=== PATIENT | male | born 1975 | race American Indian/Alaskan Native ===

== ENCOUNTER 2018-10-10 14:46 | Inpatient (IN) | payer MEDICAID, OTHER ==
[2018-10-10] MEDS ORDERED: NORMODYNE IV ONE (15:10)
[2018-10-10 15:14] LABS: Hematocrit 24.9 % (35.5-45.6); Hemoglobin 8.1 gm/dl (11.8-15.2); Mean Corpuscular HGB Conc 33 % (32-34); Mean Corpuscular Volume 105 fl (84-94); Red Blood Count 2.38 M/mm3 (3.65-5.03)
--- NOTE | 2018-10-10 15:17 | Emergency Department Report ---
ED Neuro Deficit HPI - General Chief Complaint: Neuro Symptoms/Deficit Stated Complaint: POSSIBLE STROKE Time Seen by Provider: 10/10/18 14:47 Source: EMS Mode of arrival: Stretcher Limitations: Other - History of Present Illness Initial Comments: Mr. Shelley is a 42-year-old male with history of CVA, hypertension presents with altered mental status difficulty with speech. Patient is able to say him name. Able to say yes or no. Hx of HTN, Hx of CVA 6 months ago. Hx otherwise limited. Presumed to be last normal 15 minutes prior to arrival 2:30 pm Significant other came to the bedside. He is able to give history. Patient's mother was in the home. Mother told SO that Mr. Jimenez did not look well. His eyes were bulging. He has persistent speech difficulty and facial droop after being treated for CVA at [facility]. Has as history of HIV and hypertension for which he does not take any medications. He does smoke tobacco. He does smoke marijuana. -: This morning, unknown Location: speech, other (face) History of same: Yes Place: home Severity: severe Context: sudden onset Associated Symptoms: other (patient unable to provide information) - Related Data Home Medications: Home Medications Medication Instructions Recorded Confirmed Last Taken Acetaminophen [Tylenol] 1,000 mg PO Q6HR 10/10/18 10/10/18 Unknown Amlodipine Besylate [Norvasc] 10 mg PO QDAY 10/10/18 10/10/18 Unknown Aspirin [Adult Aspirin] 81 mg PO DAILY 10/10/18 10/10/18 Unknown Atorvastatin [Lipitor Tab] 80 mg PO DAILY 10/10/18 10/10/18 Unknown Losartan [Cozaar] 100 mg PO QDAY 10/10/18 10/10/18 Unknown Multivitamin [Multiple Vitamins] 1 each PO DAILY 10/10/18 10/10/18 Unknown hydroCHLOROthiazide [HCTZ] 25 mg PO QDAY 10/10/18 10/10/18 Unknown Allergies/Adverse Reactions: Allergies Allergy/AdvReac Type Severity Reaction Status Date / Time Sulfa (Sulfonamide Allergy Unknown Verified 10/10/18 16:54 Antibiotics) ED Review of Systems ROS: Stated complaint: POSSIBLE STROKE Other details as noted in HPI Comment: Unobtainable due to pts medical conditions (severe respiratory distress) ED Past Medical Hx - Past Medical History Previous Medical History?: Yes Hx Hypertension: Yes Hx CVA: Yes Hx HIV: Yes - Surgical History Additional Surgical History: abdominal surgery - Social History Smoking Status: Current Every Day Smoker Substance Use Type: Alcohol, Marijuana - Medications Home Medications: Home Medications Medication Instructions Recorded Confirmed Last Taken Type Acetaminophen [Tylenol] 1,000 mg PO Q6HR 10/10/18 10/10/18 Unknown History Amlodipine Besylate [Norvasc] 10 mg PO QDAY 10/10/18 10/10/18 Unknown History Aspirin [Adult Aspirin] 81 mg PO DAILY 10/10/18 10/10/18 Unknown History Atorvastatin [Lipitor Tab] 80 mg PO DAILY 10/10/18 10/10/18 Unknown History Losartan [Cozaar] 100 mg PO QDAY 10/10/18 10/10/18 Unknown History Multivitamin [Multiple Vitamins] 1 each PO DAILY 10/10/18 10/10/18 Unknown History hydroCHLOROthiazide [HCTZ] 25 mg PO QDAY 10/10/18 10/10/18 Unknown History ED Neuro Physical Exam - General Limitations: Altered Mental Status, Other General appearance: in distress (+WOB speech hesitation) Suspected Stroke: Yes - Head Head exam: Present: atraumatic, normocephalic - Eye Eye exam: Present: normal appearance Pupils: Present: normal accommodation - ENT ENT exam: Present: mucous membranes dry, other (dried blood on mouth) - Neck Neck exam: Present: normal inspection, full ROM - Respiratory Respiratory exam: Present: respiratory distress, decreased breath sounds. Absent: wheezes, rales, rhonchi - Cardiovascular Cardiovascular Exam: Present: normal rhythm, tachycardia. Absent: systolic murmur, diastolic murmur - GI/Abdominal GI/Abdominal exam: Present: soft, other (abdominal central large scar). Absent: distended, tenderness, guarding, rebound - Neurological Exam Neurological exam: Present: other (odd affect, ) - NIHSS Assessment Interval: Baseline 1a. Level of Consciousness: arousable/minor stimuli 1b. LOC Questions: answers 1 question correctly 1c. LOC Commands: performs tasks correctly 2. Best Gaze: normal 3. Visual: no visual loss 4. Facial Palsy: partial paralysis 5b. Motor Arm Right: drift 5a. Motor Arm Left: drift 6a. Motor Leg Left: drift 6b. Motor Leg Right: drift 7. Limb Ataxia: absent 8. Sensory: normal 9. Best Language: mild/moderate aphasia 10. Dysarthria: mild/moderate dysarthria 11. Extinction/Inattention: no abnormality Total Score: 10 Stroke Severity: Moderate Stroke - Psychiatric Psychiatric exam: Present: anxious, other (odd affect) - Skin Skin exam: Present: dry ED Course Vital Signs 10/10/18 10/10/18 10/10/18 15:06 15:35 15:45 Temperature Pulse Rate 138 H 87 Respiratory 45 H 39 H Rate Blood Pressure 236/167 Blood Pressure [Right] O2 Sat by Pulse 100 100 Oximetry 10/10/18 10/10/18 10/10/18 15:57 16:00 16:15 Temperature 98.9 F Pulse Rate 89 91 H 95 H Respiratory 24 28 H 39 H Rate Blood Pressure 149/113 158/118 Blood Pressure 148/107 [Right] O2 Sat by Pulse 100 100 100 Oximetry 10/10/18 10/10/18 10/10/18 16:30 16:45 17:00 Temperature Pulse Rate 99 H 103 H 104 H Respiratory 42 H 44 H 37 H Rate Blood Pressure 159/122 164/127 165/118 Blood Pressure [Right] O2 Sat by Pulse 100 100 Oximetry 10/10/18 10/10/18 17:15 17:30 Temperature Pulse Rate 106 H 108 H Respiratory 35 H 37 H Rate Blood Pressure 161/125 160/115 Blood Pressure [Right] O2 Sat by Pulse 100 100 Oximetry - Intubation Time Out Performed: Yes Sedative: Etomidate Paralytic: Rocuronium Laryngoscope: Solo Size: 4 ET Tube Size: 7.5 Tube Secured Depth (cm): 22 Tube Secured Location: lips Tube Placement Confirmation: visualized tube passing t, equal breath sounds bilat, no breath sounds over epi, confirmation by capnometr Patient Tolerated Procedure: well Intubation Complications: none - Lab Data Result diagrams: 10/10/18 15:02 10/10/18 15:02 Lab Results 10/10/18 10/10/18 10/10/18 Range/Units 15:02 15:02 15:02 WBC 9.3 (4.5-11.0) K/mm3 RBC 2.38 L (3.65-5.03) M/mm3 Hgb 8.1 L (11.8-15.2) gm/dl Hct 24.9 L (35.5-45.6) % MCV 105 H (84-94) fl MCH 34 H (28-32) pg MCHC 33 (32-34) % RDW 21.4 H (13.2-15.2) % Plt Count 20 L (140-440) K/mm3 Add Manual Diff Complete Total Counted 100 Seg Neuts % (Manual) 84.0 H (40.0-70.0) % Band Neutrophils % 0 % Lymphocytes % (Manual) 8.0 L (13.4-35.0) % Reactive Lymphs % (Man) 0 % Monocytes % (Manual) 7.0 (0.0-7.3) % Eosinophils % (Manual) 1.0 (0.0-4.3) % Basophils % (Manual) 0 (0.0-1.8) % Metamyelocytes % 0 % Myelocytes % 0 % Promyelocytes % 0 % Blast Cells % 0 % Nucleated RBC % Not Reportable Seg Neutrophils # Man 7.8 H (1.8-7.7) K/mm3 Band Neutrophils # 0.0 K/mm3 Lymphocytes # (Manual) 0.7 L (1.2-5.4) K/mm3 Abs React Lymphs (Man) 0.0 K/mm3 Monocytes # (Manual) 0.7 (0.0-0.8) K/mm3 Eosinophils # (Manual) 0.1 (0.0-0.4) K/mm3 Basophils # (Manual) 0.0 (0.0-0.1) K/mm3 Metamyelocytes # 0.0 K/mm3 Myelocytes # 0.0 K/mm3 Promyelocytes # 0.0 K/mm3 Blast Cells # 0.0 K/mm3 WBC Morphology Not Reportable Hypersegmented Neuts Not Reportable Hyposegmented Neuts Not Reportable Hypogranular Neuts Not Reportable Smudge Cells Not Reportable Toxic Granulation Not Reportable Toxic Vacuolation Not Reportable Dohle Bodies Not Reportable Pelger-Huet Anomaly Not Reportable Kartik Rods Not Reportable Platelet Estimate Appears decreased Clumped Platelets Not Reportable Plt Clumps, EDTA Not Reportable Large Platelets Not Reportable Giant Platelets Not Reportable Platelet Satelliting Not Reportable Plt Morphology Comment Not Reportable RBC Morphology Not Reportable Dimorphic RBCs Not Reportable Polychromasia Not Reportable Hypochromasia Not Reportable Poikilocytosis 1+ Anisocytosis 1+ Microcytosis Not Reportable Macrocytosis 1+ Spherocytes Few Pappenheimer Bodies Not Reportable Sickle Cells Not Reportable Target Cells Not Reportable Tear Drop Cells Not Reportable Ovalocytes Not Reportable Helmet Cells Not Reportable [place] Bodies Not Reportable [place] Rings Not Reportable [place] Cells Not Reportable Bite Cells Not Reportable Crenated Cell Not Reportable Elliptocytes Not Reportable Acanthocytes (Spur) Not Reportable Rouleaux Not Reportable Hemoglobin C Crystals Not Reportable Schistocytes Few Malaria parasites Not Reportable Jv Bodies Not Reportable Hem Pathologist Commnt No PT 16.2 H (12.2-14.9) Sec. INR 1.22 H (0.87-1.13) APTT 27.9 (24.2-36.6) Sec. Thrombin Time (15.1-19.6) Sec. POC ABG pH (7.35-7.45) POC ABG pCO2 (35-45) POC ABG pO2 (80-105) POC ABG HCO3 POC ABG Total CO2 POC ABG O2 Sat POC ABG Base Excess FiO2 % Sodium 136 L (137-145) mmol/L Potassium 3.7 (3.6-5.0) mmol/L Chloride 88.2 L (98-107) mmol/L Carbon Dioxide 8 L* (22-30) mmol/L Anion Gap 44 mmol/L BUN 70 H (9-20) mg/dL Creatinine 5.6 H (0.8-1.5) mg/dL Estimated GFR 14 ml/min BUN/Creatinine Ratio 13 % Glucose 331 H (75-100) mg/dL POC Glucose (70-105) Lactic Acid (0.7-2.0) mmol/L Calcium 9.9 (8.4-10.2) mg/dL Total Bilirubin (0.1-1.2) mg/dL Direct Bilirubin (0-0.2) mg/dL Indirect Bilirubin mg/dL AST (5-40) units/L ALT (7-56) units/L Alkaline Phosphatase (35-129) units/L Ammonia (25-60) umol/L Lactate Dehydrogenase (91-180) units/L Troponin T 0.298 H* (0.00-0.029) ng/mL NT-Pro-B Natriuret Pep (0-450) pg/mL Total Protein (6.3-8.2) g/dL Albumin (3.9-5) g/dL Albumin/Globulin Ratio % Triglycerides 329 H (2-149) mg/dL Cholesterol 234 H (50-199) mg/dL LDL Cholesterol Direct 139 H (50-130) mg/dL HDL Cholesterol 42 (40-59) mg/dL Cholesterol/HDL Ratio 5.57 % Blood Type Antibody Screen 10/10/18 10/10/18 10/10/18 Range/Units 15:02 15:05 15:29 WBC (4.5-11.0) K/mm3 RBC (3.65-5.03) M/mm3 Hgb (11.8-15.2) gm/dl Hct (35.5-45.6) % MCV (84-94) fl MCH (28-32) pg MCHC (32-34) % RDW (13.2-15.2) % Plt Count (140-440) K/mm3 Add Manual Diff Total Counted Seg Neuts % (Manual) (40.0-70.0) % Band Neutrophils % % Lymphocytes % (Manual) (13.4-35.0) % Reactive Lymphs % (Man) % Monocytes % (Manual) (0.0-7.3) % Eosinophils % (Manual) (0.0-4.3) % Basophils % (Manual) (0.0-1.8) % Metamyelocytes % % Myelocytes % % Promyelocytes % % Blast Cells % % Nucleated RBC % Seg Neutrophils # Man (1.8-7.7) K/mm3 Band Neutrophils # K/mm3 Lymphocytes # (Manual) (1.2-5.4) K/mm3 Abs React Lymphs (Man) K/mm3 Monocytes # (Manual) (0.0-0.8) K/mm3 Eosinophils # (Manual) (0.0-0.4) K/mm3 Basophils # (Manual) (0.0-0.1) K/mm3 Metamyelocytes # K/mm3 Myelocytes # K/mm3 Promyelocytes # K/mm3 Blast Cells # K/mm3 WBC Morphology Hypersegmented Neuts Hyposegmented Neuts Hypogranular Neuts Smudge Cells Toxic Granulation Toxic Vacuolation Dohle Bodies Pelger-Huet Anomaly Kartik Rods Platelet Estimate Clumped Platelets Plt Clumps, EDTA Large Platelets Giant Platelets Platelet Satelliting Plt Morphology Comment RBC Morphology Dimorphic RBCs Polychromasia Hypochromasia Poikilocytosis Anisocytosis Microcytosis Macrocytosis Spherocytes Pappenheimer Bodies Sickle Cells Target Cells Tear Drop Cells Ovalocytes Helmet Cells [place] Bodies [place] Rings Jani Cells Bite Cells Crenated Cell Elliptocytes Acanthocytes (Spur) Rouleaux Hemoglobin C Crystals Schistocytes Malaria parasites Jv Bodies Hem Pathologist Commnt PT (12.2-14.9) Sec. INR (0.87-1.13) APTT (24.2-36.6) Sec. Thrombin Time 16.9 (15.1-19.6) Sec. POC ABG pH (7.35-7.45) POC ABG pCO2 (35-45) POC ABG pO2 (80-105) POC ABG HCO3 POC ABG Total CO2 POC ABG O2 Sat POC ABG Base Excess FiO2 % Sodium (137-145) mmol/L Potassium (3.6-5.0) mmol/L Chloride (98-107) mmol/L Carbon Dioxide (22-30) mmol/L Anion Gap mmol/L BUN (9-20) mg/dL Creatinine (0.8-1.5) mg/dL Estimated GFR ml/min BUN/Creatinine Ratio % Glucose (75-100) mg/dL POC Glucose 274 H (70-105) Lactic Acid (0.7-2.0) mmol/L Calcium (8.4-10.2) mg/dL Total Bilirubin (0.1-1.2) mg/dL Direct Bilirubin (0-0.2) mg/dL Indirect Bilirubin mg/dL AST (5-40) units/L ALT (7-56) units/L Alkaline Phosphatase (35-129) units/L Ammonia (25-60) umol/L Lactate Dehydrogenase (91-180) units/L Troponin T (0.00-0.029) ng/mL NT-Pro-B Natriuret Pep (0-450) pg/mL Total Protein (6.3-8.2) g/dL Albumin (3.9-5) g/dL Albumin/Globulin Ratio % Triglycerides (2-149) mg/dL Cholesterol (50-199) mg/dL LDL Cholesterol Direct (50-130) mg/dL HDL Cholesterol (40-59) mg/dL Cholesterol/HDL Ratio % Blood Type A POSITIVE Antibody Screen Negative 10/10/18 10/10/18 10/10/18 Range/Units 15:42 15:42 15:42 WBC (4.5-11.0) K/mm3 RBC (3.65-5.03) M/mm3 Hgb (11.8-15.2) gm/dl Hct (35.5-45.6) % MCV (84-94) fl MCH (28-32) pg MCHC (32-34) % RDW (13.2-15.2) % Plt Count (140-440) K/mm3 Add Manual Diff Total Counted Seg Neuts % (Manual) (40.0-70.0) % Band Neutrophils % % Lymphocytes % (Manual) (13.4-35.0) % Reactive Lymphs % (Man) % Monocytes % (Manual) (0.0-7.3) % Eosinophils % (Manual) (0.0-4.3) % Basophils % (Manual) (0.0-1.8) % Metamyelocytes % % Myelocytes % % Promyelocytes % % Blast Cells % % Nucleated RBC % Seg Neutrophils # Man (1.8-7.7) K/mm3 Band Neutrophils # K/mm3 Lymphocytes # (Manual) (1.2-5.4) K/mm3 Abs React Lymphs (Man) K/mm3 Monocytes # (Manual) (0.0-0.8) K/mm3 Eosinophils # (Manual) (0.0-0.4) K/mm3 Basophils # (Manual) (0.0-0.1) K/mm3 Metamyelocytes # K/mm3 Myelocytes # K/mm3 Promyelocytes # K/mm3 Blast Cells # K/mm3 WBC Morphology Hypersegmented Neuts Hyposegmented Neuts Hypogranular Neuts Smudge Cells Toxic Granulation Toxic Vacuolation Dohle Bodies Pelger-Huet Anomaly Kartik Rods Platelet Estimate Clumped Platelets Plt Clumps, EDTA Large Platelets Giant Platelets Platelet Satelliting Plt Morphology Comment RBC Morphology Dimorphic RBCs Polychromasia Hypochromasia Poikilocytosis Anisocytosis Microcytosis Macrocytosis Spherocytes Pappenheimer Bodies Sickle Cells Target Cells Tear Drop Cells Ovalocytes Helmet Cells [place] Bodies [place] Rings [place] Cells Bite Cells Crenated Cell Elliptocytes Acanthocytes (Spur) Rouleaux Hemoglobin C Crystals Schistocytes Malaria parasites Jv Bodies Hem Pathologist Commnt PT (12.2-14.9) Sec. INR (0.87-1.13) APTT (24.2-36.6) Sec. Thrombin Time (15.1-19.6) Sec. POC ABG pH (7.35-7.45) POC ABG pCO2 (35-45) POC ABG pO2 (80-105) POC ABG HCO3 POC ABG Total CO2 POC ABG O2 Sat POC ABG Base Excess FiO2 % Sodium (137-145) mmol/L Potassium (3.6-5.0) mmol/L Chloride (98-107) mmol/L Carbon Dioxide (22-30) mmol/L Anion Gap mmol/L BUN (9-20) mg/dL Creatinine (0.8-1.5) mg/dL Estimated GFR ml/min BUN/Creatinine Ratio % Glucose (75-100) mg/dL POC Glucose (70-105) Lactic Acid 17.90 H* (0.7-2.0) mmol/L Calcium (8.4-10.2) mg/dL Total Bilirubin 1.50 H (0.1-1.2) mg/dL Direct Bilirubin 0.4 H (0-0.2) mg/dL Indirect Bilirubin 1.1 mg/dL AST 105 H (5-40) units/L ALT 17 (7-56) units/L Alkaline Phosphatase 99 (35-129) units/L Ammonia 50.0 (25-60) umol/L Lactate Dehydrogenase (91-180) units/L Troponin T (0.00-0.029) ng/mL NT-Pro-B Natriuret Pep 43210 H (0-450) pg/mL Total Protein 9.2 H (6.3-8.2) g/dL Albumin 4.4 (3.9-5) g/dL Albumin/Globulin Ratio 0.9 % Triglycerides (2-149) mg/dL Cholesterol (50-199) mg/dL LDL Cholesterol Direct (50-130) mg/dL HDL Cholesterol (40-59) mg/dL Cholesterol/HDL Ratio % Blood Type Antibody Screen 10/10/18 10/10/18 10/10/18 Range/Units 16:22 16:54 17:08 WBC (4.5-11.0) K/mm3 RBC (3.65-5.03) M/mm3 Hgb (11.8-15.2) gm/dl Hct (35.5-45.6) % MCV (84-94) fl MCH (28-32) pg MCHC (32-34) % RDW (13.2-15.2) % Plt Count (140-440) K/mm3 Add Manual Diff Total Counted Seg Neuts % (Manual) (40.0-70.0) % Band Neutrophils % % Lymphocytes % (Manual) (13.4-35.0) % Reactive Lymphs % (Man) % Monocytes % (Manual) (0.0-7.3) % Eosinophils % (Manual) (0.0-4.3) % Basophils % (Manual) (0.0-1.8) % Metamyelocytes % % Myelocytes % % Promyelocytes % % Blast Cells % % Nucleated RBC % Seg Neutrophils # Man (1.8-7.7) K/mm3 Band Neutrophils # K/mm3 Lymphocytes # (Manual) (1.2-5.4) K/mm3 Abs React Lymphs (Man) K/mm3 Monocytes # (Manual) (0.0-0.8) K/mm3 Eosinophils # (Manual) (0.0-0.4) K/mm3 Basophils # (Manual) (0.0-0.1) K/mm3 Metamyelocytes # K/mm3 Myelocytes # K/mm3 Promyelocytes # K/mm3 Blast Cells # K/mm3 WBC Morphology Hypersegmented Neuts Hyposegmented Neuts Hypogranular Neuts Smudge Cells Toxic Granulation Toxic Vacuolation Dohle Bodies Pelger-Huet Anomaly Kartik Rods Platelet Estimate Clumped Platelets Plt Clumps, EDTA Large Platelets Giant Platelets Platelet Satelliting Plt Morphology Comment RBC Morphology Dimorphic RBCs Polychromasia Hypochromasia Poikilocytosis Anisocytosis Microcytosis Macrocytosis Spherocytes Pappenheimer Bodies Sickle Cells Target Cells Tear Drop Cells Ovalocytes Helmet Cells [place] Bodies [place] Rings Jani Cells Bite Cells Crenated Cell Elliptocytes Acanthocytes (Spur) Rouleaux Hemoglobin C Crystals Schistocytes Malaria parasites Jv Bodies Hem Pathologist Commnt PT (12.2-14.9) Sec. INR (0.87-1.13) APTT (24.2-36.6) Sec. Thrombin Time (15.1-19.6) Sec. POC ABG pH 7.374 (7.35-7.45) POC ABG pCO2 9.0 L (35-45) POC ABG pO2 140 H (80-105) POC ABG HCO3 5.3 POC ABG Total CO2 6 POC ABG O2 Sat 99 POC ABG Base Excess -20 FiO2 21 % Sodium (137-145) mmol/L Potassium (3.6-5.0) mmol/L Chloride (98-107) mmol/L Carbon Dioxide (22-30) mmol/L Anion Gap mmol/L BUN (9-20) mg/dL Creatinine (0.8-1.5) mg/dL Estimated GFR ml/min BUN/Creatinine Ratio % Glucose (75-100) mg/dL POC Glucose (70-105) Lactic Acid 14.80 H* (0.7-2.0) mmol/L Calcium (8.4-10.2) mg/dL Total Bilirubin (0.1-1.2) mg/dL Direct Bilirubin (0-0.2) mg/dL Indirect Bilirubin mg/dL AST (5-40) units/L ALT (7-56) units/L Alkaline Phosphatase (35-129) units/L Ammonia (25-60) umol/L Lactate Dehydrogenase 2342 H (91-180) units/L Troponin T (0.00-0.029) ng/mL NT-Pro-B Natriuret Pep (0-450) pg/mL Total Protein (6.3-8.2) g/dL Albumin (3.9-5) g/dL Albumin/Globulin Ratio % Triglycerides (2-149) mg/dL Cholesterol (50-199) mg/dL LDL Cholesterol Direct (50-130) mg/dL HDL Cholesterol (40-59) mg/dL Cholesterol/HDL Ratio % Blood Type Antibody Screen 10/10/18 17:56 EKG obtained 1506 Rate 140 bpm sinus tachycardia normal axis normal intervals LVH with repolarization abnormality ST elevation in leads V2 V3 - Medical Decision Making Mr. George presents with acute altered mental status and respiratory distress. With persistent stroke symptoms and limited history, code stroke was initiated. Teleneurologist Dr Hill graciously evaluated patient. After initial CT scan it was obvious the patient had a metabolic/infectious process as the cause of his symptoms. With history of previous stroke patient has persistent facial paralysis and dysarthria. Patient has acute metabolic encephalopathy with uremia, acute kidney injury, severe anion gap metabolic acidosis with lactic acidosis. Consideration of sepsis leading to renal failure vs acute on chronic kidney injury with hx of severe hypertension and cardiovascular disease Will treat for sepsis with SIRS evident. IVF and broad spectrum antibiotics initiated in the ED. Notable labs include BNP 70,000, troponin 0.29 markedly elevated BUN/creatinine severely low bicarbonate Due to severe work of breathing and decreased responsiveness, Mr. Jimenez was intubated during the ED course. Admitted to ICU in guarded condtion. Critical Care Time: Yes Critical care time in (mins) excluding proc time.: 60 Critical care attestation.: If time is entered above; I have spent that time in minutes in the direct care of this critically ill patient, excluding procedure time. 60 minutes of critical care time excluding procedures were used in the care of the patient. Patient required multiple assessments and interventions. I reviewed the electronic medical record. I spoke with consultants involved in the care of the patient. ED Disposition Clinical Impression: Sepsis, Acute kidney injury, Lactic acidosis, Metabolic acidosis, Hypertensive emergency, HIV (human immunodeficiency virus infection), History of CVA (cerebrovascular accident), Acute respiratory failure Disposition: 09 OP ADMIT IP TO THIS HOSP Is pt being admited?: Yes Does the pt Need Aspirin: No Condition: Stable
[2018-10-10 15:30] LABS: INR 1.22 (0.87-1.13); Partial Thromboplastin Time 27.9 Sec. (24.2-36.6)
[2018-10-10 15:41] LABS: Red Cell Distribution Width 21.4 % (13.2-15.2)
[2018-10-10 15:46] LABS: Calcium 9.9 mg/dL (8.4-10.2)
[2018-10-10 15:57] LABS: Basophils % (Manual) 0 % (0.0-1.8); Total Cells Counted 100
[2018-10-10 16:02] LABS: Platelet Estimate Appears Decreased
[2018-10-10 16:03] LABS: Anisocytosis 1+; Macrocytosis 1+; Poikilocytosis 1+; Schistocytes Few; Spherocytes Few
[2018-10-10 16:04] LABS: Platelet Count 20 K/mm3 (140-440)
[2018-10-10 16:19] LABS: Chol/HDL Ratio 5.57 %
[2018-10-10 16:26] LABS: Albumin 4.4 g/dL (3.9-5); Bilirubin,Direct 0.4 mg/dL (0-0.2)
[2018-10-10] MEDS ORDERED: NACL 0.9% 1000 ML IV ONE (16:48)
[2018-10-10] MEDS ORDERED: TO ASSIGN FLUID IV ONE (16:51)
[2018-10-10] MEDS ORDERED: BACTRIM IV ONE (16:51)
[2018-10-10] MEDS ORDERED: ZOSYN/NS 4.5GM/100ML 4.5 GM/100 ML VIAL IV ONE (16:56)
[2018-10-10] MEDS ORDERED: LEVAQUIN 750MG/150ML 750 MG/150 ML BAG IV SCH (17:00)
--- NOTE | 2018-10-10 17:42 | Cat Scan Report ---
FINAL REPORT EXAM: CT HEAD/BRAIN WO CON HISTORY: neuro deficits < 6hrs or sx present upon awakening TECHNIQUE: CT examination of the head without IV contrast PRIORS: None. FINDINGS: There are multiple regions of encephalomalacia and volume loss suggesting chronic infarcts. These are noted in the anterior basal ganglia bilaterally as well as the superior middle left basal ganglia ex tending superiorly into the left periventricular white matter. The left anterior basal ganglia infarc t extends into the left external capsule. No acute air-fluid level visualized in the included air-filled sinuses. Bone windows demonstrate no acute fracture. The brain is without mass, mass effect, or hemorrhage. No definite CT evidence of acute infarct. Above described infarcts appear chronic but could be confir med with follow-up MRI. There is no extra-axial intracranial bleed, brain bleed, or midline shift. The ventricles and sulci are age-appropriate. IMPRESSION: Bilateral infarcts appear chronic which could be confirmed with follow-up MRI. No definite CT evidenc e of acute infarction. Russell operation applications support lead verbally Relayed results to Dr. Lipscomb at 3:11PM EST on 10/10/18
[2018-10-10] MEDS ORDERED: BACTRIM 350 MG in D5W 500 ML IV ONE (17:45)
[2018-10-10] MEDS ORDERED: ARTIFICIAL TEARS OPHTH OINT OU PRN (17:53)
[2018-10-10] MEDS ORDERED: VASELINE LIP THERAPY TP PRN (17:53)
[2018-10-10] MEDS ORDERED: DIPRIVAN 10 MG/ML 1,000 MG/100 ML BOTTLE IV ONE (17:57)
--- NOTE | 2018-10-10 17:59 | XRay Report ---
FINAL REPORT EXAM: XR CHEST 1V AP HISTORY: tachypnea TECHNIQUE: Frontal portable examination of the chest PRIORS: None FINDINGS: Oblique patient position limits the examination. Suggestion of spinal curvature with left apex in upp er thoracic spine and right apex in lumbar spine. Left CP angle not completely imaged, limiting the examination for detection of left pleural effusion. The cardiac silhouette size is slightly enlarged without evidence of vascular congestion or pulmonary edema. There is no pulmonary consolidation, right pleural effusion, or pneumothorax. The regional skeleton is without acute pathology. IMPRESSION: No acute pulmonary disease in the visualized chest Slight cardiomegaly
[2018-10-10] MEDS ORDERED: LEVAQUIN 750MG/150ML 750 MG/150 ML BAG IV ONE (18:00)
[2018-10-10] MEDS ORDERED: ZEMURON IV ONE ×2 (18:05→21:15)
[2018-10-10] MEDS ORDERED: DIPRIVAN 10 MG/ML IV ONE (18:06)
[2018-10-10] MEDS ORDERED: AMIDATE IV ONE ×2 (18:06→21:15)
[2018-10-10] MEDS: DIPRIVAN 10 MG/ML 1,000 MG/100 ML BOTTLE IV SCH (18:07)
--- NOTE | 2018-10-10 18:08 | History and Physical Report ---
History of Present Illness Chief complaint: confused History of present illness: 43 YO Male with HIV, HTN, CVA, Nicotine Dependence, Malnutrition presents to ED for evaluation. Pt is confused/lethargic and unable to provide history. Pt history taken from ED staff, as well as family. Pt reported to have increased confusion this morning. Pt transported to [facility] for further care and evaluation. Pt seen and evaluated in ED and found to be in distress and unable to protect his airway. Pt intubated at time of my exam. Pt found to have Acute Respiratory Failure, Encephalopathy, Acidosis. Pt initiated on Sepsis protocol and admitted to ICU. Pulmonary team consulted in ED. NO reports of feve,r chills, CP, palpitations, NVD, Syncope, Trauma, Productive cough, hemoptysis, or recent ill contacts. Past History Past Medical History: HIV/AIDS, hypertension, stroke Past Surgical History: No surgical history, Other (reviewed) Social history: single, smoking. denies: alcohol abuse, prescription drug abuse Family history: hypertension Medications and Allergies Allergies Allergy/AdvReac Type Severity Reaction Status Date / Time Sulfa (Sulfonamide Allergy Unknown Verified 10/10/18 16:54 Antibiotics) Home Medications Medication Instructions Recorded Confirmed Last Taken Type Acetaminophen [Tylenol] 1,000 mg PO Q6HR 10/10/18 10/10/18 Unknown History Amlodipine Besylate [Norvasc] 10 mg PO QDAY 10/10/18 10/10/18 Unknown History Aspirin [Adult Aspirin] 81 mg PO DAILY 10/10/18 10/10/18 Unknown History Atorvastatin [Lipitor Tab] 80 mg PO DAILY 10/10/18 10/10/18 Unknown History Losartan [Cozaar] 100 mg PO QDAY 10/10/18 10/10/18 Unknown History Multivitamin [Multiple Vitamins] 1 each PO DAILY 10/10/18 10/10/18 Unknown History hydroCHLOROthiazide [HCTZ] 25 mg PO QDAY 10/10/18 10/10/18 Unknown History Active Meds: Active Medications Hydrophilic Ointment (Vaseline Lip Therapy) 1 applic TP Q2HR PRN PRN Reason: Dry Lips Trimethoprim/Sulfamethoxazole (350 mg/ Dextrose) 521.875 mls @ 350 mls/hr IV ONCE ONE Stop: 10/10/18 19:14 Levofloxacin/Dextrose (Levaquin 750mg/150ml) 750 mg in 150 mls @ 100 mls/hr IV ONCE ONE Stop: 10/10/18 19:29 Levofloxacin/Dextrose (Levaquin 500mg/100ml) 500 mg in 100 mls @ 100 mls/hr IV Q48H RUBI Propofol (Diprivan 10 Mg/Ml) 1,000 mg in 100 mls @ 2.204 mls/hr IV TITR RUBI; Protocol Last Admin: 10/10/18 18:07 Dose: 5 mcg/kg/min, 2.204 mls/hr Documented by: Multi-Ingred Cream/Lotion/Oil/Oint (Artificial Tears Ophth Oint) 1 applic OU Q4HR PRN PRN Reason: Dry Eye(s) Review of Systems ROS unobtainable: due to endotracheal tube Exam - Constitutional Vitals: Temp Pulse Resp BP Pulse Ox 98.9 F 108 H 37 H 160/115 100 10/10/18 15:57 10/10/18 17:30 10/10/18 17:30 10/10/18 17:30 10/10/18 17:30 General appearance: Present: severe distress - EENT Eyes: Present: miosis - Neck Neck: Present: supple, normal ROM - Respiratory Respiratory effort: labored Respiratory: bilateral: diminished - Cardiovascular Heart Sounds: Present: S1 & S2. Absent: rub, click - Extremities Extremities: pulses symmetrical, No edema Peripheral Pulses: within normal limits - Abdominal General gastrointestinal: Present: soft, non-tender, non-distended, normal bowel sounds Male genitourinary: Present: normal - Integumentary Integumentary: Present: clear, dry, clammy, decreased turgor - Musculoskeletal Musculoskeletal: generalized weakness - Psychiatric Psychiatric: no appropriate mood/affect, no intact judgment & insight, no memory intact - Neurologic Neurologic: CNII-XII intact, moves all extremities, no gait normal Results - Labs CBC & Chem 7: 10/11/18 02:55 10/11/18 03:34 Labs: Abnormal lab results 10/10/18 10/10/18 10/10/18 Range/Units 15:02 15:02 15:02 RBC 2.38 L (3.65-5.03) M/mm3 Hgb 8.1 L (11.8-15.2) gm/dl Hct 24.9 L (35.5-45.6) % MCV 105 H (84-94) fl MCH 34 H (28-32) pg RDW 21.4 H (13.2-15.2) % Plt Count 20 L (140-440) K/mm3 Seg Neuts % (Manual) 84.0 H (40.0-70.0) % Lymphocytes % (Manual) 8.0 L (13.4-35.0) % Seg Neutrophils # Man 7.8 H (1.8-7.7) K/mm3 Lymphocytes # (Manual) 0.7 L (1.2-5.4) K/mm3 PT 16.2 H (12.2-14.9) Sec. INR 1.22 H (0.87-1.13) POC ABG pCO2 (35-45) POC ABG pO2 (80-105) Sodium 136 L (137-145) mmol/L Chloride 88.2 L (98-107) mmol/L Carbon Dioxide 8 L* (22-30) mmol/L BUN 70 H (9-20) mg/dL Creatinine 5.6 H (0.8-1.5) mg/dL Glucose 331 H (75-100) mg/dL POC Glucose (70-105) Lactic Acid (0.7-2.0) mmol/L Total Bilirubin (0.1-1.2) mg/dL Direct Bilirubin (0-0.2) mg/dL AST (5-40) units/L Lactate Dehydrogenase (91-180) units/L Troponin T 0.298 H* (0.00-0.029) ng/mL NT-Pro-B Natriuret Pep (0-450) pg/mL Total Protein (6.3-8.2) g/dL Triglycerides 329 H (2-149) mg/dL Cholesterol 234 H (50-199) mg/dL LDL Cholesterol Direct 139 H (50-130) mg/dL 10/10/18 10/10/18 10/10/18 Range/Units 15:29 15:42 15:42 RBC (3.65-5.03) M/mm3 Hgb (11.8-15.2) gm/dl Hct (35.5-45.6) % MCV (84-94) fl MCH (28-32) pg RDW (13.2-15.2) % Plt Count (140-440) K/mm3 Seg Neuts % (Manual) (40.0-70.0) % Lymphocytes % (Manual) (13.4-35.0) % Seg Neutrophils # Man (1.8-7.7) K/mm3 Lymphocytes # (Manual) (1.2-5.4) K/mm3 PT (12.2-14.9) Sec. INR (0.87-1.13) POC ABG pCO2 (35-45) POC ABG pO2 (80-105) Sodium (137-145) mmol/L Chloride (98-107) mmol/L Carbon Dioxide (22-30) mmol/L BUN (9-20) mg/dL Creatinine (0.8-1.5) mg/dL Glucose (75-100) mg/dL POC Glucose 274 H (70-105) Lactic Acid 17.90 H* (0.7-2.0) mmol/L Total Bilirubin 1.50 H (0.1-1.2) mg/dL Direct Bilirubin 0.4 H (0-0.2) mg/dL AST 105 H (5-40) units/L Lactate Dehydrogenase (91-180) units/L Troponin T (0.00-0.029) ng/mL NT-Pro-B Natriuret Pep 80160 H (0-450) pg/mL Total Protein 9.2 H (6.3-8.2) g/dL Triglycerides (2-149) mg/dL Cholesterol (50-199) mg/dL LDL Cholesterol Direct (50-130) mg/dL 10/10/18 10/10/18 10/10/18 Range/Units 16:22 16:54 17:08 RBC (3.65-5.03) M/mm3 Hgb (11.8-15.2) gm/dl Hct (35.5-45.6) % MCV (84-94) fl MCH (28-32) pg RDW (13.2-15.2) % Plt Count (140-440) K/mm3 Seg Neuts % (Manual) (40.0-70.0) % Lymphocytes % (Manual) (13.4-35.0) % Seg Neutrophils # Man (1.8-7.7) K/mm3 Lymphocytes # (Manual) (1.2-5.4) K/mm3 PT (12.2-14.9) Sec. INR (0.87-1.13) POC ABG pCO2 9.0 L (35-45) POC ABG pO2 140 H (80-105) Sodium (137-145) mmol/L Chloride (98-107) mmol/L Carbon Dioxide (22-30) mmol/L BUN (9-20) mg/dL Creatinine (0.8-1.5) mg/dL Glucose (75-100) mg/dL POC Glucose (70-105) Lactic Acid 14.80 H* (0.7-2.0) mmol/L Total Bilirubin (0.1-1.2) mg/dL Direct Bilirubin (0-0.2) mg/dL AST (5-40) units/L Lactate Dehydrogenase 2342 H (91-180) units/L Troponin T (0.00-0.029) ng/mL NT-Pro-B Natriuret Pep (0-450) pg/mL Total Protein (6.3-8.2) g/dL Triglycerides (2-149) mg/dL Cholesterol (50-199) mg/dL LDL Cholesterol Direct (50-130) mg/dL Assessment and Plan - Patient Problems (1) Sepsis Current Visit: Yes Status: Acute Qualifiers: Sepsis type: sepsis due to unspecified organism Qualified Code(s): A41.9 - Sepsis, unspecified organism Plan to address problem: Pt initiated on sepsis protocol.IV antibiotic therapy,, IVF resuscitation, blood cultures, cbc, cmp, serial lactic acid level, monitor uop q shift, (2) Acute respiratory failure Current Visit: Yes Status: Acute Qualifiers: Respiratory failure complication: hypoxia Qualified Code(s): J96.01 - Acute respiratory failure with hypoxia Plan to address problem: Pt intubated, on vent support, supplemental oxygen, wean vent as tolerated, daily SBT, Sedation holiday, pulmonary team consulted, ABG The high probability of a clinically significant, sudden or life threatening deterioration of the [pulmonary, cardiac, renal, neuro] system(s) required my full and direct attention, intervention and personal management. The aggregate critical care time was [65] minutes. This time is in addition to time spent performing reported procedures but includes the following: [x] Data Review and interpretation [x] Patient assessment and monitoring of vital signs [x] Documentation [x] Medication orders and management (3) Nicotine dependence Current Visit: Yes Status: Acute Qualifiers: Nicotine product type: unspecified Plan to address problem: supportive care, smoking cessation counseling (4) HIV (human immunodeficiency virus infection) Current Visit: Yes Status: Acute Qualifiers: HIV symptom status: symptomatic Qualified Code(s): B20 - Human immunodeficiency virus [HIV] disease Plan to address problem: Continue current therapy, outpatient I/D F/U care, (5) Metabolic acidosis Current Visit: Yes Status: Acute Plan to address problem: IVF resuscitation therapy, repeat bmp, continue supportive care. (6) DVT prophylaxis Current Visit: Yes Status: Acute Plan to address problem: SCD to BLE while in bed
[2018-10-10] MEDS ORDERED: SODIUM CHLORIDE FLUSH SYRINGE 10 ML IV PRN (18:12)
[2018-10-10] MEDS ORDERED: VANCOMYCIN 1,500 MG in NACL 0.9% 500 ML 500 ML IV ONE (18:15)
--- NOTE | 2018-10-10 19:10 | XRay Report ---
FINAL REPORT EXAM: XR CHEST 1V AP HISTORY: ETT placement TECHNIQUE: AP portable view of the chest PRIORS: CXR 10/10/2018 at 2212 hours FINDINGS: Lines, tubes, and devices: Endotracheal tube has been placed terminating 4.5 cm above the hedy. Lungs and pleura: Trachea is normal in position. Lungs are clear of infiltrate, pleural effusion, vas cular congestion, or pneumothorax. No change. Cardiomediastinal silhouette: Cardiac silhouette is borderline prominent but stable. Other: Bony structures are intact. IMPRESSION: Satisfactory ET tube placement. Otherwise no change
[2018-10-10] MEDS: SODIUM CHLORIDE FLUSH SYRINGE 10 ML IV SCH (21:23)
[2018-10-11] MEDS ORDERED: SODIUM BICARBONATE IV ONE (02:38)
[2018-10-11] MEDS ORDERED: SODIUM BICARBONATE IV STA (03:21)
--- NOTE | 2018-10-11 03:27 | XRay Report ---
FINAL REPORT PROCEDURE: XR CHEST 1V AP TECHNIQUE: Chest radiograph anteroposterior view. CPT 93922 HISTORY: follow up respiratory failure COMPARISON: 10/10/2018 FINDINGS: Heart: Normal. Mediastinum/Vessels: Normal. Lungs/Pleural space: Normal. Bony thorax: No acute osseous abnormality. Life support devices: The endotracheal tube ends 3 centimeters above the hedy. A nasogastric tube e nds below the hemidiaphragms. IMPRESSION: There is no evidence of an acute cardiopulmonary process. The endotracheal tube and nasogastric tube are properly positioned..
[2018-10-11 03:31] LABS: Hematocrit 22.9 % (35.5-45.6); Hemoglobin 7.7 gm/dl (11.8-15.2); Mean Corpuscular HGB Conc 34 % (32-34); Mean Corpuscular Volume 98 fl (84-94); Red Blood Count 2.35 M/mm3 (3.65-5.03); Red Cell Distribution Width 19.9 % (13.2-15.2)
[2018-10-11 03:40] LABS: Platelet Count 23 K/mm3 (140-440)
[2018-10-11 03:54] LABS: Albumin 3.4 g/dL (3.9-5); Calcium 7.8 mg/dL (8.4-10.2)
[2018-10-11 04:09] LABS: Calcium 7.9 mg/dL (8.4-10.2)
[2018-10-11 04:28] LABS: Band Neutrophils # (Manual) 0.5 K/mm3; Basophils % (Manual) 0 % (0.0-1.8); Eosinophils % (Manual) 0 % (0.0-4.3); Myelocytes # (Manual) 0.4 K/mm3; Total Cells Counted 100
[2018-10-11 04:29] LABS: Anisocytosis 1+; Burr Cells 2+; Helmet Cells 1+; Ovalocytes 1+; Poikilocytosis 2+; Schistocytes 1+
[2018-10-11 04:31] LABS: Platelet Estimate Appears Decreased
[2018-10-11] MEDS: TYLENOL PO SCH ×3 (05:45→12:22)
--- NOTE | 2018-10-11 09:53 | Progress Note ---
Assessment and Plan Assessment and plan: Acute encephalopathy Neurochecks. consult Neurology Acute resp failure s/p intubated in ED Pulm consulted Vent weaning per protocol HIV/AIDS Details unclear. No previous records available Consult ID Physician for HIV with altered mental status Elevated Creatinine acute vs chronic Baseline unknown Consult Nephrology Metabolic acidosis Start bicarb Thrombocytopenia, currently 23 Monitor Transfuse if less than 20 Hyperkalemia Give kayexalate Hyperlipidemia Hypertension History of stroke Elevated Troponin Likely due to kidney disease Full code status History Interval history: Patient with HIV/AIDS presented with altered mental status, then could not protect airway,intubated in ED Hospitalist Physical - Physical exam Narrative exam: GEN: Not in acute distress, HEENT: Normocephalic, atraumatic, Neck: supple, No JVD Lungs:Clear to auscultation, no wheeze Heart:S1 and S2 regular, no murmurs, rubs or gallop, Abd:soft, non tender, non distended, normal bowel sounds Ext: No edema, no clubbing or cyanosis Neuro:Intubated, sedated - Constitutional Vitals: Temp Pulse Resp BP Pulse Ox 99.4 F 119 H 29 H 160/114 100 10/11/18 08:30 10/11/18 09:00 10/11/18 09:00 10/11/18 09:00 10/11/18 09:00 Results - Labs CBC & Chem 7: 10/11/18 02:55 10/11/18 03:34 Labs: Laboratory Last Values WBC 9.2 K/mm3 (4.5-11.0) 10/11/18 02:55 RBC 2.35 M/mm3 (3.65-5.03) L 10/11/18 02:55 Hgb 7.7 gm/dl (11.8-15.2) L 10/11/18 02:55 Hct 22.9 % (35.5-45.6) L 10/11/18 02:55 MCV 98 fl (84-94) H 10/11/18 02:55 MCH 33 pg (28-32) H 10/11/18 02:55 MCHC 34 % (32-34) 10/11/18 02:55 RDW 19.9 % (13.2-15.2) H 10/11/18 02:55 Plt Count 23 K/mm3 (140-440) L 10/11/18 02:55 Add Manual Diff Complete 10/11/18 02:55 Total Counted 100 10/11/18 02:55 Seg Neuts % (Manual) 75.0 % (40.0-70.0) H 10/11/18 02:55 Band Neutrophils % 5.0 % 10/11/18 02:55 Lymphocytes % (Manual) 11.0 % (13.4-35.0) L 10/11/18 02:55 Reactive Lymphs % (Man) 0 % 10/11/18 02:55 Monocytes % (Manual) 1.0 % (0.0-7.3) 10/11/18 02:55 Eosinophils % (Manual) 0 % (0.0-4.3) 10/11/18 02:55 Basophils % (Manual) 0 % (0.0-1.8) 10/11/18 02:55 Metamyelocytes % 4.0 % 10/11/18 02:55 Myelocytes % 4.0 % 10/11/18 02:55 Promyelocytes % 0 % 10/11/18 02:55 Blast Cells % 0 % 10/11/18 02:55 Nucleated RBC % Not Reportable 10/11/18 02:55 Seg Neutrophils # Man 6.9 K/mm3 (1.8-7.7) 10/11/18 02:55 Band Neutrophils # 0.5 K/mm3 10/11/18 02:55 Lymphocytes # (Manual) 1.0 K/mm3 (1.2-5.4) L 10/11/18 02:55 Abs React Lymphs (Man) 0.0 K/mm3 10/11/18 02:55 Monocytes # (Manual) 0.1 K/mm3 (0.0-0.8) 10/11/18 02:55 Eosinophils # (Manual) 0.0 K/mm3 (0.0-0.4) 10/11/18 02:55 Basophils # (Manual) 0.0 K/mm3 (0.0-0.1) 10/11/18 02:55 Metamyelocytes # 0.4 K/mm3 10/11/18 02:55 Myelocytes # 0.4 K/mm3 10/11/18 02:55 Promyelocytes # 0.0 K/mm3 10/11/18 02:55 Blast Cells # 0.0 K/mm3 10/11/18 02:55 WBC Morphology Not Reportable 10/11/18 02:55 Hypersegmented Neuts Not Reportable 10/11/18 02:55 Hyposegmented Neuts Not Reportable 10/11/18 02:55 Hypogranular Neuts Not Reportable 10/11/18 02:55 Smudge Cells Not Reportable 10/11/18 02:55 Toxic Granulation Not Reportable 10/11/18 02:55 Toxic Vacuolation Not Reportable 10/11/18 02:55 Dohle Bodies Not Reportable 10/11/18 02:55 Pelger-Huet Anomaly Not Reportable 10/11/18 02:55 Kartik Rods Not Reportable 10/11/18 02:55 Platelet Estimate Appears decreased 10/11/18 02:55 Clumped Platelets Not Reportable 10/11/18 02:55 Plt Clumps, EDTA Not Reportable 10/11/18 02:55 Large Platelets Not Reportable 10/11/18 02:55 Giant Platelets Not Reportable 10/11/18 02:55 Platelet Satelliting Not Reportable 10/11/18 02:55 Plt Morphology Comment Not Reportable 10/11/18 02:55 RBC Morphology Not Reportable 10/11/18 02:55 Dimorphic RBCs Not Reportable 10/11/18 02:55 Polychromasia Not Reportable 10/11/18 02:55 Hypochromasia Not Reportable 10/11/18 02:55 Poikilocytosis 2+ 10/11/18 02:55 Anisocytosis 1+ 10/11/18 02:55 Microcytosis Few 10/11/18 02:55 Macrocytosis Not Reportable 10/11/18 02:55 Spherocytes Not Reportable 10/11/18 02:55 Pappenheimer Bodies Not Reportable 10/11/18 02:55 Sickle Cells Not Reportable 10/11/18 02:55 Target Cells Not Reportable 10/11/18 02:55 Tear Drop Cells Not Reportable 10/11/18 02:55 Ovalocytes 1+ 10/11/18 02:55 Helmet Cells 1+ 10/11/18 02:55 Smith-Guys Bodies Not Reportable 10/11/18 02:55 Hale Rings Not Reportable 10/11/18 02:55 Jani Cells 2+ 10/11/18 02:55 Bite Cells Not Reportable 10/11/18 02:55 Crenated Cell Not Reportable 10/11/18 02:55 Elliptocytes Few 10/11/18 02:55 Acanthocytes (Spur) 1+ 10/11/18 02:55 Rouleaux Not Reportable 10/11/18 02:55 Hemoglobin C Crystals Not Reportable 10/11/18 02:55 Schistocytes 1+ 10/11/18 02:55 Malaria parasites Not Reportable 10/11/18 02:55 Jv Bodies Not Reportable 10/11/18 02:55 Hem Pathologist Commnt No 10/11/18 02:55 PT 16.2 Sec. (12.2-14.9) H 10/10/18 15:02 INR 1.22 (0.87-1.13) H 10/10/18 15:02 APTT 27.9 Sec. (24.2-36.6) 10/10/18 15:02 Thrombin Time 16.9 Sec. (15.1-19.6) 10/10/18 15:02 POC ABG pH 7.491 (7.35-7.45) H 10/11/18 05:48 POC ABG pCO2 24.9 (35-45) L 10/11/18 05:48 POC ABG pO2 166 (80-105) H 10/11/18 05:48 POC ABG HCO3 19.1 10/11/18 05:48 POC ABG Total CO2 20 10/11/18 05:48 POC ABG O2 Sat 100 10/11/18 05:48 POC ABG Base Excess -4 10/11/18 05:48 FiO2 40 % 10/11/18 05:48 Sodium 142 mmol/L (137-145) 10/11/18 03:34 Potassium 5.2 mmol/L (3.6-5.0) H 10/11/18 03:34 Chloride 102.6 mmol/L (98-107) 10/11/18 03:34 Carbon Dioxide 16 mmol/L (22-30) L 10/11/18 03:34 Anion Gap 29 mmol/L 10/11/18 03:34 BUN 80 mg/dL (9-20) H 10/11/18 03:34 Creatinine 5.5 mg/dL (0.8-1.5) H 10/11/18 03:34 Estimated GFR 14 ml/min 10/11/18 03:34 BUN/Creatinine Ratio 15 % 10/11/18 03:34 Glucose 63 mg/dL (75-100) L 10/11/18 03:34 POC Glucose 274 (70-105) H 10/10/18 15:29 Lactic Acid 3.80 mmol/L (0.7-2.0) H* 10/11/18 05:47 Calcium 7.9 mg/dL (8.4-10.2) L 10/11/18 03:34 Total Bilirubin 1.90 mg/dL (0.1-1.2) H 10/11/18 02:55 Direct Bilirubin 0.4 mg/dL (0-0.2) H 10/10/18 15:42 Indirect Bilirubin 1.1 mg/dL 10/10/18 15:42 AST 306 units/L (5-40) H 10/11/18 02:55 ALT 89 units/L (7-56) H 10/11/18 02:55 Alkaline Phosphatase 246 units/L (35-129) H 10/11/18 02:55 Ammonia 50.0 umol/L (25-60) 10/10/18 15:42 Lactate Dehydrogenase 2342 units/L (91-180) H 10/10/18 16:54 Troponin T 0.272 ng/mL (0.00-0.029) H* 10/10/18 18:07 NT-Pro-B Natriuret Pep 19937 pg/mL (0-450) H 10/10/18 15:42 Total Protein 6.9 g/dL (6.3-8.2) D 10/11/18 02:55 Albumin 3.4 g/dL (3.9-5) L 10/11/18 02:55 Albumin/Globulin Ratio 1.0 % 10/11/18 02:55 Triglycerides 329 mg/dL (2-149) H 10/10/18 15:02 Cholesterol 234 mg/dL (50-199) H 10/10/18 15:02 LDL Cholesterol Direct 139 mg/dL (50-130) H 10/10/18 15:02 HDL Cholesterol 42 mg/dL (40-59) 10/10/18 15:02 Cholesterol/HDL Ratio 5.57 % 10/10/18 15:02 Blood Type A POSITIVE 10/10/18 15:05 Antibody Screen Negative 10/10/18 15:05
[2018-10-11] MEDS ORDERED: HCTZ PO SCH (10:00)
[2018-10-11] MEDS ORDERED: NON-FORMULARY (Multivitamin [Multiple Vitamins] 1 EACH) PO SCH (10:00)
[2018-10-11] MEDS ORDERED: HALFPRIN EC PO SCH (10:00)
[2018-10-11] MEDS ORDERED: NON-FORMULARY (Losartan [Cozaar] 100 MG) PO SCH (10:00)
[2018-10-11] MEDS ORDERED: NON-FORMULARY (Atorvastatin [Lipitor] 80 MG) PO SCH (10:00)
[2018-10-11] MEDS ORDERED: COZAAR PO SCH (10:00)
[2018-10-11] MEDS: THERAGRAN Tab PO SCH (10:49)
[2018-10-11] MEDS: NORVASC PO SCH (10:49)
[2018-10-11] MEDS: SODIUM CHLORIDE FLUSH SYRINGE 10 ML IV SCH (10:49)
[2018-10-11] MEDS: DIPRIVAN 10 MG/ML 1,000 MG/100 ML BOTTLE IV SCH (10:53)
[2018-10-11] MEDS ORDERED: NACL 0.9% 1000 ML 1,000 ML IV SCH (11:00)
[2018-10-11] MEDS ORDERED: SIMPLE SYRUP FEEDTUBE PRN ×4 (11:33→12:58)
[2018-10-11] MEDS ORDERED: SODIUM BICARBONATE FEEDTUBE PRN ×2 (11:33→12:58)
[2018-10-11] MEDS ORDERED: PANCREAZE DR 10,500 UNIT FEEDTUBE PRN ×2 (11:33→12:58)
--- NOTE | 2018-10-11 12:14 | Consultation ---
History of Present Illness Consult date: 10/11/18 Requesting physician: KATHY POLLARD Reason for consult: other (acute respiratory failure secondary to encephalopathy) History of present illness: 43 y/o male with known HIV but no other medical history at least per report admitted to the ICU after being intubated for acute encephalopathy and concerns for protection of airway. Patient was then started on Diprovan after intubation for tachypnea? This has not helped. Per the nurse, he is more awake and alert off diprovan compared to earlier this am but still does not follow commands. he was found to be in acute renal failure and has not made any urine. No family is currently at bedside but per report, was found down at home and EMS was called. Not intubated until arrival here to the ED. Past History Past Medical History: HIV/AIDS, hypertension, stroke Past Surgical History: No surgical history, Other (reviewed) Social history: single, smoking. denies: alcohol abuse, prescription drug abuse Family history: hypertension Medications and Allergies Allergies Allergy/AdvReac Type Severity Reaction Status Date / Time Sulfa (Sulfonamide Allergy Unknown Verified 10/10/18 16:54 Antibiotics) Home Medications Medication Instructions Recorded Confirmed Last Taken Type Acetaminophen [Tylenol] 1,000 mg PO Q6HR 10/10/18 10/10/18 Unknown History Amlodipine Besylate [Norvasc] 10 mg PO QDAY 10/10/18 10/10/18 Unknown History Aspirin [Adult Aspirin] 81 mg PO DAILY 10/10/18 10/10/18 Unknown History Atorvastatin [Lipitor Tab] 80 mg PO DAILY 10/10/18 10/10/18 Unknown History Losartan [Cozaar] 100 mg PO QDAY 10/10/18 10/10/18 Unknown History Multivitamin [Multiple Vitamins] 1 each PO DAILY 10/10/18 10/10/18 Unknown History hydroCHLOROthiazide [HCTZ] 25 mg PO QDAY 10/10/18 10/10/18 Unknown History Active Meds: Active Medications Acetaminophen (Tylenol) 1,000 mg PO Q6HR [facility] Last Admin: 10/11/18 05:45 Dose: 1,000 mg Documented by: Albuterol (Proventil) 2.5 mg IH Q3HRT PRN PRN Reason: Shortness Of Breath Amlodipine Besylate (Norvasc) 10 mg PO QDAY [facility] Last Admin: 10/11/18 10:49 Dose: 10 mg Documented by: Lipase/Protease/Amylase (Carrie Reed 10,500 Unit) 1 each FEEDTUBE PRN PRN PRN Reason: For Clogged Feeding Tube Atorvastatin Calcium (Lipitor) 80 mg PO QDAY [facility] Last Admin: 10/11/18 10:49 Dose: 80 mg Documented by: Hydrochlorothiazide (Hctz) 25 mg PO QDAY [facility] Last Admin: 10/11/18 10:49 Dose: 25 mg Documented by: Hydrophilic Ointment (Vaseline Lip Therapy) 1 applic TP Q2HR PRN PRN Reason: Dry Lips Levofloxacin/Dextrose (Levaquin 500mg/100ml) 500 mg in 100 mls @ 100 mls/hr IV Q48H RUBI Propofol (Diprivan 10 Mg/Ml) 1,000 mg in 100 mls @ 2.204 mls/hr IV TITR RUBI; Protocol Last Admin: 10/11/18 10:53 Dose: 20 mcg/kg/min, 8.818 mls/hr Documented by: Sodium Chloride (Nacl 0.9% 1000 Ml) 1,000 mls @ 250 mls/hr IV DIRECT [facility] Last Admin: 10/11/18 11:25 Dose: 250 mls/hr Documented by: Losartan Potassium (Cozaar) 100 mg PO QDAY [facility] Last Admin: 10/11/18 10:48 Dose: 100 mg Documented by: Multi-Ingred Cream/Lotion/Oil/Oint (Artificial Tears Ophth Oint) 1 applic OU Q4HR PRN PRN Reason: Dry Eye(s) Multivitamins (Theragran Tab) 1 each PO DAILY [facility] Last Admin: 10/11/18 10:49 Dose: 1 each Documented by: Simple Syrup (Simple Syrup) 15 ml FEEDTUBE PRN PRN PRN Reason: Hypoglycemia Simple Syrup (Simple Syrup) 30 ml FEEDTUBE PRN PRN PRN Reason: Hypoglycemia Sodium Bicarbonate (Sodium Bicarbonate) 325 mg FEEDTUBE PRN PRN PRN Reason: For Clogged Feeding Tube Sodium Chloride (Sodium Chloride Flush Syringe 10 Ml) 10 ml IV BID [facility] Last Admin: 10/11/18 10:49 Dose: 10 ml Documented by: Sodium Chloride (Sodium Chloride Flush Syringe 10 Ml) 10 ml IV PRN PRN PRN Reason: LINE FLUSH Review of Systems ROS unobtainable: due to endotracheal tube, due to mental status Physical Examination Vital signs: Vital Signs Pulse BP Pulse Ox 138 H 236/167 100 10/10/18 15:06 10/10/18 15:06 10/10/18 15:06 General appearance: no acute distress, alert, other (but does not follow commands, he will track) Eyes: non-icteric ENT: other (orally intubated, not on sedation) Neck: supple Effort: mildly labored Ascultation: Bilateral: clear, diminished breath sounds Percussion: Bilateral: not dull Cardiovascular: regular rate and rhythm (sinus tach) Gastrointestinal: normoactive bowel sounds, soft Extremities: no cyanosis, no edema unable to assess Results - Laboratory Findings CBC and BMP: 10/11/18 02:55 10/11/18 03:34 ABG POC ABG pH 7.491 (7.35-7.45) H 10/11/18 05:48 POC ABG pCO2 24.9 (35-45) L 10/11/18 05:48 POC ABG pO2 166 (80-105) H 10/11/18 05:48 POC ABG HCO3 19.1 10/11/18 05:48 POC ABG Total CO2 20 10/11/18 05:48 POC ABG O2 Sat 100 10/11/18 05:48 PT/INR, D-dimer PT 16.2 Sec. (12.2-14.9) H 10/10/18 15:02 INR 1.22 (0.87-1.13) H 10/10/18 15:02 Abnormal lab findings: Abnormal Labs 10/10/18 10/10/18 10/10/18 15:02 15:02 15:02 RBC 2.38 L Hgb 8.1 L Hct 24.9 L MCV 105 H MCH 34 H RDW 21.4 H Plt Count 20 L Seg Neuts % (Manual) 84.0 H Lymphocytes % (Manual) 8.0 L Seg Neutrophils # Man 7.8 H Lymphocytes # (Manual) 0.7 L PT 16.2 H INR 1.22 H POC ABG pH POC ABG pCO2 POC ABG pO2 Sodium 136 L Potassium Chloride 88.2 L Carbon Dioxide 8 L* BUN 70 H Creatinine 5.6 H Glucose 331 H POC Glucose Lactic Acid Calcium Total Bilirubin Direct Bilirubin AST ALT Alkaline Phosphatase Lactate Dehydrogenase Troponin T 0.298 H* NT-Pro-B Natriuret Pep Total Protein Albumin Triglycerides 329 H Cholesterol 234 H LDL Cholesterol Direct 139 H 10/10/18 10/10/18 10/10/18 15:29 15:42 15:42 RBC Hgb Hct MCV MCH RDW Plt Count Seg Neuts % (Manual) Lymphocytes % (Manual) Seg Neutrophils # Man Lymphocytes # (Manual) PT INR POC ABG pH POC ABG pCO2 POC ABG pO2 Sodium Potassium Chloride Carbon Dioxide BUN Creatinine Glucose POC Glucose 274 H Lactic Acid 17.90 H* Calcium Total Bilirubin 1.50 H Direct Bilirubin 0.4 H AST 105 H ALT Alkaline Phosphatase Lactate Dehydrogenase Troponin T NT-Pro-B Natriuret Pep 54445 H Total Protein 9.2 H Albumin Triglycerides Cholesterol LDL Cholesterol Direct 10/10/18 10/10/18 10/10/18 16:22 16:54 17:08 RBC Hgb Hct MCV MCH RDW Plt Count Seg Neuts % (Manual) Lymphocytes % (Manual) Seg Neutrophils # Man Lymphocytes # (Manual) PT INR POC ABG pH POC ABG pCO2 9.0 L POC ABG pO2 140 H Sodium Potassium Chloride Carbon Dioxide BUN Creatinine Glucose POC Glucose Lactic Acid 14.80 H* Calcium Total Bilirubin Direct Bilirubin AST ALT Alkaline Phosphatase Lactate Dehydrogenase 2342 H Troponin T NT-Pro-B Natriuret Pep Total Protein Albumin Triglycerides Cholesterol LDL Cholesterol Direct 10/10/18 10/10/18 10/10/18 18:07 18:24 19:58 RBC Hgb Hct MCV MCH RDW Plt Count Seg Neuts % (Manual) Lymphocytes % (Manual) Seg Neutrophils # Man Lymphocytes # (Manual) PT INR POC ABG pH 7.172 L POC ABG pCO2 POC ABG pO2 533 H Sodium Potassium Chloride Carbon Dioxide BUN Creatinine Glucose POC Glucose Lactic Acid 11.50 H* Calcium Total Bilirubin Direct Bilirubin AST ALT Alkaline Phosphatase Lactate Dehydrogenase Troponin T 0.272 H* NT-Pro-B Natriuret Pep Total Protein Albumin Triglycerides Cholesterol LDL Cholesterol Direct 10/10/18 10/10/18 10/10/18 20:54 20:54 22:43 RBC Hgb Hct MCV MCH RDW Plt Count Seg Neuts % (Manual) Lymphocytes % (Manual) Seg Neutrophils # Man Lymphocytes # (Manual) PT INR POC ABG pH POC ABG pCO2 POC ABG pO2 Sodium Potassium Chloride Carbon Dioxide BUN Creatinine Glucose POC Glucose Lactic Acid 2.90 H* 2.90 H* 4.60 H* Calcium Total Bilirubin Direct Bilirubin AST ALT Alkaline Phosphatase Lactate Dehydrogenase Troponin T NT-Pro-B Natriuret Pep Total Protein Albumin Triglycerides Cholesterol LDL Cholesterol Direct 10/10/18 10/11/18 10/11/18 23:55 02:44 02:55 RBC 2.35 L Hgb 7.7 L Hct 22.9 L MCV 98 H MCH 33 H RDW 19.9 H Plt Count 23 L Seg Neuts % (Manual) 75.0 H Lymphocytes % (Manual) 11.0 L Seg Neutrophils # Man Lymphocytes # (Manual) 1.0 L PT INR POC ABG pH POC ABG pCO2 25.9 L POC ABG pO2 192 H Sodium Potassium Chloride Carbon Dioxide BUN Creatinine Glucose POC Glucose Lactic Acid 5.40 H* Calcium Total Bilirubin Direct Bilirubin AST ALT Alkaline Phosphatase Lactate Dehydrogenase Troponin T NT-Pro-B Natriuret Pep Total Protein Albumin Triglycerides Cholesterol LDL Cholesterol Direct 10/11/18 10/11/18 10/11/18 02:55 03:34 03:34 RBC Hgb Hct MCV MCH RDW Plt Count Seg Neuts % (Manual) Lymphocytes % (Manual) Seg Neutrophils # Man Lymphocytes # (Manual) PT INR POC ABG pH POC ABG pCO2 POC ABG pO2 Sodium Potassium 5.3 H D 5.2 H Chloride Carbon Dioxide 14 L 16 L BUN 74 H 80 H Creatinine 5.4 H 5.5 H Glucose 126 H 63 L POC Glucose Lactic Acid 5.30 H* Calcium 7.8 L D 7.9 L Total Bilirubin 1.90 H Direct Bilirubin AST 306 H ALT 89 H Alkaline Phosphatase 246 H Lactate Dehydrogenase Troponin T NT-Pro-B Natriuret Pep Total Protein Albumin 3.4 L Triglycerides Cholesterol LDL Cholesterol Direct 10/11/18 10/11/18 10/11/18 05:47 05:48 09:56 RBC Hgb Hct MCV MCH RDW Plt Count Seg Neuts % (Manual) Lymphocytes % (Manual) Seg Neutrophils # Man Lymphocytes # (Manual) PT INR POC ABG pH 7.491 H POC ABG pCO2 24.9 L POC ABG pO2 166 H Sodium Potassium Chloride Carbon Dioxide BUN Creatinine Glucose POC Glucose Lactic Acid 3.80 H* 2.60 H* Calcium Total Bilirubin Direct Bilirubin AST ALT Alkaline Phosphatase Lactate Dehydrogenase Troponin T NT-Pro-B Natriuret Pep Total Protein Albumin Triglycerides Cholesterol LDL Cholesterol Direct - Diagnostic Findings Chest x-ray: image reviewed (clear) Assessment and Plan 43 y/o male with acute encephalopathy, acute respiratory failure, and presumed acute vs acute on chronic renal failure. 1. Stop Diuretic and ARB therapy given renal failure 2. Cardene drip for BP control 3. Spoke with renal, who will evaluate as patient may need HD, will order renal ultrasound. Patient is anuric right now. Fluid challenge ordered. 4. Stop sedation 5. follow up MRI results 6. Repeat Chemistry this afternoon at 16:00 7. Overall prognosis is guarded. CCT 31 minutes.
[2018-10-11] MEDS ORDERED: KIONEX PO ONE (13:02)
[2018-10-11] MEDS ORDERED: SODIUM BICARBONATE 150 MEQ in D5W 1,000 ML IV SCH (14:00)
--- NOTE | 2018-10-11 14:13 | Consultation ---
History of Present Illness - Reason for Consult Consult date: 10/11/18 HIV, AMS Requesting physician: AYAZ ELMORE - History of Present Illness 43 y/o male with history of HIV, HTN, CVA 6 months ago at [facility], Nicotine Dependence, Malnutrition; admitted on 10/10/2018 due to AMS (confusion/lethargy) and slurred speech for 24 h. Patient is unable to provide history. Attempted to call family members fro details, left message. Per records he was found down at home and EMS was called. In the ED, temp 98.9-100.6, HR 138, R 45, BP 236/167. WBC 9.3. Hg 8. Plat 20. Creat 5.6. Lactate 17. Glucose 331. CXR neg. CT head showed bilateral chronic ischemic changes. Blood culture 10/10/2018 no growth. Sputum culture no growth. In the ED = found to be in distress and unable to protect his airway. Patient was intubated. Review of Systems: unable to obtain Past History Past Medical History: HIV/AIDS, hypertension, stroke Past Surgical History: No surgical history, Other (reviewed) Social history: single, smoking. denies: alcohol abuse, prescription drug abuse Family history: hypertension Medications and Allergies Allergies Allergy/AdvReac Type Severity Reaction Status Date / Time Sulfa (Sulfonamide Allergy Unknown Verified 10/10/18 16:54 Antibiotics) Home Medications Medication Instructions Recorded Confirmed Last Taken Type Acetaminophen [Tylenol] 1,000 mg PO Q6HR 10/10/18 10/10/18 Unknown History Amlodipine Besylate [Norvasc] 10 mg PO QDAY 10/10/18 10/10/18 Unknown History Aspirin [Adult Aspirin] 81 mg PO DAILY 10/10/18 10/10/18 Unknown History Atorvastatin [Lipitor Tab] 80 mg PO DAILY 10/10/18 10/10/18 Unknown History Losartan [Cozaar] 100 mg PO QDAY 10/10/18 10/10/18 Unknown History Multivitamin [Multiple Vitamins] 1 each PO DAILY 10/10/18 10/10/18 Unknown History hydroCHLOROthiazide [HCTZ] 25 mg PO QDAY 10/10/18 10/10/18 Unknown History Active Meds: Active Medications Acetaminophen (Tylenol) 1,000 mg PO Q6HR RUBI Last Admin: 10/11/18 12:22 Dose: 1,000 mg Documented by: Albuterol (Proventil) 2.5 mg IH Q3HRT PRN PRN Reason: Shortness Of Breath Amlodipine Besylate (Norvasc) 10 mg PO QDAY [facility] Last Admin: 10/11/18 10:49 Dose: 10 mg Documented by: Lipase/Protease/Amylase (Carrie Reed 10,500 Unit) 1 each FEEDTUBE PRN PRN PRN Reason: For Clogged Feeding Tube Lipase/Protease/Amylase (Pancrebecka Reed 10,500 Unit) 1 each FEEDTUBE PRN PRN PRN Reason: For Clogged Feeding Tube Atorvastatin Calcium (Lipitor) 80 mg PO QDAY [facility] Last Admin: 10/11/18 10:49 Dose: 80 mg Documented by: Hydrophilic Ointment (Vaseline Lip Therapy) 1 applic TP Q2HR PRN PRN Reason: Dry Lips Levofloxacin/Dextrose (Levaquin 500mg/100ml) 500 mg in 100 mls @ 100 mls/hr IV Q48H RUBI Propofol (Diprivan 10 Mg/Ml) 1,000 mg in 100 mls @ 2.204 mls/hr IV TITR RUBI; Protocol Last Titration: 10/11/18 14:02 Dose: 30 mcg/kg/min, 13.227 mls/hr Documented by: Sodium Chloride (Nacl 0.9% 1000 Ml) 1,000 mls @ 250 mls/hr IV DIRECT RUBI Last Admin: 10/11/18 11:25 Dose: 250 mls/hr Documented by: Nicardipine HCl 50 mg/ Sodium (Chloride) 250 mls @ 25 mls/hr IV TITR RUBI; Protocol Sodium Bicarbonate 150 meq/ (Dextrose) 1,150 mls @ 75 mls/hr IV DIRECT RUBI Multi-Ingred Cream/Lotion/Oil/Oint (Artificial Tears Ophth Oint) 1 applic OU Q4HR PRN PRN Reason: Dry Eye(s) Multivitamins (Theragran Tab) 1 each PO DAILY [facility] Last Admin: 10/11/18 10:49 Dose: 1 each Documented by: Simple Syrup (Simple Syrup) 15 ml FEEDTUBE PRN PRN PRN Reason: Hypoglycemia Simple Syrup (Simple Syrup) 30 ml FEEDTUBE PRN PRN PRN Reason: Hypoglycemia Simple Syrup (Simple Syrup) 15 ml FEEDTUBE PRN PRN PRN Reason: Hypoglycemia Simple Syrup (Simple Syrup) 30 ml FEEDTUBE PRN PRN PRN Reason: Hypoglycemia Sodium Bicarbonate (Sodium Bicarbonate) 325 mg FEEDTUBE PRN PRN PRN Reason: For Clogged Feeding Tube Sodium Bicarbonate (Sodium Bicarbonate) 325 mg FEEDTUBE PRN PRN PRN Reason: For Clogged Feeding Tube Sodium Chloride (Sodium Chloride Flush Syringe 10 Ml) 10 ml IV BID RUBI Last Admin: 10/11/18 10:49 Dose: 10 ml Documented by: Sodium Chloride (Sodium Chloride Flush Syringe 10 Ml) 10 ml IV PRN PRN PRN Reason: LINE FLUSH Physical Examination - Physical Exam Narrative exam: General appearance: Alert eye open on the vent FIO2 35% in NAD, no follows commands Eyes: anicteric sclerae, moist conjunctivae; no lid-lag; PERRLA HENT: Atraumatic; oropharynx +ETT Neck: Trachea midline; supple, no thyromegaly or lymphadenopathy Lungs: CTA, with normal respiratory effort and no intercostal retractions CV: tachcyardic Abdomen: Soft, non-tender; no masses or hepatosplenomegaly Extremities: No peripheral edema or extremity lymphadenopathy Skin: Normal temperature, turgor and texture; no rash, ulcers or subcutaneous nodules Psych: alert intubated not agitated Neuro: alert not agitated - Constitutional Vitals: Vital Signs Temp Pulse Resp BP Pulse Ox 98.8 F 133 H 41 H 158/105 100 10/11/18 12:00 10/11/18 13:15 10/11/18 13:15 10/11/18 13:15 10/11/18 13:15 Temperature -Last 24 Hours Temperature 98.8 F Temperature 98.8 F Temperature 99.4 F Temperature 99.4 F Temperature 100.6 F Temperature 98.9 F Results - Labs CBC & Chem 7: 10/11/18 02:55 10/11/18 03:34 Labs: Abnormal lab results 10/10/18 10/10/18 10/10/18 Range/Units 15:02 15:02 15:02 RBC 2.38 L (3.65-5.03) M/mm3 Hgb 8.1 L (11.8-15.2) gm/dl Hct 24.9 L (35.5-45.6) % MCV 105 H (84-94) fl MCH 34 H (28-32) pg RDW 21.4 H (13.2-15.2) % Plt Count 20 L (140-440) K/mm3 Seg Neuts % (Manual) 84.0 H (40.0-70.0) % Lymphocytes % (Manual) 8.0 L (13.4-35.0) % Seg Neutrophils # Man 7.8 H (1.8-7.7) K/mm3 Lymphocytes # (Manual) 0.7 L (1.2-5.4) K/mm3 PT 16.2 H (12.2-14.9) Sec. INR 1.22 H (0.87-1.13) POC ABG pH (7.35-7.45) POC ABG pCO2 (35-45) POC ABG pO2 (80-105) Sodium 136 L (137-145) mmol/L Potassium (3.6-5.0) mmol/L Chloride 88.2 L (98-107) mmol/L Carbon Dioxide 8 L* (22-30) mmol/L BUN 70 H (9-20) mg/dL Creatinine 5.6 H (0.8-1.5) mg/dL Glucose 331 H (75-100) mg/dL POC Glucose (70-105) Lactic Acid (0.7-2.0) mmol/L Calcium (8.4-10.2) mg/dL Total Bilirubin (0.1-1.2) mg/dL Direct Bilirubin (0-0.2) mg/dL AST (5-40) units/L ALT (7-56) units/L Alkaline Phosphatase (35-129) units/L Lactate Dehydrogenase (91-180) units/L Troponin T 0.298 H* (0.00-0.029) ng/mL NT-Pro-B Natriuret Pep (0-450) pg/mL Total Protein (6.3-8.2) g/dL Albumin (3.9-5) g/dL Triglycerides 329 H (2-149) mg/dL Cholesterol 234 H (50-199) mg/dL LDL Cholesterol Direct 139 H (50-130) mg/dL 10/10/18 10/10/18 10/10/18 Range/Units 15:29 15:42 15:42 RBC (3.65-5.03) M/mm3 Hgb (11.8-15.2) gm/dl Hct (35.5-45.6) % MCV (84-94) fl MCH (28-32) pg RDW (13.2-15.2) % Plt Count (140-440) K/mm3 Seg Neuts % (Manual) (40.0-70.0) % Lymphocytes % (Manual) (13.4-35.0) % Seg Neutrophils # Man (1.8-7.7) K/mm3 Lymphocytes # (Manual) (1.2-5.4) K/mm3 PT (12.2-14.9) Sec. INR (0.87-1.13) POC ABG pH (7.35-7.45) POC ABG pCO2 (35-45) POC ABG pO2 (80-105) Sodium (137-145) mmol/L Potassium (3.6-5.0) mmol/L Chloride (98-107) mmol/L Carbon Dioxide (22-30) mmol/L BUN (9-20) mg/dL Creatinine (0.8-1.5) mg/dL Glucose (75-100) mg/dL POC Glucose 274 H (70-105) Lactic Acid 17.90 H* (0.7-2.0) mmol/L Calcium (8.4-10.2) mg/dL Total Bilirubin 1.50 H (0.1-1.2) mg/dL Direct Bilirubin 0.4 H (0-0.2) mg/dL AST 105 H (5-40) units/L ALT (7-56) units/L Alkaline Phosphatase (35-129) units/L Lactate Dehydrogenase (91-180) units/L Troponin T (0.00-0.029) ng/mL NT-Pro-B Natriuret Pep 94272 H (0-450) pg/mL Total Protein 9.2 H (6.3-8.2) g/dL Albumin (3.9-5) g/dL Triglycerides (2-149) mg/dL Cholesterol (50-199) mg/dL LDL Cholesterol Direct (50-130) mg/dL 10/10/18 10/10/18 10/10/18 Range/Units 16:22 16:54 17:08 RBC (3.65-5.03) M/mm3 Hgb (11.8-15.2) gm/dl Hct (35.5-45.6) % MCV (84-94) fl MCH (28-32) pg RDW (13.2-15.2) % Plt Count (140-440) K/mm3 Seg Neuts % (Manual) (40.0-70.0) % Lymphocytes % (Manual) (13.4-35.0) % Seg Neutrophils # Man (1.8-7.7) K/mm3 Lymphocytes # (Manual) (1.2-5.4) K/mm3 PT (12.2-14.9) Sec. INR (0.87-1.13) POC ABG pH (7.35-7.45) POC ABG pCO2 9.0 L (35-45) POC ABG pO2 140 H (80-105) Sodium (137-145) mmol/L Potassium (3.6-5.0) mmol/L Chloride (98-107) mmol/L Carbon Dioxide (22-30) mmol/L BUN (9-20) mg/dL Creatinine (0.8-1.5) mg/dL Glucose (75-100) mg/dL POC Glucose (70-105) Lactic Acid 14.80 H* (0.7-2.0) mmol/L Calcium (8.4-10.2) mg/dL Total Bilirubin (0.1-1.2) mg/dL Direct Bilirubin (0-0.2) mg/dL AST (5-40) units/L ALT (7-56) units/L Alkaline Phosphatase (35-129) units/L Lactate Dehydrogenase 2342 H (91-180) units/L Troponin T (0.00-0.029) ng/mL NT-Pro-B Natriuret Pep (0-450) pg/mL Total Protein (6.3-8.2) g/dL Albumin (3.9-5) g/dL Triglycerides (2-149) mg/dL Cholesterol (50-199) mg/dL LDL Cholesterol Direct (50-130) mg/dL 10/10/18 10/10/18 10/10/18 Range/Units 18:07 18:24 19:58 RBC (3.65-5.03) M/mm3 Hgb (11.8-15.2) gm/dl Hct (35.5-45.6) % MCV (84-94) fl MCH (28-32) pg RDW (13.2-15.2) % Plt Count (140-440) K/mm3 Seg Neuts % (Manual) (40.0-70.0) % Lymphocytes % (Manual) (13.4-35.0) % Seg Neutrophils # Man (1.8-7.7) K/mm3 Lymphocytes # (Manual) (1.2-5.4) K/mm3 PT (12.2-14.9) Sec. INR (0.87-1.13) POC ABG pH 7.172 L (7.35-7.45) POC ABG pCO2 (35-45) POC ABG pO2 533 H (80-105) Sodium (137-145) mmol/L Potassium (3.6-5.0) mmol/L Chloride (98-107) mmol/L Carbon Dioxide (22-30) mmol/L BUN (9-20) mg/dL Creatinine (0.8-1.5) mg/dL Glucose (75-100) mg/dL POC Glucose (70-105) Lactic Acid 11.50 H* (0.7-2.0) mmol/L Calcium (8.4-10.2) mg/dL Total Bilirubin (0.1-1.2) mg/dL Direct Bilirubin (0-0.2) mg/dL AST (5-40) units/L ALT (7-56) units/L Alkaline Phosphatase (35-129) units/L Lactate Dehydrogenase (91-180) units/L Troponin T 0.272 H* (0.00-0.029) ng/mL NT-Pro-B Natriuret Pep (0-450) pg/mL Total Protein (6.3-8.2) g/dL Albumin (3.9-5) g/dL Triglycerides (2-149) mg/dL Cholesterol (50-199) mg/dL LDL Cholesterol Direct (50-130) mg/dL 10/10/18 10/10/18 10/10/18 Range/Units 20:54 20:54 22:43 RBC (3.65-5.03) M/mm3 Hgb (11.8-15.2) gm/dl Hct (35.5-45.6) % MCV (84-94) fl MCH (28-32) pg RDW (13.2-15.2) % Plt Count (140-440) K/mm3 Seg Neuts % (Manual) (40.0-70.0) % Lymphocytes % (Manual) (13.4-35.0) % Seg Neutrophils # Man (1.8-7.7) K/mm3 Lymphocytes # (Manual) (1.2-5.4) K/mm3 PT (12.2-14.9) Sec. INR (0.87-1.13) POC ABG pH (7.35-7.45) POC ABG pCO2 (35-45) POC ABG pO2 (80-105) Sodium (137-145) mmol/L Potassium (3.6-5.0) mmol/L Chloride (98-107) mmol/L Carbon Dioxide (22-30) mmol/L BUN (9-20) mg/dL Creatinine (0.8-1.5) mg/dL Glucose (75-100) mg/dL POC Glucose (70-105) Lactic Acid 2.90 H* 2.90 H* 4.60 H* (0.7-2.0) mmol/L Calcium (8.4-10.2) mg/dL Total Bilirubin (0.1-1.2) mg/dL Direct Bilirubin (0-0.2) mg/dL AST (5-40) units/L ALT (7-56) units/L Alkaline Phosphatase (35-129) units/L Lactate Dehydrogenase (91-180) units/L Troponin T (0.00-0.029) ng/mL NT-Pro-B Natriuret Pep (0-450) pg/mL Total Protein (6.3-8.2) g/dL Albumin (3.9-5) g/dL Triglycerides (2-149) mg/dL Cholesterol (50-199) mg/dL LDL Cholesterol Direct (50-130) mg/dL 10/10/18 10/11/18 10/11/18 Range/Units 23:55 02:44 02:55 RBC 2.35 L (3.65-5.03) M/mm3 Hgb 7.7 L (11.8-15.2) gm/dl Hct 22.9 L (35.5-45.6) % MCV 98 H (84-94) fl MCH 33 H (28-32) pg RDW 19.9 H (13.2-15.2) % Plt Count 23 L (140-440) K/mm3 Seg Neuts % (Manual) 75.0 H (40.0-70.0) % Lymphocytes % (Manual) 11.0 L (13.4-35.0) % Seg Neutrophils # Man (1.8-7.7) K/mm3 Lymphocytes # (Manual) 1.0 L (1.2-5.4) K/mm3 PT (12.2-14.9) Sec. INR (0.87-1.13) POC ABG pH (7.35-7.45) POC ABG pCO2 25.9 L (35-45) POC ABG pO2 192 H (80-105) Sodium (137-145) mmol/L Potassium (3.6-5.0) mmol/L Chloride (98-107) mmol/L Carbon Dioxide (22-30) mmol/L BUN (9-20) mg/dL Creatinine (0.8-1.5) mg/dL Glucose (75-100) mg/dL POC Glucose (70-105) Lactic Acid 5.40 H* (0.7-2.0) mmol/L Calcium (8.4-10.2) mg/dL Total Bilirubin (0.1-1.2) mg/dL Direct Bilirubin (0-0.2) mg/dL AST (5-40) units/L ALT (7-56) units/L Alkaline Phosphatase (35-129) units/L Lactate Dehydrogenase (91-180) units/L Troponin T (0.00-0.029) ng/mL NT-Pro-B Natriuret Pep (0-450) pg/mL Total Protein (6.3-8.2) g/dL Albumin (3.9-5) g/dL Triglycerides (2-149) mg/dL Cholesterol (50-199) mg/dL LDL Cholesterol Direct (50-130) mg/dL 10/11/18 10/11/18 10/11/18 Range/Units 02:55 03:34 03:34 RBC (3.65-5.03) M/mm3 Hgb (11.8-15.2) gm/dl Hct (35.5-45.6) % MCV (84-94) fl MCH (28-32) pg RDW (13.2-15.2) % Plt Count (140-440) K/mm3 Seg Neuts % (Manual) (40.0-70.0) % Lymphocytes % (Manual) (13.4-35.0) % Seg Neutrophils # Man (1.8-7.7) K/mm3 Lymphocytes # (Manual) (1.2-5.4) K/mm3 PT (12.2-14.9) Sec. INR (0.87-1.13) POC ABG pH (7.35-7.45) POC ABG pCO2 (35-45) POC ABG pO2 (80-105) Sodium (137-145) mmol/L Potassium 5.3 H D 5.2 H (3.6-5.0) mmol/L Chloride (98-107) mmol/L Carbon Dioxide 14 L 16 L (22-30) mmol/L BUN 74 H 80 H (9-20) mg/dL Creatinine 5.4 H 5.5 H (0.8-1.5) mg/dL Glucose 126 H 63 L (75-100) mg/dL POC Glucose (70-105) Lactic Acid 5.30 H* (0.7-2.0) mmol/L Calcium 7.8 L D 7.9 L (8.4-10.2) mg/dL Total Bilirubin 1.90 H (0.1-1.2) mg/dL Direct Bilirubin (0-0.2) mg/dL AST 306 H (5-40) units/L ALT 89 H (7-56) units/L Alkaline Phosphatase 246 H (35-129) units/L Lactate Dehydrogenase (91-180) units/L Troponin T (0.00-0.029) ng/mL NT-Pro-B Natriuret Pep (0-450) pg/mL Total Protein (6.3-8.2) g/dL Albumin 3.4 L (3.9-5) g/dL Triglycerides (2-149) mg/dL Cholesterol (50-199) mg/dL LDL Cholesterol Direct (50-130) mg/dL 10/11/18 10/11/18 10/11/18 Range/Units 05:47 05:48 09:56 RBC (3.65-5.03) M/mm3 Hgb (11.8-15.2) gm/dl Hct (35.5-45.6) % MCV (84-94) fl MCH (28-32) pg RDW (13.2-15.2) % Plt Count (140-440) K/mm3 Seg Neuts % (Manual) (40.0-70.0) % Lymphocytes % (Manual) (13.4-35.0) % Seg Neutrophils # Man (1.8-7.7) K/mm3 Lymphocytes # (Manual) (1.2-5.4) K/mm3 PT (12.2-14.9) Sec. INR (0.87-1.13) POC ABG pH 7.491 H (7.35-7.45) POC ABG pCO2 24.9 L (35-45) POC ABG pO2 166 H (80-105) Sodium (137-145) mmol/L Potassium (3.6-5.0) mmol/L Chloride (98-107) mmol/L Carbon Dioxide (22-30) mmol/L BUN (9-20) mg/dL Creatinine (0.8-1.5) mg/dL Glucose (75-100) mg/dL POC Glucose (70-105) Lactic Acid 3.80 H* 2.60 H* (0.7-2.0) mmol/L Calcium (8.4-10.2) mg/dL Total Bilirubin (0.1-1.2) mg/dL Direct Bilirubin (0-0.2) mg/dL AST (5-40) units/L ALT (7-56) units/L Alkaline Phosphatase (35-129) units/L Lactate Dehydrogenase (91-180) units/L Troponin T (0.00-0.029) ng/mL NT-Pro-B Natriuret Pep (0-450) pg/mL Total Protein (6.3-8.2) g/dL Albumin (3.9-5) g/dL Triglycerides (2-149) mg/dL Cholesterol (50-199) mg/dL LDL Cholesterol Direct (50-130) mg/dL Assessment and Plan Cultures: Blood culture 10/10/2018 no growth. Sputum culture 10/10/2018 no growth. Assessment: 43 y/o male with history of HIV (unknown CD4/VL/ART intake), HTN, CVA 6 months ago at [place], Nicotine Dependence, Malnutrition; admitted on 10/10/2018 due to AMS (confusion/lethargy) and slurred speech for 24 h: 1) Severe SIRS versus sepsis: Present on admission, manifested by fever, tachycardia, increased lactate. Unclear etiology ? Hypertensive encephalopathy +/- aspiration pneumonia +/- opportunistic brain infection ? Cryptococcal meningitis ? PJP - CXR neg - Unable to obtain UA - patient is anuric - BNP 70K - Troponin 0.2 - LDH 2242 2) Acute hypoxemic respiratory failure: for airway protection +/- ? pneumonia 3) Acute encephalopathy: from hypertensive urgency +/- brain opportunistic infectio. CT head showed bilateral chronic ischemic changes. 4) Anemia/thrombocytopenia ? unclear etiology 5) Acute on CKD or SHRUTHI ? unclear etiology: r/o rhabdo ?ischemia 6) Elevated lactate ? Lactate 17. 7) DM: uncontrolled 8) Elevated LFTs ? Recommendations: - follow-up blood cultures - obtain respiratory cultures, procalcitonin, C-reactive protein (CRP) - check influenza rapid antigen and PCR in nasopharinx - repeat CXR, TTE, CK - check Cryptococcal serum antigen, RPR, Toxo IgG, CMV DNA PCR and AFB-blood culture - obtain lumbar punture for opening pressure and send CSF specimen for Gram stain and culture, glucose, protein, VDRL, HSV-PCR, cryptococcal antigen and culture - obtain CD4, HIV-viral load - abdominal CT w/o contrast eval bowel ischemia - viral hepatitis panel - Brain MRI when stable - records from HIV clinic - attempted to call family,left message - start ceftriaxone and flagyl to cover aspiration pneumonia - start high dose fluconazole until cryptococcosis is r/o - start meprom 750 MG PO bid (SULFA ALLERGY) for PJP treatment Will follow. Praveena Colunga MD Infectious Diseases [employer] [facility] ([facility] M [phone] O [phone]
[2018-10-11] MEDS ORDERED: ROCEPHIN/NS 2 GM/100 ML 2 GM/100 ML BAG IV SCH (15:00)
[2018-10-11 18:10] LABS: Calcium 7.9 mg/dL (8.4-10.2)
[2018-10-11 18:14] LABS: Uric Acid 13.4 mg/dL (3.5-7.6)
--- NOTE | 2018-10-11 18:41 | Magnetic Resonance Report ---
PROCEDURE: MR BRAIN WO CON TECHNIQUE: T1 and T2-weighted sagittal, axial, coronal and diffusion-weighted images of the brain we re obtained. HISTORY: altered mental status HIV-positive. COMPARISONS: Head CT dated October 10, 2018 FINDINGS: Visualization of detail is somewhat limited by motion artifact. There are areas of edema in the basal ganglia and thalami bilaterally and within the jamari. There are areas of edema in the cortex and subcortical and deep white matter of the cerebral hemisphe res bilaterally and in portions of the cortex. There are areas of encephalomalacia in the basal ganglia bilaterally. There are numerous small areas of diffusion abnormality in the basal ganglia bilaterally, subinsular regions bilaterally and medial temporal lobes bilaterally and possibly in the occipital cortex bilate rally. There is gradient echo abnormality in the basal ganglia bilaterally and right midbrain consistent wit h sequela of previous hemorrhage or mineral deposition. The ventricles are normal size. Expected flow void is demonstrated within the major intracranial vessels. The extracranial structures and craniocervical junction are unremarkable in appearance. IMPRESSION: 1. Study somewhat degraded by motion artifact. 2 Areas of edema in the basal ganglia and thalami bilaterally, within the jamari and in the cerebral he mispheres bilaterally in the subcortical and deep white matter and in portions of the cortex. 3. Areas of encephalomalacia in the basal ganglia bilaterally with evidence of previous hemorrhage or mineral deposition. 4. Numerous small foci of acute infarct in the basal ganglia bilaterally, subinsular regions bilatera lly and medial temporal lobes bilaterally and possibly in the occipital cortex bilaterally. The above findings may be secondary to an infectious or noninfectious etiology with a component of va sculopathy or vasculitis resulting in infarcts. Viral encephalopathies and lymphoma would need to be considered in this patient with history of HIV. This document is electronically signed by Rosie Aguirre MD., October 11 2018 06:39:28 PM ET
[2018-10-11] MEDS ORDERED: NACL 0.9% 1000 ML 2,000 ML IV ONE (18:43)
[2018-10-11 18:46] LABS: Hepatitis B Surface Antigen Non-Reactive (Negative); Hepatitis C Virus Antibody Non-Reactive (NonReactive)
[2018-10-11] MEDS: MEPRON PO SCH ×2 (19:03→22:36)
--- NOTE | 2018-10-11 19:21 | Consultation ---
History of Present Illness - History of Present Illness Thank you for the consultation ! Patient was evaluated today, at 2 pm My assessment and plan are as follows; Assessment and plan Severe renal failure in a patient who appears to have low urine output metabolic acidosis which is currently improving lactic acidosis, currently improving, baseline creatinine appears to be unclear to me at this time patient does have history of noncompliance with medication, tobacco abuse, HIV, use of marijuana His renal prognosis appears to be very poor at this time patient may require renal replacement therapy, I left a message for patient's family but I have not heard back Lactic acidosis/metabolic acidosis multifactorial in etiology, patient does not take any HIV medication Altered mental status with multiple acute infarct noted on the MRI concerning, but a lot of her vasculitic workup patient should be seen and followed by hematology oncology, neurology, is currently being followed by pulmonary physician History of HIV: Patient is being seen and followed by infectious disease specialist here Severe anemia and thrombocytopenia in the setting of HIV: Suggest hematology oncology consultation I suspect the patient may have chronic kidney disease underlying Patient's prognosis appears to be extremely poor given that is critically ill, intubated, and renal failure with severe lactic acidosis metabolic acidosis issues with noncompliance, chronic tobacco abuse with multiple strokes case discussed with Dr. Muñoz His mortality risk is clearly very high I have left a message for his mother at [phone] member to call me We'll continue with the IV hydration correction of metabolic acidosis, renal ultrasonogram of the labs will be ordered We will continue to follow and make recommendations from renal standpoint. Thank you for the consultation Author: Mike Avila M.D. [facility], [address] [place] [address] Tel; [phone] Source of information: From current chart History of present illness Patient is a 43-year-old -Turkmen male who has been admitted here with renal failure, respiratory failure, severe lactic acidosis which is currently improving patient is currently intubated and unable to provide any history most information was obtained from patient's current chart, also left a message for patient's mother to call did not hear back. Patient has been noted to be in severe renal failure with lactic acidosis metabolic acidosis some of which is currently improving. Patient is alert awake but he does not follow purposeful command, He appears to be encephalopathic there is no old records in our system he is also noted to be severely anemic with a hemoglobin of 7.7, with severe thrombocytopenia platelet count and 20,000 range, bicarbonate upon admission was around 8 with lactic acid of 5.4 which is currently improving at 2.3 and 17, p atient also has been noted to have elevated bilirubin and high AST ALT. patient's chest x-ray showed no evidence of any acute cardiopulmonary process, MRI of the brain obtained shows multiple small acute infarct in basal ganglia region, for which several possibilities have been raised Past medical history is significant for HIV Hypertension Smokes marijuana Tobacco abuse noncompliance with medication Allergies: Sulfa drugs Social history, family history unable to obtain due to intubated status Home medication present medication: Revied Review of system: Unable to obtain due to intubated status Physical examination Vitals: Reviewed General: No acute distress, orally intubated, confused HEENT: Oral mucosa moist no pallor or icterus, orally intubated Neck: Supple without any JVD thyromegaly or nodular mass Chest: Clear to auscultation Heart: Regular rate and rhythm S1-S2 heard no S3-S4 Abdomen: Soft nontender, bowel sounds present no renal bruit no suprapubic masses no CVA tenderness noted Extremity:very dry skin no peripheral cyanosis Endocrine: Thyroid not enlarged Psychiatric: No agitation and aggression noted Musculoskeletal: No joint effusion noted genitourinary: Ricketts catheter dark urine, scant amount Labs and x-rays: Reviewed from this admission Past History Past Medical History: HIV/AIDS, hypertension, stroke Past Surgical History: No surgical history, Other (reviewed) Social history: single, smoking. denies: alcohol abuse, prescription drug abuse Family history: hypertension Medications and Allergies Allergies Allergy/AdvReac Type Severity Reaction Status Date / Time Sulfa (Sulfonamide Allergy Unknown Verified 10/10/18 16:54 Antibiotics) Home Medications Medication Instructions Recorded Confirmed Last Taken Type Acetaminophen [Tylenol] 1,000 mg PO Q6HR 10/10/18 10/10/18 Unknown History Amlodipine Besylate [Norvasc] 10 mg PO QDAY 10/10/18 10/10/18 Unknown History Aspirin [Adult Aspirin] 81 mg PO DAILY 10/10/18 10/10/18 Unknown History Atorvastatin [Lipitor Tab] 80 mg PO DAILY 10/10/18 10/10/18 Unknown History Losartan [Cozaar] 100 mg PO QDAY 10/10/18 10/10/18 Unknown History Multivitamin [Multiple Vitamins] 1 each PO DAILY 10/10/18 10/10/18 Unknown History hydroCHLOROthiazide [HCTZ] 25 mg PO QDAY 10/10/18 10/10/18 Unknown History Active Meds: Active Medications Acetaminophen (Tylenol) 1,000 mg PO Q6HR RUBI Last Admin: 10/11/18 12:22 Dose: 1,000 mg Documented by: Albuterol (Proventil) 2.5 mg IH Q3HRT PRN PRN Reason: Shortness Of Breath Amlodipine Besylate (Norvasc) 10 mg PO QDAY [facility] Last Admin: 10/11/18 10:49 Dose: 10 mg Documented by: Lipase/Protease/Amylase (Carrie Reed 10,500 Unit) 1 each FEEDTUBE PRN PRN PRN Reason: For Clogged Feeding Tube Lipase/Protease/Amylase (Carrie Reed 10,500 Unit) 1 each FEEDTUBE PRN PRN PRN Reason: For Clogged Feeding Tube Atorvastatin Calcium (Lipitor) 80 mg PO QDAY [facility] Last Admin: 10/11/18 10:49 Dose: 80 mg Documented by: Atovaquone (Mepron) 750 mg PO BID [facility] Last Admin: 10/11/18 19:03 Dose: 750 mg Documented by: Hydrophilic Ointment (Vaseline Lip Therapy) 1 applic TP Q2HR PRN PRN Reason: Dry Lips Levofloxacin/Dextrose (Levaquin 500mg/100ml) 500 mg in 100 mls @ 100 mls/hr IV Q48H RUBI Propofol (Diprivan 10 Mg/Ml) 1,000 mg in 100 mls @ 2.204 mls/hr IV TITR RUBI; Protocol Last Titration: 10/11/18 14:07 Dose: 35 mcg/kg/min, 15.431 mls/hr Documented by: Sodium Chloride (Nacl 0.9% 1000 Ml) 1,000 mls @ 250 mls/hr IV DIRECT RUBI Last Admin: 10/11/18 11:25 Dose: 250 mls/hr Documented by: Nicardipine HCl 50 mg/ Sodium (Chloride) 250 mls @ 25 mls/hr IV TITR RUBI; Protocol Sodium Bicarbonate 150 meq/ (Dextrose) 1,150 mls @ 75 mls/hr IV DIRECT RUBI Ceftriaxone Sodium (Rocephin/Ns 2 Gm/100 Ml) 2 gm in 100 mls @ 200 mls/hr IV Q24HR RUBI; Protocol Last Admin: 10/11/18 18:59 Dose: 200 mls/hr Documented by: Metronidazole (Flagyl 500 Mg/100 Ml) 500 mg in 100 mls @ 100 mls/hr IV Q8HR RUBI; Protocol Fluconazole (Diflucan) 200 mls @ 100 mls/hr IV Q24HR RUBI; Protocol Multi-Ingred Cream/Lotion/Oil/Oint (Artificial Tears Ophth Oint) 1 applic OU Q4HR PRN PRN Reason: Dry Eye(s) Multivitamins (Theragran Tab) 1 each PO DAILY [facility] Last Admin: 10/11/18 10:49 Dose: 1 each Documented by: Simple Syrup (Simple Syrup) 15 ml FEEDTUBE PRN PRN PRN Reason: Hypoglycemia Simple Syrup (Simple Syrup) 30 ml FEEDTUBE PRN PRN PRN Reason: Hypoglycemia Simple Syrup (Simple Syrup) 15 ml FEEDTUBE PRN PRN PRN Reason: Hypoglycemia Simple Syrup (Simple Syrup) 30 ml FEEDTUBE PRN PRN PRN Reason: Hypoglycemia Sodium Bicarbonate (Sodium Bicarbonate) 325 mg FEEDTUBE PRN PRN PRN Reason: For Clogged Feeding Tube Sodium Bicarbonate (Sodium Bicarbonate) 325 mg FEEDTUBE PRN PRN PRN Reason: For Clogged Feeding Tube Sodium Chloride (Sodium Chloride Flush Syringe 10 Ml) 10 ml IV BID [facility] Last Admin: 10/11/18 10:49 Dose: 10 ml Documented by: Sodium Chloride (Sodium Chloride Flush Syringe 10 Ml) 10 ml IV PRN PRN PRN Reason: LINE FLUSH Exam - Vital Signs Vital signs: Vital Signs Pulse BP Pulse Ox 138 H 236/167 100 10/10/18 15:06 10/10/18 15:06 10/10/18 15:06 Results - Lab Results 10/11/18 02:55 10/11/18 17:34 Most recent lab results Calcium 7.9 mg/dL (8.4-10.2) L 10/11/18 17:34 Phosphorus 5.80 mg/dL (2.5-4.5) H 10/11/18 17:34 Magnesium 2.70 mg/dL (1.7-2.3) H 10/11/18 17:34
[2018-10-11] MEDS ORDERED: NACL 0.9% 500 ML 500 ML IV ONE (19:48)
[2018-10-11] MEDS ORDERED: NACL 0.45% 1000 ML 1,000 ML IV SCH (20:00)
[2018-10-11] MEDS: FLAGYL 500 MG/100 ML 500 MG/100 ML BAG IV SCH ×2 (20:08→22:40)
[2018-10-11] MEDS: DIFLUCAN 200 ML IV SCH (20:09)
[2018-10-11 20:52] LABS: Calcium 7.7 mg/dL (8.4-10.2)
[2018-10-12] MEDS: TYLENOL PO SCH ×3 (01:23→08:27)
[2018-10-12] MEDS: SODIUM CHLORIDE FLUSH SYRINGE 10 ML IV SCH ×3 (01:30→23:24)
--- NOTE | 2018-10-12 03:46 | XRay Report ---
PROCEDURE: PORTABLE CHEST TECHNIQUE: A portable AP chest radiograph was obtained at 10/12/2018 7:40 [employer]. CPT 02719 HISTORY: Intubation COMPARISONS: 10/11/2018. FINDINGS: Heart: Normal. Mediastinum/Vessels: Normal. Lungs/Pleural space: Lungs are expanded. There are no infiltrates, effusions or pneumothoraces.. Bony thorax: No acute osseous abnormality. Life support devices: The endotracheal tube is in the mid trachea approximately 4.5 cm above the marcelle na. There is an NG tube in the stomach. IMPRESSION: No acute cardiopulmonary abnormality. The endotracheal tube is in the mid trachea approximately 4.5 cm above the hedy. There is an NG tube in the stomach. This document is electronically signed by Gucci Knight MD., October 12 2018 03:43:54 AM ET
[2018-10-12 06:02] LABS: Mean Corpuscular HGB Conc 34 % (32-34); Mean Corpuscular Volume 95 fl (84-94); Red Blood Count 1.75 M/mm3 (3.65-5.03)
[2018-10-12] MEDS: FLAGYL 500 MG/100 ML 500 MG/100 ML BAG IV SCH ×3 (06:02→23:24)
[2018-10-12 06:09] LABS: INR 1.39 (0.87-1.13)
[2018-10-12 06:14] LABS: Hematocrit 16.7 % (35.5-45.6); Hemoglobin 5.6 gm/dl (11.8-15.2); Red Cell Distribution Width 20.7 % (13.2-15.2)
[2018-10-12 06:15] LABS: Platelet Count 49 K/mm3 (140-440)
[2018-10-12 06:21] LABS: Albumin 2.8 g/dL (3.9-5); Calcium 7.6 mg/dL (8.4-10.2)
[2018-10-12 07:09] LABS: Hemoglobin 5.8 gm/dl (11.8-15.2)
[2018-10-12 07:10] LABS: Hematocrit 17.2 % (35.5-45.6)
[2018-10-12] MEDS ORDERED: NACL 0.9% 500 ML 500 ML IV ONE (07:12)
--- NOTE | 2018-10-12 08:46 | Event Note ---
Date: 10/12/18 [id number]
--- NOTE | 2018-10-12 09:50 | Progress Note ---
Assessment and Plan Assessment and plan: Acute encephalopathy Neurochecks. Neurology consulted LP ordered but not stable for procedure Acute resp failure s/p intubated in ED Pulm following Vent weaning per protocol HIV/AIDS Details unclear. No previous records available ID Physician following Acute Bilateral infarcts with edema Consult Neurology Not given Aspirin because hematuria, hemoglobin drop SHRUTHI vs acute on CKD Worse Cr 8.8 today Baseline unknown Will need to start hemodialysis Unable to place regan. Consulted and called Dr. Paula, urology left message. Metabolic acidosis Started bicarb drip Thrombocytopenia, 49 Transfuse 1 Unit because hemoglobin drop, likely bleed, hematuria Anemia, hemoglobin drop Hgb 5.8. Transfuse 3 Units get stool occult blood Hyperkalemia, resolved Elevated LFT Hyperlipidemia Hypertension History of stroke Elevated Troponin Likely due to kidney disease Prognosis guarded Full code status History Interval history: Patient with HIV/AIDS presented with altered mental status, then could not protect airway,intubated in ED Hemoglobin drop fever Hematuria Hospitalist Physical - Physical exam Narrative exam: GEN: Not in acute distress, HEENT: Normocephalic, atraumatic, Neck: supple, No JVD Lungs:Clear to auscultation, no wheeze Heart:S1 and S2 regular, no murmurs, rubs or gallop, Abd:soft, non tender, non distended, normal bowel sounds Ext: No edema, no clubbing or cyanosis Neuro:Intubated, sedated - Constitutional Vitals: Temp Pulse Resp BP Pulse Ox 97.2 F L 128 H 38 H 137/93 100 10/12/18 09:19 10/12/18 09:15 10/12/18 09:15 10/12/18 09:15 10/12/18 09:15 Results - Labs CBC & Chem 7: 10/12/18 06:43 10/12/18 04:57 Labs: Laboratory Last Values WBC 13.7 K/mm3 (4.5-11.0) H 10/12/18 04:57 RBC 1.75 M/mm3 (3.65-5.03) L 10/12/18 04:57 Hgb 5.8 gm/dl (11.8-15.2) L* 10/12/18 06:43 Hct 17.2 % (35.5-45.6) L* 10/12/18 06:43 MCV 95 fl (84-94) H 10/12/18 04:57 MCH 32 pg (28-32) 10/12/18 04:57 MCHC 34 % (32-34) 10/12/18 04:57 RDW 20.7 % (13.2-15.2) H 10/12/18 04:57 Plt Count 49 K/mm3 (140-440) L D 10/12/18 04:57 Add Manual Diff Complete 10/11/18 02:55 Total Counted 100 10/11/18 02:55 Seg Neuts % (Manual) 75.0 % (40.0-70.0) H 10/11/18 02:55 Band Neutrophils % 5.0 % 10/11/18 02:55 Lymphocytes % (Manual) 11.0 % (13.4-35.0) L 10/11/18 02:55 Reactive Lymphs % (Man) 0 % 10/11/18 02:55 Monocytes % (Manual) 1.0 % (0.0-7.3) 10/11/18 02:55 Eosinophils % (Manual) 0 % (0.0-4.3) 10/11/18 02:55 Basophils % (Manual) 0 % (0.0-1.8) 10/11/18 02:55 Metamyelocytes % 4.0 % 10/11/18 02:55 Myelocytes % 4.0 % 10/11/18 02:55 Promyelocytes % 0 % 10/11/18 02:55 Blast Cells % 0 % 10/11/18 02:55 Nucleated RBC % Not Reportable 10/11/18 02:55 Seg Neutrophils # Man 6.9 K/mm3 (1.8-7.7) 10/11/18 02:55 Band Neutrophils # 0.5 K/mm3 10/11/18 02:55 Lymphocytes # (Manual) 1.0 K/mm3 (1.2-5.4) L 10/11/18 02:55 Abs React Lymphs (Man) 0.0 K/mm3 10/11/18 02:55 Monocytes # (Manual) 0.1 K/mm3 (0.0-0.8) 10/11/18 02:55 Eosinophils # (Manual) 0.0 K/mm3 (0.0-0.4) 10/11/18 02:55 Basophils # (Manual) 0.0 K/mm3 (0.0-0.1) 10/11/18 02:55 Metamyelocytes # 0.4 K/mm3 10/11/18 02:55 Myelocytes # 0.4 K/mm3 10/11/18 02:55 Promyelocytes # 0.0 K/mm3 10/11/18 02:55 Blast Cells # 0.0 K/mm3 10/11/18 02:55 WBC Morphology Not Reportable 10/11/18 02:55 Hypersegmented Neuts Not Reportable 10/11/18 02:55 Hyposegmented Neuts Not Reportable 10/11/18 02:55 Hypogranular Neuts Not Reportable 10/11/18 02:55 Smudge Cells Not Reportable 10/11/18 02:55 Toxic Granulation Not Reportable 10/11/18 02:55 Toxic Vacuolation Not Reportable 10/11/18 02:55 Dohle Bodies Not Reportable 10/11/18 02:55 Pelger-Huet Anomaly Not Reportable 10/11/18 02:55 Kartik Rods Not Reportable 10/11/18 02:55 Platelet Estimate Appears decreased 10/11/18 02:55 Clumped Platelets Not Reportable 10/11/18 02:55 Plt Clumps, EDTA Not Reportable 10/11/18 02:55 Large Platelets Not Reportable 10/11/18 02:55 Giant Platelets Not Reportable 10/11/18 02:55 Platelet Satelliting Not Reportable 10/11/18 02:55 Plt Morphology Comment Not Reportable 10/11/18 02:55 RBC Morphology Not Reportable 10/11/18 02:55 Dimorphic RBCs Not Reportable 10/11/18 02:55 Polychromasia Not Reportable 10/11/18 02:55 Hypochromasia Not Reportable 10/11/18 02:55 Poikilocytosis 2+ 10/11/18 02:55 Anisocytosis 1+ 10/11/18 02:55 Microcytosis Few 10/11/18 02:55 Macrocytosis Not Reportable 10/11/18 02:55 Spherocytes Not Reportable 10/11/18 02:55 Pappenheimer Bodies Not Reportable 10/11/18 02:55 Sickle Cells Not Reportable 10/11/18 02:55 Target Cells Not Reportable 10/11/18 02:55 Tear Drop Cells Not Reportable 10/11/18 02:55 Ovalocytes 1+ 10/11/18 02:55 Helmet Cells 1+ 10/11/18 02:55 [place] Bodies Not Reportable 10/11/18 02:55 [place] Rings Not Reportable 10/11/18 02:55 [place]bo Cells 2+ 10/11/18 02:55 Bite Cells Not Reportable 10/11/18 02:55 Crenated Cell Not Reportable 10/11/18 02:55 Elliptocytes Few 10/11/18 02:55 Acanthocytes (Spur) 1+ 10/11/18 02:55 Rouleaux Not Reportable 10/11/18 02:55 Hemoglobin C Crystals Not Reportable 10/11/18 02:55 Schistocytes 1+ 10/11/18 02:55 Malaria parasites Not Reportable 10/11/18 02:55 Jv Bodies Not Reportable 10/11/18 02:55 Hem Pathologist Commnt No 10/11/18 02:55 PT 18.0 Sec. (12.2-14.9) H 10/12/18 04:57 INR 1.39 (0.87-1.13) H 10/12/18 04:57 APTT 27.9 Sec. (24.2-36.6) 10/10/18 15:02 Thrombin Time 16.9 Sec. (15.1-19.6) 10/10/18 15:02 POC ABG pH 7.493 (7.35-7.45) H 10/12/18 04:29 POC ABG pCO2 23.1 (35-45) L 10/12/18 04:29 POC ABG pO2 176 (80-105) H 10/12/18 04:29 POC ABG HCO3 17.7 10/12/18 04:29 POC ABG Total CO2 18 10/12/18 04:29 POC ABG O2 Sat 100 10/12/18 04:29 POC ABG Base Excess -6 10/12/18 04:29 FiO2 35 % 10/12/18 04:29 Sodium 145 mmol/L (137-145) 10/12/18 04:57 Potassium 3.0 mmol/L (3.6-5.0) L D 10/12/18 04:57 Chloride 105.1 mmol/L (98-107) 10/12/18 04:57 Carbon Dioxide 15 mmol/L (22-30) L 10/12/18 04:57 Anion Gap 28 mmol/L 10/12/18 04:57 BUN 102 mg/dL (9-20) H 10/12/18 04:57 Creatinine 8.8 mg/dL (0.8-1.5) H 10/12/18 04:57 Estimated GFR 8 ml/min 10/12/18 04:57 BUN/Creatinine Ratio 12 % 10/12/18 04:57 Glucose 110 mg/dL (75-100) H 10/12/18 04:57 POC Glucose 274 (70-105) H 10/10/18 15:29 Osmolality 338 Mosm/kg 10/11/18 17:35 Lactic Acid 1.80 mmol/L (0.7-2.0) 10/12/18 05:59 Uric Acid 13.4 mg/dL (3.5-7.6) H 10/11/18 17:36 Calcium 7.6 mg/dL (8.4-10.2) L 10/12/18 04:57 Phosphorus 5.10 mg/dL (2.5-4.5) H 10/12/18 04:57 Magnesium 2.50 mg/dL (1.7-2.3) H 10/12/18 04:57 Iron 147 ug/dL (49-181) 10/11/18 17:36 TIBC 236 mcg/dL (250-450) L 10/11/18 17:36 Ferritin 13882.0 ng/mL (13.0-400.0) H 10/11/18 17:35 Total Bilirubin 0.80 mg/dL (0.1-1.2) 10/12/18 04:57 Direct Bilirubin 0.4 mg/dL (0-0.2) H 10/10/18 15:42 Indirect Bilirubin 1.1 mg/dL 10/10/18 15:42 AST 667 units/L (5-40) H 10/12/18 04:57 ALT 298 units/L (7-56) H 10/12/18 04:57 Alkaline Phosphatase 154 units/L (35-129) H 10/12/18 04:57 Ammonia 50.0 umol/L (25-60) 10/10/18 15:42 Lactate Dehydrogenase 2342 units/L (91-180) H 10/10/18 16:54 Troponin T 0.272 ng/mL (0.00-0.029) H* 10/10/18 18:07 NT-Pro-B Natriuret Pep 41256 pg/mL (0-450) H 10/10/18 15:42 Total Protein 6.3 g/dL (6.3-8.2) 10/12/18 04:57 Albumin 2.8 g/dL (3.9-5) L 10/12/18 04:57 Albumin/Globulin Ratio 0.8 % 10/12/18 04:57 Triglycerides 329 mg/dL (2-149) H 10/10/18 15:02 Cholesterol 234 mg/dL (50-199) H 10/10/18 15:02 LDL Cholesterol Direct 139 mg/dL (50-130) H 10/10/18 15:02 HDL Cholesterol 42 mg/dL (40-59) 10/10/18 15:02 Cholesterol/HDL Ratio 5.57 % 10/10/18 15:02 Hepatitis A IgM Ab Non-reactive (NonReactive) 10/11/18 17:34 Hep Bs Antigen Non-reactive (Negative) 10/11/18 17:34 Hep B Core IgM Ab Non-reactive (NonReactive) 10/11/18 17:34 Hepatitis C Antibody Non-reactive (NonReactive) 10/11/18 17:34 Blood Type A POSITIVE 10/10/18 15:05 Antibody Screen Negative 10/10/18 15:05 Crossmatch See Detail 10/10/18 15:05 Nutrition/Malnutrition Assess - Dietary Evaluation Nutrition/Malnutrition Findings: Nutrition Notes Start: 10/11/18 11:14 Freq: Status: Active Protocol: Document 10/11/18 11:14 CP (Rec: 10/11/18 11:39 CP [id number]) Co-Sign 10/11/18 11:14 LP Nutrition Notes Need for Assessment generated from: MD Order Initial or Follow up Assessment Current Diagnosis Acute Kidney Injury Sepsis Respiratory Failure Other Pertinent Diagnosis Lactic acidosis, metabolic acidosis, HIV Current Diet NPO Labs/Tests K: 5.2 BUN 80 Cr 5.5 BG 63 Pertinent Medications Reviewed Height 5 ft 9 in Weight 73.482 kg [place] Body Weight (kg) 72.72 BMI 23.9 Weight Status Appropriate Subjective/Other Information MD consult for TF. Pt was extubated as discussed in rounds. Percent of energy/protein needs met: 0%/0% Burn Absent Trauma Absent #1 Nutrition Diagnosis Inadequate oral intake Etiology Sepsis, Resp failure As Evidenced by Signs and Symptoms Vent status Is patient on ventilator? No Is Patient Ambulatory and/or Out of Bed No REE-([facility]-confined to bed) 1952.384 Calculation Used for Recommendations [facility] Additional Notes Pro: 88-145g (1.2-2g/kg) Fluid: 1mL/kcal Nutrition Intervention Change Diet Order: Advance when medically feasible Nutrition Support: Nepro at 45 mL/hr Water flush 100 mL q4h. Kcal 1,944 Protein (gm) 87 Fluid (mL) 1,159 Goal #1 TF to start Anticipated Discharge Needs: Unable to determine at this time Follow-Up By: 10/12/18 Additional Comments F/U: TF to start
[2018-10-12] MEDS ORDERED: ATIVAN IV ONE (10:00)
[2018-10-12 10:01] LABS: Band Neutrophils # (Manual) 0.5 K/mm3; Basophils % (Manual) 0 % (0.0-1.8); Eosinophils % (Manual) 0 % (0.0-4.3); Total Cells Counted 100
[2018-10-12 10:13] LABS: Anisocytosis 1+; Poikilocytosis 2+; Schistocytes 1+
[2018-10-12 10:16] LABS: Burr Cells 2+; Ovalocytes 1+; Platelet Estimate Consistent w Auto
--- NOTE | 2018-10-12 10:27 | Gastroenterology Consultation ---
<YA MARIO - Last Filed: 10/12/18 11:16> History of Present Illness - Reason for Consult Consult date: 10/12/18 anemia Requesting physician: AYAZ ELMORE - History of Present Illness Patient is a 43 y/o male with PMH of HIV, HTN, CVA 6 months ago at [facility], Nicotine dependence, CKD, malnutrition, and noncompliance who presented to ED with AMS and slurred speech. Upon admission he was found to be in distress and unable to protect airway. He is currently in ICU on vent and cardene drip being treated for acute encephalopathy, acute respiratory failure, acidosis, SHRUTHI, HTN, acute bilateral strokes, HIV/AIDS, thrombocytopenia, and severe anemia to which GI has been consulted. Pulmonary, nephrology, ID, and hematology are following (neuro consult pending). Patient unable to provide history and no family at bedside. History obtained via chart. Upon exam, there was bright red blood noted in regan but no active signs of GI bleeding. NG tube with no drainage. Rectal revealed light green/brown stool. There is a midline abd scar from previous surgery but prior GI history unknown. Past History Past Medical History: HIV/AIDS, hypertension, stroke Past Surgical History: bowel surgery (unknown type; midline scar noted on abd) Social history: single, smoking. denies: alcohol abuse, prescription drug abuse Family history: hypertension Medications and Allergies Allergies Allergy/AdvReac Type Severity Reaction Status Date / Time Sulfa (Sulfonamide Allergy Unknown Verified 10/10/18 16:54 Antibiotics) Home Medications Medication Instructions Recorded Confirmed Last Taken Type Acetaminophen [Tylenol] 1,000 mg PO Q6HR 10/10/18 10/10/18 Unknown History Amlodipine Besylate [Norvasc] 10 mg PO QDAY 10/10/18 10/10/18 Unknown History Aspirin [Adult Aspirin] 81 mg PO DAILY 10/10/18 10/10/18 Unknown History Atorvastatin [Lipitor Tab] 80 mg PO DAILY 10/10/18 10/10/18 Unknown History Losartan [Cozaar] 100 mg PO QDAY 10/10/18 10/10/18 Unknown History Multivitamin [Multiple Vitamins] 1 each PO DAILY 10/10/18 10/10/18 Unknown History hydroCHLOROthiazide [HCTZ] 25 mg PO QDAY 10/10/18 10/10/18 Unknown History Active Meds: Active Medications Acetaminophen (Tylenol) 1,000 mg PO Q6HR RUBI Last Admin: 10/12/18 08:27 Dose: 1,000 mg Documented by: Albuterol (Proventil) 2.5 mg IH Q3HRT PRN PRN Reason: Shortness Of Breath Amlodipine Besylate (Norvasc) 10 mg PO QDAY RUBI Last Admin: 10/11/18 10:49 Dose: 10 mg Documented by: Lipase/Protease/Amylase (Carrie Reed 10,500 Unit) 1 each FEEDTUBE PRN PRN PRN Reason: For Clogged Feeding Tube Atorvastatin Calcium (Lipitor) 80 mg PO QDAY RUBI Last Admin: 10/11/18 10:49 Dose: 80 mg Documented by: Atovaquone (Mepron) 750 mg PO BID RUBI Last Admin: 10/11/18 22:36 Dose: 750 mg Documented by: Hydrophilic Ointment (Vaseline Lip Therapy) 1 applic TP Q2HR PRN PRN Reason: Dry Lips Propofol (Diprivan 10 Mg/Ml) 1,000 mg in 100 mls @ 2.204 mls/hr IV TITR RUBI; Protocol Last Titration: 10/11/18 14:07 Dose: 35 mcg/kg/min, 15.431 mls/hr Documented by: Nicardipine HCl 50 mg/ Sodium (Chloride) 250 mls @ 25 mls/hr IV TITR RUBI; Protocol Ceftriaxone Sodium (Rocephin/Ns 2 Gm/100 Ml) 2 gm in 100 mls @ 200 mls/hr IV Q24HR RUBI; Protocol Last Admin: 10/11/18 18:59 Dose: 200 mls/hr Documented by: Metronidazole (Flagyl 500 Mg/100 Ml) 500 mg in 100 mls @ 100 mls/hr IV Q8HR RUBI; Protocol Last Admin: 10/12/18 06:02 Dose: 100 mls/hr Documented by: Fluconazole (Diflucan) 200 mls @ 100 mls/hr IV Q24HR RUBI; Protocol Last Admin: 10/11/18 20:09 Dose: 100 mls/hr Documented by: Sodium Chloride (Nacl 0.45% 1000 Ml) 1,000 mls @ 150 mls/hr IV DIRECT RUBI Last Admin: 10/12/18 06:05 Dose: 150 mls/hr Documented by: Multi-Ingred Cream/Lotion/Oil/Oint (Artificial Tears Ophth Oint) 1 applic OU Q4HR PRN PRN Reason: Dry Eye(s) Multivitamins (Theragran Tab) 1 each PO DAILY [facility] Last Admin: 10/11/18 10:49 Dose: 1 each Documented by: Simple Syrup (Simple Syrup) 15 ml FEEDTUBE PRN PRN PRN Reason: Hypoglycemia Simple Syrup (Simple Syrup) 30 ml FEEDTUBE PRN PRN PRN Reason: Hypoglycemia Sodium Bicarbonate (Sodium Bicarbonate) 325 mg FEEDTUBE PRN PRN PRN Reason: For Clogged Feeding Tube Sodium Chloride (Sodium Chloride Flush Syringe 10 Ml) 10 ml IV BID [facility] Last Admin: 10/12/18 01:30 Dose: 10 ml Documented by: Sodium Chloride (Sodium Chloride Flush Syringe 10 Ml) 10 ml IV PRN PRN PRN Reason: LINE FLUSH medications reviewed/updated as required Review of Systems - Review of Systems ROS unobtainable: due to endotracheal tube, due to mental status Exam - Constitutional Vital Signs: Temp Pulse Resp BP Pulse Ox 97.2 F L 128 H 38 H 137/93 100 10/12/18 09:19 10/12/18 09:15 10/12/18 09:15 10/12/18 09:15 10/12/18 09:15 General appearance: mild distress, other (in ICU on vent) - EENT ENT: other (+ETT, +NGT) - Respiratory Respiratory: bilateral: diminished - Cardiovascular Rhythm: other (tachycardia) - Gastrointestinal General gastrointestinal: Present: soft, non-distended, normal bowel sounds, other (+midline scar from previous surgery) Rectal Exam: other (light brown/green stool-program director group work present during exam (Lissette JORGENSEN)) - Genitourinary Male Genitourinary: other (+regan) - Labs CBC & Chem 7: 10/12/18 06:43 10/12/18 04:57 Lab Results: Laboratory Results - last 24 hr 10/10/18 10/11/18 10/11/18 15:05 09:56 17:34 WBC RBC Hgb Hct MCV MCH MCHC RDW Plt Count Total Counted Seg Neuts % (Manual) Band Neutrophils % Lymphocytes % (Manual) Reactive Lymphs % (Man) Monocytes % (Manual) Eosinophils % (Manual) Basophils % (Manual) Metamyelocytes % Myelocytes % Promyelocytes % Blast Cells % Nucleated RBC % Seg Neutrophils # Man Band Neutrophils # Lymphocytes # (Manual) Abs React Lymphs (Man) Monocytes # (Manual) Eosinophils # (Manual) Basophils # (Manual) Metamyelocytes # Myelocytes # Promyelocytes # Blast Cells # Platelet Estimate Poikilocytosis Anisocytosis Microcytosis Ovalocytes [place] Cells Elliptocytes Acanthocytes (Spur) Schistocytes Hem Pathologist Commnt PT INR POC ABG pH POC ABG pCO2 POC ABG pO2 POC ABG HCO3 POC ABG Total CO2 POC ABG O2 Sat POC ABG Base Excess FiO2 Sodium Potassium Chloride Carbon Dioxide Anion Gap BUN Creatinine Estimated GFR BUN/Creatinine Ratio Glucose Osmolality Lactic Acid 2.60 H* 2.30 H* Uric Acid Calcium Phosphorus Magnesium Iron TIBC Ferritin Total Bilirubin AST ALT Alkaline Phosphatase Total Protein Albumin Albumin/Globulin Ratio Hepatitis A IgM Ab Hep Bs Antigen Hep B Core IgM Ab Hepatitis C Antibody Blood Type A POSITIVE Antibody Screen Negative Crossmatch See Detail 10/11/18 10/11/18 10/11/18 17:34 17:34 17:35 WBC RBC Hgb Hct MCV MCH MCHC RDW Plt Count Total Counted Seg Neuts % (Manual) Band Neutrophils % Lymphocytes % (Manual) Reactive Lymphs % (Man) Monocytes % (Manual) Eosinophils % (Manual) Basophils % (Manual) Metamyelocytes % Myelocytes % Promyelocytes % Blast Cells % Nucleated RBC % Seg Neutrophils # Man Band Neutrophils # Lymphocytes # (Manual) Abs React Lymphs (Man) Monocytes # (Manual) Eosinophils # (Manual) Basophils # (Manual) Metamyelocytes # Myelocytes # Promyelocytes # Blast Cells # Platelet Estimate Poikilocytosis Anisocytosis Microcytosis Ovalocytes Jani Cells Elliptocytes Acanthocytes (Spur) Schistocytes Hem Pathologist Commnt PT INR POC ABG pH POC ABG pCO2 POC ABG pO2 POC ABG HCO3 POC ABG Total CO2 POC ABG O2 Sat POC ABG Base Excess FiO2 Sodium 144 Potassium 3.4 L D Chloride 103.3 Carbon Dioxide 17 L Anion Gap 27 BUN 97 H Creatinine 7.3 H Estimated GFR 10 BUN/Creatinine Ratio 13 Glucose 135 H Osmolality 338 Lactic Acid Uric Acid Calcium 7.9 L Phosphorus 5.80 H Magnesium 2.70 H Iron TIBC Ferritin Total Bilirubin AST ALT Alkaline Phosphatase Total Protein Albumin Albumin/Globulin Ratio Hepatitis A IgM Ab Non-reactive Hep Bs Antigen Non-reactive Hep B Core IgM Ab Non-reactive Hepatitis C Antibody Non-reactive Blood Type Antibody Screen Crossmatch 10/11/18 10/11/18 10/11/18 17:35 17:36 19:21 WBC RBC Hgb Hct MCV MCH MCHC RDW Plt Count Total Counted Seg Neuts % (Manual) Band Neutrophils % Lymphocytes % (Manual) Reactive Lymphs % (Man) Monocytes % (Manual) Eosinophils % (Manual) Basophils % (Manual) Metamyelocytes % Myelocytes % Promyelocytes % Blast Cells % Nucleated RBC % Seg Neutrophils # Man Band Neutrophils # Lymphocytes # (Manual) Abs React Lymphs (Man) Monocytes # (Manual) Eosinophils # (Manual) Basophils # (Manual) Metamyelocytes # Myelocytes # Promyelocytes # Blast Cells # Platelet Estimate Poikilocytosis Anisocytosis Microcytosis Ovalocytes [place] Cells Elliptocytes Acanthocytes (Spur) Schistocytes Hem Pathologist Commnt PT INR POC ABG pH POC ABG pCO2 POC ABG pO2 POC ABG HCO3 POC ABG Total CO2 POC ABG O2 Sat POC ABG Base Excess FiO2 Sodium Potassium Chloride Carbon Dioxide Anion Gap BUN Creatinine Estimated GFR BUN/Creatinine Ratio Glucose Osmolality Lactic Acid 2.60 H* Uric Acid 13.4 H Calcium Phosphorus Magnesium Iron 147 TIBC 236 L Ferritin 96781.0 H Total Bilirubin AST ALT Alkaline Phosphatase Total Protein Albumin Albumin/Globulin Ratio Hepatitis A IgM Ab Hep Bs Antigen Hep B Core IgM Ab Hepatitis C Antibody Blood Type Antibody Screen Crossmatch 10/11/18 10/11/18 10/11/18 20:08 21:32 23:01 WBC RBC Hgb Hct MCV MCH MCHC RDW Plt Count Total Counted Seg Neuts % (Manual) Band Neutrophils % Lymphocytes % (Manual) Reactive Lymphs % (Man) Monocytes % (Manual) Eosinophils % (Manual) Basophils % (Manual) Metamyelocytes % Myelocytes % Promyelocytes % Blast Cells % Nucleated RBC % Seg Neutrophils # Man Band Neutrophils # Lymphocytes # (Manual) Abs React Lymphs (Man) Monocytes # (Manual) Eosinophils # (Manual) Basophils # (Manual) Metamyelocytes # Myelocytes # Promyelocytes # Blast Cells # Platelet Estimate Poikilocytosis Anisocytosis Microcytosis Ovalocytes [place] Cells Elliptocytes Acanthocytes (Spur) Schistocytes Hem Pathologist Commnt PT INR POC ABG pH POC ABG pCO2 POC ABG pO2 POC ABG HCO3 POC ABG Total CO2 POC ABG O2 Sat POC ABG Base Excess FiO2 Sodium 145 Potassium 3.8 Chloride 105.4 Carbon Dioxide 16 L Anion Gap 27 BUN 99 H Creatinine 8.1 H Estimated GFR 9 BUN/Creatinine Ratio 12 Glucose 147 H Osmolality Lactic Acid 2.60 H* 3.20 H* Uric Acid Calcium 7.7 L Phosphorus Magnesium 2.60 H Iron TIBC Ferritin Total Bilirubin AST ALT Alkaline Phosphatase Total Protein Albumin Albumin/Globulin Ratio Hepatitis A IgM Ab Hep Bs Antigen Hep B Core IgM Ab Hepatitis C Antibody Blood Type Antibody Screen Crossmatch 10/12/18 10/12/18 10/12/18 04:29 04:57 04:57 WBC 15.0 H RBC 1.75 L Hgb 5.6 L* Hct 16.7 L* D MCV 95 H MCH 32 MCHC 34 RDW 20.7 H Plt Count 49 L D Total Counted 100 Seg Neuts % (Manual) 90.0 H Band Neutrophils % 4.0 Lymphocytes % (Manual) 4.0 L Reactive Lymphs % (Man) 0 Monocytes % (Manual) 2.0 Eosinophils % (Manual) 0 Basophils % (Manual) 0 Metamyelocytes % 0 Myelocytes % 0 Promyelocytes % 0 Blast Cells % 0 Nucleated RBC % 12.0 H Seg Neutrophils # Man 12.3 H Band Neutrophils # 0.5 Lymphocytes # (Manual) 0.5 L Abs React Lymphs (Man) 0.0 Monocytes # (Manual) 0.3 Eosinophils # (Manual) 0.0 Basophils # (Manual) 0.0 Metamyelocytes # 0.0 Myelocytes # 0.0 Promyelocytes # 0.0 Blast Cells # 0.0 Platelet Estimate Consistent w auto Poikilocytosis 2+ Anisocytosis 1+ Microcytosis Few Ovalocytes 1+ Jani Cells 2+ Elliptocytes Few Acanthocytes (Spur) 1+ Schistocytes 1+ Hem Pathologist Commnt No PT INR POC ABG pH 7.493 H POC ABG pCO2 23.1 L POC ABG pO2 176 H POC ABG HCO3 17.7 POC ABG Total CO2 18 POC ABG O2 Sat 100 POC ABG Base Excess -6 FiO2 35 Sodium 145 Potassium 3.0 L D Chloride 105.1 Carbon Dioxide 15 L Anion Gap 28 BUN 102 H Creatinine 8.8 H Estimated GFR 8 BUN/Creatinine Ratio 12 Glucose 110 H Osmolality Lactic Acid Uric Acid Calcium 7.6 L Phosphorus 5.10 H Magnesium 2.50 H Iron TIBC Ferritin Total Bilirubin 0.80 AST 667 H ALT 298 H Alkaline Phosphatase 154 H Total Protein 6.3 Albumin 2.8 L Albumin/Globulin Ratio 0.8 Hepatitis A IgM Ab Hep Bs Antigen Hep B Core IgM Ab Hepatitis C Antibody Blood Type Antibody Screen Crossmatch 10/12/18 10/12/18 10/12/18 04:57 05:59 06:43 WBC RBC Hgb 5.8 L* Hct 17.2 L* MCV MCH MCHC RDW Plt Count Total Counted Seg Neuts % (Manual) Band Neutrophils % Lymphocytes % (Manual) Reactive Lymphs % (Man) Monocytes % (Manual) Eosinophils % (Manual) Basophils % (Manual) Metamyelocytes % Myelocytes % Promyelocytes % Blast Cells % Nucleated RBC % Seg Neutrophils # Man Band Neutrophils # Lymphocytes # (Manual) Abs React Lymphs (Man) Monocytes # (Manual) Eosinophils # (Manual) Basophils # (Manual) Metamyelocytes # Myelocytes # Promyelocytes # Blast Cells # Platelet Estimate Poikilocytosis Anisocytosis Microcytosis Ovalocytes [place] Cells Elliptocytes Acanthocytes (Spur) Schistocytes Hem Pathologist Commnt PT 18.0 H INR 1.39 H POC ABG pH POC ABG pCO2 POC ABG pO2 POC ABG HCO3 POC ABG Total CO2 POC ABG O2 Sat POC ABG Base Excess FiO2 Sodium Potassium Chloride Carbon Dioxide Anion Gap BUN Creatinine Estimated GFR BUN/Creatinine Ratio Glucose Osmolality Lactic Acid 1.80 Uric Acid Calcium Phosphorus Magnesium Iron TIBC Ferritin Total Bilirubin AST ALT Alkaline Phosphatase Total Protein Albumin Albumin/Globulin Ratio Hepatitis A IgM Ab Hep Bs Antigen Hep B Core IgM Ab Hepatitis C Antibody Blood Type Antibody Screen Crossmatch Assessment and Plan 1.anemia 2.thrombocytopenia 3.HIV/AIDS -iron WNL -plt 49, INR 1.39 -H/H 5.8/17.2- PRBCs transfusing -continue to monitor H/H and transfuse as needed -No active signs of GI bleeding- NG tube w/o bloody drainage; rectal exam rev ealed light brown/green stool -abd CT pending -etiology-most likely multifactorial (CKD, chronic infection of HIV, etc.) -no plans for endoscopic evaluation at this time given no clinical evidence of GI bleeding unless overt bleeding develops -ID and hematology following -daily PPI -continue supportive care 4.elevated LFTs -T.mode 0.80, AST 667, ALT 298, alk phos 154 -hepatitis panel negative -etiology unclear -abd U/S -continue to trend labs and supportive care <MARGARITA AUSTIN - Last Filed: 10/12/18 12:55> Medications and Allergies Active Meds: Active Medications Albuterol (Proventil) 2.5 mg IH Q3HRT PRN PRN Reason: Shortness Of Breath Amlodipine Besylate (Norvasc) 10 mg PO QDAY RUBI Last Admin: 10/11/18 10:49 Dose: 10 mg Documented by: Lipase/Protease/Amylase (Pancreaze Dr 10,500 Unit) 1 each FEEDTUBE PRN PRN PRN Reason: For Clogged Feeding Tube Atovaquone (Mepron) 750 mg PO BID RUBI Last Admin: 10/11/18 22:36 Dose: 750 mg Documented by: Hydrophilic Ointment (Vaseline Lip Therapy) 1 applic TP Q2HR PRN PRN Reason: Dry Lips Propofol (Diprivan 10 Mg/Ml) 1,000 mg in 100 mls @ 2.204 mls/hr IV TITR RUBI; Protocol Last Admin: 10/12/18 10:50 Dose: 30 mcg/kg/min, 13.227 mls/hr Documented by: Nicardipine HCl 50 mg/ Sodium (Chloride) 250 mls @ 25 mls/hr IV TITR RUBI; Protocol Metronidazole (Flagyl 500 Mg/100 Ml) 500 mg in 100 mls @ 100 mls/hr IV Q8HR RUBI; Protocol Last Admin: 10/12/18 06:02 Dose: 100 mls/hr Documented by: Fluconazole (Diflucan) 200 mls @ 100 mls/hr IV Q24HR RUBI; Protocol Last Admin: 10/11/18 20:09 Dose: 100 mls/hr Documented by: Sodium Chloride (Nacl 0.45% 1000 Ml) 1,000 mls @ 150 mls/hr IV DIRECT RUBI Last Admin: 10/12/18 06:05 Dose: 150 mls/hr Documented by: Sodium Chloride 172 meq/ (Dextrose) 543 mls @ 25 mls/hr IV ONCE RUBI Multi-Ingred Cream/Lotion/Oil/Oint (Artificial Tears Ophth Oint) 1 applic OU Q4HR PRN PRN Reason: Dry Eye(s) Multivitamins (Theragran Tab) 1 each PO DAILY [facility] Last Admin: 10/11/18 10:49 Dose: 1 each Documented by: Pantoprazole Sodium (Protonix) 40 mg IV BID RUBI Simple Syrup (Simple Syrup) 15 ml FEEDTUBE PRN PRN PRN Reason: Hypoglycemia Simple Syrup (Simple Syrup) 30 ml FEEDTUBE PRN PRN PRN Reason: Hypoglycemia Sodium Bicarbonate (Sodium Bicarbonate) 325 mg FEEDTUBE PRN PRN PRN Reason: For Clogged Feeding Tube Sodium Chloride (Sodium Chloride Flush Syringe 10 Ml) 10 ml IV BID RUBI Last Admin: 10/12/18 01:30 Dose: 10 ml Documented by: Sodium Chloride (Sodium Chloride Flush Syringe 10 Ml) 10 ml IV PRN PRN PRN Reason: LINE FLUSH Exam - Constitutional Vital Signs: Temp Pulse Resp BP Pulse Ox 97.2 F L 97 H 33 H 138/78 100 10/12/18 09:19 10/12/18 12:50 10/12/18 11:11 10/12/18 12:50 10/12/18 12:50 - Labs CBC & Chem 7: 10/12/18 06:43 10/12/18 04:57 Lab Results: Laboratory Results - last 24 hr 10/10/18 10/11/18 10/11/18 15:05 17:34 17:34 WBC RBC Hgb Hct MCV MCH MCHC RDW Plt Count Total Counted Seg Neuts % (Manual) Band Neutrophils % Lymphocytes % (Manual) Reactive Lymphs % (Man) Monocytes % (Manual) Eosinophils % (Manual) Basophils % (Manual) Metamyelocytes % Myelocytes % Promyelocytes % Blast Cells % Nucleated RBC % Seg Neutrophils # Man Band Neutrophils # Lymphocytes # (Manual) Abs React Lymphs (Man) Monocytes # (Manual) Eosinophils # (Manual) Basophils # (Manual) Metamyelocytes # Myelocytes # Promyelocytes # Blast Cells # WBC Morphology Hypersegmented Neuts Hyposegmented Neuts Hypogranular Neuts Smudge Cells Toxic Granulation Toxic Vacuolation Dohle Bodies Pelger-Huet Anomaly Kartik Rods Platelet Estimate Clumped Platelets Plt Clumps, EDTA Large Platelets Giant Platelets Platelet Satelliting Plt Morphology Comment RBC Morphology Dimorphic RBCs Polychromasia Hypochromasia Poikilocytosis Anisocytosis Microcytosis Macrocytosis Spherocytes Pappenheimer Bodies Sickle Cells Target Cells Tear Drop Cells Ovalocytes Helmet Cells [place] Bodies Carmen Rings Jani Cells Bite Cells Crenated Cell Elliptocytes Acanthocytes (Spur) Rouleaux Hemoglobin C Crystals Schistocytes Malaria parasites Jv Bodies Hem Pathologist Commnt PT INR POC ABG pH POC ABG pCO2 POC ABG pO2 POC ABG HCO3 POC ABG Total CO2 POC ABG O2 Sat POC ABG Base Excess FiO2 Sodium 144 Potassium 3.4 L D Chloride 103.3 Carbon Dioxide 17 L Anion Gap 27 BUN 97 H Creatinine 7.3 H Estimated GFR 10 BUN/Creatinine Ratio 13 Glucose 135 H Osmolality Lactic Acid 2.30 H* Uric Acid Calcium 7.9 L Phosphorus 5.80 H Magnesium 2.70 H Iron TIBC Ferritin Total Bilirubin AST ALT Alkaline Phosphatase Total Protein Albumin Albumin/Globulin Ratio RPR Titer RPR Hepatitis A IgM Ab Hep Bs Antigen Hep B Core IgM Ab Hepatitis C Antibody Blood Type A POSITIVE Antibody Screen Negative Crossmatch See Detail 10/11/18 10/11/18 10/11/18 17:34 17:35 17:35 WBC RBC Hgb Hct MCV MCH MCHC RDW Plt Count Total Counted Seg Neuts % (Manual) Band Neutrophils % Lymphocytes % (Manual) Reactive Lymphs % (Man) Monocytes % (Manual) Eosinophils % (Manual) Basophils % (Manual) Metamyelocytes % Myelocytes % Promyelocytes % Blast Cells % Nucleated RBC % Seg Neutrophils # Man Band Neutrophils # Lymphocytes # (Manual) Abs React Lymphs (Man) Monocytes # (Manual) Eosinophils # (Manual) Basophils # (Manual) Metamyelocytes # Myelocytes # Promyelocytes # Blast Cells # WBC Morphology Hypersegmented Neuts Hyposegmented Neuts Hypogranular Neuts Smudge Cells Toxic Granulation Toxic Vacuolation Dohle Bodies Pelger-Huet Anomaly Kartik Rods Platelet Estimate Clumped Platelets Plt Clumps, EDTA Large Platelets Giant Platelets Platelet Satelliting Plt Morphology Comment RBC Morphology Dimorphic RBCs Polychromasia Hypochromasia Poikilocytosis Anisocytosis Microcytosis Macrocytosis Spherocytes Pappenheimer Bodies Sickle Cells Target Cells Tear Drop Cells Ovalocytes Helmet Cells [place] Bodies Carmen Rings Jani Cells Bite Cells Crenated Cell Elliptocytes Acanthocytes (Spur) Rouleaux Hemoglobin C Crystals Schistocytes Malaria parasites Jv Bodies Hem Pathologist Commnt PT INR POC ABG pH POC ABG pCO2 POC ABG pO2 POC ABG HCO3 POC ABG Total CO2 POC ABG O2 Sat POC ABG Base Excess FiO2 Sodium Potassium Chloride Carbon Dioxide Anion Gap BUN Creatinine Estimated GFR BUN/Creatinine Ratio Glucose Osmolality 338 Lactic Acid Uric Acid Calcium Phosphorus Magnesium Iron TIBC Ferritin 71246.0 H Total Bilirubin AST ALT Alkaline Phosphatase Total Protein Albumin Albumin/Globulin Ratio RPR Titer RPR Hepatitis A IgM Ab Non-reactive Hep Bs Antigen Non-reactive Hep B Core IgM Ab Non-reactive Hepatitis C Antibody Non-reactive Blood Type Antibody Screen Crossmatch 10/11/18 10/11/18 10/11/18 17:36 17:37 19:21 WBC RBC Hgb Hct MCV MCH MCHC RDW Plt Count Total Counted Seg Neuts % (Manual) Band Neutrophils % Lymphocytes % (Manual) Reactive Lymphs % (Man) Monocytes % (Manual) Eosinophils % (Manual) Basophils % (Manual) Metamyelocytes % Myelocytes % Promyelocytes % Blast Cells % Nucleated RBC % Seg Neutrophils # Man Band Neutrophils # Lymphocytes # (Manual) Abs React Lymphs (Man) Monocytes # (Manual) Eosinophils # (Manual) Basophils # (Manual) Metamyelocytes # Myelocytes # Promyelocytes # Blast Cells # WBC Morphology Hypersegmented Neuts Hyposegmented Neuts Hypogranular Neuts Smudge Cells Toxic Granulation Toxic Vacuolation Dohle Bodies Pelger-Huet Anomaly Kartik Rods Platelet Estimate Clumped Platelets Plt Clumps, EDTA Large Platelets Giant Platelets Platelet Satelliting Plt Morphology Comment RBC Morphology Dimorphic RBCs Polychromasia Hypochromasia Poikilocytosis Anisocytosis Microcytosis Macrocytosis Spherocytes Pappenheimer Bodies Sickle Cells Target Cells Tear Drop Cells Ovalocytes Helmet Cells [address] Bodies Carmen Rings [place] Cells Bite Cells Crenated Cell Elliptocytes Acanthocytes (Spur) Rouleaux Hemoglobin C Crystals Schistocytes Malaria parasites Jv Bodies Hem Pathologist Commnt PT INR POC ABG pH POC ABG pCO2 POC ABG pO2 POC ABG HCO3 POC ABG Total CO2 POC ABG O2 Sat POC ABG Base Excess FiO2 Sodium Potassium Chloride Carbon Dioxide Anion Gap BUN Creatinine Estimated GFR BUN/Creatinine Ratio Glucose Osmolality Lactic Acid 2.60 H* Uric Acid 13.4 H Calcium Phosphorus Magnesium Iron 147 TIBC 236 L Ferritin Total Bilirubin AST ALT Alkaline Phosphatase Total Protein Albumin Albumin/Globulin Ratio RPR Titer 1:32 RPR Reactive Hepatitis A IgM Ab Hep Bs Antigen Hep B Core IgM Ab Hepatitis C Antibody Blood Type Antibody Screen Crossmatch 10/11/18 10/11/18 10/11/18 20:08 21:32 23:01 WBC RBC Hgb Hct MCV MCH MCHC RDW Plt Count Total Counted Seg Neuts % (Manual) Band Neutrophils % Lymphocytes % (Manual) Reactive Lymphs % (Man) Monocytes % (Manual) Eosinophils % (Manual) Basophils % (Manual) Metamyelocytes % Myelocytes % Promyelocytes % Blast Cells % Nucleated RBC % Seg Neutrophils # Man Band Neutrophils # Lymphocytes # (Manual) Abs React Lymphs (Man) Monocytes # (Manual) Eosinophils # (Manual) Basophils # (Manual) Metamyelocytes # Myelocytes # Promyelocytes # Blast Cells # WBC Morphology Hypersegmented Neuts Hyposegmented Neuts Hypogranular Neuts Smudge Cells Toxic Granulation Toxic Vacuolation Dohle Bodies Pelger-Huet Anomaly Kartik Rods Platelet Estimate Clumped Platelets Plt Clumps, EDTA Large Platelets Giant Platelets Platelet Satelliting Plt Morphology Comment RBC Morphology Dimorphic RBCs Polychromasia Hypochromasia Poikilocytosis Anisocytosis Microcytosis Macrocytosis Spherocytes Pappenheimer Bodies Sickle Cells Target Cells Tear Drop Cells Ovalocytes Helmet Cells [address] Bodies Carmen Rings Jani Cells Bite Cells Crenated Cell Elliptocytes Acanthocytes (Spur) Rouleaux Hemoglobin C Crystals Schistocytes Malaria parasites Jv Bodies Hem Pathologist Commnt PT INR POC ABG pH POC ABG pCO2 POC ABG pO2 POC ABG HCO3 POC ABG Total CO2 POC ABG O2 Sat POC ABG Base Excess FiO2 Sodium 145 Potassium 3.8 Chloride 105.4 Carbon Dioxide 16 L Anion Gap 27 BUN 99 H Creatinine 8.1 H Estimated GFR 9 BUN/Creatinine Ratio 12 Glucose 147 H Osmolality Lactic Acid 2.60 H* 3.20 H* Uric Acid Calcium 7.7 L Phosphorus Magnesium 2.60 H Iron TIBC Ferritin Total Bilirubin AST ALT Alkaline Phosphatase Total Protein Albumin Albumin/Globulin Ratio RPR Titer RPR Hepatitis A IgM Ab Hep Bs Antigen Hep B Core IgM Ab Hepatitis C Antibody Blood Type Antibody Screen Crossmatch 10/12/18 10/12/18 10/12/18 04:29 04:57 04:57 WBC 15.0 H RBC 1.75 L Hgb 5.6 L* Hct 16.7 L* D MCV 95 H MCH 32 MCHC 34 RDW 20.7 H Plt Count 49 L D Total Counted 100 Seg Neuts % (Manual) 90.0 H Band Neutrophils % 4.0 Lymphocytes % (Manual) 4.0 L Reactive Lymphs % (Man) 0 Monocytes % (Manual) 2.0 Eosinophils % (Manual) 0 Basophils % (Manual) 0 Metamyelocytes % 0 Myelocytes % 0 Promyelocytes % 0 Blast Cells % 0 Nucleated RBC % 12.0 H Seg Neutrophils # Man 12.3 H Band Neutrophils # 0.5 Lymphocytes # (Manual) 0.5 L Abs React Lymphs (Man) 0.0 Monocytes # (Manual) 0.3 Eosinophils # (Manual) 0.0 Basophils # (Manual) 0.0 Metamyelocytes # 0.0 Myelocytes # 0.0 Promyelocytes # 0.0 Blast Cells # 0.0 WBC Morphology Not Reportable Hypersegmented Neuts Not Reportable Hyposegmented Neuts Not Reportable Hypogranular Neuts Not Reportable Smudge Cells Not Reportable Toxic Granulation Not Reportable Toxic Vacuolation Not Reportable Dohle Bodies Not Reportable Pelger-Huet Anomaly Not Reportable Kartik Rods Not Reportable Platelet Estimate Consistent w auto Clumped Platelets Not Reportable Plt Clumps, EDTA Not Reportable Large Platelets Not Reportable Giant Platelets Not Reportable Platelet Satelliting Not Reportable Plt Morphology Comment Not Reportable RBC Morphology Not Reportable Dimorphic RBCs Not Reportable Polychromasia Not Reportable Hypochromasia Not Reportable Poikilocytosis 2+ Anisocytosis 1+ Microcytosis Few Macrocytosis Not Reportable Spherocytes Not Reportable Pappenheimer Bodies Not Reportable Sickle Cells Not Reportable Target Cells Not Reportable Tear Drop Cells Not Reportable Ovalocytes 1+ Helmet Cells Not Reportable [place] Bodies Not Reportable Carmen Rings Not Reportable Lodi Cells 2+ Bite Cells Not Reportable Crenated Cell Not Reportable Elliptocytes Few Acanthocytes (Spur) 1+ Rouleaux Not Reportable Hemoglobin C Crystals Not Reportable Schistocytes 1+ Malaria parasites Not Reportable Jv Bodies Not Reportable Hem Pathologist Commnt No PT INR POC ABG pH 7.493 H POC ABG pCO2 23.1 L POC ABG pO2 176 H POC ABG HCO3 17.7 POC ABG Total CO2 18 POC ABG O2 Sat 100 POC ABG Base Excess -6 FiO2 35 Sodium 145 Potassium 3.0 L D Chloride 105.1 Carbon Dioxide 15 L Anion Gap 28 BUN 102 H Creatinine 8.8 H Estimated GFR 8 BUN/Creatinine Ratio 12 Glucose 110 H Osmolality Lactic Acid Uric Acid Calcium 7.6 L Phosphorus 5.10 H Magnesium 2.50 H Iron TIBC Ferritin Total Bilirubin 0.80 AST 667 H ALT 298 H Alkaline Phosphatase 154 H Total Protein 6.3 Albumin 2.8 L Albumin/Globulin Ratio 0.8 RPR Titer RPR Hepatitis A IgM Ab Hep Bs Antigen Hep B Core IgM Ab Hepatitis C Antibody Blood Type Antibody Screen Crossmatch 10/12/18 10/12/18 10/12/18 04:57 05:59 06:43 WBC RBC Hgb 5.8 L* Hct 17.2 L* MCV MCH MCHC RDW Plt Count Total Counted Seg Neuts % (Manual) Band Neutrophils % Lymphocytes % (Manual) Reactive Lymphs % (Man) Monocytes % (Manual) Eosinophils % (Manual) Basophils % (Manual) Metamyelocytes % Myelocytes % Promyelocytes % Blast Cells % Nucleated RBC % Seg Neutrophils # Man Band Neutrophils # Lymphocytes # (Manual) Abs React Lymphs (Man) Monocytes # (Manual) Eosinophils # (Manual) Basophils # (Manual) Metamyelocytes # Myelocytes # Promyelocytes # Blast Cells # WBC Morphology Hypersegmented Neuts Hyposegmented Neuts Hypogranular Neuts Smudge Cells Toxic Granulation Toxic Vacuolation Dohle Bodies Pelger-Huet Anomaly Kartik Rods Platelet Estimate Clumped Platelets Plt Clumps, EDTA Large Platelets Giant Platelets Platelet Satelliting Plt Morphology Comment RBC Morphology Dimorphic RBCs Polychromasia Hypochromasia Poikilocytosis Anisocytosis Microcytosis Macrocytosis Spherocytes Pappenheimer Bodies Sickle Cells Target Cells Tear Drop Cells Ovalocytes Helmet Cells [address] Bodies Carmen Rings Lodi Cells Bite Cells Crenated Cell Elliptocytes Acanthocytes (Spur) Rouleaux Hemoglobin C Crystals Schistocytes Malaria parasites Jv Bodies Hem Pathologist Commnt PT 18.0 H INR 1.39 H POC ABG pH POC ABG pCO2 POC ABG pO2 POC ABG HCO3 POC ABG Total CO2 POC ABG O2 Sat POC ABG Base Excess FiO2 Sodium Potassium Chloride Carbon Dioxide Anion Gap BUN Creatinine Estimated GFR BUN/Creatinine Ratio Glucose Osmolality Lactic Acid 1.80 Uric Acid Calcium Phosphorus Magnesium Iron TIBC Ferritin Total Bilirubin AST ALT Alkaline Phosphatase Total Protein Albumin Albumin/Globulin Ratio RPR Titer RPR Hepatitis A IgM Ab Hep Bs Antigen Hep B Core IgM Ab Hepatitis C Antibody Blood Type Antibody Screen Crossmatch Assessment and Plan Pt seen and examined. Agree with note above. Severe anemia, likely multifactorial, however no overt gi bleeding; conservative management from gi stand point. trend liver enzymes and f/u RUQ US.
[2018-10-12] MEDS: DIPRIVAN 10 MG/ML 1,000 MG/100 ML BOTTLE IV SCH ×3 (10:50→20:44)
[2018-10-12] MEDS ORDERED: NACL 0.9% 500 ML 500 ML ONE (11:32)
--- NOTE | 2018-10-12 11:33 | Progress Note ---
Assessment and Plan Cultures: Blood culture 10/10/2018 no growth. Sputum culture 10/10/2018 Ana Paula albicans. Crypto Ag 10/10/2018 neg. Assessment: 43 y/o male with history of HIV (unknown CD4/VL/ART intake), HTN, CVA 6 months ago at [place], Nicotine Dependence, Malnutrition; admitted on 10/10/2018 due to AMS (confusion/lethargy) and slurred speech for 24 h: 1) Severe SIRS versus sepsis: Present on admission, manifested by fever, tachycardia, increased lactate. Unclear etiology ? Hypertensive encephalopathy +/- aspiration pneumonia +/- opportunistic brain infection ? Cryptococcal meningitis ? PJP - CXR neg - Unable to obtain UA - patient is anuric - BNP 70K - Troponin 0.2 - LDH 2242 2) Acute hypoxemic respiratory failure: for airway protection +/- ? pneumonia. Repeat CXR no consolidations. Ana Paula in tracha sp likely a colonizer. 3) Acute encephalopathy: from hypertensive urgency +/- brain opportunistic infe ction. DDx: Neurosyphilis,VZV/CMV encephalitis, toxoplasma encephalitis versus [employer] lymphoma versus less likely PML - CT head showed bilateral chronic ischemic changes. - Brain MRI showed areas of edema in the basal ganglia and thalami bilaterally, within the jamari and in the cerebral hemispheres bilaterally in the subcortical and deep white matter and in portions of the cortex, areas of enceph alomalacia in the basal ganglia bilaterally with evidence of previous hemorrhage or mineral deposition and numerous small foci of acute infarct in the basal ganglia bilaterally, subinsular regions bilaterally and medial temporal lobes bilaterally and possibly in the occipital cortex bilaterally. 4) Anemia/thrombocytopenia ? unclear etiology 5) Acute on CKD or SHRUTHI ? unclear etiology: r/o rhabdo ?ischemia 6) Elevated lactate ? Lactate 17. 7) DM: uncontrolled 8) Elevated LFTs ? Recommendations: - start ganciclovir renally adjusted - it backorder - start acyclovir and penicillin G - continue meprom 750 MG PO bid (SULFA ALLERGY) for PJP treatment - stop ceftriaxone - follow-up blood cultures - f/u RPR, Toxo IgG, CMV DNA PCR and AFB-blood culture - obtain lumbar punture when stable for opening pressure and send CSF specimen for Gram stain and culture, glucose, protein, VDRL, HSV-PCR, EBV-PCR, EDIE virus PCR, T.gondii PCR, cryptococcal antigen and culture - obtain CD4, HIV-viral load - abdominal CT w/o contrast eval bowel ischemi when stable - viral hepatitis panel - records from HIV clinic - attempted to call family,left message - stop fluconazole Grim prognosis unfortunately. Will follow. Praveena Colunga MD Infectious Diseases Personnel Worker [facility] ([facility]) M [phone] O [phone] Subjective Date of service: 10/12/18 Principal diagnosis: SIRS Interval history: Remains critically ill, on the vent, tachycardic at 130s, sweating, per nursing staff posturing. Tmax 101.8 Review of Systems: unable to obtian Objective - Exam Narrative Exam: General appearance: Alert eye open on the vent FIO2 35% in NAD, no follows commands diaphoretic Eyes: anicteric sclerae, moist conjunctivae; no lid-lag; PERRLA HENT: Atraumatic; oropharynx +ETT Neck: Trachea midline; supple, no thyromegaly or lymphadenopathy Lungs: CTA, with normal respiratory effort and no intercostal retractions CV: tachcyardic Abdomen: Soft, non-tender; no masses or hepatosplenomegaly Extremities: No peripheral edema or extremity lymphadenopathy Skin: Normal temperature, turgor and texture; no rash, ulcers or subcutaneous nodules Psych: alert intubated not agitated Neuro: alert not agitated - Constitutional Vitals: Vital Signs Temp Pulse Resp BP Pulse Ox 97.2 F L 132 H 33 H 141/93 100 10/12/18 09:19 10/12/18 11:11 10/12/18 11:11 10/12/18 11:11 10/12/18 11:00 Temperature -Last 24 Hours Temperature 97.2 F Temperature 101.8 F Temperature 101.8 F Temperature 99.4 F Temperature 100.5 F Temperature 99.2 F Temperature 97.9 F Temperature 98.8 F Temperature 98.8 F - Labs CBC & Chem 7: 10/12/18 06:43 10/12/18 04:57 Labs: Abnormal lab results 10/10/18 10/11/18 10/11/18 Range/Units 15:05 17:34 17:34 WBC (4.5-11.0) K/mm3 RBC (3.65-5.03) M/mm3 Hgb (11.8-15.2) gm/dl Hct (35.5-45.6) % MCV (84-94) fl RDW (13.2-15.2) % Plt Count (140-440) K/mm3 Seg Neuts % (Manual) (40.0-70.0) % Lymphocytes % (Manual) (13.4-35.0) % Nucleated RBC % (0.0-0.9) % Seg Neutrophils # Man (1.8-7.7) K/mm3 Lymphocytes # (Manual) (1.2-5.4) K/mm3 PT (12.2-14.9) Sec. INR (0.87-1.13) POC ABG pH (7.35-7.45) POC ABG pCO2 (35-45) POC ABG pO2 (80-105) Potassium 3.4 L D (3.6-5.0) mmol/L Carbon Dioxide 17 L (22-30) mmol/L BUN 97 H (9-20) mg/dL Creatinine 7.3 H (0.8-1.5) mg/dL Glucose 135 H (75-100) mg/dL Lactic Acid 2.30 H* (0.7-2.0) mmol/L Uric Acid (3.5-7.6) mg/dL Calcium 7.9 L (8.4-10.2) mg/dL Phosphorus 5.80 H (2.5-4.5) mg/dL Magnesium 2.70 H (1.7-2.3) mg/dL TIBC (250-450) mcg/dL Ferritin (13.0-400.0) ng/mL AST (5-40) units/L ALT (7-56) units/L Alkaline Phosphatase (35-129) units/L Albumin (3.9-5) g/dL Crossmatch See Detail 10/11/18 10/11/18 10/11/18 Range/Units 17:35 17:36 19:21 WBC (4.5-11.0) K/mm3 RBC (3.65-5.03) M/mm3 Hgb (11.8-15.2) gm/dl Hct (35.5-45.6) % MCV (84-94) fl RDW (13.2-15.2) % Plt Count (140-440) K/mm3 Seg Neuts % (Manual) (40.0-70.0) % Lymphocytes % (Manual) (13.4-35.0) % Nucleated RBC % (0.0-0.9) % Seg Neutrophils # Man (1.8-7.7) K/mm3 Lymphocytes # (Manual) (1.2-5.4) K/mm3 PT (12.2-14.9) Sec. INR (0.87-1.13) POC ABG pH (7.35-7.45) POC ABG pCO2 (35-45) POC ABG pO2 (80-105) Potassium (3.6-5.0) mmol/L Carbon Dioxide (22-30) mmol/L BUN (9-20) mg/dL Creatinine (0.8-1.5) mg/dL Glucose (75-100) mg/dL Lactic Acid 2.60 H* (0.7-2.0) mmol/L Uric Acid 13.4 H (3.5-7.6) mg/dL Calcium (8.4-10.2) mg/dL Phosphorus (2.5-4.5) mg/dL Magnesium (1.7-2.3) mg/dL TIBC 236 L (250-450) mcg/dL Ferritin 32234.0 H (13.0-400.0) ng/mL AST (5-40) units/L ALT (7-56) units/L Alkaline Phosphatase (35-129) units/L Albumin (3.9-5) g/dL Crossmatch 10/11/18 10/11/18 10/11/18 Range/Units 20:08 21:32 23:01 WBC (4.5-11.0) K/mm3 RBC (3.65-5.03) M/mm3 Hgb (11.8-15.2) gm/dl Hct (35.5-45.6) % MCV (84-94) fl RDW (13.2-15.2) % Plt Count (140-440) K/mm3 Seg Neuts % (Manual) (40.0-70.0) % Lymphocytes % (Manual) (13.4-35.0) % Nucleated RBC % (0.0-0.9) % Seg Neutrophils # Man (1.8-7.7) K/mm3 Lymphocytes # (Manual) (1.2-5.4) K/mm3 PT (12.2-14.9) Sec. INR (0.87-1.13) POC ABG pH (7.35-7.45) POC ABG pCO2 (35-45) POC ABG pO2 (80-105) Potassium (3.6-5.0) mmol/L Carbon Dioxide 16 L (22-30) mmol/L BUN 99 H (9-20) mg/dL Creatinine 8.1 H (0.8-1.5) mg/dL Glucose 147 H (75-100) mg/dL Lactic Acid 2.60 H* 3.20 H* (0.7-2.0) mmol/L Uric Acid (3.5-7.6) mg/dL Calcium 7.7 L (8.4-10.2) mg/dL Phosphorus (2.5-4.5) mg/dL Magnesium 2.60 H (1.7-2.3) mg/dL TIBC (250-450) mcg/dL Ferritin (13.0-400.0) ng/mL AST (5-40) units/L ALT (7-56) units/L Alkaline Phosphatase (35-129) units/L Albumin (3.9-5) g/dL Crossmatch 10/12/18 10/12/18 10/12/18 Range/Units 04:29 04:57 04:57 WBC 15.0 H (4.5-11.0) K/mm3 RBC 1.75 L (3.65-5.03) M/mm3 Hgb 5.6 L* (11.8-15.2) gm/dl Hct 16.7 L* D (35.5-45.6) % MCV 95 H (84-94) fl RDW 20.7 H (13.2-15.2) % Plt Count 49 L D (140-440) K/mm3 Seg Neuts % (Manual) 90.0 H (40.0-70.0) % Lymphocytes % (Manual) 4.0 L (13.4-35.0) % Nucleated RBC % 12.0 H (0.0-0.9) % Seg Neutrophils # Man 12.3 H (1.8-7.7) K/mm3 Lymphocytes # (Manual) 0.5 L (1.2-5.4) K/mm3 PT (12.2-14.9) Sec. INR (0.87-1.13) POC ABG pH 7.493 H (7.35-7.45) POC ABG pCO2 23.1 L (35-45) POC ABG pO2 176 H (80-105) Potassium 3.0 L D (3.6-5.0) mmol/L Carbon Dioxide 15 L (22-30) mmol/L BUN 102 H (9-20) mg/dL Creatinine 8.8 H (0.8-1.5) mg/dL Glucose 110 H (75-100) mg/dL Lactic Acid (0.7-2.0) mmol/L Uric Acid (3.5-7.6) mg/dL Calcium 7.6 L (8.4-10.2) mg/dL Phosphorus 5.10 H (2.5-4.5) mg/dL Magnesium 2.50 H (1.7-2.3) mg/dL TIBC (250-450) mcg/dL Ferritin (13.0-400.0) ng/mL AST 667 H (5-40) units/L ALT 298 H (7-56) units/L Alkaline Phosphatase 154 H (35-129) units/L Albumin 2.8 L (3.9-5) g/dL Crossmatch 10/12/18 10/12/18 Range/Units 04:57 06:43 WBC (4.5-11.0) K/mm3 RBC (3.65-5.03) M/mm3 Hgb 5.8 L* (11.8-15.2) gm/dl Hct 17.2 L* (35.5-45.6) % MCV (84-94) fl RDW (13.2-15.2) % Plt Count (140-440) K/mm3 Seg Neuts % (Manual) (40.0-70.0) % Lymphocytes % (Manual) (13.4-35.0) % Nucleated RBC % (0.0-0.9) % Seg Neutrophils # Man (1.8-7.7) K/mm3 Lymphocytes # (Manual) (1.2-5.4) K/mm3 PT 18.0 H (12.2-14.9) Sec. INR 1.39 H (0.87-1.13) POC ABG pH (7.35-7.45) POC ABG pCO2 (35-45) POC ABG pO2 (80-105) Potassium (3.6-5.0) mmol/L Carbon Dioxide (22-30) mmol/L BUN (9-20) mg/dL Creatinine (0.8-1.5) mg/dL Glucose (75-100) mg/dL Lactic Acid (0.7-2.0) mmol/L Uric Acid (3.5-7.6) mg/dL Calcium (8.4-10.2) mg/dL Phosphorus (2.5-4.5) mg/dL Magnesium (1.7-2.3) mg/dL TIBC (250-450) mcg/dL Ferritin (13.0-400.0) ng/mL AST (5-40) units/L ALT (7-56) units/L Alkaline Phosphatase (35-129) units/L Albumin (3.9-5) g/dL Crossmatch
--- NOTE | 2018-10-12 11:48 | Event Note ---
Date: 10/12/18 Patient with HIV/AIDS, multiple acute brain infarcts, intubated with renal failure.Also anemic requiring blood transfusion. As per nephrology needs initiation of HD requiring VasCath. Currently pending urology for regan placement/evaluation. will reassess need for VasCath and diascuss with family Prognosis is poor
[2018-10-12] MEDS ORDERED: D5W IV SCH (12:30)
[2018-10-12] MEDS ORDERED: NACL IV SCH (12:30)
--- NOTE | 2018-10-12 12:38 | Progress Note ---
Assessment and Plan 43 y/o male with acute encephalopathy, acute respiratory failure, and presumed acute vs acute on chronic renal failure. 1. Will speak with ID about reactive RPR. Titer is low 2. Cardene drip for BP control, currently on hold right now. 3. HD to start today. Once suprapubic was placed, not much urinary output. Still will need HD. Vascular will place vascath, later today. 4. MRI shows multiple new strokes. Not sure if this is related to infection (syphillis) or embolic vs hemorrhagic. IMS has consulted neurology. There is s ome swelling. May need to start hypertonic saline (2%) to run Na higher but will await their (neurology) recs 5. Continue vent support and other empiric abx therapy 6. Worsening anemia and etiology is not exactly known. Getting RBC's now as well as platelets. Agree with concern for TTP. Sent peripheral smear. Heme is consulted and will evaluate patient. 7. Overall prognosis remains extremely guarded to poor CCT 31 minutes. Subjective Date of service: 10/12/18 Principal diagnosis: SIRS Interval history: Still anuric but appears that regan was not placed properly. Urology at bedside to evaluate and they were not able to pass a regan so suprapubic catheter placed. 200cc of urine returned. RPR is back as reactive and patient has multiple basal ganglia strokes. Crypto antigen is negative. Objective Vital Signs - 12hr 10/12/18 10/12/18 10/12/18 00:30 00:45 01:00 Temperature Pulse Rate 132 H 118 H 120 H Respiratory 34 H 26 H 30 H Rate Blood Pressure 148/91 118/75 131/82 O2 Sat by Pulse 100 Oximetry 10/12/18 10/12/18 10/12/18 01:15 01:30 01:45 Temperature Pulse Rate 132 H 120 H 126 H Respiratory 34 H 22 24 Rate Blood Pressure 119/83 121/83 145/89 O2 Sat by Pulse Oximetry 10/12/18 10/12/18 10/12/18 02:01 02:15 02:30 Temperature Pulse Rate 134 H 120 H 125 H Respiratory 39 H 25 H 29 H Rate Blood Pressure 134/82 127/74 133/82 O2 Sat by Pulse Oximetry 10/12/18 10/12/18 10/12/18 02:45 03:00 03:15 Temperature Pulse Rate 123 H 134 H 121 H Respiratory 28 H 34 H 30 H Rate Blood Pressure 129/72 129/72 127/74 O2 Sat by Pulse Oximetry 10/12/18 10/12/18 10/12/18 03:17 03:30 03:45 Temperature 99.4 F Pulse Rate 125 H 142 H Respiratory 28 H 45 H Rate Blood Pressure 116/80 134/88 O2 Sat by Pulse Oximetry 10/12/18 10/12/18 10/12/18 04:00 04:15 04:31 Temperature Pulse Rate 122 H 124 H 143 H Respiratory 26 H 21 48 H Rate Blood Pressure 128/74 134/75 158/109 O2 Sat by Pulse Oximetry 10/12/18 10/12/18 10/12/18 04:41 04:45 05:00 Temperature Pulse Rate 126 H 121 H 124 H Respiratory 22 30 H Rate Blood Pressure 128/74 119/76 134/82 O2 Sat by Pulse 100 Oximetry 10/12/18 10/12/18 10/12/18 05:15 05:30 05:45 Temperature Pulse Rate 141 H 123 H 139 H Respiratory 46 H 26 H 44 H Rate Blood Pressure 141/83 120/72 122/80 O2 Sat by Pulse Oximetry 10/12/18 10/12/18 10/12/18 06:00 06:15 06:30 Temperature Pulse Rate 141 H 134 H 122 H Respiratory 49 H 43 H 34 H Rate Blood Pressure 147/93 134/72 119/69 O2 Sat by Pulse Oximetry 10/12/18 10/12/18 10/12/18 06:45 07:00 07:15 Temperature Pulse Rate 118 H 122 H 121 H Respiratory 32 H 34 H 32 H Rate Blood Pressure 119/69 126/75 123/69 O2 Sat by Pulse Oximetry 10/12/18 10/12/18 10/12/18 07:30 07:45 08:00 Temperature 101.8 F H Pulse Rate 132 H 132 H 121 H Respiratory 41 H 42 H 34 H Rate Blood Pressure 122/74 115/68 115/68 O2 Sat by Pulse 100 Oximetry 10/12/18 10/12/18 10/12/18 08:15 08:27 08:29 Temperature 101.8 F H Pulse Rate 138 H Respiratory 42 H 32 H Rate Blood Pressure 115/68 O2 Sat by Pulse 100 Oximetry 10/12/18 10/12/18 10/12/18 08:30 08:45 09:01 Temperature Pulse Rate 116 H 132 H 127 H Respiratory 29 H 41 H 32 H Rate Blood Pressure 110/73 132/87 137/73 O2 Sat by Pulse 100 100 96 Oximetry 10/12/18 10/12/18 10/12/18 09:15 09:19 09:21 Temperature 97.2 F L Pulse Rate 128 H 136 H Respiratory 38 H 40 H Rate Blood Pressure 137/93 137/93 O2 Sat by Pulse 100 100 Oximetry 10/12/18 10/12/18 10/12/18 09:30 09:41 09:51 Temperature Pulse Rate 113 H 124 H 113 H Respiratory 24 33 H 18 Rate Blood Pressure 123/82 137/93 129/81 O2 Sat by Pulse 100 100 Oximetry 10/12/18 10/12/18 10/12/18 10:01 10:11 10:21 Temperature Pulse Rate 127 H 113 H 116 H Respiratory 34 H 24 26 H Rate Blood Pressure 148/82 129/81 138/90 O2 Sat by Pulse 100 100 Oximetry 10/12/18 10/12/18 10/12/18 10:30 10:41 10:50 Temperature Pulse Rate 121 H 111 H 126 H Respiratory 25 H 20 37 H Rate Blood Pressure 136/100 138/90 141/93 O2 Sat by Pulse 100 100 Oximetry 10/12/18 10/12/18 11:00 11:11 Temperature Pulse Rate 119 H 132 H Respiratory 22 33 H Rate Blood Pressure 141/93 141/93 O2 Sat by Pulse 100 Oximetry Constitutional: no acute distress, alert, other (but does not follow commands, he will track) Eyes: non-icteric ENT: other (orally intubated, not on sedation) Neck: supple Effort: mildly labored Ascultation: Bilateral: clear, diminished breath sounds Percussion: Bilateral: not dull Cardiovascular: regular rate and rhythm (sinus tach) Gastrointestinal: normoactive bowel sounds, soft Extremities: no cyanosis, no edema Neurologic: unable to assess CBC and BMP: 10/12/18 06:43 10/12/18 04:57 ABG, PT/INR, D-dimer: ABG POC ABG pH 7.493 (7.35-7.45) H 10/12/18 04:29 POC ABG pCO2 23.1 (35-45) L 10/12/18 04:29 POC ABG pO2 176 (80-105) H 10/12/18 04:29 POC ABG HCO3 17.7 10/12/18 04:29 POC ABG Total CO2 18 10/12/18 04:29 POC ABG O2 Sat 100 10/12/18 04:29 PT/INR, D-dimer PT 18.0 Sec. (12.2-14.9) H 10/12/18 04:57 INR 1.39 (0.87-1.13) H 10/12/18 04:57 Abnormal lab findings: Abnormal Labs 10/10/18 10/10/18 10/10/18 15:02 15:02 15:02 WBC RBC 2.38 L Hgb 8.1 L Hct 24.9 L MCV 105 H MCH 34 H RDW 21.4 H Plt Count 20 L Seg Neuts % (Manual) 84.0 H Lymphocytes % (Manual) 8.0 L Nucleated RBC % Seg Neutrophils # Man 7.8 H Lymphocytes # (Manual) 0.7 L PT 16.2 H INR 1.22 H POC ABG pH POC ABG pCO2 POC ABG pO2 Sodium 136 L Potassium Chloride 88.2 L Carbon Dioxide 8 L* BUN 70 H Creatinine 5.6 H Glucose 331 H POC Glucose Lactic Acid Uric Acid Calcium Phosphorus Magnesium TIBC Ferritin Total Bilirubin Direct Bilirubin AST ALT Alkaline Phosphatase Lactate Dehydrogenase Troponin T 0.298 H* NT-Pro-B Natriuret Pep Total Protein Albumin Triglycerides 329 H Cholesterol 234 H LDL Cholesterol Direct 139 H Crossmatch 10/10/18 10/10/18 10/10/18 15:05 15:29 15:42 WBC RBC Hgb Hct MCV MCH RDW Plt Count Seg Neuts % (Manual) Lymphocytes % (Manual) Nucleated RBC % Seg Neutrophils # Man Lymphocytes # (Manual) PT INR POC ABG pH POC ABG pCO2 POC ABG pO2 Sodium Potassium Chloride Carbon Dioxide BUN Creatinine Glucose POC Glucose 274 H Lactic Acid 17.90 H* Uric Acid Calcium Phosphorus Magnesium TIBC Ferritin Total Bilirubin Direct Bilirubin AST ALT Alkaline Phosphatase Lactate Dehydrogenase Troponin T NT-Pro-B Natriuret Pep Total Protein Albumin Triglycerides Cholesterol LDL Cholesterol Direct Crossmatch See Detail 10/10/18 10/10/18 10/10/18 15:42 16:22 16:54 WBC RBC Hgb Hct MCV MCH RDW Plt Count Seg Neuts % (Manual) Lymphocytes % (Manual) Nucleated RBC % Seg Neutrophils # Man Lymphocytes # (Manual) PT INR POC ABG pH POC ABG pCO2 9.0 L POC ABG pO2 140 H Sodium Potassium Chloride Carbon Dioxide BUN Creatinine Glucose POC Glucose Lactic Acid Uric Acid Calcium Phosphorus Magnesium TIBC Ferritin Total Bilirubin 1.50 H Direct Bilirubin 0.4 H AST 105 H ALT Alkaline Phosphatase Lactate Dehydrogenase 2342 H Troponin T NT-Pro-B Natriuret Pep 71401 H Total Protein 9.2 H Albumin Triglycerides Cholesterol LDL Cholesterol Direct Crossmatch 10/10/18 10/10/18 10/10/18 17:08 18:07 18:24 WBC RBC Hgb Hct MCV MCH RDW Plt Count Seg Neuts % (Manual) Lymphocytes % (Manual) Nucleated RBC % Seg Neutrophils # Man Lymphocytes # (Manual) PT INR POC ABG pH 7.172 L POC ABG pCO2 POC ABG pO2 533 H Sodium Potassium Chloride Carbon Dioxide BUN Creatinine Glucose POC Glucose Lactic Acid 14.80 H* Uric Acid Calcium Phosphorus Magnesium TIBC Ferritin Total Bilirubin Direct Bilirubin AST ALT Alkaline Phosphatase Lactate Dehydrogenase Troponin T 0.272 H* NT-Pro-B Natriuret Pep Total Protein Albumin Triglycerides Cholesterol LDL Cholesterol Direct Crossmatch 10/10/18 10/10/18 10/10/18 19:58 20:54 20:54 WBC RBC Hgb Hct MCV MCH RDW Plt Count Seg Neuts % (Manual) Lymphocytes % (Manual) Nucleated RBC % Seg Neutrophils # Man Lymphocytes # (Manual) PT INR POC ABG pH POC ABG pCO2 POC ABG pO2 Sodium Potassium Chloride Carbon Dioxide BUN Creatinine Glucose POC Glucose Lactic Acid 11.50 H* 2.90 H* 2.90 H* Uric Acid Calcium Phosphorus Magnesium TIBC Ferritin Total Bilirubin Direct Bilirubin AST ALT Alkaline Phosphatase Lactate Dehydrogenase Troponin T NT-Pro-B Natriuret Pep Total Protein Albumin Triglycerides Cholesterol LDL Cholesterol Direct Crossmatch 10/10/18 10/10/18 10/11/18 22:43 23:55 02:44 WBC RBC Hgb Hct MCV MCH RDW Plt Count Seg Neuts % (Manual) Lymphocytes % (Manual) Nucleated RBC % Seg Neutrophils # Man Lymphocytes # (Manual) PT INR POC ABG pH POC ABG pCO2 25.9 L POC ABG pO2 192 H Sodium Potassium Chloride Carbon Dioxide BUN Creatinine Glucose POC Glucose Lactic Acid 4.60 H* 5.40 H* Uric Acid Calcium Phosphorus Magnesium TIBC Ferritin Total Bilirubin Direct Bilirubin AST ALT Alkaline Phosphatase Lactate Dehydrogenase Troponin T NT-Pro-B Natriuret Pep Total Protein Albumin Triglycerides Cholesterol LDL Cholesterol Direct Crossmatch 10/11/18 10/11/18 10/11/18 02:55 02:55 03:34 WBC RBC 2.35 L Hgb 7.7 L Hct 22.9 L MCV 98 H MCH 33 H RDW 19.9 H Plt Count 23 L Seg Neuts % (Manual) 75.0 H Lymphocytes % (Manual) 11.0 L Nucleated RBC % Seg Neutrophils # Man Lymphocytes # (Manual) 1.0 L PT INR POC ABG pH POC ABG pCO2 POC ABG pO2 Sodium Potassium 5.3 H D Chloride Carbon Dioxide 14 L BUN 74 H Creatinine 5.4 H Glucose 126 H POC Glucose Lactic Acid 5.30 H* Uric Acid Calcium 7.8 L D Phosphorus Magnesium TIBC Ferritin Total Bilirubin 1.90 H Direct Bilirubin AST 306 H ALT 89 H Alkaline Phosphatase 246 H Lactate Dehydrogenase Troponin T NT-Pro-B Natriuret Pep Total Protein Albumin 3.4 L Triglycerides Cholesterol LDL Cholesterol Direct Crossmatch 10/11/18 10/11/18 10/11/18 03:34 05:47 05:48 WBC RBC Hgb Hct MCV MCH RDW Plt Count Seg Neuts % (Manual) Lymphocytes % (Manual) Nucleated RBC % Seg Neutrophils # Man Lymphocytes # (Manual) PT INR POC ABG pH 7.491 H POC ABG pCO2 24.9 L POC ABG pO2 166 H Sodium Potassium 5.2 H Chloride Carbon Dioxide 16 L BUN 80 H Creatinine 5.5 H Glucose 63 L POC Glucose Lactic Acid 3.80 H* Uric Acid Calcium 7.9 L Phosphorus Magnesium TIBC Ferritin Total Bilirubin Direct Bilirubin AST ALT Alkaline Phosphatase Lactate Dehydrogenase Troponin T NT-Pro-B Natriuret Pep Total Protein Albumin Triglycerides Cholesterol LDL Cholesterol Direct Crossmatch 10/11/18 10/11/18 10/11/18 09:56 17:34 17:34 WBC RBC Hgb Hct MCV MCH RDW Plt Count Seg Neuts % (Manual) Lymphocytes % (Manual) Nucleated RBC % Seg Neutrophils # Man Lymphocytes # (Manual) PT INR POC ABG pH POC ABG pCO2 POC ABG pO2 Sodium Potassium 3.4 L D Chloride Carbon Dioxide 17 L BUN 97 H Creatinine 7.3 H Glucose 135 H POC Glucose Lactic Acid 2.60 H* 2.30 H* Uric Acid Calcium 7.9 L Phosphorus 5.80 H Magnesium 2.70 H TIBC Ferritin Total Bilirubin Direct Bilirubin AST ALT Alkaline Phosphatase Lactate Dehydrogenase Troponin T NT-Pro-B Natriuret Pep Total Protein Albumin Triglycerides Cholesterol LDL Cholesterol Direct Crossmatch 10/11/18 10/11/18 10/11/18 17:35 17:36 19:21 WBC RBC Hgb Hct MCV MCH RDW Plt Count Seg Neuts % (Manual) Lymphocytes % (Manual) Nucleated RBC % Seg Neutrophils # Man Lymphocytes # (Manual) PT INR POC ABG pH POC ABG pCO2 POC ABG pO2 Sodium Potassium Chloride Carbon Dioxide BUN Creatinine Glucose POC Glucose Lactic Acid 2.60 H* Uric Acid 13.4 H Calcium Phosphorus Magnesium TIBC 236 L Ferritin 49526.0 H Total Bilirubin Direct Bilirubin AST ALT Alkaline Phosphatase Lactate Dehydrogenase Troponin T NT-Pro-B Natriuret Pep Total Protein Albumin Triglycerides Cholesterol LDL Cholesterol Direct Crossmatch 10/11/18 10/11/18 10/11/18 20:08 21:32 23:01 WBC RBC Hgb Hct MCV MCH RDW Plt Count Seg Neuts % (Manual) Lymphocytes % (Manual) Nucleated RBC % Seg Neutrophils # Man Lymphocytes # (Manual) PT INR POC ABG pH POC ABG pCO2 POC ABG pO2 Sodium Potassium Chloride Carbon Dioxide 16 L BUN 99 H Creatinine 8.1 H Glucose 147 H POC Glucose Lactic Acid 2.60 H* 3.20 H* Uric Acid Calcium 7.7 L Phosphorus Magnesium 2.60 H TIBC Ferritin Total Bilirubin Direct Bilirubin AST ALT Alkaline Phosphatase Lactate Dehydrogenase Troponin T NT-Pro-B Natriuret Pep Total Protein Albumin Triglycerides Cholesterol LDL Cholesterol Direct Crossmatch 10/12/18 10/12/18 10/12/18 04:29 04:57 04:57 WBC 15.0 H RBC 1.75 L Hgb 5.6 L* Hct 16.7 L* D MCV 95 H MCH RDW 20.7 H Plt Count 49 L D Seg Neuts % (Manual) 90.0 H Lymphocytes % (Manual) 4.0 L Nucleated RBC % 12.0 H Seg Neutrophils # Man 12.3 H Lymphocytes # (Manual) 0.5 L PT INR POC ABG pH 7.493 H POC ABG pCO2 23.1 L POC ABG pO2 176 H Sodium Potassium 3.0 L D Chloride Carbon Dioxide 15 L BUN 102 H Creatinine 8.8 H Glucose 110 H POC Glucose Lactic Acid Uric Acid Calcium 7.6 L Phosphorus 5.10 H Magnesium 2.50 H TIBC Ferritin Total Bilirubin Direct Bilirubin AST 667 H ALT 298 H Alkaline Phosphatase 154 H Lactate Dehydrogenase Troponin T NT-Pro-B Natriuret Pep Total Protein Albumin 2.8 L Triglycerides Cholesterol LDL Cholesterol Direct Crossmatch 10/12/18 10/12/18 04:57 06:43 WBC RBC Hgb 5.8 L* Hct 17.2 L* MCV MCH RDW Plt Count Seg Neuts % (Manual) Lymphocytes % (Manual) Nucleated RBC % Seg Neutrophils # Man Lymphocytes # (Manual) PT 18.0 H INR 1.39 H POC ABG pH POC ABG pCO2 POC ABG pO2 Sodium Potassium Chloride Carbon Dioxide BUN Creatinine Glucose POC Glucose Lactic Acid Uric Acid Calcium Phosphorus Magnesium TIBC Ferritin Total Bilirubin Direct Bilirubin AST ALT Alkaline Phosphatase Lactate Dehydrogenase Troponin T NT-Pro-B Natriuret Pep Total Protein Albumin Triglycerides Cholesterol LDL Cholesterol Direct Crossmatch
--- NOTE | 2018-10-12 13:46 | Progress Note ---
Subjective Principal diagnosis: SIRS Interval history: Patient was seen today for follow-up of multiple renal related issues critically ill, status post suprapubic catheter Dialysis catheter has been placed Commands intubated and critically ill Interdisciplinary notes that also reviewed Events of 24 hours vitals labs intake output medications were reviewed Past medical history: Reviewed Family history: Reviewed Social history: Reviewed Allergies: Reviewed Physical examination: Vitals: Reviewed HEENT: No pallor or icterus oral mucosa moist orally intubated Neck: Supple no JVD no thyromegaly Chest: Bilateral clear to auscultation anteriorly Heart: Regular rate and rhythm S1-S2 heard no S3-S4 Abdomen: Soft nontender no voluntary guarding rigidity rebound suprapubic catheter Extremity: Dry skin less than 1+ peripheral edema right femoral catheter Psychiatric: No evidence of agitation and aggression noted Dermatology: No petechial rashes Labs and x-rays: Reviewed from today Assessment and plan Acute renal failure: Patient has been essentially noted to have worsening of renal failure has evidence of metabolic acidosis, which has remained refractory to medical treatment, BUN is 102 with creatinine of 8.8. Lactic acidosis, currently improving, dialysis today and tomorrow possibly Status post suprapubic catheter, Patient is a need for renal replacement therapy that should be started immediately. Today Respiratory failure, currently intubated Anemia, thrombocytopenia: Patient will benefit from hematology oncology evaluation. This has been discussed with Dr. Muñoz yesterday Multiple brainstem stroke, etiology unclear: Have ordered for vasculitic workup HIV disease, noncompliant. Patient not taking medication: Prognosis very poor given his clinical situation, his mortality risk is very high in my opinion His family members have not called me. So far, gastric nurse to obtain case management social worker consultation Hypertension, to monitor and follow Continue with supportive care High mortality risk in a patient who is critically ill We'll continue to follow and make recommendation for renal standpoint Objective - Vital Signs Vital signs: Vital Signs - 12hr 10/12/18 10/12/18 10/12/18 02:01 02:15 02:30 Temperature Pulse Rate 134 H 120 H 125 H Respiratory 39 H 25 H 29 H Rate Blood Pressure 134/82 127/74 133/82 O2 Sat by Pulse Oximetry 10/12/18 10/12/18 10/12/18 02:45 03:00 03:15 Temperature Pulse Rate 123 H 134 H 121 H Respiratory 28 H 34 H 30 H Rate Blood Pressure 129/72 129/72 127/74 O2 Sat by Pulse Oximetry 10/12/18 10/12/18 10/12/18 03:17 03:30 03:45 Temperature 99.4 F Pulse Rate 125 H 142 H Respiratory 28 H 45 H Rate Blood Pressure 116/80 134/88 O2 Sat by Pulse Oximetry 10/12/18 10/12/18 10/12/18 04:00 04:15 04:31 Temperature Pulse Rate 122 H 124 H 143 H Respiratory 26 H 21 48 H Rate Blood Pressure 128/74 134/75 158/109 O2 Sat by Pulse Oximetry 10/12/18 10/12/18 10/12/18 04:41 04:45 05:00 Temperature Pulse Rate 126 H 121 H 124 H Respiratory 22 30 H Rate Blood Pressure 128/74 119/76 134/82 O2 Sat by Pulse 100 Oximetry 10/12/18 10/12/18 10/12/18 05:15 05:30 05:45 Temperature Pulse Rate 141 H 123 H 139 H Respiratory 46 H 26 H 44 H Rate Blood Pressure 141/83 120/72 122/80 O2 Sat by Pulse Oximetry 10/12/18 10/12/18 10/12/18 06:00 06:15 06:30 Temperature Pulse Rate 141 H 134 H 122 H Respiratory 49 H 43 H 34 H Rate Blood Pressure 147/93 134/72 119/69 O2 Sat by Pulse Oximetry 10/12/18 10/12/18 10/12/18 06:45 07:00 07:15 Temperature Pulse Rate 118 H 122 H 121 H Respiratory 32 H 34 H 32 H Rate Blood Pressure 119/69 126/75 123/69 O2 Sat by Pulse Oximetry 10/12/18 10/12/18 10/12/18 07:30 07:45 08:00 Temperature 101.8 F H Pulse Rate 132 H 132 H 121 H Respiratory 41 H 42 H 34 H Rate Blood Pressure 122/74 115/68 115/68 O2 Sat by Pulse 100 Oximetry 10/12/18 10/12/18 10/12/18 08:15 08:27 08:29 Temperature 101.8 F H Pulse Rate 138 H Respiratory 42 H 32 H Rate Blood Pressure 115/68 O2 Sat by Pulse 100 Oximetry 10/12/18 10/12/18 10/12/18 08:30 08:45 09:01 Temperature Pulse Rate 116 H 132 H 127 H Respiratory 29 H 41 H 32 H Rate Blood Pressure 110/73 132/87 137/73 O2 Sat by Pulse 100 100 96 Oximetry 10/12/18 10/12/18 10/12/18 09:15 09:19 09:21 Temperature 97.2 F L Pulse Rate 128 H 136 H Respiratory 38 H 40 H Rate Blood Pressure 137/93 137/93 O2 Sat by Pulse 100 100 Oximetry 10/12/18 10/12/18 10/12/18 09:30 09:41 09:51 Temperature Pulse Rate 113 H 124 H 113 H Respiratory 24 33 H 18 Rate Blood Pressure 123/82 137/93 129/81 O2 Sat by Pulse 100 100 Oximetry 10/12/18 10/12/18 10/12/18 10:01 10:11 10:21 Temperature Pulse Rate 127 H 113 H 116 H Respiratory 34 H 24 26 H Rate Blood Pressure 148/82 129/81 138/90 O2 Sat by Pulse 100 100 Oximetry 10/12/18 10/12/18 10/12/18 10:30 10:41 10:50 Temperature Pulse Rate 121 H 111 H 126 H Respiratory 25 H 20 37 H Rate Blood Pressure 136/100 138/90 141/93 O2 Sat by Pulse 100 100 Oximetry 10/12/18 10/12/18 10/12/18 11:00 11:11 12:50 Temperature Pulse Rate 119 H 132 H 97 H Respiratory 22 33 H Rate Blood Pressure 141/93 141/93 138/78 O2 Sat by Pulse 100 100 Oximetry - Lab 10/12/18 14:05 10/12/18 04:57 Most recent lab results Calcium 7.6 mg/dL (8.4-10.2) L 10/12/18 04:57 Phosphorus 5.10 mg/dL (2.5-4.5) H 10/12/18 04:57 Magnesium 2.50 mg/dL (1.7-2.3) H 10/12/18 04:57 Medications & Allergies - Medications Allergies/Adverse Reactions: Allergies Sulfa (Sulfonamide Antibiotics) Allergy (Verified 10/10/18 16:54) Unknown Home Medications: Home Medications Medication Instructions Recorded Confirmed Last Taken Type Acetaminophen [Tylenol] 1,000 mg PO Q6HR 10/10/18 10/10/18 Unknown History Amlodipine Besylate [Norvasc] 10 mg PO QDAY 10/10/18 10/10/18 Unknown History Aspirin [Adult Aspirin] 81 mg PO DAILY 10/10/18 10/10/18 Unknown History Atorvastatin [Lipitor Tab] 80 mg PO DAILY 10/10/18 10/10/18 Unknown History Losartan [Cozaar] 100 mg PO QDAY 10/10/18 10/10/18 Unknown History Multivitamin [Multiple Vitamins] 1 each PO DAILY 10/10/18 10/10/18 Unknown History hydroCHLOROthiazide [HCTZ] 25 mg PO QDAY 10/10/18 10/10/18 Unknown History Active Medications: Generic Name Dose Route Start Last Admin Trade Name Freq PRN Reason Stop Dose Admin Albuterol 2.5 mg 10/10/18 18:12 Proventil IH Q3HRT PRN Shortness Of Breath Amlodipine Besylate 10 mg 10/11/18 10:00 10/11/18 10:49 Norvasc PO 10 mg QDAY RUBI Administration Lipase/Protease/Amylase 1 each 10/11/18 12:58 Pancreaze 10,500 Unit FEEDTUBE PRN PRN For Clogged Feeding Tube Atovaquone 750 mg 10/11/18 15:00 10/11/18 22:36 Mepron PO 750 mg BID RUBI Administration Hydrophilic Ointment 1 applic 10/10/18 17:53 Vaseline Lip Therapy TP Q2HR PRN Dry Lips Propofol 1,000 mg in 100 mls @ 2.204 mls/hr 10/10/18 18:00 10/12/18 10:50 Diprivan 10 Mg/Ml IV 30 mcg/kg/min TITR RUBI 13.227 mls/hr Administration Protocol 5 MCG/KG/MIN Nicardipine HCl 50 mg/ Sodium 250 mls @ 25 mls/hr 10/11/18 13:00 Chloride IV TITR RUBI Protocol 5 MG/HR Metronidazole 500 mg in 100 mls @ 100 mls/hr 10/11/18 15:00 10/12/18 06:02 Flagyl 500 Mg/100 Ml IV 100 mls/hr Q8HR RUBI Administration Protocol Fluconazole 200 mls @ 100 mls/hr 10/11/18 15:00 10/11/18 20:09 Diflucan IV 100 mls/hr Q24HR RUBI Administration Protocol Sodium Chloride 1,000 mls @ 150 mls/hr 10/11/18 20:00 10/12/18 06:05 Nacl 0.45% 1000 Ml IV 150 mls/hr DIRECT RUBI Administration Sodium Chloride 172 meq/ 543 mls @ 25 mls/hr 10/12/18 12:30 Dextrose IV ONCE RUBI Acyclovir 350 mg/ Sodium 107 mls @ 100 mls/hr 10/12/18 14:00 Chloride IV Q24HR RUBI Penicillin G Potassium 12 mil. 250 mls @ 20.833 mls/hr 10/12/18 14:00 units/ Sodium Chloride IV Q12H RUBI Multi-Ingred Cream/Lotion/Oil/Oint 1 applic 10/10/18 17:53 Artificial Tears Ophth Oint OU Q4HR PRN Dry Eye(s) Multivitamins 1 each 10/11/18 10:00 10/11/18 10:49 Theragran Tab PO 1 each DAILY RUBI Administration Pantoprazole Sodium 40 mg 10/12/18 11:00 Protonix IV BID RUBI Simple Syrup 15 ml 10/11/18 12:58 Simple Syrup FEEDTUBE PRN PRN Hypoglycemia Simple Syrup 30 ml 10/11/18 12:58 Simple Syrup FEEDTUBE PRN PRN Hypoglycemia Sodium Bicarbonate 325 mg 10/11/18 12:58 Sodium Bicarbonate FEEDTUBE PRN PRN For Clogged Feeding Tube Sodium Chloride 10 ml 10/10/18 22:00 10/12/18 01:30 Sodium Chloride Flush Syringe 10 Ml IV 10 ml BID RUBI Administration Sodium Chloride 10 ml 10/10/18 18:12 Sodium Chloride Flush Syringe 10 Ml IV PRN PRN LINE FLUSH
[2018-10-12] MEDS ORDERED: NACL 0.9% 100 ML IV PRN ×2 (13:47→17:26)
--- NOTE | 2018-10-12 14:07 | Consultation ---
REFERRED BY: Jhoan Gee MD REASON FOR CONSULTATION: Thrombocytopenia and anemia. HISTORY OF PRESENT ILLNESS: I saw the patient, a 43-year-old male, in the ICU. The patient has a history of HIV, hypertension, CVA, nicotine dependence, came to the hospital because of confusion. He was admitted on the . He is intubated and placed in ICU setting. He is being treated for respiratory failure, encephalopathy, acidosis. He was found to have renal impairment. The patient's hemoglobin was low, platelets were low. I have been asked to evaluate the patient. PAST MEDICAL HISTORY: HIV, hypertension, stroke. PAST SURGICAL HISTORY: None available. SOCIAL HISTORY: Single, smoking present. FAMILY HISTORY: Hypertension. ALLERGIES: SULFA. MEDICATIONS: Include amlodipine, atorvastatin, atovaquone, ceftriaxone, Diflucan and Flagyl. PHYSICAL EXAMINATION: VITAL SIGNS: Temperature 101, pulse 138, respirations 32, BP 115/68. HEENT: Pallor present. Orally intubated. No icterus. NECK: No neck lymph nodes. HEART: S1, S2. LUNGS: Decreased air entry. ABDOMEN: Soft. NEUROLOGIC: Not able to evaluate. LABORATORY DATA: White cell 13, hemoglobin 5.8, MCV 95, platelet 49. PT 18, INR 1.39, potassium 3, creatinine is 8.8, calcium 7.6, serum iron 147, and ferritin 50,000. RADIOLOGY: Brain MRI was done, which shows lesions, areas of edema, infarct. ASSESSMENT: 1. Anemia. At admission, hemoglobin was 8.1, now it is 5.8. Transfusion support. 2. Platelets at admission was 20 and now it is improving. He has not had any transfusion still this time. 3. White cell count is elevated. 4. PT/INR slightly elevated. 5. Renal failure. 6. ALT elevated. 7. The patient has multiple medical issues. PLAN: I will ask for a smear evaluation. I will call the lab for same. Supportive care in the interim while we looked for primary etiology. JOB# [id number] NM/NTS
--- NOTE | 2018-10-12 14:19 | Operative Report ---
Operative Report Operative Report: Operative note: Date: 10/12/2018 Preoperative diagnosis: Renal failure Postoperative diagnosis: Same. Operation: Right femoral Vas-Cath insertion Surgeon: Mahsa Escudero. Asst.: None Anesthesia: Local EBL: Minimal Findings: None Indications: Critically ill patient including a JVD/AIDS and acute multiple brain infarcts also has renal failure. In plan for hemodialysis Vas-Cath insertion was required. Risks, benefits and alternatives of procedure including general poor prognosis were discussed with patient's mother. She understood, agreed. Operative details: Patient was prepped and draped right groin in a sterile fashion. After timeout performed right femoral vein was accessed under ultrasound guidance with micropuncture needle and exchanged for micropuncture sheath. Wire was advanced without resistance. Skin incision was made with 11 blade and serially dilated skin past with subsequent insertion of Vas-Cath catheter 30 cm in length. Ports were checked for good flow and flushed with saline. Catheter was secured in place with 3-0 nylon stitches and sterile dressing applied. He tolerated the procedure well.
[2018-10-12] MEDS: ZOVIRAX IV SCH (14:33)
[2018-10-12] MEDS: NACL 0.9% IV SCH (14:33)
[2018-10-12] MEDS: DIFLUCAN 200 ML IV SCH (14:43)
[2018-10-12 14:44] LABS: Hematocrit 25.1 % (35.5-45.6); Hemoglobin 8.7 gm/dl (11.8-15.2); Mean Corpuscular HGB Conc 35 % (32-34); Mean Corpuscular Volume 91 fl (84-94); Red Blood Count 2.76 M/mm3 (3.65-5.03)
[2018-10-12] MEDS: PFIZERPEN 12 MIL.UNITS in NACL 0.9% 250ML 250 ML IV SCH (14:44)
[2018-10-12] MEDS: MEPRON PO SCH (14:45)
[2018-10-12] MEDS: NORVASC PO SCH (14:53)
[2018-10-12] MEDS: PROTONIX IV SCH ×2 (14:53→23:25)
[2018-10-12] MEDS: THERAGRAN Tab PO SCH (14:53)
[2018-10-12 16:30] LABS: Band Neutrophils # (Manual) 3.8 K/mm3; Basophils % (Manual) 0 % (0.0-1.8); Eosinophils % (Manual) 0 % (0.0-4.3); Total Cells Counted 100
[2018-10-12 16:32] LABS: Anisocytosis 2+; Poikilocytosis 2+
[2018-10-12 16:33] LABS: Burr Cells 2+; Hypochromasia 2+; Schistocytes 2+
[2018-10-12 16:34] LABS: Ovalocytes Few; Platelet Estimate Appears Decreased
[2018-10-12 16:36] LABS: Platelet Count 53 K/mm3 (140-440)
[2018-10-12] MEDS: APRESOLINE IV PRN (16:53)
--- NOTE | 2018-10-12 17:27 | Consultation ---
History of Present Illness Consult date: 10/12/18 Chief complaint: bilateral strokes History of present illness: This is a 43 YO M HIV +, CD4 not noted who presented to the ED with confusion a nd lethargy. Pt found to have severe sepsis, respiratory failure and he was intubated and sedated. MRI Brain revealed bilateral areas on diffusion weighted imaging consistent with acute stroke. On my arrival he is sedated but will move around with noxious stimulation. No family at bedside. Past History Past Medical History: HIV/AIDS, hypertension, stroke Past Surgical History: No surgical history, Other (reviewed) Social history: single, smoking. denies: alcohol abuse, prescription drug abuse Family history: hypertension Medications and Allergies Allergies Allergy/AdvReac Type Severity Reaction Status Date / Time Sulfa (Sulfonamide Allergy Unknown Verified 10/10/18 16:54 Antibiotics) Home Medications Medication Instructions Recorded Confirmed Last Taken Type Acetaminophen [Tylenol] 1,000 mg PO Q6HR 10/10/18 10/10/18 Unknown History Amlodipine Besylate [Norvasc] 10 mg PO QDAY 10/10/18 10/10/18 Unknown History Aspirin [Adult Aspirin] 81 mg PO DAILY 10/10/18 10/10/18 Unknown History Atorvastatin [Lipitor Tab] 80 mg PO DAILY 10/10/18 10/10/18 Unknown History Losartan [Cozaar] 100 mg PO QDAY 10/10/18 10/10/18 Unknown History Multivitamin [Multiple Vitamins] 1 each PO DAILY 10/10/18 10/10/18 Unknown History hydroCHLOROthiazide [HCTZ] 25 mg PO QDAY 10/10/18 10/10/18 Unknown History Active Meds: Active Medications Albuterol (Proventil) 2.5 mg IH Q3HRT PRN PRN Reason: Shortness Of Breath Amlodipine Besylate (Norvasc) 10 mg PO QDAY [facility] Last Admin: 10/12/18 14:53 Dose: 10 mg Documented by: Lipase/Protease/Amylase (Carrie Reed 10,500 Unit) 1 each FEEDTUBE PRN PRN PRN Reason: For Clogged Feeding Tube Atovaquone (Mepron) 750 mg PO BID [facility] Last Admin: 10/12/18 14:45 Dose: 750 mg Documented by: Hydralazine HCl (Apresoline) 10 mg IV Q4HR PRN PRN Reason: SBP>175 or DBP>115 Last Admin: 10/12/18 16:53 Dose: 10 mg Documented by: Hydrophilic Ointment (Vaseline Lip Therapy) 1 applic TP Q2HR PRN PRN Reason: Dry Lips Propofol (Diprivan 10 Mg/Ml) 1,000 mg in 100 mls @ 2.204 mls/hr IV TITR RUBI; Protocol Last Admin: 10/12/18 14:34 Dose: 50 mcg/kg/min, 22.045 mls/hr Documented by: Nicardipine HCl 50 mg/ Sodium (Chloride) 250 mls @ 25 mls/hr IV TITR RUBI; Protocol Metronidazole (Flagyl 500 Mg/100 Ml) 500 mg in 100 mls @ 100 mls/hr IV Q8HR RUBI; Protocol Last Admin: 10/12/18 14:42 Dose: 100 mls/hr Documented by: Fluconazole (Diflucan) 200 mls @ 100 mls/hr IV Q24HR RUBI; Protocol Last Admin: 10/12/18 14:43 Dose: 100 mls/hr Documented by: Sodium Chloride (Nacl 0.45% 1000 Ml) 1,000 mls @ 150 mls/hr IV DIRECT [facility]BI Last Admin: 10/12/18 06:05 Dose: 150 mls/hr Documented by: Sodium Chloride 172 meq/ (Dextrose) 543 mls @ 25 mls/hr IV ONCE [facility] Last Admin: 10/12/18 14:22 Dose: 25 mls/hr Documented by: Acyclovir 350 mg/ Sodium (Chloride) 107 mls @ 100 mls/hr IV Q24HR [facility] Last Admin: 10/12/18 14:33 Dose: 100 mls/hr Documented by: Penicillin G Potassium 12 mil. (units/ Sodium Chloride) 250 mls @ 20.833 mls/hr IV Q12H [facility] Last Admin: 10/12/18 14:44 Dose: 20.833 mls/hr Documented by: Sodium Chloride (Nacl 0.9%) 100 mls @ 999 mls/hr IV CHON PRN PRN Reason: Hypotension Multi-Ingred Cream/Lotion/Oil/Oint (Artificial Tears Ophth Oint) 1 applic OU Q4HR PRN PRN Reason: Dry Eye(s) Multivitamins (Theragran Tab) 1 each PO DAILY [facility] Last Admin: 10/12/18 14:53 Dose: 1 each Documented by: Pantoprazole Sodium (Protonix) 40 mg IV BID [facility] Last Admin: 10/12/18 14:53 Dose: 40 mg Documented by: Simple Syrup (Simple Syrup) 15 ml FEEDTUBE PRN PRN PRN Reason: Hypoglycemia Simple Syrup (Simple Syrup) 30 ml FEEDTUBE PRN PRN PRN Reason: Hypoglycemia Sodium Bicarbonate (Sodium Bicarbonate) 325 mg FEEDTUBE PRN PRN PRN Reason: For Clogged Feeding Tube Sodium Chloride (Sodium Chloride Flush Syringe 10 Ml) 10 ml IV BID [facility] Last Admin: 10/12/18 14:45 Dose: 10 ml Documented by: Sodium Chloride (Sodium Chloride Flush Syringe 10 Ml) 10 ml IV PRN PRN PRN Reason: LINE FLUSH Review of Systems ROS unobtainable: due to endotracheal tube Physical Examination - Vital Signs Vital Signs: Vital Signs Pulse BP Pulse Ox 138 H 236/167 100 10/10/18 15:06 10/10/18 15:06 10/10/18 15:06 - EENT EENT: Present: PERRL, mucous membranes dry - Respiratory Respiratory: Present: lungs clear - Cardiovascular Cardiovascular: Present: regular rate - Gastrointestinal Gastrointestinal: Present: normoactive bowel sounds - Neurologic Cranial nerve examination: PERRL, EOMI Detailed motor examination: other (pt intubated and sedated, does not follow commands, does seem to move more on the left) Reflexes: 0: ankle, bicep, knee, tricep - Assessment Assessment Interval: Baseline - Level of Consciousness 1a. Level of Consciousness: arousable/minor stimuli - LOC Questions 1b. LOC Questions: answers 1 question correctly - LOC Command 1c. LOC Commands: performs tasks correctly - Best Gaze 2. Best Gaze: normal - Visual 3. Visual: no visual loss - Facial Palsy 4. Facial Palsy: partial paralysis - Motor Arm 5b. Motor Arm Right: drift - Motor Leg 6a. Motor Leg Left: drift - Limb Ataxia 7. Limb Ataxia: absent - Sensory 8. Sensory: normal - Best Language 9. Best Language: mild/moderate aphasia - Dysarthria 10. Dysarthria: mild/moderate dysarthria - Extinction and Inattention 11. Extinction/Inattention: no abnormality Results - Laboratory Findings CBC and BMP: 10/12/18 14:05 10/12/18 04:57 Abnormal Lab Findings: Abnormal Labs 10/10/18 10/10/18 10/10/18 15:02 15:02 15:02 WBC RBC 2.38 L Hgb 8.1 L Hct 24.9 L MCV 105 H MCH 34 H MCHC RDW 21.4 H Plt Count 20 L Seg Neuts % (Manual) 84.0 H Lymphocytes % (Manual) 8.0 L Nucleated RBC % Seg Neutrophils # Man 7.8 H Lymphocytes # (Manual) 0.7 L PT 16.2 H INR 1.22 H POC ABG pH POC ABG pCO2 POC ABG pO2 Sodium 136 L Potassium Chloride 88.2 L Carbon Dioxide 8 L* BUN 70 H Creatinine 5.6 H Glucose 331 H POC Glucose Lactic Acid Uric Acid Calcium Phosphorus Magnesium TIBC Ferritin Total Bilirubin Direct Bilirubin AST ALT Alkaline Phosphatase Lactate Dehydrogenase Troponin T 0.298 H* NT-Pro-B Natriuret Pep Total Protein Albumin Triglycerides 329 H Cholesterol 234 H LDL Cholesterol Direct 139 H Crossmatch 10/10/18 10/10/18 10/10/18 15:05 15:29 15:42 WBC RBC Hgb Hct MCV MCH MCHC RDW Plt Count Seg Neuts % (Manual) Lymphocytes % (Manual) Nucleated RBC % Seg Neutrophils # Man Lymphocytes # (Manual) PT INR POC ABG pH POC ABG pCO2 POC ABG pO2 Sodium Potassium Chloride Carbon Dioxide BUN Creatinine Glucose POC Glucose 274 H Lactic Acid 17.90 H* Uric Acid Calcium Phosphorus Magnesium TIBC Ferritin Total Bilirubin Direct Bilirubin AST ALT Alkaline Phosphatase Lactate Dehydrogenase Troponin T NT-Pro-B Natriuret Pep Total Protein Albumin Triglycerides Cholesterol LDL Cholesterol Direct Crossmatch See Detail 10/10/18 10/10/18 10/10/18 15:42 16:22 16:54 WBC RBC Hgb Hct MCV MCH MCHC RDW Plt Count Seg Neuts % (Manual) Lymphocytes % (Manual) Nucleated RBC % Seg Neutrophils # Man Lymphocytes # (Manual) PT INR POC ABG pH POC ABG pCO2 9.0 L POC ABG pO2 140 H Sodium Potassium Chloride Carbon Dioxide BUN Creatinine Glucose POC Glucose Lactic Acid Uric Acid Calcium Phosphorus Magnesium TIBC Ferritin Total Bilirubin 1.50 H Direct Bilirubin 0.4 H AST 105 H ALT Alkaline Phosphatase Lactate Dehydrogenase 2342 H Troponin T NT-Pro-B Natriuret Pep 00712 H Total Protein 9.2 H Albumin Triglycerides Cholesterol LDL Cholesterol Direct Crossmatch 10/10/18 10/10/1819 17:08 18:07 18:24 WBC RBC Hgb Hct MCV MCH MCHC RDW Plt Count Seg Neuts % (Manual) Lymphocytes % (Manual) Nucleated RBC % Seg Neutrophils # Man Lymphocytes # (Manual) PT INR POC ABG pH 7.172 L POC ABG pCO2 POC ABG pO2 533 H Sodium Potassium Chloride Carbon Dioxide BUN Creatinine Glucose POC Glucose Lactic Acid 14.80 H* Uric Acid Calcium Phosphorus Magnesium TIBC Ferritin Total Bilirubin Direct Bilirubin AST ALT Alkaline Phosphatase Lactate Dehydrogenase Troponin T 0.272 H* NT-Pro-B Natriuret Pep Total Protein Albumin Triglycerides Cholesterol LDL Cholesterol Direct Crossmatch 10/10/18 10/10/18 10/10/18 19:58 20:54 20:54 WBC RBC Hgb Hct MCV MCH MCHC RDW Plt Count Seg Neuts % (Manual) Lymphocytes % (Manual) Nucleated RBC % Seg Neutrophils # Man Lymphocytes # (Manual) PT INR POC ABG pH POC ABG pCO2 POC ABG pO2 Sodium Potassium Chloride Carbon Dioxide BUN Creatinine Glucose POC Glucose Lactic Acid 11.50 H* 2.90 H* 2.90 H* Uric Acid Calcium Phosphorus Magnesium TIBC Ferritin Total Bilirubin Direct Bilirubin AST ALT Alkaline Phosphatase Lactate Dehydrogenase Troponin T NT-Pro-B Natriuret Pep Total Protein Albumin Triglycerides Cholesterol LDL Cholesterol Direct Crossmatch 10/10/18 10/10/18 10/11/18 22:43 23:55 02:44 WBC RBC Hgb Hct MCV MCH MCHC RDW Plt Count Seg Neuts % (Manual) Lymphocytes % (Manual) Nucleated RBC % Seg Neutrophils # Man Lymphocytes # (Manual) PT INR POC ABG pH POC ABG pCO2 25.9 L POC ABG pO2 192 H Sodium Potassium Chloride Carbon Dioxide BUN Creatinine Glucose POC Glucose Lactic Acid 4.60 H* 5.40 H* Uric Acid Calcium Phosphorus Magnesium TIBC Ferritin Total Bilirubin Direct Bilirubin AST ALT Alkaline Phosphatase Lactate Dehydrogenase Troponin T NT-Pro-B Natriuret Pep Total Protein Albumin Triglycerides Cholesterol LDL Cholesterol Direct Crossmatch 10/11/18 10/11/18 10/11/18 02:55 02:55 03:34 WBC RBC 2.35 L Hgb 7.7 L Hct 22.9 L MCV 98 H MCH 33 H MCHC RDW 19.9 H Plt Count 23 L Seg Neuts % (Manual) 75.0 H Lymphocytes % (Manual) 11.0 L Nucleated RBC % Seg Neutrophils # Man Lymphocytes # (Manual) 1.0 L PT INR POC ABG pH POC ABG pCO2 POC ABG pO2 Sodium Potassium 5.3 H D Chloride Carbon Dioxide 14 L BUN 74 H Creatinine 5.4 H Glucose 126 H POC Glucose Lactic Acid 5.30 H* Uric Acid Calcium 7.8 L D Phosphorus Magnesium TIBC Ferritin Total Bilirubin 1.90 H Direct Bilirubin AST 306 H ALT 89 H Alkaline Phosphatase 246 H Lactate Dehydrogenase Troponin T NT-Pro-B Natriuret Pep Total Protein Albumin 3.4 L Triglycerides Cholesterol LDL Cholesterol Direct Crossmatch 10/11/18 10/11/18 10/11/18 03:34 05:47 05:48 WBC RBC Hgb Hct MCV MCH MCHC RDW Plt Count Seg Neuts % (Manual) Lymphocytes % (Manual) Nucleated RBC % Seg Neutrophils # Man Lymphocytes # (Manual) PT INR POC ABG pH 7.491 H POC ABG pCO2 24.9 L POC ABG pO2 166 H Sodium Potassium 5.2 H Chloride Carbon Dioxide 16 L BUN 80 H Creatinine 5.5 H Glucose 63 L POC Glucose Lactic Acid 3.80 H* Uric Acid Calcium 7.9 L Phosphorus Magnesium TIBC Ferritin Total Bilirubin Direct Bilirubin AST ALT Alkaline Phosphatase Lactate Dehydrogenase Troponin T NT-Pro-B Natriuret Pep Total Protein Albumin Triglycerides Cholesterol LDL Cholesterol Direct Crossmatch 10/11/18 10/11/18 10/11/18 09:56 17:34 17:34 WBC RBC Hgb Hct MCV MCH MCHC RDW Plt Count Seg Neuts % (Manual) Lymphocytes % (Manual) Nucleated RBC % Seg Neutrophils # Man Lymphocytes # (Manual) PT INR POC ABG pH POC ABG pCO2 POC ABG pO2 Sodium Potassium 3.4 L D Chloride Carbon Dioxide 17 L BUN 97 H Creatinine 7.3 H Glucose 135 H POC Glucose Lactic Acid 2.60 H* 2.30 H* Uric Acid Calcium 7.9 L Phosphorus 5.80 H Magnesium 2.70 H TIBC Ferritin Total Bilirubin Direct Bilirubin AST ALT Alkaline Phosphatase Lactate Dehydrogenase Troponin T NT-Pro-B Natriuret Pep Total Protein Albumin Triglycerides Cholesterol LDL Cholesterol Direct Crossmatch 10/11/18 10/11/18 10/11/18 17:35 17:36 19:21 WBC RBC Hgb Hct MCV MCH MCHC RDW Plt Count Seg Neuts % (Manual) Lymphocytes % (Manual) Nucleated RBC % Seg Neutrophils # Man Lymphocytes # (Manual) PT INR POC ABG pH POC ABG pCO2 POC ABG pO2 Sodium Potassium Chloride Carbon Dioxide BUN Creatinine Glucose POC Glucose Lactic Acid 2.60 H* Uric Acid 13.4 H Calcium Phosphorus Magnesium TIBC 236 L Ferritin 70232.0 H Total Bilirubin Direct Bilirubin AST ALT Alkaline Phosphatase Lactate Dehydrogenase Troponin T NT-Pro-B Natriuret Pep Total Protein Albumin Triglycerides Cholesterol LDL Cholesterol Direct Crossmatch 10/11/18 10/11/18 10/11/18 20:08 21:32 23:01 WBC RBC Hgb Hct MCV MCH MCHC RDW Plt Count Seg Neuts % (Manual) Lymphocytes % (Manual) Nucleated RBC % Seg Neutrophils # Man Lymphocytes # (Manual) PT INR POC ABG pH POC ABG pCO2 POC ABG pO2 Sodium Potassium Chloride Carbon Dioxide 16 L BUN 99 H Creatinine 8.1 H Glucose 147 H POC Glucose Lactic Acid 2.60 H* 3.20 H* Uric Acid Calcium 7.7 L Phosphorus Magnesium 2.60 H TIBC Ferritin Total Bilirubin Direct Bilirubin AST ALT Alkaline Phosphatase Lactate Dehydrogenase Troponin T NT-Pro-B Natriuret Pep Total Protein Albumin Triglycerides Cholesterol LDL Cholesterol Direct Crossmatch 10/12/18 10/12/18 10/12/18 04:29 04:57 04:57 WBC 15.0 H RBC 1.75 L Hgb 5.6 L* Hct 16.7 L* D MCV 95 H MCH MCHC RDW 20.7 H Plt Count 49 L D Seg Neuts % (Manual) 90.0 H Lymphocytes % (Manual) 4.0 L Nucleated RBC % 12.0 H Seg Neutrophils # Man 12.3 H Lymphocytes # (Manual) 0.5 L PT INR POC ABG pH 7.493 H POC ABG pCO2 23.1 L POC ABG pO2 176 H Sodium Potassium 3.0 L D Chloride Carbon Dioxide 15 L BUN 102 H Creatinine 8.8 H Glucose 110 H POC Glucose Lactic Acid Uric Acid Calcium 7.6 L Phosphorus 5.10 H Magnesium 2.50 H TIBC Ferritin Total Bilirubin Direct Bilirubin AST 667 H ALT 298 H Alkaline Phosphatase 154 H Lactate Dehydrogenase Troponin T NT-Pro-B Natriuret Pep Total Protein Albumin 2.8 L Triglycerides Cholesterol LDL Cholesterol Direct Crossmatch 10/12/18 10/12/18 10/12/18 04:57 06:43 14:05 WBC 14.0 H RBC 2.76 L Hgb 5.8 L* 8.7 L Hct 17.2 L* 25.1 L D MCV MCH MCHC 35 H RDW 19.0 H Plt Count 53 L Seg Neuts % (Manual) Lymphocytes % (Manual) 5.0 L Nucleated RBC % 40.0 H Seg Neutrophils # Man 9.0 H Lymphocytes # (Manual) 0.7 L PT 18.0 H INR 1.39 H POC ABG pH POC ABG pCO2 POC ABG pO2 Sodium Potassium Chloride Carbon Dioxide BUN Creatinine Glucose POC Glucose Lactic Acid Uric Acid Calcium Phosphorus Magnesium TIBC Ferritin Total Bilirubin Direct Bilirubin AST ALT Alkaline Phosphatase Lactate Dehydrogenase Troponin T NT-Pro-B Natriuret Pep Total Protein Albumin Triglycerides Cholesterol LDL Cholesterol Direct Crossmatch - Diagnostic Findings Additional findings: MRI Brain- numerous areas bilateral, mostly subcortical noted on diffusion weighted imaging, consistent with acute infarct. Contrast not given as pt in acute renal failure. Assessment and Plan This is a 43 YO M with acute bilateral abnormalities on MRI suggestive of ischemia, r/o septic emboli. Recommend: TTE noted, consider BRIANNE MRA head, look for signs of vasculitis, vessel occlusion LP when pt is more stable and thrombocytopenia is better Would hold on antiplatelet therapy for now, fine to check lipids, A1C, statin if liver function can tolerate mechanical VTE prophylaxis Continue care for his infectious and other medical issues as you are doing Agree that prognosis is guarded.
--- NOTE | 2018-10-12 17:42 | Consultation ---
History of Present Illness - Reason for Consult Consult date: 10/12/18 - History of Present Illness 43 YO Male with HIV, HTN, CVA, Nicotine Dependence, Malnutrition presents to ED for evaluation. Pt is confused/lethargic and unable to provide history. Pt history taken from ED staff, as well as family. Pt reported to have increased confusion this morning. Pt transported to [facility] for further care and evaluation. Pt seen and evaluated in ED and found to be in distress and unable to protect his airway. Pt intubated at time of my exam. Pt found to have Acute Respiratory Failure, Encephalopathy, Acidosis. Pt initiated on Sepsis protocol and admitted to ICU. Pulmonary team consulted in ED. NO reports of feve,r chills, CP, palpitations, NVD, Syncope, Trauma. bladder scan today---distended bladder (regan removed prior to my arrival) discussed with Dr. Muñoz intubated large well healed midline scar unable to place regan under us guidance - spt placed A/P retention renal failure urethral stricture continue spt Past History Past Medical History: HIV/AIDS, hypertension, stroke Past Surgical History: No surgical history, Other (reviewed) Social history: single, smoking. denies: alcohol abuse, prescription drug abuse Family history: hypertension Medications and Allergies Allergies Allergy/AdvReac Type Severity Reaction Status Date / Time Sulfa (Sulfonamide Allergy Unknown Verified 10/10/18 16:54 Antibiotics) Home Medications Medication Instructions Recorded Confirmed Last Taken Type Acetaminophen [Tylenol] 1,000 mg PO Q6HR 10/10/18 10/10/18 Unknown History Amlodipine Besylate [Norvasc] 10 mg PO QDAY 10/10/18 10/10/18 Unknown History Aspirin [Adult Aspirin] 81 mg PO DAILY 10/10/18 10/10/18 Unknown History Atorvastatin [Lipitor Tab] 80 mg PO DAILY 10/10/18 10/10/18 Unknown History Losartan [Cozaar] 100 mg PO QDAY 10/10/18 10/10/18 Unknown History Multivitamin [Multiple Vitamins] 1 each PO DAILY 10/10/18 10/10/18 Unknown History hydroCHLOROthiazide [HCTZ] 25 mg PO QDAY 10/10/18 10/10/18 Unknown History Active Meds: Active Medications Albuterol (Proventil) 2.5 mg IH Q3HRT PRN PRN Reason: Shortness Of Breath Amlodipine Besylate (Norvasc) 10 mg PO QDAY RUBI Last Admin: 10/12/18 14:53 Dose: 10 mg Documented by: Lipase/Protease/Amylase (Carrie Reed 10,500 Unit) 1 each FEEDTUBE PRN PRN PRN Reason: For Clogged Feeding Tube Atovaquone (Mepron) 750 mg PO BID RUBI Last Admin: 10/12/18 14:45 Dose: 750 mg Documented by: Hydralazine HCl (Apresoline) 10 mg IV Q4HR PRN PRN Reason: SBP>175 or DBP>115 Last Admin: 10/12/18 16:53 Dose: 10 mg Documented by: Hydrophilic Ointment (Vaseline Lip Therapy) 1 applic TP Q2HR PRN PRN Reason: Dry Lips Propofol (Diprivan 10 Mg/Ml) 1,000 mg in 100 mls @ 2.204 mls/hr IV TITR RUBI; Protocol Last Admin: 10/12/18 14:34 Dose: 50 mcg/kg/min, 22.045 mls/hr Documented by: Nicardipine HCl 50 mg/ Sodium (Chloride) 250 mls @ 25 mls/hr IV TITR RUBI; Protocol Metronidazole (Flagyl 500 Mg/100 Ml) 500 mg in 100 mls @ 100 mls/hr IV Q8HR RUBI; Protocol Last Admin: 10/12/18 14:42 Dose: 100 mls/hr Documented by: Fluconazole (Diflucan) 200 mls @ 100 mls/hr IV Q24HR RUBI; Protocol Last Admin: 10/12/18 14:43 Dose: 100 mls/hr Documented by: Sodium Chloride (Nacl 0.45% 1000 Ml) 1,000 mls @ 150 mls/hr IV DIRECT RUBI Last Admin: 10/12/18 06:05 Dose: 150 mls/hr Documented by: Sodium Chloride 172 meq/ (Dextrose) 543 mls @ 25 mls/hr IV ONCE RUBI Last Admin: 10/12/18 14:22 Dose: 25 mls/hr Documented by: Acyclovir 350 mg/ Sodium (Chloride) 107 mls @ 100 mls/hr IV Q24HR RUBI Last Admin: 10/12/18 14:33 Dose: 100 mls/hr Documented by: Penicillin G Potassium 12 mil. (units/ Sodium Chloride) 250 mls @ 20.833 mls/hr IV Q12H RUBI Last Admin: 10/12/18 14:44 Dose: 20.833 mls/hr Documented by: Sodium Chloride (Nacl 0.9%) 100 mls @ 999 mls/hr IV CHON PRN PRN Reason: Hypotension Sodium Chloride (Nacl 0.9%) 100 mls @ 999 mls/hr IV CHON PRN PRN Reason: Hypotension Multi-Ingred Cream/Lotion/Oil/Oint (Artificial Tears Ophth Oint) 1 applic OU Q4HR PRN PRN Reason: Dry Eye(s) Multivitamins (Theragran Tab) 1 each PO DAILY [facility] Last Admin: 10/12/18 14:53 Dose: 1 each Documented by: Pantoprazole Sodium (Protonix) 40 mg IV BID [facility] Last Admin: 10/12/18 14:53 Dose: 40 mg Documented by: Simple Syrup (Simple Syrup) 15 ml FEEDTUBE PRN PRN PRN Reason: Hypoglycemia Simple Syrup (Simple Syrup) 30 ml FEEDTUBE PRN PRN PRN Reason: Hypoglycemia Sodium Bicarbonate (Sodium Bicarbonate) 325 mg FEEDTUBE PRN PRN PRN Reason: For Clogged Feeding Tube Sodium Chloride (Sodium Chloride Flush Syringe 10 Ml) 10 ml IV BID [facility] Last Admin: 10/12/18 14:45 Dose: 10 ml Documented by: Sodium Chloride (Sodium Chloride Flush Syringe 10 Ml) 10 ml IV PRN PRN PRN Reason: LINE FLUSH Exam - Constitutional Vitals: Temp Pulse Resp BP Pulse Ox 96.5 F L 104 H 33 H 169/109 100 10/12/18 15:03 10/12/18 16:53 10/12/18 11:11 10/12/18 16:53 10/12/18 12:50 Results - Labs CBC & Chem 7: 10/12/18 14:05 10/12/18 04:57 Labs: Abnormal lab results 10/10/18 10/11/18 10/11/18 Range/Units 15:05 17:34 17:34 WBC (4.5-11.0) K/mm3 RBC (3.65-5.03) M/mm3 Hgb (11.8-15.2) gm/dl Hct (35.5-45.6) % MCV (84-94) fl MCHC (32-34) % RDW (13.2-15.2) % Plt Count (140-440) K/mm3 Seg Neuts % (Manual) (40.0-70.0) % Lymphocytes % (Manual) (13.4-35.0) % Nucleated RBC % (0.0-0.9) % Seg Neutrophils # Man (1.8-7.7) K/mm3 Lymphocytes # (Manual) (1.2-5.4) K/mm3 PT (12.2-14.9) Sec. INR (0.87-1.13) POC ABG pH (7.35-7.45) POC ABG pCO2 (35-45) POC ABG pO2 (80-105) Potassium 3.4 L D (3.6-5.0) mmol/L Carbon Dioxide 17 L (22-30) mmol/L BUN 97 H (9-20) mg/dL Creatinine 7.3 H (0.8-1.5) mg/dL Glucose 135 H (75-100) mg/dL Lactic Acid 2.30 H* (0.7-2.0) mmol/L Uric Acid (3.5-7.6) mg/dL Calcium 7.9 L (8.4-10.2) mg/dL Phosphorus 5.80 H (2.5-4.5) mg/dL Magnesium 2.70 H (1.7-2.3) mg/dL TIBC (250-450) mcg/dL Ferritin (13.0-400.0) ng/mL AST (5-40) units/L ALT (7-56) units/L Alkaline Phosphatase (35-129) units/L Albumin (3.9-5) g/dL Crossmatch See Detail 10/11/18 10/11/18 10/11/18 Range/Units 17:35 17:36 19:21 WBC (4.5-11.0) K/mm3 RBC (3.65-5.03) M/mm3 Hgb (11.8-15.2) gm/dl Hct (35.5-45.6) % MCV (84-94) fl MCHC (32-34) % RDW (13.2-15.2) % Plt Count (140-440) K/mm3 Seg Neuts % (Manual) (40.0-70.0) % Lymphocytes % (Manual) (13.4-35.0) % Nucleated RBC % (0.0-0.9) % Seg Neutrophils # Man (1.8-7.7) K/mm3 Lymphocytes # (Manual) (1.2-5.4) K/mm3 PT (12.2-14.9) Sec. INR (0.87-1.13) POC ABG pH (7.35-7.45) POC ABG pCO2 (35-45) POC ABG pO2 (80-105) Potassium (3.6-5.0) mmol/L Carbon Dioxide (22-30) mmol/L BUN (9-20) mg/dL Creatinine (0.8-1.5) mg/dL Glucose (75-100) mg/dL Lactic Acid 2.60 H* (0.7-2.0) mmol/L Uric Acid 13.4 H (3.5-7.6) mg/dL Calcium (8.4-10.2) mg/dL Phosphorus (2.5-4.5) mg/dL Magnesium (1.7-2.3) mg/dL TIBC 236 L (250-450) mcg/dL Ferritin 94989.0 H (13.0-400.0) ng/mL AST (5-40) units/L ALT (7-56) units/L Alkaline Phosphatase (35-129) units/L Albumin (3.9-5) g/dL Crossmatch 10/11/18 10/11/18 10/11/18 Range/Units 20:08 21:32 23:01 WBC (4.5-11.0) K/mm3 RBC (3.65-5.03) M/mm3 Hgb (11.8-15.2) gm/dl Hct (35.5-45.6) % MCV (84-94) fl MCHC (32-34) % RDW (13.2-15.2) % Plt Count (140-440) K/mm3 Seg Neuts % (Manual) (40.0-70.0) % Lymphocytes % (Manual) (13.4-35.0) % Nucleated RBC % (0.0-0.9) % Seg Neutrophils # Man (1.8-7.7) K/mm3 Lymphocytes # (Manual) (1.2-5.4) K/mm3 PT (12.2-14.9) Sec. INR (0.87-1.13) POC ABG pH (7.35-7.45) POC ABG pCO2 (35-45) POC ABG pO2 (80-105) Potassium (3.6-5.0) mmol/L Carbon Dioxide 16 L (22-30) mmol/L BUN 99 H (9-20) mg/dL Creatinine 8.1 H (0.8-1.5) mg/dL Glucose 147 H (75-100) mg/dL Lactic Acid 2.60 H* 3.20 H* (0.7-2.0) mmol/L Uric Acid (3.5-7.6) mg/dL Calcium 7.7 L (8.4-10.2) mg/dL Phosphorus (2.5-4.5) mg/dL Magnesium 2.60 H (1.7-2.3) mg/dL TIBC (250-450) mcg/dL Ferritin (13.0-400.0) ng/mL AST (5-40) units/L ALT (7-56) units/L Alkaline Phosphatase (35-129) units/L Albumin (3.9-5) g/dL Crossmatch 10/12/18 10/12/18 10/12/18 Range/Units 04:29 04:57 04:57 WBC 15.0 H (4.5-11.0) K/mm3 RBC 1.75 L (3.65-5.03) M/mm3 Hgb 5.6 L* (11.8-15.2) gm/dl Hct 16.7 L* D (35.5-45.6) % MCV 95 H (84-94) fl MCHC (32-34) % RDW 20.7 H (13.2-15.2) % Plt Count 49 L D (140-440) K/mm3 Seg Neuts % (Manual) 90.0 H (40.0-70.0) % Lymphocytes % (Manual) 4.0 L (13.4-35.0) % Nucleated RBC % 12.0 H (0.0-0.9) % Seg Neutrophils # Man 12.3 H (1.8-7.7) K/mm3 Lymphocytes # (Manual) 0.5 L (1.2-5.4) K/mm3 PT (12.2-14.9) Sec. INR (0.87-1.13) POC ABG pH 7.493 H (7.35-7.45) POC ABG pCO2 23.1 L (35-45) POC ABG pO2 176 H (80-105) Potassium 3.0 L D (3.6-5.0) mmol/L Carbon Dioxide 15 L (22-30) mmol/L BUN 102 H (9-20) mg/dL Creatinine 8.8 H (0.8-1.5) mg/dL Glucose 110 H (75-100) mg/dL Lactic Acid (0.7-2.0) mmol/L Uric Acid (3.5-7.6) mg/dL Calcium 7.6 L (8.4-10.2) mg/dL Phosphorus 5.10 H (2.5-4.5) mg/dL Magnesium 2.50 H (1.7-2.3) mg/dL TIBC (250-450) mcg/dL Ferritin (13.0-400.0) ng/mL AST 667 H (5-40) units/L ALT 298 H (7-56) units/L Alkaline Phosphatase 154 H (35-129) units/L Albumin 2.8 L (3.9-5) g/dL Crossmatch 10/12/18 10/12/18 10/12/18 Range/Units 04:57 06:43 14:05 WBC 14.0 H (4.5-11.0) K/mm3 RBC 2.76 L (3.65-5.03) M/mm3 Hgb 5.8 L* 8.7 L (11.8-15.2) gm/dl Hct 17.2 L* 25.1 L D (35.5-45.6) % MCV (84-94) fl MCHC 35 H (32-34) % RDW 19.0 H (13.2-15.2) % Plt Count 53 L (140-440) K/mm3 Seg Neuts % (Manual) (40.0-70.0) % Lymphocytes % (Manual) 5.0 L (13.4-35.0) % Nucleated RBC % 40.0 H (0.0-0.9) % Seg Neutrophils # Man 9.0 H (1.8-7.7) K/mm3 Lymphocytes # (Manual) 0.7 L (1.2-5.4) K/mm3 PT 18.0 H (12.2-14.9) Sec. INR 1.39 H (0.87-1.13) POC ABG pH (7.35-7.45) POC ABG pCO2 (35-45) POC ABG pO2 (80-105) Potassium (3.6-5.0) mmol/L Carbon Dioxide (22-30) mmol/L BUN (9-20) mg/dL Creatinine (0.8-1.5) mg/dL Glucose (75-100) mg/dL Lactic Acid (0.7-2.0) mmol/L Uric Acid (3.5-7.6) mg/dL Calcium (8.4-10.2) mg/dL Phosphorus (2.5-4.5) mg/dL Magnesium (1.7-2.3) mg/dL TIBC (250-450) mcg/dL Ferritin (13.0-400.0) ng/mL AST (5-40) units/L ALT (7-56) units/L Alkaline Phosphatase (35-129) units/L Albumin (3.9-5) g/dL Crossmatch
--- NOTE | 2018-10-12 17:45 | Post Operative Note ---
Date of procedure: 10/12/18 Pre-op diagnosis: retention, urethral stricture Post-op diagnosis: same Findings: Patient was prepped and draped in the suprapubic area in a sterile fashion. 12F suprapubic catheter was placed with the aid of a bladed trocar and secured in place with 2-0 silk stitches and sterile dressing applied. Kay urine return. He tolerated the procedure well. Procedure: Insertion of 12F suprapubic catheter Surgeon: CARLOS URENA Estimated blood loss: minimal Pathology: none Condition: stable Disposition: ICU
[2018-10-12] MEDS ORDERED: LEVAQUIN 500MG/100ML 500 MG/100 ML BAG IV SCH (18:00)
--- NOTE | 2018-10-12 18:53 | Ultrasound Report ---
PROCEDURE: US RENAL BILAT HISTORY: Renal failure, presumed new FINDINGS: Real-time ultrasound of the kidneys was performed. Right kidney measures 10.1 x 4.5 x 6.1 cm. Cortical thickness is 1.2 cm which is normal. There is a r ight anterior mid pole renal cyst 0.7 cm. The left kidney measures 10.8 x 5.4 x 4.3 cm. No cyst, mass, stone or hydronephrosis is seen. Cortica l thickness is 1.1 cm which is normal. Renal cortical echotexture is increased bilaterally. This could represent an acute renal disease such glomerulonephritis. IMPRESSION: The kidneys appear normal in size but are increased in cortical echotexture This document is electronically signed by Delano Engel MD., October 12 2018 06:51:28 PM ET
[2018-10-12] MEDS: CARDENE 50 MG in NACL 0.9% 250ML 230 ML IV SCH (20:38)
--- NOTE | 2018-10-12 23:56 | Ultrasound Report ---
PROCEDURE: US ABDOMEN COMPLETE TECHNIQUE: PROCEDURE: US ABDOMEN COMPLETE TECHNIQUE: Real-time sonography in multiple planes of the abdomen was performed with image documenta tion. HISTORY: elevated LFTs COMPARISONS: None . FINDINGS: Liver: Normal size and echotexture with no evidence of cystic or solid mass lesions. Gallbladder: Fluid filled. No gallstones, wall thickening, pericholecystic fluid, or sonographic Mur phy's sign. Intrahepatic bile ducts: Normal caliber . Extrahepatic bile ducts: Normal caliber. Pancreas: Normal as visualized with suboptimal depiction of the pancreatic tail. Aorta: Visualized portions appear normal. IVC: Visualized portions appear normal. RIGHT kidney: Parenchymal echotexture is increased without calculi or hydronephrosis. Length: 10.1 x 4.5 x 6.1 cm. LEFT kidney: Parenchymal echotexture is increased without calculi or hydronephrosis. Length: 10.8 x 5.4 x 4.3 cm. Spleen: Normal size and echotexture. No focal lesions. Intraperitoneal fluid: None . Other: None . IMPRESSION: Increased renal parenchymal echotexture is consistent with chronic medical renal disease . HISTORY: elevated LFTs COMPARISONS: FINDINGS: IMPRESSION: . This document is electronically signed by Devyn Dupont MD., October 12 2018 11:54:52 PM ET
--- NOTE | 2018-10-13 00:36 | Cat Scan Report ---
PROCEDURE: CT ABDOMEN PELVIS WO CON TECHNIQUE: Computerized axial tomography of the abdomen and pelvis was performed without intravenous contrast. This study is performed without intravascular contrast material and its sensitivity for ab dominal and pelvic pathology, including neoplasms, inflammation, abscess, free fluid, thrombosis, art erial dissection and infarction, is reduced compared with a contrast enhanced study. HISTORY: severe sepsis and very high lactate COMPARISONS: None . FINDINGS: Visualized lower thorax: Mild bilateral lower lung atelectasis. Liver: Normal size and attenuation. Spleen: Normal size and attenuation. Gallbladder and biliary system: Normal. Pancreas: Normal. Adrenals: Normal. Kidneys: Normal. GI tract: The stomach is normal. There is a nasogastric tube, the seventh of the distal stomach. Sma ll bowel has a normal caliber. No obstruction is seen., Appendix region and colon are normal. Evaluat ion of the bowel is limited without IV and oral contrast. . Lymph nodes and mesentery: Normal. Vasculature: A right femoral catheter ends in the inferior vena cava.. Bladder: There is a suprapubic urinary catheter.. Reproductive organs: Normal. Peritoneum: No free fluid. Musculoskeletal structures: No significant abnormality. Other: None. IMPRESSION: There is no evidence of intestinal or urinary tract obstruction. No ileus or enteritis. Mild bilateral lower lung atelectasis. . This document is electronically signed by Shawnee Lipscomb DO., October 13 2018 12:34:06 AM ET
[2018-10-13] MEDS: DIPRIVAN 10 MG/ML 1,000 MG/100 ML BOTTLE IV SCH ×2 (01:16→06:02)
[2018-10-13] MEDS: MEPRON PO SCH ×3 (01:18→23:39)
[2018-10-13] MEDS: PFIZERPEN 12 MIL.UNITS in NACL 0.9% 250ML 250 ML IV SCH ×2 (02:47→14:44)
--- NOTE | 2018-10-13 03:34 | XRay Report ---
PROCEDURE: XR CHEST 1V AP TECHNIQUE: Chest radiograph single view. HISTORY: follow up respiratory failure COMPARISONS: None . FINDINGS: Heart: Normal. Mediastinum/Vessels: Normal. Lungs/Pleural space: Normal. Bony thorax: No acute osseous abnormality. Life support devices: The endotracheal tube ends 2 cm above hedy. Nasogastric with hemidiaphragms.. IMPRESSION: There is no evidence of an acute infiltrate or effusion. The endotracheal tube and nasogastric tube are properly positioned.. This document is electronically signed by Shawnee Lipscomb DO., October 13 2018 03:32:21 AM ET
[2018-10-13 04:24] LABS: Hematocrit 22.9 % (35.5-45.6); Hemoglobin 8.2 gm/dl (11.8-15.2); Mean Corpuscular HGB Conc 36 % (32-34); Mean Corpuscular Volume 89 fl (84-94); Platelet Count 123 K/mm3 (140-440); Red Blood Count 2.58 M/mm3 (3.65-5.03); Red Cell Distribution Width 19.5 % (13.2-15.2)
[2018-10-13 04:39] LABS: INR 1.17 (0.87-1.13)
[2018-10-13 04:42] LABS: Albumin 2.5 g/dL (3.9-5); Calcium 7.9 mg/dL (8.4-10.2)
[2018-10-13 05:11] LABS: Band Neutrophils # (Manual) 0.2 K/mm3; Basophils % (Manual) 0 % (0.0-1.8); Total Cells Counted 100
[2018-10-13 05:12] LABS: Anisocytosis 2+; Burr Cells 1+; Helmet Cells Few; Hypochromasia Few; Ovalocytes Few; Platelet Estimate Appears Decreased; Poikilocytosis 2+; Schistocytes 1+
[2018-10-13] MEDS: FLAGYL 500 MG/100 ML 500 MG/100 ML BAG IV SCH ×3 (06:02→23:39)
[2018-10-13 06:22] LABS: Creatinine,Urine 30.8 mg/dL (0.1-20.0)
--- NOTE | 2018-10-13 08:26 | Progress Note ---
Assessment and Plan Assessment and plan: Acute encephalopathy Neurochecks. Neurology consulted LP ordered but not stable for procedure Acute resp failure s/p intubated in ED Pulm following Vent weaning per protocol HIV/AIDS Details unclear. No previous records available ID Physician following Acute Bilateral infarcts with edema Consult Neurology Not given Aspirin because hematuria, hemoglobin drop SHRUTHI vs acute on CKD Worse Cr 8.8 yesterday, started on dialysis yesterday, 10/12 and Cr improved 5.6 today Baseline unknown Unable to place regan. Consulted and called Dr. Paula, urology and he came and placed suprapubic catheter Metabolic acidosis Started bicarb drip Thrombocytopenia, 49 Transfuse 1 Unit because hemoglobin drop, likely bleed, hematuria Anemia, hemoglobin drop Hgb 8.2 after 3 Units PRBC get stool occult blood Hyperkalemia, resolved Thrombocytopenia Plt 123 after @ Units plateletphresis Elevated LFT Hyperlipidemia Hypertensive urgency. Started on cardene drip History of stroke Elevated Troponin Likely due to kidney disease Prognosis guarded Full code status History Interval history: Patient with HIV/AIDS presented with altered mental status, then could not protect airway,intubated in ED Hemoglobin drop, transfused yesterday. Dialysis started yesterday fever Hematuria Hospitalist Physical - Physical exam Narrative exam: GEN: Not in acute distress, HEENT: Normocephalic, atraumatic, Neck: supple, No JVD Lungs:Clear to auscultation, no wheeze Heart:S1 and S2 regular, no murmurs, rubs or gallop, Abd:soft, non tender, non distended, normal bowel sounds Ext: No edema, no clubbing or cyanosis Neuro:Intubated, sedated - Constitutional Vitals: Temp Pulse Resp BP Pulse Ox 99.5 F 115 H 31 H 147/97 100 10/13/18 07:54 10/13/18 08:10 10/13/18 07:55 10/13/18 08:10 10/13/18 08:10 Results - Labs CBC & Chem 7: 10/13/18 03:40 10/13/18 03:40 Labs: Laboratory Last Values WBC 11.5 K/mm3 (4.5-11.0) H 10/13/18 03:40 RBC 2.58 M/mm3 (3.65-5.03) L 10/13/18 03:40 Hgb 8.2 gm/dl (11.8-15.2) L 10/13/18 03:40 Hct 22.9 % (35.5-45.6) L 10/13/18 03:40 MCV 89 fl (84-94) 10/13/18 03:40 MCH 32 pg (28-32) 10/13/18 03:40 MCHC 36 % (32-34) H 10/13/18 03:40 RDW 19.5 % (13.2-15.2) H 10/13/18 03:40 Plt Count 123 K/mm3 (140-440) L D 10/13/18 03:40 Add Manual Diff Complete 10/13/18 03:40 Total Counted 100 10/13/18 03:40 Seg Neuts % (Manual) 93.0 % (40.0-70.0) H 10/13/18 03:40 Band Neutrophils % 2.0 % 10/13/18 03:40 Lymphocytes % (Manual) 0 % (13.4-35.0) L 10/13/18 03:40 Reactive Lymphs % (Man) 0 % 10/13/18 03:40 Monocytes % (Manual) 4.0 % (0.0-7.3) 10/13/18 03:40 Eosinophils % (Manual) 1.0 % (0.0-4.3) 10/13/18 03:40 Basophils % (Manual) 0 % (0.0-1.8) 10/13/18 03:40 Metamyelocytes % 0 % 10/13/18 03:40 Myelocytes % 0 % 10/13/18 03:40 Promyelocytes % 0 % 10/13/18 03:40 Blast Cells % 0 % 10/13/18 03:40 Nucleated RBC % 44.0 % (0.0-0.9) H 10/13/18 03:40 Seg Neutrophils # Man 10.7 K/mm3 (1.8-7.7) H 10/13/18 03:40 Band Neutrophils # 0.2 K/mm3 10/13/18 03:40 Lymphocytes # (Manual) 0.0 K/mm3 (1.2-5.4) L 10/13/18 03:40 Abs React Lymphs (Man) 0.0 K/mm3 10/13/18 03:40 Monocytes # (Manual) 0.5 K/mm3 (0.0-0.8) 10/13/18 03:40 Eosinophils # (Manual) 0.1 K/mm3 (0.0-0.4) 10/13/18 03:40 Basophils # (Manual) 0.0 K/mm3 (0.0-0.1) 10/13/18 03:40 Metamyelocytes # 0.0 K/mm3 10/13/18 03:40 Myelocytes # 0.0 K/mm3 10/13/18 03:40 Promyelocytes # 0.0 K/mm3 10/13/18 03:40 Blast Cells # 0.0 K/mm3 10/13/18 03:40 WBC Morphology Not Reportable 10/13/18 03:40 Hypersegmented Neuts Not Reportable 10/13/18 03:40 Hyposegmented Neuts Not Reportable 10/13/18 03:40 Hypogranular Neuts Not Reportable 10/13/18 03:40 Smudge Cells Not Reportable 10/13/18 03:40 Toxic Granulation Not Reportable 10/13/18 03:40 Toxic Vacuolation Not Reportable 10/13/18 03:40 Dohle Bodies Not Reportable 10/13/18 03:40 Pelger-Huet Anomaly Not Reportable 10/13/18 03:40 Kartik Rods Not Reportable 10/13/18 03:40 Platelet Estimate Appears decreased 10/13/18 03:40 Clumped Platelets Not Reportable 10/13/18 03:40 Plt Clumps, EDTA Not Reportable 10/13/18 03:40 Large Platelets Not Reportable 10/13/18 03:40 Giant Platelets Not Reportable 10/13/18 03:40 Platelet Satelliting Not Reportable 10/13/18 03:40 Plt Morphology Comment Not Reportable 10/13/18 03:40 RBC Morphology Not Reportable 10/13/18 03:40 Dimorphic RBCs Not Reportable 10/13/18 03:40 Polychromasia Few 10/13/18 03:40 Hypochromasia Few 10/13/18 03:40 Poikilocytosis 2+ 10/13/18 03:40 Anisocytosis 2+ 10/13/18 03:40 Microcytosis Few 10/13/18 03:40 Macrocytosis Not Reportable 10/13/18 03:40 Spherocytes Not Reportable 10/13/18 03:40 Pappenheimer Bodies Not Reportable 10/13/18 03:40 Sickle Cells Not Reportable 10/13/18 03:40 Target Cells Not Reportable 10/13/18 03:40 Tear Drop Cells Not Reportable 10/13/18 03:40 Ovalocytes Few 10/13/18 03:40 Helmet Cells Few 10/13/18 03:40 [place] Bodies Not Reportable 10/13/18 03:40 [place] Rings Not Reportable 10/13/18 03:40 Jani Cells 1+ 10/13/18 03:40 Bite Cells Not Reportable 10/13/18 03:40 Crenated Cell Not Reportable 10/13/18 03:40 Elliptocytes Not Reportable 10/13/18 03:40 Acanthocytes (Spur) Few 10/13/18 03:40 Rouleaux Not Reportable 10/13/18 03:40 Hemoglobin C Crystals Not Reportable 10/13/18 03:40 Schistocytes 1+ 10/13/18 03:40 Malaria parasites Not Reportable 10/13/18 03:40 Jv Bodies Not Reportable 10/13/18 03:40 Hem Pathologist Commnt No 10/13/18 03:40 PT 15.6 Sec. (12.2-14.9) H 10/13/18 03:40 INR 1.17 (0.87-1.13) H 10/13/18 03:40 APTT 27.9 Sec. (24.2-36.6) 10/10/18 15:02 Thrombin Time 16.9 Sec. (15.1-19.6) 10/10/18 15:02 POC ABG pH 7.522 (7.35-7.45) H 10/13/18 04:10 POC ABG pCO2 29.1 (35-45) L 10/13/18 04:10 POC ABG pO2 132 (80-105) H 10/13/18 04:10 POC ABG HCO3 23.9 10/13/18 04:10 POC ABG Total CO2 25 10/13/18 04:10 POC ABG O2 Sat 99 10/13/18 04:10 POC ABG Base Excess 1 10/13/18 04:10 FiO2 28 % 10/13/18 04:10 Sodium 144 mmol/L (137-145) 10/13/18 03:40 Potassium 3.3 mmol/L (3.6-5.0) L 10/13/18 03:40 Chloride 104.3 mmol/L (98-107) 10/13/18 03:40 Carbon Dioxide 21 mmol/L (22-30) L 10/13/18 03:40 Anion Gap 22 mmol/L 10/13/18 03:40 BUN 51 mg/dL (9-20) H 10/13/18 03:40 Creatinine 5.7 mg/dL (0.8-1.5) H 10/13/18 03:40 Estimated GFR 13 ml/min 10/13/18 03:40 BUN/Creatinine Ratio 9 % 10/13/18 03:40 Glucose 140 mg/dL (75-100) H 10/13/18 03:40 POC Glucose 274 (70-105) H 10/10/18 15:29 Osmolality 338 Mosm/kg 10/11/18 17:35 Lactic Acid 1.80 mmol/L (0.7-2.0) 10/12/18 05:59 Uric Acid 13.4 mg/dL (3.5-7.6) H 10/11/18 17:36 Calcium 7.9 mg/dL (8.4-10.2) L 10/13/18 03:40 Phosphorus 5.10 mg/dL (2.5-4.5) H 10/12/18 04:57 Magnesium 2.50 mg/dL (1.7-2.3) H 10/12/18 04:57 Iron 147 ug/dL (49-181) 10/11/18 17:36 TIBC 236 mcg/dL (250-450) L 10/11/18 17:36 Ferritin 73165.0 ng/mL (13.0-400.0) H 10/11/18 17:35 Total Bilirubin 1.00 mg/dL (0.1-1.2) 10/13/18 03:40 Direct Bilirubin 0.4 mg/dL (0-0.2) H 10/10/18 15:42 Indirect Bilirubin 1.1 mg/dL 10/10/18 15:42 AST 367 units/L (5-40) H 10/13/18 03:40 ALT 238 units/L (7-56) H 10/13/18 03:40 Alkaline Phosphatase 134 units/L (35-129) H 10/13/18 03:40 Ammonia 50.0 umol/L (25-60) 10/10/18 15:42 Lactate Dehydrogenase 2342 units/L (91-180) H 10/10/18 16:54 Troponin T 0.272 ng/mL (0.00-0.029) H* 10/10/18 18:07 NT-Pro-B Natriuret Pep 14829 pg/mL (0-450) H 10/10/18 15:42 Total Protein 6.2 g/dL (6.3-8.2) L 10/13/18 03:40 Albumin 2.5 g/dL (3.9-5) L 10/13/18 03:40 Albumin/Globulin Ratio 0.7 % 10/13/18 03:40 Triglycerides 329 mg/dL (2-149) H 10/10/18 15:02 Cholesterol 234 mg/dL (50-199) H 10/10/18 15:02 LDL Cholesterol Direct 139 mg/dL (50-130) H 10/10/18 15:02 HDL Cholesterol 42 mg/dL (40-59) 10/10/18 15:02 Cholesterol/HDL Ratio 5.57 % 10/10/18 15:02 Urine Creatinine 30.8 mg/dL (0.1-20.0) H 10/13/18 04:43 Urine Sodium 106 mmol/L 10/13/18 04:43 Urine Total Protein 75 mg/dL (5-11.8) H 10/13/18 04:43 RPR Titer 1:32 10/11/18 17:37 RPR Reactive (Nonreactive) 10/11/18 17:37 Hepatitis A IgM Ab Non-reactive (NonReactive) 10/11/18 17:34 Hep Bs Antigen Non-reactive (Negative) 10/11/18 17:34 Hep B Core IgM Ab Non-reactive (NonReactive) 10/11/18 17:34 Hepatitis C Antibody Non-reactive (NonReactive) 10/11/18 17:34 Blood Type A POSITIVE 10/10/18 15:05 Antibody Screen Negative 10/10/18 15:05 Crossmatch See Detail 10/10/18 15:05 Nutrition/Malnutrition Assess - Dietary Evaluation Nutrition/Malnutrition Findings: Nutrition Notes Start: 10/11/18 11:14 Freq: Status: Active Protocol: Document 10/12/18 09:56 CP (Rec: 10/12/18 10:02 CP [id number]) Co-Sign 10/12/18 09:56 LP Nutrition Notes Initial or Follow up Reassessment Current Diagnosis Acute Kidney Injury Sepsis Respiratory Failure Other Pertinent Diagnosis Lactic acidosis, metabolic acidosis, HIV Current Diet Nepro at 45 mL/hr Labs/Tests K: 3.0 BUN: 102 Cr: 8.8 B PO4: 5.1 M.5 Pertinent Medications Reviewed Height 5 ft 9 in Weight 73.482 kg [place] Body Weight (kg) 72.72 BMI 23.9 Weight Status Appropriate Subjective/Other Information Nepro not infusing at time of visit 09:30. Pt undergoing ultrasound. Percent of energy/protein needs met: 0%/0% Burn Absent Trauma Absent #1 Nutrition Diagnosis Inadequate oral intake Etiology Sepsis, Resp failure As Evidenced by Signs and Symptoms Vent status Is patient on ventilator? Yes Is Patient Ambulatory and/or Out of Bed No REE-([place]. or-confined to bed) 1953.384 Calculation [facility] Additional Notes Pro: 88-145g (1.2-2g/kg) Fluid: 1mL/kcal Nutrition Intervention Change Diet Order: Continue current Nutrition Support: Nepro at 45 mL/hr Water flush 100 mL q4h. Kcal 1,944 Protein (gm) 87 Fluid (mL) 1,159 Goal #1 TF to start Anticipated Discharge Needs: Unable to determine at this time Follow-Up By: 10/15/18 Additional Comments F/U: TF to start, renal labs
--- NOTE | 2018-10-13 08:51 | Progress Note ---
Assessment and Plan 43 y/o male with acute encephalopathy, acute respiratory failure, and presumed acute vs acute on chronic renal failure. 1. Started on PEN G, ID continues to follow. Also added acyclovir given concern for CMV 2. Cardene drip for BP control. Asked nursing to decrease Diprovan, and increase cardene for blood pressure control. 3. Continue suprapubic catheter 4. Neuro made no mention of increasing Na to help with mental state so will hold on hypertonic saline at this time. 5. Continue vent support and other empiric abx therapy 6. Reviewed heme note, await smear results. Platelets better and anemia better but patient has been transfused both items 7. Overall prognosis remains extremely guarded to poor 8. Will attempt to start feeds today 9. Discussed with mother over the form the severity of current disease state. She lives in [place] and is attempting to get here. She is the primary decision maker for the patient as he is not and has no children. CCT 31 minutes. Subjective Date of service: 10/13/18 Principal diagnosis: SIRS Interval history: No acute events. Started HD on yesterday and tolerated. No family at bedside but I spoke with his mother over the phone personally. She does know about his HIV status. Per her, He has not been the same since his first stroke. She confirmed that he has not taken his medications appropriately since the initial stroke as well. Objective Vital Signs - 12hr 10/12/18 10/12/18 10/12/18 20:45 21:01 21:15 Temperature Pulse Rate 118 H 135 H 126 H Pulse Rate [ From Monitor] Respiratory 18 29 H 20 Rate Blood Pressure 162/110 161/106 142/93 O2 Sat by Pulse 100 100 100 Oximetry 10/12/18 10/12/18 10/12/18 21:30 21:45 22:00 Temperature Pulse Rate 122 H 123 H 121 H Pulse Rate [ From Monitor] Respiratory 18 16 18 Rate Blood Pressure 131/82 134/90 139/91 O2 Sat by Pulse 100 100 100 Oximetry 10/12/18 10/12/18 10/12/18 22:13 22:15 22:30 Temperature Pulse Rate 121 H 118 H Pulse Rate [ 121 H From Monitor] Respiratory 17 23 20 Rate Blood Pressure 137/94 140/91 O2 Sat by Pulse 100 100 100 Oximetry 10/12/18 10/12/18 10/12/18 22:45 23:00 23:07 Temperature Pulse Rate 119 H 119 H 115 H Pulse Rate [ From Monitor] Respiratory 21 18 Rate Blood Pressure 140/94 144/96 144/96 O2 Sat by Pulse 100 100 100 Oximetry 10/12/18 10/12/18 10/12/18 23:15 23:30 23:40 Temperature 99.9 F H Pulse Rate 117 H 117 H Pulse Rate [ From Monitor] Respiratory 19 21 Rate Blood Pressure 143/97 138/96 O2 Sat by Pulse 100 100 Oximetry 10/12/18 10/13/18 10/13/18 23:45 00:11 00:15 Temperature Pulse Rate 117 H 129 H 132 H Pulse Rate [ From Monitor] Respiratory 18 25 H Rate Blood Pressure 147/99 147/99 147/99 O2 Sat by Pulse 100 100 100 Oximetry 10/13/18 10/13/18 10/13/18 00:30 00:45 01:00 Temperature Pulse Rate 116 H 119 H 119 H Pulse Rate [ From Monitor] Respiratory 18 17 20 Rate Blood Pressure 137/89 143/95 147/97 O2 Sat by Pulse 100 100 100 Oximetry 10/13/18 10/13/18 10/13/18 01:15 01:30 01:45 Temperature Pulse Rate 126 H 119 H 122 H Pulse Rate [ From Monitor] Respiratory 20 20 20 Rate Blood Pressure 153/107 145/95 153/102 O2 Sat by Pulse 100 100 100 Oximetry 10/13/18 10/13/18 10/13/18 02:00 02:15 02:30 Temperature Pulse Rate 120 H 122 H 123 H Pulse Rate [ From Monitor] Respiratory 18 26 H 28 H Rate Blood Pressure 148/98 153/98 153/100 O2 Sat by Pulse 100 100 100 Oximetry 10/13/18 10/13/18 10/13/18 02:45 03:00 03:07 Temperature 99.6 F Pulse Rate 118 H 124 H Pulse Rate [ From Monitor] Respiratory 23 24 Rate Blood Pressure 147/98 156/105 O2 Sat by Pulse 100 100 Oximetry 10/13/18 10/13/18 10/13/18 03:12 03:15 03:30 Temperature Pulse Rate 117 H 118 H 124 H Pulse Rate [ From Monitor] Respiratory 23 29 H Rate Blood Pressure 156/105 147/98 162/108 O2 Sat by Pulse 100 100 100 Oximetry 03/10/0210/13/18 10/13/18 03:45 04:00 04:15 Temperature Pulse Rate 117 H 121 H 126 H Pulse Rate [ 121 H From Monitor] Respiratory 21 28 H 31 H Rate Blood Pressure 150/100 151/105 164/110 O2 Sat by Pulse 100 100 100 Oximetry 10/13/18 10/13/18 10/13/18 04:30 04:45 05:00 Temperature Pulse Rate 127 H 123 H 118 H Pulse Rate [ From Monitor] Respiratory 27 H 24 20 Rate Blood Pressure 168/108 157/107 157/107 O2 Sat by Pulse 100 100 100 Oximetry 10/13/18 10/13/18 10/13/18 05:15 05:30 05:45 Temperature Pulse Rate 118 H 119 H 119 H Pulse Rate [ From Monitor] Respiratory 24 20 22 Rate Blood Pressure 146/90 143/93 145/95 O2 Sat by Pulse 100 100 100 Oximetry 10/13/18 10/13/18 10/13/18 06:00 06:15 06:30 Temperature Pulse Rate 119 H 114 H 116 H Pulse Rate [ From Monitor] Respiratory 20 19 25 H Rate Blood Pressure 146/98 140/97 143/96 O2 Sat by Pulse 100 100 100 Oximetry 10/13/18 10/13/18 10/13/18 06:45 07:00 07:15 Temperature Pulse Rate 115 H 120 H 113 H Pulse Rate [ From Monitor] Respiratory 22 17 23 Rate Blood Pressure 146/97 146/99 141/90 O2 Sat by Pulse 100 100 100 Oximetry 10/13/18 10/13/18 10/13/18 07:30 07:45 07:54 Temperature 99.5 F Pulse Rate 122 H 115 H Pulse Rate [ From Monitor] Respiratory 28 H 19 Rate Blood Pressure 160/102 147/97 O2 Sat by Pulse 100 100 Oximetry 10/13/18 10/13/18 07:55 08:10 Temperature Pulse Rate 115 H Pulse Rate [ 123 H From Monitor] Respiratory 31 H Rate Blood Pressure 147/97 O2 Sat by Pulse 100 100 Oximetry Constitutional: no acute distress, comatose Eyes: non-icteric ENT: other (orally intubated, not on sedation) Neck: supple Effort: mildly labored Ascultation: Bilateral: clear, diminished breath sounds Percussion: Bilateral: not dull Cardiovascular: regular rate and rhythm (sinus tach) Gastrointestinal: normoactive bowel sounds, other (now with suprapubic catheter) Extremities: no cyanosis, no edema Neurologic: unable to assess CBC and BMP: 10/13/18 03:40 10/13/18 03:40 ABG, PT/INR, D-dimer: ABG POC ABG pH 7.522 (7.35-7.45) H 10/13/18 04:10 POC ABG pCO2 29.1 (35-45) L 10/13/18 04:10 POC ABG pO2 132 (80-105) H 10/13/18 04:10 POC ABG HCO3 23.9 10/13/18 04:10 POC ABG Total CO2 25 10/13/18 04:10 POC ABG O2 Sat 99 10/13/18 04:10 PT/INR, D-dimer PT 15.6 Sec. (12.2-14.9) H 10/13/18 03:40 INR 1.17 (0.87-1.13) H 10/13/18 03:40 Abnormal lab findings: Abnormal Labs 10/10/18 10/10/18 10/10/18 15:02 15:02 15:02 WBC RBC 2.38 L Hgb 8.1 L Hct 24.9 L MCV 105 H MCH 34 H MCHC RDW 21.4 H Plt Count 20 L Seg Neuts % (Manual) 84.0 H Lymphocytes % (Manual) 8.0 L Nucleated RBC % Seg Neutrophils # Man 7.8 H Lymphocytes # (Manual) 0.7 L PT 16.2 H INR 1.22 H POC ABG pH POC ABG pCO2 POC ABG pO2 Sodium 136 L Potassium Chloride 88.2 L Carbon Dioxide 8 L* BUN 70 H Creatinine 5.6 H Glucose 331 H POC Glucose Lactic Acid Uric Acid Calcium Phosphorus Magnesium TIBC Ferritin Total Bilirubin Direct Bilirubin AST ALT Alkaline Phosphatase Lactate Dehydrogenase Troponin T 0.298 H* NT-Pro-B Natriuret Pep Total Protein Albumin Triglycerides 329 H Cholesterol 234 H LDL Cholesterol Direct 139 H Urine Creatinine Urine Total Protein Crossmatch 10/10/18 10/10/18 10/10/18 15:05 15:29 15:42 WBC RBC Hgb Hct MCV MCH MCHC RDW Plt Count Seg Neuts % (Manual) Lymphocytes % (Manual) Nucleated RBC % Seg Neutrophils # Man Lymphocytes # (Manual) PT INR POC ABG pH POC ABG pCO2 POC ABG pO2 Sodium Potassium Chloride Carbon Dioxide BUN Creatinine Glucose POC Glucose 274 H Lactic Acid 17.90 H* Uric Acid Calcium Phosphorus Magnesium TIBC Ferritin Total Bilirubin Direct Bilirubin AST ALT Alkaline Phosphatase Lactate Dehydrogenase Troponin T NT-Pro-B Natriuret Pep Total Protein Albumin Triglycerides Cholesterol LDL Cholesterol Direct Urine Creatinine Urine Total Protein Crossmatch See Detail 10/10/18 10/10/18 10/10/18 15:42 16:22 16:54 WBC RBC Hgb Hct MCV MCH MCHC RDW Plt Count Seg Neuts % (Manual) Lymphocytes % (Manual) Nucleated RBC % Seg Neutrophils # Man Lymphocytes # (Manual) PT INR POC ABG pH POC ABG pCO2 9.0 L POC ABG pO2 140 H Sodium Potassium Chloride Carbon Dioxide BUN Creatinine Glucose POC Glucose Lactic Acid Uric Acid Calcium Phosphorus Magnesium TIBC Ferritin Total Bilirubin 1.50 H Direct Bilirubin 0.4 H AST 105 H ALT Alkaline Phosphatase Lactate Dehydrogenase 2342 H Troponin T NT-Pro-B Natriuret Pep 29166 H Total Protein 9.2 H Albumin Triglycerides Cholesterol LDL Cholesterol Direct Urine Creatinine Urine Total Protein Crossmatch 10/10/18 10/10/18 10/10/18 17:08 18:07 18:24 WBC RBC Hgb Hct MCV MCH MCHC RDW Plt Count Seg Neuts % (Manual) Lymphocytes % (Manual) Nucleated RBC % Seg Neutrophils # Man Lymphocytes # (Manual) PT INR POC ABG pH 7.172 L POC ABG pCO2 POC ABG pO2 533 H Sodium Potassium Chloride Carbon Dioxide BUN Creatinine Glucose POC Glucose Lactic Acid 14.80 H* Uric Acid Calcium Phosphorus Magnesium TIBC Ferritin Total Bilirubin Direct Bilirubin AST ALT Alkaline Phosphatase Lactate Dehydrogenase Troponin T 0.272 H* NT-Pro-B Natriuret Pep Total Protein Albumin Triglycerides Cholesterol LDL Cholesterol Direct Urine Creatinine Urine Total Protein Crossmatch 10/10/18 10/10/18 10/10/18 19:58 20:54 20:54 WBC RBC Hgb Hct MCV MCH MCHC RDW Plt Count Seg Neuts % (Manual) Lymphocytes % (Manual) Nucleated RBC % Seg Neutrophils # Man Lymphocytes # (Manual) PT INR POC ABG pH POC ABG pCO2 POC ABG pO2 Sodium Potassium Chloride Carbon Dioxide BUN Creatinine Glucose POC Glucose Lactic Acid 11.50 H* 2.90 H* 2.90 H* Uric Acid Calcium Phosphorus Magnesium TIBC Ferritin Total Bilirubin Direct Bilirubin AST ALT Alkaline Phosphatase Lactate Dehydrogenase Troponin T NT-Pro-B Natriuret Pep Total Protein Albumin Triglycerides Cholesterol LDL Cholesterol Direct Urine Creatinine Urine Total Protein Crossmatch 10/10/18 10/10/18 10/11/18 22:43 23:55 02:44 WBC RBC Hgb Hct MCV MCH MCHC RDW Plt Count Seg Neuts % (Manual) Lymphocytes % (Manual) Nucleated RBC % Seg Neutrophils # Man Lymphocytes # (Manual) PT INR POC ABG pH POC ABG pCO2 25.9 L POC ABG pO2 192 H Sodium Potassium Chloride Carbon Dioxide BUN Creatinine Glucose POC Glucose Lactic Acid 4.60 H* 5.40 H* Uric Acid Calcium Phosphorus Magnesium TIBC Ferritin Total Bilirubin Direct Bilirubin AST ALT Alkaline Phosphatase Lactate Dehydrogenase Troponin T NT-Pro-B Natriuret Pep Total Protein Albumin Triglycerides Cholesterol LDL Cholesterol Direct Urine Creatinine Urine Total Protein Crossmatch 10/11/18 10/11/18 10/11/18 02:55 02:55 03:34 WBC RBC 2.35 L Hgb 7.7 L Hct 22.9 L MCV 98 H MCH 33 H MCHC RDW 19.9 H Plt Count 23 L Seg Neuts % (Manual) 75.0 H Lymphocytes % (Manual) 11.0 L Nucleated RBC % Seg Neutrophils # Man Lymphocytes # (Manual) 1.0 L PT INR POC ABG pH POC ABG pCO2 POC ABG pO2 Sodium Potassium 5.3 H D Chloride Carbon Dioxide 14 L BUN 74 H Creatinine 5.4 H Glucose 126 H POC Glucose Lactic Acid 5.30 H* Uric Acid Calcium 7.8 L D Phosphorus Magnesium TIBC Ferritin Total Bilirubin 1.90 H Direct Bilirubin AST 306 H ALT 89 H Alkaline Phosphatase 246 H Lactate Dehydrogenase Troponin T NT-Pro-B Natriuret Pep Total Protein Albumin 3.4 L Triglycerides Cholesterol LDL Cholesterol Direct Urine Creatinine Urine Total Protein Crossmatch 10/11/18 10/11/18 10/11/18 03:34 05:47 05:48 WBC RBC Hgb Hct MCV MCH MCHC RDW Plt Count Seg Neuts % (Manual) Lymphocytes % (Manual) Nucleated RBC % Seg Neutrophils # Man Lymphocytes # (Manual) PT INR POC ABG pH 7.491 H POC ABG pCO2 24.9 L POC ABG pO2 166 H Sodium Potassium 5.2 H Chloride Carbon Dioxide 16 L BUN 80 H Creatinine 5.5 H Glucose 63 L POC Glucose Lactic Acid 3.80 H* Uric Acid Calcium 7.9 L Phosphorus Magnesium TIBC Ferritin Total Bilirubin Direct Bilirubin AST ALT Alkaline Phosphatase Lactate Dehydrogenase Troponin T NT-Pro-B Natriuret Pep Total Protein Albumin Triglycerides Cholesterol LDL Cholesterol Direct Urine Creatinine Urine Total Protein Crossmatch 10/11/18 10/11/18 10/11/18 09:56 17:34 17:34 WBC RBC Hgb Hct MCV MCH MCHC RDW Plt Count Seg Neuts % (Manual) Lymphocytes % (Manual) Nucleated RBC % Seg Neutrophils # Man Lymphocytes # (Manual) PT INR POC ABG pH POC ABG pCO2 POC ABG pO2 Sodium Potassium 3.4 L D Chloride Carbon Dioxide 17 L BUN 97 H Creatinine 7.3 H Glucose 135 H POC Glucose Lactic Acid 2.60 H* 2.30 H* Uric Acid Calcium 7.9 L Phosphorus 5.80 H Magnesium 2.70 H TIBC Ferritin Total Bilirubin Direct Bilirubin AST ALT Alkaline Phosphatase Lactate Dehydrogenase Troponin T NT-Pro-B Natriuret Pep Total Protein Albumin Triglycerides Cholesterol LDL Cholesterol Direct Urine Creatinine Urine Total Protein Crossmatch 10/11/18 10/11/18 10/11/18 17:35 17:36 19:21 WBC RBC Hgb Hct MCV MCH MCHC RDW Plt Count Seg Neuts % (Manual) Lymphocytes % (Manual) Nucleated RBC % Seg Neutrophils # Man Lymphocytes # (Manual) PT INR POC ABG pH POC ABG pCO2 POC ABG pO2 Sodium Potassium Chloride Carbon Dioxide BUN Creatinine Glucose POC Glucose Lactic Acid 2.60 H* Uric Acid 13.4 H Calcium Phosphorus Magnesium TIBC 236 L Ferritin 68309.0 H Total Bilirubin Direct Bilirubin AST ALT Alkaline Phosphatase Lactate Dehydrogenase Troponin T NT-Pro-B Natriuret Pep Total Protein Albumin Triglycerides Cholesterol LDL Cholesterol Direct Urine Creatinine Urine Total Protein Crossmatch 10/11/18 10/11/18 10/11/18 20:08 21:32 23:01 WBC RBC Hgb Hct MCV MCH MCHC RDW Plt Count Seg Neuts % (Manual) Lymphocytes % (Manual) Nucleated RBC % Seg Neutrophils # Man Lymphocytes # (Manual) PT INR POC ABG pH POC ABG pCO2 POC ABG pO2 Sodium Potassium Chloride Carbon Dioxide 16 L BUN 99 H Creatinine 8.1 H Glucose 147 H POC Glucose Lactic Acid 2.60 H* 3.20 H* Uric Acid Calcium 7.7 L Phosphorus Magnesium 2.60 H TIBC Ferritin Total Bilirubin Direct Bilirubin AST ALT Alkaline Phosphatase Lactate Dehydrogenase Troponin T NT-Pro-B Natriuret Pep Total Protein Albumin Triglycerides Cholesterol LDL Cholesterol Direct Urine Creatinine Urine Total Protein Crossmatch 10/12/18 10/12/18 10/12/18 04:29 04:57 04:57 WBC 15.0 H RBC 1.75 L Hgb 5.6 L* Hct 16.7 L* D MCV 95 H MCH MCHC RDW 20.7 H Plt Count 49 L D Seg Neuts % (Manual) 90.0 H Lymphocytes % (Manual) 4.0 L Nucleated RBC % 12.0 H Seg Neutrophils # Man 12.3 H Lymphocytes # (Manual) 0.5 L PT INR POC ABG pH 7.493 H POC ABG pCO2 23.1 L POC ABG pO2 176 H Sodium Potassium 3.0 L D Chloride Carbon Dioxide 15 L BUN 102 H Creatinine 8.8 H Glucose 110 H POC Glucose Lactic Acid Uric Acid Calcium 7.6 L Phosphorus 5.10 H Magnesium 2.50 H TIBC Ferritin Total Bilirubin Direct Bilirubin AST 667 H ALT 298 H Alkaline Phosphatase 154 H Lactate Dehydrogenase Troponin T NT-Pro-B Natriuret Pep Total Protein Albumin 2.8 L Triglycerides Cholesterol LDL Cholesterol Direct Urine Creatinine Urine Total Protein Crossmatch 10/12/18 10/12/18 10/12/18 04:57 06:43 14:05 WBC 14.0 H RBC 2.76 L Hgb 5.8 L* 8.7 L Hct 17.2 L* 25.1 L D MCV MCH MCHC 35 H RDW 19.0 H Plt Count 53 L Seg Neuts % (Manual) Lymphocytes % (Manual) 5.0 L Nucleated RBC % 40.0 H Seg Neutrophils # Man 9.0 H Lymphocytes # (Manual) 0.7 L PT 18.0 H INR 1.39 H POC ABG pH POC ABG pCO2 POC ABG pO2 Sodium Potassium Chloride Carbon Dioxide BUN Creatinine Glucose POC Glucose Lactic Acid Uric Acid Calcium Phosphorus Magnesium TIBC Ferritin Total Bilirubin Direct Bilirubin AST ALT Alkaline Phosphatase Lactate Dehydrogenase Troponin T NT-Pro-B Natriuret Pep Total Protein Albumin Triglycerides Cholesterol LDL Cholesterol Direct Urine Creatinine Urine Total Protein Crossmatch 10/13/18 10/13/18 10/13/18 03:40 03:40 03:40 WBC 11.5 H RBC 2.58 L Hgb 8.2 L Hct 22.9 L MCV MCH MCHC 36 H RDW 19.5 H Plt Count 123 L D Seg Neuts % (Manual) 93.0 H Lymphocytes % (Manual) 0 L Nucleated RBC % 44.0 H Seg Neutrophils # Man 10.7 H Lymphocytes # (Manual) 0.0 L PT 15.6 H INR 1.17 H POC ABG pH POC ABG pCO2 POC ABG pO2 Sodium Potassium 3.3 L Chloride Carbon Dioxide 21 L BUN 51 H Creatinine 5.7 H Glucose 140 H POC Glucose Lactic Acid Uric Acid Calcium 7.9 L Phosphorus Magnesium TIBC Ferritin Total Bilirubin Direct Bilirubin AST 367 H ALT 238 H Alkaline Phosphatase 134 H Lactate Dehydrogenase Troponin T NT-Pro-B Natriuret Pep Total Protein 6.2 L Albumin 2.5 L Triglycerides Cholesterol LDL Cholesterol Direct Urine Creatinine Urine Total Protein Crossmatch 10/13/18 10/13/18 04:10 04:43 WBC RBC Hgb Hct MCV MCH MCHC RDW Plt Count Seg Neuts % (Manual) Lymphocytes % (Manual) Nucleated RBC % Seg Neutrophils # Man Lymphocytes # (Manual) PT INR POC ABG pH 7.522 H POC ABG pCO2 29.1 L POC ABG pO2 132 H Sodium Potassium Chloride Carbon Dioxide BUN Creatinine Glucose POC Glucose Lactic Acid Uric Acid Calcium Phosphorus Magnesium TIBC Ferritin Total Bilirubin Direct Bilirubin AST ALT Alkaline Phosphatase Lactate Dehydrogenase Troponin T NT-Pro-B Natriuret Pep Total Protein Albumin Triglycerides Cholesterol LDL Cholesterol Direct Urine Creatinine 30.8 H Urine Total Protein 75 H Crossmatch
--- NOTE | 2018-10-13 09:51 | Hem/Onc Progress Note ---
Assessment and Plan 1. Anemia. At admission, hemoglobin was 8.1, now it is 5.8. Transfusion support. 2. Platelets at admission was 20 and now it is improving. He has not had any transfusion still this time. 3. White cell count is elevated. 4. PT/INR slightly elevated. 5. Renal failure. 6. ALT elevated. 7. The patient has multiple medical issues. PLAN: I will ask for a smear evaluation. I will call the lab for same. Supportive care in the interim while we looked for primary etiology. 3/ - plt better - s/p transfusion d/w dr rain and dr carrillo - Patient Problems (1) Thrombocytopenia associated with AIDS Current Visit: Yes Status: Acute Subjective Date of service: 10/13/18 Principal diagnosis: low plt Interval history: d/w dr carrillo - regan issues Objective - Exam Narrative Exam: on vent - not communicative - Constitutional Vitals: Last Vital Signs Temp 99.5 F 10/13/18 07:54 Pulse 115 H 10/13/18 08:10 Resp 31 H 10/13/18 07:55 BP 147/97 10/13/18 08:10 Pulse Ox 100 10/13/18 08:10 General appearance: no acute distress Performance status: 4-completely disabled - EENT ENT: other (intubated) Lymph node exam: negative cervical - Respiratory Respiratory: bilateral: diminished - Cardiovascular Heart Sounds: Present: S1 & S2 Extremities: No edema - Gastrointestinal General gastrointestinal: Present: soft, non-tender Rectal Exam: deferred - Genitourinary Male genitourinary: Present: deferred - Integumentary Integumentary: warm - Neurologic Neurologic: other (not comunicative) - Labs Lab Results: Laboratory Results - last 24 hr 10/10/18 10/11/18 10/12/18 15:05 17:37 04:57 WBC 15.0 H RBC Hgb Hct MCV MCH MCHC RDW Plt Count Add Manual Diff Total Counted 100 Seg Neuts % (Manual) 90.0 H Band Neutrophils % 4.0 Lymphocytes % (Manual) 4.0 L Reactive Lymphs % (Man) 0 Monocytes % (Manual) 2.0 Eosinophils % (Manual) 0 Basophils % (Manual) 0 Metamyelocytes % 0 Myelocytes % 0 Promyelocytes % 0 Blast Cells % 0 Nucleated RBC % 12.0 H Seg Neutrophils # Man 12.3 H Band Neutrophils # 0.5 Lymphocytes # (Manual) 0.5 L Abs React Lymphs (Man) 0.0 Monocytes # (Manual) 0.3 Eosinophils # (Manual) 0.0 Basophils # (Manual) 0.0 Metamyelocytes # 0.0 Myelocytes # 0.0 Promyelocytes # 0.0 Blast Cells # 0.0 WBC Morphology Not Reportable Hypersegmented Neuts Not Reportable Hyposegmented Neuts Not Reportable Hypogranular Neuts Not Reportable Smudge Cells Not Reportable Toxic Granulation Not Reportable Toxic Vacuolation Not Reportable Dohle Bodies Not Reportable Pelger-Huet Anomaly Not Reportable Kartik Rods Not Reportable Platelet Estimate Consistent w auto Clumped Platelets Not Reportable Plt Clumps, EDTA Not Reportable Large Platelets Not Reportable Giant Platelets Not Reportable Platelet Satelliting Not Reportable Plt Morphology Comment Not Reportable RBC Morphology Not Reportable Dimorphic RBCs Not Reportable Polychromasia Not Reportable Hypochromasia Not Reportable Poikilocytosis 2+ Anisocytosis 1+ Microcytosis Few Macrocytosis Not Reportable Spherocytes Not Reportable Pappenheimer Bodies Not Reportable Sickle Cells Not Reportable Target Cells Not Reportable Tear Drop Cells Not Reportable Ovalocytes 1+ Helmet Cells Not Reportable [place] Bodies Not Reportable [place] Rings Not Reportable Jani Cells 2+ Bite Cells Not Reportable Crenated Cell Not Reportable Elliptocytes Few Acanthocytes (Spur) 1+ Rouleaux Not Reportable Hemoglobin C Crystals Not Reportable Schistocytes 1+ Malaria parasites Not Reportable Jv Bodies Not Reportable Hem Pathologist Commnt No PT INR POC ABG pH POC ABG pCO2 POC ABG pO2 POC ABG HCO3 POC ABG Total CO2 POC ABG O2 Sat POC ABG Base Excess FiO2 Sodium Potassium Chloride Carbon Dioxide Anion Gap BUN Creatinine Estimated GFR BUN/Creatinine Ratio Glucose Calcium Total Bilirubin AST ALT Alkaline Phosphatase Total Protein Albumin Albumin/Globulin Ratio Urine Creatinine Urine Sodium Urine Total Protein RPR Titer 1:32 RPR Reactive Blood Type A POSITIVE Antibody Screen Negative Crossmatch See Detail 10/12/18 10/13/18 10/13/18 14:05 03:40 03:40 WBC 14.0 H 11.5 H RBC 2.76 L 2.58 L Hgb 8.7 L 8.2 L Hct 25.1 L D 22.9 L MCV 91 89 MCH 32 32 MCHC 35 H 36 H RDW 19.0 H 19.5 H Plt Count 53 L 123 L D Add Manual Diff Complete Complete Total Counted 100 100 Seg Neuts % (Manual) 64.0 93.0 H Band Neutrophils % 27.0 2.0 Lymphocytes % (Manual) 5.0 L 0 L Reactive Lymphs % (Man) 0 0 Monocytes % (Manual) 4.0 4.0 Eosinophils % (Manual) 0 1.0 Basophils % (Manual) 0 0 Metamyelocytes % 0 0 Myelocytes % 0 0 Promyelocytes % 0 0 Blast Cells % 0 0 Nucleated RBC % 40.0 H 44.0 H Seg Neutrophils # Man 9.0 H 10.7 H Band Neutrophils # 3.8 0.2 Lymphocytes # (Manual) 0.7 L 0.0 L Abs React Lymphs (Man) 0.0 0.0 Monocytes # (Manual) 0.6 0.5 Eosinophils # (Manual) 0.0 0.1 Basophils # (Manual) 0.0 0.0 Metamyelocytes # 0.0 0.0 Myelocytes # 0.0 0.0 Promyelocytes # 0.0 0.0 Blast Cells # 0.0 0.0 WBC Morphology Not Reportable Not Reportable Hypersegmented Neuts Not Reportable Not Reportable Hyposegmented Neuts Not Reportable Not Reportable Hypogranular Neuts Not Reportable Not Reportable Smudge Cells Not Reportable Not Reportable Toxic Granulation Not Reportable Not Reportable Toxic Vacuolation Not Reportable Not Reportable Dohle Bodies Not Reportable Not Reportable Pelger-Huet Anomaly Not Reportable Not Reportable Kartik Rods Not Reportable Not Reportable Platelet Estimate Appears decreased Appears decreased Clumped Platelets Not Reportable Not Reportable Plt Clumps, EDTA Not Reportable Not Reportable Large Platelets Not Reportable Not Reportable Giant Platelets Not Reportable Not Reportable Platelet Satelliting Not Reportable Not Reportable Plt Morphology Comment Not Reportable Not Reportable RBC Morphology Not Reportable Not Reportable Dimorphic RBCs Not Reportable Not Reportable Polychromasia Not Reportable Few Hypochromasia 2+ Few Poikilocytosis 2+ 2+ Anisocytosis 2+ 2+ Microcytosis 1+ Few Macrocytosis Not Reportable Not Reportable Spherocytes Not Reportable Not Reportable Pappenheimer Bodies Not Reportable Not Reportable Sickle Cells Not Reportable Not Reportable Target Cells Not Reportable Not Reportable Tear Drop Cells Not Reportable Not Reportable Ovalocytes Few Few Helmet Cells Not Reportable Few [place] Bodies Not Reportable Not Reportable [place] Rings Not Reportable Not Reportable Jani Cells 2+ 1+ Bite Cells Not Reportable Not Reportable Crenated Cell Not Reportable Not Reportable Elliptocytes Not Reportable Not Reportable Acanthocytes (Spur) Not Reportable Few Rouleaux Not Reportable Not Reportable Hemoglobin C Crystals Not Reportable Not Reportable Schistocytes 2+ 1+ Malaria parasites Not Reportable Not Reportable Jv Bodies Not Reportable Not Reportable Hem Pathologist Commnt No No PT 15.6 H INR 1.17 H POC ABG pH POC ABG pCO2 POC ABG pO2 POC ABG HCO3 POC ABG Total CO2 POC ABG O2 Sat POC ABG Base Excess FiO2 Sodium Potassium Chloride Carbon Dioxide Anion Gap BUN Creatinine Estimated GFR BUN/Creatinine Ratio Glucose Calcium Total Bilirubin AST ALT Alkaline Phosphatase Total Protein Albumin Albumin/Globulin Ratio Urine Creatinine Urine Sodium Urine Total Protein RPR Titer RPR Blood Type Antibody Screen Crossmatch 10/13/18 10/13/18 10/13/18 03:40 04:10 04:43 WBC RBC Hgb Hct MCV MCH MCHC RDW Plt Count Add Manual Diff Total Counted Seg Neuts % (Manual) Band Neutrophils % Lymphocytes % (Manual) Reactive Lymphs % (Man) Monocytes % (Manual) Eosinophils % (Manual) Basophils % (Manual) Metamyelocytes % Myelocytes % Promyelocytes % Blast Cells % Nucleated RBC % Seg Neutrophils # Man Band Neutrophils # Lymphocytes # (Manual) Abs React Lymphs (Man) Monocytes # (Manual) Eosinophils # (Manual) Basophils # (Manual) Metamyelocytes # Myelocytes # Promyelocytes # Blast Cells # WBC Morphology Hypersegmented Neuts Hyposegmented Neuts Hypogranular Neuts Smudge Cells Toxic Granulation Toxic Vacuolation Dohle Bodies Pelger-Huet Anomaly Kartik Rods Platelet Estimate Clumped Platelets Plt Clumps, EDTA Large Platelets Giant Platelets Platelet Satelliting Plt Morphology Comment RBC Morphology Dimorphic RBCs Polychromasia Hypochromasia Poikilocytosis Anisocytosis Microcytosis Macrocytosis Spherocytes Pappenheimer Bodies Sickle Cells Target Cells Tear Drop Cells Ovalocytes Helmet Cells [place] Bodies [place] Rings [place] Cells Bite Cells Crenated Cell Elliptocytes Acanthocytes (Spur) Rouleaux Hemoglobin C Crystals Schistocytes Malaria parasites Jv Bodies Hem Pathologist Commnt PT INR POC ABG pH 7.522 H POC ABG pCO2 29.1 L POC ABG pO2 132 H POC ABG HCO3 23.9 POC ABG Total CO2 25 POC ABG O2 Sat 99 POC ABG Base Excess 1 FiO2 28 Sodium 144 Potassium 3.3 L Chloride 104.3 Carbon Dioxide 21 L Anion Gap 22 BUN 51 H Creatinine 5.7 H Estimated GFR 13 BUN/Creatinine Ratio 9 Glucose 140 H Calcium 7.9 L Total Bilirubin 1.00 AST 367 H ALT 238 H Alkaline Phosphatase 134 H Total Protein 6.2 L Albumin 2.5 L Albumin/Globulin Ratio 0.7 Urine Creatinine 30.8 H Urine Sodium 106 Urine Total Protein 75 H RPR Titer RPR Blood Type Antibody Screen Crossmatch Medications & Allergies - Medications Allergies/Adverse Reactions: Allergies Sulfa (Sulfonamide Antibiotics) Allergy (Verified 10/10/18 16:54) Unknown Home Medications: Home Medications Medication Instructions Recorded Confirmed Last Taken Type Acetaminophen [Tylenol] 1,000 mg PO Q6HR 10/10/18 10/10/18 Unknown History Amlodipine Besylate [Norvasc] 10 mg PO QDAY 10/10/18 10/10/18 Unknown History Aspirin [Adult Aspirin] 81 mg PO DAILY 10/10/18 10/10/18 Unknown History Atorvastatin [Lipitor Tab] 80 mg PO DAILY 10/10/18 10/10/18 Unknown History Losartan [Cozaar] 100 mg PO QDAY 10/10/18 10/10/18 Unknown History Multivitamin [Multiple Vitamins] 1 each PO DAILY 10/10/18 10/10/18 Unknown History hydroCHLOROthiazide [HCTZ] 25 mg PO QDAY 10/10/18 10/10/18 Unknown History Active Medications: Generic Name Dose Route Start Last Admin Trade Name Freq PRN Reason Stop Dose Admin Albuterol 2.5 mg 10/10/18 18:12 Proventil IH Q3HRT PRN Shortness Of Breath Amlodipine Besylate 10 mg 10/11/18 10:00 10/12/18 14:53 Norvasc PO 10 mg QDAY RUBI Administration Lipase/Protease/Amylase 1 each 10/11/18 12:[address] 10,500 Unit FEEDTUBE PRN PRN For Clogged Feeding Tube Atovaquone 750 mg 10/11/18 15:00 10/13/18 01:18 Mepron PO Not Given BID RUBI Hydralazine HCl 10 mg 10/12/18 15:50 10/12/18 16:53 Apresoline IV 10 mg Q4HR PRN Administration SBP>175 or DBP>115 Hydrophilic Ointment 1 applic 10/10/18 17:53 Vaseline Lip Therapy TP Q2HR PRN Dry Lips Propofol 1,000 mg in 100 mls @ 2.204 mls/hr 10/10/18 18:00 10/13/18 09:11 Diprivan 10 Mg/Ml IV 20 mcg/kg/min TITR RUBI 8.818 mls/hr Titration Protocol 5 MCG/KG/MIN Nicardipine HCl 50 mg/ Sodium 250 mls @ 25 mls/hr 10/11/18 13:00 10/13/18 08:03 Chloride IV 5 mg/hr TITR RUBI 25 mls/hr Titration Protocol 5 MG/HR Metronidazole 500 mg in 100 mls @ 100 mls/hr 10/11/18 15:00 10/13/18 06:02 Flagyl 500 Mg/100 Ml IV 100 mls/hr Q8HR RUBI Administration Protocol Fluconazole 200 mls @ 100 mls/hr 10/11/18 15:00 10/12/18 14:43 Diflucan IV 100 mls/hr Q24HR RUBI Administration Protocol Sodium Chloride 172 meq/ 543 mls @ 25 mls/hr 10/12/18 12:30 10/12/18 14:22 Dextrose IV 25 mls/hr ONCE RUBI Administration Acyclovir 350 mg/ Sodium 107 mls @ 100 mls/hr 10/12/18 14:00 10/12/18 14:33 Chloride IV 100 mls/hr Q24HR RUBI Administration Penicillin G Potassium 12 mil. 250 mls @ 20.833 mls/hr 10/12/18 14:00 10/13/18 02:47 units/ Sodium Chloride IV 20.833 mls/hr Q12H RUBI Administration Sodium Chloride 100 mls @ 999 mls/hr 10/12/18 13:47 Nacl 0.9% IV CHON PRN Hypotension Sodium Chloride 100 mls @ 999 mls/hr 10/12/18 17:26 Nacl 0.9% IV CHON PRN Hypotension Multi-Ingred Cream/Lotion/Oil/Oint 1 applic 10/10/18 17:53 Artificial Tears Ophth Oint OU Q4HR PRN Dry Eye(s) Multivitamins 1 each 10/11/18 10:00 10/12/18 14:53 Theragran Tab PO 1 each DAILY RUBI Administration Pantoprazole Sodium 40 mg 10/12/18 11:00 10/12/18 23:25 Protonix IV 40 mg BID RUBI Administration Simple Syrup 15 ml 10/11/18 12:58 Simple Syrup FEEDTUBE PRN PRN Hypoglycemia Simple Syrup 30 ml 10/11/18 12:58 Simple Syrup FEEDTUBE PRN PRN Hypoglycemia Sodium Bicarbonate 325 mg 10/11/18 12:58 Sodium Bicarbonate FEEDTUBE PRN PRN For Clogged Feeding Tube Sodium Chloride 10 ml 10/10/18 22:00 10/12/18 23:24 Sodium Chloride Flush Syringe 10 Ml IV 10 ml BID RUBI Administration Sodium Chloride 10 ml 10/10/18 18:12 Sodium Chloride Flush Syringe 10 Ml IV PRN PRN LINE FLUSH
[2018-10-13] MEDS: THERAGRAN Tab PO SCH (09:55)
[2018-10-13] MEDS: NORVASC PO SCH (09:55)
[2018-10-13] MEDS: PROTONIX IV SCH ×2 (09:55→23:39)
[2018-10-13] MEDS: SODIUM CHLORIDE FLUSH SYRINGE 10 ML IV SCH ×2 (09:56→23:40)
[2018-10-13] MEDS: ZOVIRAX IV SCH (09:57)
[2018-10-13] MEDS: DIFLUCAN 200 ML IV SCH (09:57)
[2018-10-13] MEDS: NACL 0.9% IV SCH (09:57)
--- NOTE | 2018-10-13 10:55 | Gastroenterology Progress Note ---
Assessment and Plan Anemia - no signs of overt gi bleeding; likely multifactorial. improved and stable after blood transfusions. conservative management from gi stand point unless pt develops signs of overt gi bleeding. Elevated liver enzymes - primarily hepatocellular elevation of unclear etiology. hep b,c neg; RUQ US without signs of dilatation to suggest obstruct process; possible multifactorial (sepsis, infection such as cmv/hsv/aids related, medic ation, congestive hepatopathy, etc). would just monitor for time being from gi stand point with current treatment Subjective Date of service: 10/13/18 Principal diagnosis: anemia, elevated liver enzymes Interval history: pt intubated, altered; no signs of overt gi bleeding Objective - Exam Narrative Exam: Gen: intubated/on vent, awake, confused CV: RRR Lungs: CTAB Abd: soft, nt, nd, +bs - Constitutional Vitals: Temp Pulse Resp BP Pulse Ox 99.5 F 116 H 31 H 132/84 100 10/13/18 07:54 10/13/18 09:55 10/13/18 07:55 10/13/18 09:55 10/13/18 08:10 - Labs CBC & Chem 7: 10/13/18 03:40 10/13/18 03:40 Labs: Laboratory Results - last 24 hr 10/10/18 10/11/18 10/12/18 15:05 17:37 14:05 WBC 14.0 H RBC 2.76 L Hgb 8.7 L Hct 25.1 L D MCV 91 MCH 32 MCHC 35 H RDW 19.0 H Plt Count 53 L Add Manual Diff Complete Total Counted 100 Seg Neuts % (Manual) 64.0 Band Neutrophils % 27.0 Lymphocytes % (Manual) 5.0 L Reactive Lymphs % (Man) 0 Monocytes % (Manual) 4.0 Eosinophils % (Manual) 0 Basophils % (Manual) 0 Metamyelocytes % 0 Myelocytes % 0 Promyelocytes % 0 Blast Cells % 0 Nucleated RBC % 40.0 H Seg Neutrophils # Man 9.0 H Band Neutrophils # 3.8 Lymphocytes # (Manual) 0.7 L Abs React Lymphs (Man) 0.0 Monocytes # (Manual) 0.6 Eosinophils # (Manual) 0.0 Basophils # (Manual) 0.0 Metamyelocytes # 0.0 Myelocytes # 0.0 Promyelocytes # 0.0 Blast Cells # 0.0 WBC Morphology Not Reportable Hypersegmented Neuts Not Reportable Hyposegmented Neuts Not Reportable Hypogranular Neuts Not Reportable Smudge Cells Not Reportable Toxic Granulation Not Reportable Toxic Vacuolation Not Reportable Dohle Bodies Not Reportable Pelger-Huet Anomaly Not Reportable Kartik Rods Not Reportable Platelet Estimate Appears decreased Clumped Platelets Not Reportable Plt Clumps, EDTA Not Reportable Large Platelets Not Reportable Giant Platelets Not Reportable Platelet Satelliting Not Reportable Plt Morphology Comment Not Reportable RBC Morphology Not Reportable Dimorphic RBCs Not Reportable Polychromasia Not Reportable Hypochromasia 2+ Poikilocytosis 2+ Anisocytosis 2+ Microcytosis 1+ Macrocytosis Not Reportable Spherocytes Not Reportable Pappenheimer Bodies Not Reportable Sickle Cells Not Reportable Target Cells Not Reportable Tear Drop Cells Not Reportable Ovalocytes Few Helmet Cells Not Reportable [place] Bodies Not Reportable [place] Rings Not Reportable Jani Cells 2+ Bite Cells Not Reportable Crenated Cell Not Reportable Elliptocytes Not Reportable Acanthocytes (Spur) Not Reportable Rouleaux Not Reportable Hemoglobin C Crystals Not Reportable Schistocytes 2+ Malaria parasites Not Reportable Jv Bodies Not Reportable Hem Pathologist Commnt No PT INR POC ABG pH POC ABG pCO2 POC ABG pO2 POC ABG HCO3 POC ABG Total CO2 POC ABG O2 Sat POC ABG Base Excess FiO2 Sodium Potassium Chloride Carbon Dioxide Anion Gap BUN Creatinine Estimated GFR BUN/Creatinine Ratio Glucose Calcium Total Bilirubin AST ALT Alkaline Phosphatase Total Protein Albumin Albumin/Globulin Ratio Urine Creatinine Urine Sodium Urine Total Protein RPR Titer 1:32 RPR Reactive Blood Type A POSITIVE Antibody Screen Negative Crossmatch See Detail 10/13/18 10/13/18 10/13/18 03:40 03:40 03:40 WBC 11.5 H RBC 2.58 L Hgb 8.2 L Hct 22.9 L MCV 89 MCH 32 MCHC 36 H RDW 19.5 H Plt Count 123 L D Add Manual Diff Complete Total Counted 100 Seg Neuts % (Manual) 93.0 H Band Neutrophils % 2.0 Lymphocytes % (Manual) 0 L Reactive Lymphs % (Man) 0 Monocytes % (Manual) 4.0 Eosinophils % (Manual) 1.0 Basophils % (Manual) 0 Metamyelocytes % 0 Myelocytes % 0 Promyelocytes % 0 Blast Cells % 0 Nucleated RBC % 44.0 H Seg Neutrophils # Man 10.7 H Band Neutrophils # 0.2 Lymphocytes # (Manual) 0.0 L Abs React Lymphs (Man) 0.0 Monocytes # (Manual) 0.5 Eosinophils # (Manual) 0.1 Basophils # (Manual) 0.0 Metamyelocytes # 0.0 Myelocytes # 0.0 Promyelocytes # 0.0 Blast Cells # 0.0 WBC Morphology Not Reportable Hypersegmented Neuts Not Reportable Hyposegmented Neuts Not Reportable Hypogranular Neuts Not Reportable Smudge Cells Not Reportable Toxic Granulation Not Reportable Toxic Vacuolation Not Reportable Dohle Bodies Not Reportable Pelger-Huet Anomaly Not Reportable Kartik Rods Not Reportable Platelet Estimate Appears decreased Clumped Platelets Not Reportable Plt Clumps, EDTA Not Reportable Large Platelets Not Reportable Giant Platelets Not Reportable Platelet Satelliting Not Reportable Plt Morphology Comment Not Reportable RBC Morphology Not Reportable Dimorphic RBCs Not Reportable Polychromasia Few Hypochromasia Few Poikilocytosis 2+ Anisocytosis 2+ Microcytosis Few Macrocytosis Not Reportable Spherocytes Not Reportable Pappenheimer Bodies Not Reportable Sickle Cells Not Reportable Target Cells Not Reportable Tear Drop Cells Not Reportable Ovalocytes Few Helmet Cells Few [place] Bodies Not Reportable [place] Rings Not Reportable [place] Cells 1+ Bite Cells Not Reportable Crenated Cell Not Reportable Elliptocytes Not Reportable Acanthocytes ([place]) Few Rouleaux Not Reportable Hemoglobin C Crystals Not Reportable Schistocytes 1+ Malaria parasites Not Reportable Jv Bodies Not Reportable Hem Pathologist Commnt No PT 15.6 H INR 1.17 H POC ABG pH POC ABG pCO2 POC ABG pO2 POC ABG HCO3 POC ABG Total CO2 POC ABG O2 Sat POC ABG Base Excess FiO2 Sodium 144 Potassium 3.3 L Chloride 104.3 Carbon Dioxide 21 L Anion Gap 22 BUN 51 H Creatinine 5.7 H Estimated GFR 13 BUN/Creatinine Ratio 9 Glucose 140 H Calcium 7.9 L Total Bilirubin 1.00 AST 367 H ALT 238 H Alkaline Phosphatase 134 H Total Protein 6.2 L Albumin 2.5 L Albumin/Globulin Ratio 0.7 Urine Creatinine Urine Sodium Urine Total Protein RPR Titer RPR Blood Type Antibody Screen Crossmatch 10/13/18 10/13/18 04:10 04:43 WBC RBC Hgb Hct MCV MCH MCHC RDW Plt Count Add Manual Diff Total Counted Seg Neuts % (Manual) Band Neutrophils % Lymphocytes % (Manual) Reactive Lymphs % (Man) Monocytes % (Manual) Eosinophils % (Manual) Basophils % (Manual) Metamyelocytes % Myelocytes % Promyelocytes % Blast Cells % Nucleated RBC % Seg Neutrophils # Man Band Neutrophils # Lymphocytes # (Manual) Abs React Lymphs (Man) Monocytes # (Manual) Eosinophils # (Manual) Basophils # (Manual) Metamyelocytes # Myelocytes # Promyelocytes # Blast Cells # WBC Morphology Hypersegmented Neuts Hyposegmented Neuts Hypogranular Neuts Smudge Cells Toxic Granulation Toxic Vacuolation Dohle Bodies Pelger-Huet Anomaly Kartik Rods Platelet Estimate Clumped Platelets Plt Clumps, EDTA Large Platelets Giant Platelets Platelet Satelliting Plt Morphology Comment RBC Morphology Dimorphic RBCs Polychromasia Hypochromasia Poikilocytosis Anisocytosis Microcytosis Macrocytosis Spherocytes Pappenheimer Bodies Sickle Cells Target Cells Tear Drop Cells Ovalocytes Helmet Cells [place] Bodies Lavinia Rings Jani Cells Bite Cells Crenated Cell Elliptocytes Acanthocytes ([place]) Rouleaux Hemoglobin C Crystals Schistocytes Malaria parasites Jv Bodies Hem Pathologist Commnt PT INR POC ABG pH 7.522 H POC ABG pCO2 29.1 L POC ABG pO2 132 H POC ABG HCO3 23.9 POC ABG Total CO2 25 POC ABG O2 Sat 99 POC ABG Base Excess 1 FiO2 28 Sodium Potassium Chloride Carbon Dioxide Anion Gap BUN Creatinine Estimated GFR BUN/Creatinine Ratio Glucose Calcium Total Bilirubin AST ALT Alkaline Phosphatase Total Protein Albumin Albumin/Globulin Ratio Urine Creatinine 30.8 H Urine Sodium 106 Urine Total Protein 75 H RPR Titer RPR Blood Type Antibody Screen Crossmatch
[2018-10-13] MEDS ORDERED: NACL IV ONE (11:15)
[2018-10-13] MEDS ORDERED: D5W IV ONE (11:15)
[2018-10-13] MEDS ORDERED: NACL 0.9% 100 ML IV PRN (12:24)
--- NOTE | 2018-10-13 13:20 | Progress Note ---
Assessment and Plan Impression * Acute renal failure. Most likely secondary to ATN * Respiratory failure * Encephalopathy * Sepsis * Anemia * Thrombocytopenia Recommendations * Patient had a Vas-Cath placed yesterday and dialysis has been initiated * He remains oliguric. Shall dialyze him again today * He most likely has ATN * Avoid nephrotoxins * Adjust meds for GFR less than 10 * Monitor fluid status and electrolytes closely * Consultants notes appreciated Subjective Date of service: 10/13/18 Principal diagnosis: anemia, elevated liver enzymes Interval history: Patient remains on the ventilator. On 28% FiO2. Unresponsive. Objective - Vital Signs Vital signs: Vital Signs - 12hr 10/13/18 10/13/18 10/13/18 01:30 01:45 02:00 Temperature Pulse Rate 119 H 122 H 120 H Pulse Rate [ From Monitor] Respiratory 20 20 18 Rate Blood Pressure 145/95 153/102 148/98 O2 Sat by Pulse 100 100 100 Oximetry 10/13/18 10/13/18 10/13/18 02:15 02:30 02:45 Temperature Pulse Rate 122 H 123 H 118 H Pulse Rate [ From Monitor] Respiratory 26 H 28 H 23 Rate Blood Pressure 153/98 153/100 147/98 O2 Sat by Pulse 100 100 100 Oximetry 10/13/18 10/13/18 10/13/18 03:00 03:07 03:12 Temperature 99.6 F Pulse Rate 124 H 117 H Pulse Rate [ From Monitor] Respiratory 24 Rate Blood Pressure 156/105 156/105 O2 Sat by Pulse 100 100 Oximetry 10/13/18 10/13/18 10/13/18 03:15 03:30 03:45 Temperature Pulse Rate 118 H 124 H 117 H Pulse Rate [ From Monitor] Respiratory 23 29 H 21 Rate Blood Pressure 147/98 162/108 150/100 O2 Sat by Pulse 100 100 100 Oximetry 10/13/18 10/13/18 10/13/18 04:00 04:15 04:30 Temperature Pulse Rate 121 H 126 H 127 H Pulse Rate [ 121 H From Monitor] Respiratory 28 H 31 H 27 H Rate Blood Pressure 151/105 164/110 168/108 O2 Sat by Pulse 100 100 100 Oximetry 10/13/18 10/13/18 10/13/18 04:45 05:00 05:15 Temperature Pulse Rate 123 H 118 H 118 H Pulse Rate [ From Monitor] Respiratory 24 20 24 Rate Blood Pressure 157/107 157/107 146/90 O2 Sat by Pulse 100 100 100 Oximetry 10/13/18 10/13/18 10/13/18 05:30 05:45 06:00 Temperature Pulse Rate 119 H 119 H 119 H Pulse Rate [ From Monitor] Respiratory 20 22 20 Rate Blood Pressure 143/93 145/95 146/98 O2 Sat by Pulse 100 100 100 Oximetry 10/13/18 10/13/18 10/13/18 06:15 06:30 06:45 Temperature Pulse Rate 114 H 116 H 115 H Pulse Rate [ From Monitor] Respiratory 19 25 H 22 Rate Blood Pressure 140/97 143/96 146/97 O2 Sat by Pulse 100 100 100 Oximetry 10/13/18 10/13/18 10/13/18 07:00 07:15 07:30 Temperature Pulse Rate 120 H 113 H 122 H Pulse Rate [ From Monitor] Respiratory 17 23 28 H Rate Blood Pressure 146/99 141/90 160/102 O2 Sat by Pulse 100 100 100 Oximetry 10/13/18 10/13/18 10/13/18 07:45 07:54 07:55 Temperature 99.5 F Pulse Rate 115 H Pulse Rate [ 123 H From Monitor] Respiratory 19 31 H Rate Blood Pressure 147/97 O2 Sat by Pulse 100 100 Oximetry 10/13/18 10/13/18 10/13/18 08:00 08:10 08:15 Temperature Pulse Rate 124 H 115 H 116 H Pulse Rate [ From Monitor] Respiratory 31 H 25 H Rate Blood Pressure 162/108 147/97 132/92 O2 Sat by Pulse 100 100 100 Oximetry 10/13/18 10/13/18 10/13/18 08:30 08:45 09:01 Temperature Pulse Rate 121 H 120 H 118 H Pulse Rate [ From Monitor] Respiratory 19 21 25 H Rate Blood Pressure 128/92 133/84 122/77 O2 Sat by Pulse 100 100 100 Oximetry 10/13/18 10/13/18 10/13/18 09:15 09:30 09:45 Temperature Pulse Rate 123 H 119 H 120 H Pulse Rate [ From Monitor] Respiratory 31 H 31 H 33 H Rate Blood Pressure 132/82 131/77 132/84 O2 Sat by Pulse 100 100 100 Oximetry 10/13/18 10/13/18 10/13/18 09:55 10:00 10:15 Temperature Pulse Rate 116 H 114 H 117 H Pulse Rate [ From Monitor] Respiratory 29 H 22 Rate Blood Pressure 132/84 121/74 123/77 O2 Sat by Pulse 100 100 Oximetry 10/13/18 10/13/18 10/13/18 10:30 10:45 11:00 Temperature Pulse Rate 121 H 121 H 111 H Pulse Rate [ From Monitor] Respiratory 34 H 37 H 25 H Rate Blood Pressure 128/77 130/72 109/67 O2 Sat by Pulse 100 100 100 Oximetry - General Appearance General appearance: well-developed, well-nourished, appears stated age, intubated EENT: PERRL, mucous membranes moist Neck: no JVD, no thyromegaly, no carotid bruit, supple Respiratory: Present: Clear to Ascultation Cardiology: regular, normal heart rate Gastrointestinal: normoactive bowel sounds, other (suprapubic tube in place) - Lab 10/13/18 03:40 10/13/18 03:40 Most recent lab results Calcium 7.9 mg/dL (8.4-10.2) L 10/13/18 03:40 Phosphorus 5.10 mg/dL (2.5-4.5) H 10/12/18 04:57 Magnesium 2.50 mg/dL (1.7-2.3) H 10/12/18 04:57 Urine Creatinine 30.8 mg/dL (0.1-20.0) H 10/13/18 04:43 Urine Sodium 106 mmol/L 10/13/18 04:43 Urine Total Protein 75 mg/dL (5-11.8) H 10/13/18 04:43 Medications & Allergies - Medications Allergies/Adverse Reactions: Allergies Sulfa (Sulfonamide Antibiotics) Allergy (Verified 10/10/18 16:54) Unknown Home Medications: Home Medications Medication Instructions Recorded Confirmed Last Taken Type Acetaminophen [Tylenol] 1,000 mg PO Q6HR 10/10/18 10/10/18 Unknown History Amlodipine Besylate [Norvasc] 10 mg PO QDAY 10/10/18 10/10/18 Unknown History Aspirin [Adult Aspirin] 81 mg PO DAILY 10/10/18 10/10/18 Unknown History Atorvastatin [Lipitor Tab] 80 mg PO DAILY 10/10/18 10/10/18 Unknown History Losartan [Cozaar] 100 mg PO QDAY 10/10/18 10/10/18 Unknown History Multivitamin [Multiple Vitamins] 1 each PO DAILY 10/10/18 10/10/18 Unknown History hydroCHLOROthiazide [HCTZ] 25 mg PO QDAY 10/10/18 10/10/18 Unknown History Active Medications: Generic Name Dose Route Start Last Admin Trade Name Freq PRN Reason Stop Dose Admin Albuterol 2.5 mg 10/10/18 18:12 Proventil IH Q3HRT PRN Shortness Of Breath Amlodipine Besylate 10 mg 10/11/18 10:00 10/13/18 09:55 Norvasc PO 10 mg QDAY RUBI Administration Lipase/Protease/Amylase 1 each 10/11/18 12:[address] 10,500 Unit FEEDTUBE PRN PRN For Clogged Feeding Tube Atovaquone 750 mg 10/11/18 15:00 10/13/18 09:55 Mepron PO 750 mg BID RUBI Administration Hydralazine HCl 10 mg 10/12/18 15:50 10/12/18 16:53 Apresoline IV 10 mg Q4HR PRN Administration SBP>175 or DBP>115 Hydrophilic Ointment 1 applic 10/10/18 17:53 Vaseline Lip Therapy TP Q2HR PRN Dry Lips Propofol 1,000 mg in 100 mls @ 2.204 mls/hr 10/10/18 18:00 10/13/18 10:17 Diprivan 10 Mg/Ml IV 0 mcg/kg/min TITR RUBI 0 mls/hr Titration Protocol 5 MCG/KG/MIN Nicardipine HCl 50 mg/ Sodium 250 mls @ 25 mls/hr 10/11/18 13:00 10/13/18 08:03 Chloride IV 5 mg/hr TITR RUBI 25 mls/hr Titration Protocol 5 MG/HR Metronidazole 500 mg in 100 mls @ 100 mls/hr 10/11/18 15:00 10/13/18 06:02 Flagyl 500 Mg/100 Ml IV 100 mls/hr Q8HR RUBI Administration Protocol Fluconazole 200 mls @ 100 mls/hr 10/11/18 15:00 10/13/18 09:57 Diflucan IV 100 mls/hr Q24HR RUBI Administration Protocol Acyclovir 350 mg/ Sodium 107 mls @ 100 mls/hr 10/12/18 14:00 10/13/18 09:57 Chloride IV 100 mls/hr Q24HR RUBI Administration Penicillin G Potassium 12 mil. 250 mls @ 20.833 mls/hr 10/12/18 14:00 10/13/18 02:47 units/ Sodium Chloride IV 20.833 mls/hr Q12H RUBI Administration Sodium Chloride 100 mls @ 999 mls/hr 10/12/18 13:47 Nacl 0.9% IV CHON PRN Hypotension Sodium Chloride 100 mls @ 999 mls/hr 10/12/18 17:26 Nacl 0.9% IV CHON PRN Hypotension Sodium Chloride 172 meq/ 543 mls @ 25 mls/hr 10/13/18 11:15 10/13/18 11:25 Dextrose IV 10/14/18 08:58 25 mls/hr ONCE ONE Administration Sodium Chloride 100 mls @ 999 mls/hr 10/13/18 12:24 Nacl 0.9% IV CHON PRN Hypotension Multi-Ingred Cream/Lotion/Oil/Oint 1 applic 10/10/18 17:53 Artificial Tears Ophth Oint OU Q4HR PRN Dry Eye(s) Multivitamins 1 each 10/11/18 10:00 10/13/18 09:55 Theragran Tab PO 1 each DAILY RUBI Administration Pantoprazole Sodium 40 mg 10/12/18 11:00 10/13/18 09:55 Protonix IV 40 mg BID RUBI Administration Simple Syrup 15 ml 10/11/18 12:58 Simple Syrup FEEDTUBE PRN PRN Hypoglycemia Simple Syrup 30 ml 10/11/18 12:58 Simple Syrup FEEDTUBE PRN PRN Hypoglycemia Sodium Bicarbonate 325 mg 10/11/18 12:58 Sodium Bicarbonate FEEDTUBE PRN PRN For Clogged Feeding Tube Sodium Chloride 10 ml 10/10/18 22:00 10/13/18 09:56 Sodium Chloride Flush Syringe 10 Ml IV 10 ml BID RUBI Administration Sodium Chloride 10 ml 10/10/18 18:12 Sodium Chloride Flush Syringe 10 Ml IV PRN PRN LINE FLUSH
[2018-10-13] MEDS: ATIVAN IV PRN (20:37)
[2018-10-13] MEDS: HALDOL IV PRN (20:56)
[2018-10-14] MEDS: ATIVAN IV PRN ×3 (02:26→20:02)
[2018-10-14] MEDS: PFIZERPEN 12 MIL.UNITS in NACL 0.9% 250ML 250 ML IV SCH ×2 (02:27→14:30)
[2018-10-14] MEDS: HALDOL IV PRN (02:27)
--- NOTE | 2018-10-14 02:54 | XRay Report ---
PROCEDURE: XR CHEST 1V AP TECHNIQUE: Chest radiograph single view. HISTORY: follow up respiratory failure COMPARISONS: 10/13/2018 . FINDINGS: Heart: Normal. Mediastinum/Vessels: Normal. Lungs/Pleural space: Normal. Bony thorax: No acute osseous abnormality. Life support devices: The ET tube and NG tube are in good position.. IMPRESSION: No acute infiltrates congestion or effusions.. This document is electronically signed by Claudio Friedman MD., October 14 2018 02:51:54 AM ET
[2018-10-14 04:53] LABS: Hematocrit 21.9 % (35.5-45.6); Hemoglobin 7.7 gm/dl (11.8-15.2); Mean Corpuscular HGB Conc 35 % (32-34); Mean Corpuscular Volume 89 fl (84-94); Red Blood Count 2.47 M/mm3 (3.65-5.03)
[2018-10-14] MEDS: FLAGYL 500 MG/100 ML 500 MG/100 ML BAG IV SCH ×2 (05:01→14:20)
[2018-10-14 05:03] LABS: Red Cell Distribution Width 21.2 % (13.2-15.2)
[2018-10-14 05:28] LABS: Calcium 8.6 mg/dL (8.4-10.2)
[2018-10-14 05:57] LABS: Platelet Count 40 K/mm3 (140-440)
--- NOTE | 2018-10-14 08:10 | Hem/Onc Progress Note ---
Assessment and Plan 1. Anemia. At admission, hemoglobin was 8.1, later low and s/p Transfusion support. 2. Platelets at admission was 20. 3. White cell count was elevated. 4. PT/INR h/o slightly elevated. 5. Renal failure. 6. ALT elevated. 7. The patient has multiple medical issues. PLAN: I will ask for a smear evaluation. I will call the lab for same. Supportive care in the interim while we looked for primary etiology. 10/13 - plt better - s/p transfusion d/w dr rain and dr carrillo 10/14 - low plt - rasta ctive bleed suprapubic catheter - Patient Problems (1) Thrombocytopenia associated with AIDS Current Visit: Yes Status: Acute Subjective Date of service: 10/14/18 Principal diagnosis: low plt Interval history: non communicative Objective - Exam Narrative Exam: non communicative - Constitutional Vitals: Last Vital Signs Temp 99.4 F 10/14/18 07:36 Pulse 126 H 10/14/18 07:36 Resp 24 10/14/18 07:36 BP 139/94 10/14/18 07:30 Pulse Ox 100 10/14/18 07:36 General appearance: no acute distress Performance status: 4-completely disabled - EENT ENT: other (intubated) Lymph node exam: negative cervical - Cardiovascular Heart Sounds: Present: S1 & S2 Extremities: No edema - Gastrointestinal General gastrointestinal: Present: soft, other (supra pubic cath) Rectal Exam: deferred - Genitourinary Male genitourinary: Present: deferred - Musculoskeletal Musculoskeletal: generalized weakness - Neurologic Neurologic: other (vent) - Labs Lab Results: Laboratory Results - last 24 hr 10/14/18 10/14/18 04:34 04:34 WBC 8.2 RBC 2.47 L Hgb 7.7 L Hct 21.9 L MCV 89 MCH 31 MCHC 35 H RDW 21.2 H Plt Count 40 L Sodium 145 Potassium 3.6 Chloride 102.7 Carbon Dioxide 24 Anion Gap 22 BUN 35 H Creatinine 5.2 H Estimated GFR 15 BUN/Creatinine Ratio 7 Glucose 144 H Calcium 8.6 Medications & Allergies - Medications Allergies/Adverse Reactions: Allergies Sulfa (Sulfonamide Antibiotics) Allergy (Verified 10/10/18 16:54) Unknown Home Medications: Home Medications Medication Instructions Recorded Confirmed Last Taken Type Acetaminophen [Tylenol] 1,000 mg PO Q6HR 10/10/18 10/10/18 Unknown History Amlodipine Besylate [Norvasc] 10 mg PO QDAY 10/10/18 10/10/18 Unknown History Aspirin [Adult Aspirin] 81 mg PO DAILY 10/10/18 10/10/18 Unknown History Atorvastatin [Lipitor Tab] 80 mg PO DAILY 10/10/18 10/10/18 Unknown History Losartan [Cozaar] 100 mg PO QDAY 10/10/18 10/10/18 Unknown History Multivitamin [Multiple Vitamins] 1 each PO DAILY 10/10/18 10/10/18 Unknown History hydroCHLOROthiazide [HCTZ] 25 mg PO QDAY 10/10/18 10/10/18 Unknown History Active Medications: Generic Name Dose Route Start Last Admin Trade Name Freq PRN Reason Stop Dose Admin Albuterol 2.5 mg 10/10/18 18:12 Proventil IH Q3HRT PRN Shortness Of Breath Amlodipine Besylate 10 mg 10/11/18 10:00 10/13/18 09:55 Norvasc PO 10 mg QDAY RUBI Administration Lipase/Protease/Amylase 1 each 10/11/18 12:58 Pancreaze 10,500 Unit FEEDTUBE PRN PRN For Clogged Feeding Tube Atovaquone 750 mg 10/11/18 15:00 10/13/18 23:39 Mepron PO 750 mg BID RUBI Administration Haloperidol Lactate 5 mg 10/13/18 19:45 10/14/18 02:27 Haldol IV 5 mg Q6H PRN Administration Agitation Hydralazine HCl 10 mg 10/12/18 15:50 10/12/18 16:53 Apresoline IV 10 mg Q4HR PRN Administration SBP>175 or DBP>115 Hydrophilic Ointment 1 applic 10/10/18 17:53 Vaseline Lip Therapy TP Q2HR PRN Dry Lips Nicardipine HCl 50 mg/ Sodium 250 mls @ 25 mls/hr 10/11/18 13:00 10/13/18 08:03 Chloride IV 5 mg/hr TITR RUBI 25 mls/hr Titration Protocol 5 MG/HR Metronidazole 500 mg in 100 mls @ 100 mls/hr 10/11/18 15:00 10/14/18 05:01 Flagyl 500 Mg/100 Ml IV 100 mls/hr Q8HR RUBI Administration Protocol Fluconazole 200 mls @ 100 mls/hr 10/11/18 15:00 10/13/18 09:57 Diflucan IV 100 mls/hr Q24HR RUBI Administration Protocol Acyclovir 350 mg/ Sodium 107 mls @ 100 mls/hr 10/12/18 14:00 10/13/18 09:57 Chloride IV 100 mls/hr Q24HR RUBI Administration Penicillin G Potassium 12 mil. 250 mls @ 20.833 mls/hr 10/12/18 14:00 10/14/18 02:27 units/ Sodium Chloride IV 20.833 mls/hr Q12H RUBI Administration Sodium Chloride 172 meq/ 543 mls @ 25 mls/hr 10/13/18 11:15 10/13/18 11:25 Dextrose IV 10/14/18 08:58 25 mls/hr ONCE ONE Administration Sodium Chloride 100 mls @ 999 mls/hr 10/13/18 12:24 Nacl 0.9% IV CHON PRN Hypotension Lorazepam 1 mg 10/13/18 19:48 10/14/18 02:26 Ativan IV 1 mg Q4H PRN Administration agitation Multi-Ingred Cream/Lotion/Oil/Oint 1 applic 10/10/18 17:53 Artificial Tears Ophth Oint OU Q4HR PRN Dry Eye(s) Multivitamins 1 each 10/11/18 10:00 10/13/18 09:55 Theragran Tab PO 1 each DAILY RUBI Administration Pantoprazole Sodium 40 mg 10/12/18 11:00 10/13/18 23:39 Protonix IV 40 mg BID RUBI Administration Simple Syrup 15 ml 10/11/18 12:58 Simple Syrup FEEDTUBE PRN PRN Hypoglycemia Simple Syrup 30 ml 10/11/18 12:58 Simple Syrup FEEDTUBE PRN PRN Hypoglycemia Sodium Bicarbonate 325 mg 10/11/18 12:58 Sodium Bicarbonate FEEDTUBE PRN PRN For Clogged Feeding Tube Sodium Chloride 10 ml 10/10/18 22:00 10/13/18 23:40 Sodium Chloride Flush Syringe 10 Ml IV 10 ml BID RUBI Administration Sodium Chloride 10 ml 10/10/18 18:12 Sodium Chloride Flush Syringe 10 Ml IV PRN PRN LINE FLUSH
[2018-10-14] MEDS: CARDENE 50 MG in NACL 0.9% 250ML 230 ML IV SCH (08:15)
--- NOTE | 2018-10-14 08:27 | Progress Note ---
Assessment and Plan Assessment and plan: Acute encephalopathy Neurochecks. Neurology consulted LP ordered but not stable for procedure Acute resp failure s/p intubated in ED Pulm following Vent weaning per protocol HIV/AIDS Details unclear. No previous records available ID Physician following Acute Bilateral infarcts with edema Consulted Neurology Not given Aspirin because hematuria, hemoglobin drop SHRUTHI vs acute on CKD Worse Cr 5.2 after started on dialysis Baseline unknown Unable to place regan. Consulted and called Dr. Paula, urology and he came and placed suprapubic catheter Metabolic acidosis Started bicarb drip Thrombocytopenia, Plt down to 40 Anemia, hemoglobin drop Hgb 7.7 after 3 Units PRBC Stool occult blood positive Will consult GI Hyperkalemia, resolved Elevated LFT Hyperlipidemia Hypertensive urgency. Started on cardene drip History of stroke Elevated Troponin Likely due to kidney disease Prognosis guarded Full code status History Interval history: Patient with HIV/AIDS presented with altered mental status, then could not protect airway,intubated in ED Hemoglobin drop, transfused yesterday. Dialysis started fever Hospitalist Physical - Physical exam Narrative exam: GEN: Not in acute distress, HEENT: Normocephalic, atraumatic, Neck: supple, No JVD Lungs:Clear to auscultation, no wheeze Heart:S1 and S2 regular, no murmurs, rubs or gallop, Abd:soft, non tender, non distended, normal bowel sounds Ext: No edema, no clubbing or cyanosis Neuro:Intubated, sedated - Constitutional Vitals: Temp Pulse Resp BP Pulse Ox 99.4 F 143 H 24 162/100 100 10/14/18 07:36 10/14/18 08:06 10/14/18 07:36 10/14/18 08:06 10/14/18 08:06 Results - Labs CBC & Chem 7: 10/14/18 04:34 10/14/18 04:34 Labs: Laboratory Last Values WBC 8.2 K/mm3 (4.5-11.0) 10/14/18 04:34 RBC 2.47 M/mm3 (3.65-5.03) L 10/14/18 04:34 Hgb 7.7 gm/dl (11.8-15.2) L 10/14/18 04:34 Hct 21.9 % (35.5-45.6) L 10/14/18 04:34 MCV 89 fl (84-94) 10/14/18 04:34 MCH 31 pg (28-32) 10/14/18 04:34 MCHC 35 % (32-34) H 10/14/18 04:34 RDW 21.2 % (13.2-15.2) H 10/14/18 04:34 Plt Count 40 K/mm3 (140-440) L 10/14/18 04:34 Add Manual Diff Complete 10/13/18 03:40 Total Counted 100 10/13/18 03:40 Seg Neuts % (Manual) 93.0 % (40.0-70.0) H 10/13/18 03:40 Band Neutrophils % 2.0 % 10/13/18 03:40 Lymphocytes % (Manual) 0 % (13.4-35.0) L 10/13/18 03:40 Reactive Lymphs % (Man) 0 % 10/13/18 03:40 Monocytes % (Manual) 4.0 % (0.0-7.3) 10/13/18 03:40 Eosinophils % (Manual) 1.0 % (0.0-4.3) 10/13/18 03:40 Basophils % (Manual) 0 % (0.0-1.8) 10/13/18 03:40 Metamyelocytes % 0 % 10/13/18 03:40 Myelocytes % 0 % 10/13/18 03:40 Promyelocytes % 0 % 10/13/18 03:40 Blast Cells % 0 % 10/13/18 03:40 Nucleated RBC % 44.0 % (0.0-0.9) H 10/13/18 03:40 Seg Neutrophils # Man 10.7 K/mm3 (1.8-7.7) H 10/13/18 03:40 Band Neutrophils # 0.2 K/mm3 10/13/18 03:40 Lymphocytes # (Manual) 0.0 K/mm3 (1.2-5.4) L 10/13/18 03:40 Abs React Lymphs (Man) 0.0 K/mm3 10/13/18 03:40 Monocytes # (Manual) 0.5 K/mm3 (0.0-0.8) 10/13/18 03:40 Eosinophils # (Manual) 0.1 K/mm3 (0.0-0.4) 10/13/18 03:40 Basophils # (Manual) 0.0 K/mm3 (0.0-0.1) 10/13/18 03:40 Metamyelocytes # 0.0 K/mm3 10/13/18 03:40 Myelocytes # 0.0 K/mm3 10/13/18 03:40 Promyelocytes # 0.0 K/mm3 10/13/18 03:40 Blast Cells # 0.0 K/mm3 10/13/18 03:40 WBC Morphology Not Reportable 10/13/18 03:40 Hypersegmented Neuts Not Reportable 10/13/18 03:40 Hyposegmented Neuts Not Reportable 10/13/18 03:40 Hypogranular Neuts Not Reportable 10/13/18 03:40 Smudge Cells Not Reportable 10/13/18 03:40 Toxic Granulation Not Reportable 10/13/18 03:40 Toxic Vacuolation Not Reportable 10/13/18 03:40 Dohle Bodies Not Reportable 10/13/18 03:40 Pelger-Huet Anomaly Not Reportable 10/13/18 03:40 Kartik Rods Not Reportable 10/13/18 03:40 Platelet Estimate Appears decreased 10/13/18 03:40 Clumped Platelets Not Reportable 10/13/18 03:40 Plt Clumps, EDTA Not Reportable 10/13/18 03:40 Large Platelets Not Reportable 10/13/18 03:40 Giant Platelets Not Reportable 10/13/18 03:40 Platelet Satelliting Not Reportable 10/13/18 03:40 Plt Morphology Comment Not Reportable 10/13/18 03:40 RBC Morphology Not Reportable 10/13/18 03:40 Dimorphic RBCs Not Reportable 10/13/18 03:40 Polychromasia Few 10/13/18 03:40 Hypochromasia Few 10/13/18 03:40 Poikilocytosis 2+ 10/13/18 03:40 Anisocytosis 2+ 10/13/18 03:40 Microcytosis Few 10/13/18 03:40 Macrocytosis Not Reportable 10/13/18 03:40 Spherocytes Not Reportable 10/13/18 03:40 Pappenheimer Bodies Not Reportable 10/13/18 03:40 Sickle Cells Not Reportable 10/13/18 03:40 Target Cells Not Reportable 10/13/18 03:40 Tear Drop Cells Not Reportable 10/13/18 03:40 Ovalocytes Few 10/13/18 03:40 Helmet Cells Few 10/13/18 03:40 [place] Bodies Not Reportable 10/13/18 03:40 [place] Rings Not Reportable 10/13/18 03:40 [place] Cells 1+ 10/13/18 03:40 Bite Cells Not Reportable 10/13/18 03:40 Crenated Cell Not Reportable 10/13/18 03:40 Elliptocytes Not Reportable 10/13/18 03:40 Acanthocytes (Spur) Few 10/13/18 03:40 Rouleaux Not Reportable 10/13/18 03:40 Hemoglobin C Crystals Not Reportable 10/13/18 03:40 Schistocytes 1+ 10/13/18 03:40 Malaria parasites Not Reportable 10/13/18 03:40 Jv Bodies Not Reportable 10/13/18 03:40 Hem Pathologist Commnt No 10/13/18 03:40 PT 15.6 Sec. (12.2-14.9) H 10/13/18 03:40 INR 1.17 (0.87-1.13) H 10/13/18 03:40 APTT 27.9 Sec. (24.2-36.6) 10/10/18 15:02 Thrombin Time 16.9 Sec. (15.1-19.6) 10/10/18 15:02 POC ABG pH 7.522 (7.35-7.45) H 10/13/18 04:10 POC ABG pCO2 29.1 (35-45) L 10/13/18 04:10 POC ABG pO2 132 (80-105) H 10/13/18 04:10 POC ABG HCO3 23.9 10/13/18 04:10 POC ABG Total CO2 25 10/13/18 04:10 POC ABG O2 Sat 99 10/13/18 04:10 POC ABG Base Excess 1 10/13/18 04:10 FiO2 28 % 10/13/18 04:10 Sodium 145 mmol/L (137-145) 10/14/18 04:34 Potassium 3.6 mmol/L (3.6-5.0) 10/14/18 04:34 Chloride 102.7 mmol/L (98-107) 10/14/18 04:34 Carbon Dioxide 24 mmol/L (22-30) 10/14/18 04:34 Anion Gap 22 mmol/L 10/14/18 04:34 BUN 35 mg/dL (9-20) H 10/14/18 04:34 Creatinine 5.2 mg/dL (0.8-1.5) H 10/14/18 04:34 Estimated GFR 15 ml/min 10/14/18 04:34 BUN/Creatinine Ratio 7 % 10/14/18 04:34 Glucose 144 mg/dL (75-100) H 10/14/18 04:34 POC Glucose 274 (70-105) H 10/10/18 15:29 Osmolality 338 Mosm/kg 10/11/18 17:35 Lactic Acid 1.80 mmol/L (0.7-2.0) 10/12/18 05:59 Uric Acid 13.4 mg/dL (3.5-7.6) H 10/11/18 17:36 Calcium 8.6 mg/dL (8.4-10.2) 10/14/18 04:34 Phosphorus 5.10 mg/dL (2.5-4.5) H 10/12/18 04:57 Magnesium 2.50 mg/dL (1.7-2.3) H 10/12/18 04:57 Iron 147 ug/dL (49-181) 10/11/18 17:36 TIBC 236 mcg/dL (250-450) L 10/11/18 17:36 Ferritin 68122.0 ng/mL (13.0-400.0) H 10/11/18 17:35 Total Bilirubin 1.00 mg/dL (0.1-1.2) 10/13/18 03:40 Direct Bilirubin 0.4 mg/dL (0-0.2) H 10/10/18 15:42 Indirect Bilirubin 1.1 mg/dL 10/10/18 15:42 AST 367 units/L (5-40) H 10/13/18 03:40 ALT 238 units/L (7-56) H 10/13/18 03:40 Alkaline Phosphatase 134 units/L (35-129) H 10/13/18 03:40 Ammonia 50.0 umol/L (25-60) 10/10/18 15:42 Lactate Dehydrogenase 2342 units/L (91-180) H 10/10/18 16:54 Troponin T 0.272 ng/mL (0.00-0.029) H* 10/10/18 18:07 NT-Pro-B Natriuret Pep 85651 pg/mL (0-450) H 10/10/18 15:42 Total Protein 6.2 g/dL (6.3-8.2) L 10/13/18 03:40 Albumin 2.5 g/dL (3.9-5) L 10/13/18 03:40 Albumin/Globulin Ratio 0.7 % 10/13/18 03:40 Triglycerides 329 mg/dL (2-149) H 10/10/18 15:02 Cholesterol 234 mg/dL (50-199) H 10/10/18 15:02 LDL Cholesterol Direct 139 mg/dL (50-130) H 10/10/18 15:02 HDL Cholesterol 42 mg/dL (40-59) 10/10/18 15:02 Cholesterol/HDL Ratio 5.57 % 10/10/18 15:02 Urine Creatinine 30.8 mg/dL (0.1-20.0) H 10/13/18 04:43 Urine Sodium 106 mmol/L 10/13/18 04:43 Urine Total Protein 75 mg/dL (5-11.8) H 10/13/18 04:43 RPR Titer 1:32 10/11/18 17:37 RPR Reactive (Nonreactive) 10/11/18 17:37 Hepatitis A IgM Ab Non-reactive (NonReactive) 10/11/18 17:34 Hep Bs Antigen Non-reactive (Negative) 10/11/18 17:34 Hep B Core IgM Ab Non-reactive (NonReactive) 10/11/18 17:34 Hepatitis C Antibody Non-reactive (NonReactive) 10/11/18 17:34 Blood Type A POSITIVE 10/10/18 15:05 Antibody Screen Negative 10/10/18 15:05 Crossmatch See Detail 10/10/18 15:05 Nutrition/Malnutrition Assess - Dietary Evaluation Nutrition/Malnutrition Findings: Nutrition Notes Start: 10/11/18 11:14 Freq: Status: Active Protocol: Document 10/12/18 09:56 CP (Rec: 10/12/18 10:02 CP [id number]) Co-Sign 10/12/18 09:56 LP Nutrition Notes Initial or Follow up Reassessment Current Diagnosis Acute Kidney Injury Sepsis Respiratory Failure Other Pertinent Diagnosis Lactic acidosis, metabolic acidosis, HIV Current Diet Nepro at 45 mL/hr Labs/Tests K: 3.0 BUN: 102 Cr: 8.8 B PO4: 5.1 M.5 Pertinent Medications Reviewed Height 5 ft 9 in Weight 73.482 kg [place] Body Weight (kg) 72.72 BMI 23.9 Weight Status Appropriate Subjective/Other Information Nepro not infusing at time of visit 09:30. Pt undergoing ultrasound. Percent of energy/protein needs met: 0%/0% Burn Absent Trauma Absent #1 Nutrition Diagnosis Inadequate oral intake Etiology Sepsis, Resp failure As Evidenced by Signs and Symptoms Vent status Is patient on ventilator? Yes Is Patient Ambulatory and/or Out of Bed No REE-([facility]-confined to bed) 1953.384 Calculation Used for Recommendations [facility] Additional Notes Pro: 88-145g (1.2-2g/kg) Fluid: 1mL/kcal Nutrition Intervention Change Diet Order: Continue current Nutrition Support: Nepro at 45 mL/hr Water flush 100 mL q4h. Kcal 1,944 Protein (gm) 87 Fluid (mL) 1,159 Goal #1 TF to start Anticipated Discharge Needs: Unable to determine at this time Follow-Up By: 10/15/18 Additional Comments F/U: TF to start, renal labs
--- NOTE | 2018-10-14 09:56 | Gastroenterology Progress Note ---
Assessment and Plan - Patient Problems (1) Occult blood positive stool Current Visit: Yes Status: Acute Plan to address problem: FOBT positive but patient's hgb fairly stable with just gradual mild decline for the last 2 days after the transfusion of PRBC on 10/12/18. As long as no overt bleeding with major drop in Hgb then given patient's current medical status risks of elective endoscopy would outweigh benefits. Continue to monitor closely (2) Elevated LFTs Current Visit: Yes Status: Acute Plan to address problem: Continue to trend, likely multifactorial with infection, medication, ischemia etc all likely contributing. continue to avoid hepatotoxic medications and monitor LFT and PT/INR daily (I ordered for tomorrow's blood draw) Subjective Date of service: 10/14/18 Principal diagnosis: low plt Interval history: LFTs trending down yesterday, none today. Hgb trended down slightly but no overt bleeding. Pt remains critically ill intubated Objective - Constitutional Vitals: Temp Pulse Resp BP Pulse Ox 99.4 F 143 H 24 162/100 100 10/14/18 08:00 10/14/18 08:06 10/14/18 07:36 10/14/18 08:06 10/14/18 08:06 - Respiratory Respiratory: bilateral: rhonchi - Cardiovascular Rhythm: other (tachy) - Gastrointestinal General gastrointestinal: Present: soft - Labs CBC & Chem 7: 10/14/18 04:34 10/14/18 04:34 Labs: Laboratory Results - last 24 hr 10/14/18 10/14/18 04:34 04:34 WBC 8.2 RBC 2.47 L Hgb 7.7 L Hct 21.9 L MCV 89 MCH 31 MCHC 35 H RDW 21.2 H Plt Count 40 L Sodium 145 Potassium 3.6 Chloride 102.7 Carbon Dioxide 24 Anion Gap 22 BUN 35 H Creatinine 5.2 H Estimated GFR 15 BUN/Creatinine Ratio 7 Glucose 144 H Calcium 8.6
[2018-10-14] MEDS: PROTONIX IV SCH ×2 (10:39→21:59)
[2018-10-14] MEDS: NACL 0.9% IV SCH (10:39)
[2018-10-14] MEDS: MEPRON PO SCH ×2 (10:39→21:59)
[2018-10-14] MEDS: ZOVIRAX IV SCH (10:39)
[2018-10-14] MEDS: THERAGRAN Tab PO SCH (10:39)
[2018-10-14] MEDS: NORVASC PO SCH (10:39)
[2018-10-14] MEDS: DIFLUCAN 200 ML IV SCH (10:40)
[2018-10-14] MEDS: SODIUM CHLORIDE FLUSH SYRINGE 10 ML IV SCH ×2 (11:00→22:01)
--- NOTE | 2018-10-14 11:38 | Progress Note ---
Assessment and Plan Impression * Acute renal failure. Most likely secondary to ATN * Respiratory failure * Encephalopathy * Sepsis * Anemia * Thrombocytopenia * HIV disease Recommendations * Patient had uneventful hemodialysis yesterday * He remains oliguric. He most likely has ATN * No urgent indication for dialysis today. Reassess need for dialysis tomorrow * Avoid nephrotoxins * Adjust meds for GFR less than 10 * Monitor fluid status and electrolytes closely * Consultants notes appreciated Subjective Date of service: 10/14/18 Principal diagnosis: low plt Interval history: Patient remains on the ventilator. On 28% FiO2. Unresponsive. Currently on a Cardene drip. Objective - Vital Signs Vital signs: Vital Signs - 12hr 10/13/18 10/14/18 10/14/18 23:45 00:00 00:15 Temperature Pulse Rate 118 H 115 H 142 H Pulse Rate [ From Monitor] Respiratory 13 17 26 H Rate Blood Pressure 158/102 164/105 158/105 O2 Sat by Pulse 100 100 100 Oximetry 10/14/18 10/14/18 10/14/18 00:20 00:30 00:50 Temperature Pulse Rate 105 H 121 H 115 H Pulse Rate [ 105 H From Monitor] Respiratory 22 21 20 Rate Blood Pressure 144/99 O2 Sat by Pulse 100 100 100 Oximetry 10/14/18 10/14/18 10/14/18 01:00 01:15 01:30 Temperature Pulse Rate 116 H 148 H 121 H Pulse Rate [ 105 H From Monitor] Respiratory 17 39 H 19 Rate Blood Pressure 155/100 150/102 154/100 O2 Sat by Pulse 100 100 100 Oximetry 10/14/18 10/14/18 10/14/18 01:45 02:00 02:15 Temperature Pulse Rate 115 H 136 H 121 H Pulse Rate [ From Monitor] Respiratory 19 24 22 Rate Blood Pressure 145/98 184/125 157/102 O2 Sat by Pulse 100 100 100 Oximetry 10/14/18 10/14/18 10/14/18 02:30 02:45 03:00 Temperature Pulse Rate 113 H 114 H 120 H Pulse Rate [ 105 H From Monitor] Respiratory 21 21 17 Rate Blood Pressure 147/96 149/98 156/104 O2 Sat by Pulse 100 100 100 Oximetry 10/14/18 10/14/18 10/14/18 03:15 03:30 03:45 Temperature 99.4 F Pulse Rate 118 H 118 H 111 H Pulse Rate [ From Monitor] Respiratory 21 21 21 Rate Blood Pressure 160/106 158/106 160/102 O2 Sat by Pulse 100 100 100 Oximetry 10/14/18 10/14/18 10/14/18 04:00 04:15 04:30 Temperature Pulse Rate 117 H 119 H 118 H Pulse Rate [ From Monitor] Respiratory 20 21 22 Rate Blood Pressure 157/107 158/104 159/101 O2 Sat by Pulse 100 100 100 Oximetry 10/14/18 10/14/18 10/14/18 04:45 05:00 05:15 Temperature Pulse Rate 121 H 116 H 126 H Pulse Rate [ 105 H From Monitor] Respiratory 22 21 17 Rate Blood Pressure 155/106 155/106 172/111 O2 Sat by Pulse 100 100 100 Oximetry 10/14/18 10/14/18 10/14/18 05:30 05:45 06:00 Temperature Pulse Rate 124 H 138 H 127 H Pulse Rate [ From Monitor] Respiratory 25 H 30 H 23 Rate Blood Pressure 164/105 183/117 170/111 O2 Sat by Pulse 100 100 100 Oximetry 10/14/18 10/14/18 10/14/18 06:15 06:30 06:45 Temperature Pulse Rate 122 H 146 H 118 H Pulse Rate [ From Monitor] Respiratory 22 30 H 22 Rate Blood Pressure 160/106 197/128 141/95 O2 Sat by Pulse 100 100 100 Oximetry 10/14/18 10/14/18 10/14/18 07:01 07:15 07:30 Temperature Pulse Rate 118 H 140 H 121 H Pulse Rate [ From Monitor] Respiratory 19 34 H 21 Rate Blood Pressure 146/95 146/95 139/94 O2 Sat by Pulse 100 100 100 Oximetry 10/14/18 10/14/18 10/14/18 07:36 07:45 08:00 Temperature 99.4 F 99.4 F Pulse Rate 140 H 135 H Pulse Rate [ 126 H From Monitor] Respiratory 24 16 19 Rate Blood Pressure 139/94 162/100 O2 Sat by Pulse 100 100 100 Oximetry 10/14/18 10/14/18 10/14/18 08:06 08:15 08:30 Temperature Pulse Rate 143 H 131 H 127 H Pulse Rate [ From Monitor] Respiratory 24 27 H Rate Blood Pressure 162/100 139/86 134/82 O2 Sat by Pulse 100 100 100 Oximetry 10/14/18 10/14/18 10/14/18 08:45 09:00 09:15 Temperature Pulse Rate 124 H 123 H 124 H Pulse Rate [ From Monitor] Respiratory 25 H 24 27 H Rate Blood Pressure 129/80 128/79 129/79 O2 Sat by Pulse 100 100 100 Oximetry 10/14/18 10/14/18 10/14/18 09:30 09:45 10:00 Temperature Pulse Rate 127 H 135 H 126 H Pulse Rate [ From Monitor] Respiratory 26 H 29 H Rate Blood Pressure 134/86 134/86 O2 Sat by Pulse 100 100 Oximetry 10/14/18 10/14/18 10/14/18 10:01 10:15 10:31 Temperature Pulse Rate 140 H 127 H 139 H Pulse Rate [ From Monitor] Respiratory 21 13 19 Rate Blood Pressure 178/114 178/114 175/109 O2 Sat by Pulse 100 100 100 Oximetry 10/14/18 10/14/18 10/14/18 10:39 10:45 11:00 Temperature Pulse Rate 123 H 126 H 136 H Pulse Rate [ From Monitor] Respiratory 23 38 H Rate Blood Pressure 175/109 134/90 140/92 O2 Sat by Pulse 100 100 Oximetry 10/14/18 11:15 Temperature Pulse Rate 123 H Pulse Rate [ From Monitor] Respiratory 18 Rate Blood Pressure 129/76 O2 Sat by Pulse 100 Oximetry - General Appearance General appearance: well-developed, well-nourished, appears stated age, intubated EENT: PERRL, mucous membranes moist Neck: no JVD, no thyromegaly Respiratory: Present: Clear to Ascultation Cardiology: regular, normal heart rate Gastrointestinal: normoactive bowel sounds, other (suprapubic catheter in place) Integumentary: other (no edema. Right femoral Vas-Cath in place) - Lab 10/14/18 04:34 10/14/18 04:34 Most recent lab results Calcium 8.6 mg/dL (8.4-10.2) 10/14/18 04:34 Phosphorus 5.10 mg/dL (2.5-4.5) H 10/12/18 04:57 Magnesium 2.50 mg/dL (1.7-2.3) H 10/12/18 04:57 Urine Creatinine 30.8 mg/dL (0.1-20.0) H 10/13/18 04:43 Urine Sodium 106 mmol/L 10/13/18 04:43 Urine Total Protein 75 mg/dL (5-11.8) H 10/13/18 04:43 Medications & Allergies - Medications Allergies/Adverse Reactions: Allergies Sulfa (Sulfonamide Antibiotics) Allergy (Verified 10/10/18 16:54) Unknown Home Medications: Home Medications Medication Instructions Recorded Confirmed Last Taken Type Acetaminophen [Tylenol] 1,000 mg PO Q6HR 10/10/18 10/10/18 Unknown History Amlodipine Besylate [Norvasc] 10 mg PO QDAY 10/10/18 10/10/18 Unknown History Aspirin [Adult Aspirin] 81 mg PO DAILY 10/10/18 10/10/18 Unknown History Atorvastatin [Lipitor Tab] 80 mg PO DAILY 10/10/18 10/10/18 Unknown History Losartan [Cozaar] 100 mg PO QDAY 10/10/18 10/10/18 Unknown History Multivitamin [Multiple Vitamins] 1 each PO DAILY 10/10/18 10/10/18 Unknown History hydroCHLOROthiazide [HCTZ] 25 mg PO QDAY 10/10/18 10/10/18 Unknown History Active Medications: Generic Name Dose Route Start Last Admin Trade Name Freq PRN Reason Stop Dose Admin Albuterol 2.5 mg 10/10/18 18:12 Proventil IH Q3HRT PRN Shortness Of Breath Amlodipine Besylate 10 mg 10/11/18 10:00 10/14/18 10:39 Norvasc PO 10 mg QDAY RUBI Administration Lipase/Protease/Amylase 1 each 10/11/18 12:58 Pancreaze 10,500 Unit FEEDTUBE PRN PRN For Clogged Feeding Tube Atovaquone 750 mg 10/11/18 15:00 10/14/18 10:39 Mepron PO 750 mg BID RUBI Administration Haloperidol Lactate 5 mg 10/13/18 19:45 10/14/18 02:27 Haldol IV 5 mg Q6H PRN Administration Agitation Hydralazine HCl 10 mg 10/12/18 15:50 10/12/18 16:53 Apresoline IV 10 mg Q4HR PRN Administration SBP>175 or DBP>115 Hydrophilic Ointment 1 applic 10/10/18 17:53 Vaseline Lip Therapy TP Q2HR PRN Dry Lips Nicardipine HCl 50 mg/ Sodium 250 mls @ 25 mls/hr 10/11/18 13:00 10/14/18 08:15 Chloride IV 5 mg/hr TITR RUBI 25 mls/hr Administration Protocol 5 MG/HR Metronidazole 500 mg in 100 mls @ 100 mls/hr 10/11/18 15:00 10/14/18 05:01 Flagyl 500 Mg/100 Ml IV 100 mls/hr Q8HR RUBI Administration Protocol Fluconazole 200 mls @ 100 mls/hr 10/11/18 15:00 10/14/18 10:40 Diflucan IV 100 mls/hr Q24HR RUBI Administration Protocol Acyclovir 350 mg/ Sodium 107 mls @ 100 mls/hr 10/12/18 14:00 10/14/18 10:39 Chloride IV 100 mls/hr Q24HR RUBI Administration Penicillin G Potassium 12 mil. 250 mls @ 20.833 mls/hr 10/12/18 14:00 10/14/18 02:27 units/ Sodium Chloride IV 20.833 mls/hr Q12H RUBI Administration Sodium Chloride 100 mls @ 999 mls/hr 10/13/18 12:24 Nacl 0.9% IV CHON PRN Hypotension Lorazepam 1 mg 10/13/18 19:48 10/14/18 08:14 Ativan IV 1 mg Q4H PRN Administration agitation Multi-Ingred Cream/Lotion/Oil/Oint 1 applic 10/10/18 17:53 Artificial Tears Ophth Oint OU Q4HR PRN Dry Eye(s) Multivitamins 1 each 10/11/18 10:00 10/14/18 10:39 Theragran Tab PO 1 each DAILY RUBI Administration Pantoprazole Sodium 40 mg 10/12/18 11:00 10/14/18 10:39 Protonix IV 40 mg BID RUBI Administration Simple Syrup 15 ml 10/11/18 12:58 Simple Syrup FEEDTUBE PRN PRN Hypoglycemia Simple Syrup 30 ml 10/11/18 12:58 Simple Syrup FEEDTUBE PRN PRN Hypoglycemia Sodium Bicarbonate 325 mg 10/11/18 12:58 Sodium Bicarbonate FEEDTUBE PRN PRN For Clogged Feeding Tube Sodium Chloride 10 ml 10/10/18 22:00 10/14/18 11:00 Sodium Chloride Flush Syringe 10 Ml IV 10 ml BID RUBI Administration Sodium Chloride 10 ml 02/27/19 18:12 Sodium Chloride Flush Syringe 10 Ml IV PRN PRN LINE FLUSH
--- NOTE | 2018-10-14 12:58 | Progress Note ---
Assessment and Plan 43 y/o male with acute encephalopathy, acute respiratory failure, and presumed acute vs acute on chronic renal failure. 1. COntinue broad spectrum abx therapy 2. Stopped sedation, only PRN's for sedation 3. Continue suprapubic catheter 4. Neuro made no mention of increasing Na to help with mental state so will hold on hypertonic saline at this time. 5. Continue vent support. Will attempt daily SBT now that off sedation 6. Await new heme recs. maybe 123 was incorrect for platelets. Transfuse Hemoglobin if less than 7 7. Overall prognosis remains extremely guarded to poor 8. Continue feeds and titrate to goal 9. Discussed with mother over the phone the severity of current disease state. She lives in [place] and is attempting to get here. She is the primary decision maker for the patient as he is not and has no children. CCT 31 minutes. Subjective Date of service: 10/14/18 Principal diagnosis: low plt Interval history: No acute events. Platelets have dropped again. h/h is slightly lower but not at a point to transfuse. Per nursing and RT, appropriate mentally but I could not get him to wake up or follow commands for me (Time is 12:53). No family present at bedside. White count down to 8.2 Objective Vital Signs - 12hr 10/14/18 10/14/18 10/14/18 01:00 01:15 01:30 Temperature Pulse Rate 116 H 148 H 121 H Pulse Rate [ 105 H From Monitor] Respiratory 17 39 H 19 Rate Blood Pressure 155/100 150/102 154/100 O2 Sat by Pulse 100 100 100 Oximetry 10/14/18 10/14/18 10/14/18 01:45 02:00 02:15 Temperature Pulse Rate 115 H 136 H 121 H Pulse Rate [ From Monitor] Respiratory 19 24 22 Rate Blood Pressure 145/98 184/125 157/102 O2 Sat by Pulse 100 100 100 Oximetry 10/14/18 10/14/18 10/14/18 02:30 02:45 03:00 Temperature Pulse Rate 113 H 114 H 120 H Pulse Rate [ 105 H From Monitor] Respiratory 21 21 17 Rate Blood Pressure 147/96 149/98 156/104 O2 Sat by Pulse 100 100 100 Oximetry 10/14/18 10/14/18 10/14/18 03:15 03:30 03:45 Temperature 99.4 F Pulse Rate 118 H 118 H 111 H Pulse Rate [ From Monitor] Respiratory 21 21 21 Rate Blood Pressure 160/106 158/106 160/102 O2 Sat by Pulse 100 100 100 Oximetry 10/14/18 10/14/18 10/14/18 04:00 04:15 04:30 Temperature Pulse Rate 117 H 119 H 118 H Pulse Rate [ From Monitor] Respiratory 20 21 22 Rate Blood Pressure 157/107 158/104 159/101 O2 Sat by Pulse 100 100 100 Oximetry 10/14/18 10/14/18 10/14/18 04:45 05:00 05:15 Temperature Pulse Rate 121 H 116 H 126 H Pulse Rate [ 105 H From Monitor] Respiratory 22 21 17 Rate Blood Pressure 155/106 155/106 172/111 O2 Sat by Pulse 100 100 100 Oximetry 10/14/18 10/14/18 10/14/18 05:30 05:45 06:00 Temperature Pulse Rate 124 H 138 H 127 H Pulse Rate [ From Monitor] Respiratory 25 H 30 H 23 Rate Blood Pressure 164/105 183/117 170/111 O2 Sat by Pulse 100 100 100 Oximetry 10/14/18 10/14/18 10/14/18 06:15 06:30 06:45 Temperature Pulse Rate 122 H 146 H 118 H Pulse Rate [ From Monitor] Respiratory 22 30 H 22 Rate Blood Pressure 160/106 197/128 141/95 O2 Sat by Pulse 100 100 100 Oximetry 10/14/18 10/14/18 10/14/18 07:01 07:15 07:30 Temperature Pulse Rate 118 H 140 H 121 H Pulse Rate [ From Monitor] Respiratory 19 34 H 21 Rate Blood Pressure 146/95 146/95 139/94 O2 Sat by Pulse 100 100 100 Oximetry 10/14/18 10/14/18 10/14/18 07:36 07:45 08:00 Temperature 99.4 F 99.4 F Pulse Rate 140 H 135 H Pulse Rate [ 126 H From Monitor] Respiratory 24 16 19 Rate Blood Pressure 139/94 162/100 O2 Sat by Pulse 100 100 100 Oximetry 10/14/18 10/14/18 10/14/18 08:06 08:15 08:30 Temperature Pulse Rate 143 H 131 H 127 H Pulse Rate [ From Monitor] Respiratory 24 27 H Rate Blood Pressure 162/100 139/86 134/82 O2 Sat by Pulse 100 100 100 Oximetry 0310/14/18 10/14/18 08:45 09:00 09:15 Temperature Pulse Rate 124 H 123 H 124 H Pulse Rate [ From Monitor] Respiratory 25 H 24 27 H Rate Blood Pressure 129/80 128/79 129/79 O2 Sat by Pulse 100 100 100 Oximetry 10/14/18 10/14/18 10/14/18 09:30 09:45 10:00 Temperature Pulse Rate 127 H 135 H 126 H Pulse Rate [ From Monitor] Respiratory 26 H 29 H Rate Blood Pressure 134/86 134/86 O2 Sat by Pulse 100 100 Oximetry 10/14/18 10/14/18 10/14/18 10:01 10:15 10:31 Temperature Pulse Rate 140 H 127 H 139 H Pulse Rate [ From Monitor] Respiratory 21 13 19 Rate Blood Pressure 178/114 178/114 175/109 O2 Sat by Pulse 100 100 100 Oximetry 10/14/18 10/14/18 10/14/18 10:39 10:45 11:00 Temperature Pulse Rate 123 H 126 H 136 H Pulse Rate [ From Monitor] Respiratory 23 38 H Rate Blood Pressure 175/109 134/90 140/92 O2 Sat by Pulse 100 100 Oximetry 10/14/18 10/14/18 10/14/18 11:15 11:53 12:50 Temperature Pulse Rate 123 H 128 H 123 H Pulse Rate [ From Monitor] Respiratory 18 25 H Rate Blood Pressure 129/76 140/82 124/78 O2 Sat by Pulse 100 100 100 Oximetry Constitutional: no acute distress Eyes: non-icteric ENT: other (orally intubated, not on sedation, critically ill on vent) Neck: supple Effort: mildly labored Ascultation: Bilateral: clear, diminished breath sounds Percussion: Bilateral: not dull Cardiovascular: regular rate and rhythm (sinus tach) Gastrointestinal: normoactive bowel sounds, other (now with suprapubic catheter) Extremities: no cyanosis, no edema Neurologic: unable to assess CBC and BMP: 10/14/18 04:34 10/14/18 04:34 ABG, PT/INR, D-dimer: ABG POC ABG pH 7.522 (7.35-7.45) H 10/13/18 04:10 POC ABG pCO2 29.1 (35-45) L 10/13/18 04:10 POC ABG pO2 132 (80-105) H 10/13/18 04:10 POC ABG HCO3 23.9 10/13/18 04:10 POC ABG Total CO2 25 10/13/18 04:10 POC ABG O2 Sat 99 10/13/18 04:10 PT/INR, D-dimer PT 15.6 Sec. (12.2-14.9) H 10/13/18 03:40 INR 1.17 (0.87-1.13) H 10/13/18 03:40 Abnormal lab findings: Abnormal Labs 10/10/18 10/10/18 10/10/18 15:02 15:02 15:02 WBC RBC 2.38 L Hgb 8.1 L Hct 24.9 L MCV 105 H MCH 34 H MCHC RDW 21.4 H Plt Count 20 L Seg Neuts % (Manual) 84.0 H Lymphocytes % (Manual) 8.0 L Nucleated RBC % Seg Neutrophils # Man 7.8 H Lymphocytes # (Manual) 0.7 L PT 16.2 H INR 1.22 H POC ABG pH POC ABG pCO2 POC ABG pO2 Sodium 136 L Potassium Chloride 88.2 L Carbon Dioxide 8 L* BUN 70 H Creatinine 5.6 H Glucose 331 H POC Glucose Lactic Acid Uric Acid Calcium Phosphorus Magnesium TIBC Ferritin Total Bilirubin Direct Bilirubin AST ALT Alkaline Phosphatase Lactate Dehydrogenase Troponin T 0.298 H* NT-Pro-B Natriuret Pep Total Protein Albumin Triglycerides 329 H Cholesterol 234 H LDL Cholesterol Direct 139 H Vitamin B12 Urine Creatinine Urine Total Protein Crossmatch 10/10/18 10/10/18 10/10/18 15:05 15:29 15:42 WBC RBC Hgb Hct MCV MCH MCHC RDW Plt Count Seg Neuts % (Manual) Lymphocytes % (Manual) Nucleated RBC % Seg Neutrophils # Man Lymphocytes # (Manual) PT INR POC ABG pH POC ABG pCO2 POC ABG pO2 Sodium Potassium Chloride Carbon Dioxide BUN Creatinine Glucose POC Glucose 274 H Lactic Acid 17.90 H* Uric Acid Calcium Phosphorus Magnesium TIBC Ferritin Total Bilirubin Direct Bilirubin AST ALT Alkaline Phosphatase Lactate Dehydrogenase Troponin T NT-Pro-B Natriuret Pep Total Protein Albumin Triglycerides Cholesterol LDL Cholesterol Direct Vitamin B12 Urine Creatinine Urine Total Protein Crossmatch See Detail 10/10/18 10/10/18 10/10/18 15:42 16:22 16:54 WBC RBC Hgb Hct MCV MCH MCHC RDW Plt Count Seg Neuts % (Manual) Lymphocytes % (Manual) Nucleated RBC % Seg Neutrophils # Man Lymphocytes # (Manual) PT INR POC ABG pH POC ABG pCO2 9.0 L POC ABG pO2 140 H Sodium Potassium Chloride Carbon Dioxide BUN Creatinine Glucose POC Glucose Lactic Acid Uric Acid Calcium Phosphorus Magnesium TIBC Ferritin Total Bilirubin 1.50 H Direct Bilirubin 0.4 H AST 105 H ALT Alkaline Phosphatase Lactate Dehydrogenase 2342 H Troponin T NT-Pro-B Natriuret Pep 14121 H Total Protein 9.2 H Albumin Triglycerides Cholesterol LDL Cholesterol Direct Vitamin B12 Urine Creatinine Urine Total Protein Crossmatch 10/10/18 10/10/18 10/10/18 17:08 18:07 18:24 WBC RBC Hgb Hct MCV MCH MCHC RDW Plt Count Seg Neuts % (Manual) Lymphocytes % (Manual) Nucleated RBC % Seg Neutrophils # Man Lymphocytes # (Manual) PT INR POC ABG pH 7.172 L POC ABG pCO2 POC ABG pO2 533 H Sodium Potassium Chloride Carbon Dioxide BUN Creatinine Glucose POC Glucose Lactic Acid 14.80 H* Uric Acid Calcium Phosphorus Magnesium TIBC Ferritin Total Bilirubin Direct Bilirubin AST ALT Alkaline Phosphatase Lactate Dehydrogenase Troponin T 0.272 H* NT-Pro-B Natriuret Pep Total Protein Albumin Triglycerides Cholesterol LDL Cholesterol Direct Vitamin B12 Urine Creatinine Urine Total Protein Crossmatch 10/10/18 10/10/18 10/10/18 19:58 20:54 20:54 WBC RBC Hgb Hct MCV MCH MCHC RDW Plt Count Seg Neuts % (Manual) Lymphocytes % (Manual) Nucleated RBC % Seg Neutrophils # Man Lymphocytes # (Manual) PT INR POC ABG pH POC ABG pCO2 POC ABG pO2 Sodium Potassium Chloride Carbon Dioxide BUN Creatinine Glucose POC Glucose Lactic Acid 11.50 H* 2.90 H* 2.90 H* Uric Acid Calcium Phosphorus Magnesium TIBC Ferritin Total Bilirubin Direct Bilirubin AST ALT Alkaline Phosphatase Lactate Dehydrogenase Troponin T NT-Pro-B Natriuret Pep Total Protein Albumin Triglycerides Cholesterol LDL Cholesterol Direct Vitamin B12 Urine Creatinine Urine Total Protein Crossmatch 10/10/18 10/10/18 10/11/18 22:43 23:55 02:44 WBC RBC Hgb Hct MCV MCH MCHC RDW Plt Count Seg Neuts % (Manual) Lymphocytes % (Manual) Nucleated RBC % Seg Neutrophils # Man Lymphocytes # (Manual) PT INR POC ABG pH POC ABG pCO2 25.9 L POC ABG pO2 192 H Sodium Potassium Chloride Carbon Dioxide BUN Creatinine Glucose POC Glucose Lactic Acid 4.60 H* 5.40 H* Uric Acid Calcium Phosphorus Magnesium TIBC Ferritin Total Bilirubin Direct Bilirubin AST ALT Alkaline Phosphatase Lactate Dehydrogenase Troponin T NT-Pro-B Natriuret Pep Total Protein Albumin Triglycerides Cholesterol LDL Cholesterol Direct Vitamin B12 Urine Creatinine Urine Total Protein Crossmatch 10/11/18 10/11/18 10/11/18 02:55 02:55 03:34 WBC RBC 2.35 L Hgb 7.7 L Hct 22.9 L MCV 98 H MCH 33 H MCHC RDW 19.9 H Plt Count 23 L Seg Neuts % (Manual) 75.0 H Lymphocytes % (Manual) 11.0 L Nucleated RBC % Seg Neutrophils # Man Lymphocytes # (Manual) 1.0 L PT INR POC ABG pH POC ABG pCO2 POC ABG pO2 Sodium Potassium 5.3 H D Chloride Carbon Dioxide 14 L BUN 74 H Creatinine 5.4 H Glucose 126 H POC Glucose Lactic Acid 5.30 H* Uric Acid Calcium 7.8 L D Phosphorus Magnesium TIBC Ferritin Total Bilirubin 1.90 H Direct Bilirubin AST 306 H ALT 89 H Alkaline Phosphatase 246 H Lactate Dehydrogenase Troponin T NT-Pro-B Natriuret Pep Total Protein Albumin 3.4 L Triglycerides Cholesterol LDL Cholesterol Direct Vitamin B12 Urine Creatinine Urine Total Protein Crossmatch 10/11/18 10/11/18 10/11/18 03:34 05:47 05:48 WBC RBC Hgb Hct MCV MCH MCHC RDW Plt Count Seg Neuts % (Manual) Lymphocytes % (Manual) Nucleated RBC % Seg Neutrophils # Man Lymphocytes # (Manual) PT INR POC ABG pH 7.491 H POC ABG pCO2 24.9 L POC ABG pO2 166 H Sodium Potassium 5.2 H Chloride Carbon Dioxide 16 L BUN 80 H Creatinine 5.5 H Glucose 63 L POC Glucose Lactic Acid 3.80 H* Uric Acid Calcium 7.9 L Phosphorus Magnesium TIBC Ferritin Total Bilirubin Direct Bilirubin AST ALT Alkaline Phosphatase Lactate Dehydrogenase Troponin T NT-Pro-B Natriuret Pep Total Protein Albumin Triglycerides Cholesterol LDL Cholesterol Direct Vitamin B12 Urine Creatinine Urine Total Protein Crossmatch 10/11/18 10/11/18 10/11/18 09:56 17:34 17:34 WBC RBC Hgb Hct MCV MCH MCHC RDW Plt Count Seg Neuts % (Manual) Lymphocytes % (Manual) Nucleated RBC % Seg Neutrophils # Man Lymphocytes # (Manual) PT INR POC ABG pH POC ABG pCO2 POC ABG pO2 Sodium Potassium 3.4 L D Chloride Carbon Dioxide 17 L BUN 97 H Creatinine 7.3 H Glucose 135 H POC Glucose Lactic Acid 2.60 H* 2.30 H* Uric Acid Calcium 7.9 L Phosphorus 5.80 H Magnesium 2.70 H TIBC Ferritin Total Bilirubin Direct Bilirubin AST ALT Alkaline Phosphatase Lactate Dehydrogenase Troponin T NT-Pro-B Natriuret Pep Total Protein Albumin Triglycerides Cholesterol LDL Cholesterol Direct Vitamin B12 Urine Creatinine Urine Total Protein Crossmatch 10/11/18 10/11/18 10/11/18 17:35 17:36 19:21 WBC RBC Hgb Hct MCV MCH MCHC RDW Plt Count Seg Neuts % (Manual) Lymphocytes % (Manual) Nucleated RBC % Seg Neutrophils # Man Lymphocytes # (Manual) PT INR POC ABG pH POC ABG pCO2 POC ABG pO2 Sodium Potassium Chloride Carbon Dioxide BUN Creatinine Glucose POC Glucose Lactic Acid 2.60 H* Uric Acid 13.4 H Calcium Phosphorus Magnesium TIBC 236 L Ferritin 79333.0 H Total Bilirubin Direct Bilirubin AST ALT Alkaline Phosphatase Lactate Dehydrogenase Troponin T NT-Pro-B Natriuret Pep Total Protein Albumin Triglycerides Cholesterol LDL Cholesterol Direct Vitamin B12 Urine Creatinine Urine Total Protein Crossmatch 10/11/18 10/11/18 10/11/18 20:08 21:32 23:01 WBC RBC Hgb Hct MCV MCH MCHC RDW Plt Count Seg Neuts % (Manual) Lymphocytes % (Manual) Nucleated RBC % Seg Neutrophils # Man Lymphocytes # (Manual) PT INR POC ABG pH POC ABG pCO2 POC ABG pO2 Sodium Potassium Chloride Carbon Dioxide 16 L BUN 99 H Creatinine 8.1 H Glucose 147 H POC Glucose Lactic Acid 2.60 H* 3.20 H* Uric Acid Calcium 7.7 L Phosphorus Magnesium 2.60 H TIBC Ferritin Total Bilirubin Direct Bilirubin AST ALT Alkaline Phosphatase Lactate Dehydrogenase Troponin T NT-Pro-B Natriuret Pep Total Protein Albumin Triglycerides Cholesterol LDL Cholesterol Direct Vitamin B12 Urine Creatinine Urine Total Protein Crossmatch 10/12/18 10/12/18 10/12/18 04:29 04:57 04:57 WBC 15.0 H RBC 1.75 L Hgb 5.6 L* Hct 16.7 L* D MCV 95 H MCH MCHC RDW 20.7 H Plt Count 49 L D Seg Neuts % (Manual) 90.0 H Lymphocytes % (Manual) 4.0 L Nucleated RBC % 12.0 H Seg Neutrophils # Man 12.3 H Lymphocytes # (Manual) 0.5 L PT INR POC ABG pH 7.493 H POC ABG pCO2 23.1 L POC ABG pO2 176 H Sodium Potassium 3.0 L D Chloride Carbon Dioxide 15 L BUN 102 H Creatinine 8.8 H Glucose 110 H POC Glucose Lactic Acid Uric Acid Calcium 7.6 L Phosphorus 5.10 H Magnesium 2.50 H TIBC Ferritin Total Bilirubin Direct Bilirubin AST 667 H ALT 298 H Alkaline Phosphatase 154 H Lactate Dehydrogenase Troponin T NT-Pro-B Natriuret Pep Total Protein Albumin 2.8 L Triglycerides Cholesterol LDL Cholesterol Direct Vitamin B12 Urine Creatinine Urine Total Protein Crossmatch 10/12/18 10/12/18 10/12/18 04:57 06:43 14:05 WBC 14.0 H RBC 2.76 L Hgb 5.8 L* 8.7 L Hct 17.2 L* 25.1 L D MCV MCH MCHC 35 H RDW 19.0 H Plt Count 53 L Seg Neuts % (Manual) Lymphocytes % (Manual) 5.0 L Nucleated RBC % 40.0 H Seg Neutrophils # Man 9.0 H Lymphocytes # (Manual) 0.7 L PT 18.0 H INR 1.39 H POC ABG pH POC ABG pCO2 POC ABG pO2 Sodium Potassium Chloride Carbon Dioxide BUN Creatinine Glucose POC Glucose Lactic Acid Uric Acid Calcium Phosphorus Magnesium TIBC Ferritin Total Bilirubin Direct Bilirubin AST ALT Alkaline Phosphatase Lactate Dehydrogenase Troponin T NT-Pro-B Natriuret Pep Total Protein Albumin Triglycerides Cholesterol LDL Cholesterol Direct Vitamin B12 Urine Creatinine Urine Total Protein Crossmatch 10/13/18 10/13/18 10/13/18 03:40 03:40 03:40 WBC 11.5 H RBC 2.58 L Hgb 8.2 L Hct 22.9 L MCV MCH MCHC 36 H RDW 19.5 H Plt Count 123 L D Seg Neuts % (Manual) 93.0 H Lymphocytes % (Manual) 0 L Nucleated RBC % 44.0 H Seg Neutrophils # Man 10.7 H Lymphocytes # (Manual) 0.0 L PT 15.6 H INR 1.17 H POC ABG pH POC ABG pCO2 POC ABG pO2 Sodium Potassium 3.3 L Chloride Carbon Dioxide 21 L BUN 51 H Creatinine 5.7 H Glucose 140 H POC Glucose Lactic Acid Uric Acid Calcium 7.9 L Phosphorus Magnesium TIBC Ferritin Total Bilirubin Direct Bilirubin AST 367 H ALT 238 H Alkaline Phosphatase 134 H Lactate Dehydrogenase Troponin T NT-Pro-B Natriuret Pep Total Protein 6.2 L Albumin 2.5 L Triglycerides Cholesterol LDL Cholesterol Direct Vitamin B12 Urine Creatinine Urine Total Protein Crossmatch 10/13/18 10/13/18 10/14/18 04:10 04:43 04:34 WBC RBC 2.47 L Hgb 7.7 L Hct 21.9 L MCV MCH MCHC 35 H RDW 21.2 H Plt Count 40 L Seg Neuts % (Manual) Lymphocytes % (Manual) Nucleated RBC % Seg Neutrophils # Man Lymphocytes # (Manual) PT INR POC ABG pH 7.522 H POC ABG pCO2 29.1 L POC ABG pO2 132 H Sodium Potassium Chloride Carbon Dioxide BUN Creatinine Glucose POC Glucose Lactic Acid Uric Acid Calcium Phosphorus Magnesium TIBC Ferritin Total Bilirubin Direct Bilirubin AST ALT Alkaline Phosphatase Lactate Dehydrogenase Troponin T NT-Pro-B Natriuret Pep Total Protein Albumin Triglycerides Cholesterol LDL Cholesterol Direct Vitamin B12 Urine Creatinine 30.8 H Urine Total Protein 75 H Crossmatch 10/14/18 10/14/18 04:34 08:51 WBC RBC Hgb Hct MCV MCH MCHC RDW Plt Count Seg Neuts % (Manual) Lymphocytes % (Manual) Nucleated RBC % Seg Neutrophils # Man Lymphocytes # (Manual) PT INR POC ABG pH POC ABG pCO2 POC ABG pO2 Sodium Potassium Chloride Carbon Dioxide BUN 35 H Creatinine 5.2 H Glucose 144 H POC Glucose Lactic Acid Uric Acid Calcium Phosphorus Magnesium TIBC Ferritin Total Bilirubin Direct Bilirubin AST ALT Alkaline Phosphatase Lactate Dehydrogenase Troponin T NT-Pro-B Natriuret Pep Total Protein Albumin Triglycerides Cholesterol LDL Cholesterol Direct Vitamin B12 912.3 H Urine Creatinine Urine Total Protein Crossmatch
[2018-10-14 18:39] LABS: HIV-1 RNA QN PCR 5.51 Log cps/mL
--- NOTE | 2018-10-14 19:03 | Progress Note ---
Assessment and Plan Cultures: Blood culture 10/10/2018 no growth. Sputum culture 10/10/2018 Ana Paula albicans. Crypto Ag 10/10/2018 neg. Assessment: 43 y/o male with history of HIV (unknown CD4/VL/ART intake), HTN, CVA 6 months ago at [place], Nicotine Dependence, Malnutrition; admitted on 10/10/2018 due to AMS (confusion/lethargy) and slurred speech for 24 h: 1) Severe SIRS versus sepsis: Present on admission, manifested by fever, tachycardia, increased lactate. Unclear etiology ? Hypertensive encephalopathy +/- aspiration pneumonia +/- opportunistic brain infection - CXR neg - Unable to obtain UA - patient is anuric - BNP 70K - Troponin 0.2 - LDH 2242 2) Acute hypoxemic respiratory failure: for airway protection +/- ? pneumonia. Repeat CXR no consolidations. Ana Paula in tracha sp likely a colonizer. 3) Acute encephalopathy: from hypertensive urgency +/- brain opportunistic infection. DDx: Neurosyphilis,VZV/CMV encephalitis, toxoplasma encephalitis versus SPECIAL[employer] THERAPIST lymphoma versus less likely PML - CT head showed bilateral chronic ischemic changes. - Brain MRI showed areas of edema in the basal ganglia and thalami bilaterally, within the jamari and in the cerebral hemispheres bilaterally in the subcortical and deep white matter and in portions of the cortex, areas of encephalomalacia in the basal ganglia bilaterally with evidence of previous hemorrhage or mineral deposition and numerous small foci of acute infarct in the basal ganglia bilaterally, subinsular regions bilaterally and medial temporal lobes bilaterally and possibly in the occipital cortex bilaterally. - RPR reactive 1:32 4) Anemia/thrombocytopenia ? unclear etiology, worsening 5) Acute on CKD or SHRUTHI ? unclear etiology: r/o rhabdo ?ischemia. Started on HD 6) Elevated lactate ? Lactate 17. 7) DM: uncontrolled 8) Elevated LFTs ? 9) HIV/AIDS: VL 320,000 Recommendations: - continue on acyclovir to cover VZV/CMV as ganciclovir is backordered - continue on penicillin G continues infusion to cover neurosyphilis - continue meprom 750 MG PO bid (SULFA ALLERGY) for PJP treatment - stop flagyl - stop fluconazole as cryptococcal ag neg - follow-up blood cultures - f/u RPR, Toxo IgG, CMV DNA PCR and AFB-blood culture - obtain lumbar punture when stable for opening pressure and send CSF specimen for Gram stain and culture, glucose, protein, VDRL, HSV-PCR, EBV-PCR, EDIE virus PCR, T.gondii PCR, cryptococcal antigen and culture - f/u CD4 - abdominal CT w/o contrast eval bowel ischemi when stable - viral hepatitis panel - records from HIV clinic Grim prognosis unfortunately. Will follow. Praveena Colunga MD Infectious Diseases Primary Care Provider [facility] ([facility]) M [phone] O [phone] Subjective Date of service: 10/14/18 Principal diagnosis: low plt Interval history: Remains critically ill, on the vent, tachycardic at 110s, g. Tmax 100.6 Review of Systems: unable to obtian Objective - Exam Narrative Exam: General appearance: Alert eye open on the vent on BIPAP in NAD, no follows commands diaphoretic Eyes: anicteric sclerae, moist conjunctivae; no lid-lag; PERRLA HENT: Atraumatic; oropharynx +ETT Neck: Trachea midline; supple, no thyromegaly or lymphadenopathy Lungs: CTA, with normal respiratory effort and no intercostal retractions CV: tachcyardic Abdomen: Soft, non-tender; no masses or hepatosplenomegaly Extremities: No peripheral edema or extremity lymphadenopathy Skin: Normal temperature, turgor and texture; no rash, ulcers or subcutaneous nodules Psych: alert intubated not agitated Neuro: alert not agitated - Constitutional Vitals: Vital Signs Temp Pulse Resp BP Pulse Ox 100.6 F H 140 H 31 H 167/119 100 10/14/18 12:00 10/14/18 18:30 10/14/18 18:30 10/14/18 18:30 10/14/18 18:30 Temperature -Last 24 Hours Temperature 100.6 F Temperature 99.4 F Temperature 99.4 F Temperature 99.4 F Temperature 99.8 F Temperature 100.1 F Temperature 99.2 F - Labs CBC & Chem 7: 10/14/18 04:34 10/14/18 04:34 Labs: Abnormal lab results 10/11/18 10/14/18 10/14/18 Range/Units 17:36 04:34 04:34 RBC 2.47 L (3.65-5.03) M/mm3 Hgb 7.7 L (11.8-15.2) gm/dl Hct 21.9 L (35.5-45.6) % MCHC 35 H (32-34) % RDW 21.2 H (13.2-15.2) % Plt Count 40 L (140-440) K/mm3 BUN 35 H (9-20) mg/dL Creatinine 5.2 H (0.8-1.5) mg/dL Glucose 144 H (75-100) mg/dL Vitamin B12 (211-911) pg/mL HIV-1 RNA PCR copies/ml [id number] H Copies/mL HIV-1 RNA (PCR) log 5.51 H Log cps/mL 10/14/18 Range/Units 08:51 RBC (3.65-5.03) M/mm3 Hgb (11.8-15.2) gm/dl Hct (35.5-45.6) % MCHC (32-34) % RDW (13.2-15.2) % Plt Count (140-440) K/mm3 BUN (9-20) mg/dL Creatinine (0.8-1.5) mg/dL Glucose (75-100) mg/dL Vitamin B12 912.3 H (211-911) pg/mL HIV-1 RNA PCR copies/ml Copies/mL HIV-1 RNA (PCR) log Log cps/mL
[2018-10-14] MEDS ORDERED: TYLENOL ONE (20:23)
[2018-10-14] MEDS: APRESOLINE IV PRN (21:00)
[2018-10-14] MEDS ORDERED: TYLENOL PO ONE (23:31)
[2018-10-15 01:46] LABS: INR 1.06 (0.87-1.13)
--- NOTE | 2018-10-15 03:06 | XRay Report ---
PROCEDURE: XR CHEST 1V AP TECHNIQUE: A portable view of the chest was obtained. HISTORY: follow up respiratory failure COMPARISONS: Comparison is made with study of 10/14/2018 FINDINGS: The heart size is at the upper limits of normal. The lungs are not overtly congested. There are no lo calized infiltrates or effusions. The ET tube and NG tube appear in good position. IMPRESSION: No acute infiltrates or congestion.. This document is electronically signed by Claudio Friedman MD., October 15 2018 03:04:17 AM ET
[2018-10-15 04:08] LABS: Hematocrit 21.1 % (35.5-45.6); Hemoglobin 7.5 gm/dl (11.8-15.2); Mean Corpuscular HGB Conc 36 % (32-34); Mean Corpuscular Volume 89 fl (84-94); Red Blood Count 2.36 M/mm3 (3.65-5.03)
[2018-10-15] MEDS: PFIZERPEN 12 MIL.UNITS in NACL 0.9% 250ML 250 ML IV SCH ×2 (04:13→16:52)
[2018-10-15 04:14] LABS: Red Cell Distribution Width 21.9 % (13.2-15.2)
[2018-10-15 04:23] LABS: Albumin 2.7 g/dL (3.9-5); Calcium 8.3 mg/dL (8.4-10.2)
[2018-10-15 05:15] LABS: Platelet Count 31 K/mm3 (140-440)
[2018-10-15] MEDS: APRESOLINE IV PRN (06:14)
--- NOTE | 2018-10-15 07:57 | Hem/Onc Progress Note ---
Assessment and Plan 1. Anemia. At admission, hemoglobin was 8.1, later low and s/p Transfusion support. 2. Platelets at admission was 20. 3. White cell count was elevated. 4. PT/INR h/o slightly elevated. 5. Renal failure. 6. ALT elevated. 7. The patient has multiple medical issues. PLAN: I will ask for a smear evaluation. I will call the lab for same. Supportive care in the interim while we looked for primary etiology. 3 - plt better - s/p transfusion d/w dr rain and dr carrillo 10/14 - low plt - rasta ctive bleed suprapubic catheter 10/15 - plt were rising and again going down' pt had got plt transfusion LDH high - [id number] ordered smear - ordererd LDH may be high in other causes too - renal etc - Patient Problems (1) Thrombocytopenia associated with AIDS Current Visit: Yes Status: Acute Subjective Date of service: 10/15/18 Principal diagnosis: low plt Interval history: on vent - mother + Objective - Exam Narrative Exam: intubated - Constitutional Vitals: Last Vital Signs Temp 100 F H 10/15/18 03:23 Pulse 142 H 10/15/18 07:41 Resp 24 10/15/18 06:31 BP 133/88 10/15/18 07:41 Pulse Ox 100 10/15/18 07:41 Performance status: 4-completely disabled - EENT ENT: other (intubated) Lymph node exam: negative cervical - Respiratory Respiratory effort: Positive: other (on vent) Respiratory: bilateral: diminished (anteriorly) - Cardiovascular Heart Sounds: Present: S1 & S2 Extremities: No edema - Gastrointestinal General gastrointestinal: Present: soft, other (suprapubic foleys) Rectal Exam: deferred - Genitourinary Male genitourinary: Present: deferred - Integumentary Integumentary: warm - Neurologic Neurologic: other (moves lower extremities - intubated) - Labs Lab Results: Laboratory Results - last 24 hr 10/11/18 10/14/18 10/14/18 17:36 08:51 08:51 WBC RBC Hgb Hct MCV MCH MCHC RDW Plt Count PT INR Sodium Potassium Chloride Carbon Dioxide Anion Gap BUN Creatinine Estimated GFR BUN/Creatinine Ratio Glucose Calcium Total Bilirubin AST ALT Alkaline Phosphatase Total Protein Albumin Albumin/Globulin Ratio Vitamin B12 912.3 H Folate 8.32 HIV-1 RNA PCR copies/ml 296658 H HIV-1 RNA (PCR) log 5.51 H 10/15/18 10/15/18 10/15/18 00:59 03:14 03:14 WBC 9.3 RBC 2.36 L Hgb 7.5 L Hct 21.1 L MCV 89 MCH 32 MCHC 36 H RDW 21.9 H Plt Count 31 L PT 14.5 INR 1.06 Sodium 147 H Potassium 3.9 Chloride 105.2 Carbon Dioxide 22 Anion Gap 24 BUN 59 H Creatinine 8.0 H D Estimated GFR 9 BUN/Creatinine Ratio 7 Glucose 153 H Calcium 8.3 L Total Bilirubin 0.50 AST 179 H ALT 156 H Alkaline Phosphatase 130 H Total Protein 6.5 Albumin 2.7 L Albumin/Globulin Ratio 0.7 Vitamin B12 Folate HIV-1 RNA PCR copies/ml HIV-1 RNA (PCR) log Medications & Allergies - Medications Allergies/Adverse Reactions: Allergies Sulfa (Sulfonamide Antibiotics) Allergy (Verified 10/10/18 16:54) Unknown Home Medications: Home Medications Medication Instructions Recorded Confirmed Last Taken Type Acetaminophen [Tylenol] 1,000 mg PO Q6HR 10/10/18 10/10/18 Unknown History Amlodipine Besylate [Norvasc] 10 mg PO QDAY 10/10/18 10/10/18 Unknown History Aspirin [Adult Aspirin] 81 mg PO DAILY 10/10/18 10/10/18 Unknown History Atorvastatin [Lipitor Tab] 80 mg PO DAILY 10/10/18 10/10/18 Unknown History Losartan [Cozaar] 100 mg PO QDAY 10/10/18 10/10/18 Unknown History Multivitamin [Multiple Vitamins] 1 each PO DAILY 10/10/18 10/10/18 Unknown History hydroCHLOROthiazide [HCTZ] 25 mg PO QDAY 10/10/18 10/10/18 Unknown History Active Medications: Generic Name Dose Route Start Last Admin Trade Name Freq PRN Reason Stop Dose Admin Albuterol 2.5 mg 10/10/18 18:12 Proventil IH Q3HRT PRN Shortness Of Breath Amlodipine Besylate 10 mg 10/11/18 10:00 10/14/18 10:39 Norvasc PO 10 mg QDAY RUBI Administration Lipase/Protease/Amylase 1 each 10/11/18 12:[address] 10,500 Unit FEEDTUBE PRN PRN For Clogged Feeding Tube Atovaquone 750 mg 10/11/18 15:00 10/14/18 21:59 Mepron PO 750 mg BID RUBI Administration Haloperidol Lactate 5 mg 10/13/18 19:45 10/14/18 02:27 Haldol IV 5 mg Q6H PRN Administration Agitation Hydralazine HCl 10 mg 10/12/18 15:50 10/15/18 06:14 Apresoline IV 10 mg Q4HR PRN Administration SBP>175 or DBP>115 Hydrophilic Ointment 1 applic 10/10/18 17:53 Vaseline Lip Therapy TP Q2HR PRN Dry Lips Nicardipine HCl 50 mg/ Sodium 250 mls @ 25 mls/hr 10/11/18 13:00 10/14/18 08:15 Chloride IV 5 mg/hr TITR RUBI 25 mls/hr Administration Protocol 5 MG/HR Acyclovir 350 mg/ Sodium 107 mls @ 100 mls/hr 10/12/18 14:00 10/14/18 10:39 Chloride IV 100 mls/hr Q24HR RUBI Administration Penicillin G Potassium 12 mil. 250 mls @ 20.833 mls/hr 10/12/18 14:00 10/15/18 04:13 units/ Sodium Chloride IV 20.833 mls/hr Q12H RUBI Administration Sodium Chloride 100 mls @ 999 mls/hr 10/13/18 12:24 Nacl 0.9% IV CHON PRN Hypotension Lorazepam 1 mg 10/13/18 19:48 10/14/18 20:02 Ativan IV 1 mg Q4H PRN Administration agitation Multi-Ingred Cream/Lotion/Oil/Oint 1 applic 10/10/18 17:53 Artificial Tears Ophth Oint OU Q4HR PRN Dry Eye(s) Multivitamins 1 each 10/11/18 10:00 10/14/18 10:39 Theragran Tab PO 1 each DAILY RUBI Administration Pantoprazole Sodium 40 mg 10/12/18 11:00 10/14/18 21:59 Protonix IV 40 mg BID RUBI Administration Simple Syrup 15 ml 10/11/18 12:58 Simple Syrup FEEDTUBE PRN PRN Hypoglycemia Simple Syrup 30 ml 10/11/18 12:58 Simple Syrup FEEDTUBE PRN PRN Hypoglycemia Sodium Bicarbonate 325 mg 10/11/18 12:58 Sodium Bicarbonate FEEDTUBE PRN PRN For Clogged Feeding Tube Sodium Chloride 10 ml 10/10/18 22:00 10/14/18 22:01 Sodium Chloride Flush Syringe 10 Ml IV 10 ml BID RUBI Administration Sodium Chloride 10 ml 10/10/18 18:12 Sodium Chloride Flush Syringe 10 Ml IV PRN PRN LINE FLUSH
--- NOTE | 2018-10-15 08:48 | Progress Note ---
Assessment and Plan Impression * Acute renal failure. Most likely secondary to ATN * Respiratory failure * Encephalopathy * Sepsis * Anemia * Thrombocytopenia * HIV disease Recommendations * Patient remains oliguric. No evidence of renal recovery at this time . * He most likely has ATN * Plan to dialyze him again today * Avoid nephrotoxins * Adjust meds for GFR less than 10 * Monitor fluid status and electrolytes closely * Consultants notes appreciated * Discussed with patient's mother at bedside Subjective Date of service: 10/15/18 Principal diagnosis: low plt Interval history: Patient remains on the ventilator. Currently on 28% FiO2. Unresponsive. Objective - Vital Signs Vital signs: Vital Signs - 12hr 10/14/18 10/14/18 10/14/18 21:00 21:15 21:30 Temperature Pulse Rate 140 H 138 H 127 H Respiratory 33 H 40 H 30 H Rate Blood Pressure 169/112 172/107 139/85 O2 Sat by Pulse 100 100 100 Oximetry 10/14/18 10/14/18 10/14/18 21:45 22:00 22:15 Temperature Pulse Rate 132 H 129 H 145 H Respiratory 36 H 26 H 47 H Rate Blood Pressure 136/91 150/85 136/91 O2 Sat by Pulse 100 100 100 Oximetry 10/14/18 10/14/18 10/14/18 22:30 22:45 23:00 Temperature Pulse Rate 127 H 129 H 144 H Respiratory 28 H 26 H 37 H Rate Blood Pressure 131/82 138/86 183/117 O2 Sat by Pulse 100 100 100 Oximetry 10/14/18 10/14/18 10/14/18 23:05 23:11 23:15 Temperature 100.1 F H Pulse Rate 127 H 125 H Respiratory 31 H 27 H Rate Blood Pressure 183/117 140/85 O2 Sat by Pulse 100 100 Oximetry 10/14/18 10/14/18 10/14/18 23:30 23:44 23:45 Temperature Pulse Rate 140 H 126 H 125 H Respiratory 28 H 29 H 27 H Rate Blood Pressure 178/114 140/85 140/85 O2 Sat by Pulse 100 100 100 Oximetry 10/14/18 10/15/18 10/15/18 23:47 00:00 00:15 Temperature Pulse Rate 131 H 123 H 134 H Respiratory 18 27 H 29 H Rate Blood Pressure 139/91 139/86 158/110 O2 Sat by Pulse 100 100 100 Oximetry 10/15/18 10/15/18 10/15/18 00:30 00:45 01:00 Temperature Pulse Rate 124 H 129 H 129 H Respiratory 28 H 36 H 32 H Rate Blood Pressure 137/85 138/100 155/99 O2 Sat by Pulse 100 100 100 Oximetry 10/15/18 10/15/18 10/15/18 01:15 01:31 01:45 Temperature Pulse Rate 120 H 139 H 121 H Respiratory 25 H 15 27 H Rate Blood Pressure 146/91 185/113 185/113 O2 Sat by Pulse 100 100 100 Oximetry 10/15/18 10/15/18 10/15/18 02:00 02:15 02:30 Temperature Pulse Rate 123 H 138 H 120 H Respiratory 26 H 22 27 H Rate Blood Pressure 137/85 137/85 136/84 O2 Sat by Pulse 100 100 100 Oximetry 10/15/18 10/15/18 10/15/18 02:45 02:46 03:01 Temperature Pulse Rate 121 H 122 H 138 H Respiratory 28 H 27 H 25 H Rate Blood Pressure 137/86 137/86 171/100 O2 Sat by Pulse 100 100 100 Oximetry 10/15/18 10/15/18 10/15/18 03:15 03:23 03:30 Temperature 100 F H Pulse Rate 123 H 121 H Respiratory 27 H 26 H Rate Blood Pressure 144/85 146/88 O2 Sat by Pulse 100 100 Oximetry 10/15/18 10/15/18 10/15/18 03:45 04:00 04:15 Temperature Pulse Rate 124 H 82 127 H Respiratory 27 H 23 28 H Rate Blood Pressure 147/90 89/53 157/96 O2 Sat by Pulse 100 100 100 Oximetry 10/15/18 10/15/18 10/15/18 04:30 04:45 05:00 Temperature Pulse Rate 130 H 122 H 124 H Respiratory 31 H 27 H 27 H Rate Blood Pressure 152/94 146/90 149/93 O2 Sat by Pulse 100 100 100 Oximetry 10/15/18 10/15/18 10/15/18 05:15 05:30 05:45 Temperature Pulse Rate 140 H 124 H 122 H Respiratory 20 24 26 H Rate Blood Pressure 149/93 144/94 138/89 O2 Sat by Pulse 100 100 100 Oximetry 10/15/18 10/15/18 10/15/18 06:00 06:15 06:31 Temperature Pulse Rate 139 H 121 H 140 H Respiratory 19 27 H 24 Rate Blood Pressure 182/108 136/85 177/100 O2 Sat by Pulse 100 100 100 Oximetry 10/15/18 07:41 Temperature Pulse Rate 142 H Respiratory Rate Blood Pressure 133/88 O2 Sat by Pulse 100 Oximetry - General Appearance General appearance: well-developed, well-nourished, intubated EENT: PERRL, mucous membranes moist Neck: no JVD, no thyromegaly, no carotid bruit, supple Respiratory: Present: Clear to Ascultation Cardiology: regular, normal heart rate Gastrointestinal: normoactive bowel sounds, other (suprapubic tube in place) Integumentary: other (no edema. Right femoral Vas-Cath in place) - Lab 10/15/18 03:14 10/15/18 03:14 Most recent lab results Calcium 8.3 mg/dL (8.4-10.2) L 10/15/18 03:14 Phosphorus 5.10 mg/dL (2.5-4.5) H 10/12/18 04:57 Magnesium 2.50 mg/dL (1.7-2.3) H 10/12/18 04:57 Urine Creatinine 30.8 mg/dL (0.1-20.0) H 10/13/18 04:43 Urine Sodium 106 mmol/L 10/13/18 04:43 Urine Total Protein 75 mg/dL (5-11.8) H 10/13/18 04:43 Medications & Allergies - Medications Allergies/Adverse Reactions: Allergies Sulfa (Sulfonamide Antibiotics) Allergy (Verified 10/10/18 16:54) Unknown Home Medications: Home Medications Medication Instructions Recorded Confirmed Last Taken Type Acetaminophen [Tylenol] 1,000 mg PO Q6HR 10/10/18 10/10/18 Unknown History Amlodipine Besylate [Norvasc] 10 mg PO QDAY 10/10/18 10/10/18 Unknown History Aspirin [Adult Aspirin] 81 mg PO DAILY 10/10/18 10/10/18 Unknown History Atorvastatin [Lipitor Tab] 80 mg PO DAILY 10/10/18 10/10/18 Unknown History Losartan [Cozaar] 100 mg PO QDAY 10/10/18 10/10/18 Unknown History Multivitamin [Multiple Vitamins] 1 each PO DAILY 10/10/18 10/10/18 Unknown History hydroCHLOROthiazide [HCTZ] 25 mg PO QDAY 10/10/18 10/10/18 Unknown History Active Medications: Generic Name Dose Route Start Last Admin Trade Name Freq PRN Reason Stop Dose Admin Albuterol 2.5 mg 10/10/18 18:12 Proventil IH Q3HRT PRN Shortness Of Breath Amlodipine Besylate 10 mg 10/11/18 10:00 10/14/18 10:39 Norvasc PO 10 mg QDAY RUBI Administration Lipase/Protease/Amylase 1 each 10/11/18 12:[address] 10,500 Unit FEEDTUBE PRN PRN For Clogged Feeding Tube Atovaquone 750 mg 10/11/18 15:00 10/14/18 21:59 Mepron PO 750 mg BID RUBI Administration Haloperidol Lactate 5 mg 10/13/18 19:45 10/14/18 02:27 Haldol IV 5 mg Q6H PRN Administration Agitation Hydralazine HCl 10 mg 10/12/18 15:50 10/15/18 06:14 Apresoline IV 10 mg Q4HR PRN Administration SBP>175 or DBP>115 Hydrophilic Ointment 1 applic 10/10/18 17:53 Vaseline Lip Therapy TP Q2HR PRN Dry Lips Nicardipine HCl 50 mg/ Sodium 250 mls @ 25 mls/hr 10/11/18 13:00 10/14/18 08:15 Chloride IV 5 mg/hr TITR RUBI 25 mls/hr Administration Protocol 5 MG/HR Penicillin G Potassium 12 mil. 250 mls @ 20.833 mls/hr 10/12/18 14:00 10/15/18 04:13 units/ Sodium Chloride IV 20.833 mls/hr Q12H RUBI Administration Sodium Chloride 100 mls @ 999 mls/hr 10/13/18 12:24 Nacl 0.9% IV CHON PRN Hypotension Ganciclovir Sodium 80 mg/ 250 mls @ 100 mls/hr 10/15/18 20:00 Sodium Chloride IV MoWeFr RUBI Lansoprazole 30 mg 10/15/18 10:00 Prevacid Solutab FEEDTUBE BID RUBI Lorazepam 1 mg 10/13/18 19:48 10/14/18 20:02 Ativan IV 1 mg Q4H PRN Administration agitation Multi-Ingred Cream/Lotion/Oil/Oint 1 applic 02/27/19 17:53 Artificial Tears Ophth Oint OU Q4HR PRN Dry Eye(s) Multivitamins 1 each 10/11/18 10:00 10/14/18 10:39 Theragran Tab PO 1 each DAILY RUBI Administration Simple Syrup 15 ml 10/11/18 12:58 Simple Syrup FEEDTUBE PRN PRN Hypoglycemia Simple Syrup 30 ml 10/11/18 12:58 Simple Syrup FEEDTUBE PRN PRN Hypoglycemia Sodium Bicarbonate 325 mg 10/11/18 12:58 Sodium Bicarbonate FEEDTUBE PRN PRN For Clogged Feeding Tube Sodium Chloride 10 ml 10/10/18 22:00 10/14/18 22:01 Sodium Chloride Flush Syringe 10 Ml IV 10 ml BID RUBI Administration Sodium Chloride 10 ml 10/10/18 18:12 Sodium Chloride Flush Syringe 10 Ml IV PRN PRN LINE FLUSH
[2018-10-15] MEDS ORDERED: NACL 0.9% 100 ML IV PRN (09:00)
[2018-10-15 09:29] LABS: Macrocytosis 1+; Schistocytes 1+
[2018-10-15 09:37] LABS: Band Neutrophils # (Manual) 1.1 K/mm3; Myelocytes # (Manual) 0.1 K/mm3; Total Cells Counted 100
[2018-10-15] MEDS: ATIVAN IV PRN ×3 (09:38→23:15)
[2018-10-15 09:40] LABS: Platelet Estimate Consistent w Auto
--- NOTE | 2018-10-15 10:05 | Progress Note ---
Assessment and Plan Cultures: Blood culture 10/10/2018 no growth. Sputum culture 10/10/2018 Ana Paula albicans. Crypto Ag 10/10/2018 neg. Urine culture 10/13/2018 no growth. Assessment: 43 y/o male with history of HIV (unknown CD4/VL/ART intake), HTN, CVA 6 months ago at [facility] [place], Nicotine Dependence, Malnutrition; admitted on 10/10/2018 due to AMS (confusion/lethargy) and slurred speech for 24 h: 1) Severe SIRS versus sepsis: continues with high fever. Unclear etiology ? Hypertensive encephalopathy +/- aspiration pneumonia +/- opportunistic brain infection - CXR neg - Unable to obtain UA - patient is anuric - BNP 70K - Troponin 0.2 - LDH 2242 2) Acute hypoxemic respiratory failure: for airway protection +/- ? pneumonia. Repeat CXR no consolidations. Ana Paula in tracha sp likely a colonizer. 3) Acute encephalopathy: from hypertensive urgency +/- brain opportunistic infection. DDx: Neurosyphilis,VZV/CMV encephalitis, toxoplasma encephalitis versus PALLIATIVE NURSE lymphoma versus less likely PML - CT head showed bilateral chronic ischemic changes. - Brain MRI showed areas of edema in the basal ganglia and thalami bilaterally, within the jamari and in the cerebral hemispheres bilaterally in the subcortical and deep white matter and in portions of the cortex, areas of encephalomalacia in the basal ganglia bilaterally with evidence of previous hemorrhage or mineral deposition and numerous small foci of acute infarct in the basal ganglia bilaterally, subinsular regions bilaterally and medial temporal lobes bilaterally and possibly in the occipital cortex bilaterally. - RPR reactive 1:32 4) Anemia/thrombocytopenia ? unclear etiology, worsening 5) Acute on CKD or SHRUTHI ? unclear etiology: r/o rhabdo ?ischemia. Started on HD 6) Elevated lactate ? Lactate 17. 7) DM: uncontrolled 8) Elevated LFTs ? 9) HIV/AIDS: VL 320,000 Recommendations: - needs LP when stable after platelet transfusion discussed with Dr Muñoz / high fever continues - LP for opening pressure and send CSF specimen for Gram stain and culture, glucose, protein, VDRL, HSV-PCR, EBV-PCR, EDIE virus PCR, T.gondii PCR, cryptococcal antigen and culture - stop on acyclovir, now ganciclovir available to cover VZV/CMV D3 - continue on penicillin G continues infusion to cover neurosyphilis D3 - continue meprom 750 MG PO bid (SULFA ALLERGY) for ?PJP - follow-up blood cultures - f/u RPR, Toxo IgG, CMV DNA PCR and AFB-blood culture - all pending - f/u CD4 - abdominal CT w/o contrast eval bowel ischemia when stable - viral hepatitis panel - records from HIV clinic Guarded prognosis unfortunately. Will follow. Praveena Colunga MD Infectious Diseases Medical Technologist Prn [facility], [place], [facility]ated [facility] ([facility]) M [phone] O [phone] Subjective Date of service: 10/15/18 Principal diagnosis: low plt Interval history: Remains critically ill, on the vent AC fiO2 28% p 6, , tachycardic at 120s, g. Tmax 102 Review of Systems: unable to obtian Objective - Exam Narrative Exam: General appearance: on the vent on AC FiO2 28% p6 in NAD, unresponsive no follows commands diaphoretic Eyes: anicteric sclerae, moist conjunctivae; no lid-lag; PERRLA HENT: Atraumatic; oropharynx +ETT Neck: Trachea midline; supple, no thyromegaly or lymphadenopathy Lungs: CTA, with normal respiratory effort and no intercostal retractions CV: tachycardic Abdomen: Soft, non-tender; no masses or hepatosplenomegaly Extremities: No peripheral edema or extremity lymphadenopathy Skin: Normal temperature, turgor and texture; no rash, ulcers or subcutaneous nodules Psych: unresponsive Neuro: unresponsive - Constitutional Vitals: Vital Signs Temp Pulse Resp BP Pulse Ox 99.6 F 142 H 24 133/88 100 10/15/18 08:00 10/15/18 07:41 10/15/18 06:31 10/15/18 07:41 10/15/18 07:41 Temperature -Last 24 Hours Temperature 99.6 F Temperature 100 F Temperature 100.1 F Temperature 102.3 F Temperature 100.6 F - Labs CBC & Chem 7: 10/15/18 03:14 10/15/18 03:14 Labs: Abnormal lab results 10/11/18 10/14/18 10/15/18 Range/Units 17:36 08:51 03:14 RBC 2.36 L (3.65-5.03) M/mm3 Hgb 7.5 L (11.8-15.2) gm/dl Hct 21.1 L (35.5-45.6) % MCHC 36 H (32-34) % RDW 21.9 H (13.2-15.2) % Plt Count 31 L (140-440) K/mm3 Lymphocytes % (Manual) 8.0 L (13.4-35.0) % Monocytes % (Manual) 9.0 H (0.0-7.3) % Basophils % (Manual) 2.0 H (0.0-1.8) % Nucleated RBC % 129.0 H (0.0-0.9) % Lymphocytes # (Manual) 0.7 L (1.2-5.4) K/mm3 Basophils # (Manual) 0.2 H (0.0-0.1) K/mm3 Sodium (137-145) mmol/L BUN (9-20) mg/dL Creatinine (0.8-1.5) mg/dL Glucose (75-100) mg/dL Calcium (8.4-10.2) mg/dL AST (5-40) units/L ALT (7-56) units/L Alkaline Phosphatase (35-129) units/L Albumin (3.9-5) g/dL Vitamin B12 912.3 H (211-911) pg/mL HIV-1 RNA PCR copies/ml 562118 H Copies/mL HIV-1 RNA (PCR) log 5.51 H Log cps/mL 10/15/18 Range/Units 03:14 RBC (3.65-5.03) M/mm3 Hgb (11.8-15.2) gm/dl Hct (35.5-45.6) % MCHC (32-34) % RDW (13.2-15.2) % Plt Count (140-440) K/mm3 Lymphocytes % (Manual) (13.4-35.0) % Monocytes % (Manual) (0.0-7.3) % Basophils % (Manual) (0.0-1.8) % Nucleated RBC % (0.0-0.9) % Lymphocytes # (Manual) (1.2-5.4) K/mm3 Basophils # (Manual) (0.0-0.1) K/mm3 Sodium 147 H (137-145) mmol/L BUN 59 H (9-20) mg/dL Creatinine 8.0 H D (0.8-1.5) mg/dL Glucose 153 H (75-100) mg/dL Calcium 8.3 L (8.4-10.2) mg/dL AST 179 H (5-40) units/L ALT 156 H (7-56) units/L Alkaline Phosphatase 130 H (35-129) units/L Albumin 2.7 L (3.9-5) g/dL Vitamin B12 (211-911) pg/mL HIV-1 RNA PCR copies/ml Copies/mL HIV-1 RNA (PCR) log Log cps/mL
[2018-10-15] MEDS: PREVACID SOLUTAB FEEDTUBE SCH ×2 (10:23→21:08)
[2018-10-15] MEDS: THERAGRAN Tab PO SCH (10:23)
[2018-10-15] MEDS: NORVASC PO SCH (10:23)
[2018-10-15] MEDS: MEPRON PO SCH ×2 (10:23→21:09)
[2018-10-15] MEDS: SODIUM CHLORIDE FLUSH SYRINGE 10 ML IV SCH (10:24)
[2018-10-15] MEDS ORDERED: NACL 0.9% 500 ML 500 ML IV ONE (10:53)
[2018-10-15] MEDS ORDERED: LASIX IV ONE (11:00)
[2018-10-15] MEDS: COREG PO SCH ×2 (11:10→21:09)
--- NOTE | 2018-10-15 11:10 | Progress Note ---
Assessment and Plan 43 y/o male with acute encephalopathy, acute respiratory failure, and presumed acute vs acute on chronic renal failure. 1. COntinue broad spectrum abx therapy 2. Stopped sedation, only PRN's for sedation 3. Continue suprapubic catheter 4. Transfuse 3 pack of platelets now. 5. Continue vent support. Will attempt daily SBT now that off sedation 6. Reviewed heme note, will transfuse platelets today to get above 50K so that LP can be done 7. Overall prognosis remains extremely guarded to poor 8. Continue feeds and titrate to goal 9. Discussed with mother over the phone the severity of current disease state. Have not met her yet in person. 10. HD today per renal CCT 31 minutes. Subjective Date of service: 10/15/18 Principal diagnosis: low plt Interval history: Platelets continue to drop. Mental status is worse today along with BUN and Cr. BP fluctuating. Mother is here but went to go shower. Urine output is falling off as well. Objective Vital Signs - 12hr 10/14/18 10/14/18 10/14/18 23:11 23:15 23:30 Temperature 100.1 F H Pulse Rate 125 H 140 H Respiratory 27 H 28 H Rate Blood Pressure 140/85 178/114 O2 Sat by Pulse 100 100 Oximetry 10/14/18 10/14/18 10/14/18 23:44 23:45 23:47 Temperature Pulse Rate 126 H 125 H 131 H Respiratory 29 H 27 H 18 Rate Blood Pressure 140/85 140/85 139/91 O2 Sat by Pulse 100 100 100 Oximetry 10/15/18 10/15/18 10/15/18 00:00 00:15 00:30 Temperature Pulse Rate 123 H 134 H 124 H Respiratory 27 H 29 H 28 H Rate Blood Pressure 139/86 158/110 137/85 O2 Sat by Pulse 100 100 100 Oximetry 10/15/18 10/15/18 10/15/18 00:45 01:00 01:15 Temperature Pulse Rate 129 H 129 H 120 H Respiratory 36 H 32 H 25 H Rate Blood Pressure 138/100 155/99 146/91 O2 Sat by Pulse 100 100 100 Oximetry 10/15/18 10/15/18 10/15/18 01:31 01:45 02:00 Temperature Pulse Rate 139 H 121 H 123 H Respiratory 15 27 H 26 H Rate Blood Pressure 185/113 185/113 137/85 O2 Sat by Pulse 100 100 100 Oximetry 10/15/18 10/15/18 10/15/18 02:15 02:30 02:45 Temperature Pulse Rate 138 H 120 H 121 H Respiratory 22 27 H 28 H Rate Blood Pressure 137/85 136/84 137/86 O2 Sat by Pulse 100 100 100 Oximetry 10/15/18 10/15/18 10/15/18 02:46 03:01 03:15 Temperature Pulse Rate 122 H 138 H 123 H Respiratory 27 H 25 H 27 H Rate Blood Pressure 137/86 171/100 144/85 O2 Sat by Pulse 100 100 100 Oximetry 10/15/18 10/15/18 10/15/18 03:23 03:30 03:45 Temperature 100 F H Pulse Rate 121 H 124 H Respiratory 26 H 27 H Rate Blood Pressure 146/88 147/90 O2 Sat by Pulse 100 100 Oximetry 10/15/18 10/15/18 10/15/18 04:00 04:15 04:30 Temperature Pulse Rate 82 127 H 130 H Respiratory 23 28 H 31 H Rate Blood Pressure 89/53 157/96 152/94 O2 Sat by Pulse 100 100 100 Oximetry 10/15/18 10/15/18 10/15/18 04:45 05:00 05:15 Temperature Pulse Rate 122 H 124 H 140 H Respiratory 27 H 27 H 20 Rate Blood Pressure 146/90 149/93 149/93 O2 Sat by Pulse 100 100 100 Oximetry 10/15/18 10/15/18 10/15/18 05:30 05:45 06:00 Temperature Pulse Rate 124 H 122 H 139 H Respiratory 24 26 H 19 Rate Blood Pressure 144/94 138/89 182/108 O2 Sat by Pulse 100 100 100 Oximetry 10/15/18 10/15/18 10/15/18 06:15 06:31 06:45 Temperature Pulse Rate 121 H 140 H 123 H Respiratory 27 H 24 28 H Rate Blood Pressure 136/85 177/100 177/100 O2 Sat by Pulse 100 100 100 Oximetry 10/15/18 10/15/18 10/15/18 07:00 07:15 07:30 Temperature Pulse Rate 126 H 121 H 125 H Respiratory 28 H 26 H 25 H Rate Blood Pressure 143/87 136/83 133/88 O2 Sat by Pulse 100 100 100 Oximetry 10/15/18 10/15/18 10/15/18 07:41 07:45 08:00 Temperature 99.6 F Pulse Rate 142 H 126 H 122 H Respiratory 28 H 27 H Rate Blood Pressure 133/88 147/84 141/81 O2 Sat by Pulse 100 100 100 Oximetry 10/15/18 10/15/18 10/15/18 08:15 08:30 08:45 Temperature Pulse Rate 125 H 125 H 127 H Respiratory 25 H 29 H 23 Rate Blood Pressure 137/89 152/94 152/94 O2 Sat by Pulse 100 100 100 Oximetry 10/15/18 10/15/18 10/15/18 09:00 09:15 09:31 Temperature Pulse Rate 124 H 126 H 129 H Respiratory 26 H 29 H 34 H Rate Blood Pressure 138/84 152/94 152/94 O2 Sat by Pulse 100 100 100 Oximetry 10/15/18 10/15/18 10/15/18 09:45 10:00 10:15 Temperature Pulse Rate 127 H 127 H 126 H Respiratory 27 H 26 H 27 H Rate Blood Pressure 143/85 140/85 133/84 O2 Sat by Pulse 100 100 100 Oximetry 10/15/18 10/15/18 10/15/18 10:23 10:30 10:45 Temperature Pulse Rate 126 H 124 H 126 H Respiratory 27 H 22 Rate Blood Pressure 133/84 141/86 151/82 O2 Sat by Pulse 100 100 Oximetry 10/15/18 11:00 Temperature Pulse Rate 127 H Respiratory 28 H Rate Blood Pressure 138/83 O2 Sat by Pulse 100 Oximetry Constitutional: no acute distress Eyes: non-icteric ENT: other (orally intubated, not on sedation, critically ill on vent) Neck: supple Effort: mildly labored Ascultation: Bilateral: clear, diminished breath sounds Percussion: Bilateral: not dull Cardiovascular: regular rate and rhythm (sinus tach) Gastrointestinal: normoactive bowel sounds, other (now with suprapubic catheter) Extremities: no cyanosis, no edema Neurologic: unable to assess CBC and BMP: 10/15/18 03:14 10/15/18 03:14 ABG, PT/INR, D-dimer: ABG POC ABG pH 7.522 (7.35-7.45) H 10/13/18 04:10 POC ABG pCO2 29.1 (35-45) L 10/13/18 04:10 POC ABG pO2 132 (80-105) H 10/13/18 04:10 POC ABG HCO3 23.9 10/13/18 04:10 POC ABG Total CO2 25 10/13/18 04:10 POC ABG O2 Sat 99 10/13/18 04:10 PT/INR, D-dimer PT 14.5 Sec. (12.2-14.9) 10/15/18 00:59 INR 1.06 (0.87-1.13) 10/15/18 00:59 Abnormal lab findings: Abnormal Labs 10/10/18 10/10/18 10/10/18 15:02 15:02 15:02 WBC RBC 2.38 L Hgb 8.1 L Hct 24.9 L MCV 105 H MCH 34 H MCHC RDW 21.4 H Plt Count 20 L Seg Neuts % (Manual) 84.0 H Lymphocytes % (Manual) 8.0 L Monocytes % (Manual) Basophils % (Manual) Nucleated RBC % Seg Neutrophils # Man 7.8 H Lymphocytes # (Manual) 0.7 L Basophils # (Manual) PT 16.2 H INR 1.22 H POC ABG pH POC ABG pCO2 POC ABG pO2 Sodium 136 L Potassium Chloride 88.2 L Carbon Dioxide 8 L* BUN 70 H Creatinine 5.6 H Glucose 331 H POC Glucose Lactic Acid Uric Acid Calcium Phosphorus Magnesium TIBC Ferritin Total Bilirubin Direct Bilirubin AST ALT Alkaline Phosphatase Lactate Dehydrogenase Troponin T 0.298 H* NT-Pro-B Natriuret Pep Total Protein Albumin Triglycerides 329 H Cholesterol 234 H LDL Cholesterol Direct 139 H Vitamin B12 Urine Creatinine Urine Total Protein HIV-1 RNA PCR copies/ml HIV-1 RNA (PCR) log Crossmatch 10/10/18 10/10/18 10/10/18 15:05 15:29 15:42 WBC RBC Hgb Hct MCV MCH MCHC RDW Plt Count Seg Neuts % (Manual) Lymphocytes % (Manual) Monocytes % (Manual) Basophils % (Manual) Nucleated RBC % Seg Neutrophils # Man Lymphocytes # (Manual) Basophils # (Manual) PT INR POC ABG pH POC ABG pCO2 POC ABG pO2 Sodium Potassium Chloride Carbon Dioxide BUN Creatinine Glucose POC Glucose 274 H Lactic Acid 17.90 H* Uric Acid Calcium Phosphorus Magnesium TIBC Ferritin Total Bilirubin Direct Bilirubin AST ALT Alkaline Phosphatase Lactate Dehydrogenase Troponin T NT-Pro-B Natriuret Pep Total Protein Albumin Triglycerides Cholesterol LDL Cholesterol Direct Vitamin B12 Urine Creatinine Urine Total Protein HIV-1 RNA PCR copies/ml HIV-1 RNA (PCR) log Crossmatch See Detail 10/10/18 10/10/18 10/10/18 15:42 16:22 16:54 WBC RBC Hgb Hct MCV MCH MCHC RDW Plt Count Seg Neuts % (Manual) Lymphocytes % (Manual) Monocytes % (Manual) Basophils % (Manual) Nucleated RBC % Seg Neutrophils # Man Lymphocytes # (Manual) Basophils # (Manual) PT INR POC ABG pH POC ABG pCO2 9.0 L POC ABG pO2 140 H Sodium Potassium Chloride Carbon Dioxide BUN Creatinine Glucose POC Glucose Lactic Acid Uric Acid Calcium Phosphorus Magnesium TIBC Ferritin Total Bilirubin 1.50 H Direct Bilirubin 0.4 H AST 105 H ALT Alkaline Phosphatase Lactate Dehydrogenase 2342 H Troponin T NT-Pro-B Natriuret Pep 76230 H Total Protein 9.2 H Albumin Triglycerides Cholesterol LDL Cholesterol Direct Vitamin B12 Urine Creatinine Urine Total Protein HIV-1 RNA PCR copies/ml HIV-1 RNA (PCR) log Crossmatch 10/10/18 10/10/18 10/10/18 17:08 18:07 18:24 WBC RBC Hgb Hct MCV MCH MCHC RDW Plt Count Seg Neuts % (Manual) Lymphocytes % (Manual) Monocytes % (Manual) Basophils % (Manual) Nucleated RBC % Seg Neutrophils # Man Lymphocytes # (Manual) Basophils # (Manual) PT INR POC ABG pH 7.172 L POC ABG pCO2 POC ABG pO2 533 H Sodium Potassium Chloride Carbon Dioxide BUN Creatinine Glucose POC Glucose Lactic Acid 14.80 H* Uric Acid Calcium Phosphorus Magnesium TIBC Ferritin Total Bilirubin Direct Bilirubin AST ALT Alkaline Phosphatase Lactate Dehydrogenase Troponin T 0.272 H* NT-Pro-B Natriuret Pep Total Protein Albumin Triglycerides Cholesterol LDL Cholesterol Direct Vitamin B12 Urine Creatinine Urine Total Protein HIV-1 RNA PCR copies/ml HIV-1 RNA (PCR) log Crossmatch 10/10/18 10/10/18 10/10/18 19:58 20:54 20:54 WBC RBC Hgb Hct MCV MCH MCHC RDW Plt Count Seg Neuts % (Manual) Lymphocytes % (Manual) Monocytes % (Manual) Basophils % (Manual) Nucleated RBC % Seg Neutrophils # Man Lymphocytes # (Manual) Basophils # (Manual) PT INR POC ABG pH POC ABG pCO2 POC ABG pO2 Sodium Potassium Chloride Carbon Dioxide BUN Creatinine Glucose POC Glucose Lactic Acid 11.50 H* 2.90 H* 2.90 H* Uric Acid Calcium Phosphorus Magnesium TIBC Ferritin Total Bilirubin Direct Bilirubin AST ALT Alkaline Phosphatase Lactate Dehydrogenase Troponin T NT-Pro-B Natriuret Pep Total Protein Albumin Triglycerides Cholesterol LDL Cholesterol Direct Vitamin B12 Urine Creatinine Urine Total Protein HIV-1 RNA PCR copies/ml HIV-1 RNA (PCR) log Crossmatch 10/10/18 10/10/18 10/11/18 22:43 23:55 02:44 WBC RBC Hgb Hct MCV MCH MCHC RDW Plt Count Seg Neuts % (Manual) Lymphocytes % (Manual) Monocytes % (Manual) Basophils % (Manual) Nucleated RBC % Seg Neutrophils # Man Lymphocytes # (Manual) Basophils # (Manual) PT INR POC ABG pH POC ABG pCO2 25.9 L POC ABG pO2 192 H Sodium Potassium Chloride Carbon Dioxide BUN Creatinine Glucose POC Glucose Lactic Acid 4.60 H* 5.40 H* Uric Acid Calcium Phosphorus Magnesium TIBC Ferritin Total Bilirubin Direct Bilirubin AST ALT Alkaline Phosphatase Lactate Dehydrogenase Troponin T NT-Pro-B Natriuret Pep Total Protein Albumin Triglycerides Cholesterol LDL Cholesterol Direct Vitamin B12 Urine Creatinine Urine Total Protein HIV-1 RNA PCR copies/ml HIV-1 RNA (PCR) log Crossmatch 10/11/18 10/11/18 10/11/18 02:55 02:55 03:34 WBC RBC 2.35 L Hgb 7.7 L Hct 22.9 L MCV 98 H MCH 33 H MCHC RDW 19.9 H Plt Count 23 L Seg Neuts % (Manual) 75.0 H Lymphocytes % (Manual) 11.0 L Monocytes % (Manual) Basophils % (Manual) Nucleated RBC % Seg Neutrophils # Man Lymphocytes # (Manual) 1.0 L Basophils # (Manual) PT INR POC ABG pH POC ABG pCO2 POC ABG pO2 Sodium Potassium 5.3 H D Chloride Carbon Dioxide 14 L BUN 74 H Creatinine 5.4 H Glucose 126 H POC Glucose Lactic Acid 5.30 H* Uric Acid Calcium 7.8 L D Phosphorus Magnesium TIBC Ferritin Total Bilirubin 1.90 H Direct Bilirubin AST 306 H ALT 89 H Alkaline Phosphatase 246 H Lactate Dehydrogenase Troponin T NT-Pro-B Natriuret Pep Total Protein Albumin 3.4 L Triglycerides Cholesterol LDL Cholesterol Direct Vitamin B12 Urine Creatinine Urine Total Protein HIV-1 RNA PCR copies/ml HIV-1 RNA (PCR) log Crossmatch 10/11/18 10/11/18 10/11/18 03:34 05:47 05:48 WBC RBC Hgb Hct MCV MCH MCHC RDW Plt Count Seg Neuts % (Manual) Lymphocytes % (Manual) Monocytes % (Manual) Basophils % (Manual) Nucleated RBC % Seg Neutrophils # Man Lymphocytes # (Manual) Basophils # (Manual) PT INR POC ABG pH 7.491 H POC ABG pCO2 24.9 L POC ABG pO2 166 H Sodium Potassium 5.2 H Chloride Carbon Dioxide 16 L BUN 80 H Creatinine 5.5 H Glucose 63 L POC Glucose Lactic Acid 3.80 H* Uric Acid Calcium 7.9 L Phosphorus Magnesium TIBC Ferritin Total Bilirubin Direct Bilirubin AST ALT Alkaline Phosphatase Lactate Dehydrogenase Troponin T NT-Pro-B Natriuret Pep Total Protein Albumin Triglycerides Cholesterol LDL Cholesterol Direct Vitamin B12 Urine Creatinine Urine Total Protein HIV-1 RNA PCR copies/ml HIV-1 RNA (PCR) log Crossmatch 10/11/18 10/11/18 10/11/18 09:56 17:34 17:34 WBC RBC Hgb Hct MCV MCH MCHC RDW Plt Count Seg Neuts % (Manual) Lymphocytes % (Manual) Monocytes % (Manual) Basophils % (Manual) Nucleated RBC % Seg Neutrophils # Man Lymphocytes # (Manual) Basophils # (Manual) PT INR POC ABG pH POC ABG pCO2 POC ABG pO2 Sodium Potassium 3.4 L D Chloride Carbon Dioxide 17 L BUN 97 H Creatinine 7.3 H Glucose 135 H POC Glucose Lactic Acid 2.60 H* 2.30 H* Uric Acid Calcium 7.9 L Phosphorus 5.80 H Magnesium 2.70 H TIBC Ferritin Total Bilirubin Direct Bilirubin AST ALT Alkaline Phosphatase Lactate Dehydrogenase Troponin T NT-Pro-B Natriuret Pep Total Protein Albumin Triglycerides Cholesterol LDL Cholesterol Direct Vitamin B12 Urine Creatinine Urine Total Protein HIV-1 RNA PCR copies/ml HIV-1 RNA (PCR) log Crossmatch 10/11/18 10/11/18 10/11/18 17:35 17:36 17:36 WBC RBC Hgb Hct MCV MCH MCHC RDW Plt Count Seg Neuts % (Manual) Lymphocytes % (Manual) Monocytes % (Manual) Basophils % (Manual) Nucleated RBC % Seg Neutrophils # Man Lymphocytes # (Manual) Basophils # (Manual) PT INR POC ABG pH POC ABG pCO2 POC ABG pO2 Sodium Potassium Chloride Carbon Dioxide BUN Creatinine Glucose POC Glucose Lactic Acid Uric Acid 13.4 H Calcium Phosphorus Magnesium TIBC 236 L Ferritin 35971.0 H Total Bilirubin Direct Bilirubin AST ALT Alkaline Phosphatase Lactate Dehydrogenase Troponin T NT-Pro-B Natriuret Pep Total Protein Albumin Triglycerides Cholesterol LDL Cholesterol Direct Vitamin B12 Urine Creatinine Urine Total Protein HIV-1 RNA PCR copies/ml 419042 H HIV-1 RNA (PCR) log 5.51 H Crossmatch 10/11/18 10/11/18 10/11/18 19:21 20:08 21:32 WBC RBC Hgb Hct MCV MCH MCHC RDW Plt Count Seg Neuts % (Manual) Lymphocytes % (Manual) Monocytes % (Manual) Basophils % (Manual) Nucleated RBC % Seg Neutrophils # Man Lymphocytes # (Manual) Basophils # (Manual) PT INR POC ABG pH POC ABG pCO2 POC ABG pO2 Sodium Potassium Chloride Carbon Dioxide 16 L BUN 99 H Creatinine 8.1 H Glucose 147 H POC Glucose Lactic Acid 2.60 H* 2.60 H* Uric Acid Calcium 7.7 L Phosphorus Magnesium 2.60 H TIBC Ferritin Total Bilirubin Direct Bilirubin AST ALT Alkaline Phosphatase Lactate Dehydrogenase Troponin T NT-Pro-B Natriuret Pep Total Protein Albumin Triglycerides Cholesterol LDL Cholesterol Direct Vitamin B12 Urine Creatinine Urine Total Protein HIV-1 RNA PCR copies/ml HIV-1 RNA (PCR) log Crossmatch 10/11/18 10/12/18 10/12/18 23:01 04:29 04:57 WBC 15.0 H RBC 1.75 L Hgb 5.6 L* Hct 16.7 L* D MCV 95 H MCH MCHC RDW 20.7 H Plt Count 49 L D Seg Neuts % (Manual) 90.0 H Lymphocytes % (Manual) 4.0 L Monocytes % (Manual) Basophils % (Manual) Nucleated RBC % 12.0 H Seg Neutrophils # Man 12.3 H Lymphocytes # (Manual) 0.5 L Basophils # (Manual) PT INR POC ABG pH 7.493 H POC ABG pCO2 23.1 L POC ABG pO2 176 H Sodium Potassium Chloride Carbon Dioxide BUN Creatinine Glucose POC Glucose Lactic Acid 3.20 H* Uric Acid Calcium Phosphorus Magnesium TIBC Ferritin Total Bilirubin Direct Bilirubin AST ALT Alkaline Phosphatase Lactate Dehydrogenase Troponin T NT-Pro-B Natriuret Pep Total Protein Albumin Triglycerides Cholesterol LDL Cholesterol Direct Vitamin B12 Urine Creatinine Urine Total Protein HIV-1 RNA PCR copies/ml HIV-1 RNA (PCR) log Crossmatch 03/01/19 03/01/19 03/01/19 04:57 04:57 06:43 WBC RBC Hgb 5.8 L* Hct 17.2 L* MCV MCH MCHC RDW Plt Count Seg Neuts % (Manual) Lymphocytes % (Manual) Monocytes % (Manual) Basophils % (Manual) Nucleated RBC % Seg Neutrophils # Man Lymphocytes # (Manual) Basophils # (Manual) PT 18.0 H INR 1.39 H POC ABG pH POC ABG pCO2 POC ABG pO2 Sodium Potassium 3.0 L D Chloride Carbon Dioxide 15 L BUN 102 H Creatinine 8.8 H Glucose 110 H POC Glucose Lactic Acid Uric Acid Calcium 7.6 L Phosphorus 5.10 H Magnesium 2.50 H TIBC Ferritin Total Bilirubin Direct Bilirubin AST 667 H ALT 298 H Alkaline Phosphatase 154 H Lactate Dehydrogenase Troponin T NT-Pro-B Natriuret Pep Total Protein Albumin 2.8 L Triglycerides Cholesterol LDL Cholesterol Direct Vitamin B12 Urine Creatinine Urine Total Protein HIV-1 RNA PCR copies/ml HIV-1 RNA (PCR) log Crossmatch 10/12/18 10/13/18 10/13/18 14:05 03:40 03:40 WBC 14.0 H 11.5 H RBC 2.76 L 2.58 L Hgb 8.7 L 8.2 L Hct 25.1 L D 22.9 L MCV MCH MCHC 35 H 36 H RDW 19.0 H 19.5 H Plt Count 53 L 123 L D Seg Neuts % (Manual) 93.0 H Lymphocytes % (Manual) 5.0 L 0 L Monocytes % (Manual) Basophils % (Manual) Nucleated RBC % 40.0 H 44.0 H Seg Neutrophils # Man 9.0 H 10.7 H Lymphocytes # (Manual) 0.7 L 0.0 L Basophils # (Manual) PT 15.6 H INR 1.17 H POC ABG pH POC ABG pCO2 POC ABG pO2 Sodium Potassium Chloride Carbon Dioxide BUN Creatinine Glucose POC Glucose Lactic Acid Uric Acid Calcium Phosphorus Magnesium TIBC Ferritin Total Bilirubin Direct Bilirubin AST ALT Alkaline Phosphatase Lactate Dehydrogenase Troponin T NT-Pro-B Natriuret Pep Total Protein Albumin Triglycerides Cholesterol LDL Cholesterol Direct Vitamin B12 Urine Creatinine Urine Total Protein HIV-1 RNA PCR copies/ml HIV-1 RNA (PCR) log Crossmatch 10/13/18 10/13/18 10/13/18 03:40 04:10 04:43 WBC RBC Hgb Hct MCV MCH MCHC RDW Plt Count Seg Neuts % (Manual) Lymphocytes % (Manual) Monocytes % (Manual) Basophils % (Manual) Nucleated RBC % Seg Neutrophils # Man Lymphocytes # (Manual) Basophils # (Manual) PT INR POC ABG pH 7.522 H POC ABG pCO2 29.1 L POC ABG pO2 132 H Sodium Potassium 3.3 L Chloride Carbon Dioxide 21 L BUN 51 H Creatinine 5.7 H Glucose 140 H POC Glucose Lactic Acid Uric Acid Calcium 7.9 L Phosphorus Magnesium TIBC Ferritin Total Bilirubin Direct Bilirubin AST 367 H ALT 238 H Alkaline Phosphatase 134 H Lactate Dehydrogenase Troponin T NT-Pro-B Natriuret Pep Total Protein 6.2 L Albumin 2.5 L Triglycerides Cholesterol LDL Cholesterol Direct Vitamin B12 Urine Creatinine 30.8 H Urine Total Protein 75 H HIV-1 RNA PCR copies/ml HIV-1 RNA (PCR) log Crossmatch 10/14/18 10/14/18 10/14/18 04:34 04:34 08:51 WBC RBC 2.47 L Hgb 7.7 L Hct 21.9 L MCV MCH MCHC 35 H RDW 21.2 H Plt Count 40 L Seg Neuts % (Manual) Lymphocytes % (Manual) Monocytes % (Manual) Basophils % (Manual) Nucleated RBC % Seg Neutrophils # Man Lymphocytes # (Manual) Basophils # (Manual) PT INR POC ABG pH POC ABG pCO2 POC ABG pO2 Sodium Potassium Chloride Carbon Dioxide BUN 35 H Creatinine 5.2 H Glucose 144 H POC Glucose Lactic Acid Uric Acid Calcium Phosphorus Magnesium TIBC Ferritin Total Bilirubin Direct Bilirubin AST ALT Alkaline Phosphatase Lactate Dehydrogenase Troponin T NT-Pro-B Natriuret Pep Total Protein Albumin Triglycerides Cholesterol LDL Cholesterol Direct Vitamin B12 912.3 H Urine Creatinine Urine Total Protein HIV-1 RNA PCR copies/ml HIV-1 RNA (PCR) log Crossmatch 10/15/18 10/15/18 03:14 03:14 WBC RBC 2.36 L Hgb 7.5 L Hct 21.1 L MCV MCH MCHC 36 H RDW 21.9 H Plt Count 31 L Seg Neuts % (Manual) Lymphocytes % (Manual) 8.0 L Monocytes % (Manual) 9.0 H Basophils % (Manual) 2.0 H Nucleated RBC % 129.0 H Seg Neutrophils # Man Lymphocytes # (Manual) 0.7 L Basophils # (Manual) 0.2 H PT INR POC ABG pH POC ABG pCO2 POC ABG pO2 Sodium 147 H Potassium Chloride Carbon Dioxide BUN 59 H Creatinine 8.0 H D Glucose 153 H POC Glucose Lactic Acid Uric Acid Calcium 8.3 L Phosphorus Magnesium TIBC Ferritin Total Bilirubin Direct Bilirubin AST 179 H ALT 156 H Alkaline Phosphatase 130 H Lactate Dehydrogenase Troponin T NT-Pro-B Natriuret Pep Total Protein Albumin 2.7 L Triglycerides Cholesterol LDL Cholesterol Direct Vitamin B12 Urine Creatinine Urine Total Protein HIV-1 RNA PCR copies/ml HIV-1 RNA (PCR) log Crossmatch
[2018-10-15] MEDS: HALDOL IV PRN (11:13)
--- NOTE | 2018-10-15 11:56 | Gastroenterology Progress Note ---
<YA MARIO - Last Filed: 10/15/18 12:22> Assessment and Plan 1.anemia 2.thrombocytopenia 3.HIV/AIDS -stool occult positive -H/H 7.5/21.1 -continue to monitor H/H and transfuse as needed -etiology-most likely multifactorial (CKD, chronic infection of HIV, etc.) -no plans for scope at this time unless overt bleeding develops -ID and hematology following -continue PPI and supportive care 4.elevated LFTs -hepatitis panel negative -etiology unclear-likely multifactorial (infection vs medication, vs ischemia vs other) -abd U/S showed liver normal -LFTs improving -INR WNL (1.06)-no evidence of liver failure -continue to trend labs and supportive care -no further GI recommendations at this time -will sign off, please call if needed Subjective Date of service: 10/15/18 Principal diagnosis: anemia Interval history: Patient remains in ICU on vent. No active signs of bleeding. Tolerating TFs. Objective - Constitutional Vitals: Temp Pulse Resp BP Pulse Ox 99.6 F 128 H 28 H 138/83 100 10/15/18 08:00 10/15/18 11:10 10/15/18 11:00 10/15/18 11:10 10/15/18 11:00 General appearance: other (on vent) - EENT ENT: other (+ETT, +NG) - Respiratory Respiratory: bilateral: diminished - Cardiovascular Rhythm: other (tachycardia) - Gastrointestinal General gastrointestinal: Present: soft, non-distended, normal bowel sounds - Labs CBC & Chem 7: 10/15/18 03:14 10/15/18 03:14 Labs: Laboratory Results - last 24 hr 10/11/18 10/15/18 10/15/18 17:36 00:59 03:14 WBC 7.3 RBC 2.36 L Hgb 7.5 L Hct 21.1 L MCV 89 MCH 32 MCHC 36 H RDW 21.9 H Plt Count 31 L Total Counted 100 Seg Neuts % (Manual) 66.0 Band Neutrophils % 12.0 Lymphocytes % (Manual) 8.0 L Reactive Lymphs % (Man) 0 Monocytes % (Manual) 9.0 H Eosinophils % (Manual) 2.0 Basophils % (Manual) 2.0 H Metamyelocytes % 0 Myelocytes % 1.0 Promyelocytes % 0 Blast Cells % 0 Nucleated RBC % 129.0 H Seg Neutrophils # Man 6.1 Band Neutrophils # 1.1 Lymphocytes # (Manual) 0.7 L Abs React Lymphs (Man) 0.0 Monocytes # (Manual) 0.8 Eosinophils # (Manual) 0.2 Basophils # (Manual) 0.2 H Metamyelocytes # 0.0 Myelocytes # 0.1 Promyelocytes # 0.0 Blast Cells # 0.0 WBC Morphology Not Reportable Hypersegmented Neuts Not Reportable Hyposegmented Neuts Not Reportable Hypogranular Neuts Not Reportable Smudge Cells Not Reportable Toxic Granulation Not Reportable Toxic Vacuolation Not Reportable Dohle Bodies Not Reportable Pelger-Huet Anomaly Not Reportable Kartik Rods Not Reportable Platelet Estimate Consistent w auto Clumped Platelets Not Reportable Plt Clumps, EDTA Not Reportable Large Platelets Not Reportable Giant Platelets Not Reportable Platelet Satelliting Not Reportable Plt Morphology Comment Not Reportable RBC Morphology Not Reportable Dimorphic RBCs Not Reportable Polychromasia Few Hypochromasia Not Reportable Poikilocytosis Not Reportable Anisocytosis Not Reportable Microcytosis Not Reportable Macrocytosis 1+ Spherocytes Not Reportable Pappenheimer Bodies Not Reportable Sickle Cells Not Reportable Target Cells Not Reportable Tear Drop Cells Not Reportable Ovalocytes Not Reportable Helmet Cells Not Reportable [place] Bodies Not Reportable [place] Rings Not Reportable Jani Cells Not Reportable Bite Cells Not Reportable Crenated Cell Not Reportable Elliptocytes Not Reportable Acanthocytes (Spur) Not Reportable Rouleaux Not Reportable Hemoglobin C Crystals Not Reportable Schistocytes 1+ Malaria parasites Not Reportable Jv Bodies Not Reportable Hem Pathologist Commnt Sent PT 14.5 INR 1.06 Sodium Potassium Chloride Carbon Dioxide Anion Gap BUN Creatinine Estimated GFR BUN/Creatinine Ratio Glucose Calcium Total Bilirubin AST ALT Alkaline Phosphatase Total Protein Albumin Albumin/Globulin Ratio HIV-1 RNA PCR copies/ml 029505 H HIV-1 RNA (PCR) log 5.51 H 10/15/18 03:14 WBC RBC Hgb Hct MCV MCH MCHC RDW Plt Count Total Counted Seg Neuts % (Manual) Band Neutrophils % Lymphocytes % (Manual) Reactive Lymphs % (Man) Monocytes % (Manual) Eosinophils % (Manual) Basophils % (Manual) Metamyelocytes % Myelocytes % Promyelocytes % Blast Cells % Nucleated RBC % Seg Neutrophils # Man Band Neutrophils # Lymphocytes # (Manual) Abs React Lymphs (Man) Monocytes # (Manual) Eosinophils # (Manual) Basophils # (Manual) Metamyelocytes # Myelocytes # Promyelocytes # Blast Cells # WBC Morphology Hypersegmented Neuts Hyposegmented Neuts Hypogranular Neuts Smudge Cells Toxic Granulation Toxic Vacuolation Dohle Bodies Pelger-Huet Anomaly Kartik Rods Platelet Estimate Clumped Platelets Plt Clumps, EDTA Large Platelets Giant Platelets Platelet Satelliting Plt Morphology Comment RBC Morphology Dimorphic RBCs Polychromasia Hypochromasia Poikilocytosis Anisocytosis Microcytosis Macrocytosis Spherocytes Pappenheimer Bodies Sickle Cells Target Cells Tear Drop Cells Ovalocytes Helmet Cells [place] Bodies [place] Rings Seanor Cells Bite Cells Crenated Cell Elliptocytes Acanthocytes (Spur) Rouleaux Hemoglobin C Crystals Schistocytes Malaria parasites Jv Bodies Hem Pathologist Commnt PT INR Sodium 147 H Potassium 3.9 Chloride 105.2 Carbon Dioxide 22 Anion Gap 24 BUN 59 H Creatinine 8.0 H D Estimated GFR 9 BUN/Creatinine Ratio 7 Glucose 153 H Calcium 8.3 L Total Bilirubin 0.50 AST 179 H ALT 156 H Alkaline Phosphatase 130 H Total Protein 6.5 Albumin 2.7 L Albumin/Globulin Ratio 0.7 HIV-1 RNA PCR copies/ml HIV-1 RNA (PCR) log <ILEANA WATKINS - Last Filed: 10/15/18 13:19> Assessment and Plan Agree with advanced practitioner exam, assessment, and plan with additions below: Patient remains intubated and ill appearing. LFT's improving gradually consistent with multi-factorial, continue to avoid hepatotoxic meds and treat underlying medical illnesses. Discussed this with patient's mother at bedside Will sign off, please call back if needed - Patient Problems (1) Occult blood positive stool Current Visit: Yes Status: Acute (2) Elevated LFTs Current Visit: Yes Status: Acute Objective - Constitutional Vitals: Temp Pulse Resp BP Pulse Ox 98.6 F 102 H 31 H 114/69 100 10/15/18 12:00 10/15/18 12:00 10/15/18 12:00 10/15/18 12:00 10/15/18 12:00 - Labs CBC & Chem 7: 10/15/18 03:14 10/15/18 03:14 Labs: Laboratory Results - last 24 hr 10/11/18 10/15/18 10/15/18 17:36 00:59 03:14 WBC 7.3 RBC 2.36 L Hgb 7.5 L Hct 21.1 L MCV 89 MCH 32 MCHC 36 H RDW 21.9 H Plt Count 31 L Total Counted 100 Seg Neuts % (Manual) 66.0 Band Neutrophils % 12.0 Lymphocytes % (Manual) 8.0 L Reactive Lymphs % (Man) 0 Monocytes % (Manual) 9.0 H Eosinophils % (Manual) 2.0 Basophils % (Manual) 2.0 H Metamyelocytes % 0 Myelocytes % 1.0 Promyelocytes % 0 Blast Cells % 0 Nucleated RBC % 129.0 H Seg Neutrophils # Man 6.1 Band Neutrophils # 1.1 Lymphocytes # (Manual) 0.7 L Abs React Lymphs (Man) 0.0 Monocytes # (Manual) 0.8 Eosinophils # (Manual) 0.2 Basophils # (Manual) 0.2 H Metamyelocytes # 0.0 Myelocytes # 0.1 Promyelocytes # 0.0 Blast Cells # 0.0 WBC Morphology Not Reportable Hypersegmented Neuts Not Reportable Hyposegmented Neuts Not Reportable Hypogranular Neuts Not Reportable Smudge Cells Not Reportable Toxic Granulation Not Reportable Toxic Vacuolation Not Reportable Dohle Bodies Not Reportable Pelger-Huet Anomaly Not Reportable Kartik Rods Not Reportable Platelet Estimate Consistent w auto Clumped Platelets Not Reportable Plt Clumps, EDTA Not Reportable Large Platelets Not Reportable Giant Platelets Not Reportable Platelet Satelliting Not Reportable Plt Morphology Comment Not Reportable RBC Morphology Not Reportable Dimorphic RBCs Not Reportable Polychromasia Few Hypochromasia Not Reportable Poikilocytosis Not Reportable Anisocytosis Not Reportable Microcytosis Not Reportable Macrocytosis 1+ Spherocytes Not Reportable Pappenheimer Bodies Not Reportable Sickle Cells Not Reportable Target Cells Not Reportable Tear Drop Cells Not Reportable Ovalocytes Not Reportable Helmet Cells Not Reportable [place] Bodies Not Reportable [place] Rings Not Reportable Seanor Cells Not Reportable Bite Cells Not Reportable Crenated Cell Not Reportable Elliptocytes Not Reportable Acanthocytes (Spur) Not Reportable Rouleaux Not Reportable Hemoglobin C Crystals Not Reportable Schistocytes 1+ Malaria parasites Not Reportable Jv Bodies Not Reportable Hem Pathologist Commnt Sent PT 14.5 INR 1.06 Sodium Potassium Chloride Carbon Dioxide Anion Gap BUN Creatinine Estimated GFR BUN/Creatinine Ratio Glucose Calcium Total Bilirubin AST ALT Alkaline Phosphatase Total Protein Albumin Albumin/Globulin Ratio HIV-1 RNA PCR copies/ml 780101 H HIV-1 RNA (PCR) log 5.51 H 10/15/18 03:14 WBC RBC Hgb Hct MCV MCH MCHC RDW Plt Count Total Counted Seg Neuts % (Manual) Band Neutrophils % Lymphocytes % (Manual) Reactive Lymphs % (Man) Monocytes % (Manual) Eosinophils % (Manual) Basophils % (Manual) Metamyelocytes % Myelocytes % Promyelocytes % Blast Cells % Nucleated RBC % Seg Neutrophils # Man Band Neutrophils # Lymphocytes # (Manual) Abs React Lymphs (Man) Monocytes # (Manual) Eosinophils # (Manual) Basophils # (Manual) Metamyelocytes # Myelocytes # Promyelocytes # Blast Cells # WBC Morphology Hypersegmented Neuts Hyposegmented Neuts Hypogranular Neuts Smudge Cells Toxic Granulation Toxic Vacuolation Dohle Bodies Pelger-Huet Anomaly Kartik Rods Platelet Estimate Clumped Platelets Plt Clumps, EDTA Large Platelets Giant Platelets Platelet Satelliting Plt Morphology Comment RBC Morphology Dimorphic RBCs Polychromasia Hypochromasia Poikilocytosis Anisocytosis Microcytosis Macrocytosis Spherocytes Pappenheimer Bodies Sickle Cells Target Cells Tear Drop Cells Ovalocytes Helmet Cells [place] Bodies [place] Rings Jani Cells Bite Cells Crenated Cell Elliptocytes Acanthocytes (Spur) Rouleaux Hemoglobin C Crystals Schistocytes Malaria parasites Jv Bodies Hem Pathologist Commnt PT INR Sodium 147 H Potassium 3.9 Chloride 105.2 Carbon Dioxide 22 Anion Gap 24 BUN 59 H Creatinine 8.0 H D Estimated GFR 9 BUN/Creatinine Ratio 7 Glucose 153 H Calcium 8.3 L Total Bilirubin 0.50 AST 179 H ALT 156 H Alkaline Phosphatase 130 H Total Protein 6.5 Albumin 2.7 L Albumin/Globulin Ratio 0.7 HIV-1 RNA PCR copies/ml HIV-1 RNA (PCR) log
--- NOTE | 2018-10-15 15:27 | Progress Note ---
Assessment and Plan Assessment and plan: patient is 43 YO Male with HIV, hypertension, previous stroke, Nicotine Dependence, presents to ED for evaluation. Patient was confused and lethargic and unable to provide history. He was seen and evaluated in ED and found to be in distress and unable to protect his airway and was therefore intubated, placed on ventilator and admitted to ICU. Patient diagnosed with acute resp failure, renal failure(acute vs acute on chronic) , Encephalopathy, Acidosis. He continues to have fevers, followed by ID Physician for HIV/AIDS. renal failure worsened therefore started on hemodialysis. Acute encephalopathy Neurochecks. Neurology following LP ordered but not stable for procedure Acute resp failure s/p intubated in ED Pulm following Vent weaning per protocol HIV/AIDS Details unclear. No previous records available ID Physician following Acute Bilateral infarcts with edema Consulted Neurology, she was evaluated by DR. Valentine. She does not recommend anti-platelets SHRUTHI due to ATN patient started on hemodialysis Baseline unknown Unable to place regan. Consulted and called Dr. Paula, urology and he came and placed suprapubic catheter Fevers SIRS vs Sepsis Blood cultures neg Started on Ganciclovir Thrombocytopenia, s/p 2 Units platelets transfused, went up to 123, down to 31 again Anemia, hemoglobin drop Hgb 7.5 after 3 Units PRBC Stool occult blood positive Seen by GI, conservative management Hyperkalemia, resolved Elevated LFT Hyperlipidemia Hypertensive urgency. Started on cardene drip History of stroke Elevated Troponin Likely due to kidney disease Prognosis guarded Full code status History Interval history: Patient with HIV/AIDS presented with altered mental status, then could not protect airway,intubated in ED Dialysis started fever Hospitalist Physical - Physical exam Narrative exam: GEN: Not in acute distress, HEENT: Normocephalic, atraumatic, Neck: supple, No JVD Lungs:Clear to auscultation, no wheeze Heart:S1 and S2 regular, no murmurs, rubs or gallop, Abd:soft, non tender, non distended, normal bowel sounds Ext: No edema, no clubbing or cyanosis Neuro:Intubated, sedated - Constitutional Vitals: Temp Pulse Resp BP Pulse Ox 98.6 F 111 H 28 H 129/78 100 10/15/18 12:00 10/15/18 15:00 10/15/18 14:30 10/15/18 15:00 10/15/18 14:30 Results - Labs CBC & Chem 7: 10/15/18 03:14 10/15/18 03:14 Labs: Laboratory Last Values WBC 7.3 K/mm3 (4.5-11.0) 10/15/18 03:14 RBC 2.36 M/mm3 (3.65-5.03) L 10/15/18 03:14 Hgb 7.5 gm/dl (11.8-15.2) L 10/15/18 03:14 Hct 21.1 % (35.5-45.6) L 10/15/18 03:14 MCV 89 fl (84-94) 10/15/18 03:14 MCH 32 pg (28-32) 10/15/18 03:14 MCHC 36 % (32-34) H 10/15/18 03:14 RDW 21.9 % (13.2-15.2) H 10/15/18 03:14 Plt Count 31 K/mm3 (140-440) L 10/15/18 03:14 Add Manual Diff Complete 10/13/18 03:40 Total Counted 100 10/15/18 03:14 Seg Neuts % (Manual) 66.0 % (40.0-70.0) 10/15/18 03:14 Band Neutrophils % 12.0 % 10/15/18 03:14 Lymphocytes % (Manual) 8.0 % (13.4-35.0) L 10/15/18 03:14 Reactive Lymphs % (Man) 0 % 10/15/18 03:14 Monocytes % (Manual) 9.0 % (0.0-7.3) H 10/15/18 03:14 Eosinophils % (Manual) 2.0 % (0.0-4.3) 10/15/18 03:14 Basophils % (Manual) 2.0 % (0.0-1.8) H 10/15/18 03:14 Metamyelocytes % 0 % 10/15/18 03:14 Myelocytes % 1.0 % 10/15/18 03:14 Promyelocytes % 0 % 10/15/18 03:14 Blast Cells % 0 % 10/15/18 03:14 Nucleated RBC % 129.0 % (0.0-0.9) H 10/15/18 03:14 Seg Neutrophils # Man 6.1 K/mm3 (1.8-7.7) 10/15/18 03:14 Band Neutrophils # 1.1 K/mm3 10/15/18 03:14 Lymphocytes # (Manual) 0.7 K/mm3 (1.2-5.4) L 10/15/18 03:14 Abs React Lymphs (Man) 0.0 K/mm3 10/15/18 03:14 Monocytes # (Manual) 0.8 K/mm3 (0.0-0.8) 10/15/18 03:14 Eosinophils # (Manual) 0.2 K/mm3 (0.0-0.4) 10/15/18 03:14 Basophils # (Manual) 0.2 K/mm3 (0.0-0.1) H 10/15/18 03:14 Metamyelocytes # 0.0 K/mm3 10/15/18 03:14 Myelocytes # 0.1 K/mm3 10/15/18 03:14 Promyelocytes # 0.0 K/mm3 10/15/18 03:14 Blast Cells # 0.0 K/mm3 10/15/18 03:14 WBC Morphology Not Reportable 10/15/18 03:14 Hypersegmented Neuts Not Reportable 10/15/18 03:14 Hyposegmented Neuts Not Reportable 10/15/18 03:14 Hypogranular Neuts Not Reportable 10/15/18 03:14 Smudge Cells Not Reportable 10/15/18 03:14 Toxic Granulation Not Reportable 10/15/18 03:14 Toxic Vacuolation Not Reportable 10/15/18 03:14 Dohle Bodies Not Reportable 10/15/18 03:14 Pelger-Huet Anomaly Not Reportable 10/15/18 03:14 Kartik Rods Not Reportable 10/15/18 03:14 Platelet Estimate Consistent w auto 10/15/18 03:14 Clumped Platelets Not Reportable 10/15/18 03:14 Plt Clumps, EDTA Not Reportable 10/15/18 03:14 Large Platelets Not Reportable 10/15/18 03:14 Giant Platelets Not Reportable 10/15/18 03:14 Platelet Satelliting Not Reportable 10/15/18 03:14 Plt Morphology Comment Not Reportable 10/15/18 03:14 RBC Morphology Not Reportable 10/15/18 03:14 Dimorphic RBCs Not Reportable 10/15/18 03:14 Polychromasia Few 10/15/18 03:14 Hypochromasia Not Reportable 10/15/18 03:14 Poikilocytosis Not Reportable 10/15/18 03:14 Anisocytosis Not Reportable 10/15/18 03:14 Microcytosis Not Reportable 10/15/18 03:14 Macrocytosis 1+ 10/15/18 03:14 Spherocytes Not Reportable 10/15/18 03:14 Pappenheimer Bodies Not Reportable 10/15/18 03:14 Sickle Cells Not Reportable 10/15/18 03:14 Target Cells Not Reportable 10/15/18 03:14 Tear Drop Cells Not Reportable 10/15/18 03:14 Ovalocytes Not Reportable 10/15/18 03:14 Helmet Cells Not Reportable 10/15/18 03:14 [place] Bodies Not Reportable 10/15/18 03:14 [place] Rings Not Reportable 10/15/18 03:14 Jani Cells Not Reportable 10/15/18 03:14 Bite Cells Not Reportable 10/15/18 03:14 Crenated Cell Not Reportable 10/15/18 03:14 Elliptocytes Not Reportable 10/15/18 03:14 Acanthocytes (Spur) Not Reportable 10/15/18 03:14 Rouleaux Not Reportable 10/15/18 03:14 Hemoglobin C Crystals Not Reportable 10/15/18 03:14 Schistocytes 1+ 10/15/18 03:14 Malaria parasites Not Reportable 10/15/18 03:14 Jv Bodies Not Reportable 10/15/18 03:14 Hem Pathologist Commnt Sent 10/15/18 03:14 PT 14.5 Sec. (12.2-14.9) 10/15/18 00:59 INR 1.06 (0.87-1.13) 10/15/18 00:59 APTT 27.9 Sec. (24.2-36.6) 10/10/18 15:02 Thrombin Time 16.9 Sec. (15.1-19.6) 10/10/18 15:02 POC ABG pH 7.522 (7.35-7.45) H 10/13/18 04:10 POC ABG pCO2 29.1 (35-45) L 10/13/18 04:10 POC ABG pO2 132 (80-105) H 10/13/18 04:10 POC ABG HCO3 23.9 10/13/18 04:10 POC ABG Total CO2 25 10/13/18 04:10 POC ABG O2 Sat 99 10/13/18 04:10 POC ABG Base Excess 1 10/13/18 04:10 FiO2 28 % 10/13/18 04:10 Sodium 147 mmol/L (137-145) H 10/15/18 03:14 Potassium 3.9 mmol/L (3.6-5.0) 10/15/18 03:14 Chloride 105.2 mmol/L (98-107) 10/15/18 03:14 Carbon Dioxide 22 mmol/L (22-30) 10/15/18 03:14 Anion Gap 24 mmol/L 10/15/18 03:14 BUN 59 mg/dL (9-20) H 10/15/18 03:14 Creatinine 8.0 mg/dL (0.8-1.5) H D 10/15/18 03:14 Estimated GFR 9 ml/min 10/15/18 03:14 BUN/Creatinine Ratio 7 % 10/15/18 03:14 Glucose 153 mg/dL (75-100) H 10/15/18 03:14 POC Glucose 274 (70-105) H 10/10/18 15:29 Osmolality 338 Mosm/kg 10/11/18 17:35 Lactic Acid 1.80 mmol/L (0.7-2.0) 10/12/18 05:59 Uric Acid 13.4 mg/dL (3.5-7.6) H 10/11/18 17:36 Calcium 8.3 mg/dL (8.4-10.2) L 10/15/18 03:14 Phosphorus 5.10 mg/dL (2.5-4.5) H 10/12/18 04:57 Magnesium 2.50 mg/dL (1.7-2.3) H 10/12/18 04:57 Iron 147 ug/dL (49-181) 10/11/18 17:36 TIBC 236 mcg/dL (250-450) L 10/11/18 17:36 Ferritin 76213.0 ng/mL (13.0-400.0) H 10/11/18 17:35 Total Bilirubin 0.50 mg/dL (0.1-1.2) 10/15/18 03:14 Direct Bilirubin 0.4 mg/dL (0-0.2) H 10/10/18 15:42 Indirect Bilirubin 1.1 mg/dL 10/10/18 15:42 AST 179 units/L (5-40) H 10/15/18 03:14 ALT 156 units/L (7-56) H 10/15/18 03:14 Alkaline Phosphatase 130 units/L (35-129) H 10/15/18 03:14 Ammonia 50.0 umol/L (25-60) 10/10/18 15:42 Lactate Dehydrogenase 2342 units/L (91-180) H 10/10/18 16:54 Troponin T 0.272 ng/mL (0.00-0.029) H* 10/10/18 18:07 NT-Pro-B Natriuret Pep 23615 pg/mL (0-450) H 10/10/18 15:42 Total Protein 6.5 g/dL (6.3-8.2) 10/15/18 03:14 Albumin 2.7 g/dL (3.9-5) L 10/15/18 03:14 Albumin/Globulin Ratio 0.7 % 10/15/18 03:14 Triglycerides 329 mg/dL (2-149) H 10/10/18 15:02 Cholesterol 234 mg/dL (50-199) H 10/10/18 15:02 LDL Cholesterol Direct 139 mg/dL (50-130) H 10/10/18 15:02 HDL Cholesterol 42 mg/dL (40-59) 10/10/18 15:02 Cholesterol/HDL Ratio 5.57 % 10/10/18 15:02 Vitamin B12 912.3 pg/mL (211-911) H 10/14/18 08:51 Folate 8.32 ng/mL (7.3-26.0) 10/14/18 08:51 Urine Creatinine 30.8 mg/dL (0.1-20.0) H 10/13/18 04:43 Urine Sodium 106 mmol/L 10/13/18 04:43 Urine Total Protein 75 mg/dL (5-11.8) H 10/13/18 04:43 RPR Titer 1:32 10/11/18 17:37 RPR Reactive (Nonreactive) 10/11/18 17:37 Hepatitis A IgM Ab Non-reactive (NonReactive) 10/11/18 17:34 Hep Bs Antigen Non-reactive (Negative) 10/11/18 17:34 Hep B Core IgM Ab Non-reactive (NonReactive) 10/11/18 17:34 Hepatitis C Antibody Non-reactive (NonReactive) 10/11/18 17:34 HIV-1 RNA PCR copies/ml 648979 Copies/mL H 10/11/18 17:36 HIV-1 RNA (PCR) log 5.51 Log cps/mL H 10/11/18 17:36 Blood Type A POSITIVE 10/10/18 15:05 Antibody Screen Negative 10/10/18 15:05 Crossmatch See Detail 10/10/18 15:05 Nutrition/Malnutrition Assess - Dietary Evaluation Nutrition/Malnutrition Findings: Nutrition Notes Start: 10/11/18 11:14 Freq: Status: Active Protocol: Document 10/15/18 11:36 LP (Rec: 10/15/18 11:43 LP [id number]) Nutrition Notes Initial or Follow up Reassessment Current Diagnosis Acute Kidney Injury Sepsis Respiratory Failure Other Pertinent Diagnosis Lactic acidosis, metabolic acidosis, HIV Current Diet Nepro at 45 mL/hr Labs/Tests Na 147 BG 153 Pertinent Medications Reviewed Height 5 ft 9 in Weight 63.8 kg [place] Body Weight (kg) 72.72 BMI 20.7 Weight change and time frame Wt change noted could be due to fluid Subjective/Other Information TF tolerated at goal rate. Percent of energy/protein needs met: 100%/100% Burn Absent Trauma Absent #1 Nutrition Diagnosis Inadequate oral intake Diagnosis Progress(for reassessment Continues documentation) Is patient on ventilator? Yes Is Patient Ambulatory and/or Out of Bed No REE-([facility]-confined to bed) 4580.320 Calculation Used for Recommendations [facility] Additional Notes Pro: 88-145g (1.2-2g/kg) Fluid: 1mL/kcal Nutrition Intervention Change Diet Order: Continue current Nutrition Support: Nepro at 45 mL/hr Water flush 200 mL q4h for hypernatremia and 150ml q4h once resolved Kcal 1,944 Protein (gm) 87 Fluid (mL) 1,159 Goal #1 Meet at least 80% of kcal and protein needs via TF Anticipated Discharge Needs: Unable to determine at this time Follow-Up By: 10/19/18 Additional Comments Follow for stable TF, Na level
--- NOTE | 2018-10-15 15:58 | Anesthesia Consultation ---
Anesthesia Consult and Med Hx Date of service: 10/16/18 - Airway Anesthetic Teeth Evaluation: Poor ROM Head & Neck: Adequate Mental/Hyoid Distance: Adequate Mallampati Class: Class III Intubation Access Assessment: Probably Good - Pulmonary Exam CTA: Yes - Cardiac Exam Cardiac Exam: RRR - Pre-Operative Health Status ASA Pre-Surgery Classification: ASA4 Proposed Anesthetic Plan: General, MAC - Pulmonary Hx Asthma: No COPD: No Hx Pneumonia: No - Cardiovascular System Hx Hypertension: Yes - Central Nervous System Hx Psychiatric Problems: No - Endocrine Hx End Stage Renal Disease: No - Other Systems Hx Alcohol Use: No - Additional Comments Anesthesia Medical History Comments: CVA; HIV; thrombocytopenia (21.8k); ETT in situ.; called Mother Amos George for phone consent 10/15/18, unavailable.
--- NOTE | 2018-10-15 16:49 | Magnetic Resonance Report ---
PROCEDURE: MR MRA/MRV HEAD WO CON TECHNIQUE: Axial 3-D [id number] MR angiography of the [place] and brain was performed. The source images were reconstructed in various views using maximum intensity projection. HISTORY: stroke, r/o vasculitis COMPARISONS: MRI brain October 10, 2018. FINDINGS: Images degraded by motion artifact. Carotid Siphon: Mild to moderate wall irregularity. Anterior Cerebral: Hypoplastic right A1 segment. Mild to moderate irregularity at the left A1 segment and both A2 segments. Middle Cerebral: Irregularity of the right and left M1 segments. More notable irregularity at the dis sanaz right M1 segment. Posterior Cerebral: Mild irregularity of the right and left P1 and P2 segments. Basilar: Linear defect within the lumen of the basilar artery and series 11:70 may represent artifact or a dissection. Intracranial Vertebral Arteries: Not clearly visualized. There is no aneurysm, dissection, vascular malformation, or significant vascular stenosis. There is n o evidence for vasculitis. IMPRESSION: * Images greatest by motion artifact. * Possible dissection versus artifact at the basilar artery. * Luminal irregularity at the anterior, middle, and posterior cerebral arteries as well as the carot id siphons may represent mild to moderate atherosclerotic disease. More notable narrowing at the dist al right A1 segment. Differential diagnosis includes motion artifact and vasculitis. * Vertebral arteries are not clearly visualized. * Further evaluation with CTA of the head may be helpful if clinically indicated. This document is electronically signed by Luis Cunningham MD., October 15 2018 04:46:42 PM ET
[2018-10-15] MEDS ORDERED: NACL 0.9% 500 ML 500 ML ONE (22:13)
[2018-10-15] MEDS: CYTOVENE IV SCH (22:17)
[2018-10-15] MEDS: NACL 0.9% IV SCH (22:17)
--- NOTE | 2018-10-16 03:04 | XRay Report ---
PROCEDURE: XR CHEST 1V AP TECHNIQUE: A portable view of the chest was obtained. HISTORY: follow up respiratory failure COMPARISONS: 10/15/2018 FINDINGS: The heart size is at the upper limits of normal. The lungs are not overtly congested. There are no lo calized infiltrates or effusions. ET tube has been removed. The NG tube is in the stomach. IMPRESSION: No acute infiltrates or congestion.. This document is electronically signed by Gucci Knight MD., October 16 2018 03:02:04 AM ET
[2018-10-16] MEDS: PFIZERPEN 12 MIL.UNITS in NACL 0.9% 250ML 250 ML IV SCH ×2 (05:09→13:42)
[2018-10-16] MEDS: SODIUM CHLORIDE FLUSH SYRINGE 10 ML IV SCH ×3 (05:11→21:14)
[2018-10-16] MEDS: ATIVAN IV PRN (05:23)
[2018-10-16 05:28] LABS: Albumin 2.7 g/dL (3.9-5); Bilirubin,Direct 0.2 mg/dL (0-0.2)
[2018-10-16 05:29] LABS: Albumin 2.8 g/dL (3.9-5); Calcium 8.5 mg/dL (8.4-10.2)
[2018-10-16 05:39] LABS: Hemoglobin 6.5 gm/dl (11.8-15.2); Mean Corpuscular HGB Conc 35 % (32-34); Mean Corpuscular Volume 89 fl (84-94); Red Blood Count 2.08 M/mm3 (3.65-5.03)
[2018-10-16 05:40] LABS: Platelet Count 68 K/mm3 (140-440); Red Cell Distribution Width 22.9 % (13.2-15.2)
[2018-10-16 05:43] LABS: Hematocrit 18.4 % (35.5-45.6)
[2018-10-16] MEDS ORDERED: NACL 0.9% 500 ML 500 ML IV ONE ×2 (07:50→11:00)
--- NOTE | 2018-10-16 07:55 | Hem/Onc Progress Note ---
Assessment and Plan 1. Anemia. At admission, hemoglobin was 8.1, later low and s/p Transfusion support. 2. Platelets at admission was 20. 3. White cell count was elevated. 4. PT/INR h/o slightly elevated. 5. Renal failure. 6. ALT elevated. 7. The patient has multiple medical issues. PLAN: I will ask for a smear evaluation. I will call the lab for same. Supportive care in the interim while we looked for primary etiology. 3/ - plt better - s/p transfusion d/w dr rain and dr carrillo 10/14 - low plt - rasta ctive bleed suprapubic catheter 10/15 - plt were rising and again going down' pt had got plt transfusion LDH high - [id number] ordered smear - ordererd LDH may be high in other causes too - renal etc 10/16 - d/w path - not many schistocytes on smear - ADAMTS 13 ordered extubated - Patient Problems (1) Thrombocytopenia associated with AIDS Current Visit: Yes Status: Acute Subjective Date of service: 10/16/18 Principal diagnosis: low plt Interval history: extubated Objective - Constitutional Vitals: Last Vital Signs Temp 100.5 F H 10/16/18 07:31 Pulse 120 H 10/16/18 06:00 Resp 25 H 10/16/18 06:00 BP 139/91 10/16/18 06:00 Pulse Ox 100 10/16/18 06:00 General appearance: no acute distress Performance status: 4-completely disabled - EENT ENT: other (extubated) Lymph node exam: negative cervical - Respiratory Respiratory effort: Positive: normal Respiratory: bilateral: diminished (effort) - Cardiovascular Heart Sounds: Present: S1 & S2 Extremities: No edema - Gastrointestinal General gastrointestinal: Present: soft, other (suprapubic) Rectal Exam: deferred - Genitourinary Male genitourinary: Present: deferred - Integumentary Integumentary: warm - Neurologic Neurologic: other (extubated recently) - Labs Lab Results: Laboratory Results - last 24 hr 10/10/18 10/12/18 10/15/18 15:05 Unknown 03:14 WBC 7.3 RBC 2.36 L Hgb 7.5 L Hct 21.1 L MCV 89 MCH 32 MCHC 36 H RDW 21.9 H Plt Count 31 L Total Counted 100 Seg Neuts % (Manual) 66.0 Band Neutrophils % 12.0 Lymphocytes % (Manual) 8.0 L Reactive Lymphs % (Man) 0 Monocytes % (Manual) 9.0 H Eosinophils % (Manual) 2.0 Basophils % (Manual) 2.0 H Metamyelocytes % 0 Myelocytes % 1.0 Promyelocytes % 0 Blast Cells % 0 Nucleated RBC % 129.0 H Seg Neutrophils # Man 6.1 Band Neutrophils # 1.1 Lymphocytes # (Manual) 0.7 L Abs React Lymphs (Man) 0.0 Monocytes # (Manual) 0.8 Eosinophils # (Manual) 0.2 Basophils # (Manual) 0.2 H Metamyelocytes # 0.0 Myelocytes # 0.1 Promyelocytes # 0.0 Blast Cells # 0.0 Pathologist Review WBC Morphology Not Reportable Hypersegmented Neuts Not Reportable Hyposegmented Neuts Not Reportable Hypogranular Neuts Not Reportable Smudge Cells Not Reportable Toxic Granulation Not Reportable Toxic Vacuolation Not Reportable Dohle Bodies Not Reportable Pelger-Huet Anomaly Not Reportable Kartik Rods Not Reportable Platelet Estimate Consistent w auto Clumped Platelets Not Reportable Plt Clumps, EDTA Not Reportable Large Platelets Not Reportable Giant Platelets Not Reportable Platelet Satelliting Not Reportable Plt Morphology Comment Not Reportable RBC Morphology Not Reportable Dimorphic RBCs Not Reportable Polychromasia Few Hypochromasia Not Reportable Poikilocytosis Not Reportable Anisocytosis Not Reportable Microcytosis Not Reportable Macrocytosis 1+ Spherocytes Not Reportable Pappenheimer Bodies Not Reportable Sickle Cells Not Reportable Target Cells Not Reportable Tear Drop Cells Not Reportable Ovalocytes Not Reportable Helmet Cells Not Reportable Smith-[place] Bodies Not Reportable [place] Rings Not Reportable [place] Cells Not Reportable Bite Cells Not Reportable Crenated Cell Not Reportable Elliptocytes Not Reportable Acanthocytes (Spur) Not Reportable Rouleaux Not Reportable Hemoglobin C Crystals Not Reportable Schistocytes 1+ Malaria parasites Not Reportable Jv Bodies Not Reportable Hem Pathologist Commnt Sent POC ABG pH POC ABG pCO2 POC ABG pO2 POC ABG HCO3 POC ABG Total CO2 POC ABG O2 Sat POC ABG Base Excess FiO2 Sodium Potassium Chloride Carbon Dioxide Anion Gap BUN Creatinine Estimated GFR BUN/Creatinine Ratio Glucose Calcium Total Bilirubin Direct Bilirubin Indirect Bilirubin AST ALT Alkaline Phosphatase Total Protein Albumin Albumin/Globulin Ratio T.pallidum Ab (FTA-ABS) Reactive H Crossmatch See Detail 10/15/18 10/16/18 10/16/18 19:22 04:07 04:07 WBC 7.9 RBC 2.08 L Hgb 6.5 L Hct 18.4 L* MCV 89 MCH 31 MCHC 35 H RDW 22.9 H Plt Count 68 L D Total Counted Seg Neuts % (Manual) Band Neutrophils % Lymphocytes % (Manual) Reactive Lymphs % (Man) Monocytes % (Manual) Eosinophils % (Manual) Basophils % (Manual) Metamyelocytes % Myelocytes % Promyelocytes % Blast Cells % Nucleated RBC % Seg Neutrophils # Man Band Neutrophils # Lymphocytes # (Manual) Abs React Lymphs (Man) Monocytes # (Manual) Eosinophils # (Manual) Basophils # (Manual) Metamyelocytes # Myelocytes # Promyelocytes # Blast Cells # Pathologist Review WBC Morphology Hypersegmented Neuts Hyposegmented Neuts Hypogranular Neuts Smudge Cells Toxic Granulation Toxic Vacuolation Dohle Bodies Pelger-Huet Anomaly Kartik Rods Platelet Estimate Clumped Platelets Plt Clumps, EDTA Large Platelets Giant Platelets Platelet Satelliting Plt Morphology Comment RBC Morphology Dimorphic RBCs Polychromasia Hypochromasia Poikilocytosis Anisocytosis Microcytosis Macrocytosis Spherocytes Pappenheimer Bodies Sickle Cells Target Cells Tear Drop Cells Ovalocytes Helmet Cells Smith-[place] Bodies [place] Rings Jani Cells Bite Cells Crenated Cell Elliptocytes Acanthocytes (Spur) Rouleaux Hemoglobin C Crystals Schistocytes Malaria parasites Jv Bodies Hem Pathologist Commnt POC ABG pH 7.552 H POC ABG pCO2 34.8 L POC ABG pO2 195 H POC ABG HCO3 30.6 POC ABG Total CO2 32 POC ABG O2 Sat 100 POC ABG Base Excess 8 FiO2 40 Sodium Potassium Chloride Carbon Dioxide Anion Gap BUN Creatinine Estimated GFR BUN/Creatinine Ratio Glucose Calcium Total Bilirubin 0.50 Direct Bilirubin 0.2 Indirect Bilirubin 0.3 AST 136 H ALT 106 H Alkaline Phosphatase 105 Total Protein 6.5 Albumin 2.7 L Albumin/Globulin Ratio 0.7 T.pallidum Ab (FTA-ABS) Crossmatch 10/16/18 04:07 WBC RBC Hgb Hct MCV MCH MCHC RDW Plt Count Total Counted Seg Neuts % (Manual) Band Neutrophils % Lymphocytes % (Manual) Reactive Lymphs % (Man) Monocytes % (Manual) Eosinophils % (Manual) Basophils % (Manual) Metamyelocytes % Myelocytes % Promyelocytes % Blast Cells % Nucleated RBC % Seg Neutrophils # Man Band Neutrophils # Lymphocytes # (Manual) Abs React Lymphs (Man) Monocytes # (Manual) Eosinophils # (Manual) Basophils # (Manual) Metamyelocytes # Myelocytes # Promyelocytes # Blast Cells # Pathologist Review WBC Morphology Hypersegmented Neuts Hyposegmented Neuts Hypogranular Neuts Smudge Cells Toxic Granulation Toxic Vacuolation Dohle Bodies Pelger-Huet Anomaly Kartik Rods Platelet Estimate Clumped Platelets Plt Clumps, EDTA Large Platelets Giant Platelets Platelet Satelliting Plt Morphology Comment RBC Morphology Dimorphic RBCs Polychromasia Hypochromasia Poikilocytosis Anisocytosis Microcytosis Macrocytosis Spherocytes Pappenheimer Bodies Sickle Cells Target Cells Tear Drop Cells Ovalocytes Helmet Cells Smith-[place] Bodies [place] Rings [place] Cells Bite Cells Crenated Cell Elliptocytes Acanthocytes (Spur) Rouleaux Hemoglobin C Crystals Schistocytes Malaria parasites Jv Bodies Hem Pathologist Commnt POC ABG pH POC ABG pCO2 POC ABG pO2 POC ABG HCO3 POC ABG Total CO2 POC ABG O2 Sat POC ABG Base Excess FiO2 Sodium 143 Potassium 4.2 Chloride 102.8 Carbon Dioxide 25 Anion Gap 19 BUN 50 H Creatinine 6.2 H Estimated GFR 12 BUN/Creatinine Ratio 8 Glucose 142 H Calcium 8.5 Total Bilirubin 0.50 Direct Bilirubin Indirect Bilirubin AST 134 H ALT 107 H Alkaline Phosphatase 106 Total Protein 6.5 Albumin 2.8 L Albumin/Globulin Ratio 0.8 T.pallidum Ab (FTA-ABS) Crossmatch Medications & Allergies - Medications Allergies/Adverse Reactions: Allergies Sulfa (Sulfonamide Antibiotics) Allergy (Verified 10/10/18 16:54) Unknown Home Medications: Home Medications Medication Instructions Recorded Confirmed Last Taken Type Acetaminophen [Tylenol] 1,000 mg PO Q6HR 10/10/18 10/10/18 Unknown History Amlodipine Besylate [Norvasc] 10 mg PO QDAY 10/10/18 10/10/18 Unknown History Aspirin [Adult Aspirin] 81 mg PO DAILY 10/10/18 10/10/18 Unknown History Atorvastatin [Lipitor Tab] 80 mg PO DAILY 10/10/18 10/10/18 Unknown History Losartan [Cozaar] 100 mg PO QDAY 10/10/18 10/10/18 Unknown History Multivitamin [Multiple Vitamins] 1 each PO DAILY 10/10/18 10/10/18 Unknown History hydroCHLOROthiazide [HCTZ] 25 mg PO QDAY 10/10/18 10/10/18 Unknown History Active Medications: Generic Name Dose Route Start Last Admin Trade Name Freq PRN Reason Stop Dose Admin Albuterol 2.5 mg 10/10/18 18:12 Proventil IH Q3HRT PRN Shortness Of Breath Amlodipine Besylate 10 mg 10/11/18 10:00 10/15/18 10:23 Norvasc PO 10 mg QDAY RUBI Administration Lipase/Protease/Amylase 1 each 10/11/18 12:58 Pancreaze 10,500 Unit FEEDTUBE PRN PRN For Clogged Feeding Tube Atovaquone 750 mg 10/11/18 15:00 10/15/18 21:09 Mepron PO 750 mg BID RUBI Administration Carvedilol 6.25 mg 10/15/18 11:00 10/15/18 21:09 Coreg PO 6.25 mg BID RUBI Administration Haloperidol Lactate 5 mg 10/13/18 19:45 10/15/18 11:13 Haldol IV 5 mg Q6H PRN Administration Agitation Hydralazine HCl 10 mg 10/12/18 15:50 10/15/18 06:14 Apresoline IV 10 mg Q4HR PRN Administration SBP>175 or DBP>115 Hydrophilic Ointment 1 applic 10/10/18 17:53 Vaseline Lip Therapy TP Q2HR PRN Dry Lips Penicillin G Potassium 12 mil. 250 mls @ 20.833 mls/hr 10/12/18 14:00 10/16/18 05:09 units/ Sodium Chloride IV 20.833 mls/hr Q12H RUBI Administration Ganciclovir Sodium 80 mg/ 250 mls @ 100 mls/hr 10/15/18 20:00 10/15/18 22:17 Sodium Chloride IV 100 mls/hr MoWeFr RUBI Administration Sodium Chloride 100 mls @ 999 mls/hr 10/15/18 09:00 Nacl 0.9% IV CHON PRN Hypotension Sodium Chloride 500 mls @ 0 mls/hr 10/16/18 07:50 Nacl 0.9% 500 Ml IV 10/16/18 07:51 ONCE ONE As Directed Lansoprazole 30 mg 10/15/18 10:00 10/15/18 21:08 Prevacid Solutab FEEDTUBE 30 mg BID RUBI Administration Lorazepam 1 mg 10/13/18 19:48 10/16/18 05:23 Ativan IV 1 mg Q4H PRN Administration agitation Multi-Ingred Cream/Lotion/Oil/Oint 1 applic 10/10/18 17:53 Artificial Tears Ophth Oint OU Q4HR PRN Dry Eye(s) Multivitamins 1 each 10/11/18 10:00 10/15/18 10:23 Theragran Tab PO 1 each DAILY RUBI Administration Simple Syrup 15 ml 10/11/18 12:58 Simple Syrup FEEDTUBE PRN PRN Hypoglycemia Simple Syrup 30 ml 10/11/18 12:58 Simple Syrup FEEDTUBE PRN PRN Hypoglycemia Sodium Bicarbonate 325 mg 10/11/18 12:58 Sodium Bicarbonate FEEDTUBE PRN PRN For Clogged Feeding Tube Sodium Chloride 10 ml 10/10/18 22:00 10/16/18 05:11 Sodium Chloride Flush Syringe 10 Ml IV Not Given BID RUBI Sodium Chloride 10 ml 10/10/18 18:12 Sodium Chloride Flush Syringe 10 Ml IV PRN PRN LINE FLUSH
--- NOTE | 2018-10-16 08:27 | Progress Note ---
Assessment and Plan Impression * Acute renal failure. Most likely secondary to ATN * Respiratory failure * Encephalopathy * Sepsis * Anemia * Thrombocytopenia * HIV disease Recommendations * His urine output seems to be somewhat better last 24 hours. Shall hold chon lysis today and check his chemistries again tomorrow and decide about additional dialysis treatment * He most likely has ATN * Avoid nephrotoxins * Adjust meds for GFR less than 10 * Monitor fluid status and electrolytes closely * Consultants notes appreciated Subjective Date of service: 10/16/18 Principal diagnosis: low plt Interval history: Patient remains in the ICU. He has self extubated. Currently on BiPAP with 35% FiO2. O2 saturation 100%. Patient is unresponsive. Not answering any questions. Objective - Vital Signs Vital signs: Vital Signs - 12hr 10/15/18 10/15/18 10/15/18 20:30 20:40 20:50 Temperature Pulse Rate 117 H 118 H 116 H Pulse Rate [ From Monitor] Respiratory 22 21 22 Rate Blood Pressure 114/68 114/76 114/76 O2 Sat by Pulse 100 100 100 Oximetry 10/15/18 10/15/18 10/15/18 21:00 21:09 21:10 Temperature Pulse Rate 119 H 116 H 116 H Pulse Rate [ From Monitor] Respiratory 25 H 22 Rate Blood Pressure 115/78 115/78 115/78 O2 Sat by Pulse 100 100 Oximetry 10/15/18 10/15/18 10/15/18 21:20 21:30 21:40 Temperature Pulse Rate 118 H 119 H 119 H Pulse Rate [ From Monitor] Respiratory 26 H 26 H 25 H Rate Blood Pressure 115/78 121/75 121/75 O2 Sat by Pulse 100 100 100 Oximetry 10/15/18 10/15/18 10/15/18 21:50 22:00 22:10 Temperature Pulse Rate 114 H 109 H 113 H Pulse Rate [ From Monitor] Respiratory 23 23 23 Rate Blood Pressure 121/75 104/67 104/67 O2 Sat by Pulse 100 100 100 Oximetry 10/15/18 10/15/18 10/15/18 22:20 22:30 22:40 Temperature Pulse Rate 117 H 116 H 119 H Pulse Rate [ From Monitor] Respiratory 23 23 24 Rate Blood Pressure 104/67 113/72 113/72 O2 Sat by Pulse 100 100 100 Oximetry 10/15/18 10/15/18 10/15/18 22:50 23:00 23:10 Temperature Pulse Rate 120 H 121 H 113 H Pulse Rate [ From Monitor] Respiratory 27 H 29 H 21 Rate Blood Pressure 128/83 131/85 131/85 O2 Sat by Pulse 100 100 100 Oximetry 10/15/18 10/15/18 10/15/18 23:15 23:29 23:30 Temperature Pulse Rate 112 H 113 H 112 H Pulse Rate [ From Monitor] Respiratory 24 24 22 Rate Blood Pressure 116/76 116/76 117/74 O2 Sat by Pulse 100 100 100 Oximetry 10/15/18 10/15/18 10/15/18 23:34 23:35 23:45 Temperature 99.7 F H Pulse Rate 113 H 114 H 113 H Pulse Rate [ From Monitor] Respiratory 27 H 26 H 27 H Rate Blood Pressure 117/74 117/74 124/77 O2 Sat by Pulse 100 100 100 Oximetry 10/16/18 10/16/18 10/16/18 00:00 00:15 00:30 Temperature Pulse Rate 111 H 111 H 111 H Pulse Rate [ 119 H From Monitor] Respiratory 24 22 23 Rate Blood Pressure 123/74 125/74 120/72 O2 Sat by Pulse 100 100 100 Oximetry 10/16/18 10/16/18 10/16/18 00:45 01:00 01:15 Temperature Pulse Rate 113 H 114 H 113 H Pulse Rate [ From Monitor] Respiratory 24 26 H 21 Rate Blood Pressure 127/79 130/77 127/79 O2 Sat by Pulse 100 100 100 Oximetry 10/16/18 10/16/18 10/16/18 01:30 01:45 02:00 Temperature Pulse Rate 114 H 114 H 116 H Pulse Rate [ From Monitor] Respiratory 21 21 24 Rate Blood Pressure 124/77 131/78 145/85 O2 Sat by Pulse 100 100 100 Oximetry 10/16/18 10/16/18 10/16/18 02:15 02:30 02:45 Temperature Pulse Rate 115 H 115 H 117 H Pulse Rate [ From Monitor] Respiratory 22 25 H 24 Rate Blood Pressure 125/82 135/84 139/84 O2 Sat by Pulse 100 100 100 Oximetry 10/16/18 10/16/18 10/16/18 03:00 03:15 03:22 Temperature Pulse Rate 117 H 118 H 459 H Pulse Rate [ From Monitor] Respiratory 26 H 27 H 29 H Rate Blood Pressure 137/88 138/86 138/89 O2 Sat by Pulse 100 100 100 Oximetry 10/16/18 10/16/18 10/16/18 03:30 03:32 03:45 Temperature 100 F H Pulse Rate 119 H 118 H Pulse Rate [ From Monitor] Respiratory 26 H 26 H Rate Blood Pressure 143/91 141/83 O2 Sat by Pulse 100 100 Oximetry 10/16/18 10/16/18 10/16/18 04:00 04:15 04:30 Temperature Pulse Rate 119 H 124 H 117 H Pulse Rate [ 120 H From Monitor] Respiratory 26 H 16 24 Rate Blood Pressure 141/78 151/99 135/83 O2 Sat by Pulse 100 100 100 Oximetry 10/16/18 10/16/18 10/16/18 04:45 05:00 05:15 Temperature Pulse Rate 119 H 121 H 120 H Pulse Rate [ From Monitor] Respiratory 28 H 25 H 23 Rate Blood Pressure 128/80 142/89 142/79 O2 Sat by Pulse 100 100 100 Oximetry 10/16/18 10/16/18 10/16/18 05:30 05:45 06:00 Temperature Pulse Rate 121 H 122 H 120 H Pulse Rate [ From Monitor] Respiratory 26 H 30 H 25 H Rate Blood Pressure 140/80 146/80 139/91 O2 Sat by Pulse 100 100 100 Oximetry 10/16/18 10/16/18 10/16/18 07:31 07:50 08:11 Temperature 100.5 F H Pulse Rate 122 H Pulse Rate [ From Monitor] Respiratory 24 Rate Blood Pressure 149/81 O2 Sat by Pulse 100 100 Oximetry - General Appearance General appearance: well-developed, well-nourished, appears stated age EENT: PERRL, mucous membranes moist Neck: no JVD, no thyromegaly, no carotid bruit, supple Respiratory: Present: Clear to Ascultation Cardiology: regular, normal heart rate Gastrointestinal: normoactive bowel sounds, other (suprapubic tube in place) Integumentary: other (no edema. Right femoral Vas-Cath in place) - Lab 10/16/18 04:07 10/16/18 04:07 Most recent lab results Calcium 8.5 mg/dL (8.4-10.2) 10/16/18 04:07 Phosphorus 5.10 mg/dL (2.5-4.5) H 10/12/18 04:57 Magnesium 2.50 mg/dL (1.7-2.3) H 10/12/18 04:57 Urine Creatinine 30.8 mg/dL (0.1-20.0) H 10/13/18 04:43 Urine Sodium 106 mmol/L 10/13/18 04:43 Urine Total Protein 75 mg/dL (5-11.8) H 10/13/18 04:43 Medications & Allergies - Medications Allergies/Adverse Reactions: Allergies Sulfa (Sulfonamide Antibiotics) Allergy (Verified 10/10/18 16:54) Unknown Home Medications: Home Medications Medication Instructions Recorded Confirmed Last Taken Type Acetaminophen [Tylenol] 1,000 mg PO Q6HR 10/10/18 10/10/18 Unknown History Amlodipine Besylate [Norvasc] 10 mg PO QDAY 10/10/18 10/10/18 Unknown History Aspirin [Adult Aspirin] 81 mg PO DAILY 10/10/18 10/10/18 Unknown History Atorvastatin [Lipitor Tab] 80 mg PO DAILY 10/10/18 10/10/18 Unknown History Losartan [Cozaar] 100 mg PO QDAY 10/10/18 10/10/18 Unknown History Multivitamin [Multiple Vitamins] 1 each PO DAILY 10/10/18 10/10/18 Unknown History hydroCHLOROthiazide [HCTZ] 25 mg PO QDAY 10/10/18 10/10/18 Unknown History Active Medications: Generic Name Dose Route Start Last Admin Trade Name Freq PRN Reason Stop Dose Admin Albuterol 2.5 mg 10/10/18 18:12 Proventil IH Q3HRT PRN Shortness Of Breath Amlodipine Besylate 10 mg 10/11/18 10:00 10/15/18 10:23 Norvasc PO 10 mg QDAY RUBI Administration Lipase/Protease/Amylase 1 each 10/11/18 12:[address] 10,500 Unit FEEDTUBE PRN PRN For Clogged Feeding Tube Atovaquone 750 mg 10/11/18 15:00 10/15/18 21:09 Mepron PO 750 mg BID RUBI Administration Carvedilol 6.25 mg 10/15/18 11:00 10/15/18 21:09 Coreg PO 6.25 mg BID RUBI Administration Haloperidol Lactate 5 mg 10/13/18 19:45 10/15/18 11:13 Haldol IV 5 mg Q6H PRN Administration Agitation Hydralazine HCl 10 mg 10/12/18 15:50 10/15/18 06:14 Apresoline IV 10 mg Q4HR PRN Administration SBP>175 or DBP>115 Hydrophilic Ointment 1 applic 10/10/18 17:53 Vaseline Lip Therapy TP Q2HR PRN Dry Lips Penicillin G Potassium 12 mil. 250 mls @ 20.833 mls/hr 10/12/18 14:00 10/16/18 05:09 units/ Sodium Chloride IV 20.833 mls/hr Q12H RUBI Administration Ganciclovir Sodium 80 mg/ 250 mls @ 100 mls/hr 10/15/18 20:00 10/15/18 22:17 Sodium Chloride IV 100 mls/hr MoWeFr RUBI Administration Sodium Chloride 100 mls @ 999 mls/hr 10/15/18 09:00 Nacl 0.9% IV CHON PRN Hypotension Lansoprazole 30 mg 10/15/18 10:00 10/15/18 21:08 Prevacid Solutab FEEDTUBE 30 mg BID RUBI Administration Lorazepam 1 mg 10/13/18 19:48 10/16/18 05:23 Ativan IV 1 mg Q4H PRN Administration agitation Multi-Ingred Cream/Lotion/Oil/Oint 1 applic 10/10/18 17:53 Artificial Tears Ophth Oint OU Q4HR PRN Dry Eye(s) Multivitamins 1 each 10/11/18 10:00 10/15/18 10:23 Theragran Tab PO 1 each DAILY RUBI Administration Simple Syrup 15 ml 10/11/18 12:58 Simple Syrup FEEDTUBE PRN PRN Hypoglycemia Simple Syrup 30 ml 10/11/18 12:58 Simple Syrup FEEDTUBE PRN PRN Hypoglycemia Sodium Bicarbonate 325 mg 10/11/18 12:58 Sodium Bicarbonate FEEDTUBE PRN PRN For Clogged Feeding Tube Sodium Chloride 10 ml 10/10/18 22:00 10/16/18 05:11 Sodium Chloride Flush Syringe 10 Ml IV Not Given BID RUBI Sodium Chloride 10 ml 10/10/18 18:12 Sodium Chloride Flush Syringe 10 Ml IV PRN PRN LINE FLUSH
--- NOTE | 2018-10-16 08:51 | Progress Note ---
Assessment and Plan Acute respiratory failure. Status post extubation yesterday. Bedside Oximetry 100%, on nasal cannula Sepsis. Currently still with low-grade fever this morning Severe anemia. Being transfused. Chest is clear no chest congestion noted at the present time. HIV Acute/chronic renal failure AMS Recommendations Transfuse PRBC to maintain hemoglobin > 7 carefully monitor for chest congestion. Per nursing request wouldn't initiate acetaminophen for fever Continue current oxygen support Continue antibiotics, follow-up with ID recommendations. No additional data on cultures Continue by mouth gastric tube feedings for now. If he is able to swallow later normally from more alert would proceed with more regular diet Discussed with patient's family in detail. All questions answered. Critical care time was 31 minutes of [id number] evaluation and coordination of care Subjective Date of service: 10/16/18 Principal diagnosis: low plt, sepsis, HIV Interval history: Extubated and somnolent but arousable. Talk to family according to mom Objective Vital Signs - 12hr 10/15/18 10/15/18 10/15/18 21:00 21:09 21:10 Temperature Pulse Rate 119 H 116 H 116 H Pulse Rate [ From Monitor] Respiratory 25 H 22 Rate Blood Pressure 115/78 115/78 115/78 O2 Sat by Pulse 100 100 Oximetry 10/15/18 10/15/18 10/15/18 21:20 21:30 21:40 Temperature Pulse Rate 118 H 119 H 119 H Pulse Rate [ From Monitor] Respiratory 26 H 26 H 25 H Rate Blood Pressure 115/78 121/75 121/75 O2 Sat by Pulse 100 100 100 Oximetry 10/15/18 10/15/18 10/15/18 21:50 22:00 22:10 Temperature Pulse Rate 114 H 109 H 113 H Pulse Rate [ From Monitor] Respiratory 23 23 23 Rate Blood Pressure 121/75 104/67 104/67 O2 Sat by Pulse 100 100 100 Oximetry 10/15/18 10/15/18 10/15/18 22:20 22:30 22:40 Temperature Pulse Rate 117 H 116 H 119 H Pulse Rate [ From Monitor] Respiratory 23 23 24 Rate Blood Pressure 104/67 113/72 113/72 O2 Sat by Pulse 100 100 100 Oximetry 10/15/18 10/15/18 10/15/18 22:50 23:00 23:10 Temperature Pulse Rate 120 H 121 H 113 H Pulse Rate [ From Monitor] Respiratory 27 H 29 H 21 Rate Blood Pressure 128/83 131/85 131/85 O2 Sat by Pulse 100 100 100 Oximetry 10/15/18 10/15/18 10/15/18 23:15 23:29 23:30 Temperature Pulse Rate 112 H 113 H 112 H Pulse Rate [ From Monitor] Respiratory 24 24 22 Rate Blood Pressure 116/76 116/76 117/74 O2 Sat by Pulse 100 100 100 Oximetry 10/15/18 10/15/18 10/15/18 23:34 23:35 23:45 Temperature 99.7 F H Pulse Rate 113 H 114 H 113 H Pulse Rate [ From Monitor] Respiratory 27 H 26 H 27 H Rate Blood Pressure 117/74 117/74 124/77 O2 Sat by Pulse 100 100 100 Oximetry 10/16/18 10/16/18 10/16/18 00:00 00:15 00:30 Temperature Pulse Rate 111 H 111 H 111 H Pulse Rate [ 119 H From Monitor] Respiratory 24 22 23 Rate Blood Pressure 123/74 125/74 120/72 O2 Sat by Pulse 100 100 100 Oximetry 10/16/18 10/16/18 10/16/18 00:45 01:00 01:15 Temperature Pulse Rate 113 H 114 H 113 H Pulse Rate [ From Monitor] Respiratory 24 26 H 21 Rate Blood Pressure 127/79 130/77 127/79 O2 Sat by Pulse 100 100 100 Oximetry 10/16/18 10/16/18 10/16/18 01:30 01:45 02:00 Temperature Pulse Rate 114 H 114 H 116 H Pulse Rate [ From Monitor] Respiratory 21 21 24 Rate Blood Pressure 124/77 131/78 145/85 O2 Sat by Pulse 100 100 100 Oximetry 10/16/18 10/16/18 10/16/18 02:15 02:30 02:45 Temperature Pulse Rate 115 H 115 H 117 H Pulse Rate [ From Monitor] Respiratory 22 25 H 24 Rate Blood Pressure 125/82 135/84 139/84 O2 Sat by Pulse 100 100 100 Oximetry 10/16/18 10/16/18 10/16/18 03:00 03:15 03:22 Temperature Pulse Rate 117 H 118 H 459 H Pulse Rate [ From Monitor] Respiratory 26 H 27 H 29 H Rate Blood Pressure 137/88 138/86 138/89 O2 Sat by Pulse 100 100 100 Oximetry 10/16/18 10/16/1819 03:30 03:32 03:45 Temperature 100 F H Pulse Rate 119 H 118 H Pulse Rate [ From Monitor] Respiratory 26 H 26 H Rate Blood Pressure 143/91 141/83 O2 Sat by Pulse 100 100 Oximetry 10/16/18 10/16/18 10/16/18 04:00 04:15 04:30 Temperature Pulse Rate 119 H 124 H 117 H Pulse Rate [ 120 H From Monitor] Respiratory 26 H 16 24 Rate Blood Pressure 141/78 151/99 135/83 O2 Sat by Pulse 100 100 100 Oximetry 10/16/18 10/16/18 10/16/18 04:45 05:00 05:15 Temperature Pulse Rate 119 H 121 H 120 H Pulse Rate [ From Monitor] Respiratory 28 H 25 H 23 Rate Blood Pressure 128/80 142/89 142/79 O2 Sat by Pulse 100 100 100 Oximetry 10/16/18 10/16/18 10/16/18 05:30 05:45 06:00 Temperature Pulse Rate 121 H 122 H 120 H Pulse Rate [ From Monitor] Respiratory 26 H 30 H 25 H Rate Blood Pressure 140/80 146/80 139/91 O2 Sat by Pulse 100 100 100 Oximetry 10/16/18 10/16/18 10/16/18 07:31 07:50 08:11 Temperature 100.5 F H Pulse Rate 122 H Pulse Rate [ From Monitor] Respiratory 24 Rate Blood Pressure 149/81 O2 Sat by Pulse 100 100 Oximetry Constitutional: no acute distress, asleep Eyes: non-icteric Neck: supple Effort: mildly labored Ascultation: Bilateral: clear, diminished breath sounds Percussion: Bilateral: not dull Cardiovascular: regular rate and rhythm (sinus tach) Gastrointestinal: normoactive bowel sounds, other (now with suprapubic catheter) Extremities: no cyanosis, no edema Neurologic: unable to assess CBC and BMP: 10/16/18 04:07 10/16/18 04:07 ABG, PT/INR, D-dimer: ABG POC ABG pH 7.552 (7.35-7.45) H 10/15/18 19:22 POC ABG pCO2 34.8 (35-45) L 10/15/18 19:22 POC ABG pO2 195 (80-105) H 10/15/18 19:22 POC ABG HCO3 30.6 10/15/18 19:22 POC ABG Total CO2 32 10/15/18 19:22 POC ABG O2 Sat 100 10/15/18 19:22 PT/INR, D-dimer PT 14.5 Sec. (12.2-14.9) 10/15/18 00:59 INR 1.06 (0.87-1.13) 10/15/18 00:59 Abnormal lab findings: Abnormal Labs 10/10/18 10/10/18 10/10/18 15:02 15:02 15:02 WBC RBC 2.38 L Hgb 8.1 L Hct 24.9 L MCV 105 H MCH 34 H MCHC RDW 21.4 H Plt Count 20 L Seg Neuts % (Manual) 84.0 H Lymphocytes % (Manual) 8.0 L Monocytes % (Manual) Basophils % (Manual) Nucleated RBC % Seg Neutrophils # Man 7.8 H Lymphocytes # (Manual) 0.7 L Basophils # (Manual) PT 16.2 H INR 1.22 H POC ABG pH POC ABG pCO2 POC ABG pO2 Sodium 136 L Potassium Chloride 88.2 L Carbon Dioxide 8 L* BUN 70 H Creatinine 5.6 H Glucose 331 H POC Glucose Lactic Acid Uric Acid Calcium Phosphorus Magnesium TIBC Ferritin Total Bilirubin Direct Bilirubin AST ALT Alkaline Phosphatase Lactate Dehydrogenase Troponin T 0.298 H* NT-Pro-B Natriuret Pep Total Protein Albumin Triglycerides 329 H Cholesterol 234 H LDL Cholesterol Direct 139 H Vitamin B12 Urine Creatinine Urine Total Protein T.pallidum Ab (FTA-ABS) HIV-1 RNA PCR copies/ml HIV-1 RNA (PCR) log Crossmatch 10/10/18 10/10/18 10/10/18 15:05 15:29 15:42 WBC RBC Hgb Hct MCV MCH MCHC RDW Plt Count Seg Neuts % (Manual) Lymphocytes % (Manual) Monocytes % (Manual) Basophils % (Manual) Nucleated RBC % Seg Neutrophils # Man Lymphocytes # (Manual) Basophils # (Manual) PT INR POC ABG pH POC ABG pCO2 POC ABG pO2 Sodium Potassium Chloride Carbon Dioxide BUN Creatinine Glucose POC Glucose 274 H Lactic Acid 17.90 H* Uric Acid Calcium Phosphorus Magnesium TIBC Ferritin Total Bilirubin Direct Bilirubin AST ALT Alkaline Phosphatase Lactate Dehydrogenase Troponin T NT-Pro-B Natriuret Pep Total Protein Albumin Triglycerides Cholesterol LDL Cholesterol Direct Vitamin B12 Urine Creatinine Urine Total Protein T.pallidum Ab (FTA-ABS) HIV-1 RNA PCR copies/ml HIV-1 RNA (PCR) log Crossmatch See Detail 10/10/18 10/10/18 10/10/18 15:42 16:22 16:54 WBC RBC Hgb Hct MCV MCH MCHC RDW Plt Count Seg Neuts % (Manual) Lymphocytes % (Manual) Monocytes % (Manual) Basophils % (Manual) Nucleated RBC % Seg Neutrophils # Man Lymphocytes # (Manual) Basophils # (Manual) PT INR POC ABG pH POC ABG pCO2 9.0 L POC ABG pO2 140 H Sodium Potassium Chloride Carbon Dioxide BUN Creatinine Glucose POC Glucose Lactic Acid Uric Acid Calcium Phosphorus Magnesium TIBC Ferritin Total Bilirubin 1.50 H Direct Bilirubin 0.4 H AST 105 H ALT Alkaline Phosphatase Lactate Dehydrogenase 2342 H Troponin T NT-Pro-B Natriuret Pep 50656 H Total Protein 9.2 H Albumin Triglycerides Cholesterol LDL Cholesterol Direct Vitamin B12 Urine Creatinine Urine Total Protein T.pallidum Ab (FTA-ABS) HIV-1 RNA PCR copies/ml HIV-1 RNA (PCR) log Crossmatch 10/10/18 10/10/18 10/10/18 17:08 18:07 18:24 WBC RBC Hgb Hct MCV MCH MCHC RDW Plt Count Seg Neuts % (Manual) Lymphocytes % (Manual) Monocytes % (Manual) Basophils % (Manual) Nucleated RBC % Seg Neutrophils # Man Lymphocytes # (Manual) Basophils # (Manual) PT INR POC ABG pH 7.172 L POC ABG pCO2 POC ABG pO2 533 H Sodium Potassium Chloride Carbon Dioxide BUN Creatinine Glucose POC Glucose Lactic Acid 14.80 H* Uric Acid Calcium Phosphorus Magnesium TIBC Ferritin Total Bilirubin Direct Bilirubin AST ALT Alkaline Phosphatase Lactate Dehydrogenase Troponin T 0.272 H* NT-Pro-B Natriuret Pep Total Protein Albumin Triglycerides Cholesterol LDL Cholesterol Direct Vitamin B12 Urine Creatinine Urine Total Protein T.pallidum Ab (FTA-ABS) HIV-1 RNA PCR copies/ml HIV-1 RNA (PCR) log Crossmatch 10/10/18 10/10/18 10/10/18 19:58 20:54 20:54 WBC RBC Hgb Hct MCV MCH MCHC RDW Plt Count Seg Neuts % (Manual) Lymphocytes % (Manual) Monocytes % (Manual) Basophils % (Manual) Nucleated RBC % Seg Neutrophils # Man Lymphocytes # (Manual) Basophils # (Manual) PT INR POC ABG pH POC ABG pCO2 POC ABG pO2 Sodium Potassium Chloride Carbon Dioxide BUN Creatinine Glucose POC Glucose Lactic Acid 11.50 H* 2.90 H* 2.90 H* Uric Acid Calcium Phosphorus Magnesium TIBC Ferritin Total Bilirubin Direct Bilirubin AST ALT Alkaline Phosphatase Lactate Dehydrogenase Troponin T NT-Pro-B Natriuret Pep Total Protein Albumin Triglycerides Cholesterol LDL Cholesterol Direct Vitamin B12 Urine Creatinine Urine Total Protein T.pallidum Ab (FTA-ABS) HIV-1 RNA PCR copies/ml HIV-1 RNA (PCR) log Crossmatch 10/10/18 10/10/18 10/11/18 22:43 23:55 02:44 WBC RBC Hgb Hct MCV MCH MCHC RDW Plt Count Seg Neuts % (Manual) Lymphocytes % (Manual) Monocytes % (Manual) Basophils % (Manual) Nucleated RBC % Seg Neutrophils # Man Lymphocytes # (Manual) Basophils # (Manual) PT INR POC ABG pH POC ABG pCO2 25.9 L POC ABG pO2 192 H Sodium Potassium Chloride Carbon Dioxide BUN Creatinine Glucose POC Glucose Lactic Acid 4.60 H* 5.40 H* Uric Acid Calcium Phosphorus Magnesium TIBC Ferritin Total Bilirubin Direct Bilirubin AST ALT Alkaline Phosphatase Lactate Dehydrogenase Troponin T NT-Pro-B Natriuret Pep Total Protein Albumin Triglycerides Cholesterol LDL Cholesterol Direct Vitamin B12 Urine Creatinine Urine Total Protein T.pallidum Ab (FTA-ABS) HIV-1 RNA PCR copies/ml HIV-1 RNA (PCR) log Crossmatch 10/11/18 10/11/18 10/11/18 02:55 02:55 03:34 WBC RBC 2.35 L Hgb 7.7 L Hct 22.9 L MCV 98 H MCH 33 H MCHC RDW 19.9 H Plt Count 23 L Seg Neuts % (Manual) 75.0 H Lymphocytes % (Manual) 11.0 L Monocytes % (Manual) Basophils % (Manual) Nucleated RBC % Seg Neutrophils # Man Lymphocytes # (Manual) 1.0 L Basophils # (Manual) PT INR POC ABG pH POC ABG pCO2 POC ABG pO2 Sodium Potassium 5.3 H D Chloride Carbon Dioxide 14 L BUN 74 H Creatinine 5.4 H Glucose 126 H POC Glucose Lactic Acid 5.30 H* Uric Acid Calcium 7.8 L D Phosphorus Magnesium TIBC Ferritin Total Bilirubin 1.90 H Direct Bilirubin AST 306 H ALT 89 H Alkaline Phosphatase 246 H Lactate Dehydrogenase Troponin T NT-Pro-B Natriuret Pep Total Protein Albumin 3.4 L Triglycerides Cholesterol LDL Cholesterol Direct Vitamin B12 Urine Creatinine Urine Total Protein T.pallidum Ab (FTA-ABS) HIV-1 RNA PCR copies/ml HIV-1 RNA (PCR) log Crossmatch 10/11/18 10/11/18 10/11/18 03:34 05:47 05:48 WBC RBC Hgb Hct MCV MCH MCHC RDW Plt Count Seg Neuts % (Manual) Lymphocytes % (Manual) Monocytes % (Manual) Basophils % (Manual) Nucleated RBC % Seg Neutrophils # Man Lymphocytes # (Manual) Basophils # (Manual) PT INR POC ABG pH 7.491 H POC ABG pCO2 24.9 L POC ABG pO2 166 H Sodium Potassium 5.2 H Chloride Carbon Dioxide 16 L BUN 80 H Creatinine 5.5 H Glucose 63 L POC Glucose Lactic Acid 3.80 H* Uric Acid Calcium 7.9 L Phosphorus Magnesium TIBC Ferritin Total Bilirubin Direct Bilirubin AST ALT Alkaline Phosphatase Lactate Dehydrogenase Troponin T NT-Pro-B Natriuret Pep Total Protein Albumin Triglycerides Cholesterol LDL Cholesterol Direct Vitamin B12 Urine Creatinine Urine Total Protein T.pallidum Ab (FTA-ABS) HIV-1 RNA PCR copies/ml HIV-1 RNA (PCR) log Crossmatch 10/11/18 10/11/18 10/11/18 09:56 17:34 17:34 WBC RBC Hgb Hct MCV MCH MCHC RDW Plt Count Seg Neuts % (Manual) Lymphocytes % (Manual) Monocytes % (Manual) Basophils % (Manual) Nucleated RBC % Seg Neutrophils # Man Lymphocytes # (Manual) Basophils # (Manual) PT INR POC ABG pH POC ABG pCO2 POC ABG pO2 Sodium Potassium 3.4 L D Chloride Carbon Dioxide 17 L BUN 97 H Creatinine 7.3 H Glucose 135 H POC Glucose Lactic Acid 2.60 H* 2.30 H* Uric Acid Calcium 7.9 L Phosphorus 5.80 H Magnesium 2.70 H TIBC Ferritin Total Bilirubin Direct Bilirubin AST ALT Alkaline Phosphatase Lactate Dehydrogenase Troponin T NT-Pro-B Natriuret Pep Total Protein Albumin Triglycerides Cholesterol LDL Cholesterol Direct Vitamin B12 Urine Creatinine Urine Total Protein T.pallidum Ab (FTA-ABS) HIV-1 RNA PCR copies/ml HIV-1 RNA (PCR) log Crossmatch 10/11/18 10/11/18 10/11/18 17:35 17:36 17:36 WBC RBC Hgb Hct MCV MCH MCHC RDW Plt Count Seg Neuts % (Manual) Lymphocytes % (Manual) Monocytes % (Manual) Basophils % (Manual) Nucleated RBC % Seg Neutrophils # Man Lymphocytes # (Manual) Basophils # (Manual) PT INR POC ABG pH POC ABG pCO2 POC ABG pO2 Sodium Potassium Chloride Carbon Dioxide BUN Creatinine Glucose POC Glucose Lactic Acid Uric Acid 13.4 H Calcium Phosphorus Magnesium TIBC 236 L Ferritin 56286.0 H Total Bilirubin Direct Bilirubin AST ALT Alkaline Phosphatase Lactate Dehydrogenase Troponin T NT-Pro-B Natriuret Pep Total Protein Albumin Triglycerides Cholesterol LDL Cholesterol Direct Vitamin B12 Urine Creatinine Urine Total Protein T.pallidum Ab (FTA-ABS) HIV-1 RNA PCR copies/ml 645164 H HIV-1 RNA (PCR) log 5.51 H Crossmatch 10/11/18 10/11/18 10/11/18 19:21 20:08 21:32 WBC RBC Hgb Hct MCV MCH MCHC RDW Plt Count Seg Neuts % (Manual) Lymphocytes % (Manual) Monocytes % (Manual) Basophils % (Manual) Nucleated RBC % Seg Neutrophils # Man Lymphocytes # (Manual) Basophils # (Manual) PT INR POC ABG pH POC ABG pCO2 POC ABG pO2 Sodium Potassium Chloride Carbon Dioxide 16 L BUN 99 H Creatinine 8.1 H Glucose 147 H POC Glucose Lactic Acid 2.60 H* 2.60 H* Uric Acid Calcium 7.7 L Phosphorus Magnesium 2.60 H TIBC Ferritin Total Bilirubin Direct Bilirubin AST ALT Alkaline Phosphatase Lactate Dehydrogenase Troponin T NT-Pro-B Natriuret Pep Total Protein Albumin Triglycerides Cholesterol LDL Cholesterol Direct Vitamin B12 Urine Creatinine Urine Total Protein T.pallidum Ab (FTA-ABS) HIV-1 RNA PCR copies/ml HIV-1 RNA (PCR) log Crossmatch 10/11/18 10/12/18 10/12/18 23:01 04:29 04:57 WBC 15.0 H RBC 1.75 L Hgb 5.6 L* Hct 16.7 L* D MCV 95 H MCH MCHC RDW 20.7 H Plt Count 49 L D Seg Neuts % (Manual) 90.0 H Lymphocytes % (Manual) 4.0 L Monocytes % (Manual) Basophils % (Manual) Nucleated RBC % 12.0 H Seg Neutrophils # Man 12.3 H Lymphocytes # (Manual) 0.5 L Basophils # (Manual) PT INR POC ABG pH 7.493 H POC ABG pCO2 23.1 L POC ABG pO2 176 H Sodium Potassium Chloride Carbon Dioxide BUN Creatinine Glucose POC Glucose Lactic Acid 3.20 H* Uric Acid Calcium Phosphorus Magnesium TIBC Ferritin Total Bilirubin Direct Bilirubin AST ALT Alkaline Phosphatase Lactate Dehydrogenase Troponin T NT-Pro-B Natriuret Pep Total Protein Albumin Triglycerides Cholesterol LDL Cholesterol Direct Vitamin B12 Urine Creatinine Urine Total Protein T.pallidum Ab (FTA-ABS) HIV-1 RNA PCR copies/ml HIV-1 RNA (PCR) log Crossmatch 10/12/18 10/12/18 10/12/18 04:57 04:57 06:43 WBC RBC Hgb 5.8 L* Hct 17.2 L* MCV MCH MCHC RDW Plt Count Seg Neuts % (Manual) Lymphocytes % (Manual) Monocytes % (Manual) Basophils % (Manual) Nucleated RBC % Seg Neutrophils # Man Lymphocytes # (Manual) Basophils # (Manual) PT 18.0 H INR 1.39 H POC ABG pH POC ABG pCO2 POC ABG pO2 Sodium Potassium 3.0 L D Chloride Carbon Dioxide 15 L BUN 102 H Creatinine 8.8 H Glucose 110 H POC Glucose Lactic Acid Uric Acid Calcium 7.6 L Phosphorus 5.10 H Magnesium 2.50 H TIBC Ferritin Total Bilirubin Direct Bilirubin AST 667 H ALT 298 H Alkaline Phosphatase 154 H Lactate Dehydrogenase Troponin T NT-Pro-B Natriuret Pep Total Protein Albumin 2.8 L Triglycerides Cholesterol LDL Cholesterol Direct Vitamin B12 Urine Creatinine Urine Total Protein T.pallidum Ab (FTA-ABS) HIV-1 RNA PCR copies/ml HIV-1 RNA (PCR) log Crossmatch 10/12/18 10/12/18 10/13/18 14:05 Unknown 03:40 WBC 14.0 H 11.5 H RBC 2.76 L 2.58 L Hgb 8.7 L 8.2 L Hct 25.1 L D 22.9 L MCV MCH MCHC 35 H 36 H RDW 19.0 H 19.5 H Plt Count 53 L 123 L D Seg Neuts % (Manual) 93.0 H Lymphocytes % (Manual) 5.0 L 0 L Monocytes % (Manual) Basophils % (Manual) Nucleated RBC % 40.0 H 44.0 H Seg Neutrophils # Man 9.0 H 10.7 H Lymphocytes # (Manual) 0.7 L 0.0 L Basophils # (Manual) PT INR POC ABG pH POC ABG pCO2 POC ABG pO2 Sodium Potassium Chloride Carbon Dioxide BUN Creatinine Glucose POC Glucose Lactic Acid Uric Acid Calcium Phosphorus Magnesium TIBC Ferritin Total Bilirubin Direct Bilirubin AST ALT Alkaline Phosphatase Lactate Dehydrogenase Troponin T NT-Pro-B Natriuret Pep Total Protein Albumin Triglycerides Cholesterol LDL Cholesterol Direct Vitamin B12 Urine Creatinine Urine Total Protein T.pallidum Ab (FTA-ABS) Reactive H HIV-1 RNA PCR copies/ml HIV-1 RNA (PCR) log Crossmatch 10/13/18 10/13/18 10/13/18 03:40 03:40 04:10 WBC RBC Hgb Hct MCV MCH MCHC RDW Plt Count Seg Neuts % (Manual) Lymphocytes % (Manual) Monocytes % (Manual) Basophils % (Manual) Nucleated RBC % Seg Neutrophils # Man Lymphocytes # (Manual) Basophils # (Manual) PT 15.6 H INR 1.17 H POC ABG pH 7.522 H POC ABG pCO2 29.1 L POC ABG pO2 132 H Sodium Potassium 3.3 L Chloride Carbon Dioxide 21 L BUN 51 H Creatinine 5.7 H Glucose 140 H POC Glucose Lactic Acid Uric Acid Calcium 7.9 L Phosphorus Magnesium TIBC Ferritin Total Bilirubin Direct Bilirubin AST 367 H ALT 238 H Alkaline Phosphatase 134 H Lactate Dehydrogenase Troponin T NT-Pro-B Natriuret Pep Total Protein 6.2 L Albumin 2.5 L Triglycerides Cholesterol LDL Cholesterol Direct Vitamin B12 Urine Creatinine Urine Total Protein T.pallidum Ab (FTA-ABS) HIV-1 RNA PCR copies/ml HIV-1 RNA (PCR) log Crossmatch 10/13/18 10/14/18 10/14/18 04:43 04:34 04:34 WBC RBC 2.47 L Hgb 7.7 L Hct 21.9 L MCV MCH MCHC 35 H RDW 21.2 H Plt Count 40 L Seg Neuts % (Manual) Lymphocytes % (Manual) Monocytes % (Manual) Basophils % (Manual) Nucleated RBC % Seg Neutrophils # Man Lymphocytes # (Manual) Basophils # (Manual) PT INR POC ABG pH POC ABG pCO2 POC ABG pO2 Sodium Potassium Chloride Carbon Dioxide BUN 35 H Creatinine 5.2 H Glucose 144 H POC Glucose Lactic Acid Uric Acid Calcium Phosphorus Magnesium TIBC Ferritin Total Bilirubin Direct Bilirubin AST ALT Alkaline Phosphatase Lactate Dehydrogenase Troponin T NT-Pro-B Natriuret Pep Total Protein Albumin Triglycerides Cholesterol LDL Cholesterol Direct Vitamin B12 Urine Creatinine 30.8 H Urine Total Protein 75 H T.pallidum Ab (FTA-ABS) HIV-1 RNA PCR copies/ml HIV-1 RNA (PCR) log Crossmatch 10/14/18 10/15/18 10/15/18 08:51 03:14 03:14 WBC RBC 2.36 L Hgb 7.5 L Hct 21.1 L MCV MCH MCHC 36 H RDW 21.9 H Plt Count 31 L Seg Neuts % (Manual) Lymphocytes % (Manual) 8.0 L Monocytes % (Manual) 9.0 H Basophils % (Manual) 2.0 H Nucleated RBC % 129.0 H Seg Neutrophils # Man Lymphocytes # (Manual) 0.7 L Basophils # (Manual) 0.2 H PT INR POC ABG pH POC ABG pCO2 POC ABG pO2 Sodium 147 H Potassium Chloride Carbon Dioxide BUN 59 H Creatinine 8.0 H D Glucose 153 H POC Glucose Lactic Acid Uric Acid Calcium 8.3 L Phosphorus Magnesium TIBC Ferritin Total Bilirubin Direct Bilirubin AST 179 H ALT 156 H Alkaline Phosphatase 130 H Lactate Dehydrogenase Troponin T NT-Pro-B Natriuret Pep Total Protein Albumin 2.7 L Triglycerides Cholesterol LDL Cholesterol Direct Vitamin B12 912.3 H Urine Creatinine Urine Total Protein T.pallidum Ab (FTA-ABS) HIV-1 RNA PCR copies/ml HIV-1 RNA (PCR) log Crossmatch 10/15/18 10/16/18 10/16/18 19:22 04:07 04:07 WBC RBC 2.08 L Hgb 6.5 L Hct 18.4 L* MCV MCH MCHC 35 H RDW 22.9 H Plt Count 68 L D Seg Neuts % (Manual) Lymphocytes % (Manual) Monocytes % (Manual) Basophils % (Manual) Nucleated RBC % Seg Neutrophils # Man Lymphocytes # (Manual) Basophils # (Manual) PT INR POC ABG pH 7.552 H POC ABG pCO2 34.8 L POC ABG pO2 195 H Sodium Potassium Chloride Carbon Dioxide BUN Creatinine Glucose POC Glucose Lactic Acid Uric Acid Calcium Phosphorus Magnesium TIBC Ferritin Total Bilirubin Direct Bilirubin AST 136 H ALT 106 H Alkaline Phosphatase Lactate Dehydrogenase Troponin T NT-Pro-B Natriuret Pep Total Protein Albumin 2.7 L Triglycerides Cholesterol LDL Cholesterol Direct Vitamin B12 Urine Creatinine Urine Total Protein T.pallidum Ab (FTA-ABS) HIV-1 RNA PCR copies/ml HIV-1 RNA (PCR) log Crossmatch 10/16/18 04:07 WBC RBC Hgb Hct MCV MCH MCHC RDW Plt Count Seg Neuts % (Manual) Lymphocytes % (Manual) Monocytes % (Manual) Basophils % (Manual) Nucleated RBC % Seg Neutrophils # Man Lymphocytes # (Manual) Basophils # (Manual) PT INR POC ABG pH POC ABG pCO2 POC ABG pO2 Sodium Potassium Chloride Carbon Dioxide BUN 50 H Creatinine 6.2 H Glucose 142 H POC Glucose Lactic Acid Uric Acid Calcium Phosphorus Magnesium TIBC Ferritin Total Bilirubin Direct Bilirubin AST 134 H ALT 107 H Alkaline Phosphatase Lactate Dehydrogenase Troponin T NT-Pro-B Natriuret Pep Total Protein Albumin 2.8 L Triglycerides Cholesterol LDL Cholesterol Direct Vitamin B12 Urine Creatinine Urine Total Protein T.pallidum Ab (FTA-ABS) HIV-1 RNA PCR copies/ml HIV-1 RNA (PCR) log Crossmatch
[2018-10-16] MEDS: PREVACID SOLUTAB FEEDTUBE SCH ×2 (10:11→21:07)
[2018-10-16] MEDS: NORVASC PO SCH (10:11)
[2018-10-16] MEDS: MEPRON PO SCH ×2 (10:12→21:07)
[2018-10-16] MEDS: COREG PO SCH ×2 (10:12→21:10)
[2018-10-16] MEDS: THERAGRAN Tab PO SCH (10:12)
[2018-10-16] MEDS: TYLENOL PO PRN (10:20)
--- NOTE | 2018-10-16 10:33 | Progress Note ---
Assessment and Plan Cultures: Blood culture 10/10/2018 no growth. Sputum culture 10/10/2018 Ana Paula albicans. Crypto Ag 10/10/2018 neg. Urine culture 10/13/2018 no growth. Assessment: 43 y/o male with history of HIV (unknown CD4/VL/ART intake), HTN, CVA 6 months ago at [facility], Nicotine Dependence, Malnutrition; admitted on 10/10/2018 due to AMS (confusion/lethargy) and slurred speech for 24 h: 1) Severe SIRS versus sepsis: continues with fever. Unclear etiology ? aspiration pneumonia +/- opportunistic brain infection - CXR neg - Unable to obtain UA - patient is anuric - BNP 70K - Troponin 0.2 - LDH 2242 2) Acute hypoxemic respiratory failure: for airway protection +/- ? pneumonia. Repeat CXR no consolidations. Ana Paula in tracha sp likely a colonizer. Extubated 10/15 3) Acute encephalopathy: from hypertensive urgency +/- brain opportunistic infection. DDx: Neurosyphilis, VZV/CMV encephalitis, toxoplasma encephalitis versus [employer] lymphoma versus less likely PML - CT head showed bilateral chronic ischemic changes. - Brain MRI showed areas of edema in the basal ganglia and thalami bilaterally, within the jamari and in the cerebral hemispheres bilaterally in the subcortical and deep white matter and in portions of the cortex, areas of encephalomalacia in the basal ganglia bilaterally with evidence of previous hemorrhage or mineral deposition and numerous small foci of acute infarct in the basal ganglia bilaterally, subinsular regions bilaterally and medial temporal lobes bilaterally and possibly in the occipital cortex bilaterally. - RPR reactive 1:32/FTA ABs reactive 4) Anemia/thrombocytopenia ? unclear etiology, worsening 5) Acute on CKD or SHRUTHI ? unclear etiology: r/o rhabdo ?ischemia. Started on HD 6) Elevated lactate ? Lactate 17. 7) DM: uncontrolled 8) Elevated LFTs ? 9) HIV/AIDS: VL 320,000 Recommendations: - needs LP when stable after platelet transfusion discussed with Dr Muñoz / fever continues - LP for opening pressure and send CSF specimen for Gram stain and culture, glucose, protein, VDRL, HSV-PCR, EBV-PCR, EDIE virus PCR, T.gondii PCR, cryptococcal antigen and culture - continue ganciclovir available to cover VZV/CMV D4 - continue on penicillin G continues infusion to cover neurosyphilis D4 - continue meprom 750 MG PO bid (SULFA ALLERGY) for ?PJP - follow-up blood cultures - f/u Toxo IgG, CMV DNA PCR and AFB-blood culture - all pending - f/u CD4 Guarded prognosis unfortunately. Will follow. Praveena Colunga MD Infectious Diseases Clinical Trials Specialist [facility] ([facility]) M [phone] O [phone] Subjective Date of service: 10/16/18 Principal diagnosis: low plt, sepsis, HIV Interval history: patient self extubated last night, lethargic, no follows commands, still tachycardic at 120s, Tmax 100.5 Review of Systems: unable to obtian Objective - Exam Narrative Exam: General appearance: on NC O2 in NAD, unresponsive no follows commands Eyes: anicteric sclerae, moist conjunctivae; no lid-lag; PERRLA HENT: Atraumatic; oropharynx limited Neck: Trachea midline; supple, no thyromegaly or lymphadenopathy Lungs: CTA, with normal respiratory effort and no intercostal retractions CV: tachycardic Abdomen: Soft, non-tender; no masses or hepatosplenomegaly Extremities: No peripheral edema or extremity lymphadenopathy Skin: Normal temperature, turgor and texture; no rash, ulcers or subcutaneous nodules Psych: lethargic Neuro:lethargic - Constitutional Vitals: Vital Signs Temp Pulse Resp BP Pulse Ox 100.5 F H 120 H 32 H 139/86 100 10/16/18 07:31 10/16/18 10:12 10/16/18 09:15 10/16/18 10:12 10/16/18 09:15 Temperature -Last 24 Hours Temperature 100.5 F Temperature 100 F Temperature 99.7 F Temperature 98.9 F Temperature 99.5 F Temperature 98.6 F - Labs CBC & Chem 7: 10/16/18 04:07 10/16/18 04:07 Labs: Abnormal lab results 10/10/18 10/12/18 10/15/18 Range/Units 15:05 Unknown 19:22 RBC (3.65-5.03) M/mm3 Hgb (11.8-15.2) gm/dl Hct (35.5-45.6) % MCHC (32-34) % RDW (13.2-15.2) % Plt Count (140-440) K/mm3 POC ABG pH 7.552 H (7.35-7.45) POC ABG pCO2 34.8 L (35-45) POC ABG pO2 195 H (80-105) BUN (9-20) mg/dL Creatinine (0.8-1.5) mg/dL Glucose (75-100) mg/dL AST (5-40) units/L ALT (7-56) units/L Albumin (3.9-5) g/dL T.pallidum Ab (FTA-ABS) Reactive H (Nonreactive) Crossmatch See Detail 10/16/18 10/16/18 10/16/18 Range/Units 04:07 04:07 04:07 RBC 2.08 L (3.65-5.03) M/mm3 Hgb 6.5 L (11.8-15.2) gm/dl Hct 18.4 L* (35.5-45.6) % MCHC 35 H (32-34) % RDW 22.9 H (13.2-15.2) % Plt Count 68 L D (140-440) K/mm3 POC ABG pH (7.35-7.45) POC ABG pCO2 (35-45) POC ABG pO2 (80-105) BUN 50 H (9-20) mg/dL Creatinine 6.2 H (0.8-1.5) mg/dL Glucose 142 H (75-100) mg/dL AST 136 H 134 H (5-40) units/L ALT 106 H 107 H (7-56) units/L Albumin 2.7 L 2.8 L (3.9-5) g/dL T.pallidum Ab (FTA-ABS) (Nonreactive) Crossmatch 10/16/18 Range/Units 08:31 RBC (3.65-5.03) M/mm3 Hgb (11.8-15.2) gm/dl Hct (35.5-45.6) % MCHC (32-34) % RDW (13.2-15.2) % Plt Count (140-440) K/mm3 POC ABG pH (7.35-7.45) POC ABG pCO2 (35-45) POC ABG pO2 (80-105) BUN (9-20) mg/dL Creatinine (0.8-1.5) mg/dL Glucose (75-100) mg/dL AST (5-40) units/L ALT (7-56) units/L Albumin (3.9-5) g/dL T.pallidum Ab (FTA-ABS) (Nonreactive) Crossmatch See Detail
[2018-10-16] MEDS ORDERED: XYLOCAINE 1% 20 mL ONE ×3 (13:43→13:48)
--- NOTE | 2018-10-16 15:03 | Progress Note ---
Assessment and Plan / Acute encephalopathy Neurology following, likely from possible meningitis?? Vasculitis?? Acute CVA?? LP ordered but pending as pt is not stable enough and has low platelet /Acute resp failure s/p intubated in ED Intubated for airway protection, patient was very lethargic and confused on admission Pulm following, self extubated last night Continue nebs frequent suctioning and supplemental O2 as needed /HIV/AIDS No previous records available ID Physician following /Acute CVA with Bilateral infarcts with edema Consulted Neurology, he was evaluated by DR. Valentine. Could be due to possible vasculitis - further workup pending She does not recommend anti-platelets /SHRUTHI due to ATN patient started on hemodialysis Baseline unknown /Urinary retention Unable to place Ricketts catheter Consulted and called Dr. Paula, urology and he came and placed suprapubic catheter /Severe SIRS vs Sepsis No clear etiology so far - likely from AIDS ? per ID: - needs LP when stable after platelet transfusion as fever continues - LP for opening pressure and send CSF specimen for Gram stain and culture, glucose, protein, VDRL, HSV-PCR, EBV-PCR, EDIE virus PCR, T.gondii PCR, cryptococcal antigen and culture - continue ganciclovir available to cover VZV/CMV D4 - continue on penicillin G continues infusion to cover neurosyphilis D4 - continue meprom 750 MG PO bid (SULFA ALLERGY) for ?PJP - follow-up blood cultures - f/u Toxo IgG, CMV DNA PCR and AFB-blood culture - all pending - f/u CD4 /Thrombocytopenia, Likely from severe sepsis s/p 2 Units platelets transfused, continue to monitor /Anemia, hemoglobin drop Hgb 7.5 after 3 Units PRBC Stool occult blood positive Seen by GI, conservative management /Hyperkalemia, resolved /Elevated LFT, from possible underlying sepsis and HIV - Continue to trend /Hyperlipidemia, low fat TF diet /Hypertensive urgency. Started on cardene drip, wean off as tolerated /Elevated Troponin Likely due to kidney disease, follow 2-D echo Prognosis guarded Full code status brief History patient is 43 YO Male with HIV, hypertension, previous stroke, Nicotine Dependence, presents to ED for evaluation. Patient was confused and lethargic and unable to provide history. He was seen and evaluated in ED and found to be in distress and unable to protect his airway and was therefore intubated, placed on ventilator and admitted to ICU. Patient diagnosed with acute resp failure, renal failure(acute vs acute on chronic) , Encephalopathy, Acidosis. He continues to have fevers, followed by ID Physician for HIV/AIDS. renal failure worsened therefore started on hemodialysis. Hospitalist Physical GEN: Not in acute distress, HEENT: Normocephalic, atraumatic, Neck: supple, No JVD Lungs:Clear to auscultation, no wheeze Heart:S1 and S2 regular, no murmurs, rubs or gallop, Abd:soft, non tender, non distended, normal bowel sounds Ext: No edema, no clubbing or cyanosis Neuro: Follow simple commands, noted to have a right-sided weakness Skin: No rash Musculoskeletal: No joint swelling or tenderness The high probability of a clinically significant, sudden or life threatening deterioration of the [multiple] system(s) required my full and direct attention, intervention and personal management. The aggregate critical care time was [35] minutes. This time is in addition to time spent performing reported procedures but includes the following: [x] Data Review and interpretation [x] Patient assessment and monitoring of vital signs [x] Documentation [x] Medication orders and management Subjective Date of service: 10/16/18 Principal diagnosis: low plt, sepsis, HIV Interval history: Patient seen and examined Self extubated himself last night Continued to spike fever. Discussed with mother at bedside Swallow eval pending, still on tube feeding Objective - Constitutional Vitals: Vital Signs - 12hr 10/16/18 10/16/18 10/16/18 03:15 03:22 03:30 Temperature Pulse Rate 118 H 459 H 119 H Pulse Rate [ From Monitor] Respiratory 27 H 29 H 26 H Rate Blood Pressure 138/86 138/89 143/91 O2 Sat by Pulse 100 100 100 Oximetry 10/16/18 10/16/18 10/16/18 03:32 03:45 04:00 Temperature 100 F H Pulse Rate 118 H 119 H Pulse Rate [ 120 H From Monitor] Respiratory 26 H 26 H Rate Blood Pressure 141/83 141/78 O2 Sat by Pulse 100 100 Oximetry 10/16/18 10/16/18 10/16/18 04:15 04:30 04:45 Temperature Pulse Rate 124 H 117 H 119 H Pulse Rate [ From Monitor] Respiratory 16 24 28 H Rate Blood Pressure 151/99 135/83 128/80 O2 Sat by Pulse 100 100 100 Oximetry 10/16/18 10/16/18 10/16/18 05:00 05:15 05:30 Temperature Pulse Rate 121 H 120 H 121 H Pulse Rate [ From Monitor] Respiratory 25 H 23 26 H Rate Blood Pressure 142/89 142/79 140/80 O2 Sat by Pulse 100 100 100 Oximetry 10/16/18 10/16/18 10/16/18 05:45 06:00 06:15 Temperature Pulse Rate 122 H 120 H 120 H Pulse Rate [ From Monitor] Respiratory 30 H 25 H 22 Rate Blood Pressure 146/80 139/91 136/87 O2 Sat by Pulse 100 100 100 Oximetry 10/16/18 10/16/18 10/16/18 06:30 06:45 07:00 Temperature Pulse Rate 121 H 120 H 123 H Pulse Rate [ From Monitor] Respiratory 28 H 24 29 H Rate Blood Pressure 140/84 143/79 146/83 O2 Sat by Pulse 100 100 100 Oximetry 10/16/18 10/16/18 10/16/18 07:15 07:30 07:31 Temperature 100.5 F H Pulse Rate 121 H 122 H Pulse Rate [ From Monitor] Respiratory 26 H 26 H Rate Blood Pressure 139/88 145/82 O2 Sat by Pulse 100 100 Oximetry 10/16/18 10/16/18 10/16/18 07:45 07:50 08:00 Temperature Pulse Rate 122 H 122 H 124 H Pulse Rate [ From Monitor] Respiratory 29 H 24 26 H Rate Blood Pressure 149/81 149/81 156/89 O2 Sat by Pulse 100 100 96 Oximetry 10/16/18 10/16/18 10/16/18 08:11 08:15 08:30 Temperature Pulse Rate 120 H 121 H Pulse Rate [ From Monitor] Respiratory 28 H 36 H Rate Blood Pressure 135/83 153/89 O2 Sat by Pulse 100 100 100 Oximetry 10/16/18 10/16/18 10/16/18 08:45 09:00 09:15 Temperature Pulse Rate 124 H 121 H 122 H Pulse Rate [ From Monitor] Respiratory 42 H 28 H 32 H Rate Blood Pressure 151/90 146/83 143/89 O2 Sat by Pulse 100 100 100 Oximetry 10/16/18 10/16/18 10/16/18 09:30 09:45 10:00 Temperature Pulse Rate 123 H 122 H 121 H Pulse Rate [ From Monitor] Respiratory 37 H 31 H 29 H Rate Blood Pressure 149/87 147/79 139/86 O2 Sat by Pulse 100 100 100 Oximetry 10/16/18 10/16/18 10/16/18 10:11 10:12 10:15 Temperature Pulse Rate 121 H 120 H 122 H Pulse Rate [ From Monitor] Respiratory 35 H Rate Blood Pressure 139/86 139/86 143/70 O2 Sat by Pulse 100 Oximetry 10/16/18 10/16/18 10/16/18 10:30 10:45 11:00 Temperature Pulse Rate 121 H Pulse Rate [ From Monitor] Respiratory 30 H Rate Blood Pressure 134/65 150/100 147/86 O2 Sat by Pulse 100 100 100 Oximetry 10/16/18 10/16/18 10/16/18 11:15 11:30 11:36 Temperature 100.3 F H Pulse Rate 118 H 116 H Pulse Rate [ From Monitor] Respiratory 25 H 36 H Rate Blood Pressure 148/89 148/90 O2 Sat by Pulse 100 100 Oximetry 10/16/18 10/16/18 10/16/18 11:45 12:00 12:15 Temperature 100.3 F H Pulse Rate 110 H 105 H 104 H Pulse Rate [ From Monitor] Respiratory 22 28 H 32 H Rate Blood Pressure 157/94 128/77 129/71 O2 Sat by Pulse 100 100 100 Oximetry 10/16/18 10/16/18 10/16/18 12:30 12:45 13:00 Temperature Pulse Rate 104 H 104 H 107 H Pulse Rate [ From Monitor] Respiratory 32 H 25 H 25 H Rate Blood Pressure 120/75 122/81 130/77 O2 Sat by Pulse 100 100 100 Oximetry 10/16/18 10/16/18 10/16/18 13:33 13:48 14:18 Temperature 99.8 F H 98.5 F 98.8 F Pulse Rate 105 H 107 H 106 H Pulse Rate [ From Monitor] Respiratory 22 29 H 28 H Rate Blood Pressure 127/78 133/82 140/78 O2 Sat by Pulse 100 107 H 100 Oximetry 10/16/18 14:48 Temperature 98.3 F Pulse Rate 102 H Pulse Rate [ From Monitor] Respiratory 24 Rate Blood Pressure 129/83 O2 Sat by Pulse 99 Oximetry - Labs CBC & Chem 7: 10/17/18 07:53 10/17/18 07:53 Labs: Abnormal lab results 10/10/18 10/12/18 10/15/18 Range/Units 15:05 Unknown 19:22 RBC (3.65-5.03) M/mm3 Hgb (11.8-15.2) gm/dl Hct (35.5-45.6) % MCHC (32-34) % RDW (13.2-15.2) % Plt Count (140-440) K/mm3 POC ABG pH 7.552 H (7.35-7.45) POC ABG pCO2 34.8 L (35-45) POC ABG pO2 195 H (80-105) BUN (9-20) mg/dL Creatinine (0.8-1.5) mg/dL Glucose (75-100) mg/dL POC Glucose (70-105) AST (5-40) units/L ALT (7-56) units/L Albumin (3.9-5) g/dL T.pallidum Ab (FTA-ABS) Reactive H (Nonreactive) Crossmatch See Detail 10/16/18 10/16/18 10/16/18 Range/Units 04:07 04:07 04:07 RBC 2.08 L (3.65-5.03) M/mm3 Hgb 6.5 L (11.8-15.2) gm/dl Hct 18.4 L* (35.5-45.6) % MCHC 35 H (32-34) % RDW 22.9 H (13.2-15.2) % Plt Count 68 L D (140-440) K/mm3 POC ABG pH (7.35-7.45) POC ABG pCO2 (35-45) POC ABG pO2 (80-105) BUN 50 H (9-20) mg/dL Creatinine 6.2 H (0.8-1.5) mg/dL Glucose 142 H (75-100) mg/dL POC Glucose (70-105) AST 136 H 134 H (5-40) units/L ALT 106 H 107 H (7-56) units/L Albumin 2.7 L 2.8 L (3.9-5) g/dL T.pallidum Ab (FTA-ABS) (Nonreactive) Crossmatch 10/16/18 10/16/18 Range/Units 08:31 11:24 RBC (3.65-5.03) M/mm3 Hgb (11.8-15.2) gm/dl Hct (35.5-45.6) % MCHC (32-34) % RDW (13.2-15.2) % Plt Count (140-440) K/mm3 POC ABG pH (7.35-7.45) POC ABG pCO2 (35-45) POC ABG pO2 (80-105) BUN (9-20) mg/dL Creatinine (0.8-1.5) mg/dL Glucose (75-100) mg/dL POC Glucose 144 H (70-105) AST (5-40) units/L ALT (7-56) units/L Albumin (3.9-5) g/dL T.pallidum Ab (FTA-ABS) (Nonreactive) Crossmatch See Detail
[2018-10-16 16:16] LABS: Glucose,CSF 73 mg/dL
[2018-10-16 18:26] LABS: Appearance,CSF Clear
[2018-10-16 20:08] LABS: Total Cells Counted 50 /mm3
[2018-10-16 20:13] LABS: Red Blood Cell,CSF 113 /mm3 (0-0); White Blood Cell,CSF 4 /mm3 (1-10)
[2018-10-16 20:14] LABS: Basophils CSF 0 %
[2018-10-16 21:16] LABS: CD4/CD8 Ratio 0.01 (0.86-5.00)
[2018-10-17] MEDS: PFIZERPEN 12 MIL.UNITS in NACL 0.9% 250ML 250 ML IV SCH ×2 (02:25→16:05)
[2018-10-17] MEDS: TYLENOL PO PRN (08:06)
[2018-10-17] MEDS: HALDOL IV PRN (08:08)
[2018-10-17 08:34] LABS: Red Blood Count 2.86 M/mm3 (3.65-5.03)
[2018-10-17 08:35] LABS: Hematocrit 25.1 % (35.5-45.6); Hemoglobin 8.5 gm/dl (11.8-15.2); Mean Corpuscular HGB Conc 34 % (32-34); Mean Corpuscular Volume 88 fl (84-94); Platelet Count 63 K/mm3 (140-440)
[2018-10-17 08:42] LABS: Calcium 8.4 mg/dL (8.4-10.2)
--- NOTE | 2018-10-17 08:55 | Hem/Onc Progress Note ---
Assessment and Plan 1. Anemia. At admission, hemoglobin was 8.1, later low and s/p Transfusion support. 2. Platelets at admission was 20. 3. White cell count was elevated. 4. PT/INR h/o slightly elevated. 5. Renal failure. 6. ALT elevated. 7. The patient has multiple medical issues. PLAN: I will ask for a smear evaluation. I will call the lab for same. Supportive care in the interim while we looked for primary etiology. 3/ - plt better - s/p transfusion d/w dr rain and dr carrillo 10/14 - low plt - rasta ctive bleed suprapubic catheter 10/15 - plt were rising and again going down' pt had got plt transfusion LDH high - [id number] ordered smear - ordererd LDH may be high in other causes too - renal etc 10/16 - d/w path - not many schistocytes on smear - ADAMTS 13 ordered extubated 10/17 - plt low - path review ordered d/w df bello - Patient Problems (1) Thrombocytopenia associated with AIDS Current Visit: Yes Status: Acute Subjective Date of service: 10/17/18 Principal diagnosis: low plt Interval history: sedated - in restrain Objective - Exam Narrative Exam: sedated- in restrain - Constitutional Vitals: Last Vital Signs Temp 99.0 F 10/17/18 04:00 Pulse 123 H 10/17/18 07:00 Resp 43 H 10/17/18 08:06 BP 157/101 10/17/18 06:30 Pulse Ox 97 10/17/18 08:06 General appearance: no acute distress Performance status: 4-completely disabled - EENT ENT: other (ngt) - Respiratory Respiratory effort: Positive: normal Respiratory: bilateral: diminished (anteriorly) - Cardiovascular Heart Sounds: Present: S1 & S2 Extremities: No edema - Gastrointestinal General gastrointestinal: Present: soft, non-tender Rectal Exam: deferred - Genitourinary Male genitourinary: Present: deferred - Integumentary Integumentary: warm - Musculoskeletal Musculoskeletal: generalized weakness - Labs Lab Results: Laboratory Results - last 24 hr 10/11/18 10/16/18 10/16/18 17:36 08:31 11:24 WBC RBC Hgb Hct MCV MCH MCHC RDW Plt Count Abs Lymphs (Manual) 267 L Sodium Potassium Chloride Carbon Dioxide Anion Gap BUN Creatinine Estimated GFR BUN/Creatinine Ratio Glucose POC Glucose 144 H Calcium CSF Appearance CSF Color CSF WBC CSF RBC CSF Seg Neutrophils CSF Lymphocytes % CSF Reactive Lymphs CSF Monocytes % CSF Eosinophils % CSF Basophils CSF Pathologist Review CSF Glucose CSF Total Protein Lymph Enumerat CD4/CD8 0.01 L % CD3 Cells 85 Absolute CD3 Count 226 L % CD4 Cells 1 L Absolute CD4 Count 3 L % CD8 Cells 82 H Absolute CD8 Count 228 % CD19 Cells 6 Absolute CD19 Count 16 L Blood Type A POSITIVE Antibody Screen Negative Crossmatch See Detail 10/16/18 10/16/18 10/17/18 15:00 15:00 07:53 WBC 14.0 H RBC 2.86 L Hgb 8.5 L Hct 25.1 L D MCV 88 MCH 30 MCHC 34 RDW 19.0 H Plt Count 63 L Abs Lymphs (Manual) Sodium Potassium Chloride Carbon Dioxide Anion Gap BUN Creatinine Estimated GFR BUN/Creatinine Ratio Glucose POC Glucose Calcium CSF Appearance Clear CSF Color Colorless CSF WBC 4 CSF RBC 113 CSF Seg Neutrophils 8.0 CSF Lymphocytes % 76.0 CSF Reactive Lymphs 2.0 CSF Monocytes % 14.0 CSF Eosinophils % 0 CSF Basophils 0 CSF Pathologist Review C CSF Glucose 73 CSF Total Protein 55 Lymph Enumerat CD4/CD8 % CD3 Cells Absolute CD3 Count % CD4 Cells Absolute CD4 Count % CD8 Cells Absolute CD8 Count % CD19 Cells Absolute CD19 Count Blood Type Antibody Screen Crossmatch 10/17/18 07:53 WBC RBC Hgb Hct MCV MCH MCHC RDW Plt Count Abs Lymphs (Manual) Sodium 144 Potassium 4.8 Chloride 101.5 Carbon Dioxide 19 L Anion Gap 28 BUN 89 H Creatinine 9.5 H D Estimated GFR 7 BUN/Creatinine Ratio 9 Glucose 122 H POC Glucose Calcium 8.4 CSF Appearance CSF Color CSF WBC CSF RBC CSF Seg Neutrophils CSF Lymphocytes % CSF Reactive Lymphs CSF Monocytes % CSF Eosinophils % CSF Basophils CSF Pathologist Review CSF Glucose CSF Total Protein Lymph Enumerat CD4/CD8 % CD3 Cells Absolute CD3 Count % CD4 Cells Absolute CD4 Count % CD8 Cells Absolute CD8 Count % CD19 Cells Absolute CD19 Count Blood Type Antibody Screen Crossmatch Medications & Allergies - Medications Allergies/Adverse Reactions: Allergies Sulfa (Sulfonamide Antibiotics) Allergy (Verified 10/10/18 16:54) Unknown Home Medications: Home Medications Medication Instructions Recorded Confirmed Last Taken Type Acetaminophen [Tylenol] 1,000 mg PO Q6HR 10/10/18 10/10/18 Unknown History Amlodipine Besylate [Norvasc] 10 mg PO QDAY 10/10/18 10/10/18 Unknown History Aspirin [Adult Aspirin] 81 mg PO DAILY 10/10/18 10/10/18 Unknown History Atorvastatin [Lipitor Tab] 80 mg PO DAILY 10/10/18 10/10/18 Unknown History Losartan [Cozaar] 100 mg PO QDAY 10/10/18 10/10/18 Unknown History Multivitamin [Multiple Vitamins] 1 each PO DAILY 10/10/18 10/10/18 Unknown History hydroCHLOROthiazide [HCTZ] 25 mg PO QDAY 10/10/18 10/10/18 Unknown History Active Medications: Generic Name Dose Route Start Last Admin Trade Name Freq PRN Reason Stop Dose Admin Acetaminophen 500 mg 10/16/18 10:02 10/17/18 08:06 Tylenol PO 500 mg Q6H PRN Administration Fever >101 Albuterol 2.5 mg 10/10/18 18:12 Proventil IH Q3HRT PRN Shortness Of Breath Amlodipine Besylate 10 mg 10/11/18 10:00 10/16/18 10:11 Norvasc PO 10 mg QDAY RUBI Administration Lipase/Protease/Amylase 1 each 10/11/18 12:58 Pancreaze 10,500 Unit FEEDTUBE PRN PRN For Clogged Feeding Tube Atovaquone 750 mg 10/11/18 15:00 10/16/18 21:07 Mepron PO 750 mg BID RUBI Administration Carvedilol 6.25 mg 10/15/18 11:00 10/16/18 21:10 Coreg PO 6.25 mg BID RUBI Administration Haloperidol Lactate 5 mg 10/13/18 19:45 10/17/18 08:08 Haldol IV 5 mg Q6H PRN Administration Agitation Hydralazine HCl 10 mg 10/12/18 15:50 10/15/18 06:14 Apresoline IV 10 mg Q4HR PRN Administration SBP>175 or DBP>115 Hydrophilic Ointment 1 applic 10/10/18 17:53 Vaseline Lip Therapy TP Q2HR PRN Dry Lips Penicillin G Potassium 12 mil. 250 mls @ 20.833 mls/hr 10/12/18 14:00 10/17/18 02:25 units/ Sodium Chloride IV 20.833 mls/hr Q12H RUBI Administration Ganciclovir Sodium 80 mg/ 250 mls @ 100 mls/hr 10/15/18 20:00 10/15/18 22:17 Sodium Chloride IV 100 mls/hr MoWeFr RUBI Administration Sodium Chloride 100 mls @ 999 mls/hr 10/15/18 09:00 Nacl 0.9% IV CHON PRN Hypotension Lansoprazole 30 mg 10/15/18 10:00 10/16/18 21:07 Prevacid Solutab FEEDTUBE 30 mg BID RUBI Administration Lorazepam 1 mg 10/13/18 19:48 10/16/18 05:23 Ativan IV 1 mg Q4H PRN Administration agitation Multi-Ingred Cream/Lotion/Oil/Oint 1 applic 10/10/18 17:53 Artificial Tears Ophth Oint OU Q4HR PRN Dry Eye(s) Multivitamins 1 each 10/11/18 10:00 10/16/18 10:12 Theragran Tab PO 1 each DAILY RUBI Administration Simple Syrup 15 ml 10/11/18 12:58 Simple Syrup FEEDTUBE PRN PRN Hypoglycemia Simple Syrup 30 ml 10/11/18 12:58 Simple Syrup FEEDTUBE PRN PRN Hypoglycemia Sodium Bicarbonate 325 mg 10/11/18 12:58 Sodium Bicarbonate FEEDTUBE PRN PRN For Clogged Feeding Tube Sodium Chloride 10 ml 10/10/18 22:00 10/16/18 21:14 Sodium Chloride Flush Syringe 10 Ml IV 10 ml BID RUBI Administration Sodium Chloride 10 ml 10/10/18 18:12 Sodium Chloride Flush Syringe 10 Ml IV PRN PRN LINE FLUSH
[2018-10-17] MEDS ORDERED: XYLOCAINE MPF 2% ONE (09:23)
[2018-10-17] MEDS ORDERED: KETALAR ONE (09:23)
[2018-10-17] MEDS ORDERED: VERSED IV ONE (09:33)
--- NOTE | 2018-10-17 09:38 | Progress Note ---
Assessment and Plan Acute respiratory failure. Status post extubation yesterday. Bedside Oximetry 100%, on nasal cannula Sepsis. No fever this morning Severe anemia. s/p transfusion. Chest is clear HIV/AIDS- low CD4 at 3 Acute/chronic renal failure AMS Recommendations Transfuse PRBC to maintain hemoglobin > 7 Monitor fever Continue current oxygen support Continue antibiotics, check LP cultures, follow-up with ID recommendations. No additional data on cultures BRIANNE been done today, with follow-up on results Discussed with patient's family in detail. All questions answered. Critical care time was 31 minutes of [id number] evaluation and coordination of care Subjective Date of service: 10/17/18 Principal diagnosis: low plt, sepsis, HIV/AIDS Interval history: No SOB? .Mostly sleepy, no respiratory distress reported overnight Objective Vital Signs - 12hr 10/16/18 10/16/18 10/16/18 21:45 22:00 22:15 Temperature Pulse Rate 116 H 116 H 110 H Respiratory 27 H 34 H 31 H Rate Blood Pressure 158/100 148/91 127/92 O2 Sat by Pulse 99 100 Oximetry 10/16/18 10/16/18 10/16/18 22:30 22:45 23:00 Temperature Pulse Rate 107 H 106 H 106 H Respiratory 40 H 34 H 35 H Rate Blood Pressure 135/86 129/86 134/88 O2 Sat by Pulse 99 100 99 Oximetry 10/16/18 10/16/18 10/16/18 23:15 23:30 23:45 Temperature Pulse Rate 112 H 106 H 107 H Respiratory 36 H 41 H 32 H Rate Blood Pressure 141/90 141/90 139/86 O2 Sat by Pulse 98 100 100 Oximetry 10/16/18 10/17/18 10/17/18 23:59 00:00 00:15 Temperature 99.2 F Pulse Rate 111 H 111 H 109 H Respiratory 42 H 21 37 H Rate Blood Pressure 139/86 139/86 135/91 O2 Sat by Pulse 99 99 99 Oximetry 10/17/18 10/17/18 10/17/18 00:30 00:45 01:00 Temperature Pulse Rate 109 H 114 H 109 H Respiratory 17 36 H 23 Rate Blood Pressure 140/89 145/99 137/91 O2 Sat by Pulse 100 99 100 Oximetry 10/17/18 10/17/18 10/17/18 01:15 01:30 01:45 Temperature Pulse Rate 109 H 114 H 114 H Respiratory 34 H 33 H 19 Rate Blood Pressure 136/90 136/90 153/95 O2 Sat by Pulse 100 99 100 Oximetry 10/17/18 10/17/18 10/17/18 02:00 02:15 02:30 Temperature Pulse Rate 125 H 115 H 120 H Respiratory 57 H 21 20 Rate Blood Pressure 150/114 144/95 154/105 O2 Sat by Pulse 100 98 98 Oximetry 10/17/18 10/17/18 10/17/18 02:45 03:00 03:15 Temperature Pulse Rate 126 H 114 H 123 H Respiratory 50 H 33 H 14 Rate Blood Pressure 162/112 137/94 129/96 O2 Sat by Pulse 95 97 93 Oximetry 10/17/18 10/17/18 10/17/18 03:30 03:41 03:46 Temperature Pulse Rate 113 H 123 H Respiratory 19 27 H Rate Blood Pressure 137/92 156/111 O2 Sat by Pulse 99 96 97 Oximetry 10/17/18 10/17/18 10/17/18 04:00 04:15 04:30 Temperature 99.0 F Pulse Rate 123 H 114 H 123 H Respiratory 20 43 H 23 Rate Blood Pressure 155/104 136/87 136/87 O2 Sat by Pulse 95 97 95 Oximetry 10/17/18 10/17/18 10/17/18 04:45 05:00 05:15 Temperature Pulse Rate 122 H 116 H 126 H Respiratory 9 L 34 H 25 H Rate Blood Pressure 150/98 149/89 154/103 O2 Sat by Pulse 94 97 95 Oximetry 10/17/18 10/17/18 10/17/18 05:30 05:45 06:00 Temperature Pulse Rate 123 H 129 H 119 H Respiratory 50 H 45 H 44 H Rate Blood Pressure 137/104 161/107 145/93 O2 Sat by Pulse 95 94 96 Oximetry 10/17/18 10/17/18 10/17/18 06:16 06:30 06:45 Temperature Pulse Rate 111 H 118 H 125 H Respiratory 41 H 42 H 11 L Rate Blood Pressure 145/93 157/101 O2 Sat by Pulse 99 99 95 Oximetry 10/17/18 10/17/18 07:00 08:06 Temperature Pulse Rate 123 H Respiratory 38 H 43 H Rate Blood Pressure O2 Sat by Pulse 98 97 Oximetry Constitutional: no acute distress, asleep Eyes: non-icteric Neck: supple Effort: mildly labored Ascultation: Bilateral: clear, diminished breath sounds Percussion: Bilateral: not dull Cardiovascular: regular rate and rhythm (sinus tach) Gastrointestinal: normoactive bowel sounds, other (now with suprapubic catheter) Extremities: no cyanosis, no edema Neurologic: unable to assess CBC and BMP: 10/17/18 07:53 10/17/18 07:53 ABG, PT/INR, D-dimer: ABG POC ABG pH 7.552 (7.35-7.45) H 10/15/18 19:22 POC ABG pCO2 34.8 (35-45) L 10/15/18 19:22 POC ABG pO2 195 (80-105) H 10/15/18 19:22 POC ABG HCO3 30.6 10/15/18 19:22 POC ABG Total CO2 32 10/15/18 19:22 POC ABG O2 Sat 100 10/15/18 19:22 PT/INR, D-dimer PT 14.5 Sec. (12.2-14.9) 10/15/18 00:59 INR 1.06 (0.87-1.13) 10/15/18 00:59 Abnormal lab findings: Abnormal Labs 10/10/18 10/10/18 10/10/18 15:02 15:02 15:02 WBC RBC 2.38 L Hgb 8.1 L Hct 24.9 L MCV 105 H MCH 34 H MCHC RDW 21.4 H Plt Count 20 L Seg Neuts % (Manual) 84.0 H Lymphocytes % (Manual) 8.0 L Monocytes % (Manual) Basophils % (Manual) Nucleated RBC % Seg Neutrophils # Man 7.8 H Abs Lymphs (Manual) Lymphocytes # (Manual) 0.7 L Basophils # (Manual) PT 16.2 H INR 1.22 H POC ABG pH POC ABG pCO2 POC ABG pO2 Sodium 136 L Potassium Chloride 88.2 L Carbon Dioxide 8 L* BUN 70 H Creatinine 5.6 H Glucose 331 H POC Glucose Lactic Acid Uric Acid Calcium Phosphorus Magnesium TIBC Ferritin Total Bilirubin Direct Bilirubin AST ALT Alkaline Phosphatase Lactate Dehydrogenase Troponin T 0.298 H* NT-Pro-B Natriuret Pep Total Protein Albumin Triglycerides 329 H Cholesterol 234 H LDL Cholesterol Direct 139 H Vitamin B12 Urine Creatinine Urine Total Protein Lymph Enumerat CD4/CD8 Absolute CD3 Count % CD4 Cells Absolute CD4 Count % CD8 Cells Absolute CD19 Count T.pallidum Ab (FTA-ABS) HIV-1 RNA PCR copies/ml HIV-1 RNA (PCR) log Crossmatch 10/10/18 10/10/18 10/10/18 15:05 15:29 15:42 WBC RBC Hgb Hct MCV MCH MCHC RDW Plt Count Seg Neuts % (Manual) Lymphocytes % (Manual) Monocytes % (Manual) Basophils % (Manual) Nucleated RBC % Seg Neutrophils # Man Abs Lymphs (Manual) Lymphocytes # (Manual) Basophils # (Manual) PT INR POC ABG pH POC ABG pCO2 POC ABG pO2 Sodium Potassium Chloride Carbon Dioxide BUN Creatinine Glucose POC Glucose 274 H Lactic Acid 17.90 H* Uric Acid Calcium Phosphorus Magnesium TIBC Ferritin Total Bilirubin Direct Bilirubin AST ALT Alkaline Phosphatase Lactate Dehydrogenase Troponin T NT-Pro-B Natriuret Pep Total Protein Albumin Triglycerides Cholesterol LDL Cholesterol Direct Vitamin B12 Urine Creatinine Urine Total Protein Lymph Enumerat CD4/CD8 Absolute CD3 Count % CD4 Cells Absolute CD4 Count % CD8 Cells Absolute CD19 Count T.pallidum Ab (FTA-ABS) HIV-1 RNA PCR copies/ml HIV-1 RNA (PCR) log Crossmatch See Detail 10/10/18 10/10/18 10/10/18 15:42 16:22 16:54 WBC RBC Hgb Hct MCV MCH MCHC RDW Plt Count Seg Neuts % (Manual) Lymphocytes % (Manual) Monocytes % (Manual) Basophils % (Manual) Nucleated RBC % Seg Neutrophils # Man Abs Lymphs (Manual) Lymphocytes # (Manual) Basophils # (Manual) PT INR POC ABG pH POC ABG pCO2 9.0 L POC ABG pO2 140 H Sodium Potassium Chloride Carbon Dioxide BUN Creatinine Glucose POC Glucose Lactic Acid Uric Acid Calcium Phosphorus Magnesium TIBC Ferritin Total Bilirubin 1.50 H Direct Bilirubin 0.4 H AST 105 H ALT Alkaline Phosphatase Lactate Dehydrogenase 2342 H Troponin T NT-Pro-B Natriuret Pep 03914 H Total Protein 9.2 H Albumin Triglycerides Cholesterol LDL Cholesterol Direct Vitamin B12 Urine Creatinine Urine Total Protein Lymph Enumerat CD4/CD8 Absolute CD3 Count % CD4 Cells Absolute CD4 Count % CD8 Cells Absolute CD19 Count T.pallidum Ab (FTA-ABS) HIV-1 RNA PCR copies/ml HIV-1 RNA (PCR) log Crossmatch 02/10/10/18 10/10/18 17:08 18:07 18:24 WBC RBC Hgb Hct MCV MCH MCHC RDW Plt Count Seg Neuts % (Manual) Lymphocytes % (Manual) Monocytes % (Manual) Basophils % (Manual) Nucleated RBC % Seg Neutrophils # Man Abs Lymphs (Manual) Lymphocytes # (Manual) Basophils # (Manual) PT INR POC ABG pH 7.172 L POC ABG pCO2 POC ABG pO2 533 H Sodium Potassium Chloride Carbon Dioxide BUN Creatinine Glucose POC Glucose Lactic Acid 14.80 H* Uric Acid Calcium Phosphorus Magnesium TIBC Ferritin Total Bilirubin Direct Bilirubin AST ALT Alkaline Phosphatase Lactate Dehydrogenase Troponin T 0.272 H* NT-Pro-B Natriuret Pep Total Protein Albumin Triglycerides Cholesterol LDL Cholesterol Direct Vitamin B12 Urine Creatinine Urine Total Protein Lymph Enumerat CD4/CD8 Absolute CD3 Count % CD4 Cells Absolute CD4 Count % CD8 Cells Absolute CD19 Count T.pallidum Ab (FTA-ABS) HIV-1 RNA PCR copies/ml HIV-1 RNA (PCR) log Crossmatch 10/10/18 10/10/18 10/10/18 19:58 20:54 20:54 WBC RBC Hgb Hct MCV MCH MCHC RDW Plt Count Seg Neuts % (Manual) Lymphocytes % (Manual) Monocytes % (Manual) Basophils % (Manual) Nucleated RBC % Seg Neutrophils # Man Abs Lymphs (Manual) Lymphocytes # (Manual) Basophils # (Manual) PT INR POC ABG pH POC ABG pCO2 POC ABG pO2 Sodium Potassium Chloride Carbon Dioxide BUN Creatinine Glucose POC Glucose Lactic Acid 11.50 H* 2.90 H* 2.90 H* Uric Acid Calcium Phosphorus Magnesium TIBC Ferritin Total Bilirubin Direct Bilirubin AST ALT Alkaline Phosphatase Lactate Dehydrogenase Troponin T NT-Pro-B Natriuret Pep Total Protein Albumin Triglycerides Cholesterol LDL Cholesterol Direct Vitamin B12 Urine Creatinine Urine Total Protein Lymph Enumerat CD4/CD8 Absolute CD3 Count % CD4 Cells Absolute CD4 Count % CD8 Cells Absolute CD19 Count T.pallidum Ab (FTA-ABS) HIV-1 RNA PCR copies/ml HIV-1 RNA (PCR) log Crossmatch 10/10/18 10/10/18 10/11/18 22:43 23:55 02:44 WBC RBC Hgb Hct MCV MCH MCHC RDW Plt Count Seg Neuts % (Manual) Lymphocytes % (Manual) Monocytes % (Manual) Basophils % (Manual) Nucleated RBC % Seg Neutrophils # Man Abs Lymphs (Manual) Lymphocytes # (Manual) Basophils # (Manual) PT INR POC ABG pH POC ABG pCO2 25.9 L POC ABG pO2 192 H Sodium Potassium Chloride Carbon Dioxide BUN Creatinine Glucose POC Glucose Lactic Acid 4.60 H* 5.40 H* Uric Acid Calcium Phosphorus Magnesium TIBC Ferritin Total Bilirubin Direct Bilirubin AST ALT Alkaline Phosphatase Lactate Dehydrogenase Troponin T NT-Pro-B Natriuret Pep Total Protein Albumin Triglycerides Cholesterol LDL Cholesterol Direct Vitamin B12 Urine Creatinine Urine Total Protein Lymph Enumerat CD4/CD8 Absolute CD3 Count % CD4 Cells Absolute CD4 Count % CD8 Cells Absolute CD19 Count T.pallidum Ab (FTA-ABS) HIV-1 RNA PCR copies/ml HIV-1 RNA (PCR) log Crossmatch 10/11/18 10/11/18 10/11/18 02:55 02:55 03:34 WBC RBC 2.35 L Hgb 7.7 L Hct 22.9 L MCV 98 H MCH 33 H MCHC RDW 19.9 H Plt Count 23 L Seg Neuts % (Manual) 75.0 H Lymphocytes % (Manual) 11.0 L Monocytes % (Manual) Basophils % (Manual) Nucleated RBC % Seg Neutrophils # Man Abs Lymphs (Manual) Lymphocytes # (Manual) 1.0 L Basophils # (Manual) PT INR POC ABG pH POC ABG pCO2 POC ABG pO2 Sodium Potassium 5.3 H D Chloride Carbon Dioxide 14 L BUN 74 H Creatinine 5.4 H Glucose 126 H POC Glucose Lactic Acid 5.30 H* Uric Acid Calcium 7.8 L D Phosphorus Magnesium TIBC Ferritin Total Bilirubin 1.90 H Direct Bilirubin AST 306 H ALT 89 H Alkaline Phosphatase 246 H Lactate Dehydrogenase Troponin T NT-Pro-B Natriuret Pep Total Protein Albumin 3.4 L Triglycerides Cholesterol LDL Cholesterol Direct Vitamin B12 Urine Creatinine Urine Total Protein Lymph Enumerat CD4/CD8 Absolute CD3 Count % CD4 Cells Absolute CD4 Count % CD8 Cells Absolute CD19 Count T.pallidum Ab (FTA-ABS) HIV-1 RNA PCR copies/ml HIV-1 RNA (PCR) log Crossmatch 10/11/18 10/11/18 10/11/18 03:34 05:47 05:48 WBC RBC Hgb Hct MCV MCH MCHC RDW Plt Count Seg Neuts % (Manual) Lymphocytes % (Manual) Monocytes % (Manual) Basophils % (Manual) Nucleated RBC % Seg Neutrophils # Man Abs Lymphs (Manual) Lymphocytes # (Manual) Basophils # (Manual) PT INR POC ABG pH 7.491 H POC ABG pCO2 24.9 L POC ABG pO2 166 H Sodium Potassium 5.2 H Chloride Carbon Dioxide 16 L BUN 80 H Creatinine 5.5 H Glucose 63 L POC Glucose Lactic Acid 3.80 H* Uric Acid Calcium 7.9 L Phosphorus Magnesium TIBC Ferritin Total Bilirubin Direct Bilirubin AST ALT Alkaline Phosphatase Lactate Dehydrogenase Troponin T NT-Pro-B Natriuret Pep Total Protein Albumin Triglycerides Cholesterol LDL Cholesterol Direct Vitamin B12 Urine Creatinine Urine Total Protein Lymph Enumerat CD4/CD8 Absolute CD3 Count % CD4 Cells Absolute CD4 Count % CD8 Cells Absolute CD19 Count T.pallidum Ab (FTA-ABS) HIV-1 RNA PCR copies/ml HIV-1 RNA (PCR) log Crossmatch 10/11/18 10/11/18 10/11/18 09:56 17:34 17:34 WBC RBC Hgb Hct MCV MCH MCHC RDW Plt Count Seg Neuts % (Manual) Lymphocytes % (Manual) Monocytes % (Manual) Basophils % (Manual) Nucleated RBC % Seg Neutrophils # Man Abs Lymphs (Manual) Lymphocytes # (Manual) Basophils # (Manual) PT INR POC ABG pH POC ABG pCO2 POC ABG pO2 Sodium Potassium 3.4 L D Chloride Carbon Dioxide 17 L BUN 97 H Creatinine 7.3 H Glucose 135 H POC Glucose Lactic Acid 2.60 H* 2.30 H* Uric Acid Calcium 7.9 L Phosphorus 5.80 H Magnesium 2.70 H TIBC Ferritin Total Bilirubin Direct Bilirubin AST ALT Alkaline Phosphatase Lactate Dehydrogenase Troponin T NT-Pro-B Natriuret Pep Total Protein Albumin Triglycerides Cholesterol LDL Cholesterol Direct Vitamin B12 Urine Creatinine Urine Total Protein Lymph Enumerat CD4/CD8 Absolute CD3 Count % CD4 Cells Absolute CD4 Count % CD8 Cells Absolute CD19 Count T.pallidum Ab (FTA-ABS) HIV-1 RNA PCR copies/ml HIV-1 RNA (PCR) log Crossmatch 10/11/18 10/11/18 10/11/18 17:35 17:36 17:36 WBC RBC Hgb Hct MCV MCH MCHC RDW Plt Count Seg Neuts % (Manual) Lymphocytes % (Manual) Monocytes % (Manual) Basophils % (Manual) Nucleated RBC % Seg Neutrophils # Man Abs Lymphs (Manual) 267 L Lymphocytes # (Manual) Basophils # (Manual) PT INR POC ABG pH POC ABG pCO2 POC ABG pO2 Sodium Potassium Chloride Carbon Dioxide BUN Creatinine Glucose POC Glucose Lactic Acid Uric Acid 13.4 H Calcium Phosphorus Magnesium TIBC 236 L Ferritin 08528.0 H Total Bilirubin Direct Bilirubin AST ALT Alkaline Phosphatase Lactate Dehydrogenase Troponin T NT-Pro-B Natriuret Pep Total Protein Albumin Triglycerides Cholesterol LDL Cholesterol Direct Vitamin B12 Urine Creatinine Urine Total Protein Lymph Enumerat CD4/CD8 0.01 L Absolute CD3 Count 226 L % CD4 Cells 1 L Absolute CD4 Count 3 L % CD8 Cells 82 H Absolute CD19 Count 16 L T.pallidum Ab (FTA-ABS) HIV-1 RNA PCR copies/ml HIV-1 RNA (PCR) log Crossmatch 10/11/18 10/11/18 10/11/18 17:36 19:21 20:08 WBC RBC Hgb Hct MCV MCH MCHC RDW Plt Count Seg Neuts % (Manual) Lymphocytes % (Manual) Monocytes % (Manual) Basophils % (Manual) Nucleated RBC % Seg Neutrophils # Man Abs Lymphs (Manual) Lymphocytes # (Manual) Basophils # (Manual) PT INR POC ABG pH POC ABG pCO2 POC ABG pO2 Sodium Potassium Chloride Carbon Dioxide 16 L BUN 99 H Creatinine 8.1 H Glucose 147 H POC Glucose Lactic Acid 2.60 H* Uric Acid Calcium 7.7 L Phosphorus Magnesium 2.60 H TIBC Ferritin Total Bilirubin Direct Bilirubin AST ALT Alkaline Phosphatase Lactate Dehydrogenase Troponin T NT-Pro-B Natriuret Pep Total Protein Albumin Triglycerides Cholesterol LDL Cholesterol Direct Vitamin B12 Urine Creatinine Urine Total Protein Lymph Enumerat CD4/CD8 Absolute CD3 Count % CD4 Cells Absolute CD4 Count % CD8 Cells Absolute CD19 Count T.pallidum Ab (FTA-ABS) HIV-1 RNA PCR copies/ml [id number] H HIV-1 RNA (PCR) log 5.51 H Crossmatch 10/11/18 10/11/18 10/12/18 21:32 23:01 04:29 WBC RBC Hgb Hct MCV MCH MCHC RDW Plt Count Seg Neuts % (Manual) Lymphocytes % (Manual) Monocytes % (Manual) Basophils % (Manual) Nucleated RBC % Seg Neutrophils # Man Abs Lymphs (Manual) Lymphocytes # (Manual) Basophils # (Manual) PT INR POC ABG pH 7.493 H POC ABG pCO2 23.1 L POC ABG pO2 176 H Sodium Potassium Chloride Carbon Dioxide BUN Creatinine Glucose POC Glucose Lactic Acid 2.60 H* 3.20 H* Uric Acid Calcium Phosphorus Magnesium TIBC Ferritin Total Bilirubin Direct Bilirubin AST ALT Alkaline Phosphatase Lactate Dehydrogenase Troponin T NT-Pro-B Natriuret Pep Total Protein Albumin Triglycerides Cholesterol LDL Cholesterol Direct Vitamin B12 Urine Creatinine Urine Total Protein Lymph Enumerat CD4/CD8 Absolute CD3 Count % CD4 Cells Absolute CD4 Count % CD8 Cells Absolute CD19 Count T.pallidum Ab (FTA-ABS) HIV-1 RNA PCR copies/ml HIV-1 RNA (PCR) log Crossmatch 10/12/18 10/12/18 10/12/18 04:57 04:57 04:57 WBC 15.0 H RBC 1.75 L Hgb 5.6 L* Hct 16.7 L* D MCV 95 H MCH MCHC RDW 20.7 H Plt Count 49 L D Seg Neuts % (Manual) 90.0 H Lymphocytes % (Manual) 4.0 L Monocytes % (Manual) Basophils % (Manual) Nucleated RBC % 12.0 H Seg Neutrophils # Man 12.3 H Abs Lymphs (Manual) Lymphocytes # (Manual) 0.5 L Basophils # (Manual) PT 18.0 H INR 1.39 H POC ABG pH POC ABG pCO2 POC ABG pO2 Sodium Potassium 3.0 L D Chloride Carbon Dioxide 15 L BUN 102 H Creatinine 8.8 H Glucose 110 H POC Glucose Lactic Acid Uric Acid Calcium 7.6 L Phosphorus 5.10 H Magnesium 2.50 H TIBC Ferritin Total Bilirubin Direct Bilirubin AST 667 H ALT 298 H Alkaline Phosphatase 154 H Lactate Dehydrogenase Troponin T NT-Pro-B Natriuret Pep Total Protein Albumin 2.8 L Triglycerides Cholesterol LDL Cholesterol Direct Vitamin B12 Urine Creatinine Urine Total Protein Lymph Enumerat CD4/CD8 Absolute CD3 Count % CD4 Cells Absolute CD4 Count % CD8 Cells Absolute CD19 Count T.pallidum Ab (FTA-ABS) HIV-1 RNA PCR copies/ml HIV-1 RNA (PCR) log Crossmatch 10/12/18 10/12/18 10/12/18 06:43 14:05 Unknown WBC 14.0 H RBC 2.76 L Hgb 5.8 L* 8.7 L Hct 17.2 L* 25.1 L D MCV MCH MCHC 35 H RDW 19.0 H Plt Count 53 L Seg Neuts % (Manual) Lymphocytes % (Manual) 5.0 L Monocytes % (Manual) Basophils % (Manual) Nucleated RBC % 40.0 H Seg Neutrophils # Man 9.0 H Abs Lymphs (Manual) Lymphocytes # (Manual) 0.7 L Basophils # (Manual) PT INR POC ABG pH POC ABG pCO2 POC ABG pO2 Sodium Potassium Chloride Carbon Dioxide BUN Creatinine Glucose POC Glucose Lactic Acid Uric Acid Calcium Phosphorus Magnesium TIBC Ferritin Total Bilirubin Direct Bilirubin AST ALT Alkaline Phosphatase Lactate Dehydrogenase Troponin T NT-Pro-B Natriuret Pep Total Protein Albumin Triglycerides Cholesterol LDL Cholesterol Direct Vitamin B12 Urine Creatinine Urine Total Protein Lymph Enumerat CD4/CD8 Absolute CD3 Count % CD4 Cells Absolute CD4 Count % CD8 Cells Absolute CD19 Count T.pallidum Ab (FTA-ABS) Reactive H HIV-1 RNA PCR copies/ml HIV-1 RNA (PCR) log Crossmatch 10/13/18 10/13/18 10/13/18 03:40 03:40 03:40 WBC 11.5 H RBC 2.58 L Hgb 8.2 L Hct 22.9 L MCV MCH MCHC 36 H RDW 19.5 H Plt Count 123 L D Seg Neuts % (Manual) 93.0 H Lymphocytes % (Manual) 0 L Monocytes % (Manual) Basophils % (Manual) Nucleated RBC % 44.0 H Seg Neutrophils # Man 10.7 H Abs Lymphs (Manual) Lymphocytes # (Manual) 0.0 L Basophils # (Manual) PT 15.6 H INR 1.17 H POC ABG pH POC ABG pCO2 POC ABG pO2 Sodium Potassium 3.3 L Chloride Carbon Dioxide 21 L BUN 51 H Creatinine 5.7 H Glucose 140 H POC Glucose Lactic Acid Uric Acid Calcium 7.9 L Phosphorus Magnesium TIBC Ferritin Total Bilirubin Direct Bilirubin AST 367 H ALT 238 H Alkaline Phosphatase 134 H Lactate Dehydrogenase Troponin T NT-Pro-B Natriuret Pep Total Protein 6.2 L Albumin 2.5 L Triglycerides Cholesterol LDL Cholesterol Direct Vitamin B12 Urine Creatinine Urine Total Protein Lymph Enumerat CD4/CD8 Absolute CD3 Count % CD4 Cells Absolute CD4 Count % CD8 Cells Absolute CD19 Count T.pallidum Ab (FTA-ABS) HIV-1 RNA PCR copies/ml HIV-1 RNA (PCR) log Crossmatch 10/13/18 10/13/18 10/14/18 04:10 04:43 04:34 WBC RBC 2.47 L Hgb 7.7 L Hct 21.9 L MCV MCH MCHC 35 H RDW 21.2 H Plt Count 40 L Seg Neuts % (Manual) Lymphocytes % (Manual) Monocytes % (Manual) Basophils % (Manual) Nucleated RBC % Seg Neutrophils # Man Abs Lymphs (Manual) Lymphocytes # (Manual) Basophils # (Manual) PT INR POC ABG pH 7.522 H POC ABG pCO2 29.1 L POC ABG pO2 132 H Sodium Potassium Chloride Carbon Dioxide BUN Creatinine Glucose POC Glucose Lactic Acid Uric Acid Calcium Phosphorus Magnesium TIBC Ferritin Total Bilirubin Direct Bilirubin AST ALT Alkaline Phosphatase Lactate Dehydrogenase Troponin T NT-Pro-B Natriuret Pep Total Protein Albumin Triglycerides Cholesterol LDL Cholesterol Direct Vitamin B12 Urine Creatinine 30.8 H Urine Total Protein 75 H Lymph Enumerat CD4/CD8 Absolute CD3 Count % CD4 Cells Absolute CD4 Count % CD8 Cells Absolute CD19 Count T.pallidum Ab (FTA-ABS) HIV-1 RNA PCR copies/ml HIV-1 RNA (PCR) log Crossmatch 10/14/18 10/14/18 10/15/18 04:34 08:51 03:14 WBC RBC 2.36 L Hgb 7.5 L Hct 21.1 L MCV MCH MCHC 36 H RDW 21.9 H Plt Count 31 L Seg Neuts % (Manual) Lymphocytes % (Manual) 8.0 L Monocytes % (Manual) 9.0 H Basophils % (Manual) 2.0 H Nucleated RBC % 129.0 H Seg Neutrophils # Man Abs Lymphs (Manual) Lymphocytes # (Manual) 0.7 L Basophils # (Manual) 0.2 H PT INR POC ABG pH POC ABG pCO2 POC ABG pO2 Sodium Potassium Chloride Carbon Dioxide BUN 35 H Creatinine 5.2 H Glucose 144 H POC Glucose Lactic Acid Uric Acid Calcium Phosphorus Magnesium TIBC Ferritin Total Bilirubin Direct Bilirubin AST ALT Alkaline Phosphatase Lactate Dehydrogenase Troponin T NT-Pro-B Natriuret Pep Total Protein Albumin Triglycerides Cholesterol LDL Cholesterol Direct Vitamin B12 912.3 H Urine Creatinine Urine Total Protein Lymph Enumerat CD4/CD8 Absolute CD3 Count % CD4 Cells Absolute CD4 Count % CD8 Cells Absolute CD19 Count T.pallidum Ab (FTA-ABS) HIV-1 RNA PCR copies/ml HIV-1 RNA (PCR) log Crossmatch 10/15/18 10/15/18 10/16/18 03:14 19:22 04:07 WBC RBC 2.08 L Hgb 6.5 L Hct 18.4 L* MCV MCH MCHC 35 H RDW 22.9 H Plt Count 68 L D Seg Neuts % (Manual) Lymphocytes % (Manual) Monocytes % (Manual) Basophils % (Manual) Nucleated RBC % Seg Neutrophils # Man Abs Lymphs (Manual) Lymphocytes # (Manual) Basophils # (Manual) PT INR POC ABG pH 7.552 H POC ABG pCO2 34.8 L POC ABG pO2 195 H Sodium 147 H Potassium Chloride Carbon Dioxide BUN 59 H Creatinine 8.0 H D Glucose 153 H POC Glucose Lactic Acid Uric Acid Calcium 8.3 L Phosphorus Magnesium TIBC Ferritin Total Bilirubin Direct Bilirubin AST 179 H ALT 156 H Alkaline Phosphatase 130 H Lactate Dehydrogenase Troponin T NT-Pro-B Natriuret Pep Total Protein Albumin 2.7 L Triglycerides Cholesterol LDL Cholesterol Direct Vitamin B12 Urine Creatinine Urine Total Protein Lymph Enumerat CD4/CD8 Absolute CD3 Count % CD4 Cells Absolute CD4 Count % CD8 Cells Absolute CD19 Count T.pallidum Ab (FTA-ABS) HIV-1 RNA PCR copies/ml HIV-1 RNA (PCR) log Crossmatch 10/16/18 10/16/18 10/16/18 04:07 04:07 08:31 WBC RBC Hgb Hct MCV MCH MCHC RDW Plt Count Seg Neuts % (Manual) Lymphocytes % (Manual) Monocytes % (Manual) Basophils % (Manual) Nucleated RBC % Seg Neutrophils # Man Abs Lymphs (Manual) Lymphocytes # (Manual) Basophils # (Manual) PT INR POC ABG pH POC ABG pCO2 POC ABG pO2 Sodium Potassium Chloride Carbon Dioxide BUN 50 H Creatinine 6.2 H Glucose 142 H POC Glucose Lactic Acid Uric Acid Calcium Phosphorus Magnesium TIBC Ferritin Total Bilirubin Direct Bilirubin AST 136 H 134 H ALT 106 H 107 H Alkaline Phosphatase Lactate Dehydrogenase Troponin T NT-Pro-B Natriuret Pep Total Protein Albumin 2.7 L 2.8 L Triglycerides Cholesterol LDL Cholesterol Direct Vitamin B12 Urine Creatinine Urine Total Protein Lymph Enumerat CD4/CD8 Absolute CD3 Count % CD4 Cells Absolute CD4 Count % CD8 Cells Absolute CD19 Count T.pallidum Ab (FTA-ABS) HIV-1 RNA PCR copies/ml HIV-1 RNA (PCR) log Crossmatch See Detail 10/16/18 10/17/18 10/17/18 11:24 07:53 07:53 WBC 14.0 H RBC 2.86 L Hgb 8.5 L Hct 25.1 L D MCV MCH MCHC RDW 19.0 H Plt Count 63 L Seg Neuts % (Manual) Lymphocytes % (Manual) Monocytes % (Manual) Basophils % (Manual) Nucleated RBC % Seg Neutrophils # Man Abs Lymphs (Manual) Lymphocytes # (Manual) Basophils # (Manual) PT INR POC ABG pH POC ABG pCO2 POC ABG pO2 Sodium Potassium Chloride Carbon Dioxide 19 L BUN 89 H Creatinine 9.5 H D Glucose 122 H POC Glucose 144 H Lactic Acid Uric Acid Calcium Phosphorus Magnesium TIBC Ferritin Total Bilirubin Direct Bilirubin AST ALT Alkaline Phosphatase Lactate Dehydrogenase Troponin T NT-Pro-B Natriuret Pep Total Protein Albumin Triglycerides Cholesterol LDL Cholesterol Direct Vitamin B12 Urine Creatinine Urine Total Protein Lymph Enumerat CD4/CD8 Absolute CD3 Count % CD4 Cells Absolute CD4 Count % CD8 Cells Absolute CD19 Count T.pallidum Ab (FTA-ABS) HIV-1 RNA PCR copies/ml HIV-1 RNA (PCR) log Crossmatch Additional Studies: 10/11/18 17:36 Absolute CD4 Count 3 L Absolute CD8 Count 228 10/16/18 10/16/18 15:00 15:00 CSF WBC 4 CSF RBC 113 CSF Glucose 73 CSF Total Protein 55
[2018-10-17 10:36] LABS: Calcium 8.7 mg/dL (8.4-10.2)
[2018-10-17] MEDS ORDERED: HURRICAINE ONE 20% TOPICAL SPRAY MM SCH (11:00)
[2018-10-17 11:36] LABS: Band Neutrophils # (Manual) 1.3 K/mm3; Basophils % (Manual) 0 % (0.0-1.8); Total Cells Counted 100
[2018-10-17 11:37] LABS: Anisocytosis 1+; Giant Platelets Few; Hypochromasia 1+; Ovalocytes Few; Platelet Estimate Appears Decreased; Schistocytes 1+
--- NOTE | 2018-10-17 12:05 | Anesthesia Day of Surgery ---
Anesthesia Day of Surgery - Day of Surgery Patient Examined: Yes Patient H&P Reviewed: Yes Patient is NPO: Yes
--- NOTE | 2018-10-17 12:06 | Post Anesthesia Evaluation ---
- Post Anesthesia Evaluation Patient Participated: No (mentation at pre-procedure baseline) Airway Patent: Yes (Remains on NC) Stable Respiratory Function: Yes Nausea/Vomiting: No Pain Manageable: Yes Adequeate Hydration: Yes Anesthesia Complications: No
--- NOTE | 2018-10-17 13:26 | Progress Note ---
Assessment and Plan / Acute encephalopathy Not able to follow commend today Neurology following, likely from possible vacuities vs Acute CVA?? LP done yesterday with +RPR /Acute resp failure s/p intubated in ED Intubated for airway protection, patient was very lethargic and confused on admission Pulm following, self extubated 10/16/18 Continue nebs frequent suctioning and supplemental O2 as needed /HIV/AIDS No previous records available ID Physician following VL 320,000 / CD4=3 on 10/11/2018 /Acute CVA with Bilateral infarcts with edema Consulted Neurology, he was evaluated by DR. Valentine. Could be due to possible vasculitis - further workup pending She does not recommend anti-platelets /SHRUTHI due to ATN patient started on hemodialysis Baseline unknown /Urinary retention Unable to place Ricketts catheter Consulted and called Dr. Paula, urology and he came and placed suprapubic catheter patient now on HD /Severe Sepsis with syphilis and HIV - s/p LP and sent CSF specimen for Gram stain and culture, glucose, protein, VDRL, HSV-PCR, EBV-PCR, EDIE virus PCR, T.gondii PCR, cryptococcal antigen and culture - but initial work up doesnot corelate with meningitis Per ID: - continue ganciclovir available to cover empirically VZV/CMV D5 - continue on penicillin G continues infusion to cover empirically neurosyphilis D5 until CSF VDRL is back - increase meprom 1,500 MG PO BID to cover empirically Brain toxoplasmosis - follow-up blood cultures - f/u Toxo IgG, CMV DNA PCR and AFB-blood culture - all pending - repeat blood culture /Thrombocytopenia, Likely from severe sepsis s/p 2 Units platelets transfused, continue to monitor /Anemia, multifactorial s/p total 4 Units PRBC, stool positive for occult blood Seen by GI, conservative management /Hyperkalemia, resolved /Elevated LFT, from possible underlying sepsis and HIV - Continue to trend /Hyperlipidemia, low fat TF diet /Hypertensive urgency. Started on cardene drip, wean off as tolerated /Elevated Troponin Likely due to kidney disease, 2-D echo 45-50% Prognosis guarded Full code status brief History patient is 43 YO Male with HIV, hypertension, previous stroke, Nicotine Dependence, presents to ED for evaluation. Patient was confused and lethargic and unable to provide history. He was seen and evaluated in ED and found to be in distress and unable to protect his airway and was therefore intubated, placed on ventilator and admitted to ICU. Patient diagnosed with acute resp failure, renal failure(acute vs acute on chronic) , Encephalopathy, Acidosis. He continues to have fevers, followed by ID Physician for HIV/AIDS. renal failure worsened therefore started on hemodialysis. s/p LP on 10/16, workup sofar negative for meningitis. He is positive for RPR - getting treated for syphilis Hospitalist Physical GEN: Not in acute distress, lethargic HEENT: Normocephalic, atraumatic, Neck: supple, No JVD Lungs:Clear to auscultation, no wheeze Heart:S1 and S2 regular, no murmurs, rubs or gallop, Abd:soft, non tender, non distended, normal bowel sounds Ext: No edema, no clubbing or cyanosis Neuro: Follow simple commands, noted to have a right-sided weakness Skin: No rash Musculoskeletal: No joint swelling or tenderness The high probability of a clinically significant, sudden or life threatening deterioration of the [multiple] system(s) required my full and direct attention, intervention and personal management. The aggregate critical care time was [35] minutes. This time is in addition to time spent performing reported procedures but includes the following: [x] Data Review and interpretation [x] Patient assessment and monitoring of vital signs [x] Documentation [x] Medication orders and management Subjective Date of service: 10/17/18 Principal diagnosis: low plt, sepsis, HIV/AIDS Interval history: Patient seen and examined Self extubated himself 10/16 Continued to spike fever. Discussed with mother at bedside patient appears more lethargic today Objective - Constitutional Vitals: Vital Signs - 12hr 10/17/18 10/17/18 10/17/18 01:30 01:45 02:00 Temperature Pulse Rate 114 H 114 H 125 H Respiratory 33 H 19 57 H Rate Blood Pressure 136/90 153/95 150/114 O2 Sat by Pulse 99 100 100 Oximetry 10/17/18 10/17/18 10/17/18 02:15 02:30 02:45 Temperature Pulse Rate 115 H 120 H 126 H Respiratory 21 20 50 H Rate Blood Pressure 144/95 154/105 162/112 O2 Sat by Pulse 98 98 95 Oximetry 10/17/18 10/17/18 10/17/18 03:00 03:15 03:30 Temperature Pulse Rate 114 H 123 H 113 H Respiratory 33 H 14 19 Rate Blood Pressure 137/94 129/96 137/92 O2 Sat by Pulse 97 93 99 Oximetry 10/17/18 10/17/18 10/17/18 03:41 03:46 04:00 Temperature 99.0 F Pulse Rate 123 H 123 H Respiratory 27 H 20 Rate Blood Pressure 156/111 155/104 O2 Sat by Pulse 96 97 95 Oximetry 10/17/18 10/17/18 10/17/18 04:15 04:30 04:45 Temperature Pulse Rate 114 H 123 H 122 H Respiratory 43 H 23 9 L Rate Blood Pressure 136/87 136/87 150/98 O2 Sat by Pulse 97 95 94 Oximetry 10/17/18 10/17/18 10/17/18 05:00 05:15 05:30 Temperature Pulse Rate 116 H 126 H 123 H Respiratory 34 H 25 H 50 H Rate Blood Pressure 149/89 154/103 137/104 O2 Sat by Pulse 97 95 95 Oximetry 10/17/18 10/17/18 10/17/18 05:45 06:00 06:16 Temperature Pulse Rate 129 H 119 H 111 H Respiratory 45 H 44 H 41 H Rate Blood Pressure 161/107 145/93 145/93 O2 Sat by Pulse 94 96 99 Oximetry 10/17/18 10/17/18 10/17/18 06:30 06:45 07:00 Temperature Pulse Rate 118 H 125 H 123 H Respiratory 42 H 11 L 38 H Rate Blood Pressure 157/101 O2 Sat by Pulse 99 95 98 Oximetry 10/17/18 10/17/18 10/17/18 07:15 07:30 07:46 Temperature Pulse Rate 129 H 127 H 118 H Respiratory 47 H 32 H 46 H Rate Blood Pressure 183/108 183/108 159/99 O2 Sat by Pulse 97 96 98 Oximetry 10/17/18 10/17/18 10/17/18 08:00 08:06 08:15 Temperature 102.6 F H Pulse Rate 114 H 105 H Respiratory 38 H 43 H 34 H Rate Blood Pressure 159/99 135/83 O2 Sat by Pulse 97 97 98 Oximetry 10/17/18 10/17/18 10/17/18 08:30 08:45 09:00 Temperature 101.2 F H Pulse Rate 114 H 113 H 112 H Respiratory 27 H 38 H 33 H Rate Blood Pressure 138/87 149/91 155/92 O2 Sat by Pulse 99 100 100 Oximetry 10/17/18 10/17/18 10/17/18 09:15 09:30 09:45 Temperature Pulse Rate 109 H 106 H 111 H Respiratory 24 26 H 36 H Rate Blood Pressure 140/87 144/83 145/98 O2 Sat by Pulse 99 100 99 Oximetry 10/17/18 10/17/18 10/17/18 10:00 10:16 10:30 Temperature Pulse Rate 119 H 109 H 113 H Respiratory 33 H 28 H 34 H Rate Blood Pressure 145/98 141/93 158/100 O2 Sat by Pulse 100 100 100 Oximetry 10/17/18 10:46 Temperature Pulse Rate 126 H Respiratory 47 H Rate Blood Pressure 179/120 O2 Sat by Pulse 100 Oximetry - Labs CBC & Chem 7: 10/17/18 07:53 10/18/18 05:03 Labs: Abnormal lab results 10/11/18 10/16/18 10/17/18 Range/Units 17:36 08:31 04:20 RBC (3.65-5.03) M/mm3 Hgb (11.8-15.2) gm/dl Hct (35.5-45.6) % RDW (13.2-15.2) % Plt Count (140-440) K/mm3 Lymphocytes % (Manual) (13.4-35.0) % Monocytes % (Manual) (0.0-7.3) % Nucleated RBC % (0.0-0.9) % Seg Neutrophils # Man (1.8-7.7) K/mm3 Abs Lymphs (Manual) 267 L (850-3900) cells/uL Lymphocytes # (Manual) (1.2-5.4) K/mm3 Monocytes # (Manual) (0.0-0.8) K/mm3 Sodium 146 H (137-145) mmol/L Carbon Dioxide 19 L (22-30) mmol/L BUN 82 H (9-20) mg/dL Creatinine 9.1 H (0.8-1.5) mg/dL Glucose 117 H (75-100) mg/dL AST 127 H (5-40) units/L ALT 84 H (7-56) units/L Albumin 3.0 L (3.9-5) g/dL Lymph Enumerat CD4/CD8 0.01 L (0.86-5.00) Absolute CD3 Count 226 L (840-3060) cells/uL % CD4 Cells 1 L (30-61) % Absolute CD4 Count 3 L (490-1740) cells/uL % CD8 Cells 82 H (12-42) % Absolute CD19 Count 16 L (110-660) cells/uL Crossmatch See Detail 10/17/18 10/17/18 Range/Units 07:53 07:53 RBC 2.86 L (3.65-5.03) M/mm3 Hgb 8.5 L (11.8-15.2) gm/dl Hct 25.1 L D (35.5-45.6) % RDW 19.0 H (13.2-15.2) % Plt Count 63 L (140-440) K/mm3 Lymphocytes % (Manual) 3.0 L (13.4-35.0) % Monocytes % (Manual) 14.0 H (0.0-7.3) % Nucleated RBC % 45.0 H (0.0-0.9) % Seg Neutrophils # Man 9.8 H (1.8-7.7) K/mm3 Abs Lymphs (Manual) (850-3900) cells/uL Lymphocytes # (Manual) 0.4 L (1.2-5.4) K/mm3 Monocytes # (Manual) 2.0 H (0.0-0.8) K/mm3 Sodium (137-145) mmol/L Carbon Dioxide 19 L (22-30) mmol/L BUN 89 H (9-20) mg/dL Creatinine 9.5 H (0.8-1.5) mg/dL Glucose 122 H (75-100) mg/dL AST (5-40) units/L ALT (7-56) units/L Albumin (3.9-5) g/dL Lymph Enumerat CD4/CD8 (0.86-5.00) Absolute CD3 Count (840-3060) cells/uL % CD4 Cells (30-61) % Absolute CD4 Count (490-1740) cells/uL % CD8 Cells (12-42) % Absolute CD19 Count (110-660) cells/uL Crossmatch
--- NOTE | 2018-10-17 14:36 | Progress Note ---
Assessment and Plan Cultures: Blood culture 10/10/2018 no growth. Sputum culture 10/10/2018 Ana Paula albicans. Crypto Ag 10/10/2018 neg. Urine culture 10/13/2018 no growth. Assessment: 43 y/o male with history of HIV (unknown CD4/VL/ART intake), HTN, CVA 6 months ago at [facility], Nicotine Dependence, Malnutrition; admitted on 10/10/2018 due to AMS (confusion/lethargy) and slurred speech for 24 h: 1) Severe SIRS versus sepsis: continues with [id number]. Unclear etiology ? aspiration pneumonia +/- opportunistic brain infection - CXR neg - Unable to obtain UA - patient is anuric - BNP 70K - Troponin 0.2 - LDH 2242 2) Acute hypoxemic respiratory failure: for airway protection +/- ? pneumonia. Repeat CXR no consolidations. Ana Paula in tracha sp likely a colonizer. Extubated 10/15 3) Acute encephalopathy: from hypertensive urgency +/- brain opportunistic infection. DDx: Neurosyphilis, VZV/CMV encephalitis, toxoplasma encephalitis versus [employer] lymphoma versus less likely PML - CT head showed bilateral chronic ischemic changes. - Brain MRI showed areas of edema in the basal ganglia and thalami bilaterally, within the jamari and in the cerebral hemispheres bilaterally in the subcortical and deep white matter and in portions of the cortex, areas of encephalomalacia in the basal ganglia bilaterally with evidence of previous hemorrhage or mineral deposition and numerous small foci of acute infarct in th e basal ganglia bilaterally, subinsular regions bilaterally and medial temporal lobes bilaterally and possibly in the occipital cortex bilaterally. - RPR reactive 1:32 / FTA ABs reactive - Brain MRA showed possible dissection versus artifact at the basilar artery. Luminal irregularity at the anterior, middle, and posterior cerebral arteries as well as the carotid siphons may represent mild to moderate atherosclerotic disease. More notable narrowing at the distal right A1 segment. Differential diagnosis includes motion artifact and vasculitis. Vertebral arteries are not clearly visualized. - CSF wbc 4, rbc 113, Seg 8%, Lymph 76%, protein 55, glucose 73 which is not c/w meningitis 4) Anemia/thrombocytopenia ? unclear etiology, worsening ?HIV myelosuppression ?disseminated MAC 5) Acute on CKD or SHRUTHI ? unclear etiology: r/o rhabdo ?ischemia. Started on HD 6) Elevated lactate ? Lactate 17. 7) DM: uncontrolled 8) Elevated LFTs ? 9) HIV/AIDS: VL 320,000 / CD4=3 on 10/11/2018 Recommendations: - f/u CSF culture, VDRL, HSV-PCR, EBV-PCR, CMV-PCR,EDIE virus PCR, T.gondii PCR, cryptococcal antigen - unclear if all labs were sent/called micro and there were only 2 tubes and all was used - continue ganciclovir available to cover empirically VZV/CMV D5 - continue on penicillin G continues infusion to cover empirically neurosyphilis D5 until CSF VDRL is back - increase meprom 1,500 MG PO BID to cover empirically Brain toxoplasmosis - follow-up blood cultures - f/u Toxo IgG, CMV DNA PCR and AFB-blood culture - all pending - repeat blood culture Guarded prognosis unfortunately. Will follow. Praveena Colunga MD Infectious Diseases [facility] M [phone] O [phone] Subjective Date of service: 10/17/18 Principal diagnosis: low plt, sepsis, HIV/AIDS Interval history: patient remains lethargic, on NC O2, no follows commands, still tachycardic at 110s, Tmax 102.6. Mother at bedside Review of Systems: unable to obtain Objective - Exam Narrative Exam: General appearance: on NC O2 in NAD, unresponsive no follows commands Eyes: anicteric sclerae, moist conjunctivae; no lid-lag; PERRLA HENT: Atraumatic; oropharynx limited Neck: Trachea midline; supple, no thyromegaly or lymphadenopathy Lungs: CTA, with normal respiratory effort and no intercostal retractions CV: tachycardic Abdomen: Soft, non-tender; no masses or hepatosplenomegaly Extremities: No peripheral edema or extremity lymphadenopathy Skin: Normal temperature, turgor and texture; no rash, ulcers or subcutaneous nodules Psych: lethargic Neuro:lethargic - Constitutional Vitals: Vital Signs Temp Pulse Resp BP Pulse Ox 101.2 F H 126 H 47 H 179/120 100 10/17/18 09:00 10/17/18 10:46 10/17/18 10:46 10/17/18 10:46 10/17/18 10:46 Temperature -Last 24 Hours Temperature 101.2 F Temperature 102.6 F Temperature 99.0 F Temperature 99.2 F Temperature 98.8 F Temperature 97.6 F Temperature 97.8 F Temperature 97.6 F Temperature 98.2 F Temperature 98.3 F - Labs CBC & Chem 7: 10/17/18 07:53 10/17/18 07:53 Labs: Abnormal lab results 10/11/18 10/16/18 10/17/18 Range/Units 17:36 08:31 04:20 RBC (3.65-5.03) M/mm3 Hgb (11.8-15.2) gm/dl Hct (35.5-45.6) % RDW (13.2-15.2) % Plt Count (140-440) K/mm3 Lymphocytes % (Manual) (13.4-35.0) % Monocytes % (Manual) (0.0-7.3) % Nucleated RBC % (0.0-0.9) % Seg Neutrophils # Man (1.8-7.7) K/mm3 Abs Lymphs (Manual) 267 L (850-3900) cells/uL Lymphocytes # (Manual) (1.2-5.4) K/mm3 Monocytes # (Manual) (0.0-0.8) K/mm3 Sodium 146 H (137-145) mmol/L Carbon Dioxide 19 L (22-30) mmol/L BUN 82 H (9-20) mg/dL Creatinine 9.1 H (0.8-1.5) mg/dL Glucose 117 H (75-100) mg/dL AST 127 H (5-40) units/L ALT 84 H (7-56) units/L Albumin 3.0 L (3.9-5) g/dL Lymph Enumerat CD4/CD8 0.01 L (0.86-5.00) Absolute CD3 Count 226 L (840-3060) cells/uL % CD4 Cells 1 L (30-61) % Absolute CD4 Count 3 L (490-1740) cells/uL % CD8 Cells 82 H (12-42) % Absolute CD19 Count 16 L (110-660) cells/uL Crossmatch See Detail 10/17/18 10/17/18 Range/Units 07:53 07:53 RBC 2.86 L (3.65-5.03) M/mm3 Hgb 8.5 L (11.8-15.2) gm/dl Hct 25.1 L D (35.5-45.6) % RDW 19.0 H (13.2-15.2) % Plt Count 63 L (140-440) K/mm3 Lymphocytes % (Manual) 3.0 L (13.4-35.0) % Monocytes % (Manual) 14.0 H (0.0-7.3) % Nucleated RBC % 45.0 H (0.0-0.9) % Seg Neutrophils # Man 9.8 H (1.8-7.7) K/mm3 Abs Lymphs (Manual) (850-3900) cells/uL Lymphocytes # (Manual) 0.4 L (1.2-5.4) K/mm3 Monocytes # (Manual) 2.0 H (0.0-0.8) K/mm3 Sodium (137-145) mmol/L Carbon Dioxide 19 L (22-30) mmol/L BUN 89 H (9-20) mg/dL Creatinine 9.5 H (0.8-1.5) mg/dL Glucose 122 H (75-100) mg/dL AST (5-40) units/L ALT (7-56) units/L Albumin (3.9-5) g/dL Lymph Enumerat CD4/CD8 (0.86-5.00) Absolute CD3 Count (840-3060) cells/uL % CD4 Cells (30-61) % Absolute CD4 Count (490-1740) cells/uL % CD8 Cells (12-42) % Absolute CD19 Count (110-660) cells/uL Crossmatch
[2018-10-17] MEDS: THERAGRAN Tab PO SCH (16:06)
[2018-10-17] MEDS: NORVASC PO SCH (16:06)
[2018-10-17] MEDS: PREVACID SOLUTAB FEEDTUBE SCH ×2 (16:06→21:50)
[2018-10-17] MEDS: MEPRON PO SCH ×2 (16:06→21:51)
[2018-10-17] MEDS: COREG PO SCH ×2 (16:07→21:52)
[2018-10-17] MEDS: SODIUM CHLORIDE FLUSH SYRINGE 10 ML IV SCH ×2 (16:10→21:52)
--- NOTE | 2018-10-17 16:29 | Progress Note ---
Assessment and Plan - Patient Problems (1) Acute kidney injury Current Visit: Yes Status: Acute Plan to address problem: Acute kidney injury : severe and worsening non oliguric today creatinine worsening though urine output appears to be improving I reviewed renal Ultrasound with 10.1cm and 10.8cm kidneys bilateral echogenic Possible aetiologies of Acute kidney injury is likely 2/2 acute tubular injury ,possible underlying HIV associated nephropathy cannot be excluded . Obtain additional records if possible Will hold off HD today given improvement in urine output However Will proceed in the morning for solute clearance unless renal function is plateauing and improving. Avoid Nephrotoxic medications. (2) Sepsis Current Visit: Yes Status: Acute Plan to address problem: Sepsis - SIRS : fever ,tachycardia and tachypnea - infectious disease is on board - multifactorial possible opportunistic infection - sputum culture with jose. (3) Acute respiratory failure Current Visit: Yes Status: Acute Qualifiers: Respiratory failure complication: hypoxia Qualified Code(s): J96.01 - Acute respiratory failure with hypoxia Plan to address problem: Acute respiratory failure with Hypoxia - has self extubated. - CXR without obvious infiltrate or effusion - signficant immunocompromise - currently off oxygen with improved O2 saturation , remains with tachypnea. (4) Anemia Current Visit: Yes Status: Acute Qualifiers: Chronic kidney disease stage: unspecified stage Plan to address problem: Moderate anemia 2/2 CKD and ongoing inflammation Hb: 8.5g/dl Monitor CBC. (5) Encephalopathy Current Visit: Yes Status: Acute Plan to address problem: Encephalopathy - Possible organic /metabolic etiology - at risk for multiple opportunistic infections. Subjective Date of service: 10/17/18 Principal diagnosis: low plt, sepsis, HIV/AIDS Interval history: 43 year old gentleman with medical history significant for HIV admitted with Sepsis , acute hypoxemic respiratory failure , Encephalopathy , transaminitis and worsening renal failure . he was seen this am BRIANNE in progress review of systems unobtainable regan catheter in place with 300cc urine output this am no peripheral edema. Objective - Vital Signs Vital signs: Vital Signs - 12hr 10/17/18 10/17/18 10/17/18 04:30 04:45 05:00 Temperature Pulse Rate 123 H 122 H 116 H Respiratory 23 9 L 34 H Rate Blood Pressure 136/87 150/98 149/89 O2 Sat by Pulse 95 94 97 Oximetry 10/17/18 10/17/18 10/17/18 05:15 05:30 05:45 Temperature Pulse Rate 126 H 123 H 129 H Respiratory 25 H 50 H 45 H Rate Blood Pressure 154/103 137/104 161/107 O2 Sat by Pulse 95 95 94 Oximetry 10/17/18 10/17/18 10/17/18 06:00 06:16 06:30 Temperature Pulse Rate 119 H 111 H 118 H Respiratory 44 H 41 H 42 H Rate Blood Pressure 145/93 145/93 157/101 O2 Sat by Pulse 96 99 99 Oximetry 10/17/18 10/17/18 10/17/18 06:45 07:00 07:15 Temperature Pulse Rate 125 H 123 H 129 H Respiratory 11 L 38 H 47 H Rate Blood Pressure 183/108 O2 Sat by Pulse 95 98 97 Oximetry 10/17/18 10/17/18 10/17/18 07:30 07:46 08:00 Temperature 102.6 F H Pulse Rate 127 H 118 H 114 H Respiratory 32 H 46 H 38 H Rate Blood Pressure 183/108 159/99 159/99 O2 Sat by Pulse 96 98 97 Oximetry 10/17/18 10/17/18 10/17/18 08:06 08:15 08:30 Temperature Pulse Rate 105 H 114 H Respiratory 43 H 34 H 27 H Rate Blood Pressure 135/83 138/87 O2 Sat by Pulse 97 98 99 Oximetry 10/17/18 10/17/18 10/17/18 08:45 09:00 09:15 Temperature 101.2 F H Pulse Rate 113 H 112 H 109 H Respiratory 38 H 33 H 24 Rate Blood Pressure 149/91 155/92 140/87 O2 Sat by Pulse 100 100 99 Oximetry 10/17/18 10/17/18 10/17/18 09:30 09:45 10:00 Temperature Pulse Rate 106 H 111 H 119 H Respiratory 26 H 36 H 33 H Rate Blood Pressure 144/83 145/98 145/98 O2 Sat by Pulse 100 99 100 Oximetry 10/17/18 10/17/18 10/17/18 10:16 10:30 10:46 Temperature Pulse Rate 109 H 113 H 126 H Respiratory 28 H 34 H 47 H Rate Blood Pressure 141/93 158/100 179/120 O2 Sat by Pulse 100 100 100 Oximetry 10/17/18 10/17/18 10/17/18 11:00 11:15 11:30 Temperature Pulse Rate 121 H 122 H 119 H Respiratory 27 H 46 H 44 H Rate Blood Pressure 172/112 170/115 168/109 O2 Sat by Pulse 100 100 100 Oximetry 10/17/18 10/17/18 10/17/18 11:45 12:00 12:15 Temperature 99.1 F Pulse Rate 120 H 121 H 115 H Respiratory 47 H 40 H 32 H Rate Blood Pressure 168/109 169/113 155/104 O2 Sat by Pulse 100 99 100 Oximetry 10/17/18 10/17/18 10/17/18 12:30 12:46 13:00 Temperature Pulse Rate 117 H 121 H 120 H Respiratory 35 H 42 H 41 H Rate Blood Pressure 164/108 164/108 178/115 O2 Sat by Pulse 100 100 100 Oximetry 10/17/18 10/17/18 10/17/18 13:15 13:30 13:45 Temperature Pulse Rate 118 H 116 H 121 H Respiratory 45 H 36 H 37 H Rate Blood Pressure 180/111 158/103 161/107 O2 Sat by Pulse 100 99 99 Oximetry 10/17/18 10/17/18 10/17/18 14:00 14:15 14:30 Temperature Pulse Rate 125 H 122 H 126 H Respiratory 38 H 41 H 34 H Rate Blood Pressure 161/107 175/109 171/109 O2 Sat by Pulse 99 99 100 Oximetry 10/17/18 10/17/18 10/17/18 14:45 15:00 16:06 Temperature Pulse Rate 114 H 115 H 118 H Respiratory 32 H 35 H Rate Blood Pressure 140/93 144/101 165/104 O2 Sat by Pulse 99 99 Oximetry 10/17/18 16:07 Temperature Pulse Rate 118 H Respiratory Rate Blood Pressure 165/104 O2 Sat by Pulse Oximetry - General Appearance General appearance: moderate distress EENT: mucous membranes dry, hearing intact Neck: no JVD Respiratory: Present: Decreased Breath Sounds Cardiology: regular, S1S2 Gastrointestinal: normal, normoactive bowel sounds Integumentary: warm and dry Neurologic: confused Musculoskeletal: joint swelling Psychiatric: other (unable to assess due to patient medicatl condition. ) - Lab 10/17/18 07:53 10/17/18 07:53 Most recent lab results Calcium 8.4 mg/dL (8.4-10.2) 10/17/18 07:53 Phosphorus 5.10 mg/dL (2.5-4.5) H 10/12/18 04:57 Magnesium 2.50 mg/dL (1.7-2.3) H 10/12/18 04:57 Urine Creatinine 30.8 mg/dL (0.1-20.0) H 10/13/18 04:43 Urine Sodium 106 mmol/L 10/13/18 04:43 Urine Total Protein 75 mg/dL (5-11.8) H 10/13/18 04:43 - Imaging Other: other (renal ultrasound. ) Medications & Allergies - Medications Allergies/Adverse Reactions: Allergies Sulfa (Sulfonamide Antibiotics) Allergy (Verified 10/10/18 16:54) Unknown Home Medications: Home Medications Medication Instructions Recorded Confirmed Last Taken Type Acetaminophen [Tylenol] 1,000 mg PO Q6HR 10/10/18 10/10/18 Unknown History Amlodipine Besylate [Norvasc] 10 mg PO QDAY 10/10/18 10/10/18 Unknown History Aspirin [Adult Aspirin] 81 mg PO DAILY 10/10/18 10/10/18 Unknown History Atorvastatin [Lipitor Tab] 80 mg PO DAILY 10/10/18 10/10/18 Unknown History Losartan [Cozaar] 100 mg PO QDAY 10/10/18 10/10/18 Unknown History Multivitamin [Multiple Vitamins] 1 each PO DAILY 10/10/18 10/10/18 Unknown History hydroCHLOROthiazide [HCTZ] 25 mg PO QDAY 10/10/18 10/10/18 Unknown History Active Medications: Generic Name Dose Route Start Last Admin Trade Name Freq PRN Reason Stop Dose Admin Acetaminophen 500 mg 10/16/18 10:02 10/17/18 08:06 Tylenol PO 500 mg Q6H PRN Administration Fever >101 Albuterol 2.5 mg 10/10/18 18:12 Proventil IH Q3HRT PRN Shortness Of Breath Amlodipine Besylate 10 mg 10/11/18 10:00 10/17/18 16:06 Norvasc PO 10 mg QDAY RUBI Administration Lipase/Protease/Amylase 1 each 10/11/18 12:[address] 10,500 Unit FEEDTUBE PRN PRN For Clogged Feeding Tube Atovaquone 1,500 mg 10/17/18 16:00 10/17/18 16:06 Mepron PO 1,500 mg BID RUBI Administration Carvedilol 6.25 mg 10/15/18 11:00 10/17/18 16:07 Coreg PO 6.25 mg BID RUBI Administration Haloperidol Lactate 5 mg 10/13/18 19:45 10/17/18 08:08 Haldol IV 5 mg Q6H PRN Administration Agitation Hydralazine HCl 10 mg 10/12/18 15:50 10/15/18 06:14 Apresoline IV 10 mg Q4HR PRN Administration SBP>175 or DBP>115 Hydrophilic Ointment 1 applic 10/10/18 17:53 Vaseline Lip Therapy TP Q2HR PRN Dry Lips Penicillin G Potassium 12 mil. 250 mls @ 20.833 mls/hr 10/12/18 14:00 10/17/18 16:05 units/ Sodium Chloride IV 20.833 mls/hr Q12H RUBI Administration Ganciclovir Sodium 80 mg/ 250 mls @ 100 mls/hr 10/15/18 20:00 10/15/18 22:17 Sodium Chloride IV 100 mls/hr MoWeFr RUBI Administration Sodium Chloride 100 mls @ 999 mls/hr 10/15/18 09:00 Nacl 0.9% IV CHON PRN Hypotension Lansoprazole 30 mg 10/15/18 10:00 10/17/18 16:06 Prevacid Solutab FEEDTUBE 30 mg BID RUBI Administration Lorazepam 1 mg 10/13/18 19:48 10/16/18 05:23 Ativan IV 1 mg Q4H PRN Administration agitation Multi-Ingred Cream/Lotion/Oil/Oint 1 applic 10/10/18 17:53 Artificial Tears Ophth Oint OU Q4HR PRN Dry Eye(s) Multivitamins 1 each 10/11/18 10:00 10/17/18 16:06 Theragran Tab PO 1 each DAILY RUBI Administration Simple Syrup 15 ml 10/11/18 12:58 Simple Syrup FEEDTUBE PRN PRN Hypoglycemia Simple Syrup 30 ml 10/11/18 12:58 Simple Syrup FEEDTUBE PRN PRN Hypoglycemia Sodium Bicarbonate 325 mg 10/11/18 12:58 Sodium Bicarbonate FEEDTUBE PRN PRN For Clogged Feeding Tube Sodium Chloride 10 ml 10/10/18 22:00 10/17/18 16:10 Sodium Chloride Flush Syringe 10 Ml IV 10 ml BID RUBI Administration Sodium Chloride 10 ml 10/10/18 18:12 Sodium Chloride Flush Syringe 10 Ml IV PRN PRN LINE FLUSH
[2018-10-17] MEDS ORDERED: NACL 0.9% 100 ML IV PRN ×2 (17:12→17:23)
[2018-10-17] MEDS: ATIVAN IV PRN (21:50)
[2018-10-17] MEDS: CYTOVENE IV SCH (22:52)
[2018-10-17] MEDS: NACL 0.9% IV SCH (22:52)
[2018-10-18] MEDS: PFIZERPEN 12 MIL.UNITS in NACL 0.9% 250ML 250 ML IV SCH ×2 (03:30→15:03)
[2018-10-18 06:24] LABS: Calcium 8.4 mg/dL (8.4-10.2)
[2018-10-18] MEDS: APRESOLINE IV PRN (06:36)
--- NOTE | 2018-10-18 07:57 | Progress Note ---
Assessment and Plan Cultures: Blood culture 10/10/2018 no growth. Sputum culture 10/10/2018 Ana Paula albicans. Crypto Ag 10/10/2018 neg. Urine culture 10/13/2018 no growth. Blood culture 10/17/2018 no growth. CSF 10/16/2018 pending Assessment: 43 y/o male with history of HIV (unknown CD4/VL/ART intake), HTN, CVA 6 months ago at [facility], Nicotine Dependence, Malnutrition; admitted on 10/10/2018 due to AMS (confusion/lethargy) and slurred speech for 24 h: 1) Severe SIRS versus sepsis: continues with fever 102.2. Unclear etiology ? aspiration pneumonia +/- opportunistic brain infection - CXR neg - Unable to obtain UA - patient was anuric - BNP 70K - Troponin 0.2 - LDH 2242 2) Acute hypoxemic respiratory failure: for airway protection +/- ? pneumonia. Repeat CXR no consolidations. Ana Paula in tracha sp likely a colonizer. Extubated 10/15 3) Acute encephalopathy: not better; multifactorial ?from hypertensive urgency +/- brain opportunistic infection. DDx: Neurosyphilis, VZV/CMV encephalitis versus [employer] lymphoma versus less likely PML - CT head showed bilateral chronic ischemic changes. - Brain MRI showed areas of edema in the basal ganglia and thalami bilaterally, within the jamari and in the cerebral hemispheres bilaterally in the subcortical and deep white matter and in portions of the cortex, areas of encephalomalacia in the basal ganglia bilaterally with evidence of previous hemorrhage or mineral deposition and numerous small foci of acute infarct in the basal ganglia bilaterally, subinsular regions bilaterally and medial temporal lobes bilaterally and possibly in the occipital cortex bilaterally. - RPR reactive 1:32 / FTA ABs reactive - Brain MRA showed possible dissection versus artifact at the basilar artery. Luminal irregularity at the anterior, middle, and posterior cerebral arteries as well as the carotid siphons may represent mild to moderate atherosclerotic disease. More notable narrowing at the distal right A1 segment. Differential diagnosis includes motion artifact and vasculitis. Vertebral arteries are not clearly visualized. - CSF wbc 4, rbc 113, Seg 8%, Lymph 76%, protein 55, glucose 73 which is not c/w meningitis - Toxoplasma IgG negative - On ganciclovir, penicillin and high dosed mepron 4) Anemia/thrombocytopenia ? unclear etiology, worsening ?HIV myelosuppression ?disseminated MAC/CMV ?ganciclovir 5) Acute on CKD or SHRUTHI ? unclear etiology: r/o rhabdo ?ischemia. Started on HD 6) Elevated lactate ? Lactate 17. 7) DM: uncontrolled 8) Elevated LFTs ? 9) HIV/AIDS: VL 320,000 / CD4=3 on 10/11/2018 Recommendations: - f/u CSF culture, VDRL, CMV-PCR, T.gondii PCR, cryptococcal antigen - continue ganciclovir to cover empirically VZV/CMV D6 - continue on penicillin G continues infusion to cover empirically neurosyphilis D5 until CSF VDRL is back - decrease meprom 1,500 MG PO qday for PJP prophylaxis, toxo IgG negative - f/u CMV DNA PCR and AFB-blood culture - all pending - f/u repeat blood culture Guarded prognosis unfortunately. Dr Arreguin will be rounding tomorrow Praveena Colunga MD Infectious Diseases [employer] Super[employer] [facility] [phone] Subjective Date of service: 10/18/18 Principal diagnosis: low plt Interval history: Patient remains lethargic, on NC O2, no follows commands, still tachycardic at 110s, Tmax 102.2. Review of Systems: unable to obtain Objective - Exam Narrative Exam: General appearance: on NC O2 in NAD, unresponsive no follows commands Eyes: anicteric sclerae, moist conjunctivae; no lid-lag; PERRLA HENT: Atraumatic; oropharynx limited Neck: Trachea midline; supple, no thyromegaly or lymphadenopathy Lungs: CTA, with normal respiratory effort and no intercostal retractions CV: tachycardic Abdomen: Soft, non-tender;+SP cath Extremities: No peripheral edema or extremity lymphadenopathy Skin: Normal temperature, turgor and texture; no rash, ulcers or subcutaneous nodules Psych: lethargic Neuro:lethargic Rectal tube Right fem vas cath - Constitutional Vitals: Vital Signs Temp Pulse Resp BP Pulse Ox 98.7 F 116 H 24 138/94 100 10/18/18 04:00 10/18/18 07:30 10/18/18 07:30 10/18/18 07:30 10/18/18 07:30 Temperature -Last 24 Hours Temperature 98.7 F Temperature 98.6 F Temperature 99.0 F Temperature 99.1 F Temperature 99.1 F Temperature 101.2 F Temperature 102.6 F - Labs CBC & Chem 7: 10/17/18 07:53 10/18/18 05:03 Labs: Abnormal lab results 10/17/18 10/17/18 10/17/18 Range/Units 04:20 07:53 07:53 RBC 2.86 L (3.65-5.03) M/mm3 Hgb 8.5 L (11.8-15.2) gm/dl Hct 25.1 L D (35.5-45.6) % RDW 19.0 H (13.2-15.2) % Plt Count 63 L (140-440) K/mm3 Lymphocytes % (Manual) 3.0 L (13.4-35.0) % Monocytes % (Manual) 14.0 H (0.0-7.3) % Nucleated RBC % 45.0 H (0.0-0.9) % Seg Neutrophils # Man 9.8 H (1.8-7.7) K/mm3 Lymphocytes # (Manual) 0.4 L (1.2-5.4) K/mm3 Monocytes # (Manual) 2.0 H (0.0-0.8) K/mm3 Sodium 146 H (137-145) mmol/L Potassium (3.6-5.0) mmol/L Carbon Dioxide 19 L 19 L (22-30) mmol/L BUN 82 H 89 H (9-20) mg/dL Creatinine 9.1 H 9.5 H (0.8-1.5) mg/dL Glucose 117 H 122 H (75-100) mg/dL AST 127 H (5-40) units/L ALT 84 H (7-56) units/L Albumin 3.0 L (3.9-5) g/dL 10/18/18 Range/Units 05:03 RBC (3.65-5.03) M/mm3 Hgb (11.8-15.2) gm/dl Hct (35.5-45.6) % RDW (13.2-15.2) % Plt Count (140-440) K/mm3 Lymphocytes % (Manual) (13.4-35.0) % Monocytes % (Manual) (0.0-7.3) % Nucleated RBC % (0.0-0.9) % Seg Neutrophils # Man (1.8-7.7) K/mm3 Lymphocytes # (Manual) (1.2-5.4) K/mm3 Monocytes # (Manual) (0.0-0.8) K/mm3 Sodium 147 H (137-145) mmol/L Potassium 5.1 H (3.6-5.0) mmol/L Carbon Dioxide 19 L (22-30) mmol/L BUN 115 H (9-20) mg/dL Creatinine 12.0 H (0.8-1.5) mg/dL Glucose 210 H (75-100) mg/dL AST (5-40) units/L ALT (7-56) units/L Albumin (3.9-5) g/dL
--- NOTE | 2018-10-18 08:10 | Hem/Onc Progress Note ---
Assessment and Plan 1. Anemia. At admission, hemoglobin was 8.1, later low and s/p Transfusion support. 2. Platelets at admission was 20. 3. White cell count was elevated. 4. PT/INR h/o slightly elevated. 5. Renal failure. 6. ALT elevated. 7. The patient has multiple medical issues. PLAN: I will ask for a smear evaluation. I will call the lab for same. Supportive care in the interim while we looked for primary etiology. 3 - plt better - s/p transfusion d/w dr rain and dr carrillo 10/14 - low plt - rasta ctive bleed suprapubic catheter 10/15 - plt were rising and again going down' pt had got plt transfusion LDH high - [id number] ordered smear - ordererd LDH may be high in other causes too - renal etc 10/16 - d/w path - not many schistocytes on smear - ADAMTS 13 ordered extubated 10/17 - plt low - path review ordered d/w df bello 10/18 - path report pending plt low - but no active bleeding - Patient Problems (1) Thrombocytopenia associated with AIDS Current Visit: Yes Status: Acute Subjective Date of service: 10/18/18 Principal diagnosis: low plt Interval history: pt awake - not communicative Objective - Exam Narrative Exam: non verbal - Constitutional Vitals: Last Vital Signs Temp 98.7 F 10/18/18 04:00 Pulse 116 H 10/18/18 07:30 Resp 24 10/18/18 07:30 BP 138/94 10/18/18 07:30 Pulse Ox 100 10/18/18 07:30 General appearance: no acute distress Performance status: 4-completely disabled - EENT ENT: other (ngt +) Lymph node exam: negative cervical - Respiratory Respiratory effort: Positive: normal Respiratory: bilateral: diminished (poor effort) - Cardiovascular Heart Sounds: Present: S1 & S2 Extremities: normal temperature - Gastrointestinal General gastrointestinal: Present: soft Rectal Exam: deferred - Genitourinary Male genitourinary: Present: deferred - Integumentary Integumentary: warm - Musculoskeletal Musculoskeletal: generalized weakness - Neurologic Neurologic: other (opens eyes) - Labs Lab Results: Laboratory Results - last 24 hr 10/11/18 10/13/18 10/17/18 17:36 07:54 04:20 WBC RBC Hgb Hct MCV MCH MCHC RDW Plt Count Add Manual Diff Total Counted Seg Neuts % (Manual) Band Neutrophils % Lymphocytes % (Manual) Reactive Lymphs % (Man) Monocytes % (Manual) Eosinophils % (Manual) Basophils % (Manual) Metamyelocytes % Myelocytes % Promyelocytes % Blast Cells % Nucleated RBC % Seg Neutrophils # Man Band Neutrophils # Lymphocytes # (Manual) Abs React Lymphs (Man) Monocytes # (Manual) Eosinophils # (Manual) Basophils # (Manual) Metamyelocytes # Myelocytes # Promyelocytes # Blast Cells # WBC Morphology Hypersegmented Neuts Hyposegmented Neuts Hypogranular Neuts Smudge Cells Toxic Granulation Toxic Vacuolation Dohle Bodies Pelger-Huet Anomaly Kartik Rods Platelet Estimate Clumped Platelets Plt Clumps, EDTA Large Platelets Giant Platelets Platelet Satelliting Plt Morphology Comment RBC Morphology Dimorphic RBCs Polychromasia Hypochromasia Poikilocytosis Anisocytosis Microcytosis Macrocytosis Spherocytes Pappenheimer Bodies Sickle Cells Target Cells Tear Drop Cells Ovalocytes Helmet Cells [place] Bodies [place] Rings Jani Cells Bite Cells Crenated Cell Elliptocytes Acanthocytes (Spur) Rouleaux Hemoglobin C Crystals Schistocytes Malaria parasites Jv Bodies Hem Pathologist Commnt Sodium 146 H Potassium 4.8 Chloride 102.4 Carbon Dioxide 19 L Anion Gap 29 BUN 82 H Creatinine 9.1 H Estimated GFR 8 BUN/Creatinine Ratio 9 Glucose 117 H Calcium 8.7 Total Bilirubin 0.40 AST 127 H ALT 84 H Alkaline Phosphatase 110 Ammonia Total Protein 7.1 Albumin 3.0 L Albumin/Globulin Ratio 0.7 Immunofix Electrophor see below Toxoplasma IgG Ab <7.20 10/17/18 10/17/18 10/17/18 07:53 07:53 14:59 WBC 9.7 RBC 2.86 L Hgb 8.5 L Hct 25.1 L D MCV 88 MCH 30 MCHC 34 RDW 19.0 H Plt Count 63 L Add Manual Diff Complete Total Counted 100 Seg Neuts % (Manual) 70.0 Band Neutrophils % 9.0 Lymphocytes % (Manual) 3.0 L Reactive Lymphs % (Man) 0 Monocytes % (Manual) 14.0 H Eosinophils % (Manual) 2.0 Basophils % (Manual) 0 Metamyelocytes % 2.0 Myelocytes % 0 Promyelocytes % 0 Blast Cells % 0 Nucleated RBC % 45.0 H Seg Neutrophils # Man 9.8 H Band Neutrophils # 1.3 Lymphocytes # (Manual) 0.4 L Abs React Lymphs (Man) 0.0 Monocytes # (Manual) 2.0 H Eosinophils # (Manual) 0.3 Basophils # (Manual) 0.0 Metamyelocytes # 0.3 Myelocytes # 0.0 Promyelocytes # 0.0 Blast Cells # 0.0 WBC Morphology Not Reportable Hypersegmented Neuts Not Reportable Hyposegmented Neuts Not Reportable Hypogranular Neuts Not Reportable Smudge Cells Not Reportable Toxic Granulation Not Reportable Toxic Vacuolation Not Reportable Dohle Bodies Not Reportable Pelger-Huet Anomaly Not Reportable Kartik Rods Not Reportable Platelet Estimate Appears decreased Clumped Platelets Not Reportable Plt Clumps, EDTA Not Reportable Large Platelets Not Reportable Giant Platelets Few Platelet Satelliting Not Reportable Plt Morphology Comment Not Reportable RBC Morphology Not Reportable Dimorphic RBCs Not Reportable Polychromasia Not Reportable Hypochromasia 1+ Poikilocytosis Not Reportable Anisocytosis 1+ Microcytosis 1+ Macrocytosis Not Reportable Spherocytes Not Reportable Pappenheimer Bodies Not Reportable Sickle Cells Not Reportable Target Cells Not Reportable Tear Drop Cells Not Reportable Ovalocytes Few Helmet Cells Not Reportable [place] Bodies Not Reportable [place] Rings Not Reportable Jani Cells Not Reportable Bite Cells Not Reportable Crenated Cell Not Reportable Elliptocytes Not Reportable Acanthocytes (Spur) Few Rouleaux Not Reportable Hemoglobin C Crystals Not Reportable Schistocytes 1+ Malaria parasites Not Reportable Jv Bodies Not Reportable Hem Pathologist Commnt No Sodium 144 Potassium 4.8 Chloride 101.5 Carbon Dioxide 19 L Anion Gap 28 BUN 89 H Creatinine 9.5 H Estimated GFR 7 BUN/Creatinine Ratio 9 Glucose 122 H Calcium 8.4 Total Bilirubin AST ALT Alkaline Phosphatase Ammonia 25.0 Total Protein Albumin Albumin/Globulin Ratio Immunofix Electrophor Toxoplasma IgG Ab 10/18/18 05:03 WBC RBC Hgb Hct MCV MCH MCHC RDW Plt Count Add Manual Diff Total Counted Seg Neuts % (Manual) Band Neutrophils % Lymphocytes % (Manual) Reactive Lymphs % (Man) Monocytes % (Manual) Eosinophils % (Manual) Basophils % (Manual) Metamyelocytes % Myelocytes % Promyelocytes % Blast Cells % Nucleated RBC % Seg Neutrophils # Man Band Neutrophils # Lymphocytes # (Manual) Abs React Lymphs (Man) Monocytes # (Manual) Eosinophils # (Manual) Basophils # (Manual) Metamyelocytes # Myelocytes # Promyelocytes # Blast Cells # WBC Morphology Hypersegmented Neuts Hyposegmented Neuts Hypogranular Neuts Smudge Cells Toxic Granulation Toxic Vacuolation Dohle Bodies Pelger-Huet Anomaly Kartik Rods Platelet Estimate Clumped Platelets Plt Clumps, EDTA Large Platelets Giant Platelets Platelet Satelliting Plt Morphology Comment RBC Morphology Dimorphic RBCs Polychromasia Hypochromasia Poikilocytosis Anisocytosis Microcytosis Macrocytosis Spherocytes Pappenheimer Bodies Sickle Cells Target Cells Tear Drop Cells Ovalocytes Helmet Cells [place] Bodies [place] Rings [place] Cells Bite Cells Crenated Cell Elliptocytes Acanthocytes (Spur) Rouleaux Hemoglobin C Crystals Schistocytes Malaria parasites Jv Bodies Hem Pathologist Commnt Sodium 147 H Potassium 5.1 H Chloride 103.1 Carbon Dioxide 19 L Anion Gap 30 BUN 115 H Creatinine 12.0 H Estimated GFR 6 BUN/Creatinine Ratio 10 Glucose 210 H Calcium 8.4 Total Bilirubin AST ALT Alkaline Phosphatase Ammonia Total Protein Albumin Albumin/Globulin Ratio Immunofix Electrophor Toxoplasma IgG Ab Medications & Allergies - Medications Allergies/Adverse Reactions: Allergies Sulfa (Sulfonamide Antibiotics) Allergy (Verified 10/10/18 16:54) Unknown Home Medications: Home Medications Medication Instructions Recorded Confirmed Last Taken Type Acetaminophen [Tylenol] 1,000 mg PO Q6HR 10/10/18 10/10/18 Unknown History Amlodipine Besylate [Norvasc] 10 mg PO QDAY 10/10/18 10/10/18 Unknown History Aspirin [Adult Aspirin] 81 mg PO DAILY 10/10/18 10/10/18 Unknown History Atorvastatin [Lipitor Tab] 80 mg PO DAILY 10/10/18 10/10/18 Unknown History Losartan [Cozaar] 100 mg PO QDAY 10/10/18 10/10/18 Unknown History Multivitamin [Multiple Vitamins] 1 each PO DAILY 10/10/18 10/10/18 Unknown History hydroCHLOROthiazide [HCTZ] 25 mg PO QDAY 10/10/18 10/10/18 Unknown History Active Medications: Generic Name Dose Route Start Last Admin Trade Name Freq PRN Reason Stop Dose Admin Acetaminophen 500 mg 10/16/18 10:02 10/17/18 08:06 Tylenol PO 500 mg Q6H PRN Administration Fever >101 Albuterol 2.5 mg 10/10/18 18:12 Proventil IH Q3HRT PRN Shortness Of Breath Amlodipine Besylate 10 mg 10/11/18 10:00 10/17/18 16:06 Norvasc PO 10 mg QDAY RUBI Administration Lipase/Protease/Amylase 1 each 10/11/18 12:[address] 10,500 Unit FEEDTUBE PRN PRN For Clogged Feeding Tube Atovaquone 1,500 mg 10/17/18 16:00 10/17/18 21:51 Mepron PO 1,500 mg BID RUBI Administration Carvedilol 6.25 mg 10/15/18 11:00 10/17/18 21:52 Coreg PO 6.25 mg BID RUBI Administration Haloperidol Lactate 5 mg 10/13/18 19:45 10/17/18 08:08 Haldol IV 5 mg Q6H PRN Administration Agitation Hydralazine HCl 10 mg 10/12/18 15:50 10/18/18 06:36 Apresoline IV 10 mg Q4HR PRN Administration SBP>175 or DBP>115 Hydrophilic Ointment 1 applic 10/10/18 17:53 Vaseline Lip Therapy TP Q2HR PRN Dry Lips Penicillin G Potassium 12 mil. 250 mls @ 20.833 mls/hr 10/12/18 14:00 10/18/18 03:30 units/ Sodium Chloride IV 20.833 mls/hr Q12H RUBI Administration Ganciclovir Sodium 80 mg/ 250 mls @ 100 mls/hr 10/15/18 20:00 10/17/18 22:52 Sodium Chloride IV 100 mls/hr MoWeFr RUBI Administration Sodium Chloride 100 mls @ 999 mls/hr 10/17/18 17:23 Nacl 0.9% IV CHON PRN Hypotension Lansoprazole 30 mg 10/15/18 10:00 10/17/18 21:50 Prevacid Solutab FEEDTUBE 30 mg BID RUBI Administration Lorazepam 1 mg 10/13/18 19:48 10/17/18 21:50 Ativan IV 1 mg Q4H PRN Administration agitation Multi-Ingred Cream/Lotion/Oil/Oint 1 applic 10/10/18 17:53 Artificial Tears Ophth Oint OU Q4HR PRN Dry Eye(s) Multivitamins 1 each 10/11/18 10:00 10/17/18 16:06 Theragran Tab PO 1 each DAILY RUBI Administration Simple Syrup 15 ml 10/11/18 12:58 Simple Syrup FEEDTUBE PRN PRN Hypoglycemia Simple Syrup 30 ml 10/11/18 12:58 Simple Syrup FEEDTUBE PRN PRN Hypoglycemia Sodium Bicarbonate 325 mg 10/11/18 12:58 Sodium Bicarbonate FEEDTUBE PRN PRN For Clogged Feeding Tube Sodium Chloride 10 ml 10/10/18 22:00 10/17/18 21:52 Sodium Chloride Flush Syringe 10 Ml IV 10 ml BID RUBI Administration Sodium Chloride 10 ml 10/10/18 18:12 Sodium Chloride Flush Syringe 10 Ml IV PRN PRN LINE FLUSH
--- NOTE | 2018-10-18 08:14 | Procedure Note ---
Date of procedure: 10/18/18 Pre-op diagnosis: fever,HIV Post-op diagnosis: same Procedure: flouro guided lumbar puncture Anesthesia: local Surgeon: LOPEZ PELAYO Estimated blood loss: none Pathology: list (4 tubes) Specimen disposition: to lab Condition: stable Disposition: floor
--- NOTE | 2018-10-18 08:47 | Fluoroscopy Report ---
FLUOROSCOPY LUMBAR PUNCTURE History: Cryptococcal meningitis Findings: Informed consent was obtained from a family member. The patient was deemed incompetent. Sterile technique was utilized. 1% lidocaine for skin anesthesia. Using fluoroscopy guidance, lumbar puncture was performed at L2-3 in the left lateral decubitus position. An opening pressure could not be obtained secondary to an uncooperative patient. 4 tubes of clear CSF fluid were collected for laboratory analysis. No complications. Impression: Successful fluoroscopy guided lumbar puncture.
--- NOTE | 2018-10-18 08:49 | Progress Note ---
Assessment and Plan Acute respiratory failure. Bedside Oximetry 100%, on nasal cannula Sepsis. No fever this morning, but some noted yesterday. Extensive evaluation performed for source of infection, see ID. Negative toxoplasma titers and LP Severe anemia. s/p transfusion. Chest is clear HIV/AIDS- low CD4 at 3 Acute/chronic renal failure AMS Recommendations Follow up on neurology recommendations regarding neurological status on MRI findings Monitor fever Continue current oxygen support Continue antibiotics, check LP cultures, follow-up with ID recommendations. No additional data on cultures No embolic source on BRIANNE report. Discussed with patient's family in detail. All questions answered. Critical care time was 31 minutes of [id number] evaluation and coordination of care Subjective Date of service: 10/18/18 Principal diagnosis: Interval history: Somnolent Objective Vital Signs - 12hr 10/17/18 10/17/18 10/17/18 21:00 21:15 21:30 Temperature Pulse Rate 103 H 106 H 106 H Pulse Rate [ From Monitor] Respiratory 34 H 35 H 36 H Rate Blood Pressure 148/90 140/100 140/102 O2 Sat by Pulse 100 100 99 Oximetry 10/17/18 10/17/18 10/17/18 21:45 21:52 22:00 Temperature Pulse Rate 103 H 114 H 104 H Pulse Rate [ From Monitor] Respiratory 35 H 27 H Rate Blood Pressure 135/85 135/85 138/83 O2 Sat by Pulse 100 100 Oximetry 10/17/18 10/17/18 10/17/18 22:05 22:15 22:30 Temperature Pulse Rate 111 H 102 H Pulse Rate [ 104 H From Monitor] Respiratory 27 H 36 H 41 H Rate Blood Pressure 144/83 136/76 O2 Sat by Pulse 100 100 100 Oximetry 10/17/18 10/17/18 10/17/18 22:45 23:00 23:15 Temperature Pulse Rate 97 H 93 H 94 H Pulse Rate [ From Monitor] Respiratory 35 H 36 H 35 H Rate Blood Pressure 126/92 131/88 124/78 O2 Sat by Pulse 99 99 99 Oximetry 10/17/18 10/17/18 10/17/18 23:30 23:36 23:45 Temperature Pulse Rate 99 H 96 H 93 H Pulse Rate [ From Monitor] Respiratory 35 H 38 H 32 H Rate Blood Pressure 139/95 139/95 135/87 O2 Sat by Pulse 100 100 100 Oximetry 10/17/18 10/18/18 10/18/18 23:52 00:00 00:15 Temperature 98.6 F Pulse Rate 97 H 98 H Pulse Rate [ 106 H From Monitor] Respiratory 37 H 32 H Rate Blood Pressure 135/87 137/97 O2 Sat by Pulse 100 100 Oximetry 10/18/18 10/18/18 10/18/18 00:30 00:45 01:00 Temperature Pulse Rate 103 H 104 H 104 H Pulse Rate [ From Monitor] Respiratory 34 H 33 H 36 H Rate Blood Pressure 146/84 145/94 140/99 O2 Sat by Pulse 100 100 100 Oximetry 10/18/18 10/18/18 10/18/18 01:15 01:30 01:45 Temperature Pulse Rate 100 H 108 H 105 H Pulse Rate [ From Monitor] Respiratory 29 H 33 H 34 H Rate Blood Pressure 144/97 144/97 150/78 O2 Sat by Pulse 100 100 100 Oximetry 10/18/18 10/18/18 10/18/18 02:00 02:15 02:30 Temperature Pulse Rate 107 H 102 H 100 H Pulse Rate [ 106 H From Monitor] Respiratory 34 H 33 H 27 H Rate Blood Pressure 150/78 138/96 137/91 O2 Sat by Pulse 100 100 100 Oximetry 10/18/18 10/18/18 10/18/18 02:45 03:00 03:15 Temperature Pulse Rate 104 H 110 H 103 H Pulse Rate [ From Monitor] Respiratory 36 H 38 H 28 H Rate Blood Pressure 147/101 157/105 155/99 O2 Sat by Pulse 99 100 100 Oximetry 10/18/18 10/18/18 10/18/18 03:30 03:45 04:00 Temperature 98.7 F Pulse Rate 104 H 107 H 113 H Pulse Rate [ 107 H From Monitor] Respiratory 34 H 29 H 33 H Rate Blood Pressure 148/89 152/112 152/112 O2 Sat by Pulse 100 99 100 Oximetry 10/18/18 10/18/18 10/18/18 04:15 04:30 04:45 Temperature Pulse Rate 112 H 114 H 106 H Pulse Rate [ From Monitor] Respiratory 32 H 39 H 27 H Rate Blood Pressure 163/104 163/104 148/85 O2 Sat by Pulse 100 100 100 Oximetry 10/18/18 10/18/18 10/18/18 05:00 05:15 05:30 Temperature Pulse Rate 104 H 109 H Pulse Rate [ From Monitor] Respiratory 21 30 H Rate Blood Pressure 150/100 137/92 137/92 O2 Sat by Pulse 100 100 100 Oximetry 10/18/18 10/18/18 10/18/18 05:45 06:00 06:15 Temperature Pulse Rate 110 H 111 H 112 H Pulse Rate [ From Monitor] Respiratory 21 28 H 33 H Rate Blood Pressure 139/98 139/98 146/101 O2 Sat by Pulse 100 100 99 Oximetry 10/18/18 10/18/18 10/18/18 06:30 06:36 06:45 Temperature Pulse Rate 106 H 118 H 116 H Pulse Rate [ From Monitor] Respiratory 29 H 32 H Rate Blood Pressure 138/97 148/106 142/97 O2 Sat by Pulse 99 100 Oximetry 10/18/18 10/18/18 10/18/18 07:00 07:15 07:30 Temperature Pulse Rate 119 H 118 H 116 H Pulse Rate [ From Monitor] Respiratory 36 H 39 H 24 Rate Blood Pressure 141/94 140/93 138/94 O2 Sat by Pulse 98 100 100 Oximetry 10/18/18 08:10 Temperature Pulse Rate Pulse Rate [ From Monitor] Respiratory Rate Blood Pressure O2 Sat by Pulse 99 Oximetry Constitutional: no acute distress, asleep Eyes: non-icteric Neck: supple, no JVD Effort: mildly labored Ascultation: Bilateral: clear, diminished breath sounds Percussion: Bilateral: not dull Cardiovascular: regular rate and rhythm (sinus tach) Gastrointestinal: normoactive bowel sounds, other (now with suprapubic catheter) Extremities: no cyanosis, no edema Neurologic: pupils equal and round, CN II-XII normal CBC and BMP: 10/17/18 07:53 10/18/18 05:03 ABG, PT/INR, D-dimer: ABG POC ABG pH 7.552 (7.35-7.45) H 10/15/18 19:22 POC ABG pCO2 34.8 (35-45) L 10/15/18 19:22 POC ABG pO2 195 (80-105) H 10/15/18 19:22 POC ABG HCO3 30.6 10/15/18 19:22 POC ABG Total CO2 32 10/15/18 19:22 POC ABG O2 Sat 100 10/15/18 19:22 PT/INR, D-dimer PT 14.5 Sec. (12.2-14.9) 10/15/18 00:59 INR 1.06 (0.87-1.13) 10/15/18 00:59 Abnormal lab findings: Abnormal Labs 10/10/18 10/10/18 10/10/18 15:02 15:02 15:02 WBC RBC 2.38 L Hgb 8.1 L Hct 24.9 L MCV 105 H MCH 34 H MCHC RDW 21.4 H Plt Count 20 L Seg Neuts % (Manual) 84.0 H Lymphocytes % (Manual) 8.0 L Monocytes % (Manual) Basophils % (Manual) Nucleated RBC % Seg Neutrophils # Man 7.8 H Abs Lymphs (Manual) Lymphocytes # (Manual) 0.7 L Monocytes # (Manual) Basophils # (Manual) PT 16.2 H INR 1.22 H POC ABG pH POC ABG pCO2 POC ABG pO2 Sodium 136 L Potassium Chloride 88.2 L Carbon Dioxide 8 L* BUN 70 H Creatinine 5.6 H Glucose 331 H POC Glucose Lactic Acid Uric Acid Calcium Phosphorus Magnesium TIBC Ferritin Total Bilirubin Direct Bilirubin AST ALT Alkaline Phosphatase Lactate Dehydrogenase Troponin T 0.298 H* NT-Pro-B Natriuret Pep Total Protein Albumin Triglycerides 329 H Cholesterol 234 H LDL Cholesterol Direct 139 H Vitamin B12 Urine Creatinine Urine Total Protein Lymph Enumerat CD4/CD8 Absolute CD3 Count % CD4 Cells Absolute CD4 Count % CD8 Cells Absolute CD19 Count T.pallidum Ab (FTA-ABS) HIV-1 RNA PCR copies/ml HIV-1 RNA (PCR) log Crossmatch 10/10/18 10/10/18 10/10/18 15:05 15:29 15:42 WBC RBC Hgb Hct MCV MCH MCHC RDW Plt Count Seg Neuts % (Manual) Lymphocytes % (Manual) Monocytes % (Manual) Basophils % (Manual) Nucleated RBC % Seg Neutrophils # Man Abs Lymphs (Manual) Lymphocytes # (Manual) Monocytes # (Manual) Basophils # (Manual) PT INR POC ABG pH POC ABG pCO2 POC ABG pO2 Sodium Potassium Chloride Carbon Dioxide BUN Creatinine Glucose POC Glucose 274 H Lactic Acid 17.90 H* Uric Acid Calcium Phosphorus Magnesium TIBC Ferritin Total Bilirubin Direct Bilirubin AST ALT Alkaline Phosphatase Lactate Dehydrogenase Troponin T NT-Pro-B Natriuret Pep Total Protein Albumin Triglycerides Cholesterol LDL Cholesterol Direct Vitamin B12 Urine Creatinine Urine Total Protein Lymph Enumerat CD4/CD8 Absolute CD3 Count % CD4 Cells Absolute CD4 Count % CD8 Cells Absolute CD19 Count T.pallidum Ab (FTA-ABS) HIV-1 RNA PCR copies/ml HIV-1 RNA (PCR) log Crossmatch See Detail 10/10/18 10/10/18 10/10/18 15:42 16:22 16:54 WBC RBC Hgb Hct MCV MCH MCHC RDW Plt Count Seg Neuts % (Manual) Lymphocytes % (Manual) Monocytes % (Manual) Basophils % (Manual) Nucleated RBC % Seg Neutrophils # Man Abs Lymphs (Manual) Lymphocytes # (Manual) Monocytes # (Manual) Basophils # (Manual) PT INR POC ABG pH POC ABG pCO2 9.0 L POC ABG pO2 140 H Sodium Potassium Chloride Carbon Dioxide BUN Creatinine Glucose POC Glucose Lactic Acid Uric Acid Calcium Phosphorus Magnesium TIBC Ferritin Total Bilirubin 1.50 H Direct Bilirubin 0.4 H AST 105 H ALT Alkaline Phosphatase Lactate Dehydrogenase 2342 H Troponin T NT-Pro-B Natriuret Pep 26092 H Total Protein 9.2 H Albumin Triglycerides Cholesterol LDL Cholesterol Direct Vitamin B12 Urine Creatinine Urine Total Protein Lymph Enumerat CD4/CD8 Absolute CD3 Count % CD4 Cells Absolute CD4 Count % CD8 Cells Absolute CD19 Count T.pallidum Ab (FTA-ABS) HIV-1 RNA PCR copies/ml HIV-1 RNA (PCR) log Crossmatch 10/10/18 10/10/18 10/10/18 17:08 18:07 18:24 WBC RBC Hgb Hct MCV MCH MCHC RDW Plt Count Seg Neuts % (Manual) Lymphocytes % (Manual) Monocytes % (Manual) Basophils % (Manual) Nucleated RBC % Seg Neutrophils # Man Abs Lymphs (Manual) Lymphocytes # (Manual) Monocytes # (Manual) Basophils # (Manual) PT INR POC ABG pH 7.172 L POC ABG pCO2 POC ABG pO2 533 H Sodium Potassium Chloride Carbon Dioxide BUN Creatinine Glucose POC Glucose Lactic Acid 14.80 H* Uric Acid Calcium Phosphorus Magnesium TIBC Ferritin Total Bilirubin Direct Bilirubin AST ALT Alkaline Phosphatase Lactate Dehydrogenase Troponin T 0.272 H* NT-Pro-B Natriuret Pep Total Protein Albumin Triglycerides Cholesterol LDL Cholesterol Direct Vitamin B12 Urine Creatinine Urine Total Protein Lymph Enumerat CD4/CD8 Absolute CD3 Count % CD4 Cells Absolute CD4 Count % CD8 Cells Absolute CD19 Count T.pallidum Ab (FTA-ABS) HIV-1 RNA PCR copies/ml HIV-1 RNA (PCR) log Crossmatch 10/10/18 10/10/18 10/10/18 19:58 20:54 20:54 WBC RBC Hgb Hct MCV MCH MCHC RDW Plt Count Seg Neuts % (Manual) Lymphocytes % (Manual) Monocytes % (Manual) Basophils % (Manual) Nucleated RBC % Seg Neutrophils # Man Abs Lymphs (Manual) Lymphocytes # (Manual) Monocytes # (Manual) Basophils # (Manual) PT INR POC ABG pH POC ABG pCO2 POC ABG pO2 Sodium Potassium Chloride Carbon Dioxide BUN Creatinine Glucose POC Glucose Lactic Acid 11.50 H* 2.90 H* 2.90 H* Uric Acid Calcium Phosphorus Magnesium TIBC Ferritin Total Bilirubin Direct Bilirubin AST ALT Alkaline Phosphatase Lactate Dehydrogenase Troponin T NT-Pro-B Natriuret Pep Total Protein Albumin Triglycerides Cholesterol LDL Cholesterol Direct Vitamin B12 Urine Creatinine Urine Total Protein Lymph Enumerat CD4/CD8 Absolute CD3 Count % CD4 Cells Absolute CD4 Count % CD8 Cells Absolute CD19 Count T.pallidum Ab (FTA-ABS) HIV-1 RNA PCR copies/ml HIV-1 RNA (PCR) log Crossmatch 10/10/18 10/10/18 10/11/18 22:43 23:55 02:44 WBC RBC Hgb Hct MCV MCH MCHC RDW Plt Count Seg Neuts % (Manual) Lymphocytes % (Manual) Monocytes % (Manual) Basophils % (Manual) Nucleated RBC % Seg Neutrophils # Man Abs Lymphs (Manual) Lymphocytes # (Manual) Monocytes # (Manual) Basophils # (Manual) PT INR POC ABG pH POC ABG pCO2 25.9 L POC ABG pO2 192 H Sodium Potassium Chloride Carbon Dioxide BUN Creatinine Glucose POC Glucose Lactic Acid 4.60 H* 5.40 H* Uric Acid Calcium Phosphorus Magnesium TIBC Ferritin Total Bilirubin Direct Bilirubin AST ALT Alkaline Phosphatase Lactate Dehydrogenase Troponin T NT-Pro-B Natriuret Pep Total Protein Albumin Triglycerides Cholesterol LDL Cholesterol Direct Vitamin B12 Urine Creatinine Urine Total Protein Lymph Enumerat CD4/CD8 Absolute CD3 Count % CD4 Cells Absolute CD4 Count % CD8 Cells Absolute CD19 Count T.pallidum Ab (FTA-ABS) HIV-1 RNA PCR copies/ml HIV-1 RNA (PCR) log Crossmatch 10/11/18 10/11/18 10/11/18 02:55 02:55 03:34 WBC RBC 2.35 L Hgb 7.7 L Hct 22.9 L MCV 98 H MCH 33 H MCHC RDW 19.9 H Plt Count 23 L Seg Neuts % (Manual) 75.0 H Lymphocytes % (Manual) 11.0 L Monocytes % (Manual) Basophils % (Manual) Nucleated RBC % Seg Neutrophils # Man Abs Lymphs (Manual) Lymphocytes # (Manual) 1.0 L Monocytes # (Manual) Basophils # (Manual) PT INR POC ABG pH POC ABG pCO2 POC ABG pO2 Sodium Potassium 5.3 H D Chloride Carbon Dioxide 14 L BUN 74 H Creatinine 5.4 H Glucose 126 H POC Glucose Lactic Acid 5.30 H* Uric Acid Calcium 7.8 L D Phosphorus Magnesium TIBC Ferritin Total Bilirubin 1.90 H Direct Bilirubin AST 306 H ALT 89 H Alkaline Phosphatase 246 H Lactate Dehydrogenase Troponin T NT-Pro-B Natriuret Pep Total Protein Albumin 3.4 L Triglycerides Cholesterol LDL Cholesterol Direct Vitamin B12 Urine Creatinine Urine Total Protein Lymph Enumerat CD4/CD8 Absolute CD3 Count % CD4 Cells Absolute CD4 Count % CD8 Cells Absolute CD19 Count T.pallidum Ab (FTA-ABS) HIV-1 RNA PCR copies/ml HIV-1 RNA (PCR) log Crossmatch 10/11/18 10/11/18 10/11/18 03:34 05:47 05:48 WBC RBC Hgb Hct MCV MCH MCHC RDW Plt Count Seg Neuts % (Manual) Lymphocytes % (Manual) Monocytes % (Manual) Basophils % (Manual) Nucleated RBC % Seg Neutrophils # Man Abs Lymphs (Manual) Lymphocytes # (Manual) Monocytes # (Manual) Basophils # (Manual) PT INR POC ABG pH 7.491 H POC ABG pCO2 24.9 L POC ABG pO2 166 H Sodium Potassium 5.2 H Chloride Carbon Dioxide 16 L BUN 80 H Creatinine 5.5 H Glucose 63 L POC Glucose Lactic Acid 3.80 H* Uric Acid Calcium 7.9 L Phosphorus Magnesium TIBC Ferritin Total Bilirubin Direct Bilirubin AST ALT Alkaline Phosphatase Lactate Dehydrogenase Troponin T NT-Pro-B Natriuret Pep Total Protein Albumin Triglycerides Cholesterol LDL Cholesterol Direct Vitamin B12 Urine Creatinine Urine Total Protein Lymph Enumerat CD4/CD8 Absolute CD3 Count % CD4 Cells Absolute CD4 Count % CD8 Cells Absolute CD19 Count T.pallidum Ab (FTA-ABS) HIV-1 RNA PCR copies/ml HIV-1 RNA (PCR) log Crossmatch 10/11/18 10/11/18 10/11/18 09:56 17:34 17:34 WBC RBC Hgb Hct MCV MCH MCHC RDW Plt Count Seg Neuts % (Manual) Lymphocytes % (Manual) Monocytes % (Manual) Basophils % (Manual) Nucleated RBC % Seg Neutrophils # Man Abs Lymphs (Manual) Lymphocytes # (Manual) Monocytes # (Manual) Basophils # (Manual) PT INR POC ABG pH POC ABG pCO2 POC ABG pO2 Sodium Potassium 3.4 L D Chloride Carbon Dioxide 17 L BUN 97 H Creatinine 7.3 H Glucose 135 H POC Glucose Lactic Acid 2.60 H* 2.30 H* Uric Acid Calcium 7.9 L Phosphorus 5.80 H Magnesium 2.70 H TIBC Ferritin Total Bilirubin Direct Bilirubin AST ALT Alkaline Phosphatase Lactate Dehydrogenase Troponin T NT-Pro-B Natriuret Pep Total Protein Albumin Triglycerides Cholesterol LDL Cholesterol Direct Vitamin B12 Urine Creatinine Urine Total Protein Lymph Enumerat CD4/CD8 Absolute CD3 Count % CD4 Cells Absolute CD4 Count % CD8 Cells Absolute CD19 Count T.pallidum Ab (FTA-ABS) HIV-1 RNA PCR copies/ml HIV-1 RNA (PCR) log Crossmatch 10/11/18 10/11/18 10/11/18 17:35 17:36 17:36 WBC RBC Hgb Hct MCV MCH MCHC RDW Plt Count Seg Neuts % (Manual) Lymphocytes % (Manual) Monocytes % (Manual) Basophils % (Manual) Nucleated RBC % Seg Neutrophils # Man Abs Lymphs (Manual) 267 L Lymphocytes # (Manual) Monocytes # (Manual) Basophils # (Manual) PT INR POC ABG pH POC ABG pCO2 POC ABG pO2 Sodium Potassium Chloride Carbon Dioxide BUN Creatinine Glucose POC Glucose Lactic Acid Uric Acid 13.4 H Calcium Phosphorus Magnesium TIBC 236 L Ferritin 44838.0 H Total Bilirubin Direct Bilirubin AST ALT Alkaline Phosphatase Lactate Dehydrogenase Troponin T NT-Pro-B Natriuret Pep Total Protein Albumin Triglycerides Cholesterol LDL Cholesterol Direct Vitamin B12 Urine Creatinine Urine Total Protein Lymph Enumerat CD4/CD8 0.01 L Absolute CD3 Count 226 L % CD4 Cells 1 L Absolute CD4 Count 3 L % CD8 Cells 82 H Absolute CD19 Count 16 L T.pallidum Ab (FTA-ABS) HIV-1 RNA PCR copies/ml HIV-1 RNA (PCR) log Crossmatch 02/28/19 02/28/19 02/28/19 17:36 19:21 20:08 WBC RBC Hgb Hct MCV MCH MCHC RDW Plt Count Seg Neuts % (Manual) Lymphocytes % (Manual) Monocytes % (Manual) Basophils % (Manual) Nucleated RBC % Seg Neutrophils # Man Abs Lymphs (Manual) Lymphocytes # (Manual) Monocytes # (Manual) Basophils # (Manual) PT INR POC ABG pH POC ABG pCO2 POC ABG pO2 Sodium Potassium Chloride Carbon Dioxide 16 L BUN 99 H Creatinine 8.1 H Glucose 147 H POC Glucose Lactic Acid 2.60 H* Uric Acid Calcium 7.7 L Phosphorus Magnesium 2.60 H TIBC Ferritin Total Bilirubin Direct Bilirubin AST ALT Alkaline Phosphatase Lactate Dehydrogenase Troponin T NT-Pro-B Natriuret Pep Total Protein Albumin Triglycerides Cholesterol LDL Cholesterol Direct Vitamin B12 Urine Creatinine Urine Total Protein Lymph Enumerat CD4/CD8 Absolute CD3 Count % CD4 Cells Absolute CD4 Count % CD8 Cells Absolute CD19 Count T.pallidum Ab (FTA-ABS) HIV-1 RNA PCR copies/ml 730397 H HIV-1 RNA (PCR) log 5.51 H Crossmatch 10/11/18 10/11/18 10/12/18 21:32 23:01 04:29 WBC RBC Hgb Hct MCV MCH MCHC RDW Plt Count Seg Neuts % (Manual) Lymphocytes % (Manual) Monocytes % (Manual) Basophils % (Manual) Nucleated RBC % Seg Neutrophils # Man Abs Lymphs (Manual) Lymphocytes # (Manual) Monocytes # (Manual) Basophils # (Manual) PT INR POC ABG pH 7.493 H POC ABG pCO2 23.1 L POC ABG pO2 176 H Sodium Potassium Chloride Carbon Dioxide BUN Creatinine Glucose POC Glucose Lactic Acid 2.60 H* 3.20 H* Uric Acid Calcium Phosphorus Magnesium TIBC Ferritin Total Bilirubin Direct Bilirubin AST ALT Alkaline Phosphatase Lactate Dehydrogenase Troponin T NT-Pro-B Natriuret Pep Total Protein Albumin Triglycerides Cholesterol LDL Cholesterol Direct Vitamin B12 Urine Creatinine Urine Total Protein Lymph Enumerat CD4/CD8 Absolute CD3 Count % CD4 Cells Absolute CD4 Count % CD8 Cells Absolute CD19 Count T.pallidum Ab (FTA-ABS) HIV-1 RNA PCR copies/ml HIV-1 RNA (PCR) log Crossmatch 10/12/18 10/12/18 10/12/18 04:57 04:57 04:57 WBC 15.0 H RBC 1.75 L Hgb 5.6 L* Hct 16.7 L* D MCV 95 H MCH MCHC RDW 20.7 H Plt Count 49 L D Seg Neuts % (Manual) 90.0 H Lymphocytes % (Manual) 4.0 L Monocytes % (Manual) Basophils % (Manual) Nucleated RBC % 12.0 H Seg Neutrophils # Man 12.3 H Abs Lymphs (Manual) Lymphocytes # (Manual) 0.5 L Monocytes # (Manual) Basophils # (Manual) PT 18.0 H INR 1.39 H POC ABG pH POC ABG pCO2 POC ABG pO2 Sodium Potassium 3.0 L D Chloride Carbon Dioxide 15 L BUN 102 H Creatinine 8.8 H Glucose 110 H POC Glucose Lactic Acid Uric Acid Calcium 7.6 L Phosphorus 5.10 H Magnesium 2.50 H TIBC Ferritin Total Bilirubin Direct Bilirubin AST 667 H ALT 298 H Alkaline Phosphatase 154 H Lactate Dehydrogenase Troponin T NT-Pro-B Natriuret Pep Total Protein Albumin 2.8 L Triglycerides Cholesterol LDL Cholesterol Direct Vitamin B12 Urine Creatinine Urine Total Protein Lymph Enumerat CD4/CD8 Absolute CD3 Count % CD4 Cells Absolute CD4 Count % CD8 Cells Absolute CD19 Count T.pallidum Ab (FTA-ABS) HIV-1 RNA PCR copies/ml HIV-1 RNA (PCR) log Crossmatch 10/12/18 10/12/18 10/12/18 06:43 14:05 Unknown WBC 14.0 H RBC 2.76 L Hgb 5.8 L* 8.7 L Hct 17.2 L* 25.1 L D MCV MCH MCHC 35 H RDW 19.0 H Plt Count 53 L Seg Neuts % (Manual) Lymphocytes % (Manual) 5.0 L Monocytes % (Manual) Basophils % (Manual) Nucleated RBC % 40.0 H Seg Neutrophils # Man 9.0 H Abs Lymphs (Manual) Lymphocytes # (Manual) 0.7 L Monocytes # (Manual) Basophils # (Manual) PT INR POC ABG pH POC ABG pCO2 POC ABG pO2 Sodium Potassium Chloride Carbon Dioxide BUN Creatinine Glucose POC Glucose Lactic Acid Uric Acid Calcium Phosphorus Magnesium TIBC Ferritin Total Bilirubin Direct Bilirubin AST ALT Alkaline Phosphatase Lactate Dehydrogenase Troponin T NT-Pro-B Natriuret Pep Total Protein Albumin Triglycerides Cholesterol LDL Cholesterol Direct Vitamin B12 Urine Creatinine Urine Total Protein Lymph Enumerat CD4/CD8 Absolute CD3 Count % CD4 Cells Absolute CD4 Count % CD8 Cells Absolute CD19 Count T.pallidum Ab (FTA-ABS) Reactive H HIV-1 RNA PCR copies/ml HIV-1 RNA (PCR) log Crossmatch 10/13/18 10/13/18 10/13/18 03:40 03:40 03:40 WBC 11.5 H RBC 2.58 L Hgb 8.2 L Hct 22.9 L MCV MCH MCHC 36 H RDW 19.5 H Plt Count 123 L D Seg Neuts % (Manual) 93.0 H Lymphocytes % (Manual) 0 L Monocytes % (Manual) Basophils % (Manual) Nucleated RBC % 44.0 H Seg Neutrophils # Man 10.7 H Abs Lymphs (Manual) Lymphocytes # (Manual) 0.0 L Monocytes # (Manual) Basophils # (Manual) PT 15.6 H INR 1.17 H POC ABG pH POC ABG pCO2 POC ABG pO2 Sodium Potassium 3.3 L Chloride Carbon Dioxide 21 L BUN 51 H Creatinine 5.7 H Glucose 140 H POC Glucose Lactic Acid Uric Acid Calcium 7.9 L Phosphorus Magnesium TIBC Ferritin Total Bilirubin Direct Bilirubin AST 367 H ALT 238 H Alkaline Phosphatase 134 H Lactate Dehydrogenase Troponin T NT-Pro-B Natriuret Pep Total Protein 6.2 L Albumin 2.5 L Triglycerides Cholesterol LDL Cholesterol Direct Vitamin B12 Urine Creatinine Urine Total Protein Lymph Enumerat CD4/CD8 Absolute CD3 Count % CD4 Cells Absolute CD4 Count % CD8 Cells Absolute CD19 Count T.pallidum Ab (FTA-ABS) HIV-1 RNA PCR copies/ml HIV-1 RNA (PCR) log Crossmatch 10/13/18 10/13/18 10/14/18 04:10 04:43 04:34 WBC RBC 2.47 L Hgb 7.7 L Hct 21.9 L MCV MCH MCHC 35 H RDW 21.2 H Plt Count 40 L Seg Neuts % (Manual) Lymphocytes % (Manual) Monocytes % (Manual) Basophils % (Manual) Nucleated RBC % Seg Neutrophils # Man Abs Lymphs (Manual) Lymphocytes # (Manual) Monocytes # (Manual) Basophils # (Manual) PT INR POC ABG pH 7.522 H POC ABG pCO2 29.1 L POC ABG pO2 132 H Sodium Potassium Chloride Carbon Dioxide BUN Creatinine Glucose POC Glucose Lactic Acid Uric Acid Calcium Phosphorus Magnesium TIBC Ferritin Total Bilirubin Direct Bilirubin AST ALT Alkaline Phosphatase Lactate Dehydrogenase Troponin T NT-Pro-B Natriuret Pep Total Protein Albumin Triglycerides Cholesterol LDL Cholesterol Direct Vitamin B12 Urine Creatinine 30.8 H Urine Total Protein 75 H Lymph Enumerat CD4/CD8 Absolute CD3 Count % CD4 Cells Absolute CD4 Count % CD8 Cells Absolute CD19 Count T.pallidum Ab (FTA-ABS) HIV-1 RNA PCR copies/ml HIV-1 RNA (PCR) log Crossmatch 10/14/18 10/14/18 10/15/18 04:34 08:51 03:14 WBC RBC 2.36 L Hgb 7.5 L Hct 21.1 L MCV MCH MCHC 36 H RDW 21.9 H Plt Count 31 L Seg Neuts % (Manual) Lymphocytes % (Manual) 8.0 L Monocytes % (Manual) 9.0 H Basophils % (Manual) 2.0 H Nucleated RBC % 129.0 H Seg Neutrophils # Man Abs Lymphs (Manual) Lymphocytes # (Manual) 0.7 L Monocytes # (Manual) Basophils # (Manual) 0.2 H PT INR POC ABG pH POC ABG pCO2 POC ABG pO2 Sodium Potassium Chloride Carbon Dioxide BUN 35 H Creatinine 5.2 H Glucose 144 H POC Glucose Lactic Acid Uric Acid Calcium Phosphorus Magnesium TIBC Ferritin Total Bilirubin Direct Bilirubin AST ALT Alkaline Phosphatase Lactate Dehydrogenase Troponin T NT-Pro-B Natriuret Pep Total Protein Albumin Triglycerides Cholesterol LDL Cholesterol Direct Vitamin B12 912.3 H Urine Creatinine Urine Total Protein Lymph Enumerat CD4/CD8 Absolute CD3 Count % CD4 Cells Absolute CD4 Count % CD8 Cells Absolute CD19 Count T.pallidum Ab (FTA-ABS) HIV-1 RNA PCR copies/ml HIV-1 RNA (PCR) log Crossmatch 10/15/18 10/15/18 10/16/18 03:14 19:22 04:07 WBC RBC 2.08 L Hgb 6.5 L Hct 18.4 L* MCV MCH MCHC 35 H RDW 22.9 H Plt Count 68 L D Seg Neuts % (Manual) Lymphocytes % (Manual) Monocytes % (Manual) Basophils % (Manual) Nucleated RBC % Seg Neutrophils # Man Abs Lymphs (Manual) Lymphocytes # (Manual) Monocytes # (Manual) Basophils # (Manual) PT INR POC ABG pH 7.552 H POC ABG pCO2 34.8 L POC ABG pO2 195 H Sodium 147 H Potassium Chloride Carbon Dioxide BUN 59 H Creatinine 8.0 H D Glucose 153 H POC Glucose Lactic Acid Uric Acid Calcium 8.3 L Phosphorus Magnesium TIBC Ferritin Total Bilirubin Direct Bilirubin AST 179 H ALT 156 H Alkaline Phosphatase 130 H Lactate Dehydrogenase Troponin T NT-Pro-B Natriuret Pep Total Protein Albumin 2.7 L Triglycerides Cholesterol LDL Cholesterol Direct Vitamin B12 Urine Creatinine Urine Total Protein Lymph Enumerat CD4/CD8 Absolute CD3 Count % CD4 Cells Absolute CD4 Count % CD8 Cells Absolute CD19 Count T.pallidum Ab (FTA-ABS) HIV-1 RNA PCR copies/ml HIV-1 RNA (PCR) log Crossmatch 10/16/18 10/16/18 10/16/18 04:07 04:07 08:31 WBC RBC Hgb Hct MCV MCH MCHC RDW Plt Count Seg Neuts % (Manual) Lymphocytes % (Manual) Monocytes % (Manual) Basophils % (Manual) Nucleated RBC % Seg Neutrophils # Man Abs Lymphs (Manual) Lymphocytes # (Manual) Monocytes # (Manual) Basophils # (Manual) PT INR POC ABG pH POC ABG pCO2 POC ABG pO2 Sodium Potassium Chloride Carbon Dioxide BUN 50 H Creatinine 6.2 H Glucose 142 H POC Glucose Lactic Acid Uric Acid Calcium Phosphorus Magnesium TIBC Ferritin Total Bilirubin Direct Bilirubin AST 136 H 134 H ALT 106 H 107 H Alkaline Phosphatase Lactate Dehydrogenase Troponin T NT-Pro-B Natriuret Pep Total Protein Albumin 2.7 L 2.8 L Triglycerides Cholesterol LDL Cholesterol Direct Vitamin B12 Urine Creatinine Urine Total Protein Lymph Enumerat CD4/CD8 Absolute CD3 Count % CD4 Cells Absolute CD4 Count % CD8 Cells Absolute CD19 Count T.pallidum Ab (FTA-ABS) HIV-1 RNA PCR copies/ml HIV-1 RNA (PCR) log Crossmatch See Detail 10/16/18 10/17/18 10/17/18 11:24 04:20 07:53 WBC RBC 2.86 L Hgb 8.5 L Hct 25.1 L D MCV MCH MCHC RDW 19.0 H Plt Count 63 L Seg Neuts % (Manual) Lymphocytes % (Manual) 3.0 L Monocytes % (Manual) 14.0 H Basophils % (Manual) Nucleated RBC % 45.0 H Seg Neutrophils # Man 9.8 H Abs Lymphs (Manual) Lymphocytes # (Manual) 0.4 L Monocytes # (Manual) 2.0 H Basophils # (Manual) PT INR POC ABG pH POC ABG pCO2 POC ABG pO2 Sodium 146 H Potassium Chloride Carbon Dioxide 19 L BUN 82 H Creatinine 9.1 H Glucose 117 H POC Glucose 144 H Lactic Acid Uric Acid Calcium Phosphorus Magnesium TIBC Ferritin Total Bilirubin Direct Bilirubin AST 127 H ALT 84 H Alkaline Phosphatase Lactate Dehydrogenase Troponin T NT-Pro-B Natriuret Pep Total Protein Albumin 3.0 L Triglycerides Cholesterol LDL Cholesterol Direct Vitamin B12 Urine Creatinine Urine Total Protein Lymph Enumerat CD4/CD8 Absolute CD3 Count % CD4 Cells Absolute CD4 Count % CD8 Cells Absolute CD19 Count T.pallidum Ab (FTA-ABS) HIV-1 RNA PCR copies/ml HIV-1 RNA (PCR) log Crossmatch 10/17/18 10/18/18 07:53 05:03 WBC RBC Hgb Hct MCV MCH MCHC RDW Plt Count Seg Neuts % (Manual) Lymphocytes % (Manual) Monocytes % (Manual) Basophils % (Manual) Nucleated RBC % Seg Neutrophils # Man Abs Lymphs (Manual) Lymphocytes # (Manual) Monocytes # (Manual) Basophils # (Manual) PT INR POC ABG pH POC ABG pCO2 POC ABG pO2 Sodium 147 H Potassium 5.1 H Chloride Carbon Dioxide 19 L 19 L BUN 89 H 115 H Creatinine 9.5 H 12.0 H Glucose 122 H 210 H POC Glucose Lactic Acid Uric Acid Calcium Phosphorus Magnesium TIBC Ferritin Total Bilirubin Direct Bilirubin AST ALT Alkaline Phosphatase Lactate Dehydrogenase Troponin T NT-Pro-B Natriuret Pep Total Protein Albumin Triglycerides Cholesterol LDL Cholesterol Direct Vitamin B12 Urine Creatinine Urine Total Protein Lymph Enumerat CD4/CD8 Absolute CD3 Count % CD4 Cells Absolute CD4 Count % CD8 Cells Absolute CD19 Count T.pallidum Ab (FTA-ABS) HIV-1 RNA PCR copies/ml HIV-1 RNA (PCR) log Crossmatch
[2018-10-18] MEDS: THERAGRAN Tab PO SCH (12:59)
[2018-10-18] MEDS: PREVACID SOLUTAB FEEDTUBE SCH ×2 (12:59→21:21)
[2018-10-18] MEDS: COREG PO SCH ×2 (12:59→21:21)
[2018-10-18] MEDS: NORVASC PO SCH (12:59)
[2018-10-18] MEDS: SODIUM CHLORIDE FLUSH SYRINGE 10 ML IV SCH ×2 (13:06→21:23)
--- NOTE | 2018-10-18 14:13 | Progress Note ---
Assessment and Plan / Acute encephalopathy Not able to follow commend today but wide alert Neurology following, likely from possible vaculitis vs neurosyphilis Acute CVA?? continue to treat underlying possible cause /Acute resp failure s/p intubated in ED Intubated for airway protection, patient was very lethargic and confused on admission Pulm following, self extubated 10/16/18 Continue nebs frequent suctioning and supplemental O2 as needed /HIV/AIDS No previous records available ID Physician following VL 320,000 / CD4=3 on 10/11/2018 /Acute CVA with Bilateral infarcts with edema Consulted Neurology, he was evaluated by DR. Valentine. Could be due to possible vasculitis - further workup pending She does not recommend anti-platelets /SHRUTHI due to ATN patient started on hemodialysis Baseline unknown /Urinary retention Unable to place Ricketts catheter Consulted and called Dr. Paula, urology and he came and placed suprapubic catheter patient now on HD /Severe Sepsis with syphilis and HIV - s/p LP, but initial work up doesv not corelate with meningitis Per ID: - f/u CSF culture, VDRL, CMV-PCR, T.gondii PCR, cryptococcal antigen - continue ganciclovir to cover empirically VZV/CMV D6 - continue on penicillin G continues infusion to cover empirically neurosyphilis D5 until CSF VDRL is back - decrease meprom 1,500 MG PO qday for PJP prophylaxis, toxo IgG negative - f/u CMV DNA PCR and AFB-blood culture - all pending - f/u repeat blood culture /Thrombocytopenia, Likely from severe sepsis s/p 2 Units platelets transfused, continue to monitor /Anemia, multifactorial s/p total 4 Units PRBC, stool positive for occult blood Seen by GI, conservative management /Hyperkalemia, resolved /Elevated LFT, from possible underlying sepsis and HIV - Continue to trend /Hyperlipidemia, low fat TF diet /Hypertensive urgency. Started on cardene drip, wean off as tolerated /Elevated Troponin Likely due to kidney disease, 2-D echo 45-50% Prognosis guarded Full code status brief History patient is 43 YO Male with HIV, hypertension, previous stroke, Nicotine Dependence, presents to ED for evaluation. Patient was confused and lethargic and unable to provide history. He was seen and evaluated in ED and found to be in distress and unable to protect his airway and was therefore intubated, placed on ventilator and admitted to ICU. Patient diagnosed with acute resp failure, renal failure(acute vs acute on chronic) , Encephalopathy, Acidosis. He continues to have fevers, followed by ID Physician for HIV/AIDS. renal failure worsened therefore started on hemodialysis. s/p LP on 10/16, workup sofar negative for meningitis. He is positive for RPR - getting treated for syphilis Hospitalist Physical GEN: Not in acute distress, more alert HEENT: Normocephalic, atraumatic, Neck: supple, No JVD Lungs:Clear to auscultation, no wheeze Heart:S1 and S2 regular, no murmurs, rubs or gallop, Abd:soft, non tender, non distended, normal bowel sounds Ext: No edema, no clubbing or cyanosis Neuro: Follow simple commands, moves all extremity Skin: No rash Musculoskeletal: No joint swelling or tenderness The high probability of a clinically significant, sudden or life threatening deterioration of the [multiple] system(s) required my full and direct attention, intervention and personal management. The aggregate critical care time was [35] minutes. This time is in addition to time spent performing reported procedures but includes the following: [x] Data Review and interpretation [x] Patient assessment and monitoring of vital signs [x] Documentation [x] Medication orders and management Subjective Date of service: 10/18/18 Principal diagnosis: low plt, sepsis, HIV/AIDS Interval history: Patient seen and examined Self extubated himself 10/16 Continued to spike fever. getting HD at bedside patient appears more alert today Objective - Constitutional Vitals: Vital Signs - 12hr 10/18/18 10/18/18 10/18/18 02:15 02:30 02:45 Temperature Pulse Rate 102 H 100 H 104 H Pulse Rate [ From Monitor] Pulse Rate [ Right Dorsalis Pedis] Respiratory 33 H 27 H 36 H Rate Blood Pressure 138/96 137/91 147/101 O2 Sat by Pulse 100 100 99 Oximetry O2 Sat by Pulse Oximetry [ Anterior Bilateral Throughout] 10/18/18 10/18/18 10/18/18 03:00 03:15 03:30 Temperature Pulse Rate 110 H 103 H 104 H Pulse Rate [ From Monitor] Pulse Rate [ Right Dorsalis Pedis] Respiratory 38 H 28 H 34 H Rate Blood Pressure 157/105 155/99 148/89 O2 Sat by Pulse 100 100 100 Oximetry O2 Sat by Pulse Oximetry [ Anterior Bilateral Throughout] 10/18/18 10/18/18 10/18/18 03:45 04:00 04:15 Temperature 98.7 F Pulse Rate 107 H 113 H 112 H Pulse Rate [ 107 H From Monitor] Pulse Rate [ Right Dorsalis Pedis] Respiratory 29 H 33 H 32 H Rate Blood Pressure 152/112 152/112 163/104 O2 Sat by Pulse 99 100 100 Oximetry O2 Sat by Pulse Oximetry [ Anterior Bilateral Throughout] 10/18/18 10/18/18 10/18/18 04:30 04:45 05:00 Temperature Pulse Rate 114 H 106 H Pulse Rate [ From Monitor] Pulse Rate [ Right Dorsalis Pedis] Respiratory 39 H 27 H Rate Blood Pressure 163/104 148/85 150/100 O2 Sat by Pulse 100 100 100 Oximetry O2 Sat by Pulse Oximetry [ Anterior Bilateral Throughout] 10/18/18 10/18/18 10/18/18 05:15 05:30 05:45 Temperature Pulse Rate 104 H 109 H 110 H Pulse Rate [ From Monitor] Pulse Rate [ Right Dorsalis Pedis] Respiratory 21 30 H 21 Rate Blood Pressure 137/92 137/92 139/98 O2 Sat by Pulse 100 100 100 Oximetry O2 Sat by Pulse Oximetry [ Anterior Bilateral Throughout] 10/18/18 10/18/18 10/18/18 06:00 06:15 06:30 Temperature Pulse Rate 111 H 112 H 106 H Pulse Rate [ From Monitor] Pulse Rate [ Right Dorsalis Pedis] Respiratory 28 H 33 H 29 H Rate Blood Pressure 139/98 146/101 138/97 O2 Sat by Pulse 100 99 99 Oximetry O2 Sat by Pulse Oximetry [ Anterior Bilateral Throughout] 10/18/18 10/18/18 10/18/18 06:36 06:45 07:00 Temperature Pulse Rate 118 H 116 H 119 H Pulse Rate [ From Monitor] Pulse Rate [ Right Dorsalis Pedis] Respiratory 32 H 36 H Rate Blood Pressure 148/106 142/97 141/94 O2 Sat by Pulse 100 98 Oximetry O2 Sat by Pulse Oximetry [ Anterior Bilateral Throughout] 10/18/18 10/18/18 10/18/18 07:15 07:30 07:45 Temperature Pulse Rate 118 H 116 H 114 H Pulse Rate [ From Monitor] Pulse Rate [ Right Dorsalis Pedis] Respiratory 39 H 24 32 H Rate Blood Pressure 140/93 138/94 140/78 O2 Sat by Pulse 100 100 98 Oximetry O2 Sat by Pulse Oximetry [ Anterior Bilateral Throughout] 10/18/18 10/18/18 10/18/18 08:00 08:10 08:15 Temperature 99.7 F H Pulse Rate 117 H 112 H Pulse Rate [ 118 H From Monitor] Pulse Rate [ 118 H Right Dorsalis Pedis] Respiratory 27 H 33 H Rate Blood Pressure 131/90 130/88 O2 Sat by Pulse 100 99 100 Oximetry O2 Sat by Pulse Oximetry [ Anterior Bilateral Throughout] 10/18/18 10/18/18 10/18/18 08:30 08:45 09:00 Temperature 99.7 F H Pulse Rate 119 H 114 H 118 H Pulse Rate [ From Monitor] Pulse Rate [ Right Dorsalis Pedis] Respiratory 31 H 30 H 36 H Rate Blood Pressure 140/78 134/91 141/97 O2 Sat by Pulse 100 100 99 Oximetry O2 Sat by Pulse 99 Oximetry [ Anterior Bilateral Throughout] 10/18/18 10/18/18 10/18/18 09:05 09:15 09:30 Temperature Pulse Rate 116 H 115 H 120 H Pulse Rate [ From Monitor] Pulse Rate [ Right Dorsalis Pedis] Respiratory 26 H 37 H Rate Blood Pressure 141/97 144/91 141/97 O2 Sat by Pulse 100 100 Oximetry O2 Sat by Pulse Oximetry [ Anterior Bilateral Throughout] 10/18/18 10/18/18 10/18/18 09:45 10:00 10:01 Temperature Pulse Rate 114 H 124 H Pulse Rate [ 119 H From Monitor] Pulse Rate [ Right Dorsalis Pedis] Respiratory 35 H 33 H 28 H Rate Blood Pressure 137/81 137/81 O2 Sat by Pulse 100 99 100 Oximetry O2 Sat by Pulse Oximetry [ Anterior Bilateral Throughout] 10/18/18 10/18/18 10/18/18 10:15 10:30 10:45 Temperature Pulse Rate 124 H 115 H 123 H Pulse Rate [ From Monitor] Pulse Rate [ Right Dorsalis Pedis] Respiratory 33 H 33 H 44 H Rate Blood Pressure 157/94 157/94 130/96 O2 Sat by Pulse 100 100 100 Oximetry O2 Sat by Pulse Oximetry [ Anterior Bilateral Throughout] 10/18/18 10/18/18 10/18/18 11:00 11:15 11:30 Temperature Pulse Rate 123 H 129 H 120 H Pulse Rate [ From Monitor] Pulse Rate [ Right Dorsalis Pedis] Respiratory 31 H 51 H 34 H Rate Blood Pressure 161/104 129/86 120/83 O2 Sat by Pulse 98 97 99 Oximetry O2 Sat by Pulse Oximetry [ Anterior Bilateral Throughout] 10/18/18 10/18/18 10/18/18 11:45 12:00 12:15 Temperature Pulse Rate 118 H 110 H 114 H Pulse Rate [ 119 H From Monitor] Pulse Rate [ Right Dorsalis Pedis] Respiratory 30 H 29 H 25 H Rate Blood Pressure 114/76 106/79 134/88 O2 Sat by Pulse 98 99 99 Oximetry O2 Sat by Pulse Oximetry [ Anterior Bilateral Throughout] 10/18/18 10/18/18 10/18/18 12:30 12:35 12:42 Temperature 99.7 F H Pulse Rate 118 H 119 H 119 H Pulse Rate [ From Monitor] Pulse Rate [ Right Dorsalis Pedis] Respiratory 28 H 28 H Rate Blood Pressure 134/88 140/96 140/96 O2 Sat by Pulse 99 Oximetry O2 Sat by Pulse 99 Oximetry [ Anterior Bilateral Throughout] 10/18/18 10/18/18 10/18/18 12:45 12:59 13:00 Temperature Pulse Rate 122 H 122 H 125 H Pulse Rate [ From Monitor] Pulse Rate [ Right Dorsalis Pedis] Respiratory 34 H 30 H Rate Blood Pressure 168/97 168/97 168/97 O2 Sat by Pulse 100 98 Oximetry O2 Sat by Pulse Oximetry [ Anterior Bilateral Throughout] - Labs CBC & Chem 7: 10/19/18 03:38 10/19/18 03:38 Labs: Abnormal lab results 10/18/18 10/18/18 Range/Units 05:03 05:03 Sodium 147 H (137-145) mmol/L Potassium 5.1 H (3.6-5.0) mmol/L Carbon Dioxide 19 L (22-30) mmol/L BUN 115 H (9-20) mg/dL Creatinine 12.0 H (0.8-1.5) mg/dL Glucose 210 H (75-100) mg/dL Magnesium 3.10 H (1.7-2.3) mg/dL
[2018-10-18] MEDS: MEPRON PO SCH (14:46)
--- NOTE | 2018-10-18 17:23 | Progress Note ---
Assessment and Plan - Patient Problems (1) Acute kidney injury Current Visit: Yes Status: Acute Plan to address problem: Acute kidney injury : severe and worsening oliguric today creatinine worsening though urine output appears to be improving I reviewed renal Ultrasound with 10.1cm and 10.8cm kidneys bilateral echogenic Possible aetiologies of Acute kidney injury is likely 2/2 acute tubular injury ,possible underlying HIV associated nephropathy cannot be excluded . Obtain additional records if possible Hemodialysis today with ultrafiltration on 2 L However Will proceed in the morning for solute clearance unless renal function is plateauing and improving. Avoid Nephrotoxic medications. (2) Sepsis Current Visit: Yes Status: Acute Plan to address problem: Sepsis - SIRS : fever ,tachycardia and tachypnea - infectious disease is on board - multifactorial possible opportunistic infection - sputum culture with jose. Status post BRIANNE without thrombus (3) Acute respiratory failure Current Visit: Yes Status: Acute Qualifiers: Respiratory failure complication: hypoxia Qualified Code(s): J96.01 - Acute respiratory failure with hypoxia Plan to address problem: Acute respiratory failure with Hypoxia - has self extubated. - CXR without obvious infiltrate or effusion - signficant immunocompromise - currently off oxygen with improved O2 saturation , remains with tachypnea. (4) Anemia Current Visit: Yes Status: Acute Qualifiers: Chronic kidney disease stage: unspecified stage Plan to address problem: Moderate anemia 2/2 CKD and ongoing inflammation Hb: 8.5g/dl Monitor CBC. (5) Encephalopathy Current Visit: Yes Status: Acute Plan to address problem: Encephalopathy - Possible organic /metabolic etiology - at risk for multiple opportunistic infections. Subjective Principal diagnosis: low plt, sepsis, HIV/AIDS acute renal failure Interval history: 43 year old gentleman with medical history significant for HIV admitted with Sepsis , acute hypoxemic respiratory failure , Encephalopathy , transaminitis and worsening renal failure . Patient seen this morning oxygen saturation 99 however remains tachypneic Patient was seen on dialysis He has confusion regan catheter with this some urine now oliguric no peripheral edema. Objective - Vital Signs Vital signs: Vital Signs - 12hr 10/18/18 10/18/18 10/18/18 05:30 05:45 06:00 Temperature Pulse Rate 109 H 110 H 111 H Pulse Rate [ From Monitor] Pulse Rate [ Right Dorsalis Pedis] Respiratory 30 H 21 28 H Rate Blood Pressure 137/92 139/98 139/98 O2 Sat by Pulse 100 100 100 Oximetry O2 Sat by Pulse Oximetry [ Anterior Bilateral Throughout] 10/18/18 10/18/18 10/18/18 06:15 06:30 06:36 Temperature Pulse Rate 112 H 106 H 118 H Pulse Rate [ From Monitor] Pulse Rate [ Right Dorsalis Pedis] Respiratory 33 H 29 H Rate Blood Pressure 146/101 138/97 148/106 O2 Sat by Pulse 99 99 Oximetry O2 Sat by Pulse Oximetry [ Anterior Bilateral Throughout] 10/18/18 10/18/18 10/18/18 06:45 07:00 07:15 Temperature Pulse Rate 116 H 119 H 118 H Pulse Rate [ From Monitor] Pulse Rate [ Right Dorsalis Pedis] Respiratory 32 H 36 H 39 H Rate Blood Pressure 142/97 141/94 140/93 O2 Sat by Pulse 100 98 100 Oximetry O2 Sat by Pulse Oximetry [ Anterior Bilateral Throughout] 10/18/18 10/18/18 10/18/18 07:30 07:45 08:00 Temperature 99.7 F H Pulse Rate 116 H 114 H 117 H Pulse Rate [ 118 H From Monitor] Pulse Rate [ 118 H Right Dorsalis Pedis] Respiratory 24 32 H 27 H Rate Blood Pressure 138/94 140/78 131/90 O2 Sat by Pulse 100 98 100 Oximetry O2 Sat by Pulse Oximetry [ Anterior Bilateral Throughout] 10/18/18 10/18/18 10/18/18 08:10 08:15 08:30 Temperature Pulse Rate 112 H 119 H Pulse Rate [ From Monitor] Pulse Rate [ Right Dorsalis Pedis] Respiratory 33 H 31 H Rate Blood Pressure 130/88 140/78 O2 Sat by Pulse 99 100 100 Oximetry O2 Sat by Pulse Oximetry [ Anterior Bilateral Throughout] 10/18/18 10/18/18 10/18/18 08:45 09:00 09:05 Temperature 99.7 F H Pulse Rate 114 H 118 H 116 H Pulse Rate [ From Monitor] Pulse Rate [ Right Dorsalis Pedis] Respiratory 30 H 36 H Rate Blood Pressure 134/91 141/97 141/97 O2 Sat by Pulse 100 99 Oximetry O2 Sat by Pulse 99 Oximetry [ Anterior Bilateral Throughout] 10/18/18 10/18/18 10/18/18 09:15 09:30 09:45 Temperature Pulse Rate 115 H 120 H 114 H Pulse Rate [ From Monitor] Pulse Rate [ Right Dorsalis Pedis] Respiratory 26 H 37 H 35 H Rate Blood Pressure 144/91 141/97 137/81 O2 Sat by Pulse 100 100 100 Oximetry O2 Sat by Pulse Oximetry [ Anterior Bilateral Throughout] 10/18/18 10/18/18 10/18/18 10:00 10:01 10:15 Temperature Pulse Rate 124 H 124 H Pulse Rate [ 119 H From Monitor] Pulse Rate [ Right Dorsalis Pedis] Respiratory 33 H 28 H 33 H Rate Blood Pressure 137/81 157/94 O2 Sat by Pulse 99 100 100 Oximetry O2 Sat by Pulse Oximetry [ Anterior Bilateral Throughout] 10/18/18 10/18/18 10/18/18 10:30 10:45 11:00 Temperature Pulse Rate 115 H 123 H 123 H Pulse Rate [ From Monitor] Pulse Rate [ Right Dorsalis Pedis] Respiratory 33 H 44 H 31 H Rate Blood Pressure 157/94 130/96 161/104 O2 Sat by Pulse 100 100 98 Oximetry O2 Sat by Pulse Oximetry [ Anterior Bilateral Throughout] 10/18/18 10/18/18 10/18/18 11:15 11:30 11:45 Temperature Pulse Rate 129 H 120 H 118 H Pulse Rate [ From Monitor] Pulse Rate [ Right Dorsalis Pedis] Respiratory 51 H 34 H 30 H Rate Blood Pressure 129/86 120/83 114/76 O2 Sat by Pulse 97 99 98 Oximetry O2 Sat by Pulse Oximetry [ Anterior Bilateral Throughout] 10/18/18 10/18/18 10/18/18 12:00 12:15 12:30 Temperature 97.6 F Pulse Rate 110 H 114 H 118 H Pulse Rate [ 119 H From Monitor] Pulse Rate [ Right Dorsalis Pedis] Respiratory 29 H 25 H 28 H Rate Blood Pressure 106/79 134/88 134/88 O2 Sat by Pulse 99 99 99 Oximetry O2 Sat by Pulse Oximetry [ Anterior Bilateral Throughout] 10/18/18 10/18/18 10/18/18 12:35 12:42 12:45 Temperature 99.7 F H Pulse Rate 119 H 119 H 122 H Pulse Rate [ From Monitor] Pulse Rate [ Right Dorsalis Pedis] Respiratory 28 H 34 H Rate Blood Pressure 140/96 140/96 168/97 O2 Sat by Pulse 100 Oximetry O2 Sat by Pulse 99 Oximetry [ Anterior Bilateral Throughout] 10/18/18 10/18/18 10/18/18 12:59 13:00 13:15 Temperature Pulse Rate 122 H 125 H 122 H Pulse Rate [ From Monitor] Pulse Rate [ Right Dorsalis Pedis] Respiratory 30 H 26 H Rate Blood Pressure 168/97 168/97 140/96 O2 Sat by Pulse 98 99 Oximetry O2 Sat by Pulse Oximetry [ Anterior Bilateral Throughout] 10/18/18 10/18/18 10/18/18 13:30 13:45 14:00 Temperature Pulse Rate 128 H 120 H 116 H Pulse Rate [ From Monitor] Pulse Rate [ Right Dorsalis Pedis] Respiratory 36 H 28 H 26 H Rate Blood Pressure 158/96 146/92 135/84 O2 Sat by Pulse 99 98 98 Oximetry O2 Sat by Pulse Oximetry [ Anterior Bilateral Throughout] 10/18/18 10/18/18 10/18/18 14:15 14:30 14:45 Temperature Pulse Rate 115 H 110 H 112 H Pulse Rate [ From Monitor] Pulse Rate [ Right Dorsalis Pedis] Respiratory 27 H 30 H 30 H Rate Blood Pressure 141/86 129/78 133/80 O2 Sat by Pulse 99 98 98 Oximetry O2 Sat by Pulse Oximetry [ Anterior Bilateral Throughout] 10/18/18 10/18/18 10/18/18 15:00 15:15 16:00 Temperature 98.6 F Pulse Rate 112 H 111 H Pulse Rate [ From Monitor] Pulse Rate [ Right Dorsalis Pedis] Respiratory 34 H 31 H Rate Blood Pressure 139/83 136/83 O2 Sat by Pulse 99 99 Oximetry O2 Sat by Pulse Oximetry [ Anterior Bilateral Throughout] - General Appearance General appearance: cachectic, chronically ill, frail EENT: ATNC, PERRL, mucous membranes dry Neck: no JVD, no thyromegaly Respiratory: Present: Decreased Breath Sounds, Using Accesory Muscles, Increased Expir. Phase Cardiology: regular, S1S2 Gastrointestinal: normal, normoactive bowel sounds Integumentary: no rash Neurologic: confused Psychiatric: depressed - Lab 10/17/18 07:53 10/18/18 05:03 Most recent lab results Calcium 8.4 mg/dL (8.4-10.2) 10/18/18 05:03 Phosphorus 5.10 mg/dL (2.5-4.5) H 10/12/18 04:57 Magnesium 3.10 mg/dL (1.7-2.3) H 10/18/18 05:03 Urine Creatinine 30.8 mg/dL (0.1-20.0) H 10/13/18 04:43 Urine Sodium 106 mmol/L 10/13/18 04:43 Urine Total Protein 75 mg/dL (5-11.8) H 10/13/18 04:43 - Imaging Chest x-ray: image reviewed (I reviewed chest x-ray without overt consolidation or effusion) Medications & Allergies - Medications Allergies/Adverse Reactions: Allergies Sulfa (Sulfonamide Antibiotics) Allergy (Verified 10/10/18 16:54) Unknown Home Medications: Home Medications Medication Instructions Recorded Confirmed Last Taken Type Acetaminophen [Tylenol] 1,000 mg PO Q6HR 10/10/18 10/10/18 Unknown History Amlodipine Besylate [Norvasc] 10 mg PO QDAY 10/10/18 10/10/18 Unknown History Aspirin [Adult Aspirin] 81 mg PO DAILY 10/10/18 10/10/18 Unknown History Atorvastatin [Lipitor Tab] 80 mg PO DAILY 10/10/18 10/10/18 Unknown History Losartan [Cozaar] 100 mg PO QDAY 10/10/18 10/10/18 Unknown History Multivitamin [Multiple Vitamins] 1 each PO DAILY 10/10/18 10/10/18 Unknown History hydroCHLOROthiazide [HCTZ] 25 mg PO QDAY 10/10/18 10/10/18 Unknown History Active Medications: Generic Name Dose Route Start Last Admin Trade Name Freq PRN Reason Stop Dose Admin Acetaminophen 500 mg 10/16/18 10:02 10/17/18 08:06 Tylenol PO 500 mg Q6H PRN Administration Fever >101 Albuterol 2.5 mg 10/10/18 18:12 Proventil IH Q3HRT PRN Shortness Of Breath Amlodipine Besylate 10 mg 10/11/18 10:00 10/18/18 12:59 Norvasc PO 10 mg QDAY RUBI Administration Lipase/Protease/Amylase 1 each 10/11/18 12:[address] 10,500 Unit FEEDTUBE PRN PRN For Clogged Feeding Tube Atovaquone 750 mg 10/18/18 10:00 10/18/18 14:46 Mepron PO 750 mg BID RUBI Administration Carvedilol 6.25 mg 10/15/18 11:00 10/18/18 12:59 Coreg PO 6.25 mg BID RUBI Administration Haloperidol Lactate 5 mg 10/13/18 19:45 10/17/18 08:08 Haldol IV 5 mg Q6H PRN Administration Agitation Hydralazine HCl 10 mg 10/12/18 15:50 10/18/18 06:36 Apresoline IV 10 mg Q4HR PRN Administration SBP>175 or DBP>115 Hydrophilic Ointment 1 applic 10/10/18 17:53 Vaseline Lip Therapy TP Q2HR PRN Dry Lips Penicillin G Potassium 12 mil. 250 mls @ 20.833 mls/hr 10/12/18 14:00 10/18/18 15:03 units/ Sodium Chloride IV 20.833 mls/hr Q12H RUBI Administration Ganciclovir Sodium 80 mg/ 250 mls @ 100 mls/hr 10/15/18 20:00 10/17/18 22:52 Sodium Chloride IV 100 mls/hr MoWeFr RUBI Administration Sodium Chloride 100 mls @ 999 mls/hr 10/17/18 17:23 Nacl 0.9% IV CHON PRN Hypotension Lansoprazole 30 mg 10/15/18 10:00 10/18/18 12:59 Prevacid Solutab FEEDTUBE 30 mg BID RUBI Administration Lorazepam 1 mg 10/13/18 19:48 10/17/18 21:50 Ativan IV 1 mg Q4H PRN Administration agitation Metoprolol Tartrate 5 mg 10/18/18 14:05 Lopressor IV Q6HR PRN Tachyarrhythmias Multi-Ingred Cream/Lotion/Oil/Oint 1 applic 10/10/18 17:53 Artificial Tears Ophth Oint OU Q4HR PRN Dry Eye(s) Multivitamins 1 each 10/11/18 10:00 10/18/18 12:59 Theragran Tab PO 1 each DAILY RUBI Administration Simple Syrup 15 ml 10/11/18 12:58 Simple Syrup FEEDTUBE PRN PRN Hypoglycemia Simple Syrup 30 ml 10/11/18 12:58 Simple Syrup FEEDTUBE PRN PRN Hypoglycemia Sodium Bicarbonate 325 mg 10/11/18 12:58 Sodium Bicarbonate FEEDTUBE PRN PRN For Clogged Feeding Tube Sodium Chloride 10 ml 10/10/18 22:00 10/18/18 13:06 Sodium Chloride Flush Syringe 10 Ml IV Not Given BID RUBI Sodium Chloride 10 ml 10/10/18 18:12 Sodium Chloride Flush Syringe 10 Ml IV PRN PRN LINE FLUSH
[2018-10-19] MEDS: MEPRON PO SCH ×3 (00:03→22:41)
[2018-10-19] MEDS: PFIZERPEN 12 MIL.UNITS in NACL 0.9% 250ML 250 ML IV SCH ×2 (02:35→13:59)
[2018-10-19 04:47] LABS: Hematocrit 21.9 % (35.5-45.6); Hemoglobin 7.5 gm/dl (11.8-15.2); Mean Corpuscular HGB Conc 34 % (32-34); Mean Corpuscular Volume 89 fl (84-94); Red Blood Count 2.45 M/mm3 (3.65-5.03)
[2018-10-19 04:50] LABS: Platelet Count 60 K/mm3 (140-440); Red Cell Distribution Width 21.3 % (13.2-15.2)
[2018-10-19 05:02] LABS: Calcium 8.1 mg/dL (8.4-10.2)
[2018-10-19 05:46] LABS: Basophils % (Manual) 0 % (0.0-1.8); Myelocytes # (Manual) 0.1 K/mm3; Total Cells Counted 100
[2018-10-19 05:47] LABS: Anisocytosis 1+; Large Platelets 1+
[2018-10-19 05:48] LABS: Platelet Estimate Appears Decreased; Schistocytes 1+
--- NOTE | 2018-10-19 08:32 | Hem/Onc Progress Note ---
Assessment and Plan 1. Anemia. At admission, hemoglobin was 8.1, later low and s/p Transfusion support. 2. Platelets at admission was 20. 3. White cell count was elevated. 4. PT/INR h/o slightly elevated. 5. Renal failure. 6. ALT elevated. 7. The patient has multiple medical issues. PLAN: I will ask for a smear evaluation. I will call the lab for same. Supportive care in the interim while we looked for primary etiology. 3/ - plt better - s/p transfusion d/w dr rain and dr carrillo 10/14 - low plt - rasta ctive bleed suprapubic catheter 10/15 - plt were rising and again going down' pt had got plt transfusion LDH high - [id number] ordered smear - ordererd LDH may be high in other causes too - renal etc 10/16 - d/w path - not many schistocytes on smear - ADAMTS 13 ordered extubated 10/17 - plt low - path review ordered d/w df bello 10/18 - path report pending plt low - but no active bleeding 10/19 - pt more alert - follows commands no bleeding - Patient Problems (1) Thrombocytopenia associated with AIDS Current Visit: Yes Status: Acute Subjective Date of service: 10/19/18 Principal diagnosis: low plt Interval history: pt more alert - follows commands Objective - Constitutional Vitals: Last Vital Signs Temp 97.9 F 10/19/18 04:00 Pulse 115 H 10/19/18 05:16 Resp 28 H 10/19/18 05:16 BP 148/110 10/19/18 05:16 Pulse Ox 98 10/19/18 05:16 Pain Intensity (0-10): denies any pain General appearance: no acute distress Performance status: 4-completely disabled - EENT Eyes: EOM intact ENT: other (ngt) Lymph node exam: negative cervical - Neck Neck: normal ROM - Respiratory Respiratory effort: Positive: normal Respiratory: bilateral: CTA (anteriorly) - Cardiovascular Heart Sounds: Present: S1 & S2 Extremities: No edema - Gastrointestinal General gastrointestinal: Present: soft, non-tender Rectal Exam: deferred - Genitourinary Male genitourinary: Present: deferred - Integumentary Integumentary: warm - Musculoskeletal Musculoskeletal: generalized weakness - Neurologic Neurologic: other (awake) - Labs Lab Results: Laboratory Results - last 24 hr 10/16/18 10/18/18 10/18/18 07:00 05:03 21:12 WBC RBC Hgb Hct MCV MCH MCHC RDW Plt Count Add Manual Diff Total Counted Seg Neuts % (Manual) Band Neutrophils % Lymphocytes % (Manual) Reactive Lymphs % (Man) Monocytes % (Manual) Eosinophils % (Manual) Basophils % (Manual) Metamyelocytes % Myelocytes % Promyelocytes % Blast Cells % Nucleated RBC % Seg Neutrophils # Man Band Neutrophils # Lymphocytes # (Manual) Abs React Lymphs (Man) Monocytes # (Manual) Eosinophils # (Manual) Basophils # (Manual) Metamyelocytes # Myelocytes # Promyelocytes # Blast Cells # WBC Morphology Hypersegmented Neuts Hyposegmented Neuts Hypogranular Neuts Smudge Cells Toxic Granulation Toxic Vacuolation Dohle Bodies Pelger-Huet Anomaly Kartik Rods Platelet Estimate Clumped Platelets Plt Clumps, EDTA Large Platelets Giant Platelets Platelet Satelliting Plt Morphology Comment RBC Morphology Dimorphic RBCs Polychromasia Hypochromasia Poikilocytosis Anisocytosis Microcytosis Macrocytosis Spherocytes Pappenheimer Bodies Sickle Cells Target Cells Tear Drop Cells Ovalocytes Helmet Cells Smith-Gilman Bodies Motley Rings [place] Cells Bite Cells Crenated Cell Elliptocytes Acanthocytes (Spur) Rouleaux Hemoglobin C Crystals Schistocytes Malaria parasites Jv Bodies Hem Pathologist Commnt Sodium Potassium Chloride Carbon Dioxide Anion Gap BUN Creatinine Estimated GFR BUN/Creatinine Ratio Glucose POC Glucose 120 H Calcium Magnesium 3.10 H Miscellaneous Test Flexitest 1 10/19/18 10/19/18 03:38 03:38 WBC 7.1 RBC 2.45 L Hgb 7.5 L Hct 21.9 L MCV 89 MCH 31 MCHC 34 RDW 21.3 H Plt Count 60 L Add Manual Diff Complete Total Counted 100 Seg Neuts % (Manual) 81.0 H Band Neutrophils % 0 Lymphocytes % (Manual) 8.0 L Reactive Lymphs % (Man) 0 Monocytes % (Manual) 3.0 Eosinophils % (Manual) 6.0 H Basophils % (Manual) 0 Metamyelocytes % 1.0 Myelocytes % 1.0 Promyelocytes % 0 Blast Cells % 0 Nucleated RBC % 104.0 H Seg Neutrophils # Man 7.1 Band Neutrophils # 0.0 Lymphocytes # (Manual) 0.7 L Abs React Lymphs (Man) 0.0 Monocytes # (Manual) 0.3 Eosinophils # (Manual) 0.5 H Basophils # (Manual) 0.0 Metamyelocytes # 0.1 Myelocytes # 0.1 Promyelocytes # 0.0 Blast Cells # 0.0 WBC Morphology Not Reportable Hypersegmented Neuts Not Reportable Hyposegmented Neuts Not Reportable Hypogranular Neuts Not Reportable Smudge Cells Not Reportable Toxic Granulation Not Reportable Toxic Vacuolation Not Reportable Dohle Bodies Not Reportable Pelger-Huet Anomaly Not Reportable Kartik Rods Not Reportable Platelet Estimate Appears decreased Clumped Platelets Not Reportable Plt Clumps, EDTA Not Reportable Large Platelets 1+ Giant Platelets Not Reportable Platelet Satelliting Not Reportable Plt Morphology Comment Not Reportable RBC Morphology Not Reportable Dimorphic RBCs Not Reportable Polychromasia Not Reportable Hypochromasia Not Reportable Poikilocytosis Not Reportable Anisocytosis 1+ Microcytosis Not Reportable Macrocytosis Not Reportable Spherocytes Not Reportable Pappenheimer Bodies Not Reportable Sickle Cells Not Reportable Target Cells Not Reportable Tear Drop Cells Not Reportable Ovalocytes Not Reportable Helmet Cells Not Reportable Smith-Gilman Bodies Not Reportable Motley Rings Not Reportable Jani Cells Not Reportable Bite Cells Not Reportable Crenated Cell Not Reportable Elliptocytes Not Reportable Acanthocytes (Spur) Not Reportable Rouleaux Not Reportable Hemoglobin C Crystals Not Reportable Schistocytes 1+ Malaria parasites Not Reportable Jv Bodies Not Reportable Hem Pathologist Commnt No Sodium 141 Potassium 4.6 Chloride 99.0 Carbon Dioxide 24 Anion Gap 23 BUN 74 H Creatinine 8.7 H Estimated GFR 8 BUN/Creatinine Ratio 9 Glucose 134 H POC Glucose Calcium 8.1 L Magnesium Miscellaneous Test Medications & Allergies - Medications Allergies/Adverse Reactions: Allergies Sulfa (Sulfonamide Antibiotics) Allergy (Verified 10/10/18 16:54) Unknown Home Medications: Home Medications Medication Instructions Recorded Confirmed Last Taken Type Acetaminophen [Tylenol] 1,000 mg PO Q6HR 10/10/18 10/10/18 Unknown History Amlodipine Besylate [Norvasc] 10 mg PO QDAY 10/10/18 10/10/18 Unknown History Aspirin [Adult Aspirin] 81 mg PO DAILY 10/10/18 10/10/18 Unknown History Atorvastatin [Lipitor Tab] 80 mg PO DAILY 10/10/18 10/10/18 Unknown History Losartan [Cozaar] 100 mg PO QDAY 10/10/18 10/10/18 Unknown History Multivitamin [Multiple Vitamins] 1 each PO DAILY 10/10/18 10/10/18 Unknown History hydroCHLOROthiazide [HCTZ] 25 mg PO QDAY 10/10/18 10/10/18 Unknown History Active Medications: Generic Name Dose Route Start Last Admin Trade Name Freq PRN Reason Stop Dose Admin Acetaminophen 500 mg 10/16/18 10:02 10/17/18 08:06 Tylenol PO 500 mg Q6H PRN Administration Fever >101 Albuterol 2.5 mg 10/10/18 18:12 Proventil IH Q3HRT PRN Shortness Of Breath Amlodipine Besylate 10 mg 10/11/18 10:00 10/18/18 12:59 Norvasc PO 10 mg QDAY RUBI Administration Lipase/Protease/Amylase 1 each 10/11/18 12:58 Pancreazkarlos Reed 10,500 Unit FEEDTUBE PRN PRN For Clogged Feeding Tube Atovaquone 750 mg 10/18/18 10:00 10/19/18 00:03 Mepron PO 750 mg BID RUBI Administration Carvedilol 6.25 mg 10/15/18 11:00 10/18/18 21:21 Coreg PO 6.25 mg BID RUBI Administration Haloperidol Lactate 5 mg 10/13/18 19:45 10/17/18 08:08 Haldol IV 5 mg Q6H PRN Administration Agitation Hydralazine HCl 10 mg 10/12/18 15:50 10/18/18 06:36 Apresoline IV 10 mg Q4HR PRN Administration SBP>175 or DBP>115 Hydrophilic Ointment 1 applic 10/10/18 17:53 Vaseline Lip Therapy TP Q2HR PRN Dry Lips Penicillin G Potassium 12 mil. 250 mls @ 20.833 mls/hr 10/12/18 14:00 10/19/18 02:35 units/ Sodium Chloride IV 20.833 mls/hr Q12H RUBI Administration Ganciclovir Sodium 80 mg/ 250 mls @ 100 mls/hr 10/15/18 20:00 10/17/18 22:52 Sodium Chloride IV 100 mls/hr MoWeFr RUBI Administration Sodium Chloride 100 mls @ 999 mls/hr 10/17/18 17:23 Nacl 0.9% IV CHON PRN Hypotension Lansoprazole 30 mg 10/15/18 10:00 10/18/18 21:21 Prevacid Solutab FEEDTUBE 30 mg BID RUBI Administration Lorazepam 1 mg 10/13/18 19:48 10/17/18 21:50 Ativan IV 1 mg Q4H PRN Administration agitation Metoprolol Tartrate 5 mg 10/18/18 14:05 Lopressor IV Q6HR PRN Tachyarrhythmias Multi-Ingred Cream/Lotion/Oil/Oint 1 applic 10/10/18 17:53 Artificial Tears Ophth Oint OU Q4HR PRN Dry Eye(s) Multivitamins 1 each 10/11/18 10:00 10/18/18 12:59 Theragran Tab PO 1 each DAILY RUBI Administration Simple Syrup 15 ml 10/11/18 12:58 Simple Syrup FEEDTUBE PRN PRN Hypoglycemia Simple Syrup 30 ml 10/11/18 12:58 Simple Syrup FEEDTUBE PRN PRN Hypoglycemia Sodium Bicarbonate 325 mg 10/11/18 12:58 Sodium Bicarbonate FEEDTUBE PRN PRN For Clogged Feeding Tube Sodium Chloride 10 ml 10/10/18 22:00 10/18/18 21:23 Sodium Chloride Flush Syringe 10 Ml IV 10 ml BID RUBI Administration Sodium Chloride 10 ml 10/10/18 18:12 Sodium Chloride Flush Syringe 10 Ml IV PRN PRN LINE FLUSH
--- NOTE | 2018-10-19 09:48 | Consultation ---
History of Present Illness Consult date: 10/19/18 History of present illness: Cardiology consulted with 5-6 beats wide complex QRS Patient is more awake and alert this morning Patient denies chest pain or shortness of breath Tele is showing sinus tachycardia Past History Past Medical History: HIV/AIDS, hypertension, stroke Past Surgical History: No surgical history, Other (reviewed) Social history: single, smoking. denies: alcohol abuse, prescription drug abuse Family history: hypertension Medications and Allergies Allergies Allergy/AdvReac Type Severity Reaction Status Date / Time Sulfa (Sulfonamide Allergy Unknown Verified 10/10/18 16:54 Antibiotics) Home Medications Medication Instructions Recorded Confirmed Last Taken Type Acetaminophen [Tylenol] 1,000 mg PO Q6HR 10/10/18 10/10/18 Unknown History Amlodipine Besylate [Norvasc] 10 mg PO QDAY 10/10/18 10/10/18 Unknown History Aspirin [Adult Aspirin] 81 mg PO DAILY 10/10/18 10/10/18 Unknown History Atorvastatin [Lipitor Tab] 80 mg PO DAILY 10/10/18 10/10/18 Unknown History Losartan [Cozaar] 100 mg PO QDAY 10/10/18 10/10/18 Unknown History Multivitamin [Multiple Vitamins] 1 each PO DAILY 10/10/18 10/10/18 Unknown History hydroCHLOROthiazide [HCTZ] 25 mg PO QDAY 10/10/18 10/10/18 Unknown History Active Meds: Active Medications Acetaminophen (Tylenol) 500 mg PO Q6H PRN PRN Reason: Fever >101 Last Admin: 10/17/18 08:06 Dose: 500 mg Documented by: Albuterol (Proventil) 2.5 mg IH Q3HRT PRN PRN Reason: Shortness Of Breath Amlodipine Besylate (Norvasc) 10 mg PO QDAY [facility] Last Admin: 10/18/18 12:59 Dose: 10 mg Documented by: Lipase/Protease/Amylase (Pancrebecka Dr 10,500 Unit) 1 each FEEDTUBE PRN PRN PRN Reason: For Clogged Feeding Tube Atovaquone (Mepron) 750 mg PO BID [facility] Last Admin: 10/19/18 00:03 Dose: 750 mg Documented by: Carvedilol (Coreg) 6.25 mg PO BID [facility] Last Admin: 10/18/18 21:21 Dose: 6.25 mg Documented by: Haloperidol Lactate (Haldol) 5 mg IV Q6H PRN PRN Reason: Agitation Last Admin: 10/17/18 08:08 Dose: 5 mg Documented by: Hydralazine HCl (Apresoline) 10 mg IV Q4HR PRN PRN Reason: SBP>175 or DBP>115 Last Admin: 10/18/18 06:36 Dose: 10 mg Documented by: Hydrophilic Ointment (Vaseline Lip Therapy) 1 applic TP Q2HR PRN PRN Reason: Dry Lips Penicillin G Potassium 12 mil. (units/ Sodium Chloride) 250 mls @ 20.833 mls/hr IV Q12H [facility] Last Admin: 10/19/18 02:35 Dose: 20.833 mls/hr Documented by: Ganciclovir Sodium 80 mg/ (Sodium Chloride) 250 mls @ 100 mls/hr IV MoWeFr [facility] Last Admin: 10/17/18 22:52 Dose: 100 mls/hr Documented by: Sodium Chloride (Nacl 0.9%) 100 mls @ 999 mls/hr IV CHON PRN PRN Reason: Hypotension Lansoprazole (Prevacid Solutab) 30 mg FEEDTUBE BID [facility] Last Admin: 10/18/18 21:21 Dose: 30 mg Documented by: Lorazepam (Ativan) 1 mg IV Q4H PRN PRN Reason: agitation Last Admin: 10/17/18 21:50 Dose: 1 mg Documented by: Metoprolol Tartrate (Lopressor) 5 mg IV Q6HR PRN PRN Reason: Tachyarrhythmias Multi-Ingred Cream/Lotion/Oil/Oint (Artificial Tears Ophth Oint) 1 applic OU Q4HR PRN PRN Reason: Dry Eye(s) Multivitamins (Theragran Tab) 1 each PO DAILY [facility] Last Admin: 10/18/18 12:59 Dose: 1 each Documented by: Simple Syrup (Simple Syrup) 15 ml FEEDTUBE PRN PRN PRN Reason: Hypoglycemia Simple Syrup (Simple Syrup) 30 ml FEEDTUBE PRN PRN PRN Reason: Hypoglycemia Sodium Bicarbonate (Sodium Bicarbonate) 325 mg FEEDTUBE PRN PRN PRN Reason: For Clogged Feeding Tube Sodium Chloride (Sodium Chloride Flush Syringe 10 Ml) 10 ml IV BID [facility] Last Admin: 10/18/18 21:23 Dose: 10 ml Documented by: Sodium Chloride (Sodium Chloride Flush Syringe 10 Ml) 10 ml IV PRN PRN PRN Reason: LINE FLUSH Review of Systems All systems: negative Physical Examination Vital Signs Pulse BP Pulse Ox 138 H 236/167 100 10/10/18 15:06 10/10/18 15:06 10/10/18 15:06 General appearance: no acute distress Neck: Positive: neck supple Cardiac: Positive: Tachycardia Lungs: Positive: Decreased Breath Sounds Abdomen: Positive: Soft Extremities: Absent: edema Results 10/19/18 03:38 10/19/18 03:38 CBC 10/19/18 Range/Units 03:38 WBC 7.1 (4.5-11.0) K/mm3 RBC 2.45 L (3.65-5.03) M/mm3 Hgb 7.5 L (11.8-15.2) gm/dl Hct 21.9 L (35.5-45.6) % Plt Count 60 L (140-440) K/mm3 Comprehensive Metabolic Panel 10/19/18 Range/Units 03:38 Sodium 141 (137-145) mmol/L Potassium 4.6 (3.6-5.0) mmol/L Chloride 99.0 (98-107) mmol/L Carbon Dioxide 24 (22-30) mmol/L BUN 74 H (9-20) mg/dL Creatinine 8.7 H (0.8-1.5) mg/dL Glucose 134 H (75-100) mg/dL Calcium 8.1 L (8.4-10.2) mg/dL - EKG Interpretation EKG shows: tachycardia EKG interpretations - Telemetry EKG Rhythm: Sinus Tachycardia Assessment and Plan HIV Systemic Hypertension History of CVA 6 months ago at [facility] Nicotine dependence Malnutrition Sepsis - resolving s/p acute hypoxemic respiratory failure s/p acute encephalopathy - improving Anemia Thrombocytopenia Acute on chronic renal failure Type II DM BRIANNE 10/2018: No cardioembolic source, LVEF 45-50% Recommendations: No further inpatient cardiac work-up is needed for 4-5 beats NSVT in a 43 year old male who is septic with severe metabolic disturbances and preserved LVEF Continue coreg and maintain K > 4 and magnesium > 2
--- NOTE | 2018-10-19 10:14 | Progress Note ---
Assessment and Plan Cultures: Blood culture 10/10/2018 no growth. Sputum culture 10/10/2018 Ana Paula albicans. Crypto Ag 10/10/2018 neg. Urine culture 10/13/2018 no growth. Blood culture 10/17/2018 no growth. Assessment: 43 y/o male with history of HIV (unknown CD4/VL/ART intake), HTN, CVA 6 months ago at [facility], Nicotine Dependence, Malnutrition; admitted on 10/10/2018 due to AMS (confusion/lethargy) and slurred speech for 24 h: 1) Severe SIRS versus sepsis: No fever in greater than 48 H, Unclear etiology ? aspiration pneumonia +/- opportunistic brain infection - CXR neg - Unable to obtain UA - patient was anuric - BNP 70K - Troponin 0.2 - LDH 2242 2) Acute hypoxemic respiratory failure: for airway protection +/- ? pneumonia. Repeat CXR no consolidations. Ana Paula in tracha sp likely a colonizer. Extubated 10/15 3) Acute encephalopathy: not better; multifactorial ?from hypertensive urgency +/- brain opportunistic infection. DDx: Neurosyphilis, VZV/CMV encephalitis versus [employer] lymphoma versus less likely PML - CT head showed bilateral chronic ischemic changes. - Brain MRI showed areas of edema in the basal ganglia and thalami bilaterally, within the jamari and in the cerebral hemispheres bilaterally in the subcortical and deep white matter and in portions of the cortex, areas of e ncephalomalacia in the basal ganglia bilaterally with evidence of previous hemorrhage or mineral deposition and numerous small foci of acute infarct in the basal ganglia bilaterally, subinsular regions bilaterally and medial temporal lobes bilaterally and possibly in the occipital cortex bilaterally. - RPR reactive 1:32 / FTA ABs reactive - Brain MRA showed possible dissection versus artifact at the basilar artery. Luminal irregularity at the anterior, middle, and posterior cerebral arteries as well as the carotid siphons may represent mild to moderate atherosclerotic disease. More notable narrowing at the distal right A1 segment. Differential diagnosis includes motion artifact and vasculitis. Vertebral arteries are not clearly visualized. - CSF wbc 4, rbc 113, Seg 8%, Lymph 76%, protein 55, glucose 73 which is not c/w meningitis - Toxoplasma IgG negative - On ganciclovir, penicillin and high dosed mepron - CMV DNA VL=1,370, 3.1 log on ganciclovir. 4) Anemia/thrombocytopenia ? unclear etiology, worsening ?HIV myelosuppression ?disseminated MAC/CMV ?ganciclovir 5) Acute on CKD or SHRUTHI ? unclear etiology: r/o rhabdo ?ischemia. Started on HD 6) Elevated lactate ? Lactate 17. 7) DM: uncontrolled 8) Elevated LFTs ? 9) HIV/AIDS: VL 320,000 / CD4=3 on 10/11/2018 Recommendations: - f/u CSF culture, VDRL, CMV-PCR, T.gondii PCR, cryptococcal antigen - continue ganciclovir to cover empirically VZV/CMV D6 - continue on penicillin G continues infusion to cover empirically neurosyphilis D6 until CSF VDRL is back - continue meropenem 1,500 MG PO qday for PJP prophylaxis, toxo IgG negative - f/u AFB-blood culture - pending - f/u repeat blood culture Dr. Arreguin will be online activist this weekend , please call for questions. [facility] M: [phone] O:[phone] Subjective Date of service: 10/19/18 Principal diagnosis: low plt Interval history: Patient seen and examined. Alert, follows simple commands, +garbled speech. No fevers. Objective - Exam Narrative Exam: General appearance: on NC O2 in NAD, Awak, alert, no acute distress Eyes: anicteric sclerae, moist conjunctivae; no lid-lag; PERRLA HENT: Atraumatic; oropharynx limited Neck: Trachea midline; supple, no thyromegaly or lymphadenopathy Lungs: CTA, with normal respiratory effort and no intercostal retractions CV: tachycardic Abdomen: Soft, non-tender;+SP cath Extremities: No peripheral edema or extremity lymphadenopathy Skin: Normal temperature, turgor and texture; no rash, ulcers or subcutaneous nodules Psych: affect: flatl Neuro: follows simple commands, +garbled speech - Constitutional Vitals: Vital Signs Temp Pulse Resp BP Pulse Ox 97.6 F 115 H 28 H 148/110 98 10/19/18 08:00 10/19/18 05:16 10/19/18 05:16 10/19/18 05:16 10/19/18 05:16 Temperature -Last 24 Hours Temperature 97.6 F Temperature 97.9 F Temperature 98.9 F Temperature 97.3 F Temperature 98.6 F Temperature 99.7 F Temperature 97.6 F - Labs CBC & Chem 7: 10/19/18 03:38 10/19/18 03:38 Labs: Abnormal lab results 10/18/18 10/18/18 10/19/18 Range/Units 05:03 21:12 03:38 RBC (3.65-5.03) M/mm3 Hgb (11.8-15.2) gm/dl Hct (35.5-45.6) % RDW (13.2-15.2) % Plt Count (140-440) K/mm3 Seg Neuts % (Manual) (40.0-70.0) % Lymphocytes % (Manual) (13.4-35.0) % Eosinophils % (Manual) (0.0-4.3) % Nucleated RBC % (0.0-0.9) % Lymphocytes # (Manual) (1.2-5.4) K/mm3 Eosinophils # (Manual) (0.0-0.4) K/mm3 BUN 74 H (9-20) mg/dL Creatinine 8.7 H (0.8-1.5) mg/dL Glucose 134 H (75-100) mg/dL POC Glucose 120 H (70-105) Calcium 8.1 L (8.4-10.2) mg/dL Magnesium 3.10 H (1.7-2.3) mg/dL 10/19/18 Range/Units 03:38 RBC 2.45 L (3.65-5.03) M/mm3 Hgb 7.5 L (11.8-15.2) gm/dl Hct 21.9 L (35.5-45.6) % RDW 21.3 H (13.2-15.2) % Plt Count 60 L (140-440) K/mm3 Seg Neuts % (Manual) 81.0 H (40.0-70.0) % Lymphocytes % (Manual) 8.0 L (13.4-35.0) % Eosinophils % (Manual) 6.0 H (0.0-4.3) % Nucleated RBC % 104.0 H (0.0-0.9) % Lymphocytes # (Manual) 0.7 L (1.2-5.4) K/mm3 Eosinophils # (Manual) 0.5 H (0.0-0.4) K/mm3 BUN (9-20) mg/dL Creatinine (0.8-1.5) mg/dL Glucose (75-100) mg/dL POC Glucose (70-105) Calcium (8.4-10.2) mg/dL Magnesium (1.7-2.3) mg/dL
--- NOTE | 2018-10-19 10:20 | Progress Note ---
Assessment and Plan Acute respiratory failure. Bedside Oximetry 100%, on R/A Sepsis. No fever. Extensive evaluation performed for source of infection, see I D. Negative toxoplasma titers and LP Severe anemia. s/p transfusion. Chest is clear Sinus tachy- CMP,+ S3 today.cardiology following HIV/AIDS- low CD4 at 3 Acute/chronic renal failure AMS Recommendations Complete ABX Monitor fever Cards f/u regarding arrhythmias,Echo/BRIANNE findings nephrology f/u,HD Subjective Date of service: 10/19/18 Principal diagnosis: Interval history: No SOB,slight confused Objective Vital Signs - 12hr 10/18/18 10/18/18 10/18/18 22:16 22:30 22:46 Temperature Pulse Rate 109 H 106 H 105 H Pulse Rate [ From Monitor] Respiratory 33 H 29 H 23 Rate Blood Pressure 148/92 148/92 148/92 O2 Sat by Pulse 100 100 100 Oximetry 10/18/18 10/18/18 10/18/18 23:00 23:06 23:16 Temperature Pulse Rate 105 H 104 H 108 H Pulse Rate [ From Monitor] Respiratory 29 H 25 H 28 H Rate Blood Pressure 134/91 134/91 134/91 O2 Sat by Pulse 99 100 100 Oximetry 10/18/18 10/18/18 10/19/18 23:30 23:46 00:00 Temperature 98.9 F Pulse Rate 103 H 107 H 107 H Pulse Rate [ 106 H From Monitor] Respiratory 28 H 27 H 34 H Rate Blood Pressure 134/91 134/91 134/81 O2 Sat by Pulse 99 100 100 Oximetry 10/19/18 10/19/18 10/19/18 00:16 00:30 00:46 Temperature Pulse Rate 109 H 106 H 109 H Pulse Rate [ From Monitor] Respiratory 26 H 23 32 H Rate Blood Pressure 134/81 134/81 134/81 O2 Sat by Pulse 100 100 98 Oximetry 10/19/18 10/19/18 10/19/18 01:00 01:16 01:30 Temperature Pulse Rate 109 H 108 H 111 H Pulse Rate [ From Monitor] Respiratory 19 29 H 17 Rate Blood Pressure 137/88 137/88 137/88 O2 Sat by Pulse 99 98 99 Oximetry 10/19/18 10/19/18 10/19/18 01:46 02:00 02:16 Temperature Pulse Rate 110 H 110 H 113 H Pulse Rate [ From Monitor] Respiratory 26 H 28 H 30 H Rate Blood Pressure 137/88 129/90 129/90 O2 Sat by Pulse 98 99 100 Oximetry 10/19/18 10/19/18 10/19/18 02:30 02:46 03:00 Temperature Pulse Rate 112 H 111 H 108 H Pulse Rate [ From Monitor] Respiratory 21 15 28 H Rate Blood Pressure 137/88 137/88 128/78 O2 Sat by Pulse 99 99 99 Oximetry 10/19/18 10/19/18 10/19/18 03:16 03:30 03:46 Temperature Pulse Rate 114 H 110 H 111 H Pulse Rate [ From Monitor] Respiratory 23 23 26 H Rate Blood Pressure 128/78 128/78 128/78 O2 Sat by Pulse 99 99 98 Oximetry 10/19/18 10/19/18 10/19/18 04:00 04:16 04:30 Temperature 97.9 F Pulse Rate 109 H 113 H 120 H Pulse Rate [ 118 H From Monitor] Respiratory 25 H 31 H 46 H Rate Blood Pressure 127/82 127/82 127/82 O2 Sat by Pulse 99 99 100 Oximetry 10/19/18 10/19/18 10/19/18 04:46 05:00 05:16 Temperature Pulse Rate 115 H 120 H 115 H Pulse Rate [ From Monitor] Respiratory 29 H 40 H 28 H Rate Blood Pressure 127/82 148/110 148/110 O2 Sat by Pulse 98 99 98 Oximetry 10/19/18 10/19/18 10/19/18 05:30 05:46 06:00 Temperature Pulse Rate 113 H 111 H 111 H Pulse Rate [ From Monitor] Respiratory 29 H 23 29 H Rate Blood Pressure 127/82 127/82 131/87 O2 Sat by Pulse 98 98 100 Oximetry 10/19/18 10/19/18 10/19/18 06:16 06:30 06:46 Temperature Pulse Rate 106 H 109 H 112 H Pulse Rate [ From Monitor] Respiratory 30 H 29 H 29 H Rate Blood Pressure 131/87 131/87 131/87 O2 Sat by Pulse 100 100 100 Oximetry 10/19/18 10/19/18 10/19/18 07:00 07:16 07:30 Temperature Pulse Rate 111 H 111 H 110 H Pulse Rate [ From Monitor] Respiratory 18 34 H 28 H Rate Blood Pressure 136/94 136/94 131/87 O2 Sat by Pulse 99 100 100 Oximetry 10/19/18 10/19/18 10/19/18 07:46 08:00 08:16 Temperature 97.6 F Pulse Rate 113 H 112 H 112 H Pulse Rate [ From Monitor] Respiratory 31 H 35 H 29 H Rate Blood Pressure 131/87 135/96 135/96 O2 Sat by Pulse 99 98 97 Oximetry 10/19/18 10/19/18 10/19/18 08:30 08:46 09:00 Temperature Pulse Rate 116 H 112 H 112 H Pulse Rate [ From Monitor] Respiratory 31 H 19 26 H Rate Blood Pressure 135/96 135/96 129/86 O2 Sat by Pulse 99 98 98 Oximetry 10/19/18 10/19/18 10/19/18 09:16 09:30 09:46 Temperature Pulse Rate 114 H 114 H 118 H Pulse Rate [ From Monitor] Respiratory 28 H 27 H 33 H Rate Blood Pressure 129/86 129/86 129/86 O2 Sat by Pulse 99 98 99 Oximetry 10/19/18 10:00 Temperature Pulse Rate 111 H Pulse Rate [ From Monitor] Respiratory 26 H Rate Blood Pressure 131/86 O2 Sat by Pulse 99 Oximetry Constitutional: no acute distress, alert Eyes: non-icteric Neck: supple, no JVD Effort: mildly labored Ascultation: Bilateral: clear, diminished breath sounds Percussion: Bilateral: not dull Cardiovascular: regular rate and rhythm (sinus tach), other (+ S3 gallop at apex) Gastrointestinal: normoactive bowel sounds, other (now with suprapubic catheter) Extremities: no cyanosis, no edema Neurologic: pupils equal and round, CN II-XII normal CBC and BMP: 10/19/18 03:38 10/19/18 03:38 ABG, PT/INR, D-dimer: ABG POC ABG pH 7.552 (7.35-7.45) H 10/15/18 19:22 POC ABG pCO2 34.8 (35-45) L 10/15/18 19:22 POC ABG pO2 195 (80-105) H 10/15/18 19:22 POC ABG HCO3 30.6 10/15/18 19:22 POC ABG Total CO2 32 10/15/18 19:22 POC ABG O2 Sat 100 10/15/18 19:22 PT/INR, D-dimer PT 14.5 Sec. (12.2-14.9) 10/15/18 00:59 INR 1.06 (0.87-1.13) 10/15/18 00:59 Abnormal lab findings: Abnormal Labs 10/10/18 10/10/18 10/10/18 15:02 15:02 15:02 WBC RBC 2.38 L Hgb 8.1 L Hct 24.9 L MCV 105 H MCH 34 H MCHC RDW 21.4 H Plt Count 20 L Seg Neuts % (Manual) 84.0 H Lymphocytes % (Manual) 8.0 L Monocytes % (Manual) Eosinophils % (Manual) Basophils % (Manual) Nucleated RBC % Seg Neutrophils # Man 7.8 H Abs Lymphs (Manual) Lymphocytes # (Manual) 0.7 L Monocytes # (Manual) Eosinophils # (Manual) Basophils # (Manual) PT 16.2 H INR 1.22 H POC ABG pH POC ABG pCO2 POC ABG pO2 Sodium 136 L Potassium Chloride 88.2 L Carbon Dioxide 8 L* BUN 70 H Creatinine 5.6 H Glucose 331 H POC Glucose Lactic Acid Uric Acid Calcium Phosphorus Magnesium TIBC Ferritin Total Bilirubin Direct Bilirubin AST ALT Alkaline Phosphatase Lactate Dehydrogenase Troponin T 0.298 H* NT-Pro-B Natriuret Pep Total Protein Albumin Triglycerides 329 H Cholesterol 234 H LDL Cholesterol Direct 139 H Vitamin B12 Urine Creatinine Urine Total Protein Lymph Enumerat CD4/CD8 Absolute CD3 Count % CD4 Cells Absolute CD4 Count % CD8 Cells Absolute CD19 Count T.pallidum Ab (FTA-ABS) HIV-1 RNA PCR copies/ml HIV-1 RNA (PCR) log Crossmatch 10/10/18 10/10/18 10/10/18 15:05 15:29 15:42 WBC RBC Hgb Hct MCV MCH MCHC RDW Plt Count Seg Neuts % (Manual) Lymphocytes % (Manual) Monocytes % (Manual) Eosinophils % (Manual) Basophils % (Manual) Nucleated RBC % Seg Neutrophils # Man Abs Lymphs (Manual) Lymphocytes # (Manual) Monocytes # (Manual) Eosinophils # (Manual) Basophils # (Manual) PT INR POC ABG pH POC ABG pCO2 POC ABG pO2 Sodium Potassium Chloride Carbon Dioxide BUN Creatinine Glucose POC Glucose 274 H Lactic Acid 17.90 H* Uric Acid Calcium Phosphorus Magnesium TIBC Ferritin Total Bilirubin Direct Bilirubin AST ALT Alkaline Phosphatase Lactate Dehydrogenase Troponin T NT-Pro-B Natriuret Pep Total Protein Albumin Triglycerides Cholesterol LDL Cholesterol Direct Vitamin B12 Urine Creatinine Urine Total Protein Lymph Enumerat CD4/CD8 Absolute CD3 Count % CD4 Cells Absolute CD4 Count % CD8 Cells Absolute CD19 Count T.pallidum Ab (FTA-ABS) HIV-1 RNA PCR copies/ml HIV-1 RNA (PCR) log Crossmatch See Detail 10/10/18 10/10/18 10/10/18 15:42 16:22 16:54 WBC RBC Hgb Hct MCV MCH MCHC RDW Plt Count Seg Neuts % (Manual) Lymphocytes % (Manual) Monocytes % (Manual) Eosinophils % (Manual) Basophils % (Manual) Nucleated RBC % Seg Neutrophils # Man Abs Lymphs (Manual) Lymphocytes # (Manual) Monocytes # (Manual) Eosinophils # (Manual) Basophils # (Manual) PT INR POC ABG pH POC ABG pCO2 9.0 L POC ABG pO2 140 H Sodium Potassium Chloride Carbon Dioxide BUN Creatinine Glucose POC Glucose Lactic Acid Uric Acid Calcium Phosphorus Magnesium TIBC Ferritin Total Bilirubin 1.50 H Direct Bilirubin 0.4 H AST 105 H ALT Alkaline Phosphatase Lactate Dehydrogenase 2342 H Troponin T NT-Pro-B Natriuret Pep 72535 H Total Protein 9.2 H Albumin Triglycerides Cholesterol LDL Cholesterol Direct Vitamin B12 Urine Creatinine Urine Total Protein Lymph Enumerat CD4/CD8 Absolute CD3 Count % CD4 Cells Absolute CD4 Count % CD8 Cells Absolute CD19 Count T.pallidum Ab (FTA-ABS) HIV-1 RNA PCR copies/ml HIV-1 RNA (PCR) log Crossmatch 10/10/18 10/10/18 10/10/18 17:08 18:07 18:24 WBC RBC Hgb Hct MCV MCH MCHC RDW Plt Count Seg Neuts % (Manual) Lymphocytes % (Manual) Monocytes % (Manual) Eosinophils % (Manual) Basophils % (Manual) Nucleated RBC % Seg Neutrophils # Man Abs Lymphs (Manual) Lymphocytes # (Manual) Monocytes # (Manual) Eosinophils # (Manual) Basophils # (Manual) PT INR POC ABG pH 7.172 L POC ABG pCO2 POC ABG pO2 533 H Sodium Potassium Chloride Carbon Dioxide BUN Creatinine Glucose POC Glucose Lactic Acid 14.80 H* Uric Acid Calcium Phosphorus Magnesium TIBC Ferritin Total Bilirubin Direct Bilirubin AST ALT Alkaline Phosphatase Lactate Dehydrogenase Troponin T 0.272 H* NT-Pro-B Natriuret Pep Total Protein Albumin Triglycerides Cholesterol LDL Cholesterol Direct Vitamin B12 Urine Creatinine Urine Total Protein Lymph Enumerat CD4/CD8 Absolute CD3 Count % CD4 Cells Absolute CD4 Count % CD8 Cells Absolute CD19 Count T.pallidum Ab (FTA-ABS) HIV-1 RNA PCR copies/ml HIV-1 RNA (PCR) log Crossmatch 10/10/18 10/10/18 10/10/18 19:58 20:54 20:54 WBC RBC Hgb Hct MCV MCH MCHC RDW Plt Count Seg Neuts % (Manual) Lymphocytes % (Manual) Monocytes % (Manual) Eosinophils % (Manual) Basophils % (Manual) Nucleated RBC % Seg Neutrophils # Man Abs Lymphs (Manual) Lymphocytes # (Manual) Monocytes # (Manual) Eosinophils # (Manual) Basophils # (Manual) PT INR POC ABG pH POC ABG pCO2 POC ABG pO2 Sodium Potassium Chloride Carbon Dioxide BUN Creatinine Glucose POC Glucose Lactic Acid 11.50 H* 2.90 H* 2.90 H* Uric Acid Calcium Phosphorus Magnesium TIBC Ferritin Total Bilirubin Direct Bilirubin AST ALT Alkaline Phosphatase Lactate Dehydrogenase Troponin T NT-Pro-B Natriuret Pep Total Protein Albumin Triglycerides Cholesterol LDL Cholesterol Direct Vitamin B12 Urine Creatinine Urine Total Protein Lymph Enumerat CD4/CD8 Absolute CD3 Count % CD4 Cells Absolute CD4 Count % CD8 Cells Absolute CD19 Count T.pallidum Ab (FTA-ABS) HIV-1 RNA PCR copies/ml HIV-1 RNA (PCR) log Crossmatch 10/10/18 10/10/18 10/11/18 22:43 23:55 02:44 WBC RBC Hgb Hct MCV MCH MCHC RDW Plt Count Seg Neuts % (Manual) Lymphocytes % (Manual) Monocytes % (Manual) Eosinophils % (Manual) Basophils % (Manual) Nucleated RBC % Seg Neutrophils # Man Abs Lymphs (Manual) Lymphocytes # (Manual) Monocytes # (Manual) Eosinophils # (Manual) Basophils # (Manual) PT INR POC ABG pH POC ABG pCO2 25.9 L POC ABG pO2 192 H Sodium Potassium Chloride Carbon Dioxide BUN Creatinine Glucose POC Glucose Lactic Acid 4.60 H* 5.40 H* Uric Acid Calcium Phosphorus Magnesium TIBC Ferritin Total Bilirubin Direct Bilirubin AST ALT Alkaline Phosphatase Lactate Dehydrogenase Troponin T NT-Pro-B Natriuret Pep Total Protein Albumin Triglycerides Cholesterol LDL Cholesterol Direct Vitamin B12 Urine Creatinine Urine Total Protein Lymph Enumerat CD4/CD8 Absolute CD3 Count % CD4 Cells Absolute CD4 Count % CD8 Cells Absolute CD19 Count T.pallidum Ab (FTA-ABS) HIV-1 RNA PCR copies/ml HIV-1 RNA (PCR) log Crossmatch 10/11/18 10/11/18 10/11/18 02:55 02:55 03:34 WBC RBC 2.35 L Hgb 7.7 L Hct 22.9 L MCV 98 H MCH 33 H MCHC RDW 19.9 H Plt Count 23 L Seg Neuts % (Manual) 75.0 H Lymphocytes % (Manual) 11.0 L Monocytes % (Manual) Eosinophils % (Manual) Basophils % (Manual) Nucleated RBC % Seg Neutrophils # Man Abs Lymphs (Manual) Lymphocytes # (Manual) 1.0 L Monocytes # (Manual) Eosinophils # (Manual) Basophils # (Manual) PT INR POC ABG pH POC ABG pCO2 POC ABG pO2 Sodium Potassium 5.3 H D Chloride Carbon Dioxide 14 L BUN 74 H Creatinine 5.4 H Glucose 126 H POC Glucose Lactic Acid 5.30 H* Uric Acid Calcium 7.8 L D Phosphorus Magnesium TIBC Ferritin Total Bilirubin 1.90 H Direct Bilirubin AST 306 H ALT 89 H Alkaline Phosphatase 246 H Lactate Dehydrogenase Troponin T NT-Pro-B Natriuret Pep Total Protein Albumin 3.4 L Triglycerides Cholesterol LDL Cholesterol Direct Vitamin B12 Urine Creatinine Urine Total Protein Lymph Enumerat CD4/CD8 Absolute CD3 Count % CD4 Cells Absolute CD4 Count % CD8 Cells Absolute CD19 Count T.pallidum Ab (FTA-ABS) HIV-1 RNA PCR copies/ml HIV-1 RNA (PCR) log Crossmatch 10/11/18 10/11/18 10/11/18 03:34 05:47 05:48 WBC RBC Hgb Hct MCV MCH MCHC RDW Plt Count Seg Neuts % (Manual) Lymphocytes % (Manual) Monocytes % (Manual) Eosinophils % (Manual) Basophils % (Manual) Nucleated RBC % Seg Neutrophils # Man Abs Lymphs (Manual) Lymphocytes # (Manual) Monocytes # (Manual) Eosinophils # (Manual) Basophils # (Manual) PT INR POC ABG pH 7.491 H POC ABG pCO2 24.9 L POC ABG pO2 166 H Sodium Potassium 5.2 H Chloride Carbon Dioxide 16 L BUN 80 H Creatinine 5.5 H Glucose 63 L POC Glucose Lactic Acid 3.80 H* Uric Acid Calcium 7.9 L Phosphorus Magnesium TIBC Ferritin Total Bilirubin Direct Bilirubin AST ALT Alkaline Phosphatase Lactate Dehydrogenase Troponin T NT-Pro-B Natriuret Pep Total Protein Albumin Triglycerides Cholesterol LDL Cholesterol Direct Vitamin B12 Urine Creatinine Urine Total Protein Lymph Enumerat CD4/CD8 Absolute CD3 Count % CD4 Cells Absolute CD4 Count % CD8 Cells Absolute CD19 Count T.pallidum Ab (FTA-ABS) HIV-1 RNA PCR copies/ml HIV-1 RNA (PCR) log Crossmatch 10/11/18 10/11/18 10/11/18 09:56 17:34 17:34 WBC RBC Hgb Hct MCV MCH MCHC RDW Plt Count Seg Neuts % (Manual) Lymphocytes % (Manual) Monocytes % (Manual) Eosinophils % (Manual) Basophils % (Manual) Nucleated RBC % Seg Neutrophils # Man Abs Lymphs (Manual) Lymphocytes # (Manual) Monocytes # (Manual) Eosinophils # (Manual) Basophils # (Manual) PT INR POC ABG pH POC ABG pCO2 POC ABG pO2 Sodium Potassium 3.4 L D Chloride Carbon Dioxide 17 L BUN 97 H Creatinine 7.3 H Glucose 135 H POC Glucose Lactic Acid 2.60 H* 2.30 H* Uric Acid Calcium 7.9 L Phosphorus 5.80 H Magnesium 2.70 H TIBC Ferritin Total Bilirubin Direct Bilirubin AST ALT Alkaline Phosphatase Lactate Dehydrogenase Troponin T NT-Pro-B Natriuret Pep Total Protein Albumin Triglycerides Cholesterol LDL Cholesterol Direct Vitamin B12 Urine Creatinine Urine Total Protein Lymph Enumerat CD4/CD8 Absolute CD3 Count % CD4 Cells Absolute CD4 Count % CD8 Cells Absolute CD19 Count T.pallidum Ab (FTA-ABS) HIV-1 RNA PCR copies/ml HIV-1 RNA (PCR) log Crossmatch 10/11/18 10/11/18 10/11/18 17:35 17:36 17:36 WBC RBC Hgb Hct MCV MCH MCHC RDW Plt Count Seg Neuts % (Manual) Lymphocytes % (Manual) Monocytes % (Manual) Eosinophils % (Manual) Basophils % (Manual) Nucleated RBC % Seg Neutrophils # Man Abs Lymphs (Manual) 267 L Lymphocytes # (Manual) Monocytes # (Manual) Eosinophils # (Manual) Basophils # (Manual) PT INR POC ABG pH POC ABG pCO2 POC ABG pO2 Sodium Potassium Chloride Carbon Dioxide BUN Creatinine Glucose POC Glucose Lactic Acid Uric Acid 13.4 H Calcium Phosphorus Magnesium TIBC 236 L Ferritin 94726.0 H Total Bilirubin Direct Bilirubin AST ALT Alkaline Phosphatase Lactate Dehydrogenase Troponin T NT-Pro-B Natriuret Pep Total Protein Albumin Triglycerides Cholesterol LDL Cholesterol Direct Vitamin B12 Urine Creatinine Urine Total Protein Lymph Enumerat CD4/CD8 0.01 L Absolute CD3 Count 226 L % CD4 Cells 1 L Absolute CD4 Count 3 L % CD8 Cells 82 H Absolute CD19 Count 16 L T.pallidum Ab (FTA-ABS) HIV-1 RNA PCR copies/ml HIV-1 RNA (PCR) log Crossmatch 10/11/18 10/11/18 10/11/18 17:36 19:21 20:08 WBC RBC Hgb Hct MCV MCH MCHC RDW Plt Count Seg Neuts % (Manual) Lymphocytes % (Manual) Monocytes % (Manual) Eosinophils % (Manual) Basophils % (Manual) Nucleated RBC % Seg Neutrophils # Man Abs Lymphs (Manual) Lymphocytes # (Manual) Monocytes # (Manual) Eosinophils # (Manual) Basophils # (Manual) PT INR POC ABG pH POC ABG pCO2 POC ABG pO2 Sodium Potassium Chloride Carbon Dioxide 16 L BUN 99 H Creatinine 8.1 H Glucose 147 H POC Glucose Lactic Acid 2.60 H* Uric Acid Calcium 7.7 L Phosphorus Magnesium 2.60 H TIBC Ferritin Total Bilirubin Direct Bilirubin AST ALT Alkaline Phosphatase Lactate Dehydrogenase Troponin T NT-Pro-B Natriuret Pep Total Protein Albumin Triglycerides Cholesterol LDL Cholesterol Direct Vitamin B12 Urine Creatinine Urine Total Protein Lymph Enumerat CD4/CD8 Absolute CD3 Count % CD4 Cells Absolute CD4 Count % CD8 Cells Absolute CD19 Count T.pallidum Ab (FTA-ABS) HIV-1 RNA PCR copies/ml 811964 H HIV-1 RNA (PCR) log 5.51 H Crossmatch 10/11/18 10/11/18 10/12/18 21:32 23:01 04:29 WBC RBC Hgb Hct MCV MCH MCHC RDW Plt Count Seg Neuts % (Manual) Lymphocytes % (Manual) Monocytes % (Manual) Eosinophils % (Manual) Basophils % (Manual) Nucleated RBC % Seg Neutrophils # Man Abs Lymphs (Manual) Lymphocytes # (Manual) Monocytes # (Manual) Eosinophils # (Manual) Basophils # (Manual) PT INR POC ABG pH 7.493 H POC ABG pCO2 23.1 L POC ABG pO2 176 H Sodium Potassium Chloride Carbon Dioxide BUN Creatinine Glucose POC Glucose Lactic Acid 2.60 H* 3.20 H* Uric Acid Calcium Phosphorus Magnesium TIBC Ferritin Total Bilirubin Direct Bilirubin AST ALT Alkaline Phosphatase Lactate Dehydrogenase Troponin T NT-Pro-B Natriuret Pep Total Protein Albumin Triglycerides Cholesterol LDL Cholesterol Direct Vitamin B12 Urine Creatinine Urine Total Protein Lymph Enumerat CD4/CD8 Absolute CD3 Count % CD4 Cells Absolute CD4 Count % CD8 Cells Absolute CD19 Count T.pallidum Ab (FTA-ABS) HIV-1 RNA PCR copies/ml HIV-1 RNA (PCR) log Crossmatch 10/12/18 10/12/18 10/12/18 04:57 04:57 04:57 WBC 15.0 H RBC 1.75 L Hgb 5.6 L* Hct 16.7 L* D MCV 95 H MCH MCHC RDW 20.7 H Plt Count 49 L D Seg Neuts % (Manual) 90.0 H Lymphocytes % (Manual) 4.0 L Monocytes % (Manual) Eosinophils % (Manual) Basophils % (Manual) Nucleated RBC % 12.0 H Seg Neutrophils # Man 12.3 H Abs Lymphs (Manual) Lymphocytes # (Manual) 0.5 L Monocytes # (Manual) Eosinophils # (Manual) Basophils # (Manual) PT 18.0 H INR 1.39 H POC ABG pH POC ABG pCO2 POC ABG pO2 Sodium Potassium 3.0 L D Chloride Carbon Dioxide 15 L BUN 102 H Creatinine 8.8 H Glucose 110 H POC Glucose Lactic Acid Uric Acid Calcium 7.6 L Phosphorus 5.10 H Magnesium 2.50 H TIBC Ferritin Total Bilirubin Direct Bilirubin AST 667 H ALT 298 H Alkaline Phosphatase 154 H Lactate Dehydrogenase Troponin T NT-Pro-B Natriuret Pep Total Protein Albumin 2.8 L Triglycerides Cholesterol LDL Cholesterol Direct Vitamin B12 Urine Creatinine Urine Total Protein Lymph Enumerat CD4/CD8 Absolute CD3 Count % CD4 Cells Absolute CD4 Count % CD8 Cells Absolute CD19 Count T.pallidum Ab (FTA-ABS) HIV-1 RNA PCR copies/ml HIV-1 RNA (PCR) log Crossmatch 10/12/18 10/12/18 10/12/18 06:43 14:05 Unknown WBC 14.0 H RBC 2.76 L Hgb 5.8 L* 8.7 L Hct 17.2 L* 25.1 L D MCV MCH MCHC 35 H RDW 19.0 H Plt Count 53 L Seg Neuts % (Manual) Lymphocytes % (Manual) 5.0 L Monocytes % (Manual) Eosinophils % (Manual) Basophils % (Manual) Nucleated RBC % 40.0 H Seg Neutrophils # Man 9.0 H Abs Lymphs (Manual) Lymphocytes # (Manual) 0.7 L Monocytes # (Manual) Eosinophils # (Manual) Basophils # (Manual) PT INR POC ABG pH POC ABG pCO2 POC ABG pO2 Sodium Potassium Chloride Carbon Dioxide BUN Creatinine Glucose POC Glucose Lactic Acid Uric Acid Calcium Phosphorus Magnesium TIBC Ferritin Total Bilirubin Direct Bilirubin AST ALT Alkaline Phosphatase Lactate Dehydrogenase Troponin T NT-Pro-B Natriuret Pep Total Protein Albumin Triglycerides Cholesterol LDL Cholesterol Direct Vitamin B12 Urine Creatinine Urine Total Protein Lymph Enumerat CD4/CD8 Absolute CD3 Count % CD4 Cells Absolute CD4 Count % CD8 Cells Absolute CD19 Count T.pallidum Ab (FTA-ABS) Reactive H HIV-1 RNA PCR copies/ml HIV-1 RNA (PCR) log Crossmatch 10/13/18 10/13/18 10/13/18 03:40 03:40 03:40 WBC 11.5 H RBC 2.58 L Hgb 8.2 L Hct 22.9 L MCV MCH MCHC 36 H RDW 19.5 H Plt Count 123 L D Seg Neuts % (Manual) 93.0 H Lymphocytes % (Manual) 0 L Monocytes % (Manual) Eosinophils % (Manual) Basophils % (Manual) Nucleated RBC % 44.0 H Seg Neutrophils # Man 10.7 H Abs Lymphs (Manual) Lymphocytes # (Manual) 0.0 L Monocytes # (Manual) Eosinophils # (Manual) Basophils # (Manual) PT 15.6 H INR 1.17 H POC ABG pH POC ABG pCO2 POC ABG pO2 Sodium Potassium 3.3 L Chloride Carbon Dioxide 21 L BUN 51 H Creatinine 5.7 H Glucose 140 H POC Glucose Lactic Acid Uric Acid Calcium 7.9 L Phosphorus Magnesium TIBC Ferritin Total Bilirubin Direct Bilirubin AST 367 H ALT 238 H Alkaline Phosphatase 134 H Lactate Dehydrogenase Troponin T NT-Pro-B Natriuret Pep Total Protein 6.2 L Albumin 2.5 L Triglycerides Cholesterol LDL Cholesterol Direct Vitamin B12 Urine Creatinine Urine Total Protein Lymph Enumerat CD4/CD8 Absolute CD3 Count % CD4 Cells Absolute CD4 Count % CD8 Cells Absolute CD19 Count T.pallidum Ab (FTA-ABS) HIV-1 RNA PCR copies/ml HIV-1 RNA (PCR) log Crossmatch 10/13/18 10/13/18 10/14/18 04:10 04:43 04:34 WBC RBC 2.47 L Hgb 7.7 L Hct 21.9 L MCV MCH MCHC 35 H RDW 21.2 H Plt Count 40 L Seg Neuts % (Manual) Lymphocytes % (Manual) Monocytes % (Manual) Eosinophils % (Manual) Basophils % (Manual) Nucleated RBC % Seg Neutrophils # Man Abs Lymphs (Manual) Lymphocytes # (Manual) Monocytes # (Manual) Eosinophils # (Manual) Basophils # (Manual) PT INR POC ABG pH 7.522 H POC ABG pCO2 29.1 L POC ABG pO2 132 H Sodium Potassium Chloride Carbon Dioxide BUN Creatinine Glucose POC Glucose Lactic Acid Uric Acid Calcium Phosphorus Magnesium TIBC Ferritin Total Bilirubin Direct Bilirubin AST ALT Alkaline Phosphatase Lactate Dehydrogenase Troponin T NT-Pro-B Natriuret Pep Total Protein Albumin Triglycerides Cholesterol LDL Cholesterol Direct Vitamin B12 Urine Creatinine 30.8 H Urine Total Protein 75 H Lymph Enumerat CD4/CD8 Absolute CD3 Count % CD4 Cells Absolute CD4 Count % CD8 Cells Absolute CD19 Count T.pallidum Ab (FTA-ABS) HIV-1 RNA PCR copies/ml HIV-1 RNA (PCR) log Crossmatch 10/14/18 10/14/18 10/15/18 04:34 08:51 03:14 WBC RBC 2.36 L Hgb 7.5 L Hct 21.1 L MCV MCH MCHC 36 H RDW 21.9 H Plt Count 31 L Seg Neuts % (Manual) Lymphocytes % (Manual) 8.0 L Monocytes % (Manual) 9.0 H Eosinophils % (Manual) Basophils % (Manual) 2.0 H Nucleated RBC % 129.0 H Seg Neutrophils # Man Abs Lymphs (Manual) Lymphocytes # (Manual) 0.7 L Monocytes # (Manual) Eosinophils # (Manual) Basophils # (Manual) 0.2 H PT INR POC ABG pH POC ABG pCO2 POC ABG pO2 Sodium Potassium Chloride Carbon Dioxide BUN 35 H Creatinine 5.2 H Glucose 144 H POC Glucose Lactic Acid Uric Acid Calcium Phosphorus Magnesium TIBC Ferritin Total Bilirubin Direct Bilirubin AST ALT Alkaline Phosphatase Lactate Dehydrogenase Troponin T NT-Pro-B Natriuret Pep Total Protein Albumin Triglycerides Cholesterol LDL Cholesterol Direct Vitamin B12 912.3 H Urine Creatinine Urine Total Protein Lymph Enumerat CD4/CD8 Absolute CD3 Count % CD4 Cells Absolute CD4 Count % CD8 Cells Absolute CD19 Count T.pallidum Ab (FTA-ABS) HIV-1 RNA PCR copies/ml HIV-1 RNA (PCR) log Crossmatch 10/15/18 10/15/18 10/16/18 03:14 19:22 04:07 WBC RBC 2.08 L Hgb 6.5 L Hct 18.4 L* MCV MCH MCHC 35 H RDW 22.9 H Plt Count 68 L D Seg Neuts % (Manual) Lymphocytes % (Manual) Monocytes % (Manual) Eosinophils % (Manual) Basophils % (Manual) Nucleated RBC % Seg Neutrophils # Man Abs Lymphs (Manual) Lymphocytes # (Manual) Monocytes # (Manual) Eosinophils # (Manual) Basophils # (Manual) PT INR POC ABG pH 7.552 H POC ABG pCO2 34.8 L POC ABG pO2 195 H Sodium 147 H Potassium Chloride Carbon Dioxide BUN 59 H Creatinine 8.0 H D Glucose 153 H POC Glucose Lactic Acid Uric Acid Calcium 8.3 L Phosphorus Magnesium TIBC Ferritin Total Bilirubin Direct Bilirubin AST 179 H ALT 156 H Alkaline Phosphatase 130 H Lactate Dehydrogenase Troponin T NT-Pro-B Natriuret Pep Total Protein Albumin 2.7 L Triglycerides Cholesterol LDL Cholesterol Direct Vitamin B12 Urine Creatinine Urine Total Protein Lymph Enumerat CD4/CD8 Absolute CD3 Count % CD4 Cells Absolute CD4 Count % CD8 Cells Absolute CD19 Count T.pallidum Ab (FTA-ABS) HIV-1 RNA PCR copies/ml HIV-1 RNA (PCR) log Crossmatch 10/16/18 10/16/18 10/16/18 04:07 04:07 08:31 WBC RBC Hgb Hct MCV MCH MCHC RDW Plt Count Seg Neuts % (Manual) Lymphocytes % (Manual) Monocytes % (Manual) Eosinophils % (Manual) Basophils % (Manual) Nucleated RBC % Seg Neutrophils # Man Abs Lymphs (Manual) Lymphocytes # (Manual) Monocytes # (Manual) Eosinophils # (Manual) Basophils # (Manual) PT INR POC ABG pH POC ABG pCO2 POC ABG pO2 Sodium Potassium Chloride Carbon Dioxide BUN 50 H Creatinine 6.2 H Glucose 142 H POC Glucose Lactic Acid Uric Acid Calcium Phosphorus Magnesium TIBC Ferritin Total Bilirubin Direct Bilirubin AST 136 H 134 H ALT 106 H 107 H Alkaline Phosphatase Lactate Dehydrogenase Troponin T NT-Pro-B Natriuret Pep Total Protein Albumin 2.7 L 2.8 L Triglycerides Cholesterol LDL Cholesterol Direct Vitamin B12 Urine Creatinine Urine Total Protein Lymph Enumerat CD4/CD8 Absolute CD3 Count % CD4 Cells Absolute CD4 Count % CD8 Cells Absolute CD19 Count T.pallidum Ab (FTA-ABS) HIV-1 RNA PCR copies/ml HIV-1 RNA (PCR) log Crossmatch See Detail 10/16/18 10/17/18 10/17/18 11:24 04:20 07:53 WBC RBC 2.86 L Hgb 8.5 L Hct 25.1 L D MCV MCH MCHC RDW 19.0 H Plt Count 63 L Seg Neuts % (Manual) Lymphocytes % (Manual) 3.0 L Monocytes % (Manual) 14.0 H Eosinophils % (Manual) Basophils % (Manual) Nucleated RBC % 45.0 H Seg Neutrophils # Man 9.8 H Abs Lymphs (Manual) Lymphocytes # (Manual) 0.4 L Monocytes # (Manual) 2.0 H Eosinophils # (Manual) Basophils # (Manual) PT INR POC ABG pH POC ABG pCO2 POC ABG pO2 Sodium 146 H Potassium Chloride Carbon Dioxide 19 L BUN 82 H Creatinine 9.1 H Glucose 117 H POC Glucose 144 H Lactic Acid Uric Acid Calcium Phosphorus Magnesium TIBC Ferritin Total Bilirubin Direct Bilirubin AST 127 H ALT 84 H Alkaline Phosphatase Lactate Dehydrogenase Troponin T NT-Pro-B Natriuret Pep Total Protein Albumin 3.0 L Triglycerides Cholesterol LDL Cholesterol Direct Vitamin B12 Urine Creatinine Urine Total Protein Lymph Enumerat CD4/CD8 Absolute CD3 Count % CD4 Cells Absolute CD4 Count % CD8 Cells Absolute CD19 Count T.pallidum Ab (FTA-ABS) HIV-1 RNA PCR copies/ml HIV-1 RNA (PCR) log Crossmatch 10/17/18 10/18/18 10/18/18 07:53 05:03 05:03 WBC RBC Hgb Hct MCV MCH MCHC RDW Plt Count Seg Neuts % (Manual) Lymphocytes % (Manual) Monocytes % (Manual) Eosinophils % (Manual) Basophils % (Manual) Nucleated RBC % Seg Neutrophils # Man Abs Lymphs (Manual) Lymphocytes # (Manual) Monocytes # (Manual) Eosinophils # (Manual) Basophils # (Manual) PT INR POC ABG pH POC ABG pCO2 POC ABG pO2 Sodium 147 H Potassium 5.1 H Chloride Carbon Dioxide 19 L 19 L BUN 89 H 115 H Creatinine 9.5 H 12.0 H Glucose 122 H 210 H POC Glucose Lactic Acid Uric Acid Calcium Phosphorus Magnesium 3.10 H TIBC Ferritin Total Bilirubin Direct Bilirubin AST ALT Alkaline Phosphatase Lactate Dehydrogenase Troponin T NT-Pro-B Natriuret Pep Total Protein Albumin Triglycerides Cholesterol LDL Cholesterol Direct Vitamin B12 Urine Creatinine Urine Total Protein Lymph Enumerat CD4/CD8 Absolute CD3 Count % CD4 Cells Absolute CD4 Count % CD8 Cells Absolute CD19 Count T.pallidum Ab (FTA-ABS) HIV-1 RNA PCR copies/ml HIV-1 RNA (PCR) log Crossmatch 10/18/18 10/19/18 10/19/18 21:12 03:38 03:38 WBC RBC 2.45 L Hgb 7.5 L Hct 21.9 L MCV MCH MCHC RDW 21.3 H Plt Count 60 L Seg Neuts % (Manual) 81.0 H Lymphocytes % (Manual) 8.0 L Monocytes % (Manual) Eosinophils % (Manual) 6.0 H Basophils % (Manual) Nucleated RBC % 104.0 H Seg Neutrophils # Man Abs Lymphs (Manual) Lymphocytes # (Manual) 0.7 L Monocytes # (Manual) Eosinophils # (Manual) 0.5 H Basophils # (Manual) PT INR POC ABG pH POC ABG pCO2 POC ABG pO2 Sodium Potassium Chloride Carbon Dioxide BUN 74 H Creatinine 8.7 H Glucose 134 H POC Glucose 120 H Lactic Acid Uric Acid Calcium 8.1 L Phosphorus Magnesium TIBC Ferritin Total Bilirubin Direct Bilirubin AST ALT Alkaline Phosphatase Lactate Dehydrogenase Troponin T NT-Pro-B Natriuret Pep Total Protein Albumin Triglycerides Cholesterol LDL Cholesterol Direct Vitamin B12 Urine Creatinine Urine Total Protein Lymph Enumerat CD4/CD8 Absolute CD3 Count % CD4 Cells Absolute CD4 Count % CD8 Cells Absolute CD19 Count T.pallidum Ab (FTA-ABS) HIV-1 RNA PCR copies/ml HIV-1 RNA (PCR) log Crossmatch
[2018-10-19] MEDS ORDERED: SODIUM BICARBONATE FEEDTUBE PRN (10:52)
[2018-10-19] MEDS ORDERED: SIMPLE SYRUP FEEDTUBE PRN ×2 (10:52)
[2018-10-19] MEDS ORDERED: PANCREAZE DR 10,500 UNIT FEEDTUBE PRN (10:52)
[2018-10-19] MEDS: COREG PO SCH ×2 (11:13→22:41)
[2018-10-19] MEDS: NORVASC PO SCH (11:13)
[2018-10-19] MEDS: PREVACID SOLUTAB FEEDTUBE SCH ×2 (11:13→22:40)
[2018-10-19] MEDS: THERAGRAN Tab PO SCH (11:14)
[2018-10-19] MEDS: SODIUM CHLORIDE FLUSH SYRINGE 10 ML IV SCH (11:15)
[2018-10-19] MEDS: TYLENOL PO PRN (12:42)
--- NOTE | 2018-10-19 15:06 | Progress Note ---
Assessment and Plan / Acute encephalopathy, improved Able to follow commend today and wide alert Neurology following, likely from possible vaculitis vs neurosyphilis Acute CVA?? continue to treat underlying possible cause /Acute resp failure s/p intubated in ED Intubated for airway protection, patient was very lethargic and confused on admission Pulm following, self extubated 10/16/18 Continue nebs frequent suctioning and supplemental O2 as needed /HIV/AIDS No previous records available ID Physician following VL 320,000 / CD4=3 on 10/11/2018 /Acute CVA with Bilateral infarcts with edema Consulted Neurology, he was evaluated by DR. Valentine. Could be due to possible vasculitis - further workup pending She does not recommend anti-platelets /SHRUTHI due to ATN patient started on hemodialysis Baseline unknown /Urinary retention Unable to place Ricketts catheter Consulted and called Dr. Paula, urology and he came and placed suprapubic catheter patient now on HD /Severe Sepsis with syphilis and HIV - s/p LP, but initial work up doesv not corelate with meningitis Per ID: - f/u CSF culture, VDRL, CMV-PCR, T.gondii PCR, cryptococcal antigen - continue ganciclovir to cover empirically VZV/CMV D6 - continue on penicillin G continues infusion to cover empirically neurosyphilis D5 until CSF VDRL is back - cont meprom 1,500 MG PO qday for PJP prophylaxis, toxo IgG negative - f/u CMV DNA PCR and AFB-blood culture - all pending - negative repeat blood culture /Thrombocytopenia, Likely from severe sepsis s/p 2 Units platelets transfused, continue to monitor /Anemia, multifactorial s/p total 4 Units PRBC, stool positive for occult blood Seen by GI, conservative management /Hyperkalemia, resolved /Elevated LFT, from possible underlying sepsis and HIV - Continue to trend /Hyperlipidemia, low fat TF diet /Hypertensive urgency. Started on cardene drip, wean off as tolerated /Elevated Troponin Likely due to kidney disease, 2-D echo 45-50% Prognosis guarded Full code status. transfer to tele today brief History patient is 43 YO Male with HIV, hypertension, previous stroke, Nicotine Dependence, presents to ED for evaluation. Patient was confused and lethargic and unable to provide history. He was seen and evaluated in ED and found to be in distress and unable to protect his airway and was therefore intubated, placed on ventilator and admitted to ICU. Patient diagnosed with acute resp failure, renal failure(acute vs acute on chronic) , Encephalopathy, Acidosis. He continues to have fevers, followed by ID Physician for HIV/AIDS. renal failure worsened therefore started on hemodialysis. s/p LP on 10/16, workup sofar negative for meningitis. He is positive for RPR - getting treated for syphilis Hospitalist Physical GEN: Not in acute distress, more alert HEENT: Normocephalic, atraumatic, Neck: supple, No JVD Lungs:Clear to auscultation, no wheeze Heart:S1 and S2 regular, no murmurs, rubs or gallop, Abd:soft, non tender, non distended, normal bowel sounds Ext: No edema, no clubbing or cyanosis Neuro: Follow simple commands, moves all extremity Skin: No rash Musculoskeletal: No joint swelling or tenderness Subjective Date of service: 10/19/18 Principal diagnosis: low plt, sepsis, HIV/AIDS Interval history: Patient seen and examined Self extubated himself 10/16 Continued to spike fever. boyfriend at bedside patient appears more alert and oriented today Objective - Constitutional Vitals: Vital Signs - 12hr 10/19/18 10/19/18 10/19/18 03:16 03:30 03:46 Temperature Pulse Rate 114 H 110 H 111 H Pulse Rate [ From Monitor] Respiratory 23 23 26 H Rate Blood Pressure 128/78 128/78 128/78 O2 Sat by Pulse 99 99 98 Oximetry 10/19/18 10/19/18 10/19/18 04:00 04:16 04:30 Temperature 97.9 F Pulse Rate 109 H 113 H 120 H Pulse Rate [ 118 H From Monitor] Respiratory 25 H 31 H 46 H Rate Blood Pressure 127/82 127/82 127/82 O2 Sat by Pulse 99 99 100 Oximetry 10/19/18 10/19/18 10/19/18 04:46 05:00 05:16 Temperature Pulse Rate 115 H 120 H 115 H Pulse Rate [ From Monitor] Respiratory 29 H 40 H 28 H Rate Blood Pressure 127/82 148/110 148/110 O2 Sat by Pulse 98 99 98 Oximetry 10/19/18 10/19/18 10/19/18 05:30 05:46 06:00 Temperature Pulse Rate 113 H 111 H 111 H Pulse Rate [ From Monitor] Respiratory 29 H 23 29 H Rate Blood Pressure 127/82 127/82 131/87 O2 Sat by Pulse 98 98 100 Oximetry 10/19/18 10/19/18 10/19/18 06:16 06:30 06:46 Temperature Pulse Rate 106 H 109 H 112 H Pulse Rate [ From Monitor] Respiratory 30 H 29 H 29 H Rate Blood Pressure 131/87 131/87 131/87 O2 Sat by Pulse 100 100 100 Oximetry 10/19/18 10/19/18 10/19/18 07:00 07:16 07:30 Temperature Pulse Rate 111 H 111 H 110 H Pulse Rate [ From Monitor] Respiratory 18 34 H 28 H Rate Blood Pressure 136/94 136/94 131/87 O2 Sat by Pulse 99 100 100 Oximetry 10/19/18 10/19/18 10/19/18 07:46 08:00 08:16 Temperature 97.6 F Pulse Rate 113 H 112 H 112 H Pulse Rate [ From Monitor] Respiratory 31 H 35 H 29 H Rate Blood Pressure 131/87 135/96 135/96 O2 Sat by Pulse 99 98 97 Oximetry 10/19/18 10/19/18 10/19/18 08:30 08:46 09:00 Temperature Pulse Rate 116 H 112 H 112 H Pulse Rate [ From Monitor] Respiratory 31 H 19 26 H Rate Blood Pressure 135/96 135/96 129/86 O2 Sat by Pulse 99 98 98 Oximetry 10/19/18 10/19/18 10/19/18 09:16 09:30 09:46 Temperature Pulse Rate 114 H 114 H 118 H Pulse Rate [ From Monitor] Respiratory 28 H 27 H 33 H Rate Blood Pressure 129/86 129/86 129/86 O2 Sat by Pulse 99 98 99 Oximetry 10/19/18 10/19/18 10/19/18 10:00 11:00 11:13 Temperature Pulse Rate 112 H 114 H 112 H Pulse Rate [ From Monitor] Respiratory 26 H 32 H Rate Blood Pressure 131/86 140/87 140/87 O2 Sat by Pulse 99 99 Oximetry 10/19/18 10/19/18 12:00 13:00 Temperature 100.7 F H Pulse Rate 112 H 104 H Pulse Rate [ From Monitor] Respiratory 32 H 24 Rate Blood Pressure 149/105 123/77 O2 Sat by Pulse 98 97 Oximetry - Labs CBC & Chem 7: 10/19/18 03:38 10/20/18 04:13 Labs: Abnormal lab results 10/18/18 10/19/18 10/19/18 Range/Units 21:12 03:38 03:38 RBC 2.45 L (3.65-5.03) M/mm3 Hgb 7.5 L (11.8-15.2) gm/dl Hct 21.9 L (35.5-45.6) % RDW 21.3 H (13.2-15.2) % Plt Count 60 L (140-440) K/mm3 Seg Neuts % (Manual) 81.0 H (40.0-70.0) % Lymphocytes % (Manual) 8.0 L (13.4-35.0) % Eosinophils % (Manual) 6.0 H (0.0-4.3) % Nucleated RBC % 104.0 H (0.0-0.9) % Lymphocytes # (Manual) 0.7 L (1.2-5.4) K/mm3 Eosinophils # (Manual) 0.5 H (0.0-0.4) K/mm3 BUN 74 H (9-20) mg/dL Creatinine 8.7 H (0.8-1.5) mg/dL Glucose 134 H (75-100) mg/dL POC Glucose 120 H (70-105) Calcium 8.1 L (8.4-10.2) mg/dL
--- NOTE | 2018-10-19 17:39 | Progress Note ---
Assessment and Plan - Patient Problems (1) Acute kidney injury Current Visit: Yes Status: Acute Plan to address problem: Acute kidney injury : severe creatinine worsening though urine output appears to be improving I reviewed renal Ultrasound with 10.1cm and 10.8cm kidneys bilateral echogenic Possible aetiologies of Acute kidney injury is likely 2/2 acute tubular injury ,possible underlying HIV associated nephropathy cannot be excluded . Obtain additional records if possible Hemodialysis on 10/18/2018 with ultrafiltration on 2 L We'll monitor urine output and will also follow labs We will assess dialysis needs daily We'll need tunneled dialysis catheter placement next week unless renal function improves Avoid Nephrotoxic medications. (2) Sepsis Current Visit: Yes Status: Acute Plan to address problem: Sepsis - SIRS : fever ,tachycardia and tachypnea - infectious disease is on board - multifactorial possible opportunistic infection - sputum culture with jose. Status post BRIANNE without thrombus (3) Anemia Current Visit: Yes Status: Acute Qualifiers: Chronic kidney disease stage: unspecified stage Plan to address problem: Moderate anemia 2/2 CKD and ongoing inflammation Hb: 8.5g/dl Monitor CBC. (4) Encephalopathy Current Visit: Yes Status: Acute Plan to address problem: Encephalopathy improving - Possible organic /metabolic etiology - at risk for multiple opportunistic infections. Subjective Date of service: 10/19/18 Principal diagnosis: acute kidney injury Interval history: 43 year old gentleman with medical history significant for HIV admitted with Sepsis , acute hypoxemic respiratory failure , Encephalopathy , transaminitis and worsening renal failure . Patient seen this morning oxygen saturation 99 however remains tachypneic Patient completed dialysis yesterday without any issues 2 L removed Improved urine output documented no peripheral edema. We'll monitor labs and urine output over the next 24-48 hours to determine further dialysis treatments Objective - Vital Signs Vital signs: Vital Signs - 12hr 10/19/18 10/19/18 10/19/18 05:46 06:00 06:16 Temperature Pulse Rate 111 H 111 H 106 H Respiratory 23 29 H 30 H Rate Blood Pressure 127/82 131/87 131/87 O2 Sat by Pulse 98 100 100 Oximetry 10/19/18 10/19/18 10/19/18 06:30 06:46 07:00 Temperature Pulse Rate 109 H 112 H 111 H Respiratory 29 H 29 H 18 Rate Blood Pressure 131/87 131/87 136/94 O2 Sat by Pulse 100 100 99 Oximetry 10/19/18 10/19/1810/19/19 07:16 07:30 07:46 Temperature Pulse Rate 111 H 110 H 113 H Respiratory 34 H 28 H 31 H Rate Blood Pressure 136/94 131/87 131/87 O2 Sat by Pulse 100 100 99 Oximetry 10/19/18 10/19/18 10/19/18 08:00 08:16 08:30 Temperature 97.6 F Pulse Rate 112 H 112 H 116 H Respiratory 35 H 29 H 31 H Rate Blood Pressure 135/96 135/96 135/96 O2 Sat by Pulse 98 97 99 Oximetry 10/19/18 10/19/18 10/19/18 08:46 09:00 09:16 Temperature Pulse Rate 112 H 112 H 114 H Respiratory 19 26 H 28 H Rate Blood Pressure 135/96 129/86 129/86 O2 Sat by Pulse 98 98 99 Oximetry 10/19/18 10/19/18 10/19/18 09:30 09:46 10:00 Temperature Pulse Rate 114 H 118 H 112 H Respiratory 27 H 33 H 26 H Rate Blood Pressure 129/86 129/86 131/86 O2 Sat by Pulse 98 99 99 Oximetry 10/19/18 10/19/18 10/19/18 11:00 11:13 12:00 Temperature 100.7 F H Pulse Rate 114 H 112 H 112 H Respiratory 32 H 32 H Rate Blood Pressure 140/87 140/87 149/105 O2 Sat by Pulse 99 98 Oximetry 10/19/18 10/19/18 10/19/18 13:00 14:00 15:00 Temperature Pulse Rate 104 H 104 H 108 H Respiratory 24 26 H 39 H Rate Blood Pressure 123/77 123/76 137/89 O2 Sat by Pulse 97 98 98 Oximetry 10/19/18 10/19/18 15:43 16:00 Temperature 98.0 F Pulse Rate 107 H Respiratory 34 H Rate Blood Pressure 142/93 O2 Sat by Pulse 97 Oximetry - General Appearance General appearance: well-developed, chronically ill EENT: ATNC, PERRL Neck: no JVD Respiratory: Present: Decreased Breath Sounds Cardiology: regular, S1S2 Gastrointestinal: normal, normoactive bowel sounds Neurologic: alert and oriented x3 Psychiatric: mood/affect appropriate - Lab 10/19/18 03:38 10/19/18 03:38 Most recent lab results Calcium 8.1 mg/dL (8.4-10.2) L 10/19/18 03:38 Phosphorus 5.10 mg/dL (2.5-4.5) H 10/12/18 04:57 Magnesium 3.10 mg/dL (1.7-2.3) H 10/18/18 05:03 Urine Creatinine 30.8 mg/dL (0.1-20.0) H 10/13/18 04:43 Urine Sodium 106 mmol/L 10/13/18 04:43 Urine Total Protein 75 mg/dL (5-11.8) H 10/13/18 04:43 - Imaging Chest x-ray: report reviewed (review chest x-ray without any over its edema or infiltrates) Medications & Allergies - Medications Allergies/Adverse Reactions: Allergies Sulfa (Sulfonamide Antibiotics) Allergy (Verified 10/10/18 16:54) Unknown Home Medications: Home Medications Medication Instructions Recorded Confirmed Last Taken Type Acetaminophen [Tylenol] 1,000 mg PO Q6HR 10/10/18 10/10/18 Unknown History Amlodipine Besylate [Norvasc] 10 mg PO QDAY 10/10/18 10/10/18 Unknown History Aspirin [Adult Aspirin] 81 mg PO DAILY 10/10/18 10/10/18 Unknown History Atorvastatin [Lipitor Tab] 80 mg PO DAILY 10/10/18 10/10/18 Unknown History Losartan [Cozaar] 100 mg PO QDAY 10/10/18 10/10/18 Unknown History Multivitamin [Multiple Vitamins] 1 each PO DAILY 10/10/18 10/10/18 Unknown History hydroCHLOROthiazide [HCTZ] 25 mg PO QDAY 10/10/18 10/10/18 Unknown History Active Medications: Generic Name Dose Route Start Last Admin Trade Name Freq PRN Reason Stop Dose Admin Acetaminophen 500 mg 10/16/18 10:02 10/19/18 12:42 Tylenol PO 500 mg Q6H PRN Administration Fever >101 Albuterol 2.5 mg 10/10/18 18:12 Proventil IH Q3HRT PRN Shortness Of Breath Amlodipine Besylate 10 mg 10/11/18 10:00 10/19/18 11:13 Norvasc PO 10 mg QDAY RUBI Administration Lipase/Protease/Amylase 1 each 10/11/18 12:[address] 10,500 Unit FEEDTUBE PRN PRN For Clogged Feeding Tube Atovaquone 750 mg 10/18/18 10:00 10/19/18 11:13 Mepron PO 750 mg BID RUBI Administration Carvedilol 6.25 mg 10/15/18 11:00 10/19/18 11:13 Coreg PO 6.25 mg BID RUBI Administration Haloperidol Lactate 5 mg 10/13/18 19:45 10/17/18 08:08 Haldol IV 5 mg Q6H PRN Administration Agitation Hydralazine HCl 10 mg 10/12/18 15:50 10/18/18 06:36 Apresoline IV 10 mg Q4HR PRN Administration SBP>175 or DBP>115 Hydrophilic Ointment 1 applic 10/10/18 17:53 Vaseline Lip Therapy TP Q2HR PRN Dry Lips Penicillin G Potassium 12 mil. 250 mls @ 20.833 mls/hr 10/12/18 14:00 10/19/18 13:59 units/ Sodium Chloride IV 20.833 mls/hr Q12H RUBI Administration Ganciclovir Sodium 80 mg/ 250 mls @ 100 mls/hr 10/15/18 20:00 10/17/18 22:52 Sodium Chloride IV 100 mls/hr MoWeFr RUBI Administration Sodium Chloride 100 mls @ 999 mls/hr 10/17/18 17:23 Nacl 0.9% IV CHON PRN Hypotension Lansoprazole 30 mg 10/15/18 10:00 10/19/18 11:13 Prevacid Solutab FEEDTUBE 30 mg BID RUBI Administration Lorazepam 1 mg 10/13/18 19:48 10/17/18 21:50 Ativan IV 1 mg Q4H PRN Administration agitation Metoprolol Tartrate 5 mg 10/18/18 14:05 Lopressor IV Q6HR PRN Tachyarrhythmias Multi-Ingred Cream/Lotion/Oil/Oint 1 applic 10/10/18 17:53 Artificial Tears Ophth Oint OU Q4HR PRN Dry Eye(s) Multivitamins 1 each 10/11/18 10:00 10/19/18 11:14 Theragran Tab PO 1 each DAILY RUBI Administration Simple Syrup 15 ml 10/11/18 12:58 Simple Syrup FEEDTUBE PRN PRN Hypoglycemia Simple Syrup 30 ml 10/11/18 12:58 Simple Syrup FEEDTUBE PRN PRN Hypoglycemia Sodium Bicarbonate 325 mg 10/11/18 12:58 Sodium Bicarbonate FEEDTUBE PRN PRN For Clogged Feeding Tube Sodium Chloride 10 ml 10/10/18 22:00 10/19/18 11:15 Sodium Chloride Flush Syringe 10 Ml IV 10 ml BID RUBI Administration Sodium Chloride 10 ml 10/10/18 18:12 Sodium Chloride Flush Syringe 10 Ml IV PRN PRN LINE FLUSH
--- NOTE | 2018-10-19 21:16 | XRay Report ---
PROCEDURE: XR ABDOMEN 1V AP TECHNIQUE: Abdominal radiograph, single view. HISTORY: reverify NG placement COMPARISONS: None . FINDINGS: Bowel gas pattern: Nonobstructive . Masses or calcifications: None . Bony structures: No significant abnormality . Other: NG tube is in the stomach. There is a right-sided central venous catheter. The tip is in the inferior vena cava. . IMPRESSION: There is no bowel obstruction. NG tube is in the stomach. There is a right-sided central venous catheter. The tip is in the inferior vena cava. This document is electronically signed by Gucci Knight MD., October 19 2018 09:14:31 PM ET
[2018-10-19] MEDS: CYTOVENE IV SCH (22:35)
[2018-10-19] MEDS: NACL 0.9% IV SCH (22:35)
--- NOTE | 2018-10-20 01:05 | Progress Note ---
Assessment and Plan HIV Systemic Hypertension History of CVA 6 months ago at [facility] Nicotine dependence Malnutrition Sepsis - resolving s/p acute hypoxemic respiratory failure s/p acute encephalopathy - improving Anemia Thrombocytopenia Acute on chronic renal failure Type II DM BRIANNE 10/2018: No cardioembolic source, LVEF 45-50% Recommendations: No further inpatient cardiac work-up is needed for 4-5 beats NSVT in a 43 year old male who is septic with severe metabolic disturbances and preserved LVEF Continue coreg and maximize as blood pressure and heart rate tolerate No further runs of NSVT seen on telemetry maintain K > 4 and magnesium > 2 Subjective Date of service: 10/20/18 Principal diagnosis: acute kidney injury Interval history: No acute events. Resting comfortably. No chest pain or SOB. Objective Vital Signs Temp Pulse Pulse Resp BP Pulse Ox 10/19/18 22:41 113 H 137/87 10/19/18 19:00 109 H 34 H 140/92 98 10/19/18 18:00 111 H 41 H 127/84 99 10/19/18 17:00 103 H 25 H 127/84 99 10/19/18 16:00 107 H 34 H 142/93 97 10/19/18 15:43 98.0 F 10/19/18 15:00 108 H 39 H 137/89 98 10/19/18 14:00 104 H 26 H 123/76 98 10/19/18 13:00 104 H 24 123/77 97 10/19/18 12:00 100.7 F H 112 H 32 H 149/105 98 10/19/18 11:13 112 H 140/87 10/19/18 11:00 114 H 32 H 140/87 99 10/19/18 10:00 112 H 26 H 131/86 98 10/19/18 09:46 118 H 33 H 129/86 99 10/19/18 09:30 114 H 27 H 129/86 98 10/19/18 09:16 114 H 28 H 129/86 99 10/19/18 09:00 112 H 26 H 129/86 98 10/19/18 08:46 112 H 19 135/96 98 10/19/18 08:30 116 H 31 H 135/96 99 10/19/18 08:16 112 H 29 H 135/96 97 10/19/18 08:00 97.6 F 112 H 35 H 135/96 98 10/19/18 07:46 113 H 31 H 131/87 99 10/19/18 07:30 110 H 28 H 131/87 100 10/19/18 07:16 111 H 34 H 136/94 100 10/19/18 07:00 111 H 18 136/94 99 10/19/18 06:46 112 H 29 H 131/87 100 10/19/18 06:30 109 H 29 H 131/87 100 10/19/18 06:16 106 H 30 H 131/87 100 10/19/18 06:00 111 H 29 H 131/87 100 10/19/18 05:46 111 H 23 127/82 98 10/19/18 05:30 113 H 29 H 127/82 98 10/19/18 05:16 115 H 28 H 148/110 98 10/19/18 05:00 120 H 40 H 148/110 99 10/19/18 04:46 115 H 29 H 127/82 98 10/19/18 04:30 120 H 46 H 127/82 100 10/19/18 04:16 113 H 31 H 127/82 99 10/19/18 04:00 97.9 F 109 H 118 H 25 H 127/82 99 10/19/18 03:46 111 H 26 H 128/78 98 10/19/18 03:30 110 H 23 128/78 99 10/19/18 03:16 114 H 23 128/78 99 10/19/18 03:00 108 H 28 H 128/78 99 10/19/18 02:46 111 H 15 137/88 99 10/19/18 02:30 112 H 21 137/88 99 10/19/18 02:16 113 H 30 H 129/90 100 10/19/18 02:00 110 H 28 H 129/90 99 10/19/18 01:46 110 H 26 H 137/88 98 10/19/18 01:30 111 H 17 137/88 99 10/19/18 01:16 108 H 29 H 137/88 98 - Physical Examination Neck: Positive: neck supple Abdomen: Positive: Soft Extremities: Absent: edema - Labs and Meds CBC 10/19/18 Range/Units 03:38 WBC 7.1 (4.5-11.0) K/mm3 RBC 2.45 L (3.65-5.03) M/mm3 Hgb 7.5 L (11.8-15.2) gm/dl Hct 21.9 L (35.5-45.6) % Plt Count 60 L (140-440) K/mm3 Comprehensive Metabolic Panel 10/19/18 Range/Units 03:38 Sodium 141 (137-145) mmol/L Potassium 4.6 (3.6-5.0) mmol/L Chloride 99.0 (98-107) mmol/L Carbon Dioxide 24 (22-30) mmol/L BUN 74 H (9-20) mg/dL Creatinine 8.7 H (0.8-1.5) mg/dL Glucose 134 H (75-100) mg/dL Calcium 8.1 L (8.4-10.2) mg/dL
[2018-10-20] MEDS: SODIUM CHLORIDE FLUSH SYRINGE 10 ML IV SCH ×3 (01:25→21:08)
[2018-10-20] MEDS: PFIZERPEN 12 MIL.UNITS in NACL 0.9% 250ML 250 ML IV SCH ×2 (02:13→14:37)
[2018-10-20 06:31] LABS: Calcium 8.2 mg/dL (8.4-10.2)
--- NOTE | 2018-10-20 09:09 | Hem/Onc Progress Note ---
Assessment and Plan 1. Anemia. At admission, hemoglobin was 8.1, later low and s/p Transfusion support. 2. Platelets at admission was 20. 3. White cell count was elevated. 4. PT/INR h/o slightly elevated. 5. Renal failure. 6. ALT elevated. 7. The patient has multiple medical issues. PLAN: I will ask for a smear evaluation. I will call the lab for same. Supportive care in the interim while we looked for primary etiology. 3/ - plt better - s/p transfusion d/w dr rain and dr carrillo 10/14 - low plt - rasta ctive bleed suprapubic catheter 10/15 - plt were rising and again going down' pt had got plt transfusion LDH high - [id number] ordered smear - ordererd LDH may be high in other causes too - renal etc 10/16 - d/w path - not many schistocytes on smear - ADAMTS 13 ordered extubated 10/17 - plt low - path review ordered d/w armin monsalve 10/18 - path report pending plt low - but no active bleeding 10/19 - pt more alert - follows commands no bleeding 10/20 pt SOB - d/w Dr Monsalve and RN plt low - but no bleeding NGT+ more awake - Patient Problems (1) Thrombocytopenia associated with AIDS Current Visit: Yes Status: Acute Subjective Date of service: 10/20/18 Principal diagnosis: low plt Interval history: SOB Objective - Constitutional Vitals: Last Vital Signs Temp 99.1 F 10/20/18 08:27 Pulse 118 H 10/20/18 08:27 Resp 24 10/20/18 08:27 BP 160/97 10/20/18 08:27 Pulse Ox 92 10/20/18 08:27 General appearance: mild distress Performance status: 4-completely disabled - EENT Eyes: EOM intact ENT: other (ngt+) Lymph node exam: negative cervical - Neck Neck: other (no LN) - Respiratory Respiratory effort: Positive: other (slight SOB) Respiratory: bilateral: other (secretions transmitted sounds) - Cardiovascular Heart Sounds: Present: S1 & S2 Extremities: No edema - Gastrointestinal General gastrointestinal: Present: soft, non-tender Rectal Exam: deferred - Genitourinary Male genitourinary: Present: deferred - Integumentary Integumentary: warm - Musculoskeletal Musculoskeletal: generalized weakness - Neurologic Neurologic: moves all extremities - Labs Lab Results: Laboratory Results - last 24 hr 10/16/18 10/20/18 15:00 04:13 Sodium 141 Potassium 5.8 H D Chloride 96.0 L Carbon Dioxide 19 L Anion Gap 32 BUN 97 H Creatinine 10.4 H Estimated GFR 7 BUN/Creatinine Ratio 9 Glucose 134 H Calcium 8.2 L CSF VDRL Nonreactive Medications & Allergies - Medications Allergies/Adverse Reactions: Allergies Sulfa (Sulfonamide Antibiotics) Allergy (Verified 10/10/18 16:54) Unknown Home Medications: Home Medications Medication Instructions Recorded Confirmed Last Taken Type Acetaminophen [Tylenol] 1,000 mg PO Q6HR 10/10/18 10/10/18 Unknown History Amlodipine Besylate [Norvasc] 10 mg PO QDAY 10/10/18 10/10/18 Unknown History Aspirin [Adult Aspirin] 81 mg PO DAILY 10/10/18 10/10/18 Unknown History Atorvastatin [Lipitor Tab] 80 mg PO DAILY 10/10/18 10/10/18 Unknown History Losartan [Cozaar] 100 mg PO QDAY 10/10/18 10/10/18 Unknown History Multivitamin [Multiple Vitamins] 1 each PO DAILY 10/10/18 10/10/18 Unknown History hydroCHLOROthiazide [HCTZ] 25 mg PO QDAY 10/10/18 10/10/18 Unknown History Active Medications: Generic Name Dose Route Start Last Admin Trade Name Freq PRN Reason Stop Dose Admin Acetaminophen 500 mg 10/16/18 10:02 10/19/18 12:42 Tylenol PO 500 mg Q6H PRN Administration Fever >101 Albuterol 2.5 mg 10/10/18 18:12 Proventil IH Q3HRT PRN Shortness Of Breath Amlodipine Besylate 10 mg 10/11/18 10:00 10/19/18 11:13 Norvasc PO 10 mg QDAY RUBI Administration Lipase/Protease/Amylase 1 each 10/11/18 12:58 Pancreaze 10,500 Unit FEEDTUBE PRN PRN For Clogged Feeding Tube Atovaquone 750 mg 10/18/18 10:00 10/19/18 22:41 Mepron PO 750 mg BID RUBI Administration Carvedilol 6.25 mg 10/15/18 11:00 10/19/18 22:41 Coreg PO 6.25 mg BID RUBI Administration Haloperidol Lactate 5 mg 10/13/18 19:45 10/17/18 08:08 Haldol IV 5 mg Q6H PRN Administration Agitation Hydralazine HCl 10 mg 10/12/18 15:50 10/18/18 06:36 Apresoline IV 10 mg Q4HR PRN Administration SBP>175 or DBP>115 Hydrophilic Ointment 1 applic 10/10/18 17:53 Vaseline Lip Therapy TP Q2HR PRN Dry Lips Penicillin G Potassium 12 mil. 250 mls @ 20.833 mls/hr 10/12/18 14:00 10/20/18 02:13 units/ Sodium Chloride IV 20.833 mls/hr Q12H RUBI Administration Ganciclovir Sodium 80 mg/ 250 mls @ 100 mls/hr 10/15/18 20:00 10/19/18 22:35 Sodium Chloride IV 100 mls/hr MoWeFr RUBI Administration Sodium Chloride 100 mls @ 999 mls/hr 10/17/18 17:23 Nacl 0.9% IV CHON PRN Hypotension Lansoprazole 30 mg 10/15/18 10:00 10/19/18 22:40 Prevacid Solutab FEEDTUBE 30 mg BID RUBI Administration Lorazepam 1 mg 10/13/18 19:48 10/17/18 21:50 Ativan IV 1 mg Q4H PRN Administration agitation Metoprolol Tartrate 5 mg 10/18/18 14:05 Lopressor IV Q6HR PRN Tachyarrhythmias Multi-Ingred Cream/Lotion/Oil/Oint 1 applic 10/10/18 17:53 Artificial Tears Ophth Oint OU Q4HR PRN Dry Eye(s) Multivitamins 1 each 10/11/18 10:00 10/19/18 11:14 Theragran Tab PO 1 each DAILY RUBI Administration Simple Syrup 15 ml 10/11/18 12:58 Simple Syrup FEEDTUBE PRN PRN Hypoglycemia Simple Syrup 30 ml 10/11/18 12:58 Simple Syrup FEEDTUBE PRN PRN Hypoglycemia Sodium Bicarbonate 325 mg 10/11/18 12:58 Sodium Bicarbonate FEEDTUBE PRN PRN For Clogged Feeding Tube Sodium Chloride 10 ml 10/10/18 22:00 10/20/18 01:25 Sodium Chloride Flush Syringe 10 Ml IV Not Given BID RUBI Sodium Chloride 10 ml 10/10/18 18:12 Sodium Chloride Flush Syringe 10 Ml IV PRN PRN LINE FLUSH
[2018-10-20] MEDS: NORVASC PO SCH (09:11)
[2018-10-20] MEDS: THERAGRAN Tab PO SCH (09:11)
[2018-10-20] MEDS: PREVACID SOLUTAB FEEDTUBE SCH ×2 (09:12→21:07)
[2018-10-20] MEDS: COREG PO SCH ×2 (09:12→21:08)
[2018-10-20] MEDS: MEPRON PO SCH ×2 (09:14→21:39)
[2018-10-20] MEDS ORDERED: NACL 0.9% 100 ML IV PRN (09:54)
--- NOTE | 2018-10-20 09:54 | Progress Note ---
Subjective Principal diagnosis: acute kidney injury Interval history: Patient was seen today for follow-up on multiple renal related issues Events of this hospitalization noted Dialysis dependent due to acute kidney injury Patient denies having any chest pain pressure or shortness of breath Vitals labs intake output medications were reviewed Social history: Reviewed Allergies: Reviewed Family history: Reviewed Physical examination HEENT: Oral mucosa moist no pallor or icterus Neck: Supple no JVD Chest: Clear to auscultation anteriorly CVS: Regular rate and rhythm S1 and S2 heard Abdomen: Soft nontender no suprapubic masses no organomegaly appreciable Extremity: Dry skin less than 1+ peripheral edema Musculoskeletal: No joint effusion noted in knees and ankle Neurological: Alert awake Dermatology: No petechial rashes Psychiatry: No evidence of any agitation and aggression noted Assessment and plan Acute kidney injury: Patient is currently dialysis dependent also seen in supervised on hemodialysis, current access is a dialysis catheter Etiology of renal failure appears to be due to acute kidney injury with superimposed chronic kidney disease, echogenic kidneys Continue to monitor intake and output monitor for any meaningful functional renal recovery Patient will need longer dialysis treatment today and will need a postdialysis labs He is not a candidate for kidney biopsy due to echogenic kidneys Would like to avoid nephrotoxic medications Ejection fraction 45%/nonsustained ventricular tachycardia cardiology following Pancytopenia: Slowly improving hemoglobin 7.5 platelet count 60,000 Severe protein calorie malnutrition patient needs to be in high protein diet Hyperkalemia: Potassium noted to be 5.8 with a BUN of 97 creatinine 10.4 10/20/2018 Patient was adequately counseled and educated regarding multiple renal related issues Pertinent lab findings were discussed with patient, patient does exhibit good understanding of renal issues We'll continue to follow and make recommendation from renal standpoint Objective - Vital Signs Vital signs: Vital Signs - 12hr 10/19/18 10/19/18 10/19/18 22:00 22:10 22:20 Temperature Pulse Rate 112 H 115 H 115 H Pulse Rate [ From Monitor] Respiratory 35 H 30 H 31 H Rate Blood Pressure 137/87 137/87 137/87 Blood Pressure [Right] O2 Sat by Pulse 99 99 98 Oximetry 10/19/18 10/19/18 10/19/18 22:30 22:40 22:41 Temperature Pulse Rate 110 H 114 H 113 H Pulse Rate [ From Monitor] Respiratory 31 H 38 H Rate Blood Pressure 137/87 149/94 137/87 Blood Pressure [Right] O2 Sat by Pulse 100 99 Oximetry 10/19/18 10/19/18 10/19/18 22:50 23:00 23:10 Temperature Pulse Rate 112 H 110 H 109 H Pulse Rate [ From Monitor] Respiratory 39 H 35 H 41 H Rate Blood Pressure 149/94 150/95 137/87 Blood Pressure [Right] O2 Sat by Pulse 99 99 100 Oximetry 10/19/18 10/19/18 10/20/18 23:20 23:30 00:00 Temperature Pulse Rate 107 H Pulse Rate [ 109 H From Monitor] Respiratory 37 H 25 H Rate Blood Pressure 137/87 137/87 Blood Pressure [Right] O2 Sat by Pulse 98 98 99 Oximetry 10/20/18 10/20/18 10/20/18 00:17 04:11 08:23 Temperature Pulse Rate 100 H 107 H Pulse Rate [ From Monitor] Respiratory 20 20 24 Rate Blood Pressure 139/95 151/103 160/97 Blood Pressure [Right] O2 Sat by Pulse 100 97 Oximetry 10/20/18 10/20/18 10/20/18 08:26 08:27 09:11 Temperature 99.1 F 99.1 F Pulse Rate 118 H 118 H Pulse Rate [ From Monitor] Respiratory 24 Rate Blood Pressure 160/97 Blood Pressure 160/97 [Right] O2 Sat by Pulse 92 Oximetry 10/20/18 09:12 Temperature Pulse Rate 118 H Pulse Rate [ From Monitor] Respiratory Rate Blood Pressure 160/97 Blood Pressure [Right] O2 Sat by Pulse Oximetry - Lab 10/20/18 16:01 10/21/18 05:05 Most recent lab results Calcium 8.2 mg/dL (8.4-10.2) L 10/20/18 04:13 Phosphorus 5.10 mg/dL (2.5-4.5) H 10/12/18 04:57 Magnesium 3.10 mg/dL (1.7-2.3) H 10/18/18 05:03 Urine Creatinine 30.8 mg/dL (0.1-20.0) H 10/13/18 04:43 Urine Sodium 106 mmol/L 10/13/18 04:43 Urine Total Protein 75 mg/dL (5-11.8) H 10/13/18 04:43 Medications & Allergies - Medications Allergies/Adverse Reactions: Allergies Sulfa (Sulfonamide Antibiotics) Allergy (Verified 10/10/18 16:54) Unknown Home Medications: Home Medications Medication Instructions Recorded Confirmed Last Taken Type Acetaminophen [Tylenol] 1,000 mg PO Q6HR 10/10/18 10/10/18 Unknown History Amlodipine Besylate [Norvasc] 10 mg PO QDAY 10/10/18 10/10/18 Unknown History Aspirin [Adult Aspirin] 81 mg PO DAILY 10/10/18 10/10/18 Unknown History Atorvastatin [Lipitor Tab] 80 mg PO DAILY 10/10/18 10/10/18 Unknown History Losartan [Cozaar] 100 mg PO QDAY 10/10/18 10/10/18 Unknown History Multivitamin [Multiple Vitamins] 1 each PO DAILY 10/10/18 10/10/18 Unknown History hydroCHLOROthiazide [HCTZ] 25 mg PO QDAY 10/10/18 10/10/18 Unknown History Active Medications: Generic Name Dose Route Start Last Admin Trade Name Freq PRN Reason Stop Dose Admin Acetaminophen 500 mg 10/16/18 10:02 10/19/18 12:42 Tylenol PO 500 mg Q6H PRN Administration Fever >101 Albuterol 2.5 mg 10/10/18 18:12 Proventil IH Q3HRT PRN Shortness Of Breath Amlodipine Besylate 10 mg 10/11/18 10:00 10/20/18 09:11 Norvasc PO 10 mg QDAY RUBI Administration Lipase/Protease/Amylase 1 each 10/11/18 12:58 Pancreaze 10,500 Unit FEEDTUBE PRN PRN For Clogged Feeding Tube Atovaquone 750 mg 10/18/18 10:00 10/20/18 09:14 Mepron PO 750 mg BID RUBI Administration Carvedilol 6.25 mg 10/15/18 11:00 10/20/18 09:12 Coreg PO 6.25 mg BID RUBI Administration Haloperidol Lactate 5 mg 10/13/18 19:45 10/17/18 08:08 Haldol IV 5 mg Q6H PRN Administration Agitation Hydralazine HCl 10 mg 10/12/18 15:50 10/18/18 06:36 Apresoline IV 10 mg Q4HR PRN Administration SBP>175 or DBP>115 Hydrophilic Ointment 1 applic 10/10/18 17:53 Vaseline Lip Therapy TP Q2HR PRN Dry Lips Penicillin G Potassium 12 mil. 250 mls @ 20.833 mls/hr 10/12/18 14:00 10/20/18 02:13 units/ Sodium Chloride IV 20.833 mls/hr Q12H RUBI Administration Ganciclovir Sodium 80 mg/ 250 mls @ 100 mls/hr 10/15/18 20:00 10/19/18 22:35 Sodium Chloride IV 100 mls/hr MoWeFr RUBI Administration Sodium Chloride 100 mls @ 999 mls/hr 10/17/18 17:23 Nacl 0.9% IV CHON PRN Hypotension Lansoprazole 30 mg 10/15/18 10:00 10/20/18 09:12 Prevacid Solutab FEEDTUBE 30 mg BID RUBI Administration Lorazepam 1 mg 10/13/18 19:48 10/17/18 21:50 Ativan IV 1 mg Q4H PRN Administration agitation Metoprolol Tartrate 5 mg 10/18/18 14:05 Lopressor IV Q6HR PRN Tachyarrhythmias Multi-Ingred Cream/Lotion/Oil/Oint 1 applic 10/10/18 17:53 Artificial Tears Ophth Oint OU Q4HR PRN Dry Eye(s) Multivitamins 1 each 10/11/18 10:00 10/20/18 09:11 Theragran Tab PO 1 each DAILY RUBI Administration Simple Syrup 15 ml 10/11/18 12:58 Simple Syrup FEEDTUBE PRN PRN Hypoglycemia Simple Syrup 30 ml 10/11/18 12:58 Simple Syrup FEEDTUBE PRN PRN Hypoglycemia Sodium Bicarbonate 325 mg 10/11/18 12:58 Sodium Bicarbonate FEEDTUBE PRN PRN For Clogged Feeding Tube Sodium Chloride 10 ml 10/10/18 22:00 10/20/18 09:13 Sodium Chloride Flush Syringe 10 Ml IV Not Given BID RUBI Sodium Chloride 10 ml 10/10/18 18:12 Sodium Chloride Flush Syringe 10 Ml IV PRN PRN LINE FLUSH
--- NOTE | 2018-10-20 11:38 | Progress Note ---
Assessment and Plan - Patient Problems (1) Acute kidney injury Current Visit: Yes Status: Acute (2) Acute respiratory failure Current Visit: Yes Status: Acute Qualifiers: Respiratory failure complication: hypoxia Qualified Code(s): J96.01 - Acute respiratory failure with hypoxia (3) Anemia Current Visit: Yes Status: Acute Qualifiers: Chronic kidney disease stage: unspecified stage (4) Encephalopathy Current Visit: Yes Status: Acute (5) HIV (human immunodeficiency virus infection) Current Visit: Yes Status: Acute Qualifiers: HIV symptom status: symptomatic Qualified Code(s): B20 - Human immunodeficiency virus [HIV] disease (6) History of CVA (cerebrovascular accident) Current Visit: Yes Status: Acute (7) Hypertensive emergency Current Visit: Yes Status: Acute (8) Sepsis Current Visit: Yes Status: Acute Subjective Principal diagnosis: acute kidney injury Interval history: awake, follow commands. simple verbal responses Objective Vital Signs - 12hr 10/20/18 10/20/18 10/20/18 00:00 00:17 04:11 Temperature Pulse Rate 100 H 107 H Pulse Rate [ 109 H From Monitor] Respiratory 25 H 20 20 Rate Blood Pressure 139/95 151/103 Blood Pressure [Right] O2 Sat by Pulse 99 100 97 Oximetry 10/20/18 10/20/18 10/20/18 08:23 08:26 08:27 Temperature 99.1 F 99.1 F Pulse Rate 118 H Pulse Rate [ From Monitor] Respiratory 24 24 Rate Blood Pressure 160/97 Blood Pressure 160/97 [Right] O2 Sat by Pulse 92 Oximetry 10/20/18 10/20/18 09:11 09:12 Temperature Pulse Rate 118 H 118 H Pulse Rate [ From Monitor] Respiratory Rate Blood Pressure 160/97 160/97 Blood Pressure [Right] O2 Sat by Pulse Oximetry Constitutional: no acute distress, alert Eyes: non-icteric ENT: other (orally intubated, not on sedation, critically ill on vent) Neck: supple, no JVD Effort: mildly labored Ascultation: Bilateral: diminished breath sounds, wheezes, rhonchi Percussion: Bilateral: not dull Cardiovascular: regular rate and rhythm (sinus tach), other (+ S3 gallop at apex) Gastrointestinal: normoactive bowel sounds, other (now with suprapubic catheter) Extremities: no cyanosis, no edema Neurologic: pupils equal and round, CN II-XII normal CBC and BMP: 10/19/18 03:38 10/20/18 04:13 ABG, PT/INR, D-dimer: ABG POC ABG pH 7.552 (7.35-7.45) H 10/15/18 19:22 POC ABG pCO2 34.8 (35-45) L 10/15/18 19:22 POC ABG pO2 195 (80-105) H 10/15/18 19:22 POC ABG HCO3 30.6 10/15/18 19:22 POC ABG Total CO2 32 10/15/18 19:22 POC ABG O2 Sat 100 10/15/18 19:22 PT/INR, D-dimer PT 14.5 Sec. (12.2-14.9) 10/15/18 00:59 INR 1.06 (0.87-1.13) 10/15/18 00:59 Abnormal lab findings: Abnormal Labs 10/10/18 10/10/18 10/10/18 15:02 15:02 15:02 WBC RBC 2.38 L Hgb 8.1 L Hct 24.9 L MCV 105 H MCH 34 H MCHC RDW 21.4 H Plt Count 20 L Seg Neuts % (Manual) 84.0 H Lymphocytes % (Manual) 8.0 L Monocytes % (Manual) Eosinophils % (Manual) Basophils % (Manual) Nucleated RBC % Seg Neutrophils # Man 7.8 H Abs Lymphs (Manual) Lymphocytes # (Manual) 0.7 L Monocytes # (Manual) Eosinophils # (Manual) Basophils # (Manual) PT 16.2 H INR 1.22 H POC ABG pH POC ABG pCO2 POC ABG pO2 Sodium 136 L Potassium Chloride 88.2 L Carbon Dioxide 8 L* BUN 70 H Creatinine 5.6 H Glucose 331 H POC Glucose Lactic Acid Uric Acid Calcium Phosphorus Magnesium TIBC Ferritin Total Bilirubin Direct Bilirubin AST ALT Alkaline Phosphatase Lactate Dehydrogenase Troponin T 0.298 H* NT-Pro-B Natriuret Pep Total Protein Albumin Triglycerides 329 H Cholesterol 234 H LDL Cholesterol Direct 139 H Vitamin B12 Urine Creatinine Urine Total Protein Lymph Enumerat CD4/CD8 Absolute CD3 Count % CD4 Cells Absolute CD4 Count % CD8 Cells Absolute CD19 Count T.pallidum Ab (FTA-ABS) HIV-1 RNA PCR copies/ml HIV-1 RNA (PCR) log Crossmatch 10/10/18 10/10/18 10/10/18 15:05 15:29 15:42 WBC RBC Hgb Hct MCV MCH MCHC RDW Plt Count Seg Neuts % (Manual) Lymphocytes % (Manual) Monocytes % (Manual) Eosinophils % (Manual) Basophils % (Manual) Nucleated RBC % Seg Neutrophils # Man Abs Lymphs (Manual) Lymphocytes # (Manual) Monocytes # (Manual) Eosinophils # (Manual) Basophils # (Manual) PT INR POC ABG pH POC ABG pCO2 POC ABG pO2 Sodium Potassium Chloride Carbon Dioxide BUN Creatinine Glucose POC Glucose 274 H Lactic Acid 17.90 H* Uric Acid Calcium Phosphorus Magnesium TIBC Ferritin Total Bilirubin Direct Bilirubin AST ALT Alkaline Phosphatase Lactate Dehydrogenase Troponin T NT-Pro-B Natriuret Pep Total Protein Albumin Triglycerides Cholesterol LDL Cholesterol Direct Vitamin B12 Urine Creatinine Urine Total Protein Lymph Enumerat CD4/CD8 Absolute CD3 Count % CD4 Cells Absolute CD4 Count % CD8 Cells Absolute CD19 Count T.pallidum Ab (FTA-ABS) HIV-1 RNA PCR copies/ml HIV-1 RNA (PCR) log Crossmatch See Detail 10/10/18 10/10/18 10/10/18 15:42 16:22 16:54 WBC RBC Hgb Hct MCV MCH MCHC RDW Plt Count Seg Neuts % (Manual) Lymphocytes % (Manual) Monocytes % (Manual) Eosinophils % (Manual) Basophils % (Manual) Nucleated RBC % Seg Neutrophils # Man Abs Lymphs (Manual) Lymphocytes # (Manual) Monocytes # (Manual) Eosinophils # (Manual) Basophils # (Manual) PT INR POC ABG pH POC ABG pCO2 9.0 L POC ABG pO2 140 H Sodium Potassium Chloride Carbon Dioxide BUN Creatinine Glucose POC Glucose Lactic Acid Uric Acid Calcium Phosphorus Magnesium TIBC Ferritin Total Bilirubin 1.50 H Direct Bilirubin 0.4 H AST 105 H ALT Alkaline Phosphatase Lactate Dehydrogenase 2342 H Troponin T NT-Pro-B Natriuret Pep 19840 H Total Protein 9.2 H Albumin Triglycerides Cholesterol LDL Cholesterol Direct Vitamin B12 Urine Creatinine Urine Total Protein Lymph Enumerat CD4/CD8 Absolute CD3 Count % CD4 Cells Absolute CD4 Count % CD8 Cells Absolute CD19 Count T.pallidum Ab (FTA-ABS) HIV-1 RNA PCR copies/ml HIV-1 RNA (PCR) log Crossmatch 10/10/18 10/10/18 10/10/18 17:08 18:07 18:24 WBC RBC Hgb Hct MCV MCH MCHC RDW Plt Count Seg Neuts % (Manual) Lymphocytes % (Manual) Monocytes % (Manual) Eosinophils % (Manual) Basophils % (Manual) Nucleated RBC % Seg Neutrophils # Man Abs Lymphs (Manual) Lymphocytes # (Manual) Monocytes # (Manual) Eosinophils # (Manual) Basophils # (Manual) PT INR POC ABG pH 7.172 L POC ABG pCO2 POC ABG pO2 533 H Sodium Potassium Chloride Carbon Dioxide BUN Creatinine Glucose POC Glucose Lactic Acid 14.80 H* Uric Acid Calcium Phosphorus Magnesium TIBC Ferritin Total Bilirubin Direct Bilirubin AST ALT Alkaline Phosphatase Lactate Dehydrogenase Troponin T 0.272 H* NT-Pro-B Natriuret Pep Total Protein Albumin Triglycerides Cholesterol LDL Cholesterol Direct Vitamin B12 Urine Creatinine Urine Total Protein Lymph Enumerat CD4/CD8 Absolute CD3 Count % CD4 Cells Absolute CD4 Count % CD8 Cells Absolute CD19 Count T.pallidum Ab (FTA-ABS) HIV-1 RNA PCR copies/ml HIV-1 RNA (PCR) log Crossmatch 10/10/18 10/10/18 10/10/18 19:58 20:54 20:54 WBC RBC Hgb Hct MCV MCH MCHC RDW Plt Count Seg Neuts % (Manual) Lymphocytes % (Manual) Monocytes % (Manual) Eosinophils % (Manual) Basophils % (Manual) Nucleated RBC % Seg Neutrophils # Man Abs Lymphs (Manual) Lymphocytes # (Manual) Monocytes # (Manual) Eosinophils # (Manual) Basophils # (Manual) PT INR POC ABG pH POC ABG pCO2 POC ABG pO2 Sodium Potassium Chloride Carbon Dioxide BUN Creatinine Glucose POC Glucose Lactic Acid 11.50 H* 2.90 H* 2.90 H* Uric Acid Calcium Phosphorus Magnesium TIBC Ferritin Total Bilirubin Direct Bilirubin AST ALT Alkaline Phosphatase Lactate Dehydrogenase Troponin T NT-Pro-B Natriuret Pep Total Protein Albumin Triglycerides Cholesterol LDL Cholesterol Direct Vitamin B12 Urine Creatinine Urine Total Protein Lymph Enumerat CD4/CD8 Absolute CD3 Count % CD4 Cells Absolute CD4 Count % CD8 Cells Absolute CD19 Count T.pallidum Ab (FTA-ABS) HIV-1 RNA PCR copies/ml HIV-1 RNA (PCR) log Crossmatch 10/10/18 10/10/18 10/11/18 22:43 23:55 02:44 WBC RBC Hgb Hct MCV MCH MCHC RDW Plt Count Seg Neuts % (Manual) Lymphocytes % (Manual) Monocytes % (Manual) Eosinophils % (Manual) Basophils % (Manual) Nucleated RBC % Seg Neutrophils # Man Abs Lymphs (Manual) Lymphocytes # (Manual) Monocytes # (Manual) Eosinophils # (Manual) Basophils # (Manual) PT INR POC ABG pH POC ABG pCO2 25.9 L POC ABG pO2 192 H Sodium Potassium Chloride Carbon Dioxide BUN Creatinine Glucose POC Glucose Lactic Acid 4.60 H* 5.40 H* Uric Acid Calcium Phosphorus Magnesium TIBC Ferritin Total Bilirubin Direct Bilirubin AST ALT Alkaline Phosphatase Lactate Dehydrogenase Troponin T NT-Pro-B Natriuret Pep Total Protein Albumin Triglycerides Cholesterol LDL Cholesterol Direct Vitamin B12 Urine Creatinine Urine Total Protein Lymph Enumerat CD4/CD8 Absolute CD3 Count % CD4 Cells Absolute CD4 Count % CD8 Cells Absolute CD19 Count T.pallidum Ab (FTA-ABS) HIV-1 RNA PCR copies/ml HIV-1 RNA (PCR) log Crossmatch 10/11/18 10/11/18 10/11/18 02:55 02:55 03:34 WBC RBC 2.35 L Hgb 7.7 L Hct 22.9 L MCV 98 H MCH 33 H MCHC RDW 19.9 H Plt Count 23 L Seg Neuts % (Manual) 75.0 H Lymphocytes % (Manual) 11.0 L Monocytes % (Manual) Eosinophils % (Manual) Basophils % (Manual) Nucleated RBC % Seg Neutrophils # Man Abs Lymphs (Manual) Lymphocytes # (Manual) 1.0 L Monocytes # (Manual) Eosinophils # (Manual) Basophils # (Manual) PT INR POC ABG pH POC ABG pCO2 POC ABG pO2 Sodium Potassium 5.3 H D Chloride Carbon Dioxide 14 L BUN 74 H Creatinine 5.4 H Glucose 126 H POC Glucose Lactic Acid 5.30 H* Uric Acid Calcium 7.8 L D Phosphorus Magnesium TIBC Ferritin Total Bilirubin 1.90 H Direct Bilirubin AST 306 H ALT 89 H Alkaline Phosphatase 246 H Lactate Dehydrogenase Troponin T NT-Pro-B Natriuret Pep Total Protein Albumin 3.4 L Triglycerides Cholesterol LDL Cholesterol Direct Vitamin B12 Urine Creatinine Urine Total Protein Lymph Enumerat CD4/CD8 Absolute CD3 Count % CD4 Cells Absolute CD4 Count % CD8 Cells Absolute CD19 Count T.pallidum Ab (FTA-ABS) HIV-1 RNA PCR copies/ml HIV-1 RNA (PCR) log Crossmatch 10/11/18 10/11/18 10/11/18 03:34 05:47 05:48 WBC RBC Hgb Hct MCV MCH MCHC RDW Plt Count Seg Neuts % (Manual) Lymphocytes % (Manual) Monocytes % (Manual) Eosinophils % (Manual) Basophils % (Manual) Nucleated RBC % Seg Neutrophils # Man Abs Lymphs (Manual) Lymphocytes # (Manual) Monocytes # (Manual) Eosinophils # (Manual) Basophils # (Manual) PT INR POC ABG pH 7.491 H POC ABG pCO2 24.9 L POC ABG pO2 166 H Sodium Potassium 5.2 H Chloride Carbon Dioxide 16 L BUN 80 H Creatinine 5.5 H Glucose 63 L POC Glucose Lactic Acid 3.80 H* Uric Acid Calcium 7.9 L Phosphorus Magnesium TIBC Ferritin Total Bilirubin Direct Bilirubin AST ALT Alkaline Phosphatase Lactate Dehydrogenase Troponin T NT-Pro-B Natriuret Pep Total Protein Albumin Triglycerides Cholesterol LDL Cholesterol Direct Vitamin B12 Urine Creatinine Urine Total Protein Lymph Enumerat CD4/CD8 Absolute CD3 Count % CD4 Cells Absolute CD4 Count % CD8 Cells Absolute CD19 Count T.pallidum Ab (FTA-ABS) HIV-1 RNA PCR copies/ml HIV-1 RNA (PCR) log Crossmatch 10/11/18 10/11/18 10/11/18 09:56 17:34 17:34 WBC RBC Hgb Hct MCV MCH MCHC RDW Plt Count Seg Neuts % (Manual) Lymphocytes % (Manual) Monocytes % (Manual) Eosinophils % (Manual) Basophils % (Manual) Nucleated RBC % Seg Neutrophils # Man Abs Lymphs (Manual) Lymphocytes # (Manual) Monocytes # (Manual) Eosinophils # (Manual) Basophils # (Manual) PT INR POC ABG pH POC ABG pCO2 POC ABG pO2 Sodium Potassium 3.4 L D Chloride Carbon Dioxide 17 L BUN 97 H Creatinine 7.3 H Glucose 135 H POC Glucose Lactic Acid 2.60 H* 2.30 H* Uric Acid Calcium 7.9 L Phosphorus 5.80 H Magnesium 2.70 H TIBC Ferritin Total Bilirubin Direct Bilirubin AST ALT Alkaline Phosphatase Lactate Dehydrogenase Troponin T NT-Pro-B Natriuret Pep Total Protein Albumin Triglycerides Cholesterol LDL Cholesterol Direct Vitamin B12 Urine Creatinine Urine Total Protein Lymph Enumerat CD4/CD8 Absolute CD3 Count % CD4 Cells Absolute CD4 Count % CD8 Cells Absolute CD19 Count T.pallidum Ab (FTA-ABS) HIV-1 RNA PCR copies/ml HIV-1 RNA (PCR) log Crossmatch 10/11/18 10/11/18 10/11/18 17:35 17:36 17:36 WBC RBC Hgb Hct MCV MCH MCHC RDW Plt Count Seg Neuts % (Manual) Lymphocytes % (Manual) Monocytes % (Manual) Eosinophils % (Manual) Basophils % (Manual) Nucleated RBC % Seg Neutrophils # Man Abs Lymphs (Manual) 267 L Lymphocytes # (Manual) Monocytes # (Manual) Eosinophils # (Manual) Basophils # (Manual) PT INR POC ABG pH POC ABG pCO2 POC ABG pO2 Sodium Potassium Chloride Carbon Dioxide BUN Creatinine Glucose POC Glucose Lactic Acid Uric Acid 13.4 H Calcium Phosphorus Magnesium TIBC 236 L Ferritin 98513.0 H Total Bilirubin Direct Bilirubin AST ALT Alkaline Phosphatase Lactate Dehydrogenase Troponin T NT-Pro-B Natriuret Pep Total Protein Albumin Triglycerides Cholesterol LDL Cholesterol Direct Vitamin B12 Urine Creatinine Urine Total Protein Lymph Enumerat CD4/CD8 0.01 L Absolute CD3 Count 226 L % CD4 Cells 1 L Absolute CD4 Count 3 L % CD8 Cells 82 H Absolute CD19 Count 16 L T.pallidum Ab (FTA-ABS) HIV-1 RNA PCR copies/ml HIV-1 RNA (PCR) log Crossmatch 10/11/18 10/11/18 10/11/18 17:36 19:21 20:08 WBC RBC Hgb Hct MCV MCH MCHC RDW Plt Count Seg Neuts % (Manual) Lymphocytes % (Manual) Monocytes % (Manual) Eosinophils % (Manual) Basophils % (Manual) Nucleated RBC % Seg Neutrophils # Man Abs Lymphs (Manual) Lymphocytes # (Manual) Monocytes # (Manual) Eosinophils # (Manual) Basophils # (Manual) PT INR POC ABG pH POC ABG pCO2 POC ABG pO2 Sodium Potassium Chloride Carbon Dioxide 16 L BUN 99 H Creatinine 8.1 H Glucose 147 H POC Glucose Lactic Acid 2.60 H* Uric Acid Calcium 7.7 L Phosphorus Magnesium 2.60 H TIBC Ferritin Total Bilirubin Direct Bilirubin AST ALT Alkaline Phosphatase Lactate Dehydrogenase Troponin T NT-Pro-B Natriuret Pep Total Protein Albumin Triglycerides Cholesterol LDL Cholesterol Direct Vitamin B12 Urine Creatinine Urine Total Protein Lymph Enumerat CD4/CD8 Absolute CD3 Count % CD4 Cells Absolute CD4 Count % CD8 Cells Absolute CD19 Count T.pallidum Ab (FTA-ABS) HIV-1 RNA PCR copies/ml 407083 H HIV-1 RNA (PCR) log 5.51 H Crossmatch 10/11/18 10/11/18 10/12/18 21:32 23:01 04:29 WBC RBC Hgb Hct MCV MCH MCHC RDW Plt Count Seg Neuts % (Manual) Lymphocytes % (Manual) Monocytes % (Manual) Eosinophils % (Manual) Basophils % (Manual) Nucleated RBC % Seg Neutrophils # Man Abs Lymphs (Manual) Lymphocytes # (Manual) Monocytes # (Manual) Eosinophils # (Manual) Basophils # (Manual) PT INR POC ABG pH 7.493 H POC ABG pCO2 23.1 L POC ABG pO2 176 H Sodium Potassium Chloride Carbon Dioxide BUN Creatinine Glucose POC Glucose Lactic Acid 2.60 H* 3.20 H* Uric Acid Calcium Phosphorus Magnesium TIBC Ferritin Total Bilirubin Direct Bilirubin AST ALT Alkaline Phosphatase Lactate Dehydrogenase Troponin T NT-Pro-B Natriuret Pep Total Protein Albumin Triglycerides Cholesterol LDL Cholesterol Direct Vitamin B12 Urine Creatinine Urine Total Protein Lymph Enumerat CD4/CD8 Absolute CD3 Count % CD4 Cells Absolute CD4 Count % CD8 Cells Absolute CD19 Count T.pallidum Ab (FTA-ABS) HIV-1 RNA PCR copies/ml HIV-1 RNA (PCR) log Crossmatch 10/12/18 10/12/18 10/12/18 04:57 04:57 04:57 WBC 15.0 H RBC 1.75 L Hgb 5.6 L* Hct 16.7 L* D MCV 95 H MCH MCHC RDW 20.7 H Plt Count 49 L D Seg Neuts % (Manual) 90.0 H Lymphocytes % (Manual) 4.0 L Monocytes % (Manual) Eosinophils % (Manual) Basophils % (Manual) Nucleated RBC % 12.0 H Seg Neutrophils # Man 12.3 H Abs Lymphs (Manual) Lymphocytes # (Manual) 0.5 L Monocytes # (Manual) Eosinophils # (Manual) Basophils # (Manual) PT 18.0 H INR 1.39 H POC ABG pH POC ABG pCO2 POC ABG pO2 Sodium Potassium 3.0 L D Chloride Carbon Dioxide 15 L BUN 102 H Creatinine 8.8 H Glucose 110 H POC Glucose Lactic Acid Uric Acid Calcium 7.6 L Phosphorus 5.10 H Magnesium 2.50 H TIBC Ferritin Total Bilirubin Direct Bilirubin AST 667 H ALT 298 H Alkaline Phosphatase 154 H Lactate Dehydrogenase Troponin T NT-Pro-B Natriuret Pep Total Protein Albumin 2.8 L Triglycerides Cholesterol LDL Cholesterol Direct Vitamin B12 Urine Creatinine Urine Total Protein Lymph Enumerat CD4/CD8 Absolute CD3 Count % CD4 Cells Absolute CD4 Count % CD8 Cells Absolute CD19 Count T.pallidum Ab (FTA-ABS) HIV-1 RNA PCR copies/ml HIV-1 RNA (PCR) log Crossmatch 10/12/18 10/12/18 10/12/18 06:43 14:05 Unknown WBC 14.0 H RBC 2.76 L Hgb 5.8 L* 8.7 L Hct 17.2 L* 25.1 L D MCV MCH MCHC 35 H RDW 19.0 H Plt Count 53 L Seg Neuts % (Manual) Lymphocytes % (Manual) 5.0 L Monocytes % (Manual) Eosinophils % (Manual) Basophils % (Manual) Nucleated RBC % 40.0 H Seg Neutrophils # Man 9.0 H Abs Lymphs (Manual) Lymphocytes # (Manual) 0.7 L Monocytes # (Manual) Eosinophils # (Manual) Basophils # (Manual) PT INR POC ABG pH POC ABG pCO2 POC ABG pO2 Sodium Potassium Chloride Carbon Dioxide BUN Creatinine Glucose POC Glucose Lactic Acid Uric Acid Calcium Phosphorus Magnesium TIBC Ferritin Total Bilirubin Direct Bilirubin AST ALT Alkaline Phosphatase Lactate Dehydrogenase Troponin T NT-Pro-B Natriuret Pep Total Protein Albumin Triglycerides Cholesterol LDL Cholesterol Direct Vitamin B12 Urine Creatinine Urine Total Protein Lymph Enumerat CD4/CD8 Absolute CD3 Count % CD4 Cells Absolute CD4 Count % CD8 Cells Absolute CD19 Count T.pallidum Ab (FTA-ABS) Reactive H HIV-1 RNA PCR copies/ml HIV-1 RNA (PCR) log Crossmatch 10/13/18 10/13/18 10/13/18 03:40 03:40 03:40 WBC 11.5 H RBC 2.58 L Hgb 8.2 L Hct 22.9 L MCV MCH MCHC 36 H RDW 19.5 H Plt Count 123 L D Seg Neuts % (Manual) 93.0 H Lymphocytes % (Manual) 0 L Monocytes % (Manual) Eosinophils % (Manual) Basophils % (Manual) Nucleated RBC % 44.0 H Seg Neutrophils # Man 10.7 H Abs Lymphs (Manual) Lymphocytes # (Manual) 0.0 L Monocytes # (Manual) Eosinophils # (Manual) Basophils # (Manual) PT 15.6 H INR 1.17 H POC ABG pH POC ABG pCO2 POC ABG pO2 Sodium Potassium 3.3 L Chloride Carbon Dioxide 21 L BUN 51 H Creatinine 5.7 H Glucose 140 H POC Glucose Lactic Acid Uric Acid Calcium 7.9 L Phosphorus Magnesium TIBC Ferritin Total Bilirubin Direct Bilirubin AST 367 H ALT 238 H Alkaline Phosphatase 134 H Lactate Dehydrogenase Troponin T NT-Pro-B Natriuret Pep Total Protein 6.2 L Albumin 2.5 L Triglycerides Cholesterol LDL Cholesterol Direct Vitamin B12 Urine Creatinine Urine Total Protein Lymph Enumerat CD4/CD8 Absolute CD3 Count % CD4 Cells Absolute CD4 Count % CD8 Cells Absolute CD19 Count T.pallidum Ab (FTA-ABS) HIV-1 RNA PCR copies/ml HIV-1 RNA (PCR) log Crossmatch 10/13/18 10/13/18 10/14/18 04:10 04:43 04:34 WBC RBC 2.47 L Hgb 7.7 L Hct 21.9 L MCV MCH MCHC 35 H RDW 21.2 H Plt Count 40 L Seg Neuts % (Manual) Lymphocytes % (Manual) Monocytes % (Manual) Eosinophils % (Manual) Basophils % (Manual) Nucleated RBC % Seg Neutrophils # Man Abs Lymphs (Manual) Lymphocytes # (Manual) Monocytes # (Manual) Eosinophils # (Manual) Basophils # (Manual) PT INR POC ABG pH 7.522 H POC ABG pCO2 29.1 L POC ABG pO2 132 H Sodium Potassium Chloride Carbon Dioxide BUN Creatinine Glucose POC Glucose Lactic Acid Uric Acid Calcium Phosphorus Magnesium TIBC Ferritin Total Bilirubin Direct Bilirubin AST ALT Alkaline Phosphatase Lactate Dehydrogenase Troponin T NT-Pro-B Natriuret Pep Total Protein Albumin Triglycerides Cholesterol LDL Cholesterol Direct Vitamin B12 Urine Creatinine 30.8 H Urine Total Protein 75 H Lymph Enumerat CD4/CD8 Absolute CD3 Count % CD4 Cells Absolute CD4 Count % CD8 Cells Absolute CD19 Count T.pallidum Ab (FTA-ABS) HIV-1 RNA PCR copies/ml HIV-1 RNA (PCR) log Crossmatch 10/14/18 10/14/18 10/15/18 04:34 08:51 03:14 WBC RBC 2.36 L Hgb 7.5 L Hct 21.1 L MCV MCH MCHC 36 H RDW 21.9 H Plt Count 31 L Seg Neuts % (Manual) Lymphocytes % (Manual) 8.0 L Monocytes % (Manual) 9.0 H Eosinophils % (Manual) Basophils % (Manual) 2.0 H Nucleated RBC % 129.0 H Seg Neutrophils # Man Abs Lymphs (Manual) Lymphocytes # (Manual) 0.7 L Monocytes # (Manual) Eosinophils # (Manual) Basophils # (Manual) 0.2 H PT INR POC ABG pH POC ABG pCO2 POC ABG pO2 Sodium Potassium Chloride Carbon Dioxide BUN 35 H Creatinine 5.2 H Glucose 144 H POC Glucose Lactic Acid Uric Acid Calcium Phosphorus Magnesium TIBC Ferritin Total Bilirubin Direct Bilirubin AST ALT Alkaline Phosphatase Lactate Dehydrogenase Troponin T NT-Pro-B Natriuret Pep Total Protein Albumin Triglycerides Cholesterol LDL Cholesterol Direct Vitamin B12 912.3 H Urine Creatinine Urine Total Protein Lymph Enumerat CD4/CD8 Absolute CD3 Count % CD4 Cells Absolute CD4 Count % CD8 Cells Absolute CD19 Count T.pallidum Ab (FTA-ABS) HIV-1 RNA PCR copies/ml HIV-1 RNA (PCR) log Crossmatch 10/15/18 10/15/18 10/16/18 03:14 19:22 04:07 WBC RBC 2.08 L Hgb 6.5 L Hct 18.4 L* MCV MCH MCHC 35 H RDW 22.9 H Plt Count 68 L D Seg Neuts % (Manual) Lymphocytes % (Manual) Monocytes % (Manual) Eosinophils % (Manual) Basophils % (Manual) Nucleated RBC % Seg Neutrophils # Man Abs Lymphs (Manual) Lymphocytes # (Manual) Monocytes # (Manual) Eosinophils # (Manual) Basophils # (Manual) PT INR POC ABG pH 7.552 H POC ABG pCO2 34.8 L POC ABG pO2 195 H Sodium 147 H Potassium Chloride Carbon Dioxide BUN 59 H Creatinine 8.0 H D Glucose 153 H POC Glucose Lactic Acid Uric Acid Calcium 8.3 L Phosphorus Magnesium TIBC Ferritin Total Bilirubin Direct Bilirubin AST 179 H ALT 156 H Alkaline Phosphatase 130 H Lactate Dehydrogenase Troponin T NT-Pro-B Natriuret Pep Total Protein Albumin 2.7 L Triglycerides Cholesterol LDL Cholesterol Direct Vitamin B12 Urine Creatinine Urine Total Protein Lymph Enumerat CD4/CD8 Absolute CD3 Count % CD4 Cells Absolute CD4 Count % CD8 Cells Absolute CD19 Count T.pallidum Ab (FTA-ABS) HIV-1 RNA PCR copies/ml HIV-1 RNA (PCR) log Crossmatch 10/16/18 10/16/18 10/16/18 04:07 04:07 08:31 WBC RBC Hgb Hct MCV MCH MCHC RDW Plt Count Seg Neuts % (Manual) Lymphocytes % (Manual) Monocytes % (Manual) Eosinophils % (Manual) Basophils % (Manual) Nucleated RBC % Seg Neutrophils # Man Abs Lymphs (Manual) Lymphocytes # (Manual) Monocytes # (Manual) Eosinophils # (Manual) Basophils # (Manual) PT INR POC ABG pH POC ABG pCO2 POC ABG pO2 Sodium Potassium Chloride Carbon Dioxide BUN 50 H Creatinine 6.2 H Glucose 142 H POC Glucose Lactic Acid Uric Acid Calcium Phosphorus Magnesium TIBC Ferritin Total Bilirubin Direct Bilirubin AST 136 H 134 H ALT 106 H 107 H Alkaline Phosphatase Lactate Dehydrogenase Troponin T NT-Pro-B Natriuret Pep Total Protein Albumin 2.7 L 2.8 L Triglycerides Cholesterol LDL Cholesterol Direct Vitamin B12 Urine Creatinine Urine Total Protein Lymph Enumerat CD4/CD8 Absolute CD3 Count % CD4 Cells Absolute CD4 Count % CD8 Cells Absolute CD19 Count T.pallidum Ab (FTA-ABS) HIV-1 RNA PCR copies/ml HIV-1 RNA (PCR) log Crossmatch See Detail 10/16/18 10/17/18 10/17/18 11:24 04:20 07:53 WBC RBC 2.86 L Hgb 8.5 L Hct 25.1 L D MCV MCH MCHC RDW 19.0 H Plt Count 63 L Seg Neuts % (Manual) Lymphocytes % (Manual) 3.0 L Monocytes % (Manual) 14.0 H Eosinophils % (Manual) Basophils % (Manual) Nucleated RBC % 45.0 H Seg Neutrophils # Man 9.8 H Abs Lymphs (Manual) Lymphocytes # (Manual) 0.4 L Monocytes # (Manual) 2.0 H Eosinophils # (Manual) Basophils # (Manual) PT INR POC ABG pH POC ABG pCO2 POC ABG pO2 Sodium 146 H Potassium Chloride Carbon Dioxide 19 L BUN 82 H Creatinine 9.1 H Glucose 117 H POC Glucose 144 H Lactic Acid Uric Acid Calcium Phosphorus Magnesium TIBC Ferritin Total Bilirubin Direct Bilirubin AST 127 H ALT 84 H Alkaline Phosphatase Lactate Dehydrogenase Troponin T NT-Pro-B Natriuret Pep Total Protein Albumin 3.0 L Triglycerides Cholesterol LDL Cholesterol Direct Vitamin B12 Urine Creatinine Urine Total Protein Lymph Enumerat CD4/CD8 Absolute CD3 Count % CD4 Cells Absolute CD4 Count % CD8 Cells Absolute CD19 Count T.pallidum Ab (FTA-ABS) HIV-1 RNA PCR copies/ml HIV-1 RNA (PCR) log Crossmatch 10/17/18 10/18/18 10/18/18 07:53 05:03 05:03 WBC RBC Hgb Hct MCV MCH MCHC RDW Plt Count Seg Neuts % (Manual) Lymphocytes % (Manual) Monocytes % (Manual) Eosinophils % (Manual) Basophils % (Manual) Nucleated RBC % Seg Neutrophils # Man Abs Lymphs (Manual) Lymphocytes # (Manual) Monocytes # (Manual) Eosinophils # (Manual) Basophils # (Manual) PT INR POC ABG pH POC ABG pCO2 POC ABG pO2 Sodium 147 H Potassium 5.1 H Chloride Carbon Dioxide 19 L 19 L BUN 89 H 115 H Creatinine 9.5 H 12.0 H Glucose 122 H 210 H POC Glucose Lactic Acid Uric Acid Calcium Phosphorus Magnesium 3.10 H TIBC Ferritin Total Bilirubin Direct Bilirubin AST ALT Alkaline Phosphatase Lactate Dehydrogenase Troponin T NT-Pro-B Natriuret Pep Total Protein Albumin Triglycerides Cholesterol LDL Cholesterol Direct Vitamin B12 Urine Creatinine Urine Total Protein Lymph Enumerat CD4/CD8 Absolute CD3 Count % CD4 Cells Absolute CD4 Count % CD8 Cells Absolute CD19 Count T.pallidum Ab (FTA-ABS) HIV-1 RNA PCR copies/ml HIV-1 RNA (PCR) log Crossmatch 10/18/18 10/19/18 10/19/18 21:12 03:38 03:38 WBC RBC 2.45 L Hgb 7.5 L Hct 21.9 L MCV MCH MCHC RDW 21.3 H Plt Count 60 L Seg Neuts % (Manual) 81.0 H Lymphocytes % (Manual) 8.0 L Monocytes % (Manual) Eosinophils % (Manual) 6.0 H Basophils % (Manual) Nucleated RBC % 104.0 H Seg Neutrophils # Man Abs Lymphs (Manual) Lymphocytes # (Manual) 0.7 L Monocytes # (Manual) Eosinophils # (Manual) 0.5 H Basophils # (Manual) PT INR POC ABG pH POC ABG pCO2 POC ABG pO2 Sodium Potassium Chloride Carbon Dioxide BUN 74 H Creatinine 8.7 H Glucose 134 H POC Glucose 120 H Lactic Acid Uric Acid Calcium 8.1 L Phosphorus Magnesium TIBC Ferritin Total Bilirubin Direct Bilirubin AST ALT Alkaline Phosphatase Lactate Dehydrogenase Troponin T NT-Pro-B Natriuret Pep Total Protein Albumin Triglycerides Cholesterol LDL Cholesterol Direct Vitamin B12 Urine Creatinine Urine Total Protein Lymph Enumerat CD4/CD8 Absolute CD3 Count % CD4 Cells Absolute CD4 Count % CD8 Cells Absolute CD19 Count T.pallidum Ab (FTA-ABS) HIV-1 RNA PCR copies/ml HIV-1 RNA (PCR) log Crossmatch 10/20/18 04:13 WBC RBC Hgb Hct MCV MCH MCHC RDW Plt Count Seg Neuts % (Manual) Lymphocytes % (Manual) Monocytes % (Manual) Eosinophils % (Manual) Basophils % (Manual) Nucleated RBC % Seg Neutrophils # Man Abs Lymphs (Manual) Lymphocytes # (Manual) Monocytes # (Manual) Eosinophils # (Manual) Basophils # (Manual) PT INR POC ABG pH POC ABG pCO2 POC ABG pO2 Sodium Potassium 5.8 H D Chloride 96.0 L Carbon Dioxide 19 L BUN 97 H Creatinine 10.4 H Glucose 134 H POC Glucose Lactic Acid Uric Acid Calcium 8.2 L Phosphorus Magnesium TIBC Ferritin Total Bilirubin Direct Bilirubin AST ALT Alkaline Phosphatase Lactate Dehydrogenase Troponin T NT-Pro-B Natriuret Pep Total Protein Albumin Triglycerides Cholesterol LDL Cholesterol Direct Vitamin B12 Urine Creatinine Urine Total Protein Lymph Enumerat CD4/CD8 Absolute CD3 Count % CD4 Cells Absolute CD4 Count % CD8 Cells Absolute CD19 Count T.pallidum Ab (FTA-ABS) HIV-1 RNA PCR copies/ml HIV-1 RNA (PCR) log Crossmatch Chest x-ray: image reviewed (increase rt sided infiltrate)
--- NOTE | 2018-10-20 11:42 | XRay Report ---
EXAM: XR CHEST 1V AP HISTORY: sob TECHNIQUE: AP chest x-ray dated 10/20/2018 at 10:35 AM. COMPARISON: Chest x-ray dated 10/16/2018 FINDINGS: A nasogastric tube is noted in situ at the distal tip (coursing cephalad) within the gastric fundus a nd a 90 degree kink at the proximal sidehole (within the lateral aspect of the middle body of the sto mach). There is evidence for cardiomegaly. The pulmonary vascularity and interstitial markings are diffusely prominent, consistent with CHF or volume overload in the appropriate clinical setting; differential diagnosis includes (but is not limited to) bronchitis and bronchopneumonia in the appropriate clinica l setting. There is asymmetrical prominence of parenchymal infiltrate in the right lower lung field which may re present asymmetrical pulmonary edema and/or acute pneumonia in the appropriate clinical setting. Ther e is no pleural effusion, or pneumothorax seen. The visualized bony structures are within normal limi ts. IMPRESSION: 1. Findings consistent with mild CHF or volume overload in the appropriate clinical setting; DDX in cludes bronchitis and bronchopneumonia in the appropriate clinical setting. 2. Asymmetrical prominence of parenchymal infiltrate in the right lower lung field which may represe nt asymmetrical pulmonary edema and/or acute pneumonia in the appropriate clinical setting. 3. Recommend clinical correlation and appropriate followup evaluation as clinically warranted to ens ure complete clearance. 4. A nasogastric tube is noted in situ at the distal tip (coursing cephalad) within the gastric fund us and a 90 degree kink at the proximal sidehole (within the lateral aspect of the middle body of the stomach). This document is electronically signed by Philly Boucher MD., October 20 2018 11:40:14 AM ET
[2018-10-20] MEDS ORDERED: ALBURX 25% (ALBUMIN) IV ONE (12:48)
--- NOTE | 2018-10-20 13:39 | Progress Note ---
Assessment and Plan / Acute encephalopathy, appears more lethargic today Neurology following, likely from possible vaculitis vs neurosyphilis Acute CVA?? continue to treat underlying possible cause transfer back to [facility] /Acute resp failure s/p intubated in ED Intubated for airway protection, patient was very lethargic and confused on admission Pulm following, self extubated 10/16/18 Continue nebs frequent suctioning and supplemental O2 as needed CXR shows new infiltrates today, will get ABG, transfer him back to [facility] /HIV/AIDS No previous records available ID Physician following VL 320,000 / CD4=3 on 10/11/2018 /Acute CVA with Bilateral infarcts with edema Consulted Neurology, he was evaluated by DR. Valentine. Could be due to possible vasculitis - further workup pending She does not recommend anti-platelets /SHRUTHI due to ATN patient started on hemodialysis Baseline unknown /Urinary retention Unable to place Ricketts catheter Consulted and called Dr. Paula, urology and he came and placed suprapubic catheter patient now on HD /Severe Sepsis with syphilis and HIV - s/p LP, but initial work up doesv not corelate with meningitis Per ID: - f/u CSF culture, VDRL, CMV-PCR, T.gondii PCR, cryptococcal antigen - continue ganciclovir to cover empirically VZV/CMV D6 - continue on penicillin G continues infusion to cover empirically neurosyphilis D5 until CSF VDRL is back - cont meprom 1,500 MG PO qday for PJP prophylaxis, toxo IgG negative - f/u CMV DNA PCR and AFB-blood culture - all pending - negative repeat blood culture /Thrombocytopenia, Likely from severe sepsis s/p 2 Units platelets transfused, continue to monitor /Anemia, multifactorial s/p total 4 Units PRBC, stool positive for occult blood Seen by GI, conservative management /Hyperkalemia, resolved /Elevated LFT, from possible underlying sepsis and HIV - Continue to trend /Hyperlipidemia, low fat TF diet /Hypertensive urgency. Started on cardene drip, wean off as tolerated /Elevated Troponin Likely due to kidney disease, 2-D echo 45-50% Prognosis guarded Full code status. transfer to tele today brief History patient is 43 YO Male with HIV, hypertension, previous stroke, Nicotine Dependence, presents to ED for evaluation. Patient was confused and lethargic and unable to provide history. He was seen and evaluated in ED and found to be in distress and unable to protect his airway and was therefore intubated, placed on ventilator and admitted to ICU. Patient diagnosed with acute resp failure, renal failure(acute vs acute on chronic) , Encephalopathy, Acidosis. He continues to have fevers, followed by ID Physician for HIV/AIDS. renal failure worsened therefore started on hemodialysis. s/p LP on 10/16, workup sofar negative for meningitis. He is positive for RPR - getting treated for syphilis Hospitalist Physical GEN: lethargic HEENT: Normocephalic, atraumatic, Neck: supple, No JVD Lungs:+ rhonchi, no wheeze, tachypnic Heart:S1 and S2 regular, no murmurs, rubs or gallop, Abd:soft, non tender, non distended, normal bowel sounds Ext: No edema, no clubbing or cyanosis Neuro: Follow simple commands, moves all extremity Skin: No rash Musculoskeletal: No joint swelling or tenderness Subjective Date of service: 10/20/18 Principal diagnosis: low plt Interval history: Patient seen and examined Self extubated himself 10/16 getting HD at bedside mental status worse today with tachypnea Objective - Constitutional Vitals: Vital Signs - 12hr 10/20/18 10/20/18 10/20/18 04:11 08:23 08:26 Temperature 99.1 F Pulse Rate 107 H Respiratory 20 24 Rate Blood Pressure 151/103 160/97 Blood Pressure [Right] O2 Sat by Pulse 97 Oximetry 10/20/18 10/20/18 10/20/18 08:27 09:11 09:12 Temperature 99.1 F Pulse Rate 118 H 118 H 118 H Respiratory 24 Rate Blood Pressure 160/97 160/97 Blood Pressure 160/97 [Right] O2 Sat by Pulse 92 Oximetry 10/20/18 10/20/18 10/20/18 10:45 11:00 11:15 Temperature 98.3 F Pulse Rate 113 H 113 H 113 H Respiratory 20 Rate Blood Pressure 150/92 150/92 149/84 Blood Pressure [Right] O2 Sat by Pulse Oximetry 10/20/18 10/20/18 10/20/18 11:30 11:45 12:00 Temperature Pulse Rate 120 H 116 H 125 H Respiratory Rate Blood Pressure 162/83 124/65 125/67 Blood Pressure [Right] O2 Sat by Pulse Oximetry 10/20/18 10/20/18 10/20/18 12:15 12:30 12:45 Temperature Pulse Rate 131 H 127 H 125 H Respiratory Rate Blood Pressure 134/72 148/78 126/71 Blood Pressure [Right] O2 Sat by Pulse Oximetry 10/20/18 10/20/18 10/20/18 13:00 13:15 13:30 Temperature Pulse Rate 129 H 128 H 129 H Respiratory Rate Blood Pressure 131/71 120/65 141/82 Blood Pressure [Right] O2 Sat by Pulse Oximetry - Labs CBC & Chem 7: 10/20/18 16:01 10/21/18 05:05 Labs: Abnormal lab results 10/20/18 10/20/18 Range/Units 04:13 13:07 Potassium 5.8 H D (3.6-5.0) mmol/L Chloride 96.0 L (98-107) mmol/L Carbon Dioxide 19 L (22-30) mmol/L BUN 97 H (9-20) mg/dL Creatinine 10.4 H (0.8-1.5) mg/dL Glucose 134 H (75-100) mg/dL POC Glucose 139 H (70-105) Calcium 8.2 L (8.4-10.2) mg/dL
[2018-10-20 16:15] LABS: Hematocrit 23.7 % (35.5-45.6); Hemoglobin 7.9 gm/dl (11.8-15.2); Mean Corpuscular HGB Conc 33 % (32-34); Mean Corpuscular Volume 92 fl (84-94); Red Blood Count 2.59 M/mm3 (3.65-5.03)
[2018-10-20 16:27] LABS: Calcium 8.6 mg/dL (8.4-10.2)
[2018-10-20 16:29] LABS: Platelet Count 125 K/mm3 (140-440); Red Cell Distribution Width 21.7 % (13.2-15.2)
[2018-10-20] MEDS: DUONEB *Not for PRN Use IH SCH ×2 (18:16→20:09)
[2018-10-20] MEDS: BROVANA NEBU IH SCH ×2 (18:16→20:09)
[2018-10-20] MEDS: HALDOL IV PRN (21:08)
[2018-10-20] MEDS: TYLENOL PO PRN (21:11)
--- NOTE | 2018-10-20 22:37 | Progress Note ---
Assessment and Plan HIV Systemic Hypertension History of CVA 6 months ago at [place] Nicotine dependence Malnutrition Sepsis - resolving s/p acute hypoxemic respiratory failure s/p acute encephalopathy - improving Anemia Thrombocytopenia Acute on chronic renal failure Type II DM BRIANNE 10/2018: No cardioembolic source, LVEF 45-50% Recommendations: No further inpatient cardiac work-up is needed for 4-5 beats NSVT in a 43 year old male who is septic with severe metabolic disturbances and preserved LVEF Continue coreg and maximize as blood pressure and heart rate tolerate No further runs of NSVT seen on telemetry maintain K > 4 and magnesium > 2 No further cardiac recommendations at this time. Thank you for the consult. Please re-consult as needed. Subjective Date of service: 10/21/18 Principal diagnosis: low plt Interval history: No acute events. Resting comfortably. No chest pain or SOB. Objective Vital Signs Temp Pulse Pulse Pulse Resp Resp BP 10/20/18 21:08 119 H 132/80 10/20/18 20:43 115 H 23 10/20/18 20:22 10/20/18 20:15 115 H 23 10/20/18 20:00 101.1 F H 122 H 117 H 26 H 145/93 10/20/18 19:00 120 H 32 H 137/88 10/20/18 18:00 116 H 25 H 129/78 10/20/18 17:30 112 H 30 H 10/20/18 17:18 125 H 26 H 10/20/18 15:18 98.6 F 129 H 20 144/88 10/20/18 15:01 127 H 135/77 10/20/18 14:45 88 123/47 10/20/18 14:30 130 H 130/76 10/20/18 14:15 97 H 196/104 10/20/18 14:00 112 H 168/56 10/20/18 13:45 120 H 160/60 10/20/18 13:30 129 H 141/82 10/20/18 13:15 128 H 120/65 10/20/18 13:00 129 H 131/71 10/20/18 12:45 125 H 126/71 10/20/18 12:30 127 H 148/78 10/20/18 12:15 131 H 134/72 10/20/18 12:00 125 H 125/67 10/20/18 11:45 116 H 124/65 10/20/18 11:30 120 H 162/83 10/20/18 11:15 113 H 149/84 10/20/18 11:00 113 H 150/92 10/20/18 10:45 98.3 F 113 H 20 150/92 10/20/18 10:00 10/20/18 09:12 118 H 160/97 10/20/18 09:11 118 H 160/97 10/20/18 08:27 99.1 F 118 H 24 10/20/18 08:26 99.1 F 10/20/18 08:23 24 160/97 10/20/18 04:11 107 H 20 151/103 10/20/18 00:17 100 H 20 139/95 10/20/18 00:00 109 H 25 H 10/19/18 23:30 137/87 10/19/18 23:20 107 H 37 H 137/87 10/19/18 23:10 109 H 41 H 137/87 10/19/18 23:00 110 H 35 H 150/95 10/19/18 22:50 112 H 39 H 149/94 10/19/18 22:41 113 H 137/87 10/19/18 22:40 114 H 38 H 149/94 BP Pulse Ox 10/20/18 21:08 10/20/18 20:43 10/20/18 20:22 97 10/20/18 20:15 10/20/18 20:00 99 10/20/18 19:00 100 10/20/18 18:00 10/20/18 17:30 98 10/20/18 17:18 10/20/18 15:18 10/20/18 15:01 10/20/18 14:45 10/20/18 14:30 10/20/18 14:15 10/20/18 14:00 10/20/18 13:45 10/20/18 13:30 10/20/18 13:15 10/20/18 13:00 10/20/18 12:45 10/20/18 12:30 10/20/18 12:15 10/20/18 12:00 10/20/18 11:45 10/20/18 11:30 10/20/18 11:15 10/20/18 11:00 10/20/18 10:45 10/20/18 10:00 99 10/20/18 09:12 10/20/18 09:11 10/20/18 08:27 160/97 92 10/20/18 08:26 10/20/18 08:23 10/20/18 04:11 97 10/20/18 00:17 100 10/20/18 00:00 99 10/19/18 23:30 98 10/19/18 23:20 98 10/19/18 23:10 100 10/19/18 23:00 99 10/19/18 22:50 99 10/19/18 22:41 10/19/18 22:40 99 - Physical Examination Neck: Positive: neck supple Abdomen: Positive: Soft Extremities: Absent: edema - Labs and Meds CBC 10/20/18 Range/Units 16:01 WBC 12.8 H (4.5-11.0) K/mm3 RBC 2.59 L (3.65-5.03) M/mm3 Hgb 7.9 L (11.8-15.2) gm/dl Hct 23.7 L (35.5-45.6) % Plt Count 125 L D (140-440) K/mm3 Comprehensive Metabolic Panel 10/20/18 10/20/18 Range/Units 04:13 16:01 Sodium 141 140 (137-145) mmol/L Potassium 5.8 H D 4.0 D (3.6-5.0) mmol/L Chloride 96.0 L 96.8 L (98-107) mmol/L Carbon Dioxide 19 L 26 D (22-30) mmol/L BUN 97 H 28 H (9-20) mg/dL Creatinine 10.4 H 3.6 H D (0.8-1.5) mg/dL Glucose 134 H 127 H (75-100) mg/dL Calcium 8.2 L 8.6 (8.4-10.2) mg/dL
[2018-10-21] MEDS: DUONEB *Not for PRN Use IH SCH ×4 (03:00→19:24)
[2018-10-21] MEDS: TYLENOL PO PRN ×2 (04:08→23:30)
[2018-10-21] MEDS: ATIVAN IV PRN (04:09)
[2018-10-21] MEDS: PFIZERPEN 12 MIL.UNITS in NACL 0.9% 250ML 250 ML IV SCH ×2 (04:10→13:46)
[2018-10-21 06:01] LABS: Calcium 8.2 mg/dL (8.4-10.2)
[2018-10-21] MEDS: BROVANA NEBU IH SCH ×2 (08:20→19:24)
--- NOTE | 2018-10-21 09:29 | Progress Note ---
Assessment and Plan / Acute encephalopathy, stable now Neurology following, likely from possible vaculitis vs neurosyphilis Acute CVA?? continue to treat underlying possible cause cont to monitor at IMCU /Acute resp failure s/p intubated in ED Intubated for airway protection, patient was very lethargic and confused on admission Pulm following, self extubated 10/16/18 Continue nebs frequent suctioning and supplemental O2 as needed CXR shows new infiltrates likely aspiration, cont abx /HIV/AIDS No previous records available ID Physician following VL 320,000 / CD4=3 on 10/11/2018 /Acute CVA with Bilateral infarcts with edema Consulted Neurology, he was evaluated by DR. Valentine. Could be due to possible vasculitis - further workup pending Neuro did not recommend anti-platelets /SHRUTHI due to ATN patient started on hemodialysis Baseline unknown /Urinary retention Unable to place Ricketts catheter Consulted and called Dr. Paula, urology and he came and placed suprapubic catheter patient now on HD /Severe Sepsis with syphilis and HIV - s/p LP, but initial work up doesv not corelate with meningitis Per ID: - f/u CSF culture, VDRL, CMV-PCR, T.gondii PCR, cryptococcal antigen - continue ganciclovir to cover empirically VZV/CMV D6 - continue on penicillin G continues infusion to cover empirically neurosyphilis D5 until CSF VDRL is back - cont meprom 1,500 MG PO qday for PJP prophylaxis, toxo IgG negative - f/u CMV DNA PCR and AFB-blood culture - all pending - negative repeat blood culture /Thrombocytopenia, Likely from severe sepsis s/p 2 Units platelets transfused, continue to monitor /Anemia, multifactorial s/p total 4 Units PRBC, stool positive for occult blood Seen by GI, conservative management /Hyperkalemia, resolved /Elevated LFT, from possible underlying sepsis and HIV - Continue to trend /Hyperlipidemia, low fat TF diet /Hypertensive urgency. Started on cardene drip, wean off as tolerated /Elevated Troponin Likely due to kidney disease, 2-D echo 45-50% /Dysphagia, speech eval pending, cont TF now Prognosis guarded Full code status. brief History patient is 43 YO Male with HIV, hypertension, previous stroke, Nicotine Dependence, presents to ED for evaluation. Patient was confused and lethargic and unable to provide history. He was seen and evaluated in ED and found to be in distress and unable to protect his airway and was therefore intubated, placed on ventilator and admitted to ICU. Patient diagnosed with acute resp failure, renal failure(acute vs acute on chronic) , Encephalopathy, Acidosis. He continues to have fevers, followed by ID Physician for HIV/AIDS. renal failure worsened therefore started on hemodialysis. s/p LP on 10/16, workup so far negative for meningitis. He is positive for RPR - getting treated for syphilis Hospitalist Physical GEN: NAD HEENT: Normocephalic, atraumatic, Neck: supple, No JVD Lungs:+ rhonchi, no wheeze, tachypnic Heart:S1 and S2 regular, no murmurs, rubs or gallop, Abd:soft, non tender, non distended, normal bowel sounds Ext: No edema, no clubbing or cyanosis Neuro: Follow simple commands, moves all extremity Skin: No rash Musculoskeletal: No joint swelling or tenderness Subjective Date of service: 10/21/18 Principal diagnosis: low plt Interval history: Patient seen and examined Self extubated himself 10/16 mental status much better today Objective - Constitutional Vitals: Vital Signs - 12hr 10/20/18 10/20/18 10/20/18 20:43 21:00 21:08 Temperature Pulse Rate 118 H 119 H Pulse Rate [ 115 H Bilateral Throughout] Pulse Rate [ From Monitor] Respiratory 21 Rate Respiratory 23 Rate [Bilateral Throughout] Blood Pressure 132/80 132/80 O2 Sat by Pulse 96 Oximetry 10/20/18 10/20/18 10/20/18 22:00 22:52 23:00 Temperature Pulse Rate 116 H 109 H 112 H Pulse Rate [ Bilateral Throughout] Pulse Rate [ From Monitor] Respiratory 30 H 25 H 33 H Rate Respiratory Rate [Bilateral Throughout] Blood Pressure 138/89 121/80 121/80 O2 Sat by Pulse 99 100 100 Oximetry 10/21/18 10/21/18 10/21/18 00:00 01:00 03:00 Temperature 99.6 F Pulse Rate 102 H 101 H 98 H Pulse Rate [ Bilateral Throughout] Pulse Rate [ 105 H From Monitor] Respiratory 19 22 21 Rate Respiratory Rate [Bilateral Throughout] Blood Pressure 127/80 116/81 124/79 O2 Sat by Pulse 99 98 Oximetry 10/21/18 10/21/18 10/21/18 04:00 05:00 06:00 Temperature 99.1 F Pulse Rate 106 H 103 H 105 H Pulse Rate [ Bilateral Throughout] Pulse Rate [ 106 H From Monitor] Respiratory 22 24 23 Rate Respiratory Rate [Bilateral Throughout] Blood Pressure 137/86 123/78 138/97 O2 Sat by Pulse 99 98 100 Oximetry 10/21/18 10/21/18 10/21/18 07:00 08:00 08:17 Temperature 98.0 F Pulse Rate 101 H 105 H Pulse Rate [ 108 H Bilateral Throughout] Pulse Rate [ From Monitor] Respiratory 23 27 H Rate Respiratory 24 Rate [Bilateral Throughout] Blood Pressure 129/83 148/93 O2 Sat by Pulse 98 98 Oximetry 10/21/18 10/21/18 08:18 09:00 Temperature Pulse Rate 108 H Pulse Rate [ Bilateral Throughout] Pulse Rate [ From Monitor] Respiratory 26 H Rate Respiratory Rate [Bilateral Throughout] Blood Pressure 148/99 O2 Sat by Pulse 100 100 Oximetry - Labs CBC & Chem 7: 10/20/18 16:01 10/21/18 05:05 Labs: Abnormal lab results 10/20/18 10/20/18 10/20/18 Range/Units 13:07 16:01 16:01 WBC 12.8 H (4.5-11.0) K/mm3 RBC 2.59 L (3.65-5.03) M/mm3 Hgb 7.9 L (11.8-15.2) gm/dl Hct 23.7 L (35.5-45.6) % RDW 21.7 H (13.2-15.2) % Plt Count 125 L D (140-440) K/mm3 POC ABG pH (7.35-7.45) POC ABG pCO2 (35-45) POC ABG pO2 (80-105) Chloride 96.8 L (98-107) mmol/L BUN 28 H (9-20) mg/dL Creatinine 3.6 H D (0.8-1.5) mg/dL Glucose 127 H (75-100) mg/dL POC Glucose 139 H (70-105) Calcium (8.4-10.2) mg/dL 10/20/18 10/20/18 10/21/18 Range/Units 18:35 21:19 05:05 WBC (4.5-11.0) K/mm3 RBC (3.65-5.03) M/mm3 Hgb (11.8-15.2) gm/dl Hct (35.5-45.6) % RDW (13.2-15.2) % Plt Count (140-440) K/mm3 POC ABG pH 7.596 H 7.587 H (7.35-7.45) POC ABG pCO2 30.2 L 30.0 L (35-45) POC ABG pO2 62 L 71 L (80-105) Chloride 96.7 L (98-107) mmol/L BUN 44 H (9-20) mg/dL Creatinine 5.8 H D (0.8-1.5) mg/dL Glucose 140 H (75-100) mg/dL POC Glucose (70-105) Calcium 8.2 L (8.4-10.2) mg/dL
--- NOTE | 2018-10-21 09:37 | Progress Note ---
Subjective Principal diagnosis: acute kidney injury Interval history: Patient was seen today for follow-up on multiple renal related issues Events of this hospitalization noted Dialysis dependent due to acute kidney injury Has had hemodialysis yesterday Vitals labs intake output medications were reviewed Social history: Reviewed Allergies: Reviewed Family history: Reviewed Physical examination HEENT: Oral mucosa moist no pallor or icterus Neck: Supple no JVD Chest: bilateral few basilar crackles CVS: Regular rate and rhythm S1 and S2 heard Abdomen: Soft nontender no suprapubic masses no organomegaly appreciable Extremity: Dry skin less than 1+ peripheral edema Musculoskeletal: No joint effusion noted in knees and ankle Neurological: Alert awake Dermatology: No petechial rashes Psychiatry: No evidence of any agitation and aggression noted Assessment and plan Acute kidney injury: Patient is currently dialysis dependent also seen in supervised on hemodialysis, current access is a dialysis catheter Etiology of renal failure appears to be due to acute kidney injury with superimposed chronic kidney disease, echogenic kidneys As of today potassium is 4.0 BUN 44 creatinine is 5.8 which was 10.9 yesterday patient has had a good dialysis treatment, he will need to continue with hemodialysis Chest x-ray as of yesterday shows evidence of bilateral pulmonary vascular congestion, pneumonia could not be excluded As of this admission immunofixation normal hepatitis profile negative, positive for syphilis Will order for lupus serologies, ANCA, Increase cioreg Bilateral brain infarct with edema Prognosis very poor Patient will need longer dialysis treatment today and will need a postdialysis labs He is not a candidate for kidney biopsy due to echogenic kidneys Would like to avoid nephrotoxic medications Ejection fraction 45%/nonsustained ventricular tachycardia cardiology following Pancytopenia: Slowly improving hemoglobin 7.5 platelet count 60,000 Severe protein calorie malnutrition patient needs to be in high protein diet Hyperkalemia: Potassium noted to be 5.8 with a BUN of 97 creatinine 10.4 10/20/2018, better now We'll continue to follow and make recommendation from renal standpoint Objective - Vital Signs Vital signs: Vital Signs - 12hr 10/20/18 10/20/18 10/20/18 20:43 21:00 21:08 Temperature Pulse Rate 118 H 119 H Pulse Rate [ 115 H Bilateral Throughout] Pulse Rate [ From Monitor] Respiratory 21 Rate Respiratory 23 Rate [Bilateral Throughout] Blood Pressure 132/80 132/80 O2 Sat by Pulse 96 Oximetry 10/20/18 10/20/18 10/20/18 22:00 22:52 23:00 Temperature Pulse Rate 116 H 109 H 112 H Pulse Rate [ Bilateral Throughout] Pulse Rate [ From Monitor] Respiratory 30 H 25 H 33 H Rate Respiratory Rate [Bilateral Throughout] Blood Pressure 138/89 121/80 121/80 O2 Sat by Pulse 99 100 100 Oximetry 10/21/18 10/21/18 10/21/18 00:00 01:00 03:00 Temperature 99.6 F Pulse Rate 102 H 101 H 98 H Pulse Rate [ Bilateral Throughout] Pulse Rate [ 105 H From Monitor] Respiratory 19 22 21 Rate Respiratory Rate [Bilateral Throughout] Blood Pressure 127/80 116/81 124/79 O2 Sat by Pulse 99 98 Oximetry 10/21/18 10/21/18 10/21/18 04:00 05:00 06:00 Temperature 99.1 F Pulse Rate 106 H 103 H 105 H Pulse Rate [ Bilateral Throughout] Pulse Rate [ 106 H From Monitor] Respiratory 22 24 23 Rate Respiratory Rate [Bilateral Throughout] Blood Pressure 137/86 123/78 138/97 O2 Sat by Pulse 99 98 100 Oximetry 10/21/18 10/21/18 10/21/18 07:00 08:00 08:17 Temperature 98.0 F Pulse Rate 101 H 105 H Pulse Rate [ 108 H Bilateral Throughout] Pulse Rate [ From Monitor] Respiratory 23 27 H Rate Respiratory 24 Rate [Bilateral Throughout] Blood Pressure 129/83 148/93 O2 Sat by Pulse 98 98 Oximetry 10/21/18 10/21/18 08:18 09:00 Temperature Pulse Rate 108 H Pulse Rate [ Bilateral Throughout] Pulse Rate [ From Monitor] Respiratory 26 H Rate Respiratory Rate [Bilateral Throughout] Blood Pressure 148/99 O2 Sat by Pulse 100 100 Oximetry - Lab 10/20/18 16:01 10/21/18 05:05 Most recent lab results Calcium 8.2 mg/dL (8.4-10.2) L 10/21/18 05:05 Phosphorus 5.10 mg/dL (2.5-4.5) H 10/12/18 04:57 Magnesium 3.10 mg/dL (1.7-2.3) H 10/18/18 05:03 Urine Creatinine 30.8 mg/dL (0.1-20.0) H 10/13/18 04:43 Urine Sodium 106 mmol/L 10/13/18 04:43 Urine Total Protein 75 mg/dL (5-11.8) H 10/13/18 04:43 Medications & Allergies - Medications Allergies/Adverse Reactions: Allergies Sulfa (Sulfonamide Antibiotics) Allergy (Verified 10/10/18 16:54) Unknown Home Medications: Home Medications Medication Instructions Recorded Confirmed Last Taken Type Acetaminophen [Tylenol] 1,000 mg PO Q6HR 10/10/18 10/10/18 Unknown History Amlodipine Besylate [Norvasc] 10 mg PO QDAY 10/10/18 10/10/18 Unknown History Aspirin [Adult Aspirin] 81 mg PO DAILY 10/10/18 10/10/18 Unknown History Atorvastatin [Lipitor Tab] 80 mg PO DAILY 10/10/18 10/10/18 Unknown History Losartan [Cozaar] 100 mg PO QDAY 10/10/18 10/10/18 Unknown History Multivitamin [Multiple Vitamins] 1 each PO DAILY 10/10/18 10/10/18 Unknown History hydroCHLOROthiazide [HCTZ] 25 mg PO QDAY 10/10/18 10/10/18 Unknown History Active Medications: Generic Name Dose Route Start Last Admin Trade Name Freq PRN Reason Stop Dose Admin Acetaminophen 500 mg 10/16/18 10:02 10/21/18 04:08 Tylenol PO 500 mg Q6H PRN Administration Fever >101 Albuterol 2.5 mg 10/10/18 18:12 Proventil IH Q3HRT PRN Shortness Of Breath Albuterol/Ipratropium 1 ampul 10/20/18 14:30 10/21/18 08:16 Duoneb *Not For Prn Use* IH 1 ampul Q6HRT RUBI Administration Amlodipine Besylate 10 mg 10/11/18 10:00 10/20/18 09:11 Norvasc PO 10 mg QDAY RUBI Administration Lipase/Protease/Amylase 1 each 10/11/18 12:58 Pancrebecka Reed 10,500 Unit FEEDTUBE PRN PRN For Clogged Feeding Tube Arformoterol Tartrate 15 mcg 10/20/18 11:45 10/21/18 08:20 Blade Menendez IH Not Given Q12HRT RUBI Atovaquone 750 mg 10/18/18 10:00 10/20/18 21:39 Mepron PO 750 mg BID RUBI Administration Carvedilol 6.25 mg 10/15/18 11:00 10/20/18 21:08 Coreg PO 6.25 mg BID RUBI Administration Haloperidol Lactate 5 mg 10/13/18 19:45 10/20/18 21:08 Haldol IV 5 mg Q6H PRN Administration Agitation Hydralazine HCl 10 mg 10/12/18 15:50 10/18/18 06:36 Apresoline IV 10 mg Q4HR PRN Administration SBP>175 or DBP>115 Hydrophilic Ointment 1 applic 10/10/18 17:53 Vaseline Lip Therapy TP Q2HR PRN Dry Lips Penicillin G Potassium 12 mil. 250 mls @ 20.833 mls/hr 10/12/18 14:00 10/21/18 04:10 units/ Sodium Chloride IV 20.833 mls/hr Q12H RUBI Administration Ganciclovir Sodium 80 mg/ 250 mls @ 100 mls/hr 10/15/18 20:00 10/19/18 22:35 Sodium Chloride IV 100 mls/hr MoWeFr RUBI Administration Sodium Chloride 100 mls @ 999 mls/hr 10/17/18 17:23 Nacl 0.9% IV CHON PRN Hypotension Sodium Chloride 100 mls @ 999 mls/hr 10/20/18 09:54 Nacl 0.9% IV CHON PRN Hypotension Lansoprazole 30 mg 10/15/18 10:00 10/20/18 21:07 Prevacid Solutab FEEDTUBE 30 mg BID RUBI Administration Lorazepam 1 mg 10/13/18 19:48 10/21/18 04:09 Ativan IV 1 mg Q4H PRN Administration agitation Metoprolol Tartrate 5 mg 10/18/18 14:05 Lopressor IV Q6HR PRN Tachyarrhythmias Multi-Ingred Cream/Lotion/Oil/Oint 1 applic 10/10/18 17:53 Artificial Tears Ophth Oint OU Q4HR PRN Dry Eye(s) Multivitamins 1 each 10/11/18 10:00 10/20/18 09:11 Theragran Tab PO 1 each DAILY RUBI Administration Simple Syrup 15 ml 10/11/18 12:58 Simple Syrup FEEDTUBE PRN PRN Hypoglycemia Simple Syrup 30 ml 10/11/18 12:58 Simple Syrup FEEDTUBE PRN PRN Hypoglycemia Sodium Bicarbonate 325 mg 10/11/18 12:58 Sodium Bicarbonate FEEDTUBE PRN PRN For Clogged Feeding Tube Sodium Chloride 10 ml 10/10/18 22:00 10/20/18 21:08 Sodium Chloride Flush Syringe 10 Ml IV 10 ml BID RUBI Administration Sodium Chloride 10 ml 10/10/18 18:12 Sodium Chloride Flush Syringe 10 Ml IV PRN PRN LINE FLUSH
[2018-10-21] MEDS: COREG PO SCH ×2 (10:29→22:27)
[2018-10-21] MEDS: NORVASC PO SCH (10:30)
[2018-10-21] MEDS: THERAGRAN Tab PO SCH (10:31)
[2018-10-21] MEDS: PREVACID SOLUTAB FEEDTUBE SCH ×2 (10:31→22:29)
[2018-10-21] MEDS: SODIUM CHLORIDE FLUSH SYRINGE 10 ML IV SCH ×2 (10:31→22:29)
[2018-10-21] MEDS: MEPRON PO SCH ×2 (10:43→22:26)
--- NOTE | 2018-10-21 10:51 | Progress Note ---
Assessment and Plan - Patient Problems (1) Acute kidney injury Current Visit: Yes Status: Acute (2) Acute respiratory failure Current Visit: Yes Status: Acute Qualifiers: Respiratory failure complication: hypoxia Qualified Code(s): J96.01 - Acute respiratory failure with hypoxia (3) Anemia Current Visit: Yes Status: Acute Qualifiers: Chronic kidney disease stage: unspecified stage (4) Encephalopathy Current Visit: Yes Status: Acute (5) HIV (human immunodeficiency virus infection) Current Visit: Yes Status: Acute Qualifiers: HIV symptom status: symptomatic Qualified Code(s): B20 - Human immunodeficiency virus [HIV] disease (6) History of CVA (cerebrovascular accident) Current Visit: Yes Status: Acute (7) Hypertensive emergency Current Visit: Yes Status: Acute (8) Sepsis Current Visit: Yes Status: Acute Subjective Principal diagnosis: acute kidney injury Interval history: transfered to [facility] Objective Vital Signs - 12hr 10/20/18 10/20/18 10/20/18 22:00 22:52 23:00 Temperature Pulse Rate 116 H 109 H 112 H Pulse Rate [ Bilateral Throughout] Pulse Rate [ From Monitor] Respiratory 30 H 25 H 33 H Rate Respiratory Rate [Bilateral Throughout] Blood Pressure 138/89 121/80 121/80 O2 Sat by Pulse 99 100 100 Oximetry 10/21/18 10/21/18 10/21/18 00:00 01:00 03:00 Temperature 99.6 F Pulse Rate 102 H 101 H 98 H Pulse Rate [ Bilateral Throughout] Pulse Rate [ 105 H From Monitor] Respiratory 19 22 21 Rate Respiratory Rate [Bilateral Throughout] Blood Pressure 127/80 116/81 124/79 O2 Sat by Pulse 99 98 Oximetry 10/21/18 10/21/18 10/21/18 04:00 05:00 06:00 Temperature 99.1 F Pulse Rate 106 H 103 H 105 H Pulse Rate [ Bilateral Throughout] Pulse Rate [ 106 H From Monitor] Respiratory 22 24 23 Rate Respiratory Rate [Bilateral Throughout] Blood Pressure 137/86 123/78 138/97 O2 Sat by Pulse 99 98 100 Oximetry 10/21/18 10/21/18 10/21/18 07:00 08:00 08:17 Temperature 98.0 F Pulse Rate 101 H 105 H Pulse Rate [ 108 H Bilateral Throughout] Pulse Rate [ From Monitor] Respiratory 23 27 H Rate Respiratory 24 Rate [Bilateral Throughout] Blood Pressure 129/83 148/93 O2 Sat by Pulse 98 98 Oximetry 10/21/18 10/21/18 10/21/18 08:18 09:00 10:29 Temperature Pulse Rate 108 H 107 H Pulse Rate [ Bilateral Throughout] Pulse Rate [ From Monitor] Respiratory 26 H Rate Respiratory Rate [Bilateral Throughout] Blood Pressure 148/99 143/101 O2 Sat by Pulse 100 100 Oximetry 10/21/18 10:30 Temperature Pulse Rate 110 H Pulse Rate [ Bilateral Throughout] Pulse Rate [ From Monitor] Respiratory Rate Respiratory Rate [Bilateral Throughout] Blood Pressure 143/101 O2 Sat by Pulse Oximetry Constitutional: no acute distress, alert Eyes: non-icteric ENT: other (orally intubated, not on sedation, critically ill on vent) Neck: supple, no JVD Effort: mildly labored Ascultation: Bilateral: diminished breath sounds, rhonchi Percussion: Bilateral: not dull Cardiovascular: regular rate and rhythm (sinus tach), other (+ S3 gallop at apex) Gastrointestinal: normoactive bowel sounds, other (now with suprapubic catheter) Extremities: no cyanosis, no edema Neurologic: pupils equal and round, CN II-XII normal CBC and BMP: 10/20/18 16:01 10/21/18 05:05 ABG, PT/INR, D-dimer: ABG POC ABG pH 7.535 (7.35-7.45) H 10/21/18 09:49 POC ABG pCO2 32.0 (35-45) L 10/21/18 09:49 POC ABG pO2 57 (80-105) L 10/21/18 09:49 POC ABG HCO3 27.1 10/21/18 09:49 POC ABG Total CO2 28 10/21/18 09:49 POC ABG O2 Sat 93 10/21/18 09:49 PT/INR, D-dimer PT 14.5 Sec. (12.2-14.9) 10/15/18 00:59 INR 1.06 (0.87-1.13) 10/15/18 00:59 Abnormal lab findings: Abnormal Labs 10/10/18 10/10/18 10/10/18 15:02 15:02 15:02 WBC RBC 2.38 L Hgb 8.1 L Hct 24.9 L MCV 105 H MCH 34 H MCHC RDW 21.4 H Plt Count 20 L Seg Neuts % (Manual) 84.0 H Lymphocytes % (Manual) 8.0 L Monocytes % (Manual) Eosinophils % (Manual) Basophils % (Manual) Nucleated RBC % Seg Neutrophils # Man 7.8 H Abs Lymphs (Manual) Lymphocytes # (Manual) 0.7 L Monocytes # (Manual) Eosinophils # (Manual) Basophils # (Manual) PT 16.2 H INR 1.22 H POC ABG pH POC ABG pCO2 POC ABG pO2 Sodium 136 L Potassium Chloride 88.2 L Carbon Dioxide 8 L* BUN 70 H Creatinine 5.6 H Glucose 331 H POC Glucose Lactic Acid Uric Acid Calcium Phosphorus Magnesium TIBC Ferritin Total Bilirubin Direct Bilirubin AST ALT Alkaline Phosphatase Lactate Dehydrogenase Troponin T 0.298 H* NT-Pro-B Natriuret Pep Total Protein Albumin Triglycerides 329 H Cholesterol 234 H LDL Cholesterol Direct 139 H Vitamin B12 Urine Creatinine Urine Total Protein Lymph Enumerat CD4/CD8 Absolute CD3 Count % CD4 Cells Absolute CD4 Count % CD8 Cells Absolute CD19 Count T.pallidum Ab (FTA-ABS) HIV-1 RNA PCR copies/ml HIV-1 RNA (PCR) log Crossmatch 10/10/18 10/10/18 10/10/18 15:05 15:29 15:42 WBC RBC Hgb Hct MCV MCH MCHC RDW Plt Count Seg Neuts % (Manual) Lymphocytes % (Manual) Monocytes % (Manual) Eosinophils % (Manual) Basophils % (Manual) Nucleated RBC % Seg Neutrophils # Man Abs Lymphs (Manual) Lymphocytes # (Manual) Monocytes # (Manual) Eosinophils # (Manual) Basophils # (Manual) PT INR POC ABG pH POC ABG pCO2 POC ABG pO2 Sodium Potassium Chloride Carbon Dioxide BUN Creatinine Glucose POC Glucose 274 H Lactic Acid 17.90 H* Uric Acid Calcium Phosphorus Magnesium TIBC Ferritin Total Bilirubin Direct Bilirubin AST ALT Alkaline Phosphatase Lactate Dehydrogenase Troponin T NT-Pro-B Natriuret Pep Total Protein Albumin Triglycerides Cholesterol LDL Cholesterol Direct Vitamin B12 Urine Creatinine Urine Total Protein Lymph Enumerat CD4/CD8 Absolute CD3 Count % CD4 Cells Absolute CD4 Count % CD8 Cells Absolute CD19 Count T.pallidum Ab (FTA-ABS) HIV-1 RNA PCR copies/ml HIV-1 RNA (PCR) log Crossmatch See Detail 10/10/18 10/10/18 10/10/18 15:42 16:22 16:54 WBC RBC Hgb Hct MCV MCH MCHC RDW Plt Count Seg Neuts % (Manual) Lymphocytes % (Manual) Monocytes % (Manual) Eosinophils % (Manual) Basophils % (Manual) Nucleated RBC % Seg Neutrophils # Man Abs Lymphs (Manual) Lymphocytes # (Manual) Monocytes # (Manual) Eosinophils # (Manual) Basophils # (Manual) PT INR POC ABG pH POC ABG pCO2 9.0 L POC ABG pO2 140 H Sodium Potassium Chloride Carbon Dioxide BUN Creatinine Glucose POC Glucose Lactic Acid Uric Acid Calcium Phosphorus Magnesium TIBC Ferritin Total Bilirubin 1.50 H Direct Bilirubin 0.4 H AST 105 H ALT Alkaline Phosphatase Lactate Dehydrogenase 2342 H Troponin T NT-Pro-B Natriuret Pep 62357 H Total Protein 9.2 H Albumin Triglycerides Cholesterol LDL Cholesterol Direct Vitamin B12 Urine Creatinine Urine Total Protein Lymph Enumerat CD4/CD8 Absolute CD3 Count % CD4 Cells Absolute CD4 Count % CD8 Cells Absolute CD19 Count T.pallidum Ab (FTA-ABS) HIV-1 RNA PCR copies/ml HIV-1 RNA (PCR) log Crossmatch 10/10/18 10/10/18 10/10/18 17:08 18:07 18:24 WBC RBC Hgb Hct MCV MCH MCHC RDW Plt Count Seg Neuts % (Manual) Lymphocytes % (Manual) Monocytes % (Manual) Eosinophils % (Manual) Basophils % (Manual) Nucleated RBC % Seg Neutrophils # Man Abs Lymphs (Manual) Lymphocytes # (Manual) Monocytes # (Manual) Eosinophils # (Manual) Basophils # (Manual) PT INR POC ABG pH 7.172 L POC ABG pCO2 POC ABG pO2 533 H Sodium Potassium Chloride Carbon Dioxide BUN Creatinine Glucose POC Glucose Lactic Acid 14.80 H* Uric Acid Calcium Phosphorus Magnesium TIBC Ferritin Total Bilirubin Direct Bilirubin AST ALT Alkaline Phosphatase Lactate Dehydrogenase Troponin T 0.272 H* NT-Pro-B Natriuret Pep Total Protein Albumin Triglycerides Cholesterol LDL Cholesterol Direct Vitamin B12 Urine Creatinine Urine Total Protein Lymph Enumerat CD4/CD8 Absolute CD3 Count % CD4 Cells Absolute CD4 Count % CD8 Cells Absolute CD19 Count T.pallidum Ab (FTA-ABS) HIV-1 RNA PCR copies/ml HIV-1 RNA (PCR) log Crossmatch 10/10/18 10/10/18 10/10/18 19:58 20:54 20:54 WBC RBC Hgb Hct MCV MCH MCHC RDW Plt Count Seg Neuts % (Manual) Lymphocytes % (Manual) Monocytes % (Manual) Eosinophils % (Manual) Basophils % (Manual) Nucleated RBC % Seg Neutrophils # Man Abs Lymphs (Manual) Lymphocytes # (Manual) Monocytes # (Manual) Eosinophils # (Manual) Basophils # (Manual) PT INR POC ABG pH POC ABG pCO2 POC ABG pO2 Sodium Potassium Chloride Carbon Dioxide BUN Creatinine Glucose POC Glucose Lactic Acid 11.50 H* 2.90 H* 2.90 H* Uric Acid Calcium Phosphorus Magnesium TIBC Ferritin Total Bilirubin Direct Bilirubin AST ALT Alkaline Phosphatase Lactate Dehydrogenase Troponin T NT-Pro-B Natriuret Pep Total Protein Albumin Triglycerides Cholesterol LDL Cholesterol Direct Vitamin B12 Urine Creatinine Urine Total Protein Lymph Enumerat CD4/CD8 Absolute CD3 Count % CD4 Cells Absolute CD4 Count % CD8 Cells Absolute CD19 Count T.pallidum Ab (FTA-ABS) HIV-1 RNA PCR copies/ml HIV-1 RNA (PCR) log Crossmatch 10/10/18 10/10/18 10/11/18 22:43 23:55 02:44 WBC RBC Hgb Hct MCV MCH MCHC RDW Plt Count Seg Neuts % (Manual) Lymphocytes % (Manual) Monocytes % (Manual) Eosinophils % (Manual) Basophils % (Manual) Nucleated RBC % Seg Neutrophils # Man Abs Lymphs (Manual) Lymphocytes # (Manual) Monocytes # (Manual) Eosinophils # (Manual) Basophils # (Manual) PT INR POC ABG pH POC ABG pCO2 25.9 L POC ABG pO2 192 H Sodium Potassium Chloride Carbon Dioxide BUN Creatinine Glucose POC Glucose Lactic Acid 4.60 H* 5.40 H* Uric Acid Calcium Phosphorus Magnesium TIBC Ferritin Total Bilirubin Direct Bilirubin AST ALT Alkaline Phosphatase Lactate Dehydrogenase Troponin T NT-Pro-B Natriuret Pep Total Protein Albumin Triglycerides Cholesterol LDL Cholesterol Direct Vitamin B12 Urine Creatinine Urine Total Protein Lymph Enumerat CD4/CD8 Absolute CD3 Count % CD4 Cells Absolute CD4 Count % CD8 Cells Absolute CD19 Count T.pallidum Ab (FTA-ABS) HIV-1 RNA PCR copies/ml HIV-1 RNA (PCR) log Crossmatch 10/11/18 10/11/18 10/11/18 02:55 02:55 03:34 WBC RBC 2.35 L Hgb 7.7 L Hct 22.9 L MCV 98 H MCH 33 H MCHC RDW 19.9 H Plt Count 23 L Seg Neuts % (Manual) 75.0 H Lymphocytes % (Manual) 11.0 L Monocytes % (Manual) Eosinophils % (Manual) Basophils % (Manual) Nucleated RBC % Seg Neutrophils # Man Abs Lymphs (Manual) Lymphocytes # (Manual) 1.0 L Monocytes # (Manual) Eosinophils # (Manual) Basophils # (Manual) PT INR POC ABG pH POC ABG pCO2 POC ABG pO2 Sodium Potassium 5.3 H D Chloride Carbon Dioxide 14 L BUN 74 H Creatinine 5.4 H Glucose 126 H POC Glucose Lactic Acid 5.30 H* Uric Acid Calcium 7.8 L D Phosphorus Magnesium TIBC Ferritin Total Bilirubin 1.90 H Direct Bilirubin AST 306 H ALT 89 H Alkaline Phosphatase 246 H Lactate Dehydrogenase Troponin T NT-Pro-B Natriuret Pep Total Protein Albumin 3.4 L Triglycerides Cholesterol LDL Cholesterol Direct Vitamin B12 Urine Creatinine Urine Total Protein Lymph Enumerat CD4/CD8 Absolute CD3 Count % CD4 Cells Absolute CD4 Count % CD8 Cells Absolute CD19 Count T.pallidum Ab (FTA-ABS) HIV-1 RNA PCR copies/ml HIV-1 RNA (PCR) log Crossmatch 10/11/18 10/11/18 10/11/18 03:34 05:47 05:48 WBC RBC Hgb Hct MCV MCH MCHC RDW Plt Count Seg Neuts % (Manual) Lymphocytes % (Manual) Monocytes % (Manual) Eosinophils % (Manual) Basophils % (Manual) Nucleated RBC % Seg Neutrophils # Man Abs Lymphs (Manual) Lymphocytes # (Manual) Monocytes # (Manual) Eosinophils # (Manual) Basophils # (Manual) PT INR POC ABG pH 7.491 H POC ABG pCO2 24.9 L POC ABG pO2 166 H Sodium Potassium 5.2 H Chloride Carbon Dioxide 16 L BUN 80 H Creatinine 5.5 H Glucose 63 L POC Glucose Lactic Acid 3.80 H* Uric Acid Calcium 7.9 L Phosphorus Magnesium TIBC Ferritin Total Bilirubin Direct Bilirubin AST ALT Alkaline Phosphatase Lactate Dehydrogenase Troponin T NT-Pro-B Natriuret Pep Total Protein Albumin Triglycerides Cholesterol LDL Cholesterol Direct Vitamin B12 Urine Creatinine Urine Total Protein Lymph Enumerat CD4/CD8 Absolute CD3 Count % CD4 Cells Absolute CD4 Count % CD8 Cells Absolute CD19 Count T.pallidum Ab (FTA-ABS) HIV-1 RNA PCR copies/ml HIV-1 RNA (PCR) log Crossmatch 10/11/18 10/11/18 10/11/18 09:56 17:34 17:34 WBC RBC Hgb Hct MCV MCH MCHC RDW Plt Count Seg Neuts % (Manual) Lymphocytes % (Manual) Monocytes % (Manual) Eosinophils % (Manual) Basophils % (Manual) Nucleated RBC % Seg Neutrophils # Man Abs Lymphs (Manual) Lymphocytes # (Manual) Monocytes # (Manual) Eosinophils # (Manual) Basophils # (Manual) PT INR POC ABG pH POC ABG pCO2 POC ABG pO2 Sodium Potassium 3.4 L D Chloride Carbon Dioxide 17 L BUN 97 H Creatinine 7.3 H Glucose 135 H POC Glucose Lactic Acid 2.60 H* 2.30 H* Uric Acid Calcium 7.9 L Phosphorus 5.80 H Magnesium 2.70 H TIBC Ferritin Total Bilirubin Direct Bilirubin AST ALT Alkaline Phosphatase Lactate Dehydrogenase Troponin T NT-Pro-B Natriuret Pep Total Protein Albumin Triglycerides Cholesterol LDL Cholesterol Direct Vitamin B12 Urine Creatinine Urine Total Protein Lymph Enumerat CD4/CD8 Absolute CD3 Count % CD4 Cells Absolute CD4 Count % CD8 Cells Absolute CD19 Count T.pallidum Ab (FTA-ABS) HIV-1 RNA PCR copies/ml HIV-1 RNA (PCR) log Crossmatch 10/11/18 10/11/18 10/11/18 17:35 17:36 17:36 WBC RBC Hgb Hct MCV MCH MCHC RDW Plt Count Seg Neuts % (Manual) Lymphocytes % (Manual) Monocytes % (Manual) Eosinophils % (Manual) Basophils % (Manual) Nucleated RBC % Seg Neutrophils # Man Abs Lymphs (Manual) 267 L Lymphocytes # (Manual) Monocytes # (Manual) Eosinophils # (Manual) Basophils # (Manual) PT INR POC ABG pH POC ABG pCO2 POC ABG pO2 Sodium Potassium Chloride Carbon Dioxide BUN Creatinine Glucose POC Glucose Lactic Acid Uric Acid 13.4 H Calcium Phosphorus Magnesium TIBC 236 L Ferritin 25826.0 H Total Bilirubin Direct Bilirubin AST ALT Alkaline Phosphatase Lactate Dehydrogenase Troponin T NT-Pro-B Natriuret Pep Total Protein Albumin Triglycerides Cholesterol LDL Cholesterol Direct Vitamin B12 Urine Creatinine Urine Total Protein Lymph Enumerat CD4/CD8 0.01 L Absolute CD3 Count 226 L % CD4 Cells 1 L Absolute CD4 Count 3 L % CD8 Cells 82 H Absolute CD19 Count 16 L T.pallidum Ab (FTA-ABS) HIV-1 RNA PCR copies/ml HIV-1 RNA (PCR) log Crossmatch 10/11/18 10/11/18 10/11/18 17:36 19:21 20:08 WBC RBC Hgb Hct MCV MCH MCHC RDW Plt Count Seg Neuts % (Manual) Lymphocytes % (Manual) Monocytes % (Manual) Eosinophils % (Manual) Basophils % (Manual) Nucleated RBC % Seg Neutrophils # Man Abs Lymphs (Manual) Lymphocytes # (Manual) Monocytes # (Manual) Eosinophils # (Manual) Basophils # (Manual) PT INR POC ABG pH POC ABG pCO2 POC ABG pO2 Sodium Potassium Chloride Carbon Dioxide 16 L BUN 99 H Creatinine 8.1 H Glucose 147 H POC Glucose Lactic Acid 2.60 H* Uric Acid Calcium 7.7 L Phosphorus Magnesium 2.60 H TIBC Ferritin Total Bilirubin Direct Bilirubin AST ALT Alkaline Phosphatase Lactate Dehydrogenase Troponin T NT-Pro-B Natriuret Pep Total Protein Albumin Triglycerides Cholesterol LDL Cholesterol Direct Vitamin B12 Urine Creatinine Urine Total Protein Lymph Enumerat CD4/CD8 Absolute CD3 Count % CD4 Cells Absolute CD4 Count % CD8 Cells Absolute CD19 Count T.pallidum Ab (FTA-ABS) HIV-1 RNA PCR copies/ml 788822 H HIV-1 RNA (PCR) log 5.51 H Crossmatch 10/11/18 10/11/18 10/12/18 21:32 23:01 04:29 WBC RBC Hgb Hct MCV MCH MCHC RDW Plt Count Seg Neuts % (Manual) Lymphocytes % (Manual) Monocytes % (Manual) Eosinophils % (Manual) Basophils % (Manual) Nucleated RBC % Seg Neutrophils # Man Abs Lymphs (Manual) Lymphocytes # (Manual) Monocytes # (Manual) Eosinophils # (Manual) Basophils # (Manual) PT INR POC ABG pH 7.493 H POC ABG pCO2 23.1 L POC ABG pO2 176 H Sodium Potassium Chloride Carbon Dioxide BUN Creatinine Glucose POC Glucose Lactic Acid 2.60 H* 3.20 H* Uric Acid Calcium Phosphorus Magnesium TIBC Ferritin Total Bilirubin Direct Bilirubin AST ALT Alkaline Phosphatase Lactate Dehydrogenase Troponin T NT-Pro-B Natriuret Pep Total Protein Albumin Triglycerides Cholesterol LDL Cholesterol Direct Vitamin B12 Urine Creatinine Urine Total Protein Lymph Enumerat CD4/CD8 Absolute CD3 Count % CD4 Cells Absolute CD4 Count % CD8 Cells Absolute CD19 Count T.pallidum Ab (FTA-ABS) HIV-1 RNA PCR copies/ml HIV-1 RNA (PCR) log Crossmatch 10/12/18 10/12/18 10/12/18 04:57 04:57 04:57 WBC 15.0 H RBC 1.75 L Hgb 5.6 L* Hct 16.7 L* D MCV 95 H MCH MCHC RDW 20.7 H Plt Count 49 L D Seg Neuts % (Manual) 90.0 H Lymphocytes % (Manual) 4.0 L Monocytes % (Manual) Eosinophils % (Manual) Basophils % (Manual) Nucleated RBC % 12.0 H Seg Neutrophils # Man 12.3 H Abs Lymphs (Manual) Lymphocytes # (Manual) 0.5 L Monocytes # (Manual) Eosinophils # (Manual) Basophils # (Manual) PT 18.0 H INR 1.39 H POC ABG pH POC ABG pCO2 POC ABG pO2 Sodium Potassium 3.0 L D Chloride Carbon Dioxide 15 L BUN 102 H Creatinine 8.8 H Glucose 110 H POC Glucose Lactic Acid Uric Acid Calcium 7.6 L Phosphorus 5.10 H Magnesium 2.50 H TIBC Ferritin Total Bilirubin Direct Bilirubin AST 667 H ALT 298 H Alkaline Phosphatase 154 H Lactate Dehydrogenase Troponin T NT-Pro-B Natriuret Pep Total Protein Albumin 2.8 L Triglycerides Cholesterol LDL Cholesterol Direct Vitamin B12 Urine Creatinine Urine Total Protein Lymph Enumerat CD4/CD8 Absolute CD3 Count % CD4 Cells Absolute CD4 Count % CD8 Cells Absolute CD19 Count T.pallidum Ab (FTA-ABS) HIV-1 RNA PCR copies/ml HIV-1 RNA (PCR) log Crossmatch 10/12/18 10/12/18 10/12/18 06:43 14:05 Unknown WBC 14.0 H RBC 2.76 L Hgb 5.8 L* 8.7 L Hct 17.2 L* 25.1 L D MCV MCH MCHC 35 H RDW 19.0 H Plt Count 53 L Seg Neuts % (Manual) Lymphocytes % (Manual) 5.0 L Monocytes % (Manual) Eosinophils % (Manual) Basophils % (Manual) Nucleated RBC % 40.0 H Seg Neutrophils # Man 9.0 H Abs Lymphs (Manual) Lymphocytes # (Manual) 0.7 L Monocytes # (Manual) Eosinophils # (Manual) Basophils # (Manual) PT INR POC ABG pH POC ABG pCO2 POC ABG pO2 Sodium Potassium Chloride Carbon Dioxide BUN Creatinine Glucose POC Glucose Lactic Acid Uric Acid Calcium Phosphorus Magnesium TIBC Ferritin Total Bilirubin Direct Bilirubin AST ALT Alkaline Phosphatase Lactate Dehydrogenase Troponin T NT-Pro-B Natriuret Pep Total Protein Albumin Triglycerides Cholesterol LDL Cholesterol Direct Vitamin B12 Urine Creatinine Urine Total Protein Lymph Enumerat CD4/CD8 Absolute CD3 Count % CD4 Cells Absolute CD4 Count % CD8 Cells Absolute CD19 Count T.pallidum Ab (FTA-ABS) Reactive H HIV-1 RNA PCR copies/ml HIV-1 RNA (PCR) log Crossmatch 10/13/18 10/13/18 10/13/18 03:40 03:40 03:40 WBC 11.5 H RBC 2.58 L Hgb 8.2 L Hct 22.9 L MCV MCH MCHC 36 H RDW 19.5 H Plt Count 123 L D Seg Neuts % (Manual) 93.0 H Lymphocytes % (Manual) 0 L Monocytes % (Manual) Eosinophils % (Manual) Basophils % (Manual) Nucleated RBC % 44.0 H Seg Neutrophils # Man 10.7 H Abs Lymphs (Manual) Lymphocytes # (Manual) 0.0 L Monocytes # (Manual) Eosinophils # (Manual) Basophils # (Manual) PT 15.6 H INR 1.17 H POC ABG pH POC ABG pCO2 POC ABG pO2 Sodium Potassium 3.3 L Chloride Carbon Dioxide 21 L BUN 51 H Creatinine 5.7 H Glucose 140 H POC Glucose Lactic Acid Uric Acid Calcium 7.9 L Phosphorus Magnesium TIBC Ferritin Total Bilirubin Direct Bilirubin AST 367 H ALT 238 H Alkaline Phosphatase 134 H Lactate Dehydrogenase Troponin T NT-Pro-B Natriuret Pep Total Protein 6.2 L Albumin 2.5 L Triglycerides Cholesterol LDL Cholesterol Direct Vitamin B12 Urine Creatinine Urine Total Protein Lymph Enumerat CD4/CD8 Absolute CD3 Count % CD4 Cells Absolute CD4 Count % CD8 Cells Absolute CD19 Count T.pallidum Ab (FTA-ABS) HIV-1 RNA PCR copies/ml HIV-1 RNA (PCR) log Crossmatch 10/13/18 10/13/18 10/14/18 04:10 04:43 04:34 WBC RBC 2.47 L Hgb 7.7 L Hct 21.9 L MCV MCH MCHC 35 H RDW 21.2 H Plt Count 40 L Seg Neuts % (Manual) Lymphocytes % (Manual) Monocytes % (Manual) Eosinophils % (Manual) Basophils % (Manual) Nucleated RBC % Seg Neutrophils # Man Abs Lymphs (Manual) Lymphocytes # (Manual) Monocytes # (Manual) Eosinophils # (Manual) Basophils # (Manual) PT INR POC ABG pH 7.522 H POC ABG pCO2 29.1 L POC ABG pO2 132 H Sodium Potassium Chloride Carbon Dioxide BUN Creatinine Glucose POC Glucose Lactic Acid Uric Acid Calcium Phosphorus Magnesium TIBC Ferritin Total Bilirubin Direct Bilirubin AST ALT Alkaline Phosphatase Lactate Dehydrogenase Troponin T NT-Pro-B Natriuret Pep Total Protein Albumin Triglycerides Cholesterol LDL Cholesterol Direct Vitamin B12 Urine Creatinine 30.8 H Urine Total Protein 75 H Lymph Enumerat CD4/CD8 Absolute CD3 Count % CD4 Cells Absolute CD4 Count % CD8 Cells Absolute CD19 Count T.pallidum Ab (FTA-ABS) HIV-1 RNA PCR copies/ml HIV-1 RNA (PCR) log Crossmatch 10/14/18 10/14/18 10/15/18 04:34 08:51 03:14 WBC RBC 2.36 L Hgb 7.5 L Hct 21.1 L MCV MCH MCHC 36 H RDW 21.9 H Plt Count 31 L Seg Neuts % (Manual) Lymphocytes % (Manual) 8.0 L Monocytes % (Manual) 9.0 H Eosinophils % (Manual) Basophils % (Manual) 2.0 H Nucleated RBC % 129.0 H Seg Neutrophils # Man Abs Lymphs (Manual) Lymphocytes # (Manual) 0.7 L Monocytes # (Manual) Eosinophils # (Manual) Basophils # (Manual) 0.2 H PT INR POC ABG pH POC ABG pCO2 POC ABG pO2 Sodium Potassium Chloride Carbon Dioxide BUN 35 H Creatinine 5.2 H Glucose 144 H POC Glucose Lactic Acid Uric Acid Calcium Phosphorus Magnesium TIBC Ferritin Total Bilirubin Direct Bilirubin AST ALT Alkaline Phosphatase Lactate Dehydrogenase Troponin T NT-Pro-B Natriuret Pep Total Protein Albumin Triglycerides Cholesterol LDL Cholesterol Direct Vitamin B12 912.3 H Urine Creatinine Urine Total Protein Lymph Enumerat CD4/CD8 Absolute CD3 Count % CD4 Cells Absolute CD4 Count % CD8 Cells Absolute CD19 Count T.pallidum Ab (FTA-ABS) HIV-1 RNA PCR copies/ml HIV-1 RNA (PCR) log Crossmatch 10/15/18 10/15/18 10/16/18 03:14 19:22 04:07 WBC RBC 2.08 L Hgb 6.5 L Hct 18.4 L* MCV MCH MCHC 35 H RDW 22.9 H Plt Count 68 L D Seg Neuts % (Manual) Lymphocytes % (Manual) Monocytes % (Manual) Eosinophils % (Manual) Basophils % (Manual) Nucleated RBC % Seg Neutrophils # Man Abs Lymphs (Manual) Lymphocytes # (Manual) Monocytes # (Manual) Eosinophils # (Manual) Basophils # (Manual) PT INR POC ABG pH 7.552 H POC ABG pCO2 34.8 L POC ABG pO2 195 H Sodium 147 H Potassium Chloride Carbon Dioxide BUN 59 H Creatinine 8.0 H D Glucose 153 H POC Glucose Lactic Acid Uric Acid Calcium 8.3 L Phosphorus Magnesium TIBC Ferritin Total Bilirubin Direct Bilirubin AST 179 H ALT 156 H Alkaline Phosphatase 130 H Lactate Dehydrogenase Troponin T NT-Pro-B Natriuret Pep Total Protein Albumin 2.7 L Triglycerides Cholesterol LDL Cholesterol Direct Vitamin B12 Urine Creatinine Urine Total Protein Lymph Enumerat CD4/CD8 Absolute CD3 Count % CD4 Cells Absolute CD4 Count % CD8 Cells Absolute CD19 Count T.pallidum Ab (FTA-ABS) HIV-1 RNA PCR copies/ml HIV-1 RNA (PCR) log Crossmatch 10/16/18 10/16/18 10/16/18 04:07 04:07 08:31 WBC RBC Hgb Hct MCV MCH MCHC RDW Plt Count Seg Neuts % (Manual) Lymphocytes % (Manual) Monocytes % (Manual) Eosinophils % (Manual) Basophils % (Manual) Nucleated RBC % Seg Neutrophils # Man Abs Lymphs (Manual) Lymphocytes # (Manual) Monocytes # (Manual) Eosinophils # (Manual) Basophils # (Manual) PT INR POC ABG pH POC ABG pCO2 POC ABG pO2 Sodium Potassium Chloride Carbon Dioxide BUN 50 H Creatinine 6.2 H Glucose 142 H POC Glucose Lactic Acid Uric Acid Calcium Phosphorus Magnesium TIBC Ferritin Total Bilirubin Direct Bilirubin AST 136 H 134 H ALT 106 H 107 H Alkaline Phosphatase Lactate Dehydrogenase Troponin T NT-Pro-B Natriuret Pep Total Protein Albumin 2.7 L 2.8 L Triglycerides Cholesterol LDL Cholesterol Direct Vitamin B12 Urine Creatinine Urine Total Protein Lymph Enumerat CD4/CD8 Absolute CD3 Count % CD4 Cells Absolute CD4 Count % CD8 Cells Absolute CD19 Count T.pallidum Ab (FTA-ABS) HIV-1 RNA PCR copies/ml HIV-1 RNA (PCR) log Crossmatch See Detail 10/16/18 10/17/18 10/17/18 11:24 04:20 07:53 WBC RBC 2.86 L Hgb 8.5 L Hct 25.1 L D MCV MCH MCHC RDW 19.0 H Plt Count 63 L Seg Neuts % (Manual) Lymphocytes % (Manual) 3.0 L Monocytes % (Manual) 14.0 H Eosinophils % (Manual) Basophils % (Manual) Nucleated RBC % 45.0 H Seg Neutrophils # Man 9.8 H Abs Lymphs (Manual) Lymphocytes # (Manual) 0.4 L Monocytes # (Manual) 2.0 H Eosinophils # (Manual) Basophils # (Manual) PT INR POC ABG pH POC ABG pCO2 POC ABG pO2 Sodium 146 H Potassium Chloride Carbon Dioxide 19 L BUN 82 H Creatinine 9.1 H Glucose 117 H POC Glucose 144 H Lactic Acid Uric Acid Calcium Phosphorus Magnesium TIBC Ferritin Total Bilirubin Direct Bilirubin AST 127 H ALT 84 H Alkaline Phosphatase Lactate Dehydrogenase Troponin T NT-Pro-B Natriuret Pep Total Protein Albumin 3.0 L Triglycerides Cholesterol LDL Cholesterol Direct Vitamin B12 Urine Creatinine Urine Total Protein Lymph Enumerat CD4/CD8 Absolute CD3 Count % CD4 Cells Absolute CD4 Count % CD8 Cells Absolute CD19 Count T.pallidum Ab (FTA-ABS) HIV-1 RNA PCR copies/ml HIV-1 RNA (PCR) log Crossmatch 10/17/18 10/18/18 10/18/18 07:53 05:03 05:03 WBC RBC Hgb Hct MCV MCH MCHC RDW Plt Count Seg Neuts % (Manual) Lymphocytes % (Manual) Monocytes % (Manual) Eosinophils % (Manual) Basophils % (Manual) Nucleated RBC % Seg Neutrophils # Man Abs Lymphs (Manual) Lymphocytes # (Manual) Monocytes # (Manual) Eosinophils # (Manual) Basophils # (Manual) PT INR POC ABG pH POC ABG pCO2 POC ABG pO2 Sodium 147 H Potassium 5.1 H Chloride Carbon Dioxide 19 L 19 L BUN 89 H 115 H Creatinine 9.5 H 12.0 H Glucose 122 H 210 H POC Glucose Lactic Acid Uric Acid Calcium Phosphorus Magnesium 3.10 H TIBC Ferritin Total Bilirubin Direct Bilirubin AST ALT Alkaline Phosphatase Lactate Dehydrogenase Troponin T NT-Pro-B Natriuret Pep Total Protein Albumin Triglycerides Cholesterol LDL Cholesterol Direct Vitamin B12 Urine Creatinine Urine Total Protein Lymph Enumerat CD4/CD8 Absolute CD3 Count % CD4 Cells Absolute CD4 Count % CD8 Cells Absolute CD19 Count T.pallidum Ab (FTA-ABS) HIV-1 RNA PCR copies/ml HIV-1 RNA (PCR) log Crossmatch 10/18/18 10/19/18 10/19/18 21:12 03:38 03:38 WBC RBC 2.45 L Hgb 7.5 L Hct 21.9 L MCV MCH MCHC RDW 21.3 H Plt Count 60 L Seg Neuts % (Manual) 81.0 H Lymphocytes % (Manual) 8.0 L Monocytes % (Manual) Eosinophils % (Manual) 6.0 H Basophils % (Manual) Nucleated RBC % 104.0 H Seg Neutrophils # Man Abs Lymphs (Manual) Lymphocytes # (Manual) 0.7 L Monocytes # (Manual) Eosinophils # (Manual) 0.5 H Basophils # (Manual) PT INR POC ABG pH POC ABG pCO2 POC ABG pO2 Sodium Potassium Chloride Carbon Dioxide BUN 74 H Creatinine 8.7 H Glucose 134 H POC Glucose 120 H Lactic Acid Uric Acid Calcium 8.1 L Phosphorus Magnesium TIBC Ferritin Total Bilirubin Direct Bilirubin AST ALT Alkaline Phosphatase Lactate Dehydrogenase Troponin T NT-Pro-B Natriuret Pep Total Protein Albumin Triglycerides Cholesterol LDL Cholesterol Direct Vitamin B12 Urine Creatinine Urine Total Protein Lymph Enumerat CD4/CD8 Absolute CD3 Count % CD4 Cells Absolute CD4 Count % CD8 Cells Absolute CD19 Count T.pallidum Ab (FTA-ABS) HIV-1 RNA PCR copies/ml HIV-1 RNA (PCR) log Crossmatch 10/20/18 10/20/18 10/20/18 04:13 13:07 16:01 WBC 12.8 H RBC 2.59 L Hgb 7.9 L Hct 23.7 L MCV MCH MCHC RDW 21.7 H Plt Count 125 L D Seg Neuts % (Manual) Lymphocytes % (Manual) Monocytes % (Manual) Eosinophils % (Manual) Basophils % (Manual) Nucleated RBC % Seg Neutrophils # Man Abs Lymphs (Manual) Lymphocytes # (Manual) Monocytes # (Manual) Eosinophils # (Manual) Basophils # (Manual) PT INR POC ABG pH POC ABG pCO2 POC ABG pO2 Sodium Potassium 5.8 H D Chloride 96.0 L Carbon Dioxide 19 L BUN 97 H Creatinine 10.4 H Glucose 134 H POC Glucose 139 H Lactic Acid Uric Acid Calcium 8.2 L Phosphorus Magnesium TIBC Ferritin Total Bilirubin Direct Bilirubin AST ALT Alkaline Phosphatase Lactate Dehydrogenase Troponin T NT-Pro-B Natriuret Pep Total Protein Albumin Triglycerides Cholesterol LDL Cholesterol Direct Vitamin B12 Urine Creatinine Urine Total Protein Lymph Enumerat CD4/CD8 Absolute CD3 Count % CD4 Cells Absolute CD4 Count % CD8 Cells Absolute CD19 Count T.pallidum Ab (FTA-ABS) HIV-1 RNA PCR copies/ml HIV-1 RNA (PCR) log Crossmatch 10/20/18 10/20/18 10/20/18 16:01 18:35 21:19 WBC RBC Hgb Hct MCV MCH MCHC RDW Plt Count Seg Neuts % (Manual) Lymphocytes % (Manual) Monocytes % (Manual) Eosinophils % (Manual) Basophils % (Manual) Nucleated RBC % Seg Neutrophils # Man Abs Lymphs (Manual) Lymphocytes # (Manual) Monocytes # (Manual) Eosinophils # (Manual) Basophils # (Manual) PT INR POC ABG pH 7.596 H 7.587 H POC ABG pCO2 30.2 L 30.0 L POC ABG pO2 62 L 71 L Sodium Potassium Chloride 96.8 L Carbon Dioxide BUN 28 H Creatinine 3.6 H D Glucose 127 H POC Glucose Lactic Acid Uric Acid Calcium Phosphorus Magnesium TIBC Ferritin Total Bilirubin Direct Bilirubin AST ALT Alkaline Phosphatase Lactate Dehydrogenase Troponin T NT-Pro-B Natriuret Pep Total Protein Albumin Triglycerides Cholesterol LDL Cholesterol Direct Vitamin B12 Urine Creatinine Urine Total Protein Lymph Enumerat CD4/CD8 Absolute CD3 Count % CD4 Cells Absolute CD4 Count % CD8 Cells Absolute CD19 Count T.pallidum Ab (FTA-ABS) HIV-1 RNA PCR copies/ml HIV-1 RNA (PCR) log Crossmatch 10/21/18 10/21/18 05:05 09:49 WBC RBC Hgb Hct MCV MCH MCHC RDW Plt Count Seg Neuts % (Manual) Lymphocytes % (Manual) Monocytes % (Manual) Eosinophils % (Manual) Basophils % (Manual) Nucleated RBC % Seg Neutrophils # Man Abs Lymphs (Manual) Lymphocytes # (Manual) Monocytes # (Manual) Eosinophils # (Manual) Basophils # (Manual) PT INR POC ABG pH 7.535 H POC ABG pCO2 32.0 L POC ABG pO2 57 L Sodium Potassium Chloride 96.7 L Carbon Dioxide BUN 44 H Creatinine 5.8 H D Glucose 140 H POC Glucose Lactic Acid Uric Acid Calcium 8.2 L Phosphorus Magnesium TIBC Ferritin Total Bilirubin Direct Bilirubin AST ALT Alkaline Phosphatase Lactate Dehydrogenase Troponin T NT-Pro-B Natriuret Pep Total Protein Albumin Triglycerides Cholesterol LDL Cholesterol Direct Vitamin B12 Urine Creatinine Urine Total Protein Lymph Enumerat CD4/CD8 Absolute CD3 Count % CD4 Cells Absolute CD4 Count % CD8 Cells Absolute CD19 Count T.pallidum Ab (FTA-ABS) HIV-1 RNA PCR copies/ml HIV-1 RNA (PCR) log Crossmatch
--- NOTE | 2018-10-21 11:02 | XRay Report ---
PROCEDURE: XR CHEST 1V AP TECHNIQUE: Chest radiograph, portable semiupright AP view. HISTORY: sob COMPARISONS: Chest x-ray October 20, 2018. FINDINGS: Stable cardiomegaly. Prominent bilateral pulmonary markings with perihilar airspace opacities. Focal patchy consolidation in the right lower lobe. No pneumothorax. No significant effusion. There are no suspicious osseous lesions. Enteric tube tip and sidehole are present within the proximal stomach. IMPRESSION: * Pulmonary findings suggest pulmonary vascular congestion with edema. Focal edema, infiltrate, subs egmental atelectasis, or aspiration in the right lower lobe. Overall similar to prior. This document is electronically signed by Luis Cunningham MD., October 21 2018 10:59:54 AM ET
--- NOTE | 2018-10-21 11:41 | Progress Note ---
Assessment and Plan Cultures: Blood culture 10/10/2018 no growth. Sputum culture 10/10/2018 Ana Paula albicans. Crypto Ag 10/10/2018 neg. Urine culture 10/13/2018 no growth. Blood culture 10/17/2018 no growth. Blood culture 10/20/2018: in progress Assessment: 43 y/o male with history of HIV (unknown CD4/VL/ART intake), HTN, CVA 6 months ago at [facility], Nicotine Dependence, Malnutrition; admitted on 10/10/2018 due to AMS (confusion/lethargy) and slurred speech for 24 h: 1) Severe SIRS versus sepsis: Spiking Fevers, now leukocytosis. Unclear etiology ? aspiration pneumonia +/- opportunistic brain infection - CXR neg - Unable to obtain UA - patient was anuric - BNP 70K - Troponin 0.2 - LDH 2242 2) Acute hypoxemic respiratory failure: for airway protection +/- ? pneumonia. Repeat CXR no consolidations. Ana Paula in tracha sp likely a colonizer. Extubated 10/15 3) Acute encephalopathy: not better; multifactorial ?from hypertensive urgency +/- brain opportunistic infection. DDx: Neurosyphilis, VZV/CMV encephalitis versus [employer] lymphoma versus less likely PML - CT head showed bilateral chronic ischemic changes. - Brain MRI showed areas of edema in the basal ganglia and thalami bilaterally, within the jamari and in the cerebral hemispheres bilaterally in the subcortical and deep white matter and in portions of the cortex, areas of encephalomalacia in the basal ganglia bilaterally with evidence of previous hemorrhage or mineral deposition and numerous small foci of acute infarct in the basal ganglia bilaterally, subinsular regions bilaterally and medial temporal lobes bilaterally and possibly in the occipital cortex bilaterally. - RPR reactive 1:32 / FTA ABs reactive - Brain MRA showed possible dissection versus artifact at the basilar artery. Luminal irregularity at the anterior, middle, and posterior cerebral arteries as well as the carotid siphons may represent mild to moderate atherosclerotic disease. More notable narrowing at the distal right A1 segment. Differential diagnosis includes motion artifact and vasculitis. Vertebral arteries are not clearly visualized. - CSF wbc 4, rbc 113, Seg 8%, Lymph 76%, protein 55, glucose 73 which is not c/w meningitis - Toxoplasma IgG negative - On ganciclovir, penicillin and high dosed mepron - CMV DNA VL=1,370, 3.1 log on ganciclovir. 4) Anemia/thrombocytopenia ? unclear etiology, worsening ?HIV myelosuppression ?disseminated MAC/CMV ?ganciclovir 5) Acute on CKD or SHRUTHI ? unclear etiology: r/o rhabdo ?ischemia. Started on HD 6) Elevated lactate ? Lactate 17. 7) DM: uncontrolled 8) Elevated LFTs ? 9) HIV/AIDS: VL 320,000 / CD4=3 on 10/11/2018 Recommendations: - f/u CSF culture, VDRL, CMV-PCR, T.gondii PCR, cryptococcal antigen - continue ganciclovir to cover empirically VZV/CMV D8 - discontinue penicillin G - continue Mepron (atovaquone) 1,500 MG PO qday for PJP prophylaxis, toxo IgG negative - f/u AFB-blood culture - pending - f/u repeat blood culture -start Ceftriaxone SERGIO [facility] M: [phone] O:[phone] Subjective Date of service: 10/21/18 Principal diagnosis: acute kidney injury Interval history: Patient seen and examined. Asleep, difficult to arouse Speech garbled, does not follow commands. Objective - Exam Narrative Exam: General appearance: on NC O2 in NAD, Asleep, difficult to arouse. No acute distress observed Eyes: anicteric sclerae, moist conjunctivae; no lid-lag; PERRLA HENT: Atraumatic; oropharynx limited Neck: Trachea midline; supple, no thyromegaly or lymphadenopathy Lungs: CTA, with normal respiratory effort and no intercostal retractions CV: tachycardic Abdomen: Soft, non-tender;+SP cath Extremities: No peripheral edema or extremity lymphadenopathy Skin: Normal temperature, turgor and texture; no rash, ulcers or subcutaneous nodules Psych: affect: flatl Neuro: non-focal, does not follow simple commands, , +garbled speech - Constitutional Vitals: Vital Signs Temp Pulse Resp BP Pulse Ox 98.0 F 110 H 26 H 143/101 100 10/21/18 08:00 10/21/18 10:30 10/21/18 09:00 10/21/18 10:30 10/21/18 09:00 Temperature -Last 24 Hours Temperature 98.0 F Temperature 99.1 F Temperature 99.6 F Temperature 101.1 F Temperature 98.6 F Temperature 98.3 F - Labs CBC & Chem 7: 10/20/18 16:01 10/21/18 05:05 Labs: Abnormal lab results 10/20/18 10/20/18 10/20/18 Range/Units 13:07 16:01 16:01 WBC 12.8 H (4.5-11.0) K/mm3 RBC 2.59 L (3.65-5.03) M/mm3 Hgb 7.9 L (11.8-15.2) gm/dl Hct 23.7 L (35.5-45.6) % RDW 21.7 H (13.2-15.2) % Plt Count 125 L D (140-440) K/mm3 POC ABG pH (7.35-7.45) POC ABG pCO2 (35-45) POC ABG pO2 (80-105) Chloride 96.8 L (98-107) mmol/L BUN 28 H (9-20) mg/dL Creatinine 3.6 H D (0.8-1.5) mg/dL Glucose 127 H (75-100) mg/dL POC Glucose 139 H (70-105) Calcium (8.4-10.2) mg/dL 10/20/18 10/20/18 10/21/18 Range/Units 18:35 21:19 05:05 WBC (4.5-11.0) K/mm3 RBC (3.65-5.03) M/mm3 Hgb (11.8-15.2) gm/dl Hct (35.5-45.6) % RDW (13.2-15.2) % Plt Count (140-440) K/mm3 POC ABG pH 7.596 H 7.587 H (7.35-7.45) POC ABG pCO2 30.2 L 30.0 L (35-45) POC ABG pO2 62 L 71 L (80-105) Chloride 96.7 L (98-107) mmol/L BUN 44 H (9-20) mg/dL Creatinine 5.8 H D (0.8-1.5) mg/dL Glucose 140 H (75-100) mg/dL POC Glucose (70-105) Calcium 8.2 L (8.4-10.2) mg/dL 10/21/18 Range/Units 09:49 WBC (4.5-11.0) K/mm3 RBC (3.65-5.03) M/mm3 Hgb (11.8-15.2) gm/dl Hct (35.5-45.6) % RDW (13.2-15.2) % Plt Count (140-440) K/mm3 POC ABG pH 7.535 H (7.35-7.45) POC ABG pCO2 32.0 L (35-45) POC ABG pO2 57 L (80-105) Chloride (98-107) mmol/L BUN (9-20) mg/dL Creatinine (0.8-1.5) mg/dL Glucose (75-100) mg/dL POC Glucose (70-105) Calcium (8.4-10.2) mg/dL
--- NOTE | 2018-10-21 14:22 | Hem/Onc Progress Note ---
Assessment and Plan 1. Anemia. At admission, hemoglobin was 8.1, later low and s/p Transfusion support. 2. Platelets at admission was 20. 3. White cell count was elevated. 4. PT/INR h/o slightly elevated. 5. Renal failure. 6. ALT elevated. 7. The patient has multiple medical issues. PLAN: I will ask for a smear evaluation. I will call the lab for same. Supportive care in the interim while we looked for primary etiology. 3/ - plt better - s/p transfusion d/w dr rain and dr carrillo 10/14 - low plt - rasta ctive bleed suprapubic catheter 10/15 - plt were rising and again going down' pt had got plt transfusion LDH high - [id number] ordered smear - ordererd LDH may be high in other causes too - renal etc 10/16 - d/w path - not many schistocytes on smear - ADAMTS 13 ordered extubated 10/17 - plt low - path review ordered d/w armin monsalve 10/18 - path report pending plt low - but no active bleeding 10/19 - pt more alert - follows commands no bleeding 10/20 pt SOB - d/w Dr Monsalve and RN plt low - but no bleeding NGT+ more awake 10/21 - [place] [facility] [place] >100 - more awake - Patient Problems (1) Thrombocytopenia associated with AIDS Current Visit: Yes Status: Acute Subjective Date of service: 10/21/18 Principal diagnosis: low plt Interval history: [place] [facility] [place] Objective - Constitutional Vitals: Last Vital Signs Temp 97.3 F L 10/21/18 12:00 Pulse 99 H 10/21/18 12:00 Resp 21 10/21/18 12:00 BP 132/87 10/21/18 12:00 Pulse Ox 100 10/21/18 12:00 Pain Intensity (0-10): denies any pain General appearance: no acute distress Performance status: 4-completely disabled - EENT Eyes: EOM intact ENT: clear oral mucosa Lymph node exam: negative cervical - Neck Neck: normal ROM - Respiratory Respiratory effort: Positive: normal Respiratory: bilateral: CTA (anteriorly) - Cardiovascular Heart Sounds: Present: S1 & S2 Extremities: No edema - Gastrointestinal General gastrointestinal: Present: soft, non-tender Rectal Exam: deferred - Genitourinary Male genitourinary: Present: deferred - Integumentary Integumentary: warm - Musculoskeletal Musculoskeletal: generalized weakness - Neurologic Neurologic: moves all extremities - Labs Lab Results: Laboratory Results - last 24 hr 10/16/18 10/20/18 10/20/18 15:00 16:01 16:01 WBC 12.8 H RBC 2.59 L Hgb 7.9 L Hct 23.7 L MCV 92 MCH 31 MCHC 33 RDW 21.7 H Plt Count 125 L D POC ABG pH POC ABG pCO2 POC ABG pO2 POC ABG HCO3 POC ABG Total CO2 POC ABG O2 Sat POC ABG Base Excess FiO2 Sodium 140 Potassium 4.0 D Chloride 96.8 L Carbon Dioxide 26 D Anion Gap 21 BUN 28 H Creatinine 3.6 H D Estimated GFR 23 BUN/Creatinine Ratio 8 Glucose 127 H Calcium 8.6 Miscellaneous Test Flexitest 1 10/20/18 10/20/18 10/21/18 18:35 21:19 05:05 WBC RBC Hgb Hct MCV MCH MCHC RDW Plt Count POC ABG pH 7.596 H 7.587 H POC ABG pCO2 30.2 L 30.0 L POC ABG pO2 62 L 71 L POC ABG HCO3 29.4 28.6 POC ABG Total CO2 30 30 POC ABG O2 Sat 95 97 POC ABG Base Excess 8 7 FiO2 21 28 Sodium 141 Potassium 4.0 Chloride 96.7 L Carbon Dioxide 26 Anion Gap 22 BUN 44 H Creatinine 5.8 H D Estimated GFR 13 BUN/Creatinine Ratio 8 Glucose 140 H Calcium 8.2 L Miscellaneous Test 10/21/18 09:49 WBC RBC Hgb Hct MCV MCH MCHC RDW Plt Count POC ABG pH 7.535 H POC ABG pCO2 32.0 L POC ABG pO2 57 L POC ABG HCO3 27.1 POC ABG Total CO2 28 POC ABG O2 Sat 93 POC ABG Base Excess 4 FiO2 21 Sodium Potassium Chloride Carbon Dioxide Anion Gap BUN Creatinine Estimated GFR BUN/Creatinine Ratio Glucose Calcium Miscellaneous Test Medications & Allergies - Medications Allergies/Adverse Reactions: Allergies Sulfa (Sulfonamide Antibiotics) Allergy (Verified 10/10/18 16:54) Unknown Home Medications: Home Medications Medication Instructions Recorded Confirmed Last Taken Type Acetaminophen [Tylenol] 1,000 mg PO Q6HR 10/10/18 10/10/18 Unknown History Amlodipine Besylate [Norvasc] 10 mg PO QDAY 10/10/18 10/10/18 Unknown History Aspirin [Adult Aspirin] 81 mg PO DAILY 10/10/18 10/10/18 Unknown History Atorvastatin [Lipitor Tab] 80 mg PO DAILY 10/10/18 10/10/18 Unknown History Losartan [Cozaar] 100 mg PO QDAY 10/10/18 10/10/18 Unknown History Multivitamin [Multiple Vitamins] 1 each PO DAILY 10/10/18 10/10/18 Unknown History hydroCHLOROthiazide [HCTZ] 25 mg PO QDAY 10/10/18 10/10/18 Unknown History Active Medications: Generic Name Dose Route Start Last Admin Trade Name Freq PRN Reason Stop Dose Admin Acetaminophen 500 mg 10/16/18 10:02 10/21/18 04:08 Tylenol PO 500 mg Q6H PRN Administration Fever >101 Albuterol 2.5 mg 10/10/18 18:12 Proventil IH Q3HRT PRN Shortness Of Breath Albuterol/Ipratropium 1 ampul 10/20/18 14:30 10/21/18 08:16 Duoneb *Not For Prn Use* IH 1 ampul Q6HRT RUBI Administration Amlodipine Besylate 10 mg 10/11/18 10:00 10/21/18 10:30 Norvasc PO 10 mg QDAY RUBI Administration Lipase/Protease/Amylase 1 each 10/11/18 12:58 Pancrebecka Reed 10,500 Unit FEEDTUBE PRN PRN For Clogged Feeding Tube Arformoterol Tartrate 15 mcg 10/20/18 11:45 10/21/18 08:20 Blade Menendez IH Not Given Q12HRT RUBI Atovaquone 750 mg 10/18/18 10:00 10/21/18 10:43 Mepron PO 750 mg BID RUBI Administration Carvedilol 12.5 mg 10/21/18 09:40 10/21/18 10:29 Coreg PO 12.5 mg BID RUBI Administration Haloperidol Lactate 5 mg 10/13/18 19:45 10/20/18 21:08 Haldol IV 5 mg Q6H PRN Administration Agitation Hydralazine HCl 10 mg 10/12/18 15:50 10/18/18 06:36 Apresoline IV 10 mg Q4HR PRN Administration SBP>175 or DBP>115 Hydrophilic Ointment 1 applic 10/10/18 17:53 Vaseline Lip Therapy TP Q2HR PRN Dry Lips Penicillin G Potassium 12 mil. 250 mls @ 20.833 mls/hr 10/12/18 14:00 10/21/18 13:46 units/ Sodium Chloride IV 20.833 mls/hr Q12H RUBI Administration Ganciclovir Sodium 80 mg/ 250 mls @ 100 mls/hr 10/15/18 20:00 10/19/18 22:35 Sodium Chloride IV 100 mls/hr MoWeFr RUBI Administration Sodium Chloride 100 mls @ 999 mls/hr 10/17/18 17:23 Nacl 0.9% IV CHON PRN Hypotension Sodium Chloride 100 mls @ 999 mls/hr 10/20/18 09:54 Nacl 0.9% IV CHON PRN Hypotension Lansoprazole 30 mg 10/15/18 10:00 10/21/18 10:31 Prevacid Solutab FEEDTUBE 30 mg BID RUBI Administration Lorazepam 1 mg 10/13/18 19:48 10/21/18 04:09 Ativan IV 1 mg Q4H PRN Administration agitation Metoprolol Tartrate 5 mg 10/18/18 14:05 Lopressor IV Q6HR PRN Tachyarrhythmias Multi-Ingred Cream/Lotion/Oil/Oint 1 applic 10/10/18 17:53 Artificial Tears Ophth Oint OU Q4HR PRN Dry Eye(s) Multivitamins 1 each 10/11/18 10:00 10/21/18 10:31 Theragran Tab PO 1 each DAILY RUBI Administration Simple Syrup 15 ml 10/11/18 12:58 Simple Syrup FEEDTUBE PRN PRN Hypoglycemia Simple Syrup 30 ml 10/11/18 12:58 Simple Syrup FEEDTUBE PRN PRN Hypoglycemia Sodium Bicarbonate 325 mg 10/11/18 12:58 Sodium Bicarbonate FEEDTUBE PRN PRN For Clogged Feeding Tube Sodium Chloride 10 ml 10/10/18 22:00 10/21/18 10:31 Sodium Chloride Flush Syringe 10 Ml IV 10 ml BID RUBI Administration Sodium Chloride 10 ml 10/10/18 18:12 Sodium Chloride Flush Syringe 10 Ml IV PRN PRN LINE FLUSH
[2018-10-21] MEDS ORDERED: VANCOMYCIN PHARMACY TO DOSE IV SCH (15:00)
[2018-10-21] MEDS ORDERED: VANCOMYCIN 1,250 MG in NACL 0.9% 250ML 250 ML IV ONE (15:30)
[2018-10-21] MEDS: ROCEPHIN/NS 2 GM/100 ML 2 GM/100 ML BAG IV SCH (19:46)
[2018-10-22] MEDS: DUONEB *Not for PRN Use IH SCH ×4 (02:23→20:44)
[2018-10-22 06:21] LABS: Hematocrit 22.9 % (35.5-45.6); Hemoglobin 7.7 gm/dl (11.8-15.2); Mean Corpuscular HGB Conc 34 % (32-34); Mean Corpuscular Volume 91 fl (84-94); Red Blood Count 2.51 M/mm3 (3.65-5.03)
[2018-10-22 06:25] LABS: Red Cell Distribution Width 22.4 % (13.2-15.2)
[2018-10-22 06:47] LABS: Calcium 8.2 mg/dL (8.4-10.2)
--- NOTE | 2018-10-22 08:28 | Hem/Onc Progress Note ---
Assessment and Plan 1. Anemia. At admission, hemoglobin was 8.1, later low and s/p Transfusion support. 2. Platelets at admission was 20. 3. White cell count was elevated. 4. PT/INR h/o slightly elevated. 5. Renal failure. 6. ALT elevated. 7. The patient has multiple medical issues. PLAN: I will ask for a smear evaluation. I will call the lab for same. Supportive care in the interim while we looked for primary etiology. 3/ - plt better - s/p transfusion d/w dr rain and dr carrillo 10/14 - low plt - rasta ctive bleed suprapubic catheter 10/15 - plt were rising and again going down' pt had got plt transfusion LDH high - [id number] ordered smear - ordererd LDH may be high in other causes too - renal etc 10/16 - d/w path - not many schistocytes on smear - ADAMTS 13 ordered extubated 10/17 - plt low - path review ordered d/w armin monsalve 10/18 - path report pending plt low - but no active bleeding 10/19 - pt more alert - follows commands no bleeding 10/20 pt SOB - d/w Dr Monsalve and RN plt low - but no bleeding NGT+ more awake 10/21 - pt in [facility] plt >100 - more awake 10/22 - clinically better - moves all 4 limbs - Patient Problems (1) Thrombocytopenia associated with AIDS Current Visit: Yes Status: Acute Subjective Date of service: 10/22/18 Principal diagnosis: low plt Interval history: in icu - feeling better Objective - Constitutional Vitals: Last Vital Signs Temp 98.4 F 10/22/18 07:41 Pulse 104 H 10/22/18 06:00 Resp 31 H 10/22/18 06:00 BP 126/76 10/22/18 06:00 Pulse Ox 97 10/22/18 06:00 Pain Intensity (0-10): denies any pain General appearance: no acute distress Performance status: 4-completely disabled - EENT Eyes: EOM intact ENT: other (ngt) Lymph node exam: negative cervical - Neck Neck: normal ROM - Respiratory Respiratory effort: Positive: normal Respiratory: bilateral: diminished - Cardiovascular Heart Sounds: Present: S1 & S2 Extremities: No edema - Gastrointestinal General gastrointestinal: Present: soft, non-tender Rectal Exam: deferred - Genitourinary Male genitourinary: Present: deferred - Musculoskeletal Musculoskeletal: generalized weakness - Neurologic Neurologic: moves all extremities - Labs Lab Results: Laboratory Results - last 24 hr 10/16/18 10/21/18 10/22/18 15:00 09:49 05:51 RBC Hgb Hct MCV MCH MCHC RDW POC ABG pH 7.535 H POC ABG pCO2 32.0 L POC ABG pO2 57 L POC ABG HCO3 27.1 POC ABG Total CO2 28 POC ABG O2 Sat 93 POC ABG Base Excess 4 FiO2 21 Sodium 142 Potassium 4.8 Chloride 95.9 L Carbon Dioxide 21 L Anion Gap 30 BUN 71 H Creatinine 7.9 H Estimated GFR 9 BUN/Creatinine Ratio 9 Glucose 132 H Calcium 8.2 L Miscellaneous Test Flexitest 1 10/22/18 05:51 RBC 2.51 L Hgb 7.7 L Hct 22.9 L MCV 91 MCH 31 MCHC 34 RDW 22.4 H POC ABG pH POC ABG pCO2 POC ABG pO2 POC ABG HCO3 POC ABG Total CO2 POC ABG O2 Sat POC ABG Base Excess FiO2 Sodium Potassium Chloride Carbon Dioxide Anion Gap BUN Creatinine Estimated GFR BUN/Creatinine Ratio Glucose Calcium Miscellaneous Test Medications & Allergies - Medications Allergies/Adverse Reactions: Allergies Sulfa (Sulfonamide Antibiotics) Allergy (Verified 10/10/18 16:54) Unknown Home Medications: Home Medications Medication Instructions Recorded Confirmed Last Taken Type Acetaminophen [Tylenol] 1,000 mg PO Q6HR 10/10/18 10/10/18 Unknown History Amlodipine Besylate [Norvasc] 10 mg PO QDAY 10/10/18 10/10/18 Unknown History Aspirin [Adult Aspirin] 81 mg PO DAILY 10/10/18 10/10/18 Unknown History Atorvastatin [Lipitor Tab] 80 mg PO DAILY 10/10/18 10/10/18 Unknown History Losartan [Cozaar] 100 mg PO QDAY 10/10/18 10/10/18 Unknown History Multivitamin [Multiple Vitamins] 1 each PO DAILY 10/10/18 10/10/18 Unknown History hydroCHLOROthiazide [HCTZ] 25 mg PO QDAY 10/10/18 10/10/18 Unknown History Active Medications: Generic Name Dose Route Start Last Admin Trade Name Freq PRN Reason Stop Dose Admin Acetaminophen 500 mg 10/16/18 10:02 10/21/18 23:30 Tylenol PO 500 mg Q6H PRN Administration Fever >101 Albuterol 2.5 mg 10/10/18 18:12 Proventil IH Q3HRT PRN Shortness Of Breath Albuterol/Ipratropium 1 ampul 10/20/18 14:30 10/22/18 02:23 Duoneb *Not For Prn Use* IH Not Given Q6HRT RUBI Amlodipine Besylate 10 mg 10/11/18 10:00 10/21/18 10:30 Norvasc PO 10 mg QDAY RUBI Administration Lipase/Protease/Amylase 1 each 10/11/18 12:58 Pancreaze 10,500 Unit FEEDTUBE PRN PRN For Clogged Feeding Tube Arformoterol Tartrate 15 mcg 10/20/18 11:45 10/21/18 19:24 Brovana Nebu IH 15 mcg Q12HRT RUBI Administration Atovaquone 750 mg 10/18/18 10:00 10/21/18 22:26 Mepron PO 750 mg BID RUBI Administration Carvedilol 12.5 mg 10/21/18 09:40 10/21/18 22:27 Coreg PO 12.5 mg BID RUBI Administration Haloperidol Lactate 5 mg 10/13/18 19:45 10/20/18 21:08 Haldol IV 5 mg Q6H PRN Administration Agitation Hydralazine HCl 10 mg 10/12/18 15:50 10/18/18 06:36 Apresoline IV 10 mg Q4HR PRN Administration SBP>175 or DBP>115 Hydrophilic Ointment 1 applic 10/10/18 17:53 Vaseline Lip Therapy TP Q2HR PRN Dry Lips Ganciclovir Sodium 80 mg/ 250 mls @ 100 mls/hr 10/15/18 20:00 10/19/18 22:35 Sodium Chloride IV 100 mls/hr MoWeFr RUBI Administration Sodium Chloride 100 mls @ 999 mls/hr 10/17/18 17:23 Nacl 0.9% IV CHON PRN Hypotension Sodium Chloride 100 mls @ 999 mls/hr 10/20/18 09:54 Nacl 0.9% IV CHON PRN Hypotension Ceftriaxone Sodium 2 gm in 100 mls @ 200 mls/hr 10/21/18 15:00 10/21/18 19:46 Rocephin/Ns 2 Gm/100 Ml IV 200 mls/hr Q24HR RUBI Administration Protocol Lansoprazole 30 mg 10/15/18 10:00 10/21/18 22:29 Prevacid Solutab FEEDTUBE 30 mg BID RUBI Administration Lorazepam 1 mg 10/13/18 19:48 10/21/18 04:09 Ativan IV 1 mg Q4H PRN Administration agitation Metoprolol Tartrate 5 mg 10/18/18 14:05 Lopressor IV Q6HR PRN Tachyarrhythmias Multi-Ingred Cream/Lotion/Oil/Oint 1 applic 10/10/18 17:53 Artificial Tears Ophth Oint OU Q4HR PRN Dry Eye(s) Multivitamins 1 each 10/11/18 10:00 10/21/18 10:31 Theragran Tab PO 1 each DAILY RUBI Administration Simple Syrup 15 ml 10/11/18 12:58 Simple Syrup FEEDTUBE PRN PRN Hypoglycemia Simple Syrup 30 ml 10/11/18 12:58 Simple Syrup FEEDTUBE PRN PRN Hypoglycemia Sodium Bicarbonate 325 mg 10/11/18 12:58 Sodium Bicarbonate FEEDTUBE PRN PRN For Clogged Feeding Tube Sodium Chloride 10 ml 10/10/18 22:00 10/21/18 22:29 Sodium Chloride Flush Syringe 10 Ml IV 10 ml BID RUBI Administration Sodium Chloride 10 ml 10/10/18 18:12 Sodium Chloride Flush Syringe 10 Ml IV PRN PRN LINE FLUSH
[2018-10-22] MEDS: BROVANA NEBU IH SCH ×2 (09:26→20:44)
[2018-10-22] MEDS: NORVASC PO SCH (10:01)
--- NOTE | 2018-10-22 10:01 | Progress Note ---
Assessment and Plan Acute respiratory failure. Bedside Oximetry 100%, on R/A Sepsis. No fever. On ABX, see ID recommendations. Pulmonary infiltrates/edema/AIDS related CMP? Severe anemia. s/p transfusion. Chest is clear Sinus tachy- CMP,+ S3 today.cardiology following HIV/AIDS- low CD4 at 3 Acute/chronic renal failure AMS Recommendations Complete ABX- Monitor fever, some temp yesterday See Cards f/u regarding arrhythmias rhythm control,Echo/BRIANNE findings Nephrology f/u,HD DVT prophylaxis If persistent infiltrates, check LDH ? Discussed with patient in detail Subjective Date of service: 10/22/18 Principal diagnosis: low plt Interval history: Feels better.Denies cough , expectoration or SOB.No fever Objective Vital Signs - 12hr 10/21/18 10/21/18 10/21/18 22:00 22:27 23:00 Temperature Pulse Rate 117 H 117 H 119 H Pulse Rate [ Bilateral Throughout] Pulse Rate [ From Monitor] Respiratory 28 H 32 H Rate Respiratory Rate [Bilateral Throughout] Blood Pressure 145/86 139/94 139/94 O2 Sat by Pulse 96 100 Oximetry 10/22/18 10/22/18 10/22/18 00:00 01:00 02:00 Temperature 100.8 F H Pulse Rate 116 H 107 H 104 H Pulse Rate [ Bilateral Throughout] Pulse Rate [ 105 H From Monitor] Respiratory 27 H 35 H 35 H Rate Respiratory Rate [Bilateral Throughout] Blood Pressure 130/86 112/65 114/66 O2 Sat by Pulse 100 98 97 Oximetry 10/22/18 10/22/18 10/22/18 03:00 04:00 05:00 Temperature 98.9 F Pulse Rate 106 H 108 H 109 H Pulse Rate [ Bilateral Throughout] Pulse Rate [ 109 H From Monitor] Respiratory 33 H 28 H 36 H Rate Respiratory Rate [Bilateral Throughout] Blood Pressure 119/75 130/78 135/84 O2 Sat by Pulse 99 98 96 Oximetry 10/22/18 10/22/18 10/22/18 06:00 07:41 09:26 Temperature 98.4 F Pulse Rate 104 H Pulse Rate [ 115 H Bilateral Throughout] Pulse Rate [ From Monitor] Respiratory 31 H Rate Respiratory 16 Rate [Bilateral Throughout] Blood Pressure 126/76 O2 Sat by Pulse 97 Oximetry 10/22/18 10/22/18 09:41 09:42 Temperature Pulse Rate Pulse Rate [ 115 H Bilateral Throughout] Pulse Rate [ From Monitor] Respiratory Rate Respiratory 16 Rate [Bilateral Throughout] Blood Pressure O2 Sat by Pulse 100 Oximetry Constitutional: no acute distress, alert Eyes: non-icteric ENT: other (orally intubated, not on sedation, critically ill on vent) Neck: supple, no JVD Effort: mildly labored Ascultation: Bilateral: clear, diminished breath sounds Percussion: Bilateral: not dull Cardiovascular: regular rate and rhythm (sinus tach), other (+ S3 gallop??) Gastrointestinal: normoactive bowel sounds, other (now with suprapubic catheter) Extremities: no cyanosis, no edema Neurologic: pupils equal and round, CN II-XII normal CBC and BMP: 10/22/18 05:51 10/22/18 05:51 ABG, PT/INR, D-dimer: ABG POC ABG pH 7.535 (7.35-7.45) H 10/21/18 09:49 POC ABG pCO2 32.0 (35-45) L 10/21/18 09:49 POC ABG pO2 57 (80-105) L 10/21/18 09:49 POC ABG HCO3 27.1 10/21/18 09:49 POC ABG Total CO2 28 10/21/18 09:49 POC ABG O2 Sat 93 10/21/18 09:49 PT/INR, D-dimer PT 14.5 Sec. (12.2-14.9) 10/15/18 00:59 INR 1.06 (0.87-1.13) 10/15/18 00:59 Abnormal lab findings: Abnormal Labs 10/10/18 10/10/18 10/10/18 15:02 15:02 15:02 WBC RBC 2.38 L Hgb 8.1 L Hct 24.9 L MCV 105 H MCH 34 H MCHC RDW 21.4 H Plt Count 20 L Seg Neuts % (Manual) 84.0 H Lymphocytes % (Manual) 8.0 L Monocytes % (Manual) Eosinophils % (Manual) Basophils % (Manual) Nucleated RBC % Seg Neutrophils # Man 7.8 H Abs Lymphs (Manual) Lymphocytes # (Manual) 0.7 L Monocytes # (Manual) Eosinophils # (Manual) Basophils # (Manual) PT 16.2 H INR 1.22 H POC ABG pH POC ABG pCO2 POC ABG pO2 Sodium 136 L Potassium Chloride 88.2 L Carbon Dioxide 8 L* BUN 70 H Creatinine 5.6 H Glucose 331 H POC Glucose Lactic Acid Uric Acid Calcium Phosphorus Magnesium TIBC Ferritin Total Bilirubin Direct Bilirubin AST ALT Alkaline Phosphatase Lactate Dehydrogenase Troponin T 0.298 H* NT-Pro-B Natriuret Pep Total Protein Albumin Triglycerides 329 H Cholesterol 234 H LDL Cholesterol Direct 139 H Vitamin B12 Urine Creatinine Urine Total Protein Lymph Enumerat CD4/CD8 Absolute CD3 Count % CD4 Cells Absolute CD4 Count % CD8 Cells Absolute CD19 Count T.pallidum Ab (FTA-ABS) HIV-1 RNA PCR copies/ml HIV-1 RNA (PCR) log Crossmatch 10/10/18 10/10/18 10/10/18 15:05 15:29 15:42 WBC RBC Hgb Hct MCV MCH MCHC RDW Plt Count Seg Neuts % (Manual) Lymphocytes % (Manual) Monocytes % (Manual) Eosinophils % (Manual) Basophils % (Manual) Nucleated RBC % Seg Neutrophils # Man Abs Lymphs (Manual) Lymphocytes # (Manual) Monocytes # (Manual) Eosinophils # (Manual) Basophils # (Manual) PT INR POC ABG pH POC ABG pCO2 POC ABG pO2 Sodium Potassium Chloride Carbon Dioxide BUN Creatinine Glucose POC Glucose 274 H Lactic Acid 17.90 H* Uric Acid Calcium Phosphorus Magnesium TIBC Ferritin Total Bilirubin Direct Bilirubin AST ALT Alkaline Phosphatase Lactate Dehydrogenase Troponin T NT-Pro-B Natriuret Pep Total Protein Albumin Triglycerides Cholesterol LDL Cholesterol Direct Vitamin B12 Urine Creatinine Urine Total Protein Lymph Enumerat CD4/CD8 Absolute CD3 Count % CD4 Cells Absolute CD4 Count % CD8 Cells Absolute CD19 Count T.pallidum Ab (FTA-ABS) HIV-1 RNA PCR copies/ml HIV-1 RNA (PCR) log Crossmatch See Detail 10/10/18 10/10/18 10/10/18 15:42 16:22 16:54 WBC RBC Hgb Hct MCV MCH MCHC RDW Plt Count Seg Neuts % (Manual) Lymphocytes % (Manual) Monocytes % (Manual) Eosinophils % (Manual) Basophils % (Manual) Nucleated RBC % Seg Neutrophils # Man Abs Lymphs (Manual) Lymphocytes # (Manual) Monocytes # (Manual) Eosinophils # (Manual) Basophils # (Manual) PT INR POC ABG pH POC ABG pCO2 9.0 L POC ABG pO2 140 H Sodium Potassium Chloride Carbon Dioxide BUN Creatinine Glucose POC Glucose Lactic Acid Uric Acid Calcium Phosphorus Magnesium TIBC Ferritin Total Bilirubin 1.50 H Direct Bilirubin 0.4 H AST 105 H ALT Alkaline Phosphatase Lactate Dehydrogenase 2342 H Troponin T NT-Pro-B Natriuret Pep 89103 H Total Protein 9.2 H Albumin Triglycerides Cholesterol LDL Cholesterol Direct Vitamin B12 Urine Creatinine Urine Total Protein Lymph Enumerat CD4/CD8 Absolute CD3 Count % CD4 Cells Absolute CD4 Count % CD8 Cells Absolute CD19 Count T.pallidum Ab (FTA-ABS) HIV-1 RNA PCR copies/ml HIV-1 RNA (PCR) log Crossmatch 10/10/18 10/10/18 10/10/18 17:08 18:07 18:24 WBC RBC Hgb Hct MCV MCH MCHC RDW Plt Count Seg Neuts % (Manual) Lymphocytes % (Manual) Monocytes % (Manual) Eosinophils % (Manual) Basophils % (Manual) Nucleated RBC % Seg Neutrophils # Man Abs Lymphs (Manual) Lymphocytes # (Manual) Monocytes # (Manual) Eosinophils # (Manual) Basophils # (Manual) PT INR POC ABG pH 7.172 L POC ABG pCO2 POC ABG pO2 533 H Sodium Potassium Chloride Carbon Dioxide BUN Creatinine Glucose POC Glucose Lactic Acid 14.80 H* Uric Acid Calcium Phosphorus Magnesium TIBC Ferritin Total Bilirubin Direct Bilirubin AST ALT Alkaline Phosphatase Lactate Dehydrogenase Troponin T 0.272 H* NT-Pro-B Natriuret Pep Total Protein Albumin Triglycerides Cholesterol LDL Cholesterol Direct Vitamin B12 Urine Creatinine Urine Total Protein Lymph Enumerat CD4/CD8 Absolute CD3 Count % CD4 Cells Absolute CD4 Count % CD8 Cells Absolute CD19 Count T.pallidum Ab (FTA-ABS) HIV-1 RNA PCR copies/ml HIV-1 RNA (PCR) log Crossmatch 10/10/18 10/10/18 10/10/18 19:58 20:54 20:54 WBC RBC Hgb Hct MCV MCH MCHC RDW Plt Count Seg Neuts % (Manual) Lymphocytes % (Manual) Monocytes % (Manual) Eosinophils % (Manual) Basophils % (Manual) Nucleated RBC % Seg Neutrophils # Man Abs Lymphs (Manual) Lymphocytes # (Manual) Monocytes # (Manual) Eosinophils # (Manual) Basophils # (Manual) PT INR POC ABG pH POC ABG pCO2 POC ABG pO2 Sodium Potassium Chloride Carbon Dioxide BUN Creatinine Glucose POC Glucose Lactic Acid 11.50 H* 2.90 H* 2.90 H* Uric Acid Calcium Phosphorus Magnesium TIBC Ferritin Total Bilirubin Direct Bilirubin AST ALT Alkaline Phosphatase Lactate Dehydrogenase Troponin T NT-Pro-B Natriuret Pep Total Protein Albumin Triglycerides Cholesterol LDL Cholesterol Direct Vitamin B12 Urine Creatinine Urine Total Protein Lymph Enumerat CD4/CD8 Absolute CD3 Count % CD4 Cells Absolute CD4 Count % CD8 Cells Absolute CD19 Count T.pallidum Ab (FTA-ABS) HIV-1 RNA PCR copies/ml HIV-1 RNA (PCR) log Crossmatch 10/10/18 10/10/18 10/11/18 22:43 23:55 02:44 WBC RBC Hgb Hct MCV MCH MCHC RDW Plt Count Seg Neuts % (Manual) Lymphocytes % (Manual) Monocytes % (Manual) Eosinophils % (Manual) Basophils % (Manual) Nucleated RBC % Seg Neutrophils # Man Abs Lymphs (Manual) Lymphocytes # (Manual) Monocytes # (Manual) Eosinophils # (Manual) Basophils # (Manual) PT INR POC ABG pH POC ABG pCO2 25.9 L POC ABG pO2 192 H Sodium Potassium Chloride Carbon Dioxide BUN Creatinine Glucose POC Glucose Lactic Acid 4.60 H* 5.40 H* Uric Acid Calcium Phosphorus Magnesium TIBC Ferritin Total Bilirubin Direct Bilirubin AST ALT Alkaline Phosphatase Lactate Dehydrogenase Troponin T NT-Pro-B Natriuret Pep Total Protein Albumin Triglycerides Cholesterol LDL Cholesterol Direct Vitamin B12 Urine Creatinine Urine Total Protein Lymph Enumerat CD4/CD8 Absolute CD3 Count % CD4 Cells Absolute CD4 Count % CD8 Cells Absolute CD19 Count T.pallidum Ab (FTA-ABS) HIV-1 RNA PCR copies/ml HIV-1 RNA (PCR) log Crossmatch 10/11/18 10/11/18 10/11/18 02:55 02:55 03:34 WBC RBC 2.35 L Hgb 7.7 L Hct 22.9 L MCV 98 H MCH 33 H MCHC RDW 19.9 H Plt Count 23 L Seg Neuts % (Manual) 75.0 H Lymphocytes % (Manual) 11.0 L Monocytes % (Manual) Eosinophils % (Manual) Basophils % (Manual) Nucleated RBC % Seg Neutrophils # Man Abs Lymphs (Manual) Lymphocytes # (Manual) 1.0 L Monocytes # (Manual) Eosinophils # (Manual) Basophils # (Manual) PT INR POC ABG pH POC ABG pCO2 POC ABG pO2 Sodium Potassium 5.3 H D Chloride Carbon Dioxide 14 L BUN 74 H Creatinine 5.4 H Glucose 126 H POC Glucose Lactic Acid 5.30 H* Uric Acid Calcium 7.8 L D Phosphorus Magnesium TIBC Ferritin Total Bilirubin 1.90 H Direct Bilirubin AST 306 H ALT 89 H Alkaline Phosphatase 246 H Lactate Dehydrogenase Troponin T NT-Pro-B Natriuret Pep Total Protein Albumin 3.4 L Triglycerides Cholesterol LDL Cholesterol Direct Vitamin B12 Urine Creatinine Urine Total Protein Lymph Enumerat CD4/CD8 Absolute CD3 Count % CD4 Cells Absolute CD4 Count % CD8 Cells Absolute CD19 Count T.pallidum Ab (FTA-ABS) HIV-1 RNA PCR copies/ml HIV-1 RNA (PCR) log Crossmatch 10/11/18 10/11/18 10/11/18 03:34 05:47 05:48 WBC RBC Hgb Hct MCV MCH MCHC RDW Plt Count Seg Neuts % (Manual) Lymphocytes % (Manual) Monocytes % (Manual) Eosinophils % (Manual) Basophils % (Manual) Nucleated RBC % Seg Neutrophils # Man Abs Lymphs (Manual) Lymphocytes # (Manual) Monocytes # (Manual) Eosinophils # (Manual) Basophils # (Manual) PT INR POC ABG pH 7.491 H POC ABG pCO2 24.9 L POC ABG pO2 166 H Sodium Potassium 5.2 H Chloride Carbon Dioxide 16 L BUN 80 H Creatinine 5.5 H Glucose 63 L POC Glucose Lactic Acid 3.80 H* Uric Acid Calcium 7.9 L Phosphorus Magnesium TIBC Ferritin Total Bilirubin Direct Bilirubin AST ALT Alkaline Phosphatase Lactate Dehydrogenase Troponin T NT-Pro-B Natriuret Pep Total Protein Albumin Triglycerides Cholesterol LDL Cholesterol Direct Vitamin B12 Urine Creatinine Urine Total Protein Lymph Enumerat CD4/CD8 Absolute CD3 Count % CD4 Cells Absolute CD4 Count % CD8 Cells Absolute CD19 Count T.pallidum Ab (FTA-ABS) HIV-1 RNA PCR copies/ml HIV-1 RNA (PCR) log Crossmatch 10/11/18 10/11/18 10/11/18 09:56 17:34 17:34 WBC RBC Hgb Hct MCV MCH MCHC RDW Plt Count Seg Neuts % (Manual) Lymphocytes % (Manual) Monocytes % (Manual) Eosinophils % (Manual) Basophils % (Manual) Nucleated RBC % Seg Neutrophils # Man Abs Lymphs (Manual) Lymphocytes # (Manual) Monocytes # (Manual) Eosinophils # (Manual) Basophils # (Manual) PT INR POC ABG pH POC ABG pCO2 POC ABG pO2 Sodium Potassium 3.4 L D Chloride Carbon Dioxide 17 L BUN 97 H Creatinine 7.3 H Glucose 135 H POC Glucose Lactic Acid 2.60 H* 2.30 H* Uric Acid Calcium 7.9 L Phosphorus 5.80 H Magnesium 2.70 H TIBC Ferritin Total Bilirubin Direct Bilirubin AST ALT Alkaline Phosphatase Lactate Dehydrogenase Troponin T NT-Pro-B Natriuret Pep Total Protein Albumin Triglycerides Cholesterol LDL Cholesterol Direct Vitamin B12 Urine Creatinine Urine Total Protein Lymph Enumerat CD4/CD8 Absolute CD3 Count % CD4 Cells Absolute CD4 Count % CD8 Cells Absolute CD19 Count T.pallidum Ab (FTA-ABS) HIV-1 RNA PCR copies/ml HIV-1 RNA (PCR) log Crossmatch 10/11/18 10/11/18 10/11/18 17:35 17:36 17:36 WBC RBC Hgb Hct MCV MCH MCHC RDW Plt Count Seg Neuts % (Manual) Lymphocytes % (Manual) Monocytes % (Manual) Eosinophils % (Manual) Basophils % (Manual) Nucleated RBC % Seg Neutrophils # Man Abs Lymphs (Manual) 267 L Lymphocytes # (Manual) Monocytes # (Manual) Eosinophils # (Manual) Basophils # (Manual) PT INR POC ABG pH POC ABG pCO2 POC ABG pO2 Sodium Potassium Chloride Carbon Dioxide BUN Creatinine Glucose POC Glucose Lactic Acid Uric Acid 13.4 H Calcium Phosphorus Magnesium TIBC 236 L Ferritin 10153.0 H Total Bilirubin Direct Bilirubin AST ALT Alkaline Phosphatase Lactate Dehydrogenase Troponin T NT-Pro-B Natriuret Pep Total Protein Albumin Triglycerides Cholesterol LDL Cholesterol Direct Vitamin B12 Urine Creatinine Urine Total Protein Lymph Enumerat CD4/CD8 0.01 L Absolute CD3 Count 226 L % CD4 Cells 1 L Absolute CD4 Count 3 L % CD8 Cells 82 H Absolute CD19 Count 16 L T.pallidum Ab (FTA-ABS) HIV-1 RNA PCR copies/ml HIV-1 RNA (PCR) log Crossmatch 10/11/18 10/11/18 10/11/18 17:36 19:21 20:08 WBC RBC Hgb Hct MCV MCH MCHC RDW Plt Count Seg Neuts % (Manual) Lymphocytes % (Manual) Monocytes % (Manual) Eosinophils % (Manual) Basophils % (Manual) Nucleated RBC % Seg Neutrophils # Man Abs Lymphs (Manual) Lymphocytes # (Manual) Monocytes # (Manual) Eosinophils # (Manual) Basophils # (Manual) PT INR POC ABG pH POC ABG pCO2 POC ABG pO2 Sodium Potassium Chloride Carbon Dioxide 16 L BUN 99 H Creatinine 8.1 H Glucose 147 H POC Glucose Lactic Acid 2.60 H* Uric Acid Calcium 7.7 L Phosphorus Magnesium 2.60 H TIBC Ferritin Total Bilirubin Direct Bilirubin AST ALT Alkaline Phosphatase Lactate Dehydrogenase Troponin T NT-Pro-B Natriuret Pep Total Protein Albumin Triglycerides Cholesterol LDL Cholesterol Direct Vitamin B12 Urine Creatinine Urine Total Protein Lymph Enumerat CD4/CD8 Absolute CD3 Count % CD4 Cells Absolute CD4 Count % CD8 Cells Absolute CD19 Count T.pallidum Ab (FTA-ABS) HIV-1 RNA PCR copies/ml 712706 H HIV-1 RNA (PCR) log 5.51 H Crossmatch 10/11/18 10/11/18 10/12/18 21:32 23:01 04:29 WBC RBC Hgb Hct MCV MCH MCHC RDW Plt Count Seg Neuts % (Manual) Lymphocytes % (Manual) Monocytes % (Manual) Eosinophils % (Manual) Basophils % (Manual) Nucleated RBC % Seg Neutrophils # Man Abs Lymphs (Manual) Lymphocytes # (Manual) Monocytes # (Manual) Eosinophils # (Manual) Basophils # (Manual) PT INR POC ABG pH 7.493 H POC ABG pCO2 23.1 L POC ABG pO2 176 H Sodium Potassium Chloride Carbon Dioxide BUN Creatinine Glucose POC Glucose Lactic Acid 2.60 H* 3.20 H* Uric Acid Calcium Phosphorus Magnesium TIBC Ferritin Total Bilirubin Direct Bilirubin AST ALT Alkaline Phosphatase Lactate Dehydrogenase Troponin T NT-Pro-B Natriuret Pep Total Protein Albumin Triglycerides Cholesterol LDL Cholesterol Direct Vitamin B12 Urine Creatinine Urine Total Protein Lymph Enumerat CD4/CD8 Absolute CD3 Count % CD4 Cells Absolute CD4 Count % CD8 Cells Absolute CD19 Count T.pallidum Ab (FTA-ABS) HIV-1 RNA PCR copies/ml HIV-1 RNA (PCR) log Crossmatch 10/12/18 10/12/18 10/12/18 04:57 04:57 04:57 WBC 15.0 H RBC 1.75 L Hgb 5.6 L* Hct 16.7 L* D MCV 95 H MCH MCHC RDW 20.7 H Plt Count 49 L D Seg Neuts % (Manual) 90.0 H Lymphocytes % (Manual) 4.0 L Monocytes % (Manual) Eosinophils % (Manual) Basophils % (Manual) Nucleated RBC % 12.0 H Seg Neutrophils # Man 12.3 H Abs Lymphs (Manual) Lymphocytes # (Manual) 0.5 L Monocytes # (Manual) Eosinophils # (Manual) Basophils # (Manual) PT 18.0 H INR 1.39 H POC ABG pH POC ABG pCO2 POC ABG pO2 Sodium Potassium 3.0 L D Chloride Carbon Dioxide 15 L BUN 102 H Creatinine 8.8 H Glucose 110 H POC Glucose Lactic Acid Uric Acid Calcium 7.6 L Phosphorus 5.10 H Magnesium 2.50 H TIBC Ferritin Total Bilirubin Direct Bilirubin AST 667 H ALT 298 H Alkaline Phosphatase 154 H Lactate Dehydrogenase Troponin T NT-Pro-B Natriuret Pep Total Protein Albumin 2.8 L Triglycerides Cholesterol LDL Cholesterol Direct Vitamin B12 Urine Creatinine Urine Total Protein Lymph Enumerat CD4/CD8 Absolute CD3 Count % CD4 Cells Absolute CD4 Count % CD8 Cells Absolute CD19 Count T.pallidum Ab (FTA-ABS) HIV-1 RNA PCR copies/ml HIV-1 RNA (PCR) log Crossmatch 10/12/18 10/12/18 10/12/18 06:43 14:05 Unknown WBC 14.0 H RBC 2.76 L Hgb 5.8 L* 8.7 L Hct 17.2 L* 25.1 L D MCV MCH MCHC 35 H RDW 19.0 H Plt Count 53 L Seg Neuts % (Manual) Lymphocytes % (Manual) 5.0 L Monocytes % (Manual) Eosinophils % (Manual) Basophils % (Manual) Nucleated RBC % 40.0 H Seg Neutrophils # Man 9.0 H Abs Lymphs (Manual) Lymphocytes # (Manual) 0.7 L Monocytes # (Manual) Eosinophils # (Manual) Basophils # (Manual) PT INR POC ABG pH POC ABG pCO2 POC ABG pO2 Sodium Potassium Chloride Carbon Dioxide BUN Creatinine Glucose POC Glucose Lactic Acid Uric Acid Calcium Phosphorus Magnesium TIBC Ferritin Total Bilirubin Direct Bilirubin AST ALT Alkaline Phosphatase Lactate Dehydrogenase Troponin T NT-Pro-B Natriuret Pep Total Protein Albumin Triglycerides Cholesterol LDL Cholesterol Direct Vitamin B12 Urine Creatinine Urine Total Protein Lymph Enumerat CD4/CD8 Absolute CD3 Count % CD4 Cells Absolute CD4 Count % CD8 Cells Absolute CD19 Count T.pallidum Ab (FTA-ABS) Reactive H HIV-1 RNA PCR copies/ml HIV-1 RNA (PCR) log Crossmatch 10/13/18 10/13/18 10/13/18 03:40 03:40 03:40 WBC 11.5 H RBC 2.58 L Hgb 8.2 L Hct 22.9 L MCV MCH MCHC 36 H RDW 19.5 H Plt Count 123 L D Seg Neuts % (Manual) 93.0 H Lymphocytes % (Manual) 0 L Monocytes % (Manual) Eosinophils % (Manual) Basophils % (Manual) Nucleated RBC % 44.0 H Seg Neutrophils # Man 10.7 H Abs Lymphs (Manual) Lymphocytes # (Manual) 0.0 L Monocytes # (Manual) Eosinophils # (Manual) Basophils # (Manual) PT 15.6 H INR 1.17 H POC ABG pH POC ABG pCO2 POC ABG pO2 Sodium Potassium 3.3 L Chloride Carbon Dioxide 21 L BUN 51 H Creatinine 5.7 H Glucose 140 H POC Glucose Lactic Acid Uric Acid Calcium 7.9 L Phosphorus Magnesium TIBC Ferritin Total Bilirubin Direct Bilirubin AST 367 H ALT 238 H Alkaline Phosphatase 134 H Lactate Dehydrogenase Troponin T NT-Pro-B Natriuret Pep Total Protein 6.2 L Albumin 2.5 L Triglycerides Cholesterol LDL Cholesterol Direct Vitamin B12 Urine Creatinine Urine Total Protein Lymph Enumerat CD4/CD8 Absolute CD3 Count % CD4 Cells Absolute CD4 Count % CD8 Cells Absolute CD19 Count T.pallidum Ab (FTA-ABS) HIV-1 RNA PCR copies/ml HIV-1 RNA (PCR) log Crossmatch 10/13/18 10/13/18 10/14/18 04:10 04:43 04:34 WBC RBC 2.47 L Hgb 7.7 L Hct 21.9 L MCV MCH MCHC 35 H RDW 21.2 H Plt Count 40 L Seg Neuts % (Manual) Lymphocytes % (Manual) Monocytes % (Manual) Eosinophils % (Manual) Basophils % (Manual) Nucleated RBC % Seg Neutrophils # Man Abs Lymphs (Manual) Lymphocytes # (Manual) Monocytes # (Manual) Eosinophils # (Manual) Basophils # (Manual) PT INR POC ABG pH 7.522 H POC ABG pCO2 29.1 L POC ABG pO2 132 H Sodium Potassium Chloride Carbon Dioxide BUN Creatinine Glucose POC Glucose Lactic Acid Uric Acid Calcium Phosphorus Magnesium TIBC Ferritin Total Bilirubin Direct Bilirubin AST ALT Alkaline Phosphatase Lactate Dehydrogenase Troponin T NT-Pro-B Natriuret Pep Total Protein Albumin Triglycerides Cholesterol LDL Cholesterol Direct Vitamin B12 Urine Creatinine 30.8 H Urine Total Protein 75 H Lymph Enumerat CD4/CD8 Absolute CD3 Count % CD4 Cells Absolute CD4 Count % CD8 Cells Absolute CD19 Count T.pallidum Ab (FTA-ABS) HIV-1 RNA PCR copies/ml HIV-1 RNA (PCR) log Crossmatch 10/14/18 10/14/18 10/15/18 04:34 08:51 03:14 WBC RBC 2.36 L Hgb 7.5 L Hct 21.1 L MCV MCH MCHC 36 H RDW 21.9 H Plt Count 31 L Seg Neuts % (Manual) Lymphocytes % (Manual) 8.0 L Monocytes % (Manual) 9.0 H Eosinophils % (Manual) Basophils % (Manual) 2.0 H Nucleated RBC % 129.0 H Seg Neutrophils # Man Abs Lymphs (Manual) Lymphocytes # (Manual) 0.7 L Monocytes # (Manual) Eosinophils # (Manual) Basophils # (Manual) 0.2 H PT INR POC ABG pH POC ABG pCO2 POC ABG pO2 Sodium Potassium Chloride Carbon Dioxide BUN 35 H Creatinine 5.2 H Glucose 144 H POC Glucose Lactic Acid Uric Acid Calcium Phosphorus Magnesium TIBC Ferritin Total Bilirubin Direct Bilirubin AST ALT Alkaline Phosphatase Lactate Dehydrogenase Troponin T NT-Pro-B Natriuret Pep Total Protein Albumin Triglycerides Cholesterol LDL Cholesterol Direct Vitamin B12 912.3 H Urine Creatinine Urine Total Protein Lymph Enumerat CD4/CD8 Absolute CD3 Count % CD4 Cells Absolute CD4 Count % CD8 Cells Absolute CD19 Count T.pallidum Ab (FTA-ABS) HIV-1 RNA PCR copies/ml HIV-1 RNA (PCR) log Crossmatch 10/15/18 10/15/18 10/16/18 03:14 19:22 04:07 WBC RBC 2.08 L Hgb 6.5 L Hct 18.4 L* MCV MCH MCHC 35 H RDW 22.9 H Plt Count 68 L D Seg Neuts % (Manual) Lymphocytes % (Manual) Monocytes % (Manual) Eosinophils % (Manual) Basophils % (Manual) Nucleated RBC % Seg Neutrophils # Man Abs Lymphs (Manual) Lymphocytes # (Manual) Monocytes # (Manual) Eosinophils # (Manual) Basophils # (Manual) PT INR POC ABG pH 7.552 H POC ABG pCO2 34.8 L POC ABG pO2 195 H Sodium 147 H Potassium Chloride Carbon Dioxide BUN 59 H Creatinine 8.0 H D Glucose 153 H POC Glucose Lactic Acid Uric Acid Calcium 8.3 L Phosphorus Magnesium TIBC Ferritin Total Bilirubin Direct Bilirubin AST 179 H ALT 156 H Alkaline Phosphatase 130 H Lactate Dehydrogenase Troponin T NT-Pro-B Natriuret Pep Total Protein Albumin 2.7 L Triglycerides Cholesterol LDL Cholesterol Direct Vitamin B12 Urine Creatinine Urine Total Protein Lymph Enumerat CD4/CD8 Absolute CD3 Count % CD4 Cells Absolute CD4 Count % CD8 Cells Absolute CD19 Count T.pallidum Ab (FTA-ABS) HIV-1 RNA PCR copies/ml HIV-1 RNA (PCR) log Crossmatch 10/16/18 10/16/18 10/16/18 04:07 04:07 08:31 WBC RBC Hgb Hct MCV MCH MCHC RDW Plt Count Seg Neuts % (Manual) Lymphocytes % (Manual) Monocytes % (Manual) Eosinophils % (Manual) Basophils % (Manual) Nucleated RBC % Seg Neutrophils # Man Abs Lymphs (Manual) Lymphocytes # (Manual) Monocytes # (Manual) Eosinophils # (Manual) Basophils # (Manual) PT INR POC ABG pH POC ABG pCO2 POC ABG pO2 Sodium Potassium Chloride Carbon Dioxide BUN 50 H Creatinine 6.2 H Glucose 142 H POC Glucose Lactic Acid Uric Acid Calcium Phosphorus Magnesium TIBC Ferritin Total Bilirubin Direct Bilirubin AST 136 H 134 H ALT 106 H 107 H Alkaline Phosphatase Lactate Dehydrogenase Troponin T NT-Pro-B Natriuret Pep Total Protein Albumin 2.7 L 2.8 L Triglycerides Cholesterol LDL Cholesterol Direct Vitamin B12 Urine Creatinine Urine Total Protein Lymph Enumerat CD4/CD8 Absolute CD3 Count % CD4 Cells Absolute CD4 Count % CD8 Cells Absolute CD19 Count T.pallidum Ab (FTA-ABS) HIV-1 RNA PCR copies/ml HIV-1 RNA (PCR) log Crossmatch See Detail 10/16/18 10/17/18 10/17/18 11:24 04:20 07:53 WBC RBC 2.86 L Hgb 8.5 L Hct 25.1 L D MCV MCH MCHC RDW 19.0 H Plt Count 63 L Seg Neuts % (Manual) Lymphocytes % (Manual) 3.0 L Monocytes % (Manual) 14.0 H Eosinophils % (Manual) Basophils % (Manual) Nucleated RBC % 45.0 H Seg Neutrophils # Man 9.8 H Abs Lymphs (Manual) Lymphocytes # (Manual) 0.4 L Monocytes # (Manual) 2.0 H Eosinophils # (Manual) Basophils # (Manual) PT INR POC ABG pH POC ABG pCO2 POC ABG pO2 Sodium 146 H Potassium Chloride Carbon Dioxide 19 L BUN 82 H Creatinine 9.1 H Glucose 117 H POC Glucose 144 H Lactic Acid Uric Acid Calcium Phosphorus Magnesium TIBC Ferritin Total Bilirubin Direct Bilirubin AST 127 H ALT 84 H Alkaline Phosphatase Lactate Dehydrogenase Troponin T NT-Pro-B Natriuret Pep Total Protein Albumin 3.0 L Triglycerides Cholesterol LDL Cholesterol Direct Vitamin B12 Urine Creatinine Urine Total Protein Lymph Enumerat CD4/CD8 Absolute CD3 Count % CD4 Cells Absolute CD4 Count % CD8 Cells Absolute CD19 Count T.pallidum Ab (FTA-ABS) HIV-1 RNA PCR copies/ml HIV-1 RNA (PCR) log Crossmatch 10/17/18 10/18/18 10/18/18 07:53 05:03 05:03 WBC RBC Hgb Hct MCV MCH MCHC RDW Plt Count Seg Neuts % (Manual) Lymphocytes % (Manual) Monocytes % (Manual) Eosinophils % (Manual) Basophils % (Manual) Nucleated RBC % Seg Neutrophils # Man Abs Lymphs (Manual) Lymphocytes # (Manual) Monocytes # (Manual) Eosinophils # (Manual) Basophils # (Manual) PT INR POC ABG pH POC ABG pCO2 POC ABG pO2 Sodium 147 H Potassium 5.1 H Chloride Carbon Dioxide 19 L 19 L BUN 89 H 115 H Creatinine 9.5 H 12.0 H Glucose 122 H 210 H POC Glucose Lactic Acid Uric Acid Calcium Phosphorus Magnesium 3.10 H TIBC Ferritin Total Bilirubin Direct Bilirubin AST ALT Alkaline Phosphatase Lactate Dehydrogenase Troponin T NT-Pro-B Natriuret Pep Total Protein Albumin Triglycerides Cholesterol LDL Cholesterol Direct Vitamin B12 Urine Creatinine Urine Total Protein Lymph Enumerat CD4/CD8 Absolute CD3 Count % CD4 Cells Absolute CD4 Count % CD8 Cells Absolute CD19 Count T.pallidum Ab (FTA-ABS) HIV-1 RNA PCR copies/ml HIV-1 RNA (PCR) log Crossmatch 10/18/18 10/19/18 10/19/18 21:12 03:38 03:38 WBC RBC 2.45 L Hgb 7.5 L Hct 21.9 L MCV MCH MCHC RDW 21.3 H Plt Count 60 L Seg Neuts % (Manual) 81.0 H Lymphocytes % (Manual) 8.0 L Monocytes % (Manual) Eosinophils % (Manual) 6.0 H Basophils % (Manual) Nucleated RBC % 104.0 H Seg Neutrophils # Man Abs Lymphs (Manual) Lymphocytes # (Manual) 0.7 L Monocytes # (Manual) Eosinophils # (Manual) 0.5 H Basophils # (Manual) PT INR POC ABG pH POC ABG pCO2 POC ABG pO2 Sodium Potassium Chloride Carbon Dioxide BUN 74 H Creatinine 8.7 H Glucose 134 H POC Glucose 120 H Lactic Acid Uric Acid Calcium 8.1 L Phosphorus Magnesium TIBC Ferritin Total Bilirubin Direct Bilirubin AST ALT Alkaline Phosphatase Lactate Dehydrogenase Troponin T NT-Pro-B Natriuret Pep Total Protein Albumin Triglycerides Cholesterol LDL Cholesterol Direct Vitamin B12 Urine Creatinine Urine Total Protein Lymph Enumerat CD4/CD8 Absolute CD3 Count % CD4 Cells Absolute CD4 Count % CD8 Cells Absolute CD19 Count T.pallidum Ab (FTA-ABS) HIV-1 RNA PCR copies/ml HIV-1 RNA (PCR) log Crossmatch 10/20/18 10/20/18 10/20/18 04:13 13:07 16:01 WBC 12.8 H RBC 2.59 L Hgb 7.9 L Hct 23.7 L MCV MCH MCHC RDW 21.7 H Plt Count 125 L D Seg Neuts % (Manual) Lymphocytes % (Manual) Monocytes % (Manual) Eosinophils % (Manual) Basophils % (Manual) Nucleated RBC % Seg Neutrophils # Man Abs Lymphs (Manual) Lymphocytes # (Manual) Monocytes # (Manual) Eosinophils # (Manual) Basophils # (Manual) PT INR POC ABG pH POC ABG pCO2 POC ABG pO2 Sodium Potassium 5.8 H D Chloride 96.0 L Carbon Dioxide 19 L BUN 97 H Creatinine 10.4 H Glucose 134 H POC Glucose 139 H Lactic Acid Uric Acid Calcium 8.2 L Phosphorus Magnesium TIBC Ferritin Total Bilirubin Direct Bilirubin AST ALT Alkaline Phosphatase Lactate Dehydrogenase Troponin T NT-Pro-B Natriuret Pep Total Protein Albumin Triglycerides Cholesterol LDL Cholesterol Direct Vitamin B12 Urine Creatinine Urine Total Protein Lymph Enumerat CD4/CD8 Absolute CD3 Count % CD4 Cells Absolute CD4 Count % CD8 Cells Absolute CD19 Count T.pallidum Ab (FTA-ABS) HIV-1 RNA PCR copies/ml HIV-1 RNA (PCR) log Crossmatch 10/20/18 10/20/18 10/20/18 16:01 18:35 21:19 WBC RBC Hgb Hct MCV MCH MCHC RDW Plt Count Seg Neuts % (Manual) Lymphocytes % (Manual) Monocytes % (Manual) Eosinophils % (Manual) Basophils % (Manual) Nucleated RBC % Seg Neutrophils # Man Abs Lymphs (Manual) Lymphocytes # (Manual) Monocytes # (Manual) Eosinophils # (Manual) Basophils # (Manual) PT INR POC ABG pH 7.596 H 7.587 H POC ABG pCO2 30.2 L 30.0 L POC ABG pO2 62 L 71 L Sodium Potassium Chloride 96.8 L Carbon Dioxide BUN 28 H Creatinine 3.6 H D Glucose 127 H POC Glucose Lactic Acid Uric Acid Calcium Phosphorus Magnesium TIBC Ferritin Total Bilirubin Direct Bilirubin AST ALT Alkaline Phosphatase Lactate Dehydrogenase Troponin T NT-Pro-B Natriuret Pep Total Protein Albumin Triglycerides Cholesterol LDL Cholesterol Direct Vitamin B12 Urine Creatinine Urine Total Protein Lymph Enumerat CD4/CD8 Absolute CD3 Count % CD4 Cells Absolute CD4 Count % CD8 Cells Absolute CD19 Count T.pallidum Ab (FTA-ABS) HIV-1 RNA PCR copies/ml HIV-1 RNA (PCR) log Crossmatch 10/21/18 10/21/18 10/22/18 05:05 09:49 05:51 WBC RBC Hgb Hct MCV MCH MCHC RDW Plt Count Seg Neuts % (Manual) Lymphocytes % (Manual) Monocytes % (Manual) Eosinophils % (Manual) Basophils % (Manual) Nucleated RBC % Seg Neutrophils # Man Abs Lymphs (Manual) Lymphocytes # (Manual) Monocytes # (Manual) Eosinophils # (Manual) Basophils # (Manual) PT INR POC ABG pH 7.535 H POC ABG pCO2 32.0 L POC ABG pO2 57 L Sodium Potassium Chloride 96.7 L 95.9 L Carbon Dioxide 21 L BUN 44 H 71 H Creatinine 5.8 H D 7.9 H Glucose 140 H 132 H POC Glucose Lactic Acid Uric Acid Calcium 8.2 L 8.2 L Phosphorus Magnesium TIBC Ferritin Total Bilirubin Direct Bilirubin AST ALT Alkaline Phosphatase Lactate Dehydrogenase Troponin T NT-Pro-B Natriuret Pep Total Protein Albumin Triglycerides Cholesterol LDL Cholesterol Direct Vitamin B12 Urine Creatinine Urine Total Protein Lymph Enumerat CD4/CD8 Absolute CD3 Count % CD4 Cells Absolute CD4 Count % CD8 Cells Absolute CD19 Count T.pallidum Ab (FTA-ABS) HIV-1 RNA PCR copies/ml HIV-1 RNA (PCR) log Crossmatch 10/22/18 05:51 WBC RBC 2.51 L Hgb 7.7 L Hct 22.9 L MCV MCH MCHC RDW 22.4 H Plt Count Seg Neuts % (Manual) Lymphocytes % (Manual) Monocytes % (Manual) Eosinophils % (Manual) Basophils % (Manual) Nucleated RBC % Seg Neutrophils # Man Abs Lymphs (Manual) Lymphocytes # (Manual) Monocytes # (Manual) Eosinophils # (Manual) Basophils # (Manual) PT INR POC ABG pH POC ABG pCO2 POC ABG pO2 Sodium Potassium Chloride Carbon Dioxide BUN Creatinine Glucose POC Glucose Lactic Acid Uric Acid Calcium Phosphorus Magnesium TIBC Ferritin Total Bilirubin Direct Bilirubin AST ALT Alkaline Phosphatase Lactate Dehydrogenase Troponin T NT-Pro-B Natriuret Pep Total Protein Albumin Triglycerides Cholesterol LDL Cholesterol Direct Vitamin B12 Urine Creatinine Urine Total Protein Lymph Enumerat CD4/CD8 Absolute CD3 Count % CD4 Cells Absolute CD4 Count % CD8 Cells Absolute CD19 Count T.pallidum Ab (FTA-ABS) HIV-1 RNA PCR copies/ml HIV-1 RNA (PCR) log Crossmatch
[2018-10-22] MEDS: COREG PO SCH ×2 (10:02→22:03)
[2018-10-22] MEDS: THERAGRAN Tab PO SCH (10:02)
[2018-10-22] MEDS: PREVACID SOLUTAB FEEDTUBE SCH ×2 (10:02→22:02)
[2018-10-22] MEDS: SODIUM CHLORIDE FLUSH SYRINGE 10 ML IV SCH ×2 (10:03→22:04)
[2018-10-22] MEDS: ROCEPHIN/NS 2 GM/100 ML 2 GM/100 ML BAG IV SCH (10:03)
[2018-10-22] MEDS: MEPRON PO SCH ×2 (10:04→22:02)
[2018-10-22 10:27] LABS: Anisocytosis 1+; Basophils % (Manual) 0 % (0.0-1.8); Total Cells Counted 100
[2018-10-22 10:28] LABS: Macrocytosis Few; Platelet Count 128 K/mm3 (140-440); Platelet Estimate Consistent w Auto; Schistocytes Few
[2018-10-22] MEDS ORDERED: NACL 0.9% 100 ML IV PRN (10:32)
--- NOTE | 2018-10-22 10:35 | Progress Note ---
Subjective Principal diagnosis: acute kidney injury Interval history: Patient was seen today for follow-up on multiple renal related issues BUN creatinine remains elevated Mild shortness of breath Does have feeding tube Vitals labs intake output medications were reviewed Social history: Reviewed Allergies: Reviewed Family history: Reviewed Physical examination HEENT: Oral mucosa moist no pallor or icterus Neck: Supple no JVD Chest: Clear to auscultation anteriorly CVS: Regular rate and rhythm S1 and S2 heard Abdomen: Soft nontender no suprapubic masses no organomegaly appreciable Extremity: Dry skin less than 1+ peripheral edema Musculoskeletal: No joint effusion noted in knees and ankle Neurological: Alert awake Dermatology: No petechial rashes Psychiatry: No evidence of any agitation and aggression noted Assessment and plan Acute kidney injury in a patient who is 43-year-old and possibly may have un derlying chronic kidney disease currently dialysis dependent due to severity of renal failure. Patient also does have echogenic kidney with history of HIV and poor compliance, His renal prognosis appears to be guarded to poor at this time he will continue to receive renal replacement therapy we'll continue to monitor for any meaningful functional recovery of renal function Will continue with hemodialysis Monday as tolerated, would like to ultrafiltration as long as his heart rate and blood pressure stays stable Metabolic acidosis hyperkalemia: Currently improving Admitted with fever or tachycardia systemic inflammatory response Continue with supportive care for now As of today hemoglobin is 7.7 platelet count 128,000 As of today his potassium is 4.8 BUN 71 creatinine 7.9 Ejection fraction 45%/nonsustained ventricular tachycardia cardiology following Pancytopenia: Slowly improving hematology to follow Severe protein calorie malnutrition patient needs to be in high protein diet We'll continue to follow and make recommendation from renal standpoint Objective - Vital Signs Vital signs: Vital Signs - 12hr 10/21/18 10/22/18 10/22/18 23:00 00:00 01:00 Temperature 100.8 F H Pulse Rate 119 H 116 H 107 H Pulse Rate [ Bilateral Throughout] Pulse Rate [ 105 H From Monitor] Respiratory 32 H 27 H 35 H Rate Respiratory Rate [Bilateral Throughout] Blood Pressure 139/94 130/86 112/65 O2 Sat by Pulse 100 100 98 Oximetry 10/22/18 10/22/18 10/22/18 02:00 03:00 04:00 Temperature 98.9 F Pulse Rate 104 H 106 H 108 H Pulse Rate [ Bilateral Throughout] Pulse Rate [ From Monitor] Respiratory 35 H 33 H 28 H Rate Respiratory Rate [Bilateral Throughout] Blood Pressure 114/66 119/75 130/78 O2 Sat by Pulse 97 99 98 Oximetry 10/22/18 10/22/18 10/22/18 05:00 06:00 07:41 Temperature 98.4 F Pulse Rate 109 H 104 H Pulse Rate [ Bilateral Throughout] Pulse Rate [ 109 H From Monitor] Respiratory 36 H 31 H Rate Respiratory Rate [Bilateral Throughout] Blood Pressure 135/84 126/76 O2 Sat by Pulse 96 97 Oximetry 10/22/18 10/22/18 10/22/18 09:26 09:41 09:42 Temperature Pulse Rate Pulse Rate [ 115 H 115 H Bilateral Throughout] Pulse Rate [ From Monitor] Respiratory Rate Respiratory 16 16 Rate [Bilateral Throughout] Blood Pressure O2 Sat by Pulse 100 Oximetry 10/22/18 10/22/18 10:01 10:02 Temperature Pulse Rate 117 H 113 H Pulse Rate [ Bilateral Throughout] Pulse Rate [ From Monitor] Respiratory Rate Respiratory Rate [Bilateral Throughout] Blood Pressure 131/81 131/81 O2 Sat by Pulse Oximetry - Lab 10/22/18 05:51 10/22/18 05:51 Most recent lab results Calcium 8.2 mg/dL (8.4-10.2) L 10/22/18 05:51 Phosphorus 5.10 mg/dL (2.5-4.5) H 10/12/18 04:57 Magnesium 3.10 mg/dL (1.7-2.3) H 10/18/18 05:03 Urine Creatinine 30.8 mg/dL (0.1-20.0) H 10/13/18 04:43 Urine Sodium 106 mmol/L 10/13/18 04:43 Urine Total Protein 75 mg/dL (5-11.8) H 10/13/18 04:43 Medications & Allergies - Medications Allergies/Adverse Reactions: Allergies Sulfa (Sulfonamide Antibiotics) Allergy (Verified 10/10/18 16:54) Unknown Home Medications: Home Medications Medication Instructions Recorded Confirmed Last Taken Type Acetaminophen [Tylenol] 1,000 mg PO Q6HR 10/10/18 10/10/18 Unknown History Amlodipine Besylate [Norvasc] 10 mg PO QDAY 10/10/18 10/10/18 Unknown History Aspirin [Adult Aspirin] 81 mg PO DAILY 10/10/18 10/10/18 Unknown History Atorvastatin [Lipitor Tab] 80 mg PO DAILY 10/10/18 10/10/18 Unknown History Losartan [Cozaar] 100 mg PO QDAY 10/10/18 10/10/18 Unknown History Multivitamin [Multiple Vitamins] 1 each PO DAILY 10/10/18 10/10/18 Unknown History hydroCHLOROthiazide [HCTZ] 25 mg PO QDAY 10/10/18 10/10/18 Unknown History Active Medications: Generic Name Dose Route Start Last Admin Trade Name Freq PRN Reason Stop Dose Admin Acetaminophen 500 mg 10/16/18 10:02 10/21/18 23:30 Tylenol PO 500 mg Q6H PRN Administration Fever >101 Albuterol 2.5 mg 10/10/18 18:12 Proventil IH Q3HRT PRN Shortness Of Breath Albuterol/Ipratropium 1 ampul 10/20/18 14:30 10/22/18 09:26 Duoneb *Not For Prn Use* IH 1 ampul Q6HRT RUBI Administration Amlodipine Besylate 10 mg 10/11/18 10:00 10/22/18 10:01 Norvasc PO 10 mg QDAY RUBI Administration Lipase/Protease/Amylase 1 each 10/11/18 12:58 Pancreazkarlos Reed 10,500 Unit FEEDTUBE PRN PRN For Clogged Feeding Tube Arformoterol Tartrate 15 mcg 10/20/18 11:45 10/22/18 09:26 Brorussell Menendez IH Not Given Q12HRT RUBI Atovaquone 750 mg 10/18/18 10:00 10/22/18 10:04 Mepron PO 750 mg BID RUBI Administration Carvedilol 12.5 mg 10/21/18 09:40 10/22/18 10:02 Coreg PO 12.5 mg BID RUBI Administration Haloperidol Lactate 5 mg 10/13/18 19:45 10/20/18 21:08 Haldol IV 5 mg Q6H PRN Administration Agitation Hydralazine HCl 10 mg 10/12/18 15:50 10/18/18 06:36 Apresoline IV 10 mg Q4HR PRN Administration SBP>175 or DBP>115 Hydrophilic Ointment 1 applic 10/10/18 17:53 Vaseline Lip Therapy TP Q2HR PRN Dry Lips Ganciclovir Sodium 80 mg/ 250 mls @ 100 mls/hr 10/15/18 20:00 10/19/18 22:35 Sodium Chloride IV 100 mls/hr MoWeFr RUBI Administration Sodium Chloride 100 mls @ 999 mls/hr 10/17/18 17:23 Nacl 0.9% IV CHON PRN Hypotension Sodium Chloride 100 mls @ 999 mls/hr 10/20/18 09:54 Nacl 0.9% IV CHNO PRN Hypotension Ceftriaxone Sodium 2 gm in 100 mls @ 200 mls/hr 10/21/18 15:00 10/22/18 10:03 Rocephin/Ns 2 Gm/100 Ml IV 200 mls/hr Q24HR RUBI Administration Protocol Sodium Chloride 100 mls @ 999 mls/hr 10/22/18 10:32 Nacl 0.9% IV CHON PRN Hypotension Lansoprazole 30 mg 10/15/18 10:00 10/22/18 10:02 Prevacid Solutab FEEDTUBE 30 mg BID RUBI Administration Lorazepam 1 mg 10/13/18 19:48 10/21/18 04:09 Ativan IV 1 mg Q4H PRN Administration agitation Metoprolol Tartrate 5 mg 10/18/18 14:05 Lopressor IV Q6HR PRN Tachyarrhythmias Multi-Ingred Cream/Lotion/Oil/Oint 1 applic 10/10/18 17:53 Artificial Tears Ophth Oint OU Q4HR PRN Dry Eye(s) Multivitamins 1 each 10/11/18 10:00 10/22/18 10:02 Theragran Tab PO 1 each DAILY RUBI Administration Simple Syrup 15 ml 10/11/18 12:58 Simple Syrup FEEDTUBE PRN PRN Hypoglycemia Simple Syrup 30 ml 10/11/18 12:58 Simple Syrup FEEDTUBE PRN PRN Hypoglycemia Sodium Bicarbonate 325 mg 10/11/18 12:58 Sodium Bicarbonate FEEDTUBE PRN PRN For Clogged Feeding Tube Sodium Chloride 10 ml 10/10/18 22:00 10/22/18 10:03 Sodium Chloride Flush Syringe 10 Ml IV 10 ml BID RUBI Administration Sodium Chloride 10 ml 10/10/18 18:12 Sodium Chloride Flush Syringe 10 Ml IV PRN PRN LINE FLUSH
--- NOTE | 2018-10-22 10:48 | Progress Note ---
Assessment and Plan Cultures: Blood culture 10/10/2018 no growth. Sputum culture 10/10/2018 Ana Paula albicans. Crypto Ag 10/10/2018 neg. Urine culture 10/13/2018 no growth. Blood culture 10/17/2018 no growth. Blood culture 10/20/2018: in progress Assessment: 43 y/o male with history of HIV (unknown CD4/VL/ART intake), HTN, CVA 6 months ago at [place], Nicotine Dependence, Malnutrition; admitted on 10/10/2018 due to AMS (confusion/lethargy) and slurred speech for 24 h: 1) Severe SIRS versus sepsis: Fevers continuing, no leukocytosis, Unclear etiology ? aspiration pneumonia +/- opportunistic brain infection - CXR neg - Unable to obtain UA - patient was anuric - BNP 70K - Troponin 0.2 - LDH 2242 2) Acute hypoxemic respiratory failure: for airway protection +/- ? pneumonia. Repeat CXR no consolidations. Ana Paula in tracha sp likely a colonizer. Extubated 10/15 3) Acute encephalopathy: not better; multifactorial ?from hypertensive urgency +/- brain opportunistic infection. DDx: Neurosyphilis, VZV/CMV encephalitis versus [employer] lymphoma versus less likely PML - CT head showed bilateral chronic ischemic changes. - Brain MRI showed areas of edema in the basal ganglia and thalami bilaterally, within the jamari and in the cerebral hemispheres bilaterally in the subcortical and deep white matter and in portions of the cortex, areas of encephalomalacia in the basal ganglia bilaterally with evidence of previous hemorrhage or mineral deposition and numerous small foci of acute infarct in the basal ganglia bilaterally, subinsular regions bilaterally and medial temporal lobes bilaterally and possibly in the occipital cortex bilaterally. - RPR reactive 1:32 / FTA ABs reactive - Brain MRA showed possible dissection versus artifact at the basilar artery. Luminal irregularity at the anterior, middle, and posterior cerebral arteries as well as the carotid siphons may represent mild to moderate atherosclerotic disease. More notable narrowing at the distal right A1 segment. Differential diagnosis includes motion artifact and vasculitis. Vertebral arteries are not clearly visualized. - CSF wbc 4, rbc 113, Seg 8%, Lymph 76%, protein 55, glucose 73 which is not c/w meningitis - Toxoplasma IgG negative - On ganciclovir, penicillin and high dosed mepron - CMV DNA VL=1,370, 3.1 log on ganciclovir - likely reactivation - CSF VDRL non reactive, Toxoplasma PCR: negative 4) Anemia/thrombocytopenia ? unclear etiology, worsening ?HIV myelosuppression ?disseminated MAC/CMV ?ganciclovir 5) Acute on CKD or SHRUTHI ? unclear etiology: r/o rhabdo ?ischemia. Started on HD 6) Elevated lactate ? Lactate 17. 7) DM: uncontrolled. 8) Elevated LFTs ? 9) HIV/AIDS: VL 320,000 / CD4=3 on 10/11/2018 Recommendations: - continue ganciclovir to cover empirically VZV/CMV D9 - continue Mepron (atovaquone) 750 mg BID - f/u repeat blood culture -continue Ceftriaxone 2gms IV q 24, D2 -Continue Vancomycin, per PK dosing, D2 d/w Dr. Kallie Ruelas, [facility] M: [phone] O:[phone] Subjective Date of service: 10/22/18 Principal diagnosis: acute kidney injury Interval history: Awake. Low grade fevers continue. No new issues. Objective - Exam Narrative Exam: General appearance: on NC O2 in NAD, drowsy but can be awakened. No acute distress observed Eyes: anicteric sclerae, moist conjunctivae; no lid-lag; PERRLA HENT: Atraumatic; oropharynx limited Neck: Trachea midline; supple, no thyromegaly or lymphadenopathy Lungs: CTA, with normal respiratory effort and no intercostal retractions CV: tachycardic Abdomen: Soft, non-tender;+SP cath Extremities: No peripheral edema or extremity lymphadenopathy Skin: Normal temperature, turgor and texture; no rash, ulcers or subcutaneous nodules Psych: affect: flat Neuro: non-focal, occasionally follows commands, , +garbled speech - Constitutional Vitals: Vital Signs Temp Pulse Resp BP Pulse Ox 98.4 F 113 H 16 131/81 100 10/22/18 07:41 10/22/18 10:02 10/22/18 09:41 10/22/18 10:02 10/22/18 09:42 Temperature -Last 24 Hours Temperature 98.4 F Temperature 98.9 F Temperature 100.8 F Temperature 98.9 F Temperature 99.4 F Temperature 97.3 F - Labs CBC & Chem 7: 10/22/18 05:51 10/22/18 05:51 Labs: Abnormal lab results 10/22/18 10/22/18 Range/Units 05:51 05:51 RBC 2.51 L (3.65-5.03) M/mm3 Hgb 7.7 L (11.8-15.2) gm/dl Hct 22.9 L (35.5-45.6) % RDW 22.4 H (13.2-15.2) % Plt Count 128 L (140-440) K/mm3 Seg Neuts % (Manual) 86.0 H (40.0-70.0) % Lymphocytes % (Manual) 2.0 L (13.4-35.0) % Eosinophils % (Manual) 7.0 H (0.0-4.3) % Nucleated RBC % 68.0 H (0.0-0.9) % Seg Neutrophils # Man 0.0 L (1.8-7.7) K/mm3 Lymphocytes # (Manual) 0.0 L (1.2-5.4) K/mm3 Chloride 95.9 L (98-107) mmol/L Carbon Dioxide 21 L (22-30) mmol/L BUN 71 H (9-20) mg/dL Creatinine 7.9 H (0.8-1.5) mg/dL Glucose 132 H (75-100) mg/dL Calcium 8.2 L (8.4-10.2) mg/dL
[2018-10-22] MEDS ORDERED: NACL 0.9 (PRIMING MACHINE ONLY DIALYSIS) MC ONE (13:08)
--- NOTE | 2018-10-22 16:02 | Progress Note ---
Assessment and Plan / Acute encephalopathy, improved, stable now Neurology following, likely from possible vaculitis vs neurosyphilis Acute CVA?? continue to treat underlying possible cause cont to monitor at IMCU /Acute resp failure s/p intubated in ED Intubated for airway protection, patient was very lethargic and confused on admission Pulm following, self extubated 10/16/18 Continue nebs frequent suctioning and supplemental O2 as needed CXR shows new infiltrates likely aspiration, cont abx /HIV/AIDS No previous records available ID Physician following VL 320,000 / CD4=3 on 10/11/2018 /Acute CVA with Bilateral infarcts with edema Consulted Neurology, he was evaluated by DR. Valentine. Could be due to possible vasculitis - further workup pending Neuro did not recommend anti-platelets /SHRUTHI due to ATN patient was started on hemodialysis Baseline unknown, renal following /Urinary retention Unable to place Ricketts catheter Consulted and called Dr. Paula, urology and he came and placed suprapubic catheter patient now on HD /Severe Sepsis with syphilis and HIV - s/p LP, but CSF study does not corelate with meningitis Per ID: - f/u CSF culture, VDRL, CMV-PCR, T.gondii PCR, cryptococcal antigen - continue ganciclovir to cover empirically VZV/CMV - continue Mepron (atovaquone) 750 mg BID - continue Ceftriaxone 2gms IV q 24, - Continue Vancomycin, per PK dosing, - negative repeat blood culture /Thrombocytopenia, Likely from severe sepsis s/p 2 Units platelets transfused, continue to monitor /Anemia, multifactorial s/p total 4 Units PRBC, stool positive for occult blood Seen by GI, conservative management /Hyperkalemia, resolved /Elevated LFT, from possible underlying sepsis and HIV - Continue to trend /Hyperlipidemia, low fat TF diet /Hypertensive urgency. Started on cardene drip, wean off as tolerated /Elevated Troponin Likely due to kidney disease, 2-D echo 45-50% /Dysphagia ??, cont TF now, s/p speech eval - ordered MBS Prognosis guarded Full code status. brief History patient is 43 YO Male with HIV, hypertension, previous stroke, Nicotine Depe ndence, presents to ED for evaluation. Patient was confused and lethargic and unable to provide history. He was seen and evaluated in ED and found to be in distress and unable to protect his airway and was therefore intubated, placed on ventilator and admitted to ICU. Patient diagnosed with acute resp failure, renal failure(acute vs acute on chronic) , Encephalopathy, Acidosis. He continues to have fevers, followed by ID Physician for HIV/AIDS. renal failure worsened therefore started on hemodialysis. s/p LP on 10/16, workup so far negative for meningitis. He is positive for RPR - getting treated for syphilis. Patient was transferred to [facility] but developed aspiration event, sent back to IMCU. s/p speech eval today, recommeded MBS study - ordered for tomorrow Hospitalist Physical GEN: NAD HEENT: Normocephalic, atraumatic, Neck: supple, No JVD Lungs:+ rhonchi, no wheeze, tachypnic Heart:S1 and S2 regular, no murmurs, rubs or gallop, Abd:soft, non tender, non distended, normal bowel sounds Ext: No edema, no clubbing or cyanosis Neuro: Follow simple commands, moves all extremity Skin: No rash Musculoskeletal: No joint swelling or tenderness Subjective Date of service: 10/22/18 Principal diagnosis: acute kidney injury Interval history: Patient seen and examined Self extubated himself 10/16 mental status much better, can follow commend s/p speech eval today, Objective - Constitutional Vitals: Vital Signs - 12hr 10/22/18 10/22/18 10/22/18 05:00 06:00 07:00 Temperature Pulse Rate 109 H 104 H 109 H Pulse Rate [ Bilateral Throughout] Pulse Rate [ 109 H From Monitor] Respiratory 36 H 31 H 32 H Rate Respiratory Rate [Bilateral Throughout] Blood Pressure 135/84 126/76 127/86 O2 Sat by Pulse 96 97 92 Oximetry 10/22/18 10/22/18 10/22/18 07:41 08:00 09:00 Temperature 98.4 F Pulse Rate 113 H 119 H Pulse Rate [ Bilateral Throughout] Pulse Rate [ From Monitor] Respiratory 34 H 35 H Rate Respiratory Rate [Bilateral Throughout] Blood Pressure 142/96 131/80 O2 Sat by Pulse 89 100 Oximetry 10/22/18 10/22/18 10/22/18 09:26 09:41 09:42 Temperature Pulse Rate Pulse Rate [ 115 H 115 H Bilateral Throughout] Pulse Rate [ From Monitor] Respiratory Rate Respiratory 16 16 Rate [Bilateral Throughout] Blood Pressure O2 Sat by Pulse 100 Oximetry 10/22/18 10/22/18 10/22/18 10:00 10:01 10:02 Temperature Pulse Rate 117 H 117 H 113 H Pulse Rate [ Bilateral Throughout] Pulse Rate [ From Monitor] Respiratory 25 H Rate Respiratory Rate [Bilateral Throughout] Blood Pressure 131/81 131/81 131/81 O2 Sat by Pulse 100 Oximetry 10/22/18 10/22/18 11:00 11:34 Temperature 100.6 F H Pulse Rate 113 H Pulse Rate [ Bilateral Throughout] Pulse Rate [ From Monitor] Respiratory 36 H Rate Respiratory Rate [Bilateral Throughout] Blood Pressure 114/72 O2 Sat by Pulse 96 Oximetry - Labs CBC & Chem 7: 10/22/18 05:51 10/22/18 05:51 Labs: Abnormal lab results 10/22/18 10/22/18 10/22/18 Range/Units 05:51 05:51 05:51 RBC 2.51 L (3.65-5.03) M/mm3 Hgb 7.7 L (11.8-15.2) gm/dl Hct 22.9 L (35.5-45.6) % RDW 22.4 H (13.2-15.2) % Plt Count 128 L (140-440) K/mm3 Seg Neuts % (Manual) 86.0 H (40.0-70.0) % Lymphocytes % (Manual) 2.0 L (13.4-35.0) % Eosinophils % (Manual) 7.0 H (0.0-4.3) % Nucleated RBC % 68.0 H (0.0-0.9) % Seg Neutrophils # Man 0.0 L (1.8-7.7) K/mm3 Lymphocytes # (Manual) 0.0 L (1.2-5.4) K/mm3 Chloride 95.9 L (98-107) mmol/L Carbon Dioxide 21 L (22-30) mmol/L BUN 71 H (9-20) mg/dL Creatinine 7.9 H (0.8-1.5) mg/dL Glucose 132 H (75-100) mg/dL Calcium 8.2 L (8.4-10.2) mg/dL Lactate Dehydrogenase 925 H (91-180) units/L
[2018-10-22] MEDS: NACL 0.9% IV SCH (20:07)
[2018-10-22] MEDS: CYTOVENE IV SCH (20:07)
[2018-10-23] MEDS: DUONEB *Not for PRN Use IH SCH ×4 (02:31→20:31)
[2018-10-23 05:50] LABS: Hematocrit 20.3 % (35.5-45.6); Hemoglobin 6.8 gm/dl (11.8-15.2); Mean Corpuscular HGB Conc 33 % (32-34); Mean Corpuscular Volume 91 fl (84-94); Red Blood Count 2.23 M/mm3 (3.65-5.03)
[2018-10-23 05:53] LABS: Red Cell Distribution Width 22.1 % (13.2-15.2)
[2018-10-23] MEDS: BROVANA NEBU IH SCH ×2 (07:20→20:31)
[2018-10-23 07:35] LABS: Basophils % (Manual) 0 % (0.0-1.8); Total Cells Counted 100
[2018-10-23 07:36] LABS: Anisocytosis 1+
[2018-10-23 07:37] LABS: Ovalocytes Few
[2018-10-23 07:38] LABS: Platelet Estimate Appe
[2018-10-23 07:39] LABS: Platelet Count 166 K/mm3 (140-440)
--- NOTE | 2018-10-23 08:40 | Hem/Onc Progress Note ---
Assessment and Plan 1. Anemia. At admission, hemoglobin was 8.1, later low and s/p Transfusion support. 2. Platelets at admission was 20. 3. White cell count was elevated. 4. PT/INR h/o slightly elevated. 5. Renal failure. 6. ALT elevated. 7. The patient has multiple medical issues. PLAN: I will ask for a smear evaluation. I will call the lab for same. Supportive care in the interim while we looked for primary etiology. 3/ - plt better - s/p transfusion d/w dr rain and dr carrillo 10/14 - low plt - rasta ctive bleed suprapubic catheter 10/15 - plt were rising and again going down' pt had got plt transfusion LDH high - [id number] ordered smear - ordererd LDH may be high in other causes too - renal etc 10/16 - d/w path - not many schistocytes on smear - ADAMTS 13 ordered extubated 10/17 - plt low - path review ordered d/w armin monsalve 10/18 - path report pending plt low - but no active bleeding 10/19 - pt more alert - follows commands no bleeding 10/20 pt SOB - d/w Dr Monsalve and RN plt low - but no bleeding NGT+ more awake 10/21 - pt in [facility] plt >100 - more awake 10/22 - clinically better - moves all 4 limbs 10/23 - clinically stable - prbc suport - Patient Problems (1) Thrombocytopenia associated with AIDS Current Visit: Yes Status: Acute Subjective Date of service: 10/23/18 Principal diagnosis: low plt Interval history: feeling better Objective - Constitutional Vitals: Last Vital Signs Temp 98.0 F 10/22/18 15:50 Pulse 113 H 10/23/18 07:36 Resp 30 H 10/23/18 07:36 BP 128/35 10/23/18 07:00 Pulse Ox 97 10/23/18 07:29 Pain Intensity (0-10): denies any pain General appearance: no acute distress Performance status: 4-completely disabled - EENT Eyes: EOM intact ENT: clear oral mucosa - Respiratory Respiratory effort: Positive: normal Respiratory: bilateral: CTA - Cardiovascular Heart Sounds: Present: S1 & S2 Extremities: No edema - Gastrointestinal General gastrointestinal: Present: soft, non-tender Rectal Exam: deferred - Genitourinary Male genitourinary: Present: deferred - Integumentary Integumentary: warm - Musculoskeletal Musculoskeletal: generalized weakness - Labs Lab Results: Laboratory Results - last 24 hr 10/22/18 10/22/18 10/23/18 05:51 05:51 05:16 WBC 6.4 6.2 RBC 2.23 L Hgb 6.8 L Hct 20.3 L MCV 91 MCH 30 MCHC 33 RDW 22.1 H Plt Count 128 L 166 Add Manual Diff Complete Complete Total Counted 100 100 Seg Neuts % (Manual) 86.0 H 78.0 H Band Neutrophils % 3.0 2.0 Lymphocytes % (Manual) 2.0 L 11.0 L Reactive Lymphs % (Man) 0 0 Monocytes % (Manual) 2.0 3.0 Eosinophils % (Manual) 7.0 H 6.0 H Basophils % (Manual) 0 0 Metamyelocytes % 0 0 Myelocytes % 0 0 Promyelocytes % 0 0 Blast Cells % 0 0 Nucleated RBC % 68.0 H 41.0 H Seg Neutrophils # Man 0.0 L 0.0 L Band Neutrophils # 0.0 0.0 Lymphocytes # (Manual) 0.0 L 0.0 L Abs React Lymphs (Man) 0.0 0.0 Monocytes # (Manual) 0.0 0.0 Eosinophils # (Manual) 0.0 0.0 Basophils # (Manual) 0.0 0.0 Metamyelocytes # 0.0 0.0 Myelocytes # 0.0 0.0 Promyelocytes # 0.0 0.0 Blast Cells # 0.0 0.0 WBC Morphology Not Reportable Not Reportable Hypersegmented Neuts Not Reportable Not Reportable Hyposegmented Neuts Not Reportable Not Reportable Hypogranular Neuts Not Reportable Not Reportable Smudge Cells Not Reportable Not Reportable Toxic Granulation Not Reportable Not Reportable Toxic Vacuolation Not Reportable Not Reportable Dohle Bodies Not Reportable Not Reportable Pelger-Huet Anomaly Not Reportable Not Reportable Kartik Rods Not Reportable Not Reportable Platelet Estimate Consistent w auto Appe Clumped Platelets Not Reportable Not Reportable Plt Clumps, EDTA Not Reportable Not Reportable Large Platelets Not Reportable Not Reportable Giant Platelets Not Reportable Not Reportable Platelet Satelliting Not Reportable Not Reportable Plt Morphology Comment Not Reportable Not Reportable RBC Morphology Not Reportable Not Reportable Dimorphic RBCs Not Reportable Not Reportable Polychromasia Not Reportable 1+ Hypochromasia Not Reportable Not Reportable Poikilocytosis Not Reportable Not Reportable Anisocytosis 1+ 1+ Microcytosis Not Reportable Not Reportable Macrocytosis Few Not Reportable Spherocytes Not Reportable Not Reportable Pappenheimer Bodies Not Reportable Not Reportable Sickle Cells Not Reportable Not Reportable Target Cells Not Reportable Not Reportable Tear Drop Cells Not Reportable Not Reportable Ovalocytes Not Reportable Few Helmet Cells Not Reportable Not Reportable [place] Bodies Not Reportable Not Reportable [place] Rings Not Reportable Not Reportable [place] Cells Not Reportable Not Reportable Bite Cells Not Reportable Not Reportable Crenated Cell Not Reportable Not Reportable Elliptocytes Not Reportable Few Acanthocytes (Spur) Not Reportable Not Reportable Rouleaux Not Reportable Not Reportable Hemoglobin C Crystals Not Reportable Not Reportable Schistocytes Few Not Reportable Malaria parasites Not Reportable Not Reportable Jv Bodies Not Reportable Not Reportable Hem Pathologist Commnt No No Sodium Potassium Chloride Carbon Dioxide Anion Gap BUN Creatinine Estimated GFR BUN/Creatinine Ratio Glucose Calcium Lactate Dehydrogenase 925 H Random Vancomycin 10/23/18 10/23/18 05:16 07:32 WBC RBC Hgb Hct MCV MCH MCHC RDW Plt Count Add Manual Diff Total Counted Seg Neuts % (Manual) Band Neutrophils % Lymphocytes % (Manual) Reactive Lymphs % (Man) Monocytes % (Manual) Eosinophils % (Manual) Basophils % (Manual) Metamyelocytes % Myelocytes % Promyelocytes % Blast Cells % Nucleated RBC % Seg Neutrophils # Man Band Neutrophils # Lymphocytes # (Manual) Abs React Lymphs (Man) Monocytes # (Manual) Eosinophils # (Manual) Basophils # (Manual) Metamyelocytes # Myelocytes # Promyelocytes # Blast Cells # WBC Morphology Hypersegmented Neuts Hyposegmented Neuts Hypogranular Neuts Smudge Cells Toxic Granulation Toxic Vacuolation Dohle Bodies Pelger-Huet Anomaly Kartik Rods Platelet Estimate Clumped Platelets Plt Clumps, EDTA Large Platelets Giant Platelets Platelet Satelliting Plt Morphology Comment RBC Morphology Dimorphic RBCs Polychromasia Hypochromasia Poikilocytosis Anisocytosis Microcytosis Macrocytosis Spherocytes Pappenheimer Bodies Sickle Cells Target Cells Tear Drop Cells Ovalocytes Helmet Cells [place] Bodies Chaplin Rings Jani Cells Bite Cells Crenated Cell Elliptocytes Acanthocytes (Spur) Rouleaux Hemoglobin C Crystals Schistocytes Malaria parasites Jv Bodies Hem Pathologist Commnt Sodium 144 Potassium 4.1 Chloride 100.9 Carbon Dioxide 22 Anion Gap 25 BUN 37 H Creatinine 6.0 H Estimated GFR 13 BUN/Creatinine Ratio 6 Glucose 135 H Calcium 8.0 L Lactate Dehydrogenase Random Vancomycin 15.0 Medications & Allergies - Medications Allergies/Adverse Reactions: Allergies Sulfa (Sulfonamide Antibiotics) Allergy (Verified 10/10/18 16:54) Unknown Home Medications: Home Medications Medication Instructions Recorded Confirmed Last Taken Type Acetaminophen [Tylenol] 1,000 mg PO Q6HR 10/10/18 10/10/18 Unknown History Amlodipine Besylate [Norvasc] 10 mg PO QDAY 10/10/18 10/10/18 Unknown History Aspirin [Adult Aspirin] 81 mg PO DAILY 10/10/18 10/10/18 Unknown History Atorvastatin [Lipitor Tab] 80 mg PO DAILY 10/10/18 10/10/18 Unknown History Losartan [Cozaar] 100 mg PO QDAY 10/10/18 10/10/18 Unknown History Multivitamin [Multiple Vitamins] 1 each PO DAILY 10/10/18 10/10/18 Unknown History hydroCHLOROthiazide [HCTZ] 25 mg PO QDAY 10/10/18 10/10/18 Unknown History Active Medications: Generic Name Dose Route Start Last Admin Trade Name Freq PRN Reason Stop Dose Admin Acetaminophen 500 mg 10/16/18 10:02 10/21/18 23:30 Tylenol PO 500 mg Q6H PRN Administration Fever >101 Albuterol 2.5 mg 10/10/18 18:12 Proventil IH Q3HRT PRN Shortness Of Breath Albuterol/Ipratropium 1 ampul 10/20/18 14:30 10/23/18 07:20 Duoneb *Not For Prn Use* IH 1 ampul Q6HRT RUBI Administration Amlodipine Besylate 10 mg 10/11/18 10:00 10/22/18 10:01 Norvasc PO 10 mg QDAY RUBI Administration Lipase/Protease/Amylase 1 each 10/11/18 12:58 Pancrebecka Reed 10,500 Unit FEEDTUBE PRN PRN For Clogged Feeding Tube Arformoterol Tartrate 15 mcg 10/20/18 11:45 10/23/18 07:20 Brovana Nebu IH 15 mcg Q12HRT RUBI Administration Atovaquone 750 mg 10/18/18 10:00 10/22/18 22:02 Mepron PO 750 mg BID RUBI Administration Carvedilol 12.5 mg 10/22/18 22:00 10/22/18 22:03 Coreg PO 12.5 mg BID RUBI Administration Haloperidol Lactate 5 mg 10/13/18 19:45 10/20/18 21:08 Haldol IV 5 mg Q6H PRN Administration Agitation Hydralazine HCl 10 mg 10/12/18 15:50 10/18/18 06:36 Apresoline IV 10 mg Q4HR PRN Administration SBP>175 or DBP>115 Hydrophilic Ointment 1 applic 10/10/18 17:53 Vaseline Lip Therapy TP Q2HR PRN Dry Lips Ganciclovir Sodium 80 mg/ 250 mls @ 100 mls/hr 10/15/18 20:00 10/22/18 20:07 Sodium Chloride IV 100 mls/hr MoWeFr RUBI Administration Sodium Chloride 100 mls @ 999 mls/hr 10/20/18 09:54 Nacl 0.9% IV CHON PRN Hypotension Ceftriaxone Sodium 2 gm in 100 mls @ 200 mls/hr 10/21/18 15:00 10/22/18 10:03 Rocephin/Ns 2 Gm/100 Ml IV 200 mls/hr Q24HR RUBI Administration Protocol Lansoprazole 30 mg 10/15/18 10:00 10/22/18 22:02 Prevacid Solutab FEEDTUBE 30 mg BID RUBI Administration Lorazepam 1 mg 10/13/18 19:48 10/21/18 04:09 Ativan IV 1 mg Q4H PRN Administration agitation Metoprolol Tartrate 5 mg 10/18/18 14:05 Lopressor IV Q6HR PRN Tachyarrhythmias Multi-Ingred Cream/Lotion/Oil/Oint 1 applic 10/10/18 17:53 Artificial Tears Ophth Oint OU Q4HR PRN Dry Eye(s) Multivitamins 1 each 10/11/18 10:00 10/22/18 10:02 Theragran Tab PO 1 each DAILY RUBI Administration Simple Syrup 15 ml 10/11/18 12:58 Simple Syrup FEEDTUBE PRN PRN Hypoglycemia Simple Syrup 30 ml 10/11/18 12:58 Simple Syrup FEEDTUBE PRN PRN Hypoglycemia Sodium Bicarbonate 325 mg 10/11/18 12:58 Sodium Bicarbonate FEEDTUBE PRN PRN For Clogged Feeding Tube Sodium Chloride 10 ml 10/10/18 22:00 10/22/18 22:04 Sodium Chloride Flush Syringe 10 Ml IV 10 ml BID RUBI Administration Sodium Chloride 10 ml 10/10/18 18:12 Sodium Chloride Flush Syringe 10 Ml IV PRN PRN LINE FLUSH
[2018-10-23] MEDS ORDERED: NACL 0.9% 500 ML 500 ML IV NR ×2 (09:00→23:00)
[2018-10-23] MEDS: MEPRON PO SCH ×2 (09:52→22:01)
[2018-10-23] MEDS: NORVASC PO SCH (09:52)
[2018-10-23] MEDS: COREG PO SCH ×2 (09:52→22:02)
[2018-10-23] MEDS: ROCEPHIN/NS 2 GM/100 ML 2 GM/100 ML BAG IV SCH (09:53)
[2018-10-23] MEDS: PREVACID SOLUTAB FEEDTUBE SCH ×2 (09:53→22:04)
[2018-10-23] MEDS: SODIUM CHLORIDE FLUSH SYRINGE 10 ML IV SCH ×2 (09:54→22:05)
[2018-10-23] MEDS: THERAGRAN Tab PO SCH (09:54)
--- NOTE | 2018-10-23 10:07 | Progress Note ---
Subjective Principal diagnosis: acute kidney injury Interval history: Patient was seen today for follow-up on multiple renal related issues He has been tolerating dialysis treatment fairly well he is alert awake dialysis dependent Vitals labs intake output medications were reviewed Social history: Reviewed Allergies: Reviewed Family history: Reviewed Physical examination HEENT: Oral mucosa moist no pallor or icterus patient has feeding tube Neck: Supple no JVD Chest: Clear to auscultation anteriorly CVS: Regular rate and rhythm S1 and S2 heard Abdomen: Soft nontender no suprapubic masses no organomegaly appreciable Extremity: Dry skin less than 1+ peripheral edema Musculoskeletal: No joint effusion noted in knees and ankle Neurological: Alert awake Dermatology: No petechial rashes Psychiatry: No evidence of any agitation and aggression noted Assessment and plan renal failure: Chronic renal failure in a patient who has echogenic kidney has been started on renal replacement therapy, no sinus symptoms of improvement of renal function patient will need to continue with renal replacement therapy for now continue with hemodialysis Monday Diagnosis with acute encephalopathy slowly improving, currently being followed by neurology Respiratory failure currently extubated History of HIV AIDS Bilateral CVA with edema neurology following urinary retention: Status post suprapubic catheter placement As a October 23 his labs appear to be satisfactory potassium is 4.1 calcium is 8.0 hemoglobin is currently 6.8 low with platelet count around 1 66,000 which is much better patient is currently being followed by hematology oncology, His renal prognosis appears to be guarded to poor at this time he will continue to receive renal replacement therapy we'll continue to monitor for any meaningful functional recovery of renal function Metabolic acidosis hyperkalemia: Currently improving Pancytopenia slowly improving We'll continue to follow and make recommendation from renal standpoint Objective - Vital Signs Vital signs: Vital Signs - 12hr 10/22/18 10/22/18 10/23/18 22:30 23:01 00:00 Temperature Pulse Rate 125 H 102 H Pulse Rate [ Bilateral Throughout] Pulse Rate [ 121 H From Monitor] Respiratory 39 H 26 H Rate Respiratory Rate [Bilateral Throughout] Blood Pressure 141/89 141/89 O2 Sat by Pulse 97 95 98 Oximetry 10/23/18 10/23/18 10/23/18 01:00 02:00 03:00 Temperature Pulse Rate 104 H 104 H 111 H Pulse Rate [ Bilateral Throughout] Pulse Rate [ From Monitor] Respiratory 22 27 H 31 H Rate Respiratory Rate [Bilateral Throughout] Blood Pressure 115/57 122/77 122/71 O2 Sat by Pulse 98 97 100 Oximetry 10/23/18 10/23/18 10/23/18 04:00 05:00 06:00 Temperature Pulse Rate 109 H 111 H 110 H Pulse Rate [ Bilateral Throughout] Pulse Rate [ 121 H From Monitor] Respiratory 24 26 H 27 H Rate Respiratory Rate [Bilateral Throughout] Blood Pressure 123/65 121/71 126/61 O2 Sat by Pulse 96 95 94 Oximetry 10/23/18 10/23/18 10/23/18 07:00 07:21 07:29 Temperature Pulse Rate 114 H Pulse Rate [ 116 H Bilateral Throughout] Pulse Rate [ From Monitor] Respiratory 32 H Rate Respiratory 25 H Rate [Bilateral Throughout] Blood Pressure 128/35 O2 Sat by Pulse 96 97 Oximetry 10/23/18 10/23/18 10/23/18 07:36 08:00 09:52 Temperature 98.8 F Pulse Rate 117 H Pulse Rate [ 113 H Bilateral Throughout] Pulse Rate [ From Monitor] Respiratory Rate Respiratory 30 H Rate [Bilateral Throughout] Blood Pressure 126/66 O2 Sat by Pulse Oximetry - Lab 10/23/18 05:16 10/23/18 05:16 Most recent lab results Calcium 8.0 mg/dL (8.4-10.2) L 10/23/18 05:16 Phosphorus 5.10 mg/dL (2.5-4.5) H 10/12/18 04:57 Magnesium 3.10 mg/dL (1.7-2.3) H 10/18/18 05:03 Urine Creatinine 30.8 mg/dL (0.1-20.0) H 10/13/18 04:43 Urine Sodium 106 mmol/L 10/13/18 04:43 Urine Total Protein 75 mg/dL (5-11.8) H 10/13/18 04:43 Medications & Allergies - Medications Allergies/Adverse Reactions: Allergies Sulfa (Sulfonamide Antibiotics) Allergy (Verified 10/10/18 16:54) Unknown Home Medications: Home Medications Medication Instructions Recorded Confirmed Last Taken Type Acetaminophen [Tylenol] 1,000 mg PO Q6HR 10/10/18 10/10/18 Unknown History Amlodipine Besylate [Norvasc] 10 mg PO QDAY 10/10/18 10/10/18 Unknown History Aspirin [Adult Aspirin] 81 mg PO DAILY 10/10/18 10/10/18 Unknown History Atorvastatin [Lipitor Tab] 80 mg PO DAILY 10/10/18 10/10/18 Unknown History Losartan [Cozaar] 100 mg PO QDAY 10/10/18 10/10/18 Unknown History Multivitamin [Multiple Vitamins] 1 each PO DAILY 10/10/18 10/10/18 Unknown History hydroCHLOROthiazide [HCTZ] 25 mg PO QDAY 10/10/18 10/10/18 Unknown History Active Medications: Generic Name Dose Route Start Last Admin Trade Name Freq PRN Reason Stop Dose Admin Acetaminophen 500 mg 10/16/18 10:02 10/21/18 23:30 Tylenol PO 500 mg Q6H PRN Administration Fever >101 Albuterol 2.5 mg 10/10/18 18:12 Proventil IH Q3HRT PRN Shortness Of Breath Albuterol/Ipratropium 1 ampul 10/20/18 14:30 10/23/18 07:20 Duoneb *Not For Prn Use* IH 1 ampul Q6HRT RUBI Administration Amlodipine Besylate 10 mg 10/11/18 10:00 10/23/18 09:52 Norvasc PO 10 mg QDAY RUBI Administration Lipase/Protease/Amylase 1 each 10/11/18 12:58 Pancrebecka Reed 10,500 Unit FEEDTUBE PRN PRN For Clogged Feeding Tube Arformoterol Tartrate 15 mcg 10/20/18 11:45 10/23/18 07:20 Brovana Nebu IH 15 mcg Q12HRT RUBI Administration Atovaquone 750 mg 10/18/18 10:00 10/23/18 09:52 Mepron PO 750 mg BID RUBI Administration Carvedilol 12.5 mg 10/22/18 22:00 10/23/18 09:52 Coreg PO 12.5 mg BID RUBI Administration Haloperidol Lactate 5 mg 10/13/18 19:45 10/20/18 21:08 Haldol IV 5 mg Q6H PRN Administration Agitation Hydralazine HCl 10 mg 10/12/18 15:50 10/18/18 06:36 Apresoline IV 10 mg Q4HR PRN Administration SBP>175 or DBP>115 Hydrophilic Ointment 1 applic 10/10/18 17:53 Vaseline Lip Therapy TP Q2HR PRN Dry Lips Ganciclovir Sodium 80 mg/ 250 mls @ 100 mls/hr 10/15/18 20:00 10/22/18 20:07 Sodium Chloride IV 100 mls/hr MoWeFr RUBI Administration Sodium Chloride 100 mls @ 999 mls/hr 10/20/18 09:54 Nacl 0.9% IV CHON PRN Hypotension Ceftriaxone Sodium 2 gm in 100 mls @ 200 mls/hr 10/21/18 15:00 10/23/18 09:53 Rocephin/Ns 2 Gm/100 Ml IV 200 mls/hr Q24HR RUBI Administration Protocol Sodium Chloride 500 mls @ 0 mls/hr 10/23/18 09:00 Nacl 0.9% 500 Ml IV 10/23/18 17:00 ONCE NR As Directed Lansoprazole 30 mg 10/15/18 10:00 10/23/18 09:53 Prevacid Solutab FEEDTUBE 30 mg BID RUBI Administration Lorazepam 1 mg 10/13/18 19:48 10/21/18 04:09 Ativan IV 1 mg Q4H PRN Administration agitation Metoprolol Tartrate 5 mg 10/18/18 14:05 Lopressor IV Q6HR PRN Tachyarrhythmias Multi-Ingred Cream/Lotion/Oil/Oint 1 applic 10/10/18 17:53 Artificial Tears Ophth Oint OU Q4HR PRN Dry Eye(s) Multivitamins 1 each 10/11/18 10:00 10/23/18 09:54 Theragran Tab PO 1 each DAILY RUBI Administration Simple Syrup 15 ml 10/11/18 12:58 Simple Syrup FEEDTUBE PRN PRN Hypoglycemia Simple Syrup 30 ml 10/11/18 12:58 Simple Syrup FEEDTUBE PRN PRN Hypoglycemia Sodium Bicarbonate 325 mg 10/11/18 12:58 Sodium Bicarbonate FEEDTUBE PRN PRN For Clogged Feeding Tube Sodium Chloride 10 ml 10/10/18 22:00 10/23/18 09:54 Sodium Chloride Flush Syringe 10 Ml IV 10 ml BID RUBI Administration Sodium Chloride 10 ml 10/10/18 18:12 Sodium Chloride Flush Syringe 10 Ml IV PRN PRN LINE FLUSH
--- NOTE | 2018-10-23 10:25 | Progress Note ---
Assessment and Plan Cultures: Blood culture 10/10/2018 no growth. Sputum culture 10/10/2018 Ana Paula albicans. Crypto Ag 10/10/2018 neg. Urine culture 10/13/2018 no growth. Blood culture 10/17/2018 no growth. Blood culture 10/20/2018: in progress Stool Occult Blood 10/23/18: positive Assessment: 43 y/o male with history of HIV (unknown CD4/VL/ART intake), HTN, CVA 6 months ago at [facility], Nicotine Dependence, Malnutrition; admitted on 10/10/2018 due to AMS (confusion/lethargy) and slurred speech for 24 h: 1) Severe SIRS versus sepsis: Resolved Unclear etiology ? aspiration pneumonia +/- opportunistic brain infection - CXR neg - Unable to obtain UA - patient was anuric - BNP 70K - Troponin 0.2 - LDH 2242 2) Acute hypoxemic respiratory failure: for airway protection +/- ? pneumonia. Repeat CXR no consolidations. Ana Paula in tracha sp likely a colonizer. Extubated 10/15 3) Acute encephalopathy: not better; multifactorial ?from hypertensive urgency +/- brain opportunistic infection. DDx: Neurosyphilis, VZV/CMV encephalitis versus DREDGING INSPECTOR lymphoma versus less likely PML - CT head showed bilateral chronic ischemic changes. - Brain MRI showed areas of edema in the basal ganglia and thalami bila terally, within the jamari and in the cerebral hemispheres bilaterally in the subcortical and deep white matter and in portions of the cortex, areas of encephalomalacia in the basal ganglia bilaterally with evidence of previous hemorrhage or mineral deposition and numerous small foci of acute infarct in the basal ganglia bilaterally, subinsular regions bilaterally and medial temporal lobes bilaterally and possibly in the occipital cortex bilaterally. - RPR reactive 1:32 / FTA ABs reactive - Brain MRA showed possible dissection versus artifact at the basilar artery. Luminal irregularity at the anterior, middle, and posterior cerebral arteries as well as the carotid siphons may represent mild to moderate atherosclerotic disease. More notable narrowing at the distal right A1 segment. Differential diagnosis includes motion artifact and vasculitis. Vertebral arteries are not clearly visualized. - CSF wbc 4, rbc 113, Seg 8%, Lymph 76%, protein 55, glucose 73 which is not c/w meningitis - Toxoplasma IgG negative - On ganciclovir, penicillin and high dosed mepron - CMV DNA VL=1,370, 3.1 log on ganciclovir - likely reactivation - CSF VDRL non reactive, Toxoplasma PCR: negative 4) Anemia/thrombocytopenia ? unclear etiology, worsening ?HIV myelosuppression ?disseminated MAC/CMV ?ganciclovir 5) Acute on CKD or SHRUTHI ? unclear etiology: r/o rhabdo ?ischemia. Started on HD 6) Elevated lactate ? Lactate 17. 7) DM: uncontrolled. 8) Elevated LFTs ? 9) HIV/AIDS: VL 320,000 / CD4=3 on 10/11/2018 Recommendations: - continue ganciclovir to cover empirically VZV/CMV D10 - continue Mepron (atovaquone) 750 mg BID - f/u repeat blood culture -continue Ceftriaxone 2gms IV q 24, D3 -Continue Vancomycin, per PK dosing, D3 - f/u CSF culture, VDRL, CMV-PCR, T.gondii PCR, cryptococcal antigen [facility] M: [id number] O:[phone] Subjective Date of service: 10/23/18 Principal diagnosis: acute kidney injury Interval history: Patient seen and examined. No acute distress. no fevers. More alert. Objective - Exam Narrative Exam: General appearance: Asleep, easily arousable. More alert. No acute distress observed Eyes: anicteric sclerae, moist conjunctivae; no lid-lag; PERRLA HENT: Atraumatic; oropharynx limited Neck: Trachea midline; supple, no thyromegaly or lymphadenopathy Lungs: CTA, with normal respiratory effort and no intercostal retractions CV: tachycardic Abdomen: Soft, non-tender;+SP cath Extremities: No peripheral edema or extremity lymphadenopathy Skin: Normal temperature, turgor and texture; no rash, ulcers or subcutaneous nodules Psych: affect: flat Neuro: non-focal, occasionally follows commands, , +garbled speech - Constitutional Vitals: Vital Signs Temp Pulse Resp BP Pulse Ox 98.8 F 117 H 30 H 126/66 97 10/23/18 08:00 10/23/18 09:52 10/23/18 07:36 10/23/18 09:52 10/23/18 07:29 Temperature -Last 24 Hours Temperature 98.8 F Temperature 98.0 F Temperature 98.0 F Temperature 100.6 F - Labs CBC & Chem 7: 10/23/18 05:16 10/23/18 05:16 Labs: Abnormal lab results 10/22/18 10/22/18 10/23/18 Range/Units 05:51 05:51 05:16 RBC 2.23 L (3.65-5.03) M/mm3 Hgb 6.8 L (11.8-15.2) gm/dl Hct 20.3 L (35.5-45.6) % RDW 22.1 H (13.2-15.2) % Plt Count 128 L (140-440) K/mm3 Seg Neuts % (Manual) 86.0 H 78.0 H (40.0-70.0) % Lymphocytes % (Manual) 2.0 L 11.0 L (13.4-35.0) % Eosinophils % (Manual) 7.0 H 6.0 H (0.0-4.3) % Nucleated RBC % 68.0 H 41.0 H (0.0-0.9) % Seg Neutrophils # Man 0.0 L 0.0 L (1.8-7.7) K/mm3 Lymphocytes # (Manual) 0.0 L 0.0 L (1.2-5.4) K/mm3 BUN (9-20) mg/dL Creatinine (0.8-1.5) mg/dL Glucose (75-100) mg/dL Calcium (8.4-10.2) mg/dL Lactate Dehydrogenase 925 H (91-180) units/L Crossmatch 10/23/18 10/23/18 Range/Units 05:16 09:12 RBC (3.65-5.03) M/mm3 Hgb (11.8-15.2) gm/dl Hct (35.5-45.6) % RDW (13.2-15.2) % Plt Count (140-440) K/mm3 Seg Neuts % (Manual) (40.0-70.0) % Lymphocytes % (Manual) (13.4-35.0) % Eosinophils % (Manual) (0.0-4.3) % Nucleated RBC % (0.0-0.9) % Seg Neutrophils # Man (1.8-7.7) K/mm3 Lymphocytes # (Manual) (1.2-5.4) K/mm3 BUN 37 H (9-20) mg/dL Creatinine 6.0 H (0.8-1.5) mg/dL Glucose 135 H (75-100) mg/dL Calcium 8.0 L (8.4-10.2) mg/dL Lactate Dehydrogenase (91-180) units/L Crossmatch See Detail
--- NOTE | 2018-10-23 12:59 | Progress Note ---
Assessment and Plan 43 y/o male with acute encephalopathy, acute respiratory failure, and presumed acute vs acute on chronic renal failure. 1. Pulm status stable, will sign off. Subjective Date of service: 10/23/18 Principal diagnosis: acute kidney injury Interval history: Patient remains on room air stable. No family at bedside. Objective Vital Signs - 12hr 10/23/18 10/23/18 10/23/18 01:00 02:00 03:00 Temperature Pulse Rate 104 H 104 H 111 H Pulse Rate [ Bilateral Throughout] Pulse Rate [ From Monitor] Respiratory 22 27 H 31 H Rate Respiratory Rate [Bilateral Throughout] Blood Pressure 115/57 122/77 122/71 O2 Sat by Pulse 98 97 100 Oximetry 10/23/18 10/23/18 10/23/18 04:00 05:00 06:00 Temperature Pulse Rate 109 H 111 H 110 H Pulse Rate [ Bilateral Throughout] Pulse Rate [ 121 H From Monitor] Respiratory 24 26 H 27 H Rate Respiratory Rate [Bilateral Throughout] Blood Pressure 123/65 121/71 126/61 O2 Sat by Pulse 96 95 94 Oximetry 10/23/18 10/23/18 10/23/18 07:00 07:21 07:29 Temperature Pulse Rate 114 H Pulse Rate [ 116 H Bilateral Throughout] Pulse Rate [ From Monitor] Respiratory 32 H Rate Respiratory 25 H Rate [Bilateral Throughout] Blood Pressure 128/35 O2 Sat by Pulse 96 97 Oximetry 10/23/18 10/23/18 10/23/18 07:36 08:00 09:00 Temperature 98.8 F Pulse Rate 115 H 123 H Pulse Rate [ 113 H Bilateral Throughout] Pulse Rate [ From Monitor] Respiratory 34 H 38 H Rate Respiratory 30 H Rate [Bilateral Throughout] Blood Pressure 111/36 126/66 O2 Sat by Pulse 95 92 Oximetry 10/23/18 10/23/18 10/23/18 09:52 10:00 10:01 Temperature Pulse Rate 117 H 108 H 117 H Pulse Rate [ Bilateral Throughout] Pulse Rate [ From Monitor] Respiratory 31 H Rate Respiratory Rate [Bilateral Throughout] Blood Pressure 126/66 130/86 O2 Sat by Pulse 98 Oximetry 10/23/18 10/23/18 11:00 12:05 Temperature Pulse Rate 114 H 104 H Pulse Rate [ Bilateral Throughout] Pulse Rate [ From Monitor] Respiratory 36 H 19 Rate Respiratory Rate [Bilateral Throughout] Blood Pressure 129/80 129/80 O2 Sat by Pulse 99 Oximetry Constitutional: no acute distress, alert Eyes: non-icteric ENT: other (orally intubated, not on sedation, critically ill on vent) Neck: supple, no JVD Effort: mildly labored Ascultation: Bilateral: clear, diminished breath sounds, wheezes, rhonchi Percussion: Bilateral: not dull Cardiovascular: regular rate and rhythm (sinus tach), other (+ S3 gallop??) Gastrointestinal: normoactive bowel sounds, other (now with suprapubic catheter) Extremities: no cyanosis, no edema Neurologic: pupils equal and round, CN II-XII normal CBC and BMP: 10/23/18 05:16 10/23/18 05:16 ABG, PT/INR, D-dimer: ABG POC ABG pH 7.535 (7.35-7.45) H 10/21/18 09:49 POC ABG pCO2 32.0 (35-45) L 10/21/18 09:49 POC ABG pO2 57 (80-105) L 10/21/18 09:49 POC ABG HCO3 27.1 10/21/18 09:49 POC ABG Total CO2 28 10/21/18 09:49 POC ABG O2 Sat 93 10/21/18 09:49 PT/INR, D-dimer PT 14.5 Sec. (12.2-14.9) 10/15/18 00:59 INR 1.06 (0.87-1.13) 10/15/18 00:59 Abnormal lab findings: Abnormal Labs 10/10/18 10/10/18 10/10/18 15:02 15:02 15:02 WBC RBC 2.38 L Hgb 8.1 L Hct 24.9 L MCV 105 H MCH 34 H MCHC RDW 21.4 H Plt Count 20 L Seg Neuts % (Manual) 84.0 H Lymphocytes % (Manual) 8.0 L Monocytes % (Manual) Eosinophils % (Manual) Basophils % (Manual) Nucleated RBC % Seg Neutrophils # Man 7.8 H Abs Lymphs (Manual) Lymphocytes # (Manual) 0.7 L Monocytes # (Manual) Eosinophils # (Manual) Basophils # (Manual) PT 16.2 H INR 1.22 H POC ABG pH POC ABG pCO2 POC ABG pO2 Sodium 136 L Potassium Chloride 88.2 L Carbon Dioxide 8 L* BUN 70 H Creatinine 5.6 H Glucose 331 H POC Glucose Lactic Acid Uric Acid Calcium Phosphorus Magnesium TIBC Ferritin Total Bilirubin Direct Bilirubin AST ALT Alkaline Phosphatase Lactate Dehydrogenase Troponin T 0.298 H* NT-Pro-B Natriuret Pep Total Protein Albumin Triglycerides 329 H Cholesterol 234 H LDL Cholesterol Direct 139 H Vitamin B12 Urine Creatinine Urine Total Protein Lymph Enumerat CD4/CD8 Absolute CD3 Count % CD4 Cells Absolute CD4 Count % CD8 Cells Absolute CD19 Count T.pallidum Ab (FTA-ABS) HIV-1 RNA PCR copies/ml HIV-1 RNA (PCR) log Crossmatch 10/10/18 10/10/18 10/10/18 15:05 15:29 15:42 WBC RBC Hgb Hct MCV MCH MCHC RDW Plt Count Seg Neuts % (Manual) Lymphocytes % (Manual) Monocytes % (Manual) Eosinophils % (Manual) Basophils % (Manual) Nucleated RBC % Seg Neutrophils # Man Abs Lymphs (Manual) Lymphocytes # (Manual) Monocytes # (Manual) Eosinophils # (Manual) Basophils # (Manual) PT INR POC ABG pH POC ABG pCO2 POC ABG pO2 Sodium Potassium Chloride Carbon Dioxide BUN Creatinine Glucose POC Glucose 274 H Lactic Acid 17.90 H* Uric Acid Calcium Phosphorus Magnesium TIBC Ferritin Total Bilirubin Direct Bilirubin AST ALT Alkaline Phosphatase Lactate Dehydrogenase Troponin T NT-Pro-B Natriuret Pep Total Protein Albumin Triglycerides Cholesterol LDL Cholesterol Direct Vitamin B12 Urine Creatinine Urine Total Protein Lymph Enumerat CD4/CD8 Absolute CD3 Count % CD4 Cells Absolute CD4 Count % CD8 Cells Absolute CD19 Count T.pallidum Ab (FTA-ABS) HIV-1 RNA PCR copies/ml HIV-1 RNA (PCR) log Crossmatch See Detail 10/10/18 10/10/18 10/10/18 15:42 16:22 16:54 WBC RBC Hgb Hct MCV MCH MCHC RDW Plt Count Seg Neuts % (Manual) Lymphocytes % (Manual) Monocytes % (Manual) Eosinophils % (Manual) Basophils % (Manual) Nucleated RBC % Seg Neutrophils # Man Abs Lymphs (Manual) Lymphocytes # (Manual) Monocytes # (Manual) Eosinophils # (Manual) Basophils # (Manual) PT INR POC ABG pH POC ABG pCO2 9.0 L POC ABG pO2 140 H Sodium Potassium Chloride Carbon Dioxide BUN Creatinine Glucose POC Glucose Lactic Acid Uric Acid Calcium Phosphorus Magnesium TIBC Ferritin Total Bilirubin 1.50 H Direct Bilirubin 0.4 H AST 105 H ALT Alkaline Phosphatase Lactate Dehydrogenase 2342 H Troponin T NT-Pro-B Natriuret Pep 38995 H Total Protein 9.2 H Albumin Triglycerides Cholesterol LDL Cholesterol Direct Vitamin B12 Urine Creatinine Urine Total Protein Lymph Enumerat CD4/CD8 Absolute CD3 Count % CD4 Cells Absolute CD4 Count % CD8 Cells Absolute CD19 Count T.pallidum Ab (FTA-ABS) HIV-1 RNA PCR copies/ml HIV-1 RNA (PCR) log Crossmatch 10/10/18 10/10/18 10/10/18 17:08 18:07 18:24 WBC RBC Hgb Hct MCV MCH MCHC RDW Plt Count Seg Neuts % (Manual) Lymphocytes % (Manual) Monocytes % (Manual) Eosinophils % (Manual) Basophils % (Manual) Nucleated RBC % Seg Neutrophils # Man Abs Lymphs (Manual) Lymphocytes # (Manual) Monocytes # (Manual) Eosinophils # (Manual) Basophils # (Manual) PT INR POC ABG pH 7.172 L POC ABG pCO2 POC ABG pO2 533 H Sodium Potassium Chloride Carbon Dioxide BUN Creatinine Glucose POC Glucose Lactic Acid 14.80 H* Uric Acid Calcium Phosphorus Magnesium TIBC Ferritin Total Bilirubin Direct Bilirubin AST ALT Alkaline Phosphatase Lactate Dehydrogenase Troponin T 0.272 H* NT-Pro-B Natriuret Pep Total Protein Albumin Triglycerides Cholesterol LDL Cholesterol Direct Vitamin B12 Urine Creatinine Urine Total Protein Lymph Enumerat CD4/CD8 Absolute CD3 Count % CD4 Cells Absolute CD4 Count % CD8 Cells Absolute CD19 Count T.pallidum Ab (FTA-ABS) HIV-1 RNA PCR copies/ml HIV-1 RNA (PCR) log Crossmatch 10/10/18 10/10/18 10/10/18 19:58 20:54 20:54 WBC RBC Hgb Hct MCV MCH MCHC RDW Plt Count Seg Neuts % (Manual) Lymphocytes % (Manual) Monocytes % (Manual) Eosinophils % (Manual) Basophils % (Manual) Nucleated RBC % Seg Neutrophils # Man Abs Lymphs (Manual) Lymphocytes # (Manual) Monocytes # (Manual) Eosinophils # (Manual) Basophils # (Manual) PT INR POC ABG pH POC ABG pCO2 POC ABG pO2 Sodium Potassium Chloride Carbon Dioxide BUN Creatinine Glucose POC Glucose Lactic Acid 11.50 H* 2.90 H* 2.90 H* Uric Acid Calcium Phosphorus Magnesium TIBC Ferritin Total Bilirubin Direct Bilirubin AST ALT Alkaline Phosphatase Lactate Dehydrogenase Troponin T NT-Pro-B Natriuret Pep Total Protein Albumin Triglycerides Cholesterol LDL Cholesterol Direct Vitamin B12 Urine Creatinine Urine Total Protein Lymph Enumerat CD4/CD8 Absolute CD3 Count % CD4 Cells Absolute CD4 Count % CD8 Cells Absolute CD19 Count T.pallidum Ab (FTA-ABS) HIV-1 RNA PCR copies/ml HIV-1 RNA (PCR) log Crossmatch 10/10/18 10/10/18 10/11/18 22:43 23:55 02:44 WBC RBC Hgb Hct MCV MCH MCHC RDW Plt Count Seg Neuts % (Manual) Lymphocytes % (Manual) Monocytes % (Manual) Eosinophils % (Manual) Basophils % (Manual) Nucleated RBC % Seg Neutrophils # Man Abs Lymphs (Manual) Lymphocytes # (Manual) Monocytes # (Manual) Eosinophils # (Manual) Basophils # (Manual) PT INR POC ABG pH POC ABG pCO2 25.9 L POC ABG pO2 192 H Sodium Potassium Chloride Carbon Dioxide BUN Creatinine Glucose POC Glucose Lactic Acid 4.60 H* 5.40 H* Uric Acid Calcium Phosphorus Magnesium TIBC Ferritin Total Bilirubin Direct Bilirubin AST ALT Alkaline Phosphatase Lactate Dehydrogenase Troponin T NT-Pro-B Natriuret Pep Total Protein Albumin Triglycerides Cholesterol LDL Cholesterol Direct Vitamin B12 Urine Creatinine Urine Total Protein Lymph Enumerat CD4/CD8 Absolute CD3 Count % CD4 Cells Absolute CD4 Count % CD8 Cells Absolute CD19 Count T.pallidum Ab (FTA-ABS) HIV-1 RNA PCR copies/ml HIV-1 RNA (PCR) log Crossmatch 10/11/18 10/11/18 10/11/18 02:55 02:55 03:34 WBC RBC 2.35 L Hgb 7.7 L Hct 22.9 L MCV 98 H MCH 33 H MCHC RDW 19.9 H Plt Count 23 L Seg Neuts % (Manual) 75.0 H Lymphocytes % (Manual) 11.0 L Monocytes % (Manual) Eosinophils % (Manual) Basophils % (Manual) Nucleated RBC % Seg Neutrophils # Man Abs Lymphs (Manual) Lymphocytes # (Manual) 1.0 L Monocytes # (Manual) Eosinophils # (Manual) Basophils # (Manual) PT INR POC ABG pH POC ABG pCO2 POC ABG pO2 Sodium Potassium 5.3 H D Chloride Carbon Dioxide 14 L BUN 74 H Creatinine 5.4 H Glucose 126 H POC Glucose Lactic Acid 5.30 H* Uric Acid Calcium 7.8 L D Phosphorus Magnesium TIBC Ferritin Total Bilirubin 1.90 H Direct Bilirubin AST 306 H ALT 89 H Alkaline Phosphatase 246 H Lactate Dehydrogenase Troponin T NT-Pro-B Natriuret Pep Total Protein Albumin 3.4 L Triglycerides Cholesterol LDL Cholesterol Direct Vitamin B12 Urine Creatinine Urine Total Protein Lymph Enumerat CD4/CD8 Absolute CD3 Count % CD4 Cells Absolute CD4 Count % CD8 Cells Absolute CD19 Count T.pallidum Ab (FTA-ABS) HIV-1 RNA PCR copies/ml HIV-1 RNA (PCR) log Crossmatch 10/11/18 10/11/18 10/11/18 03:34 05:47 05:48 WBC RBC Hgb Hct MCV MCH MCHC RDW Plt Count Seg Neuts % (Manual) Lymphocytes % (Manual) Monocytes % (Manual) Eosinophils % (Manual) Basophils % (Manual) Nucleated RBC % Seg Neutrophils # Man Abs Lymphs (Manual) Lymphocytes # (Manual) Monocytes # (Manual) Eosinophils # (Manual) Basophils # (Manual) PT INR POC ABG pH 7.491 H POC ABG pCO2 24.9 L POC ABG pO2 166 H Sodium Potassium 5.2 H Chloride Carbon Dioxide 16 L BUN 80 H Creatinine 5.5 H Glucose 63 L POC Glucose Lactic Acid 3.80 H* Uric Acid Calcium 7.9 L Phosphorus Magnesium TIBC Ferritin Total Bilirubin Direct Bilirubin AST ALT Alkaline Phosphatase Lactate Dehydrogenase Troponin T NT-Pro-B Natriuret Pep Total Protein Albumin Triglycerides Cholesterol LDL Cholesterol Direct Vitamin B12 Urine Creatinine Urine Total Protein Lymph Enumerat CD4/CD8 Absolute CD3 Count % CD4 Cells Absolute CD4 Count % CD8 Cells Absolute CD19 Count T.pallidum Ab (FTA-ABS) HIV-1 RNA PCR copies/ml HIV-1 RNA (PCR) log Crossmatch 10/11/18 10/11/18 10/11/18 09:56 17:34 17:34 WBC RBC Hgb Hct MCV MCH MCHC RDW Plt Count Seg Neuts % (Manual) Lymphocytes % (Manual) Monocytes % (Manual) Eosinophils % (Manual) Basophils % (Manual) Nucleated RBC % Seg Neutrophils # Man Abs Lymphs (Manual) Lymphocytes # (Manual) Monocytes # (Manual) Eosinophils # (Manual) Basophils # (Manual) PT INR POC ABG pH POC ABG pCO2 POC ABG pO2 Sodium Potassium 3.4 L D Chloride Carbon Dioxide 17 L BUN 97 H Creatinine 7.3 H Glucose 135 H POC Glucose Lactic Acid 2.60 H* 2.30 H* Uric Acid Calcium 7.9 L Phosphorus 5.80 H Magnesium 2.70 H TIBC Ferritin Total Bilirubin Direct Bilirubin AST ALT Alkaline Phosphatase Lactate Dehydrogenase Troponin T NT-Pro-B Natriuret Pep Total Protein Albumin Triglycerides Cholesterol LDL Cholesterol Direct Vitamin B12 Urine Creatinine Urine Total Protein Lymph Enumerat CD4/CD8 Absolute CD3 Count % CD4 Cells Absolute CD4 Count % CD8 Cells Absolute CD19 Count T.pallidum Ab (FTA-ABS) HIV-1 RNA PCR copies/ml HIV-1 RNA (PCR) log Crossmatch 10/11/18 10/11/18 10/11/18 17:35 17:36 17:36 WBC RBC Hgb Hct MCV MCH MCHC RDW Plt Count Seg Neuts % (Manual) Lymphocytes % (Manual) Monocytes % (Manual) Eosinophils % (Manual) Basophils % (Manual) Nucleated RBC % Seg Neutrophils # Man Abs Lymphs (Manual) 267 L Lymphocytes # (Manual) Monocytes # (Manual) Eosinophils # (Manual) Basophils # (Manual) PT INR POC ABG pH POC ABG pCO2 POC ABG pO2 Sodium Potassium Chloride Carbon Dioxide BUN Creatinine Glucose POC Glucose Lactic Acid Uric Acid 13.4 H Calcium Phosphorus Magnesium TIBC 236 L Ferritin 04543.0 H Total Bilirubin Direct Bilirubin AST ALT Alkaline Phosphatase Lactate Dehydrogenase Troponin T NT-Pro-B Natriuret Pep Total Protein Albumin Triglycerides Cholesterol LDL Cholesterol Direct Vitamin B12 Urine Creatinine Urine Total Protein Lymph Enumerat CD4/CD8 0.01 L Absolute CD3 Count 226 L % CD4 Cells 1 L Absolute CD4 Count 3 L % CD8 Cells 82 H Absolute CD19 Count 16 L T.pallidum Ab (FTA-ABS) HIV-1 RNA PCR copies/ml HIV-1 RNA (PCR) log Crossmatch 10/11/18 10/11/18 10/11/18 17:36 19:21 20:08 WBC RBC Hgb Hct MCV MCH MCHC RDW Plt Count Seg Neuts % (Manual) Lymphocytes % (Manual) Monocytes % (Manual) Eosinophils % (Manual) Basophils % (Manual) Nucleated RBC % Seg Neutrophils # Man Abs Lymphs (Manual) Lymphocytes # (Manual) Monocytes # (Manual) Eosinophils # (Manual) Basophils # (Manual) PT INR POC ABG pH POC ABG pCO2 POC ABG pO2 Sodium Potassium Chloride Carbon Dioxide 16 L BUN 99 H Creatinine 8.1 H Glucose 147 H POC Glucose Lactic Acid 2.60 H* Uric Acid Calcium 7.7 L Phosphorus Magnesium 2.60 H TIBC Ferritin Total Bilirubin Direct Bilirubin AST ALT Alkaline Phosphatase Lactate Dehydrogenase Troponin T NT-Pro-B Natriuret Pep Total Protein Albumin Triglycerides Cholesterol LDL Cholesterol Direct Vitamin B12 Urine Creatinine Urine Total Protein Lymph Enumerat CD4/CD8 Absolute CD3 Count % CD4 Cells Absolute CD4 Count % CD8 Cells Absolute CD19 Count T.pallidum Ab (FTA-ABS) HIV-1 RNA PCR copies/ml 075626 H HIV-1 RNA (PCR) log 5.51 H Crossmatch 10/11/18 10/11/18 10/12/18 21:32 23:01 04:29 WBC RBC Hgb Hct MCV MCH MCHC RDW Plt Count Seg Neuts % (Manual) Lymphocytes % (Manual) Monocytes % (Manual) Eosinophils % (Manual) Basophils % (Manual) Nucleated RBC % Seg Neutrophils # Man Abs Lymphs (Manual) Lymphocytes # (Manual) Monocytes # (Manual) Eosinophils # (Manual) Basophils # (Manual) PT INR POC ABG pH 7.493 H POC ABG pCO2 23.1 L POC ABG pO2 176 H Sodium Potassium Chloride Carbon Dioxide BUN Creatinine Glucose POC Glucose Lactic Acid 2.60 H* 3.20 H* Uric Acid Calcium Phosphorus Magnesium TIBC Ferritin Total Bilirubin Direct Bilirubin AST ALT Alkaline Phosphatase Lactate Dehydrogenase Troponin T NT-Pro-B Natriuret Pep Total Protein Albumin Triglycerides Cholesterol LDL Cholesterol Direct Vitamin B12 Urine Creatinine Urine Total Protein Lymph Enumerat CD4/CD8 Absolute CD3 Count % CD4 Cells Absolute CD4 Count % CD8 Cells Absolute CD19 Count T.pallidum Ab (FTA-ABS) HIV-1 RNA PCR copies/ml HIV-1 RNA (PCR) log Crossmatch 10/12/18 10/12/18 10/12/18 04:57 04:57 04:57 WBC 15.0 H RBC 1.75 L Hgb 5.6 L* Hct 16.7 L* D MCV 95 H MCH MCHC RDW 20.7 H Plt Count 49 L D Seg Neuts % (Manual) 90.0 H Lymphocytes % (Manual) 4.0 L Monocytes % (Manual) Eosinophils % (Manual) Basophils % (Manual) Nucleated RBC % 12.0 H Seg Neutrophils # Man 12.3 H Abs Lymphs (Manual) Lymphocytes # (Manual) 0.5 L Monocytes # (Manual) Eosinophils # (Manual) Basophils # (Manual) PT 18.0 H INR 1.39 H POC ABG pH POC ABG pCO2 POC ABG pO2 Sodium Potassium 3.0 L D Chloride Carbon Dioxide 15 L BUN 102 H Creatinine 8.8 H Glucose 110 H POC Glucose Lactic Acid Uric Acid Calcium 7.6 L Phosphorus 5.10 H Magnesium 2.50 H TIBC Ferritin Total Bilirubin Direct Bilirubin AST 667 H ALT 298 H Alkaline Phosphatase 154 H Lactate Dehydrogenase Troponin T NT-Pro-B Natriuret Pep Total Protein Albumin 2.8 L Triglycerides Cholesterol LDL Cholesterol Direct Vitamin B12 Urine Creatinine Urine Total Protein Lymph Enumerat CD4/CD8 Absolute CD3 Count % CD4 Cells Absolute CD4 Count % CD8 Cells Absolute CD19 Count T.pallidum Ab (FTA-ABS) HIV-1 RNA PCR copies/ml HIV-1 RNA (PCR) log Crossmatch 10/12/18 10/12/18 10/12/18 06:43 14:05 Unknown WBC 14.0 H RBC 2.76 L Hgb 5.8 L* 8.7 L Hct 17.2 L* 25.1 L D MCV MCH MCHC 35 H RDW 19.0 H Plt Count 53 L Seg Neuts % (Manual) Lymphocytes % (Manual) 5.0 L Monocytes % (Manual) Eosinophils % (Manual) Basophils % (Manual) Nucleated RBC % 40.0 H Seg Neutrophils # Man 9.0 H Abs Lymphs (Manual) Lymphocytes # (Manual) 0.7 L Monocytes # (Manual) Eosinophils # (Manual) Basophils # (Manual) PT INR POC ABG pH POC ABG pCO2 POC ABG pO2 Sodium Potassium Chloride Carbon Dioxide BUN Creatinine Glucose POC Glucose Lactic Acid Uric Acid Calcium Phosphorus Magnesium TIBC Ferritin Total Bilirubin Direct Bilirubin AST ALT Alkaline Phosphatase Lactate Dehydrogenase Troponin T NT-Pro-B Natriuret Pep Total Protein Albumin Triglycerides Cholesterol LDL Cholesterol Direct Vitamin B12 Urine Creatinine Urine Total Protein Lymph Enumerat CD4/CD8 Absolute CD3 Count % CD4 Cells Absolute CD4 Count % CD8 Cells Absolute CD19 Count T.pallidum Ab (FTA-ABS) Reactive H HIV-1 RNA PCR copies/ml HIV-1 RNA (PCR) log Crossmatch 10/13/18 10/13/18 10/13/18 03:40 03:40 03:40 WBC 11.5 H RBC 2.58 L Hgb 8.2 L Hct 22.9 L MCV MCH MCHC 36 H RDW 19.5 H Plt Count 123 L D Seg Neuts % (Manual) 93.0 H Lymphocytes % (Manual) 0 L Monocytes % (Manual) Eosinophils % (Manual) Basophils % (Manual) Nucleated RBC % 44.0 H Seg Neutrophils # Man 10.7 H Abs Lymphs (Manual) Lymphocytes # (Manual) 0.0 L Monocytes # (Manual) Eosinophils # (Manual) Basophils # (Manual) PT 15.6 H INR 1.17 H POC ABG pH POC ABG pCO2 POC ABG pO2 Sodium Potassium 3.3 L Chloride Carbon Dioxide 21 L BUN 51 H Creatinine 5.7 H Glucose 140 H POC Glucose Lactic Acid Uric Acid Calcium 7.9 L Phosphorus Magnesium TIBC Ferritin Total Bilirubin Direct Bilirubin AST 367 H ALT 238 H Alkaline Phosphatase 134 H Lactate Dehydrogenase Troponin T NT-Pro-B Natriuret Pep Total Protein 6.2 L Albumin 2.5 L Triglycerides Cholesterol LDL Cholesterol Direct Vitamin B12 Urine Creatinine Urine Total Protein Lymph Enumerat CD4/CD8 Absolute CD3 Count % CD4 Cells Absolute CD4 Count % CD8 Cells Absolute CD19 Count T.pallidum Ab (FTA-ABS) HIV-1 RNA PCR copies/ml HIV-1 RNA (PCR) log Crossmatch 10/13/18 10/13/18 10/14/18 04:10 04:43 04:34 WBC RBC 2.47 L Hgb 7.7 L Hct 21.9 L MCV MCH MCHC 35 H RDW 21.2 H Plt Count 40 L Seg Neuts % (Manual) Lymphocytes % (Manual) Monocytes % (Manual) Eosinophils % (Manual) Basophils % (Manual) Nucleated RBC % Seg Neutrophils # Man Abs Lymphs (Manual) Lymphocytes # (Manual) Monocytes # (Manual) Eosinophils # (Manual) Basophils # (Manual) PT INR POC ABG pH 7.522 H POC ABG pCO2 29.1 L POC ABG pO2 132 H Sodium Potassium Chloride Carbon Dioxide BUN Creatinine Glucose POC Glucose Lactic Acid Uric Acid Calcium Phosphorus Magnesium TIBC Ferritin Total Bilirubin Direct Bilirubin AST ALT Alkaline Phosphatase Lactate Dehydrogenase Troponin T NT-Pro-B Natriuret Pep Total Protein Albumin Triglycerides Cholesterol LDL Cholesterol Direct Vitamin B12 Urine Creatinine 30.8 H Urine Total Protein 75 H Lymph Enumerat CD4/CD8 Absolute CD3 Count % CD4 Cells Absolute CD4 Count % CD8 Cells Absolute CD19 Count T.pallidum Ab (FTA-ABS) HIV-1 RNA PCR copies/ml HIV-1 RNA (PCR) log Crossmatch 10/14/18 10/14/18 10/15/18 04:34 08:51 03:14 WBC RBC 2.36 L Hgb 7.5 L Hct 21.1 L MCV MCH MCHC 36 H RDW 21.9 H Plt Count 31 L Seg Neuts % (Manual) Lymphocytes % (Manual) 8.0 L Monocytes % (Manual) 9.0 H Eosinophils % (Manual) Basophils % (Manual) 2.0 H Nucleated RBC % 129.0 H Seg Neutrophils # Man Abs Lymphs (Manual) Lymphocytes # (Manual) 0.7 L Monocytes # (Manual) Eosinophils # (Manual) Basophils # (Manual) 0.2 H PT INR POC ABG pH POC ABG pCO2 POC ABG pO2 Sodium Potassium Chloride Carbon Dioxide BUN 35 H Creatinine 5.2 H Glucose 144 H POC Glucose Lactic Acid Uric Acid Calcium Phosphorus Magnesium TIBC Ferritin Total Bilirubin Direct Bilirubin AST ALT Alkaline Phosphatase Lactate Dehydrogenase Troponin T NT-Pro-B Natriuret Pep Total Protein Albumin Triglycerides Cholesterol LDL Cholesterol Direct Vitamin B12 912.3 H Urine Creatinine Urine Total Protein Lymph Enumerat CD4/CD8 Absolute CD3 Count % CD4 Cells Absolute CD4 Count % CD8 Cells Absolute CD19 Count T.pallidum Ab (FTA-ABS) HIV-1 RNA PCR copies/ml HIV-1 RNA (PCR) log Crossmatch 10/15/18 10/15/18 10/16/18 03:14 19:22 04:07 WBC RBC 2.08 L Hgb 6.5 L Hct 18.4 L* MCV MCH MCHC 35 H RDW 22.9 H Plt Count 68 L D Seg Neuts % (Manual) Lymphocytes % (Manual) Monocytes % (Manual) Eosinophils % (Manual) Basophils % (Manual) Nucleated RBC % Seg Neutrophils # Man Abs Lymphs (Manual) Lymphocytes # (Manual) Monocytes # (Manual) Eosinophils # (Manual) Basophils # (Manual) PT INR POC ABG pH 7.552 H POC ABG pCO2 34.8 L POC ABG pO2 195 H Sodium 147 H Potassium Chloride Carbon Dioxide BUN 59 H Creatinine 8.0 H D Glucose 153 H POC Glucose Lactic Acid Uric Acid Calcium 8.3 L Phosphorus Magnesium TIBC Ferritin Total Bilirubin Direct Bilirubin AST 179 H ALT 156 H Alkaline Phosphatase 130 H Lactate Dehydrogenase Troponin T NT-Pro-B Natriuret Pep Total Protein Albumin 2.7 L Triglycerides Cholesterol LDL Cholesterol Direct Vitamin B12 Urine Creatinine Urine Total Protein Lymph Enumerat CD4/CD8 Absolute CD3 Count % CD4 Cells Absolute CD4 Count % CD8 Cells Absolute CD19 Count T.pallidum Ab (FTA-ABS) HIV-1 RNA PCR copies/ml HIV-1 RNA (PCR) log Crossmatch 10/16/18 10/16/18 10/16/18 04:07 04:07 08:31 WBC RBC Hgb Hct MCV MCH MCHC RDW Plt Count Seg Neuts % (Manual) Lymphocytes % (Manual) Monocytes % (Manual) Eosinophils % (Manual) Basophils % (Manual) Nucleated RBC % Seg Neutrophils # Man Abs Lymphs (Manual) Lymphocytes # (Manual) Monocytes # (Manual) Eosinophils # (Manual) Basophils # (Manual) PT INR POC ABG pH POC ABG pCO2 POC ABG pO2 Sodium Potassium Chloride Carbon Dioxide BUN 50 H Creatinine 6.2 H Glucose 142 H POC Glucose Lactic Acid Uric Acid Calcium Phosphorus Magnesium TIBC Ferritin Total Bilirubin Direct Bilirubin AST 136 H 134 H ALT 106 H 107 H Alkaline Phosphatase Lactate Dehydrogenase Troponin T NT-Pro-B Natriuret Pep Total Protein Albumin 2.7 L 2.8 L Triglycerides Cholesterol LDL Cholesterol Direct Vitamin B12 Urine Creatinine Urine Total Protein Lymph Enumerat CD4/CD8 Absolute CD3 Count % CD4 Cells Absolute CD4 Count % CD8 Cells Absolute CD19 Count T.pallidum Ab (FTA-ABS) HIV-1 RNA PCR copies/ml HIV-1 RNA (PCR) log Crossmatch See Detail 10/16/18 10/17/18 10/17/18 11:24 04:20 07:53 WBC RBC 2.86 L Hgb 8.5 L Hct 25.1 L D MCV MCH MCHC RDW 19.0 H Plt Count 63 L Seg Neuts % (Manual) Lymphocytes % (Manual) 3.0 L Monocytes % (Manual) 14.0 H Eosinophils % (Manual) Basophils % (Manual) Nucleated RBC % 45.0 H Seg Neutrophils # Man 9.8 H Abs Lymphs (Manual) Lymphocytes # (Manual) 0.4 L Monocytes # (Manual) 2.0 H Eosinophils # (Manual) Basophils # (Manual) PT INR POC ABG pH POC ABG pCO2 POC ABG pO2 Sodium 146 H Potassium Chloride Carbon Dioxide 19 L BUN 82 H Creatinine 9.1 H Glucose 117 H POC Glucose 144 H Lactic Acid Uric Acid Calcium Phosphorus Magnesium TIBC Ferritin Total Bilirubin Direct Bilirubin AST 127 H ALT 84 H Alkaline Phosphatase Lactate Dehydrogenase Troponin T NT-Pro-B Natriuret Pep Total Protein Albumin 3.0 L Triglycerides Cholesterol LDL Cholesterol Direct Vitamin B12 Urine Creatinine Urine Total Protein Lymph Enumerat CD4/CD8 Absolute CD3 Count % CD4 Cells Absolute CD4 Count % CD8 Cells Absolute CD19 Count T.pallidum Ab (FTA-ABS) HIV-1 RNA PCR copies/ml HIV-1 RNA (PCR) log Crossmatch 10/17/18 10/18/18 10/18/18 07:53 05:03 05:03 WBC RBC Hgb Hct MCV MCH MCHC RDW Plt Count Seg Neuts % (Manual) Lymphocytes % (Manual) Monocytes % (Manual) Eosinophils % (Manual) Basophils % (Manual) Nucleated RBC % Seg Neutrophils # Man Abs Lymphs (Manual) Lymphocytes # (Manual) Monocytes # (Manual) Eosinophils # (Manual) Basophils # (Manual) PT INR POC ABG pH POC ABG pCO2 POC ABG pO2 Sodium 147 H Potassium 5.1 H Chloride Carbon Dioxide 19 L 19 L BUN 89 H 115 H Creatinine 9.5 H 12.0 H Glucose 122 H 210 H POC Glucose Lactic Acid Uric Acid Calcium Phosphorus Magnesium 3.10 H TIBC Ferritin Total Bilirubin Direct Bilirubin AST ALT Alkaline Phosphatase Lactate Dehydrogenase Troponin T NT-Pro-B Natriuret Pep Total Protein Albumin Triglycerides Cholesterol LDL Cholesterol Direct Vitamin B12 Urine Creatinine Urine Total Protein Lymph Enumerat CD4/CD8 Absolute CD3 Count % CD4 Cells Absolute CD4 Count % CD8 Cells Absolute CD19 Count T.pallidum Ab (FTA-ABS) HIV-1 RNA PCR copies/ml HIV-1 RNA (PCR) log Crossmatch 10/18/18 10/19/18 10/19/18 21:12 03:38 03:38 WBC RBC 2.45 L Hgb 7.5 L Hct 21.9 L MCV MCH MCHC RDW 21.3 H Plt Count 60 L Seg Neuts % (Manual) 81.0 H Lymphocytes % (Manual) 8.0 L Monocytes % (Manual) Eosinophils % (Manual) 6.0 H Basophils % (Manual) Nucleated RBC % 104.0 H Seg Neutrophils # Man Abs Lymphs (Manual) Lymphocytes # (Manual) 0.7 L Monocytes # (Manual) Eosinophils # (Manual) 0.5 H Basophils # (Manual) PT INR POC ABG pH POC ABG pCO2 POC ABG pO2 Sodium Potassium Chloride Carbon Dioxide BUN 74 H Creatinine 8.7 H Glucose 134 H POC Glucose 120 H Lactic Acid Uric Acid Calcium 8.1 L Phosphorus Magnesium TIBC Ferritin Total Bilirubin Direct Bilirubin AST ALT Alkaline Phosphatase Lactate Dehydrogenase Troponin T NT-Pro-B Natriuret Pep Total Protein Albumin Triglycerides Cholesterol LDL Cholesterol Direct Vitamin B12 Urine Creatinine Urine Total Protein Lymph Enumerat CD4/CD8 Absolute CD3 Count % CD4 Cells Absolute CD4 Count % CD8 Cells Absolute CD19 Count T.pallidum Ab (FTA-ABS) HIV-1 RNA PCR copies/ml HIV-1 RNA (PCR) log Crossmatch 10/20/18 10/20/18 10/20/18 04:13 13:07 16:01 WBC 12.8 H RBC 2.59 L Hgb 7.9 L Hct 23.7 L MCV MCH MCHC RDW 21.7 H Plt Count 125 L D Seg Neuts % (Manual) Lymphocytes % (Manual) Monocytes % (Manual) Eosinophils % (Manual) Basophils % (Manual) Nucleated RBC % Seg Neutrophils # Man Abs Lymphs (Manual) Lymphocytes # (Manual) Monocytes # (Manual) Eosinophils # (Manual) Basophils # (Manual) PT INR POC ABG pH POC ABG pCO2 POC ABG pO2 Sodium Potassium 5.8 H D Chloride 96.0 L Carbon Dioxide 19 L BUN 97 H Creatinine 10.4 H Glucose 134 H POC Glucose 139 H Lactic Acid Uric Acid Calcium 8.2 L Phosphorus Magnesium TIBC Ferritin Total Bilirubin Direct Bilirubin AST ALT Alkaline Phosphatase Lactate Dehydrogenase Troponin T NT-Pro-B Natriuret Pep Total Protein Albumin Triglycerides Cholesterol LDL Cholesterol Direct Vitamin B12 Urine Creatinine Urine Total Protein Lymph Enumerat CD4/CD8 Absolute CD3 Count % CD4 Cells Absolute CD4 Count % CD8 Cells Absolute CD19 Count T.pallidum Ab (FTA-ABS) HIV-1 RNA PCR copies/ml HIV-1 RNA (PCR) log Crossmatch 10/20/18 10/20/18 10/20/18 16:01 18:35 21:19 WBC RBC Hgb Hct MCV MCH MCHC RDW Plt Count Seg Neuts % (Manual) Lymphocytes % (Manual) Monocytes % (Manual) Eosinophils % (Manual) Basophils % (Manual) Nucleated RBC % Seg Neutrophils # Man Abs Lymphs (Manual) Lymphocytes # (Manual) Monocytes # (Manual) Eosinophils # (Manual) Basophils # (Manual) PT INR POC ABG pH 7.596 H 7.587 H POC ABG pCO2 30.2 L 30.0 L POC ABG pO2 62 L 71 L Sodium Potassium Chloride 96.8 L Carbon Dioxide BUN 28 H Creatinine 3.6 H D Glucose 127 H POC Glucose Lactic Acid Uric Acid Calcium Phosphorus Magnesium TIBC Ferritin Total Bilirubin Direct Bilirubin AST ALT Alkaline Phosphatase Lactate Dehydrogenase Troponin T NT-Pro-B Natriuret Pep Total Protein Albumin Triglycerides Cholesterol LDL Cholesterol Direct Vitamin B12 Urine Creatinine Urine Total Protein Lymph Enumerat CD4/CD8 Absolute CD3 Count % CD4 Cells Absolute CD4 Count % CD8 Cells Absolute CD19 Count T.pallidum Ab (FTA-ABS) HIV-1 RNA PCR copies/ml HIV-1 RNA (PCR) log Crossmatch 10/21/18 10/21/18 10/22/18 05:05 09:49 05:51 WBC RBC Hgb Hct MCV MCH MCHC RDW Plt Count Seg Neuts % (Manual) Lymphocytes % (Manual) Monocytes % (Manual) Eosinophils % (Manual) Basophils % (Manual) Nucleated RBC % Seg Neutrophils # Man Abs Lymphs (Manual) Lymphocytes # (Manual) Monocytes # (Manual) Eosinophils # (Manual) Basophils # (Manual) PT INR POC ABG pH 7.535 H POC ABG pCO2 32.0 L POC ABG pO2 57 L Sodium Potassium Chloride 96.7 L 95.9 L Carbon Dioxide 21 L BUN 44 H 71 H Creatinine 5.8 H D 7.9 H Glucose 140 H 132 H POC Glucose Lactic Acid Uric Acid Calcium 8.2 L 8.2 L Phosphorus Magnesium TIBC Ferritin Total Bilirubin Direct Bilirubin AST ALT Alkaline Phosphatase Lactate Dehydrogenase Troponin T NT-Pro-B Natriuret Pep Total Protein Albumin Triglycerides Cholesterol LDL Cholesterol Direct Vitamin B12 Urine Creatinine Urine Total Protein Lymph Enumerat CD4/CD8 Absolute CD3 Count % CD4 Cells Absolute CD4 Count % CD8 Cells Absolute CD19 Count T.pallidum Ab (FTA-ABS) HIV-1 RNA PCR copies/ml HIV-1 RNA (PCR) log Crossmatch 10/22/18 10/22/18 10/23/18 05:51 05:51 05:16 WBC RBC 2.51 L 2.23 L Hgb 7.7 L 6.8 L Hct 22.9 L 20.3 L MCV MCH MCHC RDW 22.4 H 22.1 H Plt Count 128 L Seg Neuts % (Manual) 86.0 H 78.0 H Lymphocytes % (Manual) 2.0 L 11.0 L Monocytes % (Manual) Eosinophils % (Manual) 7.0 H 6.0 H Basophils % (Manual) Nucleated RBC % 68.0 H 41.0 H Seg Neutrophils # Man 0.0 L 0.0 L Abs Lymphs (Manual) Lymphocytes # (Manual) 0.0 L 0.0 L Monocytes # (Manual) Eosinophils # (Manual) Basophils # (Manual) PT INR POC ABG pH POC ABG pCO2 POC ABG pO2 Sodium Potassium Chloride Carbon Dioxide BUN Creatinine Glucose POC Glucose Lactic Acid Uric Acid Calcium Phosphorus Magnesium TIBC Ferritin Total Bilirubin Direct Bilirubin AST ALT Alkaline Phosphatase Lactate Dehydrogenase 925 H Troponin T NT-Pro-B Natriuret Pep Total Protein Albumin Triglycerides Cholesterol LDL Cholesterol Direct Vitamin B12 Urine Creatinine Urine Total Protein Lymph Enumerat CD4/CD8 Absolute CD3 Count % CD4 Cells Absolute CD4 Count % CD8 Cells Absolute CD19 Count T.pallidum Ab (FTA-ABS) HIV-1 RNA PCR copies/ml HIV-1 RNA (PCR) log Crossmatch 10/23/18 10/23/18 05:16 09:12 WBC RBC Hgb Hct MCV MCH MCHC RDW Plt Count Seg Neuts % (Manual) Lymphocytes % (Manual) Monocytes % (Manual) Eosinophils % (Manual) Basophils % (Manual) Nucleated RBC % Seg Neutrophils # Man Abs Lymphs (Manual) Lymphocytes # (Manual) Monocytes # (Manual) Eosinophils # (Manual) Basophils # (Manual) PT INR POC ABG pH POC ABG pCO2 POC ABG pO2 Sodium Potassium Chloride Carbon Dioxide BUN 37 H Creatinine 6.0 H Glucose 135 H POC Glucose Lactic Acid Uric Acid Calcium 8.0 L Phosphorus Magnesium TIBC Ferritin Total Bilirubin Direct Bilirubin AST ALT Alkaline Phosphatase Lactate Dehydrogenase Troponin T NT-Pro-B Natriuret Pep Total Protein Albumin Triglycerides Cholesterol LDL Cholesterol Direct Vitamin B12 Urine Creatinine Urine Total Protein Lymph Enumerat CD4/CD8 Absolute CD3 Count % CD4 Cells Absolute CD4 Count % CD8 Cells Absolute CD19 Count T.pallidum Ab (FTA-ABS) HIV-1 RNA PCR copies/ml HIV-1 RNA (PCR) log Crossmatch See Detail
--- NOTE | 2018-10-23 13:34 | Fluoroscopy Report ---
MODIFIED BARIUM SWALLOW History: dysphagia. Findings: Video radiography was provided by the radiologist for speech therapy to assess the swallowing mechanism. 1 fluoroscopic image was captured. Impression: Successful modified barium swallow.
--- NOTE | 2018-10-23 17:14 | Progress Note ---
Assessment and Plan Assessment and plan: patient is 43 YO Male with HIV, hypertension, previous stroke, Nicotine Dependence, presents to ED for evaluation. Patient was confused and lethargic and unable to provide history. He was seen and evaluated in ED and found to be in distress and unable to protect his airway and was therefore intubated, placed on ventilator in ER then admitted MR brain 10/11 1. Study somewhat degraded by motion artifact. 2 Areas of edema in the basal ganglia and thalami bilaterally, within the jamari and in the cerebral hemispheres bilaterally in the subcortical and deep white matter and in portions of the cortex. 3. Areas of encephalomalacia in the basal ganglia bilaterally with evidence of previous hemorrhage or mineral deposition. 4. Numerous small foci of acute infarct in the basal ganglia bilaterally, subinsular regions bilaterally and medial temporal lobes bilaterally and possibly in the occipital cortex bilaterally. The above findings may be secondary to an infectious or noninfectious etiology with a component of vasculopathy or vasculitis resulting in infarcts. Viral encephalopathies and lymphoma would need to be considered in this patient with history of HIV. Neuro ams acute metabolic encephalopathy improving /Acute CVA with Bilateral infarcts with edema Consulted Neurology, he was evaluated by DR. Valentine. Could be due to possible vasculitis - further workup pending Dysphagia -MBS 10/23, recommended pureed with nectar thickened liquids Hematology Anemia- stable, thrombocytopenia, leukocytosis, coagulopathy; now resolved -Status post platelet and prbc transfusion, the patient had only few schistocytes on smear, ADAMS13 91% activity ID HIV/AIDS, CD4 count 3, HIV viral load 320,000 acute bacterial PNA CMV, and toxo neg, CSF neg Whole blood cmv PCR was positive at 1374 -cont ganciciclover, cont mepron cont rocephin and vanc, ID input appreciated FEN/Renal SHRUTHI- ATN, Hyperkalemia, urinary retention sp SPC on 10/12 cont HD per nephrology, no signs of renal recovery Pulm acute hypoxic resp failure on MV> 96 hours self extubated 10/16, continue supplemental oxygen CVS /Hypertensive urgency and acute systolic CHF He was treated with Cardene drip which was weaned off. Optimize medications for CHF, fluid removal by dialysis CCT 33 mins History Interval history: Patient continues to have weakness of his voice, low-grade fevers Review of systems Constitutional: , no malaise, no joint pains CVS: No chest pain, no orthopnea, no dyspnea on exertion, no pedal edema GI: No abdominal pain, no diarrhea, no vomiting, no constipation Respiratory: No shortness of breath, no wheezing, no coughing Hospitalist Physical - Physical exam Narrative exam: General.: Appears well, no distress, nontoxic HEENT: Moist mucous membranes, extraocular muscles intact, no lymphadenopathy Neck: supple Cardiac: S1-S2 heard Lungs: clear to auscultation bilaterally Abdomen: soft , nontender, nondistended, bowel sounds positive Extremities: no edema clubbing or cyanosis Skin: no rash or lesions Neurologic: no gross focal deficits Psych: calm, and cooperative - Constitutional Vitals: Temp Pulse Resp BP Pulse Ox 99.7 F H 112 H 20 139/85 98 10/23/18 16:00 10/23/18 16:00 10/23/18 16:00 10/23/18 16:00 10/23/18 16:00 General appearance: Present: no acute distress Results - Labs CBC & Chem 7: 10/29/18 09:27 10/30/18 05:00 Labs: Laboratory Last Values WBC 6.2 K/mm3 (4.5-11.0) 10/23/18 05:16 RBC 2.23 M/mm3 (3.65-5.03) L 10/23/18 05:16 Hgb 6.8 gm/dl (11.8-15.2) L 10/23/18 05:16 Hct 20.3 % (35.5-45.6) L 10/23/18 05:16 MCV 91 fl (84-94) 10/23/18 05:16 MCH 30 pg (28-32) 10/23/18 05:16 MCHC 33 % (32-34) 10/23/18 05:16 RDW 22.1 % (13.2-15.2) H 10/23/18 05:16 Plt Count 166 K/mm3 (140-440) 10/23/18 05:16 Add Manual Diff Complete 10/23/18 05:16 Total Counted 100 10/23/18 05:16 Seg Neuts % (Manual) 78.0 % (40.0-70.0) H 10/23/18 05:16 Band Neutrophils % 2.0 % 10/23/18 05:16 Lymphocytes % (Manual) 11.0 % (13.4-35.0) L 10/23/18 05:16 Reactive Lymphs % (Man) 0 % 10/23/18 05:16 Monocytes % (Manual) 3.0 % (0.0-7.3) 10/23/18 05:16 Eosinophils % (Manual) 6.0 % (0.0-4.3) H 10/23/18 05:16 Basophils % (Manual) 0 % (0.0-1.8) 10/23/18 05:16 Metamyelocytes % 0 % 10/23/18 05:16 Myelocytes % 0 % 10/23/18 05:16 Promyelocytes % 0 % 10/23/18 05:16 Blast Cells % 0 % 10/23/18 05:16 Nucleated RBC % 41.0 % (0.0-0.9) H 10/23/18 05:16 Seg Neutrophils # Man 0.0 K/mm3 (1.8-7.7) L 10/23/18 05:16 Band Neutrophils # 0.0 K/mm3 10/23/18 05:16 Abs Lymphs (Manual) 267 cells/uL (850-3900) L 10/11/18 17:36 Lymphocytes # (Manual) 0.0 K/mm3 (1.2-5.4) L 10/23/18 05:16 Abs React Lymphs (Man) 0.0 K/mm3 10/23/18 05:16 Monocytes # (Manual) 0.0 K/mm3 (0.0-0.8) 10/23/18 05:16 Eosinophils # (Manual) 0.0 K/mm3 (0.0-0.4) 10/23/18 05:16 Basophils # (Manual) 0.0 K/mm3 (0.0-0.1) 10/23/18 05:16 Metamyelocytes # 0.0 K/mm3 10/23/18 05:16 Myelocytes # 0.0 K/mm3 10/23/18 05:16 Promyelocytes # 0.0 K/mm3 10/23/18 05:16 Blast Cells # 0.0 K/mm3 10/23/18 05:16 Pathologist Review 10/15/18 03:14 WBC Morphology Not Reportable 10/23/18 05:16 Hypersegmented Neuts Not Reportable 10/23/18 05:16 Hyposegmented Neuts Not Reportable 10/23/18 05:16 Hypogranular Neuts Not Reportable 10/23/18 05:16 Smudge Cells Not Reportable 10/23/18 05:16 Toxic Granulation Not Reportable 10/23/18 05:16 Toxic Vacuolation Not Reportable 10/23/18 05:16 Dohle Bodies Not Reportable 10/23/18 05:16 Pelger-Huet Anomaly Not Reportable 10/23/18 05:16 Kartik Rods Not Reportable 10/23/18 05:16 Platelet Estimate Appe 10/23/18 05:16 Clumped Platelets Not Reportable 10/23/18 05:16 Plt Clumps, EDTA Not Reportable 10/23/18 05:16 Large Platelets Not Reportable 10/23/18 05:16 Giant Platelets Not Reportable 10/23/18 05:16 Platelet Satelliting Not Reportable 10/23/18 05:16 Plt Morphology Comment Not Reportable 10/23/18 05:16 RBC Morphology Not Reportable 10/23/18 05:16 Dimorphic RBCs Not Reportable 10/23/18 05:16 Polychromasia 1+ 10/23/18 05:16 Hypochromasia Not Reportable 10/23/18 05:16 Poikilocytosis Not Reportable 10/23/18 05:16 Anisocytosis 1+ 10/23/18 05:16 Microcytosis Not Reportable 10/23/18 05:16 Macrocytosis Not Reportable 10/23/18 05:16 Spherocytes Not Reportable 10/23/18 05:16 Pappenheimer Bodies Not Reportable 10/23/18 05:16 Sickle Cells Not Reportable 10/23/18 05:16 Target Cells Not Reportable 10/23/18 05:16 Tear Drop Cells Not Reportable 10/23/18 05:16 Ovalocytes Few 10/23/18 05:16 Helmet Cells Not Reportable 10/23/18 05:16 [place] Bodies Not Reportable 10/23/18 05:16 [place] Rings Not Reportable 10/23/18 05:16 Jani Cells Not Reportable 10/23/18 05:16 Bite Cells Not Reportable 10/23/18 05:16 Crenated Cell Not Reportable 10/23/18 05:16 Elliptocytes Few 10/23/18 05:16 Acanthocytes (Spur) Not Reportable 10/23/18 05:16 Rouleaux Not Reportable 10/23/18 05:16 Hemoglobin C Crystals Not Reportable 10/23/18 05:16 Schistocytes Not Reportable 10/23/18 05:16 Malaria parasites Not Reportable 10/23/18 05:16 Jv Bodies Not Reportable 10/23/18 05:16 Hem Pathologist Commnt No 10/23/18 05:16 PT 14.5 Sec. (12.2-14.9) 10/15/18 00:59 INR 1.06 (0.87-1.13) 10/15/18 00:59 APTT 27.9 Sec. (24.2-36.6) 10/10/18 15:02 Thrombin Time 16.9 Sec. (15.1-19.6) 10/10/18 15:02 POC ABG pH 7.535 (7.35-7.45) H 10/21/18 09:49 POC ABG pCO2 32.0 (35-45) L 10/21/18 09:49 POC ABG pO2 57 (80-105) L 10/21/18 09:49 POC ABG HCO3 27.1 10/21/18 09:49 POC ABG Total CO2 28 10/21/18 09:49 POC ABG O2 Sat 93 10/21/18 09:49 POC ABG Base Excess 4 10/21/18 09:49 FiO2 21 % 10/21/18 09:49 Sodium 144 mmol/L (137-145) 10/23/18 05:16 Potassium 4.1 mmol/L (3.6-5.0) 10/23/18 05:16 Chloride 100.9 mmol/L (98-107) 10/23/18 05:16 Carbon Dioxide 22 mmol/L (22-30) 10/23/18 05:16 Anion Gap 25 mmol/L 10/23/18 05:16 BUN 37 mg/dL (9-20) H 10/23/18 05:16 Creatinine 6.0 mg/dL (0.8-1.5) H 10/23/18 05:16 Estimated GFR 13 ml/min 10/23/18 05:16 BUN/Creatinine Ratio 6 % 10/23/18 05:16 Glucose 135 mg/dL (75-100) H 10/23/18 05:16 POC Glucose 139 (70-105) H 10/20/18 13:07 Osmolality 338 Mosm/kg 10/11/18 17:35 Lactic Acid 1.80 mmol/L (0.7-2.0) 10/12/18 05:59 Uric Acid 13.4 mg/dL (3.5-7.6) H 10/11/18 17:36 Calcium 8.0 mg/dL (8.4-10.2) L 10/23/18 05:16 Phosphorus 5.10 mg/dL (2.5-4.5) H 10/12/18 04:57 Magnesium 3.10 mg/dL (1.7-2.3) H 10/18/18 05:03 Iron 147 ug/dL (49-181) 10/11/18 17:36 TIBC 236 mcg/dL (250-450) L 10/11/18 17:36 Ferritin 41711.0 ng/mL (13.0-400.0) H 10/11/18 17:35 Total Bilirubin 0.40 mg/dL (0.1-1.2) 10/17/18 04:20 Direct Bilirubin 0.2 mg/dL (0-0.2) 10/16/18 04:07 Indirect Bilirubin 0.3 mg/dL 10/16/18 04:07 AST 127 units/L (5-40) H 10/17/18 04:20 ALT 84 units/L (7-56) H 10/17/18 04:20 Alkaline Phosphatase 110 units/L (35-129) 10/17/18 04:20 Ammonia 25.0 umol/L (25-60) 10/17/18 14:59 Lactate Dehydrogenase 925 units/L (91-180) H 10/22/18 05:51 Troponin T 0.272 ng/mL (0.00-0.029) H* 10/10/18 18:07 NT-Pro-B Natriuret Pep 61736 pg/mL (0-450) H 10/10/18 15:42 Total Protein 7.1 g/dL (6.3-8.2) 10/17/18 04:20 Albumin 3.0 g/dL (3.9-5) L 10/17/18 04:20 Albumin/Globulin Ratio 0.7 % 10/17/18 04:20 Triglycerides 329 mg/dL (2-149) H 10/10/18 15:02 Cholesterol 234 mg/dL (50-199) H 10/10/18 15:02 LDL Cholesterol Direct 139 mg/dL (50-130) H 10/10/18 15:02 HDL Cholesterol 42 mg/dL (40-59) 10/10/18 15:02 Cholesterol/HDL Ratio 5.57 % 10/10/18 15:02 Vitamin B12 912.3 pg/mL (211-911) H 10/14/18 08:51 Folate 8.32 ng/mL (7.3-26.0) 10/14/18 08:51 Urine Creatinine 30.8 mg/dL (0.1-20.0) H 10/13/18 04:43 Urine Sodium 106 mmol/L 10/13/18 04:43 Urine Total Protein 75 mg/dL (5-11.8) H 10/13/18 04:43 CSF Appearance Clear 10/16/18 15:00 CSF Color Colorless 10/16/18 15:00 CSF WBC 4 /mm3 (1-10) 10/16/18 15:00 CSF RBC 113 /mm3 (0-0) 10/16/18 15:00 CSF Seg Neutrophils 8.0 % (0-6) 10/16/18 15:00 CSF Lymphocytes % 76.0 % (40-80) 10/16/18 15:00 CSF Reactive Lymphs 2.0 % 10/16/18 15:00 CSF Monocytes % 14.0 % (15-45) 10/16/18 15:00 CSF Eosinophils % 0 % 10/16/18 15:00 CSF Basophils 0 % 10/16/18 15:00 CSF Pathologist Review C 10/16/18 15:00 CSF Glucose 73 mg/dL 10/16/18 15:00 CSF Total Protein 55 mg/dL 10/16/18 15:00 CSF VDRL Nonreactive (Nonreactive) 10/16/18 15:00 Random Vancomycin 15.0 ug/mL (0-40.0) 10/23/18 07:32 Immunofix Electrophor see below 10/11/18 17:36 Lymph Enumerat CD4/CD8 0.01 (0.86-5.00) L 10/11/18 17:36 % CD3 Cells 85 % (57-85) 10/11/18 17:36 Absolute CD3 Count 226 cells/uL (840-3060) L 10/11/18 17:36 % CD4 Cells 1 % (30-61) L 10/11/18 17:36 Absolute CD4 Count 3 cells/uL (490-1740) L 10/11/18 17:36 % CD8 Cells 82 % (12-42) H 10/11/18 17:36 Absolute CD8 Count 228 cells/uL (180-1170) 10/11/18 17:36 % CD19 Cells 6 % (6-29) 10/11/18 17:36 Absolute CD19 Count 16 cells/uL (110-660) L 10/11/18 17:36 RPR Titer 1:32 10/11/18 17:37 RPR Reactive (Nonreactive) 10/11/18 17:37 T.pallidum Ab (FTA-ABS) Reactive (Nonreactive) H 10/12/18 Unknown 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 See scanned result 10/11/18 17:37 Hepatitis A IgM Ab Non-reactive (NonReactive) 10/11/18 17:34 Hep Bs Antigen Non-reactive (Negative) 10/11/18 17:34 Hep B Core IgM Ab Non-reactive (NonReactive) 10/11/18 17:34 Hepatitis C Antibody Non-reactive (NonReactive) 10/11/18 17:34 HIV-1 RNA PCR copies/ml [id number] Copies/mL H 10/11/18 17:36 HIV-1 RNA (PCR) log 5.51 Log cps/mL H 10/11/18 17:36 Toxoplasma IgG Ab <7.20 IU/mL (<7.20) 10/13/18 07:54 Miscellaneous Test Flexitest 1 10/16/18 15:00 Blood Type A POSITIVE 10/23/18 09:12 Antibody Screen Negative 10/23/18 09:12 Crossmatch See Detail 10/23/18 09:12 Nutrition/Malnutrition Assess - Dietary Evaluation Nutrition/Malnutrition Findings: Nutrition Notes Start: 10/11/18 11:14 Freq: Status: Active Protocol: Document 10/19/18 10:44 NOLAN (Rec: 10/19/18 10:52 NOLAN [email or web address] 1) Nutrition Notes Initial or Follow up Reassessment Current Diagnosis Acute Kidney Injury,Sepsis, Hypertension,Stroke Other Pertinent Diagnosis Acute encephalopathy, HIV/AIDS , Syphilis Current Diet TF - Nepro at 45ml/hr Labs/Tests BUN 87 Cr 8.7 Na 141 Pertinent Medications Reviewed Height 5 ft 9 in Weight 65.4 kg Springer Body Weight (kg) 72.72 BMI 21.2 Weight change and time frame Current wt obtained from bed scale Subjective/Other Information TF infusing at goal rate via DHT; pt tolerating. Percent of energy/protein needs met: 100% energy and pro Burn Absent Trauma Absent #1 Nutrition Diagnosis Inadequate oral intake Diagnosis Progress(for reassessment Continues documentation) Is patient on ventilator? No Is Patient Ambulatory and/or Out of Bed No REE-([place] Jeor-confined to bed) [phone] Calculation Used for Recommendations [facility] Additional Notes Pro needs 1-1.2g/k-78g/ day Fluid needs 1ml/kcal Nutrition Intervention Nutrition Support: Continue Nepro at 45 mL/hr. Provide 200ml water flush q4h. Kcal 1,944 Protein (gm) 87 Fluid (mL) 785 Goal #1 TF tolerance Goal #2 TF to meet 90-100% energy and pro needs Follow-Up By: 10/26/18 Additional Comments F/U: stable TF, wt, renal function
[2018-10-24] MEDS: DUONEB *Not for PRN Use IH SCH ×2 (04:09→08:09)
--- NOTE | 2018-10-24 07:39 | Event Note ---
Date: 10/24/18
[2018-10-24] MEDS: BROVANA NEBU IH SCH (08:09)
--- NOTE | 2018-10-24 08:33 | Hem/Onc Progress Note ---
Assessment and Plan 1. Anemia. At admission, hemoglobin was 8.1, later low and s/p Transfusion support. 2. Platelets at admission was 20. 3. White cell count was elevated. 4. PT/INR h/o slightly elevated. 5. Renal failure. 6. ALT elevated. 7. The patient has multiple medical issues. PLAN: I will ask for a smear evaluation. I will call the lab for same. Supportive care in the interim while we looked for primary etiology. 3/ - plt better - s/p transfusion d/w dr rain and dr carrillo 10/14 - low plt - rasta ctive bleed suprapubic catheter 10/15 - plt were rising and again going down' pt had got plt transfusion LDH high - [id number] ordered smear - ordererd LDH may be high in other causes too - renal etc 10/16 - d/w path - not many schistocytes on smear - ADAMTS 13 ordered extubated 10/17 - plt low - path review ordered d/w armin monsalve 10/18 - path report pending plt low - but no active bleeding 10/19 - pt more alert - follows commands no bleeding 10/20 pt SOB - d/w Dr Monsalve and RN plt low - but no bleeding NGT+ more awake 10/21 - pt in [facility] plt >100 - more awake 10/22 - clinically better - moves all 4 limbs 10/23 - clinically stable - prbc suport 10/24 - as per RN -pt passed barium - for thickened diet pt has suprapuic got PRBC plt improving - Patient Problems (1) Thrombocytopenia associated with AIDS Current Visit: Yes Status: Acute Subjective Date of service: 10/24/18 Principal diagnosis: anemia - low plt Interval history: s/p prbc - as per RN - pt had barium swallow Objective - Constitutional Vitals: Last Vital Signs Temp 100.5 F H 10/24/18 04:00 Pulse 109 H 10/24/18 08:10 Resp 28 H 10/24/18 08:10 BP 151/92 10/24/18 07:00 Pulse Ox 100 10/24/18 08:11 Pain Intensity (0-10): denies any pain General appearance: no acute distress Performance status: 4-completely disabled - EENT Eyes: EOM intact ENT: other (ngt) Lymph node exam: negative cervical - Respiratory Respiratory effort: Positive: normal Respiratory: bilateral: CTA - Cardiovascular Heart Sounds: Present: S1 & S2 Extremities: No edema - Gastrointestinal General gastrointestinal: Present: soft, other (suprapubic cath) Rectal Exam: deferred - Genitourinary Male genitourinary: Present: deferred - Integumentary Integumentary: warm - Musculoskeletal Musculoskeletal: generalized weakness - Neurologic Neurologic: moves all extremities - Labs Lab Results: Laboratory Results - last 24 hr 10/16/18 10/23/18 10/23/18 08:31 07:32 09:12 Random Vancomycin 15.0 Blood Type A POSITIVE Antibody Screen Negative Crossmatch See Detail See Detail Medications & Allergies - Medications Allergies/Adverse Reactions: Allergies Sulfa (Sulfonamide Antibiotics) Allergy (Verified 10/10/18 16:54) Unknown Home Medications: Home Medications Medication Instructions Recorded Confirmed Last Taken Type Acetaminophen [Tylenol] 1,000 mg PO Q6HR 10/10/18 10/10/18 Unknown History Amlodipine Besylate [Norvasc] 10 mg PO QDAY 10/10/18 10/10/18 Unknown History Aspirin [Adult Aspirin] 81 mg PO DAILY 10/10/18 10/10/18 Unknown History Atorvastatin [Lipitor Tab] 80 mg PO DAILY 10/10/18 10/10/18 Unknown History Losartan [Cozaar] 100 mg PO QDAY 10/10/18 10/10/18 Unknown History Multivitamin [Multiple Vitamins] 1 each PO DAILY 10/10/18 10/10/18 Unknown History hydroCHLOROthiazide [HCTZ] 25 mg PO QDAY 10/10/18 10/10/18 Unknown History Active Medications: Generic Name Dose Route Start Last Admin Trade Name Brandonq PRN Reason Stop Dose Admin Acetaminophen 500 mg 10/16/18 10:02 10/21/18 23:30 Tylenol PO 500 mg Q6H PRN Administration Fever >101 Albuterol 2.5 mg 10/10/18 18:12 Proventil IH Q3HRT PRN Shortness Of Breath Albuterol/Ipratropium 1 ampul 10/20/18 14:30 10/24/18 08:09 Duoneb *Not For Prn Use* IH Not Given Q6HRT RUBI Amlodipine Besylate 10 mg 10/11/18 10:00 10/23/18 09:52 Norvasc PO 10 mg QDAY RUBI Administration Lipase/Protease/Amylase 1 each 10/11/18 12:58 Pancrebecka Reed 10,500 Unit FEEDTUBE PRN PRN For Clogged Feeding Tube Arformoterol Tartrate 15 mcg 10/20/18 11:45 10/24/18 08:09 Blade Menendez IH 15 mcg Q12HRT RUBI Administration Atovaquone 750 mg 10/18/18 10:00 10/23/18 22:01 Mepron PO 750 mg BID RUBI Administration Carvedilol 12.5 mg 10/22/18 22:00 10/23/18 22:02 Coreg PO 12.5 mg BID RUBI Administration Haloperidol Lactate 5 mg 10/13/18 19:45 10/20/18 21:08 Haldol IV 5 mg Q6H PRN Administration Agitation Hydralazine HCl 10 mg 10/12/18 15:50 10/18/18 06:36 Apresoline IV 10 mg Q4HR PRN Administration SBP>175 or DBP>115 Hydrophilic Ointment 1 applic 10/10/18 17:53 Vaseline Lip Therapy TP Q2HR PRN Dry Lips Ganciclovir Sodium 80 mg/ 250 mls @ 100 mls/hr 10/15/18 20:00 10/22/18 20:07 Sodium Chloride IV 100 mls/hr MoWeFr RUBI Administration Sodium Chloride 100 mls @ 999 mls/hr 10/20/18 09:54 Nacl 0.9% IV CHON PRN Hypotension Ceftriaxone Sodium 2 gm in 100 mls @ 200 mls/hr 10/21/18 15:00 10/23/18 09:53 Rocephin/Ns 2 Gm/100 Ml IV 200 mls/hr Q24HR RUBI Administration Protocol Lansoprazole 30 mg 10/15/18 10:00 10/23/18 22:04 Prevacid Solutab FEEDTUBE 30 mg BID RUBI Administration Lorazepam 1 mg 10/13/18 19:48 10/21/18 04:09 Ativan IV 1 mg Q4H PRN Administration agitation Metoprolol Tartrate 5 mg 10/18/18 14:05 Lopressor IV Q6HR PRN Tachyarrhythmias Multi-Ingred Cream/Lotion/Oil/Oint 1 applic 10/10/18 17:53 Artificial Tears Ophth Oint OU Q4HR PRN Dry Eye(s) Multivitamins 1 each 10/11/18 10:00 10/23/18 09:54 Theragran Tab PO 1 each DAILY RUBI Administration Simple Syrup 15 ml 10/11/18 12:58 Simple Syrup FEEDTUBE PRN PRN Hypoglycemia Simple Syrup 30 ml 10/11/18 12:58 Simple Syrup FEEDTUBE PRN PRN Hypoglycemia Sodium Bicarbonate 325 mg 10/11/18 12:58 Sodium Bicarbonate FEEDTUBE PRN PRN For Clogged Feeding Tube Sodium Chloride 10 ml 10/10/18 22:00 10/23/18 22:05 Sodium Chloride Flush Syringe 10 Ml IV 10 ml BID RUBI Administration Sodium Chloride 10 ml 10/10/18 18:12 Sodium Chloride Flush Syringe 10 Ml IV PRN PRN LINE FLUSH
[2018-10-24] MEDS ORDERED: NACL 0.9% 500 ML 500 ML IV NR (10:02)
--- NOTE | 2018-10-24 10:03 | Progress Note ---
Assessment and Plan Assessment and plan: patient is 43 YO Male with HIV, hypertension, previous stroke, Nicotine Dependence, presents to ED for evaluation. Patient was confused and lethargic and unable to provide history. He was seen and evaluated in ED and found to be in distress and unable to protect his airway and was therefore intubated, placed on ventilator in ER then admitted MR brain 10/11 1. Study somewhat degraded by motion artifact. 2 Areas of edema in the basal ganglia and thalami bilaterally, within the jamari and in the cerebral hemispheres bilaterally in the subcortical and deep white matter and in portions of the cortex. 3. Areas of encephalomalacia in the basal ganglia bilaterally with evidence of previous hemorrhage or mineral deposition. 4. Numerous small foci of acute infarct in the basal ganglia bilaterally, subinsular regions bilaterally and medial temporal lobes bilaterally and possibly in the occipital cortex bilaterally. The above findings may be secondary to an infectious or noninfectious etiology with a component of vasculopathy or vasculitis resulting in infarcts. Viral encephalopathies and lymphoma would need to be considered in this patient with history of HIV. Neuro ams acute metabolic encephalopathy improving /Acute CVA with Bilateral infarcts with edema Consulted Neurology, he was evaluated by DR. Valentine. Could be due to possible vasculitis - further workup pending Dysphagia/ moderate malnutrition -MBS 10/23, recommended pureed with nectar thickened liquids Hematology Anemia- stable, thrombocytopenia, leukocytosis, coagulopathy; now resolved -Status post platelet and prbc transfusion, the patient had only few schistocytes on smear, ADAMS13 91% activity ID HIV/AIDS, CD4 count 3, HIV viral load 320,000 acute bacterial PNA, CMV viremia toxo neg, CSF neg Whole blood cmv PCR was positive at 1374 abx and antiviral per ID FEN/Renal SHRUTHI- ATN, Hyperkalemia, urinary retention sp SPC on 10/12 cont HD per nephrology, no signs of renal recovery Pulm acute hypoxic resp failure on MV> 96 hours self extubated 10/16, continue supplemental oxygen CVS /Hypertensive urgency and acute systolic CHF He was treated with Cardene drip which was weaned off. Optimize medications for CHF on coreg, no mik due to high K, fluid removal by dialysis CCT 33 mins History Interval history: Patient continues to have weakness of his voice, low-grade fevers Review of systems Constitutional: , no malaise, no joint pains CVS: No chest pain, no orthopnea, no dyspnea on exertion, no pedal edema GI: No abdominal pain, no diarrhea, no vomiting, no constipation Respiratory: No shortness of breath, no wheezing, no coughing Hospitalist Physical - Physical exam Narrative exam: General.: Appears well, no distress, nontoxic HEENT: Moist mucous membranes, extraocular muscles intact, no lymphadenopathy Neck: supple Cardiac: S1-S2 heard Lungs: clear to auscultation bilaterally Abdomen: soft , nontender, nondistended, bowel sounds positive Extremities: no edema clubbing or cyanosis Skin: no rash or lesions Neurologic: no gross focal deficits Psych: calm, and cooperative - Constitutional Vitals: Temp Pulse Resp BP Pulse Ox 100.0 F H 107 H 27 H 146/99 100 10/24/18 08:20 10/24/18 09:15 10/24/18 08:20 10/24/18 09:15 10/24/18 08:11 General appearance: Present: no acute distress Results - Labs CBC & Chem 7: 10/29/18 09:27 10/30/18 05:00 Labs: Laboratory Last Values WBC 6.2 K/mm3 (4.5-11.0) 10/23/18 05:16 RBC 2.23 M/mm3 (3.65-5.03) L 10/23/18 05:16 Hgb 6.8 gm/dl (11.8-15.2) L 10/23/18 05:16 Hct 20.3 % (35.5-45.6) L 10/23/18 05:16 MCV 91 fl (84-94) 10/23/18 05:16 MCH 30 pg (28-32) 10/23/18 05:16 MCHC 33 % (32-34) 10/23/18 05:16 RDW 22.1 % (13.2-15.2) H 10/23/18 05:16 Plt Count 166 K/mm3 (140-440) 10/23/18 05:16 Add Manual Diff Complete 10/23/18 05:16 Total Counted 100 10/23/18 05:16 Seg Neuts % (Manual) 78.0 % (40.0-70.0) H 10/23/18 05:16 Band Neutrophils % 2.0 % 10/23/18 05:16 Lymphocytes % (Manual) 11.0 % (13.4-35.0) L 10/23/18 05:16 Reactive Lymphs % (Man) 0 % 10/23/18 05:16 Monocytes % (Manual) 3.0 % (0.0-7.3) 10/23/18 05:16 Eosinophils % (Manual) 6.0 % (0.0-4.3) H 10/23/18 05:16 Basophils % (Manual) 0 % (0.0-1.8) 10/23/18 05:16 Metamyelocytes % 0 % 10/23/18 05:16 Myelocytes % 0 % 10/23/18 05:16 Promyelocytes % 0 % 10/23/18 05:16 Blast Cells % 0 % 10/23/18 05:16 Nucleated RBC % 41.0 % (0.0-0.9) H 10/23/18 05:16 Seg Neutrophils # Man 0.0 K/mm3 (1.8-7.7) L 10/23/18 05:16 Band Neutrophils # 0.0 K/mm3 10/23/18 05:16 Abs Lymphs (Manual) 267 cells/uL (850-3900) L 10/11/18 17:36 Lymphocytes # (Manual) 0.0 K/mm3 (1.2-5.4) L 10/23/18 05:16 Abs React Lymphs (Man) 0.0 K/mm3 10/23/18 05:16 Monocytes # (Manual) 0.0 K/mm3 (0.0-0.8) 10/23/18 05:16 Eosinophils # (Manual) 0.0 K/mm3 (0.0-0.4) 10/23/18 05:16 Basophils # (Manual) 0.0 K/mm3 (0.0-0.1) 10/23/18 05:16 Metamyelocytes # 0.0 K/mm3 10/23/18 05:16 Myelocytes # 0.0 K/mm3 10/23/18 05:16 Promyelocytes # 0.0 K/mm3 10/23/18 05:16 Blast Cells # 0.0 K/mm3 10/23/18 05:16 Pathologist Review 10/15/18 03:14 WBC Morphology Not Reportable 10/23/18 05:16 Hypersegmented Neuts Not Reportable 10/23/18 05:16 Hyposegmented Neuts Not Reportable 10/23/18 05:16 Hypogranular Neuts Not Reportable 10/23/18 05:16 Smudge Cells Not Reportable 10/23/18 05:16 Toxic Granulation Not Reportable 10/23/18 05:16 Toxic Vacuolation Not Reportable 10/23/18 05:16 Dohle Bodies Not Reportable 10/23/18 05:16 Pelger-Huet Anomaly Not Reportable 10/23/18 05:16 Kartik Rods Not Reportable 10/23/18 05:16 Platelet Estimate Appe 10/23/18 05:16 Clumped Platelets Not Reportable 10/23/18 05:16 Plt Clumps, EDTA Not Reportable 10/23/18 05:16 Large Platelets Not Reportable 10/23/18 05:16 Giant Platelets Not Reportable 10/23/18 05:16 Platelet Satelliting Not Reportable 10/23/18 05:16 Plt Morphology Comment Not Reportable 10/23/18 05:16 RBC Morphology Not Reportable 10/23/18 05:16 Dimorphic RBCs Not Reportable 10/23/18 05:16 Polychromasia 1+ 10/23/18 05:16 Hypochromasia Not Reportable 10/23/18 05:16 Poikilocytosis Not Reportable 10/23/18 05:16 Anisocytosis 1+ 10/23/18 05:16 Microcytosis Not Reportable 10/23/18 05:16 Macrocytosis Not Reportable 10/23/18 05:16 Spherocytes Not Reportable 10/23/18 05:16 Pappenheimer Bodies Not Reportable 10/23/18 05:16 Sickle Cells Not Reportable 10/23/18 05:16 Target Cells Not Reportable 10/23/18 05:16 Tear Drop Cells Not Reportable 10/23/18 05:16 Ovalocytes Few 10/23/18 05:16 Helmet Cells Not Reportable 10/23/18 05:16 Smith-[place] Bodies Not Reportable 10/23/18 05:16 Mohler Rings Not Reportable 10/23/18 05:16 [place] Cells Not Reportable 10/23/18 05:16 Bite Cells Not Reportable 10/23/18 05:16 Crenated Cell Not Reportable 10/23/18 05:16 Elliptocytes Few 10/23/18 05:16 Acanthocytes (Spur) Not Reportable 10/23/18 05:16 Rouleaux Not Reportable 10/23/18 05:16 Hemoglobin C Crystals Not Reportable 10/23/18 05:16 Schistocytes Not Reportable 10/23/18 05:16 Malaria parasites Not Reportable 10/23/18 05:16 Jv Bodies Not Reportable 10/23/18 05:16 Hem Pathologist Commnt No 10/23/18 05:16 PT 14.5 Sec. (12.2-14.9) 10/15/18 00:59 INR 1.06 (0.87-1.13) 10/15/18 00:59 APTT 27.9 Sec. (24.2-36.6) 10/10/18 15:02 Thrombin Time 16.9 Sec. (15.1-19.6) 10/10/18 15:02 POC ABG pH 7.535 (7.35-7.45) H 10/21/18 09:49 POC ABG pCO2 32.0 (35-45) L 10/21/18 09:49 POC ABG pO2 57 (80-105) L 10/21/18 09:49 POC ABG HCO3 27.1 10/21/18 09:49 POC ABG Total CO2 28 10/21/18 09:49 POC ABG O2 Sat 93 10/21/18 09:49 POC ABG Base Excess 4 10/21/18 09:49 FiO2 21 % 10/21/18 09:49 Sodium 144 mmol/L (137-145) 10/23/18 05:16 Potassium 4.1 mmol/L (3.6-5.0) 10/23/18 05:16 Chloride 100.9 mmol/L (98-107) 10/23/18 05:16 Carbon Dioxide 22 mmol/L (22-30) 10/23/18 05:16 Anion Gap 25 mmol/L 10/23/18 05:16 BUN 37 mg/dL (9-20) H 10/23/18 05:16 Creatinine 6.0 mg/dL (0.8-1.5) H 10/23/18 05:16 Estimated GFR 13 ml/min 10/23/18 05:16 BUN/Creatinine Ratio 6 % 10/23/18 05:16 Glucose 135 mg/dL (75-100) H 10/23/18 05:16 POC Glucose 139 (70-105) H 10/20/18 13:07 Osmolality 338 Mosm/kg 10/11/18 17:35 Lactic Acid 1.80 mmol/L (0.7-2.0) 10/12/18 05:59 Uric Acid 13.4 mg/dL (3.5-7.6) H 10/11/18 17:36 Calcium 8.0 mg/dL (8.4-10.2) L 10/23/18 05:16 Phosphorus 5.10 mg/dL (2.5-4.5) H 10/12/18 04:57 Magnesium 3.10 mg/dL (1.7-2.3) H 10/18/18 05:03 Iron 147 ug/dL (49-181) 10/11/18 17:36 TIBC 236 mcg/dL (250-450) L 10/11/18 17:36 Ferritin 45799.0 ng/mL (13.0-400.0) H 10/11/18 17:35 Total Bilirubin 0.40 mg/dL (0.1-1.2) 10/17/18 04:20 Direct Bilirubin 0.2 mg/dL (0-0.2) 10/16/18 04:07 Indirect Bilirubin 0.3 mg/dL 10/16/18 04:07 AST 127 units/L (5-40) H 10/17/18 04:20 ALT 84 units/L (7-56) H 10/17/18 04:20 Alkaline Phosphatase 110 units/L (35-129) 10/17/18 04:20 Ammonia 25.0 umol/L (25-60) 10/17/18 14:59 Lactate Dehydrogenase 925 units/L (91-180) H 10/22/18 05:51 Troponin T 0.272 ng/mL (0.00-0.029) H* 10/10/18 18:07 NT-Pro-B Natriuret Pep 64795 pg/mL (0-450) H 10/10/18 15:42 Total Protein 7.1 g/dL (6.3-8.2) 10/17/18 04:20 Albumin 3.0 g/dL (3.9-5) L 10/17/18 04:20 Albumin/Globulin Ratio 0.7 % 10/17/18 04:20 Triglycerides 329 mg/dL (2-149) H 10/10/18 15:02 Cholesterol 234 mg/dL (50-199) H 10/10/18 15:02 LDL Cholesterol Direct 139 mg/dL (50-130) H 10/10/18 15:02 HDL Cholesterol 42 mg/dL (40-59) 10/10/18 15:02 Cholesterol/HDL Ratio 5.57 % 10/10/18 15:02 Vitamin B12 912.3 pg/mL (211-911) H 10/14/18 08:51 Folate 8.32 ng/mL (7.3-26.0) 10/14/18 08:51 Urine Creatinine 30.8 mg/dL (0.1-20.0) H 10/13/18 04:43 Urine Sodium 106 mmol/L 10/13/18 04:43 Urine Total Protein 75 mg/dL (5-11.8) H 10/13/18 04:43 CSF Appearance Clear 10/16/18 15:00 CSF Color Colorless 10/16/18 15:00 CSF WBC 4 /mm3 (1-10) 10/16/18 15:00 CSF RBC 113 /mm3 (0-0) 10/16/18 15:00 CSF Seg Neutrophils 8.0 % (0-6) 10/16/18 15:00 CSF Lymphocytes % 76.0 % (40-80) 10/16/18 15:00 CSF Reactive Lymphs 2.0 % 10/16/18 15:00 CSF Monocytes % 14.0 % (15-45) 10/16/18 15:00 CSF Eosinophils % 0 % 10/16/18 15:00 CSF Basophils 0 % 10/16/18 15:00 CSF Pathologist Review C 10/16/18 15:00 CSF Glucose 73 mg/dL 10/16/18 15:00 CSF Total Protein 55 mg/dL 10/16/18 15:00 CSF VDRL Nonreactive (Nonreactive) 10/16/18 15:00 Random Vancomycin 15.0 ug/mL (0-40.0) 10/23/18 07:32 Immunofix Electrophor see below 10/11/18 17:36 Lymph Enumerat CD4/CD8 0.01 (0.86-5.00) L 10/11/18 17:36 % CD3 Cells 85 % (57-85) 10/11/18 17:36 Absolute CD3 Count 226 cells/uL (840-3060) L 10/11/18 17:36 % CD4 Cells 1 % (30-61) L 10/11/18 17:36 Absolute CD4 Count 3 cells/uL (490-1740) L 10/11/18 17:36 % CD8 Cells 82 % (12-42) H 10/11/18 17:36 Absolute CD8 Count 228 cells/uL (180-1170) 10/11/18 17:36 % CD19 Cells 6 % (6-29) 10/11/18 17:36 Absolute CD19 Count 16 cells/uL (110-660) L 10/11/18 17:36 RPR Titer 1:32 10/11/18 17:37 RPR Reactive (Nonreactive) 10/11/18 17:37 T.pallidum Ab (FTA-ABS) Reactive (Nonreactive) H 10/12/18 Unknown 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 See scanned result 10/11/18 17:37 Hepatitis A IgM Ab Non-reactive (NonReactive) 10/11/18 17:34 Hep Bs Antigen Non-reactive (Negative) 10/11/18 17:34 Hep B Core IgM Ab Non-reactive (NonReactive) 10/11/18 17:34 Hepatitis C Antibody Non-reactive (NonReactive) 10/11/18 17:34 HIV-1 RNA PCR copies/ml [id number] Copies/mL H 10/11/18 17:36 HIV-1 RNA (PCR) log 5.51 Log cps/mL H 10/11/18 17:36 Toxoplasma IgG Ab <7.20 IU/mL (<7.20) 10/13/18 07:54 Miscellaneous Test Flexitest 1 10/16/18 15:00 Blood Type A POSITIVE 10/23/18 09:12 Antibody Screen Negative 10/23/18 09:12 Crossmatch See Detail 10/23/18 09:12 Nutrition/Malnutrition Assess - Dietary Evaluation Nutrition/Malnutrition Findings: Nutrition Notes Start: 10/11/18 11:14 Freq: Status: Active Protocol: Document 10/19/18 10:44 NOLAN (Rec: 10/19/18 10:52 NOLAN [email or web address]) Nutrition Notes Initial or Follow up Reassessment Current Diagnosis Acute Kidney Injury,Sepsis, Hypertension,Stroke Other Pertinent Diagnosis Acute encephalopathy, HIV/AIDS , Syphilis Current Diet TF - Nepro at 45ml/hr Labs/Tests BUN 87 Cr 8.7 Na 141 Pertinent Medications Reviewed Height 5 ft 9 in Weight 65.4 kg [place] Body Weight (kg) 72.72 BMI 21.2 Weight change and time frame Current wt obtained from bed scale Subjective/Other Information TF infusing at goal rate via DHT; pt tolerating. Percent of energy/protein needs met: 100% energy and pro Burn Absent Trauma Absent #1 Nutrition Diagnosis Inadequate oral intake Diagnosis Progress(for reassessment Continues documentation) Is patient on ventilator? No Is Patient Ambulatory and/or Out of Bed No REE-([facility]-confined to bed) [phone] Calculation Used for Recommendations [facility] Additional Notes Pro needs 1-1.2g/k-78g/ day Fluid needs 1ml/kcal Nutrition Intervention Nutrition Support: Continue Nepro at 45 mL/hr. Provide 200ml water flush q4h. Kcal 1,944 Protein (gm) 87 Fluid (mL) 785 Goal #1 TF tolerance Goal #2 TF to meet 90-100% energy and pro needs Follow-Up By: 10/26/18 Additional Comments F/U: stable TF, wt, renal function
--- NOTE | 2018-10-24 10:04 | Progress Note ---
Subjective Principal diagnosis: anemia - low plt Interval history: Patient was seen today for follow-up on multiple renal related issues Patient has been tolerating dialysis treatment fairly well Vitals labs intake output medications were reviewed Social history: Reviewed Allergies: Reviewed Family history: Reviewed Physical examination HEENT: Oral mucosa moist no pallor or icterus Neck: Supple no JVD Chest: Clear to auscultation anteriorly CVS: Regular rate and rhythm S1 and S2 heard Abdomen: Soft nontender no suprapubic masses no organomegaly appreciable Extremity: Dry skin less than 1+ peripheral edema Musculoskeletal: No joint effusion noted in knees and ankle Neurological: Alert awake Dermatology: No petechial rashes Psychiatry: No evidence of any agitation and aggression noted Assessment and plan Acute kidney injury in a patient who is 43-year-old and possibly may have underlying chronic kidney disease currently dialysis dependent due to severity of renal failure. Patient also does have echogenic kidney with history of HIV and poor compliance, Continue with hemodialysis Monday continue to monitor dialysis related labs Metabolic acidosis, hyperkalemia to monitor and follow Admitted with fever tachycardia systemic inflammatory response respiratory failure was intubated currently doing better Pancytopenia slowly improving in the setting of HIV AIDS CVA, noted during this admission Ejection fraction 45%/nonsustained ventricular tachycardia cardiology following Currently on tube feeding Severe protein calorie malnutrition patient needs to be in high protein diet We'll continue to follow and make recommendation from renal standpoint Objective - Vital Signs Vital signs: Vital Signs - 12hr 10/23/18 10/23/18 10/23/18 22:10 22:20 22:30 Temperature Pulse Rate 109 H 110 H 111 H Pulse Rate [ Bilateral Throughout] Pulse Rate [ From Monitor] Respiratory 24 24 28 H Rate Respiratory Rate [Bilateral Throughout] Blood Pressure 146/88 146/88 146/88 O2 Sat by Pulse 98 98 99 Oximetry 10/23/18 10/23/18 10/23/18 22:40 22:50 23:00 Temperature Pulse Rate 106 H 108 H 101 H Pulse Rate [ Bilateral Throughout] Pulse Rate [ From Monitor] Respiratory 25 H 24 22 Rate Respiratory Rate [Bilateral Throughout] Blood Pressure 146/88 146/88 128/69 O2 Sat by Pulse 98 98 95 Oximetry 10/23/18 10/23/18 10/23/18 23:10 23:20 23:30 Temperature Pulse Rate 107 H 105 H 102 H Pulse Rate [ Bilateral Throughout] Pulse Rate [ From Monitor] Respiratory 30 H 27 H 18 Rate Respiratory Rate [Bilateral Throughout] Blood Pressure 128/69 128/69 128/69 O2 Sat by Pulse 99 100 100 Oximetry 10/23/18 10/23/18 10/23/18 23:40 23:50 23:55 Temperature 99.5 F Pulse Rate 102 H 102 H 102 H Pulse Rate [ Bilateral Throughout] Pulse Rate [ From Monitor] Respiratory 24 27 H 19 Rate Respiratory Rate [Bilateral Throughout] Blood Pressure 128/69 128/69 134/86 O2 Sat by Pulse 98 97 99 Oximetry 10/24/18 10/24/18 10/24/18 00:00 00:10 00:20 Temperature 99.6 F 99.5 F Pulse Rate 101 H 101 H 102 H Pulse Rate [ Bilateral Throughout] Pulse Rate [ 102 H From Monitor] Respiratory 22 26 H 22 Rate Respiratory Rate [Bilateral Throughout] Blood Pressure 129/74 134/86 134/86 O2 Sat by Pulse 98 96 97 Oximetry 10/24/18 10/24/18 10/24/18 00:30 00:40 00:50 Temperature 99.5 F Pulse Rate 103 H 102 H 101 H Pulse Rate [ Bilateral Throughout] Pulse Rate [ From Monitor] Respiratory 20 20 23 Rate Respiratory Rate [Bilateral Throughout] Blood Pressure 129/74 129/74 122/80 O2 Sat by Pulse 99 99 97 Oximetry 10/24/18 10/24/18 10/24/18 01:00 01:10 01:20 Temperature Pulse Rate 108 H 108 H 103 H Pulse Rate [ Bilateral Throughout] Pulse Rate [ From Monitor] Respiratory 27 H 29 H 23 Rate Respiratory Rate [Bilateral Throughout] Blood Pressure 145/90 134/86 134/86 O2 Sat by Pulse 95 95 98 Oximetry 10/24/18 10/24/18 10/24/18 01:30 01:40 01:50 Temperature Pulse Rate 104 H 113 H 110 H Pulse Rate [ Bilateral Throughout] Pulse Rate [ From Monitor] Respiratory 22 24 29 H Rate Respiratory Rate [Bilateral Throughout] Blood Pressure 134/86 134/86 134/86 O2 Sat by Pulse 98 99 99 Oximetry 10/24/18 10/24/18 10/24/18 02:00 02:07 02:10 Temperature 98.4 F Pulse Rate 110 H 106 H Pulse Rate [ Bilateral Throughout] Pulse Rate [ From Monitor] Respiratory 32 H 27 H Rate Respiratory Rate [Bilateral Throughout] Blood Pressure 142/89 142/89 O2 Sat by Pulse 98 98 Oximetry 10/24/18 10/24/18 10/24/18 02:20 02:24 03:00 Temperature 98.6 F Pulse Rate 107 H 111 H Pulse Rate [ Bilateral Throughout] Pulse Rate [ From Monitor] Respiratory 30 H 37 H Rate Respiratory Rate [Bilateral Throughout] Blood Pressure 142/89 147/95 O2 Sat by Pulse 99 95 Oximetry 10/24/18 10/24/18 10/24/18 03:43 04:00 04:09 Temperature 100.5 F H 100.5 F H Pulse Rate 115 H Pulse Rate [ 111 H Bilateral Throughout] Pulse Rate [ 108 H From Monitor] Respiratory 36 H Rate Respiratory 14 Rate [Bilateral Throughout] Blood Pressure 138/85 O2 Sat by Pulse 98 Oximetry 10/24/18 10/24/18 10/24/18 04:16 05:00 06:00 Temperature Pulse Rate 112 H 109 H Pulse Rate [ 110 H Bilateral Throughout] Pulse Rate [ From Monitor] Respiratory 30 H 29 H Rate Respiratory 14 Rate [Bilateral Throughout] Blood Pressure 140/89 145/93 O2 Sat by Pulse 93 97 Oximetry 10/24/18 10/24/18 10/24/18 07:00 08:00 08:10 Temperature Pulse Rate 116 H Pulse Rate [ 109 H 109 H Bilateral Throughout] Pulse Rate [ From Monitor] Respiratory 27 H Rate Respiratory 30 H 28 H Rate [Bilateral Throughout] Blood Pressure 151/92 O2 Sat by Pulse 97 Oximetry 10/24/18 10/24/18 10/24/18 08:11 08:20 08:25 Temperature 100.0 F H Pulse Rate 108 H 108 H Pulse Rate [ Bilateral Throughout] Pulse Rate [ From Monitor] Respiratory 27 H Rate Respiratory Rate [Bilateral Throughout] Blood Pressure 138/89 129/86 O2 Sat by Pulse 100 Oximetry 10/24/18 10/24/18 10/24/18 08:30 08:45 09:00 Temperature Pulse Rate 106 H 104 H 108 H Pulse Rate [ Bilateral Throughout] Pulse Rate [ From Monitor] Respiratory Rate Respiratory Rate [Bilateral Throughout] Blood Pressure 143/92 153/95 154/97 O2 Sat by Pulse Oximetry 10/24/18 09:15 Temperature Pulse Rate 107 H Pulse Rate [ Bilateral Throughout] Pulse Rate [ From Monitor] Respiratory Rate Respiratory Rate [Bilateral Throughout] Blood Pressure 146/99 O2 Sat by Pulse Oximetry - Lab 10/23/18 05:16 10/24/18 10:27 Most recent lab results Calcium 8.0 mg/dL (8.4-10.2) L 10/23/18 05:16 Phosphorus 5.10 mg/dL (2.5-4.5) H 10/12/18 04:57 Magnesium 3.10 mg/dL (1.7-2.3) H 10/18/18 05:03 Urine Creatinine 30.8 mg/dL (0.1-20.0) H 10/13/18 04:43 Urine Sodium 106 mmol/L 10/13/18 04:43 Urine Total Protein 75 mg/dL (5-11.8) H 10/13/18 04:43 Medications & Allergies - Medications Allergies/Adverse Reactions: Allergies Sulfa (Sulfonamide Antibiotics) Allergy (Verified 10/10/18 16:54) Unknown Home Medications: Home Medications Medication Instructions Recorded Confirmed Last Taken Type Acetaminophen [Tylenol] 1,000 mg PO Q6HR 10/10/18 10/10/18 Unknown History Amlodipine Besylate [Norvasc] 10 mg PO QDAY 10/10/18 10/10/18 Unknown History Aspirin [Adult Aspirin] 81 mg PO DAILY 10/10/18 10/10/18 Unknown History Atorvastatin [Lipitor Tab] 80 mg PO DAILY 10/10/18 10/10/18 Unknown History Losartan [Cozaar] 100 mg PO QDAY 10/10/18 10/10/18 Unknown History Multivitamin [Multiple Vitamins] 1 each PO DAILY 10/10/18 10/10/18 Unknown History hydroCHLOROthiazide [HCTZ] 25 mg PO QDAY 10/10/18 10/10/18 Unknown History Active Medications: Generic Name Dose Route Start Last Admin Trade Name Freq PRN Reason Stop Dose Admin Acetaminophen 500 mg 10/16/18 10:02 10/21/18 23:30 Tylenol PO 500 mg Q6H PRN Administration Fever >101 Albuterol 2.5 mg 10/10/18 18:12 Proventil IH Q3HRT PRN Shortness Of Breath Albuterol/Ipratropium 1 ampul 10/20/18 14:30 10/24/18 08:09 Duoneb *Not For Prn Use* IH Not Given Q6HRT RUBI Amlodipine Besylate 10 mg 10/11/18 10:00 10/23/18 09:52 Norvasc PO 10 mg QDAY RUBI Administration Lipase/Protease/Amylase 1 each 10/11/18 12:58 Pancrebecka Reed 10,500 Unit FEEDTUBE PRN PRN For Clogged Feeding Tube Arformoterol Tartrate 15 mcg 10/20/18 11:45 10/24/18 08:09 Brovana Nebu IH 15 mcg Q12HRT RUBI Administration Atovaquone 750 mg 10/18/18 10:00 10/23/18 22:01 Mepron PO 750 mg BID RUBI Administration Carvedilol 12.5 mg 10/22/18 22:00 10/23/18 22:02 Coreg PO 12.5 mg BID RUBI Administration Haloperidol Lactate 5 mg 10/13/18 19:45 10/20/18 21:08 Haldol IV 5 mg Q6H PRN Administration Agitation Hydralazine HCl 10 mg 10/12/18 15:50 10/18/18 06:36 Apresoline IV 10 mg Q4HR PRN Administration SBP>175 or DBP>115 Hydrophilic Ointment 1 applic 10/10/18 17:53 Vaseline Lip Therapy TP Q2HR PRN Dry Lips Ganciclovir Sodium 80 mg/ 250 mls @ 100 mls/hr 10/15/18 20:00 10/22/18 20:07 Sodium Chloride IV 100 mls/hr MoWeFr RUBI Administration Sodium Chloride 100 mls @ 999 mls/hr 10/20/18 09:54 Nacl 0.9% IV CHON PRN Hypotension Ceftriaxone Sodium 2 gm in 100 mls @ 200 mls/hr 10/21/18 15:00 10/23/18 09:53 Rocephin/Ns 2 Gm/100 Ml IV 200 mls/hr Q24HR RUBI Administration Protocol Sodium Chloride 500 mls @ 0 mls/hr 10/24/18 10:02 Nacl 0.9% 500 Ml IV 10/24/18 10:03 ONCE ONE As Directed Lansoprazole 30 mg 10/15/18 10:00 10/23/18 22:04 Prevacid Solutab FEEDTUBE 30 mg BID RUBI Administration Lorazepam 1 mg 10/13/18 19:48 10/21/18 04:09 Ativan IV 1 mg Q4H PRN Administration agitation Metoprolol Tartrate 5 mg 10/18/18 14:05 Lopressor IV Q6HR PRN Tachyarrhythmias Multi-Ingred Cream/Lotion/Oil/Oint 1 applic 10/10/18 17:53 Artificial Tears Ophth Oint OU Q4HR PRN Dry Eye(s) Multivitamins 1 each 10/11/18 10:00 10/23/18 09:54 Theragran Tab PO 1 each DAILY RUBI Administration Simple Syrup 15 ml 10/11/18 12:58 Simple Syrup FEEDTUBE PRN PRN Hypoglycemia Simple Syrup 30 ml 10/11/18 12:58 Simple Syrup FEEDTUBE PRN PRN Hypoglycemia Sodium Bicarbonate 325 mg 10/11/18 12:58 Sodium Bicarbonate FEEDTUBE PRN PRN For Clogged Feeding Tube Sodium Chloride 10 ml 10/10/18 22:00 10/23/18 22:05 Sodium Chloride Flush Syringe 10 Ml IV 10 ml BID RUBI Administration Sodium Chloride 10 ml 10/10/18 18:12 Sodium Chloride Flush Syringe 10 Ml IV PRN PRN LINE FLUSH
--- NOTE | 2018-10-24 11:08 | Progress Note ---
Assessment and Plan Cultures: Blood culture 10/10/2018 no growth. Sputum culture 10/10/2018 Ana Paula albicans. Crypto Ag 10/10/2018 neg. Urine culture 10/13/2018 no growth. Blood culture 10/17/2018 no growth. Blood culture 10/20/2018: in progress Stool Occult Blood 10/23/18: positive Assessment: 43 y/o male with history of HIV (unknown CD4/VL/ART intake), HTN, CVA 6 months ago at [place], Nicotine Dependence, Malnutrition; admitted on 10/10/2018 due to AMS (confusion/lethargy) and slurred speech for 24 h: 1) Severe SIRS versus sepsis: Fevers continuing . Unclear etiology ? aspiration pneumonia +/- opportunistic brain infection - CXR neg - Unable to obtain UA - patient was anuric - BNP 70K - Troponin 0.2 - LDH 2242 2) Acute hypoxemic respiratory failure: for airway protection +/- ? pneumonia. R epeat CXR no consolidations. Ana Paula in tracha sp likely a colonizer. Extubated 10/15 3) Acute encephalopathy: not better; multifactorial ?from hypertensive urgency +/- brain opportunistic infection. DDx: Neurosyphilis, VZV/CMV encephalitis versus [employer] lymphoma versus less likely PML - CT head showed bilateral chronic ischemic changes. - Brain MRI showed areas of edema in the basal ganglia and thalami bilaterally, within the jamari and in the cerebral hemispheres bilaterally in the subcortical and deep white matter and in portions of the cortex, areas of encephalomalacia in the basal ganglia bilaterally with evidence of previous hemorrhage or mineral deposition and numerous small foci of acute infarct in the basal ganglia bilaterally, subinsular regions bilaterally and medial temporal lobes bilaterally and possibly in the occipital cortex bilaterally. - RPR reactive 1:32 / FTA ABs reactive - Brain MRA showed possible dissection versus artifact at the basilar artery. Luminal irregularity at the anterior, middle, and posterior cerebral arteries as well as the carotid siphons may represent mild to moderate atherosclerotic disease. More notable narrowing at the distal right A1 segment. Differential diagnosis includes motion artifact and vasculitis. Vertebral arteries are not clearly visualized. - CSF wbc 4, rbc 113, Seg 8%, Lymph 76%, protein 55, glucose 73 which is not c/w meningitis - Toxoplasma IgG negative - On ganciclovir, penicillin and high dosed mepron - CMV DNA VL=1,370, 3.1 log on ganciclovir - likely reactivation - CSF VDRL non reactive, Toxoplasma PCR: negative 4) Anemia/thrombocytopenia ? unclear etiology, worsening ?HIV myelosuppression ?disseminated MAC/CMV ?ganciclovir 5) Acute on CKD or SHRUTHI ? unclear etiology: r/o rhabdo ?ischemia. Started on HD 6) Elevated lactate ? Lactate 17. 7) DM: uncontrolled. 8) Elevated LFTs ? 9) HIV/AIDS: VL 320,000 / CD4=3 on 10/11/2018 Recommendations: - continue ganciclovir to cover empirically VZV/CMV D10 - continue Mepron (atovaquone) 750 mg BID - f/u repeat blood culture -continue Ceftriaxone 2gms IV q 24, D3 -Continue Vancomycin, per PK dosing, D3 -CMV DNA ordered [facility] M: [id number] O:[phone] Subjective Date of service: 10/24/18 Principal diagnosis: anemia - low plt Interval history: Patient seen and examined. No acute distress. Low grade fevers. More alert. . Objective - Exam Narrative Exam: General appearance:Awake . More alert. No acute distress observed Eyes: anicteric sclerae, moist conjunctivae; no lid-lag; PERRLA HENT: Atraumatic; oropharynx limited Neck: Trachea midline; supple, no thyromegaly or lymphadenopathy Lungs: CTA, with normal respiratory effort and no intercostal retractions CV: tachycardic Abdomen: Soft, non-tender;+SP cath Extremities: No peripheral edema or extremity lymphadenopathy Skin: Normal temperature, turgor and texture; no rash, ulcers or subcutaneous nodules Psych: affect: good Neuro: follows simple commands, speech clearer. - Constitutional Vitals: Vital Signs Temp Pulse Resp BP Pulse Ox 100.0 F H 115 H 27 H 147/107 100 10/24/18 08:20 10/24/18 10:45 10/24/18 08:20 10/24/18 10:45 10/24/18 08:11 Temperature -Last 24 Hours Temperature 100.0 F Temperature 100.5 F Temperature 100.5 F Temperature 98.6 F Temperature 98.4 F Temperature 99.5 F Temperature 99.5 F Temperature 99.6 F Temperature 99.5 F Temperature 99.0 F Temperature 99.7 F Temperature 100.1 F - Labs CBC & Chem 7: 10/23/18 05:16 10/24/18 10:27 Labs: Abnormal lab results 10/16/18 10/23/18 Range/Units 08:31 09:12 Crossmatch See Detail See Detail
[2018-10-24 11:29] LABS: Calcium 8.3 mg/dL (8.4-10.2)
[2018-10-24] MEDS ORDERED: NACL 0.9 (PRIMING MACHINE ONLY DIALYSIS) MC ONE (16:17)
[2018-10-24] MEDS: COREG PO SCH (23:43)
[2018-10-24] MEDS: PREVACID SOLUTAB FEEDTUBE SCH (23:44)
[2018-10-25] MEDS: BROVANA NEBU IH SCH ×3 (01:27→20:05)
[2018-10-25] MEDS: DUONEB *Not for PRN Use IH SCH ×6 (01:33→20:06)
[2018-10-25] MEDS: MEPRON PO SCH ×4 (02:01→22:24)
--- NOTE | 2018-10-25 07:31 | Hem/Onc Progress Note ---
Assessment and Plan 1. Anemia. At admission, hemoglobin was 8.1, later low and s/p Transfusion support. 2. Platelets at admission was 20. 3. White cell count was elevated. 4. PT/INR h/o slightly elevated. 5. Renal failure. 6. ALT elevated. 7. The patient has multiple medical issues. PLAN: I will ask for a smear evaluation. I will call the lab for same. Supportive care in the interim while we looked for primary etiology. 3/ - plt better - s/p transfusion d/w dr rain and dr carrillo 10/14 - low plt - rasta ctive bleed suprapubic catheter 10/15 - plt were rising and again going down' pt had got plt transfusion LDH high - [id number] ordered smear - ordererd LDH may be high in other causes too - renal etc 10/16 - d/w path - not many schistocytes on smear - ADAMTS 13 ordered extubated 10/17 - plt low - path review ordered d/w armin monsalve 10/18 - path report pending plt low - but no active bleeding 10/19 - pt more alert - follows commands no bleeding 10/20 pt SOB - d/w Dr Monsalve and RN plt low - but no bleeding NGT+ more awake 10/21 - pt in [facility] plt >100 - more awake 10/22 - clinically better - moves all 4 limbs 10/23 - clinically stable - prbc suport 10/24 - as per RN -pt passed barium - for thickened diet pt has suprapuic got PRBC plt improving 10/25 - clinically better no active bleeding - Patient Problems (1) Thrombocytopenia associated with AIDS Current Visit: Yes Status: Acute Subjective Date of service: 10/25/18 Principal diagnosis: low plt Interval history: doing better- Objective - Constitutional Vitals: Last Vital Signs Temp 98.8 F 10/25/18 04:14 Pulse 112 H 10/25/18 04:14 Resp 20 10/25/18 04:14 BP 140/86 10/25/18 04:14 Pulse Ox 100 10/25/18 04:14 Pain Intensity (0-10): denies any pain General appearance: no acute distress Performance status: 4-completely disabled - EENT Eyes: EOM intact ENT: clear oral mucosa Lymph node exam: negative cervical - Neck Neck: normal ROM - Respiratory Respiratory effort: Positive: normal Respiratory: bilateral: CTA - Cardiovascular Heart Sounds: Present: S1 & S2 Extremities: No edema - Gastrointestinal General gastrointestinal: Present: soft Rectal Exam: deferred - Genitourinary Male genitourinary: Present: deferred - Integumentary Integumentary: warm - Musculoskeletal Musculoskeletal: generalized weakness - Neurologic Neurologic: moves all extremities - Labs Lab Results: Laboratory Results - last 24 hr 10/23/18 10/24/18 09:12 10:27 Sodium 139 Potassium 3.4 L Chloride 97.0 L Carbon Dioxide 26 Anion Gap 19 BUN 26 H Creatinine 4.2 H Estimated GFR 19 BUN/Creatinine Ratio 6 Glucose 131 H Calcium 8.3 L Blood Type A POSITIVE Antibody Screen Negative Crossmatch See Detail Medications & Allergies - Medications Allergies/Adverse Reactions: Allergies Sulfa (Sulfonamide Antibiotics) Allergy (Verified 10/10/18 16:54) Unknown Home Medications: Home Medications Medication Instructions Recorded Confirmed Last Taken Type Acetaminophen [Tylenol] 1,000 mg PO Q6HR 10/10/18 10/10/18 Unknown History Amlodipine Besylate [Norvasc] 10 mg PO QDAY 10/10/18 10/10/18 Unknown History Aspirin [Adult Aspirin] 81 mg PO DAILY 10/10/18 10/10/18 Unknown History Atorvastatin [Lipitor Tab] 80 mg PO DAILY 10/10/18 10/10/18 Unknown History Losartan [Cozaar] 100 mg PO QDAY 10/10/18 10/10/18 Unknown History Multivitamin [Multiple Vitamins] 1 each PO DAILY 10/10/18 10/10/18 Unknown History hydroCHLOROthiazide [HCTZ] 25 mg PO QDAY 10/10/18 10/10/18 Unknown History Active Medications: Generic Name Dose Route Start Last Admin Trade Name Freq PRN Reason Stop Dose Admin Acetaminophen 500 mg 10/16/18 10:02 10/21/18 23:30 Tylenol PO 500 mg Q6H PRN Administration Fever >101 Albuterol 2.5 mg 10/10/18 18:12 Proventil IH Q3HRT PRN Shortness Of Breath Albuterol/Ipratropium 1 ampul 10/25/18 08:00 Duoneb *Not For Prn Use* IH TIDRT [facility] Amlodipine Besylate 10 mg 10/11/18 10:00 10/23/18 09:52 Norvasc PO 10 mg QDAY RUBI Administration Lipase/Protease/Amylase 1 each 10/11/18 12:58 Pancrebecka Reed 10,500 Unit FEEDTUBE PRN PRN For Clogged Feeding Tube Arformoterol Tartrate 15 mcg 10/20/18 11:45 10/25/18 01:27 Blade Menendez IH Not Given Q12HRT RUBI Atovaquone 750 mg 10/18/18 10:00 10/25/18 02:08 Mepron PO Not Given BID RUBI Carvedilol 12.5 mg 10/22/18 22:00 10/24/18 23:43 Coreg PO 12.5 mg BID RUBI Administration Haloperidol Lactate 5 mg 10/13/18 19:45 10/20/18 21:08 Haldol IV 5 mg Q6H PRN Administration Agitation Hydralazine HCl 10 mg 10/12/18 15:50 10/18/18 06:36 Apresoline IV 10 mg Q4HR PRN Administration SBP>175 or DBP>115 Hydrophilic Ointment 1 applic 10/10/18 17:53 Vaseline Lip Therapy TP Q2HR PRN Dry Lips Ganciclovir Sodium 80 mg/ 250 mls @ 100 mls/hr 10/15/18 20:00 10/22/18 20:07 Sodium Chloride IV 100 mls/hr MoWeFr RUBI Administration Sodium Chloride 100 mls @ 999 mls/hr 10/20/18 09:54 Nacl 0.9% IV CHON PRN Hypotension Ceftriaxone Sodium 2 gm in 100 mls @ 200 mls/hr 10/21/18 15:00 10/23/18 09:53 Rocephin/Ns 2 Gm/100 Ml IV 200 mls/hr Q24HR RUBI Administration Protocol Lansoprazole 30 mg 10/15/18 10:00 10/24/18 23:44 Prevacid Solutab FEEDTUBE 30 mg BID RUBI Administration Lorazepam 1 mg 10/13/18 19:48 10/21/18 04:09 Ativan IV 1 mg Q4H PRN Administration agitation Metoprolol Tartrate 5 mg 10/18/18 14:05 Lopressor IV Q6HR PRN Tachyarrhythmias Multi-Ingred Cream/Lotion/Oil/Oint 1 applic 10/10/18 17:53 Artificial Tears Ophth Oint OU Q4HR PRN Dry Eye(s) Multivitamins 1 each 10/11/18 10:00 10/23/18 09:54 Theragran Tab PO 1 each DAILY RUBI Administration Simple Syrup 15 ml 10/11/18 12:58 Simple Syrup FEEDTUBE PRN PRN Hypoglycemia Simple Syrup 30 ml 10/11/18 12:58 Simple Syrup FEEDTUBE PRN PRN Hypoglycemia Sodium Bicarbonate 325 mg 10/11/18 12:58 Sodium Bicarbonate FEEDTUBE PRN PRN For Clogged Feeding Tube Sodium Chloride 10 ml 10/10/18 22:00 10/23/18 22:05 Sodium Chloride Flush Syringe 10 Ml IV 10 ml BID RUBI Administration Sodium Chloride 10 ml 10/10/18 18:12 Sodium Chloride Flush Syringe 10 Ml IV PRN PRN LINE FLUSH
--- NOTE | 2018-10-25 09:04 | Progress Note ---
Subjective Principal diagnosis: anemia - low plt Interval history: Patient was seen today for follow-up on multiple renal related issues Patient has been tolerating dialysis treatment fairly well Currently on Monday schedule Vitals labs intake output medications were reviewed Social history: Reviewed Allergies: Reviewed Family history: Reviewed Physical examination HEENT: Oral mucosa moist no pallor or icterus Neck: Supple no JVD Chest: Clear to auscultation anteriorly CVS: Regular rate and rhythm S1 and S2 heard Abdomen: Soft nontender no suprapubic masses no organomegaly appreciable Extremity: Dry skin less than 1+ peripheral edema Musculoskeletal: No joint effusion noted in knees and ankle Neurological: Alert awake Dermatology: No petechial rashes Psychiatry: No evidence of any agitation and aggression noted Assessment and plan Acute kidney injury in a patient who is 43-year-old and possibly may have underlying chronic kidney disease currently dialysis dependent due to severity of renal failure. Patient also does have echogenic kidney with history of HIV and poor compliance, Continue with hemodialysis Monday continue to monitor dialysis related labs, will order for CMP, phosphorus as well as intact PTH Metabolic acidosis, hyperkalemia to monitor and follow Admitted with fever tachycardia systemic inflammatory response respiratory failure was intubated currently doing better Pancytopenia slowly improving in the setting of HIV AIDS CVA, noted during this admission Ejection fraction 45%/nonsustained ventricular tachycardia cardiology following Currently on tube feeding Severe protein calorie malnutrition patient needs to be in high protein diet We'll continue to follow and make recommendation from renal standpoint Objective - Vital Signs Vital signs: Vital Signs - 12hr 10/24/18 10/24/18 10/24/18 21:57 23:41 23:43 Temperature 98.4 F Pulse Rate 117 H 118 H 118 H Pulse Rate [ Bilateral Throughout] Respiratory 18 16 Rate Respiratory Rate [Bilateral Throughout] Blood Pressure 143/83 Blood Pressure 143/83 [Right] O2 Sat by Pulse 99 98 Oximetry 10/25/18 10/25/18 10/25/18 00:00 01:29 01:31 Temperature Pulse Rate 93 H Pulse Rate [ Bilateral Throughout] Respiratory 17 18 Rate Respiratory Rate [Bilateral Throughout] Blood Pressure Blood Pressure [Right] O2 Sat by Pulse 98 99 Oximetry 10/25/18 10/25/18 10/25/18 01:33 01:42 01:43 Temperature Pulse Rate Pulse Rate [ 101 H 105 H Bilateral Throughout] Respiratory Rate Respiratory 18 18 Rate [Bilateral Throughout] Blood Pressure Blood Pressure [Right] O2 Sat by Pulse 98 Oximetry 10/25/18 04:14 Temperature 98.8 F Pulse Rate 112 H Pulse Rate [ Bilateral Throughout] Respiratory 20 Rate Respiratory Rate [Bilateral Throughout] Blood Pressure 140/86 Blood Pressure [Right] O2 Sat by Pulse 100 Oximetry - Lab 10/23/18 05:16 10/24/18 10:27 Most recent lab results Calcium 8.3 mg/dL (8.4-10.2) L 10/24/18 10:27 Phosphorus 5.10 mg/dL (2.5-4.5) H 10/12/18 04:57 Magnesium 3.10 mg/dL (1.7-2.3) H 10/18/18 05:03 Urine Creatinine 30.8 mg/dL (0.1-20.0) H 10/13/18 04:43 Urine Sodium 106 mmol/L 10/13/18 04:43 Urine Total Protein 75 mg/dL (5-11.8) H 10/13/18 04:43 Medications & Allergies - Medications Allergies/Adverse Reactions: Allergies Sulfa (Sulfonamide Antibiotics) Allergy (Verified 10/10/18 16:54) Unknown Home Medications: Home Medications Medication Instructions Recorded Confirmed Last Taken Type Acetaminophen [Tylenol] 1,000 mg PO Q6HR 10/10/18 10/10/18 Unknown History Amlodipine Besylate [Norvasc] 10 mg PO QDAY 10/10/18 10/10/18 Unknown History Aspirin [Adult Aspirin] 81 mg PO DAILY 10/10/18 10/10/18 Unknown History Atorvastatin [Lipitor Tab] 80 mg PO DAILY 10/10/18 10/10/18 Unknown History Losartan [Cozaar] 100 mg PO QDAY 10/10/18 10/10/18 Unknown History Multivitamin [Multiple Vitamins] 1 each PO DAILY 10/10/18 10/10/18 Unknown History hydroCHLOROthiazide [HCTZ] 25 mg PO QDAY 10/10/18 10/10/18 Unknown History Active Medications: Generic Name Dose Route Start Last Admin Trade Name Freq PRN Reason Stop Dose Admin Acetaminophen 500 mg 10/16/18 10:02 10/21/18 23:30 Tylenol PO 500 mg Q6H PRN Administration Fever >101 Albuterol 2.5 mg 10/10/18 18:12 Proventil IH Q3HRT PRN Shortness Of Breath Albuterol/Ipratropium 1 ampul 10/25/18 08:00 Duoneb *Not For Prn Use* IH TIDRT RUBI Amlodipine Besylate 10 mg 10/11/18 10:00 10/23/18 09:52 Norvasc PO 10 mg QDAY RUBI Administration Lipase/Protease/Amylase 1 each 10/11/18 12:58 Pancrebecka Reed 10,500 Unit FEEDTUBE PRN PRN For Clogged Feeding Tube Arformoterol Tartrate 15 mcg 10/20/18 11:45 10/25/18 01:27 Brovana Nebu IH Not Given Q12HRT RUBI Atovaquone 750 mg 10/18/18 10:00 10/25/18 02:08 Mepron PO Not Given BID RUBI Carvedilol 12.5 mg 10/22/18 22:00 10/24/18 23:43 Coreg PO 12.5 mg BID RUBI Administration Haloperidol Lactate 5 mg 10/13/18 19:45 10/20/18 21:08 Haldol IV 5 mg Q6H PRN Administration Agitation Hydralazine HCl 10 mg 10/12/18 15:50 10/18/18 06:36 Apresoline IV 10 mg Q4HR PRN Administration SBP>175 or DBP>115 Hydrophilic Ointment 1 applic 10/10/18 17:53 Vaseline Lip Therapy TP Q2HR PRN Dry Lips Ganciclovir Sodium 80 mg/ 250 mls @ 100 mls/hr 10/15/18 20:00 10/22/18 20:07 Sodium Chloride IV 100 mls/hr MoWeFr RUBI Administration Sodium Chloride 100 mls @ 999 mls/hr 10/20/18 09:54 Nacl 0.9% IV CHON PRN Hypotension Ceftriaxone Sodium 2 gm in 100 mls @ 200 mls/hr 10/21/18 15:00 10/23/18 09:53 Rocephin/Ns 2 Gm/100 Ml IV 200 mls/hr Q24HR RUBI Administration Protocol Lansoprazole 30 mg 10/15/18 10:00 10/24/18 23:44 Prevacid Solutab FEEDTUBE 30 mg BID RUBI Administration Lorazepam 1 mg 10/13/18 19:48 10/21/18 04:09 Ativan IV 1 mg Q4H PRN Administration agitation Metoprolol Tartrate 5 mg 10/18/18 14:05 Lopressor IV Q6HR PRN Tachyarrhythmias Multi-Ingred Cream/Lotion/Oil/Oint 1 applic 10/10/18 17:53 Artificial Tears Ophth Oint OU Q4HR PRN Dry Eye(s) Multivitamins 1 each 10/11/18 10:00 10/23/18 09:54 Theragran Tab PO 1 each DAILY RUBI Administration Simple Syrup 15 ml 10/11/18 12:58 Simple Syrup FEEDTUBE PRN PRN Hypoglycemia Simple Syrup 30 ml 10/11/18 12:58 Simple Syrup FEEDTUBE PRN PRN Hypoglycemia Sodium Bicarbonate 325 mg 10/11/18 12:58 Sodium Bicarbonate FEEDTUBE PRN PRN For Clogged Feeding Tube Sodium Chloride 10 ml 10/10/18 22:00 10/23/18 22:05 Sodium Chloride Flush Syringe 10 Ml IV 10 ml BID RUBI Administration Sodium Chloride 10 ml 10/10/18 18:12 Sodium Chloride Flush Syringe 10 Ml IV PRN PRN LINE FLUSH
--- NOTE | 2018-10-25 10:18 | Progress Note ---
Assessment and Plan Cultures: Blood culture 10/10/2018 no growth. Sputum culture 10/10/2018 Ana Paula albicans. Crypto Ag 10/10/2018 neg. Urine culture 10/13/2018 no growth. Blood culture 10/17/2018 no growth. Blood culture 10/20/2018: in progress Stool Occult Blood 10/23/18: positive Assessment: 43 y/o male with history of HIV (unknown CD4/VL/ART intake), HTN, CVA 6 months ago at [facility], Nicotine Dependence, Malnutrition; admitted on 10/10/2018 due to AMS (confusion/lethargy) and slurred speech for 24 h: 1) Severe SIRS versus sepsis: on and off low grade fevers continuing. Unclear etiology ? aspiration pneumonia +/- opportunistic brain infection - CXR neg - Unable to obtain UA - patient was anuric - BNP 70K - Troponin 0.2 - LDH 2242 2) Acute hypoxemic respiratory failure: for airway protection +/- ? pneumonia. Repeat CXR no consolidations. Ana Paula in tracha sp likely a colonizer. Extubated 10/15 3) Acute encephalopathy: not better; multifactorial ?from hypertensive urgency +/- brain opportunistic infection. DDx: Neurosyphilis, VZV/CMV encephalitis versus [employer] lymphoma versus less likely PML - CT head showed bilateral chronic ischemic changes. - Brain MRI showed areas of edema in the basal ganglia and thalami bilaterally, within the jamari and in the cerebral hemispheres bilaterally in the subcortical and deep white matter and in portions of the cortex, areas of encephalomalacia in the basal ganglia bilaterally with evidence of previous hemorrhage or mineral deposition and numerous small foci of acute infarct in the basal ganglia bilaterally, subinsular regions bilaterally and medial temporal lobes bilaterally and possibly in the occipital cortex bilaterally. - RPR reactive 1:32 / FTA ABs reactive - Brain MRA showed possible dissection versus artifact at the basilar artery. Luminal irregularity at the anterior, middle, and posterior cerebral arteries as well as the carotid siphons may represent mild to moderate atherosclerotic disease. More notable narrowing at the distal right A1 segment. Differential diagnosis includes motion artifact and vasculitis. Vertebral arteries are not clearly visualized. - CSF wbc 4, rbc 113, Seg 8%, Lymph 76%, protein 55, glucose 73 which is not c/w meningitis - Toxoplasma IgG negative - On ganciclovir, penicillin and high dosed mepron - CMV DNA VL=1,370, 3.1 log on ganciclovir - likely reactivation - CSF VDRL non reactive, Toxoplasma PCR: negative 4) Anemia/thrombocytopenia: 5) Acute on CKD or SHRUTHI ? unclear etiology: 6) DM: uncontrolled. 8) Elevated LFTs ? 9) HIV/AIDS: VL 320,000 / CD4=3 on 10/11/2018 Recommendations: - continue ganciclovir to cover empirically VZV/CMV D11 of D14, Discussed with microlab CSF EDIE virus PCR, CMV PCR and VZV PCR could not be processed apparently due to insufficient quantity. Will complete 14 days to cover VZV. f/u Rpt CMV DNA PCR- if negative will discontiue ganciclovir -continue Mepron (atovaquone) 750 mg BID -f/u repeat blood culture -continue Ceftriaxone 2gms IV q 24, D5 -Continue Vancomycin, per PK dosing, D5 [facility] M: [phone] O:[phone] Subjective Date of service: 10/25/18 Principal diagnosis: anemia - low plt Interval history: Patient seen and examined. No acute distress. Low grade fevers. More alert, attempting to eat. Objective - Exam Narrative Exam: General appearance:Awake . More alert. No acute distress observed Eyes: anicteric sclerae, moist conjunctivae; no lid-lag; PERRLA HENT: Atraumatic; oropharynx limited Neck: Trachea midline; supple, no thyromegaly or lymphadenopathy Lungs: CTA, with normal respiratory effort and no intercostal retractions CV: tachycardic Abdomen: Soft, non-tender;+SP cath Extremities: No peripheral edema or extremity lymphadenopathy Skin: Normal temperature, turgor and texture; no rash, ulcers or subcutaneous nodules Psych: affect: good Neuro: follows simple commands, speech clearer. - Constitutional Vitals: Vital Signs Temp Pulse Resp BP Pulse Ox 98.8 F 112 H 20 140/86 100 10/25/18 04:14 10/25/18 04:14 10/25/18 04:14 10/25/18 04:14 10/25/18 04:14 Temperature -Last 24 Hours Temperature 98.8 F Temperature 98.4 F Temperature 98.2 F Temperature 100.1 F - Labs CBC & Chem 7: 10/23/18 05:16 10/25/18 10:00 Labs: Abnormal lab results 10/23/18 10/24/18 Range/Units 09:12 10:27 Potassium 3.4 L (3.6-5.0) mmol/L Chloride 97.0 L (98-107) mmol/L BUN 26 H (9-20) mg/dL Creatinine 4.2 H (0.8-1.5) mg/dL Glucose 131 H (75-100) mg/dL Calcium 8.3 L (8.4-10.2) mg/dL Crossmatch See Detail
[2018-10-25 11:16] LABS: Albumin 3.5 g/dL (3.9-5); Calcium 8.6 mg/dL (8.4-10.2)
[2018-10-25] MEDS: COREG PO SCH ×2 (12:46→22:23)
[2018-10-25] MEDS: NORVASC PO SCH (12:46)
[2018-10-25] MEDS: PREVACID SOLUTAB FEEDTUBE SCH ×2 (12:47→22:23)
[2018-10-25] MEDS: SODIUM CHLORIDE FLUSH SYRINGE 10 ML IV SCH ×2 (12:48→22:27)
[2018-10-25] MEDS: THERAGRAN Tab PO SCH (12:49)
--- NOTE | 2018-10-25 13:36 | Progress Note ---
Assessment and Plan Assessment and plan: patient is 43 YO Male with HIV, hypertension, previous stroke, Nicotine Dependence, presents to ED for evaluation. Patient was confused and lethargic and unable to provide history. He was seen and evaluated in ED and found to be in distress and unable to protect his airway and was therefore intubated, placed on ventilator in ER then admitted MR brain 10/11 1. Study somewhat degraded by motion artifact. 2 Areas of edema in the basal ganglia and thalami bilaterally, within the jamari and in the cerebral hemispheres bilaterally in the subcortical and deep white matter and in portions of the cortex. 3. Areas of encephalomalacia in the basal ganglia bilaterally with evidence of previous hemorrhage or mineral deposition. 4. Numerous small foci of acute infarct in the basal ganglia bilaterally, subinsular regions bilaterally and medial temporal lobes bilaterally and possibly in the occipital cortex bilaterally. The above findings may be secondary to an infectious or noninfectious etiology with a component of vasculopathy or vasculitis resulting in infarcts. Viral encephalopathies and lymphoma would need to be considered in this patient with history of HIV. Neuro ams acute metabolic encephalopathy improving /Acute CVA with Bilateral infarcts with edema Consulted Neurology, he was evaluated by DR. Valentine. Could be due to possible vasculitis - further workup pending Dysphagia/ moderate malnutrition -MBS 10/23, recommended pureed with nectar thickened liquids Hematology Anemia- stable, thrombocytopenia, leukocytosis, coagulopathy; now resolved -Status post platelet and prbc transfusion, the patient had only few schistocytes on smear, ADAMS13 91% activity ID HIV/AIDS, CD4 count 3, HIV viral load 320,000 acute bacterial PNA, CMV viremia toxo neg, CSF neg Whole blood cmv PCR was positive at 1374 abx and antiviral per ID FEN/Renal SHRUTHI- ATN, Hyperkalemia, urinary retention sp SPC on 10/12 cont HD per nephrology, no signs of renal recovery Pulm acute hypoxic resp failure on MV> 96 hours self extubated 10/16, continue supplemental oxygen CVS /Hypertensive urgency and acute systolic CHF He was treated with Cardene drip which was weaned off. Optimize medications for CHF on coreg, no mik due to high K, fluid removal by dialysis CCT 33 mins History Interval history: Patient continues to have weakness of his voice, low-grade fevers Review of systems Constitutional: , no malaise, no joint pains CVS: No chest pain, no orthopnea, no dyspnea on exertion, no pedal edema GI: No abdominal pain, no diarrhea, no vomiting, no constipation Respiratory: No shortness of breath, no wheezing, no coughing Hospitalist Physical - Physical exam Narrative exam: General.: Appears well, no distress, nontoxic HEENT: Moist mucous membranes, extraocular muscles intact, no lymphadenopathy Neck: supple Cardiac: S1-S2 heard Lungs: clear to auscultation bilaterally Abdomen: soft , nontender, nondistended, bowel sounds positive Extremities: no edema clubbing or cyanosis Skin: no rash or lesions Neurologic: no gross focal deficits Psych: calm, and cooperative - Constitutional Vitals: Temp Pulse Resp BP Pulse Ox 100.0 F H 112 H 20 140/86 98 10/25/18 11:41 10/25/18 12:46 10/25/18 11:41 10/25/18 12:46 10/25/18 11:41 General appearance: Present: no acute distress Results - Labs CBC & Chem 7: 10/29/18 09:27 10/30/18 05:00 Labs: Laboratory Last Values WBC 6.2 K/mm3 (4.5-11.0) 10/23/18 05:16 RBC 2.23 M/mm3 (3.65-5.03) L 10/23/18 05:16 Hgb 6.8 gm/dl (11.8-15.2) L 10/23/18 05:16 Hct 20.3 % (35.5-45.6) L 10/23/18 05:16 MCV 91 fl (84-94) 10/23/18 05:16 MCH 30 pg (28-32) 10/23/18 05:16 MCHC 33 % (32-34) 10/23/18 05:16 RDW 22.1 % (13.2-15.2) H 10/23/18 05:16 Plt Count 166 K/mm3 (140-440) 10/23/18 05:16 Add Manual Diff Complete 10/23/18 05:16 Total Counted 100 10/23/18 05:16 Seg Neuts % (Manual) 78.0 % (40.0-70.0) H 10/23/18 05:16 Band Neutrophils % 2.0 % 10/23/18 05:16 Lymphocytes % (Manual) 11.0 % (13.4-35.0) L 10/23/18 05:16 Reactive Lymphs % (Man) 0 % 10/23/18 05:16 Monocytes % (Manual) 3.0 % (0.0-7.3) 10/23/18 05:16 Eosinophils % (Manual) 6.0 % (0.0-4.3) H 10/23/18 05:16 Basophils % (Manual) 0 % (0.0-1.8) 10/23/18 05:16 Metamyelocytes % 0 % 10/23/18 05:16 Myelocytes % 0 % 10/23/18 05:16 Promyelocytes % 0 % 10/23/18 05:16 Blast Cells % 0 % 10/23/18 05:16 Nucleated RBC % 41.0 % (0.0-0.9) H 10/23/18 05:16 Seg Neutrophils # Man 0.0 K/mm3 (1.8-7.7) L 10/23/18 05:16 Band Neutrophils # 0.0 K/mm3 10/23/18 05:16 Abs Lymphs (Manual) 267 cells/uL (850-3900) L 10/11/18 17:36 Lymphocytes # (Manual) 0.0 K/mm3 (1.2-5.4) L 10/23/18 05:16 Abs React Lymphs (Man) 0.0 K/mm3 10/23/18 05:16 Monocytes # (Manual) 0.0 K/mm3 (0.0-0.8) 10/23/18 05:16 Eosinophils # (Manual) 0.0 K/mm3 (0.0-0.4) 10/23/18 05:16 Basophils # (Manual) 0.0 K/mm3 (0.0-0.1) 10/23/18 05:16 Metamyelocytes # 0.0 K/mm3 10/23/18 05:16 Myelocytes # 0.0 K/mm3 10/23/18 05:16 Promyelocytes # 0.0 K/mm3 10/23/18 05:16 Blast Cells # 0.0 K/mm3 10/23/18 05:16 Pathologist Review 10/15/18 03:14 WBC Morphology Not Reportable 10/23/18 05:16 Hypersegmented Neuts Not Reportable 10/23/18 05:16 Hyposegmented Neuts Not Reportable 10/23/18 05:16 Hypogranular Neuts Not Reportable 10/23/18 05:16 Smudge Cells Not Reportable 10/23/18 05:16 Toxic Granulation Not Reportable 10/23/18 05:16 Toxic Vacuolation Not Reportable 10/23/18 05:16 Dohle Bodies Not Reportable 10/23/18 05:16 Pelger-Huet Anomaly Not Reportable 10/23/18 05:16 Kartik Rods Not Reportable 10/23/18 05:16 Platelet Estimate Appe 10/23/18 05:16 Clumped Platelets Not Reportable 10/23/18 05:16 Plt Clumps, EDTA Not Reportable 10/23/18 05:16 Large Platelets Not Reportable 10/23/18 05:16 Giant Platelets Not Reportable 10/23/18 05:16 Platelet Satelliting Not Reportable 10/23/18 05:16 Plt Morphology Comment Not Reportable 10/23/18 05:16 RBC Morphology Not Reportable 10/23/18 05:16 Dimorphic RBCs Not Reportable 10/23/18 05:16 Polychromasia 1+ 10/23/18 05:16 Hypochromasia Not Reportable 10/23/18 05:16 Poikilocytosis Not Reportable 10/23/18 05:16 Anisocytosis 1+ 10/23/18 05:16 Microcytosis Not Reportable 10/23/18 05:16 Macrocytosis Not Reportable 10/23/18 05:16 Spherocytes Not Reportable 10/23/18 05:16 Pappenheimer Bodies Not Reportable 10/23/18 05:16 Sickle Cells Not Reportable 10/23/18 05:16 Target Cells Not Reportable 10/23/18 05:16 Tear Drop Cells Not Reportable 10/23/18 05:16 Ovalocytes Few 10/23/18 05:16 Helmet Cells Not Reportable 10/23/18 05:16 [place] Bodies Not Reportable 10/23/18 05:16 [place] Rings Not Reportable 10/23/18 05:16 Jani Cells Not Reportable 10/23/18 05:16 Bite Cells Not Reportable 10/23/18 05:16 Crenated Cell Not Reportable 10/23/18 05:16 Elliptocytes Few 10/23/18 05:16 Acanthocytes (Spur) Not Reportable 10/23/18 05:16 Rouleaux Not Reportable 10/23/18 05:16 Hemoglobin C Crystals Not Reportable 10/23/18 05:16 Schistocytes Not Reportable 10/23/18 05:16 Malaria parasites Not Reportable 10/23/18 05:16 Jv Bodies Not Reportable 10/23/18 05:16 Hem Pathologist Commnt No 10/23/18 05:16 PT 14.5 Sec. (12.2-14.9) 10/15/18 00:59 INR 1.06 (0.87-1.13) 10/15/18 00:59 APTT 27.9 Sec. (24.2-36.6) 10/10/18 15:02 Thrombin Time 16.9 Sec. (15.1-19.6) 10/10/18 15:02 POC ABG pH 7.535 (7.35-7.45) H 10/21/18 09:49 POC ABG pCO2 32.0 (35-45) L 10/21/18 09:49 POC ABG pO2 57 (80-105) L 10/21/18 09:49 POC ABG HCO3 27.1 10/21/18 09:49 POC ABG Total CO2 28 10/21/18 09:49 POC ABG O2 Sat 93 10/21/18 09:49 POC ABG Base Excess 4 10/21/18 09:49 FiO2 21 % 10/21/18 09:49 Sodium 141 mmol/L (137-145) 10/25/18 10:00 Potassium 4.5 mmol/L (3.6-5.0) D 10/25/18 10:00 Chloride 97.6 mmol/L (98-107) L 10/25/18 10:00 Carbon Dioxide 25 mmol/L (22-30) 10/25/18 10:00 Anion Gap 23 mmol/L 10/25/18 10:00 BUN 42 mg/dL (9-20) H 10/25/18 10:00 Creatinine 6.5 mg/dL (0.8-1.5) H D 10/25/18 10:00 Estimated GFR 11 ml/min 10/25/18 10:00 BUN/Creatinine Ratio 6 % 10/25/18 10:00 Glucose 139 mg/dL (75-100) H 10/25/18 10:00 POC Glucose 139 (70-105) H 10/20/18 13:07 Osmolality 338 Mosm/kg 10/11/18 17:35 Lactic Acid 1.80 mmol/L (0.7-2.0) 10/12/18 05:59 Uric Acid 13.4 mg/dL (3.5-7.6) H 10/11/18 17:36 Calcium 8.6 mg/dL (8.4-10.2) 10/25/18 10:00 Phosphorus 8.30 mg/dL (2.5-4.5) H 10/25/18 10:00 Magnesium 3.10 mg/dL (1.7-2.3) H 10/18/18 05:03 Iron 147 ug/dL (49-181) 10/11/18 17:36 TIBC 236 mcg/dL (250-450) L 10/11/18 17:36 Ferritin 64597.0 ng/mL (13.0-400.0) H 10/11/18 17:35 Total Bilirubin 0.40 mg/dL (0.1-1.2) 10/25/18 10:00 Direct Bilirubin 0.2 mg/dL (0-0.2) 10/16/18 04:07 Indirect Bilirubin 0.3 mg/dL 10/16/18 04:07 AST 46 units/L (5-40) H 10/25/18 10:00 ALT 21 units/L (7-56) 10/25/18 10:00 Alkaline Phosphatase 102 units/L (35-129) 10/25/18 10:00 Ammonia 25.0 umol/L (25-60) 10/17/18 14:59 Lactate Dehydrogenase 925 units/L (91-180) H 10/22/18 05:51 Troponin T 0.272 ng/mL (0.00-0.029) H* 10/10/18 18:07 NT-Pro-B Natriuret Pep 08069 pg/mL (0-450) H 10/10/18 15:42 Total Protein 8.1 g/dL (6.3-8.2) 10/25/18 10:00 Albumin 3.5 g/dL (3.9-5) L 10/25/18 10:00 Albumin/Globulin Ratio 0.8 % 10/25/18 10:00 Triglycerides 329 mg/dL (2-149) H 10/10/18 15:02 Cholesterol 234 mg/dL (50-199) H 10/10/18 15:02 LDL Cholesterol Direct 139 mg/dL (50-130) H 10/10/18 15:02 HDL Cholesterol 42 mg/dL (40-59) 10/10/18 15:02 Cholesterol/HDL Ratio 5.57 % 10/10/18 15:02 Vitamin B12 912.3 pg/mL (211-911) H 10/14/18 08:51 Folate 8.32 ng/mL (7.3-26.0) 10/14/18 08:51 PTH Intact 388.7 pg/mL (15-65) H 10/25/18 10:00 Urine Creatinine 30.8 mg/dL (0.1-20.0) H 10/13/18 04:43 Urine Sodium 106 mmol/L 10/13/18 04:43 Urine Total Protein 75 mg/dL (5-11.8) H 10/13/18 04:43 CSF Appearance Clear 10/16/18 15:00 CSF Color Colorless 10/16/18 15:00 CSF WBC 4 /mm3 (1-10) 10/16/18 15:00 CSF RBC 113 /mm3 (0-0) 10/16/18 15:00 CSF Seg Neutrophils 8.0 % (0-6) 10/16/18 15:00 CSF Lymphocytes % 76.0 % (40-80) 10/16/18 15:00 CSF Reactive Lymphs 2.0 % 10/16/18 15:00 CSF Monocytes % 14.0 % (15-45) 10/16/18 15:00 CSF Eosinophils % 0 % 10/16/18 15:00 CSF Basophils 0 % 10/16/18 15:00 CSF Pathologist Review C 10/16/18 15:00 CSF Glucose 73 mg/dL 10/16/18 15:00 CSF Total Protein 55 mg/dL 10/16/18 15:00 CSF VDRL Nonreactive (Nonreactive) 10/16/18 15:00 Random Vancomycin 15.0 ug/mL (0-40.0) 10/23/18 07:32 Immunofix Electrophor see below 10/11/18 17:36 Lymph Enumerat CD4/CD8 0.01 (0.86-5.00) L 10/11/18 17:36 % CD3 Cells 85 % (57-85) 10/11/18 17:36 Absolute CD3 Count 226 cells/uL (840-3060) L 10/11/18 17:36 % CD4 Cells 1 % (30-61) L 10/11/18 17:36 Absolute CD4 Count 3 cells/uL (490-1740) L 10/11/18 17:36 % CD8 Cells 82 % (12-42) H 10/11/18 17:36 Absolute CD8 Count 228 cells/uL (180-1170) 10/11/18 17:36 % CD19 Cells 6 % (6-29) 10/11/18 17:36 Absolute CD19 Count 16 cells/uL (110-660) L 10/11/18 17:36 RPR Titer 1:32 10/11/18 17:37 RPR Reactive (Nonreactive) 10/11/18 17:37 T.pallidum Ab (FTA-ABS) Reactive (Nonreactive) H 10/12/18 Unknown CMV DNA PCR log hat copyist/mL See scanned result 10/11/18 17:37 Hepatitis A IgM Ab Non-reactive (NonReactive) 10/11/18 17:34 Hep Bs Antigen Non-reactive (Negative) 10/11/18 17:34 Hep B Core IgM Ab Non-reactive (NonReactive) 10/11/18 17:34 Hepatitis C Antibody Non-reactive (NonReactive) 10/11/18 17:34 HIV-1 RNA PCR copies/ml [id number] Copies/mL H 10/11/18 17:36 HIV-1 RNA (PCR) log 5.51 Log cps/mL H 10/11/18 17:36 Toxoplasma IgG Ab <7.20 IU/mL (<7.20) 10/13/18 07:54 Miscellaneous Test Flexitest 1 10/16/18 15:00 Blood Type A POSITIVE 10/23/18 09:12 Antibody Screen Negative 10/23/18 09:12 Crossmatch See Detail 10/23/18 09:12 Nutrition/Malnutrition Assess - Dietary Evaluation Nutrition/Malnutrition Findings: Nutrition Notes Start: 10/11/18 11:14 Freq: Status: Active Protocol: Document 10/19/18 10:44 NOLAN (Rec: 10/19/18 10:52 NOLAN [email or web address]) Nutrition Notes Initial or Follow up Reassessment Current Diagnosis Acute Kidney Injury,Sepsis, Hypertension,Stroke Other Pertinent Diagnosis Acute encephalopathy, HIV/AIDS , Syphilis Current Diet TF - Nepro at 45ml/hr Labs/Tests BUN 87 Cr 8.7 Na 141 Pertinent Medications Reviewed Height 5 ft 9 in Weight 65.4 kg Atkins Body Weight (kg) 72.72 BMI 21.2 Weight change and time frame Current wt obtained from bed scale Subjective/Other Information TF infusing at goal rate via DHT; pt tolerating. Percent of energy/protein needs met: 100% energy and pro Burn Absent Trauma Absent #1 Nutrition Diagnosis Inadequate oral intake Diagnosis Progress(for reassessment Continues documentation) Is patient on ventilator? No Is Patient Ambulatory and/or Out of Bed No REE-([place]-St. Jeor-confined to bed) [phone] [facility]culation [facility] Additional Notes Pro needs 1-1.2g/k-78g/ day Fluid needs 1ml/kcal Nutrition Intervention Nutrition Support: Continue Nepro at 45 mL/hr. Provide 200ml water flush q4h. Kcal 1,944 Protein (gm) 87 Fluid (mL) 785 Goal #1 TF tolerance Goal #2 TF to meet 90-100% energy and pro needs Follow-Up By: 10/26/18 Additional Comments F/U: stable TF, wt, renal function
[2018-10-25] MEDS: ROCEPHIN/NS 2 GM/100 ML 2 GM/100 ML BAG IV SCH (18:11)
[2018-10-25 20:16] LABS: Myeloperoxidase Antibody <1.0 AI (<1.0)
[2018-10-25 21:26] LABS: ANA Screen, IFA Negative (Negative)
--- NOTE | 2018-10-26 07:41 | Hem/Onc Progress Note ---
Assessment and Plan 1. Anemia. At admission, hemoglobin was 8.1, later low and s/p Transfusion support. 2. Platelets at admission was 20. 3. White cell count was elevated. 4. PT/INR h/o slightly elevated. 5. Renal failure. 6. ALT elevated. 7. The patient has multiple medical issues. PLAN: I will ask for a smear evaluation. I will call the lab for same. Supportive care in the interim while we looked for primary etiology. 3/ - plt better - s/p transfusion d/w dr rain and dr carrillo 10/14 - low plt - rasta ctive bleed suprapubic catheter 10/15 - plt were rising and again going down' pt had got plt transfusion LDH high - [id number] ordered smear - ordererd LDH may be high in other causes too - renal etc 10/16 - d/w path - not many schistocytes on smear - ADAMTS 13 ordered extubated 10/17 - plt low - path review ordered d/w armin monsalve 10/18 - path report pending plt low - but no active bleeding 10/19 - pt more alert - follows commands no bleeding 10/20 pt SOB - d/w Dr Monsalve and RN plt low - but no bleeding NGT+ more awake 10/21 - pt in [facility] plt >100 - more awake 10/22 - clinically better - moves all 4 limbs 10/23 - clinically stable - prbc suport 10/24 - as per RN -pt passed barium - for thickened diet pt has suprapubic got PRBC plt improving 10/25 - clinically better no active bleeding 10/26 - moving all extremity -communicating repeat cbc - Patient Problems (1) Thrombocytopenia associated with AIDS Current Visit: Yes Status: Acute Subjective Date of service: 10/26/18 Principal diagnosis: anemia - low plt Interval history: feeling better pt says had therapy evaluation Objective - Constitutional Vitals: Last Vital Signs Temp 98.9 F 10/25/18 23:46 Pulse 110 H 10/25/18 23:46 Resp 20 10/25/18 23:46 BP 130/85 10/25/18 23:46 Pulse Ox 98 10/25/18 23:46 Pain Intensity (0-10): denies any pain General appearance: no acute distress Performance status: 3-limited selfcare - EENT Eyes: EOM intact ENT: clear oral mucosa Lymph node exam: negative cervical - Neck Neck: normal ROM - Respiratory Respiratory effort: Positive: normal Respiratory: bilateral: diminished (poor effort) - Cardiovascular Heart Sounds: Present: S1 & S2 Extremities: No edema - Gastrointestinal General gastrointestinal: Present: soft, non-tender Rectal Exam: deferred - Genitourinary Male genitourinary: Present: deferred - Integumentary Integumentary: warm - Musculoskeletal Musculoskeletal: generalized weakness - Neurologic Neurologic: moves all extremities - Labs Lab Results: Laboratory Results - last 24 hr 10/16/18 10/21/18 10/21/18 15:00 15:07 15:07 Sodium Potassium Chloride Carbon Dioxide Anion Gap BUN Creatinine Estimated GFR BUN/Creatinine Ratio Glucose Calcium Phosphorus Total Bilirubin AST ALT Alkaline Phosphatase Total Protein Albumin Albumin/Globulin Ratio PTH Intact Random Vancomycin RENO Screen Negative Proteinase 3 (PR3) Ab <1.0 Myeloperoxidase Ab <1.0 Miscellaneous Test Flexitest 1 10/25/18 10/25/18 10/26/18 10:00 10:00 04:54 Sodium 141 Potassium 4.5 D Chloride 97.6 L Carbon Dioxide 25 Anion Gap 23 BUN 42 H Creatinine 6.5 H D Estimated GFR 11 BUN/Creatinine Ratio 6 Glucose 139 H Calcium 8.6 Phosphorus 8.30 H Total Bilirubin 0.40 AST 46 H ALT 21 Alkaline Phosphatase 102 Total Protein 8.1 Albumin 3.5 L Albumin/Globulin Ratio 0.8 PTH Intact 388.7 H Random Vancomycin 7.0 RENO Screen Proteinase 3 (PR3) Ab Myeloperoxidase Ab Miscellaneous Test Medications & Allergies - Medications Allergies/Adverse Reactions: Allergies Sulfa (Sulfonamide Antibiotics) Allergy (Verified 10/10/18 16:54) Unknown Home Medications: Home Medications Medication Instructions Recorded Confirmed Last Taken Type Acetaminophen [Tylenol] 1,000 mg PO Q6HR 10/10/18 10/10/18 Unknown History Amlodipine Besylate [Norvasc] 10 mg PO QDAY 10/10/18 10/10/18 Unknown History Aspirin [Adult Aspirin] 81 mg PO DAILY 10/10/18 10/10/18 Unknown History Atorvastatin [Lipitor Tab] 80 mg PO DAILY 10/10/18 10/10/18 Unknown History Losartan [Cozaar] 100 mg PO QDAY 10/10/18 10/10/18 Unknown History Multivitamin [Multiple Vitamins] 1 each PO DAILY 10/10/18 10/10/18 Unknown History hydroCHLOROthiazide [HCTZ] 25 mg PO QDAY 10/10/18 10/10/18 Unknown History Active Medications: Generic Name Dose Route Start Last Admin Trade Name Freq PRN Reason Stop Dose Admin Acetaminophen 500 mg 10/16/18 10:02 10/21/18 23:30 Tylenol PO 500 mg Q6H PRN Administration Fever >101 Albuterol 2.5 mg 10/10/18 18:12 Proventil IH Q3HRT PRN Shortness Of Breath Albuterol/Ipratropium 1 ampul 10/25/18 08:00 10/25/18 20:06 Duoneb *Not For Prn Use* IH Not Given TIDRT RUBI Amlodipine Besylate 10 mg 10/11/18 10:00 10/25/18 12:46 Norvasc PO 10 mg QDAY RUBI Administration Lipase/Protease/Amylase 1 each 10/11/18 12:58 Pancreaze 10,500 Unit FEEDTUBE PRN PRN For Clogged Feeding Tube Arformoterol Tartrate 15 mcg 10/20/18 11:45 10/25/18 20:05 Brovana Nebu IH 15 mcg Q12HRT RUBI Administration Atovaquone 750 mg 10/18/18 10:00 10/25/18 22:24 Mepron PO 750 mg BID RUBI Administration Carvedilol 12.5 mg 10/22/18 22:00 10/25/18 22:23 Coreg PO 12.5 mg BID RUBI Administration Haloperidol Lactate 5 mg 10/13/18 19:45 10/20/18 21:08 Haldol IV 5 mg Q6H PRN Administration Agitation Hydralazine HCl 10 mg 10/12/18 15:50 10/18/18 06:36 Apresoline IV 10 mg Q4HR PRN Administration SBP>175 or DBP>115 Hydrophilic Ointment 1 applic 10/10/18 17:53 Vaseline Lip Therapy TP Q2HR PRN Dry Lips Ganciclovir Sodium 80 mg/ 250 mls @ 100 mls/hr 10/15/18 20:00 10/22/18 20:07 Sodium Chloride IV 10/28/18 23:59 100 mls/hr MoWeFr RUBI Administration Sodium Chloride 100 mls @ 999 mls/hr 10/20/18 09:54 Nacl 0.9% IV CHON PRN Hypotension Ceftriaxone Sodium 2 gm in 100 mls @ 200 mls/hr 10/21/18 15:00 10/25/18 18:11 Rocephin/Ns 2 Gm/100 Ml IV 200 mls/hr Q24HR RUBI Administration Protocol Lansoprazole 30 mg 10/15/18 10:00 10/25/18 22:23 Prevacid Solutab FEEDTUBE 30 mg BID RUBI Administration Lorazepam 1 mg 10/13/18 19:48 10/21/18 04:09 Ativan IV 1 mg Q4H PRN Administration agitation Metoprolol Tartrate 5 mg 10/18/18 14:05 Lopressor IV Q6HR PRN Tachyarrhythmias Multi-Ingred Cream/Lotion/Oil/Oint 1 applic 10/10/18 17:53 Artificial Tears Ophth Oint OU Q4HR PRN Dry Eye(s) Multivitamins 1 each 10/11/18 10:00 10/25/18 12:49 Theragran Tab PO 1 each DAILY RUBI Administration Simple Syrup 15 ml 10/11/18 12:58 Simple Syrup FEEDTUBE PRN PRN Hypoglycemia Simple Syrup 30 ml 10/11/18 12:58 Simple Syrup FEEDTUBE PRN PRN Hypoglycemia Sodium Bicarbonate 325 mg 10/11/18 12:58 Sodium Bicarbonate FEEDTUBE PRN PRN For Clogged Feeding Tube Sodium Chloride 10 ml 10/10/18 22:00 10/25/18 22:27 Sodium Chloride Flush Syringe 10 Ml IV 10 ml BID RUBI Administration Sodium Chloride 10 ml 10/10/18 18:12 Sodium Chloride Flush Syringe 10 Ml IV PRN PRN LINE FLUSH
[2018-10-26 08:12] LABS: Hematocrit 26.3 % (35.5-45.6); Hemoglobin 8.9 gm/dl (11.8-15.2); Mean Corpuscular HGB Conc 34 % (32-34); Mean Corpuscular Volume 91 fl (84-94); Platelet Count 164 K/mm3 (140-440); Red Blood Count 2.89 M/mm3 (3.65-5.03)
[2018-10-26 08:13] LABS: Red Cell Distribution Width 21.2 % (13.2-15.2)
[2018-10-26] MEDS: DUONEB *Not for PRN Use IH SCH ×3 (08:21→20:54)
[2018-10-26] MEDS: BROVANA NEBU IH SCH ×2 (08:21→20:55)
[2018-10-26 08:58] LABS: Total Cells Counted 100
[2018-10-26 09:00] LABS: Anisocytosis 1+; Ovalocytes Few; Poikilocytosis 1+
[2018-10-26 09:06] LABS: Helmet Cells 1+
[2018-10-26 09:07] LABS: Giant Platelets Few; Platelet Estimate Consistent w Auto; Tear Drop Cells Few
--- NOTE | 2018-10-26 10:38 | Progress Note ---
Assessment and Plan Cultures: Blood culture 10/10/2018 no growth. Sputum culture 10/10/2018 Ana Paula albicans. Crypto Ag 10/10/2018 neg. Urine culture 10/13/2018 no growth. Blood culture 10/17/2018 no growth. Blood culture 10/20/2018: in progress Stool Occult Blood 10/23/18: positive Assessment: 43 y/o male with history of HIV (unknown CD4/VL/ART intake), HTN, CVA 6 months ago at [place], Nicotine Dependence, Malnutrition; admitted on 10/10/2018 due to AMS (confusion/lethargy) and slurred speech for 24 h: 1) Severe SIRS versus sepsis: on and off low grade fevers continuing. Unclear etiology ? aspiration pneumonia +/- opportunistic brain infection - CXR neg - Unable to obtain UA - patient was anuric - BNP 70K - Troponin 0.2 - LDH 2242 2) Acute hypoxemic respiratory failure: for airway protection +/- ? pneumonia. Repeat CXR no consolidations. Ana Paula in tracha sp likely a colonizer. Extubated 10/15 3) Acute encephalopathy: not better; multifactorial ?from hypertensive urgency +/- brain opportunistic infection. DDx: Neurosyphilis, VZV/CMV encephalitis versus [employer] lymphoma versus less likely PML - CT head showed bilateral chronic ischemic changes. - Brain MRI showed areas of edema in the basal ganglia and thalami bilaterally, within the jamari and in the cerebral hemispheres bilaterally in the subcortical and deep white matter and in portions of the cortex, areas of encephalomalacia in the basal ganglia bilaterally with evidence of previous hemorrhage or mineral deposition and numerous small foci of acute infarct in the basal ganglia bilaterally, subinsular regions bilaterally and medial temporal lobes bilaterally and possibly in the occipital cortex bilaterally. - RPR reactive 1:32 / FTA ABs reactive - Brain MRA showed possible dissection versus artifact at the basilar artery. Luminal irregularity at the anterior, middle, and posterior cerebral arteries as well as the carotid siphons may represent mild to moderate atherosclerotic disease. More notable narrowing at the distal right A1 segment. Differential diagnosis includes motion artifact and vasculitis. Vertebral arteries are not clearly visualized. - CSF wbc 4, rbc 113, Seg 8%, Lymph 76%, protein 55, glucose 73 which is not c/w meningitis - Toxoplasma IgG negative - On ganciclovir, penicillin and high dosed mepron - CMV DNA VL=1,370, 3.1 log on ganciclovir - likely reactivation - CSF VDRL non reactive, Toxoplasma PCR: negative 4) Anemia/thrombocytopenia: 5) Acute on CKD or SHRUTHI ? unclear etiology: 6) DM: uncontrolled. 8) Elevated LFTs ? 9) HIV/AIDS: VL 320,000 / CD4=3 on 10/11/2018 Recommendations: - continue ganciclovir to cover empirically VZV/CMV D12 of D14, Discussed with microlab CSF EDIE virus PCR, CMV PCR and VZV PCR could not be processed apparently due to insufficient quantity. Will complete 14 days to cover VZV. f/u Rpt CMV DNA PCR- if negative will discontiue ganciclovir -continue Mepron (atovaquone) 750 mg BID -continue Ceftriaxone 2gms IV q 24, D6 -Continue Vancomycin, per PK dosing, D6 Dr. Thompson will be carbon accountant this weekend, , please call for questions. [facility] M: [phone] O:[phone] Subjective Date of service: 10/26/18 Principal diagnosis: anemia - low plt Interval history: Patient seen and examined. Patient seen and examined in HD. Sitting up in bed, no acute distress observed. responds to all commands. Objective - Exam Narrative Exam: General appearance: Awake . More alert. No acute distress observed Eyes: anicteric sclerae, moist conjunctivae; no lid-lag; PERRLA HENT: Atraumatic; oropharynx limited Neck: Trachea midline; supple, no thyromegaly or lymphadenopathy Lungs: CTA, with normal respiratory effort and no intercostal retractions CV: tachycardic Abdomen: Soft, non-tender;+SP cath Extremities: No peripheral edema or extremity lymphadenopathy Skin: Normal temperature, turgor and texture; no rash, ulcers or subcutaneous nodules Psych: affect: good Neuro: follows simple commands, speech clearer. - Constitutional Vitals: Vital Signs Temp Pulse Resp BP Pulse Ox 98.9 F 110 H 20 130/85 98 10/25/18 23:46 10/25/18 23:46 10/25/18 23:46 10/25/18 23:46 10/25/18 23:46 Temperature -Last 24 Hours Temperature 98.9 F Temperature 98.8 F Temperature 100.0 F - Labs CBC & Chem 7: 10/26/18 07:48 10/25/18 10:00 Labs: Abnormal lab results 10/23/18 10/25/18 10/25/18 Range/Units 09:12 10:00 10:00 RBC (3.65-5.03) M/mm3 Hgb (11.8-15.2) gm/dl Hct (35.5-45.6) % RDW (13.2-15.2) % Lymphocytes % (Manual) (13.4-35.0) % Monocytes % (Manual) (0.0-7.3) % Eosinophils % (Manual) (0.0-4.3) % Nucleated RBC % (0.0-0.9) % Seg Neutrophils # Man (1.8-7.7) K/mm3 Lymphocytes # (Manual) (1.2-5.4) K/mm3 Chloride 97.6 L (98-107) mmol/L BUN 42 H (9-20) mg/dL Creatinine 6.5 H D (0.8-1.5) mg/dL Glucose 139 H (75-100) mg/dL Phosphorus 8.30 H (2.5-4.5) mg/dL AST 46 H (5-40) units/L Albumin 3.5 L (3.9-5) g/dL PTH Intact 388.7 H (15-65) pg/mL Crossmatch See Detail 10/26/18 Range/Units 07:48 RBC 2.89 L (3.65-5.03) M/mm3 Hgb 8.9 L (11.8-15.2) gm/dl Hct 26.3 L (35.5-45.6) % RDW 21.2 H (13.2-15.2) % Lymphocytes % (Manual) 13.0 L (13.4-35.0) % Monocytes % (Manual) 12.0 H (0.0-7.3) % Eosinophils % (Manual) 8.0 H (0.0-4.3) % Nucleated RBC % 53.0 H (0.0-0.9) % Seg Neutrophils # Man 0.0 L (1.8-7.7) K/mm3 Lymphocytes # (Manual) 0.0 L (1.2-5.4) K/mm3 Chloride (98-107) mmol/L BUN (9-20) mg/dL Creatinine (0.8-1.5) mg/dL Glucose (75-100) mg/dL Phosphorus (2.5-4.5) mg/dL AST (5-40) units/L Albumin (3.9-5) g/dL PTH Intact (15-65) pg/mL Crossmatch
[2018-10-26] MEDS: COREG PO SCH ×3 (11:27→22:29)
[2018-10-26] MEDS: NORVASC PO SCH (11:27)
[2018-10-26] MEDS: THERAGRAN Tab PO SCH (11:28)
[2018-10-26] MEDS: MEPRON PO SCH ×2 (11:28→22:02)
[2018-10-26] MEDS: PREVACID SOLUTAB FEEDTUBE SCH ×3 (11:28→22:04)
--- NOTE | 2018-10-26 15:29 | Progress Note ---
Assessment and Plan Assessment and plan: patient is 43 YO Male with HIV, hypertension, previous stroke, Nicotine Dependence, presents to ED for evaluation. Patient was confused and lethargic and unable to provide history. He was seen and evaluated in ED and found to be in distress and unable to protect his airway and was therefore intubated, placed on ventilator in ER then admitted MR brain 10/11 1. Study somewhat degraded by motion artifact. 2 Areas of edema in the basal ganglia and thalami bilaterally, within the jamari and in the cerebral hemispheres bilaterally in the subcortical and deep white matter and in portions of the cortex. 3. Areas of encephalomalacia in the basal ganglia bilaterally with evidence of previous hemorrhage or mineral deposition. 4. Numerous small foci of acute infarct in the basal ganglia bilaterally, subinsular regions bilaterally and medial temporal lobes bilaterally and possibly in the occipital cortex bilaterally. The above findings may be secondary to an infectious or noninfectious etiology with a component of vasculopathy or vasculitis resulting in infarcts. Viral encephalopathies and lymphoma would need to be considered in this patient with history of HIV. Neuro ams acute metabolic encephalopathy improving /Acute CVA with Bilateral infarcts with edema Consulted Neurology, he was evaluated by DR. Valentine. Could be due to possible vasculitis - further workup pending Dysphagia/ moderate malnutrition -MBS 10/23, recommended pureed with nectar thickened liquids Hematology Anemia- stable, thrombocytopenia, leukocytosis, coagulopathy; now resolved -Status post platelet and prbc transfusion, the patient had only few schistocytes on smear, ADAMS13 91% activity ID HIV/AIDS, CD4 count 3, HIV viral load 320,000 acute bacterial PNA, CMV viremia toxo neg, CSF neg Whole blood cmv PCR was positive at 1374 abx and antiviral per ID FEN/Renal SHRUTHI- ATN, Hyperkalemia, urinary retention sp SPC on 10/12 cont HD per nephrology, no signs of renal recovery Pulm acute hypoxic resp failure on MV> 96 hours self extubated 10/16, continue supplemental oxygen CVS /Hypertensive urgency and acute systolic CHF He was treated with Cardene drip which was weaned off. Optimize medications for CHF on coreg, no mik due to high K, fluid removal by dialysis CCT 33 mins History Interval history: Patient continues to have weakness of his voice, low-grade fevers Review of systems Constitutional: , no malaise, no joint pains CVS: No chest pain, no orthopnea, no dyspnea on exertion, no pedal edema GI: No abdominal pain, no diarrhea, no vomiting, no constipation Respiratory: No shortness of breath, no wheezing, no coughing Hospitalist Physical - Physical exam Narrative exam: General.: Appears well, no distress, nontoxic HEENT: Moist mucous membranes, extraocular muscles intact, no lymphadenopathy Neck: supple Cardiac: S1-S2 heard Lungs: clear to auscultation bilaterally Abdomen: soft , nontender, nondistended, bowel sounds positive Extremities: no edema clubbing or cyanosis Skin: no rash or lesions Neurologic: no gross focal deficits Psych: calm, and cooperative - Constitutional Vitals: Temp Pulse Resp BP Pulse Ox 98.9 F 110 H 20 130/85 98 10/25/18 23:46 10/25/18 23:46 10/25/18 23:46 10/25/18 23:46 10/25/18 23:46 General appearance: Present: no acute distress Results - Labs CBC & Chem 7: 10/29/18 09:27 10/30/18 05:00 Labs: Laboratory Last Values WBC 4.9 K/mm3 (4.5-11.0) 10/26/18 07:48 RBC 2.89 M/mm3 (3.65-5.03) L 10/26/18 07:48 Hgb 8.9 gm/dl (11.8-15.2) L 10/26/18 07:48 Hct 26.3 % (35.5-45.6) L 10/26/18 07:48 MCV 91 fl (84-94) 10/26/18 07:48 MCH 31 pg (28-32) 10/26/18 07:48 MCHC 34 % (32-34) 10/26/18 07:48 RDW 21.2 % (13.2-15.2) H 10/26/18 07:48 Plt Count 164 K/mm3 (140-440) 10/26/18 07:48 Add Manual Diff Complete 10/26/18 07:48 Total Counted 100 10/26/18 07:48 Seg Neuts % (Manual) 66.0 % (40.0-70.0) 10/26/18 07:48 Band Neutrophils % 0 % 10/26/18 07:48 Lymphocytes % (Manual) 13.0 % (13.4-35.0) L 10/26/18 07:48 Reactive Lymphs % (Man) 0 % 10/26/18 07:48 Monocytes % (Manual) 12.0 % (0.0-7.3) H 10/26/18 07:48 Eosinophils % (Manual) 8.0 % (0.0-4.3) H 10/26/18 07:48 Basophils % (Manual) 1.0 % (0.0-1.8) 10/26/18 07:48 Metamyelocytes % 0 % 10/26/18 07:48 Myelocytes % 0 % 10/26/18 07:48 Promyelocytes % 0 % 10/26/18 07:48 Blast Cells % 0 % 10/26/18 07:48 Nucleated RBC % 53.0 % (0.0-0.9) H 10/26/18 07:48 Seg Neutrophils # Man 0.0 K/mm3 (1.8-7.7) L 10/26/18 07:48 Band Neutrophils # 0.0 K/mm3 10/26/18 07:48 Abs Lymphs (Manual) 267 cells/uL (850-3900) L 10/11/18 17:36 Lymphocytes # (Manual) 0.0 K/mm3 (1.2-5.4) L 10/26/18 07:48 Abs React Lymphs (Man) 0.0 K/mm3 10/26/18 07:48 Monocytes # (Manual) 0.0 K/mm3 (0.0-0.8) 10/26/18 07:48 Eosinophils # (Manual) 0.0 K/mm3 (0.0-0.4) 10/26/18 07:48 Basophils # (Manual) 0.0 K/mm3 (0.0-0.1) 10/26/18 07:48 Metamyelocytes # 0.0 K/mm3 10/26/18 07:48 Myelocytes # 0.0 K/mm3 10/26/18 07:48 Promyelocytes # 0.0 K/mm3 10/26/18 07:48 Blast Cells # 0.0 K/mm3 10/26/18 07:48 Pathologist Review 10/15/18 03:14 WBC Morphology Not Reportable 10/26/18 07:48 Hypersegmented Neuts Not Reportable 10/26/18 07:48 Hyposegmented Neuts Not Reportable 10/26/18 07:48 Hypogranular Neuts Not Reportable 10/26/18 07:48 Smudge Cells Not Reportable 10/26/18 07:48 Toxic Granulation Not Reportable 10/26/18 07:48 Toxic Vacuolation Not Reportable 10/26/18 07:48 Dohle Bodies Not Reportable 10/26/18 07:48 Pelger-Huet Anomaly Not Reportable 10/26/18 07:48 Kartik Rods Not Reportable 10/26/18 07:48 Platelet Estimate Consistent w auto 10/26/18 07:48 Clumped Platelets Not Reportable 10/26/18 07:48 Plt Clumps, EDTA Not Reportable 10/26/18 07:48 Large Platelets Not Reportable 10/26/18 07:48 Giant Platelets Few 10/26/18 07:48 Platelet Satelliting Not Reportable 10/26/18 07:48 Plt Morphology Comment Not Reportable 10/26/18 07:48 RBC Morphology Not Reportable 10/26/18 07:48 Dimorphic RBCs Not Reportable 10/26/18 07:48 Polychromasia 1+ 10/26/18 07:48 Hypochromasia Not Reportable 10/26/18 07:48 Poikilocytosis 1+ 10/26/18 07:48 Anisocytosis 1+ 10/26/18 07:48 Microcytosis Few 10/26/18 07:48 Macrocytosis Not Reportable 10/26/18 07:48 Spherocytes Not Reportable 10/26/18 07:48 Pappenheimer Bodies Not Reportable 10/26/18 07:48 Sickle Cells Not Reportable 10/26/18 07:48 Target Cells Not Reportable 10/26/18 07:48 Tear Drop Cells Few 10/26/18 07:48 Ovalocytes Few 10/26/18 07:48 Helmet Cells 1+ 10/26/18 07:48 Smith-[place] Bodies Not Reportable 10/26/18 07:48 [place] Rings Not Reportable 10/26/18 07:48 [place] Cells Not Reportable 10/26/18 07:48 Bite Cells Not Reportable 10/26/18 07:48 Crenated Cell Not Reportable 10/26/18 07:48 Elliptocytes Not Reportable 10/26/18 07:48 Acanthocytes (Spur) Not Reportable 10/26/18 07:48 Rouleaux Not Reportable 10/26/18 07:48 Hemoglobin C Crystals Not Reportable 10/26/18 07:48 Schistocytes Not Reportable 10/26/18 07:48 Malaria parasites Not Reportable 10/26/18 07:48 Jv Bodies Not Reportable 10/26/18 07:48 Hem Pathologist Commnt No 10/26/18 07:48 PT 14.5 Sec. (12.2-14.9) 10/15/18 00:59 INR 1.06 (0.87-1.13) 10/15/18 00:59 APTT 27.9 Sec. (24.2-36.6) 10/10/18 15:02 Thrombin Time 16.9 Sec. (15.1-19.6) 10/10/18 15:02 POC ABG pH 7.535 (7.35-7.45) H 10/21/18 09:49 POC ABG pCO2 32.0 (35-45) L 10/21/18 09:49 POC ABG pO2 57 (80-105) L 10/21/18 09:49 POC ABG HCO3 27.1 10/21/18 09:49 POC ABG Total CO2 28 10/21/18 09:49 POC ABG O2 Sat 93 10/21/18 09:49 POC ABG Base Excess 4 10/21/18 09:49 FiO2 21 % 10/21/18 09:49 Sodium 141 mmol/L (137-145) 10/25/18 10:00 Potassium 4.5 mmol/L (3.6-5.0) D 10/25/18 10:00 Chloride 97.6 mmol/L (98-107) L 10/25/18 10:00 Carbon Dioxide 25 mmol/L (22-30) 10/25/18 10:00 Anion Gap 23 mmol/L 10/25/18 10:00 BUN 42 mg/dL (9-20) H 10/25/18 10:00 Creatinine 6.5 mg/dL (0.8-1.5) H D 10/25/18 10:00 Estimated GFR 11 ml/min 10/25/18 10:00 BUN/Creatinine Ratio 6 % 10/25/18 10:00 Glucose 139 mg/dL (75-100) H 10/25/18 10:00 POC Glucose 139 (70-105) H 10/20/18 13:07 Osmolality 338 Mosm/kg 10/11/18 17:35 Lactic Acid 1.80 mmol/L (0.7-2.0) 10/12/18 05:59 Uric Acid 13.4 mg/dL (3.5-7.6) H 10/11/18 17:36 Calcium 8.6 mg/dL (8.4-10.2) 10/25/18 10:00 Phosphorus 8.30 mg/dL (2.5-4.5) H 10/25/18 10:00 Magnesium 3.10 mg/dL (1.7-2.3) H 10/18/18 05:03 Iron 147 ug/dL (49-181) 10/11/18 17:36 TIBC 236 mcg/dL (250-450) L 10/11/18 17:36 Ferritin 39066.0 ng/mL (13.0-400.0) H 10/11/18 17:35 Total Bilirubin 0.40 mg/dL (0.1-1.2) 10/25/18 10:00 Direct Bilirubin 0.2 mg/dL (0-0.2) 10/16/18 04:07 Indirect Bilirubin 0.3 mg/dL 10/16/18 04:07 AST 46 units/L (5-40) H 10/25/18 10:00 ALT 21 units/L (7-56) 10/25/18 10:00 Alkaline Phosphatase 102 units/L (35-129) 10/25/18 10:00 Ammonia 25.0 umol/L (25-60) 10/17/18 14:59 Lactate Dehydrogenase 925 units/L (91-180) H 10/22/18 05:51 Troponin T 0.272 ng/mL (0.00-0.029) H* 10/10/18 18:07 NT-Pro-B Natriuret Pep 74709 pg/mL (0-450) H 10/10/18 15:42 Total Protein 8.1 g/dL (6.3-8.2) 10/25/18 10:00 Albumin 3.5 g/dL (3.9-5) L 10/25/18 10:00 Albumin/Globulin Ratio 0.8 % 10/25/18 10:00 Triglycerides 329 mg/dL (2-149) H 10/10/18 15:02 Cholesterol 234 mg/dL (50-199) H 10/10/18 15:02 LDL Cholesterol Direct 139 mg/dL (50-130) H 10/10/18 15:02 HDL Cholesterol 42 mg/dL (40-59) 10/10/18 15:02 Cholesterol/HDL Ratio 5.57 % 10/10/18 15:02 Vitamin B12 912.3 pg/mL (211-911) H 10/14/18 08:51 Folate 8.32 ng/mL (7.3-26.0) 10/14/18 08:51 PTH Intact 388.7 pg/mL (15-65) H 10/25/18 10:00 Urine Creatinine 30.8 mg/dL (0.1-20.0) H 10/13/18 04:43 Urine Sodium 106 mmol/L 10/13/18 04:43 Urine Total Protein 75 mg/dL (5-11.8) H 10/13/18 04:43 CSF Appearance Clear 10/16/18 15:00 CSF Color Colorless 10/16/18 15:00 CSF WBC 4 /mm3 (1-10) 10/16/18 15:00 CSF RBC 113 /mm3 (0-0) 10/16/18 15:00 CSF Seg Neutrophils 8.0 % (0-6) 10/16/18 15:00 CSF Lymphocytes % 76.0 % (40-80) 10/16/18 15:00 CSF Reactive Lymphs 2.0 % 10/16/18 15:00 CSF Monocytes % 14.0 % (15-45) 10/16/18 15:00 CSF Eosinophils % 0 % 10/16/18 15:00 CSF Basophils 0 % 10/16/18 15:00 CSF Pathologist Review C 10/16/18 15:00 CSF Glucose 73 mg/dL 10/16/18 15:00 CSF Total Protein 55 mg/dL 10/16/18 15:00 CSF VDRL Nonreactive (Nonreactive) 10/16/18 15:00 Random Vancomycin 7.0 ug/mL (0-40.0) 10/26/18 04:54 Immunofix Electrophor see below 10/11/18 17:36 RENO Screen Negative (Negative) 10/21/18 15:07 Proteinase 3 (PR3) Ab <1.0 AI (<1.0) 10/21/18 15:07 Myeloperoxidase Ab <1.0 AI (<1.0) 10/21/18 15:07 Lymph Enumerat CD4/CD8 0.01 (0.86-5.00) L 10/11/18 17:36 % CD3 Cells 85 % (57-85) 10/11/18 17:36 Absolute CD3 Count 226 cells/uL (840-3060) L 10/11/18 17:36 % CD4 Cells 1 % (30-61) L 10/11/18 17:36 Absolute CD4 Count 3 cells/uL (490-1740) L 10/11/18 17:36 % CD8 Cells 82 % (12-42) H 10/11/18 17:36 Absolute CD8 Count 228 cells/uL (180-1170) 10/11/18 17:36 % CD19 Cells 6 % (6-29) 10/11/18 17:36 Absolute CD19 Count 16 cells/uL (110-660) L 10/11/18 17:36 RPR Titer 1:32 10/11/18 17:37 RPR Reactive (Nonreactive) 10/11/18 17:37 T.pallidum Ab (FTA-ABS) Reactive (Nonreactive) H 10/12/18 Unknown CMV DNA PCR log marble coper/mL See scanned result 10/11/18 17:37 Hepatitis A IgM Ab Non-reactive (NonReactive) 10/11/18 17:34 Hep Bs Antigen Non-reactive (Negative) 10/11/18 17:34 Hep B Core IgM Ab Non-reactive (NonReactive) 10/11/18 17:34 Hepatitis C Antibody Non-reactive (NonReactive) 10/11/18 17:34 HIV-1 RNA PCR copies/ml [id number] Copies/mL H 10/11/18 17:36 HIV-1 RNA (PCR) log 5.51 Log cps/mL H 10/11/18 17:36 Toxoplasma IgG Ab <7.20 IU/mL (<7.20) 10/13/18 07:54 Miscellaneous Test Flexitest 1 10/16/18 15:00 Blood Type A POSITIVE 10/23/18 09:12 Antibody Screen Negative 10/23/18 09:12 Crossmatch See Detail 10/23/18 09:12 Nutrition/Malnutrition Assess - Dietary Evaluation Nutrition/Malnutrition Findings: Nutrition Notes Start: 10/11/18 11:14 Freq: Status: Active Protocol: Document 10/19/18 10:44 NOLAN (Rec: 10/19/18 10:52 NOLAN [email or web address]) Nutrition Notes Initial or Follow up Reassessment Current Diagnosis Acute Kidney Injury,Sepsis, Hypertension,Stroke Other Pertinent Diagnosis Acute encephalopathy, HIV/AIDS , Syphilis Current Diet TF - Nepro at 45ml/hr Labs/Tests BUN 87 Cr 8.7 Na 141 Pertinent Medications Reviewed Height 5 ft 9 in Weight 65.4 kg Shirley Body Weight (kg) 72.72 BMI 21.2 Weight change and time frame Current wt obtained from bed scale Subjective/Other Information TF infusing at goal rate via DHT; pt tolerating. Percent of energy/protein needs met: 100% energy and pro Burn Absent Trauma Absent #1 Nutrition Diagnosis Inadequate oral intake Diagnosis Progress(for reassessment Continues documentation) Is patient on ventilator? No Is Patient Ambulatory and/or Out of Bed No REE-(Reasnor-St. Jeor-confined to bed) [phone] Calculation Used for Recommendations Reasnor-St Jeor Additional Notes Pro needs 1-1.2g/k-78g/ day Fluid needs 1ml/kcal Nutrition Intervention Nutrition Support: Continue Nepro at 45 mL/hr. Provide 200ml water flush q4h. Kcal 1,944 Protein (gm) 87 Fluid (mL) 785 Goal #1 TF tolerance Goal #2 TF to meet 90-100% energy and pro needs Follow-Up By: 10/26/18 Additional Comments F/U: stable TF, wt, renal function
[2018-10-26] MEDS: ROCEPHIN/NS 2 GM/100 ML 2 GM/100 ML BAG IV SCH (17:08)
[2018-10-26] MEDS: SODIUM CHLORIDE FLUSH SYRINGE 10 ML IV SCH ×4 (17:09→22:05)
--- NOTE | 2018-10-26 18:06 | Progress Note ---
Assessment and Plan Impression * Acute renal failure. Most likely secondary to ATN * Respiratory failure * Encephalopathy * Sepsis * cardiomyopathy--ef 35% * Anemia * Thrombocytopenia * HIV disease Recommendations * Patient remains oliguric. No evidence of renal recovery at this time * HD q MWF * He most likely has ATN * Avoid nephrotoxins * Adjust meds for GFR less than 10 * Monitor fluid status and electrolytes closely * Consultants notes appreciated * outpatient hd placement for hd * Discussed with patient's mother at bedside Subjective Date of service: 10/26/18 Principal diagnosis: anemia - low plt Interval history: resting well in bed today Objective - Exam Narrative Exam: HEENT: Oral mucosa moist no pallor or icterus Neck: Supple no JVD Chest: Clear to auscultation anteriorly CVS: Regular rate and rhythm S1 and S2 heard Abdomen: Soft nontender no suprapubic masses no organomegaly appreciable Extremity: Dry skin less than 1+ peripheral edema Musculoskeletal: No joint effusion noted in knees and ankle Neurological: Alert awake Dermatology: No petechial rashes Psychiatry: No evidence of any agitation and aggression noted - Vital Signs Vital signs: Vital Signs - 12hr 10/26/18 10/26/18 10/26/18 08:21 08:31 11:35 Temperature 98.0 F Pulse Rate 120 H Pulse Rate [ 115 H 113 H Bilateral Throughout] Respiratory 18 Rate Respiratory 20 220 H Rate [Bilateral Throughout] Blood Pressure 143/92 O2 Sat by Pulse 98 Oximetry - Lab 10/26/18 07:48 10/25/18 10:00 Most recent lab results Calcium 8.6 mg/dL (8.4-10.2) 10/25/18 10:00 Phosphorus 8.30 mg/dL (2.5-4.5) H 10/25/18 10:00 Magnesium 3.10 mg/dL (1.7-2.3) H 10/18/18 05:03 Urine Creatinine 30.8 mg/dL (0.1-20.0) H 10/13/18 04:43 Urine Sodium 106 mmol/L 10/13/18 04:43 Urine Total Protein 75 mg/dL (5-11.8) H 10/13/18 04:43 Medications & Allergies - Medications Allergies/Adverse Reactions: Allergies Sulfa (Sulfonamide Antibiotics) Allergy (Verified 10/10/18 16:54) Unknown Home Medications: Home Medications Medication Instructions Recorded Confirmed Last Taken Type Acetaminophen [Tylenol] 1,000 mg PO Q6HR 10/10/18 10/10/18 Unknown History Amlodipine Besylate [Norvasc] 10 mg PO QDAY 10/10/18 10/10/18 Unknown History Aspirin [Adult Aspirin] 81 mg PO DAILY 10/10/18 10/10/18 Unknown History Atorvastatin [Lipitor Tab] 80 mg PO DAILY 10/10/18 10/10/18 Unknown History Losartan [Cozaar] 100 mg PO QDAY 10/10/18 10/10/18 Unknown History Multivitamin [Multiple Vitamins] 1 each PO DAILY 10/10/18 10/10/18 Unknown History hydroCHLOROthiazide [HCTZ] 25 mg PO QDAY 10/10/18 10/10/18 Unknown History Active Medications: Generic Name Dose Route Start Last Admin Trade Name Freq PRN Reason Stop Dose Admin Acetaminophen 500 mg 10/16/18 10:02 10/21/18 23:30 Tylenol PO 500 mg Q6H PRN Administration Fever >101 Albuterol 2.5 mg 10/10/18 18:12 Proventil IH Q3HRT PRN Shortness Of Breath Albuterol/Ipratropium 1 ampul 10/25/18 08:00 10/26/18 14:21 Duoneb *Not For Prn Use* IH Not Given TIDRT RUBI Amlodipine Besylate 10 mg 10/11/18 10:00 10/26/18 11:27 Norvasc PO Not Given QDAY RUBI Lipase/Protease/Amylase 1 each 10/11/18 12:58 Pancrebecka Reed 10,500 Unit FEEDTUBE PRN PRN For Clogged Feeding Tube Arformoterol Tartrate 15 mcg 10/20/18 11:45 10/26/18 08:21 Brovana Nebu IH 15 mcg Q12HRT RUBI Administration Atovaquone 750 mg 10/18/18 10:00 10/26/18 11:28 Mepron PO Not Given BID RUBI Carvedilol 12.5 mg 10/22/18 22:00 10/26/18 11:27 Coreg PO Not Given BID RUBI Haloperidol Lactate 5 mg 10/13/18 19:45 10/20/18 21:08 Haldol IV 5 mg Q6H PRN Administration Agitation Hydralazine HCl 10 mg 10/12/18 15:50 10/18/18 06:36 Apresoline IV 10 mg Q4HR PRN Administration SBP>175 or DBP>115 Hydrophilic Ointment 1 applic 10/10/18 17:53 Vaseline Lip Therapy TP Q2HR PRN Dry Lips Ganciclovir Sodium 80 mg/ 250 mls @ 100 mls/hr 10/15/18 20:00 10/22/18 20:07 Sodium Chloride IV 10/28/18 23:59 100 mls/hr MoWeFr RUBI Administration Sodium Chloride 100 mls @ 999 mls/hr 10/20/18 09:54 Nacl 0.9% IV CHON PRN Hypotension Ceftriaxone Sodium 2 gm in 100 mls @ 200 mls/hr 10/21/18 15:00 10/26/18 17:08 Rocephin/Ns 2 Gm/100 Ml IV 200 mls/hr Q24HR RUBI Administration Protocol Vancomycin HCl 1,250 mg/ 275 mls @ 166.667 mls/hr 10/26/18 19:00 Sodium Chloride IV 10/26/18 20:38 ONCE ONE Vancomycin HCl 750 mg/ Sodium 265 mls @ 166.667 mls/hr 10/29/18 20:00 Chloride IV 10/29/18 21:35 MoWeFr ONE Lansoprazole 30 mg 10/15/18 10:00 10/26/18 11:28 Prevacid Solutab FEEDTUBE Not Given BID RUBI Lorazepam 1 mg 10/13/18 19:48 10/21/18 04:09 Ativan IV 1 mg Q4H PRN Administration agitation Metoprolol Tartrate 5 mg 10/18/18 14:05 Lopressor IV Q6HR PRN Tachyarrhythmias Multi-Ingred Cream/Lotion/Oil/Oint 1 applic 10/10/18 17:53 Artificial Tears Ophth Oint OU Q4HR PRN Dry Eye(s) Multivitamins 1 each 10/11/18 10:00 10/26/18 11:28 Theragran Tab PO Not Given DAILY RUBI Simple Syrup 15 ml 10/11/18 12:58 Simple Syrup FEEDTUBE PRN PRN Hypoglycemia Simple Syrup 30 ml 10/11/18 12:58 Simple Syrup FEEDTUBE PRN PRN Hypoglycemia Sodium Bicarbonate 325 mg 10/11/18 12:58 Sodium Bicarbonate FEEDTUBE PRN PRN For Clogged Feeding Tube Sodium Chloride 10 ml 10/10/18 22:00 10/26/18 17:10 Sodium Chloride Flush Syringe 10 Ml IV 10 ml BID RUBI Administration Sodium Chloride 10 ml 10/10/18 18:12 Sodium Chloride Flush Syringe 10 Ml IV PRN PRN LINE FLUSH
[2018-10-26] MEDS ORDERED: VANCOMYCIN 1,250 MG in NACL 0.9% 250ML 250 ML IV ONE (19:00)
[2018-10-26] MEDS: NACL 0.9% IV SCH ×2 (22:02→22:03)
[2018-10-26] MEDS: CYTOVENE IV SCH ×2 (22:02→22:03)
--- NOTE | 2018-10-27 09:22 | Progress Note ---
Assessment and Plan Impression * Acute renal failure. Most likely secondary to ATN * Respiratory failure * Encephalopathy * Sepsis * cardiomyopathy--ef 35% * Anemia * Thrombocytopenia * HIV disease Recommendations * Patient remains oliguric. No evidence of renal recovery at this time * HD q MWF * follow up lytes daily * He most likely has ATN * Avoid nephrotoxins * Adjust meds for GFR less than 10 * Monitor fluid status and electrolytes closely * Consultants notes appreciated * outpatient hd placement for hd * Discussed with patient's mother at bedside Subjective Date of service: 10/27/18 Principal diagnosis: anemia - low plt Interval history: resting well in bed today Objective - Exam Narrative Exam: HEENT: Oral mucosa moist no pallor or icterus Neck: Supple no JVD Chest: Clear to auscultation anteriorly CVS: Regular rate and rhythm S1 and S2 heard Abdomen: Soft nontender no suprapubic masses no organomegaly appreciable Extremity: Dry skin less than 1+ peripheral edema Musculoskeletal: No joint effusion noted in knees and ankle Neurological: Alert awake Dermatology: No petechial rashes Psychiatry: No evidence of any agitation and aggression noted - Vital Signs Vital signs: Vital Signs - 12hr 10/26/18 10/26/18 10/26/18 22:24 22:29 23:20 Temperature 99.4 F Pulse Rate 133 H Respiratory 20 Rate Blood Pressure 140/90 140/90 147/98 O2 Sat by Pulse 97 Oximetry 10/27/18 06:13 Temperature 98.4 F Pulse Rate 115 H Respiratory 20 Rate Blood Pressure 126/89 O2 Sat by Pulse 100 Oximetry - Lab 10/26/18 07:48 10/25/18 10:00 Most recent lab results Calcium 8.6 mg/dL (8.4-10.2) 10/25/18 10:00 Phosphorus 8.30 mg/dL (2.5-4.5) H 10/25/18 10:00 Magnesium 3.10 mg/dL (1.7-2.3) H 10/18/18 05:03 Urine Creatinine 30.8 mg/dL (0.1-20.0) H 10/13/18 04:43 Urine Sodium 106 mmol/L 10/13/18 04:43 Urine Total Protein 75 mg/dL (5-11.8) H 10/13/18 04:43 Medications & Allergies - Medications Allergies/Adverse Reactions: Allergies Sulfa (Sulfonamide Antibiotics) Allergy (Verified 10/10/18 16:54) Unknown Home Medications: Home Medications Medication Instructions Recorded Confirmed Last Taken Type Acetaminophen [Tylenol] 1,000 mg PO Q6HR 10/10/18 10/10/18 Unknown History Amlodipine Besylate [Norvasc] 10 mg PO QDAY 10/10/18 10/10/18 Unknown History Aspirin [Adult Aspirin] 81 mg PO DAILY 10/10/18 10/10/18 Unknown History Atorvastatin [Lipitor Tab] 80 mg PO DAILY 10/10/18 10/10/18 Unknown History Losartan [Cozaar] 100 mg PO QDAY 10/10/18 10/10/18 Unknown History Multivitamin [Multiple Vitamins] 1 each PO DAILY 10/10/18 10/10/18 Unknown History hydroCHLOROthiazide [HCTZ] 25 mg PO QDAY 10/10/18 10/10/18 Unknown History Active Medications: Generic Name Dose Route Start Last Admin Trade Name Freq PRN Reason Stop Dose Admin Acetaminophen 500 mg 10/16/18 10:02 10/21/18 23:30 Tylenol PO 500 mg Q6H PRN Administration Fever >101 Albuterol 2.5 mg 10/10/18 18:12 Proventil IH Q3HRT PRN Shortness Of Breath Albuterol/Ipratropium 1 ampul 10/25/18 08:00 10/26/18 20:54 Duoneb *Not For Prn Use* IH 1 ampul TIDRT RUBI Administration Amlodipine Besylate 10 mg 10/11/18 10:00 10/26/18 11:27 Norvasc PO Not Given QDAY RUBI Lipase/Protease/Amylase 1 each 10/11/18 12:58 Pancrebecka Reed 10,500 Unit FEEDTUBE PRN PRN For Clogged Feeding Tube Arformoterol Tartrate 15 mcg 10/20/18 11:45 10/26/18 20:55 Brovana Nebu IH 15 mcg Q12HRT RUBI Administration Atovaquone 750 mg 10/18/18 10:00 10/26/18 22:02 Mepron PO 750 mg BID RUBI Administration Carvedilol 12.5 mg 10/22/18 22:00 10/26/18 22:29 Coreg PO 12.5 mg BID RUBI Administration Haloperidol Lactate 5 mg 10/13/18 19:45 10/20/18 21:08 Haldol IV 5 mg Q6H PRN Administration Agitation Hydralazine HCl 10 mg 10/12/18 15:50 10/18/18 06:36 Apresoline IV 10 mg Q4HR PRN Administration SBP>175 or DBP>115 Hydrophilic Ointment 1 applic 10/10/18 17:53 Vaseline Lip Therapy TP Q2HR PRN Dry Lips Ganciclovir Sodium 80 mg/ 250 mls @ 100 mls/hr 10/15/18 20:00 10/26/18 22:03 Sodium Chloride IV 10/28/18 23:59 100 mls/hr MoWeFr RUBI Administration Sodium Chloride 100 mls @ 999 mls/hr 10/20/18 09:54 Nacl 0.9% IV CHON PRN Hypotension Ceftriaxone Sodium 2 gm in 100 mls @ 200 mls/hr 10/21/18 15:00 10/26/18 17:08 Rocephin/Ns 2 Gm/100 Ml IV 200 mls/hr Q24HR RUBI Administration Protocol Vancomycin HCl 750 mg/ Sodium 265 mls @ 166.667 mls/hr 10/29/18 20:00 Chloride IV 10/29/18 21:35 MoWeFr ONE Lansoprazole 30 mg 10/15/18 10:00 10/26/18 22:04 Prevacid Solutab FEEDTUBE 30 mg BID RUBI Administration Lorazepam 1 mg 10/13/18 19:48 10/21/18 04:09 Ativan IV 1 mg Q4H PRN Administration agitation Metoprolol Tartrate 5 mg 10/18/18 14:05 Lopressor IV Q6HR PRN Tachyarrhythmias Multi-Ingred Cream/Lotion/Oil/Oint 1 applic 10/10/18 17:53 Artificial Tears Ophth Oint OU Q4HR PRN Dry Eye(s) Multivitamins 1 each 10/11/18 10:00 10/26/18 11:28 Theragran Tab PO Not Given DAILY RUBI Simple Syrup 15 ml 10/11/18 12:58 Simple Syrup FEEDTUBE PRN PRN Hypoglycemia Simple Syrup 30 ml 10/11/18 12:58 Simple Syrup FEEDTUBE PRN PRN Hypoglycemia Sodium Bicarbonate 325 mg 10/11/18 12:58 Sodium Bicarbonate FEEDTUBE PRN PRN For Clogged Feeding Tube Sodium Chloride 10 ml 10/10/18 22:00 10/26/18 22:05 Sodium Chloride Flush Syringe 10 Ml IV 10 ml BID RUBI Administration Sodium Chloride 10 ml 10/10/18 18:12 Sodium Chloride Flush Syringe 10 Ml IV PRN PRN LINE FLUSH
[2018-10-27] MEDS: COREG PO SCH ×2 (11:00→23:10)
[2018-10-27] MEDS: PREVACID SOLUTAB FEEDTUBE SCH ×2 (11:00→23:11)
[2018-10-27] MEDS: MEPRON PO SCH ×2 (11:01→23:11)
[2018-10-27] MEDS: THERAGRAN Tab PO SCH ×2 (11:12→16:21)
[2018-10-27] MEDS: SODIUM CHLORIDE FLUSH SYRINGE 10 ML IV SCH ×2 (11:13→23:11)
[2018-10-27 11:51] LABS: Calcium 8.6 mg/dL (8.4-10.2)
[2018-10-27] MEDS: BROVANA NEBU IH SCH ×2 (13:01→20:16)
[2018-10-27] MEDS: DUONEB *Not for PRN Use IH SCH ×3 (13:02→20:24)
--- NOTE | 2018-10-27 15:25 | Progress Note ---
Assessment and Plan Assessment and plan: patient is 43 YO Male with HIV, hypertension, previous stroke, Nicotine Dependence, presents to ED for evaluation. Patient was confused and lethargic and unable to provide history. He was seen and evaluated in ED and found to be in distress and unable to protect his airway and was therefore intubated, placed on ventilator in ER then admitted MR brain 10/11 1. Study somewhat degraded by motion artifact. 2 Areas of edema in the basal ganglia and thalami bilaterally, within the jamari and in the cerebral hemispheres bilaterally in the subcortical and deep white matter and in portions of the cortex. 3. Areas of encephalomalacia in the basal ganglia bilaterally with evidence of previous hemorrhage or mineral deposition. 4. Numerous small foci of acute infarct in the basal ganglia bilaterally, subinsular regions bilaterally and medial temporal lobes bilaterally and possibly in the occipital cortex bilaterally. The above findings may be secondary to an infectious or noninfectious etiology with a component of vasculopathy or vasculitis resulting in infarcts. Viral encephalopathies and lymphoma would need to be considered in this patient with history of HIV. Neuro ams acute metabolic encephalopathy improving /Acute CVA with Bilateral infarcts with edema Consulted Neurology, he was evaluated by DR. Valentine. Could be due to possible vasculitis - further workup pending Dysphagia/ moderate malnutrition -MBS 10/23, recommended pureed with nectar thickened liquids Hematology Anemia- stable, thrombocytopenia, leukocytosis, coagulopathy; now resolved -Status post platelet and prbc transfusion, the patient had only few schistocytes on smear, ADAMS13 91% activity ID HIV/AIDS, CD4 count 3, HIV viral load 320,000 acute bacterial PNA, CMV viremia toxo neg, CSF neg Whole blood cmv PCR was positive at 1374 abx and antiviral per ID FEN/Renal SHRUTHI- ATN, Hyperkalemia, urinary retention sp SPC on 10/12 cont HD per nephrology, no signs of renal recovery Pulm acute hypoxic resp failure on MV> 96 hours self extubated 10/16, continue supplemental oxygen CVS /Hypertensive urgency and acute systolic CHF He was treated with Cardene drip which was weaned off. Optimize medications for CHF on coreg, no mki due to high K, fluid removal by dialysis CCT 33 mins History Interval history: Patient continues to have weakness of his voice, low-grade fevers Review of systems Constitutional: , no malaise, no joint pains CVS: No chest pain, no orthopnea, no dyspnea on exertion, no pedal edema GI: No abdominal pain, no diarrhea, no vomiting, no constipation Respiratory: No shortness of breath, no wheezing, no coughing Hospitalist Physical - Physical exam Narrative exam: General.: Appears well, no distress, nontoxic HEENT: Moist mucous membranes, extraocular muscles intact, no lymphadenopathy Neck: supple Cardiac: S1-S2 heard Lungs: clear to auscultation bilaterally Abdomen: soft , nontender, nondistended, bowel sounds positive Extremities: no edema clubbing or cyanosis Skin: no rash or lesions Neurologic: no gross focal deficits Psych: calm, and cooperative - Constitutional Vitals: Temp Pulse Resp BP Pulse Ox 100.0 F H 113 H 18 135/90 100 10/27/18 11:55 10/27/18 13:18 10/27/18 13:18 10/27/18 11:55 10/27/18 13:08 General appearance: Present: no acute distress Results - Labs CBC & Chem 7: 10/29/18 09:27 10/30/18 05:00 Labs: Laboratory Last Values WBC 4.9 K/mm3 (4.5-11.0) 10/26/18 07:48 RBC 2.89 M/mm3 (3.65-5.03) L 10/26/18 07:48 Hgb 8.9 gm/dl (11.8-15.2) L 10/26/18 07:48 Hct 26.3 % (35.5-45.6) L 10/26/18 07:48 MCV 91 fl (84-94) 10/26/18 07:48 MCH 31 pg (28-32) 10/26/18 07:48 MCHC 34 % (32-34) 10/26/18 07:48 RDW 21.2 % (13.2-15.2) H 10/26/18 07:48 Plt Count 164 K/mm3 (140-440) 10/26/18 07:48 Add Manual Diff Complete 10/26/18 07:48 Total Counted 100 10/26/18 07:48 Seg Neuts % (Manual) 66.0 % (40.0-70.0) 10/26/18 07:48 Band Neutrophils % 0 % 10/26/18 07:48 Lymphocytes % (Manual) 13.0 % (13.4-35.0) L 10/26/18 07:48 Reactive Lymphs % (Man) 0 % 10/26/18 07:48 Monocytes % (Manual) 12.0 % (0.0-7.3) H 10/26/18 07:48 Eosinophils % (Manual) 8.0 % (0.0-4.3) H 10/26/18 07:48 Basophils % (Manual) 1.0 % (0.0-1.8) 10/26/18 07:48 Metamyelocytes % 0 % 10/26/18 07:48 Myelocytes % 0 % 10/26/18 07:48 Promyelocytes % 0 % 10/26/18 07:48 Blast Cells % 0 % 10/26/18 07:48 Nucleated RBC % 53.0 % (0.0-0.9) H 10/26/18 07:48 Seg Neutrophils # Man 0.0 K/mm3 (1.8-7.7) L 10/26/18 07:48 Band Neutrophils # 0.0 K/mm3 10/26/18 07:48 Abs Lymphs (Manual) 267 cells/uL (850-3900) L 10/11/18 17:36 Lymphocytes # (Manual) 0.0 K/mm3 (1.2-5.4) L 10/26/18 07:48 Abs React Lymphs (Man) 0.0 K/mm3 10/26/18 07:48 Monocytes # (Manual) 0.0 K/mm3 (0.0-0.8) 10/26/18 07:48 Eosinophils # (Manual) 0.0 K/mm3 (0.0-0.4) 10/26/18 07:48 Basophils # (Manual) 0.0 K/mm3 (0.0-0.1) 10/26/18 07:48 Metamyelocytes # 0.0 K/mm3 10/26/18 07:48 Myelocytes # 0.0 K/mm3 10/26/18 07:48 Promyelocytes # 0.0 K/mm3 10/26/18 07:48 Blast Cells # 0.0 K/mm3 10/26/18 07:48 Pathologist Review 10/15/18 03:14 WBC Morphology Not Reportable 10/26/18 07:48 Hypersegmented Neuts Not Reportable 10/26/18 07:48 Hyposegmented Neuts Not Reportable 10/26/18 07:48 Hypogranular Neuts Not Reportable 10/26/18 07:48 Smudge Cells Not Reportable 10/26/18 07:48 Toxic Granulation Not Reportable 10/26/18 07:48 Toxic Vacuolation Not Reportable 10/26/18 07:48 Dohle Bodies Not Reportable 10/26/18 07:48 Pelger-Huet Anomaly Not Reportable 10/26/18 07:48 Kartik Rods Not Reportable 10/26/18 07:48 Platelet Estimate Consistent w auto 10/26/18 07:48 Clumped Platelets Not Reportable 10/26/18 07:48 Plt Clumps, EDTA Not Reportable 10/26/18 07:48 Large Platelets Not Reportable 10/26/18 07:48 Giant Platelets Few 10/26/18 07:48 Platelet Satelliting Not Reportable 10/26/18 07:48 Plt Morphology Comment Not Reportable 10/26/18 07:48 RBC Morphology Not Reportable 10/26/18 07:48 Dimorphic RBCs Not Reportable 10/26/18 07:48 Polychromasia 1+ 10/26/18 07:48 Hypochromasia Not Reportable 10/26/18 07:48 Poikilocytosis 1+ 10/26/18 07:48 Anisocytosis 1+ 10/26/18 07:48 Microcytosis Few 10/26/18 07:48 Macrocytosis Not Reportable 10/26/18 07:48 Spherocytes Not Reportable 10/26/18 07:48 Pappenheimer Bodies Not Reportable 10/26/18 07:48 Sickle Cells Not Reportable 10/26/18 07:48 Target Cells Not Reportable 10/26/18 07:48 Tear Drop Cells Few 10/26/18 07:48 Ovalocytes Few 10/26/18 07:48 Helmet Cells 1+ 10/26/18 07:48 [place] Bodies Not Reportable 10/26/18 07:48 [place] Rings Not Reportable 10/26/18 07:48 [place] Cells Not Reportable 10/26/18 07:48 Bite Cells Not Reportable 10/26/18 07:48 Crenated Cell Not Reportable 10/26/18 07:48 Elliptocytes Not Reportable 10/26/18 07:48 Acanthocytes (Spur) Not Reportable 10/26/18 07:48 Rouleaux Not Reportable 10/26/18 07:48 Hemoglobin C Crystals Not Reportable 10/26/18 07:48 Schistocytes Not Reportable 10/26/18 07:48 Malaria parasites Not Reportable 10/26/18 07:48 Jv Bodies Not Reportable 10/26/18 07:48 Hem Pathologist Commnt No 10/26/18 07:48 PT 14.5 Sec. (12.2-14.9) 10/15/18 00:59 INR 1.06 (0.87-1.13) 10/15/18 00:59 APTT 27.9 Sec. (24.2-36.6) 10/10/18 15:02 Thrombin Time 16.9 Sec. (15.1-19.6) 10/10/18 15:02 POC ABG pH 7.535 (7.35-7.45) H 10/21/18 09:49 POC ABG pCO2 32.0 (35-45) L 10/21/18 09:49 POC ABG pO2 57 (80-105) L 10/21/18 09:49 POC ABG HCO3 27.1 10/21/18 09:49 POC ABG Total CO2 28 10/21/18 09:49 POC ABG O2 Sat 93 10/21/18 09:49 POC ABG Base Excess 4 10/21/18 09:49 FiO2 21 % 10/21/18 09:49 Sodium 139 mmol/L (137-145) 10/27/18 10:39 Potassium 4.5 mmol/L (3.6-5.0) 10/27/18 10:39 Chloride 96.5 mmol/L (98-107) L 10/27/18 10:39 Carbon Dioxide 21 mmol/L (22-30) L 10/27/18 10:39 Anion Gap 26 mmol/L 10/27/18 10:39 BUN 45 mg/dL (9-20) H 10/27/18 10:39 Creatinine 7.4 mg/dL (0.8-1.5) H 10/27/18 10:39 Estimated GFR 10 ml/min 10/27/18 10:39 BUN/Creatinine Ratio 6 % 10/27/18 10:39 Glucose 170 mg/dL (75-100) H 10/27/18 10:39 POC Glucose 139 (70-105) H 10/20/18 13:07 Osmolality 338 Mosm/kg 10/11/18 17:35 Lactic Acid 1.80 mmol/L (0.7-2.0) 10/12/18 05:59 Uric Acid 13.4 mg/dL (3.5-7.6) H 10/11/18 17:36 Calcium 8.6 mg/dL (8.4-10.2) 10/27/18 10:39 Phosphorus 8.30 mg/dL (2.5-4.5) H 10/25/18 10:00 Magnesium 3.10 mg/dL (1.7-2.3) H 10/18/18 05:03 Iron 147 ug/dL (49-181) 10/11/18 17:36 TIBC 236 mcg/dL (250-450) L 10/11/18 17:36 Ferritin 67691.0 ng/mL (13.0-400.0) H 10/11/18 17:35 Total Bilirubin 0.40 mg/dL (0.1-1.2) 10/25/18 10:00 Direct Bilirubin 0.2 mg/dL (0-0.2) 10/16/18 04:07 Indirect Bilirubin 0.3 mg/dL 10/16/18 04:07 AST 46 units/L (5-40) H 10/25/18 10:00 ALT 21 units/L (7-56) 10/25/18 10:00 Alkaline Phosphatase 102 units/L (35-129) 10/25/18 10:00 Ammonia 25.0 umol/L (25-60) 10/17/18 14:59 Lactate Dehydrogenase 925 units/L (91-180) H 10/22/18 05:51 Troponin T 0.272 ng/mL (0.00-0.029) H* 10/10/18 18:07 NT-Pro-B Natriuret Pep 56314 pg/mL (0-450) H 10/10/18 15:42 Total Protein 8.1 g/dL (6.3-8.2) 10/25/18 10:00 Albumin 3.5 g/dL (3.9-5) L 10/25/18 10:00 Albumin/Globulin Ratio 0.8 % 10/25/18 10:00 Triglycerides 329 mg/dL (2-149) H 10/10/18 15:02 Cholesterol 234 mg/dL (50-199) H 10/10/18 15:02 LDL Cholesterol Direct 139 mg/dL (50-130) H 10/10/18 15:02 HDL Cholesterol 42 mg/dL (40-59) 10/10/18 15:02 Cholesterol/HDL Ratio 5.57 % 10/10/18 15:02 Vitamin B12 912.3 pg/mL (211-911) H 10/14/18 08:51 Folate 8.32 ng/mL (7.3-26.0) 10/14/18 08:51 PTH Intact 388.7 pg/mL (15-65) H 10/25/18 10:00 Urine Creatinine 30.8 mg/dL (0.1-20.0) H 10/13/18 04:43 Urine Sodium 106 mmol/L 10/13/18 04:43 Urine Total Protein 75 mg/dL (5-11.8) H 10/13/18 04:43 CSF Appearance Clear 10/16/18 15:00 CSF Color Colorless 10/16/18 15:00 CSF WBC 4 /mm3 (1-10) 10/16/18 15:00 CSF RBC 113 /mm3 (0-0) 10/16/18 15:00 CSF Seg Neutrophils 8.0 % (0-6) 10/16/18 15:00 CSF Lymphocytes % 76.0 % (40-80) 10/16/18 15:00 CSF Reactive Lymphs 2.0 % 10/16/18 15:00 CSF Monocytes % 14.0 % (15-45) 10/16/18 15:00 CSF Eosinophils % 0 % 10/16/18 15:00 CSF Basophils 0 % 10/16/18 15:00 CSF Pathologist Review C 10/16/18 15:00 CSF Glucose 73 mg/dL 10/16/18 15:00 CSF Total Protein 55 mg/dL 10/16/18 15:00 CSF VDRL Nonreactive (Nonreactive) 10/16/18 15:00 Random Vancomycin 7.0 ug/mL (0-40.0) 10/26/18 04:54 Immunofix Electrophor see below 10/11/18 17:36 RENO Screen Negative (Negative) 10/21/18 15:07 Proteinase 3 (PR3) Ab <1.0 AI (<1.0) 10/21/18 15:07 Myeloperoxidase Ab <1.0 AI (<1.0) 10/21/18 15:07 Lymph Enumerat CD4/CD8 0.01 (0.86-5.00) L 10/11/18 17:36 % CD3 Cells 85 % (57-85) 10/11/18 17:36 Absolute CD3 Count 226 cells/uL (840-3060) L 10/11/18 17:36 % CD4 Cells 1 % (30-61) L 10/11/18 17:36 Absolute CD4 Count 3 cells/uL (490-1740) L 10/11/18 17:36 % CD8 Cells 82 % (12-42) H 10/11/18 17:36 Absolute CD8 Count 228 cells/uL (180-1170) 10/11/18 17:36 % CD19 Cells 6 % (6-29) 10/11/18 17:36 Absolute CD19 Count 16 cells/uL (110-660) L 10/11/18 17:36 RPR Titer 1:32 10/11/18 17:37 RPR Reactive (Nonreactive) 10/11/18 17:37 T.pallidum Ab (FTA-ABS) Reactive (Nonreactive) H 10/12/18 Unknown CMV DNA PCR log copper tapper/mL See scanned result 10/11/18 17:37 Hepatitis A IgM Ab Non-reactive (NonReactive) 10/11/18 17:34 Hep Bs Antigen Non-reactive (Negative) 10/11/18 17:34 Hep B Core IgM Ab Non-reactive (NonReactive) 10/11/18 17:34 Hepatitis C Antibody Non-reactive (NonReactive) 10/11/18 17:34 HIV-1 RNA PCR copies/ml [id number] Copies/mL H 10/11/18 17:36 HIV-1 RNA (PCR) log 5.51 Log cps/mL H 10/11/18 17:36 Toxoplasma IgG Ab <7.20 IU/mL (<7.20) 10/13/18 07:54 Miscellaneous Test Flexitest 1 10/16/18 15:00 Blood Type A POSITIVE 10/23/18 09:12 Antibody Screen Negative 10/23/18 09:12 Crossmatch See Detail 10/23/18 09:12 Nutrition/Malnutrition Assess - Dietary Evaluation Nutrition/Malnutrition Findings: Nutrition Notes Start: 10/11/18 11:14 Freq: Status: Active Protocol: Document 10/26/18 16:17 RM (Rec: 10/26/18 16:23 RM [id number]) Nutrition Notes Initial or Follow up Reassessment Current Diagnosis Acute Kidney Injury,CKD(stage I-IV),Hypertension,Stroke Other Pertinent Diagnosis Acute encephalopathy, HIV/AIDS , Syphilis Current Diet Pureed w/nectar thick liquids Labs/Tests BUN 42, Creat 6.5 Pertinent Medications Reviewed Height 5 ft 9 in Weight 72 kg [place] Body Weight (kg) 72.72 BMI 23.4 Subjective/Other Information Pureed w/nectar thick liquids diet recommended per ST note . Pt not in room at time of visit. Recorded PO intake 0% X 2 meals. Percent of energy/protein needs met: 0%/0% Burn Absent Trauma Absent #1 Nutrition Diagnosis Inadequate oral intake Diagnosis Progress(for reassessment Continues documentation) Is patient on ventilator? No Is Patient Ambulatory and/or Out of Bed No REE-([facility]-confined to bed) [phone] Calculation Used for Recommendations [facility] Additional Notes Pro needs 1-1.2g/k-78g/ day Fluid needs 1ml/kcal Nutrition Intervention Add Supplement/Snack (indicate name/kcal Nepro 1 daily /protein ) Provides kCal: 425 Provides Protein (gm) 19 Goal #1 Meet at least 75% of calorie and protein needs via PO and ONS intakes Anticipated Discharge Needs: Pureed diet Follow-Up By: 10/29/18 Additional Comments Follow for PO and ONS intakes
[2018-10-27] MEDS: ROCEPHIN/NS 2 GM/100 ML 2 GM/100 ML BAG IV SCH ×4 (16:18→16:26)
[2018-10-27] MEDS: NORVASC PO SCH (16:22)
--- NOTE | 2018-10-28 00:01 | Hem/Onc Progress Note ---
Assessment and Plan 1. Anemia. At admission, hemoglobin was 8.1, later low and s/p Transfusion support. 2. Platelets at admission was 20. 3. White cell count was elevated. 4. PT/INR h/o slightly elevated. 5. Renal failure. 6. ALT elevated. 7. The patient has multiple medical issues. PLAN: I will ask for a smear evaluation. I will call the lab for same. Supportive care in the interim while we looked for primary etiology. 3/ - plt better - s/p transfusion d/w dr rain and dr carrillo 10/14 - low plt - rasta ctive bleed suprapubic catheter 10/15 - plt were rising and again going down' pt had got plt transfusion LDH high - [id number] ordered smear - ordererd LDH may be high in other causes too - renal etc 10/16 - d/w path - not many schistocytes on smear - ADAMTS 13 ordered extubated 10/17 - plt low - path review ordered d/w armin monsalve 10/18 - path report pending plt low - but no active bleeding 10/19 - pt more alert - follows commands no bleeding 10/20 pt SOB - d/w Dr Monsalve and RN plt low - but no bleeding NGT+ more awake 10/21 - pt in IMC plt >100 - more awake 10/22 - clinically better - moves all 4 limbs 10/23 - clinically stable - prbc suport 10/24 - as per RN -pt passed barium - for thickened diet pt has suprapubic got PRBC plt improving 10/25 - clinically better no active bleeding 10/26 - moving all extremity -communicating repeat cbc 10/27 - labs better - clinically improving - Patient Problems (1) Thrombocytopenia associated with AIDS Current Visit: Yes Status: Acute Subjective Date of service: 10/27/18 Principal diagnosis: low plt and anemia Interval history: feeling better d/w RN Objective - Constitutional Vitals: Last Vital Signs Temp 100.0 F H 10/27/18 22:45 Pulse 126 H 10/27/18 22:45 Resp 22 10/27/18 22:45 BP 143/101 10/27/18 22:45 Pulse Ox 99 10/27/18 22:45 Pain Intensity (0-10): denies any pain General appearance: no acute distress Performance status: 3-limited selfcare - EENT Eyes: EOM intact ENT: clear oral mucosa Lymph node exam: negative cervical - Neck Neck: normal ROM - Respiratory Respiratory effort: Positive: normal - Cardiovascular Heart Sounds: Present: S1 & S2 Extremities: No edema - Gastrointestinal General gastrointestinal: Present: soft, non-tender Rectal Exam: deferred - Genitourinary Male genitourinary: Present: deferred - Integumentary Integumentary: warm - Musculoskeletal Musculoskeletal: strength equal bilaterally - Neurologic Neurologic: moves all extremities - Psychiatric Psychiatric: appropriate mood/affect - Labs Lab Results: Laboratory Results - last 24 hr 10/27/18 10:39 Sodium 139 Potassium 4.5 Chloride 96.5 L Carbon Dioxide 21 L Anion Gap 26 BUN 45 H Creatinine 7.4 H Estimated GFR 10 BUN/Creatinine Ratio 6 Glucose 170 H Calcium 8.6 Medications & Allergies - Medications Allergies/Adverse Reactions: Allergies Sulfa (Sulfonamide Antibiotics) Allergy (Verified 10/10/18 16:54) Unknown Home Medications: Home Medications Medication Instructions Recorded Confirmed Last Taken Type Acetaminophen [Tylenol] 1,000 mg PO Q6HR 10/10/18 10/10/18 Unknown History Amlodipine Besylate [Norvasc] 10 mg PO QDAY 10/10/18 10/10/18 Unknown History Aspirin [Adult Aspirin] 81 mg PO DAILY 10/10/18 10/10/18 Unknown History Atorvastatin [Lipitor Tab] 80 mg PO DAILY 10/10/18 10/10/18 Unknown History Losartan [Cozaar] 100 mg PO QDAY 10/10/18 10/10/18 Unknown History Multivitamin [Multiple Vitamins] 1 each PO DAILY 10/10/18 10/10/18 Unknown History hydroCHLOROthiazide [HCTZ] 25 mg PO QDAY 10/10/18 10/10/18 Unknown History Active Medications: Generic Name Dose Route Start Last Admin Trade Name Freq PRN Reason Stop Dose Admin Acetaminophen 500 mg 10/16/18 10:02 10/21/18 23:30 Tylenol PO 500 mg Q6H PRN Administration Fever >101 Albuterol 2.5 mg 10/10/18 18:12 Proventil IH Q3HRT PRN Shortness Of Breath Albuterol/Ipratropium 1 ampul 10/25/18 08:00 10/27/18 20:24 Duoneb *Not For Prn Use* IH Not Given TIDRT RUBI Amlodipine Besylate 10 mg 10/11/18 10:00 10/27/18 16:22 Norvasc PO Not Given QDAY RUBI Lipase/Protease/Amylase 1 each 10/11/18 12:58 Pancrebecka Reed 10,500 Unit FEEDTUBE PRN PRN For Clogged Feeding Tube Arformoterol Tartrate 15 mcg 10/20/18 11:45 10/27/18 20:16 Brovana Nebu IH 15 mcg Q12HRT RUBI Administration Atovaquone 750 mg 10/18/18 10:00 10/27/18 23:11 Mepron PO 750 mg BID RUBI Administration Carvedilol 12.5 mg 10/22/18 22:00 10/27/18 23:10 Coreg PO 12.5 mg BID RUBI Administration Haloperidol Lactate 5 mg 10/13/18 19:45 10/20/18 21:08 Haldol IV 5 mg Q6H PRN Administration Agitation Hydralazine HCl 10 mg 10/12/18 15:50 10/18/18 06:36 Apresoline IV 10 mg Q4HR PRN Administration SBP>175 or DBP>115 Hydrophilic Ointment 1 applic 10/10/18 17:53 Vaseline Lip Therapy TP Q2HR PRN Dry Lips Ganciclovir Sodium 80 mg/ 250 mls @ 100 mls/hr 10/15/18 20:00 10/26/18 22:03 Sodium Chloride IV 10/28/18 23:59 100 mls/hr MoWeFr RUBI Administration Sodium Chloride 100 mls @ 999 mls/hr 10/20/18 09:54 Nacl 0.9% IV CHON PRN Hypotension Ceftriaxone Sodium 2 gm in 100 mls @ 200 mls/hr 10/21/18 15:00 10/27/18 16:26 Rocephin/Ns 2 Gm/100 Ml IV Not Given Q24HR RUBI Protocol Vancomycin HCl 750 mg/ Sodium 265 mls @ 166.667 mls/hr 10/29/18 20:00 Chloride IV 10/29/18 21:35 MoWeFr ONE Lansoprazole 30 mg 10/15/18 10:00 10/27/18 23:11 Prevacid Solutab FEEDTUBE 30 mg BID RUBI Administration Lorazepam 1 mg 10/13/18 19:48 10/21/18 04:09 Ativan IV 1 mg Q4H PRN Administration agitation Metoprolol Tartrate 5 mg 10/18/18 14:05 Lopressor IV Q6HR PRN Tachyarrhythmias Multi-Ingred Cream/Lotion/Oil/Oint 1 applic 10/10/18 17:53 Artificial Tears Ophth Oint OU Q4HR PRN Dry Eye(s) Multivitamins 1 each 10/11/18 10:00 10/27/18 16:21 Theragran Tab PO Not Given DAILY RUBI Simple Syrup 15 ml 10/11/18 12:58 Simple Syrup FEEDTUBE PRN PRN Hypoglycemia Simple Syrup 30 ml 10/11/18 12:58 Simple Syrup FEEDTUBE PRN PRN Hypoglycemia Sodium Bicarbonate 325 mg 10/11/18 12:58 Sodium Bicarbonate FEEDTUBE PRN PRN For Clogged Feeding Tube Sodium Chloride 10 ml 10/10/18 22:00 10/27/18 23:11 Sodium Chloride Flush Syringe 10 Ml IV 10 ml BID RUBI Administration Sodium Chloride 10 ml 10/10/18 18:12 Sodium Chloride Flush Syringe 10 Ml IV PRN PRN LINE FLUSH
[2018-10-28 07:16] LABS: Calcium 8.9 mg/dL (8.4-10.2)
[2018-10-28] MEDS: BROVANA NEBU IH SCH ×2 (09:33→21:07)
[2018-10-28] MEDS: DUONEB *Not for PRN Use IH SCH ×3 (09:33→21:08)
[2018-10-28] MEDS: THERAGRAN Tab PO SCH (09:37)
[2018-10-28] MEDS: NORVASC PO SCH (09:39)
[2018-10-28] MEDS: MEPRON PO SCH ×2 (09:40→22:22)
[2018-10-28] MEDS: PREVACID SOLUTAB FEEDTUBE SCH ×2 (09:43→22:22)
[2018-10-28] MEDS: SODIUM CHLORIDE FLUSH SYRINGE 10 ML IV SCH ×2 (09:43→22:23)
[2018-10-28] MEDS: COREG PO SCH ×2 (09:43→22:22)
[2018-10-28] MEDS: ROCEPHIN/NS 2 GM/100 ML 2 GM/100 ML BAG IV SCH (09:44)
--- NOTE | 2018-10-28 11:47 | Hem/Onc Progress Note ---
Assessment and Plan 1. Anemia. At admission, hemoglobin was 8.1, later low and s/p Transfusion support. 2. Platelets at admission was 20. 3. White cell count was elevated. 4. PT/INR h/o slightly elevated. 5. Renal failure. 6. ALT elevated. 7. The patient has multiple medical issues. PLAN: I will ask for a smear evaluation. I will call the lab for same. Supportive care in the interim while we looked for primary etiology. 3 - plt better - s/p transfusion d/w dr rain and dr carrillo 10/14 - low plt - rasta ctive bleed suprapubic catheter 10/15 - plt were rising and again going down' pt had got plt transfusion LDH high - [id number] ordered smear - ordererd LDH may be high in other causes too - renal etc 10/16 - d/w path - not many schistocytes on smear - ADAMTS 13 ordered extubated 10/17 - plt low - path review ordered d/w armin monsalve 10/18 - path report pending plt low - but no active bleeding 10/19 - pt more alert - follows commands no bleeding 10/20 pt SOB - d/w Dr Monsalve and RN plt low - but no bleeding NGT+ more awake 10/21 - pt in [facility] plt >100 - more awake 10/22 - clinically better - moves all 4 limbs 10/23 - clinically stable - prbc suport 10/24 - as per RN -pt passed barium - for thickened diet pt has suprapubic got PRBC plt improving 10/25 - clinically better no active bleeding 10/26 - moving all extremity -communicating repeat cbc 10/27 - labs better - clinically improving 10/28 - plt now normal - hb better - s/p PRBC recent CKD may have a role - Patient Problems (1) Thrombocytopenia associated with AIDS Current Visit: Yes Status: Acute (2) Anemia Current Visit: Yes Status: Acute Qualifiers: Anemia type: due to chronic kidney disease Chronic kidney disease stage: unspecified stage Qualified Code(s): N18.9 - Chronic kidney disease, unspecified; D63.1 - Anemia in chronic kidney disease Subjective Date of service: 10/28/18 Principal diagnosis: anemia - low plt Interval history: pt clinically better- d/w RN Objective - Constitutional Vitals: Last Vital Signs Temp 98.8 F 10/28/18 05:32 Pulse 121 H 10/28/18 09:34 Resp 20 10/28/18 05:32 BP 135/94 10/28/18 09:43 Pulse Ox 98 10/28/18 09:35 Pain Intensity (0-10): denies any pain General appearance: no acute distress Performance status: 3-limited selfcare - EENT Eyes: EOM intact ENT: clear oral mucosa Lymph node exam: negative cervical - Neck Neck: normal ROM - Respiratory Respiratory effort: Positive: normal Respiratory: bilateral: CTA - Cardiovascular Heart Sounds: Present: S1 & S2 Extremities: No edema - Gastrointestinal General gastrointestinal: Present: soft, non-tender Rectal Exam: deferred - Genitourinary Male genitourinary: Present: deferred - Integumentary Integumentary: warm - Musculoskeletal Musculoskeletal: strength equal bilaterally - Neurologic Neurologic: moves all extremities - Labs Lab Results: Laboratory Results - last 24 hr 10/27/18 10/28/18 10:39 06:11 Sodium 139 139 Potassium 4.5 5.1 H Chloride 96.5 L 95.8 L Carbon Dioxide 21 L 19 L Anion Gap 26 29 BUN 45 H 71 H Creatinine 7.4 H 9.9 H Estimated GFR 10 7 BUN/Creatinine Ratio 6 7 Glucose 170 H 102 H Calcium 8.6 8.9 Medications & Allergies - Medications Allergies/Adverse Reactions: Allergies Sulfa (Sulfonamide Antibiotics) Allergy (Verified 10/10/18 16:54) Unknown Home Medications: Home Medications Medication Instructions Recorded Confirmed Last Taken Type Acetaminophen [Tylenol] 1,000 mg PO Q6HR 10/10/18 10/10/18 Unknown History Amlodipine Besylate [Norvasc] 10 mg PO QDAY 10/10/18 10/10/18 Unknown History Aspirin [Adult Aspirin] 81 mg PO DAILY 10/10/18 10/10/18 Unknown History Atorvastatin [Lipitor Tab] 80 mg PO DAILY 10/10/18 10/10/18 Unknown History Losartan [Cozaar] 100 mg PO QDAY 10/10/18 10/10/18 Unknown History Multivitamin [Multiple Vitamins] 1 each PO DAILY 10/10/18 10/10/18 Unknown History hydroCHLOROthiazide [HCTZ] 25 mg PO QDAY 10/10/18 10/10/18 Unknown History Active Medications: Generic Name Dose Route Start Last Admin Trade Name Freq PRN Reason Stop Dose Admin Acetaminophen 500 mg 10/16/18 10:02 10/21/18 23:30 Tylenol PO 500 mg Q6H PRN Administration Fever >101 Albuterol 2.5 mg 10/10/18 18:12 Proventil IH Q3HRT PRN Shortness Of Breath Albuterol/Ipratropium 1 ampul 10/25/18 08:00 10/28/18 09:33 Duoneb *Not For Prn Use* IH Not Given TIDRT RUBI Amlodipine Besylate 10 mg 10/11/18 10:00 10/28/18 09:39 Norvasc PO 10 mg QDAY RUIB Administration Lipase/Protease/Amylase 1 each 10/11/18 12:58 Pancreazkarlos Reed 10,500 Unit FEEDTUBE PRN PRN For Clogged Feeding Tube Arformoterol Tartrate 15 mcg 10/20/18 11:45 10/28/18 09:33 Brovana Nebu IH Not Given Q12HRT [facility] Atovaquone 750 mg 10/18/18 10:00 10/28/18 09:40 Mepron PO 750 mg BID RUBI Administration Carvedilol 12.5 mg 10/22/18 22:00 10/28/18 09:43 Coreg PO 12.5 mg BID RUBI Administration Haloperidol Lactate 5 mg 10/13/18 19:45 10/20/18 21:08 Haldol IV 5 mg Q6H PRN Administration Agitation Hydralazine HCl 10 mg 10/12/18 15:50 10/18/18 06:36 Apresoline IV 10 mg Q4HR PRN Administration SBP>175 or DBP>115 Hydrophilic Ointment 1 applic 10/10/18 17:53 Vaseline Lip Therapy TP Q2HR PRN Dry Lips Ganciclovir Sodium 80 mg/ 250 mls @ 100 mls/hr 10/15/18 20:00 10/26/18 22:03 Sodium Chloride IV 10/28/18 23:59 100 mls/hr MoWeFr RUBI Administration Sodium Chloride 100 mls @ 999 mls/hr 10/20/18 09:54 Nacl 0.9% IV CHON PRN Hypotension Ceftriaxone Sodium 2 gm in 100 mls @ 200 mls/hr 10/21/18 15:00 10/28/18 09:44 Rocephin/Ns 2 Gm/100 Ml IV 200 mls/hr Q24HR RUBI Administration Protocol Vancomycin HCl 750 mg/ Sodium 265 mls @ 166.667 mls/hr 10/29/18 20:00 Chloride IV 10/29/18 21:35 MoWeFr ONE Lansoprazole 30 mg 10/15/18 10:00 10/28/18 09:43 Prevacid Solutab FEEDTUBE 30 mg BID RUBI Administration Lorazepam 1 mg 10/13/18 19:48 10/21/18 04:09 Ativan IV 1 mg Q4H PRN Administration agitation Metoprolol Tartrate 5 mg 10/18/18 14:05 Lopressor IV Q6HR PRN Tachyarrhythmias Multi-Ingred Cream/Lotion/Oil/Oint 1 applic 10/10/18 17:53 Artificial Tears Ophth Oint OU Q4HR PRN Dry Eye(s) Multivitamins 1 each 10/11/18 10:00 10/28/18 09:37 Theragran Tab PO 1 each DAILY RUBI Administration Simple Syrup 15 ml 10/11/18 12:58 Simple Syrup FEEDTUBE PRN PRN Hypoglycemia Simple Syrup 30 ml 10/11/18 12:58 Simple Syrup FEEDTUBE PRN PRN Hypoglycemia Sodium Bicarbonate 325 mg 10/11/18 12:58 Sodium Bicarbonate FEEDTUBE PRN PRN For Clogged Feeding Tube Sodium Chloride 10 ml 10/10/18 22:00 10/28/18 09:43 Sodium Chloride Flush Syringe 10 Ml IV 10 ml BID RUBI Administration Sodium Chloride 10 ml 10/10/18 18:12 Sodium Chloride Flush Syringe 10 Ml IV PRN PRN LINE FLUSH
--- NOTE | 2018-10-28 12:24 | Progress Note ---
Assessment and Plan Impression * Acute renal failure. Most likely secondary to ATN * Respiratory failure * Encephalopathy * Sepsis * cardiomyopathy--ef 35% * Anemia * Thrombocytopenia * HIV disease Recommendations * Patient remains oliguric. No evidence of renal recovery at this time * renal diet * HD q MWF * follow up lytes daily * He most likely has ATN * Avoid nephrotoxins * Adjust meds for GFR less than 10 * Monitor fluid status and electrolytes closely * Consultants notes appreciated * outpatient hd placement for hd Subjective Date of service: 10/28/18 Principal diagnosis: low plt and anemia Interval history: resting well in bed today Objective - Exam Narrative Exam: HEENT: Oral mucosa moist no pallor or icterus Neck: Supple no JVD Chest: Clear to auscultation anteriorly CVS: Regular rate and rhythm S1 and S2 heard Abdomen: Soft nontender no suprapubic masses no organomegaly appreciable Extremity: Dry skin less than 1+ peripheral edema Musculoskeletal: No joint effusion noted in knees and ankle Neurological: Alert awake Dermatology: No petechial rashes Psychiatry: No evidence of any agitation and aggression noted - Vital Signs Vital signs: Vital Signs - 12hr 10/28/18 10/28/18 10/28/18 05:32 09:34 09:35 Temperature 98.8 F Pulse Rate 117 H Pulse Rate [ 121 H Bilateral Throughout] Respiratory 20 Rate Blood Pressure 139/98 O2 Sat by Pulse 98 98 Oximetry 10/28/18 10/28/18 09:39 09:43 Temperature Pulse Rate Pulse Rate [ Bilateral Throughout] Respiratory Rate Blood Pressure 135/94 135/94 O2 Sat by Pulse Oximetry - Lab 10/26/18 07:48 10/28/18 06:11 Most recent lab results Calcium 8.9 mg/dL (8.4-10.2) 10/28/18 06:11 Phosphorus 8.30 mg/dL (2.5-4.5) H 10/25/18 10:00 Magnesium 3.10 mg/dL (1.7-2.3) H 10/18/18 05:03 Urine Creatinine 30.8 mg/dL (0.1-20.0) H 10/13/18 04:43 Urine Sodium 106 mmol/L 10/13/18 04:43 Urine Total Protein 75 mg/dL (5-11.8) H 10/13/18 04:43 Medications & Allergies - Medications Allergies/Adverse Reactions: Allergies Sulfa (Sulfonamide Antibiotics) Allergy (Verified 10/10/18 16:54) Unknown Home Medications: Home Medications Medication Instructions Recorded Confirmed Last Taken Type Acetaminophen [Tylenol] 1,000 mg PO Q6HR 10/10/18 10/10/18 Unknown History Amlodipine Besylate [Norvasc] 10 mg PO QDAY 10/10/18 10/10/18 Unknown History Aspirin [Adult Aspirin] 81 mg PO DAILY 10/10/18 10/10/18 Unknown History Atorvastatin [Lipitor Tab] 80 mg PO DAILY 10/10/18 10/10/18 Unknown History Losartan [Cozaar] 100 mg PO QDAY 10/10/18 10/10/18 Unknown History Multivitamin [Multiple Vitamins] 1 each PO DAILY 10/10/18 10/10/18 Unknown History hydroCHLOROthiazide [HCTZ] 25 mg PO QDAY 10/10/18 10/10/18 Unknown History Active Medications: Generic Name Dose Route Start Last Admin Trade Name Freq PRN Reason Stop Dose Admin Acetaminophen 500 mg 10/16/18 10:02 10/21/18 23:30 Tylenol PO 500 mg Q6H PRN Administration Fever >101 Albuterol 2.5 mg 10/10/18 18:12 Proventil IH Q3HRT PRN Shortness Of Breath Albuterol/Ipratropium 1 ampul 10/25/18 08:00 10/28/18 09:33 Duoneb *Not For Prn Use* IH Not Given TIDRT RUBI Amlodipine Besylate 10 mg 10/11/18 10:00 10/28/18 09:39 Norvasc PO 10 mg QDAY RUBI Administration Lipase/Protease/Amylase 1 each 10/11/18 12:58 Pancrebecka Reed 10,500 Unit FEEDTUBE PRN PRN For Clogged Feeding Tube Arformoterol Tartrate 15 mcg 10/20/18 11:45 10/28/18 09:33 Blade Menendez IH Not Given Q12HRT RUBI Atovaquone 750 mg 10/18/18 10:00 10/28/18 09:40 Mepron PO 750 mg BID RUBI Administration Carvedilol 12.5 mg 10/22/18 22:00 10/28/18 09:43 Coreg PO 12.5 mg BID RUBI Administration Haloperidol Lactate 5 mg 10/13/18 19:45 10/20/18 21:08 Haldol IV 5 mg Q6H PRN Administration Agitation Hydralazine HCl 10 mg 10/12/18 15:50 10/18/18 06:36 Apresoline IV 10 mg Q4HR PRN Administration SBP>175 or DBP>115 Hydrophilic Ointment 1 applic 10/10/18 17:53 Vaseline Lip Therapy TP Q2HR PRN Dry Lips Ganciclovir Sodium 80 mg/ 250 mls @ 100 mls/hr 10/15/18 20:00 10/26/18 22:03 Sodium Chloride IV 10/28/18 23:59 100 mls/hr MoWeFr RUBI Administration Sodium Chloride 100 mls @ 999 mls/hr 10/20/18 09:54 Nacl 0.9% IV CHON PRN Hypotension Ceftriaxone Sodium 2 gm in 100 mls @ 200 mls/hr 10/21/18 15:00 10/28/18 09:44 Rocephin/Ns 2 Gm/100 Ml IV 200 mls/hr Q24HR RUBI Administration Protocol Vancomycin HCl 750 mg/ Sodium 265 mls @ 166.667 mls/hr 10/29/18 20:00 Chloride IV 10/29/18 21:35 MoWeFr ONE Lansoprazole 30 mg 10/15/18 10:00 10/28/18 09:43 Prevacid Solutab FEEDTUBE 30 mg BID RUBI Administration Lorazepam 1 mg 10/13/18 19:48 10/21/18 04:09 Ativan IV 1 mg Q4H PRN Administration agitation Metoprolol Tartrate 5 mg 10/18/18 14:05 Lopressor IV Q6HR PRN Tachyarrhythmias Multi-Ingred Cream/Lotion/Oil/Oint 1 applic 10/10/18 17:53 Artificial Tears Ophth Oint OU Q4HR PRN Dry Eye(s) Multivitamins 1 each 10/11/18 10:00 10/28/18 09:37 Theragran Tab PO 1 each DAILY RUBI Administration Simple Syrup 15 ml 10/11/18 12:58 Simple Syrup FEEDTUBE PRN PRN Hypoglycemia Simple Syrup 30 ml 10/11/18 12:58 Simple Syrup FEEDTUBE PRN PRN Hypoglycemia Sodium Bicarbonate 325 mg 10/11/18 12:58 Sodium Bicarbonate FEEDTUBE PRN PRN For Clogged Feeding Tube Sodium Chloride 10 ml 10/10/18 22:00 10/28/18 09:43 Sodium Chloride Flush Syringe 10 Ml IV 10 ml BID RUBI Administration Sodium Chloride 10 ml 10/10/18 18:12 Sodium Chloride Flush Syringe 10 Ml IV PRN PRN LINE FLUSH
--- NOTE | 2018-10-28 15:29 | Progress Note ---
Assessment and Plan Assessment and plan: patient is 43 YO Male with HIV, hypertension, previous stroke, Nicotine Dependence, presents to ED for evaluation. Patient was confused and lethargic and unable to provide history. He was seen and evaluated in ED and found to be in distress and unable to protect his airway and was therefore intubated, placed on ventilator in ER then admitted MR brain 10/11 1. Study somewhat degraded by motion artifact. 2 Areas of edema in the basal ganglia and thalami bilaterally, within the jamari and in the cerebral hemispheres bilaterally in the subcortical and deep white matter and in portions of the cortex. 3. Areas of encephalomalacia in the basal ganglia bilaterally with evidence of previous hemorrhage or mineral deposition. 4. Numerous small foci of acute infarct in the basal ganglia bilaterally, subinsular regions bilaterally and medial temporal lobes bilaterally and possibly in the occipital cortex bilaterally. The above findings may be secondary to an infectious or noninfectious etiology with a component of vasculopathy or vasculitis resulting in infarcts. Viral encephalopathies and lymphoma would need to be considered in this patient with history of HIV. Neuro ams acute metabolic encephalopathy improving /Acute CVA with Bilateral infarcts with edema Consulted Neurology, he was evaluated by DR. Valentine. Could be due to possible vasculitis - further workup pending Dysphagia/ moderate malnutrition -MBS 10/23, recommended pureed with nectar thickened liquids Hematology Anemia- stable, thrombocytopenia, leukocytosis, coagulopathy; now resolved -Status post platelet and prbc transfusion, the patient had only few schistocytes on smear, ADAMS13 91% activity ID HIV/AIDS, CD4 count 3, HIV viral load 320,000 acute bacterial PNA, CMV viremia toxo neg, CSF neg Whole blood cmv PCR was positive at 1374 abx and antiviral per ID FEN/Renal SHRUTHI- ATN, Hyperkalemia, urinary retention sp SPC on 10/12 cont HD per nephrology, no signs of renal recovery Pulm acute hypoxic resp failure on MV> 96 hours self extubated 10/16, continue supplemental oxygen CVS /Hypertensive urgency and acute systolic CHF He was treated with Cardene drip which was weaned off. Optimize medications for CHF on coreg, no mik due to high K, fluid removal by dialysis CCT 33 mins History Interval history: Patient continues to have weakness of his voice, low-grade fevers Review of systems Constitutional: , no malaise, no joint pains CVS: No chest pain, no orthopnea, no dyspnea on exertion, no pedal edema GI: No abdominal pain, no diarrhea, no vomiting, no constipation Respiratory: No shortness of breath, no wheezing, no coughing Hospitalist Physical - Physical exam Narrative exam: General.: Appears well, no distress, nontoxic HEENT: Moist mucous membranes, extraocular muscles intact, no lymphadenopathy Neck: supple Cardiac: S1-S2 heard Lungs: clear to auscultation bilaterally Abdomen: soft , nontender, nondistended, bowel sounds positive Extremities: no edema clubbing or cyanosis Skin: no rash or lesions Neurologic: no gross focal deficits Psych: calm, and cooperative - Constitutional Vitals: Temp Pulse Resp BP Pulse Ox 98.8 F 121 H 20 135/94 98 10/28/18 05:32 10/28/18 09:34 10/28/18 05:32 10/28/18 09:43 10/28/18 09:35 General appearance: Present: no acute distress Results - Labs CBC & Chem 7: 10/29/18 09:27 10/30/18 05:00 Labs: Laboratory Last Values WBC 4.9 K/mm3 (4.5-11.0) 10/26/18 07:48 RBC 2.89 M/mm3 (3.65-5.03) L 10/26/18 07:48 Hgb 8.9 gm/dl (11.8-15.2) L 10/26/18 07:48 Hct 26.3 % (35.5-45.6) L 10/26/18 07:48 MCV 91 fl (84-94) 10/26/18 07:48 MCH 31 pg (28-32) 10/26/18 07:48 MCHC 34 % (32-34) 10/26/18 07:48 RDW 21.2 % (13.2-15.2) H 10/26/18 07:48 Plt Count 164 K/mm3 (140-440) 10/26/18 07:48 Add Manual Diff Complete 10/26/18 07:48 Total Counted 100 10/26/18 07:48 Seg Neuts % (Manual) 66.0 % (40.0-70.0) 10/26/18 07:48 Band Neutrophils % 0 % 10/26/18 07:48 Lymphocytes % (Manual) 13.0 % (13.4-35.0) L 10/26/18 07:48 Reactive Lymphs % (Man) 0 % 10/26/18 07:48 Monocytes % (Manual) 12.0 % (0.0-7.3) H 10/26/18 07:48 Eosinophils % (Manual) 8.0 % (0.0-4.3) H 10/26/18 07:48 Basophils % (Manual) 1.0 % (0.0-1.8) 10/26/18 07:48 Metamyelocytes % 0 % 10/26/18 07:48 Myelocytes % 0 % 10/26/18 07:48 Promyelocytes % 0 % 10/26/18 07:48 Blast Cells % 0 % 10/26/18 07:48 Nucleated RBC % 53.0 % (0.0-0.9) H 10/26/18 07:48 Seg Neutrophils # Man 0.0 K/mm3 (1.8-7.7) L 10/26/18 07:48 Band Neutrophils # 0.0 K/mm3 10/26/18 07:48 Abs Lymphs (Manual) 267 cells/uL (850-3900) L 10/11/18 17:36 Lymphocytes # (Manual) 0.0 K/mm3 (1.2-5.4) L 10/26/18 07:48 Abs React Lymphs (Man) 0.0 K/mm3 10/26/18 07:48 Monocytes # (Manual) 0.0 K/mm3 (0.0-0.8) 10/26/18 07:48 Eosinophils # (Manual) 0.0 K/mm3 (0.0-0.4) 10/26/18 07:48 Basophils # (Manual) 0.0 K/mm3 (0.0-0.1) 10/26/18 07:48 Metamyelocytes # 0.0 K/mm3 10/26/18 07:48 Myelocytes # 0.0 K/mm3 10/26/18 07:48 Promyelocytes # 0.0 K/mm3 10/26/18 07:48 Blast Cells # 0.0 K/mm3 10/26/18 07:48 Pathologist Review 10/15/18 03:14 WBC Morphology Not Reportable 10/26/18 07:48 Hypersegmented Neuts Not Reportable 10/26/18 07:48 Hyposegmented Neuts Not Reportable 10/26/18 07:48 Hypogranular Neuts Not Reportable 10/26/18 07:48 Smudge Cells Not Reportable 10/26/18 07:48 Toxic Granulation Not Reportable 10/26/18 07:48 Toxic Vacuolation Not Reportable 10/26/18 07:48 Dohle Bodies Not Reportable 10/26/18 07:48 Pelger-Huet Anomaly Not Reportable 10/26/18 07:48 Kartik Rods Not Reportable 10/26/18 07:48 Platelet Estimate Consistent w auto 10/26/18 07:48 Clumped Platelets Not Reportable 10/26/18 07:48 Plt Clumps, EDTA Not Reportable 10/26/18 07:48 Large Platelets Not Reportable 10/26/18 07:48 Giant Platelets Few 10/26/18 07:48 Platelet Satelliting Not Reportable 10/26/18 07:48 Plt Morphology Comment Not Reportable 10/26/18 07:48 RBC Morphology Not Reportable 10/26/18 07:48 Dimorphic RBCs Not Reportable 10/26/18 07:48 Polychromasia 1+ 10/26/18 07:48 Hypochromasia Not Reportable 10/26/18 07:48 Poikilocytosis 1+ 10/26/18 07:48 Anisocytosis 1+ 10/26/18 07:48 Microcytosis Few 10/26/18 07:48 Macrocytosis Not Reportable 10/26/18 07:48 Spherocytes Not Reportable 10/26/18 07:48 Pappenheimer Bodies Not Reportable 10/26/18 07:48 Sickle Cells Not Reportable 10/26/18 07:48 Target Cells Not Reportable 10/26/18 07:48 Tear Drop Cells Few 10/26/18 07:48 Ovalocytes Few 10/26/18 07:48 Helmet Cells 1+ 10/26/18 07:48 [place] Bodies Not Reportable 10/26/18 07:48 [place] Rings Not Reportable 10/26/18 07:48 [place] Cells Not Reportable 10/26/18 07:48 Bite Cells Not Reportable 10/26/18 07:48 Crenated Cell Not Reportable 10/26/18 07:48 Elliptocytes Not Reportable 10/26/18 07:48 Acanthocytes (Spur) Not Reportable 10/26/18 07:48 Rouleaux Not Reportable 10/26/18 07:48 Hemoglobin C Crystals Not Reportable 10/26/18 07:48 Schistocytes Not Reportable 10/26/18 07:48 Malaria parasites Not Reportable 10/26/18 07:48 Jv Bodies Not Reportable 10/26/18 07:48 Hem Pathologist Commnt No 10/26/18 07:48 PT 14.5 Sec. (12.2-14.9) 10/15/18 00:59 INR 1.06 (0.87-1.13) 10/15/18 00:59 APTT 27.9 Sec. (24.2-36.6) 10/10/18 15:02 Thrombin Time 16.9 Sec. (15.1-19.6) 10/10/18 15:02 POC ABG pH 7.535 (7.35-7.45) H 10/21/18 09:49 POC ABG pCO2 32.0 (35-45) L 10/21/18 09:49 POC ABG pO2 57 (80-105) L 10/21/18 09:49 POC ABG HCO3 27.1 10/21/18 09:49 POC ABG Total CO2 28 10/21/18 09:49 POC ABG O2 Sat 93 10/21/18 09:49 POC ABG Base Excess 4 10/21/18 09:49 FiO2 21 % 10/21/18 09:49 Sodium 139 mmol/L (137-145) 10/28/18 06:11 Potassium 5.1 mmol/L (3.6-5.0) H 10/28/18 06:11 Chloride 95.8 mmol/L (98-107) L 10/28/18 06:11 Carbon Dioxide 19 mmol/L (22-30) L 10/28/18 06:11 Anion Gap 29 mmol/L 10/28/18 06:11 BUN 71 mg/dL (9-20) H 10/28/18 06:11 Creatinine 9.9 mg/dL (0.8-1.5) H 10/28/18 06:11 Estimated GFR 7 ml/min 10/28/18 06:11 BUN/Creatinine Ratio 7 % 10/28/18 06:11 Glucose 102 mg/dL (75-100) H 10/28/18 06:11 POC Glucose 139 (70-105) H 10/20/18 13:07 Osmolality 338 Mosm/kg 10/11/18 17:35 Lactic Acid 1.80 mmol/L (0.7-2.0) 10/12/18 05:59 Uric Acid 13.4 mg/dL (3.5-7.6) H 10/11/18 17:36 Calcium 8.9 mg/dL (8.4-10.2) 10/28/18 06:11 Phosphorus 8.30 mg/dL (2.5-4.5) H 10/25/18 10:00 Magnesium 3.10 mg/dL (1.7-2.3) H 10/18/18 05:03 Iron 147 ug/dL (49-181) 10/11/18 17:36 TIBC 236 mcg/dL (250-450) L 10/11/18 17:36 Ferritin 62437.0 ng/mL (13.0-400.0) H 10/11/18 17:35 Total Bilirubin 0.40 mg/dL (0.1-1.2) 10/25/18 10:00 Direct Bilirubin 0.2 mg/dL (0-0.2) 10/16/18 04:07 Indirect Bilirubin 0.3 mg/dL 10/16/18 04:07 AST 46 units/L (5-40) H 10/25/18 10:00 ALT 21 units/L (7-56) 10/25/18 10:00 Alkaline Phosphatase 102 units/L (35-129) 10/25/18 10:00 Ammonia 25.0 umol/L (25-60) 10/17/18 14:59 Lactate Dehydrogenase 925 units/L (91-180) H 10/22/18 05:51 Troponin T 0.272 ng/mL (0.00-0.029) H* 10/10/18 18:07 NT-Pro-B Natriuret Pep 29490 pg/mL (0-450) H 10/10/18 15:42 Total Protein 8.1 g/dL (6.3-8.2) 10/25/18 10:00 Albumin 3.5 g/dL (3.9-5) L 10/25/18 10:00 Albumin/Globulin Ratio 0.8 % 10/25/18 10:00 Triglycerides 329 mg/dL (2-149) H 10/10/18 15:02 Cholesterol 234 mg/dL (50-199) H 10/10/18 15:02 LDL Cholesterol Direct 139 mg/dL (50-130) H 10/10/18 15:02 HDL Cholesterol 42 mg/dL (40-59) 10/10/18 15:02 Cholesterol/HDL Ratio 5.57 % 10/10/18 15:02 Vitamin B12 912.3 pg/mL (211-911) H 10/14/18 08:51 Folate 8.32 ng/mL (7.3-26.0) 10/14/18 08:51 PTH Intact 388.7 pg/mL (15-65) H 10/25/18 10:00 Urine Creatinine 30.8 mg/dL (0.1-20.0) H 10/13/18 04:43 Urine Sodium 106 mmol/L 10/13/18 04:43 Urine Total Protein 75 mg/dL (5-11.8) H 10/13/18 04:43 CSF Appearance Clear 10/16/18 15:00 CSF Color Colorless 10/16/18 15:00 CSF WBC 4 /mm3 (1-10) 10/16/18 15:00 CSF RBC 113 /mm3 (0-0) 10/16/18 15:00 CSF Seg Neutrophils 8.0 % (0-6) 10/16/18 15:00 CSF Lymphocytes % 76.0 % (40-80) 10/16/18 15:00 CSF Reactive Lymphs 2.0 % 10/16/18 15:00 CSF Monocytes % 14.0 % (15-45) 10/16/18 15:00 CSF Eosinophils % 0 % 10/16/18 15:00 CSF Basophils 0 % 10/16/18 15:00 CSF Pathologist Review C 10/16/18 15:00 CSF Glucose 73 mg/dL 10/16/18 15:00 CSF Total Protein 55 mg/dL 10/16/18 15:00 CSF VDRL Nonreactive (Nonreactive) 10/16/18 15:00 Random Vancomycin 7.0 ug/mL (0-40.0) 10/26/18 04:54 Immunofix Electrophor see below 10/11/18 17:36 RENO Screen Negative (Negative) 10/21/18 15:07 Proteinase 3 (PR3) Ab <1.0 AI (<1.0) 10/21/18 15:07 Myeloperoxidase Ab <1.0 AI (<1.0) 10/21/18 15:07 Lymph Enumerat CD4/CD8 0.01 (0.86-5.00) L 10/11/18 17:36 % CD3 Cells 85 % (57-85) 10/11/18 17:36 Absolute CD3 Count 226 cells/uL (840-3060) L 10/11/18 17:36 % CD4 Cells 1 % (30-61) L 10/11/18 17:36 Absolute CD4 Count 3 cells/uL (490-1740) L 10/11/18 17:36 % CD8 Cells 82 % (12-42) H 10/11/18 17:36 Absolute CD8 Count 228 cells/uL (180-1170) 10/11/18 17:36 % CD19 Cells 6 % (6-29) 10/11/18 17:36 Absolute CD19 Count 16 cells/uL (110-660) L 10/11/18 17:36 RPR Titer 1:32 10/11/18 17:37 RPR Reactive (Nonreactive) 10/11/18 17:37 T.pallidum Ab (FTA-ABS) Reactive (Nonreactive) H 10/12/18 Unknown CMV DNA PCR log electron microscopist/mL See scanned result 10/11/18 17:37 Hepatitis A IgM Ab Non-reactive (NonReactive) 10/11/18 17:34 Hep Bs Antigen Non-reactive (Negative) 10/11/18 17:34 Hep B Core IgM Ab Non-reactive (NonReactive) 10/11/18 17:34 Hepatitis C Antibody Non-reactive (NonReactive) 10/11/18 17:34 HIV-1 RNA PCR copies/ml 345450 Copies/mL H 10/11/18 17:36 HIV-1 RNA (PCR) log 5.51 Log cps/mL H 10/11/18 17:36 Toxoplasma IgG Ab <7.20 IU/mL (<7.20) 10/13/18 07:54 Miscellaneous Test Flexitest 1 10/16/18 15:00 Blood Type A POSITIVE 10/23/18 09:12 Antibody Screen Negative 10/23/18 09:12 Crossmatch See Detail 10/23/18 09:12 Nutrition/Malnutrition Assess - Dietary Evaluation Nutrition/Malnutrition Findings: Nutrition Notes Start: 10/11/18 11:14 Freq: Status: Active Protocol: Document 10/26/18 16:17 RM (Rec: 10/26/18 16:23 RM [id number]) Nutrition Notes Initial or Follow up Reassessment Current Diagnosis Acute Kidney Injury,CKD(stage I-IV),Hypertension,Stroke Other Pertinent Diagnosis Acute encephalopathy, HIV/AIDS , Syphilis Current Diet Pureed w/nectar thick liquids Labs/Tests BUN 42, Creat 6.5 Pertinent Medications Reviewed Height 5 ft 9 in Weight 72 kg [place] Body Weight (kg) 72.72 BMI 23.4 Subjective/Other Information Pureed w/nectar thick liquids diet recommended per ST note . Pt not in room at time of visit. Recorded PO intake 0% X 2 meals. Percent of energy/protein needs met: 0%/0% Burn Absent Trauma Absent #1 Nutrition Diagnosis Inadequate oral intake Diagnosis Progress(for reassessment Continues documentation) Is patient on ventilator? No Is Patient Ambulatory and/or Out of Bed No REE-([facility]-confined to bed) [phone] Calculation Used for Recommendations [facility] Additional Notes Pro needs 1-1.2g/k-78g/ day Fluid needs 1ml/kcal Nutrition Intervention Add Supplement/Snack (indicate name/kcal Nepro 1 daily /protein ) Provides kCal: 425 Provides Protein (gm) 19 Goal #1 Meet at least 75% of calorie and protein needs via PO and ONS intakes Anticipated Discharge Needs: Pureed diet Follow-Up By: 10/29/18 Additional Comments Follow for PO and ONS intakes
[2018-10-28] MEDS: TYLENOL PO PRN (22:35)
[2018-10-28] MEDS: APRESOLINE IV PRN (22:36)
[2018-10-29 07:45] LABS: Calcium 8.9 mg/dL (8.4-10.2)
[2018-10-29] MEDS: DUONEB *Not for PRN Use IH SCH ×3 (07:51→20:17)
[2018-10-29] MEDS: BROVANA NEBU IH SCH ×2 (07:51→20:17)
--- NOTE | 2018-10-29 08:24 | Hem/Onc Progress Note ---
Assessment and Plan 1. Anemia. At admission, hemoglobin was 8.1, later low and s/p Transfusion support. 2. Platelets at admission was 20. 3. White cell count was elevated. 4. PT/INR h/o slightly elevated. 5. Renal failure. 6. ALT elevated. 7. The patient has multiple medical issues. PLAN: I will ask for a smear evaluation. I will call the lab for same. Supportive care in the interim while we looked for primary etiology. 3/ - plt better - s/p transfusion d/w dr rain and dr carrillo 10/14 - low plt - rasta ctive bleed suprapubic catheter 10/15 - plt were rising and again going down' pt had got plt transfusion LDH high - [id number] ordered smear - ordererd LDH may be high in other causes too - renal etc 10/16 - d/w path - not many schistocytes on smear - ADAMTS 13 ordered extubated 10/17 - plt low - path review ordered d/w armin monsalve 10/18 - path report pending plt low - but no active bleeding 10/19 - pt more alert - follows commands no bleeding 10/20 pt SOB - d/w Dr Monsalve and RN plt low - but no bleeding NGT+ more awake 10/21 - pt in [facility] plt >100 - more awake 10/22 - clinically better - moves all 4 limbs 10/23 - clinically stable - prbc suport 10/24 - as per RN -pt passed barium - for thickened diet pt has suprapubic got PRBC plt improving 10/25 - clinically better no active bleeding 10/26 - moving all extremity -communicating repeat cbc 10/27 - labs better - clinically improving 10/28 - plt now normal - hb better - s/p PRBC recent CKD may have a role 10/29 - pt clinically stable - clinical documentation spec abn - electrolyte abn - Patient Problems (1) Thrombocytopenia associated with AIDS Current Visit: Yes Status: Acute (2) Anemia Current Visit: Yes Status: Acute Qualifiers: Anemia type: due to chronic kidney disease Chronic kidney disease stage: unspecified stage Qualified Code(s): N18.9 - Chronic kidney disease, unspecified; D63.1 - Anemia in chronic kidney disease Subjective Date of service: 10/29/18 Principal diagnosis: anemia - HIV Interval history: says doing ok Objective - Constitutional Vitals: Last Vital Signs Temp 99.8 F H 10/29/18 05:09 Pulse 111 H 10/29/18 07:51 Resp 18 10/29/18 07:51 BP 126/89 10/29/18 05:09 Pulse Ox 99 10/29/18 07:54 Pain Intensity (0-10): denies any pain General appearance: no acute distress Performance status: 4-completely disabled - EENT Eyes: EOM intact ENT: clear oral mucosa Lymph node exam: negative cervical - Neck Neck: normal ROM - Respiratory Respiratory effort: Positive: normal Respiratory: bilateral: CTA - Cardiovascular Heart Sounds: Present: S1 & S2 Extremities: No edema - Gastrointestinal General gastrointestinal: Present: soft, non-tender Rectal Exam: deferred - Genitourinary Male genitourinary: Present: deferred - Integumentary Integumentary: warm - Musculoskeletal Musculoskeletal: strength equal bilaterally - Neurologic Neurologic: moves all extremities - Labs Lab Results: Laboratory Results - last 24 hr 10/29/18 10/29/18 07:13 07:13 Sodium 142 Potassium 6.5 H* D Chloride 96.0 L Carbon Dioxide 18 L Anion Gap 35 BUN 103 H Creatinine 13.4 H Estimated GFR 5 BUN/Creatinine Ratio 8 Glucose 124 H Calcium 8.9 Random Vancomycin 18.9 Medications & Allergies - Medications Allergies/Adverse Reactions: Allergies Sulfa (Sulfonamide Antibiotics) Allergy (Verified 10/10/18 16:54) Unknown Home Medications: Home Medications Medication Instructions Recorded Confirmed Last Taken Type Acetaminophen [Tylenol] 1,000 mg PO Q6HR 10/10/18 10/10/18 Unknown History Amlodipine Besylate [Norvasc] 10 mg PO QDAY 10/10/18 10/10/18 Unknown History Aspirin [Adult Aspirin] 81 mg PO DAILY 10/10/18 10/10/18 Unknown History Atorvastatin [Lipitor Tab] 80 mg PO DAILY 10/10/18 10/10/18 Unknown History Losartan [Cozaar] 100 mg PO QDAY 10/10/18 10/10/18 Unknown History Multivitamin [Multiple Vitamins] 1 each PO DAILY 10/10/18 10/10/18 Unknown History hydroCHLOROthiazide [HCTZ] 25 mg PO QDAY 10/10/18 10/10/18 Unknown History Active Medications: Generic Name Dose Route Start Last Admin Trade Name Freq PRN Reason Stop Dose Admin Acetaminophen 500 mg 10/16/18 10:02 10/28/18 22:35 Tylenol PO 500 mg Q6H PRN Administration Fever >101 Albuterol 2.5 mg 10/10/18 18:12 Proventil IH Q3HRT PRN Shortness Of Breath Albuterol/Ipratropium 1 ampul 10/25/18 08:00 10/29/18 07:51 Duoneb *Not For Prn Use* IH 1 ampul TIDRT RUBI Administration Amlodipine Besylate 10 mg 10/11/18 10:00 10/28/18 09:39 Norvasc PO 10 mg QDAY RUBI Administration Lipase/Protease/Amylase 1 each 10/11/18 12:58 Pancreaze 10,500 Unit FEEDTUBE PRN PRN For Clogged Feeding Tube Arformoterol Tartrate 15 mcg 10/20/18 11:45 10/29/18 07:51 Brovana Jose Raulu IH Not Given Q12HRT RUBI Atovaquone 750 mg 10/18/18 10:00 10/28/18 22:22 Mepron PO 750 mg BID RUBI Administration Carvedilol 12.5 mg 10/22/18 22:00 10/28/18 22:22 Coreg PO 12.5 mg BID RUBI Administration Haloperidol Lactate 5 mg 10/13/18 19:45 10/20/18 21:08 Haldol IV 5 mg Q6H PRN Administration Agitation Hydralazine HCl 10 mg 10/12/18 15:50 10/28/18 22:36 Apresoline IV 10 mg Q4HR PRN Administration SBP>175 or DBP>115 Hydrophilic Ointment 1 applic 10/10/18 17:53 Vaseline Lip Therapy TP Q2HR PRN Dry Lips Sodium Chloride 100 mls @ 999 mls/hr 10/20/18 09:54 Nacl 0.9% IV CHON PRN Hypotension Ceftriaxone Sodium 2 gm in 100 mls @ 200 mls/hr 10/21/18 15:00 10/28/18 09:44 Rocephin/Ns 2 Gm/100 Ml IV 200 mls/hr Q24HR RUBI Administration Protocol Vancomycin HCl 750 mg/ Sodium 265 mls @ 166.667 mls/hr 10/29/18 20:00 Chloride IV MoWeFr RUBI Lansoprazole 30 mg 10/15/18 10:00 10/28/18 22:22 Prevacid Solutab FEEDTUBE 30 mg BID RUBI Administration Lorazepam 1 mg 10/13/18 19:48 10/21/18 04:09 Ativan IV 1 mg Q4H PRN Administration agitation Metoprolol Tartrate 5 mg 10/18/18 14:05 Lopressor IV Q6HR PRN Tachyarrhythmias Multi-Ingred Cream/Lotion/Oil/Oint 1 applic 10/10/18 17:53 Artificial Tears Ophth Oint OU Q4HR PRN Dry Eye(s) Multivitamins 1 each 10/11/18 10:00 10/28/18 09:37 Theragran Tab PO 1 each DAILY RUBI Administration Simple Syrup 15 ml 10/11/18 12:58 Simple Syrup FEEDTUBE PRN PRN Hypoglycemia Simple Syrup 30 ml 10/11/18 12:58 Simple Syrup FEEDTUBE PRN PRN Hypoglycemia Sodium Bicarbonate 325 mg 10/11/18 12:58 Sodium Bicarbonate FEEDTUBE PRN PRN For Clogged Feeding Tube Sodium Chloride 10 ml 10/10/18 22:00 10/28/18 22:23 Sodium Chloride Flush Syringe 10 Ml IV 10 ml BID RUBI Administration Sodium Chloride 10 ml 10/10/18 18:12 Sodium Chloride Flush Syringe 10 Ml IV PRN PRN LINE FLUSH
[2018-10-29 08:43] LABS: Heparin-Induced Platelet Antib Negative (Negative); Unfractionated Heparin Negative (Negative)
--- NOTE | 2018-10-29 09:00 | Progress Note ---
Assessment and Plan Cultures: Blood culture 10/10/2018 no growth. Sputum culture 10/10/2018 Ana Paula albicans. Crypto Ag 10/10/2018 neg. Urine culture 10/13/2018 no growth. Blood culture 10/17/2018 no growth. Blood culture 10/20/2018: in progress Stool Occult Blood 10/23/18: positive Assessment: 43 y/o male with history of HIV (unknown CD4/VL/ART intake), HTN, CVA 6 months ago at [place], Nicotine Dependence, Malnutrition; admitted on 10/10/2018 due to AMS (confusion/lethargy) and slurred speech for 24 h: 1) Severe SIRS versus sepsis: on and off low grade fevers continuing. Unclear etiology ? aspiration pneumonia +/- opportunistic brain infection - CXR neg - Unable to obtain UA - patient was anuric - BNP 70K - Troponin 0.2 - LDH 2242 2) Acute hypoxemic respiratory failure: for airway protection +/- ? pneumonia. Repeat CXR no consolidations. Ana Paula in tracha sp likely a colonizer. Extubated 10/15 3) Acute encephalopathy: Improved.; multifactorial ?from hypertensive urgency +/- brain opportunistic infection. DDx: Neurosyphilis, VZV/CMV encephalitis versus HYDROELECTRIC COMPONENT MACHINIST lymphoma versus less likely PML - CT head showed bilateral chronic ischemic changes. - Brain MRI showed areas of edema in the basal ganglia and thalami bilaterally, within the jaamri and in the cerebral hemispheres bilaterally in the subcortical and deep white matter and in portions of the cortex, areas of encephalomalacia in the basal ganglia bilaterally with evidence of previous hemorrhage or mineral deposition and numerous small foci of acute infarct in the basal ganglia bilaterally, subinsular regions bilaterally and medial temporal lobes bilaterally and possibly in the occipital cortex bilaterally. - RPR reactive 1:32 / FTA ABs reactive - Brain MRA showed possible dissection versus artifact at the basilar artery. Luminal irregularity at the anterior, middle, and posterior cerebral arteries as well as the carotid siphons may represent mild to moderate atherosclerotic disease. More notable narrowing at the distal right A1 segment. Differential diagnosis includes motion artifact and vasculitis. Vertebral arteries are not clearly visualized. - CSF wbc 4, rbc 113, Seg 8%, Lymph 76%, protein 55, glucose 73 which is not c/w meningitis - Toxoplasma IgG negative - On ganciclovir, penicillin and high dosed mepron - CMV DNA VL=1,370, 3.1 log on ganciclovir - likely reactivation - CSF VDRL non reactive, Toxoplasma PCR: negative 4) Anemia/thrombocytopenia: 5) Acute on CKD or SHRUTHI ? unclear etiology: 6) DM: uncontrolled. 8) Elevated LFTs ? 9) HIV/AIDS: VL 320,000 / CD4=3 on 10/11/2018 Recommendations: discontiue ganciclovir, 14 day VZV coverage completed. -continue Mepron (atovaquone) 750 mg BID -continue Ceftriaxone 2gms IV q 24, D9 -Continue Vancomycin, per PK dosing, D9 -f/u CMV DNA [facility] M: [id number] O:[phone] Subjective Date of service: 10/29/18 Principal diagnosis: anemia - low plt Interval history: Patient seen and examined. Patient seen and examined in HD. residence life coordinator reports that patient was hypotensive and unresponsive for 30 seconds. Currently awake, sleepy on . Objective - Exam Narrative Exam: General appearance: Asleep, easily arousable. generalized weakness Eyes: anicteric sclerae, moist conjunctivae; no lid-lag; PERRLA HENT: Atraumatic; oropharynx limited Neck: Trachea midline; supple, no thyromegaly or lymphadenopathy Lungs: CTA, with normal respiratory effort, on CV: tachycardic Abdomen: Soft, non-tender;+SP cath Extremities: No peripheral edema or extremity lymphadenopathy Skin: Normal temperature, turgor and texture; no rash, ulcers or subcutaneous nodules Psych: affect: Flat Neuro: Generalized weakness, On , follows simple commands. - Constitutional Vitals: Vital Signs Temp Pulse Resp BP Pulse Ox 99.8 F H 115 H 18 126/89 99 10/29/18 05:09 10/29/18 08:38 10/29/18 08:38 10/29/18 05:09 10/29/18 07:54 Temperature -Last 24 Hours Temperature 99.8 F Temperature 100.9 F Temperature 98.2 F Temperature 97.8 F - Labs CBC & Chem 7: 10/29/18 09:27 10/29/18 07:13 Labs: Abnormal lab results 10/29/18 Range/Units 07:13 Potassium 6.5 H* D (3.6-5.0) mmol/L Chloride 96.0 L (98-107) mmol/L Carbon Dioxide 18 L (22-30) mmol/L BUN 103 H (9-20) mg/dL Creatinine 13.4 H (0.8-1.5) mg/dL Glucose 124 H (75-100) mg/dL
[2018-10-29 10:06] LABS: Hematocrit 31.1 % (35.5-45.6); Hemoglobin 9.9 gm/dl (11.8-15.2); Mean Corpuscular HGB Conc 32 % (32-34); Mean Corpuscular Volume 93 fl (84-94); Platelet Count 162 K/mm3 (140-440); Red Blood Count 3.34 M/mm3 (3.65-5.03)
[2018-10-29] MEDS: COREG PO SCH ×2 (10:22→21:55)
[2018-10-29 10:25] LABS: Red Cell Distribution Width 20.2 % (13.2-15.2)
[2018-10-29] MEDS: PREVACID SOLUTAB FEEDTUBE SCH ×2 (10:38→21:54)
[2018-10-29] MEDS: MEPRON PO SCH ×2 (10:38→21:55)
[2018-10-29] MEDS: NORVASC PO SCH (10:38)
[2018-10-29] MEDS: THERAGRAN Tab PO SCH (10:39)
--- NOTE | 2018-10-29 11:24 | Progress Note ---
Assessment and Plan - Patient Problems (1) Acute kidney injury Current Visit: Yes Status: Acute Plan to address problem: Acute kidney injury : severe creatinine worsening though urine output appears to be improving I reviewed renal Ultrasound with 10.1cm and 10.8cm kidneys bilateral echogenic Possible aetiologies of Acute kidney injury is likely 2/2 acute tubular injury ,possible underlying HIV associated nephropathy cannot be excluded . He is currently oliguric currently dialysis dependent. We'll need tunneled dialysis catheter placement Consult vascular surgery Avoid Nephrotoxic medications. 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 (3) Hyperkalemia, diminished renal excretion Current Visit: Yes Status: Acute Plan to address problem: Hyperkalemia setting of renal failure potassium is 6.5 We'll initiate hemodialysis (4) Metabolic acidosis Current Visit: Yes Status: Acute Plan to address problem: Metabolic acidosis secondary to renal failure We'll initiate dialysis Subjective Principal diagnosis: anemia - low plt Interval history: 43 year old gentleman with medical history significant for HIV admitted with Sepsis , acute hypoxemic respiratory failure , Encephalopathy , transaminitis and worsening renal failure . Patient seen this morning Has hyperkalemia We'll initiate dialysis urgently He was seen today having breakfast denies any complaints No lower extremity swelling Platelet counts have improved Objective - Vital Signs Vital signs: Vital Signs - 12hr 10/29/18 10/29/18 10/29/18 05:09 07:51 07:54 Temperature 99.8 F H Pulse Rate 111 H Pulse Rate [ 111 H Bilateral Throughout] Respiratory 28 H Rate Respiratory 18 Rate [Bilateral Throughout] Blood Pressure 126/89 O2 Sat by Pulse 100 99 Oximetry 10/29/18 08:38 Temperature Pulse Rate Pulse Rate [ 115 H Bilateral Throughout] Respiratory Rate Respiratory 18 Rate [Bilateral Throughout] Blood Pressure O2 Sat by Pulse Oximetry - General Appearance General appearance: cachectic, chronically ill, frail EENT: mucous membranes dry Neck: no JVD, no thyromegaly, supple Respiratory: Present: Clear to Ascultation Cardiology: regular, tachycardia, S1S2 Gastrointestinal: normal, normoactive bowel sounds Integumentary: rash Neurologic: alert and oriented x3 Psychiatric: mood/affect appropriate - Lab 10/29/18 09:27 10/29/18 07:13 Most recent lab results Calcium 8.9 mg/dL (8.4-10.2) 10/29/18 07:13 Phosphorus 8.30 mg/dL (2.5-4.5) H 10/25/18 10:00 Magnesium 3.10 mg/dL (1.7-2.3) H 10/18/18 05:03 Urine Creatinine 30.8 mg/dL (0.1-20.0) H 10/13/18 04:43 Urine Sodium 106 mmol/L 10/13/18 04:43 Urine Total Protein 75 mg/dL (5-11.8) H 10/13/18 04:43 - Imaging Chest x-ray: image reviewed, other (I reviewed chest x-ray increased interstitial markings bilaterally) Medications & Allergies - Medications Allergies/Adverse Reactions: Allergies Sulfa (Sulfonamide Antibiotics) Allergy (Verified 10/10/18 16:54) Unknown Home Medications: Home Medications Medication Instructions Recorded Confirmed Last Taken Type Acetaminophen [Tylenol] 1,000 mg PO Q6HR 10/10/18 10/10/18 Unknown History Amlodipine Besylate [Norvasc] 10 mg PO QDAY 10/10/18 10/10/18 Unknown History Aspirin [Adult Aspirin] 81 mg PO DAILY 10/10/18 10/10/18 Unknown History Atorvastatin [Lipitor Tab] 80 mg PO DAILY 10/10/18 10/10/18 Unknown History Losartan [Cozaar] 100 mg PO QDAY 10/10/18 10/10/18 Unknown History Multivitamin [Multiple Vitamins] 1 each PO DAILY 10/10/18 10/10/18 Unknown History hydroCHLOROthiazide [HCTZ] 25 mg PO QDAY 10/10/18 10/10/18 Unknown History Active Medications: Generic Name Dose Route Start Last Admin Trade Name Freq PRN Reason Stop Dose Admin Acetaminophen 500 mg 10/16/18 10:02 10/28/18 22:35 Tylenol PO 500 mg Q6H PRN Administration Fever >101 Albuterol 2.5 mg 10/10/18 18:12 Proventil IH Q3HRT PRN Shortness Of Breath Albuterol/Ipratropium 1 ampul 10/25/18 08:00 10/29/18 07:51 Duoneb *Not For Prn Use* IH 1 ampul TIDRT RUBI Administration Amlodipine Besylate 10 mg 10/11/18 10:00 10/29/18 10:38 Norvasc PO Not Given QDAY RUBI Lipase/Protease/Amylase 1 each 10/11/18 12:58 Pancrebecka Reed 10,500 Unit FEEDTUBE PRN PRN For Clogged Feeding Tube Arformoterol Tartrate 15 mcg 10/20/18 11:45 10/29/18 07:51 Brovana Nebu IH Not Given Q12HRT RUBI Atovaquone 750 mg 10/18/18 10:00 10/29/18 10:38 Mepron PO Not Given BID [facility] Carvedilol 12.5 mg 10/22/18 22:00 10/29/18 10:22 Coreg PO Not Given BID [facility] Haloperidol Lactate 5 mg 10/13/18 19:45 10/20/18 21:08 Haldol IV 5 mg Q6H PRN Administration Agitation Hydralazine HCl 10 mg 10/12/18 15:50 10/28/18 22:36 Apresoline IV 10 mg Q4HR PRN Administration SBP>175 or DBP>115 Hydrophilic Ointment 1 applic 10/10/18 17:53 Vaseline Lip Therapy TP Q2HR PRN Dry Lips Sodium Chloride 100 mls @ 999 mls/hr 10/20/18 09:54 Nacl 0.9% IV CHON PRN Hypotension Ceftriaxone Sodium 2 gm in 100 mls @ 200 mls/hr 10/21/18 15:00 10/28/18 09:44 Rocephin/Ns 2 Gm/100 Ml IV 200 mls/hr Q24HR RUBI Administration Protocol Vancomycin HCl 750 mg/ Sodium 265 mls @ 166.667 mls/hr 10/29/18 20:00 Chloride IV MoWeFr [facility] Lansoprazole 30 mg 10/15/18 10:00 10/29/18 10:38 Prevacid Solutab FEEDTUBE Not Given BID RUBI Lorazepam 1 mg 10/13/18 19:48 10/21/18 04:09 Ativan IV 1 mg Q4H PRN Administration agitation Metoprolol Tartrate 5 mg 10/18/18 14:05 Lopressor IV Q6HR PRN Tachyarrhythmias Multi-Ingred Cream/Lotion/Oil/Oint 1 applic 10/10/18 17:53 Artificial Tears Ophth Oint OU Q4HR PRN Dry Eye(s) Multivitamins 1 each 10/11/18 10:00 10/29/18 10:39 Theragran Tab PO Not Given DAILY RUBI Simple Syrup 15 ml 10/11/18 12:58 Simple Syrup FEEDTUBE PRN PRN Hypoglycemia Simple Syrup 30 ml 10/11/18 12:58 Simple Syrup FEEDTUBE PRN PRN Hypoglycemia Sodium Bicarbonate 325 mg 10/11/18 12:58 Sodium Bicarbonate FEEDTUBE PRN PRN For Clogged Feeding Tube Sodium Chloride 10 ml 10/10/18 22:00 10/28/18 22:23 Sodium Chloride Flush Syringe 10 Ml IV 10 ml BID RUBI Administration Sodium Chloride 10 ml 10/10/18 18:12 Sodium Chloride Flush Syringe 10 Ml IV PRN PRN LINE FLUSH
--- NOTE | 2018-10-29 11:27 | Progress Note ---
Assessment and Plan Assessment and plan: patient is 43 YO Male with HIV, hypertension, previous stroke, Nicotine Dependence, presents to ED for evaluation. Patient was confused and lethargic and unable to provide history. He was seen and evaluated in ED and found to be in distress and unable to protect his airway and was therefore intubated, placed on ventilator in ER then admitted MR brain 10/11 1. Study somewhat degraded by motion artifact. 2 Areas of edema in the basal ganglia and thalami bilaterally, within the jamari and in the cerebral hemispheres bilaterally in the subcortical and deep white matter and in portions of the cortex. 3. Areas of encephalomalacia in the basal ganglia bilaterally with evidence of previous hemorrhage or mineral deposition. 4. Numerous small foci of acute infarct in the basal ganglia bilaterally, subinsular regions bilaterally and medial temporal lobes bilaterally and possibly in the occipital cortex bilaterally. The above findings may be secondary to an infectious or noninfectious etiology with a component of vasculopathy or vasculitis resulting in infarcts. Viral encephalopathies and lymphoma would need to be considered in this patient with history of HIV. Neuro ams acute metabolic encephalopathy improving /Acute CVA with Bilateral infarcts with edema Consulted Neurology, he was evaluated by DR. Valentine. Could be due to possible vasculitis - further workup pending Dysphagia/ moderate malnutrition -MBS 10/23, recommended pureed with nectar thickened liquids Hematology Anemia- stable, thrombocytopenia, leukocytosis, coagulopathy; now resolved -Status post platelet and prbc transfusion, the patient had only few schistocytes on smear, ADAMS13 91% activity ID HIV/AIDS, CD4 count 3, HIV viral load 320,000 acute bacterial PNA, CMV viremia toxo neg, CSF neg Whole blood cmv PCR was positive at 1374 abx and antiviral per ID high fever, blood cx and cxr today FEN/Renal SHRUTHI- ATN, Hyperkalemia, urinary retention sp SPC on 10/12 cont HD per nephrology, no signs of renal recovery Pulm acute hypoxic resp failure on MV> 96 hours self extubated 10/16, continue supplemental oxygen CVS /Hypertensive urgency and acute systolic CHF He was treated with Cardene drip which was weaned off. Optimize medications for CHF on coreg, no mik due to high K, fluid removal by dialysis DVT ppx- scds, given that he pw thrombocytopenia CCT 33 mins History Interval history: Patient continues to have weakness of his voice, having high grade fever Review of systems Constitutional: , no malaise, no joint pains CVS: No chest pain, no orthopnea, no dyspnea on exertion, no pedal edema GI: No abdominal pain, no diarrhea, no vomiting, no constipation Respiratory: No shortness of breath, no wheezing, no coughing Hospitalist Physical - Physical exam Narrative exam: General.: Appears well, no distress, nontoxic HEENT: Moist mucous membranes, extraocular muscles intact, no lymphadenopathy Neck: supple Cardiac: S1-S2 heard Lungs: clear to auscultation bilaterally Abdomen: soft , nontender, nondistended, bowel sounds positive Extremities: no edema clubbing or cyanosis Skin: no rash or lesions Neurologic: no gross focal deficits Psych: calm, and cooperative - Constitutional Vitals: Temp Pulse Resp BP Pulse Ox 99.8 F H 115 H 18 126/89 99 10/29/18 05:09 10/29/18 08:38 10/29/18 08:38 10/29/18 05:09 10/29/18 07:54 General appearance: Present: no acute distress Results - Labs CBC & Chem 7: 10/29/18 09:27 10/30/18 05:00 Labs: Laboratory Last Values WBC 4.9 K/mm3 (4.5-11.0) 10/26/18 07:48 RBC 3.34 M/mm3 (3.65-5.03) L 10/29/18 09:27 Hgb 9.9 gm/dl (11.8-15.2) L 10/29/18 09:27 Hct 31.1 % (35.5-45.6) L 10/29/18 09:27 MCV 93 fl (84-94) 10/29/18 09:27 MCH 30 pg (28-32) 10/29/18 09:27 MCHC 32 % (32-34) 10/29/18 09:27 RDW 20.2 % (13.2-15.2) H 10/29/18 09:27 Plt Count 162 K/mm3 (140-440) 10/29/18 09:27 Add Manual Diff Complete 10/26/18 07:48 Total Counted 100 10/26/18 07:48 Seg Neuts % (Manual) 66.0 % (40.0-70.0) 10/26/18 07:48 Band Neutrophils % 0 % 10/26/18 07:48 Lymphocytes % (Manual) 13.0 % (13.4-35.0) L 10/26/18 07:48 Reactive Lymphs % (Man) 0 % 10/26/18 07:48 Monocytes % (Manual) 12.0 % (0.0-7.3) H 10/26/18 07:48 Eosinophils % (Manual) 8.0 % (0.0-4.3) H 10/26/18 07:48 Basophils % (Manual) 1.0 % (0.0-1.8) 10/26/18 07:48 Metamyelocytes % 0 % 10/26/18 07:48 Myelocytes % 0 % 10/26/18 07:48 Promyelocytes % 0 % 10/26/18 07:48 Blast Cells % 0 % 10/26/18 07:48 Nucleated RBC % 53.0 % (0.0-0.9) H 10/26/18 07:48 Seg Neutrophils # Man 0.0 K/mm3 (1.8-7.7) L 10/26/18 07:48 Band Neutrophils # 0.0 K/mm3 10/26/18 07:48 Abs Lymphs (Manual) 267 cells/uL (850-3900) L 10/11/18 17:36 Lymphocytes # (Manual) 0.0 K/mm3 (1.2-5.4) L 10/26/18 07:48 Abs React Lymphs (Man) 0.0 K/mm3 10/26/18 07:48 Monocytes # (Manual) 0.0 K/mm3 (0.0-0.8) 10/26/18 07:48 Eosinophils # (Manual) 0.0 K/mm3 (0.0-0.4) 10/26/18 07:48 Basophils # (Manual) 0.0 K/mm3 (0.0-0.1) 10/26/18 07:48 Metamyelocytes # 0.0 K/mm3 10/26/18 07:48 Myelocytes # 0.0 K/mm3 10/26/18 07:48 Promyelocytes # 0.0 K/mm3 10/26/18 07:48 Blast Cells # 0.0 K/mm3 10/26/18 07:48 Pathologist Review 10/15/18 03:14 WBC Morphology Not Reportable 10/26/18 07:48 Hypersegmented Neuts Not Reportable 10/26/18 07:48 Hyposegmented Neuts Not Reportable 10/26/18 07:48 Hypogranular Neuts Not Reportable 10/26/18 07:48 Smudge Cells Not Reportable 10/26/18 07:48 Toxic Granulation Not Reportable 10/26/18 07:48 Toxic Vacuolation Not Reportable 10/26/18 07:48 Dohle Bodies Not Reportable 10/26/18 07:48 Pelger-Huet Anomaly Not Reportable 10/26/18 07:48 Kartik Rods Not Reportable 10/26/18 07:48 Platelet Estimate Consistent w auto 10/26/18 07:48 Clumped Platelets Not Reportable 10/26/18 07:48 Plt Clumps, EDTA Not Reportable 10/26/18 07:48 Large Platelets Not Reportable 10/26/18 07:48 Giant Platelets Few 10/26/18 07:48 Platelet Satelliting Not Reportable 10/26/18 07:48 Plt Morphology Comment Not Reportable 10/26/18 07:48 RBC Morphology Not Reportable 10/26/18 07:48 Dimorphic RBCs Not Reportable 10/26/18 07:48 Polychromasia 1+ 10/26/18 07:48 Hypochromasia Not Reportable 10/26/18 07:48 Poikilocytosis 1+ 10/26/18 07:48 Anisocytosis 1+ 10/26/18 07:48 Microcytosis Few 10/26/18 07:48 Macrocytosis Not Reportable 10/26/18 07:48 Spherocytes Not Reportable 10/26/18 07:48 Pappenheimer Bodies Not Reportable 10/26/18 07:48 Sickle Cells Not Reportable 10/26/18 07:48 Target Cells Not Reportable 10/26/18 07:48 Tear Drop Cells Few 10/26/18 07:48 Ovalocytes Few 10/26/18 07:48 Helmet Cells 1+ 10/26/18 07:48 Smith-Bowlegs Bodies Not Reportable 10/26/18 07:48 [place] Rings Not Reportable 10/26/18 07:48 Jani Cells Not Reportable 10/26/18 07:48 Bite Cells Not Reportable 10/26/18 07:48 Crenated Cell Not Reportable 10/26/18 07:48 Elliptocytes Not Reportable 10/26/18 07:48 Acanthocytes (Spur) Not Reportable 10/26/18 07:48 Rouleaux Not Reportable 10/26/18 07:48 Hemoglobin C Crystals Not Reportable 10/26/18 07:48 Schistocytes Not Reportable 10/26/18 07:48 Malaria parasites Not Reportable 10/26/18 07:48 Jv Bodies Not Reportable 10/26/18 07:48 Hem Pathologist Commnt No 10/26/18 07:48 PT 14.5 Sec. (12.2-14.9) 10/15/18 00:59 INR 1.06 (0.87-1.13) 10/15/18 00:59 APTT 27.9 Sec. (24.2-36.6) 10/10/18 15:02 Thrombin Time 16.9 Sec. (15.1-19.6) 10/10/18 15:02 Heparin Anti-Xa, Unfract Negative (Negative) 10/25/18 05:59 POC ABG pH 7.535 (7.35-7.45) H 10/21/18 09:49 POC ABG pCO2 32.0 (35-45) L 10/21/18 09:49 POC ABG pO2 57 (80-105) L 10/21/18 09:49 POC ABG HCO3 27.1 10/21/18 09:49 POC ABG Total CO2 28 10/21/18 09:49 POC ABG O2 Sat 93 10/21/18 09:49 POC ABG Base Excess 4 10/21/18 09:49 FiO2 21 % 10/21/18 09:49 Sodium 142 mmol/L (137-145) 10/29/18 07:13 Potassium 6.5 mmol/L (3.6-5.0) H* D 10/29/18 07:13 Chloride 96.0 mmol/L (98-107) L 10/29/18 07:13 Carbon Dioxide 18 mmol/L (22-30) L 10/29/18 07:13 Anion Gap 35 mmol/L 10/29/18 07:13 BUN 103 mg/dL (9-20) H 10/29/18 07:13 Creatinine 13.4 mg/dL (0.8-1.5) H 10/29/18 07:13 Estimated GFR 5 ml/min 10/29/18 07:13 BUN/Creatinine Ratio 8 % 10/29/18 07:13 Glucose 124 mg/dL (75-100) H 10/29/18 07:13 POC Glucose 139 (70-105) H 10/20/18 13:07 Osmolality 338 Mosm/kg 10/11/18 17:35 Lactic Acid 1.80 mmol/L (0.7-2.0) 10/12/18 05:59 Uric Acid 13.4 mg/dL (3.5-7.6) H 10/11/18 17:36 Calcium 8.9 mg/dL (8.4-10.2) 10/29/18 07:13 Phosphorus 8.30 mg/dL (2.5-4.5) H 10/25/18 10:00 Magnesium 3.10 mg/dL (1.7-2.3) H 10/18/18 05:03 Iron 147 ug/dL (49-181) 10/11/18 17:36 TIBC 236 mcg/dL (250-450) L 10/11/18 17:36 Ferritin 43169.0 ng/mL (13.0-400.0) H 10/11/18 17:35 Total Bilirubin 0.40 mg/dL (0.1-1.2) 10/25/18 10:00 Direct Bilirubin 0.2 mg/dL (0-0.2) 10/16/18 04:07 Indirect Bilirubin 0.3 mg/dL 10/16/18 04:07 AST 46 units/L (5-40) H 10/25/18 10:00 ALT 21 units/L (7-56) 10/25/18 10:00 Alkaline Phosphatase 102 units/L (35-129) 10/25/18 10:00 Ammonia 25.0 umol/L (25-60) 10/17/18 14:59 Lactate Dehydrogenase 925 units/L (91-180) H 10/22/18 05:51 Troponin T 0.272 ng/mL (0.00-0.029) H* 10/10/18 18:07 NT-Pro-B Natriuret Pep 55005 pg/mL (0-450) H 10/10/18 15:42 Total Protein 8.1 g/dL (6.3-8.2) 10/25/18 10:00 Albumin 3.5 g/dL (3.9-5) L 10/25/18 10:00 Albumin/Globulin Ratio 0.8 % 10/25/18 10:00 Triglycerides 329 mg/dL (2-149) H 10/10/18 15:02 Cholesterol 234 mg/dL (50-199) H 10/10/18 15:02 LDL Cholesterol Direct 139 mg/dL (50-130) H 10/10/18 15:02 HDL Cholesterol 42 mg/dL (40-59) 10/10/18 15:02 Cholesterol/HDL Ratio 5.57 % 10/10/18 15:02 Vitamin B12 912.3 pg/mL (211-911) H 10/14/18 08:51 Folate 8.32 ng/mL (7.3-26.0) 10/14/18 08:51 PTH Intact 388.7 pg/mL (15-65) H 10/25/18 10:00 Urine Creatinine 30.8 mg/dL (0.1-20.0) H 10/13/18 04:43 Urine Sodium 106 mmol/L 10/13/18 04:43 Urine Total Protein 75 mg/dL (5-11.8) H 10/13/18 04:43 CSF Appearance Clear 10/16/18 15:00 CSF Color Colorless 10/16/18 15:00 CSF WBC 4 /mm3 (1-10) 10/16/18 15:00 CSF RBC 113 /mm3 (0-0) 10/16/18 15:00 CSF Seg Neutrophils 8.0 % (0-6) 10/16/18 15:00 CSF Lymphocytes % 76.0 % (40-80) 10/16/18 15:00 CSF Reactive Lymphs 2.0 % 10/16/18 15:00 CSF Monocytes % 14.0 % (15-45) 10/16/18 15:00 CSF Eosinophils % 0 % 10/16/18 15:00 CSF Basophils 0 % 10/16/18 15:00 CSF Pathologist Review C 10/16/18 15:00 CSF Glucose 73 mg/dL 10/16/18 15:00 CSF Total Protein 55 mg/dL 10/16/18 15:00 CSF VDRL Nonreactive (Nonreactive) 10/16/18 15:00 Random Vancomycin 18.9 ug/mL (0-40.0) 10/29/18 07:13 Immunofix Electrophor see below 10/11/18 17:36 RENO Screen Negative (Negative) 10/21/18 15:07 Proteinase 3 (PR3) Ab <1.0 AI (<1.0) 10/21/18 15:07 Myeloperoxidase Ab <1.0 AI (<1.0) 10/21/18 15:07 Heparin-induced Plt Ab Negative (Negative) 10/25/18 05:59 UF Heparin High Dose 0 % Release 10/25/18 05:59 VJ UFH Low Dose 0.1 0 % Release 10/25/18 05:59 VJ UFH Low Dose 0.5 14 % Release 10/25/18 05:59 Lymph Enumerat CD4/CD8 0.01 (0.86-5.00) L 10/11/18 17:36 % CD3 Cells 85 % (57-85) 10/11/18 17:36 Absolute CD3 Count 226 cells/uL (840-3060) L 10/11/18 17:36 % CD4 Cells 1 % (30-61) L 10/11/18 17:36 Absolute CD4 Count 3 cells/uL (490-1740) L 10/11/18 17:36 % CD8 Cells 82 % (12-42) H 10/11/18 17:36 Absolute CD8 Count 228 cells/uL (180-1170) 10/11/18 17:36 % CD19 Cells 6 % (6-29) 10/11/18 17:36 Absolute CD19 Count 16 cells/uL (110-660) L 10/11/18 17:36 RPR Titer 1:32 10/11/18 17:37 RPR Reactive (Nonreactive) 10/11/18 17:37 T.pallidum Ab (FTA-ABS) Reactive (Nonreactive) H 10/12/18 Unknown CMV DNA PCR log copyright clerk/mL See scanned result 10/11/18 17:37 Hepatitis A IgM Ab Non-reactive (NonReactive) 10/11/18 17:34 Hep Bs Antigen Non-reactive (Negative) 10/11/18 17:34 Hep B Core IgM Ab Non-reactive (NonReactive) 10/11/18 17:34 Hepatitis C Antibody Non-reactive (NonReactive) 10/11/18 17:34 HIV-1 RNA PCR copies/ml [id number] Copies/mL H 10/11/18 17:36 HIV-1 RNA (PCR) log 5.51 Log cps/mL H 10/11/18 17:36 Toxoplasma IgG Ab <7.20 IU/mL (<7.20) 10/13/18 07:54 Miscellaneous Test Flexitest 1 10/16/18 15:00 Blood Type A POSITIVE 10/23/18 09:12 Antibody Screen Negative 10/23/18 09:12 Crossmatch See Detail 10/23/18 09:12 Active Medications - Current Medications Current Medications: Generic Name Dose Route Start Last Admin Trade Name Freq PRN Reason Stop Dose Admin Acetaminophen 500 mg 10/16/18 10:02 10/28/18 22:35 Tylenol PO 500 mg Q6H PRN Administration Fever >101 Albuterol 2.5 mg 10/10/18 18:12 Proventil IH Q3HRT PRN Shortness Of Breath Albuterol/Ipratropium 1 ampul 10/25/18 08:00 10/29/18 07:51 Duoneb *Not For Prn Use* IH 1 ampul TIDRT RUBI Administration Amlodipine Besylate 10 mg 10/11/18 10:00 10/29/18 10:38 Norvasc PO Not Given QDAY RUBI Lipase/Protease/Amylase 1 each 10/11/18 12:58 Pancreaze 10,500 Unit FEEDTUBE PRN PRN For Clogged Feeding Tube Arformoterol Tartrate 15 mcg 10/20/18 11:45 10/29/18 07:51 Brovana Nebu IH Not Given Q12HRT RUBI Atovaquone 750 mg 10/18/18 10:00 10/29/18 10:38 Mepron PO Not Given BID RUBI Carvedilol 12.5 mg 10/22/18 22:00 10/29/18 10:22 Coreg PO Not Given BID RUBI Haloperidol Lactate 5 mg 10/13/18 19:45 10/20/18 21:08 Haldol IV 5 mg Q6H PRN Administration Agitation Hydralazine HCl 10 mg 10/12/18 15:50 10/28/18 22:36 Apresoline IV 10 mg Q4HR PRN Administration SBP>175 or DBP>115 Hydrophilic Ointment 1 applic 10/10/18 17:53 Vaseline Lip Therapy TP Q2HR PRN Dry Lips Sodium Chloride 100 mls @ 999 mls/hr 10/20/18 09:54 Nacl 0.9% IV CHON PRN Hypotension Ceftriaxone Sodium 2 gm in 100 mls @ 200 mls/hr 10/21/18 15:00 10/28/18 09:44 Rocephin/Ns 2 Gm/100 Ml IV 200 mls/hr Q24HR RUBI Administration Protocol Vancomycin HCl 750 mg/ Sodium 265 mls @ 166.667 mls/hr 10/29/18 20:00 Chloride IV MoWeFr RUBI Lansoprazole 30 mg 10/15/18 10:00 10/29/18 10:38 Prevacid Solutab FEEDTUBE Not Given BID RUBI Lorazepam 1 mg 10/13/18 19:48 10/21/18 04:09 Ativan IV 1 mg Q4H PRN Administration agitation Metoprolol Tartrate 5 mg 10/18/18 14:05 Lopressor IV Q6HR PRN Tachyarrhythmias Multi-Ingred Cream/Lotion/Oil/Oint 1 applic 10/10/18 17:53 Artificial Tears Ophth Oint OU Q4HR PRN Dry Eye(s) Multivitamins 1 each 10/11/18 10:00 10/29/18 10:39 Theragran Tab PO Not Given DAILY RUBI Simple Syrup 15 ml 10/11/18 12:58 Simple Syrup FEEDTUBE PRN PRN Hypoglycemia Simple Syrup 30 ml 10/11/18 12:58 Simple Syrup FEEDTUBE PRN PRN Hypoglycemia Sodium Bicarbonate 325 mg 10/11/18 12:58 Sodium Bicarbonate FEEDTUBE PRN PRN For Clogged Feeding Tube Sodium Chloride 10 ml 10/10/18 22:00 10/28/18 22:23 Sodium Chloride Flush Syringe 10 Ml IV 10 ml BID RUBI Administration Sodium Chloride 10 ml 10/10/18 18:12 Sodium Chloride Flush Syringe 10 Ml IV PRN PRN LINE FLUSH Nutrition/Malnutrition Assess - Dietary Evaluation Nutrition/Malnutrition Findings: Nutrition Notes Start: 10/11/18 11:14 Freq: Status: Active Protocol: Document 10/26/18 16:17 RM (Rec: 10/26/18 16:23 RM [id number]) Nutrition Notes Initial or Follow up Reassessment Current Diagnosis Acute Kidney Injury,CKD(stage I-IV),Hypertension,Stroke Other Pertinent Diagnosis Acute encephalopathy, HIV/AIDS , Syphilis Current Diet Pureed w/nectar thick liquids Labs/Tests BUN 42, Creat 6.5 Pertinent Medications Reviewed Height 5 ft 9 in Weight 72 kg [place] Body Weight (kg) 72.72 BMI 23.4 Subjective/Other Information Pureed w/nectar thick liquids diet recommended per ST note . Pt not in room at time of visit. Recorded PO intake 0% X 2 meals. Percent of energy/protein needs met: 0%/0% Burn Absent Trauma Absent #1 Nutrition Diagnosis Inadequate oral intake Diagnosis Progress(for reassessment Continues documentation) Is patient on ventilator? No Is Patient Ambulatory and/or Out of Bed No REE-([facility]-confined to bed) [phone] Calculation Used for Recommendations [facility] Additional Notes Pro needs 1-1.2g/k-78g/ day Fluid needs 1ml/kcal Nutrition Intervention Add Supplement/Snack (indicate name/kcal Nepro 1 daily /protein ) Provides kCal: 425 Provides Protein (gm) 19 Goal #1 Meet at least 75% of calorie and protein needs via PO and ONS intakes Anticipated Discharge Needs: Pureed diet Follow-Up By: 10/29/18 Additional Comments Follow for PO and ONS intakes
[2018-10-29 12:02] LABS: Anisocytosis 1+; Basophils % (Manual) 0 % (0.0-1.8); Eosinophils % (Manual) 0 % (0.0-4.3); Macrocytosis 1+; Platelet Clumps Rare; Platelet Estimate Consistent w Auto; Total Cells Counted 100
[2018-10-29] MEDS ORDERED: NACL 0.9 (PRIMING MACHINE ONLY DIALYSIS) MC ONE (12:50)
--- NOTE | 2018-10-29 14:03 | Event Note ---
Date: 10/29/18 Patient still having diarrhea. He remains febrile. At this point hold of permcath placement. He also was hupotensive and unresponsive in HD.
[2018-10-29] MEDS: SODIUM CHLORIDE FLUSH SYRINGE 10 ML IV SCH ×2 (16:48→21:56)
[2018-10-29] MEDS: ROCEPHIN/NS 2 GM/100 ML 2 GM/100 ML BAG IV SCH (16:48)
[2018-10-29] MEDS: TYLENOL PO PRN (17:08)
[2018-10-29] MEDS ORDERED: VANCOMYCIN 750 MG in NACL 0.9% 250ML 250 ML IV SCH (20:00)
--- NOTE | 2018-10-29 21:15 | XRay Report ---
PROCEDURE: XR CHEST 1V AP TECHNIQUE: A single upright view of the chest was obtained. HISTORY: SOB COMPARISONS: 10/21/2018 FINDINGS: The lungs appear less congested. There are no localized infiltrates or effusions. The heart size is n ormal. The bones and soft tissues do not show any acute changes. The NG tube has been removed since t he previous study. IMPRESSION: Congestive heart failure with improvement consisting of less congestion than on the previous study.. This document is electronically signed by Claudio Friedman MD., October 29 2018 09:13:17 PM ET
[2018-10-30 07:12] LABS: Calcium 8.3 mg/dL (8.4-10.2)
[2018-10-30] MEDS: DUONEB *Not for PRN Use IH SCH ×3 (08:03→20:21)
--- NOTE | 2018-10-30 08:17 | Hem/Onc Progress Note ---
Assessment and Plan 1. Anemia. At admission, hemoglobin was 8.1, later low and s/p Transfusion support. 2. Platelets at admission was 20. 3. White cell count was elevated. 4. PT/INR h/o slightly elevated. 5. Renal failure. 6. ALT elevated. 7. The patient has multiple medical issues. PLAN: I will ask for a smear evaluation. I will call the lab for same. Supportive care in the interim while we looked for primary etiology. 3/ - plt better - s/p transfusion d/w dr rain and dr carrillo 10/14 - low plt - rasta ctive bleed suprapubic catheter 10/15 - plt were rising and again going down' pt had got plt transfusion LDH high - [id number] ordered smear - ordererd LDH may be high in other causes too - renal etc 10/16 - d/w path - not many schistocytes on smear - ADAMTS 13 ordered extubated 10/17 - plt low - path review ordered d/w armin monsalve 10/18 - path report pending plt low - but no active bleeding 10/19 - pt more alert - follows commands no bleeding 10/20 pt SOB - d/w Dr Monsalve and RN plt low - but no bleeding NGT+ more awake 10/21 - pt in [facility] plt >100 - more awake 10/22 - clinically better - moves all 4 limbs 10/23 - clinically stable - prbc suport 10/24 - as per RN -pt passed barium - for thickened diet pt has suprapubic got PRBC plt improving 10/25 - clinically better no active bleeding 10/26 - moving all extremity -communicating repeat cbc 10/27 - labs better - clinically improving 10/28 - plt now normal - hb better - s/p PRBC recent CKD may have a role 10/29 - pt clinically stable - lathe set up person abn - electrolyte abn 10/30 - cbc improving - pt had question reg rectal tube - he will d/w other MDs - Patient Problems (1) Thrombocytopenia associated with AIDS Current Visit: Yes Status: Acute (2) Anemia Current Visit: Yes Status: Acute Qualifiers: Anemia type: due to chronic kidney disease Chronic kidney disease stage: unspecified stage Qualified Code(s): N18.9 - Chronic kidney disease, unspecified; D63.1 - Anemia in chronic kidney disease Subjective Date of service: 10/30/18 Principal diagnosis: anemia Interval history: doing better pts partner + Objective - Constitutional Vitals: Last Vital Signs Temp 100.1 F H 10/30/18 05:35 Pulse 127 H 10/30/18 08:03 Resp 18 10/30/18 08:03 BP 122/75 10/30/18 05:35 Pulse Ox 100 10/30/18 08:05 Pain Intensity (0-10): denies any pain General appearance: no acute distress Performance status: 4-completely disabled - EENT Eyes: EOM intact ENT: clear oral mucosa Lymph node exam: negative cervical - Neck Neck: normal ROM - Respiratory Respiratory effort: Positive: normal Respiratory: bilateral: CTA - Cardiovascular Heart Sounds: Present: S1 & S2 Extremities: No edema - Gastrointestinal General gastrointestinal: Present: soft, non-tender Rectal Exam: deferred - Genitourinary Male genitourinary: Present: deferred - Integumentary Integumentary: warm - Musculoskeletal Musculoskeletal: generalized weakness - Neurologic Neurologic: moves all extremities - Labs Lab Results: Laboratory Results - last 24 hr 10/25/18 10/29/18 10/30/18 05:59 09:27 05:00 WBC 5.3 RBC 3.34 L Hgb 9.9 L Hct 31.1 L MCV 93 MCH 30 MCHC 32 RDW 20.2 H Plt Count 162 Add Manual Diff Complete Total Counted 100 Seg Neuts % (Manual) 78.0 H Band Neutrophils % 1.0 Lymphocytes % (Manual) 11.0 L Reactive Lymphs % (Man) 0 Monocytes % (Manual) 10.0 H Eosinophils % (Manual) 0 Basophils % (Manual) 0 Metamyelocytes % 0 Myelocytes % 0 Promyelocytes % 0 Blast Cells % 0 Nucleated RBC % 54.0 H Seg Neutrophils # Man 0.0 L Band Neutrophils # 0.0 Lymphocytes # (Manual) 0.0 L Abs React Lymphs (Man) 0.0 Monocytes # (Manual) 0.0 Eosinophils # (Manual) 0.0 Basophils # (Manual) 0.0 Metamyelocytes # 0.0 Myelocytes # 0.0 Promyelocytes # 0.0 Blast Cells # 0.0 WBC Morphology Not Reportable Hypersegmented Neuts Not Reportable Hyposegmented Neuts Not Reportable Hypogranular Neuts Not Reportable Smudge Cells Not Reportable Toxic Granulation Not Reportable Toxic Vacuolation Not Reportable Dohle Bodies Not Reportable Pelger-Huet Anomaly Not Reportable Kartik Rods Not Reportable Platelet Estimate Consistent w auto Clumped Platelets Rare Plt Clumps, EDTA Not Reportable Large Platelets Not Reportable Giant Platelets Not Reportable Platelet Satelliting Not Reportable Plt Morphology Comment Not Reportable RBC Morphology Not Reportable Dimorphic RBCs Not Reportable Polychromasia Not Reportable Hypochromasia Not Reportable Poikilocytosis Not Reportable Anisocytosis 1+ Microcytosis 1+ Macrocytosis 1+ Spherocytes Not Reportable Pappenheimer Bodies Not Reportable Sickle Cells Not Reportable Target Cells Not Reportable Tear Drop Cells Not Reportable Ovalocytes Not Reportable Helmet Cells Not Reportable [place] Bodies Not Reportable [place] Rings Not Reportable Jani Cells Not Reportable Bite Cells Not Reportable Crenated Cell Not Reportable Elliptocytes Not Reportable Acanthocytes (Spur) Not Reportable Rouleaux Not Reportable Hemoglobin C Crystals Not Reportable Schistocytes Not Reportable Malaria parasites Not Reportable Jv Bodies Not Reportable Hem Pathologist Commnt No Heparin Anti-Xa, Unfract Negative Sodium 136 L Potassium 5.3 H Chloride 92.0 L Carbon Dioxide 21 L Anion Gap 28 BUN 77 H Creatinine 9.5 H Estimated GFR 7 BUN/Creatinine Ratio 8 Glucose 108 H Calcium 8.3 L Heparin-induced Plt Ab Negative UF Heparin High Dose 0 VJ UFH Low Dose 0.1 0 VJ UFH Low Dose 0.5 14 Medications & Allergies - Medications Allergies/Adverse Reactions: Allergies Sulfa (Sulfonamide Antibiotics) Allergy (Verified 10/10/18 16:54) Unknown Home Medications: Home Medications Medication Instructions Recorded Confirmed Last Taken Type Acetaminophen [Tylenol] 1,000 mg PO Q6HR 10/10/18 10/10/18 Unknown History Amlodipine Besylate [Norvasc] 10 mg PO QDAY 10/10/18 10/10/18 Unknown History Aspirin [Adult Aspirin] 81 mg PO DAILY 10/10/18 10/10/18 Unknown History Atorvastatin [Lipitor Tab] 80 mg PO DAILY 10/10/18 10/10/18 Unknown History Losartan [Cozaar] 100 mg PO QDAY 10/10/18 10/10/18 Unknown History Multivitamin [Multiple Vitamins] 1 each PO DAILY 10/10/18 10/10/18 Unknown History hydroCHLOROthiazide [HCTZ] 25 mg PO QDAY 10/10/18 10/10/18 Unknown History Active Medications: Generic Name Dose Route Start Last Admin Trade Name Freq PRN Reason Stop Dose Admin Acetaminophen 500 mg 10/16/18 10:02 10/29/18 17:08 Tylenol PO 500 mg Q6H PRN Administration Fever >101 Albuterol 2.5 mg 10/10/18 18:12 Proventil IH Q3HRT PRN Shortness Of Breath Albuterol/Ipratropium 1 ampul 10/25/18 08:00 10/30/18 08:03 Duoneb *Not For Prn Use* IH 1 ampul TIDRT RUBI Administration Amlodipine Besylate 10 mg 10/11/18 10:00 10/29/18 10:38 Norvasc PO Not Given QDAY RUBI Lipase/Protease/Amylase 1 each 10/11/18 12:58 Pancreazkarlos Reed 10,500 Unit FEEDTUBE PRN PRN For Clogged Feeding Tube Arformoterol Tartrate 15 mcg 10/20/18 11:45 10/29/18 20:17 Brovana Nebu IH 15 mcg Q12HRT RUBI Administration Atovaquone 750 mg 10/18/18 10:00 10/29/18 21:55 Mepron PO 750 mg BID RUBI Administration Carvedilol 12.5 mg 10/22/18 22:00 10/29/18 21:55 Coreg PO 12.5 mg BID RUBI Administration Haloperidol Lactate 5 mg 10/13/18 19:45 10/20/18 21:08 Haldol IV 5 mg Q6H PRN Administration Agitation Hydralazine HCl 10 mg 10/12/18 15:50 10/28/18 22:36 Apresoline IV 10 mg Q4HR PRN Administration SBP>175 or DBP>115 Hydrophilic Ointment 1 applic 10/10/18 17:53 Vaseline Lip Therapy TP Q2HR PRN Dry Lips Sodium Chloride 100 mls @ 999 mls/hr 10/20/18 09:54 Nacl 0.9% IV CHON PRN Hypotension Ceftriaxone Sodium 2 gm in 100 mls @ 200 mls/hr 10/21/18 15:00 10/29/18 16:48 Rocephin/Ns 2 Gm/100 Ml IV 200 mls/hr Q24HR RUBI Administration Protocol Vancomycin HCl 750 mg/ Sodium 265 mls @ 166.667 mls/hr 10/29/18 20:00 10/29/18 21:28 Chloride IV 166.667 mls/hr MoWeFr RUBI Administration Lansoprazole 30 mg 10/15/18 10:00 10/29/18 21:54 Prevacid Solutab FEEDTUBE 30 mg BID RUBI Administration Lorazepam 1 mg 10/13/18 19:48 10/21/18 04:09 Ativan IV 1 mg Q4H PRN Administration agitation Metoprolol Tartrate 5 mg 10/18/18 14:05 Lopressor IV Q6HR PRN Tachyarrhythmias Multi-Ingred Cream/Lotion/Oil/Oint 1 applic 10/10/18 17:53 Artificial Tears Ophth Oint OU Q4HR PRN Dry Eye(s) Multivitamins 1 each 10/11/18 10:00 10/29/18 10:39 Theragran Tab PO Not Given DAILY RUBI Simple Syrup 15 ml 10/11/18 12:58 Simple Syrup FEEDTUBE PRN PRN Hypoglycemia Simple Syrup 30 ml 10/11/18 12:58 Simple Syrup FEEDTUBE PRN PRN Hypoglycemia Sodium Bicarbonate 325 mg 10/11/18 12:58 Sodium Bicarbonate FEEDTUBE PRN PRN For Clogged Feeding Tube Sodium Chloride 10 ml 10/10/18 22:00 10/29/18 21:56 Sodium Chloride Flush Syringe 10 Ml IV 10 ml BID RUBI Administration Sodium Chloride 10 ml 10/10/18 18:12 Sodium Chloride Flush Syringe 10 Ml IV PRN PRN LINE FLUSH
[2018-10-30] MEDS: PREVACID SOLUTAB FEEDTUBE SCH ×2 (09:30→21:39)
[2018-10-30] MEDS: MEPRON PO SCH ×2 (09:30→21:40)
[2018-10-30] MEDS: THERAGRAN Tab PO SCH (09:30)
[2018-10-30] MEDS: COREG PO SCH ×2 (09:30→21:39)
[2018-10-30] MEDS: ROCEPHIN/NS 2 GM/100 ML 2 GM/100 ML BAG IV SCH (09:30)
[2018-10-30] MEDS: NORVASC PO SCH (09:30)
[2018-10-30] MEDS: SODIUM CHLORIDE FLUSH SYRINGE 10 ML IV SCH ×2 (09:31→23:36)
--- NOTE | 2018-10-30 10:09 | Progress Note ---
Assessment and Plan Cultures: Blood culture 10/10/2018 no growth. Sputum culture 10/10/2018 Ana Paula albicans. Crypto Ag 10/10/2018 neg. Urine culture 10/13/2018 no growth. Blood culture 10/17/2018 no growth. Blood culture 10/20/2018: no growth Stool Occult Blood 10/23/18: positive Blood culture 10/29/18: in progress Assessment: 43 y/o male with history of HIV (unknown CD4/VL/ART intake), HTN, CVA 6 months ago at [place], Nicotine Dependence, Malnutrition; admitted on 10/10/2018 due to AMS (confusion/lethargy) and slurred speech for 24 h: 1) Severe SIRS versus sepsis: Fever Jesús 102.8. unclear etiology. Repeat Chest xray shows no consolidation. Will start HIV treatment inpatient. - CXR neg - Unable to obtain UA - patient was anuric - BNP 70K - Troponin 0.2 - LDH 2242 2) Acute hypoxemic respiratory failure: for airway protection +/- ? pneumonia. Repeat CXR no consolidations. Ana Paula in tracha sp likely a colonizer. Extubated 10/15 3) Acute encephalopathy: Improved.; multifactorial ?from hypertensive urgency +/- brain opportunistic infection. DDx: Neurosyphilis, VZV/CMV encephalitis versus COMPUTER ENGINEER lymphoma versus less likely PML - CT head showed bilateral chronic ischemic changes. - Brain MRI showed areas of edema in the basal ganglia and thalami bilaterally, within the jamari and in the cerebral hemispheres bilaterally in the subcortical and deep white matter and in portions of the cortex, areas of encephalomalacia in the basal ganglia bilaterally with evidence of previous hemorrhage or mineral deposition and numerous small foci of acute infarct in the basal ganglia bilaterally, subinsular regions bilaterally and medial temporal lobes bilaterally and possibly in the occipital cortex bilaterally. - RPR reactive 1:32 / FTA ABs reactive - Brain MRA showed possible dissection versus artifact at the basilar artery. Luminal irregularity at the anterior, middle, and posterior cerebral arteries as well as the carotid siphons may represent mild to moderate atherosclerotic disea se. More notable narrowing at the distal right A1 segment. Differential diagnosis includes motion artifact and vasculitis. Vertebral arteries are not clearly visualized. - CSF wbc 4, rbc 113, Seg 8%, Lymph 76%, protein 55, glucose 73 which is not c/w meningitis - Toxoplasma IgG negative - On ganciclovir, penicillin and high dosed mepron - CMV DNA VL=1,370, 3.1 log on ganciclovir - likely reactivation - CSF VDRL non reactive, Toxoplasma PCR: negative 4) Anemia/thrombocytopenia: 5) Acute on CKD or SHRUTHI ? unclear etiology: 6) DM: uncontrolled. 8) Elevated LFTs ? 9) HIV/AIDS: VL 320,000 / CD4=3 on 10/11/2018 Recommendations: -continue Mepron (atovaquone) 750 mg BID -continue Ceftriaxone 2gms IV q 24, D10 -discontinue Vancomycin, -f/u CMV DNA PCR, HIV Genotype, 1,3 [id number] -D/W Dr. Arreguin, will start HIV treatment inpatient. [facility] M: [phone] O:[phone] Subjective Date of service: 10/30/18 Principal diagnosis: anemia - HIV Interval history: Patient seen and examined. Non-focal and non conversant today. mild acute distress observed. Objective - Exam Narrative Exam: General appearance: Awake, non-focal, non conversant. Mild distress observed Eyes: anicteric sclerae, moist conjunctivae; no lid-lag; PERRLA HENT: Atraumatic; oropharynx limited Neck: Trachea midline; supple, no thyromegaly or lymphadenopathy Lungs: CTA, with normal respiratory effort, on CV: tachycardic Abdomen: Soft, non-tender;+SP cath Extremities: No peripheral edema or extremity lymphadenopathy Skin: Normal temperature, turgor and texture; no rash, ulcers or subcutaneous nodules Psych: affect: Flat Neuro: Generalized weakness, not following commands - Constitutional Vitals: Vital Signs Temp Pulse Resp BP Pulse Ox 100.1 F H 124 H 16 122/75 100 10/30/18 05:35 10/30/18 09:30 10/30/18 08:18 10/30/18 09:30 10/30/18 08:05 Temperature -Last 24 Hours Temperature 100.1 F Temperature 98.3 F Temperature 102.8 F Temperature 98.0 F Temperature 98.0 F - Labs CBC & Chem 7: 10/29/18 09:27 10/30/18 05:00 Labs: Abnormal lab results 10/29/18 10/30/18 Range/Units 09:27 05:00 RBC 3.34 L (3.65-5.03) M/mm3 Hgb 9.9 L (11.8-15.2) gm/dl Hct 31.1 L (35.5-45.6) % RDW 20.2 H (13.2-15.2) % Seg Neuts % (Manual) 78.0 H (40.0-70.0) % Lymphocytes % (Manual) 11.0 L (13.4-35.0) % Monocytes % (Manual) 10.0 H (0.0-7.3) % Nucleated RBC % 54.0 H (0.0-0.9) % Seg Neutrophils # Man 0.0 L (1.8-7.7) K/mm3 Lymphocytes # (Manual) 0.0 L (1.2-5.4) K/mm3 Sodium 136 L (137-145) mmol/L Potassium 5.3 H (3.6-5.0) mmol/L Chloride 92.0 L (98-107) mmol/L Carbon Dioxide 21 L (22-30) mmol/L BUN 77 H (9-20) mg/dL Creatinine 9.5 H (0.8-1.5) mg/dL Glucose 108 H (75-100) mg/dL Calcium 8.3 L (8.4-10.2) mg/dL
--- NOTE | 2018-10-30 12:11 | Progress Note ---
Assessment and Plan - Patient Problems (1) Acute kidney injury Current Visit: Yes Status: Acute Plan to address problem: Acute kidney injury : severe I reviewed renal Ultrasound with 10.1cm and 10.8cm kidneys bilateral echogenic Possible aetiologies of Acute kidney injury is likely 2/2 acute tubular injury ,possible underlying HIV associated nephropathy cannot be excluded . He is currently oliguric currently dialysis dependent. Currently has a Mahurkar We'll need tunneled dialysis catheter placement unfortunately still febrile Once febrile episodes resolve Discussed with vascular surgery may need Mahurkar replaced if febrile episodes persist Avoid Nephrotoxic medications. 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 (3) Hyperkalemia, diminished renal excretion Current Visit: Yes Status: Acute Plan to address problem: Hyperkalemia setting of renal failure potassium is 5.3 We'll repeat hemodialysis in the a.m. (4) Metabolic acidosis Current Visit: Yes Status: Acute Plan to address problem: Metabolic acidosis secondary to renal failure We'll continue dialysis Subjective Principal diagnosis: anemia - HIV Interval history: 43 year old gentleman with medical history significant for HIV admitted with Sepsis , acute hypoxemic respiratory failure , Encephalopathy , transaminitis and worsening renal failure . Patient seen this morning Receive dialysis yesterday he did have some hypotension and decreased responsiveness on dialysis Ultrafiltration was discontinued Improved with oxygen administration He is having breakfast today partner at bedside still has some diarrhea unfortunately still febrile 102 temperature recorded yesterday afternoon Objective - Vital Signs Vital signs: Vital Signs - 12hr 10/30/18 10/30/18 10/30/18 05:35 08:03 08:05 Temperature 100.1 F H Pulse Rate 124 H Pulse Rate [ 127 H Bilateral Throughout] Respiratory 16 Rate Respiratory 18 Rate [Bilateral Throughout] Blood Pressure 122/75 O2 Sat by Pulse 100 100 Oximetry 10/30/18 10/30/18 08:18 09:30 Temperature Pulse Rate 124 H Pulse Rate [ 132 H Bilateral Throughout] Respiratory Rate Respiratory 16 Rate [Bilateral Throughout] Blood Pressure 122/75 O2 Sat by Pulse Oximetry - General Appearance General appearance: cachectic, chronically ill, frail EENT: ATNC, mucous membranes dry Neck: no JVD, no thyromegaly, supple Respiratory: Present: Decreased Breath Sounds Cardiology: regular, S1S2 Gastrointestinal: normal, normoactive bowel sounds Integumentary: no rash Neurologic: other (awake responds appropriately) Musculoskeletal: deferred, deformities Psychiatric: depressed - Lab 10/29/18 09:27 10/30/18 05:00 Most recent lab results Calcium 8.3 mg/dL (8.4-10.2) L 10/30/18 05:00 Phosphorus 8.30 mg/dL (2.5-4.5) H 10/25/18 10:00 Magnesium 3.10 mg/dL (1.7-2.3) H 10/18/18 05:03 Urine Creatinine 30.8 mg/dL (0.1-20.0) H 10/13/18 04:43 Urine Sodium 106 mmol/L 10/13/18 04:43 Urine Total Protein 75 mg/dL (5-11.8) H 10/13/18 04:43 - Imaging Chest x-ray: image reviewed (I reviewed chest x-ray with interstitial opacities) Medications & Allergies - Medications Allergies/Adverse Reactions: Allergies Sulfa (Sulfonamide Antibiotics) Allergy (Verified 10/10/18 16:54) Unknown Home Medications: Home Medications Medication Instructions Recorded Confirmed Last Taken Type Acetaminophen [Tylenol] 1,000 mg PO Q6HR 10/10/18 10/10/18 Unknown History Amlodipine Besylate [Norvasc] 10 mg PO QDAY 10/10/18 10/10/18 Unknown History Aspirin [Adult Aspirin] 81 mg PO DAILY 10/10/18 10/10/18 Unknown History Atorvastatin [Lipitor Tab] 80 mg PO DAILY 10/10/18 10/10/18 Unknown History Losartan [Cozaar] 100 mg PO QDAY 10/10/18 10/10/18 Unknown History Multivitamin [Multiple Vitamins] 1 each PO DAILY 10/10/18 10/10/18 Unknown History hydroCHLOROthiazide [HCTZ] 25 mg PO QDAY 10/10/18 10/10/18 Unknown History Active Medications: Generic Name Dose Route Start Last Admin Trade Name Freq PRN Reason Stop Dose Admin Acetaminophen 500 mg 10/16/18 10:02 10/29/18 17:08 Tylenol PO 500 mg Q6H PRN Administration Fever >101 Albuterol 2.5 mg 10/10/18 18:12 Proventil IH Q3HRT PRN Shortness Of Breath Albuterol/Ipratropium 1 ampul 10/25/18 08:00 10/30/18 08:03 Duoneb *Not For Prn Use* IH 1 ampul TIDRT RUBI Administration Amlodipine Besylate 10 mg 10/11/18 10:00 10/30/18 09:30 Norvasc PO 10 mg QDAY RUBI Administration Lipase/Protease/Amylase 1 each 10/11/18 12:58 Pancreazkarlos Reed 10,500 Unit FEEDTUBE PRN PRN For Clogged Feeding Tube Arformoterol Tartrate 15 mcg 10/20/18 11:45 10/29/18 20:17 Brovana Nebu IH 15 mcg Q12HRT RUBI Administration Atovaquone 750 mg 10/18/18 10:00 10/30/18 09:30 Mepron PO 750 mg BID RUBI Administration Carvedilol 12.5 mg 10/22/18 22:00 10/30/18 09:30 Coreg PO 12.5 mg BID RUBI Administration Haloperidol Lactate 5 mg 10/13/18 19:45 10/20/18 21:08 Haldol IV 5 mg Q6H PRN Administration Agitation Hydralazine HCl 10 mg 10/12/18 15:50 10/28/18 22:36 Apresoline IV 10 mg Q4HR PRN Administration SBP>175 or DBP>115 Hydrophilic Ointment 1 applic 10/10/18 17:53 Vaseline Lip Therapy TP Q2HR PRN Dry Lips Sodium Chloride 100 mls @ 999 mls/hr 10/20/18 09:54 Nacl 0.9% IV CHON PRN Hypotension Ceftriaxone Sodium 2 gm in 100 mls @ 200 mls/hr 10/21/18 15:00 10/30/18 09:30 Rocephin/Ns 2 Gm/100 Ml IV 200 mls/hr Q24HR RUBI Administration Protocol Vancomycin HCl 750 mg/ Sodium 265 mls @ 166.667 mls/hr 10/29/18 20:00 10/29/18 21:28 Chloride IV 166.667 mls/hr MoWeFr RUBI Administration Lansoprazole 30 mg 10/15/18 10:00 10/30/18 09:30 Prevacid Solutab FEEDTUBE 30 mg BID RUBI Administration Lorazepam 1 mg 10/13/18 19:48 10/21/18 04:09 Ativan IV 1 mg Q4H PRN Administration agitation Metoprolol Tartrate 5 mg 10/18/18 14:05 Lopressor IV Q6HR PRN Tachyarrhythmias Multi-Ingred Cream/Lotion/Oil/Oint 1 applic 10/10/18 17:53 Artificial Tears Ophth Oint OU Q4HR PRN Dry Eye(s) Multivitamins 1 each 10/11/18 10:00 10/30/18 09:30 Theragran Tab PO 1 each DAILY RUBI Administration Simple Syrup 15 ml 10/11/18 12:58 Simple Syrup FEEDTUBE PRN PRN Hypoglycemia Simple Syrup 30 ml 10/11/18 12:58 Simple Syrup FEEDTUBE PRN PRN Hypoglycemia Sodium Bicarbonate 325 mg 10/11/18 12:58 Sodium Bicarbonate FEEDTUBE PRN PRN For Clogged Feeding Tube Sodium Chloride 10 ml 10/10/18 22:00 10/30/18 09:31 Sodium Chloride Flush Syringe 10 Ml IV 10 ml BID RUBI Administration Sodium Chloride 10 ml 10/10/18 18:12 Sodium Chloride Flush Syringe 10 Ml IV PRN PRN LINE FLUSH
[2018-10-30] MEDS: BROVANA NEBU IH SCH ×2 (15:12→20:21)
--- NOTE | 2018-10-30 18:11 | Progress Note ---
Assessment and Plan Assessment and plan: patient is 43 YO Male with HIV, hypertension, previous stroke, Nicotine Dependence, presents to ED for evaluation. Patient was confused and lethargic and unable to provide history. He was seen and evaluated in ED and found to be in distress and unable to protect his airway and was therefore intubated, placed on ventilator in ER then admitted MR brain 10/11 1. Study somewhat degraded by motion artifact. 2 Areas of edema in the basal ganglia and thalami bilaterally, within the jamari and in the cerebral hemispheres bilaterally in the subcortical and deep white matter and in portions of the cortex. 3. Areas of encephalomalacia in the basal ganglia bilaterally with evidence of previous hemorrhage or mineral deposition. 4. Numerous small foci of acute infarct in the basal ganglia bilaterally, subinsular regions bilaterally and medial temporal lobes bilaterally and possibly in the occipital cortex bilaterally. The above findings may be secondary to an infectious or noninfectious etiology with a component of vasculopathy or vasculitis resulting in infarcts. Viral encephalopathies and lymphoma would need to be considered in this patient with history of HIV. Neuro ams acute metabolic encephalopathy improving /Acute CVA with Bilateral infarcts with edema Consulted Neurology, he was evaluated by DR. Valentine. Could be due to possible vasculitis - further workup pending Dysphagia/ moderate malnutrition -MBS 10/23, recommended pureed with nectar thickened liquids Hematology Anemia- stable, thrombocytopenia, leukocytosis, coagulopathy; now resolved -Status post platelet and prbc transfusion, the patient had only few schistocytes on smear, ADAMS13 91% activity ID HIV/AIDS, CD4 count 3, HIV viral load 320,000 acute bacterial PNA, CMV viremia toxo neg, CSF neg Whole blood cmv PCR was positive at 1374 abx and antiviral per ID high fever, cxr shows improvement of vasc congestion, fup blood cx, femoral vas cath to be removed tomorrow after HD, as it may be source of infection FEN/Renal SHRUTHI- ATN, Hyperkalemia, urinary retention sp SPC on 10/12 cont HD per nephrology, no signs of renal recovery Pulm acute hypoxic resp failure on MV> 96 hours self extubated 10/16, continue supplemental oxygen CVS /Hypertensive urgency and acute systolic CHF He was treated with Cardene drip which was weaned off. Optimize medications for CHF on coreg, no mik due to high K, fluid removal by dialysis DVT ppx- scds, given that he pw thrombocytopenia History Interval history: Patient continues to have weakness of his voice, having high grade fever Review of systems Constitutional: , no malaise, no joint pains CVS: No chest pain, no orthopnea, no dyspnea on exertion, no pedal edema GI: No abdominal pain, no diarrhea, no vomiting, no constipation Respiratory: No shortness of breath, no wheezing, no coughing Hospitalist Physical - Physical exam Narrative exam: General.: Appears well, no distress, nontoxic HEENT: Moist mucous membranes, extraocular muscles intact, no lymphadenopathy Neck: supple Cardiac: S1-S2 heard Lungs: clear to auscultation bilaterally Abdomen: soft , nontender, nondistended, bowel sounds positive Extremities: no edema clubbing or cyanosis Skin: no rash or lesions Neurologic: no gross focal deficits Psych: calm, and cooperative - Constitutional Vitals: Temp Pulse Resp BP Pulse Ox 97.1 F L 121 H 22 97/51 97 10/30/18 17:24 10/30/18 17:24 10/30/18 17:24 10/30/18 17:24 10/30/18 17:24 General appearance: Present: no acute distress Results - Labs CBC & Chem 7: 10/29/18 09:27 10/30/18 05:00 Labs: Laboratory Last Values WBC 5.3 K/mm3 (4.5-11.0) 10/29/18 09:27 RBC 3.34 M/mm3 (3.65-5.03) L 10/29/18 09:27 Hgb 9.9 gm/dl (11.8-15.2) L 10/29/18 09:27 Hct 31.1 % (35.5-45.6) L 10/29/18 09:27 MCV 93 fl (84-94) 10/29/18 09:27 MCH 30 pg (28-32) 10/29/18 09:27 MCHC 32 % (32-34) 10/29/18 09:27 RDW 20.2 % (13.2-15.2) H 10/29/18 09:27 Plt Count 162 K/mm3 (140-440) 10/29/18 09:27 Add Manual Diff Complete 10/29/18 09:27 Total Counted 100 10/29/18 09:27 Seg Neuts % (Manual) 78.0 % (40.0-70.0) H 10/29/18 09:27 Band Neutrophils % 1.0 % 10/29/18 09:27 Lymphocytes % (Manual) 11.0 % (13.4-35.0) L 10/29/18 09:27 Reactive Lymphs % (Man) 0 % 10/29/18 09:27 Monocytes % (Manual) 10.0 % (0.0-7.3) H 10/29/18 09:27 Eosinophils % (Manual) 0 % (0.0-4.3) 10/29/18 09:27 Basophils % (Manual) 0 % (0.0-1.8) 10/29/18 09:27 Metamyelocytes % 0 % 10/29/18 09:27 Myelocytes % 0 % 10/29/18 09:27 Promyelocytes % 0 % 10/29/18 09:27 Blast Cells % 0 % 10/29/18 09:27 Nucleated RBC % 54.0 % (0.0-0.9) H 10/29/18 09:27 Seg Neutrophils # Man 0.0 K/mm3 (1.8-7.7) L 10/29/18 09:27 Band Neutrophils # 0.0 K/mm3 10/29/18 09:27 Abs Lymphs (Manual) 267 cells/uL (850-3900) L 10/11/18 17:36 Lymphocytes # (Manual) 0.0 K/mm3 (1.2-5.4) L 10/29/18 09:27 Abs React Lymphs (Man) 0.0 K/mm3 10/29/18 09:27 Monocytes # (Manual) 0.0 K/mm3 (0.0-0.8) 10/29/18 09:27 Eosinophils # (Manual) 0.0 K/mm3 (0.0-0.4) 10/29/18 09:27 Basophils # (Manual) 0.0 K/mm3 (0.0-0.1) 10/29/18 09:27 Metamyelocytes # 0.0 K/mm3 10/29/18 09:27 Myelocytes # 0.0 K/mm3 10/29/18 09:27 Promyelocytes # 0.0 K/mm3 10/29/18 09:27 Blast Cells # 0.0 K/mm3 10/29/18 09:27 Pathologist Review 10/15/18 03:14 WBC Morphology Not Reportable 10/29/18 09:27 Hypersegmented Neuts Not Reportable 10/29/18 09:27 Hyposegmented Neuts Not Reportable 10/29/18 09:27 Hypogranular Neuts Not Reportable 10/29/18 09:27 Smudge Cells Not Reportable 10/29/18 09:27 Toxic Granulation Not Reportable 10/29/18 09:27 Toxic Vacuolation Not Reportable 10/29/18 09:27 Dohle Bodies Not Reportable 10/29/18 09:27 Pelger-Huet Anomaly Not Reportable 10/29/18 09:27 Kartik Rods Not Reportable 10/29/18 09:27 Platelet Estimate Consistent w auto 10/29/18 09:27 Clumped Platelets Rare 10/29/18 09:27 Plt Clumps, EDTA Not Reportable 10/29/18 09:27 Large Platelets Not Reportable 10/29/18 09:27 Giant Platelets Not Reportable 10/29/18 09:27 Platelet Satelliting Not Reportable 10/29/18 09:27 Plt Morphology Comment Not Reportable 10/29/18 09:27 RBC Morphology Not Reportable 10/29/18 09:27 Dimorphic RBCs Not Reportable 10/29/18 09:27 Polychromasia Not Reportable 10/29/18 09:27 Hypochromasia Not Reportable 10/29/18 09:27 Poikilocytosis Not Reportable 10/29/18 09:27 Anisocytosis 1+ 10/29/18 09:27 Microcytosis 1+ 10/29/18 09:27 Macrocytosis 1+ 10/29/18 09:27 Spherocytes Not Reportable 10/29/18 09:27 Pappenheimer Bodies Not Reportable 10/29/18 09:27 Sickle Cells Not Reportable 10/29/18 09:27 Target Cells Not Reportable 10/29/18 09:27 Tear Drop Cells Not Reportable 10/29/18 09:27 Ovalocytes Not Reportable 10/29/18 09:27 Helmet Cells Not Reportable 10/29/18 09:27 [place] Bodies Not Reportable 10/29/18 09:27 Donnellson Rings Not Reportable 10/29/18 09:27 Jani Cells Not Reportable 10/29/18 09:27 Bite Cells Not Reportable 10/29/18 09:27 Crenated Cell Not Reportable 10/29/18 09:27 Elliptocytes Not Reportable 10/29/18 09:27 Acanthocytes (Spur) Not Reportable 10/29/18 09:27 Rouleaux Not Reportable 10/29/18 09:27 Hemoglobin C Crystals Not Reportable 10/29/18 09:27 Schistocytes Not Reportable 10/29/18 09:27 Malaria parasites Not Reportable 10/29/18 09:27 Jv Bodies Not Reportable 10/29/18 09:27 Hem Pathologist Commnt No 10/29/18 09:27 PT 14.5 Sec. (12.2-14.9) 10/15/18 00:59 INR 1.06 (0.87-1.13) 10/15/18 00:59 APTT 27.9 Sec. (24.2-36.6) 10/10/18 15:02 Thrombin Time 16.9 Sec. (15.1-19.6) 10/10/18 15:02 Heparin Anti-Xa, Unfract Negative (Negative) 10/25/18 05:59 POC ABG pH 7.535 (7.35-7.45) H 10/21/18 09:49 POC ABG pCO2 32.0 (35-45) L 10/21/18 09:49 POC ABG pO2 57 (80-105) L 10/21/18 09:49 POC ABG HCO3 27.1 10/21/18 09:49 POC ABG Total CO2 28 10/21/18 09:49 POC ABG O2 Sat 93 10/21/18 09:49 POC ABG Base Excess 4 10/21/18 09:49 FiO2 21 % 10/21/18 09:49 Sodium 136 mmol/L (137-145) L 10/30/18 05:00 Potassium 5.3 mmol/L (3.6-5.0) H 10/30/18 05:00 Chloride 92.0 mmol/L (98-107) L 10/30/18 05:00 Carbon Dioxide 21 mmol/L (22-30) L 10/30/18 05:00 Anion Gap 28 mmol/L 10/30/18 05:00 BUN 77 mg/dL (9-20) H 10/30/18 05:00 Creatinine 9.5 mg/dL (0.8-1.5) H 10/30/18 05:00 Estimated GFR 7 ml/min 10/30/18 05:00 BUN/Creatinine Ratio 8 % 10/30/18 05:00 Glucose 108 mg/dL (75-100) H 10/30/18 05:00 POC Glucose 139 (70-105) H 10/20/18 13:07 Osmolality 338 Mosm/kg 10/11/18 17:35 Lactic Acid 1.80 mmol/L (0.7-2.0) 10/12/18 05:59 Uric Acid 13.4 mg/dL (3.5-7.6) H 10/11/18 17:36 Calcium 8.3 mg/dL (8.4-10.2) L 10/30/18 05:00 Phosphorus 8.30 mg/dL (2.5-4.5) H 10/25/18 10:00 Magnesium 3.10 mg/dL (1.7-2.3) H 10/18/18 05:03 Iron 147 ug/dL (49-181) 10/11/18 17:36 TIBC 236 mcg/dL (250-450) L 10/11/18 17:36 Ferritin 13693.0 ng/mL (13.0-400.0) H 10/11/18 17:35 Total Bilirubin 0.40 mg/dL (0.1-1.2) 10/25/18 10:00 Direct Bilirubin 0.2 mg/dL (0-0.2) 10/16/18 04:07 Indirect Bilirubin 0.3 mg/dL 10/16/18 04:07 AST 46 units/L (5-40) H 10/25/18 10:00 ALT 21 units/L (7-56) 10/25/18 10:00 Alkaline Phosphatase 102 units/L (35-129) 10/25/18 10:00 Ammonia 25.0 umol/L (25-60) 10/17/18 14:59 Lactate Dehydrogenase 925 units/L (91-180) H 10/22/18 05:51 Troponin T 0.272 ng/mL (0.00-0.029) H* 10/10/18 18:07 NT-Pro-B Natriuret Pep 59855 pg/mL (0-450) H 10/10/18 15:42 Total Protein 8.1 g/dL (6.3-8.2) 10/25/18 10:00 Albumin 3.5 g/dL (3.9-5) L 10/25/18 10:00 Albumin/Globulin Ratio 0.8 % 10/25/18 10:00 Triglycerides 329 mg/dL (2-149) H 10/10/18 15:02 Cholesterol 234 mg/dL (50-199) H 10/10/18 15:02 LDL Cholesterol Direct 139 mg/dL (50-130) H 10/10/18 15:02 HDL Cholesterol 42 mg/dL (40-59) 10/10/18 15:02 Cholesterol/HDL Ratio 5.57 % 10/10/18 15:02 Vitamin B12 912.3 pg/mL (211-911) H 10/14/18 08:51 Folate 8.32 ng/mL (7.3-26.0) 10/14/18 08:51 PTH Intact 388.7 pg/mL (15-65) H 10/25/18 10:00 Urine Creatinine 30.8 mg/dL (0.1-20.0) H 10/13/18 04:43 Urine Sodium 106 mmol/L 10/13/18 04:43 Urine Total Protein 75 mg/dL (5-11.8) H 10/13/18 04:43 CSF Appearance Clear 10/16/18 15:00 CSF Color Colorless 10/16/18 15:00 CSF WBC 4 /mm3 (1-10) 10/16/18 15:00 CSF RBC 113 /mm3 (0-0) 10/16/18 15:00 CSF Seg Neutrophils 8.0 % (0-6) 10/16/18 15:00 CSF Lymphocytes % 76.0 % (40-80) 10/16/18 15:00 CSF Reactive Lymphs 2.0 % 10/16/18 15:00 CSF Monocytes % 14.0 % (15-45) 10/16/18 15:00 CSF Eosinophils % 0 % 10/16/18 15:00 CSF Basophils 0 % 10/16/18 15:00 CSF Pathologist Review C 10/16/18 15:00 CSF Glucose 73 mg/dL 10/16/18 15:00 CSF Total Protein 55 mg/dL 10/16/18 15:00 CSF VDRL Nonreactive (Nonreactive) 10/16/18 15:00 Random Vancomycin 18.9 ug/mL (0-40.0) 10/29/18 07:13 Immunofix Electrophor see below 10/11/18 17:36 RENO Screen Negative (Negative) 10/21/18 15:07 Proteinase 3 (PR3) Ab <1.0 AI (<1.0) 10/21/18 15:07 Myeloperoxidase Ab <1.0 AI (<1.0) 10/21/18 15:07 Heparin-induced Plt Ab Negative (Negative) 10/25/18 05:59 UF Heparin High Dose 0 % Release 10/25/18 05:59 VJ UFH Low Dose 0.1 0 % Release 10/25/18 05:59 VJ UFH Low Dose 0.5 14 % Release 10/25/18 05:59 Lymph Enumerat CD4/CD8 0.01 (0.86-5.00) L 10/11/18 17:36 % CD3 Cells 85 % (57-85) 10/11/18 17:36 Absolute CD3 Count 226 cells/uL (840-3060) L 10/11/18 17:36 % CD4 Cells 1 % (30-61) L 10/11/18 17:36 Absolute CD4 Count 3 cells/uL (490-1740) L 10/11/18 17:36 % CD8 Cells 82 % (12-42) H 10/11/18 17:36 Absolute CD8 Count 228 cells/uL (180-1170) 10/11/18 17:36 % CD19 Cells 6 % (6-29) 10/11/18 17:36 Absolute CD19 Count 16 cells/uL (110-660) L 10/11/18 17:36 RPR Titer 1:32 10/11/18 17:37 RPR Reactive (Nonreactive) 10/11/18 17:37 T.pallidum Ab (FTA-ABS) Reactive (Nonreactive) H 10/12/18 Unknown CMV DNA PCR log endoscopy rn/mL See scanned result 10/11/18 17:37 Hepatitis A IgM Ab Non-reactive (NonReactive) 10/11/18 17:34 Hep Bs Antigen Non-reactive (Negative) 10/11/18 17:34 Hep B Core IgM Ab Non-reactive (NonReactive) 10/11/18 17:34 Hepatitis C Antibody Non-reactive (NonReactive) 10/11/18 17:34 HIV-1 RNA PCR copies/ml [id number] Copies/mL H 10/11/18 17:36 HIV-1 RNA (PCR) log 5.51 Log cps/mL H 10/11/18 17:36 Toxoplasma IgG Ab <7.20 IU/mL (<7.20) 10/13/18 07:54 Miscellaneous Test Flexitest 1 10/16/18 15:00 Blood Type A POSITIVE 10/23/18 09:12 Antibody Screen Negative 10/23/18 09:12 Crossmatch See Detail 10/23/18 09:12 Active Medications - Current Medications Current Medications: Generic Name Dose Route Start Last Admin Trade Name Freq PRN Reason Stop Dose Admin Acetaminophen 500 mg 10/16/18 10:02 10/29/18 17:08 Tylenol PO 500 mg Q6H PRN Administration Fever >101 Albuterol 2.5 mg 10/10/18 18:12 Proventil IH Q3HRT PRN Shortness Of Breath Albuterol/Ipratropium 1 ampul 10/25/18 08:00 10/30/18 15:12 Duoneb *Not For Prn Use* IH 1 ampul TIDRT RUBI Administration Amlodipine Besylate 10 mg 10/11/18 10:00 10/30/18 09:30 Norvasc PO 10 mg QDAY RUBI Administration Lipase/Protease/Amylase 1 each 10/11/18 12:58 Pancrebecka Reed 10,500 Unit FEEDTUBE PRN PRN For Clogged Feeding Tube Arformoterol Tartrate 15 mcg 10/20/18 11:45 10/30/18 15:12 Brovana Gemma IH Not Given Q12HRT RUBI Atovaquone 750 mg 10/18/18 10:00 10/30/18 09:30 Mepron PO 750 mg BID RUBI Administration Carvedilol 12.5 mg 10/22/18 22:00 10/30/18 09:30 Coreg PO 12.5 mg BID RUBI Administration Darunavir 800 mg 10/30/18 18:00 Prezista PO QDAY RUBI Emtricitabine 200 mg 11/01/18 10:00 Emtriva PO Q48HR [facility] Haloperidol Lactate 5 mg 10/13/18 19:45 10/20/18 21:08 Haldol IV 5 mg Q6H PRN Administration Agitation Hydralazine HCl 10 mg 10/12/18 15:50 10/28/18 22:36 Apresoline IV 10 mg Q4HR PRN Administration SBP>175 or DBP>115 Hydrophilic Ointment 1 applic 10/10/18 17:53 Vaseline Lip Therapy TP Q2HR PRN Dry Lips Sodium Chloride 100 mls @ 999 mls/hr 10/20/18 09:54 Nacl 0.9% IV CHON PRN Hypotension Ceftriaxone Sodium 2 gm in 100 mls @ 200 mls/hr 10/31/18 10:00 Rocephin/Ns 2 Gm/100 Ml IV Q24HR RUBI Protocol Lansoprazole 30 mg 10/15/18 10:00 10/30/18 09:30 Prevacid Solutab FEEDTUBE 30 mg BID RUBI Administration Lorazepam 1 mg 10/13/18 19:48 10/21/18 04:09 Ativan IV 1 mg Q4H PRN Administration agitation Metoprolol Tartrate 5 mg 10/18/18 14:05 Lopressor IV Q6HR PRN Tachyarrhythmias Multi-Ingred Cream/Lotion/Oil/Oint 1 applic 10/10/18 17:53 Artificial Tears Ophth Oint OU Q4HR PRN Dry Eye(s) Multivitamins 1 each 10/11/18 10:00 10/30/18 09:30 Theragran Tab PO 1 each DAILY RUBI Administration Ritonavir 100 mg 10/30/18 18:00 Norvir PO QDAY RUBI Simple Syrup 15 ml 10/11/18 12:58 Simple Syrup FEEDTUBE PRN PRN Hypoglycemia Simple Syrup 30 ml 10/11/18 12:58 Simple Syrup FEEDTUBE PRN PRN Hypoglycemia Sodium Bicarbonate 325 mg 10/11/18 12:58 Sodium Bicarbonate FEEDTUBE PRN PRN For Clogged Feeding Tube Sodium Chloride 10 ml 10/10/18 22:00 10/30/18 09:31 Sodium Chloride Flush Syringe 10 Ml IV 10 ml BID RUBI Administration Sodium Chloride 10 ml 10/10/18 18:12 Sodium Chloride Flush Syringe 10 Ml IV PRN PRN LINE FLUSH Tenofovir Disoproxil Fumarate 300 mg 10/30/18 17:45 Viread PO Q96H RUBI Nutrition/Malnutrition Assess - Dietary Evaluation Nutrition/Malnutrition Findings: Nutrition Notes Start: 10/11/18 11:14 Freq: Status: Active Protocol: Document 10/29/18 15:52 RM (Rec: 10/29/18 15:57 RM [id number]) Nutrition Notes Initial or Follow up Reassessment Current Diagnosis Acute Kidney Injury,CKD(stage I-IV),Hypertension,Stroke Other Pertinent Diagnosis Acute encephalopathy, HIV/AIDS , Syphilis Current Diet Pureed w/nectar thick liquids w/Nepro 1 daily Labs/Tests BUN 103 Pertinent Medications Reviewed Height 5 ft 9 in Weight 72 kg Preemption Body Weight (kg) 72.72 BMI 23.4 Subjective/Other Information Pt confused at time of visit. Pt tech stated that pt ate half of his lunch and drank all of the Nepro. Percent of energy/protein needs met: 69%/88% Burn Absent Trauma Absent #1 Nutrition Diagnosis Inadequate oral intake As Evidenced by Signs and Symptoms pt meeting 69% of calorie and 88% of protein needs Diagnosis Progress(for reassessment Improved documentation) Is patient on ventilator? No Is Patient Ambulatory and/or Out of Bed No REE-(Smith-St. Jeor-confined to bed) [phone] Calculation Used for Recommendations Smith-St Jeor Additional Notes Pro needs 1-1.2g/k-78g/ day Fluid needs 1ml/kcal Nutrition Intervention Change Diet Order: Continue current Add Supplement/Snack (indicate name/kcal Nepro 1 daily /protein ) Provides kCal: 425 Provides Protein (gm) 19 Goal #1 Meet at least 75% of calorie and protein needs via PO and ONS intakes Anticipated Discharge Needs: Pureed diet Follow-Up By: 11/01/18 Additional Comments Follow for PO and ONS intakes
[2018-10-30] MEDS: NORVIR PO SCH (20:05)
[2018-10-30] MEDS: PREZISTA PO SCH (20:06)
[2018-10-30] MEDS: TIVICAY PO SCH (20:07)
[2018-10-30] MEDS: VIREAD PO SCH (20:09)
--- NOTE | 2018-10-31 07:37 | Hem/Onc Progress Note ---
Assessment and Plan 1. Anemia. At admission, hemoglobin was 8.1, later low and s/p Transfusion support. 2. Platelets at admission was 20. 3. White cell count was elevated. 4. PT/INR h/o slightly elevated. 5. Renal failure. 6. ALT elevated. 7. The patient has multiple medical issues. PLAN: I will ask for a smear evaluation. I will call the lab for same. Supportive care in the interim while we looked for primary etiology. 3/ - plt better - s/p transfusion d/w dr rain and dr carrillo 10/14 - low plt - rasta ctive bleed suprapubic catheter 10/15 - plt were rising and again going down' pt had got plt transfusion LDH high - [id number] ordered smear - ordererd LDH may be high in other causes too - renal etc 10/16 - d/w path - not many schistocytes on smear - ADAMTS 13 ordered extubated 10/17 - plt low - path review ordered d/w armin monsalve 10/18 - path report pending plt low - but no active bleeding 10/19 - pt more alert - follows commands no bleeding 10/20 pt SOB - d/w Dr Monsalve and RN plt low - but no bleeding NGT+ more awake 10/21 - pt in IMC plt >100 - more awake 10/22 - clinically better - moves all 4 limbs 10/23 - clinically stable - prbc suport 10/24 - as per RN -pt passed barium - for thickened diet pt has suprapubic got PRBC plt improving 10/25 - clinically better no active bleeding 10/26 - moving all extremity -communicating repeat cbc 10/27 - labs better - clinically improving 10/28 - plt now normal - hb better - s/p PRBC recent CKD may have a role 10/29 - 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/30 - cbc improving - pt had question reg rectal tube - he will d/w other MDs 10/31 - plt better - hb better - OP follow up an option - Patient Problems (1) Thrombocytopenia associated with AIDS Current Visit: Yes Status: Acute (2) Anemia Current Visit: Yes Status: Acute Qualifiers: Anemia type: due to chronic kidney disease Chronic kidney disease stage: unspecified stage Qualified Code(s): N18.9 - Chronic kidney disease, unspecified; D63.1 - Anemia in chronic kidney disease Subjective Date of service: 10/31/18 Principal diagnosis: anemia - HIV Interval history: pt says doing ok Objective - Constitutional Vitals: Last Vital Signs Temp 98.7 F 10/31/18 00:08 Pulse 115 H 10/31/18 00:08 Resp 19 10/31/18 00:08 BP 108/63 10/31/18 00:08 Pulse Ox 98 10/31/18 00:08 Pain Intensity (0-10): denies any pain General appearance: no acute distress Performance status: 3-limited selfcare - EENT Eyes: EOM intact ENT: clear oral mucosa Lymph node exam: negative cervical - Respiratory Respiratory effort: Positive: normal Respiratory: bilateral: CTA - Cardiovascular Heart Sounds: Present: S1 & S2 Extremities: No edema - Gastrointestinal General gastrointestinal: Present: soft, non-tender Rectal Exam: deferred - Genitourinary Male genitourinary: Present: deferred - Integumentary Integumentary: warm - Musculoskeletal Musculoskeletal: generalized weakness - Neurologic Neurologic: moves all extremities Medications & Allergies - Medications Allergies/Adverse Reactions: Allergies Sulfa (Sulfonamide Antibiotics) Allergy (Verified 10/10/18 16:54) Unknown Home Medications: Home Medications Medication Instructions Recorded Confirmed Last Taken Type Acetaminophen [Tylenol] 1,000 mg PO Q6HR 10/10/18 10/10/18 Unknown History Amlodipine Besylate [Norvasc] 10 mg PO QDAY 10/10/18 10/10/18 Unknown History Aspirin [Adult Aspirin] 81 mg PO DAILY 10/10/18 10/10/18 Unknown History Atorvastatin [Lipitor Tab] 80 mg PO DAILY 10/10/18 10/10/18 Unknown History Losartan [Cozaar] 100 mg PO QDAY 10/10/18 10/10/18 Unknown History Multivitamin [Multiple Vitamins] 1 each PO DAILY 10/10/18 10/10/18 Unknown History hydroCHLOROthiazide [HCTZ] 25 mg PO QDAY 10/10/18 10/10/18 Unknown History Active Medications: Generic Name Dose Route Start Last Admin Trade Name Freq PRN Reason Stop Dose Admin Acetaminophen 500 mg 10/16/18 10:02 10/29/18 17:08 Tylenol PO 500 mg Q6H PRN Administration Fever >101 Albuterol 2.5 mg 10/10/18 18:12 Proventil IH Q3HRT PRN Shortness Of Breath Albuterol/Ipratropium 1 ampul 10/25/18 08:00 10/30/18 20:21 Duoneb *Not For Prn Use* IH Not Given TIDRT RUBI Amlodipine Besylate 10 mg 10/11/18 10:00 10/30/18 09:30 Norvasc PO 10 mg QDAY RUBI Administration Lipase/Protease/Amylase 1 each 10/11/18 12:58 Pancreaze 10,500 Unit FEEDTUBE PRN PRN For Clogged Feeding Tube Arformoterol Tartrate 15 mcg 10/20/18 11:45 10/30/18 20:21 Brovana Nebu IH 15 mcg Q12HRT RUBI Administration Atovaquone 750 mg 10/18/18 10:00 10/30/18 21:40 Mepron PO 750 mg BID RUBI Administration Carvedilol 12.5 mg 10/22/18 22:00 10/30/18 21:39 Coreg PO 12.5 mg BID RUBI Administration Darunavir 800 mg 10/30/18 18:00 10/30/18 20:06 Prezista PO 800 mg QDAY [facility] Administration Emtricitabine 200 mg 11/01/18 10:00 Emtriva PO Q48HR [facility] Haloperidol Lactate 5 mg 10/13/18 19:45 10/20/18 21:08 Haldol IV 5 mg Q6H PRN Administration Agitation Hydralazine HCl 10 mg 10/12/18 15:50 10/28/18 22:36 Apresoline IV 10 mg Q4HR PRN Administration SBP>175 or DBP>115 Hydrophilic Ointment 1 applic 10/10/18 17:53 Vaseline Lip Therapy TP Q2HR PRN Dry Lips Sodium Chloride 100 mls @ 999 mls/hr 10/20/18 09:54 Nacl 0.9% IV CHON PRN Hypotension Ceftriaxone Sodium 2 gm in 100 mls @ 200 mls/hr 10/31/18 10:00 Rocephin/Ns 2 Gm/100 Ml IV Q24HR [facility] Protocol Lansoprazole 30 mg 10/15/18 10:00 10/30/18 21:39 Prevacid Solutab FEEDTUBE 30 mg BID RUBI Administration Lorazepam 1 mg 10/13/18 19:48 10/21/18 04:09 Ativan IV 1 mg Q4H PRN Administration agitation Metoprolol Tartrate 5 mg 10/18/18 14:05 Lopressor IV Q6HR PRN Tachyarrhythmias Multi-Ingred Cream/Lotion/Oil/Oint 1 applic 10/10/18 17:53 Artificial Tears Ophth Oint OU Q4HR PRN Dry Eye(s) Multivitamins 1 each 10/11/18 10:00 10/30/18 09:30 Theragran Tab PO 1 each DAILY RUBI Administration Ritonavir 100 mg 10/30/18 18:00 10/30/18 20:05 Norvir PO 100 mg QDAY RUBI Administration Simple Syrup 15 ml 10/11/18 12:58 Simple Syrup FEEDTUBE PRN PRN Hypoglycemia Simple Syrup 30 ml 10/11/18 12:58 Simple Syrup FEEDTUBE PRN PRN Hypoglycemia Sodium Bicarbonate 325 mg 10/11/18 12:58 Sodium Bicarbonate FEEDTUBE PRN PRN For Clogged Feeding Tube Sodium Chloride 10 ml 10/10/18 22:00 10/30/18 23:36 Sodium Chloride Flush Syringe 10 Ml IV 10 ml BID RUBI Administration Sodium Chloride 10 ml 10/10/18 18:12 Sodium Chloride Flush Syringe 10 Ml IV PRN PRN LINE FLUSH Tenofovir Disoproxil Fumarate 300 mg 10/30/18 17:45 10/30/18 20:09 Viread PO 300 mg Q96H RUBI Administration
[2018-10-31 07:47] LABS: Calcium 8.3 mg/dL (8.4-10.2)
[2018-10-31] MEDS ORDERED: NACL 0.9% 100 ML IV PRN (08:00)
[2018-10-31] MEDS: BROVANA NEBU IH SCH ×2 (08:08→21:06)
[2018-10-31] MEDS: DUONEB *Not for PRN Use IH SCH ×3 (08:08→21:10)
[2018-10-31] MEDS: COREG PO SCH ×2 (10:00→23:22)
[2018-10-31] MEDS: THERAGRAN Tab PO SCH (10:00)
[2018-10-31] MEDS: NORVASC PO SCH (10:00)
[2018-10-31] MEDS: PREVACID SOLUTAB FEEDTUBE SCH ×2 (10:00→23:23)
[2018-10-31] MEDS: NORVIR PO SCH (10:00)
[2018-10-31] MEDS: SODIUM CHLORIDE FLUSH SYRINGE 10 ML IV SCH ×2 (10:00→23:23)
[2018-10-31] MEDS: PREZISTA PO SCH (10:00)
[2018-10-31] MEDS: MEPRON PO SCH ×2 (10:00→23:23)
[2018-10-31] MEDS: TIVICAY PO SCH (10:00)
[2018-10-31] MEDS ORDERED: ROCEPHIN/NS 2 GM/100 ML 2 GM/100 ML BAG IV SCH (10:00)
--- NOTE | 2018-10-31 10:05 | Progress Note ---
Assessment and Plan Cultures: Blood culture 10/10/2018 no growth. Sputum culture 10/10/2018 Ana Paula albicans. Crypto Ag 10/10/2018 neg. Urine culture 10/13/2018 no growth. Blood culture 10/17/2018 no growth. Blood culture 10/20/2018: no growth Stool Occult Blood 10/23/18: positive Blood culture 10/29/18: in progress Assessment: 43 y/o male with history of HIV (unknown CD4/VL/ART intake), HTN, CVA 6 months ago at [place], Nicotine Dependence, Malnutrition; admitted on 10/10/2018 due to AMS (confusion/lethargy) and slurred speech for 24 h: 1) Severe SIRS versus sepsis: continued on and off Fevers, unclear etiology. repeat Chest xray shows no consolidation. Fevers could be related to uncontrolled HIV/AIDS. 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 For now, will start renally adjusted tenofovir, emtricitabine along with dolutegravir and ritonavir boosted darunavir. Follow up response and Genotype. 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 Femoral vas cath to be removed tomorrow after HD, +/- source of infection. - CXR neg - Unable to obtain UA - patient was anuric - BNP 70K - Troponin 0.2 - LDH 2242 2) Acute hypoxemic respiratory failure: for airway protection +/- ? pneumonia. Repeat CXR no consolidations. Ana Paula in tracha sp likely a colonizer. Extubated 10/15 3) Acute encephalopathy: Improved.; multifactorial ?from hypertensive urgency +/- brain opportunistic infection. DDx: Neurosyphilis, VZV/CMV encephalitis versus AUDIT SPECIALIST lymphoma versus less likely PML - CT head showed bilateral chronic ischemic changes. - Brain MRI showed areas of edema in the basal ganglia and thalami bilaterally, within the jamari and in the cerebral hemispheres bilaterally in the subcortical and deep white matter and in portions of the cortex, areas of encephalomalacia in the basal ganglia bilaterally with evidence of previous hemorrhage or mineral deposition and numerous small foci of acute infarct in the basal ganglia bilaterally, subinsular regions bilaterally and medial temporal lobes bilaterally and possibly in the occipital cortex bilaterally. - RPR reactive 1:32 / FTA ABs reactive - Brain MRA showed possible dissection versus artifact at the basilar artery. Luminal irregularity at the anterior, middle, and posterior cerebral arteries as well as the carotid siphons may represent mild to moderate atherosclerotic disease. More notable narrowing at the distal right A1 segment. Differential diagnosis includes motion artifact and vasculitis. Vertebral arteries are not clearly visualized. - CSF wbc 4, rbc 113, Seg 8%, Lymph 76%, protein 55, glucose 73 which is not c/w meningitis - Toxoplasma IgG negative - On ganciclovir, penicillin and high dosed mepron - CMV DNA VL=1,370, 3.1 log on ganciclovir - likely reactivation - CSF VDRL non reactive, Toxoplasma PCR: negative -CMV DNA PCR: <200, QN PCR <2.30 4) Anemia/thrombocytopenia: 5) Acute on CKD or SHRUTHI ? unclear etiology: 6) DM: uncontrolled. 8) Elevated LFTs ? 9) HIV/AIDS: VL 320,000 / CD4=3 on 10/11/2018 Recommendations: -continue Mepron (atovaquone) 750 mg BID , D14 -continue Ceftriaxone 2gms IV q 24, D11 ,-HIV Genotype, 1,3 [id number] -Fevers could be related to uncontrolled HIV/AIDS. Will initiate HAART -start renally adjusted tenofovir, emtricitabine along with dolutegravir and ritonavir boosted darunavir. [facility] M: [phone] O:[phone] Subjective Date of service: 10/31/18 Principal diagnosis: anemia - HIV Objective - Constitutional Vitals: Vital Signs Temp Pulse Resp BP Pulse Ox 98.7 F 104 H 20 108/63 98 10/31/18 00:08 10/31/18 08:18 10/31/18 08:18 10/31/18 00:08 10/31/18 09:36 Temperature -Last 24 Hours Temperature 98.7 F Temperature 97.1 F Temperature 100.8 F - Labs CBC & Chem 7: 10/29/18 09:27 10/31/18 06:43 Labs: Abnormal lab results 10/31/18 Range/Units 06:43 Potassium 6.1 H* (3.6-5.0) mmol/L Chloride 90.9 L (98-107) mmol/L Carbon Dioxide 17 L (22-30) mmol/L BUN 110 H (9-20) mg/dL Creatinine 13.5 H (0.8-1.5) mg/dL Glucose 104 H (75-100) mg/dL Calcium 8.3 L (8.4-10.2) mg/dL
--- NOTE | 2018-10-31 10:52 | Progress Note ---
Assessment and Plan Assessment and plan: patient is 43 YO Male with HIV, hypertension, previous stroke, Nicotine Dependence, presents to ED for evaluation. Patient was confused and lethargic and unable to provide history. He was seen and evaluated in ED and found to be in distress and unable to protect his airway and was therefore intubated, placed on ventilator in ER then admitted MR brain 10/11 1. Study somewhat degraded by motion artifact. 2 Areas of edema in the basal ganglia and thalami bilaterally, within the jamari and in the cerebral hemispheres bilaterally in the subcortical and deep white matter and in portions of the cortex. 3. Areas of encephalomalacia in the basal ganglia bilaterally with evidence of previous hemorrhage or mineral deposition. 4. Numerous small foci of acute infarct in the basal ganglia bilaterally, subinsular regions bilaterally and medial temporal lobes bilaterally and possibly in the occipital cortex bilaterally. The above findings may be secondary to an infectious or noninfectious etiology with a component of vasculopathy or vasculitis resulting in infarcts. Viral encephalopathies and lymphoma would need to be considered in this patient with history of HIV. Neuro ams acute metabolic encephalopathy improving /Acute CVA with Bilateral infarcts with edema Consulted Neurology, he was evaluated by DR. Valentine. Could be due to possible vasculitis - further workup pending Dysphagia/ moderate malnutrition -MBS 10/23, recommended pureed with nectar thickened liquids Hematology Anemia- stable, thrombocytopenia, leukocytosis, coagulopathy; now resolved -Status post platelet and prbc transfusion, the patient had only few schistocytes on smear, ADAMS13 91% activity ID HIV/AIDS, CD4 count 3, HIV viral load 320,000 acute bacterial PNA, CMV viremia toxo neg, CSF neg Whole blood cmv PCR was positive at 1374 abx and antiviral per ID high fever, cxr shows improvement of vasc congestion, fup blood cx, femoral vas cath to be removed after HD today, as it may be source of infection FEN/Renal SHRUTHI- ATN, Hyperkalemia, urinary retention sp SPC on 10/12 cont HD per nephrology, no signs of renal recovery Pulm acute hypoxic resp failure on MV> 96 hours self extubated 10/16, continue supplemental oxygen CVS /Hypertensive urgency and acute systolic CHF He was treated with Cardene drip which was weaned off. Optimize medications for CHF on coreg, no mik due to high K, fluid removal by dialysis DVT ppx- scds, given that he pw thrombocytopenia History Interval history: Patient continues to have weakness of his voice, having high grade fever Review of systems Constitutional: , no malaise, no joint pains CVS: No chest pain, no orthopnea, no dyspnea on exertion, no pedal edema GI: No abdominal pain, no diarrhea, no vomiting, no constipation Respiratory: No shortness of breath, no wheezing, no coughing Hospitalist Physical - Physical exam Narrative exam: General.: Appears well, no distress, nontoxic HEENT: Moist mucous membranes, extraocular muscles intact, no lymphadenopathy Neck: supple Cardiac: S1-S2 heard Lungs: clear to auscultation bilaterally Abdomen: soft , nontender, nondistended, bowel sounds positive Extremities: no edema clubbing or cyanosis Skin: no rash or lesions Neurologic: no gross focal deficits Psych: calm, and cooperative - Constitutional Vitals: Temp Pulse Resp BP Pulse Ox 98.7 F 104 H 20 108/63 98 10/31/18 00:08 10/31/18 08:18 10/31/18 08:18 10/31/18 00:08 10/31/18 09:36 General appearance: Present: no acute distress Results - Labs CBC & Chem 7: 10/29/18 09:27 10/31/18 06:43 Labs: Laboratory Last Values WBC 5.3 K/mm3 (4.5-11.0) 10/29/18 09:27 RBC 3.34 M/mm3 (3.65-5.03) L 10/29/18 09:27 Hgb 9.9 gm/dl (11.8-15.2) L 10/29/18 09:27 Hct 31.1 % (35.5-45.6) L 10/29/18 09:27 MCV 93 fl (84-94) 10/29/18 09:27 MCH 30 pg (28-32) 10/29/18 09:27 MCHC 32 % (32-34) 10/29/18 09:27 RDW 20.2 % (13.2-15.2) H 10/29/18 09:27 Plt Count 162 K/mm3 (140-440) 10/29/18 09:27 Add Manual Diff Complete 10/29/18 09:27 Total Counted 100 10/29/18 09:27 Seg Neuts % (Manual) 78.0 % (40.0-70.0) H 10/29/18 09:27 Band Neutrophils % 1.0 % 10/29/18 09:27 Lymphocytes % (Manual) 11.0 % (13.4-35.0) L 10/29/18 09:27 Reactive Lymphs % (Man) 0 % 10/29/18 09:27 Monocytes % (Manual) 10.0 % (0.0-7.3) H 10/29/18 09:27 Eosinophils % (Manual) 0 % (0.0-4.3) 10/29/18 09:27 Basophils % (Manual) 0 % (0.0-1.8) 10/29/18 09:27 Metamyelocytes % 0 % 10/29/18 09:27 Myelocytes % 0 % 10/29/18 09:27 Promyelocytes % 0 % 10/29/18 09:27 Blast Cells % 0 % 10/29/18 09:27 Nucleated RBC % 54.0 % (0.0-0.9) H 10/29/18 09:27 Seg Neutrophils # Man 0.0 K/mm3 (1.8-7.7) L 10/29/18 09:27 Band Neutrophils # 0.0 K/mm3 10/29/18 09:27 Abs Lymphs (Manual) 267 cells/uL (850-3900) L 10/11/18 17:36 Lymphocytes # (Manual) 0.0 K/mm3 (1.2-5.4) L 10/29/18 09:27 Abs React Lymphs (Man) 0.0 K/mm3 10/29/18 09:27 Monocytes # (Manual) 0.0 K/mm3 (0.0-0.8) 10/29/18 09:27 Eosinophils # (Manual) 0.0 K/mm3 (0.0-0.4) 10/29/18 09:27 Basophils # (Manual) 0.0 K/mm3 (0.0-0.1) 10/29/18 09:27 Metamyelocytes # 0.0 K/mm3 10/29/18 09:27 Myelocytes # 0.0 K/mm3 10/29/18 09:27 Promyelocytes # 0.0 K/mm3 10/29/18 09:27 Blast Cells # 0.0 K/mm3 10/29/18 09:27 Pathologist Review 03/04/19 03:14 WBC Morphology Not Reportable 10/29/18 09:27 Hypersegmented Neuts Not Reportable 10/29/18 09:27 Hyposegmented Neuts Not Reportable 10/29/18 09:27 Hypogranular Neuts Not Reportable 10/29/18 09:27 Smudge Cells Not Reportable 10/29/18 09:27 Toxic Granulation Not Reportable 10/29/18 09:27 Toxic Vacuolation Not Reportable 10/29/18 09:27 Dohle Bodies Not Reportable 10/29/18 09:27 Pelger-Huet Anomaly Not Reportable 10/29/18 09:27 Kartik Rods Not Reportable 10/29/18 09:27 Platelet Estimate Consistent w auto 10/29/18 09:27 Clumped Platelets Rare 10/29/18 09:27 Plt Clumps, EDTA Not Reportable 10/29/18 09:27 Large Platelets Not Reportable 10/29/18 09:27 Giant Platelets Not Reportable 10/29/18 09:27 Platelet Satelliting Not Reportable 10/29/18 09:27 Plt Morphology Comment Not Reportable 10/29/18 09:27 RBC Morphology Not Reportable 10/29/18 09:27 Dimorphic RBCs Not Reportable 10/29/18 09:27 Polychromasia Not Reportable 10/29/18 09:27 Hypochromasia Not Reportable 10/29/18 09:27 Poikilocytosis Not Reportable 10/29/18 09:27 Anisocytosis 1+ 10/29/18 09:27 Microcytosis 1+ 10/29/18 09:27 Macrocytosis 1+ 10/29/18 09:27 Spherocytes Not Reportable 10/29/18 09:27 Pappenheimer Bodies Not Reportable 10/29/18 09:27 Sickle Cells Not Reportable 10/29/18 09:27 Target Cells Not Reportable 10/29/18 09:27 Tear Drop Cells Not Reportable 10/29/18 09:27 Ovalocytes Not Reportable 10/29/18 09:27 Helmet Cells Not Reportable 10/29/18 09:27 Smith-Cogswell Bodies Not Reportable 10/29/18 09:27 Seaman Rings Not Reportable 10/29/18 09:27 Jani Cells Not Reportable 10/29/18 09:27 Bite Cells Not Reportable 10/29/18 09:27 Crenated Cell Not Reportable 10/29/18 09:27 Elliptocytes Not Reportable 10/29/18 09:27 Acanthocytes (Spur) Not Reportable 10/29/18 09:27 Rouleaux Not Reportable 10/29/18 09:27 Hemoglobin C Crystals Not Reportable 10/29/18 09:27 Schistocytes Not Reportable 10/29/18 09:27 Malaria parasites Not Reportable 10/29/18 09:27 Jv Bodies Not Reportable 10/29/18 09:27 Hem Pathologist Commnt No 10/29/18 09:27 PT 14.5 Sec. (12.2-14.9) 10/15/18 00:59 INR 1.06 (0.87-1.13) 10/15/18 00:59 APTT 27.9 Sec. (24.2-36.6) 10/10/18 15:02 Thrombin Time 16.9 Sec. (15.1-19.6) 10/10/18 15:02 Heparin Anti-Xa, Unfract Negative (Negative) 10/25/18 05:59 POC ABG pH 7.535 (7.35-7.45) H 10/21/18 09:49 POC ABG pCO2 32.0 (35-45) L 10/21/18 09:49 POC ABG pO2 57 (80-105) L 10/21/18 09:49 POC ABG HCO3 27.1 10/21/18 09:49 POC ABG Total CO2 28 10/21/18 09:49 POC ABG O2 Sat 93 10/21/18 09:49 POC ABG Base Excess 4 10/21/18 09:49 FiO2 21 % 10/21/18 09:49 Sodium 139 mmol/L (137-145) 10/31/18 06:43 Potassium 6.1 mmol/L (3.6-5.0) H* 10/31/18 06:43 Chloride 90.9 mmol/L (98-107) L 10/31/18 06:43 Carbon Dioxide 17 mmol/L (22-30) L 10/31/18 06:43 Anion Gap 37 mmol/L 10/31/18 06:43 BUN 110 mg/dL (9-20) H 10/31/18 06:43 Creatinine 13.5 mg/dL (0.8-1.5) H 10/31/18 06:43 Estimated GFR 5 ml/min 10/31/18 06:43 BUN/Creatinine Ratio 8 % 10/31/18 06:43 Glucose 104 mg/dL (75-100) H 10/31/18 06:43 POC Glucose 139 (70-105) H 10/20/18 13:07 Osmolality 338 Mosm/kg 10/11/18 17:35 Lactic Acid 1.80 mmol/L (0.7-2.0) 10/12/18 05:59 Uric Acid 13.4 mg/dL (3.5-7.6) H 10/11/18 17:36 Calcium 8.3 mg/dL (8.4-10.2) L 10/31/18 06:43 Phosphorus 8.30 mg/dL (2.5-4.5) H 10/25/18 10:00 Magnesium 3.10 mg/dL (1.7-2.3) H 10/18/18 05:03 Iron 147 ug/dL (49-181) 10/11/18 17:36 TIBC 236 mcg/dL (250-450) L 10/11/18 17:36 Ferritin 63410.0 ng/mL (13.0-400.0) H 10/11/18 17:35 Total Bilirubin 0.40 mg/dL (0.1-1.2) 10/25/18 10:00 Direct Bilirubin 0.2 mg/dL (0-0.2) 10/16/18 04:07 Indirect Bilirubin 0.3 mg/dL 10/16/18 04:07 AST 46 units/L (5-40) H 10/25/18 10:00 ALT 21 units/L (7-56) 10/25/18 10:00 Alkaline Phosphatase 102 units/L (35-129) 10/25/18 10:00 Ammonia 25.0 umol/L (25-60) 10/17/18 14:59 Lactate Dehydrogenase 925 units/L (91-180) H 10/22/18 05:51 Troponin T 0.272 ng/mL (0.00-0.029) H* 10/10/18 18:07 NT-Pro-B Natriuret Pep 81141 pg/mL (0-450) H 10/10/18 15:42 Total Protein 8.1 g/dL (6.3-8.2) 10/25/18 10:00 Albumin 3.5 g/dL (3.9-5) L 10/25/18 10:00 Albumin/Globulin Ratio 0.8 % 10/25/18 10:00 Triglycerides 329 mg/dL (2-149) H 10/10/18 15:02 Cholesterol 234 mg/dL (50-199) H 10/10/18 15:02 LDL Cholesterol Direct 139 mg/dL (50-130) H 10/10/18 15:02 HDL Cholesterol 42 mg/dL (40-59) 10/10/18 15:02 Cholesterol/HDL Ratio 5.57 % 10/10/18 15:02 Vitamin B12 912.3 pg/mL (211-911) H 10/14/18 08:51 Folate 8.32 ng/mL (7.3-26.0) 10/14/18 08:51 PTH Intact 388.7 pg/mL (15-65) H 10/25/18 10:00 Urine Creatinine 30.8 mg/dL (0.1-20.0) H 10/13/18 04:43 Urine Sodium 106 mmol/L 10/13/18 04:43 Urine Total Protein 75 mg/dL (5-11.8) H 10/13/18 04:43 CSF Appearance Clear 10/16/18 15:00 CSF Color Colorless 10/16/18 15:00 CSF WBC 4 /mm3 (1-10) 10/16/18 15:00 CSF RBC 113 /mm3 (0-0) 10/16/18 15:00 CSF Seg Neutrophils 8.0 % (0-6) 10/16/18 15:00 CSF Lymphocytes % 76.0 % (40-80) 10/16/18 15:00 CSF Reactive Lymphs 2.0 % 10/16/18 15:00 CSF Monocytes % 14.0 % (15-45) 10/16/18 15:00 CSF Eosinophils % 0 % 10/16/18 15:00 CSF Basophils 0 % 10/16/18 15:00 CSF Pathologist Review C 10/16/18 15:00 CSF Glucose 73 mg/dL 10/16/18 15:00 CSF Total Protein 55 mg/dL 10/16/18 15:00 CSF VDRL Nonreactive (Nonreactive) 10/16/18 15:00 Random Vancomycin 18.9 ug/mL (0-40.0) 10/29/18 07:13 Immunofix Electrophor see below 10/11/18 17:36 RENO Screen Negative (Negative) 10/21/18 15:07 Proteinase 3 (PR3) Ab <1.0 AI (<1.0) 10/21/18 15:07 Myeloperoxidase Ab <1.0 AI (<1.0) 10/21/18 15:07 Heparin-induced Plt Ab Negative (Negative) 10/25/18 05:59 UF Heparin High Dose 0 % Release 10/25/18 05:59 VJ UFH Low Dose 0.1 0 % Release 10/25/18 05:59 VJ UFH Low Dose 0.5 14 % Release 10/25/18 05:59 Lymph Enumerat CD4/CD8 0.01 (0.86-5.00) L 10/11/18 17:36 % CD3 Cells 85 % (57-85) 10/11/18 17:36 Absolute CD3 Count 226 cells/uL (840-3060) L 10/11/18 17:36 % CD4 Cells 1 % (30-61) L 10/11/18 17:36 Absolute CD4 Count 3 cells/uL (490-1740) L 10/11/18 17:36 % CD8 Cells 82 % (12-42) H 10/11/18 17:36 Absolute CD8 Count 228 cells/uL (180-1170) 10/11/18 17:36 % CD19 Cells 6 % (6-29) 10/11/18 17:36 Absolute CD19 Count 16 cells/uL (110-660) L 10/11/18 17:36 RPR Titer 1:32 10/11/18 17:37 RPR Reactive (Nonreactive) 10/11/18 17:37 T.pallidum Ab (FTA-ABS) Reactive (Nonreactive) H 10/12/18 Unknown CMV DNA PCR log picture copyist/mL See scanned result 10/11/18 17:37 Hepatitis A IgM Ab Non-reactive (NonReactive) 10/11/18 17:34 Hep Bs Antigen Non-reactive (Negative) 10/11/18 17:34 Hep B Core IgM Ab Non-reactive (NonReactive) 10/11/18 17:34 Hepatitis C Antibody Non-reactive (NonReactive) 10/11/18 17:34 HIV-1 RNA PCR copies/ml [id number] Copies/mL H 10/11/18 17:36 HIV-1 RNA (PCR) log 5.51 Log cps/mL H 10/11/18 17:36 Toxoplasma IgG Ab <7.20 IU/mL (<7.20) 10/13/18 07:54 Miscellaneous Test Flexitest 1 10/16/18 15:00 Blood Type A POSITIVE 10/23/18 09:12 Antibody Screen Negative 10/23/18 09:12 Crossmatch See Detail 10/23/18 09:12 Active Medications - Current Medications Current Medications: Generic Name Dose Route Start Last Admin Trade Name Freq PRN Reason Stop Dose Admin Acetaminophen 500 mg 10/16/18 10:02 10/29/18 17:08 Tylenol PO 500 mg Q6H PRN Administration Fever >101 Albuterol 2.5 mg 10/10/18 18:12 Proventil IH Q3HRT PRN Shortness Of Breath Albuterol/Ipratropium 1 ampul 10/25/18 08:00 10/31/18 08:08 Duoneb *Not For Prn Use* IH 1 ampul TIDRT RUBI Administration Amlodipine Besylate 10 mg 10/11/18 10:00 10/30/18 09:30 Norvasc PO 10 mg QDAY RUBI Administration Lipase/Protease/Amylase 1 each 10/11/18 12:58 Pancrebecka Reed 10,500 Unit FEEDTUBE PRN PRN For Clogged Feeding Tube Arformoterol Tartrate 15 mcg 10/20/18 11:45 10/31/18 08:08 Blade Menendez IH Not Given Q12HRT RUBI Atovaquone 750 mg 10/18/18 10:00 10/30/18 21:40 Mepron PO 750 mg BID RUBI Administration Carvedilol 12.5 mg 10/22/18 22:00 10/30/18 21:39 Coreg PO 12.5 mg BID RUBI Administration Darunavir 800 mg 10/30/18 18:00 10/30/18 20:06 Prezista PO 800 mg QDAY RUBI Administration Emtricitabine 200 mg 11/01/18 10:00 Emtriva PO Q48HR RUBI Haloperidol Lactate 5 mg 10/13/18 19:45 10/20/18 21:08 Haldol IV 5 mg Q6H PRN Administration Agitation Hydralazine HCl 10 mg 10/12/18 15:50 10/28/18 22:36 Apresoline IV 10 mg Q4HR PRN Administration SBP>175 or DBP>115 Hydrophilic Ointment 1 applic 10/10/18 17:53 Vaseline Lip Therapy TP Q2HR PRN Dry Lips Ceftriaxone Sodium 2 gm in 100 mls @ 200 mls/hr 10/31/18 10:00 Rocephin/Ns 2 Gm/100 Ml IV Q24HR RUBI Protocol Sodium Chloride 100 mls @ 999 mls/hr 10/31/18 08:00 Nacl 0.9% IV CHON PRN Hypotension Lansoprazole 30 mg 10/15/18 10:00 10/30/18 21:39 Prevacid Solutab FEEDTUBE 30 mg BID RUBI Administration Lorazepam 1 mg 10/13/18 19:48 10/21/18 04:09 Ativan IV 1 mg Q4H PRN Administration agitation Metoprolol Tartrate 5 mg 10/18/18 14:05 Lopressor IV Q6HR PRN Tachyarrhythmias Multi-Ingred Cream/Lotion/Oil/Oint 1 applic 10/10/18 17:53 Artificial Tears Ophth Oint OU Q4HR PRN Dry Eye(s) Multivitamins 1 each 10/11/18 10:00 10/30/18 09:30 Theragran Tab PO 1 each DAILY RUBI Administration Ritonavir 100 mg 10/30/18 18:00 10/30/18 20:05 Norvir PO 100 mg QDAY RUBI Administration Simple Syrup 15 ml 10/11/18 12:58 Simple Syrup FEEDTUBE PRN PRN Hypoglycemia Simple Syrup 30 ml 10/11/18 12:58 Simple Syrup FEEDTUBE PRN PRN Hypoglycemia Sodium Bicarbonate 325 mg 10/11/18 12:58 Sodium Bicarbonate FEEDTUBE PRN PRN For Clogged Feeding Tube Sodium Chloride 10 ml 10/10/18 22:00 10/30/18 23:36 Sodium Chloride Flush Syringe 10 Ml IV 10 ml BID RUBI Administration Sodium Chloride 10 ml 10/10/18 18:12 Sodium Chloride Flush Syringe 10 Ml IV PRN PRN LINE FLUSH Tenofovir Disoproxil Fumarate 300 mg 10/30/18 17:45 10/30/18 20:09 Viread PO 300 mg Q96H RUBI Administration Nutrition/Malnutrition Assess - Dietary Evaluation Nutrition/Malnutrition Findings: Nutrition Notes Start: 10/11/18 11:14 Freq: Status: Active Protocol: Document 10/29/18 15:52 RM (Rec: 10/29/18 15:57 RM [id number]) Nutrition Notes Initial or Follow up Reassessment Current Diagnosis Acute Kidney Injury,CKD(stage I-IV),Hypertension,Stroke Other Pertinent Diagnosis Acute encephalopathy, HIV/AIDS , Syphilis Current Diet Pureed w/nectar thick liquids w/Nepro 1 daily Labs/Tests BUN 103 Pertinent Medications Reviewed Height 5 ft 9 in Weight 72 kg [place] Body Weight (kg) 72.72 BMI 23.4 Subjective/Other Information Pt confused at time of visit. Pt tech stated that pt ate half of his lunch and drank all of the Nepro. Percent of energy/protein needs met: 69%/88% Burn Absent Trauma Absent #1 Nutrition Diagnosis Inadequate oral intake As Evidenced by Signs and Symptoms pt meeting 69% of calorie and 88% of protein needs Diagnosis Progress(for reassessment Improved documentation) Is patient on ventilator? No Is Patient Ambulatory and/or Out of Bed No REE-([facility]-confined to bed) 4612.133 Calculation Used for Recommendations [facility] Additional Notes Pro needs 1-1.2g/k-78g/ day Fluid needs 1ml/kcal Nutrition Intervention Change Diet Order: Continue current Add Supplement/Snack (indicate name/kcal Nepro 1 daily /protein ) Provides kCal: 425 Provides Protein (gm) 19 Goal #1 Meet at least 75% of calorie and protein needs via PO and ONS intakes Anticipated Discharge Needs: Pureed diet Follow-Up By: 11/01/18 Additional Comments Follow for PO and ONS intakes
--- NOTE | 2018-10-31 12:42 | Progress Note ---
Assessment and Plan - Patient Problems (1) Acute kidney injury Current Visit: Yes Status: Acute Plan to address problem: Acute kidney injury : severe I reviewed renal Ultrasound with 10.1cm and 10.8cm kidneys bilateral echogenic Possible aetiologies of Acute kidney injury is likely 2/2 acute tubular injury ,possible underlying HIV associated nephropathy cannot be excluded . He is currently oliguric currently dialysis dependent. Currently has a Mahurkar We'll need tunneled dialysis catheter placement unfortunately still febrile Once febrile episodes resolve Discussed with vascular surgery may need Mahurkar replaced if febrile episodes persist appreciate Vascular surgery assistance. Avoid Nephrotoxic medications. 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 (2) Anemia Current Visit: Yes Status: Acute Qualifiers: Qualified Code(s): N18.9 - Chronic kidney disease, unspecified; D63.1 - Anemia in chronic kidney disease Plan to address problem: Moderate anemia 2/2 CKD and ongoing inflammation Hb: 8.9g/dl Monitor CBC. (3) Hyperkalemia, diminished renal excretion Current Visit: Yes Status: Acute Plan to address problem: Hyperkalemia setting of renal failure potassium is 6.1 We'll repeat hemodialysis 2k/2.5ca/35hco3 bath 4hours. (4) Metabolic acidosis Current Visit: Yes Status: Acute Plan to address problem: Metabolic acidosis secondary to renal failure high anion gap acidosis Will check phosphorus levels as well. We'll continue dialysis Subjective Principal diagnosis: anemia - HIV Interval history: 43 year old gentleman with medical history significant for HIV admitted with Sepsis , acute hypoxemic respiratory failure , Encephalopathy , transaminitis and worsening renal failure . Patient seen this morning Has hyperkalemia again still having some diarrhea as well as some febrile spikes Case discussed with vascular surgery He has had breakfast. Objective - Vital Signs Vital signs: Vital Signs - 12hr 10/31/18 10/31/18 10/31/18 08:08 08:18 09:36 Temperature Pulse Rate Pulse Rate [ 102 H 104 H Bilateral Throughout] Respiratory Rate Respiratory 20 20 Rate [Bilateral Throughout] Blood Pressure O2 Sat by Pulse 98 Oximetry 10/31/18 10/31/18 10/31/18 10:20 10:30 10:45 Temperature 100.2 F H Pulse Rate 121 H 121 H 124 H Pulse Rate [ Bilateral Throughout] Respiratory 20 Rate Respiratory Rate [Bilateral Throughout] Blood Pressure 119/40 126/70 119/73 O2 Sat by Pulse Oximetry 10/31/18 10/31/18 10/31/18 11:00 11:15 11:30 Temperature Pulse Rate 120 H 126 H 128 H Pulse Rate [ Bilateral Throughout] Respiratory Rate Respiratory Rate [Bilateral Throughout] Blood Pressure 119/68 109/71 103/69 O2 Sat by Pulse Oximetry 10/31/18 10/31/18 10/31/18 11:45 12:00 12:15 Temperature Pulse Rate 129 H 125 H 66 Pulse Rate [ Bilateral Throughout] Respiratory Rate Respiratory Rate [Bilateral Throughout] Blood Pressure 103/65 108/74 111/68 O2 Sat by Pulse Oximetry - General Appearance General appearance: cachectic, chronically ill, frail EENT: ATNC, PERRL, mucous membranes dry Neck: no JVD Respiratory: Present: Decreased Breath Sounds Cardiology: regular, tachycardia, S1S2 Gastrointestinal: normal, normoactive bowel sounds Integumentary: no rash, warm and dry Neurologic: confused, CN 3-12 intact Musculoskeletal: deferred Psychiatric: mood/affect appropriate, depressed - Lab 10/29/18 09:27 10/31/18 06:43 Most recent lab results Calcium 8.3 mg/dL (8.4-10.2) L 10/31/18 06:43 Phosphorus 8.30 mg/dL (2.5-4.5) H 10/25/18 10:00 Magnesium 3.10 mg/dL (1.7-2.3) H 10/18/18 05:03 Urine Creatinine 30.8 mg/dL (0.1-20.0) H 10/13/18 04:43 Urine Sodium 106 mmol/L 10/13/18 04:43 Urine Total Protein 75 mg/dL (5-11.8) H 10/13/18 04:43 - Imaging Chest x-ray: other (I reviewed CXR with patchy opacities. ) Medications & Allergies - Medications Allergies/Adverse Reactions: Allergies Sulfa (Sulfonamide Antibiotics) Allergy (Verified 10/10/18 16:54) Unknown Home Medications: Home Medications Medication Instructions Recorded Confirmed Last Taken Type Acetaminophen [Tylenol] 1,000 mg PO Q6HR 10/10/18 10/10/18 Unknown History Amlodipine Besylate [Norvasc] 10 mg PO QDAY 10/10/18 10/10/18 Unknown History Aspirin [Adult Aspirin] 81 mg PO DAILY 10/10/18 10/10/18 Unknown History Atorvastatin [Lipitor Tab] 80 mg PO DAILY 10/10/18 10/10/18 Unknown History Losartan [Cozaar] 100 mg PO QDAY 10/10/18 10/10/18 Unknown History Multivitamin [Multiple Vitamins] 1 each PO DAILY 10/10/18 10/10/18 Unknown History hydroCHLOROthiazide [HCTZ] 25 mg PO QDAY 10/10/18 10/10/18 Unknown History Active Medications: Generic Name Dose Route Start Last Admin Trade Name Freq PRN Reason Stop Dose Admin Acetaminophen 500 mg 10/16/18 10:02 10/29/18 17:08 Tylenol PO 500 mg Q6H PRN Administration Fever >101 Albuterol 2.5 mg 10/10/18 18:12 Proventil IH Q3HRT PRN Shortness Of Breath Albuterol/Ipratropium 1 ampul 10/25/18 08:00 10/31/18 08:08 Duoneb *Not For Prn Use* IH 1 ampul TIDRT RUBI Administration Amlodipine Besylate 10 mg 10/11/18 10:00 10/30/18 09:30 Norvasc PO 10 mg QDAY RUBI Administration Lipase/Protease/Amylase 1 each 10/11/18 12:58 Pancrebecka Reed 10,500 Unit FEEDTUBE PRN PRN For Clogged Feeding Tube Arformoterol Tartrate 15 mcg 10/20/18 11:45 10/31/18 08:08 Blade Menendez IH Not Given Q12HRT RUBI Atovaquone 750 mg 10/18/18 10:00 10/30/18 21:40 Mepron PO 750 mg BID RUBI Administration Carvedilol 12.5 mg 10/22/18 22:00 10/30/18 21:39 Coreg PO 12.5 mg BID RUBI Administration Darunavir 800 mg 10/30/18 18:00 10/30/18 20:06 Prezista PO 800 mg QDAY RUBI Administration Emtricitabine 200 mg 11/01/18 10:00 Emtriva PO Q48HR [facility] Haloperidol Lactate 5 mg 10/13/18 19:45 10/20/18 21:08 Haldol IV 5 mg Q6H PRN Administration Agitation Hydralazine HCl 10 mg 10/12/18 15:50 10/28/18 22:36 Apresoline IV 10 mg Q4HR PRN Administration SBP>175 or DBP>115 Hydrophilic Ointment 1 applic 10/10/18 17:53 Vaseline Lip Therapy TP Q2HR PRN Dry Lips Ceftriaxone Sodium 2 gm in 100 mls @ 200 mls/hr 10/31/18 10:00 Rocephin/Ns 2 Gm/100 Ml IV Q24HR RUBI Protocol Sodium Chloride 100 mls @ 999 mls/hr 10/31/18 08:00 Nacl 0.9% IV CHON PRN Hypotension Lansoprazole 30 mg 10/15/18 10:00 10/30/18 21:39 Prevacid Solutab FEEDTUBE 30 mg BID RUBI Administration Lorazepam 1 mg 10/13/18 19:48 10/21/18 04:09 Ativan IV 1 mg Q4H PRN Administration agitation Metoprolol Tartrate 5 mg 10/18/18 14:05 Lopressor IV Q6HR PRN Tachyarrhythmias Multi-Ingred Cream/Lotion/Oil/Oint 1 applic 10/10/18 17:53 Artificial Tears Ophth Oint OU Q4HR PRN Dry Eye(s) Multivitamins 1 each 10/11/18 10:00 10/30/18 09:30 Theragran Tab PO 1 each DAILY RUBI Administration Ritonavir 100 mg 10/30/18 18:00 10/30/18 20:05 Norvir PO 100 mg QDAY RUBI Administration Simple Syrup 15 ml 10/11/18 12:58 Simple Syrup FEEDTUBE PRN PRN Hypoglycemia Simple Syrup 30 ml 10/11/18 12:58 Simple Syrup FEEDTUBE PRN PRN Hypoglycemia Sodium Bicarbonate 325 mg 10/11/18 12:58 Sodium Bicarbonate FEEDTUBE PRN PRN For Clogged Feeding Tube Sodium Chloride 10 ml 10/10/18 22:00 10/30/18 23:36 Sodium Chloride Flush Syringe 10 Ml IV 10 ml BID RUBI Administration Sodium Chloride 10 ml 10/10/18 18:12 Sodium Chloride Flush Syringe 10 Ml IV PRN PRN LINE FLUSH Tenofovir Disoproxil Fumarate 300 mg 10/30/18 17:45 10/30/18 20:09 Viread PO 300 mg Q96H RUBI Administration
--- NOTE | 2018-10-31 12:44 | Progress Note ---
Assessment and Plan Cultures: Blood culture 10/10/2018 no growth. Sputum culture 10/10/2018 Ana Paula albicans. Crypto Ag 10/10/2018 neg. Urine culture 10/13/2018 no growth. Blood culture 10/17/2018 no growth. Blood culture 10/20/2018: no growth Stool Occult Blood 10/23/18: positive Blood culture 10/29/18: negative Assessment: 43 y/o male with history of HIV (unknown CD4/VL/ART intake), HTN, CVA 6 months ago at [facility], Nicotine Dependence, Malnutrition; admitted on 10/10/2018 due to AMS (confusion/lethargy) and slurred speech for 24 h: 1) SIRS versus sepsis: Low grade fevers continue. ?drug fever, ?right groin HD catheter related fevers although multiple blood cultures have remained negative. Started HIV treatment on 10/30/2018. - CXR neg - BNP 70K - Troponin 0.2 - LDH 2242 2) Acute hypoxemic respiratory failure: for airway protection +/- ? pneumonia. Repeat CXR no consolidations. Ana Paula in tracha sp likely a colonizer. Extubated 10/15. Continues on atovaquone as prophylaxis. Patient has sulfa allergy. 3) Acute encephalopathy: Improved.; multifactorial ?from hypertensive urgency + /- brain opportunistic infection. DDx: Neurosyphilis, VZV/CMV encephalitis versus MARKETING ASSISTANT lymphoma versus less likely PML v/s ischemic CVA (seems more likely) - CT head showed bilateral chronic ischemic changes. - Brain MRI showed areas of edema in the basal ganglia and thalami bilaterally, within the jamari and in the cerebral hemispheres bilaterally in the subcortical and deep white matter and in portions of the cortex, areas of encephalomalacia in the basal ganglia bilaterally with evidence of previous hemorrhage or mineral deposition and numerous small foci of acute infarct in the basal ganglia bilaterally, subinsular regions bilaterally and medial temporal lobes bilaterally and possibly in the occipital cortex bilaterally. - Brain MRA showed possible dissection versus artifact at the basilar artery. Luminal irregularity at the anterior, middle, and posterior cerebral arteries as well as the carotid siphons may represent mild to moderate atherosclerotic disease. More notable narrowing at the distal right A1 segment. Differential diagnosis includes motion artifact and vasculitis. Vertebral arteries are not clearly visualized. - CSF wbc 4, rbc 113, Seg 8%, Lymph 76%, protein 55, glucose 73 which is not c/w meningitis - RPR reactive 1:32 / FTA ABs reactive, treated with penicillin and ceftriaxone but CSF VDRL Non reactive. - Toxoplasma IgG negative, CSF Toxoplasma PCR: negative - Blood CMV DNA VL=1,370, 3.1 log on ganciclovir - likely reactivation - Repeat CMV DNA PCR 10/24/2018: <200. Off ganciclovir. 4) Anemia/thrombocytopenia: improving. 5) Acute on CKD or SHRUTHI ? unclear etiology: on HD. 6) DM: uncontrolled. 7) HIV/AIDS: VL 320,000 / CD4=3 on 10/11/2018. Continue HIV therapy (started on 10/30/2018): renally adjusted TDF, FTC along with dolutegravir and ritonavir boosted darunavir. Follow up Genotype and if no resistance mutations, possibly d/c both TDF and FTC and continue nuc-sparing regimen of dolutegravir along with ritonavir boosted darunavir. Recommendations: -continue atovaquone 750 mg BID -continue HIV therapy: renally adjusted TDF, FTC along with dolutegravir and ritonavir boosted darunavir -follow up HIV Genotype -will d/c Ceftriaxone having completed 11 days, ?drug fever, ?right groin HD catheter related fevers although multiple blood cultures have remained negative -f/u 1,3 [id number] Francesco Arreguin MD Infectious Disease Nutrition Specialist Subjective Date of service: 10/31/18 Principal diagnosis: anemia - HIV Interval history: Low grade fevers continue. Seen at dialysis. Has right groin HD cath. No cough or SOB. Objective - Exam Narrative Exam: General: Awake, alert, no distress. Eyes: anicteric sclerae, moist conjunctivae; no lid-lag; PERRLA HENT: Atraumatic; oropharynx limited Neck: Trachea midline; supple, no thyromegaly or lymphadenopathy Resp: CTA, with normal respiratory effort, on 09/17L CV: tachycardic, S1, S2 normal. Abdomen: Soft, non-tender; bowel sounds + Extremities: No peripheral edema or extremity lymphadenopathy. Right groin HD cath + Skin: Normal temperature, turgor and texture; no rash, ulcers or subcutaneous nodules Psych: affect: Flat Neuro: Awake, generalized weakness, answers basic questions. - Constitutional Vitals: Vital Signs Temp Pulse Resp BP Pulse Ox 100.2 F H 66 20 111/68 98 10/31/18 10:20 10/31/18 12:15 10/31/18 10:20 10/31/18 12:15 10/31/18 09:36 Temperature -Last 24 Hours Temperature 100.2 F Temperature 98.7 F Temperature 97.1 F - Labs CBC & Chem 7: 10/29/18 09:27 10/31/18 06:43 Labs: Abnormal lab results 10/31/18 Range/Units 06:43 Potassium 6.1 H* (3.6-5.0) mmol/L Chloride 90.9 L (98-107) mmol/L Carbon Dioxide 17 L (22-30) mmol/L BUN 110 H (9-20) mg/dL Creatinine 13.5 H (0.8-1.5) mg/dL Glucose 104 H (75-100) mg/dL Calcium 8.3 L (8.4-10.2) mg/dL
--- NOTE | 2018-10-31 17:14 | Event Note ---
Date: 10/31/18 Asked to Eval the pt. Pt not seen as he was off the floor at the time. Discussed with nephrology. Pt s/p R femoral Vas Cath on 10/12/18. He continues to require HD at this point. Would like to convert to upper body PC, but he remains febrile. He is also having persistent diarrhea. This is certainly problematic with a groin catheter. Will make the Pt NPO after Mn for possible upper body VC vs PC (though febrile he is not bacteremic thus far).
[2018-11-01 06:50] LABS: Calcium 8.7 mg/dL (8.4-10.2)
--- NOTE | 2018-11-01 07:10 | Hem/Onc Progress Note ---
Assessment and Plan 1. Anemia. At admission, hemoglobin was 8.1, later low and s/p Transfusion support. 2. Platelets at admission was 20. 3. White cell count was elevated. 4. PT/INR h/o slightly elevated. 5. Renal failure. 6. ALT elevated. 7. The patient has multiple medical issues. PLAN: I will ask for a smear evaluation. I will call the lab for same. Supportive care in the interim while we looked for primary etiology. 3/ - plt better - s/p transfusion d/w dr rain and dr carrillo 10/14 - low plt - rasta ctive bleed suprapubic catheter 10/15 - plt were rising and again going down' pt had got plt transfusion LDH high - [id number] ordered smear - ordererd LDH may be high in other causes too - renal etc 10/16 - d/w path - not many schistocytes on smear - ADAMTS 13 ordered extubated 10/17 - plt low - path review ordered d/w armin monsalve 10/18 - path report pending plt low - but no active bleeding 10/19 - pt more alert - follows commands no bleeding 10/20 pt SOB - d/w Dr Monsalve and RN plt low - but no bleeding NGT+ more awake 10/21 - pt in [facility] plt >100 - more awake 10/22 - clinically better - moves all 4 limbs 10/23 - clinically stable - prbc suport 10/24 - as per RN -pt passed barium - for thickened diet pt has suprapubic got PRBC plt improving 10/25 - clinically better no active bleeding 10/26 - moving all extremity -communicating repeat cbc 10/27 - labs better - clinically improving 10/28 - plt now normal - hb better - s/p PRBC recent CKD may have a role 10/29 - pt clinically stable - composite technician abn - electrolyte abn 10/30 - cbc improving - pt had question reg rectal tube - he will d/w other MDs 10/31 - plt better - hb better - OP follow up an option 11/01 - labs follow up - Patient Problems (1) Thrombocytopenia associated with AIDS Current Visit: Yes Status: Acute (2) Anemia Current Visit: Yes Status: Acute Qualifiers: Anemia type: due to chronic kidney disease Chronic kidney disease stage: unspecified stage Qualified Code(s): N18.9 - Chronic kidney disease, unspecified; D63.1 - Anemia in chronic kidney disease Subjective Date of service: 11/01/18 Principal diagnosis: anemia Interval history: no bleeding Objective - Constitutional Vitals: Last Vital Signs Temp 98.4 F 11/01/18 04:05 Pulse 129 H 11/01/18 04:05 Resp 18 11/01/18 04:05 BP 109/68 11/01/18 04:05 Pulse Ox 97 11/01/18 04:05 Pain Intensity (0-10): denies any pain General appearance: no acute distress Performance status: 4-completely disabled - EENT Eyes: EOM intact ENT: clear oral mucosa Lymph node exam: negative cervical - Neck Neck: normal ROM - Respiratory Respiratory effort: Positive: normal Respiratory: bilateral: diminished (poor effort) - Cardiovascular Heart Sounds: Present: S1 & S2 Extremities: No edema - Gastrointestinal General gastrointestinal: Present: soft Rectal Exam: deferred - Genitourinary Male genitourinary: Present: deferred - Integumentary Integumentary: warm - Musculoskeletal Musculoskeletal: generalized weakness - Neurologic Neurologic: moves all extremities - Labs Lab Results: Laboratory Results - last 24 hr 10/31/18 11/01/18 06:43 05:45 Sodium 139 138 Potassium 6.1 H* 5.4 H Chloride 90.9 L 91.8 L Carbon Dioxide 17 L 19 L Anion Gap 37 33 BUN 110 H 100 H Creatinine 13.5 H 11.4 H Estimated GFR 5 6 BUN/Creatinine Ratio 8 9 Glucose 104 H 121 H Calcium 8.3 L 8.7 Medications & Allergies - Medications Allergies/Adverse Reactions: Allergies Sulfa (Sulfonamide Antibiotics) Allergy (Verified 10/10/18 16:54) Unknown Home Medications: Home Medications Medication Instructions Recorded Confirmed Last Taken Type Acetaminophen [Tylenol] 1,000 mg PO Q6HR 10/10/18 10/10/18 Unknown History Amlodipine Besylate [Norvasc] 10 mg PO QDAY 10/10/18 10/10/18 Unknown History Aspirin [Adult Aspirin] 81 mg PO DAILY 10/10/18 10/10/18 Unknown History Atorvastatin [Lipitor Tab] 80 mg PO DAILY 10/10/18 10/10/18 Unknown History Losartan [Cozaar] 100 mg PO QDAY 10/10/18 10/10/18 Unknown History Multivitamin [Multiple Vitamins] 1 each PO DAILY 10/10/18 10/10/18 Unknown History hydroCHLOROthiazide [HCTZ] 25 mg PO QDAY 10/10/18 10/10/18 Unknown History Active Medications: Generic Name Dose Route Start Last Admin Trade Name Freq PRN Reason Stop Dose Admin Acetaminophen 500 mg 10/16/18 10:02 10/29/18 17:08 Tylenol PO 500 mg Q6H PRN Administration Fever >101 Albuterol 2.5 mg 10/10/18 18:12 Proventil IH Q3HRT PRN Shortness Of Breath Albuterol/Ipratropium 1 ampul 10/25/18 08:00 10/31/18 21:10 Duoneb *Not For Prn Use* IH Not Given TIDRT RUBI Amlodipine Besylate 10 mg 10/11/18 10:00 10/31/18 10:00 Norvasc PO Not Given QDAY RUBI Lipase/Protease/Amylase 1 each 10/11/18 12:58 Pancreaze 10,500 Unit FEEDTUBE PRN PRN For Clogged Feeding Tube Arformoterol Tartrate 15 mcg 10/20/18 11:45 10/31/18 21:06 Brovana Jose Raulu IH Not Given Q12HRT RUBI Atovaquone 750 mg 10/18/18 10:00 10/31/18 23:23 Mepron PO 750 mg BID RUBI Administration Carvedilol 12.5 mg 10/22/18 22:00 10/31/18 23:22 Coreg PO 12.5 mg BID RUBI Administration Darunavir 800 mg 10/30/18 18:00 10/31/18 10:00 Prezista PO Not Given QDAY [facility] Emtricitabine 200 mg 11/01/18 10:00 Emtriva PO Q48HR RUBI Haloperidol Lactate 5 mg 10/13/18 19:45 10/20/18 21:08 Haldol IV 5 mg Q6H PRN Administration Agitation Hydralazine HCl 10 mg 10/12/18 15:50 10/28/18 22:36 Apresoline IV 10 mg Q4HR PRN Administration SBP>175 or DBP>115 Hydrophilic Ointment 1 applic 10/10/18 17:53 Vaseline Lip Therapy TP Q2HR PRN Dry Lips Sodium Chloride 100 mls @ 999 mls/hr 10/31/18 08:00 Nacl 0.9% IV CHON PRN Hypotension Lansoprazole 30 mg 10/15/18 10:00 10/31/18 23:23 Prevacid Solutab FEEDTUBE 30 mg BID RUBI Administration Lorazepam 1 mg 10/13/18 19:48 10/21/18 04:09 Ativan IV 1 mg Q4H PRN Administration agitation Metoprolol Tartrate 5 mg 10/18/18 14:05 Lopressor IV Q6HR PRN Tachyarrhythmias Multi-Ingred Cream/Lotion/Oil/Oint 1 applic 10/10/18 17:53 Artificial Tears Ophth Oint OU Q4HR PRN Dry Eye(s) Multivitamins 1 each 10/11/18 10:00 10/31/18 10:00 Theragran Tab PO Not Given DAILY RUBI Ritonavir 100 mg 10/30/18 18:00 10/31/18 10:00 Norvir PO Not Given QDAY RUBI Simple Syrup 15 ml 10/11/18 12:58 Simple Syrup FEEDTUBE PRN PRN Hypoglycemia Simple Syrup 30 ml 10/11/18 12:58 Simple Syrup FEEDTUBE PRN PRN Hypoglycemia Sodium Bicarbonate 325 mg 10/11/18 12:58 Sodium Bicarbonate FEEDTUBE PRN PRN For Clogged Feeding Tube Sodium Chloride 10 ml 10/10/18 22:00 10/31/18 23:23 Sodium Chloride Flush Syringe 10 Ml IV 10 ml BID RUBI Administration Sodium Chloride 10 ml 10/10/18 18:12 Sodium Chloride Flush Syringe 10 Ml IV PRN PRN LINE FLUSH Tenofovir Disoproxil Fumarate 300 mg 10/30/18 17:45 10/30/18 20:09 Viread PO 300 mg Q96H RUBI Administration
[2018-11-01] MEDS: DUONEB *Not for PRN Use IH SCH ×3 (07:52→19:58)
[2018-11-01] MEDS: BROVANA NEBU IH SCH ×2 (09:04→19:57)
--- NOTE | 2018-11-01 09:45 | Progress Note ---
Assessment and Plan Assessment and plan: patient is 43 YO Male with HIV, hypertension, previous stroke, Nicotine Dependence, presents to ED for evaluation. Patient was confused and lethargic and unable to provide history. He was seen and evaluated in ED and found to be in distress and unable to protect his airway and was therefore intubated, placed on ventilator in ER then admitted MR brain 10/11 1. Study somewhat degraded by motion artifact. 2 Areas of edema in the basal ganglia and thalami bilaterally, within the jamari and in the cerebral hemispheres bilaterally in the subcortical and deep white matter and in portions of the cortex. 3. Areas of encephalomalacia in the basal ganglia bilaterally with evidence of previous hemorrhage or mineral deposition. 4. Numerous small foci of acute infarct in the basal ganglia bilaterally, subinsular regions bilaterally and medial temporal lobes bilaterally and possibly in the occipital cortex bilaterally. The above findings may be secondary to an infectious or noninfectious etiology with a component of vasculopathy or vasculitis resulting in infarcts. Viral encephalopathies and lymphoma would need to be considered in this patient with history of HIV. Neuro ams acute metabolic encephalopathy improving /Acute CVA with Bilateral infarcts with edema Consulted Neurology, he was evaluated by DR. Valentine. Could be due to possible vasculitis - further workup pending Dysphagia/ moderate malnutrition -MBS 10/23, recommended pureed with nectar thickened liquids Hematology Anemia- stable, thrombocytopenia, leukocytosis, coagulopathy; now resolved -Status post platelet and prbc transfusion, the patient had only few schistocytes on smear, ADAMS13 91% activity ID HIV/AIDS, CD4 count 3, HIV viral load 320,000 acute bacterial PNA, CMV viremia toxo neg, CSF neg Whole blood cmv PCR was positive at 1374 abx and antiviral per ID high fever, cxr shows improvement of vasc congestion, fup blood cx, femoral vas cath to be removed after HD yesterday, as it may be source of infection; will need IJ vas cath before next HD FEN/Renal SHRUTHI- ATN, Hyperkalemia, urinary retention sp SPC on 10/12 cont HD per nephrology, no signs of renal recovery Pulm acute hypoxic resp failure on MV> 96 hours self extubated 10/16, continue supplemental oxygen CVS /Hypertensive urgency and acute systolic CHF He was treated with Cardene drip which was weaned off. Optimize medications for CHF on coreg, no mik due to high K, fluid removal by dialysis Skin Stage 2 sacral wound decub . The wound was measured at 5.0x4.0. Small serous sanguineous drainage noticed from the wound. no evidence of infection, cont wound care DVT ppx- scds, given that he pw thrombocytopenia History Interval history: Patient continues to have weakness of his voice, fevers now resolved Review of systems Constitutional: , no malaise, no joint pains CVS: No chest pain, no orthopnea, no dyspnea on exertion, no pedal edema GI: No abdominal pain, no diarrhea, no vomiting, no constipation Respiratory: No shortness of breath, no wheezing, no coughing Hospitalist Physical - Physical exam Narrative exam: General.: Appears well, no distress, nontoxic HEENT: Moist mucous membranes, extraocular muscles intact, no lymphadenopathy Neck: supple Cardiac: S1-S2 heard Lungs: clear to auscultation bilaterally Abdomen: soft , nontender, nondistended, bowel sounds positive Extremities: no edema clubbing or cyanosis Skin: no rash or lesions Neurologic: no gross focal deficits Psych: calm, and cooperative - Constitutional Vitals: Temp Pulse Resp BP Pulse Ox 98.4 F 120 H 20 109/68 97 11/01/18 04:05 11/01/18 08:03 11/01/18 08:03 11/01/18 04:05 11/01/18 08:46 General appearance: Present: no acute distress Results - Labs CBC & Chem 7: 11/02/18 00:40 11/02/18 05:01 Labs: Laboratory Last Values WBC 5.3 K/mm3 (4.5-11.0) 10/29/18 09:27 RBC 3.34 M/mm3 (3.65-5.03) L 10/29/18 09:27 Hgb 9.9 gm/dl (11.8-15.2) L 10/29/18 09:27 Hct 31.1 % (35.5-45.6) L 10/29/18 09:27 MCV 93 fl (84-94) 10/29/18 09:27 MCH 30 pg (28-32) 10/29/18 09:27 MCHC 32 % (32-34) 10/29/18 09:27 RDW 20.2 % (13.2-15.2) H 10/29/18 09:27 Plt Count 162 K/mm3 (140-440) 10/29/18 09:27 Add Manual Diff Complete 10/29/18 09:27 Total Counted 100 10/29/18 09:27 Seg Neuts % (Manual) 78.0 % (40.0-70.0) H 10/29/18 09:27 Band Neutrophils % 1.0 % 10/29/18 09:27 Lymphocytes % (Manual) 11.0 % (13.4-35.0) L 10/29/18 09:27 Reactive Lymphs % (Man) 0 % 10/29/18 09:27 Monocytes % (Manual) 10.0 % (0.0-7.3) H 10/29/18 09:27 Eosinophils % (Manual) 0 % (0.0-4.3) 10/29/18 09:27 Basophils % (Manual) 0 % (0.0-1.8) 10/29/18 09:27 Metamyelocytes % 0 % 10/29/18 09:27 Myelocytes % 0 % 10/29/18 09:27 Promyelocytes % 0 % 10/29/18 09:27 Blast Cells % 0 % 10/29/18 09:27 Nucleated RBC % 54.0 % (0.0-0.9) H 10/29/18 09:27 Seg Neutrophils # Man 0.0 K/mm3 (1.8-7.7) L 10/29/18 09:27 Band Neutrophils # 0.0 K/mm3 10/29/18 09:27 Abs Lymphs (Manual) 267 cells/uL (850-3900) L 10/11/18 17:36 Lymphocytes # (Manual) 0.0 K/mm3 (1.2-5.4) L 10/29/18 09:27 Abs React Lymphs (Man) 0.0 K/mm3 10/29/18 09:27 Monocytes # (Manual) 0.0 K/mm3 (0.0-0.8) 10/29/18 09:27 Eosinophils # (Manual) 0.0 K/mm3 (0.0-0.4) 10/29/18 09:27 Basophils # (Manual) 0.0 K/mm3 (0.0-0.1) 10/29/18 09:27 Metamyelocytes # 0.0 K/mm3 10/29/18 09:27 Myelocytes # 0.0 K/mm3 10/29/18 09:27 Promyelocytes # 0.0 K/mm3 10/29/18 09:27 Blast Cells # 0.0 K/mm3 10/29/18 09:27 Pathologist Review 10/15/18 03:14 WBC Morphology Not Reportable 10/29/18 09:27 Hypersegmented Neuts Not Reportable 10/29/18 09:27 Hyposegmented Neuts Not Reportable 10/29/18 09:27 Hypogranular Neuts Not Reportable 10/29/18 09:27 Smudge Cells Not Reportable 10/29/18 09:27 Toxic Granulation Not Reportable 10/29/18 09:27 Toxic Vacuolation Not Reportable 10/29/18 09:27 Dohle Bodies Not Reportable 10/29/18 09:27 Pelger-Huet Anomaly Not Reportable 10/29/18 09:27 Kartik Rods Not Reportable 10/29/18 09:27 Platelet Estimate Consistent w auto 10/29/18 09:27 Clumped Platelets Rare 10/29/18 09:27 Plt Clumps, EDTA Not Reportable 10/29/18 09:27 Large Platelets Not Reportable 10/29/18 09:27 Giant Platelets Not Reportable 10/29/18 09:27 Platelet Satelliting Not Reportable 10/29/18 09:27 Plt Morphology Comment Not Reportable 10/29/18 09:27 RBC Morphology Not Reportable 10/29/18 09:27 Dimorphic RBCs Not Reportable 10/29/18 09:27 Polychromasia Not Reportable 10/29/18 09:27 Hypochromasia Not Reportable 10/29/18 09:27 Poikilocytosis Not Reportable 10/29/18 09:27 Anisocytosis 1+ 10/29/18 09:27 Microcytosis 1+ 10/29/18 09:27 Macrocytosis 1+ 10/29/18 09:27 Spherocytes Not Reportable 10/29/18 09:27 Pappenheimer Bodies Not Reportable 10/29/18 09:27 Sickle Cells Not Reportable 10/29/18 09:27 Target Cells Not Reportable 10/29/18 09:27 Tear Drop Cells Not Reportable 10/29/18 09:27 Ovalocytes Not Reportable 10/29/18 09:27 Helmet Cells Not Reportable 10/29/18 09:27 Smith-Killona Bodies Not Reportable 10/29/18 09:27 Congers Rings Not Reportable 10/29/18 09:27 Randlett Cells Not Reportable 10/29/18 09:27 Bite Cells Not Reportable 10/29/18 09:27 Crenated Cell Not Reportable 10/29/18 09:27 Elliptocytes Not Reportable 10/29/18 09:27 Acanthocytes (Spur) Not Reportable 10/29/18 09:27 Rouleaux Not Reportable 10/29/18 09:27 Hemoglobin C Crystals Not Reportable 10/29/18 09:27 Schistocytes Not Reportable 10/29/18 09:27 Malaria parasites Not Reportable 10/29/18 09:27 Jv Bodies Not Reportable 10/29/18 09:27 Hem Pathologist Commnt No 10/29/18 09:27 PT 14.5 Sec. (12.2-14.9) 10/15/18 00:59 INR 1.06 (0.87-1.13) 10/15/18 00:59 APTT 27.9 Sec. (24.2-36.6) 10/10/18 15:02 Thrombin Time 16.9 Sec. (15.1-19.6) 10/10/18 15:02 Heparin Anti-Xa, Unfract Negative (Negative) 10/25/18 05:59 POC ABG pH 7.535 (7.35-7.45) H 10/21/18 09:49 POC ABG pCO2 32.0 (35-45) L 10/21/18 09:49 POC ABG pO2 57 (80-105) L 10/21/18 09:49 POC ABG HCO3 27.1 10/21/18 09:49 POC ABG Total CO2 28 10/21/18 09:49 POC ABG O2 Sat 93 10/21/18 09:49 POC ABG Base Excess 4 10/21/18 09:49 FiO2 21 % 10/21/18 09:49 Sodium 138 mmol/L (137-145) 11/01/18 05:45 Potassium 5.4 mmol/L (3.6-5.0) H 11/01/18 05:45 Chloride 91.8 mmol/L (98-107) L 11/01/18 05:45 Carbon Dioxide 19 mmol/L (22-30) L 11/01/18 05:45 Anion Gap 33 mmol/L 11/01/18 05:45 BUN 100 mg/dL (9-20) H 11/01/18 05:45 Creatinine 11.4 mg/dL (0.8-1.5) H 11/01/18 05:45 Estimated GFR 6 ml/min 11/01/18 05:45 BUN/Creatinine Ratio 9 % 11/01/18 05:45 Glucose 121 mg/dL (75-100) H 11/01/18 05:45 POC Glucose 139 (70-105) H 10/20/18 13:07 Osmolality 338 Mosm/kg 10/11/18 17:35 Lactic Acid 1.80 mmol/L (0.7-2.0) 10/12/18 05:59 Uric Acid 13.4 mg/dL (3.5-7.6) H 10/11/18 17:36 Calcium 8.7 mg/dL (8.4-10.2) 11/01/18 05:45 Phosphorus 8.30 mg/dL (2.5-4.5) H 10/25/18 10:00 Magnesium 3.10 mg/dL (1.7-2.3) H 10/18/18 05:03 Iron 147 ug/dL (49-181) 10/11/18 17:36 TIBC 236 mcg/dL (250-450) L 10/11/18 17:36 Ferritin 19958.0 ng/mL (13.0-400.0) H 10/11/18 17:35 Total Bilirubin 0.40 mg/dL (0.1-1.2) 10/25/18 10:00 Direct Bilirubin 0.2 mg/dL (0-0.2) 10/16/18 04:07 Indirect Bilirubin 0.3 mg/dL 10/16/18 04:07 AST 46 units/L (5-40) H 10/25/18 10:00 ALT 21 units/L (7-56) 10/25/18 10:00 Alkaline Phosphatase 102 units/L (35-129) 10/25/18 10:00 Ammonia 25.0 umol/L (25-60) 10/17/18 14:59 Lactate Dehydrogenase 925 units/L (91-180) H 10/22/18 05:51 Troponin T 0.272 ng/mL (0.00-0.029) H* 10/10/18 18:07 NT-Pro-B Natriuret Pep 71636 pg/mL (0-450) H 10/10/18 15:42 Total Protein 8.1 g/dL (6.3-8.2) 10/25/18 10:00 Albumin 3.5 g/dL (3.9-5) L 10/25/18 10:00 Albumin/Globulin Ratio 0.8 % 10/25/18 10:00 Triglycerides 329 mg/dL (2-149) H 10/10/18 15:02 Cholesterol 234 mg/dL (50-199) H 10/10/18 15:02 LDL Cholesterol Direct 139 mg/dL (50-130) H 10/10/18 15:02 HDL Cholesterol 42 mg/dL (40-59) 10/10/18 15:02 Cholesterol/HDL Ratio 5.57 % 10/10/18 15:02 Serotonin Release Assay See scanned result 10/25/18 05:59 Vitamin B12 912.3 pg/mL (211-911) H 10/14/18 08:51 Folate 8.32 ng/mL (7.3-26.0) 10/14/18 08:51 PTH Intact 388.7 pg/mL (15-65) H 10/25/18 10:00 Urine Creatinine 30.8 mg/dL (0.1-20.0) H 10/13/18 04:43 Urine Sodium 106 mmol/L 10/13/18 04:43 Urine Total Protein 75 mg/dL (5-11.8) H 10/13/18 04:43 CSF Appearance Clear 10/16/18 15:00 CSF Color Colorless 10/16/18 15:00 CSF WBC 4 /mm3 (1-10) 10/16/18 15:00 CSF RBC 113 /mm3 (0-0) 10/16/18 15:00 CSF Seg Neutrophils 8.0 % (0-6) 10/16/18 15:00 CSF Lymphocytes % 76.0 % (40-80) 10/16/18 15:00 CSF Reactive Lymphs 2.0 % 10/16/18 15:00 CSF Monocytes % 14.0 % (15-45) 10/16/18 15:00 CSF Eosinophils % 0 % 10/16/18 15:00 CSF Basophils 0 % 10/16/18 15:00 CSF Pathologist Review C 10/16/18 15:00 CSF Glucose 73 mg/dL 10/16/18 15:00 CSF Total Protein 55 mg/dL 10/16/18 15:00 CSF VDRL Nonreactive (Nonreactive) 10/16/18 15:00 Random Vancomycin 18.9 ug/mL (0-40.0) 10/29/18 07:13 Immunofix Electrophor see below 10/11/18 17:36 RENO Screen Negative (Negative) 10/21/18 15:07 Proteinase 3 (PR3) Ab <1.0 AI (<1.0) 10/21/18 15:07 Myeloperoxidase Ab <1.0 AI (<1.0) 10/21/18 15:07 Heparin-induced Plt Ab Negative (Negative) 10/25/18 05:59 UF Heparin High Dose 0 % Release 10/25/18 05:59 VJ UFH Low Dose 0.1 0 % Release 10/25/18 05:59 VJ UFH Low Dose 0.5 14 % Release 10/25/18 05:59 Lymph Enumerat CD4/CD8 0.01 (0.86-5.00) L 10/11/18 17:36 % CD3 Cells 85 % (57-85) 10/11/18 17:36 Absolute CD3 Count 226 cells/uL (840-3060) L 10/11/18 17:36 % CD4 Cells 1 % (30-61) L 10/11/18 17:36 Absolute CD4 Count 3 cells/uL (490-1740) L 10/11/18 17:36 % CD8 Cells 82 % (12-42) H 10/11/18 17:36 Absolute CD8 Count 228 cells/uL (180-1170) 10/11/18 17:36 % CD19 Cells 6 % (6-29) 10/11/18 17:36 Absolute CD19 Count 16 cells/uL (110-660) L 10/11/18 17:36 RPR Titer 1:32 10/11/18 17:37 RPR Reactive (Nonreactive) 10/11/18 17:37 T.pallidum Ab (FTA-ABS) Reactive (Nonreactive) H 10/12/18 Unknown 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 See scanned result 10/24/18 17:47 Hepatitis A IgM Ab Non-reactive (NonReactive) 10/11/18 17:34 Hep Bs Antigen Non-reactive (Negative) 10/11/18 17:34 Hep B Core IgM Ab Non-reactive (NonReactive) 10/11/18 17:34 Hepatitis C Antibody Non-reactive (NonReactive) 10/11/18 17:34 HIV-1 RNA PCR copies/ml 956605 Copies/mL H 10/11/18 17:36 HIV-1 RNA (PCR) log 5.51 Log cps/mL H 10/11/18 17:36 Toxoplasma IgG Ab <7.20 IU/mL (<7.20) 10/13/18 07:54 Miscellaneous Test Flexitest 1 10/16/18 15:00 Blood Type A POSITIVE 10/23/18 09:12 Antibody Screen Negative 10/23/18 09:12 Crossmatch See Detail 10/23/18 09:12 Active Medications - Current Medications Current Medications: Generic Name Dose Route Start Last Admin Trade Name Freq PRN Reason Stop Dose Admin Acetaminophen 500 mg 10/16/18 10:02 10/29/18 17:08 Tylenol PO 500 mg Q6H PRN Administration Fever >101 Albuterol 2.5 mg 10/10/18 18:12 Proventil IH Q3HRT PRN Shortness Of Breath Albuterol/Ipratropium 1 ampul 10/25/18 08:00 11/01/18 07:52 Duoneb *Not For Prn Use* IH 1 ampul TIDRT RUBI Administration Amlodipine Besylate 10 mg 10/11/18 10:00 10/31/18 10:00 Norvasc PO Not Given QDAY RUBI Lipase/Protease/Amylase 1 each 10/11/18 12:58 Pancreaze 10,500 Unit FEEDTUBE PRN PRN For Clogged Feeding Tube Arformoterol Tartrate 15 mcg 10/20/18 11:45 11/01/18 09:04 Blade Menendez IH Not Given Q12HRT RUBI Atovaquone 750 mg 10/18/18 10:00 10/31/18 23:23 Mepron PO 750 mg BID RUBI Administration Carvedilol 12.5 mg 10/22/18 22:00 10/31/18 23:22 Coreg PO 12.5 mg BID RUBI Administration Darunavir 800 mg 10/30/18 18:00 10/31/18 10:00 Prezista PO Not Given QDAY RUBI Emtricitabine 200 mg 11/01/18 10:00 Emtriva PO Q48HR RUBI Haloperidol Lactate 5 mg 10/13/18 19:45 10/20/18 21:08 Haldol IV 5 mg Q6H PRN Administration Agitation Hydralazine HCl 10 mg 10/12/18 15:50 10/28/18 22:36 Apresoline IV 10 mg Q4HR PRN Administration SBP>175 or DBP>115 Hydrophilic Ointment 1 applic 10/10/18 17:53 Vaseline Lip Therapy TP Q2HR PRN Dry Lips Sodium Chloride 100 mls @ 999 mls/hr 10/31/18 08:00 Nacl 0.9% IV CHON PRN Hypotension Lansoprazole 30 mg 10/15/18 10:00 10/31/18 23:23 Prevacid Solutab FEEDTUBE 30 mg BID RUBI Administration Lorazepam 1 mg 10/13/18 19:48 10/21/18 04:09 Ativan IV 1 mg Q4H PRN Administration agitation Metoprolol Tartrate 5 mg 10/18/18 14:05 Lopressor IV Q6HR PRN Tachyarrhythmias Multi-Ingred Cream/Lotion/Oil/Oint 1 applic 10/10/18 17:53 Artificial Tears Ophth Oint OU Q4HR PRN Dry Eye(s) Multivitamins 1 each 10/11/18 10:00 10/31/18 10:00 Theragran Tab PO Not Given DAILY RUBI Ritonavir 100 mg 10/30/18 18:00 10/31/18 10:00 Norvir PO Not Given QDAY RUBI Simple Syrup 15 ml 10/11/18 12:58 Simple Syrup FEEDTUBE PRN PRN Hypoglycemia Simple Syrup 30 ml 10/11/18 12:58 Simple Syrup FEEDTUBE PRN PRN Hypoglycemia Sodium Bicarbonate 325 mg 10/11/18 12:58 Sodium Bicarbonate FEEDTUBE PRN PRN For Clogged Feeding Tube Sodium Chloride 10 ml 10/10/18 22:00 10/31/18 23:23 Sodium Chloride Flush Syringe 10 Ml IV 10 ml BID RUBI Administration Sodium Chloride 10 ml 10/10/18 18:12 Sodium Chloride Flush Syringe 10 Ml IV PRN PRN LINE FLUSH Tenofovir Disoproxil Fumarate 300 mg 10/30/18 17:45 10/30/18 20:09 Viread PO 300 mg Q96H RUBI Administration Nutrition/Malnutrition Assess - Dietary Evaluation Nutrition/Malnutrition Findings: Nutrition Notes Start: 10/11/18 11:14 Freq: Status: Active Protocol: Document 10/29/18 15:52 RM (Rec: 10/29/18 15:57 RM [id number]) Nutrition Notes Initial or Follow up Reassessment Current Diagnosis Acute Kidney Injury,CKD(stage I-IV),Hypertension,Stroke Other Pertinent Diagnosis Acute encephalopathy, HIV/AIDS , Syphilis Current Diet Pureed w/nectar thick liquids w/Nepro 1 daily Labs/Tests BUN 103 Pertinent Medications Reviewed Height 5 ft 9 in Weight 72 kg [place] Body Weight (kg) 72.72 BMI 23.4 Subjective/Other Information Pt confused at time of visit. Pt tech stated that pt ate half of his lunch and drank all of the Nepro. Percent of energy/protein needs met: 69%/88% Burn Absent Trauma Absent #1 Nutrition Diagnosis Inadequate oral intake As Evidenced by Signs and Symptoms pt meeting 69% of calorie and 88% of protein needs Diagnosis Progress(for reassessment Improved documentation) Is patient on ventilator? No Is Patient Ambulatory and/or Out of Bed No REE-([facility]-confined to bed) [phone] Calculation Used for Recommendations [facility] Additional Notes Pro needs 1-1.2g/k-78g/ day Fluid needs 1ml/kcal Nutrition Intervention Change Diet Order: Continue current Add Supplement/Snack (indicate name/kcal Nepro 1 daily /protein ) Provides kCal: 425 Provides Protein (gm) 19 Goal #1 Meet at least 75% of calorie and protein needs via PO and ONS intakes Anticipated Discharge Needs: Pureed diet Follow-Up By: 11/01/18 Additional Comments Follow for PO and ONS intakes
[2018-11-01] MEDS: THERAGRAN Tab PO SCH (10:00)
[2018-11-01] MEDS: PREVACID SOLUTAB FEEDTUBE SCH ×2 (10:00→22:20)
[2018-11-01] MEDS: PREZISTA PO SCH (10:00)
[2018-11-01] MEDS: NORVIR PO SCH (10:00)
[2018-11-01] MEDS: TIVICAY PO SCH (10:00)
[2018-11-01] MEDS: MEPRON PO SCH ×2 (10:00→22:21)
[2018-11-01] MEDS: EMTRIVA PO SCH (10:00)
--- NOTE | 2018-11-01 10:29 | Progress Note ---
Assessment and Plan Cultures: Blood culture 10/10/2018 no growth. Sputum culture 10/10/2018 Ana Paula albicans. Crypto Ag 10/10/2018 neg. Urine culture 10/13/2018 no growth. Blood culture 10/17/2018 no growth. Blood culture 10/20/2018: no growth Stool Occult Blood 10/23/18: positive Blood culture 10/29/18: negative Assessment: 43 y/o male with history of HIV (unknown CD4/VL/ART intake), HTN, CVA 6 months ago at [place], Nicotine Dependence, Malnutrition; admitted on 10/10/2018 due to AMS (confusion/lethargy) and slurred speech for 24 h: 1) SIRS versus sepsis: Low grade fevers continue. ?drug fever, ?right groin HD catheter related fevers although multiple blood cultures have remained negative. Started HIV treatment on 10/30/2018. - CXR neg - BNP 70K - Troponin 0.2 - LDH 2242 2) Acute hypoxemic respiratory failure: for airway protection +/- ? pneumonia. Repeat CXR no consolidations. Ana Paula in tracha sp likely a colonizer. Extubated 10/15. Continues on atovaquone as prophylaxis. Patient has sulfa allergy. 3) Acute encephalopathy: Improved.; multifactorial ?from hypertensive urgency +/- brain opportunistic infection. DDx: Neurosyphilis, VZV/CMV encephalitis versus JUKEBOX ROUTEMAN lymphoma versus less likely PML v/s ischemic CVA (seems more likely) - CT head showed bilateral chronic ischemic changes. - Brain MRI showed areas of edema in the basal ganglia and thalami bilaterally, within the jamari and in the cerebral hemispheres bilaterally in the subcortical and deep white matter and in portions of the cortex, areas of encephalomalacia in the basal ganglia bilaterally with evidence of previous hemo rrhage or mineral deposition and numerous small foci of acute infarct in the basal ganglia bilaterally, subinsular regions bilaterally and medial temporal lobes bilaterally and possibly in the occipital cortex bilaterally. - Brain MRA showed possible dissection versus artifact at the basilar artery. Luminal irregularity at the anterior, middle, and posterior cerebral arteries as well as the carotid siphons may represent mild to moderate atherosclerotic disease. More notable narrowing at the distal right A1 segment. Differential diagnosis includes motion artifact and vasculitis. Vertebral arteries are not clearly visualized. - CSF wbc 4, rbc 113, Seg 8%, Lymph 76%, protein 55, glucose 73 which is not c/w meningitis - RPR reactive 1:32 / FTA ABs reactive, treated with penicillin and ceftriaxone but CSF VDRL Non reactive. - Toxoplasma IgG negative, CSF Toxoplasma PCR: negative - Blood CMV DNA VL=1,370, 3.1 log on ganciclovir - likely reactivation - Repeat CMV DNA PCR 10/24/2018: <200. Off ganciclovir. 4) Anemia/thrombocytopenia: improving. 5) Acute on CKD or SHRUTHI ? unclear etiology: on HD. 6) DM: uncontrolled. 7) HIV/AIDS: VL 320,000 / CD4=3 on 10/11/2018. Continue HIV therapy (started on 10/30/2018): renally adjusted TDF, FTC along with dolutegravir and ritonavir boosted darunavir. Follow up Genotype and if no resistance mutations, possibly d/c both TDF and FTC and continue nuc-sparing regimen of dolutegravir along with ritonavir boosted darunavir. Recommendations: -continue atovaquone 750 mg BID -continue HIV therapy: renally adjusted TDF, FTC along with dolutegravir and ritonavir boosted darunavir -follow up HIV Genotype -f/u 1,3 [id number] -CBC ordered for tomorrow [facility] M: [id number] O:[phone] Subjective Date of service: 11/01/18 Principal diagnosis: anemia - HIV Interval history: Patient seen and examined. More alert today, following simple commands. Objective - Exam Narrative Exam: General appearance: Awake, Alert, No acute distress Eyes: anicteric sclerae, moist conjunctivae; no lid-lag; PERRLA HENT: Atraumatic; oropharynx limited Neck: Trachea midline; supple, no thyromegaly or lymphadenopathy Lungs: CTA, with normal respiratory effort, on 09/17L CV: tachycardic Abdomen: Soft, non-tender;+SP cath Extremities: No peripheral edema or extremity lymphadenopathy Skin: Normal temperature, turgor and texture; no rash, ulcers or subcutaneous nodules Psych: affect: Flat Neuro: Generalized weakness, not following commands - Constitutional Vitals: Vital Signs Temp Pulse Resp BP Pulse Ox 98.4 F 120 H 20 109/68 97 11/01/18 04:05 11/01/18 08:03 11/01/18 08:03 11/01/18 04:05 11/01/18 08:46 Temperature -Last 24 Hours Temperature 98.4 F Temperature 98.5 F Temperature 99.9 F Temperature 100.8 F - Labs CBC & Chem 7: 10/29/18 09:27 11/01/18 05:45 Labs: Abnormal lab results 11/01/18 Range/Units 05:45 Potassium 5.4 H (3.6-5.0) mmol/L Chloride 91.8 L (98-107) mmol/L Carbon Dioxide 19 L (22-30) mmol/L BUN 100 H (9-20) mg/dL Creatinine 11.4 H (0.8-1.5) mg/dL Glucose 121 H (75-100) mg/dL
[2018-11-01] MEDS: NORVASC PO SCH (12:53)
[2018-11-01] MEDS: COREG PO SCH ×2 (12:53→22:20)
[2018-11-01] MEDS: SODIUM CHLORIDE FLUSH SYRINGE 10 ML IV SCH ×2 (12:59→22:22)
--- NOTE | 2018-11-01 13:32 | Progress Note ---
Assessment and Plan - Patient Problems (1) Acute kidney injury Current Visit: Yes Status: Acute Plan to address problem: Acute kidney injury : severe Now dialysis dependent. I reviewed renal Ultrasound with 10.1cm and 10.8cm kidneys bilateral echogenic Possible aetiologies of Acute kidney injury is likely 2/2 acute tubular injury ,possible underlying HIV associated nephropathy cannot be excluded . He is currently oliguric currently dialysis dependent. Currently has a Mahurkar We'll need tunneled dialysis catheter placement unfortunately still febrile Once febrile episodes resolve Discussed with vascular surgery will need Mahurkar replaced if febrile episodes persist appreciate Vascular surgery assistance. Avoid Nephrotoxic medications. 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 (3) Hyperkalemia, diminished renal excretion Current Visit: Yes Status: Acute Plan to address problem: Hyperkalemia setting of renal failure potassium is 5.4 recurrent issues with hyperkalemia received dialysis on 10/31/2018 2k/2.5ca/[id number] bath 4hours. currently on puree diet with renal modification has ongoing diarrhoea. Will add Florinef as well. (4) Metabolic acidosis Current Visit: Yes Status: Acute Plan to address problem: Metabolic acidosis secondary to renal failure high anion gap acidosis Will check phosphorus levels as well. We'll continue dialysis Subjective Principal diagnosis: SHRUTHI - Hiv Interval history: 43 year old gentleman with medical history significant for HIV admitted with Sepsis , acute hypoxemic respiratory failure , Encephalopathy , transaminitis and worsening renal failure . Patient seen this morning Had dialysis yesterday still with low grade temperatures still has Right groin vas cath answers simple questions review of systems limited by encephalopathy. Objective - Vital Signs Vital signs: Vital Signs - 12hr 11/01/18 11/01/18 11/01/18 04:05 07:52 08:03 Temperature 98.4 F Pulse Rate 129 H Pulse Rate [ 123 H 120 H Bilateral Throughout] Respiratory 18 Rate Respiratory 18 20 Rate [Bilateral Throughout] Blood Pressure 109/68 O2 Sat by Pulse 97 Oximetry 11/01/18 11/01/18 11/01/18 08:46 12:51 12:53 Temperature 98.0 F Pulse Rate 122 H 121 H Pulse Rate [ Bilateral Throughout] Respiratory 17 Rate Respiratory Rate [Bilateral Throughout] Blood Pressure 120/77 120/77 O2 Sat by Pulse 97 97 Oximetry - General Appearance General appearance: cachectic, chronically ill, frail EENT: ATNC Neck: no JVD, no thyromegaly Respiratory: Present: Decreased Breath Sounds Cardiology: tachycardia, S1S2 Gastrointestinal: normal, other (increased BS. ) Integumentary: no rash Neurologic: other (awake , answers simple questions. ) Musculoskeletal: deferred Psychiatric: mood/affect appropriate - Lab 10/29/18 09:27 11/01/18 05:45 Most recent lab results Calcium 8.7 mg/dL (8.4-10.2) 11/01/18 05:45 Phosphorus 8.30 mg/dL (2.5-4.5) H 10/25/18 10:00 Magnesium 3.10 mg/dL (1.7-2.3) H 10/18/18 05:03 Urine Creatinine 30.8 mg/dL (0.1-20.0) H 10/13/18 04:43 Urine Sodium 106 mmol/L 10/13/18 04:43 Urine Total Protein 75 mg/dL (5-11.8) H 10/13/18 04:43 - Imaging Chest x-ray: other (I reviewed CXR with patchy opacities. ) Medications & Allergies - Medications Allergies/Adverse Reactions: Allergies Sulfa (Sulfonamide Antibiotics) Allergy (Verified 10/10/18 16:54) Unknown Home Medications: Home Medications Medication Instructions Recorded Confirmed Last Taken Type Acetaminophen [Tylenol] 1,000 mg PO Q6HR 10/10/18 10/10/18 Unknown History Amlodipine Besylate [Norvasc] 10 mg PO QDAY 10/10/18 10/10/18 Unknown History Aspirin [Adult Aspirin] 81 mg PO DAILY 10/10/18 10/10/18 Unknown History Atorvastatin [Lipitor Tab] 80 mg PO DAILY 10/10/18 10/10/18 Unknown History Losartan [Cozaar] 100 mg PO QDAY 10/10/18 10/10/18 Unknown History Multivitamin [Multiple Vitamins] 1 each PO DAILY 10/10/18 10/10/18 Unknown History hydroCHLOROthiazide [HCTZ] 25 mg PO QDAY 10/10/18 10/10/18 Unknown History Active Medications: Generic Name Dose Route Start Last Admin Trade Name Freq PRN Reason Stop Dose Admin Acetaminophen 500 mg 10/16/18 10:02 10/29/18 17:08 Tylenol PO 500 mg Q6H PRN Administration Fever >101 Albuterol 2.5 mg 10/10/18 18:12 Proventil IH Q3HRT PRN Shortness Of Breath Albuterol/Ipratropium 1 ampul 10/25/18 08:00 11/01/18 07:52 Duoneb *Not For Prn Use* IH 1 ampul TIDRT RUBI Administration Amlodipine Besylate 10 mg 10/11/18 10:00 11/01/18 12:53 Norvasc PO 10 mg QDAY RUBI Administration Lipase/Protease/Amylase 1 each 10/11/18 12:58 Pancreazkarlos Reed 10,500 Unit FEEDTUBE PRN PRN For Clogged Feeding Tube Arformoterol Tartrate 15 mcg 10/20/18 11:45 11/01/18 09:04 Brorussell Bluntu IH Not Given Q12HRT RUBI Atovaquone 750 mg 10/18/18 10:00 10/31/18 23:23 Mepron PO 750 mg BID RUBI Administration Carvedilol 12.5 mg 10/22/18 22:00 11/01/18 12:53 Coreg PO 12.5 mg BID RUBI Administration Darunavir 800 mg 10/30/18 18:00 10/31/18 10:00 Prezista PO Not Given QDAY RUBI Emtricitabine 200 mg 11/01/18 10:00 Emtriva PO Q48HR RUBI Haloperidol Lactate 5 mg 10/13/18 19:45 10/20/18 21:08 Haldol IV 5 mg Q6H PRN Administration Agitation Hydralazine HCl 10 mg 10/12/18 15:50 10/28/18 22:36 Apresoline IV 10 mg Q4HR PRN Administration SBP>175 or DBP>115 Hydrophilic Ointment 1 applic 10/10/18 17:53 Vaseline Lip Therapy TP Q2HR PRN Dry Lips Sodium Chloride 100 mls @ 999 mls/hr 10/31/18 08:00 Nacl 0.9% IV CHON PRN Hypotension Lansoprazole 30 mg 10/15/18 10:00 10/31/18 23:23 Prevacid Solutab FEEDTUBE 30 mg BID RUBI Administration Lorazepam 1 mg 10/13/18 19:48 10/21/18 04:09 Ativan IV 1 mg Q4H PRN Administration agitation Metoprolol Tartrate 5 mg 10/18/18 14:05 Lopressor IV Q6HR PRN Tachyarrhythmias Multi-Ingred Cream/Lotion/Oil/Oint 1 applic 10/10/18 17:53 Artificial Tears Ophth Oint OU Q4HR PRN Dry Eye(s) Multivitamins 1 each 10/11/18 10:00 10/31/18 10:00 Theragran Tab PO Not Given DAILY RUBI Ritonavir 100 mg 10/30/18 18:00 10/31/18 10:00 Norvir PO Not Given QDAY RUBI Simple Syrup 15 ml 10/11/18 12:58 Simple Syrup FEEDTUBE PRN PRN Hypoglycemia Simple Syrup 30 ml 10/11/18 12:58 Simple Syrup FEEDTUBE PRN PRN Hypoglycemia Sodium Bicarbonate 325 mg 10/11/18 12:58 Sodium Bicarbonate FEEDTUBE PRN PRN For Clogged Feeding Tube Sodium Chloride 10 ml 10/10/18 22:00 11/01/18 12:59 Sodium Chloride Flush Syringe 10 Ml IV 10 ml BID RUBI Administration Sodium Chloride 10 ml 10/10/18 18:12 Sodium Chloride Flush Syringe 10 Ml IV PRN PRN LINE FLUSH Tenofovir Disoproxil Fumarate 300 mg 10/30/18 17:45 10/30/18 20:09 Viread PO 300 mg Q96H RUBI Administration
[2018-11-02 01:01] LABS: Hematocrit 25.2 % (35.5-45.6); Hemoglobin 8.2 gm/dl (11.8-15.2); Mean Corpuscular HGB Conc 32 % (32-34); Mean Corpuscular Volume 90 fl (84-94); Platelet Count 217 K/mm3 (140-440); Red Cell Distribution Width 19.8 % (13.2-15.2)
[2018-11-02 04:30] LABS: Calcium 7.9 mg/dL (8.4-10.2)
--- NOTE | 2018-11-02 07:32 | Hem/Onc Progress Note ---
Assessment and Plan 1. Anemia. At admission, hemoglobin was 8.1, later low and s/p Transfusion support. 2. Platelets at admission was 20. 3. White cell count was elevated. 4. PT/INR h/o slightly elevated. 5. Renal failure. 6. ALT elevated. 7. The patient has multiple medical issues. PLAN: I will ask for a smear evaluation. I will call the lab for same. Supportive care in the interim while we looked for primary etiology. 3 - plt better - s/p transfusion d/w dr rain and dr carrillo 10/14 - low plt - rasta ctive bleed suprapubic catheter 10/15 - plt were rising and again going down' pt had got plt transfusion LDH high - [id number] ordered smear - ordererd LDH may be high in other causes too - renal etc 10/16 - d/w path - not many schistocytes on smear - ADAMTS 13 ordered extubated 10/17 - plt low - path review ordered d/w armin monsalve 10/18 - path report pending plt low - but no active bleeding 10/19 - pt more alert - follows commands no bleeding 10/20 pt SOB - d/w Dr Monsalve and RN plt low - but no bleeding NGT+ more awake 10/21 - pt in [facility] plt >100 - more awake 10/22 - clinically better - moves all 4 limbs 10/23 - clinically stable - prbc suport 10/24 - as per RN -pt passed barium - for thickened diet pt has suprapubic got PRBC plt improving 10/25 - clinically better no active bleeding 10/26 - moving all extremity -communicating repeat cbc 10/27 - labs better - clinically improving 10/28 - plt now normal - hb better - s/p PRBC recent CKD may have a role 10/29 - pt clinically stable - loss control consultant abn - electrolyte abn 10/30 - cbc improving - pt had question reg rectal tube - he will d/w other MDs 10/31 - plt better - hb better - OP follow up an option 11/01 - labs follow up 11/02 anemia d/w rn - erctal tube - decubiti suprapubic HD cath change planned - Patient Problems (1) Thrombocytopenia associated with AIDS Current Visit: Yes Status: Acute (2) Anemia Current Visit: Yes Status: Acute Qualifiers: Anemia type: due to chronic kidney disease Chronic kidney disease stage: unspecified stage Qualified Code(s): N18.9 - Chronic kidney disease, unspecified; D63.1 - Anemia in chronic kidney disease Subjective Date of service: 11/02/18 Principal diagnosis: hiv - anemia Interval history: d/w rn - erctal tube - decubiti suprapubic HD cath change planned Objective - Constitutional Vitals: Last Vital Signs Temp 98.0 F 11/01/18 21:44 Pulse 114 H 11/01/18 22:20 Resp 20 11/02/18 03:00 BP 101/57 11/01/18 21:44 Pulse Ox 99 11/01/18 21:44 Pain Intensity (0-10): denies any pain General appearance: no acute distress Performance status: 3-limited selfcare - EENT Eyes: EOM intact ENT: clear oral mucosa - Neck Neck: normal ROM - Respiratory Respiratory effort: Positive: normal Respiratory: bilateral: diminished - Cardiovascular Heart Sounds: Present: S1 & S2 Extremities: No edema - Gastrointestinal General gastrointestinal: Present: soft, other (suprapubic) Rectal Exam: deferred - Genitourinary Male genitourinary: Present: deferred - Integumentary Integumentary: warm - Musculoskeletal Musculoskeletal: generalized weakness - Neurologic Neurologic: moves all extremities - Labs Lab Results: Laboratory Results - last 24 hr 10/24/18 10/25/18 11/02/18 17:47 05:59 00:40 RBC 2.80 L Hgb 8.2 L Hct 25.2 L MCV 90 MCH 29 MCHC 32 RDW 19.8 H Plt Count 217 Sodium Potassium Chloride Carbon Dioxide Anion Gap BUN Creatinine Estimated GFR BUN/Creatinine Ratio Glucose Calcium Serotonin Release Assay See scanned result CMV DNA PCR log cop breaker/mL See scanned result 11/02/18 11/02/18 03:58 05:01 RBC Hgb Hct MCV MCH MCHC RDW Plt Count Sodium 141 Potassium 7.0 H* D 6.6 H* Chloride 91.6 L Carbon Dioxide 16 L Anion Gap 40 BUN 123 H Creatinine 13.8 H Estimated GFR 5 BUN/Creatinine Ratio 9 Glucose 107 H Calcium 7.9 L Serotonin Release Assay CMV DNA PCR log cop breaker/mL Medications & Allergies - Medications Allergies/Adverse Reactions: Allergies Sulfa (Sulfonamide Antibiotics) Allergy (Verified 10/10/18 16:54) Unknown Home Medications: Home Medications Medication Instructions Recorded Confirmed Last Taken Type Acetaminophen [Tylenol] 1,000 mg PO Q6HR 10/10/18 10/10/18 Unknown History Amlodipine Besylate [Norvasc] 10 mg PO QDAY 10/10/18 10/10/18 Unknown History Aspirin [Adult Aspirin] 81 mg PO DAILY 10/10/18 10/10/18 Unknown History Atorvastatin [Lipitor Tab] 80 mg PO DAILY 10/10/18 10/10/18 Unknown History Losartan [Cozaar] 100 mg PO QDAY 10/10/18 10/10/18 Unknown History Multivitamin [Multiple Vitamins] 1 each PO DAILY 10/10/18 10/10/18 Unknown History hydroCHLOROthiazide [HCTZ] 25 mg PO QDAY 10/10/18 10/10/18 Unknown History Active Medications: Generic Name Dose Route Start Last Admin Trade Name Freq PRN Reason Stop Dose Admin Acetaminophen 500 mg 10/16/18 10:02 10/29/18 17:08 Tylenol PO 500 mg Q6H PRN Administration Fever >101 Albuterol 2.5 mg 10/10/18 18:12 Proventil IH Q3HRT PRN Shortness Of Breath Albuterol/Ipratropium 1 ampul 10/25/18 08:00 11/01/18 19:58 Duoneb *Not For Prn Use* IH Not Given TIDRT RUBI Amlodipine Besylate 10 mg 10/11/18 10:00 11/01/18 12:53 Norvasc PO 10 mg QDAY RUBI Administration Lipase/Protease/Amylase 1 each 10/11/18 12:58 Carrie Reed 10,500 Unit FEEDTUBE PRN PRN For Clogged Feeding Tube Arformoterol Tartrate 15 mcg 10/20/18 11:45 11/01/18 19:57 Brovana Nebu IH 15 mcg Q12HRT RUBI Administration Atovaquone 750 mg 10/18/18 10:00 11/01/18 22:21 Mepron PO 750 mg BID RUBI Administration Carvedilol 12.5 mg 10/22/18 22:00 11/01/18 22:20 Coreg PO 12.5 mg BID RUBI Administration Darunavir 800 mg 10/30/18 18:00 11/01/18 10:00 Prezista PO Not Given QDAY RUBI Emtricitabine 200 mg 11/01/18 10:00 11/01/18 10:00 Emtriva PO Not Given Q48HR RUBI Haloperidol Lactate 5 mg 10/13/18 19:45 10/20/18 21:08 Haldol IV 5 mg Q6H PRN Administration Agitation Hydralazine HCl 10 mg 10/12/18 15:50 10/28/18 22:36 Apresoline IV 10 mg Q4HR PRN Administration SBP>175 or DBP>115 Hydrophilic Ointment 1 applic 10/10/18 17:53 Vaseline Lip Therapy TP Q2HR PRN Dry Lips Sodium Chloride 100 mls @ 999 mls/hr 10/31/18 08:00 Nacl 0.9% IV CHON PRN Hypotension Lansoprazole 30 mg 10/15/18 10:00 11/01/18 22:20 Prevacid Solutab FEEDTUBE 30 mg BID RUBI Administration Lorazepam 1 mg 10/13/18 19:48 10/21/18 04:09 Ativan IV 1 mg Q4H PRN Administration agitation Metoprolol Tartrate 5 mg 10/18/18 14:05 Lopressor IV Q6HR PRN Tachyarrhythmias Multi-Ingred Cream/Lotion/Oil/Oint 1 applic 10/10/18 17:53 Artificial Tears Ophth Oint OU Q4HR PRN Dry Eye(s) Multivitamins 1 each 10/11/18 10:00 11/01/18 10:00 Theragran Tab PO Not Given DAILY RUBI Ritonavir 100 mg 10/30/18 18:00 11/01/18 10:00 Norvir PO Not Given QDAY RUBI Simple Syrup 15 ml 10/11/18 12:58 Simple Syrup FEEDTUBE PRN PRN Hypoglycemia Simple Syrup 30 ml 10/11/18 12:58 Simple Syrup FEEDTUBE PRN PRN Hypoglycemia Sodium Bicarbonate 325 mg 10/11/18 12:58 Sodium Bicarbonate FEEDTUBE PRN PRN For Clogged Feeding Tube Sodium Chloride 10 ml 10/10/18 22:00 11/01/18 22:22 Sodium Chloride Flush Syringe 10 Ml IV 10 ml BID RUBI Administration Sodium Chloride 10 ml 10/10/18 18:12 Sodium Chloride Flush Syringe 10 Ml IV PRN PRN LINE FLUSH Tenofovir Disoproxil Fumarate 300 mg 10/30/18 17:45 10/30/18 20:09 Viread PO 300 mg Q96H RUBI Administration
[2018-11-02 07:45] LABS: Band Neutrophils # (Manual) 0.4 K/mm3; Basophils % (Manual) 0 % (0.0-1.8); Eosinophils % (Manual) 0 % (0.0-4.3); Total Cells Counted 100
[2018-11-02 07:48] LABS: Anisocytosis 1+; Poikilocytosis 1+
[2018-11-02 07:49] LABS: Hypochromasia 1+
[2018-11-02 07:50] LABS: Platelet Estimate Consistent w Auto; Schistocytes Rare
[2018-11-02] MEDS: DUONEB *Not for PRN Use IH SCH ×3 (08:09→20:36)
[2018-11-02] MEDS: BROVANA NEBU IH SCH ×2 (08:09→20:37)
--- NOTE | 2018-11-02 10:20 | Progress Note ---
Assessment and Plan Cultures: Blood culture 10/10/2018 no growth. Sputum culture 10/10/2018 Ana Paula albicans. Crypto Ag 10/10/2018 neg. Urine culture 10/13/2018 no growth. Blood culture 10/17/2018 no growth. Blood culture 10/20/2018: no growth Stool Occult Blood 10/23/18: positive Blood culture 10/29/18: negative Assessment: 43 y/o male with history of HIV (unknown CD4/VL/ART intake), HTN, CVA 6 months ago at [place], Nicotine Dependence, Malnutrition; admitted on 10/10/2018 due to AMS (confusion/lethargy) and slurred speech for 24 h: 1) SIRS versus sepsis: No fever in > 24 hours, ?drug fever, ?right groin HD catheter related fevers although multiple blood cultures have remained negative. Started HIV treatment on 10/30/2018. - CXR neg - BNP 70K - Troponin 0.2 - LDH 2242 2) Acute hypoxemic respiratory failure: for airway protection +/- ? pneumonia. Repeat CXR no consolidations. Ana Paula in tracha sp likely a colonizer. Extubated 10/15. Continues on atovaquone as prophylaxis. Patient has sulfa allergy. 3) Acute encephalopathy: Improved.; multifactorial ?from hypertensive urgency +/- brain opportunistic infection. DDx: Neurosyphilis, VZV/CMV encephalitis versus NURSERY TEACHER lymphoma versus less likely PML v/s ischemic CVA (seems more likely) - CT head showed bilateral chronic ischemic changes. - Brain MRI showed areas of edema in the basal ganglia and thalami bilaterally, within the jamari and in the cerebral hemispheres bilaterally in the subcortical and deep white matter and in portions of the cortex, areas of encephalomalacia in the basal ganglia bilaterally with evidence of previous hemorrhage or mineral deposition and numerous small foci of acute infarct in the basal ganglia bilaterally, subinsular regions bilaterally and medial temporal lobes bilaterally and possibly in the occipital cortex bilaterally. - Brain MRA showed possible dissection versus artifact at the basilar artery. Luminal irregularity at the anterior, middle, and posterior cerebral arteries as well as the carotid siphons may represent mild to moderate atherosclerotic disease. More notable narrowing at the distal right A1 segment. Differential diagnosis includes motion artifact and vasculitis. Vertebral arteries are not clearly visualized. - CSF wbc 4, rbc 113, Seg 8%, Lymph 76%, protein 55, glucose 73 which is not c/w meningitis - RPR reactive 1:32 / FTA ABs reactive, treated with penicillin and ceftriaxone but CSF VDRL Non reactive. - Toxoplasma IgG negative, CSF Toxoplasma PCR: negative - Blood CMV DNA VL=1,370, 3.1 log on ganciclovir - likely reactivation - Repeat CMV DNA PCR 10/24/2018: <200. Off ganciclovir. 4) Anemia/thrombocytopenia: improving. 5) Acute on CKD or SHRUTHI ? unclear etiology: on HD. 6) DM: uncontrolled. 7) HIV/AIDS: VL 320,000 / CD4=3 on 10/11/2018. Continue HIV therapy (started on 10/30/2018): renally adjusted TDF, FTC along with dolutegravir and ritonavir boosted darunavir. Follow up Genotype and if no resistance mutations, possibly d/c both TDF and FTC and continue nuc-sparing regimen of dolutegravir along with ritonavir boosted darunavir. Recommendations: -continue atovaquone 750 mg BID -continue HIV therapy: renally adjusted TDF, FTC along with dolutegravir and ritonavir boosted darunavir -follow up HIV Genotype -f/u 1,3 [id number] Dr. Arreguin will be defensive secondary coach this weekend, , please call for questions. [facility] M: [phone] O:[phone] Subjective Date of service: 11/02/18 Principal diagnosis: hiv - anemia Interval history: Patient seen and examined. No acute distress observed, continues to follow simple commands. Objective - Exam Narrative Exam: General appearance: Awake, Alert, No acute distress Eyes: anicteric sclerae, moist conjunctivae; no lid-lag; PERRLA HENT: Atraumatic; oropharynx limited Neck: Trachea midline; supple, no thyromegaly or lymphadenopathy Lungs: CTA, with normal respiratory effort, on CV: tachycardic Abdomen: Soft, non-tender;+SP cath Extremities: No peripheral edema or extremity lymphadenopathy Skin: Normal temperature, turgor and texture; no rash, ulcers or subcutaneous nodules Psych: affect: Flat Neuro: Generalized weakness, not following commands - Constitutional Vitals: Vital Signs Temp Pulse Resp BP Pulse Ox 98.0 F 115 H 20 101/57 100 11/01/18 21:44 11/02/18 08:26 11/02/18 08:26 11/01/18 21:44 11/02/18 08:09 Temperature -Last 24 Hours Temperature 98.0 F Temperature 97.6 F Temperature 98.0 F - Labs CBC & Chem 7: 11/02/18 00:40 11/02/18 05:01 Labs: Abnormal lab results 11/02/18 11/02/18 11/02/18 Range/Units 00:40 03:58 05:01 RBC 2.80 L (3.65-5.03) M/mm3 Hgb 8.2 L (11.8-15.2) gm/dl Hct 25.2 L (35.5-45.6) % RDW 19.8 H (13.2-15.2) % Monocytes % (Manual) 11.0 H (0.0-7.3) % Nucleated RBC % 34.0 H (0.0-0.9) % Monocytes # (Manual) 1.0 H (0.0-0.8) K/mm3 Potassium 7.0 H* D 6.6 H* (3.6-5.0) mmol/L Chloride 91.6 L (98-107) mmol/L Carbon Dioxide 16 L (22-30) mmol/L BUN 123 H (9-20) mg/dL Creatinine 13.8 H (0.8-1.5) mg/dL Glucose 107 H (75-100) mg/dL Calcium 7.9 L (8.4-10.2) mg/dL
[2018-11-02] MEDS: NORVASC PO SCH (11:30)
[2018-11-02] MEDS: MEPRON PO SCH (11:30)
[2018-11-02] MEDS: COREG PO SCH (11:30)
[2018-11-02] MEDS: PREVACID SOLUTAB FEEDTUBE SCH (11:31)
[2018-11-02] MEDS ORDERED: NACL 0.9% 1000 ML 1,000 ML ONE (12:36)
--- NOTE | 2018-11-02 14:50 | Progress Note ---
Assessment and Plan Assessment and plan: patient is 43 YO Male with HIV, hypertension, previous stroke, Nicotine Dependence, presents to ED for evaluation. Patient was confused and lethargic and unable to provide history. He was seen and evaluated in ED and found to be in distress and unable to protect his airway and was therefore intubated, placed on ventilator in ER then admitted MR brain 10/11 1. Study somewhat degraded by motion artifact. 2 Areas of edema in the basal ganglia and thalami bilaterally, within the jamari and in the cerebral hemispheres bilaterally in the subcortical and deep white matter and in portions of the cortex. 3. Areas of encephalomalacia in the basal ganglia bilaterally with evidence of previous hemorrhage or mineral deposition. 4. Numerous small foci of acute infarct in the basal ganglia bilaterally, subinsular regions bilaterally and medial temporal lobes bilaterally and possibly in the occipital cortex bilaterally. The above findings may be secondary to an infectious or noninfectious etiology with a component of vasculopathy or vasculitis resulting in infarcts. Viral encephalopathies and lymphoma would need to be considered in this patient with history of HIV. Neuro ams acute metabolic encephalopathy improving /Acute CVA with Bilateral infarcts with edema Consulted Neurology, he was evaluated by DR. Valentine. Could be due to possible vasculitis - further workup pending Dysphagia/ moderate malnutrition -MBS 10/23, recommended pureed with nectar thickened liquids Hematology Anemia- stable, thrombocytopenia, leukocytosis, coagulopathy; now resolved -Status post platelet and prbc transfusion, the patient had only few schistocytes on smear, ADAMS13 91% activity ID HIV/AIDS, CD4 count 3, HIV viral load 320,000 acute bacterial PNA, CMV viremia toxo neg, CSF neg Whole blood cmv PCR was positive at 1374 abx and antiviral per ID high fever, cxr shows improvement of vasc congestion, fup blood cx, femoral Vas- Cath which is likely the source of infection was supposed to be removed after dialysis on Monday, discussed with vascular surgery, it'll hopefully be removed today after dialysis FEN/Renal SHRUTHI- ATN, Hyperkalemia, urinary retention sp SPC on 10/12 cont HD per nephrology, no signs of renal recovery Pulm acute hypoxic resp failure on MV> 96 hours self extubated 10/16, continue supplemental oxygen CVS /Hypertensive urgency and acute systolic CHF He was treated with Cardene drip which was weaned off. Optimize medications for CHF on coreg, no mik due to high K, fluid removal by dialysis Skin Stage 2 sacral wound decub . The wound was measured at 5.0x4.0. Small serous sanguineous drainage noticed from the wound. no evidence of infection, cont wound care DVT ppx- scds, given that he pw thrombocytopenia History Interval history: Patient continues to have weakness of his voice, fevers now resolved Review of systems Constitutional: , no malaise, no joint pains CVS: No chest pain, no orthopnea, no dyspnea on exertion, no pedal edema GI: No abdominal pain, no diarrhea, no vomiting, no constipation Respiratory: No shortness of breath, no wheezing, no coughing Hospitalist Physical - Physical exam Narrative exam: General.: Appears well, no distress, nontoxic HEENT: Moist mucous membranes, extraocular muscles intact, no lymphadenopathy Neck: supple Cardiac: S1-S2 heard Lungs: clear to auscultation bilaterally Abdomen: soft , nontender, nondistended, bowel sounds positive Extremities: no edema clubbing or cyanosis Skin: no rash or lesions Neurologic: no gross focal deficits Psych: calm, and cooperative - Constitutional Vitals: Temp Pulse Resp BP Pulse Ox 98.0 F 130 H 20 124/76 100 11/02/18 10:00 11/02/18 14:39 11/02/18 10:00 11/02/18 14:39 11/02/18 08:09 General appearance: Present: no acute distress Results - Labs CBC & Chem 7: 11/02/18 00:40 11/02/18 05:01 Labs: Laboratory Last Values WBC 9.4 K/mm3 (4.5-11.0) 11/02/18 00:40 RBC 2.80 M/mm3 (3.65-5.03) L 11/02/18 00:40 Hgb 8.2 gm/dl (11.8-15.2) L 11/02/18 00:40 Hct 25.2 % (35.5-45.6) L 11/02/18 00:40 MCV 90 fl (84-94) 11/02/18 00:40 MCH 29 pg (28-32) 11/02/18 00:40 MCHC 32 % (32-34) 11/02/18 00:40 RDW 19.8 % (13.2-15.2) H 11/02/18 00:40 Plt Count 217 K/mm3 (140-440) 11/02/18 00:40 Add Manual Diff Complete 11/02/18 00:40 Total Counted 100 11/02/18 00:40 Seg Neuts % (Manual) 68.0 % (40.0-70.0) 11/02/18 00:40 Band Neutrophils % 4.0 % 11/02/18 00:40 Lymphocytes % (Manual) 15.0 % (13.4-35.0) 11/02/18 00:40 Reactive Lymphs % (Man) 2.0 % 11/02/18 00:40 Monocytes % (Manual) 11.0 % (0.0-7.3) H 11/02/18 00:40 Eosinophils % (Manual) 0 % (0.0-4.3) 11/02/18 00:40 Basophils % (Manual) 0 % (0.0-1.8) 11/02/18 00:40 Metamyelocytes % 0 % 11/02/18 00:40 Myelocytes % 0 % 11/02/18 00:40 Promyelocytes % 0 % 11/02/18 00:40 Blast Cells % 0 % 11/02/18 00:40 Nucleated RBC % 34.0 % (0.0-0.9) H 11/02/18 00:40 Seg Neutrophils # Man 6.4 K/mm3 (1.8-7.7) 11/02/18 00:40 Band Neutrophils # 0.4 K/mm3 11/02/18 00:40 Abs Lymphs (Manual) 267 cells/uL (850-3900) L 10/11/18 17:36 Lymphocytes # (Manual) 1.4 K/mm3 (1.2-5.4) 11/02/18 00:40 Abs React Lymphs (Man) 0.2 K/mm3 11/02/18 00:40 Monocytes # (Manual) 1.0 K/mm3 (0.0-0.8) H 11/02/18 00:40 Eosinophils # (Manual) 0.0 K/mm3 (0.0-0.4) 11/02/18 00:40 Basophils # (Manual) 0.0 K/mm3 (0.0-0.1) 11/02/18 00:40 Metamyelocytes # 0.0 K/mm3 11/02/18 00:40 Myelocytes # 0.0 K/mm3 11/02/18 00:40 Promyelocytes # 0.0 K/mm3 11/02/18 00:40 Blast Cells # 0.0 K/mm3 11/02/18 00:40 Pathologist Review 10/15/18 03:14 WBC Morphology Not Reportable 11/02/18 00:40 Hypersegmented Neuts Not Reportable 11/02/18 00:40 Hyposegmented Neuts Not Reportable 11/02/18 00:40 Hypogranular Neuts Not Reportable 11/02/18 00:40 Smudge Cells Not Reportable 11/02/18 00:40 Toxic Granulation Not Reportable 11/02/18 00:40 Toxic Vacuolation Not Reportable 11/02/18 00:40 Dohle Bodies Not Reportable 11/02/18 00:40 Pelger-Huet Anomaly Not Reportable 11/02/18 00:40 Kartik Rods Not Reportable 11/02/18 00:40 Platelet Estimate Consistent w auto 11/02/18 00:40 Clumped Platelets Not Reportable 11/02/18 00:40 Plt Clumps, EDTA Not Reportable 11/02/18 00:40 Large Platelets Not Reportable 11/02/18 00:40 Giant Platelets Not Reportable 11/02/18 00:40 Platelet Satelliting Not Reportable 11/02/18 00:40 Plt Morphology Comment Not Reportable 11/02/18 00:40 RBC Morphology Not Reportable 11/02/18 00:40 Dimorphic RBCs Not Reportable 11/02/18 00:40 Polychromasia Not Reportable 11/02/18 00:40 Hypochromasia 1+ 11/02/18 00:40 Poikilocytosis 1+ 11/02/18 00:40 Anisocytosis 1+ 11/02/18 00:40 Microcytosis 1+ 11/02/18 00:40 Macrocytosis Not Reportable 11/02/18 00:40 Spherocytes Not Reportable 11/02/18 00:40 Pappenheimer Bodies Not Reportable 11/02/18 00:40 Sickle Cells Not Reportable 11/02/18 00:40 Target Cells Not Reportable 11/02/18 00:40 Tear Drop Cells Not Reportable 11/02/18 00:40 Ovalocytes Not Reportable 11/02/18 00:40 Helmet Cells Not Reportable 11/02/18 00:40 Smith-Lignite Bodies Not Reportable 11/02/18 00:40 [place] Rings Not Reportable 11/02/18 00:40 [place] Cells Not Reportable 11/02/18 00:40 Bite Cells Not Reportable 11/02/18 00:40 Crenated Cell Not Reportable 11/02/18 00:40 Elliptocytes Not Reportable 11/02/18 00:40 Acanthocytes (Spur) Not Reportable 11/02/18 00:40 Rouleaux Not Reportable 11/02/18 00:40 Hemoglobin C Crystals Not Reportable 11/02/18 00:40 Schistocytes Rare 11/02/18 00:40 Malaria parasites Not Reportable 11/02/18 00:40 Jv Bodies Not Reportable 11/02/18 00:40 Hem Pathologist Commnt No 11/02/18 00:40 PT 14.5 Sec. (12.2-14.9) 10/15/18 00:59 INR 1.06 (0.87-1.13) 10/15/18 00:59 APTT 27.9 Sec. (24.2-36.6) 10/10/18 15:02 Thrombin Time 16.9 Sec. (15.1-19.6) 10/10/18 15:02 Heparin Anti-Xa, Unfract Negative (Negative) 10/25/18 05:59 POC ABG pH 7.535 (7.35-7.45) H 10/21/18 09:49 POC ABG pCO2 32.0 (35-45) L 10/21/18 09:49 POC ABG pO2 57 (80-105) L 10/21/18 09:49 POC ABG HCO3 27.1 10/21/18 09:49 POC ABG Total CO2 28 10/21/18 09:49 POC ABG O2 Sat 93 10/21/18 09:49 POC ABG Base Excess 4 10/21/18 09:49 FiO2 21 % 10/21/18 09:49 Sodium 141 mmol/L (137-145) 11/02/18 03:58 Potassium 6.6 mmol/L (3.6-5.0) H* 11/02/18 05:01 Chloride 91.6 mmol/L (98-107) L 11/02/18 03:58 Carbon Dioxide 16 mmol/L (22-30) L 11/02/18 03:58 Anion Gap 40 mmol/L 11/02/18 03:58 BUN 123 mg/dL (9-20) H 11/02/18 03:58 Creatinine 13.8 mg/dL (0.8-1.5) H 11/02/18 03:58 Estimated GFR 5 ml/min 11/02/18 03:58 BUN/Creatinine Ratio 9 % 11/02/18 03:58 Glucose 107 mg/dL (75-100) H 11/02/18 03:58 POC Glucose 139 (70-105) H 10/20/18 13:07 Osmolality 338 Mosm/kg 10/11/18 17:35 Lactic Acid 1.80 mmol/L (0.7-2.0) 10/12/18 05:59 Uric Acid 13.4 mg/dL (3.5-7.6) H 10/11/18 17:36 Calcium 7.9 mg/dL (8.4-10.2) L 11/02/18 03:58 Phosphorus 8.30 mg/dL (2.5-4.5) H 10/25/18 10:00 Magnesium 3.10 mg/dL (1.7-2.3) H 10/18/18 05:03 Iron 147 ug/dL (49-181) 10/11/18 17:36 TIBC 236 mcg/dL (250-450) L 10/11/18 17:36 Ferritin 31884.0 ng/mL (13.0-400.0) H 10/11/18 17:35 Total Bilirubin 0.40 mg/dL (0.1-1.2) 10/25/18 10:00 Direct Bilirubin 0.2 mg/dL (0-0.2) 10/16/18 04:07 Indirect Bilirubin 0.3 mg/dL 10/16/18 04:07 AST 46 units/L (5-40) H 10/25/18 10:00 ALT 21 units/L (7-56) 10/25/18 10:00 Alkaline Phosphatase 102 units/L (35-129) 10/25/18 10:00 Ammonia 25.0 umol/L (25-60) 10/17/18 14:59 Lactate Dehydrogenase 925 units/L (91-180) H 10/22/18 05:51 Troponin T 0.272 ng/mL (0.00-0.029) H* 10/10/18 18:07 NT-Pro-B Natriuret Pep 70365 pg/mL (0-450) H 10/10/18 15:42 Total Protein 8.1 g/dL (6.3-8.2) 10/25/18 10:00 Albumin 3.5 g/dL (3.9-5) L 10/25/18 10:00 Albumin/Globulin Ratio 0.8 % 10/25/18 10:00 Triglycerides 329 mg/dL (2-149) H 10/10/18 15:02 Cholesterol 234 mg/dL (50-199) H 10/10/18 15:02 LDL Cholesterol Direct 139 mg/dL (50-130) H 10/10/18 15:02 HDL Cholesterol 42 mg/dL (40-59) 10/10/18 15:02 Cholesterol/HDL Ratio 5.57 % 10/10/18 15:02 Serotonin Release Assay See scanned result 10/25/18 05:59 Vitamin B12 912.3 pg/mL (211-911) H 10/14/18 08:51 Folate 8.32 ng/mL (7.3-26.0) 10/14/18 08:51 PTH Intact 388.7 pg/mL (15-65) H 10/25/18 10:00 Urine Creatinine 30.8 mg/dL (0.1-20.0) H 10/13/18 04:43 Urine Sodium 106 mmol/L 10/13/18 04:43 Urine Total Protein 75 mg/dL (5-11.8) H 10/13/18 04:43 CSF Appearance Clear 10/16/18 15:00 CSF Color Colorless 10/16/18 15:00 CSF WBC 4 /mm3 (1-10) 10/16/18 15:00 CSF RBC 113 /mm3 (0-0) 10/16/18 15:00 CSF Seg Neutrophils 8.0 % (0-6) 10/16/18 15:00 CSF Lymphocytes % 76.0 % (40-80) 10/16/18 15:00 CSF Reactive Lymphs 2.0 % 10/16/18 15:00 CSF Monocytes % 14.0 % (15-45) 10/16/18 15:00 CSF Eosinophils % 0 % 10/16/18 15:00 CSF Basophils 0 % 10/16/18 15:00 CSF Pathologist Review C 10/16/18 15:00 CSF Glucose 73 mg/dL 10/16/18 15:00 CSF Total Protein 55 mg/dL 10/16/18 15:00 CSF VDRL Nonreactive (Nonreactive) 10/16/18 15:00 Random Vancomycin 18.9 ug/mL (0-40.0) 10/29/18 07:13 Immunofix Electrophor see below 10/11/18 17:36 RENO Screen Negative (Negative) 10/21/18 15:07 Proteinase 3 (PR3) Ab <1.0 AI (<1.0) 10/21/18 15:07 Myeloperoxidase Ab <1.0 AI (<1.0) 10/21/18 15:07 Heparin-induced Plt Ab Negative (Negative) 10/25/18 05:59 UF Heparin High Dose 0 % Release 10/25/18 05:59 VJ UFH Low Dose 0.1 0 % Release 10/25/18 05:59 VJ UFH Low Dose 0.5 14 % Release 10/25/18 05:59 Lymph Enumerat CD4/CD8 0.01 (0.86-5.00) L 10/11/18 17:36 % CD3 Cells 85 % (57-85) 10/11/18 17:36 Absolute CD3 Count 226 cells/uL (840-3060) L 10/11/18 17:36 % CD4 Cells 1 % (30-61) L 10/11/18 17:36 Absolute CD4 Count 3 cells/uL (490-1740) L 10/11/18 17:36 % CD8 Cells 82 % (12-42) H 10/11/18 17:36 Absolute CD8 Count 228 cells/uL (180-1170) 10/11/18 17:36 % CD19 Cells 6 % (6-29) 10/11/18 17:36 Absolute CD19 Count 16 cells/uL (110-660) L 10/11/18 17:36 RPR Titer 1:32 10/11/18 17:37 RPR Reactive (Nonreactive) 10/11/18 17:37 T.pallidum Ab (FTA-ABS) Reactive (Nonreactive) H 10/12/18 Unknown CMV DNA PCR log photostatic copy maker/mL See scanned result 10/24/18 17:47 Hepatitis A IgM Ab Non-reactive (NonReactive) 10/11/18 17:34 Hep Bs Antigen Non-reactive (Negative) 10/11/18 17:34 Hep B Core IgM Ab Non-reactive (NonReactive) 10/11/18 17:34 Hepatitis C Antibody Non-reactive (NonReactive) 10/11/18 17:34 HIV-1 RNA PCR copies/ml 816084 Copies/mL H 10/11/18 17:36 HIV-1 RNA (PCR) log 5.51 Log cps/mL H 10/11/18 17:36 Toxoplasma IgG Ab <7.20 IU/mL (<7.20) 10/13/18 07:54 Miscellaneous Test Flexitest 1 10/31/18 06:43 Blood Type A POSITIVE 10/23/18 09:12 Antibody Screen Negative 10/23/18 09:12 Crossmatch See Detail 10/23/18 09:12 Active Medications - Current Medications Current Medications: Generic Name Dose Route Start Last Admin Trade Name Freq PRN Reason Stop Dose Admin Acetaminophen 500 mg 10/16/18 10:02 10/29/18 17:08 Tylenol PO 500 mg Q6H PRN Administration Fever >101 Albuterol 2.5 mg 10/10/18 18:12 Proventil IH Q3HRT PRN Shortness Of Breath Albuterol/Ipratropium 1 ampul 10/25/18 08:00 11/02/18 08:09 Duoneb *Not For Prn Use* IH 1 ampul TIDRT RUBI Administration Amlodipine Besylate 10 mg 10/11/18 10:00 11/02/18 11:30 Norvasc PO Not Given QDAY RUBI Lipase/Protease/Amylase 1 each 10/11/18 12:58 Pancreebcka Reed 10,500 Unit FEEDTUBE PRN PRN For Clogged Feeding Tube Arformoterol Tartrate 15 mcg 10/20/18 11:45 11/02/18 08:09 Blade Menendez IH Not Given Q12HRT RUBI Atovaquone 750 mg 10/18/18 10:00 11/02/18 11:30 Mepron PO Not Given BID RUBI Carvedilol 12.5 mg 10/22/18 22:00 11/02/18 11:30 Coreg PO Not Given BID [facility] Darunavir 800 mg 10/30/18 18:00 11/01/18 10:00 Prezista PO Not Given QDAY [facility] Emtricitabine 200 mg 11/01/18 10:00 11/01/18 10:00 Emtriva PO Not Given Q48HR [facility] Haloperidol Lactate 5 mg 10/13/18 19:45 10/20/18 21:08 Haldol IV 5 mg Q6H PRN Administration Agitation Hydralazine HCl 10 mg 10/12/18 15:50 10/28/18 22:36 Apresoline IV 10 mg Q4HR PRN Administration SBP>175 or DBP>115 Hydrophilic Ointment 1 applic 10/10/18 17:53 Vaseline Lip Therapy TP Q2HR PRN Dry Lips Sodium Chloride 100 mls @ 999 mls/hr 10/31/18 08:00 Nacl 0.9% IV CHON PRN Hypotension Lansoprazole 30 mg 10/15/18 10:00 11/02/18 11:31 Prevacid Solutab FEEDTUBE Not Given BID [facility] Lorazepam 1 mg 10/13/18 19:48 10/21/18 04:09 Ativan IV 1 mg Q4H PRN Administration agitation Metoprolol Tartrate 5 mg 10/18/18 14:05 Lopressor IV Q6HR PRN Tachyarrhythmias Multi-Ingred Cream/Lotion/Oil/Oint 1 applic 10/10/18 17:53 Artificial Tears Ophth Oint OU Q4HR PRN Dry Eye(s) Multivitamins 1 each 10/11/18 10:00 11/01/18 10:00 Theragran Tab PO Not Given DAILY [facility] Ritonavir 100 mg 10/30/18 18:00 11/01/18 10:00 Norvir PO Not Given QDAY RUBI Simple Syrup 15 ml 10/11/18 12:58 Simple Syrup FEEDTUBE PRN PRN Hypoglycemia Simple Syrup 30 ml 10/11/18 12:58 Simple Syrup FEEDTUBE PRN PRN Hypoglycemia Sodium Bicarbonate 325 mg 10/11/18 12:58 Sodium Bicarbonate FEEDTUBE PRN PRN For Clogged Feeding Tube Sodium Chloride 10 ml 10/10/18 22:00 11/01/18 22:22 Sodium Chloride Flush Syringe 10 Ml IV 10 ml BID RUBI Administration Sodium Chloride 10 ml 10/10/18 18:12 Sodium Chloride Flush Syringe 10 Ml IV PRN PRN LINE FLUSH Tenofovir Disoproxil Fumarate 300 mg 10/30/18 17:45 10/30/18 20:09 Viread PO 300 mg Q96H RUBI Administration Nutrition/Malnutrition Assess - Dietary Evaluation Nutrition/Malnutrition Findings: Nutrition Notes Start: 10/11/18 11:14 Freq: Status: Active Protocol: Document 11/01/18 14:39 RM (Rec: 11/01/18 14:53 RM [id number]) Nutrition Notes Initial or Follow up Reassessment Current Diagnosis Acute Kidney Injury,CKD(stage I-IV),Hypertension,Stroke Other Pertinent Diagnosis on HD, Acute encephalopathy, HIV/AIDS, Syphilis, dysphagia Current Diet NPO Labs/Tests Reviewed Pertinent Medications Reviewed Height 5 ft 9 in Weight 51.5 kg [place] Body Weight (kg) 72.72 BMI 16.7 Weight change and time frame Current wt obtained from [facility]. Previous wt likely inaccurate or d/t fluid change . Subjective/Other Information Recorded PO intake 42% X 3 meals. Tech unsure if pt drank Nepro prior to NPO status. Pt planned to start HD per progress note 11/01/18. Percent of energy/protein needs met: 53%/52% Burn Absent Trauma Absent #1 Nutrition Diagnosis Inadequate oral intake Diagnosis Progress(for reassessment Continues documentation) Is patient on ventilator? No Is Patient Ambulatory and/or Out of Bed No REE-([facility]-confined to bed) [phone] Calculation Used for Recommendations [facility] Additional Notes Pro needs 1.2-1.5g/k-79g/ day Fluid needs 1ml/kcal Nutrition Intervention Change Diet Order: Advance diet when medically able Add Supplement/Snack (indicate name/kcal Nepro 1 daily once diet /protein ) advanced Provides kCal: 425 Provides Protein (gm) 19 Goal #1 Meet at least 75% of calorie and protein needs via PO and ONS intakes Anticipated Discharge Needs: Pureed, Renal diet Follow-Up By: 11/06/18 Additional Comments Follow for PO and ONS intakes
[2018-11-02] MEDS: SODIUM CHLORIDE FLUSH SYRINGE 10 ML IV SCH (15:25)
--- NOTE | 2018-11-02 17:39 | Progress Note ---
Assessment and Plan Assessment: * Acute kidney injury secondary to ATN vs HIVAN * HIV/AIDS * Acute encephalopathy * Acute hypoxic respiratory failure * Hx of urinary retention * Hypertension Plan: * BUN persistently elevated, in addition, K not significantly improved despite dialysis - likely due to recirculation related to femoral vas cath; needs more permanent access * Vascular surgery following * Will order daily HD for now * UF as tolerated * ID recommendations reviewed - antiretroviral treatment started 10/30 * Monitor for evidence of recovery * Epogen TIW prn * Continue antiHTN medications . Subjective Date of service: 11/02/18 Principal diagnosis: hiv - anemia Interval history: No acute events overnight. Objective - Vital Signs Vital signs: Vital Signs - 12hr 11/02/18 11/02/18 11/02/18 08:09 08:26 10:00 Temperature 98.0 F Pulse Rate 114 H Pulse Rate [ 114 H 115 H Bilateral Throughout] Respiratory 20 Rate Respiratory 18 20 Rate [Bilateral Throughout] Blood Pressure 135/86 O2 Sat by Pulse 100 Oximetry 11/02/18 11/02/18 11/02/18 10:15 10:30 10:45 Temperature Pulse Rate 117 H 114 H 125 H Pulse Rate [ Bilateral Throughout] Respiratory Rate Respiratory Rate [Bilateral Throughout] Blood Pressure 136/83 101/57 129/78 O2 Sat by Pulse Oximetry 11/02/18 11/02/18 11/02/18 11:00 11:15 11:30 Temperature Pulse Rate 125 H 125 H 129 H Pulse Rate [ Bilateral Throughout] Respiratory Rate Respiratory Rate [Bilateral Throughout] Blood Pressure 121/77 121/77 128/72 O2 Sat by Pulse Oximetry 11/02/18 11/02/18 11/02/18 11:45 12:00 12:15 Temperature Pulse Rate 127 H 129 H 132 H Pulse Rate [ Bilateral Throughout] Respiratory Rate Respiratory Rate [Bilateral Throughout] Blood Pressure 125/75 116/73 142/79 O2 Sat by Pulse Oximetry 11/02/18 11/02/18 11/02/18 12:30 12:45 13:00 Temperature Pulse Rate 129 H 130 H 130 H Pulse Rate [ Bilateral Throughout] Respiratory Rate Respiratory Rate [Bilateral Throughout] Blood Pressure 114/70 133/76 121/76 O2 Sat by Pulse Oximetry 11/02/18 11/02/18 11/02/18 13:15 13:30 13:45 Temperature Pulse Rate 132 H 128 H 126 H Pulse Rate [ Bilateral Throughout] Respiratory Rate Respiratory Rate [Bilateral Throughout] Blood Pressure 113/77 121/68 112/65 O2 Sat by Pulse Oximetry 11/02/18 11/02/18 11/02/18 14:00 14:15 14:30 Temperature Pulse Rate 126 H 130 H 132 H Pulse Rate [ Bilateral Throughout] Respiratory Rate Respiratory Rate [Bilateral Throughout] Blood Pressure 117/72 121/80 113/74 O2 Sat by Pulse Oximetry 11/02/18 11/02/18 11/02/18 14:39 15:22 15:39 Temperature Pulse Rate 130 H Pulse Rate [ 127 H 133 H Bilateral Throughout] Respiratory Rate Respiratory 20 20 Rate [Bilateral Throughout] Blood Pressure 124/76 O2 Sat by Pulse Oximetry - General Appearance General appearance: chronically ill, frail EENT: ATNC, mucous membranes dry Respiratory: Present: Clear to Ascultation Cardiology: tachycardia, S1S2 Gastrointestinal: normal, no tenderness, no distended Integumentary: no rash, warm and dry Neurologic: no focal deficit Musculoskeletal: other (no edema) Psychiatric: cooperative - Lab 11/02/18 00:40 11/02/18 05:01 Most recent lab results Calcium 7.9 mg/dL (8.4-10.2) L 11/02/18 03:58 Phosphorus 8.30 mg/dL (2.5-4.5) H 10/25/18 10:00 Magnesium 3.10 mg/dL (1.7-2.3) H 10/18/18 05:03 Urine Creatinine 30.8 mg/dL (0.1-20.0) H 10/13/18 04:43 Urine Sodium 106 mmol/L 10/13/18 04:43 Urine Total Protein 75 mg/dL (5-11.8) H 10/13/18 04:43 Medications & Allergies - Medications Allergies/Adverse Reactions: Allergies Sulfa (Sulfonamide Antibiotics) Allergy (Verified 10/10/18 16:54) Unknown Home Medications: Home Medications Medication Instructions Recorded Confirmed Last Taken Type Acetaminophen [Tylenol] 1,000 mg PO Q6HR 10/10/18 10/10/18 Unknown History Amlodipine Besylate [Norvasc] 10 mg PO QDAY 10/10/18 10/10/18 Unknown History Aspirin [Adult Aspirin] 81 mg PO DAILY 10/10/18 10/10/18 Unknown History Atorvastatin [Lipitor Tab] 80 mg PO DAILY 10/10/18 10/10/18 Unknown History Losartan [Cozaar] 100 mg PO QDAY 10/10/18 10/10/18 Unknown History Multivitamin [Multiple Vitamins] 1 each PO DAILY 10/10/18 10/10/18 Unknown History hydroCHLOROthiazide [HCTZ] 25 mg PO QDAY 10/10/18 10/10/18 Unknown History Active Medications: Generic Name Dose Route Start Last Admin Trade Name Freq PRN Reason Stop Dose Admin Acetaminophen 500 mg 10/16/18 10:02 10/29/18 17:08 Tylenol PO 500 mg Q6H PRN Administration Fever >101 Albuterol 2.5 mg 10/10/18 18:12 Proventil IH Q3HRT PRN Shortness Of Breath Albuterol/Ipratropium 1 ampul 10/25/18 08:00 11/02/18 15:22 Duoneb *Not For Prn Use* IH 1 ampul TIDRT RUBI Administration Amlodipine Besylate 10 mg 10/11/18 10:00 11/02/18 11:30 Norvasc PO Not Given QDAY [facility] Lipase/Protease/Amylase 1 each 10/11/18 12:58 Pancrebecka Reed 10,500 Unit FEEDTUBE PRN PRN For Clogged Feeding Tube Arformoterol Tartrate 15 mcg 10/20/18 11:45 11/02/18 08:09 Blade Menendez IH Not Given Q12HRT RUBI Atovaquone 750 mg 10/18/18 10:00 11/02/18 11:30 Mepron PO Not Given BID RUBI Carvedilol 12.5 mg 10/22/18 22:00 11/02/18 11:30 Coreg PO Not Given BID RUBI Darunavir 800 mg 10/30/18 18:00 11/01/18 10:00 Prezista PO Not Given QDAY RUBI Emtricitabine 200 mg 11/01/18 10:00 11/01/18 10:00 Emtriva PO Not Given Q48HR RUBI Haloperidol Lactate 5 mg 10/13/18 19:45 10/20/18 21:08 Haldol IV 5 mg Q6H PRN Administration Agitation Hydralazine HCl 10 mg 10/12/18 15:50 10/28/18 22:36 Apresoline IV 10 mg Q4HR PRN Administration SBP>175 or DBP>115 Hydrophilic Ointment 1 applic 10/10/18 17:53 Vaseline Lip Therapy TP Q2HR PRN Dry Lips Sodium Chloride 100 mls @ 999 mls/hr 10/31/18 08:00 Nacl 0.9% IV CHON PRN Hypotension Lansoprazole 30 mg 10/15/18 10:00 11/02/18 11:31 Prevacid Solutab FEEDTUBE Not Given BID RUBI Lorazepam 1 mg 10/13/18 19:48 10/21/18 04:09 Ativan IV 1 mg Q4H PRN Administration agitation Metoprolol Tartrate 5 mg 10/18/18 14:05 Lopressor IV Q6HR PRN Tachyarrhythmias Multi-Ingred Cream/Lotion/Oil/Oint 1 applic 10/10/18 17:53 Artificial Tears Ophth Oint OU Q4HR PRN Dry Eye(s) Multivitamins 1 each 10/11/18 10:00 11/01/18 10:00 Theragran Tab PO Not Given DAILY RUBI Nystatin 100,000 unit 11/02/18 18:00 Nystatin PO QID RUBI Ritonavir 100 mg 10/30/18 18:00 11/01/18 10:00 Norvir PO Not Given QDAY RUBI Simple Syrup 15 ml 10/11/18 12:58 Simple Syrup FEEDTUBE PRN PRN Hypoglycemia Simple Syrup 30 ml 10/11/18 12:58 Simple Syrup FEEDTUBE PRN PRN Hypoglycemia Sodium Bicarbonate 325 mg 10/11/18 12:58 Sodium Bicarbonate FEEDTUBE PRN PRN For Clogged Feeding Tube Sodium Chloride 10 ml 10/10/18 22:00 11/02/18 15:25 Sodium Chloride Flush Syringe 10 Ml IV Not Given BID RUBI Sodium Chloride 10 ml 10/10/18 18:12 Sodium Chloride Flush Syringe 10 Ml IV PRN PRN LINE FLUSH Tenofovir Disoproxil Fumarate 300 mg 10/30/18 17:45 10/30/18 20:09 Viread PO 300 mg Q96H RUBI Administration
[2018-11-02] MEDS: NORVIR PO SCH (17:43)
[2018-11-02] MEDS: NYSTATIN PO SCH (17:43)
[2018-11-02] MEDS: THERAGRAN Tab PO SCH (17:43)
[2018-11-02] MEDS: PREZISTA PO SCH (17:43)
[2018-11-02] MEDS: TIVICAY PO SCH (17:43)
[2018-11-02] MEDS ORDERED: PROCRIT IV PRN (19:15)
[2018-11-02] MEDS ORDERED: HEPARIN IV PRN (19:15)
[2018-11-02] MEDS ORDERED: ALBURX 25% (ALBUMIN) IV PRN (19:15)
[2018-11-02] MEDS ORDERED: NACL 0.9% 100 ML IV PRN (19:15)
[2018-11-02] MEDS ORDERED: NACL 0.9 (PRIMING MACHINE ONLY DIALYSIS) MC ONE (19:16)
[2018-11-03] MEDS: COREG PO SCH ×2 (00:33→10:57)
[2018-11-03] MEDS: PREVACID SOLUTAB FEEDTUBE SCH ×3 (00:33→21:50)
[2018-11-03] MEDS: MEPRON PO SCH ×3 (00:44→21:49)
[2018-11-03] MEDS: NYSTATIN PO SCH ×5 (00:44→21:50)
[2018-11-03] MEDS: DUONEB *Not for PRN Use IH SCH ×3 (07:51→20:13)
[2018-11-03] MEDS: BROVANA NEBU IH SCH ×2 (07:51→20:21)
--- NOTE | 2018-11-03 08:01 | Progress Note ---
Assessment and Plan Assessment and plan: patient is 43 YO Male with HIV, hypertension, previous stroke, Nicotine Dependence, presents to ED for evaluation. Patient was confused and lethargic and unable to provide history. He was seen and evaluated in ED and found to be in distress and unable to protect his airway and was therefore intubated, placed on ventilator in ER then admitted MR brain 10/11 1. Study somewhat degraded by motion artifact. 2 Areas of edema in the basal ganglia and thalami bilaterally, within the jamari and in the cerebral hemispheres bilaterally in the subcortical and deep white matter and in portions of the cortex. 3. Areas of encephalomalacia in the basal ganglia bilaterally with evidence of previous hemorrhage or mineral deposition. 4. Numerous small foci of acute infarct in the basal ganglia bilaterally, subinsular regions bilaterally and medial temporal lobes bilaterally and possibly in the occipital cortex bilaterally. The above findings may be secondary to an infectious or noninfectious etiology with a component of vasculopathy or vasculitis resulting in infarcts. Viral encephalopathies and lymphoma would need to be considered in this patient with history of HIV. Neuro ams acute metabolic encephalopathy improving /Acute CVA with Bilateral infarcts with edema Consulted Neurology, he was evaluated by DR. Valentine. Could be due to possible vasculitis - further workup pending Dysphagia/ moderate malnutrition -MBS 10/23, recommended pureed with nectar thickened liquids Hematology Anemia- stable, thrombocytopenia, leukocytosis, coagulopathy; now resolved -Status post platelet and prbc transfusion, the patient had only few schistocytes on smear, ADAMS13 91% activity ID HIV/AIDS, CD4 count 3, HIV viral load 320,000 acute bacterial PNA, CMV viremia toxo neg, CSF neg Whole blood cmv PCR was positive at 1374 abx and a antiviral per ID high fever, cxr shows improvement of vasc congestion, fup blood cx, femoral Vas- Cath which is likely the source of infection was supposed to be removed after dialysis on Monday, discussed with vascular surgery, it'll hopefully be removed today after dialysis; patient needs permacath, now afebrile and BC neg per ID "-continue atovaquone 750 mg BID ,-continue HIV therapy: renally adjusted TDF, FTC along with dolutegravir and ritonavir boosted darunavir,-follow up HIV Genotype,-f/u 1,3 [id number]" FEN/Renal SHRUTHI- ATN, Hyperkalemia, urinary retention sp SPC on 10/12 cont HD per nephrology, no signs of renal recovery Pulm acute hypoxic resp failure on MV> 96 hours self extubated 10/16, continue supplemental oxygen CVS /Hypertensive urgency and acute systolic CHF He was treated with Cardene drip which was weaned off. Optimize medications for CHF on coreg, no mik due to high K, fluid removal by dialysis Skin Stage 2 sacral wound decub . The wound was measured at 5.0x4.0. Small serous sanguineous drainage noticed from the wound. no evidence of infection, cont wound care DVT ppx- scds, given that he pw thrombocytopenia History Interval history: Patient continues to have weakness of his voice, fevers now resolved Review of systems Constitutional: , no malaise, no joint pains CVS: No chest pain, no orthopnea, no dyspnea on exertion, no pedal edema GI: No abdominal pain, no diarrhea, no vomiting, no constipation Respiratory: No shortness of breath, no wheezing, no coughing Hospitalist Physical - Physical exam Narrative exam: General.: Appears well, no distress, nontoxic HEENT: Moist mucous membranes, extraocular muscles intact, no lymphadenopathy Neck: supple Cardiac: S1-S2 heard Lungs: clear to auscultation bilaterally Abdomen: soft , nontender, nondistended, bowel sounds positive Extremities: no edema clubbing or cyanosis Skin: no rash or lesions Neurologic: no gross focal deficits Psych: calm, and cooperative - Constitutional Vitals: Temp Pulse Resp BP Pulse Ox 98.7 F 122 H 20 156/105 99 11/03/18 04:55 11/03/18 07:51 11/03/18 07:51 11/03/18 04:55 11/03/18 07:51 General appearance: Present: no acute distress Results - Labs CBC & Chem 7: 11/02/18 00:40 11/03/18 06:12 Labs: Laboratory Last Values WBC 9.4 K/mm3 (4.5-11.0) 11/02/18 00:40 RBC 2.80 M/mm3 (3.65-5.03) L 11/02/18 00:40 Hgb 8.2 gm/dl (11.8-15.2) L 11/02/18 00:40 Hct 25.2 % (35.5-45.6) L 11/02/18 00:40 MCV 90 fl (84-94) 11/02/18 00:40 MCH 29 pg (28-32) 11/02/18 00:40 MCHC 32 % (32-34) 11/02/18 00:40 RDW 19.8 % (13.2-15.2) H 11/02/18 00:40 Plt Count 217 K/mm3 (140-440) 11/02/18 00:40 Add Manual Diff Complete 11/02/18 00:40 Total Counted 100 11/02/18 00:40 Seg Neuts % (Manual) 68.0 % (40.0-70.0) 11/02/18 00:40 Band Neutrophils % 4.0 % 11/02/18 00:40 Lymphocytes % (Manual) 15.0 % (13.4-35.0) 11/02/18 00:40 Reactive Lymphs % (Man) 2.0 % 11/02/18 00:40 Monocytes % (Manual) 11.0 % (0.0-7.3) H 11/02/18 00:40 Eosinophils % (Manual) 0 % (0.0-4.3) 11/02/18 00:40 Basophils % (Manual) 0 % (0.0-1.8) 11/02/18 00:40 Metamyelocytes % 0 % 11/02/18 00:40 Myelocytes % 0 % 11/02/18 00:40 Promyelocytes % 0 % 11/02/18 00:40 Blast Cells % 0 % 11/02/18 00:40 Nucleated RBC % 34.0 % (0.0-0.9) H 11/02/18 00:40 Seg Neutrophils # Man 6.4 K/mm3 (1.8-7.7) 11/02/18 00:40 Band Neutrophils # 0.4 K/mm3 11/02/18 00:40 Abs Lymphs (Manual) 267 cells/uL (850-3900) L 10/11/18 17:36 Lymphocytes # (Manual) 1.4 K/mm3 (1.2-5.4) 11/02/18 00:40 Abs React Lymphs (Man) 0.2 K/mm3 11/02/18 00:40 Monocytes # (Manual) 1.0 K/mm3 (0.0-0.8) H 11/02/18 00:40 Eosinophils # (Manual) 0.0 K/mm3 (0.0-0.4) 11/02/18 00:40 Basophils # (Manual) 0.0 K/mm3 (0.0-0.1) 11/02/18 00:40 Metamyelocytes # 0.0 K/mm3 11/02/18 00:40 Myelocytes # 0.0 K/mm3 11/02/18 00:40 Promyelocytes # 0.0 K/mm3 11/02/18 00:40 Blast Cells # 0.0 K/mm3 11/02/18 00:40 Pathologist Review 10/15/18 03:14 WBC Morphology Not Reportable 11/02/18 00:40 Hypersegmented Neuts Not Reportable 11/02/18 00:40 Hyposegmented Neuts Not Reportable 11/02/18 00:40 Hypogranular Neuts Not Reportable 11/02/18 00:40 Smudge Cells Not Reportable 11/02/18 00:40 Toxic Granulation Not Reportable 11/02/18 00:40 Toxic Vacuolation Not Reportable 11/02/18 00:40 Dohle Bodies Not Reportable 11/02/18 00:40 Pelger-Huet Anomaly Not Reportable 11/02/18 00:40 Kartik Rods Not Reportable 11/02/18 00:40 Platelet Estimate Consistent w auto 11/02/18 00:40 Clumped Platelets Not Reportable 11/02/18 00:40 Plt Clumps, EDTA Not Reportable 11/02/18 00:40 Large Platelets Not Reportable 11/02/18 00:40 Giant Platelets Not Reportable 11/02/18 00:40 Platelet Satelliting Not Reportable 11/02/18 00:40 Plt Morphology Comment Not Reportable 11/02/18 00:40 RBC Morphology Not Reportable 11/02/18 00:40 Dimorphic RBCs Not Reportable 11/02/18 00:40 Polychromasia Not Reportable 11/02/18 00:40 Hypochromasia 1+ 11/02/18 00:40 Poikilocytosis 1+ 11/02/18 00:40 Anisocytosis 1+ 11/02/18 00:40 Microcytosis 1+ 11/02/18 00:40 Macrocytosis Not Reportable 11/02/18 00:40 Spherocytes Not Reportable 11/02/18 00:40 Pappenheimer Bodies Not Reportable 11/02/18 00:40 Sickle Cells Not Reportable 11/02/18 00:40 Target Cells Not Reportable 11/02/18 00:40 Tear Drop Cells Not Reportable 11/02/18 00:40 Ovalocytes Not Reportable 11/02/18 00:40 Helmet Cells Not Reportable 11/02/18 00:40 Smith-[place] Bodies Not Reportable 11/02/18 00:40 Stanberry Rings Not Reportable 11/02/18 00:40 Jani Cells Not Reportable 11/02/18 00:40 Bite Cells Not Reportable 11/02/18 00:40 Crenated Cell Not Reportable 11/02/18 00:40 Elliptocytes Not Reportable 11/02/18 00:40 Acanthocytes (Spur) Not Reportable 11/02/18 00:40 Rouleaux Not Reportable 11/02/18 00:40 Hemoglobin C Crystals Not Reportable 11/02/18 00:40 Schistocytes Rare 11/02/18 00:40 Malaria parasites Not Reportable 11/02/18 00:40 Jv Bodies Not Reportable 11/02/18 00:40 Hem Pathologist Commnt No 11/02/18 00:40 PT 14.5 Sec. (12.2-14.9) 10/15/18 00:59 INR 1.06 (0.87-1.13) 10/15/18 00:59 APTT 27.9 Sec. (24.2-36.6) 10/10/18 15:02 Thrombin Time 16.9 Sec. (15.1-19.6) 10/10/18 15:02 Heparin Anti-Xa, Unfract Negative (Negative) 10/25/18 05:59 POC ABG pH 7.535 (7.35-7.45) H 10/21/18 09:49 POC ABG pCO2 32.0 (35-45) L 10/21/18 09:49 POC ABG pO2 57 (80-105) L 10/21/18 09:49 POC ABG HCO3 27.1 10/21/18 09:49 POC ABG Total CO2 28 10/21/18 09:49 POC ABG O2 Sat 93 10/21/18 09:49 POC ABG Base Excess 4 10/21/18 09:49 FiO2 21 % 10/21/18 09:49 Sodium 141 mmol/L (137-145) 11/02/18 03:58 Potassium 6.6 mmol/L (3.6-5.0) H* 11/02/18 05:01 Chloride 91.6 mmol/L (98-107) L 11/02/18 03:58 Carbon Dioxide 16 mmol/L (22-30) L 11/02/18 03:58 Anion Gap 40 mmol/L 11/02/18 03:58 BUN 123 mg/dL (9-20) H 11/02/18 03:58 Creatinine 13.8 mg/dL (0.8-1.5) H 11/02/18 03:58 Estimated GFR 5 ml/min 11/02/18 03:58 BUN/Creatinine Ratio 9 % 11/02/18 03:58 Glucose 107 mg/dL (75-100) H 11/02/18 03:58 POC Glucose 139 (70-105) H 10/20/18 13:07 Osmolality 338 Mosm/kg 10/11/18 17:35 Lactic Acid 1.80 mmol/L (0.7-2.0) 10/12/18 05:59 Uric Acid 13.4 mg/dL (3.5-7.6) H 10/11/18 17:36 Calcium 7.9 mg/dL (8.4-10.2) L 11/02/18 03:58 Phosphorus 8.30 mg/dL (2.5-4.5) H 10/25/18 10:00 Magnesium 3.10 mg/dL (1.7-2.3) H 10/18/18 05:03 Iron 147 ug/dL (49-181) 10/11/18 17:36 TIBC 236 mcg/dL (250-450) L 10/11/18 17:36 Ferritin 03466.0 ng/mL (13.0-400.0) H 10/11/18 17:35 Total Bilirubin 0.40 mg/dL (0.1-1.2) 10/25/18 10:00 Direct Bilirubin 0.2 mg/dL (0-0.2) 10/16/18 04:07 Indirect Bilirubin 0.3 mg/dL 10/16/18 04:07 AST 46 units/L (5-40) H 10/25/18 10:00 ALT 21 units/L (7-56) 10/25/18 10:00 Alkaline Phosphatase 102 units/L (35-129) 10/25/18 10:00 Ammonia 25.0 umol/L (25-60) 10/17/18 14:59 Lactate Dehydrogenase 925 units/L (91-180) H 10/22/18 05:51 Troponin T 0.272 ng/mL (0.00-0.029) H* 10/10/18 18:07 NT-Pro-B Natriuret Pep 21449 pg/mL (0-450) H 10/10/18 15:42 Total Protein 8.1 g/dL (6.3-8.2) 10/25/18 10:00 Albumin 3.5 g/dL (3.9-5) L 10/25/18 10:00 Albumin/Globulin Ratio 0.8 % 10/25/18 10:00 Triglycerides 329 mg/dL (2-149) H 10/10/18 15:02 Cholesterol 234 mg/dL (50-199) H 10/10/18 15:02 LDL Cholesterol Direct 139 mg/dL (50-130) H 10/10/18 15:02 HDL Cholesterol 42 mg/dL (40-59) 10/10/18 15:02 Cholesterol/HDL Ratio 5.57 % 10/10/18 15:02 Serotonin Release Assay See scanned result 10/25/18 05:59 Vitamin B12 912.3 pg/mL (211-911) H 10/14/18 08:51 Folate 8.32 ng/mL (7.3-26.0) 10/14/18 08:51 PTH Intact 388.7 pg/mL (15-65) H 10/25/18 10:00 Urine Creatinine 30.8 mg/dL (0.1-20.0) H 10/13/18 04:43 Urine Sodium 106 mmol/L 10/13/18 04:43 Urine Total Protein 75 mg/dL (5-11.8) H 10/13/18 04:43 CSF Appearance Clear 10/16/18 15:00 CSF Color Colorless 10/16/18 15:00 CSF WBC 4 /mm3 (1-10) 10/16/18 15:00 CSF RBC 113 /mm3 (0-0) 10/16/18 15:00 CSF Seg Neutrophils 8.0 % (0-6) 10/16/18 15:00 CSF Lymphocytes % 76.0 % (40-80) 10/16/18 15:00 CSF Reactive Lymphs 2.0 % 10/16/18 15:00 CSF Monocytes % 14.0 % (15-45) 10/16/18 15:00 CSF Eosinophils % 0 % 10/16/18 15:00 CSF Basophils 0 % 10/16/18 15:00 CSF Pathologist Review C 10/16/18 15:00 CSF Glucose 73 mg/dL 10/16/18 15:00 CSF Total Protein 55 mg/dL 10/16/18 15:00 CSF VDRL Nonreactive (Nonreactive) 10/16/18 15:00 Random Vancomycin 18.9 ug/mL (0-40.0) 10/29/18 07:13 Immunofix Electrophor see below 10/11/18 17:36 RENO Screen Negative (Negative) 10/21/18 15:07 Proteinase 3 (PR3) Ab <1.0 AI (<1.0) 10/21/18 15:07 Myeloperoxidase Ab <1.0 AI (<1.0) 10/21/18 15:07 Heparin-induced Plt Ab Negative (Negative) 10/25/18 05:59 UF Heparin High Dose 0 % Release 10/25/18 05:59 VJ UFH Low Dose 0.1 0 % Release 10/25/18 05:59 VJ UFH Low Dose 0.5 14 % Release 10/25/18 05:59 Lymph Enumerat CD4/CD8 0.01 (0.86-5.00) L 10/11/18 17:36 % CD3 Cells 85 % (57-85) 10/11/18 17:36 Absolute CD3 Count 226 cells/uL (840-3060) L 10/11/18 17:36 % CD4 Cells 1 % (30-61) L 10/11/18 17:36 Absolute CD4 Count 3 cells/uL (490-1740) L 10/11/18 17:36 % CD8 Cells 82 % (12-42) H 10/11/18 17:36 Absolute CD8 Count 228 cells/uL (180-1170) 10/11/18 17:36 % CD19 Cells 6 % (6-29) 10/11/18 17:36 Absolute CD19 Count 16 cells/uL (110-660) L 10/11/18 17:36 RPR Titer 1:32 10/11/18 17:37 RPR Reactive (Nonreactive) 10/11/18 17:37 T.pallidum Ab (FTA-ABS) Reactive (Nonreactive) H 10/12/18 Unknown 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 See scanned result 10/24/18 17:47 Hepatitis A IgM Ab Non-reactive (NonReactive) 10/11/18 17:34 Hep Bs Antigen Non-reactive (Negative) 10/11/18 17:34 Hep B Core IgM Ab Non-reactive (NonReactive) 10/11/18 17:34 Hepatitis C Antibody Non-reactive (NonReactive) 10/11/18 17:34 HIV-1 RNA PCR copies/ml 276534 Copies/mL H 10/11/18 17:36 HIV-1 RNA (PCR) log 5.51 Log cps/mL H 10/11/18 17:36 Toxoplasma IgG Ab <7.20 IU/mL (<7.20) 10/13/18 07:54 Miscellaneous Test Flexitest 1 10/31/18 06:43 Blood Type A POSITIVE 10/23/18 09:12 Antibody Screen Negative 10/23/18 09:12 Crossmatch See Detail 10/23/18 09:12 Active Medications - Current Medications Current Medications: Generic Name Dose Route Start Last Admin Trade Name Freq PRN Reason Stop Dose Admin Acetaminophen 500 mg 10/16/18 10:02 10/29/18 17:08 Tylenol PO 500 mg Q6H PRN Administration Fever >101 Albumin Human 25 gm 11/02/18 19:15 Alburx 25% (Albumin) IV CHON PRN Hypotension Albuterol 2.5 mg 10/10/18 18:12 Proventil IH Q3HRT PRN Shortness Of Breath Albuterol/Ipratropium 1 ampul 10/25/18 08:00 11/03/18 07:51 Duoneb *Not For Prn Use* IH 1 ampul TIDRT RUBI Administration Amlodipine Besylate 10 mg 10/11/18 10:00 11/02/18 11:30 Norvasc PO Not Given QDAY RUBI Lipase/Protease/Amylase 1 each 10/11/18 12:58 Pancreaze 10,500 Unit FEEDTUBE PRN PRN For Clogged Feeding Tube Arformoterol Tartrate 15 mcg 10/20/18 11:45 11/03/18 07:51 Brorussell Bluntu IH 15 mcg Q12HRT RUBI Administration Atovaquone 750 mg 10/18/18 10:00 11/03/18 00:44 Mepron PO 750 mg BID RUBI Administration Carvedilol 12.5 mg 10/22/18 22:00 11/03/18 00:33 Coreg PO 12.5 mg BID RUBI Administration Darunavir 800 mg 10/30/18 18:00 11/02/18 17:43 Prezista PO Not Given QDAY RUBI Emtricitabine 200 mg 11/01/18 10:00 11/01/18 10:00 Emtriva PO Not Given Q48HR [facility] Epoetin Dany 10,000 unit 11/02/18 19:15 Procrit IV CHON PRN hemodialysis Haloperidol Lactate 5 mg 10/13/18 19:45 10/20/18 21:08 Haldol IV 5 mg Q6H PRN Administration Agitation Heparin Sodium (Porcine) 5,000 unit 11/02/18 19:15 Heparin IV CHON PRN hemodialysis Hydralazine HCl 10 mg 10/12/18 15:50 10/28/18 22:36 Apresoline IV 10 mg Q4HR PRN Administration SBP>175 or DBP>115 Hydrophilic Ointment 1 applic 10/10/18 17:53 Vaseline Lip Therapy TP Q2HR PRN Dry Lips Sodium Chloride 100 mls @ 999 mls/hr 10/31/18 08:00 Nacl 0.9% IV CHON PRN Hypotension Sodium Chloride 100 mls @ 999 mls/hr 11/02/18 19:15 Nacl 0.9% IV CHON PRN Hypotension Lansoprazole 30 mg 10/15/18 10:00 11/03/18 00:33 Prevacid Solutab FEEDTUBE 30 mg BID RUBI Administration Lorazepam 1 mg 10/13/18 19:48 10/21/18 04:09 Ativan IV 1 mg Q4H PRN Administration agitation Metoprolol Tartrate 5 mg 10/18/18 14:05 Lopressor IV Q6HR PRN Tachyarrhythmias Multi-Ingred Cream/Lotion/Oil/Oint 1 applic 10/10/18 17:53 Artificial Tears Ophth Oint OU Q4HR PRN Dry Eye(s) Multivitamins 1 each 10/11/18 10:00 11/02/18 17:43 Theragran Tab PO Not Given DAILY RUBI Nystatin 100,000 unit 11/02/18 18:00 11/03/18 00:44 Nystatin PO 100,000 unit QID RUBI Administration Ritonavir 100 mg 10/30/18 18:00 11/02/18 17:43 Norvir PO Not Given QDAY RUBI Simple Syrup 15 ml 10/11/18 12:58 Simple Syrup FEEDTUBE PRN PRN Hypoglycemia Simple Syrup 30 ml 10/11/18 12:58 Simple Syrup FEEDTUBE PRN PRN Hypoglycemia Sodium Bicarbonate 325 mg 10/11/18 12:58 Sodium Bicarbonate FEEDTUBE PRN PRN For Clogged Feeding Tube Sodium Chloride 10 ml 10/10/18 22:00 11/02/18 15:25 Sodium Chloride Flush Syringe 10 Ml IV Not Given BID RUBI Sodium Chloride 10 ml 10/10/18 18:12 Sodium Chloride Flush Syringe 10 Ml IV PRN PRN LINE FLUSH Tenofovir Disoproxil Fumarate 300 mg 10/30/18 17:45 10/30/18 20:09 Viread PO 300 mg Q96H RUBI Administration Nutrition/Malnutrition Assess - Dietary Evaluation Nutrition/Malnutrition Findings: Nutrition Notes Start: 10/11/18 11:14 Freq: Status: Active Protocol: Document 11/01/18 14:39 RM (Rec: 11/01/18 14:53 RM [id number]) Nutrition Notes Initial or Follow up Reassessment Current Diagnosis Acute Kidney Injury,CKD(stage I-IV),Hypertension,Stroke Other Pertinent Diagnosis on HD, Acute encephalopathy, HIV/AIDS, Syphilis, dysphagia Current Diet NPO Labs/Tests Reviewed Pertinent Medications Reviewed Height 5 ft 9 in Weight 51.5 kg [place] Body Weight (kg) 72.72 BMI 16.7 Weight change and time frame Current wt obtained from [facility]. Previous wt likely inaccurate or d/t fluid change . Subjective/Other Information Recorded PO intake 42% X 3 meals. Tech unsure if pt drank Nepro prior to NPO status. Pt planned to start HD per progress note 11/01/18. Percent of energy/protein needs met: 53%/52% Burn Absent Trauma Absent #1 Nutrition Diagnosis Inadequate oral intake Diagnosis Progress(for reassessment Continues documentation) Is patient on ventilator? No Is Patient Ambulatory and/or Out of Bed No REE-([facility]-confined to bed) [phone] Calculation Used for Recommendations [facility] Additional Notes Pro needs 1.2-1.5g/k-79g/ day Fluid needs 1ml/kcal Nutrition Intervention Change Diet Order: Advance diet when medically able Add Supplement/Snack (indicate name/kcal Nepro 1 daily once diet /protein ) advanced Provides kCal: 425 Provides Protein (gm) 19 Goal #1 Meet at least 75% of calorie and protein needs via PO and ONS intakes Anticipated Discharge Needs: Pureed, Renal diet Follow-Up By: 11/06/18 Additional Comments Follow for PO and ONS intakes
[2018-11-03 09:08] LABS: Calcium 8.8 mg/dL (8.4-10.2)
[2018-11-03] MEDS: EMTRIVA PO SCH (10:56)
[2018-11-03] MEDS: NORVASC PO SCH (10:57)
[2018-11-03] MEDS: NORVIR PO SCH (10:57)
[2018-11-03] MEDS: PREZISTA PO SCH (10:57)
[2018-11-03] MEDS: THERAGRAN Tab PO SCH (10:57)
[2018-11-03] MEDS: TIVICAY PO SCH (10:57)
[2018-11-03] MEDS: SODIUM CHLORIDE FLUSH SYRINGE 10 ML IV SCH (10:58)
--- NOTE | 2018-11-03 11:10 | Hem/Onc Progress Note ---
Assessment and Plan 1. Anemia. At admission, hemoglobin was 8.1, later low and s/p Transfusion support. 2. Platelets at admission was 20. 3. White cell count was elevated. 4. PT/INR h/o slightly elevated. 5. Renal failure. 6. ALT elevated. 7. The patient has multiple medical issues. PLAN: I will ask for a smear evaluation. I will call the lab for same. Supportive care in the interim while we looked for primary etiology. 3 - plt better - s/p transfusion d/w dr rain and dr carrillo 10/14 - low plt - rasta ctive bleed suprapubic catheter 10/15 - plt were rising and again going down' pt had got plt transfusion LDH high - [id number] ordered smear - ordererd LDH may be high in other causes too - renal etc 10/16 - d/w path - not many schistocytes on smear - ADAMTS 13 ordered extubated 10/17 - plt low - path review ordered d/w armin monsalve 10/18 - path report pending plt low - but no active bleeding 10/19 - pt more alert - follows commands no bleeding 10/20 pt SOB - d/w Dr Monsalve and RN plt low - but no bleeding NGT+ more awake 10/21 - pt in [facility] plt >100 - more awake 10/22 - clinically better - moves all 4 limbs 10/23 - clinically stable - prbc suport 10/24 - as per RN -pt passed barium - for thickened diet pt has suprapubic got PRBC plt improving 10/25 - clinically better no active bleeding 10/26 - moving all extremity -communicating repeat cbc 10/27 - labs better - clinically improving 10/28 - plt now normal - hb better - s/p PRBC recent CKD may have a role 10/29 - pt clinically stable - strap buckler abn - electrolyte abn 10/30 - cbc improving - pt had question reg rectal tube - he will d/w other MDs 10/31 - plt better - hb better - OP follow up an option 11/01 - labs follow up 11/02 anemia d/w rn - rectal tube - decubiti suprapubic HD cath change planned 11/03/2018 pt getting HD rectal tube present - Patient Problems (1) Thrombocytopenia associated with AIDS Current Visit: Yes Status: Acute (2) Anemia Current Visit: Yes Status: Acute Qualifiers: Anemia type: due to chronic kidney disease Chronic kidney disease stage: unspecified stage Qualified Code(s): N18.9 - Chronic kidney disease, unspecified; D63.1 - Anemia in chronic kidney disease Subjective Date of service: 11/03/18 Principal diagnosis: anemia Objective - Constitutional Vitals: Last Vital Signs Temp 98.7 F 11/03/18 04:55 Pulse 125 H 11/03/18 08:01 Resp 20 11/03/18 08:01 BP 156/105 11/03/18 04:55 Pulse Ox 99 11/03/18 07:51 Pain Intensity (0-10): denies any pain General appearance: no acute distress Performance status: 4-completely disabled - EENT Eyes: EOM intact ENT: clear oral mucosa - Respiratory Respiratory: bilateral: diminished (poor effort) - Cardiovascular Heart Sounds: Present: S1 & S2 Extremities: No edema - Gastrointestinal General gastrointestinal: Present: soft, non-tender Rectal Exam: deferred - Genitourinary Male genitourinary: Present: deferred - Musculoskeletal Musculoskeletal: generalized weakness - Neurologic Neurologic: moves all extremities - Labs Lab Results: Laboratory Results - last 24 hr 10/31/18 11/03/18 06:43 06:12 Sodium 140 Potassium 6.0 H Chloride 91.7 L Carbon Dioxide 18 L Anion Gap 36 BUN 86 H Creatinine 10.5 H Estimated GFR 7 BUN/Creatinine Ratio 8 Glucose 111 H Calcium 8.8 Miscellaneous Test Flexitest 1 Medications & Allergies - Medications Allergies/Adverse Reactions: Allergies Sulfa (Sulfonamide Antibiotics) Allergy (Verified 10/10/18 16:54) Unknown Home Medications: Home Medications Medication Instructions Recorded Confirmed Last Taken Type Acetaminophen [Tylenol] 1,000 mg PO Q6HR 10/10/18 10/10/18 Unknown History Amlodipine Besylate [Norvasc] 10 mg PO QDAY 10/10/18 10/10/18 Unknown History Aspirin [Adult Aspirin] 81 mg PO DAILY 10/10/18 10/10/18 Unknown History Atorvastatin [Lipitor Tab] 80 mg PO DAILY 10/10/18 10/10/18 Unknown History Losartan [Cozaar] 100 mg PO QDAY 10/10/18 10/10/18 Unknown History Multivitamin [Multiple Vitamins] 1 each PO DAILY 10/10/18 10/10/18 Unknown History hydroCHLOROthiazide [HCTZ] 25 mg PO QDAY 10/10/18 10/10/18 Unknown History Active Medications: Generic Name Dose Route Start Last Admin Trade Name Freq PRN Reason Stop Dose Admin Acetaminophen 500 mg 10/16/18 10:02 10/29/18 17:08 Tylenol PO 500 mg Q6H PRN Administration Fever >101 Albumin Human 25 gm 11/02/18 19:15 Alburx 25% (Albumin) IV CHON PRN Hypotension Albuterol 2.5 mg 10/10/18 18:12 Proventil IH Q3HRT PRN Shortness Of Breath Albuterol/Ipratropium 1 ampul 10/25/18 08:00 11/03/18 07:51 Duoneb *Not For Prn Use* IH 1 ampul TIDRT RUBI Administration Amlodipine Besylate 10 mg 10/11/18 10:00 11/03/18 10:57 Norvasc PO 10 mg QDAY RUBI Administration Lipase/Protease/Amylase 1 each 10/11/18 12:58 Pancrebecka Reed 10,500 Unit FEEDTUBE PRN PRN For Clogged Feeding Tube Arformoterol Tartrate 15 mcg 10/20/18 11:45 11/03/18 07:51 Brovana Nebu IH 15 mcg Q12HRT RUBI Administration Atovaquone 750 mg 10/18/18 10:00 11/03/18 10:57 Mepron PO 750 mg BID RUBI Administration Carvedilol 12.5 mg 10/22/18 22:00 11/03/18 10:57 Coreg PO 12.5 mg BID RUBI Administration Darunavir 800 mg 10/30/18 18:00 11/03/18 10:57 Prezista PO 800 mg QDAY RUBI Administration Emtricitabine 200 mg 11/01/18 10:00 11/03/18 10:56 Emtriva PO 200 mg Q48HR RUBI Administration Epoetin Dany 10,000 unit 11/02/18 19:15 Procrit IV CHON PRN hemodialysis Haloperidol Lactate 5 mg 10/13/18 19:45 10/20/18 21:08 Haldol IV 5 mg Q6H PRN Administration Agitation Heparin Sodium (Porcine) 5,000 unit 11/02/18 19:15 Heparin IV CHON PRN hemodialysis Hydralazine HCl 10 mg 10/12/18 15:50 10/28/18 22:36 Apresoline IV 10 mg Q4HR PRN Administration SBP>175 or DBP>115 Hydrophilic Ointment 1 applic 10/10/18 17:53 Vaseline Lip Therapy TP Q2HR PRN Dry Lips Sodium Chloride 100 mls @ 999 mls/hr 10/31/18 08:00 Nacl 0.9% IV CHON PRN Hypotension Sodium Chloride 100 mls @ 999 mls/hr 11/02/18 19:15 Nacl 0.9% IV CHON PRN Hypotension Lansoprazole 30 mg 10/15/18 10:00 11/03/18 10:56 Prevacid Solutab FEEDTUBE 30 mg BID RUBI Administration Lorazepam 1 mg 10/13/18 19:48 10/21/18 04:09 Ativan IV 1 mg Q4H PRN Administration agitation Metoprolol Tartrate 5 mg 10/18/18 14:05 Lopressor IV Q6HR PRN Tachyarrhythmias Multi-Ingred Cream/Lotion/Oil/Oint 1 applic 10/10/18 17:53 Artificial Tears Ophth Oint OU Q4HR PRN Dry Eye(s) Multivitamins 1 each 10/11/18 10:00 11/03/18 10:57 Theragran Tab PO 1 each DAILY RUBI Administration Nystatin 100,000 unit 11/02/18 18:00 11/03/18 10:57 Nystatin PO 100,000 unit QID RUBI Administration Ritonavir 100 mg 10/30/18 18:00 11/03/18 10:57 Norvir PO 100 mg QDAY RUBI Administration Simple Syrup 15 ml 10/11/18 12:58 Simple Syrup FEEDTUBE PRN PRN Hypoglycemia Simple Syrup 30 ml 10/11/18 12:58 Simple Syrup FEEDTUBE PRN PRN Hypoglycemia Sodium Bicarbonate 325 mg 10/11/18 12:58 Sodium Bicarbonate FEEDTUBE PRN PRN For Clogged Feeding Tube Sodium Chloride 10 ml 10/10/18 22:00 11/03/18 10:58 Sodium Chloride Flush Syringe 10 Ml IV 10 ml BID RUBI Administration Sodium Chloride 10 ml 10/10/18 18:12 Sodium Chloride Flush Syringe 10 Ml IV PRN PRN LINE FLUSH Tenofovir Disoproxil Fumarate 300 mg 10/30/18 17:45 10/30/18 20:09 Viread PO 300 mg Q96H RUBI Administration
--- NOTE | 2018-11-03 13:53 | Progress Note ---
Assessment and Plan Discussed with Dr. Childress. Agreed to dialyze today and then remove femoral Vas-Cath. We'll get 24-36 hours of a catheter holiday and then we will place a new catheter upper extremity and possible all Monday. Possibly as a permacath. Subjective Date of service: 11/03/18 Principal diagnosis: hiv - anemia Interval history: Some low-grade fevers although none recently. Still question of whether Vas- Cath is source of potential infection despite negative blood cultures. Objective - Exam Narrative Exam: Vas-Cath insertion site clean - Constitutional Vitals: Vital Signs - 12hr 11/03/18 11/03/18 11/03/18 04:55 07:51 08:01 Temperature 98.7 F Pulse Rate Pulse Rate [ 122 H 125 H Anterior Bilateral Throughout] Respiratory 28 H Rate Respiratory 20 20 Rate [Anterior Bilateral Throughout] Blood Pressure 156/105 Blood Pressure [Left] O2 Sat by Pulse 99 Oximetry 11/03/18 11:41 Temperature 97.8 F Pulse Rate 124 H Pulse Rate [ Anterior Bilateral Throughout] Respiratory 20 Rate Respiratory Rate [Anterior Bilateral Throughout] Blood Pressure Blood Pressure 144/96 [Left] O2 Sat by Pulse 99 Oximetry - Labs CBC & Chem 7: 11/02/18 00:40 11/03/18 06:12 Labs: Abnormal lab results 11/03/18 Range/Units 06:12 Potassium 6.0 H (3.6-5.0) mmol/L Chloride 91.7 L (98-107) mmol/L Carbon Dioxide 18 L (22-30) mmol/L BUN 86 H (9-20) mg/dL Creatinine 10.5 H (0.8-1.5) mg/dL Glucose 111 H (75-100) mg/dL Medications & Allergies - Medications Allergies/Adverse Reactions: Allergies Sulfa (Sulfonamide Antibiotics) Allergy (Verified 10/10/18 16:54) Unknown Home Medications: Home Medications Medication Instructions Recorded Confirmed Last Taken Type Acetaminophen [Tylenol] 1,000 mg PO Q6HR 10/10/18 10/10/18 Unknown History Amlodipine Besylate [Norvasc] 10 mg PO QDAY 10/10/18 10/10/18 Unknown History Aspirin [Adult Aspirin] 81 mg PO DAILY 10/10/18 10/10/18 Unknown History Atorvastatin [Lipitor Tab] 80 mg PO DAILY 10/10/18 10/10/18 Unknown History Losartan [Cozaar] 100 mg PO QDAY 10/10/18 10/10/18 Unknown History Multivitamin [Multiple Vitamins] 1 each PO DAILY 10/10/18 10/10/18 Unknown History hydroCHLOROthiazide [HCTZ] 25 mg PO QDAY 10/10/18 10/10/18 Unknown History Active Medications: Generic Name Dose Route Start Last Admin Trade Name Freq PRN Reason Stop Dose Admin Acetaminophen 500 mg 10/16/18 10:02 10/29/18 17:08 Tylenol PO 500 mg Q6H PRN Administration Fever >101 Albumin Human 25 gm 11/02/18 19:15 Alburx 25% (Albumin) IV CHON PRN Hypotension Albuterol 2.5 mg 10/10/18 18:12 Proventil IH Q3HRT PRN Shortness Of Breath Albuterol/Ipratropium 1 ampul 10/25/18 08:00 11/03/18 07:51 Duoneb *Not For Prn Use* IH 1 ampul TIDRT RUBI Administration Amlodipine Besylate 10 mg 10/11/18 10:00 11/03/18 10:57 Norvasc PO 10 mg QDAY RUBI Administration Lipase/Protease/Amylase 1 each 10/11/18 12:58 Pancrebecka Reed 10,500 Unit FEEDTUBE PRN PRN For Clogged Feeding Tube Arformoterol Tartrate 15 mcg 10/20/18 11:45 11/03/18 07:51 Brovana Nebu IH 15 mcg Q12HRT RUBI Administration Atovaquone 750 mg 10/18/18 10:00 11/03/18 10:57 Mepron PO 750 mg BID RUBI Administration Carvedilol 12.5 mg 10/22/18 22:00 11/03/18 10:57 Coreg PO 12.5 mg BID RUBI Administration Darunavir 800 mg 10/30/18 18:00 11/03/18 10:57 Prezista PO 800 mg QDAY RUBI Administration Emtricitabine 200 mg 11/01/18 10:00 11/03/18 10:56 Emtriva PO 200 mg Q48HR RUBI Administration Epoetin Dany 10,000 unit 11/02/18 19:15 Procrit IV CHON PRN hemodialysis Haloperidol Lactate 5 mg 10/13/18 19:45 10/20/18 21:08 Haldol IV 5 mg Q6H PRN Administration Agitation Heparin Sodium (Porcine) 5,000 unit 11/02/18 19:15 Heparin IV CHON PRN hemodialysis Hydralazine HCl 10 mg 10/12/18 15:50 10/28/18 22:36 Apresoline IV 10 mg Q4HR PRN Administration SBP>175 or DBP>115 Hydrophilic Ointment 1 applic 10/10/18 17:53 Vaseline Lip Therapy TP Q2HR PRN Dry Lips Sodium Chloride 100 mls @ 999 mls/hr 10/31/18 08:00 Nacl 0.9% IV CHON PRN Hypotension Sodium Chloride 100 mls @ 999 mls/hr 11/02/18 19:15 Nacl 0.9% IV CHON PRN Hypotension Lansoprazole 30 mg 10/15/18 10:00 11/03/18 10:56 Prevacid Solutab FEEDTUBE 30 mg BID RUBI Administration Lorazepam 1 mg 10/13/18 19:48 10/21/18 04:09 Ativan IV 1 mg Q4H PRN Administration agitation Metoprolol Tartrate 5 mg 10/18/18 14:05 Lopressor IV Q6HR PRN Tachyarrhythmias Multi-Ingred Cream/Lotion/Oil/Oint 1 applic 10/10/18 17:53 Artificial Tears Ophth Oint OU Q4HR PRN Dry Eye(s) Multivitamins 1 each 10/11/18 10:00 11/03/18 10:57 Theragran Tab PO 1 each DAILY RUBI Administration Nystatin 100,000 unit 11/02/18 18:00 11/03/18 10:57 Nystatin PO 100,000 unit QID RUBI Administration Ritonavir 100 mg 10/30/18 18:00 11/03/18 10:57 Norvir PO 100 mg QDAY RUBI Administration Simple Syrup 15 ml 10/11/18 12:58 Simple Syrup FEEDTUBE PRN PRN Hypoglycemia Simple Syrup 30 ml 10/11/18 12:58 Simple Syrup FEEDTUBE PRN PRN Hypoglycemia Sodium Bicarbonate 325 mg 10/11/18 12:58 Sodium Bicarbonate FEEDTUBE PRN PRN For Clogged Feeding Tube Sodium Chloride 10 ml 10/10/18 22:00 11/03/18 10:58 Sodium Chloride Flush Syringe 10 Ml IV 10 ml BID RUBI Administration Sodium Chloride 10 ml 10/10/18 18:12 Sodium Chloride Flush Syringe 10 Ml IV PRN PRN LINE FLUSH Tenofovir Disoproxil Fumarate 300 mg 10/30/18 17:45 10/30/18 20:09 Viread PO 300 mg Q96H RUBI Administration
--- NOTE | 2018-11-03 14:54 | Progress Note ---
Assessment and Plan Assessment: * Acute kidney injury secondary to ATN vs HIVAN * HIV/AIDS * Acute encephalopathy * Acute hypoxic respiratory failure * Hx of urinary retention * Hypertension * Diarrhea * Hyperkalemia Plan: * Hemodialysis today, minimal UF * BUN persistently elevated; in addition, K not significantly improved despite dialysis - likely due to recirculation related to femoral vas cath; needs more permanent access; discussed with vascular surgery, plan for permcath on Monday. He is afebrile for more than 72hours * Continue daily HD for now * UF as tolerated * ID recommendations reviewed - antiretroviral treatment started 10/30 * Monitor for evidence of recovery * Epogen TIW prn * Continue antiHTN medications . Subjective Date of service: 11/03/18 Principal diagnosis: hiv - anemia Interval history: Patient has no complaints. Objective - Vital Signs Vital signs: Vital Signs - 12hr 11/03/18 11/03/18 11/03/18 04:55 07:51 08:01 Temperature 98.7 F Pulse Rate Pulse Rate [ 122 H 125 H Anterior Bilateral Throughout] Respiratory 28 H Rate Respiratory 20 20 Rate [Anterior Bilateral Throughout] Blood Pressure 156/105 Blood Pressure [Left] O2 Sat by Pulse 99 Oximetry 11/03/18 11:41 Temperature 97.8 F Pulse Rate 124 H Pulse Rate [ Anterior Bilateral Throughout] Respiratory 20 Rate Respiratory Rate [Anterior Bilateral Throughout] Blood Pressure Blood Pressure 144/96 [Left] O2 Sat by Pulse 99 Oximetry - General Appearance General appearance: chronically ill, frail EENT: ATNC, mucous membranes dry Neck: no JVD Respiratory: Present: Clear to Ascultation Cardiology: tachycardia, S1S2 Gastrointestinal: normal, no tenderness, no distended Musculoskeletal: other (no edema) Psychiatric: cooperative - Lab 11/02/18 00:40 11/03/18 06:12 Most recent lab results Calcium 8.8 mg/dL (8.4-10.2) 11/03/18 06:12 Phosphorus 8.30 mg/dL (2.5-4.5) H 10/25/18 10:00 Magnesium 3.10 mg/dL (1.7-2.3) H 10/18/18 05:03 Urine Creatinine 30.8 mg/dL (0.1-20.0) H 10/13/18 04:43 Urine Sodium 106 mmol/L 10/13/18 04:43 Urine Total Protein 75 mg/dL (5-11.8) H 10/13/18 04:43 Medications & Allergies - Medications Allergies/Adverse Reactions: Allergies Sulfa (Sulfonamide Antibiotics) Allergy (Verified 10/10/18 16:54) Unknown Home Medications: Home Medications Medication Instructions Recorded Confirmed Last Taken Type Acetaminophen [Tylenol] 1,000 mg PO Q6HR 10/10/18 10/10/18 Unknown History Amlodipine Besylate [Norvasc] 10 mg PO QDAY 10/10/18 10/10/18 Unknown History Aspirin [Adult Aspirin] 81 mg PO DAILY 10/10/18 10/10/18 Unknown History Atorvastatin [Lipitor Tab] 80 mg PO DAILY 10/10/18 10/10/18 Unknown History Losartan [Cozaar] 100 mg PO QDAY 10/10/18 10/10/18 Unknown History Multivitamin [Multiple Vitamins] 1 each PO DAILY 10/10/18 10/10/18 Unknown History hydroCHLOROthiazide [HCTZ] 25 mg PO QDAY 10/10/18 10/10/18 Unknown History Active Medications: Generic Name Dose Route Start Last Admin Trade Name Freq PRN Reason Stop Dose Admin Acetaminophen 500 mg 10/16/18 10:02 10/29/18 17:08 Tylenol PO 500 mg Q6H PRN Administration Fever >101 Albumin Human 25 gm 11/02/18 19:15 Alburx 25% (Albumin) IV CHON PRN Hypotension Albuterol 2.5 mg 10/10/18 18:12 Proventil IH Q3HRT PRN Shortness Of Breath Albuterol/Ipratropium 1 ampul 10/25/18 08:00 11/03/18 14:38 Duoneb *Not For Prn Use* IH Not Given TIDRT RUBI Amlodipine Besylate 10 mg 10/11/18 10:00 11/03/18 10:57 Norvasc PO 10 mg QDAY RUBI Administration Lipase/Protease/Amylase 1 each 10/11/18 12:58 Pancrebecka Reed 10,500 Unit FEEDTUBE PRN PRN For Clogged Feeding Tube Arformoterol Tartrate 15 mcg 10/20/18 11:45 11/03/18 07:51 Brovana Nebu IH 15 mcg Q12HRT RUBI Administration Atovaquone 750 mg 10/18/18 10:00 11/03/18 10:57 Mepron PO 750 mg BID RUBI Administration Carvedilol 12.5 mg 10/22/18 22:00 11/03/18 10:57 Coreg PO 12.5 mg BID RUBI Administration Darunavir 800 mg 10/30/18 18:00 11/03/18 10:57 Prezista PO 800 mg QDAY RUBI Administration Emtricitabine 200 mg 11/01/18 10:00 11/03/18 10:56 Emtriva PO 200 mg Q48HR RUBI Administration Epoetin Dany 10,000 unit 11/02/18 19:15 Procrit IV CHON PRN hemodialysis Haloperidol Lactate 5 mg 10/13/18 19:45 10/20/18 21:08 Haldol IV 5 mg Q6H PRN Administration Agitation Heparin Sodium (Porcine) 5,000 unit 11/02/18 19:15 Heparin IV CHON PRN hemodialysis Hydralazine HCl 10 mg 10/12/18 15:50 10/28/18 22:36 Apresoline IV 10 mg Q4HR PRN Administration SBP>175 or DBP>115 Hydrophilic Ointment 1 applic 10/10/18 17:53 Vaseline Lip Therapy TP Q2HR PRN Dry Lips Sodium Chloride 100 mls @ 999 mls/hr 10/31/18 08:00 Nacl 0.9% IV CHON PRN Hypotension Sodium Chloride 100 mls @ 999 mls/hr 11/02/18 19:15 Nacl 0.9% IV CHON PRN Hypotension Lansoprazole 30 mg 10/15/18 10:00 11/03/18 10:56 Prevacid Solutab FEEDTUBE 30 mg BID RUBI Administration Lorazepam 1 mg 10/13/18 19:48 10/21/18 04:09 Ativan IV 1 mg Q4H PRN Administration agitation Metoprolol Tartrate 5 mg 10/18/18 14:05 Lopressor IV Q6HR PRN Tachyarrhythmias Multi-Ingred Cream/Lotion/Oil/Oint 1 applic 10/10/18 17:53 Artificial Tears Ophth Oint OU Q4HR PRN Dry Eye(s) Multivitamins 1 each 10/11/18 10:00 11/03/18 10:57 Theragran Tab PO 1 each DAILY RUBI Administration Nystatin 100,000 unit 11/02/18 18:00 11/03/18 14:18 Nystatin PO Not Given QID RUBI Ritonavir 100 mg 10/30/18 18:00 11/03/18 10:57 Norvir PO 100 mg QDAY RUBI Administration Simple Syrup 15 ml 10/11/18 12:58 Simple Syrup FEEDTUBE PRN PRN Hypoglycemia Simple Syrup 30 ml 10/11/18 12:58 Simple Syrup FEEDTUBE PRN PRN Hypoglycemia Sodium Bicarbonate 325 mg 10/11/18 12:58 Sodium Bicarbonate FEEDTUBE PRN PRN For Clogged Feeding Tube Sodium Chloride 10 ml 10/10/18 22:00 11/03/18 10:58 Sodium Chloride Flush Syringe 10 Ml IV 10 ml BID RUBI Administration Sodium Chloride 10 ml 10/10/18 18:12 Sodium Chloride Flush Syringe 10 Ml IV PRN PRN LINE FLUSH Tenofovir Disoproxil Fumarate 300 mg 10/30/18 17:45 10/30/18 20:09 Viread PO 300 mg Q96H RUBI Administration
[2018-11-03] MEDS: VIREAD PO SCH (17:45)
[2018-11-03] MEDS ORDERED: NACL 0.9 (PRIMING MACHINE ONLY DIALYSIS) MC ONE (19:45)
[2018-11-03] MEDS: PROVENTIL IH PRN (20:12)
[2018-11-04] MEDS: BROVANA NEBU IH SCH ×2 (07:51→21:46)
[2018-11-04] MEDS: DUONEB *Not for PRN Use IH SCH ×3 (08:18→21:46)
--- NOTE | 2018-11-04 08:27 | Hem/Onc Progress Note ---
Assessment and Plan 1. Anemia. At admission, hemoglobin was 8.1, later low and s/p Transfusion support. 2. Platelets at admission was 20. 3. White cell count was elevated. 4. PT/INR h/o slightly elevated. 5. Renal failure. 6. ALT elevated. 7. The patient has multiple medical issues. PLAN: I will ask for a smear evaluation. I will call the lab for same. Supportive care in the interim while we looked for primary etiology. 3 - plt better - s/p transfusion d/w dr rain and dr carrillo 10/14 - low plt - rasta ctive bleed suprapubic catheter 10/15 - plt were rising and again going down' pt had got plt transfusion LDH high - [id number] ordered smear - ordererd LDH may be high in other causes too - renal etc 10/16 - d/w path - not many schistocytes on smear - ADAMTS 13 ordered extubated 10/17 - plt low - path review ordered d/w armin monsalve 10/18 - path report pending plt low - but no active bleeding 10/19 - pt more alert - follows commands no bleeding 10/20 pt SOB - d/w Dr Monsalve and RN plt low - but no bleeding NGT+ more awake 10/21 - pt in [facility] plt >100 - more awake 10/22 - clinically better - moves all 4 limbs 10/23 - clinically stable - prbc suport 10/24 - as per RN -pt passed barium - for thickened diet pt has suprapubic got PRBC plt improving 10/25 - clinically better no active bleeding 10/26 - moving all extremity -communicating repeat cbc 10/27 - labs better - clinically improving 10/28 - plt now normal - hb better - s/p PRBC recent CKD may have a role 10/29 - pt clinically stable - 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 - electrolyte abn 10/30 - cbc improving - pt had question reg rectal tube - he will d/w other MDs 10/31 - plt better - hb better - OP follow up an option 11/01 - labs follow up 11/02 anemia d/w rn - rectal tube - decubiti suprapubic HD cath change planned 11/03/2018 pt getting HD rectal tube present 11/04- on o2 will follow labs gets HD - Patient Problems (1) Thrombocytopenia associated with AIDS Current Visit: Yes Status: Acute (2) Anemia Current Visit: Yes Status: Acute Qualifiers: Anemia type: due to chronic kidney disease Chronic kidney disease stage: unspecified stage Qualified Code(s): N18.9 - Chronic kidney disease, unspecified; D63.1 - Anemia in chronic kidney disease Subjective Date of service: 11/04/18 Principal diagnosis: anemia Interval history: on o2 support Objective - Constitutional Vitals: Last Vital Signs Temp 97.8 F 11/04/18 05:34 Pulse 117 H 11/04/18 08:18 Resp 26 H 11/04/18 08:18 BP 112/86 11/04/18 05:34 Pulse Ox 99 11/03/18 23:44 Pain Intensity (0-10): denies any pain General appearance: mild distress Performance status: 4-completely disabled - EENT Eyes: EOM intact ENT: clear oral mucosa Lymph node exam: negative cervical - Neck Neck: supple - Respiratory Respiratory effort: Positive: normal (on o2) Respiratory: bilateral: diminished (poor effort) - Cardiovascular Heart Sounds: Present: S1 & S2 Extremities: No edema - Gastrointestinal General gastrointestinal: Present: soft, non-tender Rectal Exam: deferred - Genitourinary Male genitourinary: Present: deferred - Integumentary Integumentary: warm - Musculoskeletal Musculoskeletal: generalized weakness - Neurologic Neurologic: moves all extremities - Labs Lab Results: Laboratory Results - last 24 hr 11/03/18 11/03/18 06:12 16:12 POC ABG pH 7.514 H POC ABG pO2 62 L POC ABG HCO3 23.2 POC ABG Total CO2 24 POC ABG O2 Sat 94 POC ABG Base Excess 0 FiO2 4 Sodium 140 Potassium 6.0 H Chloride 91.7 L Carbon Dioxide 18 L Anion Gap 36 BUN 86 H Creatinine 10.5 H Estimated GFR 7 BUN/Creatinine Ratio 8 Glucose 111 H Calcium 8.8 Medications & Allergies - Medications Allergies/Adverse Reactions: Allergies Sulfa (Sulfonamide Antibiotics) Allergy (Verified 10/10/18 16:54) Unknown Home Medications: Home Medications Medication Instructions Recorded Confirmed Last Taken Type Acetaminophen [Tylenol] 1,000 mg PO Q6HR 10/10/18 10/10/18 Unknown History Amlodipine Besylate [Norvasc] 10 mg PO QDAY 10/10/18 10/10/18 Unknown History Aspirin [Adult Aspirin] 81 mg PO DAILY 10/10/18 10/10/18 Unknown History Atorvastatin [Lipitor Tab] 80 mg PO DAILY 10/10/18 10/10/18 Unknown History Losartan [Cozaar] 100 mg PO QDAY 10/10/18 10/10/18 Unknown History Multivitamin [Multiple Vitamins] 1 each PO DAILY 10/10/18 10/10/18 Unknown History hydroCHLOROthiazide [HCTZ] 25 mg PO QDAY 10/10/18 10/10/18 Unknown History Active Medications: Generic Name Dose Route Start Last Admin Trade Name Freq PRN Reason Stop Dose Admin Acetaminophen 500 mg 10/16/18 10:02 10/29/18 17:08 Tylenol PO 500 mg Q6H PRN Administration Fever >101 Albumin Human 25 gm 11/02/18 19:15 Alburx 25% (Albumin) IV CHON PRN Hypotension Albuterol 2.5 mg 10/10/18 18:12 Proventil IH Q3HRT PRN Shortness Of Breath Albuterol/Ipratropium 1 ampul 10/25/18 08:00 11/04/18 08:18 Duoneb *Not For Prn Use* IH 1 ampul TIDRT RUBI Administration Amlodipine Besylate 10 mg 10/11/18 10:00 11/03/18 10:57 Norvasc PO 10 mg QDAY RUBI Administration Lipase/Protease/Amylase 1 each 10/11/18 12:58 Pancrebecka Reed 10,500 Unit FEEDTUBE PRN PRN For Clogged Feeding Tube Arformoterol Tartrate 15 mcg 10/20/18 11:45 11/03/18 20:21 Brovana Nebu IH Not Given Q12HRT RUBI Atovaquone 750 mg 10/18/18 10:00 11/03/18 21:49 Mepron PO Not Given BID RUBI Carvedilol 12.5 mg 10/22/18 22:00 11/03/18 10:57 Coreg PO 12.5 mg BID RUBI Administration Darunavir 800 mg 10/30/18 18:00 11/03/18 10:57 Prezista PO 800 mg QDAY RUBI Administration Emtricitabine 200 mg 11/01/18 10:00 11/03/18 10:56 Emtriva PO 200 mg Q48HR RUBI Administration Epoetin Dany 10,000 unit 11/02/18 19:15 Procrit IV CHON PRN hemodialysis Haloperidol Lactate 5 mg 10/13/18 19:45 10/20/18 21:08 Haldol IV 5 mg Q6H PRN Administration Agitation Heparin Sodium (Porcine) 5,000 unit 11/02/18 19:15 Heparin IV CHON PRN hemodialysis Hydralazine HCl 10 mg 10/12/18 15:50 10/28/18 22:36 Apresoline IV 10 mg Q4HR PRN Administration SBP>175 or DBP>115 Hydrophilic Ointment 1 applic 10/10/18 17:53 Vaseline Lip Therapy TP Q2HR PRN Dry Lips Sodium Chloride 100 mls @ 999 mls/hr 10/31/18 08:00 Nacl 0.9% IV CHON PRN Hypotension Sodium Chloride 100 mls @ 999 mls/hr 11/02/18 19:15 Nacl 0.9% IV CHON PRN Hypotension Lansoprazole 30 mg 10/15/18 10:00 11/03/18 21:50 Prevacid Solutab FEEDTUBE Not Given BID RUBI Lorazepam 1 mg 10/13/18 19:48 10/21/18 04:09 Ativan IV 1 mg Q4H PRN Administration agitation Metoprolol Tartrate 5 mg 10/18/18 14:05 Lopressor IV Q6HR PRN Tachyarrhythmias Multi-Ingred Cream/Lotion/Oil/Oint 1 applic 10/10/18 17:53 Artificial Tears Ophth Oint OU Q4HR PRN Dry Eye(s) Multivitamins 1 each 10/11/18 10:00 11/03/18 10:57 Theragran Tab PO 1 each DAILY RUBI Administration Nystatin 100,000 unit 11/02/18 18:00 11/03/18 21:50 Nystatin PO Not Given QID RUBI Ritonavir 100 mg 10/30/18 18:00 11/03/18 10:57 Norvir PO 100 mg QDAY RUBI Administration Simple Syrup 15 ml 10/11/18 12:58 Simple Syrup FEEDTUBE PRN PRN Hypoglycemia Simple Syrup 30 ml 10/11/18 12:58 Simple Syrup FEEDTUBE PRN PRN Hypoglycemia Sodium Bicarbonate 325 mg 10/11/18 12:58 Sodium Bicarbonate FEEDTUBE PRN PRN For Clogged Feeding Tube Sodium Chloride 10 ml 10/10/18 22:00 11/03/18 10:58 Sodium Chloride Flush Syringe 10 Ml IV 10 ml BID RUBI Administration Sodium Chloride 10 ml 10/10/18 18:12 Sodium Chloride Flush Syringe 10 Ml IV PRN PRN LINE FLUSH Tenofovir Disoproxil Fumarate 300 mg 10/30/18 17:45 11/03/18 17:45 Viread PO Not Given Q96H RUBI
[2018-11-04 09:24] LABS: Calcium 8.6 mg/dL (8.4-10.2)
--- NOTE | 2018-11-04 09:55 | Progress Note ---
Assessment and Plan Assessment and plan: patient is 43 YO Male with HIV, hypertension, previous stroke, Nicotine Dependence, presents to ED for evaluation. Patient was confused and lethargic and unable to provide history. He was seen and evaluated in ED and found to be in distress and unable to protect his airway and was therefore intubated, placed on ventilator in ER then admitted MR brain 10/11 1. Study somewhat degraded by motion artifact. 2 Areas of edema in the basal ganglia and thalami bilaterally, within the jamari and in the cerebral hemispheres bilaterally in the subcortical and deep white matter and in portions of the cortex. 3. Areas of encephalomalacia in the basal ganglia bilaterally with evidence of previous hemorrhage or mineral deposition. 4. Numerous small foci of acute infarct in the basal ganglia bilaterally, subinsular regions bilaterally and medial temporal lobes bilaterally and possibly in the occipital cortex bilaterally. The above findings may be secondary to an infectious or noninfectious etiology with a component of vasculopathy or vasculitis resulting in infarcts. Viral encephalopathies and lymphoma would need to be considered in this patient with history of HIV. Neuro ams acute metabolic encephalopathy improving /Acute CVA with Bilateral infarcts with edema Consulted Neurology, he was evaluated by DR. Valentine. Could be due to possible vasculitis - further workup pending Dysphagia/ moderate malnutrition -MBS 10/23, recommended pureed with nectar thickened liquids Hematology Anemia- stable, thrombocytopenia, leukocytosis, coagulopathy; now resolved -Status post platelet and prbc transfusion, the patient had only few schistocytes on smear, ADAMS13 91% activity ID HIV/AIDS, CD4 count 3, HIV viral load 320,000 acute bacterial PNA, CMV viremia toxo neg, CSF neg Whole blood cmv PCR was positive at 1374 abx and a antiviral per ID high fever, cxr shows improvement of vasc congestion, fup blood cx, femoral Vas- Cath which is likely the source of infection was supposed to be removed after dialysis on Monday, discussed with vascular surgery, it'll hopefully be removed today after dialysis; patient needs permacath, now afebrile and BC neg per ID "-continue atovaquone 750 mg BID ,-continue HIV therapy: renally adjusted TDF, FTC along with dolutegravir and ritonavir boosted darunavir,-follow up HIV Genotype,-f/u 1,3 [id number]" FEN/Renal SHRUTHI- ATN, Hyperkalemia, urinary retention sp SPC on 10/12 cont HD per nephrology, no signs of renal recovery Pulm acute hypoxic resp failure on MV> 96 hours self extubated 10/16, continue supplemental oxygen CVS /Hypertensive urgency and acute systolic CHF He was treated with Cardene drip which was weaned off. Optimize medications for CHF on coreg, no mik due to high K, fluid removal by dialysis Skin Stage 2 sacral wound decub . The wound was measured at 5.0x4.0. Small serous sanguineous drainage noticed from the wound. no evidence of infection, cont wound care DVT ppx- scds, given that he pw thrombocytopenia History Interval history: Patient continues to have weakness of his voice, still having fevers Review of systems Constitutional: , no malaise, no joint pains CVS: No chest pain, no orthopnea, no dyspnea on exertion, no pedal edema GI: No abdominal pain, no diarrhea, no vomiting, no constipation Respiratory: No shortness of breath, no wheezing, no coughing Hospitalist Physical - Physical exam Narrative exam: General.: Appears well, no distress, nontoxic HEENT: Moist mucous membranes, extraocular muscles intact, no lymphadenopathy Neck: supple Cardiac: S1-S2 heard Lungs: clear to auscultation bilaterally Abdomen: soft , nontender, nondistended, bowel sounds positive Extremities: no edema clubbing or cyanosis Skin: no rash or lesions Neurologic: no gross focal deficits Psych: calm, and cooperative - Constitutional Vitals: Temp Pulse Resp BP Pulse Ox 97.8 F 117 H 26 H 112/86 100 11/04/18 05:34 11/04/18 08:18 11/04/18 08:18 11/04/18 05:34 11/04/18 08:18 General appearance: Present: no acute distress Results - Labs CBC & Chem 7: 11/02/18 00:40 11/04/18 07:29 Labs: Laboratory Last Values WBC 9.4 K/mm3 (4.5-11.0) 11/02/18 00:40 RBC 2.80 M/mm3 (3.65-5.03) L 11/02/18 00:40 Hgb 8.2 gm/dl (11.8-15.2) L 11/02/18 00:40 Hct 25.2 % (35.5-45.6) L 11/02/18 00:40 MCV 90 fl (84-94) 11/02/18 00:40 MCH 29 pg (28-32) 11/02/18 00:40 MCHC 32 % (32-34) 11/02/18 00:40 RDW 19.8 % (13.2-15.2) H 11/02/18 00:40 Plt Count 217 K/mm3 (140-440) 11/02/18 00:40 Add Manual Diff Complete 11/02/18 00:40 Total Counted 100 11/02/18 00:40 Seg Neuts % (Manual) 68.0 % (40.0-70.0) 11/02/18 00:40 Band Neutrophils % 4.0 % 11/02/18 00:40 Lymphocytes % (Manual) 15.0 % (13.4-35.0) 11/02/18 00:40 Reactive Lymphs % (Man) 2.0 % 11/02/18 00:40 Monocytes % (Manual) 11.0 % (0.0-7.3) H 11/02/18 00:40 Eosinophils % (Manual) 0 % (0.0-4.3) 11/02/18 00:40 Basophils % (Manual) 0 % (0.0-1.8) 11/02/18 00:40 Metamyelocytes % 0 % 11/02/18 00:40 Myelocytes % 0 % 11/02/18 00:40 Promyelocytes % 0 % 11/02/18 00:40 Blast Cells % 0 % 11/02/18 00:40 Nucleated RBC % 34.0 % (0.0-0.9) H 11/02/18 00:40 Seg Neutrophils # Man 6.4 K/mm3 (1.8-7.7) 11/02/18 00:40 Band Neutrophils # 0.4 K/mm3 11/02/18 00:40 Abs Lymphs (Manual) 267 cells/uL (850-3900) L 10/11/18 17:36 Lymphocytes # (Manual) 1.4 K/mm3 (1.2-5.4) 11/02/18 00:40 Abs React Lymphs (Man) 0.2 K/mm3 11/02/18 00:40 Monocytes # (Manual) 1.0 K/mm3 (0.0-0.8) H 11/02/18 00:40 Eosinophils # (Manual) 0.0 K/mm3 (0.0-0.4) 11/02/18 00:40 Basophils # (Manual) 0.0 K/mm3 (0.0-0.1) 11/02/18 00:40 Metamyelocytes # 0.0 K/mm3 11/02/18 00:40 Myelocytes # 0.0 K/mm3 11/02/18 00:40 Promyelocytes # 0.0 K/mm3 11/02/18 00:40 Blast Cells # 0.0 K/mm3 11/02/18 00:40 Pathologist Review 10/15/18 03:14 WBC Morphology Not Reportable 11/02/18 00:40 Hypersegmented Neuts Not Reportable 11/02/18 00:40 Hyposegmented Neuts Not Reportable 11/02/18 00:40 Hypogranular Neuts Not Reportable 11/02/18 00:40 Smudge Cells Not Reportable 11/02/18 00:40 Toxic Granulation Not Reportable 11/02/18 00:40 Toxic Vacuolation Not Reportable 11/02/18 00:40 Dohle Bodies Not Reportable 11/02/18 00:40 Pelger-Huet Anomaly Not Reportable 11/02/18 00:40 Kartik Rods Not Reportable 11/02/18 00:40 Platelet Estimate Consistent w auto 11/02/18 00:40 Clumped Platelets Not Reportable 11/02/18 00:40 Plt Clumps, EDTA Not Reportable 11/02/18 00:40 Large Platelets Not Reportable 11/02/18 00:40 Giant Platelets Not Reportable 11/02/18 00:40 Platelet Satelliting Not Reportable 11/02/18 00:40 Plt Morphology Comment Not Reportable 11/02/18 00:40 RBC Morphology Not Reportable 11/02/18 00:40 Dimorphic RBCs Not Reportable 11/02/18 00:40 Polychromasia Not Reportable 11/02/18 00:40 Hypochromasia 1+ 11/02/18 00:40 Poikilocytosis 1+ 11/02/18 00:40 Anisocytosis 1+ 11/02/18 00:40 Microcytosis 1+ 11/02/18 00:40 Macrocytosis Not Reportable 11/02/18 00:40 Spherocytes Not Reportable 11/02/18 00:40 Pappenheimer Bodies Not Reportable 11/02/18 00:40 Sickle Cells Not Reportable 11/02/18 00:40 Target Cells Not Reportable 11/02/18 00:40 Tear Drop Cells Not Reportable 11/02/18 00:40 Ovalocytes Not Reportable 11/02/18 00:40 Helmet Cells Not Reportable 11/02/18 00:40 [place] Bodies Not Reportable 11/02/18 00:40 [place] Rings Not Reportable 11/02/18 00:40 [place] Cells Not Reportable 11/02/18 00:40 Bite Cells Not Reportable 11/02/18 00:40 Crenated Cell Not Reportable 11/02/18 00:40 Elliptocytes Not Reportable 11/02/18 00:40 Acanthocytes (Spur) Not Reportable 11/02/18 00:40 Rouleaux Not Reportable 11/02/18 00:40 Hemoglobin C Crystals Not Reportable 11/02/18 00:40 Schistocytes Rare 11/02/18 00:40 Malaria parasites Not Reportable 11/02/18 00:40 Jv Bodies Not Reportable 11/02/18 00:40 Hem Pathologist Commnt No 11/02/18 00:40 PT 14.5 Sec. (12.2-14.9) 10/15/18 00:59 INR 1.06 (0.87-1.13) 10/15/18 00:59 APTT 27.9 Sec. (24.2-36.6) 10/10/18 15:02 Thrombin Time 16.9 Sec. (15.1-19.6) 10/10/18 15:02 Heparin Anti-Xa, Unfract Negative (Negative) 10/25/18 05:59 POC ABG pH 7.514 (7.35-7.45) H 11/03/18 16:12 POC ABG pCO2 32.0 (35-45) L 10/21/18 09:49 POC ABG pO2 62 (80-105) L 11/03/18 16:12 POC ABG HCO3 23.2 (22-26 mml/L) 11/03/18 16:12 POC ABG Total CO2 24 (23-27mmol/L) 11/03/18 16:12 POC ABG O2 Sat 94 11/03/18 16:12 POC ABG Base Excess 0 ((-2) - (+3)mmol/L) 11/03/18 16:12 FiO2 4 % 11/03/18 16:12 Sodium 141 mmol/L (137-145) 11/04/18 07:29 Potassium 5.2 mmol/L (3.6-5.0) H 11/04/18 07:29 Chloride 96.7 mmol/L (98-107) L 11/04/18 07:29 Carbon Dioxide 21 mmol/L (22-30) L 11/04/18 07:29 Anion Gap 29 mmol/L 11/04/18 07:29 BUN 68 mg/dL (9-20) H 11/04/18 07:29 Creatinine 8.3 mg/dL (0.8-1.5) H 11/04/18 07:29 Estimated GFR 9 ml/min 11/04/18 07:29 BUN/Creatinine Ratio 8 % 11/04/18 07:29 Glucose 112 mg/dL (75-100) H 11/04/18 07:29 POC Glucose 139 (70-105) H 10/20/18 13:07 Osmolality 338 Mosm/kg 10/11/18 17:35 Lactic Acid 1.80 mmol/L (0.7-2.0) 10/12/18 05:59 Uric Acid 13.4 mg/dL (3.5-7.6) H 10/11/18 17:36 Calcium 8.6 mg/dL (8.4-10.2) 11/04/18 07:29 Phosphorus 8.30 mg/dL (2.5-4.5) H 10/25/18 10:00 Magnesium 3.10 mg/dL (1.7-2.3) H 10/18/18 05:03 Iron 147 ug/dL (49-181) 10/11/18 17:36 TIBC 236 mcg/dL (250-450) L 10/11/18 17:36 Ferritin 72070.0 ng/mL (13.0-400.0) H 10/11/18 17:35 Total Bilirubin 0.40 mg/dL (0.1-1.2) 10/25/18 10:00 Direct Bilirubin 0.2 mg/dL (0-0.2) 10/16/18 04:07 Indirect Bilirubin 0.3 mg/dL 10/16/18 04:07 AST 46 units/L (5-40) H 10/25/18 10:00 ALT 21 units/L (7-56) 10/25/18 10:00 Alkaline Phosphatase 102 units/L (35-129) 10/25/18 10:00 Ammonia 25.0 umol/L (25-60) 10/17/18 14:59 Lactate Dehydrogenase 925 units/L (91-180) H 10/22/18 05:51 Troponin T 0.272 ng/mL (0.00-0.029) H* 10/10/18 18:07 NT-Pro-B Natriuret Pep 86056 pg/mL (0-450) H 10/10/18 15:42 Total Protein 8.1 g/dL (6.3-8.2) 10/25/18 10:00 Albumin 3.5 g/dL (3.9-5) L 10/25/18 10:00 Albumin/Globulin Ratio 0.8 % 10/25/18 10:00 Triglycerides 329 mg/dL (2-149) H 10/10/18 15:02 Cholesterol 234 mg/dL (50-199) H 10/10/18 15:02 LDL Cholesterol Direct 139 mg/dL (50-130) H 10/10/18 15:02 HDL Cholesterol 42 mg/dL (40-59) 10/10/18 15:02 Cholesterol/HDL Ratio 5.57 % 10/10/18 15:02 Serotonin Release Assay See scanned result 10/25/18 05:59 Vitamin B12 912.3 pg/mL (211-911) H 10/14/18 08:51 Folate 8.32 ng/mL (7.3-26.0) 10/14/18 08:51 PTH Intact 388.7 pg/mL (15-65) H 10/25/18 10:00 Urine Creatinine 30.8 mg/dL (0.1-20.0) H 10/13/18 04:43 Urine Sodium 106 mmol/L 10/13/18 04:43 Urine Total Protein 75 mg/dL (5-11.8) H 10/13/18 04:43 CSF Appearance Clear 10/16/18 15:00 CSF Color Colorless 10/16/18 15:00 CSF WBC 4 /mm3 (1-10) 10/16/18 15:00 CSF RBC 113 /mm3 (0-0) 10/16/18 15:00 CSF Seg Neutrophils 8.0 % (0-6) 10/16/18 15:00 CSF Lymphocytes % 76.0 % (40-80) 10/16/18 15:00 CSF Reactive Lymphs 2.0 % 10/16/18 15:00 CSF Monocytes % 14.0 % (15-45) 10/16/18 15:00 CSF Eosinophils % 0 % 10/16/18 15:00 CSF Basophils 0 % 10/16/18 15:00 CSF Pathologist Review C 10/16/18 15:00 CSF Glucose 73 mg/dL 10/16/18 15:00 CSF Total Protein 55 mg/dL 10/16/18 15:00 CSF VDRL Nonreactive (Nonreactive) 10/16/18 15:00 Random Vancomycin 18.9 ug/mL (0-40.0) 10/29/18 07:13 Immunofix Electrophor see below 10/11/18 17:36 RENO Screen Negative (Negative) 10/21/18 15:07 Proteinase 3 (PR3) Ab <1.0 AI (<1.0) 10/21/18 15:07 Myeloperoxidase Ab <1.0 AI (<1.0) 10/21/18 15:07 Heparin-induced Plt Ab Negative (Negative) 10/25/18 05:59 UF Heparin High Dose 0 % Release 10/25/18 05:59 VJ UFH Low Dose 0.1 0 % Release 10/25/18 05:59 VJ UFH Low Dose 0.5 14 % Release 10/25/18 05:59 Lymph Enumerat CD4/CD8 0.01 (0.86-5.00) L 10/11/18 17:36 % CD3 Cells 85 % (57-85) 10/11/18 17:36 Absolute CD3 Count 226 cells/uL (840-3060) L 10/11/18 17:36 % CD4 Cells 1 % (30-61) L 10/11/18 17:36 Absolute CD4 Count 3 cells/uL (490-1740) L 10/11/18 17:36 % CD8 Cells 82 % (12-42) H 10/11/18 17:36 Absolute CD8 Count 228 cells/uL (180-1170) 10/11/18 17:36 % CD19 Cells 6 % (6-29) 10/11/18 17:36 Absolute CD19 Count 16 cells/uL (110-660) L 10/11/18 17:36 RPR Titer 1:32 10/11/18 17:37 RPR Reactive (Nonreactive) 10/11/18 17:37 T.pallidum Ab (FTA-ABS) Reactive (Nonreactive) H 10/12/18 Unknown 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 See scanned result 10/24/18 17:47 Hepatitis A IgM Ab Non-reactive (NonReactive) 10/11/18 17:34 Hep Bs Antigen Non-reactive (Negative) 10/11/18 17:34 Hep B Core IgM Ab Non-reactive (NonReactive) 10/11/18 17:34 Hepatitis C Antibody Non-reactive (NonReactive) 10/11/18 17:34 HIV-1 RNA PCR copies/ml 272191 Copies/mL H 10/11/18 17:36 HIV-1 RNA (PCR) log 5.51 Log cps/mL H 10/11/18 17:36 Toxoplasma IgG Ab <7.20 IU/mL (<7.20) 10/13/18 07:54 Miscellaneous Test Flexitest 1 10/31/18 06:43 Blood Type A POSITIVE 10/23/18 09:12 Antibody Screen Negative 10/23/18 09:12 Crossmatch See Detail 10/23/18 09:12 Active Medications - Current Medications Current Medications: Generic Name Dose Route Start Last Admin Trade Name Freq PRN Reason Stop Dose Admin Acetaminophen 500 mg 10/16/18 10:02 10/29/18 17:08 Tylenol PO 500 mg Q6H PRN Administration Fever >101 Albumin Human 25 gm 11/02/18 19:15 Alburx 25% (Albumin) IV CHON PRN Hypotension Albuterol 2.5 mg 10/10/18 18:12 Proventil IH Q3HRT PRN Shortness Of Breath Albuterol/Ipratropium 1 ampul 10/25/18 08:00 11/04/18 08:18 Duoneb *Not For Prn Use* IH 1 ampul TIDRT RUBI Administration Amlodipine Besylate 10 mg 10/11/18 10:00 11/03/18 10:57 Norvasc PO 10 mg QDAY RUBI Administration Lipase/Protease/Amylase 1 each 10/11/18 12:58 Pancrebecka Reed 10,500 Unit FEEDTUBE PRN PRN For Clogged Feeding Tube Arformoterol Tartrate 15 mcg 10/20/18 11:45 11/03/18 20:21 Brovana Nebu IH Not Given Q12HRT RUBI Atovaquone 750 mg 10/18/18 10:00 11/03/18 21:49 Mepron PO Not Given BID [facility] Carvedilol 12.5 mg 10/22/18 22:00 11/03/18 10:57 Coreg PO 12.5 mg BID RUBI Administration Darunavir 800 mg 10/30/18 18:00 11/03/18 10:57 Prezista PO 800 mg QDAY RUBI Administration Emtricitabine 200 mg 11/01/18 10:00 11/03/18 10:56 Emtriva PO 200 mg Q48HR RUBI Administration Epoetin Dany 10,000 unit 11/02/18 19:15 Procrit IV CHON PRN hemodialysis Haloperidol Lactate 5 mg 10/13/18 19:45 10/20/18 21:08 Haldol IV 5 mg Q6H PRN Administration Agitation Heparin Sodium (Porcine) 5,000 unit 11/02/18 19:15 Heparin IV CHON PRN hemodialysis Hydralazine HCl 10 mg 10/12/18 15:50 10/28/18 22:36 Apresoline IV 10 mg Q4HR PRN Administration SBP>175 or DBP>115 Hydrophilic Ointment 1 applic 10/10/18 17:53 Vaseline Lip Therapy TP Q2HR PRN Dry Lips Sodium Chloride 100 mls @ 999 mls/hr 10/31/18 08:00 Nacl 0.9% IV CHON PRN Hypotension Sodium Chloride 100 mls @ 999 mls/hr 11/02/18 19:15 Nacl 0.9% IV CHON PRN Hypotension Lansoprazole 30 mg 10/15/18 10:00 11/03/18 21:50 Prevacid Solutab FEEDTUBE Not Given BID RUBI Lorazepam 1 mg 10/13/18 19:48 10/21/18 04:09 Ativan IV 1 mg Q4H PRN Administration agitation Metoprolol Tartrate 5 mg 10/18/18 14:05 Lopressor IV Q6HR PRN Tachyarrhythmias Multi-Ingred Cream/Lotion/Oil/Oint 1 applic 10/10/18 17:53 Artificial Tears Ophth Oint OU Q4HR PRN Dry Eye(s) Multivitamins 1 each 10/11/18 10:00 11/03/18 10:57 Theragran Tab PO 1 each DAILY RUBI Administration Nystatin 100,000 unit 11/02/18 18:00 11/03/18 21:50 Nystatin PO Not Given QID RUBI Ritonavir 100 mg 10/30/18 18:00 11/03/18 10:57 Norvir PO 100 mg QDAY RUBI Administration Simple Syrup 15 ml 10/11/18 12:58 Simple Syrup FEEDTUBE PRN PRN Hypoglycemia Simple Syrup 30 ml 10/11/18 12:58 Simple Syrup FEEDTUBE PRN PRN Hypoglycemia Sodium Bicarbonate 325 mg 10/11/18 12:58 Sodium Bicarbonate FEEDTUBE PRN PRN For Clogged Feeding Tube Sodium Chloride 10 ml 10/10/18 22:00 11/03/18 10:58 Sodium Chloride Flush Syringe 10 Ml IV 10 ml BID RUBI Administration Sodium Chloride 10 ml 10/10/18 18:12 Sodium Chloride Flush Syringe 10 Ml IV PRN PRN LINE FLUSH Tenofovir Disoproxil Fumarate 300 mg 10/30/18 17:45 11/03/18 17:45 Viread PO Not Given Q96H RUBI Nutrition/Malnutrition Assess - Dietary Evaluation Nutrition/Malnutrition Findings: Nutrition Notes Start: 10/11/18 11:14 Freq: Status: Active Protocol: Document 11/01/18 14:39 RM (Rec: 11/01/18 14:53 RM [id number]) Nutrition Notes Initial or Follow up Reassessment Current Diagnosis Acute Kidney Injury,CKD(stage I-IV),Hypertension,Stroke Other Pertinent Diagnosis on HD, Acute encephalopathy, HIV/AIDS, Syphilis, dysphagia Current Diet NPO Labs/Tests Reviewed Pertinent Medications Reviewed Height 5 ft 9 in Weight 51.5 kg [place] Body Weight (kg) 72.72 BMI 16.7 Weight change and time frame Current wt obtained from [facility]. Previous wt likely inaccurate or d/t fluid change . Subjective/Other Information Recorded PO intake 42% X 3 meals. Tech unsure if pt drank Nepro prior to NPO status. Pt planned to start HD per progress note 11/01/18. Percent of energy/protein needs met: 53%/52% Burn Absent Trauma Absent #1 Nutrition Diagnosis Inadequate oral intake Diagnosis Progress(for reassessment Continues documentation) Is patient on ventilator? No Is Patient Ambulatory and/or Out of Bed No REE-([facility]-confined to bed) [phone] Calculation Used for Recommendations [facility] Additional Notes Pro needs 1.2-1.5g/k-79g/ day Fluid needs 1ml/kcal Nutrition Intervention Change Diet Order: Advance diet when medically able Add Supplement/Snack (indicate name/kcal Nepro 1 daily once diet /protein ) advanced Provides kCal: 425 Provides Protein (gm) 19 Goal #1 Meet at least 75% of calorie and protein needs via PO and ONS intakes Anticipated Discharge Needs: Pureed, Renal diet Follow-Up By: 11/06/18 Additional Comments Follow for PO and ONS intakes
[2018-11-04] MEDS: THERAGRAN Tab PO SCH (10:46)
[2018-11-04] MEDS: MEPRON PO SCH ×2 (10:47→21:59)
[2018-11-04] MEDS: PREVACID SOLUTAB FEEDTUBE SCH ×2 (10:47→22:05)
[2018-11-04] MEDS: NORVIR PO SCH (10:47)
[2018-11-04] MEDS: NYSTATIN PO SCH ×4 (10:47→22:04)
[2018-11-04] MEDS: TIVICAY PO SCH (10:47)
[2018-11-04] MEDS: PREZISTA PO SCH (10:47)
[2018-11-04] MEDS: SODIUM CHLORIDE FLUSH SYRINGE 10 ML IV SCH ×2 (10:48→22:03)
[2018-11-04] MEDS: COREG PO SCH ×2 (10:55→22:03)
[2018-11-04] MEDS: NORVASC PO SCH (10:55)
--- NOTE | 2018-11-04 13:50 | Progress Note ---
Assessment and Plan Plan to move femoral line to the internal jugular position either Vas-Cath O permacath tomorrow. Subjective Date of service: 11/04/18 Principal diagnosis: anemia Interval history: Persistent hyperkalemia necessitated leaving current Vas-Cath in place. Patient afebrile for greater than 72 hours. Objective - Exam Narrative Exam: Awake but not especially communicative.. May have some vomitus and oral cavity. Vas-Cath in the right groin without evidence of infection - Constitutional Vitals: Vital Signs - 12hr 11/04/18 11/04/18 11/04/18 05:34 08:18 08:28 Temperature 97.8 F Pulse Rate Pulse Rate [ 117 H 119 H Anterior Bilateral Throughout] Respiratory 16 Rate Respiratory 26 H 26 H Rate [Anterior Bilateral Throughout] Blood Pressure 112/86 O2 Sat by Pulse 100 Oximetry 11/04/18 11/04/18 11/04/18 10:55 10:56 11:43 Temperature 98.7 F Pulse Rate 117 H 117 H Pulse Rate [ Anterior Bilateral Throughout] Respiratory 24 Rate Respiratory Rate [Anterior Bilateral Throughout] Blood Pressure 121/75 117/78 O2 Sat by Pulse 96 98 Oximetry - Labs CBC & Chem 7: 11/02/18 00:40 11/04/18 07:29 Labs: Abnormal lab results 11/03/18 11/04/18 Range/Units 16:12 07:29 POC ABG pH 7.514 H (7.35-7.45) POC ABG pO2 62 L (80-105) Potassium 5.2 H (3.6-5.0) mmol/L Chloride 96.7 L (98-107) mmol/L Carbon Dioxide 21 L (22-30) mmol/L BUN 68 H (9-20) mg/dL Creatinine 8.3 H (0.8-1.5) mg/dL Glucose 112 H (75-100) mg/dL Medications & Allergies - Medications Allergies/Adverse Reactions: Allergies Sulfa (Sulfonamide Antibiotics) Allergy (Verified 10/10/18 16:54) Unknown Home Medications: Home Medications Medication Instructions Recorded Confirmed Last Taken Type Acetaminophen [Tylenol] 1,000 mg PO Q6HR 10/10/18 10/10/18 Unknown History Amlodipine Besylate [Norvasc] 10 mg PO QDAY 10/10/18 10/10/18 Unknown History Aspirin [Adult Aspirin] 81 mg PO DAILY 10/10/18 10/10/18 Unknown History Atorvastatin [Lipitor Tab] 80 mg PO DAILY 10/10/18 10/10/18 Unknown History Losartan [Cozaar] 100 mg PO QDAY 10/10/18 10/10/18 Unknown History Multivitamin [Multiple Vitamins] 1 each PO DAILY 10/10/18 10/10/18 Unknown History hydroCHLOROthiazide [HCTZ] 25 mg PO QDAY 10/10/18 10/10/18 Unknown History Active Medications: Generic Name Dose Route Start Last Admin Trade Name Freq PRN Reason Stop Dose Admin Acetaminophen 500 mg 10/16/18 10:02 10/29/18 17:08 Tylenol PO 500 mg Q6H PRN Administration Fever >101 Albumin Human 25 gm 11/02/18 19:15 Alburx 25% (Albumin) IV CHON PRN Hypotension Albuterol 2.5 mg 10/10/18 18:12 Proventil IH Q3HRT PRN Shortness Of Breath Albuterol/Ipratropium 1 ampul 10/25/18 08:00 11/04/18 08:18 Duoneb *Not For Prn Use* IH 1 ampul TIDRT RUBI Administration Amlodipine Besylate 10 mg 10/11/18 10:00 11/04/18 10:55 Norvasc PO 10 mg QDAY RUBI Administration Lipase/Protease/Amylase 1 each 10/11/18 12:58 Pancrebecka Reed 10,500 Unit FEEDTUBE PRN PRN For Clogged Feeding Tube Arformoterol Tartrate 15 mcg 10/20/18 11:45 11/03/18 20:21 Brorussell Menendez IH Not Given Q12HRT RUBI Atovaquone 750 mg 10/18/18 10:00 11/04/18 10:47 Mepron PO 750 mg BID RUBI Administration Carvedilol 12.5 mg 10/22/18 22:00 11/04/18 10:55 Coreg PO 12.5 mg BID RUBI Administration Darunavir 800 mg 10/30/18 18:00 11/04/18 10:47 Prezista PO 800 mg QDAY RUBI Administration Emtricitabine 200 mg 11/01/18 10:00 11/03/18 10:56 Emtriva PO 200 mg Q48HR RUBI Administration Epoetin Dany 10,000 unit 11/02/18 19:15 Procrit IV CHON PRN hemodialysis Haloperidol Lactate 5 mg 10/13/18 19:45 10/20/18 21:08 Haldol IV 5 mg Q6H PRN Administration Agitation Heparin Sodium (Porcine) 5,000 unit 11/02/18 19:15 Heparin IV CHON PRN hemodialysis Hydralazine HCl 10 mg 10/12/18 15:50 10/28/18 22:36 Apresoline IV 10 mg Q4HR PRN Administration SBP>175 or DBP>115 Hydrophilic Ointment 1 applic 10/10/18 17:53 Vaseline Lip Therapy TP Q2HR PRN Dry Lips Sodium Chloride 100 mls @ 999 mls/hr 10/31/18 08:00 Nacl 0.9% IV CHON PRN Hypotension Sodium Chloride 100 mls @ 999 mls/hr 11/02/18 19:15 Nacl 0.9% IV CHON PRN Hypotension Lansoprazole 30 mg 10/15/18 10:00 11/04/18 10:47 Prevacid Solutab FEEDTUBE 30 mg BID RUBI Administration Lorazepam 1 mg 10/13/18 19:48 10/21/18 04:09 Ativan IV 1 mg Q4H PRN Administration agitation Metoprolol Tartrate 5 mg 10/18/18 14:05 Lopressor IV Q6HR PRN Tachyarrhythmias Multi-Ingred Cream/Lotion/Oil/Oint 1 applic 10/10/18 17:53 Artificial Tears Ophth Oint OU Q4HR PRN Dry Eye(s) Multivitamins 1 each 10/11/18 10:00 11/04/18 10:46 Theragran Tab PO 1 each DAILY RUBI Administration Nystatin 100,000 unit 11/02/18 18:00 11/04/18 10:47 Nystatin PO 100,000 unit QID RUBI Administration Ritonavir 100 mg 10/30/18 18:00 11/04/18 10:47 Norvir PO 100 mg QDAY RUBI Administration Simple Syrup 15 ml 10/11/18 12:58 Simple Syrup FEEDTUBE PRN PRN Hypoglycemia Simple Syrup 30 ml 10/11/18 12:58 Simple Syrup FEEDTUBE PRN PRN Hypoglycemia Sodium Bicarbonate 325 mg 10/11/18 12:58 Sodium Bicarbonate FEEDTUBE PRN PRN For Clogged Feeding Tube Sodium Chloride 10 ml 10/10/18 22:00 11/04/18 10:48 Sodium Chloride Flush Syringe 10 Ml IV 10 ml BID RUBI Administration Sodium Chloride 10 ml 10/10/18 18:12 Sodium Chloride Flush Syringe 10 Ml IV PRN PRN LINE FLUSH Tenofovir Disoproxil Fumarate 300 mg 10/30/18 17:45 11/03/18 17:45 Viread PO Not Given Q96H RUBI
--- NOTE | 2018-11-04 14:29 | XRay Report ---
PROCEDURE: XR CHEST 1V AP TECHNIQUE: Chest radiograph, portable AP semiupright view. HISTORY: sob COMPARISONS: Chest x-ray October 29, 2018. FINDINGS: Cardiac silhouette is within normal limits. There is no effusion. There is no pneumothorax. There is no consolidation. Prominent bilateral pulmon douglas markings. There are no suspicious osseous lesions. IMPRESSION: * Pulmonary findings may represent pneumonia (possibly viral), bronchitis, or mild pulmonary vascula r congestion. This document is electronically signed by Luis Cunningham MD., November 04 2018 02:27:25 PM ET
--- NOTE | 2018-11-04 14:37 | Progress Note ---
Assessment and Plan Assessment: * Acute kidney injury secondary to ATN vs HIVAN * HIV/AIDS * Acute encephalopathy * Acute hypoxic respiratory failure * Hx of urinary retention * Hypertension * Diarrhea * Hyperkalemia Plan: * No acute need for hemodiaylsis today as K is stable. Femoral vascath maintained due to persistent hyperkalemia. He is afebrile for more than 72hours * Will plan for HD tomorrow pending permcath placement tomorrow * ID recommendations reviewed - antiretroviral treatment started 10/30 * Monitor for evidence of recovery * Epogen TIW prn * Continue antiHTN medications . Subjective Date of service: 11/04/18 Principal diagnosis: anemia Interval history: Patient has no complaints Objective - Vital Signs Vital signs: Vital Signs - 12hr 11/04/18 11/04/18 11/04/18 05:34 08:18 08:28 Temperature 97.8 F Pulse Rate Pulse Rate [ 117 H 119 H Anterior Bilateral Throughout] Respiratory 16 Rate Respiratory 26 H 26 H Rate [Anterior Bilateral Throughout] Blood Pressure 112/86 O2 Sat by Pulse 100 Oximetry 11/04/18 11/04/18 11/04/18 10:55 10:56 11:43 Temperature 98.7 F Pulse Rate 117 H 117 H Pulse Rate [ Anterior Bilateral Throughout] Respiratory 24 Rate Respiratory Rate [Anterior Bilateral Throughout] Blood Pressure 121/75 117/78 O2 Sat by Pulse 96 98 Oximetry - General Appearance General appearance: cachectic, chronically ill, frail EENT: ATNC Respiratory: Present: Decreased Breath Sounds Cardiology: regular, S1S2 Gastrointestinal: normal, no tenderness, no distended Integumentary: no rash, warm and dry Musculoskeletal: other (no edema) Psychiatric: cooperative - Lab 11/02/18 00:40 11/04/18 07:29 Most recent lab results Calcium 8.6 mg/dL (8.4-10.2) 11/04/18 07:29 Phosphorus 8.30 mg/dL (2.5-4.5) H 10/25/18 10:00 Magnesium 3.10 mg/dL (1.7-2.3) H 10/18/18 05:03 Urine Creatinine 30.8 mg/dL (0.1-20.0) H 10/13/18 04:43 Urine Sodium 106 mmol/L 10/13/18 04:43 Urine Total Protein 75 mg/dL (5-11.8) H 10/13/18 04:43 Medications & Allergies - Medications Allergies/Adverse Reactions: Allergies Sulfa (Sulfonamide Antibiotics) Allergy (Verified 10/10/18 16:54) Unknown Home Medications: Home Medications Medication Instructions Recorded Confirmed Last Taken Type Acetaminophen [Tylenol] 1,000 mg PO Q6HR 10/10/18 10/10/18 Unknown History Amlodipine Besylate [Norvasc] 10 mg PO QDAY 10/10/18 10/10/18 Unknown History Aspirin [Adult Aspirin] 81 mg PO DAILY 10/10/18 10/10/18 Unknown History Atorvastatin [Lipitor Tab] 80 mg PO DAILY 10/10/18 10/10/18 Unknown History Losartan [Cozaar] 100 mg PO QDAY 10/10/18 10/10/18 Unknown History Multivitamin [Multiple Vitamins] 1 each PO DAILY 10/10/18 10/10/18 Unknown History hydroCHLOROthiazide [HCTZ] 25 mg PO QDAY 10/10/18 10/10/18 Unknown History Active Medications: Generic Name Dose Route Start Last Admin Trade Name Freq PRN Reason Stop Dose Admin Acetaminophen 500 mg 10/16/18 10:02 10/29/18 17:08 Tylenol PO 500 mg Q6H PRN Administration Fever >101 Albumin Human 25 gm 11/02/18 19:15 Alburx 25% (Albumin) IV CHON PRN Hypotension Albuterol 2.5 mg 10/10/18 18:12 Proventil IH Q3HRT PRN Shortness Of Breath Albuterol/Ipratropium 1 ampul 10/25/18 08:00 11/04/18 08:18 Duoneb *Not For Prn Use* IH 1 ampul TIDRT RUBI Administration Amlodipine Besylate 10 mg 10/11/18 10:00 11/04/18 10:55 Norvasc PO 10 mg QDAY RUBI Administration Lipase/Protease/Amylase 1 each 10/11/18 12:58 Pancrebecka Reed 10,500 Unit FEEDTUBE PRN PRN For Clogged Feeding Tube Arformoterol Tartrate 15 mcg 10/20/18 11:45 11/03/18 20:21 Brorussell Menendez IH Not Given Q12HRT RUBI Atovaquone 750 mg 10/18/18 10:00 11/04/18 10:47 Mepron PO 750 mg BID RUBI Administration Carvedilol 12.5 mg 10/22/18 22:00 11/04/18 10:55 Coreg PO 12.5 mg BID RUBI Administration Darunavir 800 mg 10/30/18 18:00 11/04/18 10:47 Prezista PO 800 mg QDAY RUBI Administration Emtricitabine 200 mg 11/01/18 10:00 11/03/18 10:56 Emtriva PO 200 mg Q48HR RUBI Administration Epoetin Dany 10,000 unit 11/02/18 19:15 Procrit IV CHON PRN hemodialysis Haloperidol Lactate 5 mg 10/13/18 19:45 10/20/18 21:08 Haldol IV 5 mg Q6H PRN Administration Agitation Heparin Sodium (Porcine) 5,000 unit 11/02/18 19:15 Heparin IV CHON PRN hemodialysis Hydralazine HCl 10 mg 10/12/18 15:50 10/28/18 22:36 Apresoline IV 10 mg Q4HR PRN Administration SBP>175 or DBP>115 Hydrophilic Ointment 1 applic 10/10/18 17:53 Vaseline Lip Therapy TP Q2HR PRN Dry Lips Sodium Chloride 100 mls @ 999 mls/hr 10/31/18 08:00 Nacl 0.9% IV CHON PRN Hypotension Sodium Chloride 100 mls @ 999 mls/hr 11/02/18 19:15 Nacl 0.9% IV CHON PRN Hypotension Lansoprazole 30 mg 10/15/18 10:00 11/04/18 10:47 Prevacid Solutab FEEDTUBE 30 mg BID RUBI Administration Lorazepam 1 mg 10/13/18 19:48 10/21/18 04:09 Ativan IV 1 mg Q4H PRN Administration agitation Metoprolol Tartrate 5 mg 10/18/18 14:05 Lopressor IV Q6HR PRN Tachyarrhythmias Multi-Ingred Cream/Lotion/Oil/Oint 1 applic 10/10/18 17:53 Artificial Tears Ophth Oint OU Q4HR PRN Dry Eye(s) Multivitamins 1 each 10/11/18 10:00 11/04/18 10:46 Theragran Tab PO 1 each DAILY RUBI Administration Nystatin 100,000 unit 11/02/18 18:00 11/04/18 10:47 Nystatin PO 100,000 unit QID RUBI Administration Ritonavir 100 mg 10/30/18 18:00 11/04/18 10:47 Norvir PO 100 mg QDAY RUBI Administration Simple Syrup 15 ml 10/11/18 12:58 Simple Syrup FEEDTUBE PRN PRN Hypoglycemia Simple Syrup 30 ml 10/11/18 12:58 Simple Syrup FEEDTUBE PRN PRN Hypoglycemia Sodium Bicarbonate 325 mg 10/11/18 12:58 Sodium Bicarbonate FEEDTUBE PRN PRN For Clogged Feeding Tube Sodium Chloride 10 ml 10/10/18 22:00 11/04/18 10:48 Sodium Chloride Flush Syringe 10 Ml IV 10 ml BID RUBI Administration Sodium Chloride 10 ml 10/10/18 18:12 Sodium Chloride Flush Syringe 10 Ml IV PRN PRN LINE FLUSH Tenofovir Disoproxil Fumarate 300 mg 10/30/18 17:45 11/03/18 17:45 Viread PO Not Given Q96H RUBI
[2018-11-04] MEDS: PROVENTIL IH PRN (14:44)
[2018-11-04] MEDS ORDERED: NACL 0.9% 100 ML IV PRN (16:13)
[2018-11-04] MEDS ORDERED: ALBURX 25% (ALBUMIN) IV PRN (16:14)
[2018-11-04] MEDS ORDERED: PROCRIT IV PRN (16:15)
--- NOTE | 2018-11-05 07:55 | Hem/Onc Progress Note ---
Assessment and Plan 1. Anemia. At admission, hemoglobin was 8.1, later low and s/p Transfusion support. 2. Platelets at admission was 20. 3. White cell count was elevated. 4. PT/INR h/o slightly elevated. 5. Renal failure. 6. ALT elevated. 7. The patient has multiple medical issues. PLAN: I will ask for a smear evaluation. I will call the lab for same. Supportive care in the interim while we looked for primary etiology. 3 - plt better - s/p transfusion d/w dr rain and dr carrillo 10/14 - low plt - rasta ctive bleed suprapubic catheter 10/15 - plt were rising and again going down' pt had got plt transfusion LDH high - [id number] ordered smear - ordererd LDH may be high in other causes too - renal etc 10/16 - d/w path - not many schistocytes on smear - ADAMTS 13 ordered extubated 10/17 - plt low - path review ordered d/w armin monsalve 10/18 - path report pending plt low - but no active bleeding 10/19 - pt more alert - follows commands no bleeding 10/20 pt SOB - d/w Dr Monsalve and RN plt low - but no bleeding NGT+ more awake 10/21 - pt in [facility] plt >100 - more awake 10/22 - clinically better - moves all 4 limbs 10/23 - clinically stable - prbc suport 10/24 - as per RN -pt passed barium - for thickened diet pt has suprapubic got PRBC plt improving 10/25 - clinically better no active bleeding 10/26 - moving all extremity -communicating repeat cbc 10/27 - labs better - clinically improving 10/28 - plt now normal - hb better - s/p PRBC recent CKD may have a role 10/29 - pt clinically stable - cocoa bean roaster helper abn - electrolyte abn 10/30 - cbc improving - pt had question reg rectal tube - he will d/w other MDs 10/31 - plt better - hb better - OP follow up an option 11/01 - labs follow up 11/02 anemia d/w rn - rectal tube - decubiti suprapubic HD cath change planned 11/03/2018 pt getting HD rectal tube present 11/04- on o2 will follow labs gets HD 11/05 anemia slight SOB - on o2 HD cath - Patient Problems (1) Thrombocytopenia associated with AIDS Current Visit: Yes Status: Acute (2) Anemia Current Visit: Yes Status: Acute Qualifiers: Anemia type: due to chronic kidney disease Chronic kidney disease stage: unspecified stage Qualified Code(s): N18.9 - Chronic kidney disease, unspecified; D63.1 - Anemia in chronic kidney disease Subjective Date of service: 11/05/18 Principal diagnosis: anemia Interval history: pt weak - HD cath plan Objective - Constitutional Vitals: Last Vital Signs Temp 98.0 F 11/05/18 05:02 Pulse 123 H 11/05/18 05:02 Resp 16 11/05/18 05:02 BP 123/81 11/05/18 05:02 Pulse Ox 93 11/05/18 05:02 Pain Intensity (0-10): denies any pain General appearance: mild distress Performance status: 4-completely disabled - EENT Eyes: EOM intact ENT: clear oral mucosa Lymph node exam: negative cervical - Neck Neck: normal ROM - Respiratory Respiratory effort: Positive: other (slight SOB) Respiratory: bilateral: diminished (poor effort) - Cardiovascular Heart Sounds: Present: S1 & S2 Extremities: No edema - Gastrointestinal General gastrointestinal: Present: soft Rectal Exam: deferred, other (rectal tube) - Genitourinary Male genitourinary: Present: deferred - Integumentary Integumentary: warm - Musculoskeletal Musculoskeletal: generalized weakness - Neurologic Neurologic: moves all extremities - Labs Lab Results: Laboratory Results - last 24 hr 11/04/18 07:29 Sodium 141 Potassium 5.2 H Chloride 96.7 L Carbon Dioxide 21 L Anion Gap 29 BUN 68 H Creatinine 8.3 H Estimated GFR 9 BUN/Creatinine Ratio 8 Glucose 112 H Calcium 8.6 Medications & Allergies - Medications Allergies/Adverse Reactions: Allergies Sulfa (Sulfonamide Antibiotics) Allergy (Verified 10/10/18 16:54) Unknown Home Medications: Home Medications Medication Instructions Recorded Confirmed Last Taken Type Acetaminophen [Tylenol] 1,000 mg PO Q6HR 10/10/18 10/10/18 Unknown History Amlodipine Besylate [Norvasc] 10 mg PO QDAY 10/10/18 10/10/18 Unknown History Aspirin [Adult Aspirin] 81 mg PO DAILY 10/10/18 10/10/18 Unknown History Atorvastatin [Lipitor Tab] 80 mg PO DAILY 10/10/18 10/10/18 Unknown History Losartan [Cozaar] 100 mg PO QDAY 10/10/18 10/10/18 Unknown History Multivitamin [Multiple Vitamins] 1 each PO DAILY 10/10/18 10/10/18 Unknown History hydroCHLOROthiazide [HCTZ] 25 mg PO QDAY 10/10/18 10/10/18 Unknown History Active Medications: Generic Name Dose Route Start Last Admin Trade Name Freq PRN Reason Stop Dose Admin Acetaminophen 500 mg 10/16/18 10:02 10/29/18 17:08 Tylenol PO 500 mg Q6H PRN Administration Fever >101 Albumin Human 25 gm 11/04/18 16:14 Alburx 25% (Albumin) IV CHON PRN Hypotension Albuterol 2.5 mg 10/10/18 18:12 Proventil IH Q3HRT PRN Shortness Of Breath Albuterol/Ipratropium 1 ampul 10/25/18 08:00 11/04/18 21:46 Duoneb *Not For Prn Use* IH 1 ampul TIDRT RUBI Administration Amlodipine Besylate 10 mg 10/11/18 10:00 11/04/18 10:55 Norvasc PO 10 mg QDAY RUBI Administration Lipase/Protease/Amylase 1 each 10/11/18 12:58 Pancreazkarlos Reed 10,500 Unit FEEDTUBE PRN PRN For Clogged Feeding Tube Arformoterol Tartrate 15 mcg 10/20/18 11:45 11/04/18 21:46 Brovana Gemma IH Not Given Q12HRT RUBI Atovaquone 750 mg 10/18/18 10:00 11/04/18 21:59 Mepron PO 750 mg BID RUBI Administration Carvedilol 12.5 mg 10/22/18 22:00 11/04/18 22:03 Coreg PO 12.5 mg BID RUBI Administration Darunavir 800 mg 10/30/18 18:00 11/04/18 10:47 Prezista PO 800 mg QDAY RUBI Administration Emtricitabine 200 mg 11/01/18 10:00 11/03/18 10:56 Emtriva PO 200 mg Q48HR RUBI Administration Epoetin Dany 10,000 unit 11/04/18 16:15 Procrit IV CHON PRN hemodialysis Haloperidol Lactate 5 mg 10/13/18 19:45 10/20/18 21:08 Haldol IV 5 mg Q6H PRN Administration Agitation Heparin Sodium (Porcine) 5,000 unit 11/04/18 16:15 Heparin IV CHON PRN hemodialysis Hydralazine HCl 10 mg 10/12/18 15:50 10/28/18 22:36 Apresoline IV 10 mg Q4HR PRN Administration SBP>175 or DBP>115 Hydrophilic Ointment 1 applic 10/10/18 17:53 Vaseline Lip Therapy TP Q2HR PRN Dry Lips Sodium Chloride 100 mls @ 999 mls/hr 11/04/18 16:13 Nacl 0.9% IV CHON PRN Hypotension Lansoprazole 30 mg 10/15/18 10:00 11/04/18 22:05 Prevacid Solutab FEEDTUBE 30 mg BID RUBI Administration Lorazepam 1 mg 10/13/18 19:48 10/21/18 04:09 Ativan IV 1 mg Q4H PRN Administration agitation Metoprolol Tartrate 5 mg 10/18/18 14:05 Lopressor IV Q6HR PRN Tachyarrhythmias Multi-Ingred Cream/Lotion/Oil/Oint 1 applic 10/10/18 17:53 Artificial Tears Ophth Oint OU Q4HR PRN Dry Eye(s) Multivitamins 1 each 10/11/18 10:00 11/04/18 10:46 Theragran Tab PO 1 each DAILY RUBI Administration Nystatin 100,000 unit 11/02/18 18:00 11/04/18 22:04 Nystatin PO 100,000 unit QID RUBI Administration Ritonavir 100 mg 10/30/18 18:00 11/04/18 10:47 Norvir PO 100 mg QDAY RUBI Administration Simple Syrup 15 ml 10/11/18 12:58 Simple Syrup FEEDTUBE PRN PRN Hypoglycemia Simple Syrup 30 ml 10/11/18 12:58 Simple Syrup FEEDTUBE PRN PRN Hypoglycemia Sodium Bicarbonate 325 mg 10/11/18 12:58 Sodium Bicarbonate FEEDTUBE PRN PRN For Clogged Feeding Tube Sodium Chloride 10 ml 10/10/18 22:00 11/04/18 22:03 Sodium Chloride Flush Syringe 10 Ml IV 10 ml BID RUBI Administration Sodium Chloride 10 ml 10/10/18 18:12 Sodium Chloride Flush Syringe 10 Ml IV PRN PRN LINE FLUSH Tenofovir Disoproxil Fumarate 300 mg 10/30/18 17:45 03/23/19 17:45 Viread PO Not Given Q96H RUBI
[2018-11-05] MEDS: DUONEB *Not for PRN Use IH SCH ×3 (08:21→19:50)
[2018-11-05] MEDS: BROVANA NEBU IH SCH (08:21)
--- NOTE | 2018-11-05 08:59 | Progress Note ---
Assessment and Plan Assessment: * Acute kidney injury secondary to ATN vs HIVAN * HIV/AIDS * Acute encephalopathy * Acute hypoxic respiratory failure * Hx of urinary retention * Hypertension * Diarrhea * Hyperkalemia Plan: * Will plan for HD today pending permcath placement * UF as tolerated * ID recommendations reviewed - antiretroviral treatment started 10/30 * Monitor for evidence of recovery * Epogen TIW prn * Continue antiHTN medications . Subjective Date of service: 11/05/18 Principal diagnosis: anemia Interval history: No acute events overnight Objective - Vital Signs Vital signs: Vital Signs - 12hr 11/04/18 11/04/18 11/04/18 21:46 21:50 21:51 Temperature Pulse Rate 112 H Pulse Rate [ 112 H Bilateral Throughout] Respiratory 20 Rate Respiratory 20 Rate [Bilateral Throughout] Blood Pressure O2 Sat by Pulse 97 97 Oximetry 11/04/18 11/04/18 11/05/18 22:03 22:59 05:02 Temperature 97.0 F L 98.0 F Pulse Rate 126 H 128 H 123 H Pulse Rate [ Bilateral Throughout] Respiratory 18 16 Rate Respiratory Rate [Bilateral Throughout] Blood Pressure 120/77 130/87 123/81 O2 Sat by Pulse 98 93 Oximetry 11/05/18 11/05/18 11/05/18 08:21 08:38 08:48 Temperature Pulse Rate Pulse Rate [ 99 H 128 H Bilateral Throughout] Respiratory Rate Respiratory 25 H 22 Rate [Bilateral Throughout] Blood Pressure O2 Sat by Pulse 97 Oximetry - General Appearance General appearance: cachectic, chronically ill, frail EENT: ATNC Respiratory: Present: Clear to Ascultation Cardiology: regular, S1S2 Gastrointestinal: normal, no tenderness, no distended Integumentary: warm and dry Musculoskeletal: other (no edema) Psychiatric: cooperative - Lab 11/02/18 00:40 11/04/18 07:29 Most recent lab results Calcium 8.6 mg/dL (8.4-10.2) 11/04/18 07:29 Phosphorus 8.30 mg/dL (2.5-4.5) H 10/25/18 10:00 Magnesium 3.10 mg/dL (1.7-2.3) H 10/18/18 05:03 Urine Creatinine 30.8 mg/dL (0.1-20.0) H 10/13/18 04:43 Urine Sodium 106 mmol/L 10/13/18 04:43 Urine Total Protein 75 mg/dL (5-11.8) H 10/13/18 04:43 Medications & Allergies - Medications Allergies/Adverse Reactions: Allergies Sulfa (Sulfonamide Antibiotics) Allergy (Verified 10/10/18 16:54) Unknown Home Medications: Home Medications Medication Instructions Recorded Confirmed Last Taken Type Acetaminophen [Tylenol] 1,000 mg PO Q6HR 10/10/18 10/10/18 Unknown History Amlodipine Besylate [Norvasc] 10 mg PO QDAY 10/10/18 10/10/18 Unknown History Aspirin [Adult Aspirin] 81 mg PO DAILY 10/10/18 10/10/18 Unknown History Atorvastatin [Lipitor Tab] 80 mg PO DAILY 10/10/18 10/10/18 Unknown History Losartan [Cozaar] 100 mg PO QDAY 10/10/18 10/10/18 Unknown History Multivitamin [Multiple Vitamins] 1 each PO DAILY 10/10/18 10/10/18 Unknown History hydroCHLOROthiazide [HCTZ] 25 mg PO QDAY 10/10/18 10/10/18 Unknown History Active Medications: Generic Name Dose Route Start Last Admin Trade Name Freq PRN Reason Stop Dose Admin Acetaminophen 500 mg 10/16/18 10:02 10/29/18 17:08 Tylenol PO 500 mg Q6H PRN Administration Fever >101 Albumin Human 25 gm 11/04/18 16:14 Alburx 25% (Albumin) IV CHON PRN Hypotension Albuterol 2.5 mg 10/10/18 18:12 Proventil IH Q3HRT PRN Shortness Of Breath Albuterol/Ipratropium 1 ampul 10/25/18 08:00 11/05/18 08:21 Duoneb *Not For Prn Use* IH 1 ampul TIDRT RUBI Administration Amlodipine Besylate 10 mg 10/11/18 10:00 11/04/18 10:55 Norvasc PO 10 mg QDAY RUBI Administration Lipase/Protease/Amylase 1 each 10/11/18 12:58 Pancrebecka Reed 10,500 Unit FEEDTUBE PRN PRN For Clogged Feeding Tube Arformoterol Tartrate 15 mcg 10/20/18 11:45 11/05/18 08:21 Brovana Gemma IH Not Given Q12HRT RUBI Atovaquone 750 mg 10/18/18 10:00 11/04/18 21:59 Mepron PO 750 mg BID RUBI Administration Carvedilol 12.5 mg 10/22/18 22:00 11/04/18 22:03 Coreg PO 12.5 mg BID RUBI Administration Darunavir 800 mg 10/30/18 18:00 11/04/18 10:47 Prezista PO 800 mg QDAY RUBI Administration Emtricitabine 200 mg 11/01/18 10:00 11/03/18 10:56 Emtriva PO 200 mg Q48HR RUBI Administration Epoetin Dany 10,000 unit 11/04/18 16:15 Procrit IV CHON PRN hemodialysis Haloperidol Lactate 5 mg 10/13/18 19:45 10/20/18 21:08 Haldol IV 5 mg Q6H PRN Administration Agitation Heparin Sodium (Porcine) 5,000 unit 11/04/18 16:15 Heparin IV CHON PRN hemodialysis Hydralazine HCl 10 mg 10/12/18 15:50 10/28/18 22:36 Apresoline IV 10 mg Q4HR PRN Administration SBP>175 or DBP>115 Hydrophilic Ointment 1 applic 10/10/18 17:53 Vaseline Lip Therapy TP Q2HR PRN Dry Lips Sodium Chloride 100 mls @ 999 mls/hr 11/04/18 16:13 Nacl 0.9% IV CHON PRN Hypotension Lansoprazole 30 mg 10/15/18 10:00 11/04/18 22:05 Prevacid Solutab FEEDTUBE 30 mg BID RUBI Administration Lorazepam 1 mg 10/13/18 19:48 10/21/18 04:09 Ativan IV 1 mg Q4H PRN Administration agitation Metoprolol Tartrate 5 mg 10/18/18 14:05 Lopressor IV Q6HR PRN Tachyarrhythmias Multi-Ingred Cream/Lotion/Oil/Oint 1 applic 10/10/18 17:53 Artificial Tears Ophth Oint OU Q4HR PRN Dry Eye(s) Multivitamins 1 each 10/11/18 10:00 11/04/18 10:46 Theragran Tab PO 1 each DAILY RUBI Administration Nystatin 100,000 unit 11/02/18 18:00 11/04/18 22:04 Nystatin PO 100,000 unit QID RUBI Administration Ritonavir 100 mg 10/30/18 18:00 11/04/18 10:47 Norvir PO 100 mg QDAY RUBI Administration Simple Syrup 15 ml 10/11/18 12:58 Simple Syrup FEEDTUBE PRN PRN Hypoglycemia Simple Syrup 30 ml 10/11/18 12:58 Simple Syrup FEEDTUBE PRN PRN Hypoglycemia Sodium Bicarbonate 325 mg 10/11/18 12:58 Sodium Bicarbonate FEEDTUBE PRN PRN For Clogged Feeding Tube Sodium Chloride 10 ml 10/10/18 22:00 11/04/18 22:03 Sodium Chloride Flush Syringe 10 Ml IV 10 ml BID RUBI Administration Sodium Chloride 10 ml 10/10/18 18:12 Sodium Chloride Flush Syringe 10 Ml IV PRN PRN LINE FLUSH Tenofovir Disoproxil Fumarate 300 mg 10/30/18 17:45 11/03/18 17:45 Viread PO Not Given Q96H RUBI
[2018-11-05] MEDS: NYSTATIN PO SCH ×4 (10:01→22:46)
[2018-11-05] MEDS: MEPRON PO SCH ×2 (10:01→22:51)
[2018-11-05] MEDS: PREZISTA PO SCH (10:01)
[2018-11-05] MEDS: SODIUM CHLORIDE FLUSH SYRINGE 10 ML IV SCH ×3 (10:01→22:47)
[2018-11-05] MEDS: PREVACID SOLUTAB FEEDTUBE SCH ×2 (10:01→22:47)
[2018-11-05] MEDS: NORVASC PO SCH (10:01)
[2018-11-05] MEDS: NORVIR PO SCH (10:01)
[2018-11-05] MEDS: EMTRIVA PO SCH (10:01)
[2018-11-05] MEDS: THERAGRAN Tab PO SCH (10:02)
--- NOTE | 2018-11-05 11:17 | Progress Note ---
Assessment and Plan Cultures: Blood culture 10/10/2018 no growth. Sputum culture 10/10/2018 Ana Paula albicans. Crypto Ag 10/10/2018 neg. Urine culture 10/13/2018 no growth. Blood culture 10/17/2018 no growth. Blood culture 10/20/2018: no growth Stool Occult Blood 10/23/18: positive Blood culture 10/29/18: negative Urine culture 10/31/18: Ana Paula Assessment: 43 y/o male with history of HIV (unknown CD4/VL/ART intake), HTN, CVA 6 months ago at [place], Nicotine Dependence, Malnutrition; admitted on 10/10/2018 due to AMS (confusion/lethargy) and slurred speech for 24 h: 1) SIRS versus sepsis: Fevers continuing. ?drug fever,?right groin HD catheter related fevers although multiple blood cultures have remained negative. Started HIV treatment on 10/30/2018. - CXR neg - BNP 70K - Troponin 0.2 - LDH 2242 2) Acute hypoxemic respiratory failure: for airway protection +/- ? pneumonia. Repeat CXR no consolidations. Ana Paula in tracha sp likely a colonizer. Extubated 10/15. Continues on atovaquone as prophylaxis. Patient has sulfa allergy. 3) Acute encephalopathy: Improved.; multifactorial ?from hypertensive urgency +/- brain opportunistic infection. DDx: Neurosyphilis, VZV/CMV encephalitis versus PENSION EXAMINER lymphoma versus less likely PML v/s ischemic CVA (seems more likely) - CT head showed bilateral chronic ischemic changes. - Brain MRI showed areas of edema in the basal ganglia and thalami bilaterally, within the jamari and in the cerebral hemispheres bilaterally in the subcortical and deep white matter and in portions of the cortex, areas of encephalomalacia in the basal ganglia bilaterally with evidence of previous hemorrhage or mineral deposition and numerous small foci of acute infarct in the basal ganglia bilaterally, subinsular regions bilaterally and medial temporal lobes bilaterally and possibly in the occipital cortex bilaterally. - Brain MRA showed possible dissection versus artifact at the basilar artery. Luminal irregularity at the anterior, middle, and posterior cerebral arteries as well as the carotid siphons may represent mild to moderate atherosclerotic disease. More notable narrowing at the distal right A1 segment. Differential diagnosis includes motion artifact and vasculitis. Vertebral arteries are not clearly visualized. - CSF wbc 4, rbc 113, Seg 8%, Lymph 76%, protein 55, glucose 73 which is not c/w meningitis - RPR reactive 1:32 / FTA ABs reactive, treated with penicillin and ceftriaxone but CSF VDRL Non reactive. - Toxoplasma IgG negative, CSF Toxoplasma PCR: negative - Blood CMV DNA VL=1,370, 3.1 log on ganciclovir - likely reactivation - Repeat CMV DNA PCR 10/24/2018: <200. Off ganciclovir. - Glucan Assay: negative 4) Anemia/thrombocytopenia: improving. 5) Acute on CKD or SHRUTHI ? unclear etiology: on HD. 6) DM: uncontrolled. 7) HIV/AIDS: VL 320,000 / CD4=3 on 10/11/2018. Continue HIV therapy (started on ): renally adjusted TDF, FTC along with dolutegravir and ritonavir boosted darunavir. Follow up Genotype and if no resistance mutations, possibly d/c both TDF and FTC and continue nuc-sparing regimen of dolutegravir along with ritonavir boosted darunavir. Recommendations: -continue atovaquone 750 mg BID -continue HIV therapy: renally adjusted TDF, FTC along with dolutegravir and ritonavir boosted darunavir -follow up HIV Genotype [facility] M: [phone] O:[phone] Subjective Date of service: 11/05/18 Principal diagnosis: anemia Interval history: Patient seen and examined. No acute distress observed. Generalized weakness. Non-conversant today. Objective - Exam Narrative Exam: General appearance: Awake, Alert, No acute distress Eyes: anicteric sclerae, moist conjunctivae; no lid-lag; PERRLA HENT: Atraumatic; oropharynx limited Neck: Trachea midline; supple, no thyromegaly or lymphadenopathy Lungs: CTA, with normal respiratory effort, on CV: tachycardic Abdomen: Soft, non-tender;+SP cath : + rectal bag Extremities: No peripheral edema or extremity lymphadenopathy Skin: Normal temperature, turgor and texture; no rash, ulcers or subcutaneous nodules Psych: affect: Flat Neuro: Generalized weakness, not following commands - Constitutional Vitals: Vital Signs Temp Pulse Resp BP Pulse Ox 97.9 F 127 H 18 128/85 95 11/05/18 10:17 11/05/18 10:09 11/05/18 10:09 11/05/18 10:09 11/05/18 10:09 Temperature -Last 24 Hours Temperature 97.9 F Temperature 98.0 F Temperature 97.0 F Temperature 98.6 F Temperature 98.7 F - Labs CBC & Chem 7: 11/02/18 00:40 11/04/18 07:29
--- NOTE | 2018-11-05 12:21 | Progress Note ---
Assessment and Plan Assessment and plan: patient is 43 YO Male with HIV, hypertension, previous stroke, Nicotine Dependence, presents to ED for evaluation. Patient was confused and lethargic and unable to provide history. He was seen and evaluated in ED and found to be in distress and unable to protect his airway and was therefore intubated, placed on ventilator in ER then admitted MR brain 10/11 1. Study somewhat degraded by motion artifact. 2 Areas of edema in the basal ganglia and thalami bilaterally, within the jamari and in the cerebral hemispheres bilaterally in the subcortical and deep white matter and in portions of the cortex. 3. Areas of encephalomalacia in the basal ganglia bilaterally with evidence of previous hemorrhage or mineral deposition. 4. Numerous small foci of acute infarct in the basal ganglia bilaterally, subinsular regions bilaterally and medial temporal lobes bilaterally and possibly in the occipital cortex bilaterally. The above findings may be secondary to an infectious or noninfectious etiology with a component of vasculopathy or vasculitis resulting in infarcts. Viral encephalopathies and lymphoma would need to be considered in this patient with history of HIV. Neuro ams acute metabolic encephalopathy improving /Acute CVA with Bilateral infarcts with edema Consulted Neurology, he was evaluated by DR. Valentine. Could be due to possible vasculitis - further workup pending Dysphagia/ moderate malnutrition -MBS 10/23, recommended pureed with nectar thickened liquids Hematology Anemia- stable, thrombocytopenia, leukocytosis, coagulopathy; now resolved -Status post platelet and prbc transfusion, the patient had only few schistocytes on smear, ADAMS13 91% activity ID HIV/AIDS, CD4 count 3, HIV viral load 320,000 acute bacterial PNA, CMV viremia toxo neg, CSF neg Whole blood cmv PCR was positive at 1374 abx and a antiviral per ID high fever, cxr shows improvement of vasc congestion, fup blood cx, femoral Vas- Cath which is likely the source of infection was supposed to be removed after dialysis on Monday, discussed with vascular surgery, it'll hopefully be removed today after dialysis; patient needs permacath, now afebrile and BC neg per ID "-continue atovaquone 750 mg BID ,-continue HIV therapy: renally adjusted TDF, FTC along with dolutegravir and ritonavir boosted darunavir,-follow up HIV Genotype,-f/u 1,3 efll-m-[id number]" FEN/Renal SHRUTHI- ATN, Hyperkalemia, urinary retention sp SPC on 10/12 cont HD per nephrology, no signs of renal recovery Pulm acute hypoxic resp failure on MV> 96 hours self extubated 10/16, continue supplemental oxygen CVS /Hypertensive urgency and acute systolic CHF He was treated with Cardene drip which was weaned off. Optimize medications for CHF on coreg, no mik due to high K, fluid removal by dialysis Skin Stage 2 sacral wound decub . The wound was measured at 5.0x4.0. Small serous sanguineous drainage noticed from the wound. no evidence of infection, cont wound care DVT ppx- scds, given that he pw thrombocytopenia History Interval history: Patient continues to have weakness of his voice, still having fevers Review of systems Constitutional: , no malaise, no joint pains CVS: No chest pain, no orthopnea, no dyspnea on exertion, no pedal edema GI: No abdominal pain, no diarrhea, no vomiting, no constipation Respiratory: No shortness of breath, no wheezing, no coughing Hospitalist Physical - Physical exam Narrative exam: General.: Appears well, no distress, nontoxic HEENT: Moist mucous membranes, extraocular muscles intact, no lymphadenopathy Neck: supple Cardiac: S1-S2 heard Lungs: clear to auscultation bilaterally Abdomen: soft , nontender, nondistended, bowel sounds positive Extremities: no edema clubbing or cyanosis Skin: no rash or lesions Neurologic: no gross focal deficits Psych: calm, and cooperative - Constitutional Vitals: Temp Pulse Resp BP Pulse Ox 97.9 F 127 H 18 128/85 95 11/05/18 10:17 11/05/18 10:09 11/05/18 10:09 11/05/18 10:09 11/05/18 10:09 General appearance: Present: no acute distress Results - Labs CBC & Chem 7: 11/06/18 13:18 11/06/18 13:18 Labs: Laboratory Last Values WBC 9.4 K/mm3 (4.5-11.0) 11/02/18 00:40 RBC 2.80 M/mm3 (3.65-5.03) L 11/02/18 00:40 Hgb 8.2 gm/dl (11.8-15.2) L 11/02/18 00:40 Hct 25.2 % (35.5-45.6) L 11/02/18 00:40 MCV 90 fl (84-94) 11/02/18 00:40 MCH 29 pg (28-32) 11/02/18 00:40 MCHC 32 % (32-34) 11/02/18 00:40 RDW 19.8 % (13.2-15.2) H 11/02/18 00:40 Plt Count 217 K/mm3 (140-440) 11/02/18 00:40 Add Manual Diff Complete 11/02/18 00:40 Total Counted 100 11/02/18 00:40 Seg Neuts % (Manual) 68.0 % (40.0-70.0) 11/02/18 00:40 Band Neutrophils % 4.0 % 11/02/18 00:40 Lymphocytes % (Manual) 15.0 % (13.4-35.0) 11/02/18 00:40 Reactive Lymphs % (Man) 2.0 % 11/02/18 00:40 Monocytes % (Manual) 11.0 % (0.0-7.3) H 11/02/18 00:40 Eosinophils % (Manual) 0 % (0.0-4.3) 11/02/18 00:40 Basophils % (Manual) 0 % (0.0-1.8) 11/02/18 00:40 Metamyelocytes % 0 % 11/02/18 00:40 Myelocytes % 0 % 11/02/18 00:40 Promyelocytes % 0 % 11/02/18 00:40 Blast Cells % 0 % 11/02/18 00:40 Nucleated RBC % 34.0 % (0.0-0.9) H 11/02/18 00:40 Seg Neutrophils # Man 6.4 K/mm3 (1.8-7.7) 11/02/18 00:40 Band Neutrophils # 0.4 K/mm3 11/02/18 00:40 Abs Lymphs (Manual) 267 cells/uL (850-3900) L 10/11/18 17:36 Lymphocytes # (Manual) 1.4 K/mm3 (1.2-5.4) 11/02/18 00:40 Abs React Lymphs (Man) 0.2 K/mm3 11/02/18 00:40 Monocytes # (Manual) 1.0 K/mm3 (0.0-0.8) H 11/02/18 00:40 Eosinophils # (Manual) 0.0 K/mm3 (0.0-0.4) 11/02/18 00:40 Basophils # (Manual) 0.0 K/mm3 (0.0-0.1) 11/02/18 00:40 Metamyelocytes # 0.0 K/mm3 11/02/18 00:40 Myelocytes # 0.0 K/mm3 11/02/18 00:40 Promyelocytes # 0.0 K/mm3 11/02/18 00:40 Blast Cells # 0.0 K/mm3 11/02/18 00:40 Pathologist Review 10/15/18 03:14 WBC Morphology Not Reportable 11/02/18 00:40 Hypersegmented Neuts Not Reportable 11/02/18 00:40 Hyposegmented Neuts Not Reportable 11/02/18 00:40 Hypogranular Neuts Not Reportable 11/02/18 00:40 Smudge Cells Not Reportable 11/02/18 00:40 Toxic Granulation Not Reportable 11/02/18 00:40 Toxic Vacuolation Not Reportable 11/02/18 00:40 Dohle Bodies Not Reportable 11/02/18 00:40 Pelger-Huet Anomaly Not Reportable 11/02/18 00:40 Kartik Rods Not Reportable 11/02/18 00:40 Platelet Estimate Consistent w auto 11/02/18 00:40 Clumped Platelets Not Reportable 11/02/18 00:40 Plt Clumps, EDTA Not Reportable 11/02/18 00:40 Large Platelets Not Reportable 11/02/18 00:40 Giant Platelets Not Reportable 11/02/18 00:40 Platelet Satelliting Not Reportable 11/02/18 00:40 Plt Morphology Comment Not Reportable 11/02/18 00:40 RBC Morphology Not Reportable 11/02/18 00:40 Dimorphic RBCs Not Reportable 11/02/18 00:40 Polychromasia Not Reportable 11/02/18 00:40 Hypochromasia 1+ 11/02/18 00:40 Poikilocytosis 1+ 11/02/18 00:40 Anisocytosis 1+ 11/02/18 00:40 Microcytosis 1+ 11/02/18 00:40 Macrocytosis Not Reportable 11/02/18 00:40 Spherocytes Not Reportable 11/02/18 00:40 Pappenheimer Bodies Not Reportable 11/02/18 00:40 Sickle Cells Not Reportable 11/02/18 00:40 Target Cells Not Reportable 11/02/18 00:40 Tear Drop Cells Not Reportable 11/02/18 00:40 Ovalocytes Not Reportable 11/02/18 00:40 Helmet Cells Not Reportable 11/02/18 00:40 Smith-Pigeon Bodies Not Reportable 11/02/18 00:40 Noti Rings Not Reportable 11/02/18 00:40 Jani Cells Not Reportable 11/02/18 00:40 Bite Cells Not Reportable 11/02/18 00:40 Crenated Cell Not Reportable 11/02/18 00:40 Elliptocytes Not Reportable 11/02/18 00:40 Acanthocytes (Spur) Not Reportable 11/02/18 00:40 Rouleaux Not Reportable 11/02/18 00:40 Hemoglobin C Crystals Not Reportable 11/02/18 00:40 Schistocytes Rare 11/02/18 00:40 Malaria parasites Not Reportable 11/02/18 00:40 Jv Bodies Not Reportable 11/02/18 00:40 Hem Pathologist Commnt No 11/02/18 00:40 PT 14.5 Sec. (12.2-14.9) 10/15/18 00:59 INR 1.06 (0.87-1.13) 10/15/18 00:59 APTT 27.9 Sec. (24.2-36.6) 10/10/18 15:02 Thrombin Time 16.9 Sec. (15.1-19.6) 10/10/18 15:02 Heparin Anti-Xa, Unfract Negative (Negative) 10/25/18 05:59 POC ABG pH 7.514 (7.35-7.45) H 11/03/18 16:12 POC ABG pCO2 32.0 (35-45) L 10/21/18 09:49 POC ABG pO2 62 (80-105) L 11/03/18 16:12 POC ABG HCO3 23.2 (22-26 mml/L) 11/03/18 16:12 POC ABG Total CO2 24 (23-27mmol/L) 11/03/18 16:12 POC ABG O2 Sat 94 11/03/18 16:12 POC ABG Base Excess 0 ((-2) - (+3)mmol/L) 11/03/18 16:12 FiO2 4 % 11/03/18 16:12 Sodium 141 mmol/L (137-145) 11/04/18 07:29 Potassium 5.2 mmol/L (3.6-5.0) H 11/04/18 07:29 Chloride 96.7 mmol/L (98-107) L 11/04/18 07:29 Carbon Dioxide 21 mmol/L (22-30) L 11/04/18 07:29 Anion Gap 29 mmol/L 11/04/18 07:29 BUN 68 mg/dL (9-20) H 11/04/18 07:29 Creatinine 8.3 mg/dL (0.8-1.5) H 11/04/18 07:29 Estimated GFR 9 ml/min 11/04/18 07:29 BUN/Creatinine Ratio 8 % 11/04/18 07:29 Glucose 112 mg/dL (75-100) H 11/04/18 07:29 POC Glucose 139 (70-105) H 10/20/18 13:07 Osmolality 338 Mosm/kg 10/11/18 17:35 Lactic Acid 1.80 mmol/L (0.7-2.0) 10/12/18 05:59 Uric Acid 13.4 mg/dL (3.5-7.6) H 10/11/18 17:36 Calcium 8.6 mg/dL (8.4-10.2) 11/04/18 07:29 Phosphorus 8.30 mg/dL (2.5-4.5) H 10/25/18 10:00 Magnesium 3.10 mg/dL (1.7-2.3) H 10/18/18 05:03 Iron 147 ug/dL (49-181) 10/11/18 17:36 TIBC 236 mcg/dL (250-450) L 10/11/18 17:36 Ferritin 82380.0 ng/mL (13.0-400.0) H 10/11/18 17:35 Total Bilirubin 0.40 mg/dL (0.1-1.2) 10/25/18 10:00 Direct Bilirubin 0.2 mg/dL (0-0.2) 10/16/18 04:07 Indirect Bilirubin 0.3 mg/dL 10/16/18 04:07 AST 46 units/L (5-40) H 10/25/18 10:00 ALT 21 units/L (7-56) 10/25/18 10:00 Alkaline Phosphatase 102 units/L (35-129) 10/25/18 10:00 Ammonia 25.0 umol/L (25-60) 10/17/18 14:59 Lactate Dehydrogenase 925 units/L (91-180) H 10/22/18 05:51 Troponin T 0.319 ng/mL (0.00-0.029) H* 11/05/18 11:29 NT-Pro-B Natriuret Pep 02988 pg/mL (0-450) H 10/10/18 15:42 Total Protein 8.1 g/dL (6.3-8.2) 10/25/18 10:00 Albumin 3.5 g/dL (3.9-5) L 10/25/18 10:00 Albumin/Globulin Ratio 0.8 % 10/25/18 10:00 Triglycerides 329 mg/dL (2-149) H 10/10/18 15:02 Cholesterol 234 mg/dL (50-199) H 10/10/18 15:02 LDL Cholesterol Direct 139 mg/dL (50-130) H 10/10/18 15:02 HDL Cholesterol 42 mg/dL (40-59) 10/10/18 15:02 Cholesterol/HDL Ratio 5.57 % 10/10/18 15:02 Serotonin Release Assay See scanned result 10/25/18 05:59 Vitamin B12 912.3 pg/mL (211-911) H 10/14/18 08:51 Folate 8.32 ng/mL (7.3-26.0) 10/14/18 08:51 PTH Intact 388.7 pg/mL (15-65) H 10/25/18 10:00 Urine Creatinine 30.8 mg/dL (0.1-20.0) H 10/13/18 04:43 Urine Sodium 106 mmol/L 10/13/18 04:43 Urine Total Protein 75 mg/dL (5-11.8) H 10/13/18 04:43 CSF Appearance Clear 10/16/18 15:00 CSF Color Colorless 10/16/18 15:00 CSF WBC 4 /mm3 (1-10) 10/16/18 15:00 CSF RBC 113 /mm3 (0-0) 10/16/18 15:00 CSF Seg Neutrophils 8.0 % (0-6) 10/16/18 15:00 CSF Lymphocytes % 76.0 % (40-80) 10/16/18 15:00 CSF Reactive Lymphs 2.0 % 10/16/18 15:00 CSF Monocytes % 14.0 % (15-45) 10/16/18 15:00 CSF Eosinophils % 0 % 10/16/18 15:00 CSF Basophils 0 % 10/16/18 15:00 CSF Pathologist Review C 10/16/18 15:00 CSF Glucose 73 mg/dL 10/16/18 15:00 CSF Total Protein 55 mg/dL 10/16/18 15:00 CSF VDRL Nonreactive (Nonreactive) 10/16/18 15:00 Random Vancomycin 18.9 ug/mL (0-40.0) 10/29/18 07:13 Immunofix Electrophor see below 10/11/18 17:36 RENO Screen Negative (Negative) 10/21/18 15:07 Proteinase 3 (PR3) Ab <1.0 AI (<1.0) 10/21/18 15:07 Myeloperoxidase Ab <1.0 AI (<1.0) 10/21/18 15:07 Heparin-induced Plt Ab Negative (Negative) 10/25/18 05:59 UF Heparin High Dose 0 % Release 10/25/18 05:59 VJ UFH Low Dose 0.1 0 % Release 10/25/18 05:59 VJ UFH Low Dose 0.5 14 % Release 10/25/18 05:59 Lymph Enumerat CD4/CD8 0.01 (0.86-5.00) L 10/11/18 17:36 % CD3 Cells 85 % (57-85) 10/11/18 17:36 Absolute CD3 Count 226 cells/uL (840-3060) L 10/11/18 17:36 % CD4 Cells 1 % (30-61) L 10/11/18 17:36 Absolute CD4 Count 3 cells/uL (490-1740) L 10/11/18 17:36 % CD8 Cells 82 % (12-42) H 10/11/18 17:36 Absolute CD8 Count 228 cells/uL (180-1170) 10/11/18 17:36 % CD19 Cells 6 % (6-29) 10/11/18 17:36 Absolute CD19 Count 16 cells/uL (110-660) L 10/11/18 17:36 RPR Titer 1:32 10/11/18 17:37 RPR Reactive (Nonreactive) 10/11/18 17:37 T.pallidum Ab (FTA-ABS) Reactive (Nonreactive) H 10/12/18 Unknown 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 See scanned result 10/24/18 17:47 Hepatitis A IgM Ab Non-reactive (NonReactive) 10/11/18 17:34 Hep Bs Antigen Non-reactive (Negative) 10/11/18 17:34 Hep B Core IgM Ab Non-reactive (NonReactive) 10/11/18 17:34 Hepatitis C Antibody Non-reactive (NonReactive) 10/11/18 17:34 HIV-1 RNA PCR copies/ml [id number] Copies/mL H 10/11/18 17:36 HIV-1 RNA (PCR) log 5.51 Log cps/mL H 10/11/18 17:36 Toxoplasma IgG Ab <7.20 IU/mL (<7.20) 10/13/18 07:54 Miscellaneous Test Flexitest 1 10/31/18 06:43 Blood Type A POSITIVE 10/23/18 09:12 Antibody Screen Negative 10/23/18 09:12 Crossmatch See Detail 10/23/18 09:12 Active Medications - Current Medications Current Medications: Generic Name Dose Route Start Last Admin Trade Name Freq PRN Reason Stop Dose Admin Acetaminophen 500 mg 10/16/18 10:02 10/29/18 17:08 Tylenol PO 500 mg Q6H PRN Administration Fever >101 Albumin Human 25 gm 11/04/18 16:14 Alburx 25% (Albumin) IV CHON PRN Hypotension Albuterol 2.5 mg 10/10/18 18:12 Proventil IH Q3HRT PRN Shortness Of Breath Albuterol/Ipratropium 1 ampul 10/25/18 08:00 11/05/18 08:21 Duoneb *Not For Prn Use* IH 1 ampul TIDRT RUBI Administration Amlodipine Besylate 10 mg 10/11/18 10:00 11/05/18 10:01 Norvasc PO Not Given QDAY [facility] Lipase/Protease/Amylase 1 each 10/11/18 12:58 Pancrebecka Reed 10,500 Unit FEEDTUBE PRN PRN For Clogged Feeding Tube Arformoterol Tartrate 15 mcg 10/20/18 11:45 11/05/18 08:21 Brovana Nebu IH Not Given Q12HRT [facility] Atovaquone 750 mg 10/18/18 10:00 11/05/18 10:01 Mepron PO Not Given BID [facility] Carvedilol 12.5 mg 10/22/18 22:00 11/04/18 22:03 Coreg PO 12.5 mg BID RUBI Administration Darunavir 800 mg 10/30/18 18:00 11/05/18 10:01 Prezista PO Not Given QDAY [facility] Emtricitabine 200 mg 11/01/18 10:00 11/05/18 10:01 Emtriva PO Not Given Q48HR [facility] Epoetin Dany 10,000 unit 11/04/18 16:15 Procrit IV CHON PRN hemodialysis Haloperidol Lactate 5 mg 10/13/18 19:45 10/20/18 21:08 Haldol IV 5 mg Q6H PRN Administration Agitation Heparin Sodium (Porcine) 5,000 unit 11/04/18 16:15 Heparin IV COHN PRN hemodialysis Hydralazine HCl 10 mg 10/12/18 15:50 10/28/18 22:36 Apresoline IV 10 mg Q4HR PRN Administration SBP>175 or DBP>115 Hydrophilic Ointment 1 applic 10/10/18 17:53 Vaseline Lip Therapy TP Q2HR PRN Dry Lips Sodium Chloride 100 mls @ 999 mls/hr 11/04/18 16:13 Nacl 0.9% IV CHON PRN Hypotension Lansoprazole 30 mg 10/15/18 10:00 11/05/18 10:01 Prevacid Solutab FEEDTUBE Not Given BID [facility] Lorazepam 1 mg 10/13/18 19:48 10/21/18 04:09 Ativan IV 1 mg Q4H PRN Administration agitation Metoprolol Tartrate 5 mg 10/18/18 14:05 Lopressor IV Q6HR PRN Tachyarrhythmias Multi-Ingred Cream/Lotion/Oil/Oint 1 applic 10/10/18 17:53 Artificial Tears Ophth Oint OU Q4HR PRN Dry Eye(s) Multivitamins 1 each 10/11/18 10:00 11/05/18 10:02 Theragran Tab PO Not Given DAILY RUBI Nystatin 100,000 unit 11/02/18 18:00 11/05/18 10:01 Nystatin PO Not Given QID RUBI Ritonavir 100 mg 10/30/18 18:00 11/05/18 10:01 Norvir PO Not Given QDAY RUBI Simple Syrup 15 ml 10/11/18 12:58 Simple Syrup FEEDTUBE PRN PRN Hypoglycemia Simple Syrup 30 ml 10/11/18 12:58 Simple Syrup FEEDTUBE PRN PRN Hypoglycemia Sodium Bicarbonate 325 mg 10/11/18 12:58 Sodium Bicarbonate FEEDTUBE PRN PRN For Clogged Feeding Tube Sodium Chloride 10 ml 10/10/18 22:00 11/05/18 10:02 Sodium Chloride Flush Syringe 10 Ml IV Not Given BID RUBI Sodium Chloride 10 ml 10/10/18 18:12 Sodium Chloride Flush Syringe 10 Ml IV PRN PRN LINE FLUSH Tenofovir Disoproxil Fumarate 300 mg 10/30/18 17:45 11/03/18 17:45 Viread PO Not Given Q96H [facility] Nutrition/Malnutrition Assess - Dietary Evaluation Nutrition/Malnutrition Findings: Nutrition Notes Start: 10/11/18 11:14 Freq: Status: Active Protocol: Document 11/01/18 14:39 RM (Rec: 11/01/18 14:53 RM [id number]) Nutrition Notes Initial or Follow up Reassessment Current Diagnosis Acute Kidney Injury,CKD(stage I-IV),Hypertension,Stroke Other Pertinent Diagnosis on HD, Acute encephalopathy, HIV/AIDS, Syphilis, dysphagia Current Diet NPO Labs/Tests Reviewed Pertinent Medications Reviewed Height 5 ft 9 in Weight 51.5 kg [place] Body Weight (kg) 72.72 BMI 16.7 Weight change and time frame Current wt obtained from [facility]. Previous wt likely inaccurate or d/t fluid change . Subjective/Other Information Recorded PO intake 42% X 3 meals. Tech unsure if pt drank Nepro prior to NPO status. Pt planned to start HD per progress note 11/01/18. Percent of energy/protein needs met: 53%/52% Burn Absent Trauma Absent #1 Nutrition Diagnosis Inadequate oral intake Diagnosis Progress(for reassessment Continues documentation) Is patient on ventilator? No Is Patient Ambulatory and/or Out of Bed No REE-([facility]-confined to bed) 3605.088 Calculation Used for Recommendations [facility] Additional Notes Pro needs 1.2-1.5g/k-79g/ day Fluid needs 1ml/kcal Nutrition Intervention Change Diet Order: Advance diet when medically able Add Supplement/Snack (indicate name/kcal Nepro 1 daily once diet /protein ) advanced Provides kCal: 425 Provides Protein (gm) 19 Goal #1 Meet at least 75% of calorie and protein needs via PO and ONS intakes Anticipated Discharge Needs: Pureed, Renal diet Follow-Up By: 11/06/18 Additional Comments Follow for PO and ONS intakes
[2018-11-05 12:26] LABS: Chol/HDL Ratio 5.8 %
--- NOTE | 2018-11-05 12:47 | Progress Note ---
Assessment and Plan HIV Systemic Hypertension History of CVA 6 months ago at [place] Nicotine dependence Malnutrition Sepsis - resolving s/p acute hypoxemic respiratory failure s/p acute encephalopathy - improving Anemia Thrombocytopenia -resolved Acute on chronic renal failure initiated on dialysis Type II DM Reflex sinus tachycardia BRIANNE 10/2018: No cardioembolic source, LVEF 45-50% Subjective Date of service: 11/05/18 Principal diagnosis: anemia Interval history: Cardiology re-called for sinus tachycardia. Patient nods head no when asked if he has chest pain or palpitations. Objective Vital Signs Temp Pulse Pulse Pulse Resp Resp Resp 11/05/18 10:17 97.9 F 11/05/18 10:09 127 H 18 11/05/18 08:48 11/05/18 08:38 128 H 22 11/05/18 08:21 99 H 25 H 11/05/18 05:02 98.0 F 123 H 16 11/04/18 22:59 97.0 F L 128 H 18 11/04/18 22:03 126 H 11/04/18 21:51 11/04/18 21:50 112 H 20 11/04/18 21:46 112 H 20 11/04/18 18:06 98.6 F 115 H 24 11/04/18 14:57 110 H 20 11/04/18 14:47 104 H 20 BP BP Pulse Ox 11/05/18 10:17 11/05/18 10:09 128/85 95 11/05/18 08:48 97 11/05/18 08:38 11/05/18 08:21 11/05/18 05:02 123/81 93 11/04/18 22:59 130/87 98 11/04/18 22:03 120/77 11/04/18 21:51 97 11/04/18 21:50 97 11/04/18 21:46 11/04/18 18:06 124/86 100 11/04/18 14:57 11/04/18 14:47 - Physical Examination Neck: Positive: neck supple Abdomen: Positive: Soft Extremities: Absent: edema - Labs and Meds Lipids 11/05/18 Range/Units 11:29 Triglycerides 306 H (2-149) mg/dL Cholesterol 145 (50-199) mg/dL HDL Cholesterol 25 L (40-59) mg/dL Cholesterol/HDL Ratio 5.80 %
[2018-11-05] MEDS ORDERED: SUBLIMAZE ONE (13:38)
[2018-11-05] MEDS ORDERED: BREVIBLOC IV ONE (13:38)
[2018-11-05] MEDS ORDERED: XYLOCAINE MPF 2% ONE (13:38)
[2018-11-05] MEDS ORDERED: DIPRIVAN 10 MG/ML IV ONE ×3 (13:39→13:41)
[2018-11-05] MEDS: COREG PO SCH ×3 (13:42→22:46)
[2018-11-05] MEDS: TIVICAY PO SCH (13:42)
[2018-11-05] MEDS ORDERED: HEPARIN/NS 5000 UNIT/500ML(CATH LAB) 0 ML IR ONE (15:07)
[2018-11-05] MEDS ORDERED: NACL 0.9% 500 ML 500 ML ONE (15:08)
[2018-11-05] MEDS ORDERED: ANCEF/STERILE WATER 2 GM/20 ML 0 GM/0 ML SYRINGE IV ONE (15:08)
[2018-11-05] MEDS ORDERED: XYLOCAINE 1%/ EPI 1:100,000 INFILTRATI ONE (15:08)
[2018-11-05] MEDS ORDERED: HEPARIN 10,000 UNITS/10 ML ONE (15:09)
--- NOTE | 2018-11-05 15:55 | Event Note ---
Date: 11/05/18 Patient was brought to [facility] PAC[facility] in preparation for permcath vs VasCath placement in the IJ. Howerver, patient was found to be spiking fever 102.6. Patient cannot be given rectal medications, the only route is PO with apple sauce. It is unsafe to perform procedure now. Will reschedule procedure with anesthesia when safe.
[2018-11-05] MEDS: TYLENOL PO PRN (16:40)
[2018-11-05] MEDS: D5W 1,000 ML IV SCH (22:45)
[2018-11-06] MEDS: DUONEB *Not for PRN Use IH SCH ×3 (07:36→20:44)
--- NOTE | 2018-11-06 08:46 | Progress Note ---
Assessment and Plan Assessment: * Acute kidney injury secondary to ATN vs HIVAN * HIV/AIDS * Acute encephalopathy * Acute hypoxic respiratory failure * Hx of urinary retention * Hypertension * Diarrhea * Hyperkalemia Plan: * AM labs are pending * Patient is s/p HD yesterday * Note fever, will remove vascath - discussed with lime trimmer * UF as tolerated * ID recommendations reviewed - antiretroviral treatment started 10/30 * Monitor for evidence of recovery * Epogen TIW prn * Continue antiHTN medications . Subjective Date of service: 11/06/18 Principal diagnosis: anemia Interval history: 24h events noted Objective - Vital Signs Vital signs: Vital Signs - 12hr 11/05/18 11/05/18 11/05/18 21:00 21:15 21:30 Temperature Pulse Rate 130 H 130 H 130 H Pulse Rate [ Bilateral Throughout] Respiratory Rate Respiratory Rate [Bilateral Throughout] Blood Pressure 120/75 126/73 123/75 O2 Sat by Pulse Oximetry 11/05/18 11/05/18 11/05/18 21:45 22:00 23:51 Temperature 100.3 F H 99.0 F Pulse Rate 130 H 129 H 129 H Pulse Rate [ Bilateral Throughout] Respiratory 18 18 Rate Respiratory Rate [Bilateral Throughout] Blood Pressure 124/69 118/75 115/77 O2 Sat by Pulse 96 Oximetry 11/06/18 11/06/18 11/06/18 07:30 07:38 07:49 Temperature Pulse Rate Pulse Rate [ 114 H 114 H Bilateral Throughout] Respiratory Rate Respiratory 20 18 Rate [Bilateral Throughout] Blood Pressure O2 Sat by Pulse 100 Oximetry - General Appearance General appearance: cachectic, chronically ill, frail EENT: ATNC Respiratory: Present: Clear to Ascultation Cardiology: regular, S1S2 Gastrointestinal: normal, no tenderness, no distended Musculoskeletal: other (no edema) Psychiatric: cooperative - Lab 11/06/18 13:18 11/06/18 13:18 Most recent lab results Calcium 8.6 mg/dL (8.4-10.2) 11/04/18 07:29 Phosphorus 8.30 mg/dL (2.5-4.5) H 10/25/18 10:00 Magnesium 3.10 mg/dL (1.7-2.3) H 10/18/18 05:03 Urine Creatinine 30.8 mg/dL (0.1-20.0) H 10/13/18 04:43 Urine Sodium 106 mmol/L 10/13/18 04:43 Urine Total Protein 75 mg/dL (5-11.8) H 10/13/18 04:43 Medications & Allergies - Medications Allergies/Adverse Reactions: Allergies Sulfa (Sulfonamide Antibiotics) Allergy (Verified 10/10/18 16:54) Unknown Home Medications: Home Medications Medication Instructions Recorded Confirmed Last Taken Type Acetaminophen [Tylenol] 1,000 mg PO Q6HR 10/10/18 10/10/18 Unknown History Amlodipine Besylate [Norvasc] 10 mg PO QDAY 10/10/18 10/10/18 Unknown History Aspirin [Adult Aspirin] 81 mg PO DAILY 10/10/18 10/10/18 Unknown History Atorvastatin [Lipitor Tab] 80 mg PO DAILY 10/10/18 10/10/18 Unknown History Losartan [Cozaar] 100 mg PO QDAY 10/10/18 10/10/18 Unknown History Multivitamin [Multiple Vitamins] 1 each PO DAILY 10/10/18 10/10/18 Unknown Hist ory hydroCHLOROthiazide [HCTZ] 25 mg PO QDAY 10/10/18 10/10/18 Unknown History Active Medications: Generic Name Dose Route Start Last Admin Trade Name Freq PRN Reason Stop Dose Admin Acetaminophen 500 mg 10/16/18 10:02 11/05/18 16:40 Tylenol PO 500 mg Q6H PRN Administration Fever >101 Albumin Human 25 gm 11/04/18 16:14 Alburx 25% (Albumin) IV CHON PRN Hypotension Albuterol 2.5 mg 10/10/18 18:12 Proventil IH Q3HRT PRN Shortness Of Breath Albuterol/Ipratropium 1 ampul 10/25/18 08:00 11/06/18 07:36 Duoneb *Not For Prn Use* IH 1 ampul TIDRT RUBI Administration Amlodipine Besylate 10 mg 10/11/18 10:00 11/05/18 10:01 Norvasc PO Not Given QDAY RUBI Lipase/Protease/Amylase 1 each 10/11/18 12:58 Pancrebecka Reed 10,500 Unit FEEDTUBE PRN PRN For Clogged Feeding Tube Arformoterol Tartrate 15 mcg 10/20/18 11:45 11/05/18 08:21 Brovana Nebu IH Not Given Q12HRT RUBI Atovaquone 750 mg 10/18/18 10:00 11/05/18 22:51 Mepron PO 750 mg BID RUBI Administration Carvedilol 12.5 mg 10/22/18 22:00 11/05/18 22:46 Coreg PO 12.5 mg BID RUBI Administration Darunavir 800 mg 10/30/18 18:00 11/05/18 10:01 Prezista PO Not Given QDAY RUBI Emtricitabine 200 mg 11/01/18 10:00 11/05/18 10:01 Emtriva PO Not Given Q48HR RUBI Epoetin Dany 10,000 unit 11/04/18 16:15 Procrit IV CHON PRN hemodialysis Haloperidol Lactate 5 mg 10/13/18 19:45 10/20/18 21:08 Haldol IV 5 mg Q6H PRN Administration Agitation Heparin Sodium (Porcine) 5,000 unit 11/04/18 16:15 Heparin IV CHON PRN hemodialysis Hydralazine HCl 10 mg 10/12/18 15:50 10/28/18 22:36 Apresoline IV 10 mg Q4HR PRN Administration SBP>175 or DBP>115 Hydrophilic Ointment 1 applic 10/10/18 17:53 Vaseline Lip Therapy TP Q2HR PRN Dry Lips Sodium Chloride 100 mls @ 999 mls/hr 11/04/18 16:13 Nacl 0.9% IV CHON PRN Hypotension Dextrose 1,000 mls @ 42 mls/hr 11/05/18 19:00 11/05/18 22:45 D5w IV 42 mls/hr DIRECT RUBI Administration Lansoprazole 30 mg 10/15/18 10:00 11/05/18 22:47 Prevacid Solutab FEEDTUBE 30 mg BID RUBI Administration Lorazepam 1 mg 10/13/18 19:48 10/21/18 04:09 Ativan IV 1 mg Q4H PRN Administration agitation Metoprolol Tartrate 5 mg 10/18/18 14:05 Lopressor IV Q6HR PRN Tachyarrhythmias Multi-Ingred Cream/Lotion/Oil/Oint 1 applic 10/10/18 17:53 Artificial Tears Ophth Oint OU Q4HR PRN Dry Eye(s) Multivitamins 1 each 10/11/18 10:00 11/05/18 10:02 Theragran Tab PO Not Given DAILY RUBI Nystatin 100,000 unit 11/02/18 18:00 11/05/18 22:46 Nystatin PO 100,000 unit QID RUBI Administration Ritonavir 100 mg 10/30/18 18:00 11/05/18 10:01 Norvir PO Not Given QDAY RUBI Simple Syrup 15 ml 10/11/18 12:58 Simple Syrup FEEDTUBE PRN PRN Hypoglycemia Simple Syrup 30 ml 10/11/18 12:58 Simple Syrup FEEDTUBE PRN PRN Hypoglycemia Sodium Bicarbonate 325 mg 10/11/18 12:58 Sodium Bicarbonate FEEDTUBE PRN PRN For Clogged Feeding Tube Sodium Chloride 10 ml 10/10/18 22:00 11/05/18 22:47 Sodium Chloride Flush Syringe 10 Ml IV 10 ml BID RUBI Administration Sodium Chloride 10 ml 10/10/18 18:12 Sodium Chloride Flush Syringe 10 Ml IV PRN PRN LINE FLUSH Tenofovir Disoproxil Fumarate 300 mg 10/30/18 17:45 11/03/18 17:45 Viread PO Not Given Q96H RUBI
--- NOTE | 2018-11-06 10:23 | Hem/Onc Progress Note ---
Assessment and Plan 1. Anemia. At admission, hemoglobin was 8.1, later low and s/p Transfusion support. 2. Platelets at admission was 20. 3. White cell count was elevated. 4. PT/INR h/o slightly elevated. 5. Renal failure. 6. ALT elevated. 7. The patient has multiple medical issues. PLAN: I will ask for a smear evaluation. I will call the lab for same. Supportive care in the interim while we looked for primary etiology. 3 - plt better - s/p transfusion d/w dr rain and dr carrillo 10/14 - low plt - rasta ctive bleed suprapubic catheter 10/15 - plt were rising and again going down' pt had got plt transfusion LDH high - [id number] ordered smear - ordererd LDH may be high in other causes too - renal etc 10/16 - d/w path - not many schistocytes on smear - ADAMTS 13 ordered extubated 10/17 - plt low - path review ordered d/w armin monsalve 10/18 - path report pending plt low - but no active bleeding 10/19 - pt more alert - follows commands no bleeding 10/20 pt SOB - d/w Dr Monsalve and RN plt low - but no bleeding NGT+ more awake 10/21 - pt in [facility] plt >100 - more awake 10/22 - clinically better - moves all 4 limbs 10/23 - clinically stable - prbc suport 10/24 - as per RN -pt passed barium - for thickened diet pt has suprapubic got PRBC plt improving 10/25 - clinically better no active bleeding 10/26 - moving all extremity -communicating repeat cbc 10/27 - labs better - clinically improving 10/28 - plt now normal - hb better - s/p PRBC recent CKD may have a role 10/29 - pt clinically stable - 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 - electrolyte abn 10/30 - cbc improving - pt had question reg rectal tube - he will d/w other MDs 10/31 - plt better - hb better - OP follow up an option 11/01 - labs follow up 11/02 anemia d/w rn - rectal tube - decubiti suprapubic HD cath change planned 11/03/2018 pt getting HD rectal tube present 11/04- on o2 will follow labs gets HD 11/05 anemia slight SOB - on o2 HD cath 11/06 - d/w dr Shen reg pt anemia HD cath fever issues - Patient Problems (1) Thrombocytopenia associated with AIDS Current Visit: Yes Status: Acute (2) Anemia Current Visit: Yes Status: Acute Qualifiers: Anemia type: due to chronic kidney disease Chronic kidney disease stage: unspecified stage Qualified Code(s): N18.9 - Chronic kidney disease, unspecified; D63.1 - Anemia in chronic kidney disease Subjective Date of service: 11/06/18 Principal diagnosis: HIV - anemia Objective - Constitutional Vitals: Last Vital Signs Temp 99.0 F 11/05/18 23:51 Pulse 114 H 11/06/18 07:49 Resp 18 11/06/18 07:49 BP 115/77 11/05/18 23:51 Pulse Ox 100 11/06/18 07:30 Pain Intensity (0-10): denies any pain General appearance: mild distress Performance status: 4-completely disabled - EENT Eyes: EOM intact ENT: hearing intact Lymph node exam: negative cervical - Neck Neck: normal ROM - Respiratory Respiratory effort: Positive: normal Respiratory: bilateral: diminished (poor effort) - Cardiovascular Heart Sounds: Present: S1 & S2 Extremities: No edema - Gastrointestinal General gastrointestinal: Present: soft Rectal Exam: deferred - Genitourinary Male genitourinary: Present: deferred - Integumentary Integumentary: warm - Musculoskeletal Musculoskeletal: generalized weakness - Neurologic Neurologic: moves all extremities - Labs Lab Results: Laboratory Results - last 24 hr 11/05/18 11/05/18 11/05/18 11:29 16:43 22:49 Troponin T 0.319 H* 0.305 H* 0.381 H* D Triglycerides 306 H Cholesterol 145 LDL Cholesterol Direct 89 HDL Cholesterol 25 L Cholesterol/HDL Ratio 5.80 11/06/18 05:54 Troponin T 0.357 H* Triglycerides Cholesterol LDL Cholesterol Direct HDL Cholesterol Cholesterol/HDL Ratio Medications & Allergies - Medications Allergies/Adverse Reactions: Allergies Sulfa (Sulfonamide Antibiotics) Allergy (Verified 10/10/18 16:54) Unknown Home Medications: Home Medications Medication Instructions Recorded Confirmed Last Taken Type Acetaminophen [Tylenol] 1,000 mg PO Q6HR 10/10/18 10/10/18 Unknown History Amlodipine Besylate [Norvasc] 10 mg PO QDAY 10/10/18 10/10/18 Unknown History Aspirin [Adult Aspirin] 81 mg PO DAILY 10/10/18 10/10/18 Unknown History Atorvastatin [Lipitor Tab] 80 mg PO DAILY 10/10/18 10/10/18 Unknown History Losartan [Cozaar] 100 mg PO QDAY 10/10/18 10/10/18 Unknown History Multivitamin [Multiple Vitamins] 1 each PO DAILY 10/10/18 10/10/18 Unknown History hydroCHLOROthiazide [HCTZ] 25 mg PO QDAY 10/10/18 10/10/18 Unknown History Active Medications: Generic Name Dose Route Start Last Admin Trade Name Freq PRN Reason Stop Dose Admin Acetaminophen 500 mg 10/16/18 10:02 11/05/18 16:40 Tylenol PO 500 mg Q6H PRN Administration Fever >101 Albumin Human 25 gm 11/04/18 16:14 Alburx 25% (Albumin) IV CHON PRN Hypotension Albuterol 2.5 mg 10/10/18 18:12 Proventil IH Q3HRT PRN Shortness Of Breath Albuterol/Ipratropium 1 ampul 10/25/18 08:00 11/06/18 07:36 Duoneb *Not For Prn Use* IH 1 ampul TIDRT RUBI Administration Amlodipine Besylate 10 mg 10/11/18 10:00 11/05/18 10:01 Norvasc PO Not Given QDAY [facility] Lipase/Protease/Amylase 1 each 10/11/18 12:58 Pancreaze 10,500 Unit FEEDTUBE PRN PRN For Clogged Feeding Tube Arformoterol Tartrate 15 mcg 10/20/18 11:45 11/05/18 08:21 Bromarizola Gemma IH Not Given Q12HRT RUBI Atovaquone 750 mg 10/18/18 10:00 11/05/18 22:51 Mepron PO 750 mg BID RUBI Administration Carvedilol 12.5 mg 10/22/18 22:00 11/05/18 22:46 Coreg PO 12.5 mg BID RUBI Administration Darunavir 800 mg 10/30/18 18:00 11/05/18 10:01 Prezista PO Not Given QDAY RUBI Emtricitabine 200 mg 11/01/18 10:00 11/05/18 10:01 Emtriva PO Not Given Q48HR RUBI Epoetin Dany 10,000 unit 11/04/18 16:15 Procrit IV CHON PRN hemodialysis Haloperidol Lactate 5 mg 10/13/18 19:45 10/20/18 21:08 Haldol IV 5 mg Q6H PRN Administration Agitation Heparin Sodium (Porcine) 5,000 unit 11/04/18 16:15 Heparin IV CHON PRN hemodialysis Hydralazine HCl 10 mg 10/12/18 15:50 10/28/18 22:36 Apresoline IV 10 mg Q4HR PRN Administration SBP>175 or DBP>115 Hydrophilic Ointment 1 applic 10/10/18 17:53 Vaseline Lip Therapy TP Q2HR PRN Dry Lips Sodium Chloride 100 mls @ 999 mls/hr 11/04/18 16:13 Nacl 0.9% IV CHON PRN Hypotension Dextrose 1,000 mls @ 42 mls/hr 11/05/18 19:00 11/05/18 22:45 D5w IV 42 mls/hr DIRECT RUBI Administration Lansoprazole 30 mg 10/15/18 10:00 11/05/18 22:47 Prevacid Solutab FEEDTUBE 30 mg BID RUBI Administration Lorazepam 1 mg 10/13/18 19:48 10/21/18 04:09 Ativan IV 1 mg Q4H PRN Administration agitation Metoprolol Tartrate 5 mg 10/18/18 14:05 Lopressor IV Q6HR PRN Tachyarrhythmias Multi-Ingred Cream/Lotion/Oil/Oint 1 applic 10/10/18 17:53 Artificial Tears Ophth Oint OU Q4HR PRN Dry Eye(s) Multivitamins 1 each 10/11/18 10:00 11/05/18 10:02 Theragran Tab PO Not Given DAILY RUBI Nystatin 100,000 unit 11/02/18 18:00 11/05/18 22:46 Nystatin PO 100,000 unit QID RUBI Administration Ritonavir 100 mg 10/30/18 18:00 11/05/18 10:01 Norvir PO Not Given QDAY RUBI Simple Syrup 15 ml 10/11/18 12:58 Simple Syrup FEEDTUBE PRN PRN Hypoglycemia Simple Syrup 30 ml 10/11/18 12:58 Simple Syrup FEEDTUBE PRN PRN Hypoglycemia Sodium Bicarbonate 325 mg 10/11/18 12:58 Sodium Bicarbonate FEEDTUBE PRN PRN For Clogged Feeding Tube Sodium Chloride 10 ml 10/10/18 22:00 11/05/18 22:47 Sodium Chloride Flush Syringe 10 Ml IV 10 ml BID RUBI Administration Sodium Chloride 10 ml 10/10/18 18:12 Sodium Chloride Flush Syringe 10 Ml IV PRN PRN LINE FLUSH Tenofovir Disoproxil Fumarate 300 mg 10/30/18 17:45 11/03/18 17:45 Viread PO Not Given Q96H RUBI
--- NOTE | 2018-11-06 10:25 | Progress Note ---
Assessment and Plan Cultures: Blood culture 10/10/2018 no growth. Sputum culture 10/10/2018 Ana Paula albicans. Crypto Ag 10/10/2018 neg. Urine culture 10/13/2018 no growth. Blood culture 10/17/2018 no growth. Blood culture 10/20/2018: no growth Stool Occult Blood 10/23/18: positive Blood culture 10/29/18: negative Urine culture 10/31/18: Ana Paula Assessment: 43 y/o male with history of HIV (unknown CD4/VL/ART intake), HTN, CVA 6 months ago at [place], Nicotine Dependence, Malnutrition; admitted on 10/10/2018 due to AMS (confusion/lethargy) and slurred speech for 24 h: 1) SIRS versus sepsis:Still spiking fevers. ?drug fever, ?CLABSI, Right IJ VAS cath placed today. Femoral HD cath removed. Started HIV treatment on 10/30/2018. - CXR neg - BNP 70K - Troponin 0.2 - LDH 2242 2) Acute hypoxemic respiratory failure: for airway protection +/- ? pneumonia. Repeat CXR no consolidations. Ana Paula in tracha sp likely a colonizer. Extubated 10/15. Continues on atovaquone as prophylaxis. Patient has sulfa allergy. 3) Acute encephalopathy: Improved.; multifactorial ?from hypertensive urgency +/- brain opportunistic infection. DDx: Neurosyphilis, VZV/CMV encephalitis versus [employer] lymphoma versus less likely PML v/s ischemic CVA (seems more likely) - CT head showed bilateral chronic ischemic changes. - Brain MRI showed areas of edema in the basal ganglia and thalami bilaterally, within the jamari and in the cerebral hemispheres bilaterally in the subcortical and deep white matter and in portions of the cortex, areas of encephalomalacia in the basal ganglia bilaterally with evidence of previous hemorrhage or mineral deposition and numerous small foci of acute infarct in the basal ganglia bilaterally, subinsular regions bilaterally and medial temporal lobes bilaterally and possibly in the occipital cortex bilaterally. - Brain MRA showed possible dissection versus artifact at the basilar artery. Luminal irregularity at the anterior, middle, and posterior cerebral arteries as well as the carotid siphons may represent mild to moderate atherosclerotic disease. More notable narrowing at the distal right A1 segment. Differential diagnosis includes motion artifact and vasculitis. Vertebral arteries are not cl early visualized. - CSF wbc 4, rbc 113, Seg 8%, Lymph 76%, protein 55, glucose 73 which is not c/w meningitis - RPR reactive 1:32 / FTA ABs reactive, treated with penicillin and ceftr iaxone but CSF VDRL Non reactive. - Toxoplasma IgG negative, CSF Toxoplasma PCR: negative - Blood CMV DNA VL=1,370, 3.1 log on ganciclovir - likely reactivation - Repeat CMV DNA PCR 10/24/2018: <200. Off ganciclovir. - Glucan Assay: negative 4) Anemia/thrombocytopenia: improving. 5) Acute on CKD or SHRUTHI ? unclear etiology: on HD. 6) DM: uncontrolled. 7) HIV/AIDS: VL 320,000 / CD4=3 on 10/11/2018. Continue HIV therapy (started on 10/30/2018): renally adjusted TDF, FTC along with dolutegravir and ritonavir boosted darunavir. Follow up Genotype and if no resistance mutations, possibly d/c both TDF and FTC and continue nuc-sparing regimen of dolutegravir along with ritonavir boosted darunavir. Recommendations: -continue atovaquone 750 mg BID -continue HIV therapy: renally adjusted TDF, FTC along with dolutegravir and ritonavir boosted darunavir -follow up HIV Genotype -f/u repeat blood cultures -continue to monitor fevers, if no resolution will start ceftriaxone and vancomycin [facility] M: [id number] O:[phone] Subjective Date of service: 11/06/18 Principal diagnosis: anemia Interval history: Patient seen and examined. No acute distress observed. Generalized weakness. Non-conversant today. Objective - Exam Narrative Exam: General appearance: Awake, Alert, No acute distress Eyes: anicteric sclerae, moist conjunctivae; no lid-lag; PERRLA HENT: Atraumatic; oropharynx limited Neck: Trachea midline; supple, no thyromegaly or lymphadenopathy Lungs: CTA, with normal respiratory effort, on CV: tachycardic Abdomen: Soft, non-tender;+SP cath : + rectal bag Extremities: No peripheral edema or extremity lymphadenopathy Skin: Normal temperature, turgor and texture; no rash, ulcers or subcutaneous nodules Psych: affect: Flat Neuro: Generalized weakness, not following commands - Constitutional Vitals: Vital Signs Temp Pulse Resp BP Pulse Ox 99.0 F 114 H 18 115/77 100 11/05/18 23:51 11/06/18 07:49 11/06/18 07:49 11/05/18 23:51 11/06/18 07:30 Temperature -Last 24 Hours Temperature 99.0 F Temperature 100.3 F Temperature 100.5 F Temperature 101.8 F Temperature 98.0 F Temperature 102.6 F Temperature 97.9 F - Labs CBC & Chem 7: 11/06/18 13:18 11/06/18 13:18 Labs: Abnormal lab results 11/05/18 11/05/18 11/05/18 Range/Units 11:29 16:43 22:49 Troponin T 0.319 H* 0.305 H* 0.381 H* D (0.00-0.029) ng/mL Triglycerides 306 H (2-149) mg/dL HDL Cholesterol 25 L (40-59) mg/dL 11/06/18 Range/Units 05:54 Troponin T 0.357 H* (0.00-0.029) ng/mL Triglycerides (2-149) mg/dL HDL Cholesterol (40-59) mg/dL
[2018-11-06] MEDS: TIVICAY PO SCH (12:46)
[2018-11-06] MEDS: NORVASC PO SCH (12:46)
[2018-11-06] MEDS: COREG PO SCH ×2 (12:46→22:23)
[2018-11-06] MEDS: MEPRON PO SCH ×2 (12:46→22:20)
[2018-11-06] MEDS: THERAGRAN Tab PO SCH (12:46)
[2018-11-06] MEDS: SODIUM CHLORIDE FLUSH SYRINGE 10 ML IV SCH ×2 (12:47→22:20)
[2018-11-06] MEDS: NYSTATIN PO SCH ×4 (12:47→22:00)
[2018-11-06] MEDS: PREZISTA PO SCH (12:47)
[2018-11-06] MEDS: NORVIR PO SCH (12:47)
[2018-11-06] MEDS: PREVACID SOLUTAB FEEDTUBE SCH ×2 (12:47→22:24)
[2018-11-06] MEDS ORDERED: XYLOCAINE 1%/ EPI 1:100,000 INFILTRATI ONE (12:58)
[2018-11-06] MEDS ORDERED: HEPARIN/NS 5000 UNIT/500ML(CATH LAB) 500 ML IR ONE (12:58)
[2018-11-06] MEDS ORDERED: HEPARIN/ 0.45% NACL-25,000 UNIT/500 ML 25,000 UNIT/500 ML BAG IV SCH (13:00)
[2018-11-06] MEDS: HEPARIN 10,000 UNITS/10 ML ONE ×2 (13:17→13:18)
--- NOTE | 2018-11-06 13:29 | Post Operative Note ---
Date of procedure: 11/06/18 Pre-op diagnosis: Renal failure Post-op diagnosis: same Findings: Patent RIJ, successful placement of RIJ VC Procedure: 1. U/sg puncture RIJ vein 2. Insertion RIJ vas cath (6in pre-curved medcomp vas cath) Anesthesia: local Surgeon: DIPIKA BCEK Estimated blood loss: minimal Pathology: none Condition: stable Disposition: floor
[2018-11-06 14:21] LABS: Hematocrit 27.2 % (35.5-45.6); Hemoglobin 8.6 gm/dl (11.8-15.2); Mean Corpuscular HGB Conc 32 % (32-34); Mean Corpuscular Volume 91 fl (84-94); Platelet Count 195 K/mm3 (140-440); Red Blood Count 2.97 M/mm3 (3.65-5.03)
[2018-11-06 14:23] LABS: Red Cell Distribution Width 20.7 % (13.2-15.2)
[2018-11-06 14:27] LABS: INR 1.36 (0.87-1.13)
[2018-11-06 14:28] LABS: Partial Thromboplastin Time 30.6 Sec. (24.2-36.6)
[2018-11-06 14:36] LABS: Calcium 8.8 mg/dL (8.4-10.2)
--- NOTE | 2018-11-06 16:05 | Progress Note ---
Assessment and Plan Assessment and plan: patient is 43 YO Male with HIV, hypertension, previous stroke, Nicotine Dependence, presents to ED for evaluation. Patient was confused and lethargic and unable to provide history. He was seen and evaluated in ED and found to be in distress and unable to protect his airway and was therefore intubated, placed on ventilator in ER then admitted MR brain 10/11 1. Study somewhat degraded by motion artifact. 2 Areas of edema in the basal ganglia and thalami bilaterally, within the jamari and in the cerebral hemispheres bilaterally in the subcortical and deep white matter and in portions of the cortex. 3. Areas of encephalomalacia in the basal ganglia bilaterally with evidence of previous hemorrhage or mineral deposition. 4. Numerous small foci of acute infarct in the basal ganglia bilaterally, subinsular regions bilaterally and medial temporal lobes bilaterally and possibly in the occipital cortex bilaterally. The above findings may be secondary to an infectious or noninfectious etiology with a component of vasculopathy or vasculitis resulting in infarcts. Viral encephalopathies and lymphoma would need to be considered in this patient with history of HIV. Neuro ams acute metabolic encephalopathy improving /Acute CVA with Bilateral infarcts with edema Consulted Neurology, he was evaluated by DR. Valentine. Could be due to possible vasculitis - further workup pending Dysphagia/ moderate malnutrition -MBS 10/23, recommended pureed with nectar thickened liquids Hematology Anemia- stable, thrombocytopenia, leukocytosis, coagulopathy; now resolved -Status post platelet and prbc transfusion, the patient had only few schistocytes on smear, ADAMS13 91% activity ID HIV/AIDS, CD4 count 3, HIV viral load 320,000 acute bacterial PNA, CMV viremia toxo neg, CSF neg Whole blood cmv PCR was positive at 1374 abx and a antiviral per ID high fever, cxr shows improvement of vasc congestion, fup blood cx, fenirak vas cath removed 11/06, now has IJ vas cath -he was put back on HAART, he likely has component of IRIS causing fevers and sob -CT on 11/06 confirms patchy infiltrate IRIS vs pna, abx per ID FEN/Renal SHRUTHI- ATN, Hyperkalemia, urinary retention sp SPC on 10/12 cont HD per nephrology, no signs of renal recovery Pulm acute hypoxic resp failure on MV> 96 hours self extubated 10/16, continue supplemental oxygen CTA neg for PE on 11/06 CVS /Hypertensive urgency and acute systolic CHF He was treated with Cardene drip which was weaned off. Optimize medications for CHF on coreg, no mik due to high K, fluid removal by dialysis Skin Stage 2 sacral wound decub . The wound was measured at 5.0x4.0. Small serous sanguineous drainage noticed from the wound. no evidence of infection, cont wound care DVT ppx- scds, given that he pw thrombocytopenia History Interval history: Patient continues to have weakness of his voice, fevers resolved Review of systems Constitutional: ,overall malaise CVS: No chest pain, no orthopnea, no dyspnea on exertion, no pedal edema GI: No abdominal pain, no diarrhea, no vomiting, no constipation Respiratory: having shortness of breath, no wheezing, also has dry coughing Hospitalist Physical - Physical exam Narrative exam: General.: Appears well, no distress, nontoxic HEENT: Moist mucous membranes, extraocular muscles intact, no lymphadenopathy Neck: supple Cardiac: S1-S2 heard Lungs: rales Abdomen: soft , nontender, nondistended, bowel sounds positive Extremities: no edema clubbing or cyanosis Skin: no rash or lesions Neurologic: no gross focal deficits Psych: calm, and cooperative - Constitutional Vitals: Temp Pulse Resp BP Pulse Ox 97.6 F 114 H 22 130/93 100 11/06/18 06:18 11/06/18 13:57 11/06/18 13:57 11/06/18 06:18 11/06/18 07:30 General appearance: Present: no acute distress Results - Labs CBC & Chem 7: 11/06/18 13:18 11/07/18 07:20 Labs: Laboratory Last Values WBC 9.3 K/mm3 (4.5-11.0) 11/06/18 13:18 RBC 2.97 M/mm3 (3.65-5.03) L 11/06/18 13:18 Hgb 8.6 gm/dl (11.8-15.2) L 11/06/18 13:18 Hct 27.2 % (35.5-45.6) L 11/06/18 13:18 MCV 91 fl (84-94) 11/06/18 13:18 MCH 29 pg (28-32) 11/06/18 13:18 MCHC 32 % (32-34) 11/06/18 13:18 RDW 20.7 % (13.2-15.2) H 11/06/18 13:18 Plt Count 195 K/mm3 (140-440) 11/06/18 13:18 Add Manual Diff Complete 11/02/18 00:40 Total Counted 100 11/02/18 00:40 Seg Neuts % (Manual) 68.0 % (40.0-70.0) 11/02/18 00:40 Band Neutrophils % 4.0 % 11/02/18 00:40 Lymphocytes % (Manual) 15.0 % (13.4-35.0) 11/02/18 00:40 Reactive Lymphs % (Man) 2.0 % 11/02/18 00:40 Monocytes % (Manual) 11.0 % (0.0-7.3) H 11/02/18 00:40 Eosinophils % (Manual) 0 % (0.0-4.3) 11/02/18 00:40 Basophils % (Manual) 0 % (0.0-1.8) 11/02/18 00:40 Metamyelocytes % 0 % 11/02/18 00:40 Myelocytes % 0 % 11/02/18 00:40 Promyelocytes % 0 % 11/02/18 00:40 Blast Cells % 0 % 11/02/18 00:40 Nucleated RBC % 34.0 % (0.0-0.9) H 11/02/18 00:40 Seg Neutrophils # Man 6.4 K/mm3 (1.8-7.7) 11/02/18 00:40 Band Neutrophils # 0.4 K/mm3 11/02/18 00:40 Abs Lymphs (Manual) 267 cells/uL (850-3900) L 10/11/18 17:36 Lymphocytes # (Manual) 1.4 K/mm3 (1.2-5.4) 11/02/18 00:40 Abs React Lymphs (Man) 0.2 K/mm3 11/02/18 00:40 Monocytes # (Manual) 1.0 K/mm3 (0.0-0.8) H 11/02/18 00:40 Eosinophils # (Manual) 0.0 K/mm3 (0.0-0.4) 11/02/18 00:40 Basophils # (Manual) 0.0 K/mm3 (0.0-0.1) 11/02/18 00:40 Metamyelocytes # 0.0 K/mm3 11/02/18 00:40 Myelocytes # 0.0 K/mm3 11/02/18 00:40 Promyelocytes # 0.0 K/mm3 11/02/18 00:40 Blast Cells # 0.0 K/mm3 11/02/18 00:40 Pathologist Review 10/15/18 03:14 WBC Morphology Not Reportable 11/02/18 00:40 Hypersegmented Neuts Not Reportable 11/02/18 00:40 Hyposegmented Neuts Not Reportable 11/02/18 00:40 Hypogranular Neuts Not Reportable 11/02/18 00:40 Smudge Cells Not Reportable 11/02/18 00:40 Toxic Granulation Not Reportable 11/02/18 00:40 Toxic Vacuolation Not Reportable 11/02/18 00:40 Dohle Bodies Not Reportable 11/02/18 00:40 Pelger-Huet Anomaly Not Reportable 11/02/18 00:40 Kartik Rods Not Reportable 11/02/18 00:40 Platelet Estimate Consistent w auto 11/02/18 00:40 Clumped Platelets Not Reportable 11/02/18 00:40 Plt Clumps, EDTA Not Reportable 11/02/18 00:40 Large Platelets Not Reportable 11/02/18 00:40 Giant Platelets Not Reportable 11/02/18 00:40 Platelet Satelliting Not Reportable 11/02/18 00:40 Plt Morphology Comment Not Reportable 11/02/18 00:40 RBC Morphology Not Reportable 11/02/18 00:40 Dimorphic RBCs Not Reportable 11/02/18 00:40 Polychromasia Not Reportable 11/02/18 00:40 Hypochromasia 1+ 11/02/18 00:40 Poikilocytosis 1+ 11/02/18 00:40 Anisocytosis 1+ 11/02/18 00:40 Microcytosis 1+ 11/02/18 00:40 Macrocytosis Not Reportable 11/02/18 00:40 Spherocytes Not Reportable 11/02/18 00:40 Pappenheimer Bodies Not Reportable 11/02/18 00:40 Sickle Cells Not Reportable 11/02/18 00:40 Target Cells Not Reportable 11/02/18 00:40 Tear Drop Cells Not Reportable 11/02/18 00:40 Ovalocytes Not Reportable 11/02/18 00:40 Helmet Cells Not Reportable 11/02/18 00:40 Smith-Enoree Bodies Not Reportable 11/02/18 00:40 [place] Rings Not Reportable 11/02/18 00:40 Jani Cells Not Reportable 11/02/18 00:40 Bite Cells Not Reportable 11/02/18 00:40 Crenated Cell Not Reportable 11/02/18 00:40 Elliptocytes Not Reportable 11/02/18 00:40 Acanthocytes (Spur) Not Reportable 11/02/18 00:40 Rouleaux Not Reportable 11/02/18 00:40 Hemoglobin C Crystals Not Reportable 11/02/18 00:40 Schistocytes Rare 11/02/18 00:40 Malaria parasites Not Reportable 11/02/18 00:40 Jv Bodies Not Reportable 11/02/18 00:40 Hem Pathologist Commnt No 11/02/18 00:40 PT 17.7 Sec. (12.2-14.9) H 11/06/18 13:18 INR 1.36 (0.87-1.13) H 11/06/18 13:18 APTT 30.6 Sec. (24.2-36.6) 11/06/18 13:18 Thrombin Time 16.9 Sec. (15.1-19.6) 10/10/18 15:02 Heparin Anti-Xa, Unfract Negative (Negative) 10/25/18 05:59 POC ABG pH 7.514 (7.35-7.45) H 11/03/18 16:12 POC ABG pCO2 32.0 (35-45) L 10/21/18 09:49 POC ABG pO2 62 (80-105) L 11/03/18 16:12 POC ABG HCO3 23.2 (22-26 mml/L) 11/03/18 16:12 POC ABG Total CO2 24 (23-27mmol/L) 11/03/18 16:12 POC ABG O2 Sat 94 11/03/18 16:12 POC ABG Base Excess 0 ((-2) - (+3)mmol/L) 11/03/18 16:12 FiO2 4 % 11/03/18 16:12 Sodium 138 mmol/L (137-145) 11/06/18 13:18 Potassium 6.4 mmol/L (3.6-5.0) H* D 11/06/18 13:18 Chloride 94.0 mmol/L (98-107) L 11/06/18 13:18 Carbon Dioxide 20 mmol/L (22-30) L 11/06/18 13:18 Anion Gap 30 mmol/L 11/06/18 13:18 BUN 106 mg/dL (9-20) H 11/06/18 13:18 Creatinine 11.3 mg/dL (0.8-1.5) H 11/06/18 13:18 Estimated GFR 6 ml/min 11/06/18 13:18 BUN/Creatinine Ratio 9 % 11/06/18 13:18 Glucose 117 mg/dL (75-100) H 11/06/18 13:18 POC Glucose 139 (70-105) H 10/20/18 13:07 Osmolality 338 Mosm/kg 10/11/18 17:35 Lactic Acid 1.80 mmol/L (0.7-2.0) 10/12/18 05:59 Uric Acid 13.4 mg/dL (3.5-7.6) H 10/11/18 17:36 Calcium 8.8 mg/dL (8.4-10.2) 11/06/18 13:18 Phosphorus 8.30 mg/dL (2.5-4.5) H 10/25/18 10:00 Magnesium 3.10 mg/dL (1.7-2.3) H 10/18/18 05:03 Iron 147 ug/dL (49-181) 10/11/18 17:36 TIBC 236 mcg/dL (250-450) L 10/11/18 17:36 Ferritin 36026.0 ng/mL (13.0-400.0) H 10/11/18 17:35 Total Bilirubin 0.40 mg/dL (0.1-1.2) 10/25/18 10:00 Direct Bilirubin 0.2 mg/dL (0-0.2) 10/16/18 04:07 Indirect Bilirubin 0.3 mg/dL 10/16/18 04:07 AST 46 units/L (5-40) H 10/25/18 10:00 ALT 21 units/L (7-56) 10/25/18 10:00 Alkaline Phosphatase 102 units/L (35-129) 10/25/18 10:00 Ammonia 25.0 umol/L (25-60) 10/17/18 14:59 Lactate Dehydrogenase 925 units/L (91-180) H 10/22/18 05:51 Troponin T 0.357 ng/mL (0.00-0.029) H* 11/06/18 05:54 NT-Pro-B Natriuret Pep 72436 pg/mL (0-450) H 10/10/18 15:42 Total Protein 8.1 g/dL (6.3-8.2) 10/25/18 10:00 Albumin 3.5 g/dL (3.9-5) L 10/25/18 10:00 Albumin/Globulin Ratio 0.8 % 10/25/18 10:00 Triglycerides 306 mg/dL (2-149) H 11/05/18 11:29 Cholesterol 145 mg/dL (50-199) 11/05/18 11:29 LDL Cholesterol Direct 89 mg/dL (50-130) 11/05/18 11:29 HDL Cholesterol 25 mg/dL (40-59) L 11/05/18 11:29 Cholesterol/HDL Ratio 5.80 % 11/05/18 11:29 Serotonin Release Assay See scanned result 10/25/18 05:59 Vitamin B12 912.3 pg/mL (211-911) H 10/14/18 08:51 Folate 8.32 ng/mL (7.3-26.0) 10/14/18 08:51 PTH Intact 388.7 pg/mL (15-65) H 10/25/18 10:00 Urine Creatinine 30.8 mg/dL (0.1-20.0) H 10/13/18 04:43 Urine Sodium 106 mmol/L 10/13/18 04:43 Urine Total Protein 75 mg/dL (5-11.8) H 10/13/18 04:43 CSF Appearance Clear 10/16/18 15:00 CSF Color Colorless 10/16/18 15:00 CSF WBC 4 /mm3 (1-10) 10/16/18 15:00 CSF RBC 113 /mm3 (0-0) 10/16/18 15:00 CSF Seg Neutrophils 8.0 % (0-6) 10/16/18 15:00 CSF Lymphocytes % 76.0 % (40-80) 10/16/18 15:00 CSF Reactive Lymphs 2.0 % 10/16/18 15:00 CSF Monocytes % 14.0 % (15-45) 10/16/18 15:00 CSF Eosinophils % 0 % 10/16/18 15:00 CSF Basophils 0 % 10/16/18 15:00 CSF Pathologist Review C 10/16/18 15:00 CSF Glucose 73 mg/dL 10/16/18 15:00 CSF Total Protein 55 mg/dL 10/16/18 15:00 CSF VDRL Nonreactive (Nonreactive) 10/16/18 15:00 Random Vancomycin 18.9 ug/mL (0-40.0) 10/29/18 07:13 Immunofix Electrophor see below 10/11/18 17:36 RENO Screen Negative (Negative) 10/21/18 15:07 Proteinase 3 (PR3) Ab <1.0 AI (<1.0) 10/21/18 15:07 Myeloperoxidase Ab <1.0 AI (<1.0) 10/21/18 15:07 Heparin-induced Plt Ab Negative (Negative) 10/25/18 05:59 UF Heparin High Dose 0 % Release 10/25/18 05:59 VJ UFH Low Dose 0.1 0 % Release 10/25/18 05:59 VJ UFH Low Dose 0.5 14 % Release 10/25/18 05:59 Lymph Enumerat CD4/CD8 0.01 (0.86-5.00) L 10/11/18 17:36 % CD3 Cells 85 % (57-85) 10/11/18 17:36 Absolute CD3 Count 226 cells/uL (840-3060) L 10/11/18 17:36 % CD4 Cells 1 % (30-61) L 10/11/18 17:36 Absolute CD4 Count 3 cells/uL (490-1740) L 10/11/18 17:36 % CD8 Cells 82 % (12-42) H 10/11/18 17:36 Absolute CD8 Count 228 cells/uL (180-1170) 10/11/18 17:36 % CD19 Cells 6 % (6-29) 10/11/18 17:36 Absolute CD19 Count 16 cells/uL (110-660) L 10/11/18 17:36 RPR Titer 1:32 10/11/18 17:37 RPR Reactive (Nonreactive) 10/11/18 17:37 T.pallidum Ab (FTA-ABS) Reactive (Nonreactive) H 10/12/18 Unknown CMV DNA PCR log telescope repairer/mL See scanned result 10/24/18 17:47 Hepatitis A IgM Ab Non-reactive (NonReactive) 10/11/18 17:34 Hep Bs Antigen Non-reactive (Negative) 10/11/18 17:34 Hep B Core IgM Ab Non-reactive (NonReactive) 10/11/18 17:34 Hepatitis C Antibody Non-reactive (NonReactive) 10/11/18 17:34 HIV-1 RNA PCR copies/ml [id number] Copies/mL H 10/11/18 17:36 HIV-1 RNA (PCR) log 5.51 Log cps/mL H 10/11/18 17:36 Toxoplasma IgG Ab <7.20 IU/mL (<7.20) 10/13/18 07:54 Miscellaneous Test Flexitest 1 10/31/18 06:43 Blood Type A POSITIVE 10/23/18 09:12 Antibody Screen Negative 10/23/18 09:12 Crossmatch See Detail 10/23/18 09:12 Active Medications - Current Medications Current Medications: Generic Name Dose Route Start Last Admin Trade Name Freq PRN Reason Stop Dose Admin Acetaminophen 500 mg 10/16/18 10:02 11/05/18 16:40 Tylenol PO 500 mg Q6H PRN Administration Fever >101 Albumin Human 25 gm 11/04/18 16:14 Alburx 25% (Albumin) IV CHON PRN Hypotension Albuterol 2.5 mg 10/10/18 18:12 Proventil IH Q3HRT PRN Shortness Of Breath Albuterol/Ipratropium 1 ampul 10/25/18 08:00 11/06/18 13:46 Duoneb *Not For Prn Use* IH 1 ampul TIDRT RUBI Administration Amlodipine Besylate 10 mg 10/11/18 10:00 11/06/18 12:46 Norvasc PO Not Given QDAY RUBI Lipase/Protease/Amylase 1 each 10/11/18 12:[address] 10,500 Unit FEEDTUBE PRN PRN For Clogged Feeding Tube Arformoterol Tartrate 15 mcg 10/20/18 11:45 11/05/18 08:21 Brovana Nebu IH Not Given Q12HRT [facility] Atovaquone 750 mg 10/18/18 10:00 11/06/18 12:46 Mepron PO Not Given BID [facility] Carvedilol 12.5 mg 10/22/18 22:00 11/06/18 12:46 Coreg PO Not Given BID [facility] Darunavir 800 mg 10/30/18 18:00 11/06/18 12:47 Prezista PO Not Given QDAY [facility] Emtricitabine 200 mg 11/01/18 10:00 11/05/18 10:01 Emtriva PO Not Given Q48HR RUBI Epoetin Dany 10,000 unit 11/04/18 16:15 Procrit IV CHON PRN hemodialysis Haloperidol Lactate 5 mg 10/13/18 19:45 10/20/18 21:08 Haldol IV 5 mg Q6H PRN Administration Agitation Heparin Sodium (Porcine) 5,000 unit 11/04/18 16:15 Heparin IV CHON PRN hemodialysis Hydralazine HCl 10 mg 10/12/18 15:50 10/28/18 22:36 Apresoline IV 10 mg Q4HR PRN Administration SBP>175 or DBP>115 Hydrophilic Ointment 1 applic 10/10/18 17:53 Vaseline Lip Therapy TP Q2HR PRN Dry Lips Sodium Chloride 100 mls @ 999 mls/hr 11/04/18 16:13 Nacl 0.9% IV CHON PRN Hypotension Dextrose 1,000 mls @ 42 mls/hr 11/05/18 19:00 11/05/18 22:45 D5w IV 42 mls/hr DIRECT RUBI Administration Heparin Sodium/Sodium Chloride 25,000 unit in 500 mls @ 15 mls/hr 11/06/18 13:00 11/06/18 15:25 Heparin/ 0.45% Nacl-25,000 Unit/500 Ml IV 750 units/hr TITR RUBI 15 mls/hr Administration Protocol 750 UNITS/HR Lansoprazole 30 mg 10/15/18 10:00 11/06/18 12:47 Prevacid Solutab FEEDTUBE Not Given BID RUBI Lorazepam 1 mg 10/13/18 19:48 10/21/18 04:09 Ativan IV 1 mg Q4H PRN Administration agitation Metoprolol Tartrate 5 mg 10/18/18 14:05 Lopressor IV Q6HR PRN Tachyarrhythmias Multi-Ingred Cream/Lotion/Oil/Oint 1 applic 10/10/18 17:53 Artificial Tears Ophth Oint OU Q4HR PRN Dry Eye(s) Multivitamins 1 each 10/11/18 10:00 11/06/18 12:46 Theragran Tab PO Not Given DAILY RUBI Nystatin 100,000 unit 11/02/18 18:00 11/06/18 12:47 Nystatin PO Not Given QID RUBI Ritonavir 100 mg 10/30/18 18:00 11/06/18 12:47 Norvir PO Not Given QDAY RUBI Simple Syrup 15 ml 10/11/18 12:58 Simple Syrup FEEDTUBE PRN PRN Hypoglycemia Simple Syrup 30 ml 10/11/18 12:58 Simple Syrup FEEDTUBE PRN PRN Hypoglycemia Sodium Bicarbonate 325 mg 10/11/18 12:58 Sodium Bicarbonate FEEDTUBE PRN PRN For Clogged Feeding Tube Sodium Chloride 10 ml 10/10/18 22:00 11/06/18 12:47 Sodium Chloride Flush Syringe 10 Ml IV Not Given BID RUBI Sodium Chloride 10 ml 10/10/18 18:12 Sodium Chloride Flush Syringe 10 Ml IV PRN PRN LINE FLUSH Tenofovir Disoproxil Fumarate 300 mg 10/30/18 17:45 11/03/18 17:45 Viread PO Not Given Q96H [facility] Nutrition/Malnutrition Assess - Dietary Evaluation Nutrition/Malnutrition Findings: Nutrition Notes Start: 10/11/18 11:14 Freq: Status: Active Protocol: Document 11/06/18 14:25 TW (Rec: 11/06/18 14:31 TW [id number]) Co-Sign 11/06/18 14:25 LP Nutrition Notes Initial or Follow up Reassessment Current Diagnosis Acute Kidney Injury,CKD(stage I-IV),Hypertension,Stroke Other Pertinent Diagnosis on HD, Acute encephalopathy, HIV/AIDS, Syphilis, dysphagia Current Diet Pureed Labs/Tests Reviewed Pertinent Medications Reviewed Height 5 ft 9 in Weight 51.5 kg [place] Body Weight (kg) 72.72 BMI 16.7 Subjective/Other Information F/U for intakes. Pt not in room at time of visit. Per RN, pt has been NPO for a procedure but will get lunch when pt returns. Percent of energy/protein needs met: 0%/0% Burn Absent Trauma Absent Current % PO Negligible #1 Nutrition Diagnosis Inadequate oral intake Diagnosis Progress(for reassessment Continues documentation) Is patient on ventilator? No Is Patient Ambulatory and/or Out of Bed No REE-([facility]-confined to bed) [phone] Calculation Used for Recommendations [facility] Additional Notes Pro needs 1.2-1.5g/k-79g/ day Fluid needs 1ml/kcal Nutrition Intervention Change Diet Order: Advance diet when medically able Add Supplement/Snack (indicate name/kcal Nepro 1 daily once diet /protein ) advanced Provides kCal: 425 Provides Protein (gm) 19 Goal #1 Meet at least 75% of calorie and protein needs via PO and ONS intakes Anticipated Discharge Needs: Pureed, Renal diet Follow-Up By: 11/08/18 Additional Comments Follow for PO and ONS intakes
[2018-11-06] MEDS: BROVANA NEBU IH SCH ×3 (16:15→20:44)
[2018-11-06 16:24] LABS: Eosinophils % (Manual) 0 % (0.0-4.3); Total Cells Counted 100
[2018-11-06 16:25] LABS: Anisocytosis 1+; Large Platelets 1+
[2018-11-06 16:26] LABS: Ovalocytes Few; Poikilocytosis 1+; Tear Drop Cells 1+
[2018-11-06 16:27] LABS: Platelet Estimate Consistent w Auto
[2018-11-06] MEDS ORDERED: NACL 0.9% 100 ML IV PRN (19:42)
[2018-11-07] MEDS: D5W 1,000 ML IV SCH (01:01)
--- NOTE | 2018-11-07 03:26 | Cat Scan Report ---
PROCEDURE: CT ANGIO CHEST TECHNIQUE: A CT angiogram was performed following the intravenous injection of iodinated contrast. R otational and parasagittal MIP reconstructions were reviewed. HISTORY: sob COMPARISONS: Chest x-ray 11/04/2018 FINDINGS: There is no evidence of pulmonary embolus or aortic dissection. The heart is mildly enlarged. Pericardial fluid is not seen. There is no evidence of adenopathy. The lungs reveal generalized emphy sematous changes particularly in the upper lobes. There is patchy airspace disease in the right lower lobe compatible with pneumonia. Pleural fluid is not seen. At the thoracic inlet the thyroid gland a ppears normal. The upper abdomen the adrenal glands are not enlarged. The skeletal structures do not show any acute changes. IMPRESSION: Patchy airspace disease in the right lower lobe compatible with pneumonia. No evidence of pleural eff usion. No evidence of pulmonary embolus, aortic dissection, or vascular congestion.. This document is electronically signed by Claudio Friedman MD., November 07 2018 03:24:29 AM ET
[2018-11-07] MEDS: DUONEB *Not for PRN Use IH SCH ×3 (07:43→22:12)
[2018-11-07] MEDS: BROVANA NEBU IH SCH ×2 (07:43→22:12)
--- NOTE | 2018-11-07 07:43 | Hem/Onc Progress Note ---
Assessment and Plan 1. Anemia. At admission, hemoglobin was 8.1, later low and s/p Transfusion support. 2. Platelets at admission was 20. 3. White cell count was elevated. 4. PT/INR h/o slightly elevated. 5. Renal failure. 6. ALT elevated. 7. The patient has multiple medical issues. PLAN: I will ask for a smear evaluation. I will call the lab for same. Supportive care in the interim while we looked for primary etiology. 3 - plt better - s/p transfusion d/w dr rain and dr carrillo 10/14 - low plt - rasta ctive bleed suprapubic catheter 10/15 - plt were rising and again going down' pt had got plt transfusion LDH high - [id number] ordered smear - ordererd LDH may be high in other causes too - renal etc 10/16 - d/w path - not many schistocytes on smear - ADAMTS 13 ordered extubated 10/17 - plt low - path review ordered d/w armin monsalve 10/18 - path report pending plt low - but no active bleeding 10/19 - pt more alert - follows commands no bleeding 10/20 pt SOB - d/w Dr Monsalve and RN plt low - but no bleeding NGT+ more awake 10/21 - pt in IMC plt >100 - more awake 10/22 - clinically better - moves all 4 limbs 10/23 - clinically stable - prbc suport 10/24 - as per RN -pt passed barium - for thickened diet pt has suprapubic got PRBC plt improving 10/25 - clinically better no active bleeding 10/26 - moving all extremity -communicating repeat cbc 10/27 - labs better - clinically improving 10/28 - plt now normal - hb better - s/p PRBC recent CKD may have a role 10/29 - pt clinically stable - pathologist assistant abn - electrolyte abn 10/30 - cbc improving - pt had question reg rectal tube - he will d/w other MDs 10/31 - plt better - hb better - OP follow up an option 11/01 - labs follow up 11/02 anemia d/w rn - rectal tube - decubiti suprapubic HD cath change planned 11/03/2018 pt getting HD rectal tube present 11/04- on o2 will follow labs gets HD 11/05 anemia slight SOB - on o2 HD cath 11/06 - d/w dr Shen reg pt anemia HD cath fever issues 11/07 CT shows pneumonia hb better - Patient Problems (1) Thrombocytopenia associated with AIDS Current Visit: Yes Status: Acute (2) Anemia Current Visit: Yes Status: Acute Qualifiers: Anemia type: due to chronic kidney disease Chronic kidney disease stage: unspecified stage Qualified Code(s): N18.9 - Chronic kidney disease, unspecified; D63.1 - Anemia in chronic kidney disease Subjective Date of service: 11/07/18 Principal diagnosis: anemia - HIV Interval history: pt had a CT chest Objective - Constitutional Vitals: Last Vital Signs Temp 98.6 F 11/07/18 05:40 Pulse 130 H 11/07/18 05:40 Resp 16 11/06/18 22:30 BP 133/81 11/07/18 05:40 Pulse Ox 98 11/06/18 22:30 Pain Intensity (0-10): denies any pain General appearance: mild distress Performance status: 4-completely disabled - EENT Eyes: EOM intact ENT: hearing intact - Neck Neck: normal ROM - Respiratory Respiratory effort: Positive: normal Respiratory: bilateral: diminished (poor effort) - Cardiovascular Heart Sounds: Present: S1 & S2 Extremities: No edema - Gastrointestinal General gastrointestinal: Present: soft, non-tender Rectal Exam: deferred - Genitourinary Male genitourinary: Present: deferred - Integumentary Integumentary: warm - Musculoskeletal Musculoskeletal: generalized weakness - Neurologic Neurologic: moves all extremities - Labs Lab Results: Laboratory Results - last 24 hr 11/06/18 11/06/18 11/06/18 05:54 13:18 13:18 WBC 9.3 RBC 2.97 L Hgb 8.6 L Hct 27.2 L MCV 91 MCH 29 MCHC 32 RDW 20.7 H Plt Count 195 Add Manual Diff Complete Total Counted 100 Seg Neuts % (Manual) 82.0 H Band Neutrophils % 0 Lymphocytes % (Manual) 11.0 L Reactive Lymphs % (Man) 0 Monocytes % (Manual) 5.0 Eosinophils % (Manual) 0 Basophils % (Manual) 1.0 Metamyelocytes % 1.0 Myelocytes % 0 Promyelocytes % 0 Blast Cells % 0 Nucleated RBC % 12.0 H Seg Neutrophils # Man 7.6 Band Neutrophils # 0.0 Lymphocytes # (Manual) 1.0 L Abs React Lymphs (Man) 0.0 Monocytes # (Manual) 0.5 Eosinophils # (Manual) 0.0 Basophils # (Manual) 0.1 Metamyelocytes # 0.1 Myelocytes # 0.0 Promyelocytes # 0.0 Blast Cells # 0.0 WBC Morphology Not Reportable Hypersegmented Neuts Not Reportable Hyposegmented Neuts Not Reportable Hypogranular Neuts Not Reportable Smudge Cells Not Reportable Toxic Granulation Not Reportable Toxic Vacuolation Not Reportable Dohle Bodies Not Reportable Pelger-Huet Anomaly Not Reportable Kartik Rods Not Reportable Platelet Estimate Consistent w auto Clumped Platelets Not Reportable Plt Clumps, EDTA Not Reportable Large Platelets 1+ Giant Platelets Not Reportable Platelet Satelliting Not Reportable Plt Morphology Comment Not Reportable RBC Morphology Not Reportable Dimorphic RBCs Not Reportable Polychromasia Not Reportable Hypochromasia Not Reportable Poikilocytosis 1+ Anisocytosis 1+ Microcytosis Not Reportable Macrocytosis Not Reportable Spherocytes Not Reportable Pappenheimer Bodies Not Reportable Sickle Cells Not Reportable Target Cells Not Reportable Tear Drop Cells 1+ Ovalocytes Few Helmet Cells Not Reportable [place] Bodies Not Reportable [place] Rings Not Reportable [place] Cells Not Reportable Bite Cells Not Reportable Crenated Cell Not Reportable Elliptocytes Not Reportable Acanthocytes (Spur) Not Reportable Rouleaux Not Reportable Hemoglobin C Crystals Not Reportable Schistocytes Not Reportable Malaria parasites Not Reportable Jv Bodies Not Reportable Hem Pathologist Commnt No PT INR APTT Heparin Anti-Xa Level Sodium 140 Potassium 6.4 H* D Chloride 95.6 L Carbon Dioxide 21 L Anion Gap 30 BUN 106 H Creatinine 11.3 H Estimated GFR 6 BUN/Creatinine Ratio 9 Glucose 122 H Calcium 9.0 Troponin T 0.357 H* 11/06/18 11/06/18 11/06/18 13:18 13:18 23:34 WBC RBC Hgb Hct MCV MCH MCHC RDW Plt Count Add Manual Diff Total Counted Seg Neuts % (Manual) Band Neutrophils % Lymphocytes % (Manual) Reactive Lymphs % (Man) Monocytes % (Manual) Eosinophils % (Manual) Basophils % (Manual) Metamyelocytes % Myelocytes % Promyelocytes % Blast Cells % Nucleated RBC % Seg Neutrophils # Man Band Neutrophils # Lymphocytes # (Manual) Abs React Lymphs (Man) Monocytes # (Manual) Eosinophils # (Manual) Basophils # (Manual) Metamyelocytes # Myelocytes # Promyelocytes # Blast Cells # WBC Morphology Hypersegmented Neuts Hyposegmented Neuts Hypogranular Neuts Smudge Cells Toxic Granulation Toxic Vacuolation Dohle Bodies Pelger-Huet Anomaly Kartik Rods Platelet Estimate Clumped Platelets Plt Clumps, EDTA Large Platelets Giant Platelets Platelet Satelliting Plt Morphology Comment RBC Morphology Dimorphic RBCs Polychromasia Hypochromasia Poikilocytosis Anisocytosis Microcytosis Macrocytosis Spherocytes Pappenheimer Bodies Sickle Cells Target Cells Tear Drop Cells Ovalocytes Helmet Cells [place] Bodies [place] Rings [place] Cells Bite Cells Crenated Cell Elliptocytes Acanthocytes (Spur) Rouleaux Hemoglobin C Crystals Schistocytes Malaria parasites Jv Bodies Hem Pathologist Commnt PT 17.7 H INR 1.36 H APTT 30.6 Heparin Anti-Xa Level 0.10 L Sodium 138 Potassium 6.2 H* Chloride 94.0 L Carbon Dioxide 20 L Anion Gap 30 BUN 106 H Creatinine 11.3 H Estimated GFR 6 BUN/Creatinine Ratio 9 Glucose 117 H Calcium 8.8 Troponin T Medications & Allergies - Medications Allergies/Adverse Reactions: Allergies Sulfa (Sulfonamide Antibiotics) Allergy (Verified 10/10/18 16:54) Unknown Home Medications: Home Medications Medication Instructions Recorded Confirmed Last Taken Type Acetaminophen [Tylenol] 1,000 mg PO Q6HR 10/10/18 10/10/18 Unknown History Amlodipine Besylate [Norvasc] 10 mg PO QDAY 10/10/18 10/10/18 Unknown History Aspirin [Adult Aspirin] 81 mg PO DAILY 10/10/18 10/10/18 Unknown History Atorvastatin [Lipitor Tab] 80 mg PO DAILY 10/10/18 10/10/18 Unknown History Losartan [Cozaar] 100 mg PO QDAY 10/10/18 10/10/18 Unknown History Multivitamin [Multiple Vitamins] 1 each PO DAILY 10/10/18 10/10/18 Unknown History hydroCHLOROthiazide [HCTZ] 25 mg PO QDAY 10/10/18 10/10/18 Unknown History Active Medications: Generic Name Dose Route Start Last Admin Trade Name Freq PRN Reason Stop Dose Admin Acetaminophen 500 mg 10/16/18 10:02 11/05/18 16:40 Tylenol PO 500 mg Q6H PRN Administration Fever >101 Albumin Human 25 gm 11/04/18 16:14 Alburx 25% (Albumin) IV CHON PRN Hypotension Albuterol 2.5 mg 10/10/18 18:12 Proventil IH Q3HRT PRN Shortness Of Breath Albuterol/Ipratropium 1 ampul 10/25/18 08:00 11/06/18 20:44 Duoneb *Not For Prn Use* IH 1 ampul TIDRT RUBI Administration Amlodipine Besylate 10 mg 10/11/18 10:00 11/06/18 12:46 Norvasc PO Not Given QDAY [facility] Lipase/Protease/Amylase 1 each 10/11/18 12:58 Pancreazkarlos Reed 10,500 Unit FEEDTUBE PRN PRN For Clogged Feeding Tube Arformoterol Tartrate 15 mcg 10/20/18 11:45 11/06/18 20:44 Brovana Nebu IH Not Given Q12HRT [facility] Atovaquone 750 mg 10/18/18 10:00 11/06/18 22:20 Mepron PO 750 mg BID RUBI Administration Carvedilol 12.5 mg 10/22/18 22:00 11/06/18 22:23 Coreg PO 12.5 mg BID [facility] Administration Darunavir 800 mg 10/30/18 18:00 11/06/18 12:47 Prezista PO Not Given QDAY [facility] Emtricitabine 200 mg 11/01/18 10:00 11/05/18 10:01 Emtriva PO Not Given Q48HR [facility] Epoetin Dany 10,000 unit 11/04/18 16:15 Procrit IV CHON PRN hemodialysis Haloperidol Lactate 5 mg 10/13/18 19:45 10/20/18 21:08 Haldol IV 5 mg Q6H PRN Administration Agitation Heparin Sodium (Porcine) 5,000 unit 11/04/18 16:15 Heparin IV CHON PRN hemodialysis Hydralazine HCl 10 mg 10/12/18 15:50 10/28/18 22:36 Apresoline IV 10 mg Q4HR PRN Administration SBP>175 or DBP>115 Hydrophilic Ointment 1 applic 10/10/18 17:53 Vaseline Lip Therapy TP Q2HR PRN Dry Lips Sodium Chloride 100 mls @ 999 mls/hr 11/04/18 16:13 Nacl 0.9% IV CHON PRN Hypotension Dextrose 1,000 mls @ 42 mls/hr 11/05/18 19:00 11/07/18 01:01 D5w IV 42 mls/hr DIRECT RUBI Administration Heparin Sodium/Sodium Chloride 25,000 unit in 500 mls @ 15 mls/hr 11/06/18 13:00 11/07/18 01:36 Heparin/ 0.45% Nacl-25,000 Unit/500 Ml IV 850 units/hr TITR RUBI 17 mls/hr Titration Protocol 750 UNITS/HR Sodium Chloride 100 mls @ 999 mls/hr 11/06/18 19:42 Nacl 0.9% IV CHON PRN Hypotension Lansoprazole 30 mg 10/15/18 10:00 11/06/18 22:24 Prevacid Solutab FEEDTUBE 30 mg BID RUBI Administration Lorazepam 1 mg 10/13/18 19:48 10/21/18 04:09 Ativan IV 1 mg Q4H PRN Administration agitation Metoprolol Tartrate 5 mg 10/18/18 14:05 Lopressor IV Q6HR PRN Tachyarrhythmias Multi-Ingred Cream/Lotion/Oil/Oint 1 applic 10/10/18 17:53 Artificial Tears Ophth Oint OU Q4HR PRN Dry Eye(s) Multivitamins 1 each 10/11/18 10:00 11/06/18 12:46 Theragran Tab PO Not Given DAILY [facility] Nystatin 100,000 unit 11/02/18 18:00 11/06/18 16:37 Nystatin PO 100,000 unit QID RUBI Administration Ritonavir 100 mg 10/30/18 18:00 11/06/18 12:47 Norvir PO Not Given QDAY [facility] Simple Syrup 15 ml 10/11/18 12:58 Simple Syrup FEEDTUBE PRN PRN Hypoglycemia Simple Syrup 30 ml 10/11/18 12:58 Simple Syrup FEEDTUBE PRN PRN Hypoglycemia Sodium Bicarbonate 325 mg 10/11/18 12:58 Sodium Bicarbonate FEEDTUBE PRN PRN For Clogged Feeding Tube Sodium Chloride 10 ml 10/10/18 22:00 11/06/18 22:20 Sodium Chloride Flush Syringe 10 Ml IV 10 ml BID RUBI Administration Sodium Chloride 10 ml 10/10/18 18:12 Sodium Chloride Flush Syringe 10 Ml IV PRN PRN LINE FLUSH Tenofovir Disoproxil Fumarate 300 mg 10/30/18 17:45 11/03/18 17:45 Viread PO Not Given Q96H [facility]
[2018-11-07 08:10] LABS: Calcium 8.2 mg/dL (8.4-10.2)
[2018-11-07] MEDS ORDERED: NACL 0.9% 100 ML IV PRN (09:20)
--- NOTE | 2018-11-07 09:22 | Progress Note ---
Assessment and Plan Assessment: * Acute kidney injury secondary to ATN vs HIVAN * HIV/AIDS * Acute encephalopathy * Acute hypoxic respiratory failure * Hx of urinary retention * Hypertension * Diarrhea * Hyperkalemia Plan: * Patient is s/p HD yesterday - clearance improved with IJ vas cath. * Hemodialysis again today - via IJ vascath; continue MWF schedule thereafter * UF as tolerated * Abx per primary team/ID * ID recommendations reviewed - antiretroviral treatment started 10/30 * Monitor for evidence of recovery * Epogen TIW prn * Continue antiHTN medications . Subjective Date of service: 11/07/18 Principal diagnosis: anemia - HIV Interval history: No acute events. Objective - Vital Signs Vital signs: Vital Signs - 12hr 11/06/18 11/06/18 11/06/18 22:00 22:23 22:30 Temperature 98.5 F Pulse Rate 120 H 133 H Pulse Rate [ Bilateral Throughout] Respiratory 20 16 Rate Respiratory Rate [Bilateral Throughout] Blood Pressure 108/40 127/80 Blood Pressure [Left] O2 Sat by Pulse 97 98 Oximetry 11/07/18 11/07/18 11/07/18 05:40 07:44 07:58 Temperature 98.6 F Pulse Rate 130 H Pulse Rate [ 119 H 114 H Bilateral Throughout] Respiratory Rate Respiratory 26 H 26 H Rate [Bilateral Throughout] Blood Pressure Blood Pressure 133/81 [Left] O2 Sat by Pulse Oximetry - General Appearance General appearance: cachectic, chronically ill, frail EENT: ATNC Neck: other ([facility] vascat) Respiratory: Present: Clear to Ascultation Cardiology: tachycardia, S1S2 Gastrointestinal: normal, no tenderness, no distended Musculoskeletal: other (no edema) - Lab 11/08/18 07:26 11/08/18 07:26 Most recent lab results Calcium 8.2 mg/dL (8.4-10.2) L 11/07/18 07:20 Phosphorus 8.30 mg/dL (2.5-4.5) H 10/25/18 10:00 Magnesium 3.10 mg/dL (1.7-2.3) H 10/18/18 05:03 Urine Creatinine 30.8 mg/dL (0.1-20.0) H 10/13/18 04:43 Urine Sodium 106 mmol/L 10/13/18 04:43 Urine Total Protein 75 mg/dL (5-11.8) H 10/13/18 04:43 Medications & Allergies - Medications Allergies/Adverse Reactions: Allergies Sulfa (Sulfonamide Antibiotics) Allergy (Verified 10/10/18 16:54) Unknown Home Medications: Home Medications Medication Instructions Recorded Confirmed Last Taken Type Acetaminophen [Tylenol] 1,000 mg PO Q6HR 10/10/18 10/10/18 Unknown History Amlodipine Besylate [Norvasc] 10 mg PO QDAY 10/10/18 10/10/18 Unknown History Aspirin [Adult Aspirin] 81 mg PO DAILY 10/10/18 10/10/18 Unknown History Atorvastatin [Lipitor Tab] 80 mg PO DAILY 10/10/18 10/10/18 Unknown History Losartan [Cozaar] 100 mg PO QDAY 10/10/18 10/10/18 Unknown History Multivitamin [Multiple Vitamins] 1 each PO DAILY 10/10/18 10/10/18 Unknown History hydroCHLOROthiazide [HCTZ] 25 mg PO QDAY 10/10/18 10/10/18 Unknown History Active Medications: Generic Name Dose Route Start Last Admin Trade Name Freq PRN Reason Stop Dose Admin Acetaminophen 500 mg 10/16/18 10:02 11/05/18 16:40 Tylenol PO 500 mg Q6H PRN Administration Fever >101 Albumin Human 25 gm 11/04/18 16:14 Alburx 25% (Albumin) IV CHON PRN Hypotension Albuterol 2.5 mg 10/10/18 18:12 Proventil IH Q3HRT PRN Shortness Of Breath Albuterol/Ipratropium 1 ampul 10/25/18 08:00 11/07/18 07:43 Duoneb *Not For Prn Use* IH 1 ampul TIDRT RUBI Administration Amlodipine Besylate 10 mg 10/11/18 10:00 11/06/18 12:46 Norvasc PO Not Given QDAY [facility] Lipase/Protease/Amylase 1 each 10/11/18 12:58 Pancrebecka Reed 10,500 Unit FEEDTUBE PRN PRN For Clogged Feeding Tube Arformoterol Tartrate 15 mcg 10/20/18 11:45 11/07/18 07:43 Brovana Gemma IH Not Given Q12HRT RUBI Atovaquone 750 mg 10/18/18 10:00 11/06/18 22:20 Mepron PO 750 mg BID RUBI Administration Carvedilol 12.5 mg 10/22/18 22:00 11/06/18 22:23 Coreg PO 12.5 mg BID RUBI Administration Darunavir 800 mg 10/30/18 18:00 11/06/18 12:47 Prezista PO Not Given QDAY [facility] Emtricitabine 200 mg 11/01/18 10:00 11/05/18 10:01 Emtriva PO Not Given Q48HR [facility] Epoetin Dany 10,000 unit 11/04/18 16:15 Procrit IV CHON PRN hemodialysis Haloperidol Lactate 5 mg 10/13/18 19:45 10/20/18 21:08 Haldol IV 5 mg Q6H PRN Administration Agitation Heparin Sodium (Porcine) 5,000 unit 11/04/18 16:15 Heparin IV CHON PRN hemodialysis Hydralazine HCl 10 mg 10/12/18 15:50 10/28/18 22:36 Apresoline IV 10 mg Q4HR PRN Administration SBP>175 or DBP>115 Hydrophilic Ointment 1 applic 10/10/18 17:53 Vaseline Lip Therapy TP Q2HR PRN Dry Lips Sodium Chloride 100 mls @ 999 mls/hr 11/04/18 16:13 Nacl 0.9% IV CHON PRN Hypotension Dextrose 1,000 mls @ 42 mls/hr 11/05/18 19:00 11/07/18 01:01 D5w IV 42 mls/hr DIRECT RUBI Administration Heparin Sodium/Sodium Chloride 25,000 unit in 500 mls @ 15 mls/hr 11/06/18 13:00 11/07/18 01:36 Heparin/ 0.45% Nacl-25,000 Unit/500 Ml IV 850 units/hr TITR RUBI 17 mls/hr Titration Protocol 750 UNITS/HR Sodium Chloride 100 mls @ 999 mls/hr 11/06/18 19:42 Nacl 0.9% IV CHON PRN Hypotension Lansoprazole 30 mg 10/15/18 10:00 11/06/18 22:24 Prevacid Solutab FEEDTUBE 30 mg BID RUBI Administration Lorazepam 1 mg 10/13/18 19:48 10/21/18 04:09 Ativan IV 1 mg Q4H PRN Administration agitation Metoprolol Tartrate 5 mg 10/18/18 14:05 Lopressor IV Q6HR PRN Tachyarrhythmias Multi-Ingred Cream/Lotion/Oil/Oint 1 applic 10/10/18 17:53 Artificial Tears Ophth Oint OU Q4HR PRN Dry Eye(s) Multivitamins 1 each 10/11/18 10:00 11/06/18 12:46 Theragran Tab PO Not Given DAILY [facility] Nystatin 100,000 unit 11/02/18 18:00 11/06/18 22:00 Nystatin PO Not Given QID [facility] Ritonavir 100 mg 10/30/18 18:00 11/06/18 12:47 Norvir PO Not Given QDAY RUBI Simple Syrup 15 ml 10/11/18 12:58 Simple Syrup FEEDTUBE PRN PRN Hypoglycemia Simple Syrup 30 ml 10/11/18 12:58 Simple Syrup FEEDTUBE PRN PRN Hypoglycemia Sodium Bicarbonate 325 mg 10/11/18 12:58 Sodium Bicarbonate FEEDTUBE PRN PRN For Clogged Feeding Tube Sodium Chloride 10 ml 10/10/18 22:00 11/06/18 22:20 Sodium Chloride Flush Syringe 10 Ml IV 10 ml BID RUBI Administration Sodium Chloride 10 ml 10/10/18 18:12 Sodium Chloride Flush Syringe 10 Ml IV PRN PRN LINE FLUSH Tenofovir Disoproxil Fumarate 300 mg 10/30/18 17:45 11/03/18 17:45 Viread PO Not Given Q96H [facility]
[2018-11-07] MEDS: NYSTATIN PO SCH ×3 (10:00→18:09)
--- NOTE | 2018-11-07 10:34 | Progress Note ---
Assessment and Plan Cultures: Blood culture 10/10/2018 no growth. Sputum culture 10/10/2018 Ana Paula albicans. Crypto Ag 10/10/2018 neg. Urine culture 10/13/2018 no growth. Blood culture 10/17/2018 no growth. Blood culture 10/20/2018: no growth Stool Occult Blood 10/23/18: positive Blood culture 10/29/18: negative Urine culture 10/31/18: Ana Paula Blood culture 11/05/18: no growth to date Assessment: 43 y/o male with history of HIV (unknown CD4/VL/ART intake), HTN, CVA 6 months ago at [place], Nicotine Dependence, Malnutrition; admitted on 10/10/2018 due to AMS (confusion/lethargy) and slurred speech for 24 h: 1) SIRS versus sepsis: no fevers in >24 hours, s/p femoral HD cath removed 11/06/18, Right IJ VAS cath placed. Started HIV treatment on 10/30/2018. - CXR neg - BNP 70K - Troponin 0.2 - LDH 2242 2) Acute hypoxemic respiratory failure: for airway protection +/- ? pneumonia. Repeat CXR no consolidations. Ana Paula in tracha sp likely a colonizer. Extubated 10/15. Continues on atovaquone as prophylaxis. Patient has sulfa allergy. 3) Acute encephalopathy: Improved.; multifactorial ?from hypertensive urgency +/- brain opportunistic infection. DDx: Neurosyphilis, VZV/CMV encephalitis versus [employer] lymphoma versus less likely PML v/s ischemic CVA (seems more likely) - CT head showed bilateral chronic ischemic changes. - Brain MRI showed areas of edema in the basal ganglia and thalami bilaterally, within the jamari and in the cerebral hemispheres bilaterally in the subcortical and deep white matter and in portions of the cortex, areas of encephalomalacia in the basal ganglia bilaterally with evidence of previous hemorrhage or mineral deposition and numerous small foci of acute infarct in the basal ganglia bilaterally, subinsular regions bilaterally and medial temporal lobes bilaterally and possibly in the occipital cortex bilaterally. - Brain MRA showed possible dissection versus artifact at the basilar artery. Luminal irregularity at the anterior, middle, and posterior cerebral arteries as well as the carotid siphons may represent mild to moderate atherosclerotic disease. More notable narrowing at the distal right A1 segment. Differential diagnosis includes motion artifact and vasculitis. Vertebral arteries are not clearly visualized. - CSF wbc 4, rbc 113, Seg 8%, Lymph 76%, protein 55, glucose 73 which is not c/w meningitis - RPR reactive 1:32 / FTA ABs reactive, treated with penicillin and ceftriaxone but CSF VDRL Non reactive. - Toxoplasma IgG negative, CSF Toxoplasma PCR: negative - Blood CMV DNA VL=1,370, 3.1 log on ganciclovir - likely reactivation - Repeat CMV DNA PCR 10/24/2018: <200. Off ganciclovir. - Glucan Assay: negative 4) Anemia/thrombocytopenia: improving. 5) Acute on CKD or SHRUTHI ? unclear etiology: on HD. 6) DM: uncontrolled. 7) HIV/AIDS: VL 320,000 / CD4=3 on 10/11/2018. Continue HIV therapy (started on ): renally adjusted TDF, FTC along with dolutegravir and ritonavir boosted darunavir. Follow up Genotype and if no resistance mutations, possibly d/c both TDF and FTC and continue nuc-sparing regimen of dolutegravir along with ritonavir boosted darunavir. Recommendations: -continue atovaquone 750 mg BID -continue HIV therapy: renally adjusted TDF, FTC along with dolutegravir and ritonavir boosted darunavir -follow up HIV Genotype -f/u repeat blood cultures [facility] M: [phone] O:[phone] Subjective Date of service: 11/07/18 Principal diagnosis: anemia - HIV Interval history: Patient seen and examined. No acute distress observed. Generalized weakness. Non-conversant today. Objective - Exam Narrative Exam: General appearance: Awake, Alert, No acute distress Eyes: anicteric sclerae, moist conjunctivae; no lid-lag; PERRLA HENT: Atraumatic; oropharynx limited Neck: Trachea midline; supple, no thyromegaly or lymphadenopathy Lungs: CTA, with normal respiratory effort, on CV: tachycardic Abdomen: Soft, non-tender;+SP cath : + rectal bag Extremities: No peripheral edema or extremity lymphadenopathy Skin: Normal temperature, turgor and texture; no rash, ulcers or subcutaneous nodules Psych: affect: Flat Neuro: Generalized weakness, not following commands - Constitutional Vitals: Vital Signs Temp Pulse Resp BP Pulse Ox 98.6 F 114 H 26 H 133/81 98 11/07/18 05:40 11/07/18 07:58 11/07/18 07:58 11/07/18 05:40 11/06/18 22:30 Temperature -Last 24 Hours Temperature 98.6 F Temperature 98.5 F Temperature 98.6 F Temperature 98.6 F Temperature 98.0 F Temperature 98.0 F - Labs CBC & Chem 7: 11/06/18 13:18 11/07/18 07:20 Labs: Abnormal lab results 11/06/18 11/06/18 11/06/18 Range/Units 13:18 13:18 13:18 RBC 2.97 L (3.65-5.03) M/mm3 Hgb 8.6 L (11.8-15.2) gm/dl Hct 27.2 L (35.5-45.6) % RDW 20.7 H (13.2-15.2) % Seg Neuts % (Manual) 82.0 H (40.0-70.0) % Lymphocytes % (Manual) 11.0 L (13.4-35.0) % Nucleated RBC % 12.0 H (0.0-0.9) % Lymphocytes # (Manual) 1.0 L (1.2-5.4) K/mm3 PT (12.2-14.9) Sec. INR (0.87-1.13) Heparin Anti-Xa Level (0.3-0.7) U.I./ml Sodium (137-145) mmol/L Potassium 6.4 H* D 6.2 H* (3.6-5.0) mmol/L Chloride 95.6 L 94.0 L (98-107) mmol/L Carbon Dioxide 21 L 20 L (22-30) mmol/L BUN 106 H 106 H (9-20) mg/dL Creatinine 11.3 H 11.3 H (0.8-1.5) mg/dL Glucose 122 H 117 H (75-100) mg/dL Calcium (8.4-10.2) mg/dL 11/06/18 11/06/18 11/07/18 Range/Units 13:18 23:34 07:20 RBC (3.65-5.03) M/mm3 Hgb (11.8-15.2) gm/dl Hct (35.5-45.6) % RDW (13.2-15.2) % Seg Neuts % (Manual) (40.0-70.0) % Lymphocytes % (Manual) (13.4-35.0) % Nucleated RBC % (0.0-0.9) % Lymphocytes # (Manual) (1.2-5.4) K/mm3 PT 17.7 H (12.2-14.9) Sec. INR 1.36 H (0.87-1.13) Heparin Anti-Xa Level 0.10 L (0.3-0.7) U.I./ml Sodium 134 L (137-145) mmol/L Potassium 5.4 H (3.6-5.0) mmol/L Chloride 92.6 L (98-107) mmol/L Carbon Dioxide (22-30) mmol/L BUN 58 H (9-20) mg/dL Creatinine 7.1 H (0.8-1.5) mg/dL Glucose 105 H (75-100) mg/dL Calcium 8.2 L (8.4-10.2) mg/dL 11/07/18 Range/Units 07:20 RBC (3.65-5.03) M/mm3 Hgb (11.8-15.2) gm/dl Hct (35.5-45.6) % RDW (13.2-15.2) % Seg Neuts % (Manual) (40.0-70.0) % Lymphocytes % (Manual) (13.4-35.0) % Nucleated RBC % (0.0-0.9) % Lymphocytes # (Manual) (1.2-5.4) K/mm3 PT (12.2-14.9) Sec. INR (0.87-1.13) Heparin Anti-Xa Level < 0.10 L (0.3-0.7) U.I./ml Sodium (137-145) mmol/L Potassium (3.6-5.0) mmol/L Chloride (98-107) mmol/L Carbon Dioxide (22-30) mmol/L BUN (9-20) mg/dL Creatinine (0.8-1.5) mg/dL Glucose (75-100) mg/dL Calcium (8.4-10.2) mg/dL
--- NOTE | 2018-11-07 11:30 | Progress Note ---
Assessment and Plan Assessment and plan: patient is 43 YO Male with HIV, hypertension, previous stroke, Nicotine Dependence, presents to ED for evaluation. Patient was confused and lethargic and unable to provide history. He was seen and evaluated in ED and found to be in distress and unable to protect his airway and was therefore intubated, placed on ventilator in ER then admitted MR brain 10/11 1. Study somewhat degraded by motion artifact. 2 Areas of edema in the basal ganglia and thalami bilaterally, within the jamari and in the cerebral hemispheres bilaterally in the subcortical and deep white matter and in portions of the cortex. 3. Areas of encephalomalacia in the basal ganglia bilaterally with evidence of previous hemorrhage or mineral deposition. 4. Numerous small foci of acute infarct in the basal ganglia bilaterally, subinsular regions bilaterally and medial temporal lobes bilaterally and possibly in the occipital cortex bilaterally. The above findings may be secondary to an infectious or noninfectious etiology with a component of vasculopathy or vasculitis resulting in infarcts. Viral encephalopathies and lymphoma would need to be considered in this patient with history of HIV. Neuro ams acute metabolic encephalopathy improving /Acute CVA with Bilateral infarcts with edema Consulted Neurology, he was evaluated by DR. Valentine. Could be due to possible vasculitis - further workup pending Dysphagia/ moderate malnutrition -MBS 10/23, recommended pureed with nectar thickened liquids, unable to tolerate po at this time Hematology Anemia- stable, thrombocytopenia, leukocytosis, coagulopathy; now resolved -Status post platelet and prbc transfusion, the patient had only few schistocytes on smear, ADAMS13 91% activity ID HIV/AIDS, CD4 count 3, HIV viral load 320,000 acute bacterial PNA, CMV viremia toxo neg, CSF neg Whole blood cmv PCR was positive at 1374 abx and a antiviral per ID high fever, cxr shows improvement of vasc congestion, fup blood cx, fenirak vas cath removed 11/06, now has IJ vas cath -he was put back on HAART, he likely has component of IRIS causing fevers and sob -CT on 11/06 confirms patchy infiltrate IRIS vs pna, abx per ID FEN/Renal SHRUTHI- ATN, Hyperkalemia, urinary retention sp SPC on 10/12 cont HD per nephrology, no signs of renal recovery Pulm acute hypoxic resp failure on MV> 96 hours self extubated 10/16, continue supplemental oxygen CTA neg for PE on 11/06 CVS /Hypertensive urgency and acute systolic CHF He was treated with Cardene drip which was weaned off. Optimize medications for CHF on coreg, no mik due to high K, fluid removal by dialysis Skin Stage 2 sacral wound decub . The wound was measured at 5.0x4.0. Small serous sanguineous drainage noticed from the wound. no evidence of infection, cont wound care DVT ppx- heparin sq History Interval history: Patient continues to have weakness of his voice, fevers resolved Review of systems Constitutional: ,overall malaise CVS: No chest pain, no orthopnea, no dyspnea on exertion, no pedal edema GI: No abdominal pain, no diarrhea, no vomiting, no constipation Respiratory: having shortness of breath, no wheezing, also has dry coughing Hospitalist Physical - Physical exam Narrative exam: General.: Appears well, no distress, nontoxic HEENT: Moist mucous membranes, extraocular muscles intact, no lymphadenopathy Neck: supple Cardiac: S1-S2 heard Lungs: rales Abdomen: soft , nontender, nondistended, bowel sounds positive Extremities: no edema clubbing or cyanosis Skin: no rash or lesions Neurologic: no gross focal deficits Psych: calm, and cooperative - Constitutional Vitals: Temp Pulse Resp BP Pulse Ox 98.6 F 114 H 26 H 133/81 98 11/07/18 05:40 11/07/18 07:58 11/07/18 07:58 11/07/18 05:40 11/06/18 22:30 General appearance: Present: no acute distress Results - Labs CBC & Chem 7: 11/06/18 13:18 11/07/18 07:20 Labs: Laboratory Last Values WBC 9.3 K/mm3 (4.5-11.0) 11/06/18 13:18 RBC 2.97 M/mm3 (3.65-5.03) L 11/06/18 13:18 Hgb 8.6 gm/dl (11.8-15.2) L 11/06/18 13:18 Hct 27.2 % (35.5-45.6) L 11/06/18 13:18 MCV 91 fl (84-94) 11/06/18 13:18 MCH 29 pg (28-32) 11/06/18 13:18 MCHC 32 % (32-34) 11/06/18 13:18 RDW 20.7 % (13.2-15.2) H 11/06/18 13:18 Plt Count 195 K/mm3 (140-440) 11/06/18 13:18 Add Manual Diff Complete 11/06/18 13:18 Total Counted 100 11/06/18 13:18 Seg Neuts % (Manual) 82.0 % (40.0-70.0) H 11/06/18 13:18 Band Neutrophils % 0 % 11/06/18 13:18 Lymphocytes % (Manual) 11.0 % (13.4-35.0) L 11/06/18 13:18 Reactive Lymphs % (Man) 0 % 11/06/18 13:18 Monocytes % (Manual) 5.0 % (0.0-7.3) 11/06/18 13:18 Eosinophils % (Manual) 0 % (0.0-4.3) 11/06/18 13:18 Basophils % (Manual) 1.0 % (0.0-1.8) 11/06/18 13:18 Metamyelocytes % 1.0 % 11/06/18 13:18 Myelocytes % 0 % 11/06/18 13:18 Promyelocytes % 0 % 11/06/18 13:18 Blast Cells % 0 % 11/06/18 13:18 Nucleated RBC % 12.0 % (0.0-0.9) H 11/06/18 13:18 Seg Neutrophils # Man 7.6 K/mm3 (1.8-7.7) 11/06/18 13:18 Band Neutrophils # 0.0 K/mm3 11/06/18 13:18 Abs Lymphs (Manual) 267 cells/uL (850-3900) L 10/11/18 17:36 Lymphocytes # (Manual) 1.0 K/mm3 (1.2-5.4) L 11/06/18 13:18 Abs React Lymphs (Man) 0.0 K/mm3 11/06/18 13:18 Monocytes # (Manual) 0.5 K/mm3 (0.0-0.8) 11/06/18 13:18 Eosinophils # (Manual) 0.0 K/mm3 (0.0-0.4) 11/06/18 13:18 Basophils # (Manual) 0.1 K/mm3 (0.0-0.1) 11/06/18 13:18 Metamyelocytes # 0.1 K/mm3 11/06/18 13:18 Myelocytes # 0.0 K/mm3 11/06/18 13:18 Promyelocytes # 0.0 K/mm3 11/06/18 13:18 Blast Cells # 0.0 K/mm3 11/06/18 13:18 Pathologist Review 10/15/18 03:14 WBC Morphology Not Reportable 11/06/18 13:18 Hypersegmented Neuts Not Reportable 11/06/18 13:18 Hyposegmented Neuts Not Reportable 11/06/18 13:18 Hypogranular Neuts Not Reportable 11/06/18 13:18 Smudge Cells Not Reportable 11/06/18 13:18 Toxic Granulation Not Reportable 11/06/18 13:18 Toxic Vacuolation Not Reportable 11/06/18 13:18 Dohle Bodies Not Reportable 11/06/18 13:18 Pelger-Huet Anomaly Not Reportable 11/06/18 13:18 Kartik Rods Not Reportable 11/06/18 13:18 Platelet Estimate Consistent w auto 11/06/18 13:18 Clumped Platelets Not Reportable 11/06/18 13:18 Plt Clumps, EDTA Not Reportable 11/06/18 13:18 Large Platelets 1+ 11/06/18 13:18 Giant Platelets Not Reportable 11/06/18 13:18 Platelet Satelliting Not Reportable 11/06/18 13:18 Plt Morphology Comment Not Reportable 11/06/18 13:18 RBC Morphology Not Reportable 11/06/18 13:18 Dimorphic RBCs Not Reportable 11/06/18 13:18 Polychromasia Not Reportable 11/06/18 13:18 Hypochromasia Not Reportable 11/06/18 13:18 Poikilocytosis 1+ 11/06/18 13:18 Anisocytosis 1+ 11/06/18 13:18 Microcytosis Not Reportable 11/06/18 13:18 Macrocytosis Not Reportable 11/06/18 13:18 Spherocytes Not Reportable 11/06/18 13:18 Pappenheimer Bodies Not Reportable 11/06/18 13:18 Sickle Cells Not Reportable 11/06/18 13:18 Target Cells Not Reportable 11/06/18 13:18 Tear Drop Cells 1+ 11/06/18 13:18 Ovalocytes Few 11/06/18 13:18 Helmet Cells Not Reportable 11/06/18 13:18 Smith-[place] Bodies Not Reportable 11/06/18 13:18 [place] Rings Not Reportable 11/06/18 13:18 [place] Cells Not Reportable 11/06/18 13:18 Bite Cells Not Reportable 11/06/18 13:18 Crenated Cell Not Reportable 11/06/18 13:18 Elliptocytes Not Reportable 11/06/18 13:18 Acanthocytes (Spur) Not Reportable 11/06/18 13:18 Rouleaux Not Reportable 11/06/18 13:18 Hemoglobin C Crystals Not Reportable 11/06/18 13:18 Schistocytes Not Reportable 11/06/18 13:18 Malaria parasites Not Reportable 11/06/18 13:18 Jv Bodies Not Reportable 11/06/18 13:18 Hem Pathologist Commnt No 11/06/18 13:18 PT 17.7 Sec. (12.2-14.9) H 11/06/18 13:18 INR 1.36 (0.87-1.13) H 11/06/18 13:18 APTT 30.6 Sec. (24.2-36.6) 11/06/18 13:18 Thrombin Time 16.9 Sec. (15.1-19.6) 10/10/18 15:02 Heparin Anti-Xa Level < 0.10 U.I./ml (0.3-0.7) L 11/07/18 07:20 Heparin Anti-Xa, Unfract Negative (Negative) 10/25/18 05:59 POC ABG pH 7.514 (7.35-7.45) H 11/03/18 16:12 POC ABG pCO2 32.0 (35-45) L 10/21/18 09:49 POC ABG pO2 62 (80-105) L 11/03/18 16:12 POC ABG HCO3 23.2 (22-26 mml/L) 11/03/18 16:12 POC ABG Total CO2 24 (23-27mmol/L) 11/03/18 16:12 POC ABG O2 Sat 94 11/03/18 16:12 POC ABG Base Excess 0 ((-2) - (+3)mmol/L) 11/03/18 16:12 FiO2 4 % 11/03/18 16:12 Sodium 134 mmol/L (137-145) L 11/07/18 07:20 Potassium 5.4 mmol/L (3.6-5.0) H 11/07/18 07:20 Chloride 92.6 mmol/L (98-107) L 11/07/18 07:20 Carbon Dioxide 23 mmol/L (22-30) 11/07/18 07:20 Anion Gap 24 mmol/L 11/07/18 07:20 BUN 58 mg/dL (9-20) H 11/07/18 07:20 Creatinine 7.1 mg/dL (0.8-1.5) H 11/07/18 07:20 Estimated GFR 10 ml/min 11/07/18 07:20 BUN/Creatinine Ratio 8 % 11/07/18 07:20 Glucose 105 mg/dL (75-100) H 11/07/18 07:20 POC Glucose 139 (70-105) H 10/20/18 13:07 Osmolality 338 Mosm/kg 10/11/18 17:35 Lactic Acid 1.80 mmol/L (0.7-2.0) 10/12/18 05:59 Uric Acid 13.4 mg/dL (3.5-7.6) H 10/11/18 17:36 Calcium 8.2 mg/dL (8.4-10.2) L 11/07/18 07:20 Phosphorus 8.30 mg/dL (2.5-4.5) H 10/25/18 10:00 Magnesium 3.10 mg/dL (1.7-2.3) H 10/18/18 05:03 Iron 147 ug/dL (49-181) 10/11/18 17:36 TIBC 236 mcg/dL (250-450) L 10/11/18 17:36 Ferritin 97001.0 ng/mL (13.0-400.0) H 10/11/18 17:35 Total Bilirubin 0.40 mg/dL (0.1-1.2) 10/25/18 10:00 Direct Bilirubin 0.2 mg/dL (0-0.2) 10/16/18 04:07 Indirect Bilirubin 0.3 mg/dL 10/16/18 04:07 AST 46 units/L (5-40) H 10/25/18 10:00 ALT 21 units/L (7-56) 10/25/18 10:00 Alkaline Phosphatase 102 units/L (35-129) 10/25/18 10:00 Ammonia 25.0 umol/L (25-60) 10/17/18 14:59 Lactate Dehydrogenase 925 units/L (91-180) H 10/22/18 05:51 Troponin T 0.357 ng/mL (0.00-0.029) H* 11/06/18 05:54 NT-Pro-B Natriuret Pep 51924 pg/mL (0-450) H 10/10/18 15:42 Total Protein 8.1 g/dL (6.3-8.2) 10/25/18 10:00 Albumin 3.5 g/dL (3.9-5) L 10/25/18 10:00 Albumin/Globulin Ratio 0.8 % 10/25/18 10:00 Triglycerides 306 mg/dL (2-149) H 11/05/18 11:29 Cholesterol 145 mg/dL (50-199) 11/05/18 11:29 LDL Cholesterol Direct 89 mg/dL (50-130) 11/05/18 11:29 HDL Cholesterol 25 mg/dL (40-59) L 11/05/18 11:29 Cholesterol/HDL Ratio 5.80 % 11/05/18 11:29 Serotonin Release Assay See scanned result 10/25/18 05:59 Vitamin B12 912.3 pg/mL (211-911) H 10/14/18 08:51 Folate 8.32 ng/mL (7.3-26.0) 10/14/18 08:51 PTH Intact 388.7 pg/mL (15-65) H 10/25/18 10:00 Urine Creatinine 30.8 mg/dL (0.1-20.0) H 10/13/18 04:43 Urine Sodium 106 mmol/L 10/13/18 04:43 Urine Total Protein 75 mg/dL (5-11.8) H 10/13/18 04:43 CSF Appearance Clear 10/16/18 15:00 CSF Color Colorless 10/16/18 15:00 CSF WBC 4 /mm3 (1-10) 10/16/18 15:00 CSF RBC 113 /mm3 (0-0) 10/16/18 15:00 CSF Seg Neutrophils 8.0 % (0-6) 10/16/18 15:00 CSF Lymphocytes % 76.0 % (40-80) 10/16/18 15:00 CSF Reactive Lymphs 2.0 % 10/16/18 15:00 CSF Monocytes % 14.0 % (15-45) 10/16/18 15:00 CSF Eosinophils % 0 % 10/16/18 15:00 CSF Basophils 0 % 10/16/18 15:00 CSF Pathologist Review C 10/16/18 15:00 CSF Glucose 73 mg/dL 10/16/18 15:00 CSF Total Protein 55 mg/dL 10/16/18 15:00 CSF VDRL Nonreactive (Nonreactive) 10/16/18 15:00 Random Vancomycin 18.9 ug/mL (0-40.0) 10/29/18 07:13 Immunofix Electrophor see below 10/11/18 17:36 RENO Screen Negative (Negative) 10/21/18 15:07 Proteinase 3 (PR3) Ab <1.0 AI (<1.0) 10/21/18 15:07 Myeloperoxidase Ab <1.0 AI (<1.0) 10/21/18 15:07 Heparin-induced Plt Ab Negative (Negative) 10/25/18 05:59 UF Heparin High Dose 0 % Release 10/25/18 05:59 VJ UFH Low Dose 0.1 0 % Release 10/25/18 05:59 VJ UFH Low Dose 0.5 14 % Release 10/25/18 05:59 Lymph Enumerat CD4/CD8 0.01 (0.86-5.00) L 10/11/18 17:36 % CD3 Cells 85 % (57-85) 10/11/18 17:36 Absolute CD3 Count 226 cells/uL (840-3060) L 10/11/18 17:36 % CD4 Cells 1 % (30-61) L 10/11/18 17:36 Absolute CD4 Count 3 cells/uL (490-1740) L 10/11/18 17:36 % CD8 Cells 82 % (12-42) H 10/11/18 17:36 Absolute CD8 Count 228 cells/uL (180-1170) 10/11/18 17:36 % CD19 Cells 6 % (6-29) 10/11/18 17:36 Absolute CD19 Count 16 cells/uL (110-660) L 10/11/18 17:36 RPR Titer 1:32 10/11/18 17:37 RPR Reactive (Nonreactive) 10/11/18 17:37 T.pallidum Ab (FTA-ABS) Reactive (Nonreactive) H 10/12/18 Unknown CMV DNA PCR log mass spectroscopist/mL See scanned result 10/24/18 17:47 Hepatitis A IgM Ab Non-reactive (NonReactive) 10/11/18 17:34 Hep Bs Antigen Non-reactive (Negative) 10/11/18 17:34 Hep B Core IgM Ab Non-reactive (NonReactive) 10/11/18 17:34 Hepatitis C Antibody Non-reactive (NonReactive) 10/11/18 17:34 HIV-1 RNA PCR copies/ml [id number] Copies/mL H 10/11/18 17:36 HIV-1 RNA (PCR) log 5.51 Log cps/mL H 10/11/18 17:36 Toxoplasma IgG Ab <7.20 IU/mL (<7.20) 10/13/18 07:54 Miscellaneous Test Flexitest 1 10/31/18 06:43 Blood Type A POSITIVE 10/23/18 09:12 Antibody Screen Negative 10/23/18 09:12 Crossmatch See Detail 10/23/18 09:12 Active Medications - Current Medications Current Medications: Generic Name Dose Route Start Last Admin Trade Name Freq PRN Reason Stop Dose Admin Acetaminophen 500 mg 10/16/18 10:02 11/05/18 16:40 Tylenol PO 500 mg Q6H PRN Administration Fever >101 Albumin Human 25 gm 11/04/18 16:14 Alburx 25% (Albumin) IV CHON PRN Hypotension Albuterol 2.5 mg 10/10/18 18:12 Proventil IH Q3HRT PRN Shortness Of Breath Albuterol/Ipratropium 1 ampul 10/25/18 08:00 11/07/18 07:43 Duoneb *Not For Prn Use* IH 1 ampul TIDRT RUBI Administration Amlodipine Besylate 10 mg 10/11/18 10:00 11/06/18 12:46 Norvasc PO Not Given QDAY RUBI Lipase/Protease/Amylase 1 each 10/11/18 12:58 Pancrebecka Reed 10,500 Unit FEEDTUBE PRN PRN For Clogged Feeding Tube Arformoterol Tartrate 15 mcg 10/20/18 11:45 11/07/18 07:43 Brorussell Bluntu IH Not Given Q12HRT RUBI Atovaquone 750 mg 10/18/18 10:00 11/06/18 22:20 Mepron PO 750 mg BID RUBI Administration Carvedilol 12.5 mg 10/22/18 22:00 11/06/18 22:23 Coreg PO 12.5 mg BID RUBI Administration Darunavir 800 mg 10/30/18 18:00 11/06/18 12:47 Prezista PO Not Given QDAY RUBI Emtricitabine 200 mg 11/01/18 10:00 11/05/18 10:01 Emtriva PO Not Given Q48HR RUBI Epoetin Dany 10,000 unit 11/04/18 16:15 Procrit IV CHON PRN hemodialysis Haloperidol Lactate 5 mg 10/13/18 19:45 10/20/18 21:08 Haldol IV 5 mg Q6H PRN Administration Agitation Heparin Sodium (Porcine) 5,000 unit 11/04/18 16:15 Heparin IV CHON PRN hemodialysis Hydralazine HCl 10 mg 10/12/18 15:50 10/28/18 22:36 Apresoline IV 10 mg Q4HR PRN Administration SBP>175 or DBP>115 Hydrophilic Ointment 1 applic 10/10/18 17:53 Vaseline Lip Therapy TP Q2HR PRN Dry Lips Dextrose 1,000 mls @ 42 mls/hr 11/05/18 19:00 11/07/18 01:01 D5w IV 42 mls/hr DIRECT RUBI Administration Heparin Sodium/Sodium Chloride 25,000 unit in 500 mls @ 15 mls/hr 11/06/18 13:00 11/07/18 01:36 Heparin/ 0.45% Nacl-25,000 Unit/500 Ml IV 850 units/hr TITR RUBI 17 mls/hr Titration Protocol 750 UNITS/HR Sodium Chloride 100 mls @ 999 mls/hr 11/07/18 09:20 Nacl 0.9% IV CHON PRN Hypotension Lansoprazole 30 mg 10/15/18 10:00 11/06/18 22:24 Prevacid Solutab FEEDTUBE 30 mg BID RUBI Administration Lorazepam 1 mg 10/13/18 19:48 10/21/18 04:09 Ativan IV 1 mg Q4H PRN Administration agitation Metoprolol Tartrate 5 mg 10/18/18 14:05 Lopressor IV Q6HR PRN Tachyarrhythmias Multi-Ingred Cream/Lotion/Oil/Oint 1 applic 10/10/18 17:53 Artificial Tears Ophth Oint OU Q4HR PRN Dry Eye(s) Multivitamins 1 each 10/11/18 10:00 11/06/18 12:46 Theragran Tab PO Not Given DAILY [facility] Nystatin 100,000 unit 11/02/18 18:00 11/06/18 22:00 Nystatin PO Not Given QID [facility] Ritonavir 100 mg 10/30/18 18:00 11/06/18 12:47 Norvir PO Not Given QDAY RUBI Simple Syrup 15 ml 10/11/18 12:58 Simple Syrup FEEDTUBE PRN PRN Hypoglycemia Simple Syrup 30 ml 10/11/18 12:58 Simple Syrup FEEDTUBE PRN PRN Hypoglycemia Sodium Bicarbonate 325 mg 10/11/18 12:58 Sodium Bicarbonate FEEDTUBE PRN PRN For Clogged Feeding Tube Sodium Chloride 10 ml 10/10/18 22:00 11/06/18 22:20 Sodium Chloride Flush Syringe 10 Ml IV 10 ml BID RUBI Administration Sodium Chloride 10 ml 10/10/18 18:12 Sodium Chloride Flush Syringe 10 Ml IV PRN PRN LINE FLUSH Tenofovir Disoproxil Fumarate 300 mg 10/30/18 17:45 11/03/18 17:45 Viread PO Not Given Q96H [facility] Nutrition/Malnutrition Assess - Dietary Evaluation Nutrition/Malnutrition Findings: Nutrition Notes Start: 10/11/18 11:14 Freq: Status: Active Protocol: Document 11/06/18 14:25 TW (Rec: 11/06/18 14:31 TW [id number]) Co-Sign 11/06/18 14:25 LP Nutrition Notes Initial or Follow up Reassessment Current Diagnosis Acute Kidney Injury,CKD(stage I-IV),Hypertension,Stroke Other Pertinent Diagnosis on HD, Acute encephalopathy, HIV/AIDS, Syphilis, dysphagia Current Diet Pureed Labs/Tests Reviewed Pertinent Medications Reviewed Height 5 ft 9 in Weight 51.5 kg [place] Body Weight (kg) 72.72 BMI 16.7 Subjective/Other Information F/U for intakes. Pt not in room at time of visit. Per RN, pt has been NPO for a procedure but will get lunch when pt returns. Percent of energy/protein needs met: 0%/0% Burn Absent Trauma Absent Current % PO Negligible #1 Nutrition Diagnosis Inadequate oral intake Diagnosis Progress(for reassessment Continues documentation) Is patient on ventilator? No Is Patient Ambulatory and/or Out of Bed No REE-([facility]-confined to bed) [phone] Calculation Used for Recommendations [facility] Additional Notes Pro needs 1.2-1.5g/k-79g/ day Fluid needs 1ml/kcal Nutrition Intervention Change Diet Order: Advance diet when medically able Add Supplement/Snack (indicate name/kcal Nepro 1 daily once diet /protein ) advanced Provides kCal: 425 Provides Protein (gm) 19 Goal #1 Meet at least 75% of calorie and protein needs via PO and ONS intakes Anticipated Discharge Needs: Pureed, Renal diet Follow-Up By: 11/08/18 Additional Comments Follow for PO and ONS intakes
[2018-11-07] MEDS: COREG PO SCH ×2 (13:55→22:32)
[2018-11-07] MEDS: NORVASC PO SCH (13:55)
[2018-11-07] MEDS: SODIUM CHLORIDE FLUSH SYRINGE 10 ML IV SCH ×2 (13:57→22:28)
[2018-11-07] MEDS ORDERED: HEPARIN IV STA (13:57)
[2018-11-07] MEDS: EMTRIVA PO SCH (14:26)
[2018-11-07] MEDS: MEPRON PO SCH ×2 (14:27→22:27)
[2018-11-07] MEDS: PREZISTA PO SCH (14:27)
[2018-11-07] MEDS: PREVACID SOLUTAB FEEDTUBE SCH ×2 (14:27→22:27)
[2018-11-07] MEDS: NORVIR PO SCH (14:27)
[2018-11-07] MEDS: THERAGRAN Tab PO SCH (14:28)
[2018-11-07] MEDS: TIVICAY PO SCH (14:28)
[2018-11-07] MEDS: VIREAD PO SCH (18:09)
[2018-11-07] MEDS ORDERED: NACL 0.9 (PRIMING MACHINE ONLY DIALYSIS) MC ONE (18:45)
[2018-11-07] MEDS: HEPARIN SUB-Q SCH (22:27)
[2018-11-08] MEDS: NYSTATIN PO SCH ×5 (01:18→21:56)
--- NOTE | 2018-11-08 07:24 | Hem/Onc Progress Note ---
Assessment and Plan 1. Anemia. At admission, hemoglobin was 8.1, later low and s/p Transfusion support. 2. Platelets at admission was 20. 3. White cell count was elevated. 4. PT/INR h/o slightly elevated. 5. Renal failure. 6. ALT elevated. 7. The patient has multiple medical issues. PLAN: I will ask for a smear evaluation. I will call the lab for same. Supportive care in the interim while we looked for primary etiology. 3 - plt better - s/p transfusion d/w dr rain and dr carrillo 10/14 - low plt - rasta ctive bleed suprapubic catheter 10/15 - plt were rising and again going down' pt had got plt transfusion LDH high - [id number] ordered smear - ordererd LDH may be high in other causes too - renal etc 10/16 - d/w path - not many schistocytes on smear - ADAMTS 13 ordered extubated 10/17 - plt low - path review ordered d/w armin monsalve 10/18 - path report pending plt low - but no active bleeding 10/19 - pt more alert - follows commands no bleeding 10/20 pt SOB - d/w Dr Monsalve and RN plt low - but no bleeding NGT+ more awake 10/21 - pt in [facility] plt >100 - more awake 10/22 - clinically better - moves all 4 limbs 10/23 - clinically stable - prbc suport 10/24 - as per RN -pt passed barium - for thickened diet pt has suprapubic got PRBC plt improving 10/25 - clinically better no active bleeding 10/26 - moving all extremity -communicating repeat cbc 10/27 - labs better - clinically improving 10/28 - plt now normal - hb better - s/p PRBC recent CKD may have a role 10/29 - pt clinically stable - 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 - electrolyte abn 10/30 - cbc improving - pt had question reg rectal tube - he will d/w other MDs 10/31 - plt better - hb better - OP follow up an option 11/01 - labs follow up 11/02 anemia d/w rn - rectal tube - decubiti suprapubic HD cath change planned 11/03/2018 pt getting HD rectal tube present 11/04- on o2 will follow labs gets HD 11/05 anemia slight SOB - on o2 HD cath 11/06 - d/w dr Shen reg pt anemia HD cath fever issues 11/07 CT shows pneumonia hb better 11/08 - anemia - d/w dr mcmullen - PRBC and follow - Patient Problems (1) Thrombocytopenia associated with AIDS Current Visit: Yes Status: Acute (2) Anemia Current Visit: Yes Status: Acute Qualifiers: Anemia type: due to chronic kidney disease Chronic kidney disease stage: unspecified stage Qualified Code(s): N18.9 - Chronic kidney disease, unspecified; D63.1 - Anemia in chronic kidney disease Subjective Date of service: 11/08/18 Principal diagnosis: anemia Interval history: no bleeding Objective - Constitutional Vitals: Last Vital Signs Temp 98.7 F 11/08/18 06:15 Pulse 112 H 11/08/18 06:15 Resp 22 11/08/18 06:15 BP 128/82 11/08/18 06:15 Pulse Ox 100 11/08/18 06:15 Pain Intensity (0-10): denies any pain General appearance: no acute distress Performance status: 4-completely disabled - EENT Eyes: EOM intact ENT: clear oral mucosa Lymph node exam: negative cervical - Neck Neck: normal ROM - Respiratory Respiratory effort: Positive: normal Respiratory: bilateral: diminished - Cardiovascular Heart Sounds: Present: S1 & S2 Extremities: No edema - Gastrointestinal General gastrointestinal: Present: soft Rectal Exam: deferred - Genitourinary Male genitourinary: Present: deferred - Integumentary Integumentary: warm - Musculoskeletal Musculoskeletal: generalized weakness - Neurologic Neurologic: moves all extremities - Labs Lab Results: Laboratory Results - last 24 hr 11/07/18 11/07/18 11/07/18 07:20 07:20 21:31 Heparin Anti-Xa Level < 0.10 L < 0.10 L Sodium 134 L Potassium 5.4 H Chloride 92.6 L Carbon Dioxide 23 Anion Gap 24 BUN 58 H Creatinine 7.1 H Estimated GFR 10 BUN/Creatinine Ratio 8 Glucose 105 H Calcium 8.2 L Medications & Allergies - Medications Allergies/Adverse Reactions: Allergies Sulfa (Sulfonamide Antibiotics) Allergy (Verified 10/10/18 16:54) Unknown Home Medications: Home Medications Medication Instructions Recorded Confirmed Last Taken Type Acetaminophen [Tylenol] 1,000 mg PO Q6HR 10/10/18 10/10/18 Unknown History Amlodipine Besylate [Norvasc] 10 mg PO QDAY 10/10/18 10/10/18 Unknown History Aspirin [Adult Aspirin] 81 mg PO DAILY 10/10/18 10/10/18 Unknown History Atorvastatin [Lipitor Tab] 80 mg PO DAILY 10/10/18 10/10/18 Unknown History Losartan [Cozaar] 100 mg PO QDAY 10/10/18 10/10/18 Unknown History Multivitamin [Multiple Vitamins] 1 each PO DAILY 10/10/18 10/10/18 Unknown History hydroCHLOROthiazide [HCTZ] 25 mg PO QDAY 10/10/18 10/10/18 Unknown History Active Medications: Generic Name Dose Route Start Last Admin Trade Name Freq PRN Reason Stop Dose Admin Acetaminophen 500 mg 10/16/18 10:02 11/05/18 16:40 Tylenol PO 500 mg Q6H PRN Administration Fever >101 Albumin Human 25 gm 11/04/18 16:14 Alburx 25% (Albumin) IV CHON PRN Hypotension Albuterol 2.5 mg 10/10/18 18:12 Proventil IH Q3HRT PRN Shortness Of Breath Albuterol/Ipratropium 1 ampul 10/25/18 08:00 11/07/18 22:12 Duoneb *Not For Prn Use* IH 1 ampul TIDRT RUBI Administration Amlodipine Besylate 10 mg 10/11/18 10:00 11/07/18 13:55 Norvasc PO Not Given QDAY RUBI Lipase/Protease/Amylase 1 each 10/11/18 12:58 Pancrebecka Reed 10,500 Unit FEEDTUBE PRN PRN For Clogged Feeding Tube Arformoterol Tartrate 15 mcg 10/20/18 11:45 11/07/18 22:12 Brovana Nebu IH 15 mcg Q12HRT RUBI Administration Atovaquone 750 mg 10/18/18 10:00 11/07/18 22:27 Mepron PO 750 mg BID RBUI Administration Carvedilol 12.5 mg 10/22/18 22:00 11/07/18 22:32 Coreg PO 12.5 mg BID RUBI Administration Darunavir 800 mg 10/30/18 18:00 11/07/18 14:27 Prezista PO Not Given QDAY RUBI Emtricitabine 200 mg 11/01/18 10:00 11/07/18 14:26 Emtriva PO Not Given Q48HR RUIB Epoetin Dany 10,000 unit 11/04/18 16:15 Procrit IV CHON PRN hemodialysis Haloperidol Lactate 5 mg 10/13/18 19:45 10/20/18 21:08 Haldol IV 5 mg Q6H PRN Administration Agitation Heparin Sodium (Porcine) 5,000 unit 11/04/18 16:15 Heparin IV CHON PRN hemodialysis Heparin Sodium (Porcine) 5,000 unit 11/07/18 22:00 11/07/18 22:27 Heparin SUB-Q 5,000 unit Q8HR RUBI Administration Hydralazine HCl 10 mg 10/12/18 15:50 10/28/18 22:36 Apresoline IV 10 mg Q4HR PRN Administration SBP>175 or DBP>115 Hydrophilic Ointment 1 applic 10/10/18 17:53 Vaseline Lip Therapy TP Q2HR PRN Dry Lips Dextrose 1,000 mls @ 42 mls/hr 11/05/18 19:00 11/07/18 01:01 D5w IV 42 mls/hr DIRECT RUBI Administration Sodium Chloride 100 mls @ 999 mls/hr 11/07/18 09:20 Nacl 0.9% IV CHON PRN Hypotension Lansoprazole 30 mg 10/15/18 10:00 11/07/18 22:27 Prevacid Solutab FEEDTUBE 30 mg BID RUBI Administration Lorazepam 1 mg 10/13/18 19:48 10/21/18 04:09 Ativan IV 1 mg Q4H PRN Administration agitation Metoprolol Tartrate 5 mg 10/18/18 14:05 Lopressor IV Q6HR PRN Tachyarrhythmias Multi-Ingred Cream/Lotion/Oil/Oint 1 applic 10/10/18 17:53 Artificial Tears Ophth Oint OU Q4HR PRN Dry Eye(s) Multivitamins 1 each 10/11/18 10:00 11/07/18 14:28 Theragran Tab PO Not Given DAILY RUBI Nystatin 100,000 unit 11/02/18 18:00 11/08/18 01:18 Nystatin PO Not Given QID RUBI Ritonavir 100 mg 10/30/18 18:00 11/07/18 14:27 Norvir PO Not Given QDAY RUBI Simple Syrup 15 ml 10/11/18 12:58 Simple Syrup FEEDTUBE PRN PRN Hypoglycemia Simple Syrup 30 ml 10/11/18 12:58 Simple Syrup FEEDTUBE PRN PRN Hypoglycemia Sodium Bicarbonate 325 mg 10/11/18 12:58 Sodium Bicarbonate FEEDTUBE PRN PRN For Clogged Feeding Tube Sodium Chloride 10 ml 10/10/18 22:00 11/07/18 22:28 Sodium Chloride Flush Syringe 10 Ml IV 10 ml BID URBI Administration Sodium Chloride 10 ml 10/10/18 18:12 Sodium Chloride Flush Syringe 10 Ml IV PRN PRN LINE FLUSH Tenofovir Disoproxil Fumarate 300 mg 10/30/18 17:45 11/07/18 18:09 Viread PO Not Given Q96H RUBI
[2018-11-08] MEDS: BROVANA NEBU IH SCH ×2 (08:14→21:35)
[2018-11-08] MEDS: DUONEB *Not for PRN Use IH SCH ×3 (08:14→21:35)
[2018-11-08 08:26] LABS: Hemoglobin 6.2 gm/dl (11.8-15.2)
[2018-11-08 08:35] LABS: Calcium 8.1 mg/dL (8.4-10.2)
[2018-11-08 08:38] LABS: Hematocrit 19.3 % (35.5-45.6)
[2018-11-08] MEDS: HEPARIN SUB-Q SCH ×3 (09:01→21:53)
--- NOTE | 2018-11-08 09:57 | Progress Note ---
Assessment and Plan Assessment: * Acute kidney injury secondary to ATN vs HIVAN * HIV/AIDS * Acute encephalopathy * Acute hypoxic respiratory failure * Hx of urinary retention * Anemia * Hypertension * Diarrhea * Hyperkalemia - resolved Plan: * Continue HD via right IJ vascath - qMWF schedule * UF as tolerated * Okay to transfuse 1 unit of blood today - defer to primary team * Abx per primary team/ID * Patient is afebrile for >48hours, blood cx are negative - permcath placement per vascular * ID recommendations reviewed - antiretroviral treatment started 10/30 * Monitor for evidence of recovery * Epogen TIW prn * Continue antiHTN medications . Subjective Date of service: 11/08/18 Principal diagnosis: anemia - HIV Interval history: No acute events overnight. Objective - Vital Signs Vital signs: Vital Signs - 12hr 11/07/18 11/07/18 11/07/18 22:00 22:13 22:27 Temperature Pulse Rate Pulse Rate [ Bilateral Throughout] Pulse Rate [ 116 H 120 H Posterior Bilateral Bases ] Respiratory 30 H Rate Respiratory Rate [Bilateral Leg] Respiratory Rate [Bilateral Throughout] Respiratory 26 H 25 H Rate [Posterior Bilateral Bases] Blood Pressure Blood Pressure [Left] O2 Sat by Pulse 100 Oximetry 11/07/18 11/07/18 11/07/18 22:29 22:32 23:33 Temperature 98.5 F 98.6 F Pulse Rate 100 H 100 H 116 H Pulse Rate [ Bilateral Throughout] Pulse Rate [ Posterior Bilateral Bases ] Respiratory 20 24 Rate Respiratory Rate [Bilateral Leg] Respiratory Rate [Bilateral Throughout] Respiratory Rate [Posterior Bilateral Bases] Blood Pressure 128/86 138/94 Blood Pressure 128/86 [Left] O2 Sat by Pulse 100 100 Oximetry 11/08/18 11/08/18 11/08/18 00:21 06:15 08:14 Temperature 98.7 F Pulse Rate 112 H Pulse Rate [ 107 H Bilateral Throughout] Pulse Rate [ Posterior Bilateral Bases ] Respiratory 22 Rate Respiratory 29 H Rate [Bilateral Leg] Respiratory 16 Rate [Bilateral Throughout] Respiratory Rate [Posterior Bilateral Bases] Blood Pressure 128/82 Blood Pressure [Left] O2 Sat by Pulse 100 100 Oximetry 11/08/18 08:22 Temperature Pulse Rate Pulse Rate [ 112 H Bilateral Throughout] Pulse Rate [ Posterior Bilateral Bases ] Respiratory Rate Respiratory Rate [Bilateral Leg] Respiratory 18 Rate [Bilateral Throughout] Respiratory Rate [Posterior Bilateral Bases] Blood Pressure Blood Pressure [Left] O2 Sat by Pulse Oximetry - General Appearance General appearance: cachectic, frail EENT: ATNC Respiratory: Present: Decreased Breath Sounds Cardiology: regular, S1S2 Gastrointestinal: normal, no tenderness, no distended Musculoskeletal: other (no edema) Psychiatric: cooperative - Lab 11/08/18 07:26 11/08/18 07:26 Most recent lab results Calcium 8.1 mg/dL (8.4-10.2) L 11/08/18 07:26 Phosphorus 8.30 mg/dL (2.5-4.5) H 10/25/18 10:00 Magnesium 3.10 mg/dL (1.7-2.3) H 10/18/18 05:03 Urine Creatinine 30.8 mg/dL (0.1-20.0) H 10/13/18 04:43 Urine Sodium 106 mmol/L 10/13/18 04:43 Urine Total Protein 75 mg/dL (5-11.8) H 10/13/18 04:43 Medications & Allergies - Medications Allergies/Adverse Reactions: Allergies Sulfa (Sulfonamide Antibiotics) Allergy (Verified 10/10/18 16:54) Unknown Home Medications: Home Medications Medication Instructions Recorded Confirmed Last Taken Type Acetaminophen [Tylenol] 1,000 mg PO Q6HR 10/10/18 10/10/18 Unknown History Amlodipine Besylate [Norvasc] 10 mg PO QDAY 10/10/18 10/10/18 Unknown History Aspirin [Adult Aspirin] 81 mg PO DAILY 10/10/18 10/10/18 Unknown History Atorvastatin [Lipitor Tab] 80 mg PO DAILY 10/10/18 10/10/18 Unknown History Losartan [Cozaar] 100 mg PO QDAY 10/10/18 10/10/18 Unknown History Multivitamin [Multiple Vitamins] 1 each PO DAILY 10/10/18 10/10/18 Unknown History hydroCHLOROthiazide [HCTZ] 25 mg PO QDAY 10/10/18 10/10/18 Unknown History Active Medications: Generic Name Dose Route Start Last Admin Trade Name Freq PRN Reason Stop Dose Admin Acetaminophen 500 mg 10/16/18 10:02 11/05/18 16:40 Tylenol PO 500 mg Q6H PRN Administration Fever >101 Albumin Human 25 gm 11/04/18 16:14 Alburx 25% (Albumin) IV CHON PRN Hypotension Albuterol 2.5 mg 10/10/18 18:12 Proventil IH Q3HRT PRN Shortness Of Breath Albuterol/Ipratropium 1 ampul 10/25/18 08:00 11/08/18 08:14 Duoneb *Not For Prn Use* IH 1 ampul TIDRT RUBI Administration Amlodipine Besylate 10 mg 10/11/18 10:00 11/07/18 13:55 Norvasc PO Not Given QDAY [facility] Lipase/Protease/Amylase 1 each 10/11/18 12:58 Pancreazkarlos Reed 10,500 Unit FEEDTUBE PRN PRN For Clogged Feeding Tube Arformoterol Tartrate 15 mcg 10/20/18 11:45 11/08/18 08:14 Brovana Jose Raulu IH 15 mcg Q12HRT RUBI Administration Atovaquone 750 mg 10/18/18 10:00 11/07/18 22:27 Mepron PO 750 mg BID [facility] Administration Carvedilol 12.5 mg 10/22/18 22:00 11/07/18 22:32 Coreg PO 12.5 mg BID [facility] Administration Darunavir 800 mg 10/30/18 18:00 11/07/18 14:27 Prezista PO Not Given QDAY [facility] Emtricitabine 200 mg 11/01/18 10:00 11/07/18 14:26 Emtriva PO Not Given Q48HR [facility] Epoetin Dany 10,000 unit 11/04/18 16:15 Procrit IV CHON PRN hemodialysis Haloperidol Lactate 5 mg 10/13/18 19:45 10/20/18 21:08 Haldol IV 5 mg Q6H PRN Administration Agitation Heparin Sodium (Porcine) 5,000 unit 11/04/18 16:15 Heparin IV CHON PRN hemodialysis Heparin Sodium (Porcine) 5,000 unit 11/07/18 22:00 11/08/18 09:01 Heparin SUB-Q Not Given Q8HR [facility] Hydralazine HCl 10 mg 10/12/18 15:50 10/28/18 22:36 Apresoline IV 10 mg Q4HR PRN Administration SBP>175 or DBP>115 Hydrophilic Ointment 1 applic 10/10/18 17:53 Vaseline Lip Therapy TP Q2HR PRN Dry Lips Dextrose 1,000 mls @ 42 mls/hr 11/05/18 19:00 11/07/18 01:01 D5w IV 42 mls/hr DIRECT RUBI Administration Sodium Chloride 100 mls @ 999 mls/hr 11/07/18 09:20 Nacl 0.9% IV CHON PRN Hypotension Sodium Chloride 500 mls @ 0 mls/hr 11/08/18 08:58 Nacl 0.9% 500 Ml IV 11/08/18 08:59 ONCE ONE As Directed Lansoprazole 30 mg 10/15/18 10:00 11/07/18 22:27 Prevacid Solutab FEEDTUBE 30 mg BID RUBI Administration Lorazepam 1 mg 10/13/18 19:48 10/21/18 04:09 Ativan IV 1 mg Q4H PRN Administration agitation Metoprolol Tartrate 5 mg 10/18/18 14:05 Lopressor IV Q6HR PRN Tachyarrhythmias Multi-Ingred Cream/Lotion/Oil/Oint 1 applic 10/10/18 17:53 Artificial Tears Ophth Oint OU Q4HR PRN Dry Eye(s) Multivitamins 1 each 10/11/18 10:00 11/07/18 14:28 Theragran Tab PO Not Given DAILY RUBI Nystatin 100,000 unit 11/02/18 18:00 11/08/18 01:18 Nystatin PO Not Given QID RUBI Ritonavir 100 mg 10/30/18 18:00 11/07/18 14:27 Norvir PO Not Given QDAY RUBI Simple Syrup 15 ml 10/11/18 12:58 Simple Syrup FEEDTUBE PRN PRN Hypoglycemia Simple Syrup 30 ml 10/11/18 12:58 Simple Syrup FEEDTUBE PRN PRN Hypoglycemia Sodium Bicarbonate 325 mg 10/11/18 12:58 Sodium Bicarbonate FEEDTUBE PRN PRN For Clogged Feeding Tube Sodium Chloride 10 ml 10/10/18 22:00 11/07/18 22:28 Sodium Chloride Flush Syringe 10 Ml IV 10 ml BID RUBI Administration Sodium Chloride 10 ml 10/10/18 18:12 Sodium Chloride Flush Syringe 10 Ml IV PRN PRN LINE FLUSH Tenofovir Disoproxil Fumarate 300 mg 10/30/18 17:45 11/07/18 18:09 Viread PO Not Given Q96H RUBI
--- NOTE | 2018-11-08 10:33 | Progress Note ---
Assessment and Plan Assessment and plan: patient is 43 YO Male with HIV, hypertension, previous stroke, Nicotine Dependence, presents to ED for evaluation. Patient was confused and lethargic and unable to provide history. He was seen and evaluated in ED and found to be in distress and unable to protect his airway and was therefore intubated, placed on ventilator in ER then admitted MR brain 10/11 1. Study somewhat degraded by motion artifact. 2 Areas of edema in the basal ganglia and thalami bilaterally, within the jamari and in the cerebral hemispheres bilaterally in the subcortical and deep white matter and in portions of the cortex. 3. Areas of encephalomalacia in the basal ganglia bilaterally with evidence of previous hemorrhage or mineral deposition. 4. Numerous small foci of acute infarct in the basal ganglia bilaterally, subinsular regions bilaterally and medial temporal lobes bilaterally and possibly in the occipital cortex bilaterally. The above findings may be secondary to an infectious or noninfectious etiology with a component of vasculopathy or vasculitis resulting in infarcts. Viral encephalopathies and lymphoma would need to be considered in this patient with history of HIV. Neuro ams acute metabolic encephalopathy improving /Acute CVA with Bilateral infarcts with edema Consulted Neurology, he was evaluated by DR. Valentine. mentation is improved, and this is likely his new baseline Dysphagia/ moderate malnutrition -MBS 10/23, recommended pureed with nectar thickened liquids, continue this diet Hematology Anemia- stable, thrombocytopenia, leukocytosis, coagulopathy; now resolved -Status post platelet (3 units) and prbc (5 units ) transfusion, the patient had only few schistocytes on smear, ADAMS13 91% activity -transfuse another unit of prbc today, plt count has recovered ID HIV/AIDS, CD4 count 3, HIV viral load 320,000 acute bacterial PNA, CMV viremia toxo neg, CSF neg Whole blood cmv PCR was positive at 1374 abx and a antiviral per ID high fever, cxr shows improvement of vasc congestion, fup blood cx, femoral vas cath removed 11/06, now has IJ vas cath -he was put back on HAART, he likely has component of IRIS causing fevers and sob -CT on 11/06 confirms patchy infiltrate IRIS vs pna, abx per ID FEN/Renal SHRUTHI- ATN, Hyperkalemia, urinary retention sp SPC on 10/12 cont HD per nephrology, no signs of renal recovery Pulm acute hypoxic resp failure on MV> 96 hours self extubated 10/16, continue supplemental oxygen CTA neg for PE on 11/06 CVS /Hypertensive urgency and acute systolic CHF He was treated with Cardene drip which was weaned off. Optimize medications for CHF on coreg, no mik due to high K, fluid removal by dialysis Skin Stage 2 sacral wound decub . The wound was measured at 5.0x4.0. Small serous sanguineous drainage noticed from the wound. no evidence of infection, cont wound care DVT ppx- heparin sq Dispo: Needs HD and home health set up before he can be dc History Interval history: Patient continues to have weakness of his voice, fevers resolved Review of systems Constitutional: ,overall malaise CVS: No chest pain, no orthopnea, no dyspnea on exertion, no pedal edema GI: No abdominal pain, no diarrhea, no vomiting, no constipation Respiratory: sob improved, no wheezing, cough improved Hospitalist Physical - Physical exam Narrative exam: General.: Appears chronically ill, weak voice HEENT: Moist mucous membranes, extraocular muscles intact, no lymphadenopathy Neck: supple Cardiac: S1-S2 heard Lungs: rales Abdomen: soft , nontender, nondistended, bowel sounds positive Extremities: no edema clubbing or cyanosis Skin: no rash or lesions Neurologic: no gross focal deficits Psych: calm, and cooperative - Constitutional Vitals: Temp Pulse Resp BP Pulse Ox 98.7 F 112 H 18 128/82 100 11/08/18 06:15 11/08/18 08:22 11/08/18 08:22 11/08/18 06:15 11/08/18 08:14 General appearance: Present: no acute distress Results - Labs CBC & Chem 7: 11/08/18 07:26 11/08/18 07:26 Labs: Laboratory Last Values WBC 9.3 K/mm3 (4.5-11.0) 11/06/18 13:18 RBC 2.97 M/mm3 (3.65-5.03) L 11/06/18 13:18 Hgb 6.2 gm/dl (11.8-15.2) L 11/08/18 07:26 Hct 19.3 % (35.5-45.6) L* D 11/08/18 07:26 MCV 91 fl (84-94) 11/06/18 13:18 MCH 29 pg (28-32) 11/06/18 13:18 MCHC 32 % (32-34) 11/06/18 13:18 RDW 20.7 % (13.2-15.2) H 11/06/18 13:18 Plt Count 212 K/mm3 (140-440) 11/08/18 07:26 Add Manual Diff Complete 11/06/18 13:18 Total Counted 100 11/06/18 13:18 Seg Neuts % (Manual) 82.0 % (40.0-70.0) H 11/06/18 13:18 Band Neutrophils % 0 % 11/06/18 13:18 Lymphocytes % (Manual) 11.0 % (13.4-35.0) L 11/06/18 13:18 Reactive Lymphs % (Man) 0 % 11/06/18 13:18 Monocytes % (Manual) 5.0 % (0.0-7.3) 11/06/18 13:18 Eosinophils % (Manual) 0 % (0.0-4.3) 11/06/18 13:18 Basophils % (Manual) 1.0 % (0.0-1.8) 11/06/18 13:18 Metamyelocytes % 1.0 % 11/06/18 13:18 Myelocytes % 0 % 11/06/18 13:18 Promyelocytes % 0 % 11/06/18 13:18 Blast Cells % 0 % 11/06/18 13:18 Nucleated RBC % 12.0 % (0.0-0.9) H 11/06/18 13:18 Seg Neutrophils # Man 7.6 K/mm3 (1.8-7.7) 11/06/18 13:18 Band Neutrophils # 0.0 K/mm3 11/06/18 13:18 Abs Lymphs (Manual) 267 cells/uL (850-3900) L 10/11/18 17:36 Lymphocytes # (Manual) 1.0 K/mm3 (1.2-5.4) L 11/06/18 13:18 Abs React Lymphs (Man) 0.0 K/mm3 11/06/18 13:18 Monocytes # (Manual) 0.5 K/mm3 (0.0-0.8) 11/06/18 13:18 Eosinophils # (Manual) 0.0 K/mm3 (0.0-0.4) 11/06/18 13:18 Basophils # (Manual) 0.1 K/mm3 (0.0-0.1) 11/06/18 13:18 Metamyelocytes # 0.1 K/mm3 11/06/18 13:18 Myelocytes # 0.0 K/mm3 11/06/18 13:18 Promyelocytes # 0.0 K/mm3 11/06/18 13:18 Blast Cells # 0.0 K/mm3 11/06/18 13:18 Pathologist Review 10/15/18 03:14 WBC Morphology Not Reportable 11/06/18 13:18 Hypersegmented Neuts Not Reportable 11/06/18 13:18 Hyposegmented Neuts Not Reportable 11/06/18 13:18 Hypogranular Neuts Not Reportable 11/06/18 13:18 Smudge Cells Not Reportable 11/06/18 13:18 Toxic Granulation Not Reportable 11/06/18 13:18 Toxic Vacuolation Not Reportable 11/06/18 13:18 Dohle Bodies Not Reportable 11/06/18 13:18 Pelger-Huet Anomaly Not Reportable 11/06/18 13:18 Kartik Rods Not Reportable 11/06/18 13:18 Platelet Estimate Consistent w auto 11/06/18 13:18 Clumped Platelets Not Reportable 11/06/18 13:18 Plt Clumps, EDTA Not Reportable 11/06/18 13:18 Large Platelets 1+ 11/06/18 13:18 Giant Platelets Not Reportable 11/06/18 13:18 Platelet Satelliting Not Reportable 11/06/18 13:18 Plt Morphology Comment Not Reportable 11/06/18 13:18 RBC Morphology Not Reportable 11/06/18 13:18 Dimorphic RBCs Not Reportable 11/06/18 13:18 Polychromasia Not Reportable 11/06/18 13:18 Hypochromasia Not Reportable 11/06/18 13:18 Poikilocytosis 1+ 11/06/18 13:18 Anisocytosis 1+ 11/06/18 13:18 Microcytosis Not Reportable 11/06/18 13:18 Macrocytosis Not Reportable 11/06/18 13:18 Spherocytes Not Reportable 11/06/18 13:18 Pappenheimer Bodies Not Reportable 11/06/18 13:18 Sickle Cells Not Reportable 11/06/18 13:18 Target Cells Not Reportable 11/06/18 13:18 Tear Drop Cells 1+ 11/06/18 13:18 Ovalocytes Few 11/06/18 13:18 Helmet Cells Not Reportable 11/06/18 13:18 Smith-Fillmore Bodies Not Reportable 11/06/18 13:18 Huxley Rings Not Reportable 11/06/18 13:18 Jani Cells Not Reportable 11/06/18 13:18 Bite Cells Not Reportable 11/06/18 13:18 Crenated Cell Not Reportable 11/06/18 13:18 Elliptocytes Not Reportable 11/06/18 13:18 Acanthocytes (Spur) Not Reportable 11/06/18 13:18 Rouleaux Not Reportable 11/06/18 13:18 Hemoglobin C Crystals Not Reportable 11/06/18 13:18 Schistocytes Not Reportable 11/06/18 13:18 Malaria parasites Not Reportable 11/06/18 13:18 Jv Bodies Not Reportable 11/06/18 13:18 Hem Pathologist Commnt No 11/06/18 13:18 PT 17.7 Sec. (12.2-14.9) H 11/06/18 13:18 INR 1.36 (0.87-1.13) H 11/06/18 13:18 APTT 30.6 Sec. (24.2-36.6) 11/06/18 13:18 Thrombin Time 16.9 Sec. (15.1-19.6) 10/10/18 15:02 Heparin Anti-Xa Level < 0.10 U.I./ml (0.3-0.7) L 11/07/18 21:31 Heparin Anti-Xa, Unfract Negative (Negative) 10/25/18 05:59 POC ABG pH 7.514 (7.35-7.45) H 11/03/18 16:12 POC ABG pCO2 32.0 (35-45) L 10/21/18 09:49 POC ABG pO2 62 (80-105) L 11/03/18 16:12 POC ABG HCO3 23.2 (22-26 mml/L) 11/03/18 16:12 POC ABG Total CO2 24 (23-27mmol/L) 11/03/18 16:12 POC ABG O2 Sat 94 11/03/18 16:12 POC ABG Base Excess 0 ((-2) - (+3)mmol/L) 11/03/18 16:12 FiO2 4 % 11/03/18 16:12 Sodium 136 mmol/L (137-145) L 11/08/18 07:26 Potassium 4.5 mmol/L (3.6-5.0) 11/08/18 07:26 Chloride 93.4 mmol/L (98-107) L 11/08/18 07:26 Carbon Dioxide 26 mmol/L (22-30) 11/08/18 07:26 Anion Gap 21 mmol/L 11/08/18 07:26 BUN 32 mg/dL (9-20) H 11/08/18 07:26 Creatinine 5.0 mg/dL (0.8-1.5) H 11/08/18 07:26 Estimated GFR 15 ml/min 11/08/18 07:26 BUN/Creatinine Ratio 6 % 11/08/18 07:26 Glucose 112 mg/dL (75-100) H 11/08/18 07:26 POC Glucose 139 (70-105) H 10/20/18 13:07 Osmolality 338 Mosm/kg 10/11/18 17:35 Lactic Acid 1.80 mmol/L (0.7-2.0) 10/12/18 05:59 Uric Acid 13.4 mg/dL (3.5-7.6) H 10/11/18 17:36 Calcium 8.1 mg/dL (8.4-10.2) L 11/08/18 07:26 Phosphorus 8.30 mg/dL (2.5-4.5) H 10/25/18 10:00 Magnesium 3.10 mg/dL (1.7-2.3) H 10/18/18 05:03 Iron 147 ug/dL (49-181) 10/11/18 17:36 TIBC 236 mcg/dL (250-450) L 10/11/18 17:36 Ferritin 20977.0 ng/mL (13.0-400.0) H 10/11/18 17:35 Total Bilirubin 0.40 mg/dL (0.1-1.2) 10/25/18 10:00 Direct Bilirubin 0.2 mg/dL (0-0.2) 10/16/18 04:07 Indirect Bilirubin 0.3 mg/dL 10/16/18 04:07 AST 46 units/L (5-40) H 10/25/18 10:00 ALT 21 units/L (7-56) 10/25/18 10:00 Alkaline Phosphatase 102 units/L (35-129) 10/25/18 10:00 Ammonia 25.0 umol/L (25-60) 10/17/18 14:59 Lactate Dehydrogenase 925 units/L (91-180) H 10/22/18 05:51 Troponin T 0.357 ng/mL (0.00-0.029) H* 11/06/18 05:54 NT-Pro-B Natriuret Pep 45603 pg/mL (0-450) H 10/10/18 15:42 Total Protein 8.1 g/dL (6.3-8.2) 10/25/18 10:00 Albumin 3.5 g/dL (3.9-5) L 10/25/18 10:00 Albumin/Globulin Ratio 0.8 % 10/25/18 10:00 Triglycerides 306 mg/dL (2-149) H 11/05/18 11:29 Cholesterol 145 mg/dL (50-199) 11/05/18 11:29 LDL Cholesterol Direct 89 mg/dL (50-130) 11/05/18 11:29 HDL Cholesterol 25 mg/dL (40-59) L 11/05/18 11:29 Cholesterol/HDL Ratio 5.80 % 11/05/18 11:29 Serotonin Release Assay See scanned result 10/25/18 05:59 Vitamin B12 912.3 pg/mL (211-911) H 10/14/18 08:51 Folate 8.32 ng/mL (7.3-26.0) 10/14/18 08:51 PTH Intact 388.7 pg/mL (15-65) H 10/25/18 10:00 Urine Creatinine 30.8 mg/dL (0.1-20.0) H 10/13/18 04:43 Urine Sodium 106 mmol/L 10/13/18 04:43 Urine Total Protein 75 mg/dL (5-11.8) H 10/13/18 04:43 CSF Appearance Clear 10/16/18 15:00 CSF Color Colorless 10/16/18 15:00 CSF WBC 4 /mm3 (1-10) 10/16/18 15:00 CSF RBC 113 /mm3 (0-0) 10/16/18 15:00 CSF Seg Neutrophils 8.0 % (0-6) 10/16/18 15:00 CSF Lymphocytes % 76.0 % (40-80) 10/16/18 15:00 CSF Reactive Lymphs 2.0 % 10/16/18 15:00 CSF Monocytes % 14.0 % (15-45) 10/16/18 15:00 CSF Eosinophils % 0 % 10/16/18 15:00 CSF Basophils 0 % 10/16/18 15:00 CSF Pathologist Review C 10/16/18 15:00 CSF Glucose 73 mg/dL 10/16/18 15:00 CSF Total Protein 55 mg/dL 10/16/18 15:00 CSF VDRL Nonreactive (Nonreactive) 10/16/18 15:00 Random Vancomycin 18.9 ug/mL (0-40.0) 10/29/18 07:13 Immunofix Electrophor see below 10/11/18 17:36 RENO Screen Negative (Negative) 10/21/18 15:07 Proteinase 3 (PR3) Ab <1.0 AI (<1.0) 10/21/18 15:07 Myeloperoxidase Ab <1.0 AI (<1.0) 10/21/18 15:07 Heparin-induced Plt Ab Negative (Negative) 10/25/18 05:59 UF Heparin High Dose 0 % Release 10/25/18 05:59 JV UFH Low Dose 0.1 0 % Release 10/25/18 05:59 VJ UFH Low Dose 0.5 14 % Release 10/25/18 05:59 Lymph Enumerat CD4/CD8 0.01 (0.86-5.00) L 10/11/18 17:36 % CD3 Cells 85 % (57-85) 10/11/18 17:36 Absolute CD3 Count 226 cells/uL (840-3060) L 10/11/18 17:36 % CD4 Cells 1 % (30-61) L 10/11/18 17:36 Absolute CD4 Count 3 cells/uL (490-1740) L 10/11/18 17:36 % CD8 Cells 82 % (12-42) H 10/11/18 17:36 Absolute CD8 Count 228 cells/uL (180-1170) 10/11/18 17:36 % CD19 Cells 6 % (6-29) 10/11/18 17:36 Absolute CD19 Count 16 cells/uL (110-660) L 10/11/18 17:36 RPR Titer 1:32 10/11/18 17:37 RPR Reactive (Nonreactive) 10/11/18 17:37 T.pallidum Ab (FTA-ABS) Reactive (Nonreactive) H 10/12/18 Unknown CMV DNA PCR log telescope maintenance/mL See scanned result 10/24/18 17:47 Hepatitis A IgM Ab Non-reactive (NonReactive) 10/11/18 17:34 Hep Bs Antigen Non-reactive (Negative) 10/11/18 17:34 Hep B Core IgM Ab Non-reactive (NonReactive) 10/11/18 17:34 Hepatitis C Antibody Non-reactive (NonReactive) 10/11/18 17:34 HIV-1 RNA PCR copies/ml 331353 Copies/mL H 10/11/18 17:36 HIV-1 RNA (PCR) log 5.51 Log cps/mL H 10/11/18 17:36 Toxoplasma IgG Ab <7.20 IU/mL (<7.20) 10/13/18 07:54 Miscellaneous Test Flexitest 1 10/31/18 06:43 Blood Type A POSITIVE 10/23/18 09:12 Antibody Screen Negative 10/23/18 09:12 Crossmatch See Detail 10/23/18 09:12 Active Medications - Current Medications Current Medications: Generic Name Dose Route Start Last Admin Trade Name Freq PRN Reason Stop Dose Admin Acetaminophen 500 mg 10/16/18 10:02 11/05/18 16:40 Tylenol PO 500 mg Q6H PRN Administration Fever >101 Albumin Human 25 gm 11/04/18 16:14 Alburx 25% (Albumin) IV CHON PRN Hypotension Albuterol 2.5 mg 10/10/18 18:12 Proventil IH Q3HRT PRN Shortness Of Breath Albuterol/Ipratropium 1 ampul 10/25/18 08:00 11/08/18 08:14 Duoneb *Not For Prn Use* IH 1 ampul TIDRT RUBI Administration Amlodipine Besylate 10 mg 10/11/18 10:00 11/07/18 13:55 Norvasc PO Not Given QDAY RUBI Lipase/Protease/Amylase 1 each 10/11/18 12:58 Pancrebecka Reed 10,500 Unit FEEDTUBE PRN PRN For Clogged Feeding Tube Arformoterol Tartrate 15 mcg 10/20/18 11:45 11/08/18 08:14 Brorussell Bluntu IH 15 mcg Q12HRT RUBI Administration Atovaquone 750 mg 10/18/18 10:00 11/07/18 22:27 Mepron PO 750 mg BID RUBI Administration Carvedilol 12.5 mg 10/22/18 22:00 11/07/18 22:32 Coreg PO 12.5 mg BID RUBI Administration Darunavir 800 mg 10/30/18 18:00 11/07/18 14:27 Prezista PO Not Given QDAY RUBI Emtricitabine 200 mg 11/01/18 10:00 11/07/18 14:26 Emtriva PO Not Given Q48HR RUBI Epoetin Dany 10,000 unit 11/04/18 16:15 Procrit IV CHON PRN hemodialysis Haloperidol Lactate 5 mg 10/13/18 19:45 10/20/18 21:08 Haldol IV 5 mg Q6H PRN Administration Agitation Heparin Sodium (Porcine) 5,000 unit 11/04/18 16:15 Heparin IV CHON PRN hemodialysis Heparin Sodium (Porcine) 5,000 unit 11/07/18 22:00 11/08/18 09:01 Heparin SUB-Q Not Given Q8HR [facility] Hydralazine HCl 10 mg 10/12/18 15:50 10/28/18 22:36 Apresoline IV 10 mg Q4HR PRN Administration SBP>175 or DBP>115 Hydrophilic Ointment 1 applic 10/10/18 17:53 Vaseline Lip Therapy TP Q2HR PRN Dry Lips Dextrose 1,000 mls @ 42 mls/hr 11/05/18 19:00 11/07/18 01:01 D5w IV 42 mls/hr DIRECT RUBI Administration Sodium Chloride 100 mls @ 999 mls/hr 11/07/18 09:20 Nacl 0.9% IV CHON PRN Hypotension Sodium Chloride 500 mls @ 0 mls/hr 11/08/18 08:58 Nacl 0.9% 500 Ml IV 11/08/18 08:59 ONCE ONE As Directed Lansoprazole 30 mg 10/15/18 10:00 11/07/18 22:27 Prevacid Solutab FEEDTUBE 30 mg BID RUBI Administration Lorazepam 1 mg 10/13/18 19:48 10/21/18 04:09 Ativan IV 1 mg Q4H PRN Administration agitation Metoprolol Tartrate 5 mg 10/18/18 14:05 Lopressor IV Q6HR PRN Tachyarrhythmias Multi-Ingred Cream/Lotion/Oil/Oint 1 applic 10/10/18 17:53 Artificial Tears Ophth Oint OU Q4HR PRN Dry Eye(s) Multivitamins 1 each 10/11/18 10:00 11/07/18 14:28 Theragran Tab PO Not Given DAILY [facility] Nystatin 100,000 unit 11/02/18 18:00 11/08/18 01:18 Nystatin PO Not Given QID [facility] Ritonavir 100 mg 10/30/18 18:00 11/07/18 14:27 Norvir PO Not Given QDAY RUBI Simple Syrup 15 ml 10/11/18 12:58 Simple Syrup FEEDTUBE PRN PRN Hypoglycemia Simple Syrup 30 ml 10/11/18 12:58 Simple Syrup FEEDTUBE PRN PRN Hypoglycemia Sodium Bicarbonate 325 mg 10/11/18 12:58 Sodium Bicarbonate FEEDTUBE PRN PRN For Clogged Feeding Tube Sodium Chloride 10 ml 10/10/18 22:00 11/07/18 22:28 Sodium Chloride Flush Syringe 10 Ml IV 10 ml BID RUBI Administration Sodium Chloride 10 ml 10/10/18 18:12 Sodium Chloride Flush Syringe 10 Ml IV PRN PRN LINE FLUSH Tenofovir Disoproxil Fumarate 300 mg 10/30/18 17:45 11/07/18 18:09 Viread PO Not Given Q96H [facility] Nutrition/Malnutrition Assess - Dietary Evaluation Nutrition/Malnutrition Findings: Nutrition Notes Start: 10/11/18 11:14 Freq: Status: Active Protocol: Document 11/06/18 14:25 TW (Rec: 11/06/18 14:31 TW [id number]) Co-Sign 11/06/18 14:25 LP Nutrition Notes Initial or Follow up Reassessment Current Diagnosis Acute Kidney Injury,CKD(stage I-IV),Hypertension,Stroke Other Pertinent Diagnosis on HD, Acute encephalopathy, HIV/AIDS, Syphilis, dysphagia Current Diet Pureed Labs/Tests Reviewed Pertinent Medications Reviewed Height 5 ft 9 in Weight 51.5 kg [place] Body Weight (kg) 72.72 BMI 16.7 Subjective/Other Information F/U for intakes. Pt not in room at time of visit. Per RN, pt has been NPO for a procedure but will get lunch when pt returns. Percent of energy/protein needs met: 0%/0% Burn Absent Trauma Absent Current % PO Negligible #1 Nutrition Diagnosis Inadequate oral intake Diagnosis Progress(for reassessment Continues documentation) Is patient on ventilator? No Is Patient Ambulatory and/or Out of Bed No REE-([facility]-confined to bed) [phone] Calculation Used for Recommendations [facility] Additional Notes Pro needs 1.2-1.5g/k-79g/ day Fluid needs 1ml/kcal Nutrition Intervention Change Diet Order: Advance diet when medically able Add Supplement/Snack (indicate name/kcal Nepro 1 daily once diet /protein ) advanced Provides kCal: 425 Provides Protein (gm) 19 Goal #1 Meet at least 75% of calorie and protein needs via PO and ONS intakes Anticipated Discharge Needs: Pureed, Renal diet Follow-Up By: 11/08/18 Additional Comments Follow for PO and ONS intakes
--- NOTE | 2018-11-08 10:44 | Progress Note ---
Assessment and Plan Cultures: Blood culture 10/10/2018 no growth. Sputum culture 10/10/2018 Ana Paula albicans. Crypto Ag 10/10/2018 neg. Urine culture 10/13/2018 no growth. Blood culture 10/17/2018 no growth. Blood culture 10/20/2018: no growth Stool Occult Blood 10/23/18: positive Blood culture 10/29/18: negative Urine culture 10/31/18: Ana Paula Blood culture 11/05/18: no growth to date Assessment: 43 y/o male with history of HIV (unknown CD4/VL/ART intake), HTN, CVA 6 months ago at [place], Nicotine Dependence, Malnutrition; admitted on 10/10/2018 due to AMS (confusion/lethargy) and slurred speech for 24 h: 1) SIRS versus sepsis: no fevers in >48 hours, s/p femoral HD cath removed 11/06/18, Right IJ VAS cath placed. Started HIV treatment on 10/30/2018. - CXR neg - BNP 70K - Troponin 0.2 - LDH 2242 2) Acute hypoxemic respiratory failure: for airway protection +/- ? pneumonia. Repeat CXR no consolidations. Ana Paula in tracha sp likely a colonizer. Extubated 10/15. Continues on atovaquone as prophylaxis. Patient has sulfa allergy. 3) Acute encephalopathy: Improved.; multifactorial ?from hypertensive urgency +/- brain opportunistic infection. DDx: Neurosyphilis, VZV/CMV encephalitis versus [employer] lymphoma versus less likely PML v/s ischemic CVA (seems more likely) - CT head showed bilateral chronic ischemic changes. - Brain MRI showed areas of edema in the basal ganglia and thalami bilaterally, within the jamrai and in the cerebral hemispheres bilaterally in the subcortical and deep white matter and in portions of the cortex, areas of encephalomalacia in the basal ganglia bilaterally with evidence of previous hemorrhage or mineral deposition and numerous small foci of acute infarct in the basal ganglia bilaterally, subinsular regions bilaterally and medial temporal lobes bilaterally and possibly in the occipital cortex bilaterally. - Brain MRA showed possible dissection versus artifact at the basilar artery. Luminal irregularity at the anterior, middle, and posterior cerebral arteries as well as the carotid siphons may represent mild to moderate atherosclerotic disease. More notable narrowing at the distal right A1 segment. Differential diagnosis includes motion artifact and vasculitis. Vertebral arteries are not clearly visualized. - CSF wbc 4, rbc 113, Seg 8%, Lymph 76%, protein 55, glucose 73 which is not c/w meningitis - RPR reactive 1:32 / FTA ABs reactive, treated with penicillin and ceftriaxone but CSF VDRL Non reactive. - Toxoplasma IgG negative, CSF Toxoplasma PCR: negative - Blood CMV DNA VL=1,370, 3.1 log on ganciclovir - likely reactivation - Repeat CMV DNA PCR 10/24/2018: <200. Off ganciclovir. - Glucan Assay: negative 4) Anemia/thrombocytopenia: improving. 5) Acute on CKD or SHRUTHI ? unclear etiology: on HD. 6) DM: uncontrolled. 7) HIV/AIDS: VL 320,000 / CD4=3 on 10/11/2018. Continue HIV therapy (started on ): renally adjusted TDF, FTC along with dolutegravir and ritonavir boosted darunavir. Follow up Genotype and if no resistance mutations, possibly d/c both TDF and FTC and continue nuc-sparing regimen of dolutegravir along with ritonavir boosted darunavir. Recommendations: -continue atovaquone 750 mg BID -continue HIV therapy: renally adjusted TDF, FTC along with dolutegravir and ritonavir boosted darunavir -follow up HIV Genotype -f/u repeat blood cultures - Anticipate discharge on Emtriva 200 mg every 48 hours, Tenofovir 300mg every 96 hours and Dolutegravir 50mg q day - Will write 30 day prescription upon discharge [facility] M: [phone] O:[phone] Subjective Date of service: 11/08/18 Principal diagnosis: anemia - HIV Interval history: Patient seen and examined. No acute distress observed. Following simple commands. Objective - Exam Narrative Exam: General appearance: Awake, Alert, No acute distress Eyes: anicteric sclerae, moist conjunctivae; no lid-lag; PERRLA HENT: Atraumatic; oropharynx limited Neck: Trachea midline; supple, no thyromegaly or lymphadenopathy Lungs: CTA, with normal respiratory effort, on CV: tachycardic Abdomen: Soft, non-tender;+SP cath : + rectal bag Extremities: No peripheral edema or extremity lymphadenopathy Skin: Normal temperature, turgor and texture; no rash, ulcers or subcutaneous nodules Psych: affect: Flat Neuro: Improved, following simple commands - Constitutional Vitals: Vital Signs Temp Pulse Resp BP Pulse Ox 98.7 F 112 H 18 128/82 100 11/08/18 06:15 11/08/18 08:22 11/08/18 08:22 11/08/18 06:15 11/08/18 08:14 Temperature -Last 24 Hours Temperature 98.7 F Temperature 98.6 F Temperature 98.5 F Temperature 97.8 F - Labs CBC & Chem 7: 11/08/18 07:26 11/08/18 07:26 Labs: Abnormal lab results 11/07/18 11/08/18 11/08/18 Range/Units 21:31 07:26 07:26 Hgb 6.2 L (11.8-15.2) gm/dl Hct 19.3 L* D (35.5-45.6) % Heparin Anti-Xa Level < 0.10 L (0.3-0.7) U.I./ml Sodium 136 L (137-145) mmol/L Chloride 93.4 L (98-107) mmol/L BUN 32 H (9-20) mg/dL Creatinine 5.0 H (0.8-1.5) mg/dL Glucose 112 H (75-100) mg/dL Calcium 8.1 L (8.4-10.2) mg/dL
[2018-11-08] MEDS: COREG PO SCH ×2 (10:52→21:53)
[2018-11-08] MEDS: NORVASC PO SCH (10:53)
[2018-11-08] MEDS: MEPRON PO SCH ×2 (10:53→21:54)
[2018-11-08] MEDS: THERAGRAN Tab PO SCH (10:54)
[2018-11-08] MEDS: SODIUM CHLORIDE FLUSH SYRINGE 10 ML IV SCH ×2 (10:54→21:54)
[2018-11-08] MEDS: TIVICAY PO SCH (10:55)
[2018-11-08] MEDS: PREZISTA PO SCH (10:56)
[2018-11-08] MEDS: PREVACID SOLUTAB FEEDTUBE SCH ×2 (10:57→21:54)
[2018-11-08] MEDS: NORVIR PO SCH (10:58)
[2018-11-08] MEDS ORDERED: NACL 0.9% 500 ML 500 ML IV NR (11:00)
[2018-11-08] MEDS: D5W 1,000 ML IV SCH (11:16)
[2018-11-08] MEDS: METAMUCIL PO SCH (18:24)
--- NOTE | 2018-11-09 05:23 | Hem/Onc Progress Note ---
Assessment and Plan 1. Anemia. At admission, hemoglobin was 8.1, later low and s/p Transfusion support. 2. Platelets at admission was 20. 3. White cell count was elevated. 4. PT/INR h/o slightly elevated. 5. Renal failure. 6. ALT elevated. 7. The patient has multiple medical issues. HIV 10/13 - plt better - s/p transfusion d/w dr rain and dr carrillo 10/14 - low plt - rasta ctive bleed suprapubic catheter 10/15 - plt were rising and again going down' pt had got plt transfusion LDH high - [id number] ordered smear - ordererd LDH may be high in other causes too - renal etc 10/16 - d/w path - not many schistocytes on smear - ADAMTS 13 ordered extubated 10/17 - plt low - path review ordered d/w armin monsalve 10/18 - path report pending plt low - but no active bleeding 10/19 - pt more alert - follows commands no bleeding 10/20 pt SOB - d/w Dr Monsalve and RN plt low - but no bleeding NGT+ more awake 10/21 - pt in [facility] plt >100 - more awake 10/22 - clinically better - moves all 4 limbs 10/23 - clinically stable - prbc suport 10/24 - as per RN -pt passed barium - for thickened diet pt has suprapubic got PRBC plt improving 10/25 - clinically better no active bleeding 10/26 - moving all extremity -communicating repeat cbc 10/27 - labs better - clinically improving 10/28 - plt now normal - hb better - s/p PRBC recent CKD may have a role 10/29 - pt clinically stable - 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 - electrolyte abn 10/30 - cbc improving - pt had question reg rectal tube - he will d/w other MDs 10/31 - plt better - hb better - OP follow up an option 11/01 - labs follow up 11/02 anemia d/w rn - rectal tube - decubiti suprapubic HD cath change planned 11/03/2018 pt getting HD rectal tube present 11/04- on o2 will follow labs gets HD 11/05 anemia slight SOB - on o2 HD cath 11/06 - d/w dr Shen reg pt anemia HD cath fever issues 11/07 CT shows pneumonia hb better 11/08 - anemia - d/w dr mcmullen - PRBC and follow 11/09 - pt less SOB s/p prbc d/w RN - Patient Problems (1) Thrombocytopenia associated with AIDS Current Visit: Yes Status: Acute (2) Anemia Current Visit: Yes Status: Acute Qualifiers: Anemia type: due to chronic kidney disease Chronic kidney disease stage: unspecified stage Qualified Code(s): N18.9 - Chronic kidney disease, unspecified; D63.1 - Anemia in chronic kidney disease Subjective Date of service: 11/09/18 Principal diagnosis: anemia - hiv Interval history: pt feeling better s/p prbc Objective - Constitutional Vitals: Last Vital Signs Temp 99.0 F 11/08/18 23:00 Pulse 82 11/08/18 21:45 Resp 20 11/08/18 23:00 BP 115/77 11/08/18 23:00 Pulse Ox 99 11/08/18 21:36 Pain Intensity (0-10): denies any pain General appearance: no acute distress Performance status: 4-completely disabled - EENT Eyes: EOM intact ENT: hearing intact Lymph node exam: negative cervical - Neck Neck: normal ROM - Respiratory Respiratory effort: Positive: normal Respiratory: bilateral: CTA (anteriorly) - Cardiovascular Heart Sounds: Present: S1 & S2 Extremities: No edema - Gastrointestinal General gastrointestinal: Present: soft, non-tender Rectal Exam: deferred, other (rectal tube) - Genitourinary Male genitourinary: Present: deferred - Integumentary Integumentary: warm - Musculoskeletal Musculoskeletal: generalized weakness - Neurologic Neurologic: moves all extremities - Labs Lab Results: Laboratory Results - last 24 hr 11/08/18 11/08/18 11/08/18 07:26 07:26 11:28 Hgb 6.2 L Hct 19.3 L* D Plt Count 212 Sodium 136 L Potassium 4.5 Chloride 93.4 L Carbon Dioxide 26 Anion Gap 21 BUN 32 H Creatinine 5.0 H Estimated GFR 15 BUN/Creatinine Ratio 6 Glucose 112 H Calcium 8.1 L Blood Type A POSITIVE Antibody Screen Negative Crossmatch See Detail Medications & Allergies - Medications Allergies/Adverse Reactions: Allergies Sulfa (Sulfonamide Antibiotics) Allergy (Verified 10/10/18 16:54) Unknown Home Medications: Home Medications Medication Instructions Recorded Confirmed Last Taken Type Acetaminophen [Tylenol] 1,000 mg PO Q6HR 10/10/18 10/10/18 Unknown History Amlodipine Besylate [Norvasc] 10 mg PO QDAY 10/10/18 10/10/18 Unknown History Aspirin [Adult Aspirin] 81 mg PO DAILY 10/10/18 10/10/18 Unknown History Atorvastatin [Lipitor Tab] 80 mg PO DAILY 10/10/18 10/10/18 Unknown History Losartan [Cozaar] 100 mg PO QDAY 10/10/18 10/10/18 Unknown History Multivitamin [Multiple Vitamins] 1 each PO DAILY 10/10/18 10/10/18 Unknown History hydroCHLOROthiazide [HCTZ] 25 mg PO QDAY 10/10/18 10/10/18 Unknown History Active Medications: Generic Name Dose Route Start Last Admin Trade Name Freq PRN Reason Stop Dose Admin Acetaminophen 500 mg 10/16/18 10:02 11/05/18 16:40 Tylenol PO 500 mg Q6H PRN Administration Fever >101 Albumin Human 25 gm 11/04/18 16:14 Alburx 25% (Albumin) IV CHON PRN Hypotension Albuterol 2.5 mg 10/10/18 18:12 Proventil IH Q3HRT PRN Shortness Of Breath Albuterol/Ipratropium 1 ampul 10/25/18 08:00 11/08/18 21:35 Duoneb *Not For Prn Use* IH 1 ampul TIDRT RUBI Administration Amlodipine Besylate 10 mg 10/11/18 10:00 11/08/18 10:53 Norvasc PO 10 mg QDAY RUBI Administration Lipase/Protease/Amylase 1 each 10/11/18 12:58 Pancrebecka Reed 10,500 Unit FEEDTUBE PRN PRN For Clogged Feeding Tube Arformoterol Tartrate 15 mcg 10/20/18 11:45 11/08/18 21:35 Brovana Nebu IH Not Given Q12HRT RUBI Atovaquone 750 mg 10/18/18 10:00 11/08/18 21:54 Mepron PO 750 mg BID RUBI Administration Carvedilol 12.5 mg 10/22/18 22:00 11/08/18 21:53 Coreg PO 12.5 mg BID RUBI Administration Darunavir 800 mg 10/30/18 18:00 11/08/18 10:56 Prezista PO 800 mg QDAY RUBI Administration Emtricitabine 200 mg 11/01/18 10:00 11/07/18 14:26 Emtriva PO Not Given Q48HR RUBI Epoetin Dany 10,000 unit 11/04/18 16:15 Procrit IV CHON PRN hemodialysis Haloperidol Lactate 5 mg 10/13/18 19:45 10/20/18 21:08 Haldol IV 5 mg Q6H PRN Administration Agitation Heparin Sodium (Porcine) 5,000 unit 11/04/18 16:15 Heparin IV CHON PRN hemodialysis Heparin Sodium (Porcine) 5,000 unit 11/07/18 22:00 11/08/18 21:53 Heparin SUB-Q 5,000 unit Q8HR RUBI Administration Hydralazine HCl 10 mg 10/12/18 15:50 10/28/18 22:36 Apresoline IV 10 mg Q4HR PRN Administration SBP>175 or DBP>115 Hydrophilic Ointment 1 applic 10/10/18 17:53 Vaseline Lip Therapy TP Q2HR PRN Dry Lips Sodium Chloride 100 mls @ 999 mls/hr 11/07/18 09:20 Nacl 0.9% IV CHON PRN Hypotension Lansoprazole 30 mg 10/15/18 10:00 11/08/18 21:54 Prevacid Solutab FEEDTUBE 30 mg BID RUBI Administration Lorazepam 1 mg 10/13/18 19:48 10/21/18 04:09 Ativan IV 1 mg Q4H PRN Administration agitation Metoprolol Tartrate 5 mg 10/18/18 14:05 Lopressor IV Q6HR PRN Tachyarrhythmias Multi-Ingred Cream/Lotion/Oil/Oint 1 applic 10/10/18 17:53 Artificial Tears Ophth Oint OU Q4HR PRN Dry Eye(s) Multivitamins 1 each 10/11/18 10:00 11/08/18 10:54 Theragran Tab PO 1 each DAILY RUBI Administration Nystatin 100,000 unit 11/02/18 18:00 11/08/18 21:56 Nystatin PO Not Given QID RUBI Psyllium Hydrophilic Mucilloid 1 each 11/08/18 18:00 11/08/18 18:24 Metamucil PO Not Given QDAY RUBI Ritonavir 100 mg 10/30/18 18:00 11/08/18 10:58 Norvir PO 100 mg QDAY RUBI Administration Simple Syrup 15 ml 10/11/18 12:58 Simple Syrup FEEDTUBE PRN PRN Hypoglycemia Simple Syrup 30 ml 10/11/18 12:58 Simple Syrup FEEDTUBE PRN PRN Hypoglycemia Sodium Bicarbonate 325 mg 10/11/18 12:58 Sodium Bicarbonate FEEDTUBE PRN PRN For Clogged Feeding Tube Sodium Chloride 10 ml 10/10/18 22:00 11/08/18 21:54 Sodium Chloride Flush Syringe 10 Ml IV 10 ml BID RUBI Administration Sodium Chloride 10 ml 10/10/18 18:12 Sodium Chloride Flush Syringe 10 Ml IV PRN PRN LINE FLUSH Tenofovir Disoproxil Fumarate 300 mg 10/30/18 17:45 11/07/18 18:09 Viread PO Not Given Q96H RUBI
[2018-11-09] MEDS: HEPARIN SUB-Q SCH ×3 (06:13→23:14)
[2018-11-09 06:39] LABS: Hemoglobin 7.6 gm/dl (11.8-15.2); Mean Corpuscular HGB Conc 33 % (32-34); Mean Corpuscular Volume 90 fl (84-94); Platelet Count 195 K/mm3 (140-440); Red Blood Count 2.57 M/mm3 (3.65-5.03); Red Cell Distribution Width 18.5 % (13.2-15.2)
[2018-11-09 07:09] LABS: Calcium 7.8 mg/dL (8.4-10.2)
[2018-11-09] MEDS: DUONEB *Not for PRN Use IH SCH ×3 (08:41→21:59)
[2018-11-09] MEDS: BROVANA NEBU IH SCH ×2 (08:41→21:59)
--- NOTE | 2018-11-09 09:08 | Progress Note ---
Assessment and Plan Cultures: Blood culture 10/10/2018 no growth. Sputum culture 10/10/2018 Ana Paula albicans. Crypto Ag 10/10/2018 neg. Urine culture 10/13/2018 no growth. Blood culture 10/17/2018 no growth. Blood culture 10/20/2018: no growth Stool Occult Blood 10/23/18: positive Blood culture 10/29/18: negative Urine culture 10/31/18: Ana Paula Blood culture 11/05/18: No growth Assessment: 43 y/o male with history of HIV (unknown CD4/VL/ART intake), HTN, CVA 6 months ago at [place], Nicotine Dependence, Malnutrition; admitted on 10/10/2018 due to AMS (confusion/lethargy) and slurred speech for 24 h: 1) SIRS versus sepsis: Resolved, still tachycardia. s/p femoral HD cath removed 11/06/18, Right IJ VAS cath placed. Started HIV treatment on 10/30/2018. - CXR neg - BNP 70K - Troponin 0.2 - LDH 2242 2) Acute hypoxemic respiratory failure: for airway protection +/- ? pneumonia. Repeat CXR no consolidations. Ana Paula in tracha sp likely a colonizer. Extubated 10/15. Continues on atovaquone as prophylaxis. Patient has sulfa allergy. 3) Acute encephalopathy: Improved.; multifactorial ?from hypertensive urgency +/- brain opportunistic infection. DDx: Neurosyphilis, VZV/CMV encephalitis versus SECTION HOUSEKEEPER lymphoma versus less likely PML v/s ischemic CVA (seems more likely) - CT head showed bilateral chronic ischemic changes. - Brain MRI showed areas of edema in the basal ganglia and thalami bilaterally, within the jamari and in the cerebral hemispheres bilaterally in the subcortical and deep white matter and in portions of the cortex, areas of encephalomalacia in the basal ganglia bilaterally with evidence of previous hemorrhage or mineral deposition and numerous small foci of acute infarct in the basal ganglia bilaterally, subinsular regions bilaterally and medial temporal lobes bilaterally and possibly in the occipital cortex bilaterally. - Brain MRA showed possible dissection versus artifact at the basilar artery. Luminal irregularity at the anterior, middle, and posterior cerebral arteries as well as the carotid siphons may represent mild to moderate atherosclerotic disease. More notable narrowing at the distal right A1 segment. Differential diagnosis includes motion artifact and vasculitis. Vertebral arteries are not clearly visualized. - CSF wbc 4, rbc 113, Seg 8%, Lymph 76%, protein 55, glucose 73 which is not c/w meningitis - RPR reactive 1:32 / FTA ABs reactive, treated with penicillin and ceftriaxone but CSF VDRL Non reactive. - Toxoplasma IgG negative, CSF Toxoplasma PCR: negative - Blood CMV DNA VL=1,370, 3.1 log on ganciclovir - likely reactivation - Repeat CMV DNA PCR 10/24/2018: <200. Off ganciclovir. - Glucan Assay: negative 4) Anemia/thrombocytopenia: improving. 5) Acute on CKD or SHRUTHI ? unclear etiology: on HD. 6) DM: uncontrolled. 7) HIV/AIDS: VL 320,000 / CD4=3 on 10/11/2018. Continue HIV therapy (started on 10/30/2018): renally adjusted TDF, FTC along with dolutegravir and ritonavir boosted darunavir. Follow up Genotype and if no resistance mutations, possibly d/c both TDF and FTC and continue nuc-sparing regimen of dolutegravir along with ritonavir boosted darunavir. Recommendations: -continue atovaquone 750 mg BID -continue HIV therapy: renally adjusted TDF, FTC along with dolutegravir and ritonavir boosted darunavir -follow up HIV Genotype - Anticipate discharge on Emtriva 200 mg every 48 hours, Tenofovir 300mg every 96 hours and Dolutegravir 50mg q day - Will write 30 day prescription upon dis charge Dr. Thompson will be specifications writer this weekend [phone], please call for questions. [facility] M: [phone] O:[phone] Subjective Date of service: 11/09/18 Principal diagnosis: anemia - HIV Interval history: Patient seen and examined. No acute distress observed. Following simple commands. Objective - Exam Narrative Exam: General appearance: Awake, Alert, No acute distress Eyes: anicteric sclerae, moist conjunctivae; no lid-lag; PERRLA HENT: Atraumatic; oropharynx limited Neck: Trachea midline; supple, no thyromegaly or lymphadenopathy Lungs: CTA, with normal respiratory effort, on CV: tachycardic Abdomen: Soft, non-tender;+SP cath : + rectal bag Extremities: No peripheral edema , + contractures bilateral lower extremities Skin: Normal temperature, turgor and texture; no rash, ulcers or subcutaneous nodules Psych: affect: Flat Neuro: Improved, following simple commands - Constitutional Vitals: Vital Signs Temp Pulse Resp BP Pulse Ox 98.3 F 110 H 20 123/84 100 11/09/18 05:00 11/09/18 05:00 11/09/18 05:00 11/09/18 05:00 11/09/18 05:00 Temperature -Last 24 Hours Temperature 98.3 F Temperature 99.0 F Temperature 99.4 F Temperature 98.5 F Temperature 98.3 F Temperature 98.5 F Temperature 98.5 F Temperature 98.7 F Temperature 98.3 F Temperature 99.1 F - Labs CBC & Chem 7: 11/09/18 06:01 11/09/18 06:01 Labs: Abnormal lab results 11/08/18 11/09/18 11/09/18 Range/Units 11:28 06:01 06:01 RBC 2.57 L (3.65-5.03) M/mm3 Hgb 7.6 L (11.8-15.2) gm/dl Hct 23.0 L (35.5-45.6) % RDW 18.5 H (13.2-15.2) % Chloride 93.5 L (98-107) mmol/L BUN 49 H (9-20) mg/dL Creatinine 7.6 H D (0.8-1.5) mg/dL Glucose 110 H (75-100) mg/dL Calcium 7.8 L (8.4-10.2) mg/dL Crossmatch See Detail
[2018-11-09 09:46] LABS: Basophils % (Manual) 0 % (0.0-1.8); Eosinophils % (Manual) 0 % (0.0-4.3); Total Cells Counted 100
[2018-11-09 09:47] LABS: Anisocytosis 1+
[2018-11-09 09:48] LABS: Giant Platelets Rare; Large Platelets Few; Ovalocytes Few; Platelet Estimate Cons; Poikilocytosis 1+; Tear Drop Cells 1+
[2018-11-09] MEDS: THERAGRAN Tab PO SCH (11:54)
[2018-11-09] MEDS: PREVACID SOLUTAB FEEDTUBE SCH ×2 (11:54→23:14)
[2018-11-09] MEDS: NORVASC PO SCH (11:54)
[2018-11-09] MEDS: TIVICAY PO SCH (11:57)
[2018-11-09] MEDS: NORVIR PO SCH (11:57)
[2018-11-09] MEDS: EMTRIVA PO SCH (11:57)
[2018-11-09] MEDS: PREZISTA PO SCH (11:57)
[2018-11-09] MEDS: MEPRON PO SCH ×2 (11:58→23:14)
[2018-11-09] MEDS: COREG PO SCH ×2 (11:58→23:13)
[2018-11-09] MEDS: METAMUCIL PO SCH (11:58)
[2018-11-09] MEDS: SODIUM CHLORIDE FLUSH SYRINGE 10 ML IV SCH ×2 (12:04→23:24)
[2018-11-09] MEDS: NYSTATIN PO SCH ×4 (14:00→23:46)
--- NOTE | 2018-11-09 16:13 | Progress Note ---
Assessment and Plan - Patient Problems (1) Acute kidney injury Current Visit: Yes Status: Acute Plan to address problem: Acute kidney injury : severe Now dialysis dependent. I reviewed renal Ultrasound with 10.1cm and 10.8cm kidneys bilateral echogenic Possible aetiologies of Acute kidney injury is likely 2/2 acute tubular injury ,possible underlying HIV associated nephropathy cannot be excluded . He is currently oliguric currently dialysis dependent. Currently has a Mahurkar We'll need tunneled dialysis catheter placement appreciate Vascular surgery assistance. Avoid Nephrotoxic medications. 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 Hb: 7.6g/dl Monitor CBC. (3) Metabolic acidosis Current Visit: Yes Status: Acute Plan to address problem: Metabolic acidosis secondary to renal failure high anion gap acidosis Will check phosphorus levels as well. We'll continue dialysis Subjective Principal diagnosis: anemia - HIV Interval history: 43 year old gentleman with medical history significant for HIV admitted with Sepsis , acute hypoxemic respiratory failure , Encephalopathy , transaminitis and worsening renal failure . Patient seen this morning answers simple questions no distress . Objective - Vital Signs Vital signs: Vital Signs - 12hr 11/09/18 11/09/18 11/09/18 05:00 08:41 08:50 Temperature 98.3 F Pulse Rate 110 H Pulse Rate [ 111 H 114 H Bilateral Throughout] Respiratory 20 Rate Respiratory 16 16 Rate [Bilateral Throughout] Blood Pressure 123/84 Blood Pressure [Left] O2 Sat by Pulse 100 97 Oximetry 11/09/18 11/09/18 11/09/18 11:54 11:55 14:03 Temperature 99.0 F Pulse Rate 118 H Pulse Rate [ 110 H Bilateral Throughout] Respiratory 22 Rate Respiratory 18 Rate [Bilateral Throughout] Blood Pressure 130/90 Blood Pressure 130/90 [Left] O2 Sat by Pulse 100 Oximetry 11/09/18 14:13 Temperature Pulse Rate Pulse Rate [ 113 H Bilateral Throughout] Respiratory Rate Respiratory 18 Rate [Bilateral Throughout] Blood Pressure Blood Pressure [Left] O2 Sat by Pulse Oximetry - General Appearance General appearance: cachectic, chronically ill, fatigue, frail EENT: PERRL, mucous membranes dry Neck: no JVD Respiratory: Present: Decreased Breath Sounds Cardiology: regular, S1S2 Gastrointestinal: normal, normoactive bowel sounds Integumentary: no rash Neurologic: no focal deficit, other (awake, answers simple questions ) Psychiatric: depressed - Lab 11/09/18 06:01 11/09/18 06:01 Most recent lab results Calcium 7.8 mg/dL (8.4-10.2) L 11/09/18 06:01 Phosphorus 8.30 mg/dL (2.5-4.5) H 10/25/18 10:00 Magnesium 3.10 mg/dL (1.7-2.3) H 10/18/18 05:03 Urine Creatinine 30.8 mg/dL (0.1-20.0) H 10/13/18 04:43 Urine Sodium 106 mmol/L 10/13/18 04:43 Urine Total Protein 75 mg/dL (5-11.8) H 10/13/18 04:43 Medications & Allergies - Medications Allergies/Adverse Reactions: Allergies Sulfa (Sulfonamide Antibiotics) Allergy (Verified 10/10/18 16:54) Unknown Home Medications: Home Medications Medication Instructions Recorded Confirmed Last Taken Type Acetaminophen [Tylenol] 1,000 mg PO Q6HR 10/10/18 10/10/18 Unknown History Amlodipine Besylate [Norvasc] 10 mg PO QDAY 10/10/18 10/10/18 Unknown History Aspirin [Adult Aspirin] 81 mg PO DAILY 10/10/18 10/10/18 Unknown History Atorvastatin [Lipitor Tab] 80 mg PO DAILY 10/10/18 10/10/18 Unknown History Losartan [Cozaar] 100 mg PO QDAY 10/10/18 10/10/18 Unknown History Multivitamin [Multiple Vitamins] 1 each PO DAILY 10/10/18 10/10/18 Unknown History hydroCHLOROthiazide [HCTZ] 25 mg PO QDAY 10/10/18 10/10/18 Unknown History Active Medications: Generic Name Dose Route Start Last Admin Trade Name Freq PRN Reason Stop Dose Admin Acetaminophen 500 mg 10/16/18 10:02 11/05/18 16:40 Tylenol PO 500 mg Q6H PRN Administration Fever >101 Albumin Human 25 gm 11/04/18 16:14 Alburx 25% (Albumin) IV CHON PRN Hypotension Albuterol 2.5 mg 10/10/18 18:12 Proventil IH Q3HRT PRN Shortness Of Breath Albuterol/Ipratropium 1 ampul 10/25/18 08:00 11/09/18 14:03 Duoneb *Not For Prn Use* IH 1 ampul TIDRT RUBI Administration Amlodipine Besylate 10 mg 10/11/18 10:00 11/09/18 11:54 Norvasc PO 10 mg QDAY RUBI Administration Lipase/Protease/Amylase 1 each 10/11/18 12:58 Pancrebecka Reed 10,500 Unit FEEDTUBE PRN PRN For Clogged Feeding Tube Arformoterol Tartrate 15 mcg 10/20/18 11:45 11/09/18 08:41 Brovana Nebu IH 15 mcg Q12HRT RUBI Administration Atovaquone 750 mg 10/18/18 10:00 11/09/18 11:58 Mepron PO 750 mg BID RUBI Administration Carvedilol 12.5 mg 10/22/18 22:00 11/09/18 11:58 Coreg PO 12.5 mg BID RUBI Administration Darunavir 800 mg 10/30/18 18:00 11/09/18 11:57 Prezista PO 800 mg QDAY RUBI Administration Emtricitabine 200 mg 11/01/18 10:00 11/09/18 11:57 Emtriva PO 200 mg Q48HR RUBI Administration Epoetin Dany 10,000 unit 11/04/18 16:15 Procrit IV CHON PRN hemodialysis Haloperidol Lactate 5 mg 10/13/18 19:45 10/20/18 21:08 Haldol IV 5 mg Q6H PRN Administration Agitation Heparin Sodium (Porcine) 5,000 unit 11/04/18 16:15 Heparin IV CHON PRN hemodialysis Heparin Sodium (Porcine) 5,000 unit 11/07/18 22:00 11/09/18 06:13 Heparin SUB-Q 5,000 unit Q8HR RUBI Administration Hydralazine HCl 10 mg 10/12/18 15:50 10/28/18 22:36 Apresoline IV 10 mg Q4HR PRN Administration SBP>175 or DBP>115 Hydrophilic Ointment 1 applic 10/10/18 17:53 Vaseline Lip Therapy TP Q2HR PRN Dry Lips Sodium Chloride 100 mls @ 999 mls/hr 11/07/18 09:20 Nacl 0.9% IV CHON PRN Hypotension Lansoprazole 30 mg 10/15/18 10:00 11/09/18 11:54 Prevacid Solutab FEEDTUBE 30 mg BID RUBI Administration Lorazepam 1 mg 10/13/18 19:48 10/21/18 04:09 Ativan IV 1 mg Q4H PRN Administration agitation Metoprolol Tartrate 5 mg 10/18/18 14:05 Lopressor IV Q6HR PRN Tachyarrhythmias Multi-Ingred Cream/Lotion/Oil/Oint 1 applic 10/10/18 17:53 Artificial Tears Ophth Oint OU Q4HR PRN Dry Eye(s) Multivitamins 1 each 10/11/18 10:00 11/09/18 11:54 Theragran Tab PO 1 each DAILY RUBI Administration Nystatin 100,000 unit 11/02/18 18:00 11/08/18 21:56 Nystatin PO Not Given QID RUBI Psyllium Hydrophilic Mucilloid 1 each 11/08/18 18:00 11/09/18 11:58 Metamucil PO 1 each QDAY RUBI Administration Ritonavir 100 mg 10/30/18 18:00 11/09/18 11:57 Norvir PO 100 mg QDAY RUBI Administration Simple Syrup 15 ml 10/11/18 12:58 Simple Syrup FEEDTUBE PRN PRN Hypoglycemia Simple Syrup 30 ml 10/11/18 12:58 Simple Syrup FEEDTUBE PRN PRN Hypoglycemia Sodium Bicarbonate 325 mg 10/11/18 12:58 Sodium Bicarbonate FEEDTUBE PRN PRN For Clogged Feeding Tube Sodium Chloride 10 ml 10/10/18 22:00 11/09/18 12:04 Sodium Chloride Flush Syringe 10 Ml IV 10 ml BID RUBI Administration Sodium Chloride 10 ml 10/10/18 18:12 Sodium Chloride Flush Syringe 10 Ml IV PRN PRN LINE FLUSH Tenofovir Disoproxil Fumarate 300 mg 10/30/18 17:45 11/07/18 18:09 Viread PO Not Given Q96H RUBI
[2018-11-10] MEDS: HEPARIN SUB-Q SCH ×3 (06:12→22:35)
[2018-11-10 08:13] LABS: Hematocrit 23.9 % (35.5-45.6); Hemoglobin 7.8 gm/dl (11.8-15.2); Mean Corpuscular HGB Conc 33 % (32-34); Mean Corpuscular Volume 90 fl (84-94); Platelet Count 202 K/mm3 (140-440); Red Blood Count 2.66 M/mm3 (3.65-5.03); Red Cell Distribution Width 18.4 % (13.2-15.2)
[2018-11-10 08:31] LABS: Calcium 8.6 mg/dL (8.4-10.2)
[2018-11-10] MEDS: BROVANA NEBU IH SCH ×2 (09:18→20:31)
[2018-11-10] MEDS: DUONEB *Not for PRN Use IH SCH ×3 (09:18→20:31)
[2018-11-10] MEDS: TIVICAY PO SCH (09:56)
[2018-11-10] MEDS: COREG PO SCH ×2 (09:56→22:33)
[2018-11-10] MEDS: PREVACID SOLUTAB FEEDTUBE SCH ×2 (09:56→22:35)
[2018-11-10] MEDS: METAMUCIL PO SCH (09:57)
[2018-11-10] MEDS: NORVASC PO SCH (09:57)
[2018-11-10] MEDS: MEPRON PO SCH ×2 (09:58→22:42)
[2018-11-10] MEDS: THERAGRAN Tab PO SCH (09:58)
[2018-11-10] MEDS: NORVIR PO SCH (09:58)
[2018-11-10] MEDS: SODIUM CHLORIDE FLUSH SYRINGE 10 ML IV SCH ×2 (09:59→22:41)
[2018-11-10] MEDS: PREZISTA PO SCH (09:59)
[2018-11-10] MEDS: NYSTATIN PO SCH ×4 (10:00→22:37)
[2018-11-10 10:55] LABS: Anisocytosis 2+; Band Neutrophils # (Manual) 0.1 K/mm3; Total Cells Counted 100
[2018-11-10 10:56] LABS: Schistocytes Rare; Stomatocytes Few; Target Cells Few
[2018-11-10 10:57] LABS: Giant Platelets Rare; Helmet Cells Rare; Large Platelets Few; Platelet Estimate Cons; Poikilocytosis 1+; Tear Drop Cells 1+
--- NOTE | 2018-11-10 14:40 | Progress Note ---
Assessment and Plan - Patient Problems (1) Acute kidney injury Current Visit: Yes Status: Acute Plan to address problem: Acute kidney injury : severe Now dialysis dependent. I reviewed renal Ultrasound with 10.1cm and 10.8cm kidneys bilateral echogenic Possible aetiologies of Acute kidney injury is likely 2/2 acute tubular injury ,possible underlying HIV associated nephropathy cannot be excluded . He is currently oliguric currently dialysis dependent. Currently has a Mahurkar We'll need tunneled dialysis catheter placement appreciate Vascular surgery assistance. Avoid Nephrotoxic medications. 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 Hb: 7.6g/dl Monitor CBC. (3) Hyponatremia Current Visit: Yes Status: Acute Plan to address problem: Hyponatremia - 2/2 renal failure - ultrafiltration with HD sessions - Monitor BMP. (4) HIV (human immunodeficiency virus infection) Current Visit: Yes Status: Acute Qualifiers: HIV symptom status: symptomatic Qualified Code(s): B20 - Human immunodeficiency virus [HIV] disease Plan to address problem: HIV/ AIDS - has been treated for infection - infectious disease on board . Subjective Principal diagnosis: anemia - hiv Interval history: 43 year old gentleman with medical history significant for HIV admitted with Sepsis , acute hypoxemic respiratory failure , Encephalopathy , transaminitis and worsening renal failure . Patient seen this morning Tolerated HD well No peripheral edema. denies any shortness of breath. . Objective - Vital Signs Vital signs: Vital Signs - 12hr 11/10/18 11/10/18 11/10/18 05:37 09:18 09:20 Temperature 99.2 F Pulse Rate 114 H Pulse Rate [ 110 H Bilateral Throughout] Respiratory 18 Rate Respiratory 18 Rate [Bilateral Throughout] Blood Pressure 111/76 O2 Sat by Pulse 100 99 Oximetry 11/10/18 11/10/18 11/10/18 09:35 12:59 13:44 Temperature 97.6 F Pulse Rate 110 H Pulse Rate [ 112 H 109 H Bilateral Throughout] Respiratory 24 Rate Respiratory 18 18 Rate [Bilateral Throughout] Blood Pressure 121/78 O2 Sat by Pulse 100 Oximetry 11/10/18 13:55 Temperature Pulse Rate Pulse Rate [ 110 H Bilateral Throughout] Respiratory Rate Respiratory 20 Rate [Bilateral Throughout] Blood Pressure O2 Sat by Pulse Oximetry - General Appearance General appearance: cachectic, chronically ill, frail EENT: ATNC, PERRL Neck: no JVD Respiratory: Present: Decreased Breath Sounds Cardiology: regular, S1S2 Gastrointestinal: normal, normoactive bowel sounds Integumentary: no rash Neurologic: alert and oriented x3, CN 3-12 intact Psychiatric: depressed - Lab 11/10/18 06:54 11/10/18 06:54 Most recent lab results Calcium 8.6 mg/dL (8.4-10.2) 11/10/18 06:54 Phosphorus 8.30 mg/dL (2.5-4.5) H 10/25/18 10:00 Magnesium 3.10 mg/dL (1.7-2.3) H 10/18/18 05:03 Urine Creatinine 30.8 mg/dL (0.1-20.0) H 10/13/18 04:43 Urine Sodium 106 mmol/L 10/13/18 04:43 Urine Total Protein 75 mg/dL (5-11.8) H 10/13/18 04:43 Medications & Allergies - Medications Allergies/Adverse Reactions: Allergies Sulfa (Sulfonamide Antibiotics) Allergy (Verified 10/10/18 16:54) Unknown Home Medications: Home Medications Medication Instructions Recorded Confirmed Last Taken Type Acetaminophen [Tylenol] 1,000 mg PO Q6HR 10/10/18 10/10/18 Unknown History Amlodipine Besylate [Norvasc] 10 mg PO QDAY 10/10/18 10/10/18 Unknown History Aspirin [Adult Aspirin] 81 mg PO DAILY 10/10/18 10/10/18 Unknown History Atorvastatin [Lipitor Tab] 80 mg PO DAILY 10/10/18 10/10/18 Unknown History Losartan [Cozaar] 100 mg PO QDAY 10/10/18 10/10/18 Unknown History Multivitamin [Multiple Vitamins] 1 each PO DAILY 10/10/18 10/10/18 Unknown History hydroCHLOROthiazide [HCTZ] 25 mg PO QDAY 10/10/18 10/10/18 Unknown History Active Medications: Generic Name Dose Route Start Last Admin Trade Name Freq PRN Reason Stop Dose Admin Acetaminophen 500 mg 10/16/18 10:02 11/05/18 16:40 Tylenol PO 500 mg Q6H PRN Administration Fever >101 Albumin Human 25 gm 11/04/18 16:14 Alburx 25% (Albumin) IV CHON PRN Hypotension Albuterol 2.5 mg 10/10/18 18:12 Proventil IH Q3HRT PRN Shortness Of Breath Albuterol/Ipratropium 1 ampul 10/25/18 08:00 11/10/18 13:44 Duoneb *Not For Prn Use* IH 1 ampul TIDRT RUBI Administration Amlodipine Besylate 10 mg 10/11/18 10:00 11/10/18 09:57 Norvasc PO 10 mg QDAY RUBI Administration Lipase/Protease/Amylase 1 each 10/11/18 12:58 Pancrebecka Reed 10,500 Unit FEEDTUBE PRN PRN For Clogged Feeding Tube Arformoterol Tartrate 15 mcg 10/20/18 11:45 11/10/18 09:18 Brovana Nebu IH 15 mcg Q12HRT RUBI Administration Atovaquone 750 mg 10/18/18 10:00 11/10/18 09:58 Mepron PO 750 mg BID RUBI Administration Carvedilol 12.5 mg 10/22/18 22:00 11/10/18 09:56 Coreg PO 12.5 mg BID RUBI Administration Darunavir 800 mg 10/30/18 18:00 11/10/18 09:59 Prezista PO 800 mg QDAY RUBI Administration Emtricitabine 200 mg 11/01/18 10:00 11/09/18 11:57 Emtriva PO 200 mg Q48HR RUBI Administration Epoetin Dany 10,000 unit 11/04/18 16:15 11/09/18 20:00 Procrit IV 10,000 unit CHON PRN Administration hemodialysis Haloperidol Lactate 5 mg 10/13/18 19:45 10/20/18 21:08 Haldol IV 5 mg Q6H PRN Administration Agitation Heparin Sodium (Porcine) 5,000 unit 11/04/18 16:15 Heparin IV CHON PRN hemodialysis Heparin Sodium (Porcine) 5,000 unit 11/07/18 22:00 11/10/18 13:29 Heparin SUB-Q 5,000 unit Q8HR RUBI Administration Hydralazine HCl 10 mg 10/12/18 15:50 10/28/18 22:36 Apresoline IV 10 mg Q4HR PRN Administration SBP>175 or DBP>115 Hydrophilic Ointment 1 applic 10/10/18 17:53 Vaseline Lip Therapy TP Q2HR PRN Dry Lips Sodium Chloride 100 mls @ 999 mls/hr 11/07/18 09:20 Nacl 0.9% IV CHON PRN Hypotension Lansoprazole 30 mg 10/15/18 10:00 11/10/18 09:56 Prevacid Solutab FEEDTUBE 30 mg BID RUBI Administration Lorazepam 1 mg 10/13/18 19:48 10/21/18 04:09 Ativan IV 1 mg Q4H PRN Administration agitation Metoprolol Tartrate 5 mg 10/18/18 14:05 Lopressor IV Q6HR PRN Tachyarrhythmias Multi-Ingred Cream/Lotion/Oil/Oint 1 applic 10/10/18 17:53 Artificial Tears Ophth Oint OU Q4HR PRN Dry Eye(s) Multivitamins 1 each 10/11/18 10:00 11/10/18 09:58 Theragran Tab PO 1 each DAILY RUBI Administration Nystatin 100,000 unit 11/02/18 18:00 11/10/18 13:29 Nystatin PO 100,000 unit QID RUBI Administration Psyllium Hydrophilic Mucilloid 1 each 11/08/18 18:00 11/10/18 09:57 Metamucil PO 1 each QDAY RUBI Administration Ritonavir 100 mg 10/30/18 18:00 11/10/18 09:58 Norvir PO 100 mg QDAY RUBI Administration Simple Syrup 15 ml 10/11/18 12:58 Simple Syrup FEEDTUBE PRN PRN Hypoglycemia Simple Syrup 30 ml 10/11/18 12:58 Simple Syrup FEEDTUBE PRN PRN Hypoglycemia Sodium Bicarbonate 325 mg 10/11/18 12:58 Sodium Bicarbonate FEEDTUBE PRN PRN For Clogged Feeding Tube Sodium Chloride 10 ml 10/10/18 22:00 11/10/18 09:59 Sodium Chloride Flush Syringe 10 Ml IV 10 ml BID RUBI Administration Sodium Chloride 10 ml 10/10/18 18:12 Sodium Chloride Flush Syringe 10 Ml IV PRN PRN LINE FLUSH Tenofovir Disoproxil Fumarate 300 mg 10/30/18 17:45 11/07/18 18:09 Viread PO Not Given Q96H RUBI
--- NOTE | 2018-11-10 19:03 | Hem/Onc Progress Note ---
Assessment and Plan 1. Anemia. At admission, hemoglobin was 8.1, later low and s/p Transfusion support. 2. Platelets at admission was 20. 3. White cell count was elevated. 4. PT/INR h/o slightly elevated. 5. Renal failure. 6. ALT elevated. 7. The patient has multiple medical issues. HIV 10/13 - plt better - s/p transfusion d/w dr rain and dr carrillo 10/14 - low plt - rasta ctive bleed suprapubic catheter 10/15 - plt were rising and again going down' pt had got plt transfusion LDH high - [id number] ordered smear - ordererd LDH may be high in other causes too - renal etc 10/16 - d/w path - not many schistocytes on smear - ADAMTS 13 ordered extubated 10/17 - plt low - path review ordered d/w armin monsalve 10/18 - path report pending plt low - but no active bleeding 10/19 - pt more alert - follows commands no bleeding 10/20 pt SOB - d/w Dr Monsalve and RN plt low - but no bleeding NGT+ more awake 10/21 - pt in IMC plt >100 - more awake 10/22 - clinically better - moves all 4 limbs 10/23 - clinically stable - prbc suport 10/24 - as per RN -pt passed barium - for thickened diet pt has suprapubic got PRBC plt improving 10/25 - clinically better no active bleeding 10/26 - moving all extremity -communicating repeat cbc 10/27 - labs better - clinically improving 10/28 - plt now normal - hb better - s/p PRBC recent CKD may have a role 10/29 - pt clinically stable - public relations director abn - electrolyte abn 10/30 - cbc improving - pt had question reg rectal tube - he will d/w other MDs 10/31 - plt better - hb better - OP follow up an option 11/01 - labs follow up 11/02 anemia d/w rn - rectal tube - decubiti suprapubic HD cath change planned 11/03/2018 pt getting HD rectal tube present 11/04- on o2 will follow labs gets HD 11/05 anemia slight SOB - on o2 HD cath 11/06 - d/w dr Shen reg pt anemia HD cath fever issues 11/07 CT shows pneumonia hb better 11/08 - anemia - d/w dr mcmullen - PRBC and follow 11/09 - pt less SOB s/p prbc d/w RN 11/10 hb better still has rectal tube - Patient Problems (1) Thrombocytopenia associated with AIDS Current Visit: Yes Status: Acute (2) Anemia Current Visit: Yes Status: Acute Qualifiers: Anemia type: due to chronic kidney disease Chronic kidney disease stage: unspecified stage Qualified Code(s): N18.9 - Chronic kidney disease, unspecified; D63.1 - Anemia in chronic kidney disease Subjective Date of service: 11/10/18 Principal diagnosis: anemia - HIV Objective - Constitutional Vitals: Last Vital Signs Temp 98.9 F 11/10/18 18:01 Pulse 113 H 11/10/18 18:01 Resp 18 11/10/18 18:01 BP 119/72 11/10/18 18:01 Pulse Ox 100 11/10/18 18:01 Pain Intensity (0-10): denies any pain General appearance: no acute distress Performance status: 4-completely disabled - EENT Eyes: EOM intact ENT: clear oral mucosa Lymph node exam: negative cervical - Neck Neck: normal ROM - Respiratory Respiratory effort: Positive: normal Respiratory: bilateral: CTA - Cardiovascular Heart Sounds: Present: S1 & S2 Extremities: No edema - Gastrointestinal General gastrointestinal: Present: soft, non-tender Rectal Exam: deferred - Genitourinary Male genitourinary: Present: deferred - Integumentary Integumentary: warm - Musculoskeletal Musculoskeletal: generalized weakness - Neurologic Neurologic: moves all extremities - Labs Lab Results: Laboratory Results - last 24 hr 11/10/18 11/10/18 06:54 06:54 WBC 11.0 RBC 2.66 L Hgb 7.8 L Hct 23.9 L MCV 90 MCH 29 MCHC 33 RDW 18.4 H Plt Count 202 Add Manual Diff Complete Total Counted 100 Seg Neuts % (Manual) 81.0 H Band Neutrophils % 1.0 Lymphocytes % (Manual) 6.0 L Reactive Lymphs % (Man) 0 Monocytes % (Manual) 9.0 H Eosinophils % (Manual) 2.0 Basophils % (Manual) 1.0 Metamyelocytes % 0 Myelocytes % 0 Promyelocytes % 0 Blast Cells % 0 Nucleated RBC % 6.0 H Seg Neutrophils # Man 8.9 H Band Neutrophils # 0.1 Lymphocytes # (Manual) 0.7 L Abs React Lymphs (Man) 0.0 Monocytes # (Manual) 1.0 H Eosinophils # (Manual) 0.2 Basophils # (Manual) 0.1 Metamyelocytes # 0.0 Myelocytes # 0.0 Promyelocytes # 0.0 Blast Cells # 0.0 WBC Morphology Not Reportable Hypersegmented Neuts Not Reportable Hyposegmented Neuts Not Reportable Hypogranular Neuts Not Reportable Smudge Cells Not Reportable Toxic Granulation Not Reportable Toxic Vacuolation Not Reportable Dohle Bodies Not Reportable Pelger-Huet Anomaly Not Reportable Kartik Rods Not Reportable Platelet Estimate Cons Clumped Platelets Not Reportable Plt Clumps, EDTA Not Reportable Large Platelets Few Giant Platelets Rare Platelet Satelliting Not Reportable Plt Morphology Comment Not Reportable RBC Morphology Not Reportable Dimorphic RBCs Not Reportable Polychromasia Not Reportable Hypochromasia Not Reportable Poikilocytosis 1+ Anisocytosis 2+ Microcytosis 1+ Macrocytosis Not Reportable Spherocytes Not Reportable Pappenheimer Bodies Not Reportable Sickle Cells Not Reportable Target Cells Few Tear Drop Cells 1+ Ovalocytes Not Reportable Stomatocytes Few Helmet Cells Rare Smith-[place] Bodies Not Reportable Alicia Rings Not Reportable Grinnell Cells Not Reportable Bite Cells Not Reportable Crenated Cell Not Reportable Elliptocytes Not Reportable Acanthocytes (Spur) Not Reportable Rouleaux Not Reportable Hemoglobin C Crystals Not Reportable Schistocytes Rare Malaria parasites Not Reportable Jv Bodies Not Reportable Hem Pathologist Commnt No Sodium 135 L Potassium 3.8 D Chloride 93.9 L Carbon Dioxide 25 Anion Gap 20 BUN 21 H Creatinine 4.8 H Estimated GFR 16 BUN/Creatinine Ratio 4 Glucose 114 H Calcium 8.6 Medications & Allergies - Medications Allergies/Adverse Reactions: Allergies Sulfa (Sulfonamide Antibiotics) Allergy (Verified 10/10/18 16:54) Unknown Home Medications: Home Medications Medication Instructions Recorded Confirmed Last Taken Type Acetaminophen [Tylenol] 1,000 mg PO Q6HR 10/10/18 10/10/18 Unknown History Amlodipine Besylate [Norvasc] 10 mg PO QDAY 10/10/18 10/10/18 Unknown History Aspirin [Adult Aspirin] 81 mg PO DAILY 10/10/18 10/10/18 Unknown History Atorvastatin [Lipitor Tab] 80 mg PO DAILY 10/10/18 10/10/18 Unknown History Losartan [Cozaar] 100 mg PO QDAY 10/10/18 10/10/18 Unknown History Multivitamin [Multiple Vitamins] 1 each PO DAILY 10/10/18 10/10/18 Unknown History hydroCHLOROthiazide [HCTZ] 25 mg PO QDAY 10/10/18 10/10/18 Unknown History Active Medications: Generic Name Dose Route Start Last Admin Trade Name Freq PRN Reason Stop Dose Admin Acetaminophen 500 mg 10/16/18 10:02 11/05/18 16:40 Tylenol PO 500 mg Q6H PRN Administration Fever >101 Albumin Human 25 gm 11/04/18 16:14 Alburx 25% (Albumin) IV CHON PRN Hypotension Albuterol 2.5 mg 10/10/18 18:12 Proventil IH Q3HRT PRN Shortness Of Breath Albuterol/Ipratropium 1 ampul 10/25/18 08:00 11/10/18 13:44 Duoneb *Not For Prn Use* IH 1 ampul TIDRT RUBI Administration Amlodipine Besylate 10 mg 10/11/18 10:00 11/10/18 09:57 Norvasc PO 10 mg QDAY RUBI Administration Lipase/Protease/Amylase 1 each 10/11/18 12:58 Pancrebecka Reed 10,500 Unit FEEDTUBE PRN PRN For Clogged Feeding Tube Arformoterol Tartrate 15 mcg 10/20/18 11:45 11/10/18 09:18 Brovana Nebu IH 15 mcg Q12HRT RUBI Administration Atovaquone 750 mg 10/18/18 10:00 11/10/18 09:58 Mepron PO 750 mg BID RUBI Administration Carvedilol 12.5 mg 10/22/18 22:00 11/10/18 09:56 Coreg PO 12.5 mg BID RUBI Administration Darunavir 800 mg 10/30/18 18:00 11/10/18 09:59 Prezista PO 800 mg QDAY RUBI Administration Emtricitabine 200 mg 11/01/18 10:00 11/09/18 11:57 Emtriva PO 200 mg Q48HR RUBI Administration Epoetin Dany 10,000 unit 11/04/18 16:15 11/09/18 20:00 Procrit IV 10,000 unit CHON PRN Administration hemodialysis Haloperidol Lactate 5 mg 10/13/18 19:45 10/20/18 21:08 Haldol IV 5 mg Q6H PRN Administration Agitation Heparin Sodium (Porcine) 5,000 unit 11/04/18 16:15 Heparin IV CHON PRN hemodialysis Heparin Sodium (Porcine) 5,000 unit 11/07/18 22:00 11/10/18 13:29 Heparin SUB-Q 5,000 unit Q8HR RUBI Administration Hydralazine HCl 10 mg 10/12/18 15:50 10/28/18 22:36 Apresoline IV 10 mg Q4HR PRN Administration SBP>175 or DBP>115 Hydrophilic Ointment 1 applic 10/10/18 17:53 Vaseline Lip Therapy TP Q2HR PRN Dry Lips Sodium Chloride 100 mls @ 999 mls/hr 11/07/18 09:20 Nacl 0.9% IV CHON PRN Hypotension Lansoprazole 30 mg 10/15/18 10:00 11/10/18 09:56 Prevacid Solutab FEEDTUBE 30 mg BID RUBI Administration Lorazepam 1 mg 10/13/18 19:48 10/21/18 04:09 Ativan IV 1 mg Q4H PRN Administration agitation Metoprolol Tartrate 5 mg 10/18/18 14:05 Lopressor IV Q6HR PRN Tachyarrhythmias Multi-Ingred Cream/Lotion/Oil/Oint 1 applic 10/10/18 17:53 Artificial Tears Ophth Oint OU Q4HR PRN Dry Eye(s) Multivitamins 1 each 10/11/18 10:00 11/10/18 09:58 Theragran Tab PO 1 each DAILY RUBI Administration Nystatin 100,000 unit 11/02/18 18:00 11/10/18 17:17 Nystatin PO 100,000 unit QID RUBI Administration Psyllium Hydrophilic Mucilloid 1 each 11/08/18 18:00 11/10/18 09:57 Metamucil PO 1 each QDAY RUBI Administration Ritonavir 100 mg 10/30/18 18:00 11/10/18 09:58 Norvir PO 100 mg QDAY RUBI Administration Simple Syrup 15 ml 10/11/18 12:58 Simple Syrup FEEDTUBE PRN PRN Hypoglycemia Simple Syrup 30 ml 10/11/18 12:58 Simple Syrup FEEDTUBE PRN PRN Hypoglycemia Sodium Bicarbonate 325 mg 10/11/18 12:58 Sodium Bicarbonate FEEDTUBE PRN PRN For Clogged Feeding Tube Sodium Chloride 10 ml 10/10/18 22:00 11/10/18 09:59 Sodium Chloride Flush Syringe 10 Ml IV 10 ml BID RUBI Administration Sodium Chloride 10 ml 10/10/18 18:12 Sodium Chloride Flush Syringe 10 Ml IV PRN PRN LINE FLUSH Tenofovir Disoproxil Fumarate 300 mg 10/30/18 17:45 11/07/18 18:09 Viread PO Not Given Q96H RUBI
--- NOTE | 2018-11-10 22:51 | Progress Note ---
Assessment and Plan patient is 43 YO Male with HIV, hypertension, previous stroke, Nicotine Dependence, presents to ED for evaluation. Patient was confused and lethargic and unable to provide history. He was seen and evaluated in ED and found to be in distress and unable to protect his airway and was therefore intubated, placed on ventilator in ER then admitted MR brain 10/11 1. Study somewhat degraded by motion artifact. 2 Areas of edema in the basal ganglia and thalami bilaterally, within the jamari and in the cerebral hemispheres bilaterally in the subcortical and deep white matter and in portions of the cortex. 3. Areas of encephalomalacia in the basal ganglia bilaterally with evidence of previous hemorrhage or mineral deposition. 4. Numerous small foci of acute infarct in the basal ganglia bilaterally, subinsular regions bilaterally and medial temporal lobes bilaterally and possibly in the occipital cortex bilaterally. The above findings may be secondary to an infectious or noninfectious etiology with a component of vasculopathy or vasculitis resulting in infarcts. Viral encephalopathies and lymphoma would need to be considered in this patient with history of HIV. Neuro ams acute metabolic encephalopathy improving /Acute CVA with Bilateral infarcts with edema Consulted Neurology, he was evaluated by DR. Valentine. mentation is improved, and this is likely his new baseline Dysphagia/ moderate malnutrition -MBS 10/23, recommended pureed with nectar thickened liquids, continue this diet Hematology Anemia- stable, thrombocytopenia, leukocytosis, coagulopathy; now resolved -Status post platelet (3 units) and prbc (5 units ) transfusion, the patient had only few schistocytes on smear, ADAMS13 91% activity -transfuse another unit of prbc today, plt count has recovered ID HIV/AIDS, CD4 count 3, HIV viral load 320,000 acute bacterial PNA, CMV viremia toxo neg, CSF neg Whole blood cmv PCR was positive at 1374 abx and a antiviral per ID high fever, cxr shows improvement of vasc congestion, fup blood cx, femoral vas cath removed 11/06, now has IJ vas cath -he was put back on HAART, he likely has component of IRIS causing fevers and sob -CT on 11/06 confirms patchy infiltrate IRIS vs pna, abx per ID FEN/Renal SHRUTHI- ATN, Hyperkalemia, urinary retention sp SPC on 10/12 cont HD per nephrology, no signs of renal recovery Pulm acute hypoxic resp failure on MV> 96 hours self extubated 10/16, continue supplemental oxygen CTA neg for PE on 11/06 CVS /Hypertensive urgency and acute systolic CHF He was treated with Cardene drip which was weaned off. Optimize medications for CHF on coreg, no mik due to high K, fluid removal by dialysis Skin Stage 2 sacral wound decub . The wound was measured at 5.0x4.0. Small serous sanguineous drainage noticed from the wound. no evidence of infection, cont wound care DVT ppx- heparin sq Dispo: Needs HD and home health set up so as to be dc Subjective Date of service: 11/10/18 Principal diagnosis: anemia - HIV Interval history: No new complaints. lying quietly in bed. Remains afebrile Objective - Exam Narrative Exam: Constitutional: Well-nourished well-developed. In no distress Head: Normocephalic atraumatic Eyes: Pupils are equal round and reactive to light Nose: No enlarged turbinates, no septal deviation. Mouth: Moist mucous membranes. Neck: Supple no thyromegaly. No bruit. No JVD Heart: Regular rate and rhythm, S1-S2 normal. No rubs murmurs or gallop Lungs: Clear to auscultation bilaterally. no rales or rhonchi Abdomen: Soft, nontender. Bowel sound are present. Extremities: No edema, no cyanosis, no clubbing. Neuro: Alert oriented Oriented x3. No focal sensory or motor deficit. Skin: No rashes or hyperpigmented spots Musculoskeletal system: No joint pain or swelling Hematological: No petechia or subcutanous hemorrhages. Immunological: No multiple septic spots on the skin Lymphatic: No generalized lymphadenopathy Psychiatry: Euthymic. Calm. - Constitutional Vitals: Vital Signs - 12hr 11/10/18 11/10/18 11/10/18 12:59 13:44 13:55 Temperature 97.6 F Pulse Rate 110 H Pulse Rate [ 109 H 110 H Bilateral Throughout] Respiratory 24 Rate Respiratory 18 20 Rate [Bilateral Throughout] Blood Pressure 121/78 O2 Sat by Pulse 100 Oximetry 11/10/18 11/10/18 11/10/18 18:01 20:33 20:34 Temperature 98.9 F Pulse Rate 113 H Pulse Rate [ 115 H Bilateral Throughout] Respiratory 18 Rate Respiratory 17 Rate [Bilateral Throughout] Blood Pressure 119/72 O2 Sat by Pulse 100 100 Oximetry 11/10/18 22:33 Temperature Pulse Rate 115 H Pulse Rate [ Bilateral Throughout] Respiratory Rate Respiratory Rate [Bilateral Throughout] Blood Pressure 122/74 O2 Sat by Pulse Oximetry - Labs CBC & Chem 7: 11/10/18 06:54 11/10/18 06:54 Labs: Abnormal lab results 11/10/18 11/10/18 Range/Units 06:54 06:54 RBC 2.66 L (3.65-5.03) M/mm3 Hgb 7.8 L (11.8-15.2) gm/dl Hct 23.9 L (35.5-45.6) % RDW 18.4 H (13.2-15.2) % Seg Neuts % (Manual) 81.0 H (40.0-70.0) % Lymphocytes % (Manual) 6.0 L (13.4-35.0) % Monocytes % (Manual) 9.0 H (0.0-7.3) % Nucleated RBC % 6.0 H (0.0-0.9) % Seg Neutrophils # Man 8.9 H (1.8-7.7) K/mm3 Lymphocytes # (Manual) 0.7 L (1.2-5.4) K/mm3 Monocytes # (Manual) 1.0 H (0.0-0.8) K/mm3 Sodium 135 L (137-145) mmol/L Chloride 93.9 L (98-107) mmol/L BUN 21 H (9-20) mg/dL Creatinine 4.8 H (0.8-1.5) mg/dL Glucose 114 H (75-100) mg/dL
[2018-11-11] MEDS: HEPARIN SUB-Q SCH ×3 (06:52→22:50)
[2018-11-11] MEDS: DUONEB *Not for PRN Use IH SCH ×3 (07:30→20:37)
[2018-11-11] MEDS: BROVANA NEBU IH SCH (07:30)
[2018-11-11 08:04] LABS: Calcium 8.9 mg/dL (8.4-10.2)
[2018-11-11 08:19] LABS: Hemoglobin 7.7 gm/dl (11.8-15.2); Red Blood Count 2.62 M/mm3 (3.65-5.03)
[2018-11-11 08:20] LABS: Hematocrit 23.4 % (35.5-45.6); Mean Corpuscular HGB Conc 33 % (32-34); Mean Corpuscular Volume 89 fl (84-94); Platelet Count 234 K/mm3 (140-440); Red Cell Distribution Width 18.4 % (13.2-15.2)
[2018-11-11 08:21] LABS: Basophils % (Auto) 1.1 % (0.0-1.8); Eosinophils % (Auto) 1.1 % (0.0-4.3); Lymphocytes # (Auto) 0.8 K/mm3 (1.2-5.4); Lymphocytes % (Auto) 7.1 % (13.4-35.0); Monocytes # (Auto) 1.6 K/mm3 (0.0-0.8); Monocytes % (Auto) 14.5 % (0.0-7.3)
[2018-11-11 08:22] LABS: Basophils # (Auto) 0.1 K/mm3 (0.0-0.1); Eosinophils # (Auto) 0.1 K/mm3 (0.0-0.4)
[2018-11-11] MEDS: MEPRON PO SCH ×2 (11:44→22:51)
[2018-11-11] MEDS: NYSTATIN PO SCH ×4 (11:44→22:51)
[2018-11-11] MEDS: PREZISTA PO SCH (11:44)
[2018-11-11] MEDS: METAMUCIL PO SCH (11:45)
[2018-11-11] MEDS: EMTRIVA PO SCH (11:45)
[2018-11-11] MEDS: TIVICAY PO SCH (11:45)
[2018-11-11] MEDS: PREVACID SOLUTAB FEEDTUBE SCH ×2 (11:45→22:51)
[2018-11-11] MEDS: NORVIR PO SCH (11:46)
[2018-11-11] MEDS: THERAGRAN Tab PO SCH (11:46)
[2018-11-11] MEDS: SODIUM CHLORIDE FLUSH SYRINGE 10 ML IV SCH ×2 (11:46→22:58)
[2018-11-11] MEDS: COREG PO SCH ×2 (12:00→22:51)
[2018-11-11] MEDS: NORVASC PO SCH (12:00)
--- NOTE | 2018-11-11 13:13 | Progress Note ---
Assessment and Plan patient is 43 YO Male with HIV, hypertension, previous stroke, Nicotine Dependence, presents to ED for evaluation. Patient was confused and lethargic and unable to provide history. He was seen and evaluated in ED and found to be in distress and unable to protect his airway and was therefore intubated, placed on ventilator in ER then admitted MR brain 10/11 1. Study somewhat degraded by motion artifact. 2 Areas of edema in the basal ganglia and thalami bilaterally, within the jamari and in the cerebral hemispheres bilaterally in the subcortical and deep white matter and in portions of the cortex. 3. Areas of encephalomalacia in the basal ganglia bilaterally with evidence of previous hemorrhage or mineral deposition. 4. Numerous small foci of acute infarct in the basal ganglia bilaterally, subinsular regions bilaterally and medial temporal lobes bilaterally and possibly in the occipital cortex bilaterally. The above findings may be secondary to an infectious or noninfectious etiology with a component of vasculopathy or vasculitis resulting in infarcts. Viral encephalopathies and lymphoma would need to be considered in this patient with history of HIV. Neuro ams acute metabolic encephalopathy improving /Acute CVA with Bilateral infarcts with edema Consulted Neurology, he was evaluated by DR. Valentine. mentation is improved, and this is likely his new baseline Dysphagia/ moderate malnutrition -MBS 10/23, recommended pureed with nectar thickened liquids, continue this diet Anemia- stable, thrombocytopenia, leukocytosis, coagulopathy; now resolved -Status post platelet (3 units) and prbc (5 units ) transfusion, the patient had only few schistocytes on smear, ADAMS13 91% activity -transfuse another unit of prbc today, plt count has recovered HIV/AIDS, CD4 count 3, HIV viral load 320,000 acute bacterial PNA, CMV viremia toxo neg, CSF neg Whole blood cmv PCR was positive at 1374 abx and a antiviral per ID high fever, cxr shows improvement of vasc congestion, blood cx No growth, femoral vas cath removed 11/06, now has IJ vas cath -he was put back on HAART, he likely has component of IRIS causing fevers and sob -CT on 11/06 confirms patchy infiltrate IRIS vs pna, abx per ID SHRUTHI- ATN, Hyperkalemia - resolved, urinary retention sp SPC on 10/12 cont HD per nephrology, no signs of renal recovery Pulm acute hypoxic resp failure on MV> 96 hours self extubated 10/16, continue supplemental oxygen CTA neg for PE on 11/06 CVS acute systolic CHF He was treated with Cardene drip which was weaned off. Optimize medications for CHF on coreg, no mik due to high K, fluid removal by dialysis Skin Stage 2 sacral wound decub . The wound was measured at 5.0x4.0. Small serous sanguineous drainage noticed from the wound. no evidence of infection, cont wound care DVT ppx- heparin sq Dispo: Needs HD and home health set up so as to be dc Subjective Date of service: 11/11/18 Principal diagnosis: anemia - hiv Interval history: No new complaints. lying quietly in bed. Remains afebrile Objective - Exam Narrative Exam: Constitutional: No abdominal . In no distress Head: Normocephalic atraumatic Eyes: Pupils are equal round and reactive to light Nose: No enlarged turbinates, no septal deviation. Mouth: Moist mucous membranes. Neck: Supple no thyromegaly. No bruit. No JVD Heart: Regular rate and rhythm, S1-S2 normal. No rubs murmurs or gallop Lungs: Clear to auscultation bilaterally. no rales or rhonchi Abdomen: Soft, nontender. Bowel sound are present. Extremities: No edema, no cyanosis, no clubbing. Neuro: No palpable. No focal sensory or motor deficit. Skin: No rashes or hyperpigmented spots Musculoskeletal system: No joint pain or swelling Hematological: No petechia or subcutanous hemorrhages. Immunological: No multiple septic spots on the skin Lymphatic: No generalized lymphadenopathy Psychiatry: Euthymic. Calm. - Constitutional Vitals: Vital Signs - 12hr 11/11/18 11/11/18 11/11/18 05:40 08:00 08:10 Temperature 97.8 F Pulse Rate Pulse Rate [ 109 H 108 H Bilateral Throughout] Respiratory 24 Rate Respiratory 24 18 Rate [Bilateral Throughout] Blood Pressure 125/86 Blood Pressure [Left] O2 Sat by Pulse Oximetry 11/11/18 11/11/18 11/11/18 10:00 11:55 12:00 Temperature 99.5 F 98.5 F Pulse Rate 73 Pulse Rate [ Bilateral Throughout] Respiratory 24 Rate Respiratory Rate [Bilateral Throughout] Blood Pressure 136/86 139/91 Blood Pressure 139/91 [Left] O2 Sat by Pulse 100 100 Oximetry - Labs CBC & Chem 7: 11/11/18 06:16 11/11/18 06:16 Labs: Abnormal lab results 11/11/18 11/11/18 Range/Units 06:16 06:16 WBC 11.1 H (4.5-11.0) K/mm3 RBC 2.62 L (3.65-5.03) M/mm3 Hgb 7.7 L (11.8-15.2) gm/dl Hct 23.4 L (35.5-45.6) % RDW 18.4 H (13.2-15.2) % Lymph % (Auto) 7.1 L (13.4-35.0) % [place] % (Auto) 14.5 H (0.0-7.3) % Lymph # 0.8 L (1.2-5.4) K/mm3 [place] # 1.6 H (0.0-0.8) K/mm3 Seg Neutrophils % 76.2 H (40.0-70.0) % Seg Neutrophils # 8.4 H (1.8-7.7) K/mm3 Sodium 135 L (137-145) mmol/L Chloride 89.2 L (98-107) mmol/L BUN 42 H (9-20) mg/dL Creatinine 7.2 H (0.8-1.5) mg/dL Glucose 107 H (75-100) mg/dL
--- NOTE | 2018-11-11 14:38 | Progress Note ---
Assessment and Plan - Patient Problems (1) Acute kidney injury Current Visit: Yes Status: Acute Plan to address problem: Acute kidney injury : severe Now dialysis dependent. I reviewed renal Ultrasound with 10.1cm and 10.8cm kidneys bilateral echogenic Possible aetiologies of Acute kidney injury is likely 2/2 acute tubular injury ,possible underlying HIV associated nephropathy cannot be excluded . He is currently oliguric currently dialysis dependent. Currently has a Mahurkar We'll need tunneled dialysis catheter placement appreciate Vascular surgery assistance. Avoid Nephrotoxic medications. 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 (2) Anemia Current Visit: Yes Status: Acute Qualifiers: Anemia type: due to chronic kidney disease Chronic kidney disease stage: unspecified stage Qualified Code(s): N18.9 - Chronic kidney disease, unspecified; D63.1 - Anemia in chronic kidney disease Plan to address problem: Moderate severe anemia 2/2 CKD and ongoing inflammation transfuse as needed. Hb: 7.6g/dl Epogen 20,000 units Monitor CBC. (3) Hyponatremia Current Visit: Yes Status: Acute Plan to address problem: Hyponatremia - 2/2 renal failure - ultrafiltration with HD sessions - Monitor BMP. (4) HIV (human immunodeficiency virus infection) Current Visit: Yes Status: Acute Qualifiers: HIV symptom status: symptomatic Qualified Code(s): B20 - Human immunode ficiency virus [HIV] disease Plan to address problem: HIV/ AIDS - has been treated for infection Still spiking low-grade fevers 100.4 - infectious disease on board . Subjective Principal diagnosis: anemia - hiv Interval history: 43 year old gentleman with medical history significant for HIV admitted with Sepsis , acute hypoxemic respiratory failure , Encephalopathy , transaminitis and worsening renal failure . Patient seen this morning Denies any ongoing diarrhea No peripheral edema. denies any shortness of breath. . Objective - Vital Signs Vital signs: Vital Signs - 12hr 11/11/18 11/11/18 11/11/18 05:40 08:00 08:10 Temperature 97.8 F Pulse Rate Pulse Rate [ 109 H 108 H Bilateral Throughout] Respiratory 24 Rate Respiratory 24 18 Rate [Bilateral Throughout] Blood Pressure 125/86 Blood Pressure [Left] O2 Sat by Pulse Oximetry 11/11/18 11/11/18 11/11/18 10:00 11:55 12:00 Temperature 99.5 F 98.5 F Pulse Rate 73 Pulse Rate [ Bilateral Throughout] Respiratory 24 Rate Respiratory Rate [Bilateral Throughout] Blood Pressure 136/86 139/91 Blood Pressure 139/91 [Left] O2 Sat by Pulse 100 100 Oximetry - General Appearance General appearance: cachectic, chronically ill, frail EENT: ATNC, PERRL Neck: no JVD Respiratory: Present: Decreased Breath Sounds Cardiology: regular, S1S2 Gastrointestinal: normal, normoactive bowel sounds Integumentary: no rash Neurologic: CN 3-12 intact, other (awake and alert) Psychiatric: mood/affect appropriate - Lab 11/11/18 06:16 11/11/18 06:16 Most recent lab results Calcium 8.9 mg/dL (8.4-10.2) 11/11/18 06:16 Phosphorus 8.30 mg/dL (2.5-4.5) H 10/25/18 10:00 Magnesium 3.10 mg/dL (1.7-2.3) H 10/18/18 05:03 Urine Creatinine 30.8 mg/dL (0.1-20.0) H 10/13/18 04:43 Urine Sodium 106 mmol/L 10/13/18 04:43 Urine Total Protein 75 mg/dL (5-11.8) H 10/13/18 04:43 - Imaging Chest x-ray: image reviewed (I reviewed chest x-ray with hazy opacities) Medications & Allergies - Medications Allergies/Adverse Reactions: Allergies Sulfa (Sulfonamide Antibiotics) Allergy (Verified 10/10/18 16:54) Unknown Home Medications: Home Medications Medication Instructions Recorded Confirmed Last Taken Type Acetaminophen [Tylenol] 1,000 mg PO Q6HR 10/10/18 10/10/18 Unknown History Amlodipine Besylate [Norvasc] 10 mg PO QDAY 10/10/18 10/10/18 Unknown History Aspirin [Adult Aspirin] 81 mg PO DAILY 10/10/18 10/10/18 Unknown History Atorvastatin [Lipitor Tab] 80 mg PO DAILY 10/10/18 10/10/18 Unknown History Losartan [Cozaar] 100 mg PO QDAY 10/10/18 10/10/18 Unknown History Multivitamin [Multiple Vitamins] 1 each PO DAILY 10/10/18 10/10/18 Unknown History hydroCHLOROthiazide [HCTZ] 25 mg PO QDAY 10/10/18 10/10/18 Unknown History Active Medications: Generic Name Dose Route Start Last Admin Trade Name Freq PRN Reason Stop Dose Admin Acetaminophen 500 mg 10/16/18 10:02 11/05/18 16:40 Tylenol PO 500 mg Q6H PRN Administration Fever >101 Albumin Human 25 gm 11/04/18 16:14 Alburx 25% (Albumin) IV CHON PRN Hypotension Albuterol 2.5 mg 10/10/18 18:12 Proventil IH Q3HRT PRN Shortness Of Breath Albuterol/Ipratropium 1 ampul 10/25/18 08:00 11/11/18 07:30 Duoneb *Not For Prn Use* IH 1 ampul TIDRT RUBI Administration Amlodipine Besylate 10 mg 10/11/18 10:00 11/11/18 12:00 Norvasc PO 10 mg QDAY RUBI Administration Lipase/Protease/Amylase 1 each 10/11/18 12:58 Pancreaze 10,500 Unit FEEDTUBE PRN PRN For Clogged Feeding Tube Atovaquone 750 mg 10/18/18 10:00 11/11/18 11:44 Mepron PO 750 mg BID RUBI Administration Carvedilol 12.5 mg 10/22/18 22:00 11/11/18 12:00 Coreg PO 12.5 mg BID RUBI Administration Darunavir 800 mg 10/30/18 18:00 11/11/18 11:44 Prezista PO 800 mg QDAY RUBI Administration Emtricitabine 200 mg 11/01/18 10:00 11/11/18 11:45 Emtriva PO 200 mg Q48HR RUBI Administration Epoetin Dany 10,000 unit 11/04/18 16:15 11/09/18 20:00 Procrit IV 10,000 unit CHON PRN Administration hemodialysis Haloperidol Lactate 5 mg 10/13/18 19:45 10/20/18 21:08 Haldol IV 5 mg Q6H PRN Administration Agitation Heparin Sodium (Porcine) 5,000 unit 11/04/18 16:15 Heparin IV CHON PRN hemodialysis Heparin Sodium (Porcine) 5,000 unit 11/07/18 22:00 11/11/18 06:52 Heparin SUB-Q 5,000 unit Q8HR RUBI Administration Hydralazine HCl 10 mg 10/12/18 15:50 10/28/18 22:36 Apresoline IV 10 mg Q4HR PRN Administration SBP>175 or DBP>115 Hydrophilic Ointment 1 applic 10/10/18 17:53 Vaseline Lip Therapy TP Q2HR PRN Dry Lips Sodium Chloride 100 mls @ 999 mls/hr 11/07/18 09:20 Nacl 0.9% IV CHON PRN Hypotension Lansoprazole 30 mg 10/15/18 10:00 11/11/18 11:45 Prevacid Solutab FEEDTUBE 30 mg BID RUBI Administration Lorazepam 1 mg 10/13/18 19:48 10/21/18 04:09 Ativan IV 1 mg Q4H PRN Administration agitation Metoprolol Tartrate 5 mg 10/18/18 14:05 Lopressor IV Q6HR PRN Tachyarrhythmias Multi-Ingred Cream/Lotion/Oil/Oint 1 applic 10/10/18 17:53 Artificial Tears Ophth Oint OU Q4HR PRN Dry Eye(s) Multivitamins 1 each 10/11/18 10:00 11/11/18 11:46 Theragran Tab PO 1 each DAILY RUBI Administration Nystatin 100,000 unit 11/02/18 18:00 11/11/18 11:44 Nystatin PO 100,000 unit QID RUBI Administration Psyllium Hydrophilic Mucilloid 1 each 11/08/18 18:00 11/11/18 11:45 Metamucil PO 1 each QDAY RUBI Administration Ritonavir 100 mg 10/30/18 18:00 11/11/18 11:46 Norvir PO 100 mg QDAY RUBI Administration Simple Syrup 15 ml 10/11/18 12:58 Simple Syrup FEEDTUBE PRN PRN Hypoglycemia Simple Syrup 30 ml 10/11/18 12:58 Simple Syrup FEEDTUBE PRN PRN Hypoglycemia Sodium Bicarbonate 325 mg 10/11/18 12:58 Sodium Bicarbonate FEEDTUBE PRN PRN For Clogged Feeding Tube Sodium Chloride 10 ml 10/10/18 22:00 11/11/18 11:46 Sodium Chloride Flush Syringe 10 Ml IV 10 ml BID RUBI Administration Sodium Chloride 10 ml 10/10/18 18:12 Sodium Chloride Flush Syringe 10 Ml IV PRN PRN LINE FLUSH Tenofovir Disoproxil Fumarate 300 mg 10/30/18 17:45 11/07/18 18:09 Viread PO Not Given Q96H RUBI
[2018-11-11] MEDS: VIREAD PO SCH (19:20)
[2018-11-12] MEDS: HEPARIN SUB-Q SCH ×3 (06:24→22:10)
--- NOTE | 2018-11-12 07:47 | Hem/Onc Progress Note ---
Assessment and Plan 1. Anemia. At admission, hemoglobin was 8.1, later low and s/p Transfusion support. 2. Platelets at admission was 20. 3. White cell count was elevated. 4. PT/INR h/o slightly elevated. 5. Renal failure. 6. ALT elevated. 7. The patient has multiple medical issues. HIV 10/13 - plt better - s/p transfusion d/w dr rain and dr carrillo 10/14 - low plt - rasta ctive bleed suprapubic catheter 10/15 - plt were rising and again going down' pt had got plt transfusion LDH high - [id number] ordered smear - ordererd LDH may be high in other causes too - renal etc 10/16 - d/w path - not many schistocytes on smear - ADAMTS 13 ordered extubated 10/17 - plt low - path review ordered d/w armin monsalve 10/18 - path report pending plt low - but no active bleeding 10/19 - pt more alert - follows commands no bleeding 10/20 pt SOB - d/w Dr Monsalve and RN plt low - but no bleeding NGT+ more awake 10/21 - pt in IMC plt >100 - more awake 10/22 - clinically better - moves all 4 limbs 10/23 - clinically stable - prbc suport 10/24 - as per RN -pt passed barium - for thickened diet pt has suprapubic got PRBC plt improving 10/25 - clinically better no active bleeding 10/26 - moving all extremity -communicating repeat cbc 10/27 - labs better - clinically improving 10/28 - plt now normal - hb better - s/p PRBC recent CKD may have a role 10/29 - pt clinically stable - 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 - electrolyte abn 10/30 - cbc improving - pt had question reg rectal tube - he will d/w other MDs 10/31 - plt better - hb better - OP follow up an option 11/01 - labs follow up 11/02 anemia d/w rn - rectal tube - decubiti suprapubic HD cath change planned 11/03/2018 pt getting HD rectal tube present 11/04- on o2 will follow labs gets HD 11/05 anemia slight SOB - on o2 HD cath 11/06 - d/w dr Shen reg pt anemia HD cath fever issues 11/07 CT shows pneumonia hb better 11/08 - anemia - d/w dr mcmullen - PRBC and follow 11/09 - pt less SOB s/p prbc d/w RN 11/10 hb better still has rectal tube 11/12 pt hb better gets HD - plt normal HIv - Id following - Patient Problems (1) Thrombocytopenia associated with AIDS Current Visit: Yes Status: Acute (2) Anemia Current Visit: Yes Status: Acute Qualifiers: Anemia type: due to chronic kidney disease Chronic kidney disease stage: unspecified stage Qualified Code(s): N18.9 - Chronic kidney disease, unspecified; D63.1 - Anemia in chronic kidney disease Subjective Date of service: 11/12/18 Principal diagnosis: anemia - HIV - Renal issues Interval history: says doing ok Objective - Constitutional Vitals: Last Vital Signs Temp 97.9 F 11/12/18 05:25 Pulse 123 H 11/12/18 05:25 Resp 36 H 11/12/18 05:25 BP 137/95 11/12/18 05:25 Pulse Ox 99 11/12/18 05:25 Pain Intensity (0-10): denies any pain General appearance: no acute distress Performance status: 4-completely disabled - EENT Eyes: EOM intact ENT: clear oral mucosa Lymph node exam: negative cervical - Neck Neck: normal ROM - Respiratory Respiratory effort: Positive: normal Respiratory: bilateral: CTA - Cardiovascular Heart Sounds: Present: S1 & S2 Extremities: No edema - Gastrointestinal General gastrointestinal: Present: soft Rectal Exam: deferred - Genitourinary Male genitourinary: Present: deferred - Integumentary Integumentary: warm - Musculoskeletal Musculoskeletal: generalized weakness - Neurologic Neurologic: moves all extremities - Labs Lab Results: Laboratory Results - last 24 hr 11/11/18 11/11/18 06:16 06:16 WBC 11.1 H RBC 2.62 L Hgb 7.7 L Hct 23.4 L MCV 89 MCH 30 MCHC 33 RDW 18.4 H Plt Count 234 Lymph % (Auto) 7.1 L [place] % (Auto) 14.5 H Eos % (Auto) 1.1 Baso % (Auto) 1.1 Lymph # 0.8 L [place] # 1.6 H Eos # 0.1 Baso # 0.1 Seg Neutrophils % 76.2 H Seg Neutrophils # 8.4 H Sodium 135 L Potassium 4.1 Chloride 89.2 L Carbon Dioxide 23 Anion Gap 27 BUN 42 H Creatinine 7.2 H Estimated GFR 10 BUN/Creatinine Ratio 6 Glucose 107 H Calcium 8.9 Medications & Allergies - Medications Allergies/Adverse Reactions: Allergies Sulfa (Sulfonamide Antibiotics) Allergy (Verified 10/10/18 16:54) Unknown Home Medications: Home Medications Medication Instructions Recorded Confirmed Last Taken Type Acetaminophen [Tylenol] 1,000 mg PO Q6HR 10/10/18 10/10/18 Unknown History Amlodipine Besylate [Norvasc] 10 mg PO QDAY 10/10/18 10/10/18 Unknown History Aspirin [Adult Aspirin] 81 mg PO DAILY 10/10/18 10/10/18 Unknown History Atorvastatin [Lipitor Tab] 80 mg PO DAILY 10/10/18 10/10/18 Unknown History Losartan [Cozaar] 100 mg PO QDAY 10/10/18 10/10/18 Unknown History Multivitamin [Multiple Vitamins] 1 each PO DAILY 10/10/18 10/10/18 Unknown History hydroCHLOROthiazide [HCTZ] 25 mg PO QDAY 10/10/18 10/10/18 Unknown History Active Medications: Generic Name Dose Route Start Last Admin Trade Name Freq PRN Reason Stop Dose Admin Acetaminophen 500 mg 10/16/18 10:02 11/05/18 16:40 Tylenol PO 500 mg Q6H PRN Administration Fever >101 Albumin Human 25 gm 11/04/18 16:14 Alburx 25% (Albumin) IV CHON PRN Hypotension Albuterol 2.5 mg 10/10/18 18:12 Proventil IH Q3HRT PRN Shortness Of Breath Albuterol/Ipratropium 1 ampul 10/25/18 08:00 11/11/18 20:37 Duoneb *Not For Prn Use* IH 1 ampul TIDRT RUBI Administration Amlodipine Besylate 10 mg 10/11/18 10:00 11/11/18 12:00 Norvasc PO 10 mg QDAY RUBI Administration Lipase/Protease/Amylase 1 each 10/11/18 12:58 Pancrebecka Reed 10,500 Unit FEEDTUBE PRN PRN For Clogged Feeding Tube Atovaquone 750 mg 10/18/18 10:00 11/11/18 22:51 Mepron PO 750 mg BID RUBI Administration Carvedilol 12.5 mg 10/22/18 22:00 11/11/18 22:51 Coreg PO 12.5 mg BID RUBI Administration Darunavir 800 mg 10/30/18 18:00 11/11/18 11:44 Prezista PO 800 mg QDAY RUBI Administration Emtricitabine 200 mg 11/01/18 10:00 11/11/18 11:45 Emtriva PO 200 mg Q48HR RUBI Administration Epoetin [place] 20,000 unit 11/12/18 15:00 [place] Haloperidol Lactate 5 mg 10/13/18 19:45 10/20/18 21:08 Haldol IV 5 mg Q6H PRN Administration Agitation Heparin Sodium (Porcine) 5,000 unit 11/04/18 16:15 Heparin IV CHON PRN hemodialysis Heparin Sodium (Porcine) 5,000 unit 11/07/18 22:00 11/12/18 06:24 Heparin SUB-Q 5,000 unit Q8HR RUBI Administration Hydralazine HCl 10 mg 10/12/18 15:50 10/28/18 22:36 Apresoline IV 10 mg Q4HR PRN Administration SBP>175 or DBP>115 Hydrophilic Ointment 1 applic 10/10/18 17:53 Vaseline Lip Therapy TP Q2HR PRN Dry Lips Sodium Chloride 100 mls @ 999 mls/hr 11/07/18 09:20 Nacl 0.9% IV CHON PRN Hypotension Lansoprazole 30 mg 10/15/18 10:00 11/11/18 22:51 Prevacid Solutab FEEDTUBE 30 mg BID RUBI Administration Lorazepam 1 mg 10/13/18 19:48 10/21/18 04:09 Ativan IV 1 mg Q4H PRN Administration agitation Metoprolol Tartrate 5 mg 10/18/18 14:05 Lopressor IV Q6HR PRN Tachyarrhythmias Multi-Ingred Cream/Lotion/Oil/Oint 1 applic 10/10/18 17:53 Artificial Tears Ophth Oint OU Q4HR PRN Dry Eye(s) Multivitamins 1 each 10/11/18 10:00 11/11/18 11:46 Theragran Tab PO 1 each DAILY RUBI Administration Nystatin 100,000 unit 11/02/18 18:00 11/11/18 22:51 Nystatin PO 100,000 unit QID RUBI Administration Psyllium Hydrophilic Mucilloid 1 each 11/08/18 18:00 11/11/18 11:45 Metamucil PO 1 each QDAY RUBI Administration Ritonavir 100 mg 10/30/18 18:00 11/11/18 11:46 Norvir PO 100 mg QDAY RUBI Administration Simple Syrup 15 ml 10/11/18 12:58 Simple Syrup FEEDTUBE PRN PRN Hypoglycemia Simple Syrup 30 ml 10/11/18 12:58 Simple Syrup FEEDTUBE PRN PRN Hypoglycemia Sodium Bicarbonate 325 mg 10/11/18 12:58 Sodium Bicarbonate FEEDTUBE PRN PRN For Clogged Feeding Tube Sodium Chloride 10 ml 10/10/18 22:00 11/11/18 22:58 Sodium Chloride Flush Syringe 10 Ml IV 10 ml BID RUBI Administration Sodium Chloride 10 ml 10/10/18 18:12 Sodium Chloride Flush Syringe 10 Ml IV PRN PRN LINE FLUSH Tenofovir Disoproxil Fumarate 300 mg 10/30/18 17:45 11/11/18 19:20 Viread PO 300 mg Q96H RUBI Administration
[2018-11-12] MEDS: DUONEB *Not for PRN Use IH SCH ×3 (07:57→21:02)
[2018-11-12 08:33] LABS: Hematocrit 25.4 % (35.5-45.6); Hemoglobin 8.2 gm/dl (11.8-15.2); Mean Corpuscular HGB Conc 32 % (32-34); Mean Corpuscular Volume 88 fl (84-94); Platelet Count 243 K/mm3 (140-440); Red Cell Distribution Width 18.2 % (13.2-15.2)
[2018-11-12 08:51] LABS: Calcium 9.1 mg/dL (8.4-10.2)
--- NOTE | 2018-11-12 09:46 | Progress Note ---
Assessment and Plan Cultures: Blood culture 10/10/2018 no growth. Sputum culture 10/10/2018 Ana Paula albicans. Crypto Ag 10/10/2018 neg. Urine culture 10/13/2018 no growth. Blood culture 10/17/2018 no growth. Blood culture 10/20/2018: no growth Stool Occult Blood 10/23/18: positive Blood culture 10/29/18: negative Urine culture 10/31/18: Ana Paula Blood culture 11/05/18: No growth Assessment: 43 y/o male with history of HIV (unknown CD4/VL/ART intake), HTN, CVA 6 months ago at [place], Nicotine Dependence, Malnutrition; admitted on 10/10/2018 due to AMS (confusion/lethargy) and slurred speech for 24 h: 1) SIRS versus sepsis: Noted Leukocytosis and continued tachycardia. s/p femoral HD cath removed 11/06/18, Right IJ VAS cath placed. Started HIV treatment on 10/30/2018. - CXR neg - BNP 70K - Troponin 0.2 - LDH 2242 2) Acute hypoxemic respiratory failure: for airway protection +/- ? pneumonia. Repeat CXR no consolidations. Ana Paula in tracha sp likely a colonizer. Extubated 10/15. Continues on atovaquone as prophylaxis. Patient has sulfa allergy. 3) Acute encephalopathy: Improved.; multifactorial ?from hypertensive urgency +/ - brain opportunistic infection. DDx: Neurosyphilis, VZV/CMV encephalitis versus [employer] lymphoma versus less likely PML v/s ischemic CVA (seems more likely) - CT head showed bilateral chronic ischemic changes. - Brain MRI showed areas of edema in the basal ganglia and thalami bilaterally, within the jamari and in the cerebral hemispheres bilaterally in the subcortical and deep white matter and in portions of the cortex, areas of encephalomalacia in the basal ganglia bilaterally with evidence of previous hemorrhage or mineral deposition and numerous small foci of acute infarct in the basal ganglia bilaterally, subinsular regions bilaterally and medial temporal lobes bilaterally and possibly in the occipital cortex bilaterally. - Brain MRA showed possible dissection versus artifact at the basilar artery. Luminal irregularity at the anterior, middle, and posterior cerebral arteries as well as the carotid siphons may represent mild to moderate atherosclerotic disease. More notable narrowing at the distal right A1 segment. Differential diagnosis includes motion artifact and vasculitis. Vertebral arteries are not clearly visualized. - CSF wbc 4, rbc 113, Seg 8%, Lymph 76%, protein 55, glucose 73 which is not c/w meningitis - RPR reactive 1:32 / FTA ABs reactive, treated with penicillin and ceftriaxone but CSF VDRL Non reactive. - Toxoplasma IgG negative, CSF Toxoplasma PCR: negative - Blood CMV DNA VL=1,370, 3.1 log on ganciclovir - likely reactivation - Repeat CMV DNA PCR 10/24/2018: <200. Off ganciclovir. - Glucan Assay: negative 4) Anemia/thrombocytopenia: improving. 5) Acute on CKD or SHRUTHI ? unclear etiology: on HD. 6) DM: uncontrolled. 7) HIV/AIDS: VL 320,000 / CD4=3 on 10/11/2018. Continue HIV therapy (started on 10/30/2018): renally adjusted TDF, FTC along with dolutegravir and ritonavir boosted darunavir. Follow up Genotype and if no resistance mutations, possibly d/c both TDF and FTC and continue nuc-sparing regimen of dolutegravir along with ritonavir boosted darunavir. Recommendations: -continue atovaquone 750 mg BID -continue HIV therapy: renally adjusted TDF, FTC along with dolutegravir and ritonavir boosted darunavir -follow up HIV Genotype - Anticipate discharge on Emtriva 200 mg every 48 hours, Tenofovir 300mg every 96 hours and Dolutegravir 50mg q day - Will write 30 day prescription upon discharge [facility] M: [phone] O:[phone] Subjective Date of service: 11/12/18 Principal diagnosis: anemia - HIV - Renal issues Interval history: Patient seen and examined. No acute distress observed. Following simple commands. Objective - Exam Narrative Exam: General appearance: Awake, Alert, No acute distress Eyes: anicteric sclerae, moist conjunctivae; no lid-lag; PERRLA HENT: Atraumatic; oropharynx limited Neck: Trachea midline; supple, no thyromegaly or lymphadenopathy Lungs: CTA, with normal respiratory effort, on CV: tachycardic Abdomen: Soft, non-tender;+SP cath : + rectal bag Extremities: No peripheral edema , + contractures bilateral lower extremities Skin: Normal temperature, turgor and texture; no rash, ulcers or subcutaneous nodules Psych: affect: Flat Neuro: Improved, following simple commands - Constitutional Vitals: Vital Signs Temp Pulse Resp BP Pulse Ox 97.9 F 124 H 20 137/95 99 11/12/18 05:25 11/12/18 07:57 11/12/18 07:57 11/12/18 05:25 11/12/18 05:25 Temperature -Last 24 Hours Temperature 97.9 F Temperature 97.8 F Temperature 99.1 F Temperature 98.5 F Temperature 99.5 F - Labs CBC & Chem 7: 11/12/18 07:29 11/12/18 07:29 Labs: Abnormal lab results 11/12/18 11/12/18 Range/Units 07:29 07:29 WBC 13.3 H (4.5-11.0) K/mm3 RBC 2.90 L (3.65-5.03) M/mm3 Hgb 8.2 L (11.8-15.2) gm/dl Hct 25.4 L (35.5-45.6) % RDW 18.2 H (13.2-15.2) % Sodium 136 L (137-145) mmol/L Potassium 5.1 H D (3.6-5.0) mmol/L Chloride 92.3 L (98-107) mmol/L BUN 67 H (9-20) mg/dL Creatinine 9.1 H (0.8-1.5) mg/dL Glucose 113 H (75-100) mg/dL
[2018-11-12] MEDS ORDERED: NACL 0.9% 100 ML IV PRN (09:51)
--- NOTE | 2018-11-12 09:51 | Progress Note ---
Assessment and Plan Impression * Acute renal failure. Most likely secondary to ATN * Respiratory failure * Encephalopathy * Sepsis * Anemia * Thrombocytopenia * HIV disease Recommendations * Patient remains oliguric and dialysis dependent. * Continue dialysis on MWF schedule for now * He most likely has ATN * Avoid nephrotoxins * Adjust meds for GFR less than 10 * Monitor fluid status and electrolytes closely * Consultants notes appreciated * Patient is still with a Vas-Cath. He will require PermCath. Shall discuss with vascular surgery Subjective Principal diagnosis: anemia - HIV - Renal issues Interval history: Patient is arousable. However not answering any questions. Currently in a feta l position. Pured diet at bedside. Has not eaten his breakfast yet Objective - Vital Signs Vital signs: Vital Signs - 12hr 11/11/18 11/11/18 11/11/18 22:00 22:13 22:51 Temperature 97.8 F Pulse Rate 124 H 122 H Pulse Rate [ Anterior Bilateral Throughout] Pulse Rate [ 124 H Left Radial] Respiratory 36 H Rate Respiratory Rate [Anterior Bilateral Throughout] Blood Pressure 134/91 144/90 O2 Sat by Pulse 99 99 Oximetry 11/12/18 11/12/18 05:25 07:57 Temperature 97.9 F Pulse Rate 123 H Pulse Rate [ 124 H Anterior Bilateral Throughout] Pulse Rate [ Left Radial] Respiratory 36 H Rate Respiratory 20 Rate [Anterior Bilateral Throughout] Blood Pressure 137/95 O2 Sat by Pulse 99 Oximetry - General Appearance General appearance: chronically ill, frail EENT: PERRL, mucous membranes moist, other (right IJ Vas-Cath in place) Neck: no JVD, no thyromegaly, no carotid bruit, supple Respiratory: Present: Clear to Ascultation Cardiology: regular, normal heart rate, S1S2, no murmurs Gastrointestinal: normal, normoactive bowel sounds Integumentary: other (no edema) - Lab 11/12/18 07:29 11/12/18 07:29 Most recent lab results Calcium 9.1 mg/dL (8.4-10.2) 11/12/18 07:29 Phosphorus 8.30 mg/dL (2.5-4.5) H 10/25/18 10:00 Magnesium 3.10 mg/dL (1.7-2.3) H 10/18/18 05:03 Urine Creatinine 30.8 mg/dL (0.1-20.0) H 10/13/18 04:43 Urine Sodium 106 mmol/L 10/13/18 04:43 Urine Total Protein 75 mg/dL (5-11.8) H 10/13/18 04:43 Medications & Allergies - Medications Allergies/Adverse Reactions: Allergies Sulfa (Sulfonamide Antibiotics) Allergy (Verified 10/10/18 16:54) Unknown Home Medications: Home Medications Medication Instructions Recorded Confirmed Last Taken Type Acetaminophen [Tylenol] 1,000 mg PO Q6HR 10/10/18 10/10/18 Unknown History Amlodipine Besylate [Norvasc] 10 mg PO QDAY 10/10/18 10/10/18 Unknown History Aspirin [Adult Aspirin] 81 mg PO DAILY 10/10/18 10/10/18 Unknown History Atorvastatin [Lipitor Tab] 80 mg PO DAILY 10/10/18 10/10/18 Unknown History Losartan [Cozaar] 100 mg PO QDAY 10/10/18 10/10/18 Unknown History Multivitamin [Multiple Vitamins] 1 each PO DAILY 10/10/18 10/10/18 Unknown History hydroCHLOROthiazide [HCTZ] 25 mg PO QDAY 10/10/18 10/10/18 Unknown History Active Medications: Generic Name Dose Route Start Last Admin Trade Name Freq PRN Reason Stop Dose Admin Acetaminophen 500 mg 10/16/18 10:02 11/05/18 16:40 Tylenol PO 500 mg Q6H PRN Administration Fever >101 Albumin Human 25 gm 11/04/18 16:14 Alburx 25% (Albumin) IV COHN PRN Hypotension Albuterol 2.5 mg 10/10/18 18:12 Proventil IH Q3HRT PRN Shortness Of Breath Albuterol/Ipratropium 1 ampul 10/25/18 08:00 11/12/18 07:57 Duoneb *Not For Prn Use* IH 1 ampul TIDRT RUBI Administration Amlodipine Besylate 10 mg 10/11/18 10:00 11/11/18 12:00 Norvasc PO 10 mg QDAY RUBI Administration Lipase/Protease/Amylase 1 each 10/11/18 12:58 Pancrebecka Reed 10,500 Unit FEEDTUBE PRN PRN For Clogged Feeding Tube Atovaquone 750 mg 10/18/18 10:00 11/11/18 22:51 Mepron PO 750 mg BID RUBI Administration Carvedilol 12.5 mg 10/22/18 22:00 11/11/18 22:51 Coreg PO 12.5 mg BID RUBI Administration Darunavir 800 mg 10/30/18 18:00 11/11/18 11:44 Prezista PO 800 mg QDAY RUBI Administration Emtricitabine 200 mg 11/01/18 10:00 11/11/18 11:45 Emtriva PO 200 mg Q48HR RUBI Administration Epoetin Dany 20,000 unit 11/12/18 15:00 [facility] Haloperidol Lactate 5 mg 10/13/18 19:45 10/20/18 21:08 Haldol IV 5 mg Q6H PRN Administration Agitation Heparin Sodium (Porcine) 5,000 unit 11/04/18 16:15 Heparin IV CHON PRN hemodialysis Heparin Sodium (Porcine) 5,000 unit 11/07/18 22:00 11/12/18 06:24 Heparin SUB-Q 5,000 unit Q8HR RUBI Administration Hydralazine HCl 10 mg 10/12/18 15:50 10/28/18 22:36 Apresoline IV 10 mg Q4HR PRN Administration SBP>175 or DBP>115 Hydrophilic Ointment 1 applic 10/10/18 17:53 Vaseline Lip Therapy TP Q2HR PRN Dry Lips Sodium Chloride 100 mls @ 999 mls/hr 11/07/18 09:20 Nacl 0.9% IV CHON PRN Hypotension Lansoprazole 30 mg 10/15/18 10:00 11/11/18 22:51 Prevacid Solutab FEEDTUBE 30 mg BID RUBI Administration Lorazepam 1 mg 10/13/18 19:48 10/21/18 04:09 Ativan IV 1 mg Q4H PRN Administration agitation Metoprolol Tartrate 5 mg 10/18/18 14:05 Lopressor IV Q6HR PRN Tachyarrhythmias Multi-Ingred Cream/Lotion/Oil/Oint 1 applic 10/10/18 17:53 Artificial Tears Ophth Oint OU Q4HR PRN Dry Eye(s) Multivitamins 1 each 10/11/18 10:00 11/11/18 11:46 Theragran Tab PO 1 each DAILY RUBI Administration Nystatin 100,000 unit 11/02/18 18:00 11/11/18 22:51 Nystatin PO 100,000 unit QID RUBI Administration Psyllium Hydrophilic Mucilloid 1 each 11/08/18 18:00 11/11/18 11:45 Metamucil PO 1 each QDAY RUBI Administration Ritonavir 100 mg 10/30/18 18:00 11/11/18 11:46 Norvir PO 100 mg QDAY RUBI Administration Simple Syrup 15 ml 10/11/18 12:58 Simple Syrup FEEDTUBE PRN PRN Hypoglycemia Simple Syrup 30 ml 10/11/18 12:58 Simple Syrup FEEDTUBE PRN PRN Hypoglycemia Sodium Bicarbonate 325 mg 10/11/18 12:58 Sodium Bicarbonate FEEDTUBE PRN PRN For Clogged Feeding Tube Sodium Chloride 10 ml 10/10/18 22:00 11/11/18 22:58 Sodium Chloride Flush Syringe 10 Ml IV 10 ml BID RUBI Administration Sodium Chloride 10 ml 10/10/18 18:12 Sodium Chloride Flush Syringe 10 Ml IV PRN PRN LINE FLUSH Tenofovir Disoproxil Fumarate 300 mg 10/30/18 17:45 11/11/18 19:20 Viread PO 300 mg Q96H RUBI Administration
[2018-11-12 09:56] LABS: Basophils % (Manual) 0 % (0.0-1.8); Eosinophils % (Manual) 0 % (0.0-4.3); Total Cells Counted 100
[2018-11-12 09:57] LABS: Anisocytosis 1+; Macrocytosis Few; Poikilocytosis 1+
[2018-11-12 09:58] LABS: Platelet Estimate Consistent w Auto; Schistocytes Rare; Target Cells Rare
[2018-11-12] MEDS: PREZISTA PO SCH (12:51)
[2018-11-12] MEDS: NYSTATIN PO SCH ×2 (12:51→15:45)
[2018-11-12] MEDS: NORVIR PO SCH (12:51)
[2018-11-12] MEDS: PREVACID SOLUTAB FEEDTUBE SCH ×2 (12:52→22:11)
[2018-11-12] MEDS: TIVICAY PO SCH (12:52)
[2018-11-12] MEDS: METAMUCIL PO SCH (12:52)
[2018-11-12] MEDS: MEPRON PO SCH ×2 (12:52→22:11)
[2018-11-12] MEDS: THERAGRAN Tab PO SCH (12:52)
[2018-11-12] MEDS: SODIUM CHLORIDE FLUSH SYRINGE 10 ML IV SCH ×2 (12:52→22:11)
[2018-11-12] MEDS: COREG PO SCH ×2 (12:56→22:11)
[2018-11-12] MEDS ORDERED: ZOFRAN IV PRN (15:05)
--- NOTE | 2018-11-12 15:14 | Operative Report ---
Operative Report Operative Report: Date of procedure: 11/06/2018 Pre-operative diagnosis: ESRD Post-operative diagnosis: same Procedure name(s): 1. US guided puncture of the right internal jugular vein 2. Placement of right internal jugular 6 inch Vas-Cath 3. Fluoroscopic supervision Surgeon: Shane Paez MD, FACS Mounting Inspector: none Anesthesia: local with sedation EBL: minimal Operative indication: Patient is a 43 yo male who requires hemodialysis access. Findings: Good flow from both ports. Catheter located at the cavoatrial ju nction. Procedure: The patient was placed on the table in the supine position. The area over the right neck and chest was prepped with ChloraPrep solution and draped in usual sterile fashion. 2% lidocaine was used for local anesthesia. Under real-time ultrasound guidance the right internal jugular vein was identified and cannulated. A guidewire was advanced into the central circulation. The tract was dilated and a 6 inch dialysis catheter was placed into the central circulation. The tip was at the cavoatrial junction. The catheter was sewn to the skin with 2-0 Proline. Sterile dressings were applied. The patient tolerated the procedure well.
--- NOTE | 2018-11-12 15:18 | Event Note ---
Date: 11/12/18 Contacted recently about placing a permacath instead of his existing Vas-Cath. White count continues to elevate and is now over 13,000. Patient has a history of significant infections which have prevented long-term access earlier. In addition, patient's overall prognosis appears to be relatively poor. Based on patient's substantial medical problems, he will likely be a difficult long-term access candidate. At this point, I would be reluctant to convert him to permanent access only to discover that is white blood cell count continues to elevate, he develops fevers, and concern over catheter infection will result in repeated exchanges of catheters. I believe at this point, it is best to leave the patient with a temporary access until we have a better idea of whether or not he can tolerate a permanent access.
[2018-11-12] MEDS: NORVASC PO SCH (15:45)
--- NOTE | 2018-11-12 17:42 | Progress Note ---
Assessment and Plan patient is 43 YO Male with HIV, hypertension, previous stroke, Nicotine Dependence, presents to ED for evaluation. Patient was confused and lethargic and unable to provide history. He was seen and evaluated in ED and found to be in distress and unable to protect his airway and was therefore intubated, placed on ventilator in ER then admitted MR brain 10/11 1. Study somewhat degraded by motion artifact. 2 Areas of edema in the basal ganglia and thalami bilaterally, within the jamari and in the cerebral hemispheres bilaterally in the subcortical and deep white matter and in portions of the cortex. 3. Areas of encephalomalacia in the basal ganglia bilaterally with evidence of previous hemorrhage or mineral deposition. 4. Numerous small foci of acute infarct in the basal ganglia bilaterally, subinsular regions bilaterally and medial temporal lobes bilaterally and possibly in the occipital cortex bilaterally. The above findings may be secondary to an infectious or noninfectious etiology with a component of vasculopathy or vasculitis resulting in infarcts. Viral encephalopathies and lymphoma would need to be considered in this patient with history of HIV. Leukocytosis and fever Likely source of infection could be sacraldecub Obtain blood and urine cx. commence pt on imperical antibiotic ID still on baoard. Impuit appreciated Acute metabolic encephalopathy improving Acute CVA with Bilateral infarcts with edema Consulted Neurology, he was evaluated by DR. Valentine. mentation is improved, and this is likely his new baseline Dysphagia/ moderate malnutrition -MBS 10/23, recommended pureed with nectar thickened liquids, continue this diet Anemia- stable, thrombocytopenia, leukocytosis, coagulopathy; now resolved -Status post platelet (3 units) and prbc (5 units ) transfusion, the patient had only few schistocytes on smear, ADAMS13 91% activity -transfuse another unit of prbc today, plt count has recovered HIV/AIDS, CD4 count 3, HIV viral load 320,000 toxo neg, CSF neg Whole blood cmv PCR was positive at 1374 abx and a antiviral per ID Acute bacterial PNA, CMV viremia high fever, cxr shows improvement of vasc congestion, fup blood cx, femoral vas cath removed 11/06, now has IJ vas cath -he was put back on HAART, he likely has component of IRIS causing fevers and sob -CT on 11/06 confirms patchy infiltrate IRIS vs pna, abx per ID SHRUTHI- ATN, Hyperkalemia, urinary retention sp SPC on 10/12 cont HD per nephrology, no signs of renal recovery Vascath placed today in RIJ for HD Acute hypoxic resp failure on MV> 96 hours self extubated 10/16, continue supplemental oxygen CTA neg for PE on 11/06 Hypertensive urgency and acute systolic CHF He was treated with Cardene drip which was weaned off. BP controlled CHF Cotn coreg, no mik due to high K, fluid removal by dialysis Skin Stage 2 sacral wound decub . The wound was measured at 5.0x4.0. Small serous sanguineous drainage noticed from the wound. no evidence of infection, cont wound care DVT ppx- heparin sq Dispo: Needs HD and home health set up so as to be dc Subjective Date of service: 11/12/18 Principal diagnosis: anemia - HIV - Renal issues Interval history: No new complaints. Lying quietly in bed with contractures Objective - Exam Narrative Exam: Constitutional: ILL-looking. Lying in bed with contracture. Well-nourished well- developed. In no distress Head: Normocephalic atraumatic Eyes: Pupils are equal round and reactive to light Nose: No enlarged turbinates, no septal deviation. Mouth: Moist mucous membranes. Neck: Supple no thyromegaly. No bruit. No JVD Heart: Regular rate and rhythm, S1-S2 normal. No rubs murmurs or gallop Lungs: Clear to auscultation bilaterally. no rales or rhonchi Abdomen: Soft, nontender. Bowel sound are present. Extremities: No edema, no cyanosis, no clubbing. Neuro: Alert oriented Oriented x3. No focal sensory or motor deficit. Skin: No rashes or hyperpigmented spots Musculoskeletal system: No joint pain or swelling Hematological: No petechia or subcutanous hemorrhages. Immunological: No multiple septic spots on the skin Lymphatic: No generalized lymphadenopathy Psychiatry: Euthymic. Calm. - Constitutional Vitals: Vital Signs - 12hr 11/12/18 11/12/18 11/12/18 07:57 08:07 12:26 Temperature 99.5 F Pulse Rate 126 H Pulse Rate [ 124 H 122 H Anterior Bilateral Throughout] Respiratory 24 Rate Respiratory 20 20 Rate [Anterior Bilateral Throughout] Blood Pressure 143/93 O2 Sat by Pulse 99 Oximetry 11/12/18 11/12/18 11/12/18 12:56 14:19 14:29 Temperature Pulse Rate 96 H Pulse Rate [ 123 H 126 H Anterior Bilateral Throughout] Respiratory Rate Respiratory 20 20 Rate [Anterior Bilateral Throughout] Blood Pressure 143/93 O2 Sat by Pulse Oximetry 11/12/18 16:08 Temperature 98.4 F Pulse Rate 116 H Pulse Rate [ Anterior Bilateral Throughout] Respiratory 20 Rate Respiratory Rate [Anterior Bilateral Throughout] Blood Pressure 136/91 O2 Sat by Pulse 99 Oximetry - Labs CBC & Chem 7: 11/12/18 07:29 11/12/18 07:29 Labs: Abnormal lab results 11/12/18 11/12/18 Range/Units 07:29 07:29 WBC 13.3 H (4.5-11.0) K/mm3 RBC 2.90 L (3.65-5.03) M/mm3 Hgb 8.2 L (11.8-15.2) gm/dl Hct 25.4 L (35.5-45.6) % RDW 18.2 H (13.2-15.2) % Seg Neuts % (Manual) 84.0 H (40.0-70.0) % Lymphocytes % (Manual) 3.0 L (13.4-35.0) % Monocytes % (Manual) 13.0 H (0.0-7.3) % Seg Neutrophils # Man 11.2 H (1.8-7.7) K/mm3 Lymphocytes # (Manual) 0.4 L (1.2-5.4) K/mm3 Monocytes # (Manual) 1.7 H (0.0-0.8) K/mm3 Sodium 136 L (137-145) mmol/L Potassium 5.1 H D (3.6-5.0) mmol/L Chloride 92.3 L (98-107) mmol/L BUN 67 H (9-20) mg/dL Creatinine 9.1 H (0.8-1.5) mg/dL Glucose 113 H (75-100) mg/dL
[2018-11-12] MEDS ORDERED: D5/0.45NS 250 ML IV SCH (18:00)
[2018-11-13] MEDS: HEPARIN SUB-Q SCH ×3 (06:18→22:18)
--- NOTE | 2018-11-13 08:00 | Hem/Onc Progress Note ---
Assessment and Plan 1. Anemia. At admission, hemoglobin was 8.1, later low and s/p Transfusion support. 2. Platelets at admission was 20. 3. White cell count was elevated. 4. PT/INR h/o slightly elevated. 5. Renal failure. 6. ALT elevated. 7. The patient has multiple medical issues. HIV 10/13 - plt better - s/p transfusion d/w dr rain and dr carrillo 10/14 - low plt - rasta ctive bleed suprapubic catheter 10/15 - plt were rising and again going down' pt had got plt transfusion LDH high - [id number] ordered smear - ordererd LDH may be high in other causes too - renal etc 10/16 - d/w path - not many schistocytes on smear - ADAMTS 13 ordered extubated 10/17 - plt low - path review ordered d/w armin monsalve 10/18 - path report pending plt low - but no active bleeding 10/19 - pt more alert - follows commands no bleeding 10/20 pt SOB - d/w Dr Monsalve and RN plt low - but no bleeding NGT+ more awake 10/21 - pt in [facility] plt >100 - more awake 10/22 - clinically better - moves all 4 limbs 10/23 - clinically stable - prbc suport 10/24 - as per RN -pt passed barium - for thickened diet pt has suprapubic got PRBC plt improving 10/25 - clinically better no active bleeding 10/26 - moving all extremity -communicating repeat cbc 10/27 - labs better - clinically improving 10/28 - plt now normal - hb better - s/p PRBC recent CKD may have a role 10/29 - pt clinically stable - director toxicology abn - electrolyte abn 10/30 - cbc improving - pt had question reg rectal tube - he will d/w other MDs 10/31 - plt better - hb better - OP follow up an option 11/01 - labs follow up 11/02 anemia d/w rn - rectal tube - decubiti suprapubic HD cath change planned 11/03/2018 pt getting HD rectal tube present 11/04- on o2 will follow labs gets HD 11/05 anemia slight SOB - on o2 HD cath 11/06 - d/w dr Shen reg pt anemia HD cath fever issues 11/07 CT shows pneumonia hb better 11/08 - anemia - d/w dr mcmullen - PRBC and follow 11/09 - pt less SOB s/p prbc d/w RN 11/10 hb better still has rectal tube 11/12 pt hb better gets HD - plt normal HIv - Id following 11/13 anemia - multifactorial low plt - resolved renal failure - HD pneumonia HIV - Patient Problems (1) Thrombocytopenia associated with AIDS Current Visit: Yes Status: Acute (2) Anemia Current Visit: Yes Status: Acute Qualifiers: Anemia type: due to chronic kidney disease Chronic kidney disease stage: unspecified stage Qualified Code(s): N18.9 - Chronic kidney disease, unspecified; D63.1 - Anemia in chronic kidney disease Subjective Date of service: 11/13/18 Principal diagnosis: anemia Interval history: says doing ok Objective - Constitutional Vitals: Last Vital Signs Temp 98.3 F 11/13/18 06:16 Pulse 122 H 11/13/18 06:16 Resp 20 11/13/18 06:16 BP 162/97 11/13/18 06:16 Pulse Ox 97 11/13/18 06:16 Pain Intensity (0-10): denies any pain General appearance: no acute distress Performance status: 4-completely disabled - EENT Eyes: EOM intact ENT: clear oral mucosa Lymph node exam: negative cervical - Neck Neck: normal ROM - Respiratory Respiratory effort: Positive: normal Respiratory: bilateral: CTA - Cardiovascular Heart Sounds: Present: S1 & S2 Extremities: No edema - Gastrointestinal General gastrointestinal: Present: soft Rectal Exam: deferred - Genitourinary Male genitourinary: Present: deferred - Integumentary Integumentary: warm - Musculoskeletal Musculoskeletal: generalized weakness - Neurologic Neurologic: moves all extremities - Labs Lab Results: Laboratory Results - last 24 hr 11/12/18 11/12/18 07:29 07:29 WBC 13.3 H RBC 2.90 L Hgb 8.2 L Hct 25.4 L MCV 88 MCH 28 MCHC 32 RDW 18.2 H Plt Count 243 Add Manual Diff Complete Total Counted 100 Seg Neuts % (Manual) 84.0 H Band Neutrophils % 0 Lymphocytes % (Manual) 3.0 L Reactive Lymphs % (Man) 0 Monocytes % (Manual) 13.0 H Eosinophils % (Manual) 0 Basophils % (Manual) 0 Metamyelocytes % 0 Myelocytes % 0 Promyelocytes % 0 Blast Cells % 0 Nucleated RBC % Not Reportable Seg Neutrophils # Man 11.2 H Band Neutrophils # 0.0 Lymphocytes # (Manual) 0.4 L Abs React Lymphs (Man) 0.0 Monocytes # (Manual) 1.7 H Eosinophils # (Manual) 0.0 Basophils # (Manual) 0.0 Metamyelocytes # 0.0 Myelocytes # 0.0 Promyelocytes # 0.0 Blast Cells # 0.0 WBC Morphology Not Reportable Hypersegmented Neuts Not Reportable Hyposegmented Neuts Not Reportable Hypogranular Neuts Not Reportable Smudge Cells Not Reportable Toxic Granulation Not Reportable Toxic Vacuolation Not Reportable Dohle Bodies Not Reportable Pelger-Huet Anomaly Not Reportable Kartik Rods Not Reportable Platelet Estimate Consistent w auto Clumped Platelets Not Reportable Plt Clumps, EDTA Not Reportable Large Platelets Not Reportable Giant Platelets Not Reportable Platelet Satelliting Not Reportable Plt Morphology Comment Not Reportable RBC Morphology Not Reportable Dimorphic RBCs Not Reportable Polychromasia Not Reportable Hypochromasia Not Reportable Poikilocytosis 1+ Anisocytosis 1+ Microcytosis Few Macrocytosis Few Spherocytes Not Reportable Pappenheimer Bodies Not Reportable Sickle Cells Not Reportable Target Cells Rare Tear Drop Cells Not Reportable Ovalocytes Not Reportable Helmet Cells Not Reportable Smith-Letcher Bodies Not Reportable Gladys Rings Not Reportable Jani Cells Not Reportable Bite Cells Not Reportable Crenated Cell Not Reportable Elliptocytes Not Reportable Acanthocytes (Spur) Not Reportable Rouleaux Not Reportable Hemoglobin C Crystals Not Reportable Schistocytes Rare Malaria parasites Not Reportable Jv Bodies Not Reportable Hem Pathologist Commnt No Sodium 136 L Potassium 5.1 H D Chloride 92.3 L Carbon Dioxide 22 Anion Gap 27 BUN 67 H Creatinine 9.1 H Estimated GFR 8 BUN/Creatinine Ratio 7 Glucose 113 H Calcium 9.1 Medications & Allergies - Medications Allergies/Adverse Reactions: Allergies Sulfa (Sulfonamide Antibiotics) Allergy (Verified 10/10/18 16:54) Unknown Home Medications: Home Medications Medication Instructions Recorded Confirmed Last Taken Type Acetaminophen [Tylenol] 1,000 mg PO Q6HR 10/10/18 10/10/18 Unknown History Amlodipine Besylate [Norvasc] 10 mg PO QDAY 10/10/18 10/10/18 Unknown History Aspirin [Adult Aspirin] 81 mg PO DAILY 10/10/18 10/10/18 Unknown History Atorvastatin [Lipitor Tab] 80 mg PO DAILY 10/10/18 10/10/18 Unknown History Losartan [Cozaar] 100 mg PO QDAY 10/10/18 10/10/18 Unknown History Multivitamin [Multiple Vitamins] 1 each PO DAILY 10/10/18 10/10/18 Unknown History hydroCHLOROthiazide [HCTZ] 25 mg PO QDAY 10/10/18 10/10/18 Unknown History Active Medications: Generic Name Dose Route Start Last Admin Trade Name Freq PRN Reason Stop Dose Admin Acetaminophen 500 mg 10/16/18 10:02 11/05/18 16:40 Tylenol PO 500 mg Q6H PRN Administration Fever >101 Albumin Human 25 gm 11/04/18 16:14 Alburx 25% (Albumin) IV CHON PRN Hypotension Albuterol 2.5 mg 10/10/18 18:12 Proventil IH Q3HRT PRN Shortness Of Breath Albuterol/Ipratropium 1 ampul 10/25/18 08:00 11/12/18 21:02 Duoneb *Not For Prn Use* IH Not Given TIDRT [facility] Amlodipine Besylate 10 mg 10/11/18 10:00 11/12/18 15:45 Norvasc PO Not Given QDAY [facility] Lipase/Protease/Amylase 1 each 10/11/18 12:58 Pancreaze 10,500 Unit FEEDTUBE PRN PRN For Clogged Feeding Tube Atovaquone 750 mg 10/18/18 10:00 11/12/18 22:11 Mepron PO 750 mg BID RUBI Administration Carvedilol 12.5 mg 10/22/18 22:00 11/12/18 22:11 Coreg PO 12.5 mg BID RUBI Administration Darunavir 800 mg 10/30/18 18:00 11/12/18 12:51 Prezista PO 800 mg QDAY RUBI Administration Emtricitabine 200 mg 11/01/18 10:00 11/11/18 11:45 Emtriva PO 200 mg Q48HR RUBI Administration Epoetin Dany 20,000 unit 11/12/18 15:00 Procrit IV .[facility] Haloperidol Lactate 5 mg 10/13/18 19:45 10/20/18 21:08 Haldol IV 5 mg Q6H PRN Administration Agitation Heparin Sodium (Porcine) 5,000 unit 11/04/18 16:15 Heparin IV CHON PRN hemodialysis Heparin Sodium (Porcine) 5,000 unit 11/07/18 22:00 11/13/18 06:18 Heparin SUB-Q 5,000 unit Q8HR RUBI Administration Hydrophilic Ointment 1 applic 10/10/18 17:53 Vaseline Lip Therapy TP Q2HR PRN Dry Lips Sodium Chloride 100 mls @ 999 mls/hr 11/12/18 09:51 Nacl 0.9% IV CHON PRN Hypotension Dextrose/Sodium Chloride 250 mls @ 75 mls/hr 11/12/18 18:00 11/13/18 01:43 D5/0.45ns IV Infused DIRECT RUBI Infusion Lansoprazole 30 mg 10/15/18 10:00 11/12/18 22:11 Prevacid Solutab FEEDTUBE Not Given BID RUBI Lorazepam 1 mg 10/13/18 19:48 10/21/18 04:09 Ativan IV 1 mg Q4H PRN Administration agitation Metoprolol Tartrate 5 mg 10/18/18 14:05 Lopressor IV Q6HR PRN Tachyarrhythmias Multi-Ingred Cream/Lotion/Oil/Oint 1 applic 10/10/18 17:53 Artificial Tears Ophth Oint OU Q4HR PRN Dry Eye(s) Multivitamins 1 each 10/11/18 10:00 11/12/18 12:52 Theragran Tab PO 1 each DAILY RUBI Administration Ondansetron HCl 4 mg 11/12/18 15:05 Zofran IV Q8H PRN N/V unrelieved by Buddy Faye Hydrophilic Mucilloid 1 each 11/08/18 18:00 11/12/18 12:52 Metamucil PO 1 each QDAY RUBI Administration Ritonavir 100 mg 10/30/18 18:00 11/12/18 12:51 Norvir PO 100 mg QDAY RUBI Administration Simple Syrup 15 ml 10/11/18 12:58 Simple Syrup FEEDTUBE PRN PRN Hypoglycemia Simple Syrup 30 ml 10/11/18 12:58 Simple Syrup FEEDTUBE PRN PRN Hypoglycemia Sodium Bicarbonate 325 mg 10/11/18 12:58 Sodium Bicarbonate FEEDTUBE PRN PRN For Clogged Feeding Tube Sodium Chloride 10 ml 10/10/18 22:00 11/12/18 22:11 Sodium Chloride Flush Syringe 10 Ml IV 10 ml BID RUBI Administration Sodium Chloride 10 ml 10/10/18 18:12 Sodium Chloride Flush Syringe 10 Ml IV PRN PRN LINE FLUSH Tenofovir Disoproxil Fumarate 300 mg 10/30/18 17:45 11/11/18 19:20 Viread PO 300 mg Q96H RUBI Administration
[2018-11-13] MEDS: DUONEB *Not for PRN Use IH SCH ×3 (08:10→22:03)
--- NOTE | 2018-11-13 08:51 | XRay Report ---
AP CHEST: HISTORY: Shortness of breath AP view of the chest demonstrates a normal mediastinal and cardiac contour with clear lungs and normal bony and soft tissue structures. Patchy airspace disease in the right lower lobe has resolved since 11/07/18. Right IJ venous catheter terminates in the cavoatrial junction. IMPRESSION: Unremarkable AP chest.
--- NOTE | 2018-11-13 09:01 | Progress Note ---
Assessment and Plan Impression * Acute renal failure. Most likely secondary to ATN * Respiratory failure * Encephalopathy * Sepsis * Anemia * Thrombocytopenia * HIV disease Recommendations * Patient remains oliguric and dialysis dependent. * Continue dialysis on MWF schedule for now * He most likely has ATN * Avoid nephrotoxins * Adjust meds for GFR less than 10 * Monitor fluid status and electrolytes closely * Consultants notes appreciated * Patient is still with a Vas-Cath. He will require PermCath. Shall discuss with vascular surgery Subjective Date of service: 11/13/18 Principal diagnosis: anemia - HIV - Renal issues Interval history: Patient is arousable. However not answering any questions. Currently in a position. Uneventful hemodialysis yesterday Objective - Vital Signs Vital signs: Vital Signs - 12hr 11/12/18 11/12/18 11/12/18 21:15 21:30 21:45 Temperature 98.2 F Pulse Rate 128 H 127 H 112 H Pulse Rate [ Anterior Bilateral Throughout] Pulse Rate [ Bilateral Throughout] Respiratory 18 Rate Respiratory Rate [Anterior Bilateral Throughout] Respiratory Rate [Bilateral Throughout] Blood Pressure 122/73 132/75 112/67 O2 Sat by Pulse Oximetry 11/12/18 11/12/18 11/13/18 21:53 22:11 06:16 Temperature 98.6 F 98.3 F Pulse Rate 128 H 128 H 122 H Pulse Rate [ Anterior Bilateral Throughout] Pulse Rate [ Bilateral Throughout] Respiratory 18 20 Rate Respiratory Rate [Anterior Bilateral Throughout] Respiratory Rate [Bilateral Throughout] Blood Pressure 108/72 108/72 162/97 O2 Sat by Pulse 96 97 Oximetry 11/13/18 08:12 Temperature Pulse Rate Pulse Rate [ 118 H Anterior Bilateral Throughout] Pulse Rate [ 128 H Bilateral Throughout] Respiratory Rate Respiratory 18 Rate [Anterior Bilateral Throughout] Respiratory 18 Rate [Bilateral Throughout] Blood Pressure O2 Sat by Pulse Oximetry - General Appearance General appearance: chronically ill, frail EENT: PERRL, mucous membranes moist Neck: no JVD, other (right IJ Vas-Cath in place) Respiratory: Present: Clear to Ascultation Cardiology: regular, normal heart rate Gastrointestinal: normal, normoactive bowel sounds Integumentary: other (no peripheral edema) - Lab 11/13/18 09:41 11/13/18 09:41 Most recent lab results Calcium 9.1 mg/dL (8.4-10.2) 11/12/18 07:29 Phosphorus 8.30 mg/dL (2.5-4.5) H 10/25/18 10:00 Magnesium 3.10 mg/dL (1.7-2.3) H 10/18/18 05:03 Urine Creatinine 30.8 mg/dL (0.1-20.0) H 10/13/18 04:43 Urine Sodium 106 mmol/L 10/13/18 04:43 Urine Total Protein 75 mg/dL (5-11.8) H 10/13/18 04:43 Medications & Allergies - Medications Allergies/Adverse Reactions: Allergies Sulfa (Sulfonamide Antibiotics) Allergy (Verified 10/10/18 16:54) Unknown Home Medications: Home Medications Medication Instructions Recorded Confirmed Last Taken Type Acetaminophen [Tylenol] 1,000 mg PO Q6HR 10/10/18 10/10/18 Unknown History Amlodipine Besylate [Norvasc] 10 mg PO QDAY 10/10/18 10/10/18 Unknown History Aspirin [Adult Aspirin] 81 mg PO DAILY 10/10/18 10/10/18 Unknown History Atorvastatin [Lipitor Tab] 80 mg PO DAILY 10/10/18 10/10/18 Unknown History Losartan [Cozaar] 100 mg PO QDAY 10/10/18 10/10/18 Unknown History Multivitamin [Multiple Vitamins] 1 each PO DAILY 10/10/18 10/10/18 Unknown History hydroCHLOROthiazide [HCTZ] 25 mg PO QDAY 10/10/18 10/10/18 Unknown History Active Medications: Generic Name Dose Route Start Last Admin Trade Name Freq PRN Reason Stop Dose Admin Acetaminophen 500 mg 10/16/18 10:02 11/05/18 16:40 Tylenol PO 500 mg Q6H PRN Administration Fever >101 Albumin Human 25 gm 11/04/18 16:14 Alburx 25% (Albumin) IV CHON PRN Hypotension Albuterol 2.5 mg 10/10/18 18:12 Proventil IH Q3HRT PRN Shortness Of Breath Albuterol/Ipratropium 1 ampul 10/25/18 08:00 11/13/18 08:10 Duoneb *Not For Prn Use* IH 1 ampul TIDRT RUBI Administration Amlodipine Besylate 10 mg 10/11/18 10:00 11/12/18 15:45 Norvasc PO Not Given QDAY RUBI Lipase/Protease/Amylase 1 each 10/11/18 12:58 Pancreaze 10,500 Unit FEEDTUBE PRN PRN For Clogged Feeding Tube Atovaquone 750 mg 10/18/18 10:00 11/12/18 22:11 Mepron PO 750 mg BID RUBI Administration Carvedilol 12.5 mg 10/22/18 22:00 11/12/18 22:11 Coreg PO 12.5 mg BID RUBI Administration Darunavir 800 mg 10/30/18 18:00 11/12/18 12:51 Prezista PO 800 mg QDAY RUBI Administration Emtricitabine 200 mg 11/01/18 10:00 11/11/18 11:45 Emtriva PO 200 mg Q48HR RUBI Administration Epoetin Dany 20,000 unit 11/12/18 15:00 Procrit IV .M[facility] Haloperidol Lactate 5 mg 10/13/18 19:45 10/20/18 21:08 Haldol IV 5 mg Q6H PRN Administration Agitation Heparin Sodium (Porcine) 5,000 unit 11/04/18 16:15 Heparin IV CHON PRN hemodialysis Heparin Sodium (Porcine) 5,000 unit 11/07/18 22:00 11/13/18 06:18 Heparin SUB-Q 5,000 unit Q8HR RUBI Administration Hydrophilic Ointment 1 applic 10/10/18 17:53 Vaseline Lip Therapy TP Q2HR PRN Dry Lips Sodium Chloride 100 mls @ 999 mls/hr 11/12/18 09:51 Nacl 0.9% IV CHON PRN Hypotension Dextrose/Sodium Chloride 250 mls @ 75 mls/hr 11/12/18 18:00 11/13/18 01:43 D5/0.45ns IV Infused DIRECT RUBI Infusion Lansoprazole 30 mg 10/15/18 10:00 11/12/18 22:11 Prevacid Solutab FEEDTUBE Not Given BID RUBI Lorazepam 1 mg 10/13/18 19:48 10/21/18 04:09 Ativan IV 1 mg Q4H PRN Administration agitation Metoprolol Tartrate 5 mg 10/18/18 14:05 Lopressor IV Q6HR PRN Tachyarrhythmias Multi-Ingred Cream/Lotion/Oil/Oint 1 applic 10/10/18 17:53 Artificial Tears Ophth Oint OU Q4HR PRN Dry Eye(s) Multivitamins 1 each 10/11/18 10:00 11/12/18 12:52 Theragran Tab PO 1 each DAILY RUBI Administration Ondansetron HCl 4 mg 11/12/18 15:05 Zofran IV Q8H PRN N/V unrelieved by Buddy Faye Hydrophilic Mucilloid 1 each 11/08/18 18:00 11/12/18 12:52 Metamucil PO 1 each QDAY RUBI Administration Ritonavir 100 mg 10/30/18 18:00 11/12/18 12:51 Norvir PO 100 mg QDAY RUBI Administration Simple Syrup 15 ml 10/11/18 12:58 Simple Syrup FEEDTUBE PRN PRN Hypoglycemia Simple Syrup 30 ml 10/11/18 12:58 Simple Syrup FEEDTUBE PRN PRN Hypoglycemia Sodium Bicarbonate 325 mg 10/11/18 12:58 Sodium Bicarbonate FEEDTUBE PRN PRN For Clogged Feeding Tube Sodium Chloride 10 ml 10/10/18 22:00 11/12/18 22:11 Sodium Chloride Flush Syringe 10 Ml IV 10 ml BID RUBI Administration Sodium Chloride 10 ml 10/10/18 18:12 Sodium Chloride Flush Syringe 10 Ml IV PRN PRN LINE FLUSH Tenofovir Disoproxil Fumarate 300 mg 10/30/18 17:45 11/11/18 19:20 Viread PO 300 mg Q96H RUBI Administration
--- NOTE | 2018-11-13 09:08 | Progress Note ---
Assessment and Plan Cultures: Blood culture 10/10/2018 no growth. Sputum culture 10/10/2018 Ana Paula albicans. Crypto Ag 10/10/2018 neg. Urine culture 10/13/2018 no growth. Blood culture 10/17/2018 no growth. Blood culture 10/20/2018: no growth Stool Occult Blood 10/23/18: positive Blood culture 10/29/18: negative Urine culture 10/31/18: Ana Paula Blood culture 11/05/18: No growth Assessment: 43 y/o male with history of HIV (unknown CD4/VL/ART intake), HTN, CVA 6 months ago at [place], Nicotine Dependence, Malnutrition; admitted on 10/10/2018 due to AMS (confusion/lethargy) and slurred speech for 24 h: 1) SIRS versus sepsis: Noted New fever Jesús, 101.7 and Leukocytosis. Etiology unknown. Fevers could be related to new infection vs IRIS. - Started HIV treatment on 10/30/2018. - CXR neg - BNP 70K - Troponin 0.2 - LDH 2242 -chest CT :Patchy airspace disease in the right lower lobe compatible with pneumonia. No evidence of pleural effusion. -repeat CXR : clear lungs and normal bony and soft tissue structures. Patchy airspace disease in the right lower lobe has resolved since 11/07/18 2) Acute hypoxemic respiratory failure: for airway protection +/- ? pneumonia. Repeat CXR no consolidations. Ana Paula in tracha sp likely a colonizer. Extubated 10/15. Continues on atovaquone as prophylaxis. Patient has sulfa allergy. 3) Acute encephalopathy: Improved.; multifactorial ?from hypertensive urgency +/- brain opportunistic infection. DDx: Neurosyphilis, VZV/CMV encephalitis versus SANDER SETTER lymphoma versus less likely PML v/s ischemic CVA (seems more likely) - CT head showed bilateral chronic ischemic changes. - Brain MRI showed areas of edema in the basal ganglia and thalami bilaterally, within the jamari and in the cerebral hemispheres bilaterally in the subcortical and deep white matter and in portions of the cortex, areas of encephalomalacia in the basal ganglia bilaterally with evidence of previous hemo rrhage or mineral deposition and numerous small foci of acute infarct in the basal ganglia bilaterally, subinsular regions bilaterally and medial temporal lobes bilaterally and possibly in the occipital cortex bilaterally. - Brain MRA showed possible dissection versus artifact at the basilar artery. Luminal irregularity at the anterior, middle, and posterior cerebral arteries as well as the carotid siphons may represent mild to moderate atherosclerotic disease. More notable narrowing at the distal right A1 segment. Differential diagnosis includes motion artifact and vasculitis. Vertebral arteries are not clearly visualized. - CSF wbc 4, rbc 113, Seg 8%, Lymph 76%, protein 55, glucose 73 which is not c/w meningitis - RPR reactive 1:32 / FTA ABs reactive, treated with penicillin and ceftriaxone but CSF VDRL Non reactive. - Toxoplasma IgG negative, CSF Toxoplasma PCR: negative - Blood CMV DNA VL=1,370, 3.1 log on ganciclovir - likely reactivation - Repeat CMV DNA PCR 10/24/2018: <200. Off ganciclovir. - Glucan Assay: negative 4) Anemia/thrombocytopenia: improving. 5) Acute on CKD or SHRUTHI ? unclear etiology: on HD. 6) DM: uncontrolled. 7) HIV/AIDS: VL 320,000 / CD4=3 on 10/11/2018. Continue HIV therapy (started on 10/30/2018): renally adjusted TDF, FTC along with dolutegravir and ritonavir boosted darunavir. Follow up Genotype and if no resistance mutations, possibly d/c both TDF and FTC and continue nuc-sparing regimen of dolutegravir along with ritonavir boosted darunavir. Recommendations: -continue atovaquone 750 mg BID -continue HIV therapy: renally adjusted TDF, FTC along with dolutegravir and ritonavir boosted darunavir -follow up HIV Genotype -repeat blood cultures for Leukocytosis and fever spikes -Start Cefepime 1 gm Q PM and Vancomycin PK dose Fevers could be related to new infection vs IRIS SERG[facility] M: [phone] O:[phone] Subjective Date of service: 11/13/18 Principal diagnosis: anemia - HIV - Renal issues Objective - Constitutional Vitals: Vital Signs Temp Pulse Resp BP Pulse Ox 98.3 F 118 H 18 162/97 97 11/13/18 06:16 11/13/18 08:12 11/13/18 08:12 11/13/18 06:16 11/13/18 06:16 Temperature -Last 24 Hours Temperature 98.3 F Temperature 98.6 F Temperature 98.2 F Temperature 98.9 F Temperature 98.4 F Temperature 99.5 F - Labs CBC & Chem 7: 11/13/18 09:41 11/13/18 09:41 Labs: Abnormal lab results 11/12/18 Range/Units 07:29 Seg Neuts % (Manual) 84.0 H (40.0-70.0) % Lymphocytes % (Manual) 3.0 L (13.4-35.0) % Monocytes % (Manual) 13.0 H (0.0-7.3) % Seg Neutrophils # Man 11.2 H (1.8-7.7) K/mm3 Lymphocytes # (Manual) 0.4 L (1.2-5.4) K/mm3 Monocytes # (Manual) 1.7 H (0.0-0.8) K/mm3
[2018-11-13] MEDS: TIVICAY PO SCH (09:09)
[2018-11-13] MEDS: MEPRON PO SCH (09:10)
[2018-11-13] MEDS: PREZISTA PO SCH (09:10)
[2018-11-13] MEDS: NORVIR PO SCH (09:11)
[2018-11-13] MEDS: COREG PO SCH ×2 (09:11→22:17)
[2018-11-13] MEDS: EMTRIVA PO SCH (09:11)
[2018-11-13] MEDS: NORVASC PO SCH (09:11)
[2018-11-13] MEDS: PREVACID SOLUTAB FEEDTUBE SCH ×2 (09:12→22:17)
[2018-11-13] MEDS: METAMUCIL PO SCH (09:12)
[2018-11-13] MEDS: THERAGRAN Tab PO SCH (09:12)
[2018-11-13] MEDS: SODIUM CHLORIDE FLUSH SYRINGE 10 ML IV SCH ×2 (09:13→22:23)
[2018-11-13 10:36] LABS: Hematocrit 24.1 % (35.5-45.6); Hemoglobin 7.8 gm/dl (11.8-15.2); Mean Corpuscular HGB Conc 33 % (32-34); Mean Corpuscular Volume 88 fl (84-94); Platelet Count 226 K/mm3 (140-440); Red Blood Count 2.73 M/mm3 (3.65-5.03); Red Cell Distribution Width 18.3 % (13.2-15.2)
[2018-11-13 10:42] LABS: Calcium 8.9 mg/dL (8.4-10.2)
[2018-11-13 11:27] LABS: Basophils % (Manual) 0 % (0.0-1.8); Total Cells Counted 100
[2018-11-13 11:29] LABS: Anisocytosis 1+; Macrocytosis Few; Platelet Estimate Consistent w Auto; Poikilocytosis 1+; Schistocytes Rare; Target Cells Rare
--- NOTE | 2018-11-13 11:30 | Progress Note ---
Assessment and Plan Assessment and plan: patient is 43 YO Male with HIV, hypertension, previous stroke, Nicotine Dependence, presents to ED for evaluation. Patient was confused and lethargic and unable to provide history. He was seen and evaluated in ED and found to be in distress and unable to protect his airway and was therefore intubated, placed on ventilator in ER then admitted MR brain 10/11 1. Study somewhat degraded by motion artifact. 2 Areas of edema in the basal ganglia and thalami bilaterally, within the jamari and in the cerebral hemispheres bilaterally in the subcortical and deep white matter and in portions of the cortex. 3. Areas of encephalomalacia in the basal ganglia bilaterally with evidence of previous hemorrhage or mineral deposition. 4. Numerous small foci of acute infarct in the basal ganglia bilaterally, subinsular regions bilaterally and medial temporal lobes bilaterally and possibly in the occipital cortex bilaterally. The above findings may be secondary to an infectious or noninfectious etiology with a component of vasculopathy or vasculitis resulting in infarcts. Viral encephalopathies and lymphoma would need to be considered in this patient with history of HIV. Neuro ams acute metabolic encephalopathy improving /Acute CVA with Bilateral infarcts with edema Consulted Neurology, he was evaluated by DR. Valentine. mentation is improved, and this is likely his new baseline Dysphagia/ moderate malnutrition -MBS 10/23, recommended pureed with nectar thickened liquids, continue this diet -[facility]orem[facility] floor consulted Hematology Anemia- stable, thrombocytopenia, leukocytosis, coagulopathy; now resolved -Status post platelet (3 units) and prbc (6 units ) transfusion, the patient had only few schistocytes on smear, ADAMS13 91% activity , plt count has recovered ID HIV/AIDS, CD4 count 3, HIV viral load 320,000 acute bacterial PNA, CMV viremia toxo neg, CSF neg Whole blood cmv PCR was positive at 1374 abx and a antiviral per ID high fever, cxr shows improvement of vasc congestion, fup blood cx, femoral vas cath removed 11/06, now has IJ vas cath -he was put back on HAART, he likely has component of IRIS causing fevers and sob -CT on 11/06 confirms patchy infiltrate IRIS vs pna, abx per ID, repeat cxr today -still having high fevers, fup repeat imaging, blood cultures, case dw ID FEN/Renal SHRUTHI- ATN, Hyperkalemia, urinary retention sp SPC on 10/12 cont HD per nephrology, no signs of renal recovery -will need permacath prior to dc, but patient continues to have have fever on and off Pulm acute hypoxic resp failure on MV> 96 hours self extubated 10/16, continue supplemental oxygen CTA neg for PE on 11/06 CVS /Hypertensive urgency and acute systolic CHF He was treated with Cardene drip which was weaned off. Optimize medications for CHF on coreg, no mik due to high K, fluid removal by dialysis Skin Stage 2 sacral wound decub . The wound was measured at 5.0x4.0. Small serous sanguineous drainage noticed from the wound. no evidence of infection, cont wound care DVT ppx- heparin sq Dispo: Needs HD and home health set up before he can be dc History Interval history: Patient continues to have weakness of his voice, had high fever today Review of systems Constitutional: ,overall malaise CVS: No chest pain, no orthopnea, no dyspnea on exertion, no pedal edema GI: No abdominal pain, no diarrhea, no vomiting, no constipation Respiratory: sob improved, no wheezing, denies cough Hospitalist Physical - Physical exam Narrative exam: General.: Appears chronically ill, weak voice HEENT: Moist mucous membranes, extraocular muscles intact, no lymphadenopathy Neck: supple Cardiac: S1-S2 heard Lungs: rales Abdomen: soft , nontender, nondistended, bowel sounds positive Extremities: no edema clubbing or cyanosis Skin: no rash or lesions Neurologic: no gross focal deficits, generalized weakness Psych: calm, and cooperative - Constitutional Vitals: Temp Pulse Resp BP Pulse Ox 98.3 F 128 H 18 162/97 97 11/13/18 06:16 11/13/18 09:11 11/13/18 08:12 11/13/18 09:11 11/13/18 06:16 General appearance: Present: no acute distress Results - Labs CBC & Chem 7: 11/14/18 07:09 11/13/18 09:41 Labs: Laboratory Last Values WBC 14.3 K/mm3 (4.5-11.0) H 11/13/18 09:41 RBC 2.73 M/mm3 (3.65-5.03) L 11/13/18 09:41 Hgb 7.8 gm/dl (11.8-15.2) L 11/13/18 09:41 Hct 24.1 % (35.5-45.6) L 11/13/18 09:41 MCV 88 fl (84-94) 11/13/18 09:41 MCH 29 pg (28-32) 11/13/18 09:41 MCHC 33 % (32-34) 11/13/18 09:41 RDW 18.3 % (13.2-15.2) H 11/13/18 09:41 Plt Count 226 K/mm3 (140-440) 11/13/18 09:41 Lymph % (Auto) Research Technician 11/13/18 09:41 [place] % (Auto) Research Technician 11/13/18 09:41 Eos % (Auto) Research Technician 11/13/18 09:41 Baso % (Auto) Research Technician 11/13/18 09:41 Lymph # Research Technician 11/13/18 09:41 [place] # Research Technician 11/13/18 09:41 Eos # Research Technician 11/13/18 09:41 Baso # Research Technician 11/13/18 09:41 Add Manual Diff Complete 11/13/18 09:41 Total Counted 100 11/13/18 09:41 Seg Neutrophils % Research Technician 11/13/18 09:41 Seg Neuts % (Manual) 86.0 % (40.0-70.0) H 11/13/18 09:41 Band Neutrophils % 0 % 11/13/18 09:41 Lymphocytes % (Manual) 8.0 % (13.4-35.0) L 11/13/18 09:41 Reactive Lymphs % (Man) 0 % 11/13/18 09:41 Monocytes % (Manual) 5.0 % (0.0-7.3) 11/13/18 09:41 Eosinophils % (Manual) 1.0 % (0.0-4.3) 11/13/18 09:41 Basophils % (Manual) 0 % (0.0-1.8) 11/13/18 09:41 Metamyelocytes % 0 % 11/13/18 09:41 Myelocytes % 0 % 11/13/18 09:41 Promyelocytes % 0 % 11/13/18 09:41 Blast Cells % 0 % 11/13/18 09:41 Nucleated RBC % Not Reportable 11/13/18 09:41 Seg Neutrophils # Research Technician 11/13/18 09:41 Seg Neutrophils # Man 12.3 K/mm3 (1.8-7.7) H 11/13/18 09:41 Band Neutrophils # 0.0 K/mm3 11/13/18 09:41 Abs Lymphs (Manual) 267 cells/uL (850-3900) L 10/11/18 17:36 Lymphocytes # (Manual) 1.1 K/mm3 (1.2-5.4) L 11/13/18 09:41 Abs React Lymphs (Man) 0.0 K/mm3 11/13/18 09:41 Monocytes # (Manual) 0.7 K/mm3 (0.0-0.8) 11/13/18 09:41 Eosinophils # (Manual) 0.1 K/mm3 (0.0-0.4) 11/13/18 09:41 Basophils # (Manual) 0.0 K/mm3 (0.0-0.1) 11/13/18 09:41 Metamyelocytes # 0.0 K/mm3 11/13/18 09:41 Myelocytes # 0.0 K/mm3 11/13/18 09:41 Promyelocytes # 0.0 K/mm3 11/13/18 09:41 Blast Cells # 0.0 K/mm3 11/13/18 09:41 Pathologist Review 10/15/18 03:14 WBC Morphology Not Reportable 11/13/18 09:41 Hypersegmented Neuts Not Reportable 11/13/18 09:41 Hyposegmented Neuts Not Reportable 11/13/18 09:41 Hypogranular Neuts Not Reportable 11/13/18 09:41 Smudge Cells Not Reportable 11/13/18 09:41 Toxic Granulation Not Reportable 11/13/18 09:41 Toxic Vacuolation Not Reportable 11/13/18 09:41 Dohle Bodies Not Reportable 11/13/18 09:41 Pelger-Huet Anomaly Not Reportable 11/13/18 09:41 Kartik Rods Not Reportable 11/13/18 09:41 Platelet Estimate Consistent w auto 11/13/18 09:41 Clumped Platelets Not Reportable 11/13/18 09:41 Plt Clumps, EDTA Not Reportable 11/13/18 09:41 Large Platelets Not Reportable 11/13/18 09:41 Giant Platelets Not Reportable 11/13/18 09:41 Platelet Satelliting Not Reportable 11/13/18 09:41 Plt Morphology Comment Not Reportable 11/13/18 09:41 RBC Morphology Not Reportable 11/13/18 09:41 Dimorphic RBCs Not Reportable 11/13/18 09:41 Polychromasia Not Reportable 11/13/18 09:41 Hypochromasia Not Reportable 11/13/18 09:41 Poikilocytosis 1+ 11/13/18 09:41 Anisocytosis 1+ 11/13/18 09:41 Microcytosis Few 11/13/18 09:41 Macrocytosis Few 11/13/18 09:41 Spherocytes Not Reportable 11/13/18 09:41 Pappenheimer Bodies Not Reportable 11/13/18 09:41 Sickle Cells Not Reportable 11/13/18 09:41 Target Cells Rare 11/13/18 09:41 Tear Drop Cells Not Reportable 11/13/18 09:41 Ovalocytes Not Reportable 11/13/18 09:41 Stomatocytes Few 11/10/18 06:54 Helmet Cells Not Reportable 11/13/18 09:41 [place] Bodies Not Reportable 11/13/18 09:41 [place] Rings Not Reportable 11/13/18 09:41 Jani Cells Not Reportable 11/13/18 09:41 Bite Cells Not Reportable 11/13/18 09:41 Crenated Cell Not Reportable 11/13/18 09:41 Elliptocytes Not Reportable 11/13/18 09:41 Acanthocytes (Spur) Not Reportable 11/13/18 09:41 Rouleaux Not Reportable 11/13/18 09:41 Hemoglobin C Crystals Not Reportable 11/13/18 09:41 Schistocytes Rare 11/13/18 09:41 Malaria parasites Not Reportable 11/13/18 09:41 Jv Bodies Not Reportable 11/13/18 09:41 Hem Pathologist Commnt No 11/13/18 09:41 PT 17.7 Sec. (12.2-14.9) H 11/06/18 13:18 INR 1.36 (0.87-1.13) H 11/06/18 13:18 APTT 30.6 Sec. (24.2-36.6) 11/06/18 13:18 Thrombin Time 16.9 Sec. (15.1-19.6) 10/10/18 15:02 Heparin Anti-Xa Level < 0.10 U.I./ml (0.3-0.7) L 11/07/18 21:31 Heparin Anti-Xa, Unfract Negative (Negative) 10/25/18 05:59 POC ABG pH 7.514 (7.35-7.45) H 11/03/18 16:12 POC ABG pCO2 32.0 (35-45) L 10/21/18 09:49 POC ABG pO2 62 (80-105) L 11/03/18 16:12 POC ABG HCO3 23.2 (22-26 mml/L) 11/03/18 16:12 POC ABG Total CO2 24 (23-27mmol/L) 11/03/18 16:12 POC ABG O2 Sat 94 11/03/18 16:12 POC ABG Base Excess 0 ((-2) - (+3)mmol/L) 11/03/18 16:12 FiO2 4 % 11/03/18 16:12 Sodium 139 mmol/L (137-145) 11/13/18 09:41 Potassium 4.3 mmol/L (3.6-5.0) 11/13/18 09:41 Chloride 95.1 mmol/L (98-107) L 11/13/18 09:41 Carbon Dioxide 26 mmol/L (22-30) 11/13/18 09:41 Anion Gap 22 mmol/L 11/13/18 09:41 BUN 31 mg/dL (9-20) H 11/13/18 09:41 Creatinine 5.0 mg/dL (0.8-1.5) H 11/13/18 09:41 Estimated GFR 15 ml/min 11/13/18 09:41 BUN/Creatinine Ratio 6 % 11/13/18 09:41 Glucose 151 mg/dL (75-100) H 11/13/18 09:41 POC Glucose 139 (70-105) H 10/20/18 13:07 Osmolality 338 Mosm/kg 10/11/18 17:35 Lactic Acid 1.80 mmol/L (0.7-2.0) 10/12/18 05:59 Uric Acid 13.4 mg/dL (3.5-7.6) H 10/11/18 17:36 Calcium 8.9 mg/dL (8.4-10.2) 11/13/18 09:41 Phosphorus 8.30 mg/dL (2.5-4.5) H 10/25/18 10:00 Magnesium 3.10 mg/dL (1.7-2.3) H 10/18/18 05:03 Iron 147 ug/dL (49-181) 10/11/18 17:36 TIBC 236 mcg/dL (250-450) L 10/11/18 17:36 Ferritin 29364.0 ng/mL (13.0-400.0) H 10/11/18 17:35 Total Bilirubin 0.40 mg/dL (0.1-1.2) 10/25/18 10:00 Direct Bilirubin 0.2 mg/dL (0-0.2) 10/16/18 04:07 Indirect Bilirubin 0.3 mg/dL 10/16/18 04:07 AST 46 units/L (5-40) H 10/25/18 10:00 ALT 21 units/L (7-56) 10/25/18 10:00 Alkaline Phosphatase 102 units/L (35-129) 10/25/18 10:00 Ammonia 25.0 umol/L (25-60) 10/17/18 14:59 Lactate Dehydrogenase 925 units/L (91-180) H 10/22/18 05:51 Troponin T 0.357 ng/mL (0.00-0.029) H* 11/06/18 05:54 NT-Pro-B Natriuret Pep 58607 pg/mL (0-450) H 10/10/18 15:42 Total Protein 8.1 g/dL (6.3-8.2) 10/25/18 10:00 Albumin 3.5 g/dL (3.9-5) L 10/25/18 10:00 Albumin/Globulin Ratio 0.8 % 10/25/18 10:00 Triglycerides 306 mg/dL (2-149) H 11/05/18 11:29 Cholesterol 145 mg/dL (50-199) 11/05/18 11:29 LDL Cholesterol Direct 89 mg/dL (50-130) 11/05/18 11:29 HDL Cholesterol 25 mg/dL (40-59) L 11/05/18 11:29 Cholesterol/HDL Ratio 5.80 % 11/05/18 11:29 Serotonin Release Assay See scanned result 10/25/18 05:59 Vitamin B12 912.3 pg/mL (211-911) H 10/14/18 08:51 Folate 8.32 ng/mL (7.3-26.0) 10/14/18 08:51 PTH Intact 388.7 pg/mL (15-65) H 10/25/18 10:00 Urine Creatinine 30.8 mg/dL (0.1-20.0) H 10/13/18 04:43 Urine Sodium 106 mmol/L 10/13/18 04:43 Urine Total Protein 75 mg/dL (5-11.8) H 10/13/18 04:43 CSF Appearance Clear 10/16/18 15:00 CSF Color Colorless 10/16/18 15:00 CSF WBC 4 /mm3 (1-10) 10/16/18 15:00 CSF RBC 113 /mm3 (0-0) 10/16/18 15:00 CSF Seg Neutrophils 8.0 % (0-6) 10/16/18 15:00 CSF Lymphocytes % 76.0 % (40-80) 10/16/18 15:00 CSF Reactive Lymphs 2.0 % 10/16/18 15:00 CSF Monocytes % 14.0 % (15-45) 10/16/18 15:00 CSF Eosinophils % 0 % 10/16/18 15:00 CSF Basophils 0 % 10/16/18 15:00 CSF Pathologist Review C 10/16/18 15:00 CSF Glucose 73 mg/dL 10/16/18 15:00 CSF Total Protein 55 mg/dL 10/16/18 15:00 CSF VDRL Nonreactive (Nonreactive) 10/16/18 15:00 Random Vancomycin 18.9 ug/mL (0-40.0) 10/29/18 07:13 Immunofix Electrophor see below 10/11/18 17:36 RENO Screen Negative (Negative) 10/21/18 15:07 Proteinase 3 (PR3) Ab <1.0 AI (<1.0) 10/21/18 15:07 Myeloperoxidase Ab <1.0 AI (<1.0) 10/21/18 15:07 Heparin-induced Plt Ab Negative (Negative) 10/25/18 05:59 UF Heparin High Dose 0 % Release 10/25/18 05:59 VJ UFH Low Dose 0.1 0 % Release 10/25/18 05:59 VJ UFH Low Dose 0.5 14 % Release 10/25/18 05:59 Lymph Enumerat CD4/CD8 0.01 (0.86-5.00) L 10/11/18 17:36 % CD3 Cells 85 % (57-85) 10/11/18 17:36 Absolute CD3 Count 226 cells/uL (840-3060) L 10/11/18 17:36 % CD4 Cells 1 % (30-61) L 10/11/18 17:36 Absolute CD4 Count 3 cells/uL (490-1740) L 10/11/18 17:36 % CD8 Cells 82 % (12-42) H 10/11/18 17:36 Absolute CD8 Count 228 cells/uL (180-1170) 10/11/18 17:36 % CD19 Cells 6 % (6-29) 10/11/18 17:36 Absolute CD19 Count 16 cells/uL (110-660) L 10/11/18 17:36 RPR Titer 1:32 10/11/18 17:37 RPR Reactive (Nonreactive) 10/11/18 17:37 T.pallidum Ab (FTA-ABS) Reactive (Nonreactive) H 10/12/18 Unknown CMV DNA PCR log music copyist/mL See scanned result 10/24/18 17:47 Hepatitis A IgM Ab Non-reactive (NonReactive) 10/11/18 17:34 Hep Bs Antigen Non-reactive (Negative) 10/11/18 17:34 Hep B Core IgM Ab Non-reactive (NonReactive) 10/11/18 17:34 Hepatitis C Antibody Non-reactive (NonReactive) 10/11/18 17:34 HIV-1 RNA PCR copies/ml [id number] Copies/mL H 10/11/18 17:36 HIV-1 RNA (PCR) log 5.51 Log cps/mL H 10/11/18 17:36 Toxoplasma IgG Ab <7.20 IU/mL (<7.20) 10/13/18 07:54 Miscellaneous Test Flexitest 1 10/31/18 06:43 Blood Type A POSITIVE 11/08/18 11:28 Antibody Screen Negative 11/08/18 11:28 Crossmatch See Detail 11/08/18 11:28 Active Medications - Current Medications Current Medications: Generic Name Dose Route Start Last Admin Trade Name Freq PRN Reason Stop Dose Admin Acetaminophen 500 mg 10/16/18 10:02 11/05/18 16:40 Tylenol PO 500 mg Q6H PRN Administration Fever >101 Albumin Human 25 gm 11/04/18 16:14 Alburx 25% (Albumin) IV CHON PRN Hypotension Albuterol 2.5 mg 10/10/18 18:12 Proventil IH Q3HRT PRN Shortness Of Breath Albuterol/Ipratropium 1 ampul 10/25/18 08:00 11/13/18 08:10 Duoneb *Not For Prn Use* IH 1 ampul TIDRT RUBI Administration Amlodipine Besylate 10 mg 10/11/18 10:00 11/13/18 09:11 Norvasc PO 10 mg QDAY RUBI Administration Lipase/Protease/Amylase 1 each 10/11/18 12:58 Pancreazkarlos Reed 10,500 Unit FEEDTUBE PRN PRN For Clogged Feeding Tube Atovaquone 750 mg 10/18/18 10:00 11/13/18 09:10 Mepron PO 750 mg BID RUBI Administration Carvedilol 12.5 mg 10/22/18 22:00 11/13/18 09:11 Coreg PO 12.5 mg BID RUBI Administration Darunavir 800 mg 10/30/18 18:00 11/13/18 09:10 Prezista PO 800 mg QDAY RUBI Administration Emtricitabine 200 mg 11/01/18 10:00 11/13/18 09:11 Emtriva PO 200 mg Q48HR RUBI Administration Epoetin Dany 20,000 unit 11/12/18 15:00 Procrit IV [place] [place] Haloperidol Lactate 5 mg 10/13/18 19:45 10/20/18 21:08 Haldol IV 5 mg Q6H PRN Administration Agitation Heparin Sodium (Porcine) 5,000 unit 11/04/18 16:15 Heparin IV CHON PRN hemodialysis Heparin Sodium (Porcine) 5,000 unit 11/07/18 22:00 11/13/18 06:18 Heparin SUB-Q 5,000 unit Q8HR RUBI Administration Hydrophilic Ointment 1 applic 10/10/18 17:53 Vaseline Lip Therapy TP Q2HR PRN Dry Lips Sodium Chloride 100 mls @ 999 mls/hr 11/12/18 09:51 Nacl 0.9% IV CHON PRN Hypotension Dextrose/Sodium Chloride 250 mls @ 75 mls/hr 11/12/18 18:00 11/13/18 01:43 D5/0.45ns IV Infused DIRECT RUBI Infusion Lansoprazole 30 mg 10/15/18 10:00 11/13/18 09:12 Prevacid Solutab FEEDTUBE 30 mg BID RUBI Administration Lorazepam 1 mg 10/13/18 19:48 10/21/18 04:09 Ativan IV 1 mg Q4H PRN Administration agitation Metoprolol Tartrate 5 mg 10/18/18 14:05 Lopressor IV Q6HR PRN Tachyarrhythmias Multi-Ingred Cream/Lotion/Oil/Oint 1 applic 10/10/18 17:53 Artificial Tears Ophth Oint OU Q4HR PRN Dry Eye(s) Multivitamins 1 each 10/11/18 10:00 11/13/18 09:12 Theragran Tab PO 1 each DAILY RUBI Administration Ondansetron HCl 4 mg 11/12/18 15:05 Zofran IV Q8H PRN N/V unrelieved by Buddy Psboo Hydrophilic Mucilloid 1 each 11/08/18 18:00 11/13/18 09:12 Metamucil PO 1 each QDAY RUBI Administration Ritonavir 100 mg 10/30/18 18:00 11/13/18 09:11 Norvir PO 100 mg QDAY RUBI Administration Simple Syrup 15 ml 10/11/18 12:58 Simple Syrup FEEDTUBE PRN PRN Hypoglycemia Simple Syrup 30 ml 10/11/18 12:58 Simple Syrup FEEDTUBE PRN PRN Hypoglycemia Sodium Bicarbonate 325 mg 10/11/18 12:58 Sodium Bicarbonate FEEDTUBE PRN PRN For Clogged Feeding Tube Sodium Chloride 10 ml 10/10/18 22:00 11/13/18 09:13 Sodium Chloride Flush Syringe 10 Ml IV 10 ml BID RUBI Administration Sodium Chloride 10 ml 10/10/18 18:12 Sodium Chloride Flush Syringe 10 Ml IV PRN PRN LINE FLUSH Tenofovir Disoproxil Fumarate 300 mg 10/30/18 17:45 11/11/18 19:20 Viread PO 300 mg Q96H RUBI Administration Nutrition/Malnutrition Assess - Dietary Evaluation Nutrition/Malnutrition Findings: Nutrition Notes Start: 10/11/18 11:14 Freq: Status: Active Protocol: Document 11/08/18 11:32 TW (Rec: 11/08/18 11:39 TW [id number]) Co-Sign 11/08/18 11:32 LP Nutrition Notes Initial or Follow up Reassessment Current Diagnosis Acute Kidney Injury,CKD(stage I-IV),Hypertension,Stroke Other Pertinent Diagnosis on HD, Acute encephalopathy, HIV/AIDS, Syphilis, dysphagia Current Diet Pureed Labs/Tests Reviewed Pertinent Medications Reviewed Height 5 ft 9 in Weight 51.5 kg [place] Body Weight (kg) 72.72 BMI 16.7 Subjective/Other Information F/U intakes. Mayi reports pt eats >75% of breakfast and dinner but does not eat much lunch when she feeds him. Mayi agrees an ONS would be good for pt at lunch time. Percent of energy/protein needs met: >75%/>75% Burn Absent Trauma Absent Current % PO Good (75-100%) #1 Nutrition Diagnosis Inadequate oral intake Diagnosis Progress(for reassessment Continues documentation) Is patient on ventilator? No Is Patient Ambulatory and/or Out of Bed No REE-([facility]-confined to bed) 1689.864 Kcal/Kg value to use for calculation 40 Approximate Energy Requirements Using 0 kcal/Kg Calculation Used for Recommendations Kcal/kg Additional Notes Pro needs 1.2-1.5g/k-79g/ day Fluid needs 1ml/kcal Nutrition Intervention Change Diet Order: Advance diet when medically able Add Supplement/Snack (indicate name/kcal Nepro 1 daily /protein ) Provides kCal: 425 Provides Protein (gm) 19 Goal #1 Meet at least 75% of calorie and protein needs via PO and ONS intakes Anticipated Discharge Needs: Pureed, Renal diet Follow-Up By: 11/13/18 Additional Comments Follow for PO and ONS intakes
[2018-11-13] MEDS: TYLENOL PO PRN ×2 (12:13→22:28)
[2018-11-13] MEDS ORDERED: VANCOMYCIN PHARMACY TO DOSE IV SCH (13:00)
[2018-11-13] MEDS ORDERED: VANCOMYCIN/NS 1 GM/250 ML 1 GM/250 ML BAG IV ONE (14:00)
[2018-11-13] MEDS ORDERED: BACTRIM DS PO SCH (17:00)
[2018-11-13] MEDS: MAXIPIME/NS 1 GM/100 ML 1 GM/100 ML BAG IV SCH (17:09)
[2018-11-14] MEDS: HEPARIN SUB-Q SCH ×3 (06:26→21:55)
--- NOTE | 2018-11-14 07:40 | Hem/Onc Progress Note ---
Assessment and Plan 1. Anemia. At admission, hemoglobin was 8.1, later low and s/p Transfusion support. 2. Platelets at admission was 20. 3. White cell count was elevated. 4. PT/INR h/o slightly elevated. 5. Renal failure. 6. ALT elevated. 7. The patient has multiple medical issues. HIV 10/13 - plt better - s/p transfusion d/w dr rain and dr carrillo 10/14 - low plt - rasta ctive bleed suprapubic catheter 10/15 - plt were rising and again going down' pt had got plt transfusion LDH high - [id number] ordered smear - ordererd LDH may be high in other causes too - renal etc 10/16 - d/w path - not many schistocytes on smear - ADAMTS 13 ordered extubated 10/17 - plt low - path review ordered d/w armin monsalve 10/18 - path report pending plt low - but no active bleeding 10/19 - pt more alert - follows commands no bleeding 10/20 pt SOB - d/w Dr Monsalve and RN plt low - but no bleeding NGT+ more awake 10/21 - pt in [facility] plt >100 - more awake 10/22 - clinically better - moves all 4 limbs 10/23 - clinically stable - prbc suport 10/24 - as per RN -pt passed barium - for thickened diet pt has suprapubic got PRBC plt improving 10/25 - clinically better no active bleeding 10/26 - moving all extremity -communicating repeat cbc 10/27 - labs better - clinically improving 10/28 - plt now normal - hb better - s/p PRBC recent CKD may have a role 10/29 - pt clinically stable - 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 - electrolyte abn 10/30 - cbc improving - pt had question reg rectal tube - he will d/w other MDs 10/31 - plt better - hb better - OP follow up an option 11/01 - labs follow up 11/02 anemia d/w rn - rectal tube - decubiti suprapubic HD cath change planned 11/03/2018 pt getting HD rectal tube present 11/04- on o2 will follow labs gets HD 11/05 anemia slight SOB - on o2 HD cath 11/06 - d/w dr Shen reg pt anemia HD cath fever issues 11/07 CT shows pneumonia hb better 11/08 - anemia - d/w dr brewster - PRBC and follow 11/09 - pt less SOB s/p prbc d/w RN 11/10 hb better still has rectal tube 11/12 pt hb better gets HD - plt normal HIv - Id following 11/13 anemia - multifactorial low plt - resolved renal failure - HD pneumonia HIV 11/14 anemia d/w dr Brewster - Physical therapy off rectal tube HD - procrit - Patient Problems (1) Thrombocytopenia associated with AIDS Current Visit: Yes Status: Acute (2) Anemia Current Visit: Yes Status: Acute Qualifiers: Anemia type: due to chronic kidney disease Chronic kidney disease stage: unspecified stage Qualified Code(s): N18.9 - Chronic kidney disease, unspecified; D63.1 - Anemia in chronic kidney disease Subjective Date of service: 11/14/18 Principal diagnosis: anemia - hiv Interval history: no fever Objective - Constitutional Vitals: Last Vital Signs Temp 98.4 F 11/14/18 04:21 Pulse 118 H 11/14/18 04:21 Resp 18 11/14/18 04:21 BP 128/86 11/14/18 04:21 Pulse Ox 100 11/14/18 04:21 Pain Intensity (0-10): denies any pain General appearance: no acute distress Performance status: 4-completely disabled - EENT Eyes: EOM intact ENT: clear oral mucosa Lymph node exam: negative cervical - Neck Neck: normal ROM - Respiratory Respiratory effort: Positive: normal Respiratory: bilateral: CTA - Cardiovascular Heart Sounds: Present: S1 & S2 Extremities: No edema - Gastrointestinal General gastrointestinal: Present: soft, non-tender Rectal Exam: deferred - Genitourinary Male genitourinary: Present: deferred - Integumentary Integumentary: warm - Musculoskeletal Musculoskeletal: generalized weakness - Neurologic Neurologic: other (bed bound) - Labs Lab Results: Laboratory Results - last 24 hr 11/13/18 11/13/18 09:41 09:41 WBC 14.3 H RBC 2.73 L Hgb 7.8 L Hct 24.1 L MCV 88 MCH 29 MCHC 33 RDW 18.3 H Plt Count 226 Lymph % (Auto) Jailer Chief [place] % (Auto) Jailer Chief Eos % (Auto) Jailer Chief Baso % (Auto) Jailer Chief Lymph # Jailer Chief [place] # Jailer Chief Eos # Jailer Chief Baso # Jailer Chief Add Manual Diff Complete Total Counted 100 Seg Neutrophils % Jailer Chief Seg Neuts % (Manual) 86.0 H Band Neutrophils % 0 Lymphocytes % (Manual) 8.0 L Reactive Lymphs % (Man) 0 Monocytes % (Manual) 5.0 Eosinophils % (Manual) 1.0 Basophils % (Manual) 0 Metamyelocytes % 0 Myelocytes % 0 Promyelocytes % 0 Blast Cells % 0 Nucleated RBC % Not Reportable Seg Neutrophils # Jailer Chief Seg Neutrophils # Man 12.3 H Band Neutrophils # 0.0 Lymphocytes # (Manual) 1.1 L Abs React Lymphs (Man) 0.0 Monocytes # (Manual) 0.7 Eosinophils # (Manual) 0.1 Basophils # (Manual) 0.0 Metamyelocytes # 0.0 Myelocytes # 0.0 Promyelocytes # 0.0 Blast Cells # 0.0 WBC Morphology Not Reportable Hypersegmented Neuts Not Reportable Hyposegmented Neuts Not Reportable Hypogranular Neuts Not Reportable Smudge Cells Not Reportable Toxic Granulation Not Reportable Toxic Vacuolation Not Reportable Dohle Bodies Not Reportable Pelger-Huet Anomaly Not Reportable Kartik Rods Not Reportable Platelet Estimate Consistent w auto Clumped Platelets Not Reportable Plt Clumps, EDTA Not Reportable Large Platelets Not Reportable Giant Platelets Not Reportable Platelet Satelliting Not Reportable Plt Morphology Comment Not Reportable RBC Morphology Not Reportable Dimorphic RBCs Not Reportable Polychromasia Not Reportable Hypochromasia Not Reportable Poikilocytosis 1+ Anisocytosis 1+ Microcytosis Few Macrocytosis Few Spherocytes Not Reportable Pappenheimer Bodies Not Reportable Sickle Cells Not Reportable Target Cells Rare Tear Drop Cells Not Reportable Ovalocytes Not Reportable Helmet Cells Not Reportable Smith-Rome Bodies Not Reportable Grelton Rings Not Reportable Jani Cells Not Reportable Bite Cells Not Reportable Crenated Cell Not Reportable Elliptocytes Not Reportable Acanthocytes (Spur) Not Reportable Rouleaux Not Reportable Hemoglobin C Crystals Not Reportable Schistocytes Rare Malaria parasites Not Reportable Jv Bodies Not Reportable Hem Pathologist Commnt No Sodium 139 Potassium 4.3 Chloride 95.1 L Carbon Dioxide 26 Anion Gap 22 BUN 31 H Creatinine 5.0 H Estimated GFR 15 BUN/Creatinine Ratio 6 Glucose 151 H Calcium 8.9 Medications & Allergies - Medications Allergies/Adverse Reactions: Allergies Sulfa (Sulfonamide Antibiotics) Allergy (Verified 10/10/18 16:54) Unknown Home Medications: Home Medications Medication Instructions Recorded Confirmed Last Taken Type Acetaminophen [Tylenol] 1,000 mg PO Q6HR 10/10/18 10/10/18 Unknown History Amlodipine Besylate [Norvasc] 10 mg PO QDAY 10/10/18 10/10/18 Unknown History Aspirin [Adult Aspirin] 81 mg PO DAILY 10/10/18 10/10/18 Unknown History Atorvastatin [Lipitor Tab] 80 mg PO DAILY 10/10/18 10/10/18 Unknown History Losartan [Cozaar] 100 mg PO QDAY 10/10/18 10/10/18 Unknown History Multivitamin [Multiple Vitamins] 1 each PO DAILY 10/10/18 10/10/18 Unknown Hist ory hydroCHLOROthiazide [HCTZ] 25 mg PO QDAY 10/10/18 10/10/18 Unknown History Active Medications: Generic Name Dose Route Start Last Admin Trade Name Freq PRN Reason Stop Dose Admin Acetaminophen 500 mg 10/16/18 10:02 11/13/18 22:28 Tylenol PO 500 mg Q6H PRN Administration Fever >101 Albumin Human 25 gm 11/04/18 16:14 Alburx 25% (Albumin) IV CHON PRN Hypotension Albuterol 2.5 mg 10/10/18 18:12 Proventil IH Q3HRT PRN Shortness Of Breath Albuterol/Ipratropium 1 ampul 10/25/18 08:00 11/13/18 22:03 Duoneb *Not For Prn Use* IH 1 ampul TIDRT [facility] Administration Amlodipine Besylate 10 mg 10/11/18 10:00 11/13/18 09:11 Norvasc PO 10 mg QDAY [facility] Administration Lipase/Protease/Amylase 1 each 10/11/18 12:58 Pancrebecka Reed 10,500 Unit FEEDTUBE PRN PRN For Clogged Feeding Tube Atovaquone 1,500 mg 11/14/18 10:00 Mepron PO QDAY [facility] Carvedilol 12.5 mg 10/22/18 22:00 11/13/18 22:17 Coreg PO 12.5 mg BID RUBI Administration Darunavir 800 mg 10/30/18 18:00 11/13/18 09:10 Prezista PO 800 mg QDAY [facility] Administration Emtricitabine 200 mg 11/01/18 10:00 11/13/18 09:11 Emtriva PO 200 mg Q48HR RUBI Administration Epoetin Dany 20,000 unit 11/12/18 15:00 Procrit IV .MWF RUBI Heparin Sodium (Porcine) 5,000 unit 11/04/18 16:15 Heparin IV CHON PRN hemodialysis Heparin Sodium (Porcine) 5,000 unit 11/07/18 22:00 11/14/18 06:26 Heparin SUB-Q 5,000 unit Q8HR RUBI Administration Hydrophilic Ointment 1 applic 10/10/18 17:53 Vaseline Lip Therapy TP Q2HR PRN Dry Lips Sodium Chloride 100 mls @ 999 mls/hr 11/12/18 09:51 Nacl 0.9% IV CHON PRN Hypotension Dextrose/Sodium Chloride 250 mls @ 75 mls/hr 11/12/18 18:00 11/13/18 01:43 D5/0.45ns IV Infused DIRECT RUBI Infusion Cefepime HCl 1 gm in 100 mls @ 200 mls/hr 11/13/18 18:00 11/13/18 17:09 Maxipime/Ns 1 Gm/100 Ml IV 200 mls/hr QPM RUBI Administration Protocol Lansoprazole 30 mg 10/15/18 10:00 11/13/18 22:17 Prevacid Solutab FEEDTUBE 30 mg BID RUBI Administration Metoprolol Tartrate 5 mg 10/18/18 14:05 Lopressor IV Q6HR PRN Tachyarrhythmias Multi-Ingred Cream/Lotion/Oil/Oint 1 applic 10/10/18 17:53 Artificial Tears Ophth Oint OU Q4HR PRN Dry Eye(s) Multivitamins 1 each 10/11/18 10:00 11/13/18 09:12 Theragran Tab PO 1 each DAILY RUBI Administration Ondansetron HCl 4 mg 11/12/18 15:05 Zofran IV Q8H PRN N/V unrelieved by Buddy Faye Hydrophilic Mucilloid 1 each 11/08/18 18:00 11/13/18 09:12 Metamucil PO 1 each QDAY RUBI Administration Ritonavir 100 mg 10/30/18 18:00 11/13/18 09:11 Norvir PO 100 mg QDAY RUBI Administration Simple Syrup 15 ml 10/11/18 12:58 Simple Syrup FEEDTUBE PRN PRN Hypoglycemia Simple Syrup 30 ml 10/11/18 12:58 Simple Syrup FEEDTUBE PRN PRN Hypoglycemia Sodium Bicarbonate 325 mg 10/11/18 12:58 Sodium Bicarbonate FEEDTUBE PRN PRN For Clogged Feeding Tube Sodium Chloride 10 ml 10/10/18 22:00 11/13/18 22:23 Sodium Chloride Flush Syringe 10 Ml IV 10 ml BID RUBI Administration Sodium Chloride 10 ml 10/10/18 18:12 Sodium Chloride Flush Syringe 10 Ml IV PRN PRN LINE FLUSH Tenofovir Disoproxil Fumarate 300 mg 10/30/18 17:45 11/11/18 19:20 Viread PO 300 mg Q96H RUBI Administration
[2018-11-14] MEDS: DUONEB *Not for PRN Use IH SCH ×3 (07:58→20:14)
[2018-11-14 08:03] LABS: Hematocrit 24.5 % (35.5-45.6); Hemoglobin 7.8 gm/dl (11.8-15.2); Mean Corpuscular HGB Conc 32 % (32-34); Mean Corpuscular Volume 90 fl (84-94); Platelet Count 196 K/mm3 (140-440); Red Blood Count 2.71 M/mm3 (3.65-5.03); Red Cell Distribution Width 18.9 % (13.2-15.2)
--- NOTE | 2018-11-14 09:26 | Progress Note ---
Assessment and Plan Impression * Acute renal failure. Most likely secondary to ATN * Respiratory failure * Encephalopathy * Sepsis * Anemia * Thrombocytopenia * HIV disease Recommendations * Patient remains oliguric and dialysis dependent. * Continue dialysis on MWF schedule for now * He most likely has ATN * Avoid nephrotoxins * Adjust meds for GFR less than 10 * Monitor fluid status and electrolytes closely * Consultants notes appreciated * Patient is still with a Vas-Cath. He will require PermCath. Discussed with vascular surgery. Not safe to discharge patient with Vas-Cath. Once discharge arrangements have been made, shall request for PermCath again. Subjective Date of service: 11/14/18 Principal diagnosis: anemia Interval history: Patient is awake and alert . Eyes any shortness of breath. Currently in a position. Objective - Vital Signs Vital signs: Vital Signs - 12hr 11/13/18 11/13/18 11/13/18 22:04 22:11 22:21 Temperature 100.5 F H Pulse Rate 128 H Pulse Rate [ 125 H 122 H Bilateral Throughout] Respiratory 20 Rate Respiratory 18 18 Rate [Bilateral Throughout] Blood Pressure 122/82 O2 Sat by Pulse 99 Oximetry 11/14/18 11/14/18 04:21 07:58 Temperature 98.4 F Pulse Rate 118 H Pulse Rate [ 100 H Bilateral Throughout] Respiratory 18 Rate Respiratory 16 Rate [Bilateral Throughout] Blood Pressure 128/86 O2 Sat by Pulse 100 Oximetry - General Appearance General appearance: chronically ill, frail EENT: PERRL, mucous membranes moist Neck: no JVD, no thyromegaly, no carotid bruit, supple, other (right IJ Vas-Cath in place) Respiratory: Present: Clear to Ascultation Cardiology: regular, normal heart rate Gastrointestinal: normal, normoactive bowel sounds, other (suprapubic tube in place) Integumentary: other (no edema) - Lab 11/14/18 07:09 11/13/18 09:41 Most recent lab results Calcium 8.9 mg/dL (8.4-10.2) 11/13/18 09:41 Phosphorus 8.30 mg/dL (2.5-4.5) H 10/25/18 10:00 Magnesium 3.10 mg/dL (1.7-2.3) H 10/18/18 05:03 Urine Creatinine 30.8 mg/dL (0.1-20.0) H 10/13/18 04:43 Urine Sodium 106 mmol/L 10/13/18 04:43 Urine Total Protein 75 mg/dL (5-11.8) H 10/13/18 04:43 Medications & Allergies - Medications Allergies/Adverse Reactions: Allergies Sulfa (Sulfonamide Antibiotics) Allergy (Verified 10/10/18 16:54) Unknown Home Medications: Home Medications Medication Instructions Recorded Confirmed Last Taken Type Acetaminophen [Tylenol] 1,000 mg PO Q6HR 10/10/18 10/10/18 Unknown History Amlodipine Besylate [Norvasc] 10 mg PO QDAY 10/10/18 10/10/18 Unknown History Aspirin [Adult Aspirin] 81 mg PO DAILY 10/10/18 10/10/18 Unknown History Atorvastatin [Lipitor Tab] 80 mg PO DAILY 10/10/18 10/10/18 Unknown History Losartan [Cozaar] 100 mg PO QDAY 10/10/18 10/10/18 Unknown History Multivitamin [Multiple Vitamins] 1 each PO DAILY 10/10/18 10/10/18 Unknown Hi story hydroCHLOROthiazide [HCTZ] 25 mg PO QDAY 10/10/18 10/10/18 Unknown History Active Medications: Generic Name Dose Route Start Last Admin Trade Name Freq PRN Reason Stop Dose Admin Acetaminophen 500 mg 10/16/18 10:02 11/13/18 22:28 Tylenol PO 500 mg Q6H PRN Administration Fever >101 Albumin Human 25 gm 11/04/18 16:14 Alburx 25% (Albumin) IV CHON PRN Hypotension Albuterol 2.5 mg 10/10/18 18:12 Proventil IH Q3HRT PRN Shortness Of Breath Albuterol/Ipratropium 1 ampul 10/25/18 08:00 11/14/18 07:58 Duoneb *Not For Prn Use* IH 1 ampul TIDRT RUBI Administration Amlodipine Besylate 10 mg 10/11/18 10:00 11/13/18 09:11 Norvasc PO 10 mg QDAY RUBI Administration Lipase/Protease/Amylase 1 each 10/11/18 12:58 Pancrebecka Reed 10,500 Unit FEEDTUBE PRN PRN For Clogged Feeding Tube Atovaquone 1,500 mg 11/14/18 10:00 Mepron PO QDAY RUBI Carvedilol 12.5 mg 10/22/18 22:00 11/13/18 22:17 Coreg PO 12.5 mg BID RUBI Administration Darunavir 800 mg 10/30/18 18:00 11/13/18 09:10 Prezista PO 800 mg QDAY RUBI Administration Emtricitabine 200 mg 11/01/18 10:00 11/13/18 09:11 Emtriva PO 200 mg Q48HR RUBI Administration Epoetin Dany 20,000 unit 11/12/18 15:00 Procrit IV .MWF RUBI Heparin Sodium (Porcine) 5,000 unit 11/04/18 16:15 Heparin IV CHON PRN hemodialysis Heparin Sodium (Porcine) 5,000 unit 11/07/18 22:00 11/14/18 06:26 Heparin SUB-Q 5,000 unit Q8HR RUBI Administration Hydrophilic Ointment 1 applic 10/10/18 17:53 Vaseline Lip Therapy TP Q2HR PRN Dry Lips Sodium Chloride 100 mls @ 999 mls/hr 11/12/18 09:51 Nacl 0.9% IV CHON PRN Hypotension Dextrose/Sodium Chloride 250 mls @ 75 mls/hr 11/12/18 18:00 11/13/18 01:43 D5/0.45ns IV Infused DIRECT RUBI Infusion Cefepime HCl 1 gm in 100 mls @ 200 mls/hr 11/13/18 18:00 11/13/18 17:09 Maxipime/Ns 1 Gm/100 Ml IV 200 mls/hr QPM RUBI Administration Protocol Lansoprazole 30 mg 10/15/18 10:00 11/13/18 22:17 Prevacid Solutab FEEDTUBE 30 mg BID RUBI Administration Metoprolol Tartrate 5 mg 10/18/18 14:05 Lopressor IV Q6HR PRN Tachyarrhythmias Multi-Ingred Cream/Lotion/Oil/Oint 1 applic 10/10/18 17:53 Artificial Tears Ophth Oint OU Q4HR PRN Dry Eye(s) Multivitamins 1 each 10/11/18 10:00 11/13/18 09:12 Theragran Tab PO 1 each DAILY RUBI Administration Ondansetron HCl 4 mg 11/12/18 15:05 Zofran IV Q8H PRN N/V unrelieved by Buddy Faye Hydrophilic Mucilloid 1 each 11/08/18 18:00 11/13/18 09:12 Metamucil PO 1 each QDAY RUBI Administration Ritonavir 100 mg 10/30/18 18:00 11/13/18 09:11 Norvir PO 100 mg QDAY [facility] Administration Simple Syrup 15 ml 10/11/18 12:58 Simple Syrup FEEDTUBE PRN PRN Hypoglycemia Simple Syrup 30 ml 10/11/18 12:58 Simple Syrup FEEDTUBE PRN PRN Hypoglycemia Sodium Bicarbonate 325 mg 10/11/18 12:58 Sodium Bicarbonate FEEDTUBE PRN PRN For Clogged Feeding Tube Sodium Chloride 10 ml 10/10/18 22:00 11/13/18 22:23 Sodium Chloride Flush Syringe 10 Ml IV 10 ml BID RUBI Administration Sodium Chloride 10 ml 10/10/18 18:12 Sodium Chloride Flush Syringe 10 Ml IV PRN PRN LINE FLUSH Tenofovir Disoproxil Fumarate 300 mg 10/30/18 17:45 11/11/18 19:20 Viread PO 300 mg Q96H RUBI Administration
[2018-11-14 09:29] LABS: Anisocytosis 1+; Basophils % (Manual) 0 % (0.0-1.8); Macrocytosis Few; Myelocytes # (Manual) 0.1 K/mm3; Total Cells Counted 100
[2018-11-14 09:30] LABS: Large Platelets Rare; Platelet Estimate Consistent w Auto; Poikilocytosis 1+; Schistocytes Rare; Target Cells Rare
--- NOTE | 2018-11-14 09:33 | Progress Note ---
Assessment and Plan Cultures: Blood culture 10/10/2018 no growth. Sputum culture 10/10/2018 Ana Paula albicans. Crypto Ag 10/10/2018 neg. Urine culture 10/13/2018 no growth. Blood culture 10/17/2018 no growth. Blood culture 10/20/2018: no growth Stool Occult Blood 10/23/18: positive Blood culture 10/29/18: negative Urine culture 10/31/18: Ana Paula Blood culture 11/05/18: No growth Assessment: 43 y/o male with history of HIV (unknown CD4/VL/ART intake), HTN, CVA 6 months ago at [place], Nicotine Dependence, Malnutrition; admitted on 10/10/2018 due to AMS (confusion/lethargy) and slurred speech for 24 h: 1) SIRS versus sepsis: Fever and Luekocytosis continuing. Etiology unknown. Fevers could be related to new infection vs IRIS. - Started HIV treatment on 10/30/2018. - CXR neg - BNP 70K - Troponin 0.2 - LDH 2242 -chest CT :Patchy airspace disease in the right lower lobe compatible with pneumonia. No evidence of pleural effusion. -repeat CXR : clear lungs and normal bony and soft tissue structures. Patchy airspace disease in the right lower lobe has resolved since 11/07/18 2) Acute hypoxemic respiratory failure: for airway protection +/- ? pneumonia. Repeat CXR no consolidations. Ana Paula in tracha sp likely a colonizer. Extubated 10/15. Continues on atovaquone as prophylaxis. Patient has sulfa allergy. 3) Acute encephalopathy: Improved.; multifactorial ?from hypertensive urgency +/- brain opportunistic infection. DDx: Neurosyphilis, VZV/CMV encephalitis versus SHOE PULLER lymphoma versus less likely PML v/s ischemic CVA (seems more likely) - CT head showed bilateral chronic ischemic changes. - Brain MRI showed areas of edema in the basal ganglia and thalami bilaterally, within the jamari and in the cerebral hemispheres bilaterally in the subcortical and deep white matter and in portions of the cortex, areas of encephalomalacia in the basal ganglia bilaterally with evidence of previous hemorrhage or mineral deposition and numerous small foci of acute infarct in the basal ganglia bilaterally, subinsular regions bilaterally and medial temporal lobes bilaterally and possibly in the occipital cortex bilaterally. - Brain MRA showed possible dissection versus artifact at the basilar artery. Luminal irregularity at the anterior, middle, and posterior cerebral arteries as well as the carotid siphons may represent mild to moderate atherosclerotic disease. More notable narrowing at the distal right A1 segment. Differential diagnosis includes motion artifact and vasculitis. Vertebral arteries are not clearly visualized. - CSF wbc 4, rbc 113, Seg 8%, Lymph 76%, protein 55, glucose 73 which is not c/w meningitis - RPR reactive 1:32 / FTA ABs reactive, treated with penicillin and ceftriaxone but CSF VDRL Non reactive. - Toxoplasma IgG negative, CSF Toxoplasma PCR: negative - Blood CMV DNA VL=1,370, 3.1 log on ganciclovir - likely reactivation - Repeat CMV DNA PCR 10/24/2018: <200. Off ganciclovir. - Glucan Assay: negative 4) Anemia/thrombocytopenia: improving. 5) Acute on CKD or SHRUTHI ? unclear etiology: on HD. 6) DM: uncontrolled. 7) HIV/AIDS: VL 320,000 / CD4=3 on 10/11/2018. Continue HIV therapy (started on 10/30/2018): renally adjusted TDF, FTC along with dolutegravir and ritonavir boosted darunavir. Genotype shows significant mutations, Continue current therapy Recommendations: -continue atovaquone 750 mg BID -continue HIV therapy: renally adjusted TDF, FTC along with dolutegravir and ritonavir boosted darunavir -f/u repeat blood cultures -Continue Cefepime 1 gm Q PM and Vancomycin PK dose, D2 [facility] M: [phone] O:[phone] Subjective Date of service: 11/14/18 Principal diagnosis: anemia Interval history: Patient seen and examined. No acute distress observed. Following simple commands. Objective - Exam Narrative Exam: General appearance: Awake, Alert, No acute distress Eyes: anicteric sclerae, moist conjunctivae; no lid-lag; PERRLA HENT: Atraumatic; oropharynx limited Neck: Trachea midline; supple, no thyromegaly or lymphadenopathy Lungs: CTA, with normal respiratory effort, on CV: tachycardic Abdomen: Soft, non-tender;+SP cath : + rectal bag Extremities: No peripheral edema , + contractures bilateral lower extremities Skin: Normal temperature, turgor and texture; no rash, ulcers or subcutaneous nodules Psych: affect: Flat Neuro: Improved, following simple commands - Constitutional Vitals: Vital Signs Temp Pulse Resp BP Pulse Ox 98.4 F 100 H 16 128/86 100 11/14/18 04:21 11/14/18 07:58 11/14/18 07:58 11/14/18 04:21 11/14/18 04:21 Temperature -Last 24 Hours Temperature 98.4 F Temperature 100.5 F Temperature 99.0 F Temperature 101.7 F - Labs CBC & Chem 7: 11/14/18 07:09 11/13/18 09:41 Labs: Abnormal lab results 11/13/18 11/13/18 11/14/18 Range/Units 09:41 09:41 07:09 WBC 14.3 H 13.3 H (4.5-11.0) K/mm3 RBC 2.73 L 2.71 L (3.65-5.03) M/mm3 Hgb 7.8 L 7.8 L (11.8-15.2) gm/dl Hct 24.1 L 24.5 L (35.5-45.6) % RDW 18.3 H 18.9 H (13.2-15.2) % Seg Neuts % (Manual) 86.0 H 89.0 H (40.0-70.0) % Lymphocytes % (Manual) 8.0 L 4.0 L (13.4-35.0) % Seg Neutrophils # Man 12.3 H 11.8 H (1.8-7.7) K/mm3 Lymphocytes # (Manual) 1.1 L 0.5 L (1.2-5.4) K/mm3 Chloride 95.1 L (98-107) mmol/L BUN 31 H (9-20) mg/dL Creatinine 5.0 H (0.8-1.5) mg/dL Glucose 151 H (75-100) mg/dL
[2018-11-14] MEDS: NORVASC PO SCH (12:02)
[2018-11-14] MEDS: COREG PO SCH ×2 (12:02→21:55)
[2018-11-14] MEDS: PREVACID SOLUTAB FEEDTUBE SCH ×2 (12:04→21:54)
[2018-11-14] MEDS: THERAGRAN Tab PO SCH (12:04)
[2018-11-14] MEDS: MEPRON PO SCH (12:05)
[2018-11-14] MEDS: TIVICAY PO SCH (12:05)
[2018-11-14] MEDS: PREZISTA PO SCH (12:06)
[2018-11-14] MEDS: METAMUCIL PO SCH (12:07)
[2018-11-14] MEDS: NORVIR PO SCH (12:07)
[2018-11-14] MEDS: SODIUM CHLORIDE FLUSH SYRINGE 10 ML IV SCH ×2 (12:08→21:57)
--- NOTE | 2018-11-14 14:25 | Progress Note ---
Assessment and Plan Assessment and plan: patient is 43 YO Male with HIV, hypertension, previous stroke, Nicotine Dependence, presents to ED for evaluation. Patient was confused and lethargic and unable to provide history. He was seen and evaluated in ED and found to be in distress and unable to protect his airway and was therefore intubated, placed on ventilator in ER then admitted MR brain 10/11 1. Study somewhat degraded by motion artifact. 2 Areas of edema in the basal ganglia and thalami bilaterally, within the jamari and in the cerebral hemispheres bilaterally in the subcortical and deep white matter and in portions of the cortex. 3. Areas of encephalomalacia in the basal ganglia bilaterally with evidence of previous hemorrhage or mineral deposition. 4. Numerous small foci of acute infarct in the basal ganglia bilaterally, subinsular regions bilaterally and medial temporal lobes bilaterally and possibly in the occipital cortex bilaterally. The above findings may be secondary to an infectious or noninfectious etiology with a component of vasculopathy or vasculitis resulting in infarcts. Viral encephalopathies and lymphoma would need to be considered in this patient with history of HIV. Neuro ams acute metabolic encephalopathy improving /Acute CVA with Bilateral infarcts with edema Consulted Neurology, he was evaluated by DR. Valentine. mentation is improved, and this is likely his new baseline Dysphagia/ moderate malnutrition -MBS 10/23, recommended pureed with nectar thickened liquids, continue this diet -lead ramp service man consulted Hematology Anemia- stable, thrombocytopenia, leukocytosis, coagulopathy; now resolved -Status post platelet (3 units) and prbc (6 units ) transfusion, the patient had only few schistocytes on smear, ADAMS13 91% activity , plt count has recovered ID HIV/AIDS, CD4 count 3, HIV viral load 320,000 acute bacterial PNA, CMV viremia toxo neg, CSF neg Whole blood cmv PCR was positive at 1374 abx and a antiviral per ID high fever, cxr shows improvement of vasc congestion, fup blood cx, femoral vas cath removed 11/06, now has IJ vas cath -he was put back on HAART, he likely has component of IRIS causing fevers and sob -CT on 11/06 confirms patchy infiltrate IRIS vs pna, abx per ID, repeat cxr today -still having high fevers, fup repeat imaging, blood cultures, case dw ID FEN/Renal SHRUTHI- ATN, no signs of renal recovery, now ESRD, Hyperkalemia, urinary retention Severe protein calorie malnutrition sp SPC on 10/12 cont HD per nephrology, no signs of renal recovery -will need permacath prior to dc, but patient continues to have have fever on and off -dietitican consult Pulm acute hypoxic resp failure on MV> 96 hours self extubated 10/16, continue supplemental oxygen CTA neg for PE on 11/06 CVS /Hypertensive urgency and acute systolic CHF He was treated with Cardene drip which was weaned off. Optimize medications for CHF on coreg, no mik due to high K, fluid removal by dialysis Skin Stage 2 sacral wound decub . The wound was measured at 5.0x4.0. Small serous sanguineous drainage noticed from the wound. no evidence of infection, cont wound care Depression patient appears to have worsening depression. He is not participating with physical therapy, he is not eating. We'll start him on Remeron at bedtime, and consult mental health DVT ppx- heparin sq Dispo: Needs HD and home health set up before he can be dc History Interval history: Patient continues to have weakness of his voice, had low grade fever today Review of systems Constitutional: ,overall malaise, poor appetite today CVS: No chest pain, no orthopnea, no dyspnea on exertion, no pedal edema GI: No abdominal pain, no diarrhea, no vomiting, no constipation Respiratory: sob improved, no wheezing, denies cough Hospitalist Physical - Physical exam Narrative exam: General.: Appears chronically ill, weak voice, cachectic HEENT: Moist mucous membranes, extraocular muscles intact, no lymphadenopathy Neck: supple Cardiac: S1-S2 heard Lungs: rales Abdomen: soft , nontender, nondistended, bowel sounds positive Extremities: no edema clubbing or cyanosis Skin: no rash or lesions Neurologic: no gross focal deficits, generalized weakness Psych: calm, and cooperative - Constitutional Vitals: Temp Pulse Resp BP Pulse Ox 98.4 F 100 H 16 119/73 100 11/14/18 04:21 11/14/18 07:58 11/14/18 07:58 11/14/18 12:02 11/14/18 04:21 General appearance: Present: no acute distress Results - Labs CBC & Chem 7: 11/14/18 07:09 11/13/18 09:41 Labs: Laboratory Last Values WBC 13.3 K/mm3 (4.5-11.0) H 11/14/18 07:09 RBC 2.71 M/mm3 (3.65-5.03) L 11/14/18 07:09 Hgb 7.8 gm/dl (11.8-15.2) L 11/14/18 07:09 Hct 24.5 % (35.5-45.6) L 11/14/18 07:09 MCV 90 fl (84-94) 11/14/18 07:09 MCH 29 pg (28-32) 11/14/18 07:09 MCHC 32 % (32-34) 11/14/18 07:09 RDW 18.9 % (13.2-15.2) H 11/14/18 07:09 Plt Count 196 K/mm3 (140-440) 11/14/18 07:09 Lymph % (Auto) Associate Professor Computer Science 11/13/18 09:41 Hayes % (Auto) Associate Professor Computer Science 11/13/18 09:41 Eos % (Auto) Associate Professor Computer Science 11/13/18 09:41 Baso % (Auto) Associate Professor Computer Science 11/13/18 09:41 Lymph # Associate Professor Computer Science 11/13/18 09:41 Hayes # Associate Professor Computer Science 11/13/18 09:41 Eos # Associate Professor Computer Science 11/13/18 09:41 Baso # Associate Professor Computer Science 11/13/18 09:41 Add Manual Diff Complete 11/14/18 07:09 Total Counted 100 11/14/18 07:09 Seg Neutrophils % Associate Professor Computer Science 11/13/18 09:41 Seg Neuts % (Manual) 89.0 % (40.0-70.0) H 11/14/18 07:09 Band Neutrophils % 0 % 11/14/18 07:09 Lymphocytes % (Manual) 4.0 % (13.4-35.0) L 11/14/18 07:09 Reactive Lymphs % (Man) 0 % 11/14/18 07:09 Monocytes % (Manual) 5.0 % (0.0-7.3) 11/14/18 07:09 Eosinophils % (Manual) 1.0 % (0.0-4.3) 11/14/18 07:09 Basophils % (Manual) 0 % (0.0-1.8) 11/14/18 07:09 Metamyelocytes % 0 % 11/14/18 07:09 Myelocytes % 1.0 % 11/14/18 07:09 Promyelocytes % 0 % 11/14/18 07:09 Blast Cells % 0 % 11/14/18 07:09 Nucleated RBC % Not Reportable 11/14/18 07:09 Seg Neutrophils # Associate Professor Computer Science 11/13/18 09:41 Seg Neutrophils # Man 11.8 K/mm3 (1.8-7.7) H 11/14/18 07:09 Band Neutrophils # 0.0 K/mm3 11/14/18 07:09 Abs Lymphs (Manual) 267 cells/uL (850-3900) L 10/11/18 17:36 Lymphocytes # (Manual) 0.5 K/mm3 (1.2-5.4) L 11/14/18 07:09 Abs React Lymphs (Man) 0.0 K/mm3 11/14/18 07:09 Monocytes # (Manual) 0.7 K/mm3 (0.0-0.8) 11/14/18 07:09 Eosinophils # (Manual) 0.1 K/mm3 (0.0-0.4) 11/14/18 07:09 Basophils # (Manual) 0.0 K/mm3 (0.0-0.1) 11/14/18 07:09 Metamyelocytes # 0.0 K/mm3 11/14/18 07:09 Myelocytes # 0.1 K/mm3 11/14/18 07:09 Promyelocytes # 0.0 K/mm3 11/14/18 07:09 Blast Cells # 0.0 K/mm3 11/14/18 07:09 Pathologist Review 10/15/18 03:14 WBC Morphology Not Reportable 11/14/18 07:09 Hypersegmented Neuts Not Reportable 11/14/18 07:09 Hyposegmented Neuts Not Reportable 11/14/18 07:09 Hypogranular Neuts Not Reportable 11/14/18 07:09 Smudge Cells Not Reportable 11/14/18 07:09 Toxic Granulation Not Reportable 11/14/18 07:09 Toxic Vacuolation Not Reportable 11/14/18 07:09 Dohle Bodies Not Reportable 11/14/18 07:09 Pelger-Huet Anomaly Not Reportable 11/14/18 07:09 Kartik Rods Not Reportable 11/14/18 07:09 Platelet Estimate Consistent w auto 11/14/18 07:09 Clumped Platelets Not Reportable 11/14/18 07:09 Plt Clumps, EDTA Not Reportable 11/14/18 07:09 Large Platelets Rare 11/14/18 07:09 Giant Platelets Not Reportable 11/14/18 07:09 Platelet Satelliting Not Reportable 11/14/18 07:09 Plt Morphology Comment Not Reportable 11/14/18 07:09 RBC Morphology Not Reportable 11/14/18 07:09 Dimorphic RBCs Not Reportable 11/14/18 07:09 Polychromasia Not Reportable 11/14/18 07:09 Hypochromasia Not Reportable 11/14/18 07:09 Poikilocytosis 1+ 11/14/18 07:09 Anisocytosis 1+ 11/14/18 07:09 Microcytosis Few 11/14/18 07:09 Macrocytosis Few 11/14/18 07:09 Spherocytes Not Reportable 11/14/18 07:09 Pappenheimer Bodies Not Reportable 11/14/18 07:09 Sickle Cells Not Reportable 11/14/18 07:09 Target Cells Rare 11/14/18 07:09 Tear Drop Cells Not Reportable 11/14/18 07:09 Ovalocytes Not Reportable 11/14/18 07:09 Stomatocytes Few 11/10/18 06:54 Helmet Cells Not Reportable 11/14/18 07:09 [place] Bodies Not Reportable 11/14/18 07:09 [place] Rings Not Reportable 11/14/18 07:09 Jani Cells Not Reportable 11/14/18 07:09 Bite Cells Not Reportable 11/14/18 07:09 Crenated Cell Not Reportable 11/14/18 07:09 Elliptocytes Not Reportable 11/14/18 07:09 Acanthocytes (Spur) Not Reportable 11/14/18 07:09 Rouleaux Not Reportable 11/14/18 07:09 Hemoglobin C Crystals Not Reportable 11/14/18 07:09 Schistocytes Rare 11/14/18 07:09 Malaria parasites Not Reportable 11/14/18 07:09 Jv Bodies Not Reportable 11/14/18 07:09 Hem Pathologist Commnt No 11/14/18 07:09 PT 17.7 Sec. (12.2-14.9) H 11/06/18 13:18 INR 1.36 (0.87-1.13) H 11/06/18 13:18 APTT 30.6 Sec. (24.2-36.6) 11/06/18 13:18 Thrombin Time 16.9 Sec. (15.1-19.6) 10/10/18 15:02 Heparin Anti-Xa Level < 0.10 U.I./ml (0.3-0.7) L 11/07/18 21:31 Heparin Anti-Xa, Unfract Negative (Negative) 10/25/18 05:59 POC ABG pH 7.514 (7.35-7.45) H 11/03/18 16:12 POC ABG pCO2 32.0 (35-45) L 10/21/18 09:49 POC ABG pO2 62 (80-105) L 11/03/18 16:12 POC ABG HCO3 23.2 (22-26 mml/L) 11/03/18 16:12 POC ABG Total CO2 24 (23-27mmol/L) 11/03/18 16:12 POC ABG O2 Sat 94 11/03/18 16:12 POC ABG Base Excess 0 ((-2) - (+3)mmol/L) 11/03/18 16:12 FiO2 4 % 11/03/18 16:12 Sodium 139 mmol/L (137-145) 11/13/18 09:41 Potassium 4.3 mmol/L (3.6-5.0) 11/13/18 09:41 Chloride 95.1 mmol/L (98-107) L 11/13/18 09:41 Carbon Dioxide 26 mmol/L (22-30) 11/13/18 09:41 Anion Gap 22 mmol/L 11/13/18 09:41 BUN 31 mg/dL (9-20) H 11/13/18 09:41 Creatinine 5.0 mg/dL (0.8-1.5) H 11/13/18 09:41 Estimated GFR 15 ml/min 11/13/18 09:41 BUN/Creatinine Ratio 6 % 11/13/18 09:41 Glucose 151 mg/dL (75-100) H 11/13/18 09:41 POC Glucose 139 (70-105) H 10/20/18 13:07 Osmolality 338 Mosm/kg 10/11/18 17:35 Lactic Acid 1.80 mmol/L (0.7-2.0) 10/12/18 05:59 Uric Acid 13.4 mg/dL (3.5-7.6) H 10/11/18 17:36 Calcium 8.9 mg/dL (8.4-10.2) 11/13/18 09:41 Phosphorus 8.30 mg/dL (2.5-4.5) H 10/25/18 10:00 Magnesium 3.10 mg/dL (1.7-2.3) H 10/18/18 05:03 Iron 147 ug/dL (49-181) 10/11/18 17:36 TIBC 236 mcg/dL (250-450) L 10/11/18 17:36 Ferritin 46729.0 ng/mL (13.0-400.0) H 10/11/18 17:35 Total Bilirubin 0.40 mg/dL (0.1-1.2) 10/25/18 10:00 Direct Bilirubin 0.2 mg/dL (0-0.2) 10/16/18 04:07 Indirect Bilirubin 0.3 mg/dL 10/16/18 04:07 AST 46 units/L (5-40) H 10/25/18 10:00 ALT 21 units/L (7-56) 10/25/18 10:00 Alkaline Phosphatase 102 units/L (35-129) 10/25/18 10:00 Ammonia 25.0 umol/L (25-60) 10/17/18 14:59 Lactate Dehydrogenase 925 units/L (91-180) H 10/22/18 05:51 Troponin T 0.357 ng/mL (0.00-0.029) H* 11/06/18 05:54 NT-Pro-B Natriuret Pep 53843 pg/mL (0-450) H 10/10/18 15:42 Total Protein 8.1 g/dL (6.3-8.2) 10/25/18 10:00 Albumin 3.5 g/dL (3.9-5) L 10/25/18 10:00 Albumin/Globulin Ratio 0.8 % 10/25/18 10:00 Triglycerides 306 mg/dL (2-149) H 11/05/18 11:29 Cholesterol 145 mg/dL (50-199) 11/05/18 11:29 LDL Cholesterol Direct 89 mg/dL (50-130) 11/05/18 11:29 HDL Cholesterol 25 mg/dL (40-59) L 11/05/18 11:29 Cholesterol/HDL Ratio 5.80 % 11/05/18 11:29 Serotonin Release Assay See scanned result 10/25/18 05:59 Vitamin B12 912.3 pg/mL (211-911) H 10/14/18 08:51 Folate 8.32 ng/mL (7.3-26.0) 10/14/18 08:51 PTH Intact 388.7 pg/mL (15-65) H 10/25/18 10:00 Urine Creatinine 30.8 mg/dL (0.1-20.0) H 10/13/18 04:43 Urine Sodium 106 mmol/L 10/13/18 04:43 Urine Total Protein 75 mg/dL (5-11.8) H 10/13/18 04:43 CSF Appearance Clear 10/16/18 15:00 CSF Color Colorless 10/16/18 15:00 CSF WBC 4 /mm3 (1-10) 10/16/18 15:00 CSF RBC 113 /mm3 (0-0) 10/16/18 15:00 CSF Seg Neutrophils 8.0 % (0-6) 10/16/18 15:00 CSF Lymphocytes % 76.0 % (40-80) 10/16/18 15:00 CSF Reactive Lymphs 2.0 % 10/16/18 15:00 CSF Monocytes % 14.0 % (15-45) 10/16/18 15:00 CSF Eosinophils % 0 % 10/16/18 15:00 CSF Basophils 0 % 10/16/18 15:00 CSF Pathologist Review C 10/16/18 15:00 CSF Glucose 73 mg/dL 10/16/18 15:00 CSF Total Protein 55 mg/dL 10/16/18 15:00 CSF VDRL Nonreactive (Nonreactive) 10/16/18 15:00 Random Vancomycin 18.9 ug/mL (0-40.0) 10/29/18 07:13 Immunofix Electrophor see below 10/11/18 17:36 RENO Screen Negative (Negative) 10/21/18 15:07 Proteinase 3 (PR3) Ab <1.0 AI (<1.0) 10/21/18 15:07 Myeloperoxidase Ab <1.0 AI (<1.0) 10/21/18 15:07 Heparin-induced Plt Ab Negative (Negative) 10/25/18 05:59 UF Heparin High Dose 0 % Release 10/25/18 05:59 VJ UFH Low Dose 0.1 0 % Release 10/25/18 05:59 VJ UFH Low Dose 0.5 14 % Release 10/25/18 05:59 Lymph Enumerat CD4/CD8 0.01 (0.86-5.00) L 10/11/18 17:36 % CD3 Cells 85 % (57-85) 10/11/18 17:36 Absolute CD3 Count 226 cells/uL (840-3060) L 10/11/18 17:36 % CD4 Cells 1 % (30-61) L 10/11/18 17:36 Absolute CD4 Count 3 cells/uL (490-1740) L 10/11/18 17:36 % CD8 Cells 82 % (12-42) H 10/11/18 17:36 Absolute CD8 Count 228 cells/uL (180-1170) 10/11/18 17:36 % CD19 Cells 6 % (6-29) 10/11/18 17:36 Absolute CD19 Count 16 cells/uL (110-660) L 10/11/18 17:36 RPR Titer 1:32 10/11/18 17:37 RPR Reactive (Nonreactive) 10/11/18 17:37 T.pallidum Ab (FTA-ABS) Reactive (Nonreactive) H 10/12/18 Unknown CMV DNA 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 See scanned result 10/24/18 17:47 Hepatitis A IgM Ab Non-reactive (NonReactive) 10/11/18 17:34 Hep Bs Antigen Non-reactive (Negative) 10/11/18 17:34 Hep B Core IgM Ab Non-reactive (NonReactive) 10/11/18 17:34 Hepatitis C Antibody Non-reactive (NonReactive) 10/11/18 17:34 HIV-1 RNA PCR copies/ml [id number] Copies/mL H 10/11/18 17:36 HIV-1 RNA (PCR) log 5.51 Log cps/mL H 10/11/18 17:36 Toxoplasma IgG Ab <7.20 IU/mL (<7.20) 10/13/18 07:54 Miscellaneous Test Flexitest 1 10/31/18 06:43 Blood Type A POSITIVE 11/08/18 11:28 Antibody Screen Negative 11/08/18 11:28 Crossmatch See Detail 11/08/18 11:28 Active Medications - Current Medications Current Medications: Generic Name Dose Route Start Last Admin Trade Name Freq PRN Reason Stop Dose Admin Acetaminophen 500 mg 10/16/18 10:02 11/13/18 22:28 Tylenol PO 500 mg Q6H PRN Administration Fever >101 Albumin Human 25 gm 11/04/18 16:14 Alburx 25% (Albumin) IV CHON PRN Hypotension Albuterol 2.5 mg 10/10/18 18:12 Proventil IH Q3HRT PRN Shortness Of Breath Albuterol/Ipratropium 1 ampul 10/25/18 08:00 11/14/18 07:58 Duoneb *Not For Prn Use* IH 1 ampul TIDRT RUBI Administration Amlodipine Besylate 10 mg 10/11/18 10:00 11/14/18 12:02 Norvasc PO Not Given QDAY [facility] Lipase/Protease/Amylase 1 each 10/11/18 12:[address] 10,500 Unit FEEDTUBE PRN PRN For Clogged Feeding Tube Atovaquone 1,500 mg 11/14/18 10:00 11/14/18 12:05 Mepron PO 1,500 mg QDAY RUBI Administration Carvedilol 12.5 mg 10/22/18 22:00 11/14/18 12:02 Coreg PO Not Given BID RUBI Darunavir 800 mg 10/30/18 18:00 11/14/18 12:06 Prezista PO 800 mg QDAY RUBI Administration Emtricitabine 200 mg 11/01/18 10:00 11/13/18 09:11 Emtriva PO 200 mg Q48HR RUBI Administration Epoetin Dany 20,000 unit 11/12/18 15:00 Procrit IV .MWF [facility] Heparin Sodium (Porcine) 5,000 unit 11/04/18 16:15 Heparin IV CHON PRN hemodialysis Heparin Sodium (Porcine) 5,000 unit 11/07/18 22:00 11/14/18 06:26 Heparin SUB-Q 5,000 unit Q8HR RUBI Administration Hydrophilic Ointment 1 applic 10/10/18 17:53 Vaseline Lip Therapy TP Q2HR PRN Dry Lips Sodium Chloride 100 mls @ 999 mls/hr 11/12/18 09:51 Nacl 0.9% IV CHON PRN Hypotension Dextrose/Sodium Chloride 250 mls @ 75 mls/hr 11/12/18 18:00 11/13/18 01:43 D5/0.45ns IV Infused DIRECT RUBI Infusion Cefepime HCl 1 gm in 100 mls @ 200 mls/hr 11/13/18 18:00 11/13/18 17:09 Maxipime/Ns 1 Gm/100 Ml IV 200 mls/hr QPM RUBI Administration Protocol Lansoprazole 30 mg 10/15/18 10:00 11/14/18 12:04 Prevacid Solutab FEEDTUBE 30 mg BID RUBI Administration Metoprolol Tartrate 5 mg 10/18/18 14:05 Lopressor IV Q6HR PRN Tachyarrhythmias Multi-Ingred Cream/Lotion/Oil/Oint 1 applic 10/10/18 17:53 Artificial Tears Ophth Oint OU Q4HR PRN Dry Eye(s) Multivitamins 1 each 10/11/18 10:00 11/14/18 12:04 Theragran Tab PO 1 each DAILY RUBI Administration Ondansetron HCl 4 mg 11/12/18 15:05 Zofran IV Q8H PRN N/V unrelieved by Buddy Faye Hydrophilic Mucilloid 1 each 11/08/18 18:00 11/14/18 12:07 Metamucil PO 1 each QDAY RUBI Administration Ritonavir 100 mg 10/30/18 18:00 11/14/18 12:07 Norvir PO 100 mg QDAY RUBI Administration Simple Syrup 15 ml 10/11/18 12:58 Simple Syrup FEEDTUBE PRN PRN Hypoglycemia Simple Syrup 30 ml 10/11/18 12:58 Simple Syrup FEEDTUBE PRN PRN Hypoglycemia Sodium Bicarbonate 325 mg 10/11/18 12:58 Sodium Bicarbonate FEEDTUBE PRN PRN For Clogged Feeding Tube Sodium Chloride 10 ml 10/10/18 22:00 11/14/18 12:08 Sodium Chloride Flush Syringe 10 Ml IV 10 ml BID RUBI Administration Sodium Chloride 10 ml 10/10/18 18:12 Sodium Chloride Flush Syringe 10 Ml IV PRN PRN LINE FLUSH Tenofovir Disoproxil Fumarate 300 mg 10/30/18 17:45 11/11/18 19:20 Viread PO 300 mg Q96H RUBI Administration Nutrition/Malnutrition Assess - Dietary Evaluation Nutrition/Malnutrition Findings: Nutrition Notes Start: 10/11/18 11:14 Freq: Status: Active Protocol: Document 11/13/18 11:02 SA (Rec: 11/13/18 11:50 SA [id number]) Co-Sign 11/13/18 11:02 LP Nutrition Notes Initial or Follow up Reassessment Current Diagnosis Acute Kidney Injury,CKD(stage I-IV),Hypertension,Stroke Other Pertinent Diagnosis on HD, Acute encephalopathy, HIV/AIDS, Syphilis, dysphagia Current Diet Pureed Labs/Tests Reviewed Pertinent Medications Reviewed Height 5 ft 9 in Weight 51.5 kg [place] Body Weight (kg) 72.72 BMI 16.7 Subjective/Other Information Pt reports appetie is good. Pt reports eating 75% of trays. Pt drinking 100% of ONS. Pt denies chewing/swallowing difficulties. Pt states no N/V /D. Pt unaware of UBW. Pt hasn 't been recieving ONS. Percent of energy/protein needs met: 65%/90% Burn Absent Trauma Absent #1 Nutrition Diagnosis Inadequate oral intake Diagnosis Progress(for reassessment Continues documentation) Is patient on ventilator? No Is Patient Ambulatory and/or Out of Bed No REE-([facility]-confined to bed) 1689.864 Kcal/Kg value to use for calculation 40 Approximate Energy Requirements Using 0 kcal/Kg Calculation Used for Recommendations Kcal/kg Additional Notes Pro needs 1.2-1.5g/k-79g/ day Fluid needs 1ml/kcal Nutrition Intervention Change Diet Order: Continue current Add Supplement/Snack (indicate name/kcal Nepro 1 daily /protein ) Provides kCal: 425 Provides Protein (gm) 19 Goal #1 Meet at least 75% of calorie and protein needs via PO and ONS intakes Anticipated Discharge Needs: Pureed, Renal diet Follow-Up By: 11/15/18 Additional Comments Follow for PO and ONS intakes
[2018-11-14] MEDS: MAXIPIME/NS 1 GM/100 ML 1 GM/100 ML BAG IV SCH (18:10)
[2018-11-14] MEDS ORDERED: VANCOMYCIN/NS 1 GM/250 ML 1 GM/250 ML BAG IV ONE (20:00)
[2018-11-14] MEDS: REMERON SOLUTAB PO SCH (21:54)
[2018-11-15] MEDS: PROVENTIL IH PRN (01:28)
[2018-11-15] MEDS: HEPARIN SUB-Q SCH ×3 (05:47→22:31)
[2018-11-15 05:59] LABS: Hemoglobin 7.2 gm/dl (11.8-15.2); Mean Corpuscular HGB Conc 32 % (32-34); Mean Corpuscular Volume 91 fl (84-94); Platelet Count 190 K/mm3 (140-440); Red Blood Count 2.54 M/mm3 (3.65-5.03); Red Cell Distribution Width 18.8 % (13.2-15.2)
[2018-11-15] MEDS: DUONEB *Not for PRN Use IH SCH ×3 (07:27→19:27)
--- NOTE | 2018-11-15 09:53 | Progress Note ---
Assessment and Plan Impression * End-stage renal disease * Respiratory failure * Encephalopathy * Sepsis * Anemia * Thrombocytopenia * HIV disease Recommendations * Patient most likely has end-stage renal disease. * He has been dialysis dependent for more than 5 weeks. Has remained oliguric and dialysis dependent. Renal ultrasound also shows bilateral echogenic kidneys . Do not expect recovery of renal function at this time. * Continue dialysis on MWF schedule for now * He may have had a component of ATN * Avoid nephrotoxins * Adjust meds for GFR less than 10 * Monitor fluid status and electrolytes closely * Consultants notes appreciated * Patient is still with a Vas-Cath. He will require PermCath. Discussed with vascular surgery. Not safe to discharge patient with Vas-Cath. Once discharge arrangements have been made, shall request for PermCath again. Subjective Date of service: 11/15/18 Principal diagnosis: anemia - hiv Interval history: Patient is awake and alert . Denies any shortness of breath. Currently in a position. Objective - Vital Signs Vital signs: Vital Signs - 12hr 11/14/18 11/14/18 11/15/18 21:55 22:52 01:28 Temperature 98.0 F Pulse Rate 122 H 125 H Pulse Rate [ 103 H Bilateral Throughout] Respiratory 36 H Rate Respiratory 18 Rate [Bilateral Throughout] Blood Pressure 135/94 133/90 O2 Sat by Pulse 100 Oximetry 11/15/18 11/15/18 11/15/18 05:34 07:27 07:37 Temperature 97.9 F Pulse Rate 122 H Pulse Rate [ 121 H 120 H Bilateral Throughout] Respiratory 36 H Rate Respiratory 20 20 Rate [Bilateral Throughout] Blood Pressure 135/93 O2 Sat by Pulse 100 Oximetry - General Appearance General appearance: chronically ill, frail EENT: ATNC, PERRL Neck: no JVD, no thyromegaly, no carotid bruit, supple, other (right IJ Vas-Cath in place) Respiratory: Present: Clear to Ascultation Cardiology: regular, normal heart rate, S1S2, no murmurs Gastrointestinal: normal, normoactive bowel sounds Integumentary: other (no edema) - Lab 11/15/18 05:19 11/13/18 09:41 Most recent lab results Calcium 8.9 mg/dL (8.4-10.2) 11/13/18 09:41 Phosphorus 8.30 mg/dL (2.5-4.5) H 10/25/18 10:00 Magnesium 3.10 mg/dL (1.7-2.3) H 10/18/18 05:03 Urine Creatinine 30.8 mg/dL (0.1-20.0) H 10/13/18 04:43 Urine Sodium 106 mmol/L 10/13/18 04:43 Urine Total Protein 75 mg/dL (5-11.8) H 10/13/18 04:43 Medications & Allergies - Medications Allergies/Adverse Reactions: Allergies Sulfa (Sulfonamide Antibiotics) Allergy (Verified 10/10/18 16:54) Unknown Home Medications: Home Medications Medication Instructions Recorded Confirmed Last Taken Type Acetaminophen [Tylenol] 1,000 mg PO Q6HR 10/10/18 10/10/18 Unknown History Amlodipine Besylate [Norvasc] 10 mg PO QDAY 10/10/18 10/10/18 Unknown History Aspirin [Adult Aspirin] 81 mg PO DAILY 10/10/18 10/10/18 Unknown History Atorvastatin [Lipitor Tab] 80 mg PO DAILY 10/10/18 10/10/18 Unknown History Losartan [Cozaar] 100 mg PO QDAY 10/10/18 10/10/18 Unknown History Multivitamin [Multiple Vitamins] 1 each PO DAILY 10/10/18 10/10/18 Unknown History hydroCHLOROthiazide [HCTZ] 25 mg PO QDAY 10/10/18 10/10/18 Unknown History Active Medications: Generic Name Dose Route Start Last Admin Trade Name Freq PRN Reason Stop Dose Admin Acetaminophen 500 mg 10/16/18 10:02 11/13/18 22:28 Tylenol PO 500 mg Q6H PRN Administration Fever >101 Albumin Human 25 gm 11/04/18 16:14 Alburx 25% (Albumin) IV CHON PRN Hypotension Albuterol 2.5 mg 10/10/18 18:12 11/15/18 01:28 Proventil IH 2.5 mg Q3HRT PRN Administration Shortness Of Breath Albuterol/Ipratropium 1 ampul 10/25/18 08:00 11/15/18 07:27 Duoneb *Not For Prn Use* IH 1 ampul TIDRT RUBI Administration Amlodipine Besylate 10 mg 10/11/18 10:00 11/14/18 12:02 Norvasc PO Not Given QDAY RUBI Lipase/Protease/Amylase 1 each 10/11/18 12:[address] 10,500 Unit FEEDTUBE PRN PRN For Clogged Feeding Tube Atovaquone 1,500 mg 11/14/18 10:00 11/14/18 12:05 Mepron PO 1,500 mg QDAY RUBI Administration Carvedilol 12.5 mg 10/22/18 22:00 11/14/18 21:55 Coreg PO 12.5 mg BID RUBI Administration Darunavir 800 mg 10/30/18 18:00 11/14/18 12:06 Prezista PO 800 mg QDAY RUBI Administration Emtricitabine 200 mg 11/01/18 10:00 11/13/18 09:11 Emtriva PO 200 mg Q48HR RUBI Administration Epoetin Dany 20,000 unit 11/12/18 15:00 Procrit IV .MWF [facility] Heparin Sodium (Porcine) 5,000 unit 11/04/18 16:15 Heparin IV CHON PRN hemodialysis Heparin Sodium (Porcine) 5,000 unit 11/07/18 22:00 11/15/18 05:47 Heparin SUB-Q 5,000 unit Q8HR RUBI Administration Hydrophilic Ointment 1 applic 10/10/18 17:53 Vaseline Lip Therapy TP Q2HR PRN Dry Lips Sodium Chloride 100 mls @ 999 mls/hr 11/12/18 09:51 Nacl 0.9% IV CHON PRN Hypotension Dextrose/Sodium Chloride 250 mls @ 75 mls/hr 11/12/18 18:00 11/13/18 01:43 D5/0.45ns IV Infused DIRECT RUBI Infusion Cefepime HCl 1 gm in 100 mls @ 200 mls/hr 11/13/18 18:00 11/14/18 18:10 Maxipime/Ns 1 Gm/100 Ml IV Not Given QPM [facility] Protocol Lansoprazole 30 mg 10/15/18 10:00 11/14/18 21:54 Prevacid Solutab FEEDTUBE 30 mg BID RUBI Administration Metoprolol Tartrate 5 mg 10/18/18 14:05 Lopressor IV Q6HR PRN Tachyarrhythmias Mirtazapine 15 mg 11/14/18 22:00 11/14/18 21:54 Remeron Solutab PO 15 mg QHS RUBI Administration Multi-Ingred Cream/Lotion/Oil/Oint 1 applic 10/10/18 17:53 Artificial Tears Ophth Oint OU Q4HR PRN Dry Eye(s) Multivitamins 1 each 10/11/18 10:00 11/14/18 12:04 Theragran Tab PO 1 each DAILY RUBI Administration Ondansetron HCl 4 mg 11/12/18 15:05 Zofran IV Q8H PRN N/V unrelieved by Buddy Faye Hydrophilic Mucilloid 1 each 11/08/18 18:00 11/14/18 12:07 Metamucil PO 1 each QDAY RUBI Administration Ritonavir 100 mg 10/30/18 18:00 11/14/18 12:07 Norvir PO 100 mg QDAY RUBI Administration Simple Syrup 15 ml 10/11/18 12:58 Simple Syrup FEEDTUBE PRN PRN Hypoglycemia Simple Syrup 30 ml 10/11/18 12:58 Simple Syrup FEEDTUBE PRN PRN Hypoglycemia Sodium Bicarbonate 325 mg 10/11/18 12:58 Sodium Bicarbonate FEEDTUBE PRN PRN For Clogged Feeding Tube Sodium Chloride 10 ml 10/10/18 22:00 11/14/18 21:57 Sodium Chloride Flush Syringe 10 Ml IV 10 ml BID RUBI Administration Sodium Chloride 10 ml 10/10/18 18:12 Sodium Chloride Flush Syringe 10 Ml IV PRN PRN LINE FLUSH Tenofovir Disoproxil Fumarate 300 mg 10/30/18 17:45 11/11/18 19:20 Viread PO 300 mg Q96H RUBI Administration
--- NOTE | 2018-11-15 10:22 | Progress Note ---
Assessment and Plan Cultures: Blood culture 10/10/2018 no growth. Sputum culture 10/10/2018 Ana Paula albicans. Crypto Ag 10/10/2018 neg. Urine culture 10/13/2018 no growth. Blood culture 10/17/2018 no growth. Blood culture 10/20/2018: no growth Stool Occult Blood 10/23/18: positive Blood culture 10/29/18: negative Urine culture 10/31/18: Ana Paula Blood culture 11/05/18: No growth Blood culture 11/14/18: no growth in 24 hours Assessment: 43 y/o male with history of HIV (unknown CD4/VL/ART intake), HTN, CVA 6 months ago at [facility], Nicotine Dependence, Malnutrition; admitted on 10/10/2018 due to AMS (confusion/lethargy) and slurred speech for 24 h: 1) SIRS versus sepsis: No fever in >24 hours, leukocytosis trending down. Etiology unknown. Fevers could be related to new infection vs IRIS. - Started HIV treatment on 10/30/2018. - CXR neg - BNP 70K - Troponin 0.2 - LDH 2242 -chest CT :Patchy airspace disease in the right lower lobe compatible with pneumonia. No evidence of pleural effusion. -repeat CXR : clear lungs and normal bony and soft tissue structures. Patchy airspace disease in the right lower lobe has resolved since 11/07/18 2) Acute hypoxemic respiratory failure: for airway protection +/- ? pneumonia. Repeat CXR no consolidations. Ana Paula in tracha sp likely a colonizer. Extubated 10/15. Continues on atovaquone as prophylaxis. Patient has sulfa allergy. 3) Acute encephalopathy: Improved.; multifactorial ?from hypertensive urgency +/- brain opportunistic infection. DDx: Neurosyphilis, VZV/CMV encephalitis versus [employer] lymphoma versus less likely PML v/s ischemic CVA (seems more likely) - CT head showed bilateral chronic ischemic changes. - Brain MRI showed areas of edema in the basal ganglia and thalami bilaterally, within the jamari and in the cerebral hemispheres bilaterally in the subcortical and deep white matter and in portions of the cortex, areas of encephalomalacia in the basal ganglia bilaterally with evidence of previous hemorrhage or mineral deposition and numerous small foci of acute infarct in the basal ganglia bilaterally, subinsular regions bilaterally and medial temp oral lobes bilaterally and possibly in the occipital cortex bilaterally. - Brain MRA showed possible dissection versus artifact at the basilar artery. Luminal irregularity at the anterior, middle, and posterior cerebral arteries as well as the carotid siphons may represent mild to moderate atherosclerotic disease. More notable narrowing at the distal right A1 segment. Differential diagnosis includes motion artifact and vasculitis. Vertebral arteries are not clearly visualized. - CSF wbc 4, rbc 113, Seg 8%, Lymph 76%, protein 55, glucose 73 which is not c/w meningitis - RPR reactive 1:32 / FTA ABs reactive, treated with penicillin and ceftriaxone but CSF VDRL Non reactive. - Toxoplasma IgG negative, CSF Toxoplasma PCR: negative - Blood CMV DNA VL=1,370, 3.1 log on ganciclovir - likely reactivation - Repeat CMV DNA PCR 10/24/2018: <200. Off ganciclovir. - Glucan Assay: negative 4) Anemia/thrombocytopenia: improving. 5) Acute on CKD or SHRUTHI ? unclear etiology: on HD. 6) DM: uncontrolled. 7) HIV/AIDS: VL 320,000 / CD4=3 on 10/11/2018. Continue HIV therapy (started on 10/30/2018): renally adjusted TDF, FTC along with dolutegravir and ritonavir boosted darunavir. Genotype shows significant mutations, Continue current therapy 8) Decubitus Ulcers: Left buttocks wound measures 9.0 x 2.5, Sacral wound measures 3.5 x 3.5, 80 % necrotic tissue, Right buttocks wound measures 5.0 x 3.0 per wound care. Recommendations: -continue atovaquone 750 mg BID -continue HIV therapy: renally adjusted TDF, FTC along with dolutegravir and ritonavir boosted darunavir -f/u repeat blood cultures -Continue Cefepime 1 gm Q PM and Vancomycin PK dose, D3 of D7 -Add Flagyl 500 mg IV every 8 hours -continue wound care -Ok to place Permcath when blood cultures are clear for 72 hours [facility] M: [phone] O:[phone] Subjective Date of service: 11/15/18 Principal diagnosis: anemia - hiv Interval history: Patient seen and examined. No acute distress observed. Following simple commands. Objective - Exam Narrative Exam: General appearance: Awake, Alert, No acute distress Eyes: anicteric sclerae, moist conjunctivae; no lid-lag; PERRLA HENT: Atraumatic; oropharynx limited Neck: Trachea midline; supple, no thyromegaly or lymphadenopathy Lungs: CTA, with normal respiratory effort CV: tachycardic Abdomen: Soft, non-tender;+SP cath Extremities: No peripheral edema , + contractures bilateral lower extremities Skin: Normal temperature, turgor and texture; no rash, ulcers or subcutaneous nodules Psych: affect: Flat Neuro: Improved, following simple commands - Constitutional Vitals: Vital Signs Temp Pulse Resp BP Pulse Ox 97.9 F 120 H 20 135/93 100 11/15/18 05:34 11/15/18 07:37 11/15/18 07:37 11/15/18 05:34 11/15/18 05:34 Temperature -Last 24 Hours Temperature 97.9 F Temperature 98.0 F Temperature 98.9 F Temperature 98.0 F - Labs CBC & Chem 7: 11/15/18 05:19 11/13/18 09:41 Labs: Abnormal lab results 11/15/18 Range/Units 05:19 WBC 12.6 H (4.5-11.0) K/mm3 RBC 2.54 L (3.65-5.03) M/mm3 Hgb 7.2 L (11.8-15.2) gm/dl Hct 23.0 L (35.5-45.6) % RDW 18.8 H (13.2-15.2) %
[2018-11-15] MEDS: NORVASC PO SCH (10:38)
[2018-11-15] MEDS: COREG PO SCH (10:38)
[2018-11-15] MEDS: EMTRIVA PO SCH (10:39)
[2018-11-15] MEDS: PREZISTA PO SCH (10:39)
[2018-11-15] MEDS: PREVACID SOLUTAB FEEDTUBE SCH ×2 (10:39→22:31)
[2018-11-15] MEDS: MEPRON PO SCH (10:39)
[2018-11-15] MEDS: METAMUCIL PO SCH (10:40)
[2018-11-15] MEDS: NORVIR PO SCH (10:40)
--- NOTE | 2018-11-15 11:06 | Progress Note ---
Assessment and Plan Assessment and plan: patient is 43 YO Male with HIV, hypertension, previous stroke, Nicotine Dependence, presents to ED for evaluation. Patient was confused and lethargic and unable to provide history. He was seen and evaluated in ED and found to be in distress and unable to protect his airway and was therefore intubated, placed on ventilator in ER then admitted MR brain 10/11 1. Study somewhat degraded by motion artifact. 2 Areas of edema in the basal ganglia and thalami bilaterally, within the jamari and in the cerebral hemispheres bilaterally in the subcortical and deep white matter and in portions of the cortex. 3. Areas of encephalomalacia in the basal ganglia bilaterally with evidence of previous hemorrhage or mineral deposition. 4. Numerous small foci of acute infarct in the basal ganglia bilaterally, subinsular regions bilaterally and medial temporal lobes bilaterally and possibly in the occipital cortex bilaterally. The above findings may be secondary to an infectious or noninfectious etiology with a component of vasculopathy or vasculitis resulting in infarcts. Viral encephalopathies and lymphoma would need to be considered in this patient with history of HIV. Neuro ams acute metabolic encephalopathy improving /Acute CVA with Bilateral infarcts with edema Consulted Neurology, he was evaluated by DR. Valentine. mentation is improved, and this is likely his new baseline Dysphagia/ moderate malnutrition -MBS 10/23, recommended pureed with nectar thickened liquids, continue this diet -contact lens manufacturer consulted Hematology Anemia- stable, thrombocytopenia, leukocytosis, coagulopathy; now resolved -Status post platelet (3 units) and prbc (6 units ) transfusion, the patient had only few schistocytes on smear, ADAMS13 91% activity , plt count has recovered ID HIV/AIDS, CD4 count 3, HIV viral load 320,000 acute bacterial PNA, CMV viremia toxo neg, CSF neg Whole blood cmv PCR was positive at 1374 abx and a antiviral per ID high fever, cxr shows improvement of vasc congestion, fup blood cx, femoral vas cath removed 11/06, now has IJ vas cath -he was put back on HAART, he likely has component of IRIS causing fevers and sob -CT on 11/06 confirms patchy infiltrate IRIS vs pna, abx per ID, repeat cxr today -still having high fevers, fup repeat imaging, blood cultures, case dw ID FEN/Renal SHRUTHI- ATN, no signs of renal recovery, now ESRD, Hyperkalemia, urinary retention Severe protein calorie malnutrition sp SPC on 10/12 cont HD per nephrology, no signs of renal recovery -will need permacath prior to dc, but patient continues to have have fever on and off -dietitican consult Pulm acute hypoxic resp failure on MV> 96 hours self extubated 10/16, continue supplemental oxygen CTA neg for PE on 11/06 CVS /Hypertensive urgency and acute systolic CHF He was treated with Cardene drip which was weaned off. Optimize medications for CHF on coreg, no mik due to high K, fluid removal by dialysis Skin Stage 2 sacral wound decub, and bilat buttock wounds left buttocks area. The wound is measured at 9.0x2.5. 25% slough noticed to the wound sacral area. The wound is measured at 3.5x3.5.80% necrotic tissue noticed to the wound right buttocks area. The wound is measured at 5.0x3.0. no evidence of infection, but wounds are necrotic, cont wound care Depression patient appears to have worsening depression. He is not participating with physical therapy, he is not eating. We'll start him on Remeron at bedtime, and consult mental health DVT ppx- heparin sq Dispo: Needs HD and home health set up before he can be dc History Interval history: Patient continues to have weakness of his voice, had low grade fever today Review of systems Constitutional: ,overall malaise, poor appetite today CVS: No chest pain, no orthopnea, no dyspnea on exertion, no pedal edema GI: No abdominal pain, no diarrhea, no vomiting, no constipation Respiratory: sob improved, no wheezing, denies cough Hospitalist Physical - Physical exam Narrative exam: General.: Appears chronically ill, weak voice, cachectic HEENT: Moist mucous membranes, extraocular muscles intact, no lymphadenopathy Neck: supple Cardiac: S1-S2 heard Lungs: rales Abdomen: soft , nontender, nondistended, bowel sounds positive Extremities: contracted extremities Skin: decub on bilat buttock and sacrum Neurologic: no gross focal deficits, generalized weakness Psych: calm, and cooperative, flat affect - Constitutional Vitals: Temp Pulse Resp BP Pulse Ox 97.9 F 124 H 20 133/94 100 11/15/18 05:34 11/15/18 10:36 11/15/18 07:37 11/15/18 10:38 11/15/18 10:36 General appearance: Present: no acute distress Results - Labs CBC & Chem 7: 11/15/18 05:19 11/13/18 09:41 Labs: Laboratory Last Values WBC 12.6 K/mm3 (4.5-11.0) H 11/15/18 05:19 RBC 2.54 M/mm3 (3.65-5.03) L 11/15/18 05:19 Hgb 7.2 gm/dl (11.8-15.2) L 11/15/18 05:19 Hct 23.0 % (35.5-45.6) L 11/15/18 05:19 MCV 91 fl (84-94) 11/15/18 05:19 MCH 29 pg (28-32) 11/15/18 05:19 MCHC 32 % (32-34) 11/15/18 05:19 RDW 18.8 % (13.2-15.2) H 11/15/18 05:19 Plt Count 190 K/mm3 (140-440) 11/15/18 05:19 Lymph % (Auto) Telecommunications Officer 11/13/18 09:41 [place] % (Auto) Telecommunications Officer 11/13/18 09:41 Eos % (Auto) Telecommunications Officer 11/13/18 09:41 Baso % (Auto) Telecommunications Officer 11/13/18 09:41 Lymph # Telecommunications Officer 11/13/18 09:41 [place] # Telecommunications Officer 11/13/18 09:41 Eos # Telecommunications Officer 11/13/18 09:41 Baso # Telecommunications Officer 11/13/18 09:41 Add Manual Diff Complete 11/14/18 07:09 Total Counted 100 11/14/18 07:09 Seg Neutrophils % Telecommunications Officer 11/13/18 09:41 Seg Neuts % (Manual) 89.0 % (40.0-70.0) H 11/14/18 07:09 Band Neutrophils % 0 % 11/14/18 07:09 Lymphocytes % (Manual) 4.0 % (13.4-35.0) L 11/14/18 07:09 Reactive Lymphs % (Man) 0 % 11/14/18 07:09 Monocytes % (Manual) 5.0 % (0.0-7.3) 11/14/18 07:09 Eosinophils % (Manual) 1.0 % (0.0-4.3) 11/14/18 07:09 Basophils % (Manual) 0 % (0.0-1.8) 11/14/18 07:09 Metamyelocytes % 0 % 11/14/18 07:09 Myelocytes % 1.0 % 11/14/18 07:09 Promyelocytes % 0 % 11/14/18 07:09 Blast Cells % 0 % 11/14/18 07:09 Nucleated RBC % Not Reportable 11/14/18 07:09 Seg Neutrophils # Telecommunications Officer 11/13/18 09:41 Seg Neutrophils # Man 11.8 K/mm3 (1.8-7.7) H 11/14/18 07:09 Band Neutrophils # 0.0 K/mm3 11/14/18 07:09 Abs Lymphs (Manual) 267 cells/uL (850-3900) L 10/11/18 17:36 Lymphocytes # (Manual) 0.5 K/mm3 (1.2-5.4) L 11/14/18 07:09 Abs React Lymphs (Man) 0.0 K/mm3 11/14/18 07:09 Monocytes # (Manual) 0.7 K/mm3 (0.0-0.8) 11/14/18 07:09 Eosinophils # (Manual) 0.1 K/mm3 (0.0-0.4) 11/14/18 07:09 Basophils # (Manual) 0.0 K/mm3 (0.0-0.1) 11/14/18 07:09 Metamyelocytes # 0.0 K/mm3 11/14/18 07:09 Myelocytes # 0.1 K/mm3 11/14/18 07:09 Promyelocytes # 0.0 K/mm3 11/14/18 07:09 Blast Cells # 0.0 K/mm3 11/14/18 07:09 Pathologist Review 10/15/18 03:14 WBC Morphology Not Reportable 11/14/18 07:09 Hypersegmented Neuts Not Reportable 11/14/18 07:09 Hyposegmented Neuts Not Reportable 11/14/18 07:09 Hypogranular Neuts Not Reportable 11/14/18 07:09 Smudge Cells Not Reportable 11/14/18 07:09 Toxic Granulation Not Reportable 11/14/18 07:09 Toxic Vacuolation Not Reportable 11/14/18 07:09 Dohle Bodies Not Reportable 11/14/18 07:09 Pelger-Huet Anomaly Not Reportable 11/14/18 07:09 Kartik Rods Not Reportable 11/14/18 07:09 Platelet Estimate Consistent w auto 11/14/18 07:09 Clumped Platelets Not Reportable 11/14/18 07:09 Plt Clumps, EDTA Not Reportable 11/14/18 07:09 Large Platelets Rare 11/14/18 07:09 Giant Platelets Not Reportable 11/14/18 07:09 Platelet Satelliting Not Reportable 11/14/18 07:09 Plt Morphology Comment Not Reportable 11/14/18 07:09 RBC Morphology Not Reportable 11/14/18 07:09 Dimorphic RBCs Not Reportable 11/14/18 07:09 Polychromasia Not Reportable 11/14/18 07:09 Hypochromasia Not Reportable 11/14/18 07:09 Poikilocytosis 1+ 11/14/18 07:09 Anisocytosis 1+ 11/14/18 07:09 Microcytosis Few 11/14/18 07:09 Macrocytosis Few 11/14/18 07:09 Spherocytes Not Reportable 11/14/18 07:09 Pappenheimer Bodies Not Reportable 11/14/18 07:09 Sickle Cells Not Reportable 11/14/18 07:09 Target Cells Rare 11/14/18 07:09 Tear Drop Cells Not Reportable 11/14/18 07:09 Ovalocytes Not Reportable 11/14/18 07:09 Stomatocytes Few 11/10/18 06:54 Helmet Cells Not Reportable 11/14/18 07:09 [place] Bodies Not Reportable 11/14/18 07:09 [place] Rings Not Reportable 11/14/18 07:09 [place] Cells Not Reportable 11/14/18 07:09 Bite Cells Not Reportable 11/14/18 07:09 Crenated Cell Not Reportable 11/14/18 07:09 Elliptocytes Not Reportable 11/14/18 07:09 Acanthocytes (Spur) Not Reportable 11/14/18 07:09 Rouleaux Not Reportable 11/14/18 07:09 Hemoglobin C Crystals Not Reportable 11/14/18 07:09 Schistocytes Rare 11/14/18 07:09 Malaria parasites Not Reportable 11/14/18 07:09 Jv Bodies Not Reportable 11/14/18 07:09 Hem Pathologist Commnt No 11/14/18 07:09 PT 17.7 Sec. (12.2-14.9) H 11/06/18 13:18 INR 1.36 (0.87-1.13) H 11/06/18 13:18 APTT 30.6 Sec. (24.2-36.6) 11/06/18 13:18 Thrombin Time 16.9 Sec. (15.1-19.6) 10/10/18 15:02 Heparin Anti-Xa Level < 0.10 U.I./ml (0.3-0.7) L 11/07/18 21:31 Heparin Anti-Xa, Unfract Negative (Negative) 10/25/18 05:59 POC ABG pH 7.514 (7.35-7.45) H 11/03/18 16:12 POC ABG pCO2 32.0 (35-45) L 10/21/18 09:49 POC ABG pO2 62 (80-105) L 11/03/18 16:12 POC ABG HCO3 23.2 (22-26 mml/L) 11/03/18 16:12 POC ABG Total CO2 24 (23-27mmol/L) 11/03/18 16:12 POC ABG O2 Sat 94 11/03/18 16:12 POC ABG Base Excess 0 ((-2) - (+3)mmol/L) 11/03/18 16:12 FiO2 4 % 11/03/18 16:12 Sodium 139 mmol/L (137-145) 11/13/18 09:41 Potassium 4.3 mmol/L (3.6-5.0) 11/13/18 09:41 Chloride 95.1 mmol/L (98-107) L 11/13/18 09:41 Carbon Dioxide 26 mmol/L (22-30) 11/13/18 09:41 Anion Gap 22 mmol/L 11/13/18 09:41 BUN 31 mg/dL (9-20) H 11/13/18 09:41 Creatinine 5.0 mg/dL (0.8-1.5) H 11/13/18 09:41 Estimated GFR 15 ml/min 11/13/18 09:41 BUN/Creatinine Ratio 6 % 11/13/18 09:41 Glucose 151 mg/dL (75-100) H 11/13/18 09:41 POC Glucose 139 (70-105) H 10/20/18 13:07 Osmolality 338 Mosm/kg 10/11/18 17:35 Lactic Acid 1.80 mmol/L (0.7-2.0) 10/12/18 05:59 Uric Acid 13.4 mg/dL (3.5-7.6) H 10/11/18 17:36 Calcium 8.9 mg/dL (8.4-10.2) 11/13/18 09:41 Phosphorus 8.30 mg/dL (2.5-4.5) H 10/25/18 10:00 Magnesium 3.10 mg/dL (1.7-2.3) H 10/18/18 05:03 Iron 147 ug/dL (49-181) 10/11/18 17:36 TIBC 236 mcg/dL (250-450) L 10/11/18 17:36 Ferritin 03325.0 ng/mL (13.0-400.0) H 10/11/18 17:35 Total Bilirubin 0.40 mg/dL (0.1-1.2) 10/25/18 10:00 Direct Bilirubin 0.2 mg/dL (0-0.2) 10/16/18 04:07 Indirect Bilirubin 0.3 mg/dL 10/16/18 04:07 AST 46 units/L (5-40) H 10/25/18 10:00 ALT 21 units/L (7-56) 10/25/18 10:00 Alkaline Phosphatase 102 units/L (35-129) 10/25/18 10:00 Ammonia 25.0 umol/L (25-60) 10/17/18 14:59 Lactate Dehydrogenase 925 units/L (91-180) H 10/22/18 05:51 Troponin T 0.357 ng/mL (0.00-0.029) H* 11/06/18 05:54 NT-Pro-B Natriuret Pep 70397 pg/mL (0-450) H 10/10/18 15:42 Total Protein 8.1 g/dL (6.3-8.2) 10/25/18 10:00 Albumin 3.5 g/dL (3.9-5) L 10/25/18 10:00 Albumin/Globulin Ratio 0.8 % 10/25/18 10:00 Triglycerides 306 mg/dL (2-149) H 11/05/18 11:29 Cholesterol 145 mg/dL (50-199) 11/05/18 11:29 LDL Cholesterol Direct 89 mg/dL (50-130) 11/05/18 11:29 HDL Cholesterol 25 mg/dL (40-59) L 11/05/18 11:29 Cholesterol/HDL Ratio 5.80 % 11/05/18 11:29 Serotonin Release Assay See scanned result 10/25/18 05:59 Vitamin B12 912.3 pg/mL (211-911) H 10/14/18 08:51 Folate 8.32 ng/mL (7.3-26.0) 10/14/18 08:51 PTH Intact 388.7 pg/mL (15-65) H 10/25/18 10:00 Urine Creatinine 30.8 mg/dL (0.1-20.0) H 10/13/18 04:43 Urine Sodium 106 mmol/L 10/13/18 04:43 Urine Total Protein 75 mg/dL (5-11.8) H 10/13/18 04:43 CSF Appearance Clear 10/16/18 15:00 CSF Color Colorless 10/16/18 15:00 CSF WBC 4 /mm3 (1-10) 10/16/18 15:00 CSF RBC 113 /mm3 (0-0) 10/16/18 15:00 CSF Seg Neutrophils 8.0 % (0-6) 10/16/18 15:00 CSF Lymphocytes % 76.0 % (40-80) 10/16/18 15:00 CSF Reactive Lymphs 2.0 % 10/16/18 15:00 CSF Monocytes % 14.0 % (15-45) 10/16/18 15:00 CSF Eosinophils % 0 % 10/16/18 15:00 CSF Basophils 0 % 10/16/18 15:00 CSF Pathologist Review C 10/16/18 15:00 CSF Glucose 73 mg/dL 10/16/18 15:00 CSF Total Protein 55 mg/dL 10/16/18 15:00 CSF VDRL Nonreactive (Nonreactive) 10/16/18 15:00 Random Vancomycin 18.9 ug/mL (0-40.0) 10/29/18 07:13 Immunofix Electrophor see below 10/11/18 17:36 RENO Screen Negative (Negative) 10/21/18 15:07 Proteinase 3 (PR3) Ab <1.0 AI (<1.0) 10/21/18 15:07 Myeloperoxidase Ab <1.0 AI (<1.0) 10/21/18 15:07 Heparin-induced Plt Ab Negative (Negative) 10/25/18 05:59 UF Heparin High Dose 0 % Release 10/25/18 05:59 VJ UFH Low Dose 0.1 0 % Release 10/25/18 05:59 VJ UFH Low Dose 0.5 14 % Release 10/25/18 05:59 Lymph Enumerat CD4/CD8 0.01 (0.86-5.00) L 10/11/18 17:36 % CD3 Cells 85 % (57-85) 10/11/18 17:36 Absolute CD3 Count 226 cells/uL (840-3060) L 10/11/18 17:36 % CD4 Cells 1 % (30-61) L 10/11/18 17:36 Absolute CD4 Count 3 cells/uL (490-1740) L 10/11/18 17:36 % CD8 Cells 82 % (12-42) H 10/11/18 17:36 Absolute CD8 Count 228 cells/uL (180-1170) 10/11/18 17:36 % CD19 Cells 6 % (6-29) 10/11/18 17:36 Absolute CD19 Count 16 cells/uL (110-660) L 10/11/18 17:36 RPR Titer 1:32 10/11/18 17:37 RPR Reactive (Nonreactive) 10/11/18 17:37 T.pallidum Ab (FTA-ABS) Reactive (Nonreactive) H 10/12/18 Unknown CMV DNA 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 See scanned result 10/24/18 17:47 Hepatitis A IgM Ab Non-reactive (NonReactive) 10/11/18 17:34 Hep Bs Antigen Non-reactive (Negative) 10/11/18 17:34 Hep B Core IgM Ab Non-reactive (NonReactive) 10/11/18 17:34 Hepatitis C Antibody Non-reactive (NonReactive) 10/11/18 17:34 HIV-1 RNA PCR copies/ml 053220 Copies/mL H 10/11/18 17:36 HIV-1 RNA (PCR) log 5.51 Log cps/mL H 10/11/18 17:36 HIV-1 Genotyping See scanned results 10/29/18 19:48 Toxoplasma IgG Ab <7.20 IU/mL (<7.20) 10/13/18 07:54 Miscellaneous Test Flexitest 1 10/31/18 06:43 Blood Type A POSITIVE 11/08/18 11:28 Antibody Screen Negative 11/08/18 11:28 Crossmatch See Detail 11/08/18 11:28 Active Medications - Current Medications Current Medications: Generic Name Dose Route Start Last Admin Trade Name Freq PRN Reason Stop Dose Admin Acetaminophen 500 mg 10/16/18 10:02 11/13/18 22:28 Tylenol PO 500 mg Q6H PRN Administration Fever >101 Albumin Human 25 gm 11/04/18 16:14 Alburx 25% (Albumin) IV CHON PRN Hypotension Albuterol 2.5 mg 10/10/18 18:12 11/15/18 01:28 Proventil IH 2.5 mg Q3HRT PRN Administration Shortness Of Breath Albuterol/Ipratropium 1 ampul 10/25/18 08:00 11/15/18 07:27 Duoneb *Not For Prn Use* IH 1 ampul TIDRT RUBI Administration Amlodipine Besylate 10 mg 10/11/18 10:00 11/15/18 10:38 Norvasc PO 10 mg QDAY RUBI Administration Lipase/Protease/Amylase 1 each 10/11/18 12:58 Pancreaze 10,500 Unit FEEDTUBE PRN PRN For Clogged Feeding Tube Atovaquone 1,500 mg 11/14/18 10:00 11/15/18 10:39 Mepron PO 1,500 mg QDAY RUBI Administration Carvedilol 12.5 mg 10/22/18 22:00 11/15/18 10:38 Coreg PO 12.5 mg BID RUBI Administration Darunavir 800 mg 10/30/18 18:00 11/15/18 10:39 Prezista PO 800 mg QDAY RUBI Administration Emtricitabine 200 mg 11/01/18 10:00 11/15/18 10:39 Emtriva PO 200 mg Q48HR RUBI Administration Epoetin Dany 20,000 unit 11/12/18 15:00 Procrit IV .MWF RUBI Heparin Sodium (Porcine) 5,000 unit 11/04/18 16:15 Heparin IV CHON PRN hemodialysis Heparin Sodium (Porcine) 5,000 unit 11/07/18 22:00 11/15/18 05:47 Heparin SUB-Q 5,000 unit Q8HR RUBI Administration Hydrophilic Ointment 1 applic 10/10/18 17:53 Vaseline Lip Therapy TP Q2HR PRN Dry Lips Sodium Chloride 100 mls @ 999 mls/hr 11/12/18 09:51 Nacl 0.9% IV CHON PRN Hypotension Dextrose/Sodium Chloride 250 mls @ 75 mls/hr 11/12/18 18:00 11/13/18 01:43 D5/0.45ns IV Infused DIRECT RUBI Infusion Cefepime HCl 1 gm in 100 mls @ 200 mls/hr 11/13/18 18:00 11/14/18 18:10 Maxipime/Ns 1 Gm/100 Ml IV Not Given QPM [facility] Protocol Lansoprazole 30 mg 10/15/18 10:00 11/15/18 10:39 Prevacid Solutab FEEDTUBE 30 mg BID RUBI Administration Metoprolol Tartrate 5 mg 10/18/18 14:05 Lopressor IV Q6HR PRN Tachyarrhythmias Mirtazapine 15 mg 11/14/18 22:00 11/14/18 21:54 Remeron Solutab PO 15 mg QHS RUBI Administration Multi-Ingred Cream/Lotion/Oil/Oint 1 applic 10/10/18 17:53 Artificial Tears Ophth Oint OU Q4HR PRN Dry Eye(s) Multivitamins 1 each 10/11/18 10:00 11/14/18 12:04 Theragran Tab PO 1 each DAILY RUBI Administration Ondansetron HCl 4 mg 11/12/18 15:05 Zofran IV Q8H PRN N/V unrelieved by Buddy Faye Hydrophilic Mucilloid 1 each 11/08/18 18:00 11/15/18 10:40 Metamucil PO 1 each QDAY RUBI Administration Ritonavir 100 mg 10/30/18 18:00 11/15/18 10:40 Norvir PO 100 mg QDAY RUBI Administration Simple Syrup 15 ml 10/11/18 12:58 Simple Syrup FEEDTUBE PRN PRN Hypoglycemia Simple Syrup 30 ml 10/11/18 12:58 Simple Syrup FEEDTUBE PRN PRN Hypoglycemia Sodium Bicarbonate 325 mg 10/11/18 12:58 Sodium Bicarbonate FEEDTUBE PRN PRN For Clogged Feeding Tube Sodium Chloride 10 ml 10/10/18 22:00 11/14/18 21:57 Sodium Chloride Flush Syringe 10 Ml IV 10 ml BID RUBI Administration Sodium Chloride 10 ml 10/10/18 18:12 Sodium Chloride Flush Syringe 10 Ml IV PRN PRN LINE FLUSH Tenofovir Disoproxil Fumarate 300 mg 10/30/18 17:45 11/11/18 19:20 Viread PO 300 mg Q96H RUBI Administration Nutrition/Malnutrition Assess - Dietary Evaluation Nutrition/Malnutrition Findings: Nutrition Notes Start: 10/11/18 11:14 Freq: Status: Active Protocol: Document 11/13/18 11:02 SA (Rec: 11/13/18 11:50 SA [id number]) Co-Sign 11/13/18 11:02 LP Nutrition Notes Initial or Follow up Reassessment Current Diagnosis Acute Kidney Injury,CKD(stage I-IV),Hypertension,Stroke Other Pertinent Diagnosis on HD, Acute encephalopathy, HIV/AIDS, Syphilis, dysphagia Current Diet Pureed Labs/Tests Reviewed Pertinent Medications Reviewed Height 5 ft 9 in Weight 51.5 kg [place] Body Weight (kg) 72.72 BMI 16.7 Subjective/Other Information Pt reports appetie is good. Pt reports eating 75% of trays. Pt drinking 100% of ONS. Pt denies chewing/swallowing difficulties. Pt states no N/V /D. Pt unaware of UBW. Pt hasn 't been recieving ONS. Percent of energy/protein needs met: 65%/90% Burn Absent Trauma Absent #1 Nutrition Diagnosis Inadequate oral intake Diagnosis Progress(for reassessment Continues documentation) Is patient on ventilator? No Is Patient Ambulatory and/or Out of Bed No REE-([facility]-confined to bed) 1689.864 Kcal/Kg value to use for calculation 40 Approximate Energy Requirements Using 0 kcal/Kg Calculation Used for Recommendations Kcal/kg Additional Notes Pro needs 1.2-1.5g/k-79g/ day Fluid needs 1ml/kcal Nutrition Intervention Change Diet Order: Continue current Add Supplement/Snack (indicate name/kcal Nepro 1 daily /protein ) Provides kCal: 425 Provides Protein (gm) 19 Goal #1 Meet at least 75% of calorie and protein needs via PO and ONS intakes Anticipated Discharge Needs: [place], Renal diet Follow-Up By: 11/15/18 Additional Comments Follow for PO and ONS intakes
[2018-11-15 11:58] LABS: Anisocytosis 2+; Basophils % (Manual) 0 % (0.0-1.8); Hypochromasia 1+; Platelet Clumps Rare; Platelet Estimate Consistent w Auto; Total Cells Counted 100
[2018-11-15] MEDS: TIVICAY PO SCH (12:48)
[2018-11-15] MEDS: SODIUM CHLORIDE FLUSH SYRINGE 10 ML IV SCH ×2 (12:49→23:10)
[2018-11-15] MEDS: THERAGRAN Tab PO SCH (12:49)
[2018-11-15] MEDS ORDERED: DUONEB *Not for PRN Use IH ONE (13:05)
[2018-11-15] MEDS: FLAGYL 500 MG/100 ML 500 MG/100 ML BAG IV SCH ×2 (16:44→22:30)
--- NOTE | 2018-11-15 16:52 | Consultation ---
History of Present Illness - Reason for Consult Consult date: 11/15/18 Reason for consult: Initial Psychiatric Evaluation - History of Present Psychiatric Illness Patient is a 43 year old male who presents to the emergency room with altered mental status difficulty with speech. Patient has a PMH HIV, HTN, CVA, Nicotine Dependence, and Malnutrition. Psychiatry was consulted for depression. Today the patient is calm and cooperative during the assessment. He presents with impoverished thought content. He denies any past psychiatric history. Per assigned RN patient speaks "very little." Appears guarded and withdrawn. He reports anhedonia, lack of motivation, decrease energy, decrease appetite, and sleep. He reports symptoms have been ongoing since hospital admission. He denies manic episodes. He denies SI/HI's, A/VH's, and delusions. Current Psychiatric Medications: Patient denies. Past Psychiatric History: No previous psychiatric diagnosis; no previous inpatient psychiatric hospitalizations; no outpatient psychiatrist; no previous suicide attempts. Past Medication Trials: Patient denies. History of Alcohol/ Drug Abuse: Patient denies drug/alcohol abuse. History of Trauma/Abuse: Patient denies sexual, physical, and mental abuse. Social History: Some college- highest level of education; monthly income $ 1000; 1 daughter; single; "pretty good" support system (mom); no pending legal issues. Family History of Psychiatric Illness/Substance Abuse: Patient denies. Medications and Allergies Allergies Allergy/AdvReac Type Severity Reaction Status Date / Time Sulfa (Sulfonamide Allergy Unknown Verified 10/10/18 16:54 Antibiotics) Home Medications Medication Instructions Recorded Confirmed Last Taken Type Acetaminophen [Tylenol] 1,000 mg PO Q6HR 10/10/18 10/10/18 Unknown History Amlodipine Besylate [Norvasc] 10 mg PO QDAY 10/10/18 10/10/18 Unknown History Aspirin [Adult Aspirin] 81 mg PO DAILY 10/10/18 10/10/18 Unknown History Atorvastatin [Lipitor Tab] 80 mg PO DAILY 10/10/18 10/10/18 Unknown History Losartan [Cozaar] 100 mg PO QDAY 10/10/18 10/10/18 Unknown History Multivitamin [Multiple Vitamins] 1 each PO DAILY 10/10/18 10/10/18 Unknown History hydroCHLOROthiazide [HCTZ] 25 mg PO QDAY 10/10/18 10/10/18 Unknown History Active Meds: Active Medications Acetaminophen (Tylenol) 500 mg PO Q6H PRN PRN Reason: Fever >101 Last Admin: 11/13/18 22:28 Dose: 500 mg Documented by: Albumin Human (Alburx 25% (Albumin)) 25 gm IV CHON PRN PRN Reason: Hypotension Albuterol (Proventil) 2.5 mg IH Q3HRT PRN PRN Reason: Shortness Of Breath Last Admin: 11/15/18 01:28 Dose: 2.5 mg Documented by: Albuterol/Ipratropium (Duoneb *Not For Prn Use*) 1 ampul IH TIDRT [facility] Last Admin: 11/15/18 07:27 Dose: 1 ampul Documented by: Amlodipine Besylate (Norvasc) 10 mg PO QDAY [facility] Last Admin: 11/15/18 10:38 Dose: 10 mg Documented by: Lipase/Protease/Amylase (Pancreaze Dr 10,500 Unit) 1 each FEEDTUBE PRN PRN PRN Reason: For Clogged Feeding Tube Atovaquone (Mepron) 1,500 mg PO QDAY [facility] Last Admin: 11/15/18 10:39 Dose: 1,500 mg Documented by: Carvedilol (Coreg) 12.5 mg PO BID [facility] Last Admin: 11/15/18 10:38 Dose: 12.5 mg Documented by: Darunavir (Prezista) 800 mg PO QDAY [facility] Last Admin: 11/15/18 10:39 Dose: 800 mg Documented by: Emtricitabine (Emtriva) 200 mg PO Q48HR [facility] Last Admin: 11/15/18 10:39 Dose: 200 mg Documented by: Epoetin Dany (Procrit) 20,000 unit IV .[facility] Heparin Sodium (Porcine) (Heparin) 5,000 unit IV CHON PRN PRN Reason: hemodialysis Heparin Sodium (Porcine) (Heparin) 5,000 unit SUB-Q Q8HR [facility] Last Admin: 11/15/18 14:52 Dose: 5,000 unit Documented by: Hydrophilic Ointment (Vaseline Lip Therapy) 1 applic TP Q2HR PRN PRN Reason: Dry Lips Sodium Chloride (Nacl 0.9%) 100 mls @ 999 mls/hr IV CHON PRN PRN Reason: Hypotension Dextrose/Sodium Chloride (D5/0.45ns) 250 mls @ 75 mls/hr IV DIRECT [facility] Last Infusion: 11/13/18 01:43 Dose: Infused Documented by: Cefepime HCl (Maxipime/Ns 1 Gm/100 Ml) 1 gm in 100 mls @ 200 mls/hr IV QPM [facility]; Protocol Last Admin: 11/14/18 18:10 Dose: Not Given Documented by: Metronidazole (Flagyl 500 Mg/100 Ml) 500 mg in 100 mls @ 100 mls/hr IV Q8HR [facility]; Protocol Last Admin: 11/15/18 16:44 Dose: 100 mls/hr Documented by: Lansoprazole (Prevacid Solutab) 30 mg FEEDTUBE BID [facility] Last Admin: 11/15/18 10:39 Dose: 30 mg Documented by: Metoprolol Tartrate (Lopressor) 5 mg IV Q6HR PRN PRN Reason: Tachyarrhythmias Mirtazapine (Remeron Solutab) 15 mg PO QHS [facility] Last Admin: 11/14/18 21:54 Dose: 15 mg Documented by: Multi-Ingred Cream/Lotion/Oil/Oint (Artificial Tears Ophth Oint) 1 applic OU Q4HR PRN PRN Reason: Dry Eye(s) Multivitamins (Theragran Tab) 1 each PO DAILY [facility] Last Admin: 11/15/18 12:49 Dose: 1 each Documented by: Ondansetron HCl (Zofran) 4 mg IV Q8H PRN PRN Reason: N/V unrelieved by Reglan Psyllium Hydrophilic Mucilloid (Metamucil) 1 each PO QDAY [facility] Last Admin: 11/15/18 10:40 Dose: 1 each Documented by: Ritonavir (Norvir) 100 mg PO QDAY [facility] Last Admin: 11/15/18 10:40 Dose: 100 mg Documented by: Simple Syrup (Simple Syrup) 15 ml FEEDTUBE PRN PRN PRN Reason: Hypoglycemia Simple Syrup (Simple Syrup) 30 ml FEEDTUBE PRN PRN PRN Reason: Hypoglycemia Sodium Bicarbonate (Sodium Bicarbonate) 325 mg FEEDTUBE PRN PRN PRN Reason: For Clogged Feeding Tube Sodium Chloride (Sodium Chloride Flush Syringe 10 Ml) 10 ml IV BID [facility] Last Admin: 11/15/18 12:49 Dose: Not Given Documented by: Sodium Chloride (Sodium Chloride Flush Syringe 10 Ml) 10 ml IV PRN PRN PRN Reason: LINE FLUSH Tenofovir Disoproxil Fumarate (Viread) 300 mg PO Q96H [facility] Last Admin: 11/11/18 19:20 Dose: 300 mg Documented by: Mental Status Exam - Vital signs Last Vital Signs Temp 98.0 F 11/15/18 16:29 Pulse 116 H 11/15/18 16:29 Resp 18 11/15/18 16:29 BP 129/89 11/15/18 16:29 Pulse Ox 100 11/15/18 16:29 - Exam Narrative exam: Mental Status Exam Appearance: calm Behavior: regular eye contact; guarded/withdrawn Speech: regular rate and soft tone Mood: " good"; depressed Affect: incongruent to mood Thought Process: organized but impoverished Thought Content: no gestures of SI/HI's, A/VH's, and delusions Motor Activity: laying in bed Cognition: A/O x 3 Insight: fair Judgment: fair to variable Results Result Diagrams: 11/15/18 05:19 11/13/18 09:41 Abnormal lab results 11/15/18 Range/Units 05:19 WBC 12.6 H (4.5-11.0) K/mm3 RBC 2.54 L (3.65-5.03) M/mm3 Hgb 7.2 L (11.8-15.2) gm/dl Hct 23.0 L (35.5-45.6) % RDW 18.8 H (13.2-15.2) % Seg Neuts % (Manual) 94.0 H (40.0-70.0) % Lymphocytes % (Manual) 1.0 L (13.4-35.0) % Nucleated RBC % 5.0 H (0.0-0.9) % Seg Neutrophils # Man 11.8 H (1.8-7.7) K/mm3 Lymphocytes # (Manual) 0.1 L (1.2-5.4) K/mm3 All other labs normal. Assessment and Plan Assessment and plan: Impression: No PPHx. MDD, recurrent, severe, without psychosis. Today the patient is calm and cooperative during the assessment. Presents guarded/withdrawn. He denies SI/HI's, A/VH's, and delusions. Recommendation/Plan: 1. Will reassess in 24 hour. 2. Attempt to gain collateral. 3. Remeron 7.5mg po QHS depression/insomnia. Discussed possible side effects of increase suicidality and medication induced george in reference to Remeron. Disposition: Will reassess in 24 hours. Medication management. Will staff with Dr. Prema Mendez.
[2018-11-15] MEDS: MAXIPIME/NS 1 GM/100 ML 1 GM/100 ML BAG IV SCH (18:06)
[2018-11-15] MEDS: VIREAD PO SCH (18:14)
[2018-11-15] MEDS: LOPRESSOR PO SCH (20:22)
[2018-11-15] MEDS: REMERON PO SCH (22:31)
[2018-11-16] MEDS: LOPRESSOR PO SCH ×3 (02:40→18:10)
[2018-11-16] MEDS: FLAGYL 500 MG/100 ML 500 MG/100 ML BAG IV SCH ×2 (06:12→13:39)
[2018-11-16] MEDS: HEPARIN SUB-Q SCH ×2 (06:12→13:39)
[2018-11-16] MEDS: DUONEB *Not for PRN Use IH SCH ×3 (07:57→21:40)
--- NOTE | 2018-11-16 11:04 | Progress Note ---
Assessment and Plan Cultures: Blood culture 10/10/2018 no growth. Sputum culture 10/10/2018 Ana Paula albicans. Crypto Ag 10/10/2018 neg. Urine culture 10/13/2018 no growth. Blood culture 10/17/2018 no growth. Blood culture 10/20/2018: no growth Stool Occult Blood 10/23/18: positive Blood culture 10/29/18: negative Urine culture 10/31/18: Ana Paula Blood culture 11/05/18: No growth Blood culture 11/14/18: no growth to date Assessment: 43 y/o male with history of HIV (unknown CD4/VL/ART intake), HTN, CVA 6 months ago at [place], Nicotine Dependence, Malnutrition; admitted on 10/10/2018 due to AMS (confusion/lethargy) and slurred speech for 24 h: 1) SIRS versus sepsis: no fever > 48 hours. leukocytosis trending down. Etiology unknown. Could be related to decubiti, seems to be responding to abx - CXR neg - BNP 70K - Troponin 0.2 - LDH 2242 -chest CT :Patchy airspace disease in the right lower lobe compatible with pneumonia. No evidence of pleural effusion. -repeat CXR : clear lungs and normal bony and soft tissue structures. Patchy airspace disease in the right lower lobe has resolved since 11/07/18 2) Acute hypoxemic respiratory failure: for airway protection +/- ? pneumonia. Repeat CXR no consolidations. Ana Paula in tracha sp likely a colonizer. Extubated 10/15. Continues on atovaquone as prophylaxis. Patient has sulfa allergy. 3) Acute encephalopathy: Improved.; multifactorial ?from hypertensive urgency +/- brain opportunistic infection. DDx: Neurosyphilis, VZV/CMV encephalitis versus BREAST BUFFER lymphoma versus less likely PML v/s ischemic CVA (seems more likely) - CT head showed bilateral chronic ischemic changes. - Brain MRI showed areas of edema in the basal ganglia and thalami bilat erally, within the jamari and in the cerebral hemispheres bilaterally in the subcortical and deep white matter and in portions of the cortex, areas of encephalomalacia in the basal ganglia bilaterally with evidence of previous hemorrhage or mineral deposition and numerous small foci of acute infarct in the basal ganglia bilaterally, subinsular regions bilaterally and medial temporal lobes bilaterally and possibly in the occipital cortex bilaterally. - Brain MRA showed possible dissection versus artifact at the basilar artery. Luminal irregularity at the anterior, middle, and posterior cerebral arteries as well as the carotid siphons may represent mild to moderate atherosclerotic disease. More notable narrowing at the distal right A1 segment. Differential diagnosis includes motion artifact and vasculitis. Vertebral arteries are not clearly visualized. - CSF wbc 4, rbc 113, Seg 8%, Lymph 76%, protein 55, glucose 73 which is not c/w meningitis - RPR reactive 1:32 / FTA ABs reactive, treated with penicillin and ceftriaxone but CSF VDRL Non reactive. - Toxoplasma IgG negative, CSF Toxoplasma PCR: negative - Blood CMV DNA VL=1,370, 3.1 log on ganciclovir - likely reactivation - Repeat CMV DNA PCR 10/24/2018: <200. Off ganciclovir. - Glucan Assay: negative 4) Anemia/thrombocytopenia: improving. 5) Acute on CKD or SHRUTHI ? unclear etiology: on HD. 6) DM: uncontrolled. 7) HIV/AIDS: VL 320,000 / CD4=3 on 10/11/2018. 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 Started HIV treatment on 10/30/2018. Continue HIV therapy,renally adjusted TDF, FTC along with dolutegravir and ritonavir boosted darunavir. 8) Decubitus Ulcers: Left buttocks wound measures 9.0 x 2.5, Sacral wound measures 3.5 x 3.5, 80 % necrotic tissue, Right buttocks wound measures 5.0 x 3.0 per wound care. Recommendations: -continue atovaquone 750 mg BID -continue HIV therapy: renally adjusted TDF, FTC along with dolutegravir and ritonavir boosted darunavir -f/u repeat blood cultures -Continue Cefepime 1 gm Q PM and Vancomycin PK dose, D4 of D7 -Add Flagyl 500 mg IV every 8 hours, D2 -continue wound care - If blood cultures remain negative at 72 hours, OK to place [facility] from ID standpoint. Dr. Arreguin will be security control assessor this weekend, . Please call for questions [facility] M: [phone] O:[phone] Subjective Date of service: 11/16/18 Principal diagnosis: anemia - hiv Interval history: Patient seen and examined. No acute distress observed. Following simple commands. Objective - Exam Narrative Exam: General appearance: Awake, Alert, No acute distress Eyes: anicteric sclerae, moist conjunctivae; no lid-lag; PERRLA HENT: Atraumatic; oropharynx limited Neck: Trachea midline; supple, no thyromegaly or lymphadenopathy Lungs: CTA, with normal respiratory effort CV: tachycardic Abdomen: Soft, non-tender;+SP cath Extremities: No peripheral edema , + contractures bilateral lower extremities Skin: Normal temperature, turgor and texture; no rash, ulcers or subcutaneous nodules Psych: affect: Flat Neuro: Improved, following simple commands - Constitutional Vitals: Vital Signs Temp Pulse Resp BP Pulse Ox 98.3 F 120 H 16 132/88 99 11/16/18 09:15 11/16/18 10:16 11/16/18 09:15 11/16/18 10:16 11/16/18 06:03 Temperature -Last 24 Hours Temperature 98.3 F Temperature 98.5 F Temperature 98.1 F Temperature 98.0 F Temperature 98.4 F - Labs CBC & Chem 7: 11/15/18 05:19 11/13/18 09:41 Labs: Abnormal lab results 11/15/18 Range/Units 05:19 Seg Neuts % (Manual) 94.0 H (40.0-70.0) % Lymphocytes % (Manual) 1.0 L (13.4-35.0) % Nucleated RBC % 5.0 H (0.0-0.9) % Seg Neutrophils # Man 11.8 H (1.8-7.7) K/mm3 Lymphocytes # (Manual) 0.1 L (1.2-5.4) K/mm3
[2018-11-16] MEDS: PROCRIT IV SCH (11:41)
[2018-11-16] MEDS: TIVICAY PO SCH (13:34)
[2018-11-16] MEDS: PREVACID SOLUTAB FEEDTUBE SCH (13:35)
[2018-11-16] MEDS: NORVIR PO SCH (13:35)
[2018-11-16] MEDS: NORVASC PO SCH (13:36)
[2018-11-16] MEDS: METAMUCIL PO SCH (13:37)
[2018-11-16] MEDS: THERAGRAN Tab PO SCH (13:37)
[2018-11-16] MEDS: PREZISTA PO SCH (13:38)
[2018-11-16] MEDS: REMERON SOLUTAB PO SCH (13:38)
[2018-11-16] MEDS: SODIUM CHLORIDE FLUSH SYRINGE 10 ML IV SCH ×2 (13:40→22:00)
[2018-11-16] MEDS: MEPRON PO SCH (13:40)
[2018-11-16] MEDS: LOPRESSOR PO PRN (13:45)
--- NOTE | 2018-11-16 13:55 | Progress Note ---
Assessment and Plan Assessment and plan: patient is 43 YO Male with HIV, hypertension, previous stroke, Nicotine Dependence, presents to ED for evaluation. Patient was confused and lethargic and unable to provide history. He was seen and evaluated in ED and found to be in distress and unable to protect his airway and was therefore intubated, placed on ventilator in ER then admitted MR brain 10/11 1. Study somewhat degraded by motion artifact. 2 Areas of edema in the basal ganglia and thalami bilaterally, within the jamari and in the cerebral hemispheres bilaterally in the subcortical and deep white matter and in portions of the cortex. 3. Areas of encephalomalacia in the basal ganglia bilaterally with evidence of previous hemorrhage or mineral deposition. 4. Numerous small foci of acute infarct in the basal ganglia bilaterally, subinsular regions bilaterally and medial temporal lobes bilaterally and possibly in the occipital cortex bilaterally. The above findings may be secondary to an infectious or noninfectious etiology with a component of vasculopathy or vasculitis resulting in infarcts. Viral encephalopathies and lymphoma would need to be considered in this patient with history of HIV. Neuro ams acute metabolic encephalopathy improving /Acute CVA with Bilateral infarcts with edema Consulted Neurology, he was evaluated by DR. Valentine. mentation is improved, and this is likely his new baseline Dysphagia/ moderate malnutrition -MBS 10/23, recommended pureed with nectar thickened liquids, continue this diet -manager mba consulted Hematology Anemia- stable, thrombocytopenia, leukocytosis, coagulopathy; now resolved -Status post platelet (3 units) and prbc (6 units ) transfusion, the patient had only few schistocytes on smear, ADAMS13 91% activity , plt count has recovered ID HIV/AIDS, CD4 count 3, HIV viral load 320,000 acute bacterial PNA, CMV viremia toxo neg, CSF neg Whole blood cmv PCR was positive at 1374 abx and a antiviral per ID high fever, cxr shows improvement of vasc congestion, fup blood cx, femoral vas cath removed 11/06, now has IJ vas cath -he was put back on HAART, he likely has component of IRIS causing fevers and sob -CT on 11/06 confirms patchy infiltrate IRIS vs pna, abx per ID, repeat cxr today -still having high fevers, fup repeat imaging, blood cultures, case dw ID FEN/Renal SHRUTHI- ATN, no signs of renal recovery, now ESRD, Hyperkalemia, urinary retention Severe protein calorie malnutrition sp SPC on 10/12 cont HD per nephrology, no signs of renal recovery -will need permacath prior to dc, but patient continues to have have fever on and off -dietitican consult Pulm acute hypoxic resp failure on MV> 96 hours self extubated 10/16, continue supplemental oxygen CTA neg for PE on 11/06 CVS /Hypertensive urgency and acute systolic CHF He was treated with Cardene drip which was weaned off. Optimize medications for CHF on coreg, no mik due to high K, fluid removal by dialysis Skin Stage 2 sacral wound decub, and bilat buttock wounds left buttocks area. The wound is measured at 9.0x2.5. 25% slough noticed to the wound sacral area. The wound is measured at 3.5x3.5.80% necrotic tissue noticed to the wound right buttocks area. The wound is measured at 5.0x3.0. no evidence of infection, but wounds are necrotic, cont wound care Depression patient appears to have worsening depression. He is not participating with physical therapy, he is not eating. We'll start him on Remeron at bedtime, and consult mental health Severe debility; he was previously refusing PT and not participating, I spoke to the patient today. He agrees to be more complaints of physical therapy. There fore physical therapy been re-consulted. I explained to him that he now has contractures we will get worse if he does not do therapy DVT ppx- heparin sq Dispo: Needs HD and home health set up before he can be dc History Interval history: Patient continues to have weakness of his voice, no fever today Review of systems Constitutional: ,overall malaise, poor appetite today CVS: No chest pain, no orthopnea, no dyspnea on exertion, no pedal edema GI: No abdominal pain, no diarrhea, no vomiting, no constipation Respiratory: sob improved, no wheezing, denies cough Hospitalist Physical - Physical exam Narrative exam: General.: Appears chronically ill, weak voice, cachectic HEENT: Moist mucous membranes, extraocular muscles intact, no lymphadenopathy Neck: supple Cardiac: S1-S2 heard Lungs: rales Abdomen: soft , nontender, nondistended, bowel sounds positive Extremities: contracted extremities Skin: decub on bilat buttock and sacrum Neurologic: no gross focal deficits, generalized weakness Psych: calm, and cooperative, flat affect - Constitutional Vitals: Temp Pulse Resp BP Pulse Ox 98.3 F 128 H 16 144/94 99 11/16/18 13:15 11/16/18 13:15 11/16/18 13:15 11/16/18 13:15 11/16/18 06:03 General appearance: Present: no acute distress Results - Labs CBC & Chem 7: 11/15/18 05:19 11/13/18 09:41 Labs: Laboratory Last Values WBC 12.6 K/mm3 (4.5-11.0) H 11/15/18 05:19 RBC 2.54 M/mm3 (3.65-5.03) L 11/15/18 05:19 Hgb 7.2 gm/dl (11.8-15.2) L 11/15/18 05:19 Hct 23.0 % (35.5-45.6) L 11/15/18 05:19 MCV 91 fl (84-94) 11/15/18 05:19 MCH 29 pg (28-32) 11/15/18 05:19 MCHC 32 % (32-34) 11/15/18 05:19 RDW 18.8 % (13.2-15.2) H 11/15/18 05:19 Plt Count 190 K/mm3 (140-440) 11/15/18 05:19 Lymph % (Auto) Sanitarian Inspector 11/13/18 09:41 Stephens % (Auto) Sanitarian Inspector 11/13/18 09:41 Eos % (Auto) Sanitarian Inspector 11/13/18 09:41 Baso % (Auto) Sanitarian Inspector 11/13/18 09:41 Lymph # Sanitarian Inspector 11/13/18 09:41 Stephens # Sanitarian Inspector 11/13/18 09:41 Eos # Sanitarian Inspector 11/13/18 09:41 Baso # Sanitarian Inspector 11/13/18 09:41 Add Manual Diff Complete 11/15/18 05:19 Total Counted 100 11/15/18 05:19 Seg Neutrophils % Sanitarian Inspector 11/13/18 09:41 Seg Neuts % (Manual) 94.0 % (40.0-70.0) H 11/15/18 05:19 Band Neutrophils % 0 % 11/15/18 05:19 Lymphocytes % (Manual) 1.0 % (13.4-35.0) L 11/15/18 05:19 Reactive Lymphs % (Man) 0 % 11/15/18 05:19 Monocytes % (Manual) 4.0 % (0.0-7.3) 11/15/18 05:19 Eosinophils % (Manual) 1.0 % (0.0-4.3) 11/15/18 05:19 Basophils % (Manual) 0 % (0.0-1.8) 11/15/18 05:19 Metamyelocytes % 0 % 11/15/18 05:19 Myelocytes % 0 % 11/15/18 05:19 Promyelocytes % 0 % 11/15/18 05:19 Blast Cells % 0 % 11/15/18 05:19 Nucleated RBC % 5.0 % (0.0-0.9) H 11/15/18 05:19 Seg Neutrophils # Sanitarian Inspector 11/13/18 09:41 Seg Neutrophils # Man 11.8 K/mm3 (1.8-7.7) H 11/15/18 05:19 Band Neutrophils # 0.0 K/mm3 11/15/18 05:19 Abs Lymphs (Manual) 267 cells/uL (850-3900) L 10/11/18 17:36 Lymphocytes # (Manual) 0.1 K/mm3 (1.2-5.4) L 11/15/18 05:19 Abs React Lymphs (Man) 0.0 K/mm3 11/15/18 05:19 Monocytes # (Manual) 0.5 K/mm3 (0.0-0.8) 11/15/18 05:19 Eosinophils # (Manual) 0.1 K/mm3 (0.0-0.4) 11/15/18 05:19 Basophils # (Manual) 0.0 K/mm3 (0.0-0.1) 11/15/18 05:19 Metamyelocytes # 0.0 K/mm3 11/15/18 05:19 Myelocytes # 0.0 K/mm3 11/15/18 05:19 Promyelocytes # 0.0 K/mm3 11/15/18 05:19 Blast Cells # 0.0 K/mm3 11/15/18 05:19 Pathologist Review 10/15/18 03:14 WBC Morphology Not Reportable 11/15/18 05:19 Hypersegmented Neuts Not Reportable 11/15/18 05:19 Hyposegmented Neuts Not Reportable 11/15/18 05:19 Hypogranular Neuts Not Reportable 11/15/18 05:19 Smudge Cells Not Reportable 11/15/18 05:19 Toxic Granulation Not Reportable 11/15/18 05:19 Toxic Vacuolation Not Reportable 11/15/18 05:19 Dohle Bodies Not Reportable 11/15/18 05:19 Pelger-Huet Anomaly Not Reportable 11/15/18 05:19 Kartik Rods Not Reportable 11/15/18 05:19 Platelet Estimate Consistent w auto 11/15/18 05:19 Clumped Platelets Rare 11/15/18 05:19 Plt Clumps, EDTA Not Reportable 11/15/18 05:19 Large Platelets Not Reportable 11/15/18 05:19 Giant Platelets Not Reportable 11/15/18 05:19 Platelet Satelliting Not Reportable 11/15/18 05:19 Plt Morphology Comment Not Reportable 11/15/18 05:19 RBC Morphology Not Reportable 11/15/18 05:19 Dimorphic RBCs Not Reportable 11/15/18 05:19 Polychromasia Not Reportable 11/15/18 05:19 Hypochromasia 1+ 11/15/18 05:19 Poikilocytosis Not Reportable 11/15/18 05:19 Anisocytosis 2+ 11/15/18 05:19 Microcytosis Not Reportable 11/15/18 05:19 Macrocytosis Not Reportable 11/15/18 05:19 Spherocytes Not Reportable 11/15/18 05:19 Pappenheimer Bodies Not Reportable 11/15/18 05:19 Sickle Cells Not Reportable 11/15/18 05:19 Target Cells Not Reportable 11/15/18 05:19 Tear Drop Cells Not Reportable 11/15/18 05:19 Ovalocytes Not Reportable 11/15/18 05:19 Stomatocytes Few 11/10/18 06:54 Helmet Cells Not Reportable 11/15/18 05:19 [place] Bodies Not Reportable 11/15/18 05:19 [place] Rings Not Reportable 11/15/18 05:19 [place] Cells Not Reportable 11/15/18 05:19 Bite Cells Not Reportable 11/15/18 05:19 Crenated Cell Not Reportable 11/15/18 05:19 Elliptocytes Not Reportable 11/15/18 05:19 Acanthocytes (Spur) Not Reportable 11/15/18 05:19 Rouleaux Not Reportable 11/15/18 05:19 Hemoglobin C Crystals Not Reportable 11/15/18 05:19 Schistocytes Not Reportable 11/15/18 05:19 Malaria parasites Not Reportable 11/15/18 05:19 Jv Bodies Not Reportable 11/15/18 05:19 Hem Pathologist Commnt No 11/15/18 05:19 PT 17.7 Sec. (12.2-14.9) H 11/06/18 13:18 INR 1.36 (0.87-1.13) H 11/06/18 13:18 APTT 30.6 Sec. (24.2-36.6) 11/06/18 13:18 Thrombin Time 16.9 Sec. (15.1-19.6) 10/10/18 15:02 Heparin Anti-Xa Level < 0.10 U.I./ml (0.3-0.7) L 11/07/18 21:31 Heparin Anti-Xa, Unfract Negative (Negative) 10/25/18 05:59 POC ABG pH 7.514 (7.35-7.45) H 11/03/18 16:12 POC ABG pCO2 32.0 (35-45) L 10/21/18 09:49 POC ABG pO2 62 (80-105) L 11/03/18 16:12 POC ABG HCO3 23.2 (22-26 mml/L) 11/03/18 16:12 POC ABG Total CO2 24 (23-27mmol/L) 11/03/18 16:12 POC ABG O2 Sat 94 11/03/18 16:12 POC ABG Base Excess 0 ((-2) - (+3)mmol/L) 11/03/18 16:12 FiO2 4 % 11/03/18 16:12 Sodium 139 mmol/L (137-145) 11/13/18 09:41 Potassium 4.3 mmol/L (3.6-5.0) 11/13/18 09:41 Chloride 95.1 mmol/L (98-107) L 11/13/18 09:41 Carbon Dioxide 26 mmol/L (22-30) 11/13/18 09:41 Anion Gap 22 mmol/L 11/13/18 09:41 BUN 31 mg/dL (9-20) H 11/13/18 09:41 Creatinine 5.0 mg/dL (0.8-1.5) H 11/13/18 09:41 Estimated GFR 15 ml/min 11/13/18 09:41 BUN/Creatinine Ratio 6 % 11/13/18 09:41 Glucose 151 mg/dL (75-100) H 11/13/18 09:41 POC Glucose 139 (70-105) H 10/20/18 13:07 Osmolality 338 Mosm/kg 10/11/18 17:35 Lactic Acid 1.80 mmol/L (0.7-2.0) 10/12/18 05:59 Uric Acid 13.4 mg/dL (3.5-7.6) H 10/11/18 17:36 Calcium 8.9 mg/dL (8.4-10.2) 11/13/18 09:41 Phosphorus 8.30 mg/dL (2.5-4.5) H 10/25/18 10:00 Magnesium 3.10 mg/dL (1.7-2.3) H 10/18/18 05:03 Iron 147 ug/dL (49-181) 10/11/18 17:36 TIBC 236 mcg/dL (250-450) L 10/11/18 17:36 Ferritin 55540.0 ng/mL (13.0-400.0) H 10/11/18 17:35 Total Bilirubin 0.40 mg/dL (0.1-1.2) 10/25/18 10:00 Direct Bilirubin 0.2 mg/dL (0-0.2) 10/16/18 04:07 Indirect Bilirubin 0.3 mg/dL 10/16/18 04:07 AST 46 units/L (5-40) H 10/25/18 10:00 ALT 21 units/L (7-56) 10/25/18 10:00 Alkaline Phosphatase 102 units/L (35-129) 10/25/18 10:00 Ammonia 25.0 umol/L (25-60) 10/17/18 14:59 Lactate Dehydrogenase 925 units/L (91-180) H 10/22/18 05:51 Troponin T 0.357 ng/mL (0.00-0.029) H* 11/06/18 05:54 NT-Pro-B Natriuret Pep 82764 pg/mL (0-450) H 10/10/18 15:42 Total Protein 8.1 g/dL (6.3-8.2) 10/25/18 10:00 Albumin 3.5 g/dL (3.9-5) L 10/25/18 10:00 Albumin/Globulin Ratio 0.8 % 10/25/18 10:00 Triglycerides 306 mg/dL (2-149) H 11/05/18 11:29 Cholesterol 145 mg/dL (50-199) 11/05/18 11:29 LDL Cholesterol Direct 89 mg/dL (50-130) 11/05/18 11:29 HDL Cholesterol 25 mg/dL (40-59) L 11/05/18 11:29 Cholesterol/HDL Ratio 5.80 % 11/05/18 11:29 Serotonin Release Assay See scanned result 10/25/18 05:59 Vitamin B12 912.3 pg/mL (211-911) H 10/14/18 08:51 Folate 8.32 ng/mL (7.3-26.0) 10/14/18 08:51 PTH Intact 388.7 pg/mL (15-65) H 10/25/18 10:00 Urine Creatinine 30.8 mg/dL (0.1-20.0) H 10/13/18 04:43 Urine Sodium 106 mmol/L 10/13/18 04:43 Urine Total Protein 75 mg/dL (5-11.8) H 10/13/18 04:43 CSF Appearance Clear 10/16/18 15:00 CSF Color Colorless 10/16/18 15:00 CSF WBC 4 /mm3 (1-10) 10/16/18 15:00 CSF RBC 113 /mm3 (0-0) 10/16/18 15:00 CSF Seg Neutrophils 8.0 % (0-6) 10/16/18 15:00 CSF Lymphocytes % 76.0 % (40-80) 10/16/18 15:00 CSF Reactive Lymphs 2.0 % 10/16/18 15:00 CSF Monocytes % 14.0 % (15-45) 10/16/18 15:00 CSF Eosinophils % 0 % 10/16/18 15:00 CSF Basophils 0 % 10/16/18 15:00 CSF Pathologist Review C 10/16/18 15:00 CSF Glucose 73 mg/dL 10/16/18 15:00 CSF Total Protein 55 mg/dL 10/16/18 15:00 CSF VDRL Nonreactive (Nonreactive) 10/16/18 15:00 Random Vancomycin 23.8 ug/mL (0-40.0) 11/16/18 05:06 Immunofix Electrophor see below 10/11/18 17:36 RENO Screen Negative (Negative) 10/21/18 15:07 Proteinase 3 (PR3) Ab <1.0 AI (<1.0) 10/21/18 15:07 Myeloperoxidase Ab <1.0 AI (<1.0) 10/21/18 15:07 Heparin-induced Plt Ab Negative (Negative) 10/25/18 05:59 UF Heparin High Dose 0 % Release 10/25/18 05:59 VJ UFH Low Dose 0.1 0 % Release 10/25/18 05:59 VJ UFH Low Dose 0.5 14 % Release 10/25/18 05:59 Lymph Enumerat CD4/CD8 0.01 (0.86-5.00) L 10/11/18 17:36 % CD3 Cells 85 % (57-85) 10/11/18 17:36 Absolute CD3 Count 226 cells/uL (840-3060) L 10/11/18 17:36 % CD4 Cells 1 % (30-61) L 10/11/18 17:36 Absolute CD4 Count 3 cells/uL (490-1740) L 10/11/18 17:36 % CD8 Cells 82 % (12-42) H 10/11/18 17:36 Absolute CD8 Count 228 cells/uL (180-1170) 10/11/18 17:36 % CD19 Cells 6 % (6-29) 10/11/18 17:36 Absolute CD19 Count 16 cells/uL (110-660) L 10/11/18 17:36 RPR Titer 1:32 10/11/18 17:37 RPR Reactive (Nonreactive) 10/11/18 17:37 T.pallidum Ab (FTA-ABS) Reactive (Nonreactive) H 10/12/18 Unknown CMV DNA PCR log helicopter officer/mL See scanned result 10/24/18 17:47 Hepatitis A IgM Ab Non-reactive (NonReactive) 10/11/18 17:34 Hep Bs Antigen Non-reactive (Negative) 10/11/18 17:34 Hep B Core IgM Ab Non-reactive (NonReactive) 10/11/18 17:34 Hepatitis C Antibody Non-reactive (NonReactive) 10/11/18 17:34 HIV-1 RNA PCR copies/ml [id number] Copies/mL H 10/11/18 17:36 HIV-1 RNA (PCR) log 5.51 Log cps/mL H 10/11/18 17:36 HIV-1 Genotyping See scanned results 10/29/18 19:48 Toxoplasma IgG Ab <7.20 IU/mL (<7.20) 10/13/18 07:54 Miscellaneous Test Flexitest 1 10/31/18 06:43 Blood Type A POSITIVE 11/08/18 11:28 Antibody Screen Negative 11/08/18 11:28 Crossmatch See Detail 11/08/18 11:28 Active Medications - Current Medications Current Medications: Generic Name Dose Route Start Last Admin Trade Name Freq PRN Reason Stop Dose Admin Acetaminophen 500 mg 10/16/18 10:02 11/13/18 22:28 Tylenol PO 500 mg Q6H PRN Administration Fever >101 Albumin Human 25 gm 11/04/18 16:14 Alburx 25% (Albumin) IV CHON PRN Hypotension Albuterol 2.5 mg 10/10/18 18:12 11/15/18 01:28 Proventil IH 2.5 mg Q3HRT PRN Administration Shortness Of Breath Albuterol/Ipratropium 1 ampul 10/25/18 08:00 11/16/18 07:57 Duoneb *Not For Prn Use* IH 1 ampul TIDRT RUBI Administration Amlodipine Besylate 10 mg 10/11/18 10:00 11/15/18 10:38 Norvasc PO 10 mg QDAY RUBI Administration Lipase/Protease/Amylase 1 each 10/11/18 12:58 Pancreaze 10,500 Unit FEEDTUBE PRN PRN For Clogged Feeding Tube Atovaquone 1,500 mg 11/14/18 10:00 11/15/18 10:39 Mepron PO 1,500 mg QDAY RUBI Administration Darunavir 800 mg 10/30/18 18:00 11/15/18 10:39 Prezista PO 800 mg QDAY RUBI Administration Emtricitabine 200 mg 11/01/18 10:00 11/15/18 10:39 Emtriva PO 200 mg Q48HR RUBI Administration Epoetin Dany 20,000 unit 11/12/18 15:00 11/16/18 11:41 Procrit IV 20,000 unit .MWF RUBI Administration Heparin Sodium (Porcine) 5,000 unit 11/04/18 16:15 Heparin IV CHON PRN hemodialysis Heparin Sodium (Porcine) 5,000 unit 11/07/18 22:00 11/16/18 06:12 Heparin SUB-Q 5,000 unit Q8HR RUBI Administration Hydrophilic Ointment 1 applic 10/10/18 17:53 Vaseline Lip Therapy TP Q2HR PRN Dry Lips Sodium Chloride 100 mls @ 999 mls/hr 11/12/18 09:51 Nacl 0.9% IV CHON PRN Hypotension Dextrose/Sodium Chloride 250 mls @ 75 mls/hr 11/12/18 18:00 11/13/18 01:43 D5/0.45ns IV Infused DIRECT RUBI Infusion Cefepime HCl 1 gm in 100 mls @ 200 mls/hr 11/13/18 18:00 11/15/18 18:06 Maxipime/Ns 1 Gm/100 Ml IV 200 mls/hr QPM RUBI Administration Protocol Metronidazole 500 mg in 100 mls @ 100 mls/hr 11/15/18 16:00 11/16/18 06:12 Flagyl 500 Mg/100 Ml IV 100 mls/hr Q8HR RUBI Administration Protocol Vancomycin HCl 750 mg/ Sodium 265 mls @ 166.667 mls/hr 11/17/18 11:00 Chloride IV 11/17/18 12:35 ONCE ONE Lansoprazole 30 mg 10/15/18 10:00 11/15/18 22:31 Prevacid Solutab FEEDTUBE 30 mg BID RUBI Administration Metoprolol Tartrate 5 mg 10/18/18 14:05 Lopressor IV Q6HR PRN Tachyarrhythmias Metoprolol Tartrate 12.5 mg 11/15/18 18:46 Lopressor PO Q6H PRN sustained HR > 130 Metoprolol Tartrate 25 mg 11/15/18 19:00 11/16/18 02:40 Lopressor PO 25 mg Q8H RUBI Administration Mirtazapine 7.5 mg 11/15/18 22:00 11/15/18 22:31 Remeron PO 7.5 mg QHS RUBI Administration Multi-Ingred Cream/Lotion/Oil/Oint 1 applic 10/10/18 17:53 Artificial Tears Ophth Oint OU Q4HR PRN Dry Eye(s) Multivitamins 1 each 10/11/18 10:00 11/15/18 12:49 Theragran Tab PO 1 each DAILY RUBI Administration Ondansetron HCl 4 mg 11/12/18 15:05 Zofran IV Q8H PRN N/V unrelieved by Buddy Faye Hydrophilic Mucilloid 1 each 11/08/18 18:00 11/15/18 10:40 Metamucil PO 1 each QDAY RUBI Administration Ritonavir 100 mg 10/30/18 18:00 11/15/18 10:40 Norvir PO 100 mg QDAY RUBI Administration Simple Syrup 15 ml 10/11/18 12:58 Simple Syrup FEEDTUBE PRN PRN Hypoglycemia Simple Syrup 30 ml 10/11/18 12:58 Simple Syrup FEEDTUBE PRN PRN Hypoglycemia Sodium Bicarbonate 325 mg 10/11/18 12:58 Sodium Bicarbonate FEEDTUBE PRN PRN For Clogged Feeding Tube Sodium Chloride 10 ml 10/10/18 22:00 11/15/18 23:10 Sodium Chloride Flush Syringe 10 Ml IV 10 ml BID RUBI Administration Sodium Chloride 10 ml 10/10/18 18:12 Sodium Chloride Flush Syringe 10 Ml IV PRN PRN LINE FLUSH Tenofovir Disoproxil Fumarate 300 mg 10/30/18 17:45 11/15/18 18:14 Viread PO 300 mg Q96H RUBI Administration Nutrition/Malnutrition Assess - Dietary Evaluation Nutrition/Malnutrition Findings: Nutrition Notes Start: 10/11/18 11:14 Freq: Status: Active Protocol: Document 11/15/18 11:17 RM (Rec: 11/15/18 11:27 [id number]) Nutrition Notes Initial or Follow up Reassessment Current Diagnosis Acute Kidney Injury,CKD(stage I-IV),Hypertension,Heart Failure,Stroke Other Pertinent Diagnosis Depression,Dysphagia,on HD, Acute encephalopathy,HIV/AIDS, Syphilis Current Diet Pureed Labs/Tests Reviewed Pertinent Medications Reviewed Height 5 ft 9 in Weight 51.4 kg [place] Body Weight (kg) 72.72 BMI 16.7 Subjective/Other Information Pt confused and not responding to questions at time of visit . Noted temporal wasting. Per tech pt drinks some of the Nepro. Recorded PO intake 50% X 2 meals. Percent of energy/protein needs met: 51%/70% Burn Absent Trauma Absent #2 Nutrition Diagnosis Malnutrition Etiology dysphagia,AMS, HIV/AIDS As Evidenced by Signs and Symptoms pt BMI of 16.7, temporal wasting #1 Nutrition Diagnosis Inadequate oral intake Diagnosis Progress(for reassessment Continues documentation) Is patient on ventilator? No Is Patient Ambulatory and/or Out of Bed No REE-([facility]-confined to bed) 1688.664 Kcal/Kg value to use for calculation 40 Approximate Energy Requirements Using 6 kcal/Kg Calculation Used for Recommendations Kcal/kg Additional Notes Pro needs 1.2-1.5g/k-79g/ day Fluid needs 1ml/kcal Nutrition Intervention Change Diet Order: Continue current Add Supplement/Snack (indicate name/kcal Nepro 1 daily /protein ) Provides kCal: 425 Provides Protein (gm) 19 Goal #1 Meet at least 75% of calorie and protein needs via PO and ONS intakes Anticipated Discharge Needs: Pureed, Renal diet Follow-Up By: 11/19/18 Additional Comments Follow for PO and ONS intakes
--- NOTE | 2018-11-16 15:15 | Progress Note ---
Assessment and Plan Impression * End-stage renal disease * Respiratory failure * Encephalopathy * Sepsis * Anemia * Thrombocytopenia * HIV disease Recommendations * Patient most likely has end-stage renal disease. * He has been dialysis dependent for more than 5 weeks. Has remained oliguric and dialysis dependent. Renal ultrasound also shows bilateral echogenic kidneys . Do not expect recovery of renal function at this time. * Continue dialysis on MWF schedule for now * He may have had a component of ATN * Avoid nephrotoxins * Adjust meds for GFR less than 10 * Monitor fluid status and electrolytes closely * Consultants notes appreciated * Patient is still with a Vas-Cath. He will require PermCath. Discussed with vascular surgery. Not safe to discharge patient with Vas-Cath. Once discharge arrangements have been made, shall request for PermCath again. Subjective Date of service: 11/16/18 Principal diagnosis: anemia - hiv Interval history: Patient clinically about the same. Uneventful hemodialysis earlier today. Objective - Vital Signs Vital signs: Vital Signs - 12hr 11/16/18 11/16/18 11/16/18 06:03 09:15 09:30 Temperature 98.5 F 98.3 F Pulse Rate 117 H 126 H 126 H Respiratory 18 16 Rate Blood Pressure 134/91 149/87 149/87 O2 Sat by Pulse 99 Oximetry 11/16/18 11/16/18 11/16/18 09:45 10:00 10:16 Temperature Pulse Rate 125 H 120 H 120 H Respiratory Rate Blood Pressure 141/82 141/87 132/88 O2 Sat by Pulse Oximetry 11/16/18 11/16/18 11/16/18 10:30 10:45 11:00 Temperature Pulse Rate 123 H 126 H 127 H Respiratory Rate Blood Pressure 142/87 125/85 141/92 O2 Sat by Pulse Oximetry 11/16/18 11/16/18 11/16/18 11:16 11:30 11:45 Temperature Pulse Rate 126 H 98 H 120 H Respiratory Rate Blood Pressure 126/86 124/87 118/67 O2 Sat by Pulse Oximetry 11/16/18 11/16/18 11/16/18 12:01 12:15 12:31 Temperature Pulse Rate 126 H 128 H 126 H Respiratory Rate Blood Pressure 154/97 139/90 120/88 O2 Sat by Pulse Oximetry 11/16/18 11/16/18 11/16/18 13:00 13:15 13:36 Temperature 98.3 F Pulse Rate 128 H 128 H Respiratory 16 Rate Blood Pressure 140/84 144/94 144/94 O2 Sat by Pulse Oximetry 11/16/18 13:45 Temperature Pulse Rate Respiratory Rate Blood Pressure 144/94 O2 Sat by Pulse Oximetry - General Appearance General appearance: chronically ill, frail EENT: PERRL, mucous membranes moist Neck: no JVD, no thyromegaly, no carotid bruit, supple, other (right IJ Vas-Cath in place) Respiratory: Present: Clear to Ascultation Cardiology: regular, normal heart rate, S1S2, no murmurs Gastrointestinal: normal, normoactive bowel sounds Integumentary: other (no edema) - Lab 11/15/18 05:19 11/13/18 09:41 Most recent lab results Calcium 8.9 mg/dL (8.4-10.2) 11/13/18 09:41 Phosphorus 8.30 mg/dL (2.5-4.5) H 10/25/18 10:00 Magnesium 3.10 mg/dL (1.7-2.3) H 10/18/18 05:03 Urine Creatinine 30.8 mg/dL (0.1-20.0) H 10/13/18 04:43 Urine Sodium 106 mmol/L 10/13/18 04:43 Urine Total Protein 75 mg/dL (5-11.8) H 10/13/18 04:43 Medications & Allergies - Medications Allergies/Adverse Reactions: Allergies Sulfa (Sulfonamide Antibiotics) Allergy (Verified 10/10/18 16:54) Unknown Home Medications: Home Medications Medication Instructions Recorded Confirmed Last Taken Type Acetaminophen [Tylenol] 1,000 mg PO Q6HR 10/10/18 10/10/18 Unknown History Amlodipine Besylate [Norvasc] 10 mg PO QDAY 10/10/18 10/10/18 Unknown History Aspirin [Adult Aspirin] 81 mg PO DAILY 10/10/18 10/10/18 Unknown History Atorvastatin [Lipitor Tab] 80 mg PO DAILY 10/10/18 10/10/18 Unknown History Losartan [Cozaar] 100 mg PO QDAY 10/10/18 10/10/18 Unknown History Multivitamin [Multiple Vitamins] 1 each PO DAILY 10/10/18 10/10/18 Unknown History hydroCHLOROthiazide [HCTZ] 25 mg PO QDAY 10/10/18 10/10/18 Unknown History Active Medications: Generic Name Dose Route Start Last Admin Trade Name Freq PRN Reason Stop Dose Admin Acetaminophen 500 mg 10/16/18 10:02 11/13/18 22:28 Tylenol PO 500 mg Q6H PRN Administration Fever >101 Albumin Human 25 gm 11/04/18 16:14 Alburx 25% (Albumin) IV CHON PRN Hypotension Albuterol 2.5 mg 10/10/18 18:12 11/15/18 01:28 Proventil IH 2.5 mg Q3HRT PRN Administration Shortness Of Breath Albuterol/Ipratropium 1 ampul 10/25/18 08:00 11/16/18 07:57 Duoneb *Not For Prn Use* IH 1 ampul TIDRT RUBI Administration Amlodipine Besylate 10 mg 10/11/18 10:00 11/16/18 13:36 Norvasc PO 10 mg QDAY RUBI Administration Lipase/Protease/Amylase 1 each 10/11/18 12:58 Pancreaze 10,500 Unit FEEDTUBE PRN PRN For Clogged Feeding Tube Atovaquone 1,500 mg 11/14/18 10:00 11/16/18 13:40 Mepron PO 1,500 mg QDAY RUBI Administration Darunavir 800 mg 10/30/18 18:00 11/16/18 13:38 Prezista PO 800 mg QDAY RUBI Administration Emtricitabine 200 mg 11/01/18 10:00 11/15/18 10:39 Emtriva PO 200 mg Q48HR RUBI Administration Epoetin Dany 20,000 unit 11/12/18 15:00 11/16/18 11:41 Procrit IV 20,000 unit .MWF RUBI Administration Heparin Sodium (Porcine) 5,000 unit 11/04/18 16:15 Heparin IV CHON PRN hemodialysis Heparin Sodium (Porcine) 5,000 unit 11/07/18 22:00 11/16/18 13:39 Heparin SUB-Q 5,000 unit Q8HR RUBI Administration Hydrophilic Ointment 1 applic 10/10/18 17:53 Vaseline Lip Therapy TP Q2HR PRN Dry Lips Sodium Chloride 100 mls @ 999 mls/hr 11/12/18 09:51 Nacl 0.9% IV CHON PRN Hypotension Dextrose/Sodium Chloride 250 mls @ 75 mls/hr 11/12/18 18:00 11/13/18 01:43 D5/0.45ns IV Infused DIRECT RUBI Infusion Cefepime HCl 1 gm in 100 mls @ 200 mls/hr 11/13/18 18:00 11/15/18 18:06 Maxipime/Ns 1 Gm/100 Ml IV 200 mls/hr QPM RUBI Administration Protocol Metronidazole 500 mg in 100 mls @ 100 mls/hr 11/15/18 16:00 11/16/18 13:39 Flagyl 500 Mg/100 Ml IV 100 mls/hr Q8HR RUBI Administration Protocol Vancomycin HCl 750 mg/ Sodium 265 mls @ 166.667 mls/hr 11/17/18 11:00 Chloride IV 11/17/18 12:35 ONCE ONE Lansoprazole 30 mg 10/15/18 10:00 11/16/18 13:35 Prevacid Solutab FEEDTUBE 30 mg BID RUBI Administration Metoprolol Tartrate 5 mg 10/18/18 14:05 Lopressor IV Q6HR PRN Tachyarrhythmias Metoprolol Tartrate 12.5 mg 11/15/18 18:46 11/16/18 13:45 Lopressor PO 12.5 mg Q6H PRN Administration sustained HR > 130 Metoprolol Tartrate 25 mg 11/15/18 19:00 11/16/18 14:09 Lopressor PO Not Given Q8H RUBI Mirtazapine 7.5 mg 11/15/18 22:00 11/15/18 22:31 Remeron PO 7.5 mg QHS RUBI Administration Multi-Ingred Cream/Lotion/Oil/Oint 1 applic 10/10/18 17:53 Artificial Tears Ophth Oint OU Q4HR PRN Dry Eye(s) Multivitamins 1 each 10/11/18 10:00 11/16/18 13:37 Theragran Tab PO 1 each DAILY RUBI Administration Ondansetron HCl 4 mg 11/12/18 15:05 Zofran IV Q8H PRN N/V unrelieved by Buddy Faye Hydrophilic Mucilloid 1 each 11/08/18 18:00 11/16/18 13:37 Metamucil PO 1 each QDAY RUBI Administration Ritonavir 100 mg 10/30/18 18:00 11/16/18 13:35 Norvir PO 100 mg QDAY RUBI Administration Simple Syrup 15 ml 10/11/18 12:58 Simple Syrup FEEDTUBE PRN PRN Hypoglycemia Simple Syrup 30 ml 10/11/18 12:58 Simple Syrup FEEDTUBE PRN PRN Hypoglycemia Sodium Bicarbonate 325 mg 10/11/18 12:58 Sodium Bicarbonate FEEDTUBE PRN PRN For Clogged Feeding Tube Sodium Chloride 10 ml 10/10/18 22:00 11/16/18 13:40 Sodium Chloride Flush Syringe 10 Ml IV 10 ml BID RUBI Administration Sodium Chloride 10 ml 10/10/18 18:12 Sodium Chloride Flush Syringe 10 Ml IV PRN PRN LINE FLUSH Tenofovir Disoproxil Fumarate 300 mg 10/30/18 17:45 11/15/18 18:14 Viread PO 300 mg Q96H RUBI Administration
[2018-11-16] MEDS: MAXIPIME/NS 1 GM/100 ML 1 GM/100 ML BAG IV SCH (17:09)
[2018-11-17] MEDS: PREVACID SOLUTAB FEEDTUBE SCH ×3 (00:23→23:13)
[2018-11-17] MEDS: FLAGYL 500 MG/100 ML 500 MG/100 ML BAG IV SCH ×4 (00:23→23:14)
[2018-11-17] MEDS: REMERON PO SCH ×2 (00:24→23:13)
[2018-11-17] MEDS: HEPARIN SUB-Q SCH ×4 (00:24→23:13)
[2018-11-17] MEDS: TYLENOL PO PRN (00:29)
[2018-11-17] MEDS: LOPRESSOR PO SCH ×4 (03:37→23:00)
[2018-11-17] MEDS: DUONEB *Not for PRN Use IH SCH ×3 (07:47→21:16)
--- NOTE | 2018-11-17 09:34 | Progress Note ---
Assessment and Plan Assessment and plan: patient is 43 YO Male with HIV, hypertension, previous stroke, Nicotine Dependence, presents to ED for evaluation. Patient was confused and lethargic and unable to provide history. He was seen and evaluated in ED and found to be in distress and unable to protect his airway and was therefore intubated, placed on ventilator in ER then admitted MR brain 10/11 1. Study somewhat degraded by motion artifact. 2 Areas of edema in the basal ganglia and thalami bilaterally, within the jamari and in the cerebral hemispheres bilaterally in the subcortical and deep white matter and in portions of the cortex. 3. Areas of encephalomalacia in the basal ganglia bilaterally with evidence of previous hemorrhage or mineral deposition. 4. Numerous small foci of acute infarct in the basal ganglia bilaterally, subinsular regions bilaterally and medial temporal lobes bilaterally and possibly in the occipital cortex bilaterally. The above findings may be secondary to an infectious or noninfectious etiology with a component of vasculopathy or vasculitis resulting in infarcts. Viral encephalopathies and lymphoma would need to be considered in this patient with history of HIV. Neuro ams acute metabolic encephalopathy improving /Acute CVA with Bilateral infarcts with edema Consulted Neurology, he was evaluated by DR. Valentine. 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 Hematology Anemia- stable, thrombocytopenia, leukocytosis, coagulopathy; now resolved -Status post platelet (3 units) and prbc (6 units ) transfusion, the patient had only few schistocytes on smear, ADAMS13 91% activity , plt count has recovered ID HIV/AIDS, CD4 count 3, HIV viral load 320,000 acute bacterial PNA, CMV viremia toxo neg, CSF neg ,Whole blood cmv PCR was positive at 1374 abx and anti- antiviral per ID,continues to have fever on and off -he was put back on HAART, he likely has component of IRIS causing fevers and sob -most recent cxr 11/12 show no infiltrate, dw ID oral thrus, nystatin swish and spit ordered x 7 days FEN/Renal SHRUTHI- ATN, no signs of renal recovery, now ESRD, Hyperkalemia, urinary retention Severe protein calorie malnutrition sp SPC on 10/12 cont HD per nephrology, no signs of renal recovery -will need permacath prior to dc, but patient continues to have have fever on and off -dietitican consult Pulm acute hypoxic resp failure on MV> 96 hours self extubated 10/16, continue supplemental oxygen CTA neg for PE on 11/06 CVS /Hypertensive urgency and acute systolic CHF He was treated with Cardene drip which was weaned off. Optimize medications for CHF on coreg, no mik due to high K, fluid removal by dialysis Skin Stage 2 sacral wound decub, and bilat buttock wounds left buttocks area. The wound is measured at 9.0x2.5. 25% slough noticed to the wound sacral area. The wound is measured at 3.5x3.5.80% necrotic tissue noticed to the wound right buttocks area. The wound is measured at 5.0x3.0. no evidence of infection, but wounds are necrotic, cont wound care Depression patient appears to have worsening depression. He is not participating with physical therapy, he is not eating. Mental health consult appreciated, continue Remeron Severe debility; he was previously refusing PT and not participating, I spoke to the patient . He agrees to be more complaints of physical therapy. he is now participating with PT, contractures are improving DVT ppx- heparin sq Dispo: Needs HD and home health set up before he can be dc History Interval history: Patient continues to have weakness of his voice, low grade fever Review of systems Constitutional: ,overall malaise, poor appetite today CVS: No chest pain, no orthopnea, no dyspnea on exertion, no pedal edema GI: No abdominal pain, no diarrhea, no vomiting, no constipation Respiratory: sob improved, no wheezing, denies cough Hospitalist Physical - Physical exam Narrative exam: General.: Appears chronically ill, weak voice, cachectic HEENT: Moist mucous membranes, extraocular muscles intact, no lymphadenopathy Neck: supple Cardiac: S1-S2 heard Lungs: rales Abdomen: soft , nontender, nondistended, bowel sounds positive Extremities: contracted extremities Skin: decub on bilat buttock and sacrum Neurologic: no gross focal deficits, generalized weakness Psych: calm, and cooperative, flat affect - Constitutional Vitals: Temp Pulse Resp BP Pulse Ox 98.4 F 109 H 20 124/85 99 11/17/18 04:58 11/17/18 04:58 11/17/18 04:58 11/17/18 04:58 11/17/18 04:58 General appearance: Present: no acute distress Results - Labs CBC & Chem 7: 11/15/18 05:19 11/13/18 09:41 Labs: Laboratory Last Values WBC 12.6 K/mm3 (4.5-11.0) H 11/15/18 05:19 RBC 2.54 M/mm3 (3.65-5.03) L 11/15/18 05:19 Hgb 7.2 gm/dl (11.8-15.2) L 11/15/18 05:19 Hct 23.0 % (35.5-45.6) L 11/15/18 05:19 MCV 91 fl (84-94) 11/15/18 05:19 MCH 29 pg (28-32) 11/15/18 05:19 MCHC 32 % (32-34) 11/15/18 05:19 RDW 18.8 % (13.2-15.2) H 11/15/18 05:19 Plt Count 190 K/mm3 (140-440) 11/15/18 05:19 Lymph % (Auto) Shipwright Helper 11/13/18 09:41 Ogle % (Auto) Shipwright Helper 11/13/18 09:41 Eos % (Auto) Shipwright Helper 11/13/18 09:41 Baso % (Auto) Shipwright Helper 11/13/18 09:41 Lymph # Shipwright Helper 11/13/18 09:41 Ogle # Shipwright Helper 11/13/18 09:41 Eos # Shipwright Helper 11/13/18 09:41 Baso # Shipwright Helper 11/13/18 09:41 Add Manual Diff Complete 11/15/18 05:19 Total Counted 100 11/15/18 05:19 Seg Neutrophils % Shipwright Helper 11/13/18 09:41 Seg Neuts % (Manual) 94.0 % (40.0-70.0) H 11/15/18 05:19 Band Neutrophils % 0 % 11/15/18 05:19 Lymphocytes % (Manual) 1.0 % (13.4-35.0) L 11/15/18 05:19 Reactive Lymphs % (Man) 0 % 11/15/18 05:19 Monocytes % (Manual) 4.0 % (0.0-7.3) 11/15/18 05:19 Eosinophils % (Manual) 1.0 % (0.0-4.3) 11/15/18 05:19 Basophils % (Manual) 0 % (0.0-1.8) 11/15/18 05:19 Metamyelocytes % 0 % 11/15/18 05:19 Myelocytes % 0 % 11/15/18 05:19 Promyelocytes % 0 % 11/15/18 05:19 Blast Cells % 0 % 11/15/18 05:19 Nucleated RBC % 5.0 % (0.0-0.9) H 11/15/18 05:19 Seg Neutrophils # Shipwright Helper 11/13/18 09:41 Seg Neutrophils # Man 11.8 K/mm3 (1.8-7.7) H 11/15/18 05:19 Band Neutrophils # 0.0 K/mm3 11/15/18 05:19 Abs Lymphs (Manual) 267 cells/uL (850-3900) L 10/11/18 17:36 Lymphocytes # (Manual) 0.1 K/mm3 (1.2-5.4) L 11/15/18 05:19 Abs React Lymphs (Man) 0.0 K/mm3 11/15/18 05:19 Monocytes # (Manual) 0.5 K/mm3 (0.0-0.8) 11/15/18 05:19 Eosinophils # (Manual) 0.1 K/mm3 (0.0-0.4) 11/15/18 05:19 Basophils # (Manual) 0.0 K/mm3 (0.0-0.1) 11/15/18 05:19 Metamyelocytes # 0.0 K/mm3 11/15/18 05:19 Myelocytes # 0.0 K/mm3 11/15/18 05:19 Promyelocytes # 0.0 K/mm3 11/15/18 05:19 Blast Cells # 0.0 K/mm3 11/15/18 05:19 Pathologist Review 10/15/18 03:14 WBC Morphology Not Reportable 11/15/18 05:19 Hypersegmented Neuts Not Reportable 11/15/18 05:19 Hyposegmented Neuts Not Reportable 11/15/18 05:19 Hypogranular Neuts Not Reportable 11/15/18 05:19 Smudge Cells Not Reportable 11/15/18 05:19 Toxic Granulation Not Reportable 11/15/18 05:19 Toxic Vacuolation Not Reportable 04/04/19 05:19 Dohle Bodies Not Reportable 11/15/18 05:19 Pelger-Huet Anomaly Not Reportable 11/15/18 05:19 Kartik Rods Not Reportable 11/15/18 05:19 Platelet Estimate Consistent w auto 11/15/18 05:19 Clumped Platelets Rare 11/15/18 05:19 Plt Clumps, EDTA Not Reportable 11/15/18 05:19 Large Platelets Not Reportable 11/15/18 05:19 Giant Platelets Not Reportable 11/15/18 05:19 Platelet Satelliting Not Reportable 11/15/18 05:19 Plt Morphology Comment Not Reportable 11/15/18 05:19 RBC Morphology Not Reportable 11/15/18 05:19 Dimorphic RBCs Not Reportable 11/15/18 05:19 Polychromasia Not Reportable 11/15/18 05:19 Hypochromasia 1+ 11/15/18 05:19 Poikilocytosis Not Reportable 11/15/18 05:19 Anisocytosis 2+ 11/15/18 05:19 Microcytosis Not Reportable 11/15/18 05:19 Macrocytosis Not Reportable 11/15/18 05:19 Spherocytes Not Reportable 11/15/18 05:19 Pappenheimer Bodies Not Reportable 11/15/18 05:19 Sickle Cells Not Reportable 11/15/18 05:19 Target Cells Not Reportable 11/15/18 05:19 Tear Drop Cells Not Reportable 11/15/18 05:19 Ovalocytes Not Reportable 11/15/18 05:19 Stomatocytes Few 11/10/18 06:54 Helmet Cells Not Reportable 11/15/18 05:19 Smith-[place] Bodies Not Reportable 11/15/18 05:19 [place] Rings Not Reportable 11/15/18 05:19 Clark Cells Not Reportable 11/15/18 05:19 Bite Cells Not Reportable 11/15/18 05:19 Crenated Cell Not Reportable 11/15/18 05:19 Elliptocytes Not Reportable 11/15/18 05:19 Acanthocytes (Spur) Not Reportable 11/15/18 05:19 Rouleaux Not Reportable 11/15/18 05:19 Hemoglobin C Crystals Not Reportable 11/15/18 05:19 Schistocytes Not Reportable 11/15/18 05:19 Malaria parasites Not Reportable 11/15/18 05:19 Jv Bodies Not Reportable 11/15/18 05:19 Hem Pathologist Commnt No 11/15/18 05:19 PT 17.7 Sec. (12.2-14.9) H 11/06/18 13:18 INR 1.36 (0.87-1.13) H 11/06/18 13:18 APTT 30.6 Sec. (24.2-36.6) 11/06/18 13:18 Thrombin Time 16.9 Sec. (15.1-19.6) 10/10/18 15:02 Heparin Anti-Xa Level < 0.10 U.I./ml (0.3-0.7) L 11/07/18 21:31 Heparin Anti-Xa, Unfract Negative (Negative) 10/25/18 05:59 POC ABG pH 7.514 (7.35-7.45) H 11/03/18 16:12 POC ABG pCO2 32.0 (35-45) L 10/21/18 09:49 POC ABG pO2 62 (80-105) L 11/03/18 16:12 POC ABG HCO3 23.2 (22-26 mml/L) 11/03/18 16:12 POC ABG Total CO2 24 (23-27mmol/L) 11/03/18 16:12 POC ABG O2 Sat 94 11/03/18 16:12 POC ABG Base Excess 0 ((-2) - (+3)mmol/L) 11/03/18 16:12 FiO2 4 % 11/03/18 16:12 Sodium 139 mmol/L (137-145) 11/13/18 09:41 Potassium 4.3 mmol/L (3.6-5.0) 11/13/18 09:41 Chloride 95.1 mmol/L (98-107) L 11/13/18 09:41 Carbon Dioxide 26 mmol/L (22-30) 11/13/18 09:41 Anion Gap 22 mmol/L 11/13/18 09:41 BUN 31 mg/dL (9-20) H 11/13/18 09:41 Creatinine 5.0 mg/dL (0.8-1.5) H 11/13/18 09:41 Estimated GFR 15 ml/min 11/13/18 09:41 BUN/Creatinine Ratio 6 % 11/13/18 09:41 Glucose 151 mg/dL (75-100) H 11/13/18 09:41 POC Glucose 139 (70-105) H 10/20/18 13:07 Osmolality 338 Mosm/kg 10/11/18 17:35 Lactic Acid 1.80 mmol/L (0.7-2.0) 10/12/18 05:59 Uric Acid 13.4 mg/dL (3.5-7.6) H 10/11/18 17:36 Calcium 8.9 mg/dL (8.4-10.2) 11/13/18 09:41 Phosphorus 8.30 mg/dL (2.5-4.5) H 10/25/18 10:00 Magnesium 3.10 mg/dL (1.7-2.3) H 10/18/18 05:03 Iron 147 ug/dL (49-181) 10/11/18 17:36 TIBC 236 mcg/dL (250-450) L 10/11/18 17:36 Ferritin 64205.0 ng/mL (13.0-400.0) H 10/11/18 17:35 Total Bilirubin 0.40 mg/dL (0.1-1.2) 10/25/18 10:00 Direct Bilirubin 0.2 mg/dL (0-0.2) 10/16/18 04:07 Indirect Bilirubin 0.3 mg/dL 10/16/18 04:07 AST 46 units/L (5-40) H 10/25/18 10:00 ALT 21 units/L (7-56) 10/25/18 10:00 Alkaline Phosphatase 102 units/L (35-129) 10/25/18 10:00 Ammonia 25.0 umol/L (25-60) 10/17/18 14:59 Lactate Dehydrogenase 925 units/L (91-180) H 10/22/18 05:51 Troponin T 0.357 ng/mL (0.00-0.029) H* 11/06/18 05:54 NT-Pro-B Natriuret Pep 84690 pg/mL (0-450) H 10/10/18 15:42 Total Protein 8.1 g/dL (6.3-8.2) 10/25/18 10:00 Albumin 3.5 g/dL (3.9-5) L 10/25/18 10:00 Albumin/Globulin Ratio 0.8 % 10/25/18 10:00 Triglycerides 306 mg/dL (2-149) H 11/05/18 11:29 Cholesterol 145 mg/dL (50-199) 11/05/18 11:29 LDL Cholesterol Direct 89 mg/dL (50-130) 11/05/18 11:29 HDL Cholesterol 25 mg/dL (40-59) L 11/05/18 11:29 Cholesterol/HDL Ratio 5.80 % 11/05/18 11:29 Serotonin Release Assay See scanned result 10/25/18 05:59 Vitamin B12 912.3 pg/mL (211-911) H 10/14/18 08:51 Folate 8.32 ng/mL (7.3-26.0) 10/14/18 08:51 PTH Intact 388.7 pg/mL (15-65) H 10/25/18 10:00 Urine Creatinine 30.8 mg/dL (0.1-20.0) H 10/13/18 04:43 Urine Sodium 106 mmol/L 10/13/18 04:43 Urine Total Protein 75 mg/dL (5-11.8) H 10/13/18 04:43 CSF Appearance Clear 10/16/18 15:00 CSF Color Colorless 10/16/18 15:00 CSF WBC 4 /mm3 (1-10) 10/16/18 15:00 CSF RBC 113 /mm3 (0-0) 10/16/18 15:00 CSF Seg Neutrophils 8.0 % (0-6) 10/16/18 15:00 CSF Lymphocytes % 76.0 % (40-80) 10/16/18 15:00 CSF Reactive Lymphs 2.0 % 10/16/18 15:00 CSF Monocytes % 14.0 % (15-45) 10/16/18 15:00 CSF Eosinophils % 0 % 10/16/18 15:00 CSF Basophils 0 % 10/16/18 15:00 CSF Pathologist Review C 10/16/18 15:00 CSF Glucose 73 mg/dL 10/16/18 15:00 CSF Total Protein 55 mg/dL 10/16/18 15:00 CSF VDRL Nonreactive (Nonreactive) 10/16/18 15:00 Random Vancomycin 23.8 ug/mL (0-40.0) 11/16/18 05:06 Immunofix Electrophor see below 10/11/18 17:36 RENO Screen Negative (Negative) 10/21/18 15:07 Proteinase 3 (PR3) Ab <1.0 AI (<1.0) 10/21/18 15:07 Myeloperoxidase Ab <1.0 AI (<1.0) 10/21/18 15:07 Heparin-induced Plt Ab Negative (Negative) 10/25/18 05:59 UF Heparin High Dose 0 % Release 10/25/18 05:59 VJ UFH Low Dose 0.1 0 % Release 10/25/18 05:59 VJ UFH Low Dose 0.5 14 % Release 10/25/18 05:59 Lymph Enumerat CD4/CD8 0.01 (0.86-5.00) L 10/11/18 17:36 % CD3 Cells 85 % (57-85) 10/11/18 17:36 Absolute CD3 Count 226 cells/uL (840-3060) L 10/11/18 17:36 % CD4 Cells 1 % (30-61) L 10/11/18 17:36 Absolute CD4 Count 3 cells/uL (490-1740) L 10/11/18 17:36 % CD8 Cells 82 % (12-42) H 10/11/18 17:36 Absolute CD8 Count 228 cells/uL (180-1170) 10/11/18 17:36 % CD19 Cells 6 % (6-29) 10/11/18 17:36 Absolute CD19 Count 16 cells/uL (110-660) L 10/11/18 17:36 RPR Titer 1:32 10/11/18 17:37 RPR Reactive (Nonreactive) 10/11/18 17:37 T.pallidum Ab (FTA-ABS) Reactive (Nonreactive) H 10/12/18 Unknown CMV DNA 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 See scanned result 10/24/18 17:47 Hepatitis A IgM Ab Non-reactive (NonReactive) 10/11/18 17:34 Hep Bs Antigen Non-reactive (Negative) 10/11/18 17:34 Hep B Core IgM Ab Non-reactive (NonReactive) 10/11/18 17:34 Hepatitis C Antibody Non-reactive (NonReactive) 10/11/18 17:34 HIV-1 RNA PCR copies/ml [id number] Copies/mL H 10/11/18 17:36 HIV-1 RNA (PCR) log 5.51 Log cps/mL H 10/11/18 17:36 HIV-1 Genotyping See scanned results 10/29/18 19:48 Toxoplasma IgG Ab <7.20 IU/mL (<7.20) 10/13/18 07:54 Miscellaneous Test Flexitest 1 10/31/18 06:43 Blood Type A POSITIVE 11/08/18 11:28 Antibody Screen Negative 11/08/18 11:28 Crossmatch See Detail 11/08/18 11:28 Active Medications - Current Medications Current Medications: Generic Name Dose Route Start Last Admin Trade Name Freq PRN Reason Stop Dose Admin Acetaminophen 500 mg 10/16/18 10:02 11/17/18 00:29 Tylenol PO 500 mg Q6H PRN Administration Fever >101 Albumin Human 25 gm 11/04/18 16:14 Alburx 25% (Albumin) IV CHON PRN Hypotension Albuterol 2.5 mg 10/10/18 18:12 11/15/18 01:28 Proventil IH 2.5 mg Q3HRT PRN Administration Shortness Of Breath Albuterol/Ipratropium 1 ampul 10/25/18 08:00 11/17/18 07:47 Duoneb *Not For Prn Use* IH 1 ampul TIDRT RUBI Administration Lipase/Protease/Amylase 1 each 10/11/18 12:58 Pancreaze 10,500 Unit FEEDTUBE PRN PRN For Clogged Feeding Tube Atovaquone 1,500 mg 11/14/18 10:00 11/16/18 13:40 Mepron PO 1,500 mg QDAY RUBI Administration Darunavir 800 mg 10/30/18 18:00 11/16/18 13:38 Prezista PO 800 mg QDAY RUBI Administration Emtricitabine 200 mg 11/01/18 10:00 11/15/18 10:39 Emtriva PO 200 mg Q48HR RUBI Administration Epoetin Dany 20,000 unit 11/12/18 15:00 11/16/18 11:41 Procrit IV 20,000 unit .MWF RUBI Administration Heparin Sodium (Porcine) 5,000 unit 11/04/18 16:15 Heparin IV CHON PRN hemodialysis Heparin Sodium (Porcine) 5,000 unit 11/07/18 22:00 11/17/18 05:52 Heparin SUB-Q 5,000 unit Q8HR RUBI Administration Hydrophilic Ointment 1 applic 10/10/18 17:53 Vaseline Lip Therapy TP Q2HR PRN Dry Lips Sodium Chloride 100 mls @ 999 mls/hr 11/12/18 09:51 Nacl 0.9% IV CHON PRN Hypotension Cefepime HCl 1 gm in 100 mls @ 200 mls/hr 11/13/18 18:00 11/16/18 17:09 Maxipime/Ns 1 Gm/100 Ml IV 200 mls/hr QPM RUBI Administration Protocol Metronidazole 500 mg in 100 mls @ 100 mls/hr 11/15/18 16:00 11/17/18 05:52 Flagyl 500 Mg/100 Ml IV 100 mls/hr Q8HR RUBI Administration Protocol Vancomycin HCl 750 mg/ Sodium 265 mls @ 166.667 mls/hr 11/17/18 11:00 Chloride IV 11/17/18 12:35 ONCE ONE Lansoprazole 30 mg 10/15/18 10:00 11/17/18 00:23 Prevacid Solutab FEEDTUBE 30 mg BID RUBI Administration Metoprolol Tartrate 5 mg 10/18/18 14:05 Lopressor IV Q6HR PRN Tachyarrhythmias Metoprolol Tartrate 12.5 mg 11/15/18 18:46 11/16/18 13:45 Lopressor PO 12.5 mg Q6H PRN Administration sustained HR > 130 Metoprolol Tartrate 50 mg 11/17/18 10:00 Lopressor PO Q6H RUBI Mirtazapine 7.5 mg 11/15/18 22:00 11/17/18 00:24 Remeron PO 7.5 mg QHS RUBI Administration Multi-Ingred Cream/Lotion/Oil/Oint 1 applic 10/10/18 17:53 Artificial Tears Ophth Oint OU Q4HR PRN Dry Eye(s) Multivitamins 1 each 10/11/18 10:00 11/16/18 13:37 Theragran Tab PO 1 each DAILY RUBI Administration Ondansetron HCl 4 mg 11/12/18 15:05 Zofran IV Q8H PRN N/V unrelieved by Reglan Psyllium Hydrophilic Mucilloid 1 each 11/08/18 18:00 11/16/18 13:37 Metamucil PO 1 each QDAY RUBI Administration Ritonavir 100 mg 10/30/18 18:00 11/16/18 13:35 Norvir PO 100 mg QDAY RUBI Administration Simple Syrup 15 ml 10/11/18 12:58 Simple Syrup FEEDTUBE PRN PRN Hypoglycemia Simple Syrup 30 ml 10/11/18 12:58 Simple Syrup FEEDTUBE PRN PRN Hypoglycemia Sodium Bicarbonate 325 mg 10/11/18 12:58 Sodium Bicarbonate FEEDTUBE PRN PRN For Clogged Feeding Tube Sodium Chloride 10 ml 10/10/18 22:00 11/16/18 22:00 Sodium Chloride Flush Syringe 10 Ml IV 10 ml BID RUBI Administration Sodium Chloride 10 ml 10/10/18 18:12 Sodium Chloride Flush Syringe 10 Ml IV PRN PRN LINE FLUSH Tenofovir Disoproxil Fumarate 300 mg 10/30/18 17:45 11/15/18 18:14 Viread PO 300 mg Q96H RUBI Administration Nutrition/Malnutrition Assess - Dietary Evaluation Nutrition/Malnutrition Findings: Nutrition Notes Start: 10/11/18 11:14 Freq: Status: Active Protocol: Document 11/15/18 11:17 RM (Rec: 11/15/18 11:27 RM [id number]) Nutrition Notes Initial or Follow up Reassessment Current Diagnosis Acute Kidney Injury,CKD(stage I-IV),Hypertension,Heart Failure,Stroke Other Pertinent Diagnosis Depression,Dysphagia,on HD, Acute encephalopathy,HIV/AIDS, Syphilis Current Diet Pureed Labs/Tests Reviewed Pertinent Medications Reviewed Height 5 ft 9 in Weight 51.4 kg [place] Body Weight (kg) 72.72 BMI 16.7 Subjective/Other Information Pt confused and not responding to questions at time of visit . Noted temporal wasting. Per tech pt drinks some of the Nepro. Recorded PO intake 50% X 2 meals. Percent of energy/protein needs met: 51%/70% Burn Absent Trauma Absent #2 Nutrition Diagnosis Malnutrition Etiology dysphagia,AMS, HIV/AIDS As Evidenced by Signs and Symptoms pt BMI of 16.7, temporal wasting #1 Nutrition Diagnosis Inadequate oral intake Diagnosis Progress(for reassessment Continues documentation) Is patient on ventilator? No Is Patient Ambulatory and/or Out of Bed No REE-([place]-confined to bed) 1688.664 Kcal/Kg value to use for calculation 40 Approximate Energy Requirements Using 2055 kcal/Kg Calculation Used for Recommendations Kcal/kg Additional Notes Pro needs 1.2-1.5g/k-79g/ day Fluid needs 1ml/kcal Nutrition Intervention Change Diet Order: Continue current Add Supplement/Snack (indicate name/kcal Nepro 1 daily /protein ) Provides kCal: 425 Provides Protein (gm) 19 Goal #1 Meet at least 75% of calorie and protein needs via PO and ONS intakes Anticipated Discharge Needs: Pureed, Renal diet Follow-Up By: 11/19/18 Additional Comments Follow for PO and ONS intakes
[2018-11-17] MEDS ORDERED: LOPRESSOR PO SCH (10:00)
[2018-11-17] MEDS ORDERED: VANCOMYCIN 750 MG in NACL 0.9% 250ML 250 ML IV ONE (11:00)
--- NOTE | 2018-11-17 12:00 | Progress Note ---
Assessment and Plan Impression * End-stage renal disease * Respiratory failure * Encephalopathy * Sepsis * Anemia * Thrombocytopenia * HIV disease Recommendations * Patient most likely has end-stage renal disease. * He has been dialysis dependent for more than 5 weeks. Has remained oliguric and dialysis dependent. Renal ultrasound also shows bilateral echogenic kidneys . Do not expect recovery of renal function at this time. * Continue dialysis on MWF schedule for now * He may have had a component of ATN * Avoid nephrotoxins * Adjust meds for GFR less than 10 * Monitor fluid status and electrolytes closely * Consultants notes appreciated * Patient is still with a Vas-Cath. He will require PermCath. Discussed with vascular surgery. Not safe to discharge patient with Vas-Cath. Once discharge arrangements have been made, shall request for PermCath again. Subjective Date of service: 11/17/18 Principal diagnosis: anemia - hiv Interval history: Patient clinically about the same. Uneventful hemodialysis yesterday Objective - Vital Signs Vital signs: Vital Signs - 12hr 11/17/18 11/17/18 11/17/18 03:37 04:58 11:51 Temperature 98.4 F 97.8 F Pulse Rate 124 H 109 H Respiratory 20 19 Rate Blood Pressure 127/84 124/85 110/75 O2 Sat by Pulse 99 Oximetry 11/17/18 11:52 Temperature Pulse Rate 121 H Respiratory Rate Blood Pressure O2 Sat by Pulse 99 Oximetry - General Appearance General appearance: chronically ill, frail EENT: PERRL, mucous membranes moist Neck: no JVD, no thyromegaly, no carotid bruit, supple, other (right IJ Vas-Cath in place) Respiratory: Present: Clear to Ascultation Cardiology: regular, normal heart rate Gastrointestinal: normal, normoactive bowel sounds, other (suprapubic tube in place) Integumentary: no rash, other (no edema) - Lab 11/15/18 05:19 11/13/18 09:41 Most recent lab results Calcium 8.9 mg/dL (8.4-10.2) 11/13/18 09:41 Phosphorus 8.30 mg/dL (2.5-4.5) H 10/25/18 10:00 Magnesium 3.10 mg/dL (1.7-2.3) H 10/18/18 05:03 Urine Creatinine 30.8 mg/dL (0.1-20.0) H 10/13/18 04:43 Urine Sodium 106 mmol/L 10/13/18 04:43 Urine Total Protein 75 mg/dL (5-11.8) H 10/13/18 04:43 Medications & Allergies - Medications Allergies/Adverse Reactions: Allergies Sulfa (Sulfonamide Antibiotics) Allergy (Verified 10/10/18 16:54) Unknown Home Medications: Home Medications Medication Instructions Recorded Confirmed Last Taken Type Acetaminophen [Tylenol] 1,000 mg PO Q6HR 10/10/18 10/10/18 Unknown History Amlodipine Besylate [Norvasc] 10 mg PO QDAY 10/10/18 10/10/18 Unknown History Aspirin [Adult Aspirin] 81 mg PO DAILY 10/10/18 10/10/18 Unknown History Atorvastatin [Lipitor Tab] 80 mg PO DAILY 10/10/18 10/10/18 Unknown History Losartan [Cozaar] 100 mg PO QDAY 10/10/18 10/10/18 Unknown History Multivitamin [Multiple Vitamins] 1 each PO DAILY 10/10/18 10/10/18 Unknown History hydroCHLOROthiazide [HCTZ] 25 mg PO QDAY 10/10/18 10/10/18 Unknown History Active Medications: Generic Name Dose Route Start Last Admin Trade Name Freq PRN Reason Stop Dose Admin Acetaminophen 500 mg 10/16/18 10:02 11/17/18 00:29 Tylenol PO 500 mg Q6H PRN Administration Fever >101 Albumin Human 25 gm 11/04/18 16:14 Alburx 25% (Albumin) IV CHON PRN Hypotension Albuterol 2.5 mg 10/10/18 18:12 11/15/18 01:28 Proventil IH 2.5 mg Q3HRT PRN Administration Shortness Of Breath Albuterol/Ipratropium 1 ampul 10/25/18 08:00 11/17/18 07:47 Duoneb *Not For Prn Use* IH 1 ampul TIDRT [facility] Administration Lipase/Protease/Amylase 1 each 10/11/18 12:58 Carrie Reed 10,500 Unit FEEDTUBE PRN PRN For Clogged Feeding Tube Atovaquone 1,500 mg 11/14/18 10:00 11/16/18 13:40 Mepron PO 1,500 mg QDAY RUBI Administration Darunavir 800 mg 10/30/18 18:00 11/16/18 13:38 Prezista PO 800 mg QDAY RUBI Administration Emtricitabine 200 mg 11/01/18 10:00 11/15/18 10:39 Emtriva PO 200 mg Q48HR RUBI Administration Epoetin Dany 20,000 unit 11/12/18 15:00 11/16/18 11:41 Procrit IV 20,000 unit .MWF RUBI Administration Heparin Sodium (Porcine) 5,000 unit 11/04/18 16:15 Heparin IV CHON PRN hemodialysis Heparin Sodium (Porcine) 5,000 unit 11/07/18 22:00 11/17/18 05:52 Heparin SUB-Q 5,000 unit Q8HR RUBI Administration Hydrophilic Ointment 1 applic 10/10/18 17:53 Vaseline Lip Therapy TP Q2HR PRN Dry Lips Sodium Chloride 100 mls @ 999 mls/hr 11/12/18 09:51 Nacl 0.9% IV CHON PRN Hypotension Cefepime HCl 1 gm in 100 mls @ 200 mls/hr 11/13/18 18:00 11/16/18 17:09 Maxipime/Ns 1 Gm/100 Ml IV 200 mls/hr QPM RUBI Administration Protocol Metronidazole 500 mg in 100 mls @ 100 mls/hr 11/15/18 16:00 11/17/18 05:52 Flagyl 500 Mg/100 Ml IV 100 mls/hr Q8HR RUBI Administration Protocol Vancomycin HCl 750 mg/ Sodium 265 mls @ 166.667 mls/hr 11/17/18 11:00 11/17/18 11:00 Chloride IV 11/17/18 12:35 166.667 mls/hr ONCE ONE Administration Lansoprazole 30 mg 10/15/18 10:00 11/17/18 00:23 Prevacid Solutab FEEDTUBE 30 mg BID RUBI Administration Metoprolol Tartrate 5 mg 10/18/18 14:05 Lopressor IV Q6HR PRN Tachyarrhythmias Metoprolol Tartrate 12.5 mg 11/15/18 18:46 11/16/18 13:45 Lopressor PO 12.5 mg Q6H PRN Administration sustained HR > 130 Metoprolol Tartrate 50 mg 11/17/18 10:00 Lopressor PO Q6H RUBI Mirtazapine 7.5 mg 11/15/18 22:00 11/17/18 00:24 Remeron PO 7.5 mg QHS RUBI Administration Multi-Ingred Cream/Lotion/Oil/Oint 1 applic 10/10/18 17:53 Artificial Tears Ophth Oint OU Q4HR PRN Dry Eye(s) Multivitamins 1 each 10/11/18 10:00 11/16/18 13:37 Theragran Tab PO 1 each DAILY RUBI Administration Ondansetron HCl 4 mg 11/12/18 15:05 Zofran IV Q8H PRN N/V unrelieved by Buddy Faye Hydrophilic Mucilloid 1 each 11/08/18 18:00 11/16/18 13:37 Metamucil PO 1 each QDAY RUBI Administration Ritonavir 100 mg 10/30/18 18:00 11/16/18 13:35 Norvir PO 100 mg QDAY RUBI Administration Simple Syrup 15 ml 10/11/18 12:58 Simple Syrup FEEDTUBE PRN PRN Hypoglycemia Simple Syrup 30 ml 10/11/18 12:58 Simple Syrup FEEDTUBE PRN PRN Hypoglycemia Sodium Bicarbonate 325 mg 10/11/18 12:58 Sodium Bicarbonate FEEDTUBE PRN PRN For Clogged Feeding Tube Sodium Chloride 10 ml 10/10/18 22:00 11/16/18 22:00 Sodium Chloride Flush Syringe 10 Ml IV 10 ml BID RUBI Administration Sodium Chloride 10 ml 10/10/18 18:12 Sodium Chloride Flush Syringe 10 Ml IV PRN PRN LINE FLUSH Tenofovir Disoproxil Fumarate 300 mg 10/30/18 17:45 11/15/18 18:14 Viread PO 300 mg Q96H RUBI Administration
[2018-11-17] MEDS: THERAGRAN Tab PO SCH (12:03)
[2018-11-17] MEDS: TIVICAY PO SCH (12:05)
[2018-11-17] MEDS: MEPRON PO SCH (12:05)
[2018-11-17] MEDS: PREZISTA PO SCH (12:05)
[2018-11-17] MEDS: EMTRIVA PO SCH (12:06)
[2018-11-17] MEDS: METAMUCIL PO SCH (12:06)
[2018-11-17] MEDS: SODIUM CHLORIDE FLUSH SYRINGE 10 ML IV SCH (12:07)
[2018-11-17] MEDS: NORVIR PO SCH (12:07)
[2018-11-17] MEDS: NYSTATIN PO SCH ×2 (14:59→23:12)
[2018-11-17] MEDS: MAXIPIME/NS 1 GM/100 ML 1 GM/100 ML BAG IV SCH (17:50)
[2018-11-17] MEDS: LOPRESSOR PO PRN (23:30)
[2018-11-18] MEDS: HEPARIN SUB-Q SCH ×3 (06:21→22:54)
[2018-11-18] MEDS: FLAGYL 500 MG/100 ML 500 MG/100 ML BAG IV SCH ×3 (06:21→22:54)
[2018-11-18] MEDS: LOPRESSOR PO SCH ×4 (06:22→22:56)
[2018-11-18] MEDS: SODIUM CHLORIDE FLUSH SYRINGE 10 ML IV SCH ×2 (06:23→17:54)
--- NOTE | 2018-11-18 08:35 | Progress Note ---
Assessment and Plan Cultures: Blood culture 10/10/2018 no growth. Sputum culture 10/10/2018 Ana Paula albicans. Crypto Ag 10/10/2018 neg. Urine culture 10/13/2018 no growth. Blood culture 10/17/2018 no growth. Blood culture 10/20/2018: no growth Stool Occult Blood 10/23/18: positive Blood culture 10/29/18: negative Urine culture 10/31/18: Ana Paula Blood culture 11/05/18: No growth Blood culture 11/14/18: no growth >72 hours Assessment: 43 y/o male with history of HIV (unknown CD4/VL/ART intake), HTN, CVA 6 months ago at [place], Nicotine Dependence, Malnutrition; admitted on 10/10/2018 due to AMS (confusion/lethargy) and slurred speech for 24 h: 1) SIRS versus sepsis: on and off low grade fevers. Leukocytosis trending down. Etiology unknown. Could be related to decubiti, seems to be responding to abx - CXR neg - BNP 70K - Troponin 0.2 - LDH 2242 -chest CT :Patchy airspace disease in the right lower lobe compatible with pneumonia. No evidence of pleural effusion. -repeat CXR : clear lungs and normal bony and soft tissue structures. Patchy airspace disease in the right lower lobe has resolved since 11/07/18 2) Acute hypoxemic respiratory failure: for airway protection +/- ? pneumonia. Repeat CXR no consolidations. Ana Paula in tracha sp likely a colonizer. Extubated 10/15. Continues on atovaquone as prophylaxis. Patient has sulfa allergy. 3) Acute encephalopathy: Improved.; multifactorial ?from hypertensive urgency +/- brain opportunistic infection. DDx: Neurosyphilis, VZV/CMV encephalitis versus [employer] lymphoma versus less likely PML v/s ischemic CVA (seems more likely) - CT head showed bilateral chronic ischemic changes. - Brain MRI showed areas of edema in the basal ganglia and thalami bilaterally, within the jamari and in the cerebral hemispheres bilaterally in the subcortical and deep white matter and in portions of the cortex, areas of encephalomalacia in the basal ganglia bilaterally with evidence of previous hemorrhage or mineral deposition and numerous small foci of acute infarct in the basal ganglia bilaterally, subinsular regions bilaterally and medial temporal lobes bilaterally and possibly in the occipital cortex bilaterally. - Brain MRA showed possible dissection versus artifact at the basilar artery. Luminal irregularity at the anterior, middle, and posterior cerebral arteries as well as the carotid siphons may represent mild to moderate atherosclerotic disease. More notable narrowing at the distal right A1 segment. Differential diagnosis includes motion artifact and vasculitis. Vertebral arteries are not clearly visualized. - CSF wbc 4, rbc 113, Seg 8%, Lymph 76%, protein 55, glucose 73 which is not c/w meningitis - RPR reactive 1:32 / FTA ABs reactive, treated with penicillin and ceftriaxone but CSF VDRL Non reactive. - Toxoplasma IgG negative, CSF Toxoplasma PCR: negative - Blood CMV DNA VL=1,370, 3.1 log on ganciclovir - likely reactivation - Repeat CMV DNA PCR 10/24/2018: <200. Off ganciclovir. - Glucan Assay: negative 4) Anemia/thrombocytopenia: improving. 5) Acute on CKD or SHRUTHI ? unclear etiology: on HD. 6) DM: uncontrolled. 7) HIV/AIDS: VL 320,000 / CD4=3 on 10/11/2018. 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 Started HIV treatment on 10/30/2018. Continue HIV therapy,renally adjusted TDF, FTC along with dol utegravir and ritonavir boosted darunavir. 8) Decubitus Ulcers: Left buttocks wound measures 9.0 x 2.5, Sacral wound measures 3.5 x 3.5, 80 % necrotic tissue, Right buttocks wound measures 5.0 x 3 .0 per wound care. Recommendations: -continue atovaquone 750 mg BID -continue HIV therapy: renally adjusted TDF, FTC along with dolutegravir and ritonavir boosted darunavir -Continue Cefepime 1 gm Q PM and Vancomycin PK dose, D6 of D7 -Add Flagyl 500 mg IV every 8 hours, D4 -continue wound care -blood cultures negative >72 hours, ok to place [facility] M: [phone] O:[phone] Subjective Date of service: 11/18/18 Principal diagnosis: anemia - hiv Interval history: Patient seen and examined. No acute distress observed. Continues to follow simple command. Objective - Exam Narrative Exam: General appearance: Awake, Alert, No acute distress Eyes: anicteric sclerae, moist conjunctivae; no lid-lag; PERRLA HENT: Atraumatic; oropharynx limited Neck: Trachea midline; supple, no thyromegaly or lymphadenopathy Lungs: CTA, with normal respiratory effort CV: tachycardic Abdomen: Soft, non-tender;+SP cath Extremities: No peripheral edema , + contractures bilateral lower extremities Skin: Normal temperature, turgor and texture; no rash, ulcers or subcutaneous nodules Psych: affect: Flat Neuro: Improved, following simple commands - Constitutional Vitals: Vital Signs Temp Pulse Resp BP Pulse Ox 98.8 F 120 H 18 97/71 100 11/18/18 05:30 11/17/18 23:30 11/18/18 05:30 11/18/18 05:30 11/17/18 23:09 Temperature -Last 24 Hours Temperature 98.8 F Temperature 99.0 F Temperature 99 F Temperature 100.3 F Temperature 97.8 F - Labs CBC & Chem 7: 11/15/18 05:19 11/13/18 09:41
[2018-11-18] MEDS: DUONEB *Not for PRN Use IH SCH ×3 (08:52→20:31)
--- NOTE | 2018-11-18 09:01 | Progress Note ---
Assessment and Plan Assessment and plan: patient is 43 YO Male with HIV, hypertension, previous stroke, Nicotine Dependence, presents to ED for evaluation. Patient was confused and lethargic and unable to provide history. He was seen and evaluated in ED and found to be in distress and unable to protect his airway and was therefore intubated, placed on ventilator in ER then admitted MR brain 10/11 1. Study somewhat degraded by motion artifact. 2 Areas of edema in the basal ganglia and thalami bilaterally, within the jamari and in the cerebral hemispheres bilaterally in the subcortical and deep white matter and in portions of the cortex. 3. Areas of encephalomalacia in the basal ganglia bilaterally with evidence of previous hemorrhage or mineral deposition. 4. Numerous small foci of acute infarct in the basal ganglia bilaterally, subinsular regions bilaterally and medial temporal lobes bilaterally and possibly in the occipital cortex bilaterally. The above findings may be secondary to an infectious or noninfectious etiology with a component of vasculopathy or vasculitis resulting in infarcts. Viral encephalopathies and lymphoma would need to be considered in this patient with history of HIV. Neuro ams acute metabolic encephalopathy improving /Acute CVA with Bilateral infarcts with edema Consulted Neurology, he was evaluated by DR. Valentine. 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 Hematology Anemia- stable, thrombocytopenia, leukocytosis, coagulopathy; now resolved -Status post platelet (3 units) and prbc (6 units ) transfusion, the patient had only few schistocytes on smear, ADAMS13 91% activity , plt count has recovered ID HIV/AIDS, CD4 count 3, HIV viral load 320,000 acute bacterial PNA, CMV viremia toxo neg, CSF neg ,Whole blood cmv PCR was positive at 1374 abx and anti- antiviral per ID,continues to have fever on and off -he was put back on HAART, he likely has component of IRIS causing fevers and sob -most recent cxr 11/12 show no infiltrate, dw ID oral thrus, nystatin swish and spit ordered x 7 days FEN/Renal SHRUTHI- ATN, no signs of renal recovery, now ESRD, Hyperkalemia, urinary retention Severe protein calorie malnutrition sp SPC on 10/12 cont HD per nephrology, no signs of renal recovery -will need permacath prior to dc, but patient continues to have have fever on and off -dietitican consult Pulm acute hypoxic resp failure on MV> 96 hours self extubated 10/16, continue supplemental oxygen CTA neg for PE on 11/06 CVS /Hypertensive urgency and acute systolic CHF He was treated with Cardene drip which was weaned off. Optimize medications for CHF on coreg, no mik due to high K, fluid removal by dialysis Skin Stage 2 sacral wound decub, and bilat buttock wounds left buttocks area. The wound is measured at 9.0x2.5. 25% slough noticed to the wound sacral area. The wound is measured at 3.5x3.5.80% necrotic tissue noticed to the wound right buttocks area. The wound is measured at 5.0x3.0. no evidence of infection, but wounds are necrotic, cont wound care Depression patient appears to have worsening depression. He is not participating with physical therapy, he is not eating. Mental health consult appreciated, continue Remeron Severe debility; he was previously refusing PT and not participating, I spoke to the patient . He agrees to be more complaints of physical therapy. he is now participating with PT, contractures are improving DVT ppx- heparin sq Dispo: Needs HD and home health set up before he can be dc History Interval history: Patient continues to have weakness of his voice, low grade fever Review of systems Constitutional: ,overall malaise, poor appetite today CVS: No chest pain, no orthopnea, no dyspnea on exertion, no pedal edema GI: No abdominal pain, no diarrhea, no vomiting, no constipation Respiratory: sob improved, no wheezing, denies cough Hospitalist Physical - Physical exam Narrative exam: General.: Appears chronically ill, weak voice, cachectic HEENT: Moist mucous membranes, extraocular muscles intact, no lymphadenopathy Neck: supple Cardiac: S1-S2 heard Lungs: rales Abdomen: soft , nontender, nondistended, bowel sounds positive Extremities: contracted extremities Skin: decub on bilat buttock and sacrum Neurologic: no gross focal deficits, generalized weakness Psych: calm, and cooperative, flat affect - Constitutional Vitals: Temp Pulse Resp BP Pulse Ox 98.8 F 123 H 14 97/71 100 11/18/18 05:30 11/18/18 08:52 11/18/18 08:52 11/18/18 05:30 11/17/18 23:09 General appearance: Present: no acute distress Results - Labs CBC & Chem 7: 11/15/18 05:19 11/13/18 09:41 Labs: Laboratory Last Values WBC 12.6 K/mm3 (4.5-11.0) H 11/15/18 05:19 RBC 2.54 M/mm3 (3.65-5.03) L 11/15/18 05:19 Hgb 7.2 gm/dl (11.8-15.2) L 11/15/18 05:19 Hct 23.0 % (35.5-45.6) L 11/15/18 05:19 MCV 91 fl (84-94) 11/15/18 05:19 MCH 29 pg (28-32) 11/15/18 05:19 MCHC 32 % (32-34) 11/15/18 05:19 RDW 18.8 % (13.2-15.2) H 11/15/18 05:19 Plt Count 190 K/mm3 (140-440) 11/15/18 05:19 Lymph % (Auto) Field [facility] Researcher 11/13/18 09:41 [place] % (Auto) [facility] Researcher 11/13/18 09:41 Eos % (Auto) [facility] Researcher 11/13/18 09:41 Baso % (Auto) [facility] Researcher 11/13/18 09:41 Lymph # [facility] Researcher 11/13/18 09:41 Wharton # [facility] Researcher 11/13/18 09:41 Eos # [facility] Researcher 11/13/18 09:41 Baso # [facility] Researcher 11/13/18 09:41 Add Manual Diff Complete 11/15/18 05:19 Total Counted 100 11/15/18 05:19 Seg Neutrophils % [facility] Court Researcher 11/13/18 09:41 Seg Neuts % (Manual) 94.0 % (40.0-70.0) H 11/15/18 05:19 Band Neutrophils % 0 % 11/15/18 05:19 Lymphocytes % (Manual) 1.0 % (13.4-35.0) L 11/15/18 05:19 Reactive Lymphs % (Man) 0 % 11/15/18 05:19 Monocytes % (Manual) 4.0 % (0.0-7.3) 11/15/18 05:19 Eosinophils % (Manual) 1.0 % (0.0-4.3) 11/15/18 05:19 Basophils % (Manual) 0 % (0.0-1.8) 11/15/18 05:19 Metamyelocytes % 0 % 11/15/18 05:19 Myelocytes % 0 % 11/15/18 05:19 Promyelocytes % 0 % 11/15/18 05:19 Blast Cells % 0 % 11/15/18 05:19 Nucleated RBC % 5.0 % (0.0-0.9) H 11/15/18 05:19 Seg Neutrophils # Field Court Researcher 11/13/18 09:41 Seg Neutrophils # Man 11.8 K/mm3 (1.8-7.7) H 11/15/18 05:19 Band Neutrophils # 0.0 K/mm3 11/15/18 05:19 Abs Lymphs (Manual) 267 cells/uL (850-3900) L 10/11/18 17:36 Lymphocytes # (Manual) 0.1 K/mm3 (1.2-5.4) L 11/15/18 05:19 Abs React Lymphs (Man) 0.0 K/mm3 11/15/18 05:19 Monocytes # (Manual) 0.5 K/mm3 (0.0-0.8) 11/15/18 05:19 Eosinophils # (Manual) 0.1 K/mm3 (0.0-0.4) 11/15/18 05:19 Basophils # (Manual) 0.0 K/mm3 (0.0-0.1) 11/15/18 05:19 Metamyelocytes # 0.0 K/mm3 11/15/18 05:19 Myelocytes # 0.0 K/mm3 11/15/18 05:19 Promyelocytes # 0.0 K/mm3 11/15/18 05:19 Blast Cells # 0.0 K/mm3 11/15/18 05:19 Pathologist Review 10/15/18 03:14 WBC Morphology Not Reportable 11/15/18 05:19 Hypersegmented Neuts Not Reportable 11/15/18 05:19 Hyposegmented Neuts Not Reportable 11/15/18 05:19 Hypogranular Neuts Not Reportable 11/15/18 05:19 Smudge Cells Not Reportable 11/15/18 05:19 Toxic Granulation Not Reportable 11/15/18 05:19 Toxic Vacuolation Not Reportable 04/04/19 05:19 Dohle Bodies Not Reportable 11/15/18 05:19 Pelger-Huet Anomaly Not Reportable 11/15/18 05:19 Kartik Rods Not Reportable 11/15/18 05:19 Platelet Estimate Consistent w auto 11/15/18 05:19 Clumped Platelets Rare 11/15/18 05:19 Plt Clumps, EDTA Not Reportable 11/15/18 05:19 Large Platelets Not Reportable 11/15/18 05:19 Giant Platelets Not Reportable 11/15/18 05:19 Platelet Satelliting Not Reportable 11/15/18 05:19 Plt Morphology Comment Not Reportable 11/15/18 05:19 RBC Morphology Not Reportable 11/15/18 05:19 Dimorphic RBCs Not Reportable 11/15/18 05:19 Polychromasia Not Reportable 11/15/18 05:19 Hypochromasia 1+ 11/15/18 05:19 Poikilocytosis Not Reportable 11/15/18 05:19 Anisocytosis 2+ 11/15/18 05:19 Microcytosis Not Reportable 11/15/18 05:19 Macrocytosis Not Reportable 11/15/18 05:19 Spherocytes Not Reportable 11/15/18 05:19 Pappenheimer Bodies Not Reportable 11/15/18 05:19 Sickle Cells Not Reportable 11/15/18 05:19 Target Cells Not Reportable 11/15/18 05:19 Tear Drop Cells Not Reportable 11/15/18 05:19 Ovalocytes Not Reportable 11/15/18 05:19 Stomatocytes Few 11/10/18 06:54 Helmet Cells Not Reportable 11/15/18 05:19 Smith-Miller Bodies Not Reportable 11/15/18 05:19 [place] Rings Not Reportable 11/15/18 05:19 [place] Cells Not Reportable 11/15/18 05:19 Bite Cells Not Reportable 11/15/18 05:19 Crenated Cell Not Reportable 11/15/18 05:19 Elliptocytes Not Reportable 11/15/18 05:19 Acanthocytes (Spur) Not Reportable 11/15/18 05:19 Rouleaux Not Reportable 11/15/18 05:19 Hemoglobin C Crystals Not Reportable 11/15/18 05:19 Schistocytes Not Reportable 11/15/18 05:19 Malaria parasites Not Reportable 11/15/18 05:19 Jv Bodies Not Reportable 11/15/18 05:19 Hem Pathologist Commnt No 11/15/18 05:19 PT 17.7 Sec. (12.2-14.9) H 11/06/18 13:18 INR 1.36 (0.87-1.13) H 11/06/18 13:18 APTT 30.6 Sec. (24.2-36.6) 11/06/18 13:18 Thrombin Time 16.9 Sec. (15.1-19.6) 10/10/18 15:02 Heparin Anti-Xa Level < 0.10 U.I./ml (0.3-0.7) L 11/07/18 21:31 Heparin Anti-Xa, Unfract Negative (Negative) 10/25/18 05:59 POC ABG pH 7.514 (7.35-7.45) H 11/03/18 16:12 POC ABG pCO2 32.0 (35-45) L 10/21/18 09:49 POC ABG pO2 62 (80-105) L 11/03/18 16:12 POC ABG HCO3 23.2 (22-26 mml/L) 11/03/18 16:12 POC ABG Total CO2 24 (23-27mmol/L) 11/03/18 16:12 POC ABG O2 Sat 94 11/03/18 16:12 POC ABG Base Excess 0 ((-2) - (+3)mmol/L) 11/03/18 16:12 FiO2 4 % 11/03/18 16:12 Sodium 139 mmol/L (137-145) 11/13/18 09:41 Potassium 4.3 mmol/L (3.6-5.0) 11/13/18 09:41 Chloride 95.1 mmol/L (98-107) L 11/13/18 09:41 Carbon Dioxide 26 mmol/L (22-30) 11/13/18 09:41 Anion Gap 22 mmol/L 11/13/18 09:41 BUN 31 mg/dL (9-20) H 11/13/18 09:41 Creatinine 5.0 mg/dL (0.8-1.5) H 11/13/18 09:41 Estimated GFR 15 ml/min 11/13/18 09:41 BUN/Creatinine Ratio 6 % 11/13/18 09:41 Glucose 151 mg/dL (75-100) H 11/13/18 09:41 POC Glucose 139 (70-105) H 10/20/18 13:07 Osmolality 338 Mosm/kg 10/11/18 17:35 Lactic Acid 1.80 mmol/L (0.7-2.0) 10/12/18 05:59 Uric Acid 13.4 mg/dL (3.5-7.6) H 10/11/18 17:36 Calcium 8.9 mg/dL (8.4-10.2) 11/13/18 09:41 Phosphorus 8.30 mg/dL (2.5-4.5) H 10/25/18 10:00 Magnesium 3.10 mg/dL (1.7-2.3) H 10/18/18 05:03 Iron 147 ug/dL (49-181) 10/11/18 17:36 TIBC 236 mcg/dL (250-450) L 10/11/18 17:36 Ferritin 40712.0 ng/mL (13.0-400.0) H 10/11/18 17:35 Total Bilirubin 0.40 mg/dL (0.1-1.2) 10/25/18 10:00 Direct Bilirubin 0.2 mg/dL (0-0.2) 10/16/18 04:07 Indirect Bilirubin 0.3 mg/dL 10/16/18 04:07 AST 46 units/L (5-40) H 10/25/18 10:00 ALT 21 units/L (7-56) 10/25/18 10:00 Alkaline Phosphatase 102 units/L (35-129) 10/25/18 10:00 Ammonia 25.0 umol/L (25-60) 10/17/18 14:59 Lactate Dehydrogenase 925 units/L (91-180) H 10/22/18 05:51 Troponin T 0.357 ng/mL (0.00-0.029) H* 11/06/18 05:54 NT-Pro-B Natriuret Pep 98085 pg/mL (0-450) H 10/10/18 15:42 Total Protein 8.1 g/dL (6.3-8.2) 10/25/18 10:00 Albumin 3.5 g/dL (3.9-5) L 10/25/18 10:00 Albumin/Globulin Ratio 0.8 % 10/25/18 10:00 Triglycerides 306 mg/dL (2-149) H 11/05/18 11:29 Cholesterol 145 mg/dL (50-199) 11/05/18 11:29 LDL Cholesterol Direct 89 mg/dL (50-130) 11/05/18 11:29 HDL Cholesterol 25 mg/dL (40-59) L 11/05/18 11:29 Cholesterol/HDL Ratio 5.80 % 11/05/18 11:29 Serotonin Release Assay See scanned result 10/25/18 05:59 Vitamin B12 912.3 pg/mL (211-911) H 10/14/18 08:51 Folate 8.32 ng/mL (7.3-26.0) 10/14/18 08:51 PTH Intact 388.7 pg/mL (15-65) H 10/25/18 10:00 Urine Creatinine 30.8 mg/dL (0.1-20.0) H 10/13/18 04:43 Urine Sodium 106 mmol/L 10/13/18 04:43 Urine Total Protein 75 mg/dL (5-11.8) H 10/13/18 04:43 CSF Appearance Clear 10/16/18 15:00 CSF Color Colorless 10/16/18 15:00 CSF WBC 4 /mm3 (1-10) 10/16/18 15:00 CSF RBC 113 /mm3 (0-0) 10/16/18 15:00 CSF Seg Neutrophils 8.0 % (0-6) 10/16/18 15:00 CSF Lymphocytes % 76.0 % (40-80) 10/16/18 15:00 CSF Reactive Lymphs 2.0 % 10/16/18 15:00 CSF Monocytes % 14.0 % (15-45) 10/16/18 15:00 CSF Eosinophils % 0 % 10/16/18 15:00 CSF Basophils 0 % 10/16/18 15:00 CSF Pathologist Review C 10/16/18 15:00 CSF Glucose 73 mg/dL 10/16/18 15:00 CSF Total Protein 55 mg/dL 10/16/18 15:00 CSF VDRL Nonreactive (Nonreactive) 10/16/18 15:00 Random Vancomycin 23.8 ug/mL (0-40.0) 11/16/18 05:06 Immunofix Electrophor see below 10/11/18 17:36 RENO Screen Negative (Negative) 10/21/18 15:07 Proteinase 3 (PR3) Ab <1.0 AI (<1.0) 10/21/18 15:07 Myeloperoxidase Ab <1.0 AI (<1.0) 10/21/18 15:07 Heparin-induced Plt Ab Negative (Negative) 10/25/18 05:59 UF Heparin High Dose 0 % Release 10/25/18 05:59 VJ UFH Low Dose 0.1 0 % Release 10/25/18 05:59 VJ UFH Low Dose 0.5 14 % Release 10/25/18 05:59 Lymph Enumerat CD4/CD8 0.01 (0.86-5.00) L 10/11/18 17:36 % CD3 Cells 85 % (57-85) 10/11/18 17:36 Absolute CD3 Count 226 cells/uL (840-3060) L 10/11/18 17:36 % CD4 Cells 1 % (30-61) L 10/11/18 17:36 Absolute CD4 Count 3 cells/uL (490-1740) L 10/11/18 17:36 % CD8 Cells 82 % (12-42) H 10/11/18 17:36 Absolute CD8 Count 228 cells/uL (180-1170) 10/11/18 17:36 % CD19 Cells 6 % (6-29) 10/11/18 17:36 Absolute CD19 Count 16 cells/uL (110-660) L 10/11/18 17:36 RPR Titer 1:32 10/11/18 17:37 RPR Reactive (Nonreactive) 10/11/18 17:37 T.pallidum Ab (FTA-ABS) Reactive (Nonreactive) H 10/12/18 Unknown CMV DNA 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 See scanned result 10/24/18 17:47 Hepatitis A IgM Ab Non-reactive (NonReactive) 10/11/18 17:34 Hep Bs Antigen Non-reactive (Negative) 10/11/18 17:34 Hep B Core IgM Ab Non-reactive (NonReactive) 10/11/18 17:34 Hepatitis C Antibody Non-reactive (NonReactive) 10/11/18 17:34 HIV-1 RNA PCR copies/ml [id number] Copies/mL H 10/11/18 17:36 HIV-1 RNA (PCR) log 5.51 Log cps/mL H 10/11/18 17:36 HIV-1 Genotyping See scanned results 10/29/18 19:48 Toxoplasma IgG Ab <7.20 IU/mL (<7.20) 10/13/18 07:54 Miscellaneous Test Flexitest 1 10/31/18 06:43 Blood Type A POSITIVE 11/08/18 11:28 Antibody Screen Negative 11/08/18 11:28 Crossmatch See Detail 11/08/18 11:28 Active Medications - Current Medications Current Medications: Generic Name Dose Route Start Last Admin Trade Name Freq PRN Reason Stop Dose Admin Acetaminophen 500 mg 10/16/18 10:02 11/17/18 00:29 Tylenol PO 500 mg Q6H PRN Administration Fever >101 Albumin Human 25 gm 11/04/18 16:14 Alburx 25% (Albumin) IV CHON PRN Hypotension Albuterol 2.5 mg 10/10/18 18:12 11/15/18 01:28 Proventil IH 2.5 mg Q3HRT PRN Administration Shortness Of Breath Albuterol/Ipratropium 1 ampul 10/25/18 08:00 11/18/18 08:52 Duoneb *Not For Prn Use* IH 1 ampul TIDRT RUBI Administration Lipase/Protease/Amylase 1 each 10/11/18 12:58 Pancreaze 10,500 Unit FEEDTUBE PRN PRN For Clogged Feeding Tube Atovaquone 1,500 mg 11/14/18 10:00 11/17/18 12:05 Mepron PO 1,500 mg QDAY RUBI Administration Darunavir 800 mg 10/30/18 18:00 11/17/18 12:05 Prezista PO 800 mg QDAY RUBI Administration Emtricitabine 200 mg 11/01/18 10:00 11/17/18 12:06 Emtriva PO 200 mg Q48HR RUBI Administration Epoetin Dany 20,000 unit 11/12/18 15:00 11/16/18 11:41 Procrit IV 20,000 unit .MWF RUBI Administration Heparin Sodium (Porcine) 5,000 unit 11/04/18 16:15 Heparin IV CHON PRN hemodialysis Heparin Sodium (Porcine) 5,000 unit 11/07/18 22:00 11/18/18 06:21 Heparin SUB-Q 5,000 unit Q8HR RUBI Administration Hydrophilic Ointment 1 applic 10/10/18 17:53 Vaseline Lip Therapy TP Q2HR PRN Dry Lips Sodium Chloride 100 mls @ 999 mls/hr 11/12/18 09:51 Nacl 0.9% IV CHON PRN Hypotension Cefepime HCl 1 gm in 100 mls @ 200 mls/hr 11/13/18 18:00 11/17/18 17:50 Maxipime/Ns 1 Gm/100 Ml IV 200 mls/hr QPM RUBI Administration Protocol Metronidazole 500 mg in 100 mls @ 100 mls/hr 11/15/18 16:00 11/18/18 06:21 Flagyl 500 Mg/100 Ml IV 100 mls/hr Q8HR RUBI Administration Protocol Lansoprazole 30 mg 10/15/18 10:00 11/17/18 23:13 Prevacid Solutab FEEDTUBE 30 mg BID RUBI Administration Metoprolol Tartrate 5 mg 10/18/18 14:05 Lopressor IV Q6HR PRN Tachyarrhythmias Metoprolol Tartrate 12.5 mg 11/15/18 18:46 11/17/18 23:30 Lopressor PO 12.5 mg Q6H PRN Administration sustained HR > 130 Metoprolol Tartrate 50 mg 11/17/18 10:00 11/18/18 06:22 Lopressor PO Not Given Q6H RUBI Mirtazapine 7.5 mg 11/15/18 22:00 11/17/18 23:13 Remeron PO 7.5 mg QHS RUBI Administration Multi-Ingred Cream/Lotion/Oil/Oint 1 applic 10/10/18 17:53 Artificial Tears Ophth Oint OU Q4HR PRN Dry Eye(s) Multivitamins 1 each 10/11/18 10:00 11/17/18 12:03 Theragran Tab PO 1 each DAILY RUBI Administration Nystatin 100,000 unit 11/17/18 14:00 11/17/18 23:12 Nystatin PO 11/24/18 13:59 100,000 unit TID RUBI Administration Ondansetron HCl 4 mg 11/12/18 15:05 Zofran IV Q8H PRN N/V unrelieved by Buddy Psyllium Hydrophilic Mucilloid 1 each 11/08/18 18:00 11/17/18 12:06 Metamucil PO 1 each QDAY RUBI Administration Ritonavir 100 mg 10/30/18 18:00 11/17/18 12:07 Norvir PO 100 mg QDAY RUBI Administration Simple Syrup 15 ml 10/11/18 12:58 Simple Syrup FEEDTUBE PRN PRN Hypoglycemia Simple Syrup 30 ml 10/11/18 12:58 Simple Syrup FEEDTUBE PRN PRN Hypoglycemia Sodium Bicarbonate 325 mg 10/11/18 12:58 Sodium Bicarbonate FEEDTUBE PRN PRN For Clogged Feeding Tube Sodium Chloride 10 ml 10/10/18 22:00 11/18/18 06:23 Sodium Chloride Flush Syringe 10 Ml IV 10 ml BID RUBI Administration Sodium Chloride 10 ml 10/10/18 18:12 Sodium Chloride Flush Syringe 10 Ml IV PRN PRN LINE FLUSH Tenofovir Disoproxil Fumarate 300 mg 10/30/18 17:45 11/15/18 18:14 Viread PO 300 mg Q96H RUBI Administration Nutrition/Malnutrition Assess - Dietary Evaluation Nutrition/Malnutrition Findings: Nutrition Notes Start: 10/11/18 11:14 Freq: Status: Active Protocol: Document 11/15/18 11:17 RM (Rec: 11/15/18 11:27 RM [id number]) Nutrition Notes Initial or Follow up Reassessment Current Diagnosis Acute Kidney Injury,CKD(stage I-IV),Hypertension,Heart Failure,Stroke Other Pertinent Diagnosis Depression,Dysphagia,on HD, Acute encephalopathy,HIV/AIDS, Syphilis Current Diet Pureed Labs/Tests Reviewed Pertinent Medications Reviewed Height 5 ft 9 in Weight 51.4 kg [place] Body Weight (kg) 72.72 BMI 16.7 Subjective/Other Information Pt confused and not responding to questions at time of visit . Noted temporal wasting. Per tech pt drinks some of the Nepro. Recorded PO intake 50% X 2 meals. Percent of energy/protein needs met: 51%/70% Burn Absent Trauma Absent #2 Nutrition Diagnosis Malnutrition Etiology dysphagia,AMS, HIV/AIDS As Evidenced by Signs and Symptoms pt BMI of 16.7, temporal wasting #1 Nutrition Diagnosis Inadequate oral intake Diagnosis Progress(for reassessment Continues documentation) Is patient on ventilator? No Is Patient Ambulatory and/or Out of Bed No [facility] 1688.664 Kcal/Kg value to use for calculation 40 Approximate Energy Requirements Using 2055 kcal/Kg Calculation Used for Recommendations Kcal/kg Additional Notes Pro needs 1.2-1.5g/k-79g/ day Fluid needs 1ml/kcal Nutrition Intervention Change Diet Order: Continue current Add Supplement/Snack (indicate name/kcal Nepro 1 daily /protein ) Provides kCal: 425 Provides Protein (gm) 19 Goal #1 Meet at least 75% of calorie and protein needs via PO and ONS intakes Anticipated Discharge Needs: Pureed, Renal diet Follow-Up By: 11/19/18 Additional Comments Follow for PO and ONS intakes
[2018-11-18] MEDS: THERAGRAN Tab PO SCH (10:51)
[2018-11-18] MEDS: MEPRON PO SCH (10:51)
[2018-11-18] MEDS: TIVICAY PO SCH (10:51)
[2018-11-18] MEDS: PREVACID SOLUTAB FEEDTUBE SCH ×2 (10:51→22:53)
[2018-11-18] MEDS: METAMUCIL PO SCH (10:51)
[2018-11-18] MEDS: PREZISTA PO SCH (10:51)
[2018-11-18] MEDS: NORVIR PO SCH (10:52)
[2018-11-18] MEDS: NYSTATIN PO SCH ×3 (10:52→22:53)
--- NOTE | 2018-11-18 11:16 | Progress Note ---
Assessment and Plan Impression * End-stage renal disease * Respiratory failure * Encephalopathy * Sepsis * Anemia * Thrombocytopenia * HIV disease Recommendations * Patient most likely has end-stage renal disease. * He has been dialysis dependent for more than 5 weeks. Has remains oliguric and dialysis dependent. Renal ultrasound also shows bilateral echogenic k idneys . Do not expect recovery of renal function at this time. * Continue dialysis on MWF schedule for now * He may have had a component of ATN * Avoid nephrotoxins * Adjust meds for GFR less than 10 * Monitor fluid status and electrolytes closely * Consultants notes appreciated * Patient is still with a Vas-Cath. He will require PermCath. Discussed with vascular surgery. Not safe to discharge patient with Vas-Cath. Once discharge arrangements have been made, shall request for PermCath again. Subjective Date of service: 11/18/18 Principal diagnosis: anemia - hiv Interval history: Patient clinically about the same. Objective - Vital Signs Vital signs: Vital Signs - 12hr 11/17/18 11/18/18 11/18/18 23:30 05:30 08:52 Temperature 98.8 F Pulse Rate 120 H Pulse Rate [ Anterior Bilateral Throughout] Pulse Rate [ 123 H Bilateral Throughout] Respiratory 18 Rate Respiratory Rate [Anterior Bilateral Throughout] Respiratory 14 Rate [Bilateral Throughout] Blood Pressure 118/78 97/71 11/18/18 11/18/18 09:02 10:56 Temperature Pulse Rate 131 H Pulse Rate [ 125 H Anterior Bilateral Throughout] Pulse Rate [ 125 H Bilateral Throughout] Respiratory Rate Respiratory 16 Rate [Anterior Bilateral Throughout] Respiratory 16 Rate [Bilateral Throughout] Blood Pressure 136/76 - General Appearance General appearance: chronically ill, frail, other (patient in position) EENT: PERRL, mucous membranes moist Neck: no JVD, no thyromegaly, no carotid bruit, supple, other (right IJ Vas-Cath in place) Respiratory: Present: Clear to Ascultation Cardiology: regular, normal heart rate Gastrointestinal: normoactive bowel sounds, other (suprapubic catheter in place) Integumentary: other (no edema) - Lab 11/15/18 05:19 11/13/18 09:41 Most recent lab results Calcium 8.9 mg/dL (8.4-10.2) 11/13/18 09:41 Phosphorus 8.30 mg/dL (2.5-4.5) H 10/25/18 10:00 Magnesium 3.10 mg/dL (1.7-2.3) H 10/18/18 05:03 Urine Creatinine 30.8 mg/dL (0.1-20.0) H 10/13/18 04:43 Urine Sodium 106 mmol/L 10/13/18 04:43 Urine Total Protein 75 mg/dL (5-11.8) H 10/13/18 04:43 Medications & Allergies - Medications Allergies/Adverse Reactions: Allergies Sulfa (Sulfonamide Antibiotics) Allergy (Verified 10/10/18 16:54) Unknown Home Medications: Home Medications Medication Instructions Recorded Confirmed Last Taken Type Acetaminophen [Tylenol] 1,000 mg PO Q6HR 10/10/18 10/10/18 Unknown History Amlodipine Besylate [Norvasc] 10 mg PO QDAY 10/10/18 10/10/18 Unknown History Aspirin [Adult Aspirin] 81 mg PO DAILY 10/10/18 10/10/18 Unknown History Atorvastatin [Lipitor Tab] 80 mg PO DAILY 10/10/18 10/10/18 Unknown History Losartan [Cozaar] 100 mg PO QDAY 10/10/18 10/10/18 Unknown History Multivitamin [Multiple Vitamins] 1 each PO DAILY 10/10/18 10/10/18 Unknown History hydroCHLOROthiazide [HCTZ] 25 mg PO QDAY 10/10/18 10/10/18 Unknown History Active Medications: Generic Name Dose Route Start Last Admin Trade Name Freq PRN Reason Stop Dose Admin Acetaminophen 500 mg 10/16/18 10:02 11/17/18 00:29 Tylenol PO 500 mg Q6H PRN Administration Fever >101 Albumin Human 25 gm 11/04/18 16:14 Alburx 25% (Albumin) IV CHON PRN Hypotension Albuterol 2.5 mg 10/10/18 18:12 11/15/18 01:28 Proventil IH 2.5 mg Q3HRT PRN Administration Shortness Of Breath Albuterol/Ipratropium 1 ampul 10/25/18 08:00 11/18/18 08:52 Duoneb *Not For Prn Use* IH 1 ampul TIDRT RUBI Administration Lipase/Protease/Amylase 1 each 10/11/18 12:58 Pancrebecka Reed 10,500 Unit FEEDTUBE PRN PRN For Clogged Feeding Tube Atovaquone 1,500 mg 11/14/18 10:00 11/18/18 10:51 Mepron PO 1,500 mg QDAY RUBI Administration Darunavir 800 mg 10/30/18 18:00 11/18/18 10:51 Prezista PO 800 mg QDAY RUBI Administration Emtricitabine 200 mg 11/01/18 10:00 11/17/18 12:06 Emtriva PO 200 mg Q48HR RUBI Administration Epoetin Dany 20,000 unit 11/12/18 15:00 11/16/18 11:41 Procrit IV 20,000 unit .MWF RUBI Administration Heparin Sodium (Porcine) 5,000 unit 11/04/18 16:15 Heparin IV CHON PRN hemodialysis Heparin Sodium (Porcine) 5,000 unit 11/07/18 22:00 11/18/18 06:21 Heparin SUB-Q 5,000 unit Q8HR RUBI Administration Hydrophilic Ointment 1 applic 10/10/18 17:53 Vaseline Lip Therapy TP Q2HR PRN Dry Lips Sodium Chloride 100 mls @ 999 mls/hr 11/12/18 09:51 Nacl 0.9% IV CHON PRN Hypotension Cefepime HCl 1 gm in 100 mls @ 200 mls/hr 11/13/18 18:00 11/17/18 17:50 Maxipime/Ns 1 Gm/100 Ml IV 200 mls/hr QPM RUBI Administration Protocol Metronidazole 500 mg in 100 mls @ 100 mls/hr 11/15/18 16:00 11/18/18 06:21 Flagyl 500 Mg/100 Ml IV 100 mls/hr Q8HR RUBI Administration Protocol Lansoprazole 30 mg 10/15/18 10:00 11/18/18 10:51 Prevacid Solutab FEEDTUBE 30 mg BID RUBI Administration Metoprolol Tartrate 5 mg 10/18/18 14:05 Lopressor IV Q6HR PRN Tachyarrhythmias Metoprolol Tartrate 12.5 mg 11/15/18 18:46 11/17/18 23:30 Lopressor PO 12.5 mg Q6H PRN Administration sustained HR > 130 Metoprolol Tartrate 50 mg 11/17/18 10:00 11/18/18 10:56 Lopressor PO 50 mg Q6H RBUI Administration Mirtazapine 7.5 mg 11/15/18 22:00 11/17/18 23:13 Remeron PO 7.5 mg QHS RUBI Administration Multi-Ingred Cream/Lotion/Oil/Oint 1 applic 10/10/18 17:53 Artificial Tears Ophth Oint OU Q4HR PRN Dry Eye(s) Multivitamins 1 each 10/11/18 10:00 11/18/18 10:51 Theragran Tab PO 1 each DAILY RUBI Administration Nystatin 100,000 unit 11/17/18 14:00 11/18/18 10:52 Nystatin PO 11/24/18 13:59 100,000 unit TID RUBI Administration Ondansetron HCl 4 mg 11/12/18 15:05 Zofran IV Q8H PRN N/V unrelieved by Buddy Faye Hydrophilic Mucilloid 1 each 11/08/18 18:00 11/18/18 10:51 Metamucil PO 1 each QDAY RUBI Administration Ritonavir 100 mg 10/30/18 18:00 11/18/18 10:52 Norvir PO 100 mg QDAY RUBI Administration Simple Syrup 15 ml 10/11/18 12:58 Simple Syrup FEEDTUBE PRN PRN Hypoglycemia Simple Syrup 30 ml 10/11/18 12:58 Simple Syrup FEEDTUBE PRN PRN Hypoglycemia Sodium Bicarbonate 325 mg 10/11/18 12:58 Sodium Bicarbonate FEEDTUBE PRN PRN For Clogged Feeding Tube Sodium Chloride 10 ml 10/10/18 22:00 11/18/18 06:23 Sodium Chloride Flush Syringe 10 Ml IV 10 ml BID RUBI Administration Sodium Chloride 10 ml 10/10/18 18:12 Sodium Chloride Flush Syringe 10 Ml IV PRN PRN LINE FLUSH Tenofovir Disoproxil Fumarate 300 mg 10/30/18 17:45 11/15/18 18:14 Viread PO 300 mg Q96H RUBI Administration
[2018-11-18] MEDS: MAXIPIME/NS 1 GM/100 ML 1 GM/100 ML BAG IV SCH (17:54)
--- NOTE | 2018-11-18 17:56 | Progress Note ---
Subjective - Reason for Consult Consult date: 11/18/18 Reason for consult: follow up - Chief Complaint Chief complaint: non verbal/not alert Patient is a 43 year old male who presents to the emergency room with altered mental status difficulty with speech. Patient has a PMH HIV, HTN, CVA, Nicotine Dependence, and Malnutrition. Psychiatry was consulted for depression. Unable to assess today. - Exam Narrative exam: Mental Status Exam unable to assess. He is not alert. Assessment and plan: Impression: No PPHx. MDD, recurrent, severe, without psychosis. He is not alert and requires total care. Recommendation/Plan: Remeron 7.5mg po QHS depression/insomnia. Disposition: Medication management. staffed with Dr. Prema Mendez. Mental Status Exam - Vital signs Last Vital Signs Temp 99.5 F 11/18/18 11:52 Pulse 113 H 11/18/18 17:53 Resp 20 11/18/18 14:26 BP 109/75 11/18/18 11:52 Pulse Ox 98 11/18/18 11:52
[2018-11-18] MEDS: REMERON PO SCH (22:53)
[2018-11-19] MEDS: LOPRESSOR PO SCH ×4 (03:30→22:59)
[2018-11-19 05:58] LABS: Hematocrit 23.7 % (35.5-45.6); Hemoglobin 7.7 gm/dl (11.8-15.2); Mean Corpuscular HGB Conc 32 % (32-34); Mean Corpuscular Volume 90 fl (84-94); Platelet Count 221 K/mm3 (140-440); Red Blood Count 2.63 M/mm3 (3.65-5.03); Red Cell Distribution Width 18.9 % (13.2-15.2)
[2018-11-19] MEDS: HEPARIN SUB-Q SCH ×3 (06:10→22:00)
[2018-11-19] MEDS: FLAGYL 500 MG/100 ML 500 MG/100 ML BAG IV SCH ×3 (06:11→22:00)
[2018-11-19 06:30] LABS: Albumin 2.6 g/dL (3.9-5); Calcium 8.9 mg/dL (8.4-10.2)
[2018-11-19 06:57] LABS: Anisocytosis 2+; Band Neutrophils # (Manual) 0.1 K/mm3; Basophils % (Manual) 0 % (0.0-1.8); Total Cells Counted 100
[2018-11-19 06:58] LABS: Hypochromasia Few; Platelet Estimate Consistent w Auto; Schistocytes Few; Target Cells Few
[2018-11-19] MEDS: SODIUM CHLORIDE FLUSH SYRINGE 10 ML IV SCH ×3 (07:45→22:00)
--- NOTE | 2018-11-19 07:52 | Hem/Onc Progress Note ---
Assessment and Plan 1. Anemia. At admission, hemoglobin was 8.1, later low and s/p Transfusion support. 2. Platelets at admission was 20. 3. White cell count was elevated. 4. PT/INR h/o slightly elevated. 5. Renal failure. 6. ALT elevated. 7. The patient has multiple medical issues. HIV 10/13 - plt better - s/p transfusion d/w dr rain and dr carrillo 10/14 - low plt - rasta ctive bleed suprapubic catheter 10/15 - plt were rising and again going down' pt had got plt transfusion LDH high - [id number] ordered smear - ordererd LDH may be high in other causes too - renal etc 10/16 - d/w path - not many schistocytes on smear - ADAMTS 13 ordered extubated 10/17 - plt low - path review ordered d/w armin monsalve 10/18 - path report pending plt low - but no active bleeding 10/19 - pt more alert - follows commands no bleeding 10/20 pt SOB - d/w Dr Monsalve and RN plt low - but no bleeding NGT+ more awake 10/21 - pt in [facility] plt >100 - more awake 10/22 - clinically better - moves all 4 limbs 10/23 - clinically stable - prbc suport 10/24 - as per RN -pt passed barium - for thickened diet pt has suprapubic got PRBC plt improving 10/25 - clinically better no active bleeding 10/26 - moving all extremity -communicating repeat cbc 10/27 - labs better - clinically improving 10/28 - plt now normal - hb better - s/p PRBC recent CKD may have a role 10/29 - pt clinically stable - 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 - electrolyte abn 10/30 - cbc improving - pt had question reg rectal tube - he will d/w other MDs 10/31 - plt better - hb better - OP follow up an option 11/01 - labs follow up 11/02 anemia d/w rn - rectal tube - decubiti suprapubic HD cath change planned 11/03/2018 pt getting HD rectal tube present 11/04- on o2 will follow labs gets HD 11/05 anemia slight SOB - on o2 HD cath 11/06 - d/w dr Shen reg pt anemia HD cath fever issues 11/07 CT shows pneumonia hb better 11/08 - anemia - d/w dr brewster - PRBC and follow 11/09 - pt less SOB s/p prbc d/w RN 11/10 hb better still has rectal tube 11/12 pt hb better gets HD - plt normal HIv - Id following 11/13 anemia - multifactorial low plt - resolved renal failure - HD pneumonia HIV 11/14 anemia d/w dr Brewster - Physical therapy off rectal tube HD - procrit 11/19 clinically stable hb 7.7 wbc and plt normal HIV ID CKD - nephrology - Patient Problems (1) Thrombocytopenia associated with AIDS Current Visit: Yes Status: Acute (2) Anemia Current Visit: Yes Status: Acute Qualifiers: Anemia type: due to chronic kidney disease Chronic kidney disease stage: unspecified stage Qualified Code(s): N18.9 - Chronic kidney disease, unspecified; D63.1 - Anemia in chronic kidney disease Subjective Date of service: 11/19/18 Principal diagnosis: anemia Interval history: had labs today Objective - Constitutional Vitals: Last Vital Signs Temp 99.1 F 11/19/18 05:42 Pulse 118 H 11/19/18 05:42 Resp 18 11/19/18 05:42 BP 120/78 11/19/18 05:42 Pulse Ox 100 11/19/18 05:42 Pain Intensity (0-10): denies any pain General appearance: no acute distress Performance status: 4-completely disabled - EENT Eyes: EOM intact ENT: clear oral mucosa Lymph node exam: negative cervical - Neck Neck: normal ROM - Respiratory Respiratory effort: Positive: normal Respiratory: bilateral: diminished - Cardiovascular Heart Sounds: Present: S1 & S2 Extremities: No edema - Gastrointestinal General gastrointestinal: Present: soft Rectal Exam: deferred - Genitourinary Male genitourinary: Present: deferred - Musculoskeletal Musculoskeletal: generalized weakness (keeping the legs flexed) - Neurologic Neurologic: moves all extremities - Labs Lab Results: Laboratory Results - last 24 hr 11/19/18 11/19/18 05:31 05:31 WBC 10.7 RBC 2.63 L Hgb 7.7 L Hct 23.7 L MCV 90 MCH 29 MCHC 32 RDW 18.9 H Plt Count 221 Add Manual Diff Complete Total Counted 100 Seg Neuts % (Manual) 87.0 H Band Neutrophils % 1.0 Lymphocytes % (Manual) 6.0 L Reactive Lymphs % (Man) 0 Monocytes % (Manual) 4.0 Eosinophils % (Manual) 2.0 Basophils % (Manual) 0 Metamyelocytes % 0 Myelocytes % 0 Promyelocytes % 0 Blast Cells % 0 Nucleated RBC % 4.0 H Seg Neutrophils # Man 9.3 H Band Neutrophils # 0.1 Lymphocytes # (Manual) 0.6 L Abs React Lymphs (Man) 0.0 Monocytes # (Manual) 0.4 Eosinophils # (Manual) 0.2 Basophils # (Manual) 0.0 Metamyelocytes # 0.0 Myelocytes # 0.0 Promyelocytes # 0.0 Blast Cells # 0.0 WBC Morphology Not Reportable Hypersegmented Neuts Not Reportable Hyposegmented Neuts Not Reportable Hypogranular Neuts Not Reportable Smudge Cells Not Reportable Toxic Granulation Not Reportable Toxic Vacuolation Not Reportable Dohle Bodies Not Reportable Pelger-Huet Anomaly Not Reportable Kartik Rods Not Reportable Platelet Estimate Consistent w auto Clumped Platelets Not Reportable Plt Clumps, EDTA Not Reportable Large Platelets Not Reportable Giant Platelets Not Reportable Platelet Satelliting Not Reportable Plt Morphology Comment Not Reportable RBC Morphology Not Reportable Dimorphic RBCs Not Reportable Polychromasia Not Reportable Hypochromasia Few Poikilocytosis Not Reportable Anisocytosis 2+ Microcytosis Not Reportable Macrocytosis Not Reportable Spherocytes Not Reportable Pappenheimer Bodies Not Reportable Sickle Cells Not Reportable Target Cells Few Tear Drop Cells Not Reportable Ovalocytes Not Reportable Helmet Cells Not Reportable [place] Bodies Not Reportable Hamilton Rings Not Reportable Jani Cells Not Reportable Bite Cells Not Reportable Crenated Cell Not Reportable Elliptocytes Not Reportable Acanthocytes (Spur) Not Reportable Rouleaux Not Reportable Hemoglobin C Crystals Not Reportable Schistocytes Few Malaria parasites Not Reportable Jv Bodies Not Reportable Hem Pathologist Commnt No Sodium 141 Potassium 4.6 Chloride 98.1 Carbon Dioxide 21 L Anion Gap 27 BUN 62 H Creatinine 8.5 H Estimated GFR 8 BUN/Creatinine Ratio 7 Glucose 129 H Calcium 8.9 Total Bilirubin 0.30 AST 26 ALT 11 Alkaline Phosphatase 74 Total Protein 7.6 Albumin 2.6 L Albumin/Globulin Ratio 0.5 Medications & Allergies - Medications Allergies/Adverse Reactions: Allergies Sulfa (Sulfonamide Antibiotics) Allergy (Verified 10/10/18 16:54) Unknown Home Medications: Home Medications Medication Instructions Recorded Confirmed Last Taken Type Acetaminophen [Tylenol] 1,000 mg PO Q6HR 10/10/18 10/10/18 Unknown History Amlodipine Besylate [Norvasc] 10 mg PO QDAY 10/10/18 10/10/18 Unknown History Aspirin [Adult Aspirin] 81 mg PO DAILY 10/10/18 10/10/18 Unknown History Atorvastatin [Lipitor Tab] 80 mg PO DAILY 10/10/18 10/10/18 Unknown History Losartan [Cozaar] 100 mg PO QDAY 10/10/18 10/10/18 Unknown History Multivitamin [Multiple Vitamins] 1 each PO DAILY 10/10/18 10/10/18 Unknown History hydroCHLOROthiazide [HCTZ] 25 mg PO QDAY 10/10/18 10/10/18 Unknown History Active Medications: Generic Name Dose Route Start Last Admin Trade Name Freq PRN Reason Stop Dose Admin Acetaminophen 500 mg 10/16/18 10:02 11/17/18 00:29 Tylenol PO 500 mg Q6H PRN Administration Fever >101 Albumin Human 25 gm 11/04/18 16:14 Alburx 25% (Albumin) IV CHON PRN Hypotension Albuterol 2.5 mg 10/10/18 18:12 11/15/18 01:28 Proventil IH 2.5 mg Q3HRT PRN Administration Shortness Of Breath Albuterol/Ipratropium 1 ampul 10/25/18 08:00 11/18/18 20:31 Duoneb *Not For Prn Use* IH 1 ampul TIDRT RUBI Administration Lipase/Protease/Amylase 1 each 10/11/18 12:58 Pancrebecka Reed 10,500 Unit FEEDTUBE PRN PRN For Clogged Feeding Tube Atovaquone 1,500 mg 11/14/18 10:00 11/18/18 10:51 Mepron PO 1,500 mg QDAY RUBI Administration Darunavir 800 mg 10/30/18 18:00 11/18/18 10:51 Prezista PO 800 mg QDAY RUBI Administration Emtricitabine 200 mg 11/01/18 10:00 11/17/18 12:06 Emtriva PO 200 mg Q48HR RUBI Administration Epoetin Dany 20,000 unit 11/12/18 15:00 11/16/18 11:41 Procrit IV 20,000 unit .MWF RUBI Administration Heparin Sodium (Porcine) 5,000 unit 11/04/18 16:15 Heparin IV CHON PRN hemodialysis Heparin Sodium (Porcine) 5,000 unit 11/07/18 22:00 11/19/18 06:10 Heparin SUB-Q 5,000 unit Q8HR RUBI Administration Hydrophilic Ointment 1 applic 10/10/18 17:53 Vaseline Lip Therapy TP Q2HR PRN Dry Lips Sodium Chloride 100 mls @ 999 mls/hr 11/12/18 09:51 Nacl 0.9% IV CHON PRN Hypotension Cefepime HCl 1 gm in 100 mls @ 200 mls/hr 11/13/18 18:00 11/18/18 17:54 Maxipime/Ns 1 Gm/100 Ml IV 200 mls/hr QPM RUBI Administration Protocol Metronidazole 500 mg in 100 mls @ 100 mls/hr 11/15/18 16:00 11/19/18 06:11 Flagyl 500 Mg/100 Ml IV 100 mls/hr Q8HR RUBI Administration Protocol Lansoprazole 30 mg 10/15/18 10:00 11/18/18 22:53 Prevacid Solutab FEEDTUBE 30 mg BID RUBI Administration Metoprolol Tartrate 5 mg 10/18/18 14:05 Lopressor IV Q6HR PRN Tachyarrhythmias Metoprolol Tartrate 12.5 mg 11/15/18 18:46 11/17/18 23:30 Lopressor PO 12.5 mg Q6H PRN Administration sustained HR > 130 Metoprolol Tartrate 50 mg 11/17/18 10:00 11/19/18 03:30 Lopressor PO 50 mg Q6H RUBI Administration Mirtazapine 7.5 mg 11/15/18 22:00 11/18/18 22:53 Remeron PO 7.5 mg QHS RUBI Administration Multi-Ingred Cream/Lotion/Oil/Oint 1 applic 10/10/18 17:53 Artificial Tears Ophth Oint OU Q4HR PRN Dry Eye(s) Multivitamins 1 each 10/11/18 10:00 11/18/18 10:51 Theragran Tab PO 1 each DAILY RUBI Administration Nystatin 100,000 unit 11/17/18 14:00 11/18/18 22:53 Nystatin PO 11/24/18 13:59 100,000 unit TID RUBI Administration Ondansetron HCl 4 mg 11/12/18 15:05 Zofran IV Q8H PRN N/V unrelieved by Buddy Faye Hydrophilic Mucilloid 1 each 11/08/18 18:00 11/18/18 10:51 Metamucil PO 1 each QDAY RUBI Administration Ritonavir 100 mg 10/30/18 18:00 11/18/18 10:52 Norvir PO 100 mg QDAY RUBI Administration Simple Syrup 15 ml 10/11/18 12:58 Simple Syrup FEEDTUBE PRN PRN Hypoglycemia Simple Syrup 30 ml 10/11/18 12:58 Simple Syrup FEEDTUBE PRN PRN Hypoglycemia Sodium Bicarbonate 325 mg 10/11/18 12:58 Sodium Bicarbonate FEEDTUBE PRN PRN For Clogged Feeding Tube Sodium Chloride 10 ml 10/10/18 22:00 11/19/18 07:45 Sodium Chloride Flush Syringe 10 Ml IV Not Given BID RUBI Sodium Chloride 10 ml 10/10/18 18:12 Sodium Chloride Flush Syringe 10 Ml IV PRN PRN LINE FLUSH Tenofovir Disoproxil Fumarate 300 mg 10/30/18 17:45 11/15/18 18:14 Viread PO 300 mg Q96H RUBI Administration
[2018-11-19] MEDS: DUONEB *Not for PRN Use IH SCH ×3 (08:18→20:00)
[2018-11-19] MEDS: NYSTATIN PO SCH ×3 (08:33→22:00)
--- NOTE | 2018-11-19 10:18 | Progress Note ---
Assessment and Plan Cultures: Blood culture 10/10/2018 no growth. Sputum culture 10/10/2018 Ana Paula albicans. Crypto Ag 10/10/2018 neg. Urine culture 10/13/2018 no growth. Blood culture 10/17/2018 no growth. Blood culture 10/20/2018: no growth Stool Occult Blood 10/23/18: positive Blood culture 10/29/18: negative Urine culture 10/31/18: Ana Paula Blood culture 11/05/18: No growth Blood culture 11/14/18: no growth >72 hours Assessment: 43 y/o male with history of HIV (unknown CD4/VL/ART intake), HTN, CVA 6 months ago at [place], Nicotine Dependence, Malnutrition; admitted on 10/10/2018 due to AMS (confusion/lethargy) and slurred speech for 24 h: 1) SIRS versus sepsis: no leukocytosis, no fevers >24 hours. Etiology unknown. Could be related to decubiti, seems to be responding to abx - CXR neg - BNP 70K - Troponin 0.2 - LDH 2242 -chest CT :Patchy airspace disease in the right lower lobe compatible with pneumonia. No evidence of pleural effusion. -repeat CXR : clear lungs and normal bony and soft tissue structures. Patchy airspace disease in the right lower lobe has resolved since 11/07/18 2) Acute hypoxemic respiratory failure: for airway protection +/- ? pneumonia. Repeat CXR no consolidations. Ana Paula in tracha sp likely a colonizer. Extubated 10/15. Continues on atovaquone as prophylaxis. Patient has sulfa allergy. 3) Acute encephalopathy: Improved.; multifactorial ?from hypertensive urgency +/- brain opportunistic infection. DDx: Neurosyphilis, VZV/CMV encephalitis versus ANTHROPOMETRIST lymphoma versus less likely PML v/s ischemic CVA (seems more likely) - CT head showed bilateral chronic ischemic changes. - Brain MRI showed areas of edema in the basal ganglia and thalami bilaterally, within the jamari and in the cerebral hemispheres bilaterally in the subcortical and deep white matter and in portions of the cortex, areas of encephalomalacia in the basal ganglia bilaterally with evidence of previous hemorrhage or mineral deposition and numerous small foci of acute infarct in the basal ganglia bilaterally, subinsular regions bilaterally and medial temporal lobes bilaterally and possibly in the occipital cortex bilaterally. - Brain MRA showed possible dissection versus artifact at the basilar artery. Luminal irregularity at the anterior, middle, and posterior cerebral arteries as well as the carotid siphons may represent mild to moderate atherosclerotic disease. More notable narrowing at the distal right A1 segment. Differential diagnosis includes motion artifact and vasculitis. Vertebral arteries are not clearly visualized. - CSF wbc 4, rbc 113, Seg 8%, Lymph 76%, protein 55, glucose 73 which is not c/w meningitis - RPR reactive 1:32 / FTA ABs reactive, treated with penicillin and ceftriaxone but CSF VDRL Non reactive. - Toxoplasma IgG negative, CSF Toxoplasma PCR: negative - Blood CMV DNA VL=1,370, 3.1 log on ganciclovir - likely reactivation - Repeat CMV DNA PCR 10/24/2018: <200. Off ganciclovir. - Glucan Assay: negative 4) Anemia/thrombocytopenia: improving. 5) Acute on CKD or SHRUTHI ? unclear etiology: on HD. 6) DM: uncontrolled. 7) HIV/AIDS: VL 320,000 / CD4=3 on 10/11/2018. 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 Started HIV treatment on 10/30/2018. Continue HIV therapy,renally adjusted TDF, FTC along with dolutegravir and ritonavir boosted darunavir. 8) Decubitus Ulcers: Left buttocks wound measures 9.0 x 2.5, Sacral wound measures 3.5 x 3.5, 80 % necrotic tissue, Right buttocks wound measures 5.0 x 3.0 per wound care. Recommendations: -continue atovaquone 750 mg BID -continue HIV therapy: renally adjusted TDF, FTC along with dolutegravir and ritonavir boosted darunavir -Continue Cefepime 1 gm Q PM and Vancomycin PK dose, Continue Flagyl 500 mg IV every 8 hours, -continue wound care -blood cultures negative >72 hours, ok to place [facility] M: [phone] O:[phone] Subjective Date of service: 11/19/18 Principal diagnosis: anemia Interval history: Patient seen and examined. No acute distress observed. Sitting up in bed eating. Responds to requests. Objective - Exam Narrative Exam: General appearance: Awake, Alert, No acute distress Eyes: anicteric sclerae, moist conjunctivae; no lid-lag; PERRLA HENT: Atraumatic; oropharynx limited Neck: Trachea midline; supple, no thyromegaly or lymphadenopathy Lungs: CTA, with normal respiratory effort CV: tachycardic Abdomen: Soft, non-tender;+SP cath Extremities: No peripheral edema , + contractures bilateral lower extremities Skin: Normal temperature, turgor and texture; no rash, ulcers or subcutaneous nodules Psych: affect: Flat Neuro: Improved, following simple commands - Constitutional Vitals: Vital Signs Temp Pulse Resp BP Pulse Ox 99.1 F 120 H 18 120/78 100 11/19/18 05:42 11/19/18 08:28 11/19/18 08:28 11/19/18 05:42 11/19/18 05:42 Temperature -Last 24 Hours Temperature 99.1 F Temperature 98.4 F Temperature 99.8 F Temperature 99.5 F - Labs CBC & Chem 7: 11/19/18 05:31 11/19/18 05:31 Labs: Abnormal lab results 11/19/18 11/19/18 Range/Units 05:31 05:31 RBC 2.63 L (3.65-5.03) M/mm3 Hgb 7.7 L (11.8-15.2) gm/dl Hct 23.7 L (35.5-45.6) % RDW 18.9 H (13.2-15.2) % Seg Neuts % (Manual) 87.0 H (40.0-70.0) % Lymphocytes % (Manual) 6.0 L (13.4-35.0) % Nucleated RBC % 4.0 H (0.0-0.9) % Seg Neutrophils # Man 9.3 H (1.8-7.7) K/mm3 Lymphocytes # (Manual) 0.6 L (1.2-5.4) K/mm3 Carbon Dioxide 21 L (22-30) mmol/L BUN 62 H (9-20) mg/dL Creatinine 8.5 H (0.8-1.5) mg/dL Glucose 129 H (75-100) mg/dL Albumin 2.6 L (3.9-5) g/dL
--- NOTE | 2018-11-19 12:39 | Progress Note ---
Assessment and Plan Assessment and plan: patient is 43 YO Male with HIV, hypertension, previous stroke, Nicotine Dependence, presents to ED for evaluation. Patient was confused and lethargic and unable to provide history. He was seen and evaluated in ED and found to be in distress and unable to protect his airway and was therefore intubated, placed on ventilator in ER then admitted MR brain 10/11 1. Study somewhat degraded by motion artifact. 2 Areas of edema in the basal ganglia and thalami bilaterally, within the jamari and in the cerebral hemispheres bilaterally in the subcortical and deep white matter and in portions of the cortex. 3. Areas of encephalomalacia in the basal ganglia bilaterally with evidence of previous hemorrhage or mineral deposition. 4. Numerous small foci of acute infarct in the basal ganglia bilaterally, subinsular regions bilaterally and medial temporal lobes bilaterally and possibly in the occipital cortex bilaterally. The above findings may be secondary to an infectious or noninfectious etiology with a component of vasculopathy or vasculitis resulting in infarcts. Viral encephalopathies and lymphoma would need to be considered in this patient with history of HIV. Neuro ams acute metabolic encephalopathy improving /Acute CVA with Bilateral infarcts with edema Consulted Neurology, he was evaluated by DR. Valentine. 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 Hematology Anemia- stable, thrombocytopenia, leukocytosis, coagulopathy; now resolved -Status post platelet (3 units) and prbc (6 units ) transfusion, the patient had only few schistocytes on smear, ADAMS13 91% activity , plt count has recovered ID HIV/AIDS, CD4 count 3, HIV viral load 320,000 acute bacterial PNA, CMV viremia toxo neg, CSF neg ,Whole blood cmv PCR was positive at 1374 abx and anti- antiviral per ID,continues to have fever on and off -he was put back on HAART, he likely has component of IRIS causing fevers and sob -most recent cxr 11/12 show no infiltrate, dw ID oral thrus, nystatin swish and spit ordered x 7 days FEN/Renal SHRUTHI- ATN, no signs of renal recovery, now ESRD, Hyperkalemia, urinary retention Severe protein calorie malnutrition sp SPC on 10/12 cont HD per nephrology, no signs of renal recovery -will need permacath prior to dc, but patient continues to have have fever on and off -dietitican consult Pulm acute hypoxic resp failure on MV> 96 hours self extubated 10/16, continue supplemental oxygen CTA neg for PE on 11/06 CVS /Hypertensive urgency and acute systolic CHF He was treated with Cardene drip which was weaned off. Optimize medications for CHF on coreg, no mik due to high K, fluid removal by dialysis Skin Stage 2 sacral wound decub, and bilat buttock wounds left buttocks area. The wound is measured at 9.0x2.5. 25% slough noticed to the wound sacral area. The wound is measured at 3.5x3.5.80% necrotic tissue noticed to the wound right buttocks area. The wound is measured at 5.0x3.0. no evidence of infection, but wounds are necrotic, cont wound care Depression patient appears to have worsening depression. He is not participating with physical therapy, he is not eating. Mental health consult appreciated, continue Remeron Severe debility; he was previously refusing PT and not participating, I spoke to the patient . He agrees to be more complaints of physical therapy. he is now participating with PT, contractures are improving DVT ppx- heparin sq Dispo: Needs HD and home health set up before he can be dc History Interval history: Patient continues to have weakness of his voice, low grade fever Review of systems Constitutional: ,overall malaise, poor appetite today CVS: No chest pain, no orthopnea, no dyspnea on exertion, no pedal edema GI: No abdominal pain, no diarrhea, no vomiting, no constipation Respiratory: sob improved, no wheezing, denies cough Hospitalist Physical - Physical exam Narrative exam: General.: Appears chronically ill, weak voice, cachectic HEENT: Moist mucous membranes, extraocular muscles intact, no lymphadenopathy Neck: supple Cardiac: S1-S2 heard Lungs: rales Abdomen: soft , nontender, nondistended, bowel sounds positive Extremities: contracted extremities Skin: decub on bilat buttock and sacrum Neurologic: no gross focal deficits, generalized weakness Psych: calm, and cooperative, flat affect - Constitutional Vitals: Temp Pulse Resp BP Pulse Ox 98.6 F 125 H 18 130/82 98 11/19/18 12:07 11/19/18 12:07 11/19/18 12:07 11/19/18 12:07 11/19/18 12:07 General appearance: Present: no acute distress Results - Labs CBC & Chem 7: 11/19/18 05:31 11/19/18 05:31 Labs: Laboratory Last Values WBC 10.7 K/mm3 (4.5-11.0) 11/19/18 05:31 RBC 2.63 M/mm3 (3.65-5.03) L 11/19/18 05:31 Hgb 7.7 gm/dl (11.8-15.2) L 11/19/18 05:31 Hct 23.7 % (35.5-45.6) L 11/19/18 05:31 MCV 90 fl (84-94) 11/19/18 05:31 MCH 29 pg (28-32) 11/19/18 05:31 MCHC 32 % (32-34) 11/19/18 05:31 RDW 18.9 % (13.2-15.2) H 11/19/18 05:31 Plt Count 221 K/mm3 (140-440) 11/19/18 05:31 Lymph % (Auto) Mobile Phlebotomist 11/13/18 09:41 Becker % (Auto) Mobile Phlebotomist 11/13/18 09:41 Eos % (Auto) Mobile Phlebotomist 11/13/18 09:41 Baso % (Auto) Mobile Phlebotomist 11/13/18 09:41 Lymph # Mobile Phlebotomist 11/13/18 09:41 Becker # Mobile Phlebotomist 11/13/18 09:41 Eos # Mobile Phlebotomist 11/13/18 09:41 Baso # Mobile Phlebotomist 11/13/18 09:41 Add Manual Diff Complete 11/19/18 05:31 Total Counted 100 11/19/18 05:31 Seg Neutrophils % Mobile Phlebotomist 11/13/18 09:41 Seg Neuts % (Manual) 87.0 % (40.0-70.0) H 11/19/18 05:31 Band Neutrophils % 1.0 % 11/19/18 05:31 Lymphocytes % (Manual) 6.0 % (13.4-35.0) L 11/19/18 05:31 Reactive Lymphs % (Man) 0 % 11/19/18 05:31 Monocytes % (Manual) 4.0 % (0.0-7.3) 11/19/18 05:31 Eosinophils % (Manual) 2.0 % (0.0-4.3) 11/19/18 05:31 Basophils % (Manual) 0 % (0.0-1.8) 11/19/18 05:31 Metamyelocytes % 0 % 11/19/18 05:31 Myelocytes % 0 % 11/19/18 05:31 Promyelocytes % 0 % 11/19/18 05:31 Blast Cells % 0 % 11/19/18 05:31 Nucleated RBC % 4.0 % (0.0-0.9) H 11/19/18 05:31 Seg Neutrophils # Mobile Phlebotomist 11/13/18 09:41 Seg Neutrophils # Man 9.3 K/mm3 (1.8-7.7) H 11/19/18 05:31 Band Neutrophils # 0.1 K/mm3 11/19/18 05:31 Abs Lymphs (Manual) 267 cells/uL (850-3900) L 10/11/18 17:36 Lymphocytes # (Manual) 0.6 K/mm3 (1.2-5.4) L 11/19/18 05:31 Abs React Lymphs (Man) 0.0 K/mm3 11/19/18 05:31 Monocytes # (Manual) 0.4 K/mm3 (0.0-0.8) 11/19/18 05:31 Eosinophils # (Manual) 0.2 K/mm3 (0.0-0.4) 11/19/18 05:31 Basophils # (Manual) 0.0 K/mm3 (0.0-0.1) 11/19/18 05:31 Metamyelocytes # 0.0 K/mm3 11/19/18 05:31 Myelocytes # 0.0 K/mm3 11/19/18 05:31 Promyelocytes # 0.0 K/mm3 11/19/18 05:31 Blast Cells # 0.0 K/mm3 11/19/18 05:31 Pathologist Review 10/15/18 03:14 WBC Morphology Not Reportable 11/19/18 05:31 Hypersegmented Neuts Not Reportable 11/19/18 05:31 Hyposegmented Neuts Not Reportable 11/19/18 05:31 Hypogranular Neuts Not Reportable 11/19/18 05:31 Smudge Cells Not Reportable 11/19/18 05:31 Toxic Granulation Not Reportable 11/19/18 05:31 Toxic Vacuolation Not Reportable 11/19/18 05:31 Dohle Bodies Not Reportable 11/19/18 05:31 Pelger-Huet Anomaly Not Reportable 11/19/18 05:31 Kartik Rods Not Reportable 11/19/18 05:31 Platelet Estimate Consistent w auto 11/19/18 05:31 Clumped Platelets Not Reportable 11/19/18 05:31 Plt Clumps, EDTA Not Reportable 11/19/18 05:31 Large Platelets Not Reportable 11/19/18 05:31 Giant Platelets Not Reportable 11/19/18 05:31 Platelet Satelliting Not Reportable 11/19/18 05:31 Plt Morphology Comment Not Reportable 11/19/18 05:31 RBC Morphology Not Reportable 11/19/18 05:31 Dimorphic RBCs Not Reportable 11/19/18 05:31 Polychromasia Not Reportable 11/19/18 05:31 Hypochromasia Few 11/19/18 05:31 Poikilocytosis Not Reportable 11/19/18 05:31 Anisocytosis 2+ 11/19/18 05:31 Microcytosis Not Reportable 11/19/18 05:31 Macrocytosis Not Reportable 11/19/18 05:31 Spherocytes Not Reportable 11/19/18 05:31 Pappenheimer Bodies Not Reportable 11/19/18 05:31 Sickle Cells Not Reportable 11/19/18 05:31 Target Cells Few 11/19/18 05:31 Tear Drop Cells Not Reportable 11/19/18 05:31 Ovalocytes Not Reportable 11/19/18 05:31 Stomatocytes Few 11/10/18 06:54 Helmet Cells Not Reportable 11/19/18 05:31 Smith-Piperton Bodies Not Reportable 11/19/18 05:31 [place] Rings Not Reportable 11/19/18 05:31 Jani Cells Not Reportable 11/19/18 05:31 Bite Cells Not Reportable 11/19/18 05:31 Crenated Cell Not Reportable 11/19/18 05:31 Elliptocytes Not Reportable 11/19/18 05:31 Acanthocytes (Spur) Not Reportable 11/19/18 05:31 Rouleaux Not Reportable 11/19/18 05:31 Hemoglobin C Crystals Not Reportable 11/19/18 05:31 Schistocytes Few 11/19/18 05:31 Malaria parasites Not Reportable 11/19/18 05:31 Jv Bodies Not Reportable 11/19/18 05:31 Hem Pathologist Commnt No 11/19/18 05:31 PT 17.7 Sec. (12.2-14.9) H 11/06/18 13:18 INR 1.36 (0.87-1.13) H 11/06/18 13:18 APTT 30.6 Sec. (24.2-36.6) 11/06/18 13:18 Thrombin Time 16.9 Sec. (15.1-19.6) 10/10/18 15:02 Heparin Anti-Xa Level < 0.10 U.I./ml (0.3-0.7) L 11/07/18 21:31 Heparin Anti-Xa, Unfract Negative (Negative) 10/25/18 05:59 POC ABG pH 7.514 (7.35-7.45) H 11/03/18 16:12 POC ABG pCO2 32.0 (35-45) L 10/21/18 09:49 POC ABG pO2 62 (80-105) L 11/03/18 16:12 POC ABG HCO3 23.2 (22-26 mml/L) 11/03/18 16:12 POC ABG Total CO2 24 (23-27mmol/L) 11/03/18 16:12 POC ABG O2 Sat 94 11/03/18 16:12 POC ABG Base Excess 0 ((-2) - (+3)mmol/L) 11/03/18 16:12 FiO2 4 % 11/03/18 16:12 Sodium 141 mmol/L (137-145) 11/19/18 05:31 Potassium 4.6 mmol/L (3.6-5.0) 11/19/18 05:31 Chloride 98.1 mmol/L (98-107) 11/19/18 05:31 Carbon Dioxide 21 mmol/L (22-30) L 11/19/18 05:31 Anion Gap 27 mmol/L 11/19/18 05:31 BUN 62 mg/dL (9-20) H 11/19/18 05:31 Creatinine 8.5 mg/dL (0.8-1.5) H 11/19/18 05:31 Estimated GFR 8 ml/min 04/08/19 05:31 BUN/Creatinine Ratio 7 % 11/19/18 05:31 Glucose 129 mg/dL (75-100) H 11/19/18 05:31 POC Glucose 139 (70-105) H 10/20/18 13:07 Osmolality 338 Mosm/kg 10/11/18 17:35 Lactic Acid 1.80 mmol/L (0.7-2.0) 10/12/18 05:59 Uric Acid 13.4 mg/dL (3.5-7.6) H 10/11/18 17:36 Calcium 8.9 mg/dL (8.4-10.2) 11/19/18 05:31 Phosphorus 8.30 mg/dL (2.5-4.5) H 10/25/18 10:00 Magnesium 3.10 mg/dL (1.7-2.3) H 10/18/18 05:03 Iron 147 ug/dL (49-181) 10/11/18 17:36 TIBC 236 mcg/dL (250-450) L 10/11/18 17:36 Ferritin 77918.0 ng/mL (13.0-400.0) H 10/11/18 17:35 Total Bilirubin 0.30 mg/dL (0.1-1.2) 11/19/18 05:31 Direct Bilirubin 0.2 mg/dL (0-0.2) 10/16/18 04:07 Indirect Bilirubin 0.3 mg/dL 10/16/18 04:07 AST 26 units/L (5-40) 11/19/18 05:31 ALT 11 units/L (7-56) 11/19/18 05:31 Alkaline Phosphatase 74 units/L (35-129) 11/19/18 05:31 Ammonia 25.0 umol/L (25-60) 10/17/18 14:59 Lactate Dehydrogenase 925 units/L (91-180) H 10/22/18 05:51 Troponin T 0.357 ng/mL (0.00-0.029) H* 11/06/18 05:54 NT-Pro-B Natriuret Pep 97906 pg/mL (0-450) H 10/10/18 15:42 Total Protein 7.6 g/dL (6.3-8.2) 11/19/18 05:31 Albumin 2.6 g/dL (3.9-5) L 11/19/18 05:31 Albumin/Globulin Ratio 0.5 % 11/19/18 05:31 Triglycerides 306 mg/dL (2-149) H 11/05/18 11:29 Cholesterol 145 mg/dL (50-199) 11/05/18 11:29 LDL Cholesterol Direct 89 mg/dL (50-130) 11/05/18 11:29 HDL Cholesterol 25 mg/dL (40-59) L 11/05/18 11:29 Cholesterol/HDL Ratio 5.80 % 11/05/18 11:29 Serotonin Release Assay See scanned result 10/25/18 05:59 Vitamin B12 912.3 pg/mL (211-911) H 10/14/18 08:51 Folate 8.32 ng/mL (7.3-26.0) 10/14/18 08:51 PTH Intact 388.7 pg/mL (15-65) H 10/25/18 10:00 Urine Creatinine 30.8 mg/dL (0.1-20.0) H 10/13/18 04:43 Urine Sodium 106 mmol/L 10/13/18 04:43 Urine Total Protein 75 mg/dL (5-11.8) H 10/13/18 04:43 CSF Appearance Clear 10/16/18 15:00 CSF Color Colorless 10/16/18 15:00 CSF WBC 4 /mm3 (1-10) 10/16/18 15:00 CSF RBC 113 /mm3 (0-0) 10/16/18 15:00 CSF Seg Neutrophils 8.0 % (0-6) 10/16/18 15:00 CSF Lymphocytes % 76.0 % (40-80) 10/16/18 15:00 CSF Reactive Lymphs 2.0 % 10/16/18 15:00 CSF Monocytes % 14.0 % (15-45) 10/16/18 15:00 CSF Eosinophils % 0 % 10/16/18 15:00 CSF Basophils 0 % 10/16/18 15:00 CSF Pathologist Review C 10/16/18 15:00 CSF Glucose 73 mg/dL 10/16/18 15:00 CSF Total Protein 55 mg/dL 10/16/18 15:00 CSF VDRL Nonreactive (Nonreactive) 10/16/18 15:00 Random Vancomycin 23.8 ug/mL (0-40.0) 11/16/18 05:06 Immunofix Electrophor see below 10/11/18 17:36 RENO Screen Negative (Negative) 10/21/18 15:07 Proteinase 3 (PR3) Ab <1.0 AI (<1.0) 10/21/18 15:07 Myeloperoxidase Ab <1.0 AI (<1.0) 10/21/18 15:07 Heparin-induced Plt Ab Negative (Negative) 10/25/18 05:59 UF Heparin High Dose 0 % Release 10/25/18 05:59 VJ UFH Low Dose 0.1 0 % Release 10/25/18 05:59 VJ UFH Low Dose 0.5 14 % Release 10/25/18 05:59 Lymph Enumerat CD4/CD8 0.01 (0.86-5.00) L 10/11/18 17:36 % CD3 Cells 85 % (57-85) 10/11/18 17:36 Absolute CD3 Count 226 cells/uL (840-3060) L 10/11/18 17:36 % CD4 Cells 1 % (30-61) L 10/11/18 17:36 Absolute CD4 Count 3 cells/uL (490-1740) L 10/11/18 17:36 % CD8 Cells 82 % (12-42) H 10/11/18 17:36 Absolute CD8 Count 228 cells/uL (180-1170) 10/11/18 17:36 % CD19 Cells 6 % (6-29) 10/11/18 17:36 Absolute CD19 Count 16 cells/uL (110-660) L 10/11/18 17:36 RPR Titer 1:32 10/11/18 17:37 RPR Reactive (Nonreactive) 10/11/18 17:37 T.pallidum Ab (FTA-ABS) Reactive (Nonreactive) H 10/12/18 Unknown CMV DNA PCR log manager copy/mL See scanned result 10/24/18 17:47 Hepatitis A IgM Ab Non-reactive (NonReactive) 10/11/18 17:34 Hep Bs Antigen Non-reactive (Negative) 10/11/18 17:34 Hep B Core IgM Ab Non-reactive (NonReactive) 10/11/18 17:34 Hepatitis C Antibody Non-reactive (NonReactive) 10/11/18 17:34 HIV-1 RNA PCR copies/ml [id number] Copies/mL H 10/11/18 17:36 HIV-1 RNA (PCR) log 5.51 Log cps/mL H 10/11/18 17:36 HIV-1 Genotyping See scanned results 10/29/18 19:48 Toxoplasma IgG Ab <7.20 IU/mL (<7.20) 10/13/18 07:54 Miscellaneous Test Flexitest 1 10/31/18 06:43 Blood Type A POSITIVE 11/08/18 11:28 Antibody Screen Negative 11/08/18 11:28 Crossmatch See Detail 11/08/18 11:28 Active Medications - Current Medications Current Medications: Generic Name Dose Route Start Last Admin Trade Name Freq PRN Reason Stop Dose Admin Acetaminophen 500 mg 10/16/18 10:02 11/17/18 00:29 Tylenol PO 500 mg Q6H PRN Administration Fever >101 Albumin Human 25 gm 11/04/18 16:14 Alburx 25% (Albumin) IV CHON PRN Hypotension Albuterol 2.5 mg 10/10/18 18:12 11/15/18 01:28 Proventil IH 2.5 mg Q3HRT PRN Administration Shortness Of Breath Albuterol/Ipratropium 1 ampul 10/25/18 08:00 11/19/18 08:18 Duoneb *Not For Prn Use* IH 1 ampul TIDRT RUBI Administration Lipase/Protease/Amylase 1 each 10/11/18 12:58 Pancreaze 10,500 Unit FEEDTUBE PRN PRN For Clogged Feeding Tube Atovaquone 1,500 mg 11/14/18 10:00 11/18/18 10:51 Mepron PO 1,500 mg QDAY RUBI Administration Darunavir 800 mg 10/30/18 18:00 11/18/18 10:51 Prezista PO 800 mg QDAY RUBI Administration Emtricitabine 200 mg 11/01/18 10:00 11/17/18 12:06 Emtriva PO 200 mg Q48HR RUBI Administration Epoetin Dany 20,000 unit 11/12/18 15:00 11/16/18 11:41 Procrit IV 20,000 unit .MWF RUBI Administration Heparin Sodium (Porcine) 5,000 unit 11/04/18 16:15 Heparin IV CHON PRN hemodialysis Heparin Sodium (Porcine) 5,000 unit 11/07/18 22:00 11/19/18 06:10 Heparin SUB-Q 5,000 unit Q8HR RUBI Administration Hydrophilic Ointment 1 applic 10/10/18 17:53 Vaseline Lip Therapy TP Q2HR PRN Dry Lips Sodium Chloride 100 mls @ 999 mls/hr 11/12/18 09:51 Nacl 0.9% IV CHON PRN Hypotension Cefepime HCl 1 gm in 100 mls @ 200 mls/hr 11/13/18 18:00 11/18/18 17:54 Maxipime/Ns 1 Gm/100 Ml IV 200 mls/hr QPM RUBI Administration Protocol Metronidazole 500 mg in 100 mls @ 100 mls/hr 11/15/18 16:00 11/19/18 06:11 Flagyl 500 Mg/100 Ml IV 100 mls/hr Q8HR RUBI Administration Protocol Lansoprazole 30 mg 10/15/18 10:00 11/18/18 22:53 Prevacid Solutab FEEDTUBE 30 mg BID RUBI Administration Metoprolol Tartrate 5 mg 10/18/18 14:05 Lopressor IV Q6HR PRN Tachyarrhythmias Metoprolol Tartrate 12.5 mg 11/15/18 18:46 11/17/18 23:30 Lopressor PO 12.5 mg Q6H PRN Administration sustained HR > 130 Metoprolol Tartrate 50 mg 11/17/18 10:00 11/19/18 03:30 Lopressor PO 50 mg Q6H RUBI Administration Mirtazapine 7.5 mg 11/15/18 22:00 11/18/18 22:53 Remeron PO 7.5 mg QHS RUBI Administration Multi-Ingred Cream/Lotion/Oil/Oint 1 applic 10/10/18 17:53 Artificial Tears Ophth Oint OU Q4HR PRN Dry Eye(s) Multivitamins 1 each 10/11/18 10:00 11/18/18 10:51 Theragran Tab PO 1 each DAILY RUBI Administration Nystatin 100,000 unit 11/17/18 14:00 11/19/18 08:33 Nystatin PO 11/24/18 13:59 100,000 unit TID RUBI Administration Ondansetron HCl 4 mg 11/12/18 15:05 Zofran IV Q8H PRN N/V unrelieved by Buddy Psyllium Hydrophilic Mucilloid 1 each 11/08/18 18:00 11/18/18 10:51 Metamucil PO 1 each QDAY RUBI Administration Ritonavir 100 mg 10/30/18 18:00 11/18/18 10:52 Norvir PO 100 mg QDAY RUBI Administration Simple Syrup 15 ml 10/11/18 12:58 Simple Syrup FEEDTUBE PRN PRN Hypoglycemia Simple Syrup 30 ml 10/11/18 12:58 Simple Syrup FEEDTUBE PRN PRN Hypoglycemia Sodium Bicarbonate 325 mg 10/11/18 12:58 Sodium Bicarbonate FEEDTUBE PRN PRN For Clogged Feeding Tube Sodium Chloride 10 ml 10/10/18 22:00 11/19/18 07:45 Sodium Chloride Flush Syringe 10 Ml IV Not Given BID RUBI Sodium Chloride 10 ml 10/10/18 18:12 Sodium Chloride Flush Syringe 10 Ml IV PRN PRN LINE FLUSH Tenofovir Disoproxil Fumarate 300 mg 10/30/18 17:45 11/15/18 18:14 Viread PO 300 mg Q96H RUBI Administration Nutrition/Malnutrition Assess - Dietary Evaluation Nutrition/Malnutrition Findings: Nutrition Notes Start: 10/11/18 11:14 Freq: Status: Active Protocol: Document 11/15/18 11:17 RM (Rec: 11/15/18 11:27 [id number]) Nutrition Notes Initial or Follow up Reassessment Current Diagnosis Acute Kidney Injury,CKD(stage I-IV),Hypertension,Heart Failure,Stroke Other Pertinent Diagnosis Depression,Dysphagia,on HD, Acute encephalopathy,HIV/AIDS, Syphilis Current Diet Pureed Labs/Tests Reviewed Pertinent Medications Reviewed Height 5 ft 9 in Weight 51.4 kg Silvis Body Weight (kg) 72.72 BMI 16.7 Subjective/Other Information Pt confused and not responding to questions at time of visit . Noted temporal wasting. Per tech pt drinks some of the Nepro. Recorded PO intake 50% X 2 meals. Percent of energy/protein needs met: 51%/70% Burn Absent Trauma Absent #2 Nutrition Diagnosis Malnutrition Etiology dysphagia,AMS, HIV/AIDS As Evidenced by Signs and Symptoms pt BMI of 16.7, temporal wasting #1 Nutrition Diagnosis Inadequate oral intake Diagnosis Progress(for reassessment Continues documentation) Is patient on ventilator? No Is Patient Ambulatory and/or Out of Bed No [facility] 1688.664 Kcal/Kg value to use for calculation 40 Approximate Energy Requirements Using 2055 kcal/Kg Calculation Used for Recommendations Kcal/kg Additional Notes Pro needs 1.2-1.5g/k-79g/ day Fluid needs 1ml/kcal Nutrition Intervention Change Diet Order: Continue current Add Supplement/Snack (indicate name/kcal Nepro 1 daily /protein ) Provides kCal: 425 Provides Protein (gm) 19 Goal #1 Meet at least 75% of calorie and protein needs via PO and ONS intakes Anticipated Discharge Needs: Pureed, Renal diet Follow-Up By: 11/19/18 Additional Comments Follow for PO and ONS intakes
--- NOTE | 2018-11-19 12:44 | Progress Note ---
Subjective - Reason for Consult Consult date: 11/19/18 Reason for consult: Psychiatry Follow-up - Chief Complaint Chief complaint: The patient is somewhat non verbal" 43 year old male who presented to the emergency room with altered mental status and difficulty speaking. Today the patient is calm during the assessment. He is still somewhat non verbal, but does try to speak by mumbling. He was observed feeding himself with some assistance. Per the staff, the patient's mental status has improved. Also, I was told that the patient resides with his family. He nodded to "No" when asked if he was suicidal/homicidal. Mental Status Exam - Vital signs Last Vital Signs Temp 98.6 F 11/19/18 12:07 Pulse 125 H 11/19/18 12:07 Resp 18 11/19/18 12:07 BP 130/82 11/19/18 12:07 Pulse Ox 98 11/19/18 12:07 - Exam Narrative exam: Unable to complete the MSE because of the patient's condition. Assessment and Plan Impression: Today the patient is calm during the assessment. Recommendation/Plan: Gather collateral information and attempt to reassess the patient in 24 hours. D/C'd Saluderon, the patient's CR is 8.5. Once the patient is reassessed in 24 hours and collateral information is gathered, medication (antidepressant) maybe initiated if indicated. Will staff with Dr Prema Mendez.
[2018-11-19] MEDS: METAMUCIL PO SCH (12:50)
[2018-11-19] MEDS: NORVIR PO SCH (12:50)
[2018-11-19] MEDS: EMTRIVA PO SCH (12:50)
[2018-11-19] MEDS: MEPRON PO SCH (12:50)
[2018-11-19] MEDS: PREVACID SOLUTAB FEEDTUBE SCH ×2 (12:50→22:00)
[2018-11-19] MEDS: PREZISTA PO SCH (12:51)
[2018-11-19] MEDS: THERAGRAN Tab PO SCH (12:51)
--- NOTE | 2018-11-19 13:38 | Progress Note ---
Assessment and Plan Impression * ESRD * Respiratory failure * Encephalopathy * Sepsis * cardiomyopathy--ef 35% * Anemia * Thrombocytopenia * tachycardia * HIV disease Recommendations * Patient remains oliguric. No evidence of renal recovery at this time * renal diet * HD q MWF * follow up lytes daily * He most likely has ATN * Avoid nephrotoxins * Adjust meds for GFR less than 10 * Monitor fluid status and electrolytes closely * Consultants notes appreciated * outpatient hd placement for hd * patient is still with a Vas-Cath. He will require PermCath. Discussed with v ascular surgery. Not safe to discharge patient with Vas-Cath. Once discharge arrangements have been made, shall request for PermCath again Subjective Date of service: 11/19/18 Principal diagnosis: anemia Interval history: resting well in bed today Objective - Exam Narrative Exam: HEENT: Oral mucosa moist no pallor or icterus Neck: Supple no JVD Chest: Clear to auscultation anteriorly CVS: Regular rate and rhythm S1 and S2 heard Abdomen: Soft nontender no suprapubic masses no organomegaly appreciable Extremity: Dry skin less than 1+ peripheral edema Musculoskeletal: No joint effusion noted in knees and ankle Neurological: Alert awake Dermatology: No petechial rashes Psychiatry: No evidence of any agitation and aggression noted - Vital Signs Vital signs: Vital Signs - 12hr 11/19/18 11/19/18 11/19/18 03:33 05:42 08:18 Temperature 99.1 F Pulse Rate 118 H Pulse Rate [ 125 H Bilateral Throughout] Respiratory 18 Rate Respiratory 17 Rate [Bilateral Leg] Respiratory 18 Rate [Bilateral Throughout] Blood Pressure 120/78 O2 Sat by Pulse 100 Oximetry 11/19/18 11/19/18 11/19/18 08:28 12:07 12:40 Temperature 98.6 F 98.6 F Pulse Rate 125 H 123 H Pulse Rate [ 120 H Bilateral Throughout] Respiratory 18 18 Rate Respiratory Rate [Bilateral Leg] Respiratory 18 Rate [Bilateral Throughout] Blood Pressure 130/82 120/78 O2 Sat by Pulse 98 Oximetry 11/19/18 11/19/18 12:45 13:00 Temperature Pulse Rate 122 H 128 H Pulse Rate [ Bilateral Throughout] Respiratory Rate Respiratory Rate [Bilateral Leg] Respiratory Rate [Bilateral Throughout] Blood Pressure 117/79 113/83 O2 Sat by Pulse Oximetry - Lab 11/19/18 05:31 11/19/18 05:31 Most recent lab results Calcium 8.9 mg/dL (8.4-10.2) 11/19/18 05:31 Phosphorus 8.30 mg/dL (2.5-4.5) H 10/25/18 10:00 Magnesium 3.10 mg/dL (1.7-2.3) H 10/18/18 05:03 Urine Creatinine 30.8 mg/dL (0.1-20.0) H 10/13/18 04:43 Urine Sodium 106 mmol/L 10/13/18 04:43 Urine Total Protein 75 mg/dL (5-11.8) H 10/13/18 04:43 Medications & Allergies - Medications Allergies/Adverse Reactions: Allergies Sulfa (Sulfonamide Antibiotics) Allergy (Verified 10/10/18 16:54) Unknown Home Medications: Home Medications Medication Instructions Recorded Confirmed Last Taken Type Acetaminophen [Tylenol] 1,000 mg PO Q6HR 10/10/18 10/10/18 Unknown History Amlodipine Besylate [Norvasc] 10 mg PO QDAY 10/10/18 10/10/18 Unknown History Aspirin [Adult Aspirin] 81 mg PO DAILY 10/10/18 10/10/18 Unknown History Atorvastatin [Lipitor Tab] 80 mg PO DAILY 10/10/18 10/10/18 Unknown History Losartan [Cozaar] 100 mg PO QDAY 10/10/18 10/10/18 Unknown History Multivitamin [Multiple Vitamins] 1 each PO DAILY 10/10/18 10/10/18 Unknown History hydroCHLOROthiazide [HCTZ] 25 mg PO QDAY 10/10/18 10/10/18 Unknown History Active Medications: Generic Name Dose Route Start Last Admin Trade Name Brandonq PRN Reason Stop Dose Admin Acetaminophen 500 mg 10/16/18 10:02 11/17/18 00:29 Tylenol PO 500 mg Q6H PRN Administration Fever >101 Albumin Human 25 gm 11/04/18 16:14 Alburx 25% (Albumin) IV CHON PRN Hypotension Albuterol 2.5 mg 10/10/18 18:12 11/15/18 01:28 Proventil IH 2.5 mg Q3HRT PRN Administration Shortness Of Breath Albuterol/Ipratropium 1 ampul 10/25/18 08:00 11/19/18 08:18 Duoneb *Not For Prn Use* IH 1 ampul TIDRT RUBI Administration Lipase/Protease/Amylase 1 each 10/11/18 12:[address] 10,500 Unit FEEDTUBE PRN PRN For Clogged Feeding Tube Atovaquone 1,500 mg 11/14/18 10:00 11/19/18 12:50 Mepron PO Not Given QDAY [facility] Darunavir 800 mg 10/30/18 18:00 11/19/18 12:51 Prezista PO Not Given QDAY [facility] Emtricitabine 200 mg 11/01/18 10:00 11/19/18 12:50 Emtriva PO Not Given Q48HR [facility] Epoetin Dany 20,000 unit 11/12/18 15:00 11/16/18 11:41 Procrit IV 20,000 unit .MWF RUBI Administration Heparin Sodium (Porcine) 5,000 unit 11/04/18 16:15 Heparin IV CHON PRN hemodialysis Heparin Sodium (Porcine) 5,000 unit 11/07/18 22:00 11/19/18 06:10 Heparin SUB-Q 5,000 unit Q8HR RUBI Administration Hydrophilic Ointment 1 applic 10/10/18 17:53 Vaseline Lip Therapy TP Q2HR PRN Dry Lips Sodium Chloride 100 mls @ 999 mls/hr 11/12/18 09:51 Nacl 0.9% IV CHON PRN Hypotension Cefepime HCl 1 gm in 100 mls @ 200 mls/hr 11/13/18 18:00 11/18/18 17:54 Maxipime/Ns 1 Gm/100 Ml IV 200 mls/hr QPM RUBI Administration Protocol Metronidazole 500 mg in 100 mls @ 100 mls/hr 11/15/18 16:00 11/19/18 06:11 Flagyl 500 Mg/100 Ml IV 100 mls/hr Q8HR [facility] Administration Protocol Lansoprazole 30 mg 10/15/18 10:00 11/19/18 12:50 Prevacid Solutab FEEDTUBE Not Given BID [facility] Metoprolol Tartrate 5 mg 10/18/18 14:05 Lopressor IV Q6HR PRN Tachyarrhythmias Metoprolol Tartrate 12.5 mg 11/15/18 18:46 11/17/18 23:30 Lopressor PO 12.5 mg Q6H PRN Administration sustained HR > 130 Metoprolol Tartrate 50 mg 11/17/18 10:00 11/19/18 12:50 Lopressor PO Not Given Q6H RUBI Multi-Ingred Cream/Lotion/Oil/Oint 1 applic 10/10/18 17:53 Artificial Tears Ophth Oint OU Q4HR PRN Dry Eye(s) Multivitamins 1 each 10/11/18 10:00 11/19/18 12:51 Theragran Tab PO Not Given DAILY RUBI Nystatin 100,000 unit 11/17/18 14:00 11/19/18 08:33 Nystatin PO 11/24/18 13:59 100,000 unit TID RUBI Administration Ondansetron HCl 4 mg 11/12/18 15:05 Zofran IV Q8H PRN N/V unrelieved by Buddy Faye Hydrophilic Mucilloid 1 each 11/08/18 18:00 11/19/18 12:50 Metamucil PO Not Given QDAY [facility] Ritonavir 100 mg 10/30/18 18:00 11/19/18 12:50 Norvir PO Not Given QDAY RUBI Simple Syrup 15 ml 10/11/18 12:58 Simple Syrup FEEDTUBE PRN PRN Hypoglycemia Simple Syrup 30 ml 10/11/18 12:58 Simple Syrup FEEDTUBE PRN PRN Hypoglycemia Sodium Bicarbonate 325 mg 10/11/18 12:58 Sodium Bicarbonate FEEDTUBE PRN PRN For Clogged Feeding Tube Sodium Chloride 10 ml 10/10/18 22:00 11/19/18 12:51 Sodium Chloride Flush Syringe 10 Ml IV Not Given BID RUBI Sodium Chloride 10 ml 10/10/18 18:12 Sodium Chloride Flush Syringe 10 Ml IV PRN PRN LINE FLUSH Tenofovir Disoproxil Fumarate 300 mg 10/30/18 17:45 11/15/18 18:14 Viread PO 300 mg Q96H RUBI Administration
[2018-11-19] MEDS: PROCRIT IV SCH (16:27)
[2018-11-19] MEDS ORDERED: NACL 0.9 (PRIMING MACHINE ONLY DIALYSIS) MC ONE (17:02)
[2018-11-19] MEDS: MAXIPIME/NS 1 GM/100 ML 1 GM/100 ML BAG IV SCH (18:55)
[2018-11-19] MEDS: VIREAD PO SCH (18:56)
[2018-11-19] MEDS: TIVICAY PO SCH (21:15)
[2018-11-20] MEDS: LOPRESSOR PO SCH ×4 (04:00→21:04)
[2018-11-20] MEDS: HEPARIN SUB-Q SCH ×3 (05:49→21:09)
[2018-11-20] MEDS: FLAGYL 500 MG/100 ML 500 MG/100 ML BAG IV SCH ×3 (05:49→21:04)
[2018-11-20] MEDS: DUONEB *Not for PRN Use IH SCH ×3 (08:12→20:35)
[2018-11-20] MEDS: PREVACID SOLUTAB FEEDTUBE SCH ×2 (09:35→21:05)
[2018-11-20] MEDS: THERAGRAN Tab PO SCH (09:35)
[2018-11-20] MEDS: PREZISTA PO SCH (09:35)
[2018-11-20] MEDS: MEPRON PO SCH (09:36)
[2018-11-20] MEDS: NORVIR PO SCH (09:36)
[2018-11-20] MEDS: NYSTATIN PO SCH ×3 (09:36→21:03)
[2018-11-20] MEDS: SODIUM CHLORIDE FLUSH SYRINGE 10 ML IV SCH ×2 (09:37→21:20)
[2018-11-20] MEDS: METAMUCIL PO SCH (09:37)
--- NOTE | 2018-11-20 09:48 | Progress Note ---
Assessment and Plan Cultures: Blood culture 10/10/2018 no growth. Sputum culture 10/10/2018 Ana Paula albicans. Crypto Ag 10/10/2018 neg. Urine culture 10/13/2018 no growth. Blood culture 10/17/2018 no growth. Blood culture 10/20/2018: no growth Stool Occult Blood 10/23/18: positive Blood culture 10/29/18: negative Urine culture 10/31/18: Ana Paula Blood culture 11/05/18: No growth Blood culture 11/14/18: no growth >72 hours Assessment: 43 y/o male with history of HIV (unknown CD4/VL/ART intake), HTN, CVA 6 months ago at [facility], Nicotine Dependence, Malnutrition; admitted on 10/10/2018 due to AMS (confusion/lethargy) and slurred speech for 24 h: 1) SIRS versus sepsis: Improved, noted low grade fever. Etiology unknown. Could be related to decubiti, seems to be responding to abx - CXR neg - BNP 70K - Troponin 0.2 - LDH 2242 -chest CT :Patchy airspace disease in the right lower lobe compatible with pneumonia. No evidence of pleural effusion. -repeat CXR : clear lungs and normal bony and soft tissue structures. Patchy airspace disease in the right lower lobe has resolved since 11/07/18 2) Acute hypoxemic respiratory failure: for airway protection +/- ? pneumonia. Repeat CXR no consolidations. Ana Paula in tracha sp likely a colonizer. Extubated 10/15. Continues on atovaquone as prophylaxis. Patient has sulfa allergy. 3) Acute encephalopathy: Improved.; multifactorial ?from hypertensive urgency +/- brain opportunistic infection. DDx: Neurosyphilis, VZV/CMV encephalitis versus TRANSCRIPTION lymphoma versus less likely PML v/s ischemic CVA (seems more likely) - CT head showed bilateral chronic ischemic changes. - Brain MRI showed areas of edema in the basal ganglia and thalami bilaterally, within the jamari and in the cerebral hemispheres bilaterally in the subcortical and deep white matter and in portions of the cortex, areas of encephalomalacia in the basal ganglia bilaterally with evidence of previous hemorrhage or mineral deposition and numerous small foci of acute infarct in the basal ganglia bilaterally, subinsular regions bilaterally and medial temporal lobes bilaterally and possibly in the occipital cortex bilaterally. - Brain MRA showed possible dissection versus artifact at the basilar artery. Luminal irregularity at the anterior, middle, and posterior cerebral arteries as well as the carotid siphons may represent mild to moderate atherosclerotic disease. More notable narrowing at the distal right A1 segment. Differential diagnosis includes motion artifact and vasculitis. Vertebral arteries are not clearly visualized. - CSF wbc 4, rbc 113, Seg 8%, Lymph 76%, protein 55, glucose 73 which is not c/w meningitis - RPR reactive 1:32 / FTA ABs reactive, treated with penicillin and ceftriaxone but CSF VDRL Non reactive. - Toxoplasma IgG negative, CSF Toxoplasma PCR: negative - Blood CMV DNA VL=1,370, 3.1 log on ganciclovir - likely reactivation - Repeat CMV DNA PCR 10/24/2018: <200. Off ganciclovir. - Glucan Assay: negative 4) Anemia/thrombocytopenia: improving. 5) Acute on CKD or SHRUTHI ? unclear etiology: on HD. 6) DM: uncontrolled. 7) HIV/AIDS: VL 320,000 / CD4=3 on 10/11/2018. 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 Started HIV treatment on 10/30/2018. Continue HIV therapy,renally adjusted TDF, FTC along with dolutegravir and ritonavir boosted darunavir. 8) Decubitus Ulcers: Left buttocks wound measures 9.0 x 2.5, Sacral wound otto ures 3.5 x 3.5, 80 % necrotic tissue, Right buttocks wound measures 5.0 x 3.0 per wound care. Recommendations: -continue atovaquone 750 mg BID -continue HIV therapy: renally adjusted TDF, FTC along with dolutegravir and ritonavir boosted darunavir -Continue Cefepime 1 gm Q PM and Vancomycin PK dose , D8 of D10 Continue Flagyl 500 mg IV every 8 hours -continue wound care -Cleared from ID standpoint for PermCath placement for dialysis. -CBC ordered for tomorrow [facility] M: [phone] O:[phone] Subjective Date of service: 11/20/18 Principal diagnosis: anemia Interval history: Patient seen and examined. No acute distress observed. Sitting up in bed eating. Responds to requests. Objective - Exam Narrative Exam: General appearance: Awake, Alert, No acute distress Eyes: anicteric sclerae, moist conjunctivae; no lid-lag; PERRLA HENT: Atraumatic; oropharynx limited Neck: Trachea midline; supple, no thyromegaly or lymphadenopathy Lungs: CTA, with normal respiratory effort CV: tachycardic Abdomen: Soft, non-tender;+SP cath Extremities: No peripheral edema , + contractures bilateral lower extremities Skin: Normal temperature, turgor and texture; no rash, ulcers or subcutaneous nodules Psych: affect: Flat Neuro: Improved, following simple commands - Constitutional Vitals: Vital Signs Temp Pulse Resp BP Pulse Ox 100.0 F H 117 H 24 125/88 99 11/20/18 04:01 11/20/18 08:24 11/20/18 08:24 11/20/18 04:01 11/20/18 04:01 Temperature -Last 24 Hours Temperature 100.0 F Temperature 98.9 F Temperature 99.0 F Temperature 98.6 F Temperature 98.6 F Temperature 98.6 F - Labs CBC & Chem 7: 11/19/18 05:31 11/19/18 05:31
--- NOTE | 2018-11-20 10:06 | Progress Note ---
Subjective - Reason for Consult Consult date: 11/20/18 Reason for consult: Psychiatry Follow-up - Chief Complaint Chief complaint: 'Hello" 43 year old male who presented to the emergency room with altered mental status and difficulty speaking. Today the patient is calm during the assessment. He was more willing to speak today. He stated that he was "sad." He acknowledged being sad because of his medical conditions. He nodded to being depressed when asked. He rated his depression 4/10, with 10 being the worse by nodding to questions asked of him. He denies SI/HI's and AVH's. Mental Status Exam - Vital signs Last Vital Signs Temp 100.0 F H 11/20/18 04:01 Pulse 117 H 11/20/18 08:24 Resp 24 11/20/18 08:24 BP 125/88 11/20/18 04:01 Pulse Ox 99 11/20/18 04:01 - Exam Narrative exam: MSE: Appearance: calm Behavior: regular eye contact Speech: regular rate and low tone Mood:: "okay" Affect: flat Thought Process: somewhat circumstantial Thought Content: denies SI/HI's and AVH's Motor Activity: sitting up in bed Cognition: A/O x3 Insight: variable Judgment: fair Assessment and Plan Impression: MDD. Today the patient is calm during the assessment. Recommendation/Plan: Start Zoloft 25 mg PO daily for depression. Discussed possible suicidality/medication induced george with the patient reference Zoloft. Follow up with the patient in 24 hours. Dispo: The patient can follow up with [facility] for outpatient psy services. Will staff with Dr Prema Mendez.
--- NOTE | 2018-11-20 11:42 | Progress Note ---
Assessment and Plan Assessment and plan: patient is 43 YO Male with HIV, hypertension, previous stroke, Nicotine Dependence, presents to ED for evaluation. Patient was confused and lethargic and unable to provide history. He was seen and evaluated in ED and found to be in distress and unable to protect his airway and was therefore intubated, placed on ventilator in ER then admitted MR brain 10/11 1. Study somewhat degraded by motion artifact. 2 Areas of edema in the basal ganglia and thalami bilaterally, within the jamari and in the cerebral hemispheres bilaterally in the subcortical and deep white matter and in portions of the cortex. 3. Areas of encephalomalacia in the basal ganglia bilaterally with evidence of previous hemorrhage or mineral deposition. 4. Numerous small foci of acute infarct in the basal ganglia bilaterally, subinsular regions bilaterally and medial temporal lobes bilaterally and possibly in the occipital cortex bilaterally. The above findings may be secondary to an infectious or noninfectious etiology with a component of vasculopathy or vasculitis resulting in infarcts. Viral encephalopathies and lymphoma would need to be considered in this patient with history of HIV. Neuro ams acute metabolic encephalopathy improving /Acute CVA with Bilateral infarcts with edema Consulted Neurology, he was evaluated by DR. Valentine. mentation is improved, and this is likely his new baseline Dysphagia/ moderate malnutrition -MBS 10/23, recommended pureed with nectar thickened liquids, continue this diet -load out worker consulted Hematology Anemia- stable, thrombocytopenia, leukocytosis, coagulopathy; now resolved -Status post platelet (3 units) and prbc (6 units ) transfusion, the patient had only few schistocytes on smear, ADAMS13 91% activity , plt count has recovered ID HIV/AIDS, CD4 count 3, HIV viral load 320,000 acute bacterial PNA, CMV viremia toxo neg, CSF neg ,Whole blood cmv PCR was positive at 1374 abx and anti- antiviral per ID,continues to have fever on and off -he was put back on HAART, he likely has component of IRIS causing fevers and sob -most recent cxr 11/12 show no infiltrate, dw ID oral thrus, nystatin swish and spit ordered x 7 days FEN/Renal SHRUTHI- ATN, no signs of renal recovery, now ESRD, Hyperkalemia, urinary retention Severe protein calorie malnutrition sp SPC on 10/12 cont HD per nephrology, no signs of renal recovery -now afebrile, spoke to vas sx about PC placement -dietitican consult Pulm acute hypoxic resp failure on MV> 96 hours self extubated 10/16, continue supplemental oxygen prn CTA neg for PE on 11/06 CVS /Hypertensive urgency and acute systolic CHF He was treated with Cardene drip which was weaned off. Optimize medications for CHF on coreg, no mik due to high K, fluid removal by dialysis Skin Stage 2 sacral wound decub, and bilat buttock wounds left buttocks area. The wound is measured at 9.0x2.5. 25% slough noticed to the wound sacral area. The wound is measured at 3.5x3.5.80% necrotic tissue noticed to the wound right buttocks area. The wound is measured at 5.0x3.0. no evidence of infection, but wounds are necrotic, cont wound care Depression MH input appreciated, he is improving Severe debility; he was previously refusing PT and not participating, I spoke to the patient . He agrees to be more complaints of physical therapy. he is now participating with PT, contractures are improving DVT ppx- heparin sq Dispo: Needs HD and home health set up before he can be dc History Interval history: Patient continues to have weakness of his voice, Review of systems Constitutional: ,overall malaise, improved appetite CVS: No chest pain, no orthopnea, no dyspnea on exertion, no pedal edema GI: No abdominal pain, no diarrhea, no vomiting, no constipation Respiratory: sob improved, no wheezing, denies cough Hospitalist Physical - Physical exam Narrative exam: General.: Appears chronically ill, weak voice, cachectic HEENT: Moist mucous membranes, extraocular muscles intact, no lymphadenopathy Neck: supple Cardiac: S1-S2 heard Lungs: rales Abdomen: soft , nontender, nondistended, bowel sounds positive Extremities: no edema Skin: decub on bilat buttock and sacrum Neurologic: no gross focal deficits, generalized weakness Psych: calm, and cooperative, flat affect - Constitutional Vitals: Temp Pulse Resp BP Pulse Ox 100.0 F H 117 H 24 125/88 99 11/20/18 04:01 11/20/18 08:24 11/20/18 08:24 11/20/18 04:01 11/20/18 04:01 General appearance: Present: no acute distress Results - Labs CBC & Chem 7: 11/19/18 05:31 11/19/18 05:31 Labs: Laboratory Last Values WBC 10.7 K/mm3 (4.5-11.0) 11/19/18 05:31 RBC 2.63 M/mm3 (3.65-5.03) L 11/19/18 05:31 Hgb 7.7 gm/dl (11.8-15.2) L 11/19/18 05:31 Hct 23.7 % (35.5-45.6) L 11/19/18 05:31 MCV 90 fl (84-94) 11/19/18 05:31 MCH 29 pg (28-32) 11/19/18 05:31 MCHC 32 % (32-34) 11/19/18 05:31 RDW 18.9 % (13.2-15.2) H 11/19/18 05:31 Plt Count 221 K/mm3 (140-440) 11/19/18 05:31 Lymph % (Auto) Oral Health Therapist 11/13/18 09:41 Adams % (Auto) Oral Health Therapist 11/13/18 09:41 Eos % (Auto) Oral Health Therapist 11/13/18 09:41 Baso % (Auto) Oral Health Therapist 11/13/18 09:41 Lymph # Oral Health Therapist 11/13/18 09:41 Adams # Oral Health Therapist 11/13/18 09:41 Eos # Oral Health Therapist 11/13/18 09:41 Baso # Oral Health Therapist 11/13/18 09:41 Add Manual Diff Complete 11/19/18 05:31 Total Counted 100 11/19/18 05:31 Seg Neutrophils % Oral Health Therapist 11/13/18 09:41 Seg Neuts % (Manual) 87.0 % (40.0-70.0) H 11/19/18 05:31 Band Neutrophils % 1.0 % 11/19/18 05:31 Lymphocytes % (Manual) 6.0 % (13.4-35.0) L 11/19/18 05:31 Reactive Lymphs % (Man) 0 % 11/19/18 05:31 Monocytes % (Manual) 4.0 % (0.0-7.3) 11/19/18 05:31 Eosinophils % (Manual) 2.0 % (0.0-4.3) 11/19/18 05:31 Basophils % (Manual) 0 % (0.0-1.8) 11/19/18 05:31 Metamyelocytes % 0 % 11/19/18 05:31 Myelocytes % 0 % 11/19/18 05:31 Promyelocytes % 0 % 11/19/18 05:31 Blast Cells % 0 % 11/19/18 05:31 Nucleated RBC % 4.0 % (0.0-0.9) H 11/19/18 05:31 Seg Neutrophils # Oral Health Therapist 11/13/18 09:41 Seg Neutrophils # Man 9.3 K/mm3 (1.8-7.7) H 11/19/18 05:31 Band Neutrophils # 0.1 K/mm3 11/19/18 05:31 Abs Lymphs (Manual) 267 cells/uL (850-3900) L 10/11/18 17:36 Lymphocytes # (Manual) 0.6 K/mm3 (1.2-5.4) L 11/19/18 05:31 Abs React Lymphs (Man) 0.0 K/mm3 11/19/18 05:31 Monocytes # (Manual) 0.4 K/mm3 (0.0-0.8) 11/19/18 05:31 Eosinophils # (Manual) 0.2 K/mm3 (0.0-0.4) 11/19/18 05:31 Basophils # (Manual) 0.0 K/mm3 (0.0-0.1) 11/19/18 05:31 Metamyelocytes # 0.0 K/mm3 11/19/18 05:31 Myelocytes # 0.0 K/mm3 11/19/18 05:31 Promyelocytes # 0.0 K/mm3 11/19/18 05:31 Blast Cells # 0.0 K/mm3 11/19/18 05:31 Pathologist Review 10/15/18 03:14 WBC Morphology Not Reportable 11/19/18 05:31 Hypersegmented Neuts Not Reportable 11/19/18 05:31 Hyposegmented Neuts Not Reportable 11/19/18 05:31 Hypogranular Neuts Not Reportable 11/19/18 05:31 Smudge Cells Not Reportable 11/19/18 05:31 Toxic Granulation Not Reportable 11/19/18 05:31 Toxic Vacuolation Not Reportable 11/19/18 05:31 Dohle Bodies Not Reportable 11/19/18 05:31 Pelger-Huet Anomaly Not Reportable 11/19/18 05:31 Kartik Rods Not Reportable 11/19/18 05:31 Platelet Estimate Consistent w auto 11/19/18 05:31 Clumped Platelets Not Reportable 11/19/18 05:31 Plt Clumps, EDTA Not Reportable 11/19/18 05:31 Large Platelets Not Reportable 11/19/18 05:31 Giant Platelets Not Reportable 11/19/18 05:31 Platelet Satelliting Not Reportable 11/19/18 05:31 Plt Morphology Comment Not Reportable 11/19/18 05:31 RBC Morphology Not Reportable 11/19/18 05:31 Dimorphic RBCs Not Reportable 11/19/18 05:31 Polychromasia Not Reportable 11/19/18 05:31 Hypochromasia Few 11/19/18 05:31 Poikilocytosis Not Reportable 11/19/18 05:31 Anisocytosis 2+ 11/19/18 05:31 Microcytosis Not Reportable 11/19/18 05:31 Macrocytosis Not Reportable 11/19/18 05:31 Spherocytes Not Reportable 11/19/18 05:31 Pappenheimer Bodies Not Reportable 11/19/18 05:31 Sickle Cells Not Reportable 11/19/18 05:31 Target Cells Few 11/19/18 05:31 Tear Drop Cells Not Reportable 11/19/18 05:31 Ovalocytes Not Reportable 11/19/18 05:31 Stomatocytes Few 11/10/18 06:54 Helmet Cells Not Reportable 11/19/18 05:31 [place] Bodies Not Reportable 11/19/18 05:31 [place] Rings Not Reportable 11/19/18 05:31 [place] Cells Not Reportable 11/19/18 05:31 Bite Cells Not Reportable 11/19/18 05:31 Crenated Cell Not Reportable 11/19/18 05:31 Elliptocytes Not Reportable 11/19/18 05:31 Acanthocytes (Spur) Not Reportable 11/19/18 05:31 Rouleaux Not Reportable 11/19/18 05:31 Hemoglobin C Crystals Not Reportable 11/19/18 05:31 Schistocytes Few 11/19/18 05:31 Malaria parasites Not Reportable 11/19/18 05:31 Jv Bodies Not Reportable 11/19/18 05:31 Hem Pathologist Commnt No 11/19/18 05:31 PT 17.7 Sec. (12.2-14.9) H 11/06/18 13:18 INR 1.36 (0.87-1.13) H 11/06/18 13:18 APTT 30.6 Sec. (24.2-36.6) 11/06/18 13:18 Thrombin Time 16.9 Sec. (15.1-19.6) 10/10/18 15:02 Heparin Anti-Xa Level < 0.10 U.I./ml (0.3-0.7) L 11/07/18 21:31 Heparin Anti-Xa, Unfract Negative (Negative) 10/25/18 05:59 POC ABG pH 7.514 (7.35-7.45) H 11/03/18 16:12 POC ABG pCO2 32.0 (35-45) L 10/21/18 09:49 POC ABG pO2 62 (80-105) L 11/03/18 16:12 POC ABG HCO3 23.2 (22-26 mml/L) 11/03/18 16:12 POC ABG Total CO2 24 (23-27mmol/L) 11/03/18 16:12 POC ABG O2 Sat 94 11/03/18 16:12 POC ABG Base Excess 0 ((-2) - (+3)mmol/L) 11/03/18 16:12 FiO2 4 % 11/03/18 16:12 Sodium 141 mmol/L (137-145) 11/19/18 05:31 Potassium 4.6 mmol/L (3.6-5.0) 11/19/18 05:31 Chloride 98.1 mmol/L (98-107) 11/19/18 05:31 Carbon Dioxide 21 mmol/L (22-30) L 11/19/18 05:31 Anion Gap 27 mmol/L 11/19/18 05:31 BUN 62 mg/dL (9-20) H 11/19/18 05:31 Creatinine 8.5 mg/dL (0.8-1.5) H 11/19/18 05:31 Estimated GFR 8 ml/min 11/19/18 05:31 BUN/Creatinine Ratio 7 % 11/19/18 05:31 Glucose 129 mg/dL (75-100) H 11/19/18 05:31 POC Glucose 139 (70-105) H 10/20/18 13:07 Osmolality 338 Mosm/kg 10/11/18 17:35 Lactic Acid 1.80 mmol/L (0.7-2.0) 10/12/18 05:59 Uric Acid 13.4 mg/dL (3.5-7.6) H 10/11/18 17:36 Calcium 8.9 mg/dL (8.4-10.2) 11/19/18 05:31 Phosphorus 8.30 mg/dL (2.5-4.5) H 10/25/18 10:00 Magnesium 3.10 mg/dL (1.7-2.3) H 10/18/18 05:03 Iron 147 ug/dL (49-181) 10/11/18 17:36 TIBC 236 mcg/dL (250-450) L 10/11/18 17:36 Ferritin 69697.0 ng/mL (13.0-400.0) H 10/11/18 17:35 Total Bilirubin 0.30 mg/dL (0.1-1.2) 11/19/18 05:31 Direct Bilirubin 0.2 mg/dL (0-0.2) 10/16/18 04:07 Indirect Bilirubin 0.3 mg/dL 10/16/18 04:07 AST 26 units/L (5-40) 11/19/18 05:31 ALT 11 units/L (7-56) 11/19/18 05:31 Alkaline Phosphatase 74 units/L (35-129) 11/19/18 05:31 Ammonia 25.0 umol/L (25-60) 10/17/18 14:59 Lactate Dehydrogenase 925 units/L (91-180) H 10/22/18 05:51 Troponin T 0.357 ng/mL (0.00-0.029) H* 11/06/18 05:54 NT-Pro-B Natriuret Pep 28097 pg/mL (0-450) H 10/10/18 15:42 Total Protein 7.6 g/dL (6.3-8.2) 11/19/18 05:31 Albumin 2.6 g/dL (3.9-5) L 11/19/18 05:31 Albumin/Globulin Ratio 0.5 % 11/19/18 05:31 Triglycerides 306 mg/dL (2-149) H 11/05/18 11:29 Cholesterol 145 mg/dL (50-199) 11/05/18 11:29 LDL Cholesterol Direct 89 mg/dL (50-130) 11/05/18 11:29 HDL Cholesterol 25 mg/dL (40-59) L 11/05/18 11:29 Cholesterol/HDL Ratio 5.80 % 11/05/18 11:29 Serotonin Release Assay See scanned result 10/25/18 05:59 Vitamin B12 912.3 pg/mL (211-911) H 10/14/18 08:51 Folate 8.32 ng/mL (7.3-26.0) 10/14/18 08:51 PTH Intact 388.7 pg/mL (15-65) H 10/25/18 10:00 Urine Creatinine 30.8 mg/dL (0.1-20.0) H 10/13/18 04:43 Urine Sodium 106 mmol/L 10/13/18 04:43 Urine Total Protein 75 mg/dL (5-11.8) H 10/13/18 04:43 CSF Appearance Clear 10/16/18 15:00 CSF Color Colorless 10/16/18 15:00 CSF WBC 4 /mm3 (1-10) 10/16/18 15:00 CSF RBC 113 /mm3 (0-0) 10/16/18 15:00 CSF Seg Neutrophils 8.0 % (0-6) 10/16/18 15:00 CSF Lymphocytes % 76.0 % (40-80) 10/16/18 15:00 CSF Reactive Lymphs 2.0 % 10/16/18 15:00 CSF Monocytes % 14.0 % (15-45) 10/16/18 15:00 CSF Eosinophils % 0 % 10/16/18 15:00 CSF Basophils 0 % 10/16/18 15:00 CSF Pathologist Review C 10/16/18 15:00 CSF Glucose 73 mg/dL 10/16/18 15:00 CSF Total Protein 55 mg/dL 10/16/18 15:00 CSF VDRL Nonreactive (Nonreactive) 10/16/18 15:00 Random Vancomycin 21.1 ug/mL (0-40.0) 11/20/18 06:15 Immunofix Electrophor see below 10/11/18 17:36 RENO Screen Negative (Negative) 10/21/18 15:07 Proteinase 3 (PR3) Ab <1.0 AI (<1.0) 10/21/18 15:07 Myeloperoxidase Ab <1.0 AI (<1.0) 10/21/18 15:07 Heparin-induced Plt Ab Negative (Negative) 10/25/18 05:59 UF Heparin High Dose 0 % Release 10/25/18 05:59 VJ UFH Low Dose 0.1 0 % Release 10/25/18 05:59 VJ UFH Low Dose 0.5 14 % Release 10/25/18 05:59 Lymph Enumerat CD4/CD8 0.01 (0.86-5.00) L 10/11/18 17:36 % CD3 Cells 85 % (57-85) 10/11/18 17:36 Absolute CD3 Count 226 cells/uL (840-3060) L 10/11/18 17:36 % CD4 Cells 1 % (30-61) L 10/11/18 17:36 Absolute CD4 Count 3 cells/uL (490-1740) L 10/11/18 17:36 % CD8 Cells 82 % (12-42) H 10/11/18 17:36 Absolute CD8 Count 228 cells/uL (180-1170) 10/11/18 17:36 % CD19 Cells 6 % (6-29) 10/11/18 17:36 Absolute CD19 Count 16 cells/uL (110-660) L 10/11/18 17:36 RPR Titer 1:32 10/11/18 17:37 RPR Reactive (Nonreactive) 10/11/18 17:37 T.pallidum Ab (FTA-ABS) Reactive (Nonreactive) H 10/12/18 Unknown 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 See scanned result 10/24/18 17:47 Hepatitis A IgM Ab Non-reactive (NonReactive) 10/11/18 17:34 Hep Bs Antigen Non-reactive (Negative) 10/11/18 17:34 Hep B Core IgM Ab Non-reactive (NonReactive) 10/11/18 17:34 Hepatitis C Antibody Non-reactive (NonReactive) 10/11/18 17:34 HIV-1 RNA PCR copies/ml 191195 Copies/mL H 10/11/18 17:36 HIV-1 RNA (PCR) log 5.51 Log cps/mL H 10/11/18 17:36 HIV-1 Genotyping See scanned results 10/29/18 19:48 Toxoplasma IgG Ab <7.20 IU/mL (<7.20) 10/13/18 07:54 Miscellaneous Test Flexitest 1 10/31/18 06:43 Blood Type A POSITIVE 11/08/18 11:28 Antibody Screen Negative 11/08/18 11:28 Crossmatch See Detail 11/08/18 11:28 Active Medications - Current Medications Current Medications: Generic Name Dose Route Start Last Admin Trade Name Freq PRN Reason Stop Dose Admin Acetaminophen 500 mg 10/16/18 10:02 11/17/18 00:29 Tylenol PO 500 mg Q6H PRN Administration Fever >101 Albumin Human 25 gm 11/04/18 16:14 Alburx 25% (Albumin) IV CHON PRN Hypotension Albuterol 2.5 mg 10/10/18 18:12 11/15/18 01:28 Proventil IH 2.5 mg Q3HRT PRN Administration Shortness Of Breath Albuterol/Ipratropium 1 ampul 10/25/18 08:00 11/20/18 08:12 Duoneb *Not For Prn Use* IH 1 ampul TIDRT RUBI Administration Lipase/Protease/Amylase 1 each 10/11/18 12:58 Pancreaze 10,500 Unit FEEDTUBE PRN PRN For Clogged Feeding Tube Atovaquone 1,500 mg 11/14/18 10:00 11/20/18 09:36 Mepron PO 1,500 mg QDAY RUBI Administration Darunavir 800 mg 10/30/18 18:00 11/20/18 09:35 Prezista PO 800 mg QDAY RUBI Administration Emtricitabine 200 mg 11/01/18 10:00 11/19/18 12:50 Emtriva PO Not Given Q48HR RUBI Epoetin Dany 20,000 unit 11/12/18 15:00 11/19/18 16:27 Procrit IV 20,000 unit .MWF RUBI Administration Heparin Sodium (Porcine) 5,000 unit 11/04/18 16:15 Heparin IV CHON PRN hemodialysis Heparin Sodium (Porcine) 5,000 unit 11/07/18 22:00 11/20/18 05:49 Heparin SUB-Q 5,000 unit Q8HR RUBI Administration Hydrophilic Ointment 1 applic 10/10/18 17:53 Vaseline Lip Therapy TP Q2HR PRN Dry Lips Sodium Chloride 100 mls @ 999 mls/hr 11/12/18 09:51 Nacl 0.9% IV CHON PRN Hypotension Cefepime HCl 1 gm in 100 mls @ 200 mls/hr 11/13/18 18:00 11/19/18 18:55 Maxipime/Ns 1 Gm/100 Ml IV 200 mls/hr QPM RUBI Administration Protocol Metronidazole 500 mg in 100 mls @ 100 mls/hr 11/15/18 16:00 11/20/18 05:49 Flagyl 500 Mg/100 Ml IV 100 mls/hr Q8HR RUBI Administration Protocol Vancomycin HCl 750 mg/ Sodium 265 mls @ 166.667 mls/hr 11/21/18 18:00 Chloride IV [id number] RUBI Lansoprazole 30 mg 10/15/18 10:00 11/20/18 09:35 Prevacid Solutab FEEDTUBE 30 mg BID RUBI Administration Metoprolol Tartrate 5 mg 10/18/18 14:05 Lopressor IV Q6HR PRN Tachyarrhythmias Metoprolol Tartrate 12.5 mg 11/15/18 18:46 11/17/18 23:30 Lopressor PO 12.5 mg Q6H PRN Administration sustained HR > 130 Metoprolol Tartrate 50 mg 11/17/18 10:00 11/20/18 04:00 Lopressor PO 50 mg Q6H RUBI Administration Multi-Ingred Cream/Lotion/Oil/Oint 1 applic 10/10/18 17:53 Artificial Tears Ophth Oint OU Q4HR PRN Dry Eye(s) Multivitamins 1 each 10/11/18 10:00 11/20/18 09:35 Theragran Tab PO 1 each DAILY RUBI Administration Nystatin 100,000 unit 11/17/18 14:00 11/20/18 09:36 Nystatin PO 11/24/18 13:59 100,000 unit TID RUBI Administration Ondansetron HCl 4 mg 11/12/18 15:05 Zofran IV Q8H PRN N/V unrelieved by Buddy Faye Hydrophilic Mucilloid 1 each 11/08/18 18:00 11/20/18 09:37 Metamucil PO 1 each QDAY RUBI Administration Ritonavir 100 mg 10/30/18 18:00 11/20/18 09:36 Norvir PO 100 mg QDAY RUBI Administration Sertraline HCl 25 mg 11/20/18 12:00 Zoloft PO QDAY RUIB Simple Syrup 15 ml 10/11/18 12:58 Simple Syrup FEEDTUBE PRN PRN Hypoglycemia Simple Syrup 30 ml 10/11/18 12:58 Simple Syrup FEEDTUBE PRN PRN Hypoglycemia Sodium Bicarbonate 325 mg 10/11/18 12:58 Sodium Bicarbonate FEEDTUBE PRN PRN For Clogged Feeding Tube Sodium Chloride 10 ml 10/10/18 22:00 11/20/18 09:37 Sodium Chloride Flush Syringe 10 Ml IV 10 ml BID RUBI Administration Sodium Chloride 10 ml 10/10/18 18:12 Sodium Chloride Flush Syringe 10 Ml IV PRN PRN LINE FLUSH Tenofovir Disoproxil Fumarate 300 mg 10/30/18 17:45 11/19/18 18:56 Viread PO 300 mg Q96H RUBI Administration Nutrition/Malnutrition Assess - Dietary Evaluation Nutrition/Malnutrition Findings: Nutrition Notes Start: 10/11/18 11:14 Freq: Status: Active Protocol: Document 11/19/18 15:53 RM (Rec: 11/19/18 16:00 RM [id number]) Nutrition Notes Initial or Follow up Reassessment Current Diagnosis Acute Kidney Injury,CKD(stage I-IV),Hypertension,Heart Failure,Stroke Other Pertinent Diagnosis Depression,Dysphagia,on HD, Acute encephalopathy,HIV/AIDS, Syphilis Current Diet Pureed w/nectar thick liquid and Nepro 1 daily Labs/Tests Reviewed Pertinent Medications Reviewed Height 5 ft 9 in Weight 52 kg [place] Body Weight (kg) 72.72 BMI 16.9 Subjective/Other Information Pt being transported at time of visit. Recorded PO intake 52% X 2 days. Per tech pt did not drink Nepro today. Percent of energy/protein needs met: 55%/63% Burn Absent Trauma Absent #2 Nutrition Diagnosis Malnutrition Diagnosis Progress(for reassessment Continues documentation) #1 Nutrition Diagnosis Inadequate oral intake Diagnosis Progress(for reassessment Continues documentation) Is patient on ventilator? No Is Patient Ambulatory and/or Out of Bed No REE-([place]-St. Jeor-confined to bed) 1695.864 Kcal/Kg value to use for calculation 40 Approximate Energy Requirements Using 0 kcal/Kg Calculation Used for Recommendations Kcal/kg Additional Notes Pro needs 1.2-1.5g/k-79g/ day Fluid needs 1ml/kcal Nutrition Intervention Change Diet Order: Continue current Add Supplement/Snack (indicate name/kcal Nepro 1 daily /protein ) Provides kCal: 425 Provides Protein (gm) 19 Goal #1 Meet at least 75% of calorie and protein needs via PO and ONS intakes Anticipated Discharge Needs: Pureed, Renal diet Follow-Up By: 11/22/18 Additional Comments Follow for PO and ONS intakes
[2018-11-20] MEDS: TIVICAY PO SCH (13:15)
[2018-11-20] MEDS: ZOLOFT PO SCH (14:01)
--- NOTE | 2018-11-20 15:17 | Progress Note ---
Assessment and Plan Assessment: * ESRD * HIV/AIDS * Acute encephalopathy * Acute hypoxic respiratory failure s/p mechanical ventilation * Hx of urinary retention * Anemia * Hyperkalemia - resolved Plan: * Continue HD qMWF schedule * UF as tolerated * Abx per primary team/ID * ID recommendations reviewed - antiretroviral treatment started 10/30 * Epogen TIW prn * Continue antiHTN medications * Note PT recommendation for SHANDRA * Outpatient HD clinic placement in progress * Patient is still with a Vas-Cath. Patient will require PermCath prior to d/c; cannot be discharged with a vascath. Vascular surgery is following. . Subjective Date of service: 11/20/18 Principal diagnosis: anemia Interval history: No acute events overnight. Low grade fever 100 this AM Objective - Vital Signs Vital signs: Vital Signs - 12hr 11/20/18 11/20/18 11/20/18 04:00 04:01 06:00 Temperature 100.0 F H Pulse Rate 119 H 118 H Pulse Rate [ Anterior Bilateral Throughout] Pulse Rate [ Anterior Left Upper Lobe] Pulse Rate [ Anterior Right Throughout] Respiratory 18 Rate Respiratory Rate [Anterior Bilateral Throughout] Respiratory Rate [Anterior Left Upper Lobe ] Respiratory Rate [Anterior Right Throughout] Respiratory 18 Rate [Bilateral Leg] Blood Pressure 125/88 125/88 O2 Sat by Pulse 99 Oximetry 11/20/18 11/20/18 11/20/18 08:13 08:24 12:13 Temperature 99.5 F Pulse Rate 114 H Pulse Rate [ 117 H Anterior Bilateral Throughout] Pulse Rate [ 114 H Anterior Left Upper Lobe] Pulse Rate [ 114 H Anterior Right Throughout] Respiratory 24 Rate Respiratory 24 Rate [Anterior Bilateral Throughout] Respiratory 28 H Rate [Anterior Left Upper Lobe ] Respiratory 28 H Rate [Anterior Right Throughout] Respiratory Rate [Bilateral Leg] Blood Pressure 91/58 O2 Sat by Pulse 95 Oximetry 11/20/18 11/20/18 11/20/18 13:09 14:03 14:16 Temperature Pulse Rate 112 H Pulse Rate [ 116 H 117 H Anterior Bilateral Throughout] Pulse Rate [ Anterior Left Upper Lobe] Pulse Rate [ Anterior Right Throughout] Respiratory Rate Respiratory 20 20 Rate [Anterior Bilateral Throughout] Respiratory Rate [Anterior Left Upper Lobe ] Respiratory Rate [Anterior Right Throughout] Respiratory Rate [Bilateral Leg] Blood Pressure 107/68 O2 Sat by Pulse Oximetry - General Appearance General appearance: cachectic, chronically ill, frail EENT: ATNC, other (bitemporal wasting) Respiratory: Present: Clear to Ascultation Cardiology: regular, S1S2 Integumentary: warm and dry Neurologic: other (alert) Musculoskeletal: other (LE contractures, no edema) Psychiatric: cooperative - Lab 11/19/18 05:31 11/19/18 05:31 Most recent lab results Calcium 8.9 mg/dL (8.4-10.2) 11/19/18 05:31 Phosphorus 8.30 mg/dL (2.5-4.5) H 10/25/18 10:00 Magnesium 3.10 mg/dL (1.7-2.3) H 10/18/18 05:03 Urine Creatinine 30.8 mg/dL (0.1-20.0) H 10/13/18 04:43 Urine Sodium 106 mmol/L 10/13/18 04:43 Urine Total Protein 75 mg/dL (5-11.8) H 10/13/18 04:43 Medications & Allergies - Medications Allergies/Adverse Reactions: Allergies Sulfa (Sulfonamide Antibiotics) Allergy (Verified 10/10/18 16:54) Unknown Home Medications: Home Medications Medication Instructions Recorded Confirmed Last Taken Type Acetaminophen [Tylenol] 1,000 mg PO Q6HR 10/10/18 10/10/18 Unknown History Amlodipine Besylate [Norvasc] 10 mg PO QDAY 10/10/18 10/10/18 Unknown History Aspirin [Adult Aspirin] 81 mg PO DAILY 10/10/18 10/10/18 Unknown History Atorvastatin [Lipitor Tab] 80 mg PO DAILY 10/10/18 10/10/18 Unknown History Losartan [Cozaar] 100 mg PO QDAY 10/10/18 10/10/18 Unknown History Multivitamin [Multiple Vitamins] 1 each PO DAILY 10/10/18 10/10/18 Unknown History hydroCHLOROthiazide [HCTZ] 25 mg PO QDAY 10/10/18 10/10/18 Unknown History Active Medications: Generic Name Dose Route Start Last Admin Trade Name Freq PRN Reason Stop Dose Admin Acetaminophen 500 mg 10/16/18 10:02 11/17/18 00:29 Tylenol PO 500 mg Q6H PRN Administration Fever >101 Albumin Human 25 gm 11/04/18 16:14 Alburx 25% (Albumin) IV CHON PRN Hypotension Albuterol 2.5 mg 10/10/18 18:12 11/15/18 01:28 Proventil IH 2.5 mg Q3HRT PRN Administration Shortness Of Breath Albuterol/Ipratropium 1 ampul 10/25/18 08:00 11/20/18 14:03 Duoneb *Not For Prn Use* IH 1 ampul TIDRT RUBI Administration Lipase/Protease/Amylase 1 each 10/11/18 12:[address] 10,500 Unit FEEDTUBE PRN PRN For Clogged Feeding Tube Atovaquone 1,500 mg 11/14/18 10:00 11/20/18 09:36 Mepron PO 1,500 mg QDAY RUBI Administration Darunavir 800 mg 10/30/18 18:00 11/20/18 09:35 Prezista PO 800 mg QDAY RUBI Administration Emtricitabine 200 mg 11/01/18 10:00 11/19/18 12:50 Emtriva PO Not Given Q48HR RUBI Epoetin Dany 20,000 unit 11/12/18 15:00 11/19/18 16:27 Procrit IV 20,000 unit .MWF RUBI Administration Heparin Sodium (Porcine) 5,000 unit 11/04/18 16:15 Heparin IV CHON PRN hemodialysis Heparin Sodium (Porcine) 5,000 unit 11/07/18 22:00 11/20/18 05:49 Heparin SUB-Q 5,000 unit Q8HR RUBI Administration Hydrophilic Ointment 1 applic 10/10/18 17:53 Vaseline Lip Therapy TP Q2HR PRN Dry Lips Sodium Chloride 100 mls @ 999 mls/hr 11/12/18 09:51 Nacl 0.9% IV CHON PRN Hypotension Cefepime HCl 1 gm in 100 mls @ 200 mls/hr 11/13/18 18:00 11/19/18 18:55 Maxipime/Ns 1 Gm/100 Ml IV 200 mls/hr QPM RUBI Administration Protocol Metronidazole 500 mg in 100 mls @ 100 mls/hr 11/15/18 16:00 11/20/18 05:49 Flagyl 500 Mg/100 Ml IV 100 mls/hr Q8HR [facility] Administration Protocol Vancomycin HCl 750 mg/ Sodium 265 mls @ 166.667 mls/hr 11/21/18 18:00 Chloride IV [id number] RUBI Lansoprazole 30 mg 03/04/19 10:00 11/20/18 09:35 Prevacid Solutab FEEDTUBE 30 mg BID RUBI Administration Metoprolol Tartrate 5 mg 10/18/18 14:05 Lopressor IV Q6HR PRN Tachyarrhythmias Metoprolol Tartrate 25 mg 11/20/18 13:31 11/20/18 14:40 Lopressor PO Not Given Q6H RUBI Multi-Ingred Cream/Lotion/Oil/Oint 1 applic 10/10/18 17:53 Artificial Tears Ophth Oint OU Q4HR PRN Dry Eye(s) Multivitamins 1 each 10/11/18 10:00 11/20/18 09:35 Theragran Tab PO 1 each DAILY RUBI Administration Nystatin 100,000 unit 11/17/18 14:00 11/20/18 09:36 Nystatin PO 11/24/18 13:59 100,000 unit TID RUBI Administration Ondansetron HCl 4 mg 11/12/18 15:05 Zofran IV Q8H PRN N/V unrelieved by Buddy Faye Hydrophilic Mucilloid 1 each 11/08/18 18:00 11/20/18 09:37 Metamucil PO 1 each QDAY RUBI Administration Ritonavir 100 mg 10/30/18 18:00 11/20/18 09:36 Norvir PO 100 mg QDAY RUBI Administration Sertraline HCl 25 mg 11/20/18 12:00 11/20/18 14:01 Zoloft PO 25 mg QDAY RUBI Administration Simple Syrup 15 ml 10/11/18 12:58 Simple Syrup FEEDTUBE PRN PRN Hypoglycemia Simple Syrup 30 ml 10/11/18 12:58 Simple Syrup FEEDTUBE PRN PRN Hypoglycemia Sodium Bicarbonate 325 mg 10/11/18 12:58 Sodium Bicarbonate FEEDTUBE PRN PRN For Clogged Feeding Tube Sodium Chloride 10 ml 10/10/18 22:00 11/20/18 09:37 Sodium Chloride Flush Syringe 10 Ml IV 10 ml BID RUBI Administration Sodium Chloride 10 ml 10/10/18 18:12 Sodium Chloride Flush Syringe 10 Ml IV PRN PRN LINE FLUSH Tenofovir Disoproxil Fumarate 300 mg 10/30/18 17:45 11/19/18 18:56 Viread PO 300 mg Q96H RUBI Administration
[2018-11-20] MEDS: MAXIPIME/NS 1 GM/100 ML 1 GM/100 ML BAG IV SCH (19:39)
[2018-11-20] MEDS ORDERED: ATROVENT IH PRN (22:07)
[2018-11-21] MEDS: LOPRESSOR PO SCH ×4 (01:19→23:35)
[2018-11-21 01:34] LABS: Hematocrit 25.5 % (35.5-45.6); Hemoglobin 7.9 gm/dl (11.8-15.2); Mean Corpuscular HGB Conc 31 % (32-34); Mean Corpuscular Volume 91 fl (84-94); Platelet Count 206 K/mm3 (140-440); Red Cell Distribution Width 19.6 % (13.2-15.2)
[2018-11-21 02:16] LABS: RBC Morphology Normal; Total Cells Counted 100
[2018-11-21] MEDS: LOPRESSOR IV PRN ×3 (03:02→21:32)
--- NOTE | 2018-11-21 05:02 | Hem/Onc Progress Note ---
Assessment and Plan 1. Anemia. At admission, hemoglobin was 8.1, later low and s/p Transfusion support. 11/21 - hb 7.9 2. Platelets at admission was 20. 4/10 - plt normal 3. White cell count was elevated. 11/21 - wbc normal 4. PT/INR h/o slightly elevated. 5. Renal failure. nephrology following 6. ALT elevated. 7. The patient has multiple medical issues. HIV - Id following 10/13 - plt better - s/p transfusion d/w dr rain and dr carrillo 10/14 - low plt - rasta ctive bleed suprapubic catheter 10/15 - plt were rising and again going down' pt had got plt transfusion LDH high - [id number] ordered smear - ordererd LDH may be high in other causes too - renal etc 10/16 - d/w path - not many schistocytes on smear - ADAMTS 13 ordered extubated 10/17 - plt low - path review ordered d/w armin monsalve 10/18 - path report pending plt low - but no active bleeding 10/19 - pt more alert - follows commands no bleeding 10/20 pt SOB - d/w Dr Monsalve and RN plt low - but no bleeding NGT+ more awake 10/21 - pt in [facility] plt >100 - more awake 10/22 - clinically better - moves all 4 limbs 10/23 - clinically stable - prbc suport 10/24 - as per RN -pt passed barium - for thickened diet pt has suprapubic got PRBC plt improving 10/25 - clinically better no active bleeding 10/26 - moving all extremity -communicating repeat cbc 10/27 - labs better - clinically improving 10/28 - plt now normal - hb better - s/p PRBC recent CKD may have a role 10/29 - pt clinically stable - pompom maker abn - electrolyte abn 10/30 - cbc improving - pt had question reg rectal tube - he will d/w other MDs 10/31 - plt better - hb better - OP follow up an option 11/01 - labs follow up 11/02 anemia d/w rn - rectal tube - decubiti suprapubic HD cath change planned 11/03/2018 pt getting HD rectal tube present 11/04- on o2 will follow labs gets HD 11/05 anemia slight SOB - on o2 HD cath 11/06 - d/w dr Shen reg pt anemia HD cath fever issues 11/07 CT shows pneumonia hb better 11/08 - anemia - d/w dr brewster - PRBC and follow 11/09 - pt less SOB s/p prbc d/w RN 11/10 hb better still has rectal tube 11/12 pt hb better gets HD - plt normal HIv - Id following 11/13 anemia - multifactorial low plt - resolved renal failure - HD pneumonia HIV 11/14 anemia d/w dr Brewster - Physical therapy off rectal tube HD - procrit 11/19 clinically stable hb 7.7 wbc and plt normal HIV ID CKD - nephrology 11/21 hb better wbc and plt normal SHRUTHI - nephrology following OP follow up - placement eval placement being looked into - Patient Problems (1) Thrombocytopenia associated with AIDS Current Visit: Yes Status: Acute Plan to address problem: now better (2) Anemia Current Visit: Yes Status: Acute Qualifiers: Anemia type: due to chronic kidney disease Chronic kidney disease stage: unspecified stage Qualified Code(s): N18.9 - Chronic kidney disease, unspecified; D63.1 - Anemia in chronic kidney disease Plan to address problem: pompom maker may have a role Subjective Date of service: 11/21/18 Principal diagnosis: anemia Interval history: pt is keeping his limbs contracted Objective - Constitutional Vitals: Last Vital Signs Temp 98.0 F 11/20/18 21:20 Pulse 113 H 11/21/18 03:13 Resp 32 H 11/20/18 21:20 BP 113/78 11/21/18 03:13 Pulse Ox 100 11/21/18 03:13 Pain Intensity (0-10): denies any pain General appearance: no acute distress Performance status: 4-completely disabled - EENT Eyes: EOM intact ENT: hearing intact Lymph node exam: negative cervical - Respiratory Respiratory effort: Positive: normal Respiratory: bilateral: diminished (effort) - Cardiovascular Heart Sounds: Present: S1 & S2 Extremities: No edema - Gastrointestinal General gastrointestinal: Present: soft Rectal Exam: deferred - Genitourinary Male genitourinary: Present: deferred - Integumentary Integumentary: warm - Musculoskeletal Musculoskeletal: generalized weakness - Neurologic Neurologic: other (keeping legs flexed) - Labs Lab Results: Laboratory Results - last 24 hr 11/20/18 11/20/18 11/21/18 06:15 19:49 01:00 WBC 9.5 RBC 2.80 L Hgb 7.9 L Hct 25.5 L MCV 91 MCH 28 MCHC 31 L RDW 19.6 H Plt Count 206 Lymph % (Auto) Joiner Apprentice Williamson % (Auto) Joiner Apprentice Eos % (Auto) Joiner Apprentice Baso % (Auto) Joiner Apprentice Lymph # Joiner Apprentice Williamson # Joiner Apprentice Eos # Joiner Apprentice Baso # Joiner Apprentice Add Manual Diff Complete Total Counted 100 Seg Neutrophils % Joiner Apprentice Seg Neuts % (Manual) 73.0 H Band Neutrophils % 0 Lymphocytes % (Manual) 11.0 L Reactive Lymphs % (Man) 0 Monocytes % (Manual) 10.0 H Eosinophils % (Manual) 3.0 Basophils % (Manual) 3.0 H Metamyelocytes % 0 Myelocytes % 0 Promyelocytes % 0 Blast Cells % 0 Nucleated RBC % Not Reportable Seg Neutrophils # Joiner Apprentice Seg Neutrophils # Man 6.9 Band Neutrophils # 0.0 Lymphocytes # (Manual) 1.0 L Abs React Lymphs (Man) 0.0 Monocytes # (Manual) 1.0 H Eosinophils # (Manual) 0.3 Basophils # (Manual) 0.3 H Metamyelocytes # 0.0 Myelocytes # 0.0 Promyelocytes # 0.0 Blast Cells # 0.0 WBC Morphology Not Reportable Hypersegmented Neuts Not Reportable Hyposegmented Neuts Not Reportable Hypogranular Neuts Not Reportable Smudge Cells Not Reportable Toxic Granulation Not Reportable Toxic Vacuolation Not Reportable Dohle Bodies Not Reportable Pelger-Huet Anomaly Not Reportable Kartik Rods Not Reportable Platelet Estimate Not Reportable Clumped Platelets Not Reportable Plt Clumps, EDTA Not Reportable Large Platelets Not Reportable Giant Platelets Not Reportable Platelet Satelliting Not Reportable Plt Morphology Comment Not Reportable RBC Morphology Normal Dimorphic RBCs Not Reportable Polychromasia Not Reportable Hypochromasia Not Reportable Poikilocytosis Not Reportable Anisocytosis Not Reportable Microcytosis Not Reportable Macrocytosis Not Reportable Spherocytes Not Reportable Pappenheimer Bodies Not Reportable Sickle Cells Not Reportable Target Cells Not Reportable Tear Drop Cells Not Reportable Ovalocytes Not Reportable Helmet Cells Not Reportable [place] Bodies Not Reportable [place] Rings Not Reportable Jani Cells Not Reportable Bite Cells Not Reportable Crenated Cell Not Reportable Elliptocytes Not Reportable Acanthocytes (Spur) Not Reportable Rouleaux Not Reportable Hemoglobin C Crystals Not Reportable Schistocytes Not Reportable Malaria parasites Not Reportable Jv Bodies Not Reportable Hem Pathologist Commnt No POC Glucose 134 H Random Vancomycin 21.1 Medications & Allergies - Medications Allergies/Adverse Reactions: Allergies Sulfa (Sulfonamide Antibiotics) Allergy (Verified 10/10/18 16:54) Unknown Home Medications: Home Medications Medication Instructions Recorded Confirmed Last Taken Type Acetaminophen [Tylenol] 1,000 mg PO Q6HR 10/10/18 10/10/18 Unknown History Amlodipine Besylate [Norvasc] 10 mg PO QDAY 10/10/18 10/10/18 Unknown History Aspirin [Adult Aspirin] 81 mg PO DAILY 10/10/18 10/10/18 Unknown History Atorvastatin [Lipitor Tab] 80 mg PO DAILY 10/10/18 10/10/18 Unknown History Losartan [Cozaar] 100 mg PO QDAY 10/10/18 10/10/18 Unknown History Multivitamin [Multiple Vitamins] 1 each PO DAILY 10/10/18 10/10/18 Unknown Hist ory hydroCHLOROthiazide [HCTZ] 25 mg PO QDAY 10/10/18 10/10/18 Unknown History Active Medications: Generic Name Dose Route Start Last Admin Trade Name Freq PRN Reason Stop Dose Admin Acetaminophen 500 mg 10/16/18 10:02 11/17/18 00:29 Tylenol PO 500 mg Q6H PRN Administration Fever >101 Albumin Human 25 gm 11/04/18 16:14 Alburx 25% (Albumin) IV CHON PRN Hypotension Albuterol/Ipratropium 1 ampul 10/25/18 08:00 11/20/18 20:35 Duoneb *Not For Prn Use* IH 1 ampul TIDRT RUBI Administration Lipase/Protease/Amylase 1 each 10/11/18 12:58 Pancrebecka Reed 10,500 Unit FEEDTUBE PRN PRN For Clogged Feeding Tube Atovaquone 1,500 mg 11/14/18 10:00 11/20/18 09:36 Mepron PO 1,500 mg QDAY RUBI Administration Darunavir 800 mg 10/30/18 18:00 11/20/18 09:35 Prezista PO 800 mg QDAY RUBI Administration Emtricitabine 200 mg 11/01/18 10:00 11/19/18 12:50 Emtriva PO Not Given Q48HR RUBI Epoetin Dany 20,000 unit 11/12/18 15:00 11/19/18 16:27 Procrit IV 20,000 unit .MWF RUBI Administration Heparin Sodium (Porcine) 5,000 unit 11/04/18 16:15 Heparin IV CHON PRN hemodialysis Heparin Sodium (Porcine) 5,000 unit 11/07/18 22:00 11/20/18 21:09 Heparin SUB-Q 5,000 unit Q8HR RUBI Administration Hydrophilic Ointment 1 applic 10/10/18 17:53 Vaseline Lip Therapy TP Q2HR PRN Dry Lips Sodium Chloride 100 mls @ 999 mls/hr 11/12/18 09:51 Nacl 0.9% IV CHON PRN Hypotension Cefepime HCl 1 gm in 100 mls @ 200 mls/hr 11/13/18 18:00 11/20/18 19:39 Maxipime/Ns 1 Gm/100 Ml IV 200 mls/hr QPM RUBI Administration Protocol Metronidazole 500 mg in 100 mls @ 100 mls/hr 11/15/18 16:00 11/20/18 21:04 Flagyl 500 Mg/100 Ml IV 100 mls/hr Q8HR RUBI Administration Protocol Vancomycin HCl 750 mg/ Sodium 265 mls @ 166.667 mls/hr 11/21/18 18:00 Chloride IV [email or web address] RUBI Ipratropium Sachse 0.5 mg 11/20/18 22:07 Atrovent IH Q4HRT PRN Shortness Of Breath Lansoprazole 30 mg 10/15/18 10:00 11/20/18 21:05 Prevacid Solutab FEEDTUBE 30 mg BID RUBI Administration Metoprolol Tartrate 5 mg 10/18/18 14:05 11/21/18 03:02 Lopressor IV 5 mg Q6HR PRN Administration Tachyarrhythmias Metoprolol Tartrate 25 mg 11/20/18 13:31 11/21/18 01:19 Lopressor PO 25 mg Q6H RUBI Administration Multi-Ingred Cream/Lotion/Oil/Oint 1 applic 10/10/18 17:53 Artificial Tears Ophth Oint OU Q4HR PRN Dry Eye(s) Multivitamins 1 each 10/11/18 10:00 11/20/18 09:35 Theragran Tab PO 1 each DAILY RUBI Administration Nystatin 100,000 unit 11/17/18 14:00 11/20/18 21:03 Nystatin PO 11/24/18 13:59 100,000 unit TID RUBI Administration Ondansetron HCl 4 mg 11/12/18 15:05 Zofran IV Q8H PRN N/V unrelieved by Buddy Faye Hydrophilic Mucilloid 1 each 11/08/18 18:00 11/20/18 09:37 Metamucil PO 1 each QDAY RUBI Administration Ritonavir 100 mg 10/30/18 18:00 11/20/18 09:36 Norvir PO 100 mg QDAY RUBI Administration Sertraline HCl 25 mg 11/20/18 12:00 11/20/18 14:01 Zoloft PO 25 mg QDAY RUBI Administration Simple Syrup 15 ml 10/11/18 12:58 Simple Syrup FEEDTUBE PRN PRN Hypoglycemia Simple Syrup 30 ml 10/11/18 12:58 Simple Syrup FEEDTUBE PRN PRN Hypoglycemia Sodium Bicarbonate 325 mg 10/11/18 12:58 Sodium Bicarbonate FEEDTUBE PRN PRN For Clogged Feeding Tube Sodium Chloride 10 ml 10/10/18 22:00 11/20/18 21:20 Sodium Chloride Flush Syringe 10 Ml IV 10 ml BID RUBI Administration Sodium Chloride 10 ml 10/10/18 18:12 Sodium Chloride Flush Syringe 10 Ml IV PRN PRN LINE FLUSH Tenofovir Disoproxil Fumarate 300 mg 10/30/18 17:45 11/19/18 18:56 Viread PO 300 mg Q96H RUBI Administration
[2018-11-21] MEDS: HEPARIN SUB-Q SCH ×3 (05:13→21:24)
[2018-11-21] MEDS: FLAGYL 500 MG/100 ML 500 MG/100 ML BAG IV SCH ×3 (05:13→21:24)
[2018-11-21] MEDS ORDERED: PROVENTIL IH PRN (07:24)
[2018-11-21] MEDS: DUONEB *Not for PRN Use IH SCH (08:47)
[2018-11-21] MEDS: NYSTATIN PO SCH ×3 (10:19→21:24)
--- NOTE | 2018-11-21 10:34 | Progress Note ---
Assessment and Plan Cultures: Blood culture 10/10/2018 no growth. Sputum culture 10/10/2018 Ana Paula albicans. Crypto Ag 10/10/2018 neg. Urine culture 10/13/2018 no growth. Blood culture 10/17/2018 no growth. Blood culture 10/20/2018: no growth Stool Occult Blood 10/23/18: positive Blood culture 10/29/18: negative Urine culture 10/31/18: Ana Paula Blood culture 11/05/18: No growth Blood culture 11/14/18: no growth >72 hours Assessment: 43 y/o male with history of HIV (unknown CD4/VL/ART intake), HTN, CVA 6 months ago at [place], Nicotine Dependence, Malnutrition; admitted on 10/10/2018 due to AMS (confusion/lethargy) and slurred speech for 24 h: 1) SIRS versus sepsis: Resolved. Etiology unknown. Could be related to decubiti, seems to be responding to abx - CXR neg - BNP 70K - Troponin 0.2 - LDH 2242 -chest CT :Patchy airspace disease in the right lower lobe compatible with pneumonia. No evidence of pleural effusion. -repeat CXR : clear lungs and normal bony and soft tissue structures. Patchy airspace disease in the right lower lobe has resolved since 11/07/18 2) Acute hypoxemic respiratory failure: for airway protection +/- ? pneumonia. Repeat CXR no consolidations. Ana Paula in tracha sp likely a colonizer. Extubated 10/15. Continues on atovaquone as prophylaxis. Patient has sulfa allergy. 3) Acute encephalopathy: Improved.; multifactorial ?from hypertensive urgency +/- brain opportunistic infection. DDx: Neurosyphilis, VZV/CMV encephalitis versus SENIOR ENERGY MARKET COORDINATOR lymphoma versus less likely PML v/s ischemic CVA (seems more likely) - CT head showed bilateral chronic ischemic changes. - Brain MRI showed areas of edema in the basal ganglia and thalami bilaterally, within the jamari and in the cerebral hemispheres bilaterally in the subcortical and deep white matter and in portions of the cortex, areas of encephalomalacia in the basal ganglia bilaterally with evidence of previous hemorrhage or mineral deposition and numerous small foci of acute infarct in the basal ganglia bilaterally, subinsular regions bilaterally and medial temporal lobes bilaterally and possibly in the occipital cortex bilaterally. - Brain MRA showed possible dissection versus artifact at the basilar artery. Luminal irregularity at the anterior, middle, and posterior cerebral arteries as well as the carotid siphons may represent mild to moderate atherosclerotic disease. More notable narrowing at the distal right A1 segment. Differential diagnosis includes motion artifact and vasculitis. Vertebral arteries are not clearly visualized. - CSF wbc 4, rbc 113, Seg 8%, Lymph 76%, protein 55, glucose 73 which is not c/w meningitis - RPR reactive 1:32 / FTA ABs reactive, treated with penicillin and ceftriaxone but CSF VDRL Non reactive. - Toxoplasma IgG negative, CSF Toxoplasma PCR: negative - Blood CMV DNA VL=1,370, 3.1 log on ganciclovir - likely reactivation - Repeat CMV DNA PCR 10/24/2018: <200. Off ganciclovir. - Glucan Assay: negative 4) Anemia/thrombocytopenia: improving. 5) Acute on CKD or SHRUTHI ? unclear etiology: on HD. 6) DM: uncontrolled. 7) HIV/AIDS: VL 320,000 / CD4=3 on 10/11/2018. 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 Started HIV treatment on 10/30/2018. Continue HIV therapy,renally adjusted TDF, FTC along with dolutegravir and ritonavir boosted darunavir. 8) Decubitus Ulcers: Left buttocks wound measures 9.0 x 2.5, Sacral wound measures 3.5 x 3.5, 80 % necrotic tissue, Right buttocks wound measures 5.0 x 3.0 per wound care. Recommendations: -continue atovaquone 750 mg BID -continue HIV therapy: renally adjusted TDF, FTC along with dolutegravir and ritonavir boosted darunavir -Continue Cefepime 1 gm Q PM and Vancomycin PK dose , D9 of D10 Continue Flagyl 500 mg IV every 8 hours, D9 of D10 -continue wound care -Cleared from ID standpoint for PermCath placement for dialysis. Rachel Ruelas NP [facility] M: [phone] O:[phone] Subjective Date of service: 11/21/18 Principal diagnosis: anemia Interval history: Patient seen and examined. No acute distress observed. Sitting up in bed. Objective - Exam Narrative Exam: General appearance: Awake, Alert, No acute distress Eyes: anicteric sclerae, moist conjunctivae; no lid-lag; PERRLA HENT: Atraumatic; oropharynx limited Neck: Trachea midline; supple, no thyromegaly or lymphadenopathy Lungs: CTA, with normal respiratory effort CV: tachycardic Abdomen: Soft, non-tender;+SP cath Extremities: No peripheral edema , + contractures bilateral lower extremities Skin: Normal temperature, turgor and texture; no rash, ulcers or subcutaneous nodules Psych: affect: Flat Neuro: Improved, following simple commands - Constitutional Vitals: Vital Signs Temp Pulse Resp BP Pulse Ox 98.0 F 126 H 18 130/85 98 11/21/18 05:09 11/21/18 10:19 11/21/18 08:55 11/21/18 10:19 11/21/18 05:09 Temperature -Last 24 Hours Temperature 98.0 F Temperature 98.0 F Temperature 98.4 F Temperature 99.5 F - Labs CBC & Chem 7: 11/21/18 01:00 11/19/18 05:31 Labs: Abnormal lab results 11/20/18 11/21/18 Range/Units 19:49 01:00 RBC 2.80 L (3.65-5.03) M/mm3 Hgb 7.9 L (11.8-15.2) gm/dl Hct 25.5 L (35.5-45.6) % MCHC 31 L (32-34) % RDW 19.6 H (13.2-15.2) % Seg Neuts % (Manual) 73.0 H (40.0-70.0) % Lymphocytes % (Manual) 11.0 L (13.4-35.0) % Monocytes % (Manual) 10.0 H (0.0-7.3) % Basophils % (Manual) 3.0 H (0.0-1.8) % Lymphocytes # (Manual) 1.0 L (1.2-5.4) K/mm3 Monocytes # (Manual) 1.0 H (0.0-0.8) K/mm3 Basophils # (Manual) 0.3 H (0.0-0.1) K/mm3 POC Glucose 134 H (70-105)
--- NOTE | 2018-11-21 10:38 | Progress Note ---
Assessment and Plan Impression * ESRD * Respiratory failure * Encephalopathy * Sepsis * cardiomyopathy--ef 35% * Anemia * Thrombocytopenia * tachycardia * HIV disease Recommendations * Patient remains oliguric. No evidence of renal recovery at this time * renal diet * HD q MWF * follow up lytes daily * He most likely has ATN * Avoid nephrotoxins * Adjust meds for GFR less than 10 * Monitor fluid status and electrolytes closely * Consultants notes appreciated * outpatient hd placement for hd * patient is still with a Vas-Cath. He will require PermCath. Discussed with v ascular surgery. Not safe to discharge patient with Vas-Cath. Once discharge arrangements have been made Subjective Date of service: 11/21/18 Principal diagnosis: anemia Interval history: resting well in bed today Objective - Exam Narrative Exam: HEENT: Oral mucosa moist no pallor or icterus Neck: Supple no JVD Chest: Clear to auscultation anteriorly CVS: Regular rate and rhythm S1 and S2 heard Abdomen: Soft nontender no suprapubic masses no organomegaly appreciable Extremity: Dry skin less than 1+ peripheral edema Musculoskeletal: No joint effusion noted in knees and ankle Neurological: Alert awake Dermatology: No petechial rashes Psychiatry: No evidence of any agitation and aggression noted - Vital Signs Vital signs: Vital Signs - 12hr 11/21/18 11/21/18 11/21/18 02:27 03:02 03:13 Temperature Pulse Rate 120 H 120 H 113 H Pulse Rate [ Anterior Right Throughout] Respiratory Rate Respiratory Rate [Anterior Right Throughout] Blood Pressure Blood Pressure 113/78 [Left] O2 Sat by Pulse 100 Oximetry 11/21/18 11/21/18 11/21/18 05:09 08:47 08:55 Temperature 98.0 F Pulse Rate 117 H Pulse Rate [ 120 H 128 H Anterior Right Throughout] Respiratory 32 H Rate Respiratory 18 18 Rate [Anterior Right Throughout] Blood Pressure 99/66 Blood Pressure [Left] O2 Sat by Pulse 98 Oximetry 11/21/18 10:19 Temperature Pulse Rate 126 H Pulse Rate [ Anterior Right Throughout] Respiratory Rate Respiratory Rate [Anterior Right Throughout] Blood Pressure 130/85 Blood Pressure [Left] O2 Sat by Pulse Oximetry - Lab 11/21/18 01:00 11/19/18 05:31 Most recent lab results Calcium 8.9 mg/dL (8.4-10.2) 11/19/18 05:31 Phosphorus 8.30 mg/dL (2.5-4.5) H 10/25/18 10:00 Magnesium 3.10 mg/dL (1.7-2.3) H 10/18/18 05:03 Urine Creatinine 30.8 mg/dL (0.1-20.0) H 10/13/18 04:43 Urine Sodium 106 mmol/L 10/13/18 04:43 Urine Total Protein 75 mg/dL (5-11.8) H 10/13/18 04:43 Medications & Allergies - Medications Allergies/Adverse Reactions: Allergies Sulfa (Sulfonamide Antibiotics) Allergy (Verified 10/10/18 16:54) Unknown Home Medications: Home Medications Medication Instructions Recorded Confirmed Last Taken Type Acetaminophen [Tylenol] 1,000 mg PO Q6HR 10/10/18 10/10/18 Unknown History Amlodipine Besylate [Norvasc] 10 mg PO QDAY 10/10/18 10/10/18 Unknown History Aspirin [Adult Aspirin] 81 mg PO DAILY 10/10/18 10/10/18 Unknown History Atorvastatin [Lipitor Tab] 80 mg PO DAILY 10/10/18 10/10/18 Unknown History Losartan [Cozaar] 100 mg PO QDAY 10/10/18 10/10/18 Unknown History Multivitamin [Multiple Vitamins] 1 each PO DAILY 10/10/18 10/10/18 Unknown History hydroCHLOROthiazide [HCTZ] 25 mg PO QDAY 10/10/18 10/10/18 Unknown History Active Medications: Generic Name Dose Route Start Last Admin Trade Name Freq PRN Reason Stop Dose Admin Acetaminophen 500 mg 10/16/18 10:02 11/17/18 00:29 Tylenol PO 500 mg Q6H PRN Administration Fever >101 Albumin Human 25 gm 11/04/18 16:14 Alburx 25% (Albumin) IV CHON PRN Hypotension Albuterol 2.5 mg 11/21/18 07:24 Proventil IH Q4HRT PRN Shortness Of Breath Lipase/Protease/Amylase 1 each 10/11/18 12:[address] 10,500 Unit FEEDTUBE PRN PRN For Clogged Feeding Tube Atovaquone 1,500 mg 11/14/18 10:00 11/20/18 09:36 Mepron PO 1,500 mg QDAY RUBI Administration Darunavir 800 mg 10/30/18 18:00 04/09/19 09:35 Prezista PO 800 mg QDAY RUBI Administration Emtricitabine 200 mg 11/01/18 10:00 11/19/18 12:50 Emtriva PO Not Given Q48HR RUBI Epoetin Dany 20,000 unit 11/12/18 15:00 11/19/18 16:27 Procrit IV 20,000 unit .MWF RUBI Administration Heparin Sodium (Porcine) 5,000 unit 11/04/18 16:15 Heparin IV CHON PRN hemodialysis Heparin Sodium (Porcine) 5,000 unit 11/07/18 22:00 11/21/18 05:13 Heparin SUB-Q 5,000 unit Q8HR RUBI Administration Hydrophilic Ointment 1 applic 10/10/18 17:53 Vaseline Lip Therapy TP Q2HR PRN Dry Lips Sodium Chloride 100 mls @ 999 mls/hr 11/12/18 09:51 Nacl 0.9% IV CHON PRN Hypotension Cefepime HCl 1 gm in 100 mls @ 200 mls/hr 11/13/18 18:00 11/20/18 19:39 Maxipime/Ns 1 Gm/100 Ml IV 200 mls/hr QPM RUBI Administration Protocol Metronidazole 500 mg in 100 mls @ 100 mls/hr 11/15/18 16:00 11/21/18 05:13 Flagyl 500 Mg/100 Ml IV 100 mls/hr Q8HR RUBI Administration Protocol Vancomycin HCl 750 mg/ Sodium 265 mls @ 166.667 mls/hr 11/21/18 18:00 Chloride IV [id number] RUBI Ipratropium Nunez 0.5 mg 11/20/18 22:07 Atrovent IH Q4HRT PRN Shortness Of Breath Lansoprazole 30 mg 10/15/18 10:00 11/20/18 21:05 Prevacid Solutab FEEDTUBE 30 mg BID RUBI Administration Metoprolol Tartrate 5 mg 10/18/18 14:05 11/21/18 03:02 Lopressor IV 5 mg Q6HR PRN Administration Tachyarrhythmias Metoprolol Tartrate 25 mg 11/20/18 13:31 11/21/18 10:19 Lopressor PO 25 mg Q6H RUBI Administration Multi-Ingred Cream/Lotion/Oil/Oint 1 applic 10/10/18 17:53 Artificial Tears Ophth Oint OU Q4HR PRN Dry Eye(s) Multivitamins 1 each 10/11/18 10:00 11/20/18 09:35 Theragran Tab PO 1 each DAILY RUBI Administration Nystatin 100,000 unit 11/17/18 14:00 11/21/18 10:19 Nystatin PO 11/24/18 13:59 100,000 unit TID RUBI Administration Ondansetron HCl 4 mg 11/12/18 15:05 Zofran IV Q8H PRN N/V unrelieved by Buddy Faye Hydrophilic Mucilloid 1 each 11/08/18 18:00 11/20/18 09:37 Metamucil PO 1 each QDAY RUBI Administration Ritonavir 100 mg 10/30/18 18:00 11/20/18 09:36 Norvir PO 100 mg QDAY RUBI Administration Sertraline HCl 25 mg 11/20/18 12:00 11/20/18 14:01 Zoloft PO 25 mg QDAY RUBI Administration Simple Syrup 15 ml 10/11/18 12:58 Simple Syrup FEEDTUBE PRN PRN Hypoglycemia Simple Syrup 30 ml 10/11/18 12:58 Simple Syrup FEEDTUBE PRN PRN Hypoglycemia Sodium Bicarbonate 325 mg 10/11/18 12:58 Sodium Bicarbonate FEEDTUBE PRN PRN For Clogged Feeding Tube Sodium Chloride 10 ml 10/10/18 22:00 11/20/18 21:20 Sodium Chloride Flush Syringe 10 Ml IV 10 ml BID RUBI Administration Sodium Chloride 10 ml 10/10/18 18:12 Sodium Chloride Flush Syringe 10 Ml IV PRN PRN LINE FLUSH Tenofovir Disoproxil Fumarate 300 mg 10/30/18 17:45 11/19/18 18:56 Viread PO 300 mg Q96H RUBI Administration
[2018-11-21 12:09] LABS: Hepatitis B Surface Antigen Non-Reactive (Negative); Hepatitis C Virus Antibody Non-Reactive (NonReactive)
[2018-11-21] MEDS: PREVACID SOLUTAB FEEDTUBE SCH ×2 (12:28→21:24)
[2018-11-21] MEDS: METAMUCIL PO SCH (12:29)
[2018-11-21] MEDS: SODIUM CHLORIDE FLUSH SYRINGE 10 ML IV SCH (12:29)
--- NOTE | 2018-11-21 13:42 | Progress Note ---
Assessment and Plan Assessment and plan: patient is 43 YO Male with HIV, hypertension, previous stroke, Nicotine Dependence, presents to ED for evaluation. Patient was confused and lethargic and unable to provide history. He was seen and evaluated in ED and found to be in distress and unable to protect his airway and was therefore intubated, placed on ventilator in ER then admitted MR brain 10/11 1. Study somewhat degraded by motion artifact. 2 Areas of edema in the basal ganglia and thalami bilaterally, within the jamari and in the cerebral hemispheres bilaterally in the subcortical and deep white matter and in portions of the cortex. 3. Areas of encephalomalacia in the basal ganglia bilaterally with evidence of previous hemorrhage or mineral deposition. 4. Numerous small foci of acute infarct in the basal ganglia bilaterally, subinsular regions bilaterally and medial temporal lobes bilaterally and possibly in the occipital cortex bilaterally. The above findings may be secondary to an infectious or noninfectious etiology with a component of vasculopathy or vasculitis resulting in infarcts. Viral encephalopathies and lymphoma would need to be considered in this patient with history of HIV. Neuro ams acute metabolic encephalopathy improving /Acute CVA with Bilateral infarcts with edema Consulted Neurology, he was evaluated by DR. Valentine. mentation is improved, and this is likely his new baseline Dysphagia/ moderate malnutrition -MBS 10/23, recommended pureed with nectar thickened liquids, continue this diet -game warden consulted Hematology Anemia- stable, thrombocytopenia, leukocytosis, coagulopathy; now resolved -Status post platelet (3 units) and prbc (6 units ) transfusion, the patient had only few schistocytes on smear, ADAMS13 91% activity , plt count has recovered ID HIV/AIDS, CD4 count 3, HIV viral load 320,000 acute bacterial PNA, CMV viremia toxo neg, CSF neg ,Whole blood cmv PCR was positive at 1374 abx and anti- antiviral per ID,continues to have fever on and off -he was put back on HAART, he likely has component of IRIS causing fevers and sob -most recent cxr 11/12 show no infiltrate, dw ID oral thrus, nystatin swish and spit ordered x 7 days FEN/Renal SHRUTHI- ATN, no signs of renal recovery, now ESRD, Hyperkalemia, urinary retention Severe protein calorie malnutrition sp SPC on 10/12 cont HD per nephrology, no signs of renal recovery -now afebrile, spoke to vas sx about PC placement -dietitican consult Pulm acute hypoxic resp failure on MV> 96 hours self extubated 10/16, continue supplemental oxygen prn CTA neg for PE on 11/06 CVS /Hypertensive urgency and acute systolic CHF He was treated with Cardene drip which was weaned off. Optimize medications for CHF on coreg, no mik due to high K, fluid removal by dialysis Skin Stage 2 sacral wound decub, and bilat buttock wounds left buttocks area. The wound is measured at 9.0x2.5. 25% slough noticed to the wound sacral area. The wound is measured at 3.5x3.5.80% necrotic tissue noticed to the wound right buttocks area. The wound is measured at 5.0x3.0. no evidence of infection, but wounds are necrotic, cont wound care Depression MH input appreciated, he is improving Severe debility; he was previously refusing PT and not participating, I spoke to the patient . He agrees to be more complaints of physical therapy. he is now participating with PT, contractures are improving DVT ppx- heparin sq Dispo: Needs HD and home health set up before he can be dc History Interval history: Patient continues to have weakness of his voice, Review of systems Constitutional: ,overall malaise, improved appetite CVS: No chest pain, no orthopnea, no dyspnea on exertion, no pedal edema GI: No abdominal pain, no diarrhea, no vomiting, no constipation Respiratory: sob improved, no wheezing, denies cough Hospitalist Physical - Physical exam Narrative exam: General.: Appears chronically ill, weak voice, cachectic HEENT: Moist mucous membranes, extraocular muscles intact, no lymphadenopathy Neck: supple Cardiac: S1-S2 heard Lungs: rales Abdomen: soft , nontender, nondistended, bowel sounds positive Extremities: no edema Skin: decub on bilat buttock and sacrum Neurologic: no gross focal deficits, generalized weakness Psych: calm, and cooperative, flat affect - Constitutional Vitals: Temp Pulse Resp BP Pulse Ox 99.8 F H 130 H 16 110/73 99 11/21/18 12:03 11/21/18 12:03 11/21/18 12:03 11/21/18 12:03 11/21/18 12:03 General appearance: Present: no acute distress Results - Labs CBC & Chem 7: 11/21/18 01:00 11/19/18 05:31 Labs: Laboratory Last Values WBC 9.5 K/mm3 (4.5-11.0) 11/21/18 01:00 RBC 2.80 M/mm3 (3.65-5.03) L 11/21/18 01:00 Hgb 7.9 gm/dl (11.8-15.2) L 11/21/18 01:00 Hct 25.5 % (35.5-45.6) L 11/21/18 01:00 MCV 91 fl (84-94) 11/21/18 01:00 MCH 28 pg (28-32) 11/21/18 01:00 MCHC 31 % (32-34) L 11/21/18 01:00 RDW 19.6 % (13.2-15.2) H 11/21/18 01:00 Plt Count 206 K/mm3 (140-440) 11/21/18 01:00 Lymph % (Auto) Nursing Informatics Analyst 11/21/18 01:00 Centre % (Auto) Nursing Informatics Analyst 11/21/18 01:00 Eos % (Auto) Nursing Informatics Analyst 11/21/18 01:00 Baso % (Auto) Nursing Informatics Analyst 11/21/18 01:00 Lymph # Nursing Informatics Analyst 11/21/18 01:00 Centre # Nursing Informatics Analyst 11/21/18 01:00 Eos # Nursing Informatics Analyst 11/21/18 01:00 Baso # Nursing Informatics Analyst 11/21/18 01:00 Add Manual Diff Complete 11/21/18 01:00 Total Counted 100 11/21/18 01:00 Seg Neutrophils % Nursing Informatics Analyst 11/21/18 01:00 Seg Neuts % (Manual) 73.0 % (40.0-70.0) H 11/21/18 01:00 Band Neutrophils % 0 % 11/21/18 01:00 Lymphocytes % (Manual) 11.0 % (13.4-35.0) L 11/21/18 01:00 Reactive Lymphs % (Man) 0 % 11/21/18 01:00 Monocytes % (Manual) 10.0 % (0.0-7.3) H 11/21/18 01:00 Eosinophils % (Manual) 3.0 % (0.0-4.3) 11/21/18 01:00 Basophils % (Manual) 3.0 % (0.0-1.8) H 11/21/18 01:00 Metamyelocytes % 0 % 11/21/18 01:00 Myelocytes % 0 % 11/21/18 01:00 Promyelocytes % 0 % 11/21/18 01:00 Blast Cells % 0 % 11/21/18 01:00 Nucleated RBC % Not Reportable 11/21/18 01:00 Seg Neutrophils # Nursing Informatics Analyst 11/21/18 01:00 Seg Neutrophils # Man 6.9 K/mm3 (1.8-7.7) 11/21/18 01:00 Band Neutrophils # 0.0 K/mm3 11/21/18 01:00 Abs Lymphs (Manual) 267 cells/uL (850-3900) L 10/11/18 17:36 Lymphocytes # (Manual) 1.0 K/mm3 (1.2-5.4) L 11/21/18 01:00 Abs React Lymphs (Man) 0.0 K/mm3 11/21/18 01:00 Monocytes # (Manual) 1.0 K/mm3 (0.0-0.8) H 11/21/18 01:00 Eosinophils # (Manual) 0.3 K/mm3 (0.0-0.4) 11/21/18 01:00 Basophils # (Manual) 0.3 K/mm3 (0.0-0.1) H 11/21/18 01:00 Metamyelocytes # 0.0 K/mm3 11/21/18 01:00 Myelocytes # 0.0 K/mm3 11/21/18 01:00 Promyelocytes # 0.0 K/mm3 11/21/18 01:00 Blast Cells # 0.0 K/mm3 11/21/18 01:00 Pathologist Review 10/15/18 03:14 WBC Morphology Not Reportable 11/21/18 01:00 Hypersegmented Neuts Not Reportable 11/21/18 01:00 Hyposegmented Neuts Not Reportable 11/21/18 01:00 Hypogranular Neuts Not Reportable 11/21/18 01:00 Smudge Cells Not Reportable 11/21/18 01:00 Toxic Granulation Not Reportable 11/21/18 01:00 Toxic Vacuolation Not Reportable 11/21/18 01:00 Dohle Bodies Not Reportable 11/21/18 01:00 Pelger-Huet Anomaly Not Reportable 11/21/18 01:00 Kartik Rods Not Reportable 11/21/18 01:00 Platelet Estimate Not Reportable 11/21/18 01:00 Clumped Platelets Not Reportable 11/21/18 01:00 Plt Clumps, EDTA Not Reportable 11/21/18 01:00 Large Platelets Not Reportable 11/21/18 01:00 Giant Platelets Not Reportable 11/21/18 01:00 Platelet Satelliting Not Reportable 11/21/18 01:00 Plt Morphology Comment Not Reportable 11/21/18 01:00 RBC Morphology Normal 11/21/18 01:00 Dimorphic RBCs Not Reportable 11/21/18 01:00 Polychromasia Not Reportable 11/21/18 01:00 Hypochromasia Not Reportable 11/21/18 01:00 Poikilocytosis Not Reportable 11/21/18 01:00 Anisocytosis Not Reportable 11/21/18 01:00 Microcytosis Not Reportable 11/21/18 01:00 Macrocytosis Not Reportable 11/21/18 01:00 Spherocytes Not Reportable 11/21/18 01:00 Pappenheimer Bodies Not Reportable 11/21/18 01:00 Sickle Cells Not Reportable 11/21/18 01:00 Target Cells Not Reportable 11/21/18 01:00 Tear Drop Cells Not Reportable 11/21/18 01:00 Ovalocytes Not Reportable 11/21/18 01:00 Stomatocytes Few 11/10/18 06:54 Helmet Cells Not Reportable 11/21/18 01:00 [place] Bodies Not Reportable 11/21/18 01:00 [place] Rings Not Reportable 11/21/18 01:00 [place] Cells Not Reportable 11/21/18 01:00 Bite Cells Not Reportable 11/21/18 01:00 Crenated Cell Not Reportable 11/21/18 01:00 Elliptocytes Not Reportable 11/21/18 01:00 Acanthocytes (Spur) Not Reportable 11/21/18 01:00 Rouleaux Not Reportable 11/21/18 01:00 Hemoglobin C Crystals Not Reportable 11/21/18 01:00 Schistocytes Not Reportable 11/21/18 01:00 Malaria parasites Not Reportable 11/21/18 01:00 Jv Bodies Not Reportable 11/21/18 01:00 Hem Pathologist Commnt No 11/21/18 01:00 PT 17.7 Sec. (12.2-14.9) H 11/06/18 13:18 INR 1.36 (0.87-1.13) H 11/06/18 13:18 APTT 30.6 Sec. (24.2-36.6) 11/06/18 13:18 Thrombin Time 16.9 Sec. (15.1-19.6) 10/10/18 15:02 Heparin Anti-Xa Level < 0.10 U.I./ml (0.3-0.7) L 11/07/18 21:31 Heparin Anti-Xa, Unfract Negative (Negative) 10/25/18 05:59 POC ABG pH 7.514 (7.35-7.45) H 11/03/18 16:12 POC ABG pCO2 32.0 (35-45) L 10/21/18 09:49 POC ABG pO2 62 (80-105) L 11/03/18 16:12 POC ABG HCO3 23.2 (22-26 mml/L) 11/03/18 16:12 POC ABG Total CO2 24 (23-27mmol/L) 11/03/18 16:12 POC ABG O2 Sat 94 11/03/18 16:12 POC ABG Base Excess 0 ((-2) - (+3)mmol/L) 11/03/18 16:12 FiO2 4 % 11/03/18 16:12 Sodium 141 mmol/L (137-145) 11/19/18 05:31 Potassium 4.6 mmol/L (3.6-5.0) 11/19/18 05:31 Chloride 98.1 mmol/L (98-107) 11/19/18 05:31 Carbon Dioxide 21 mmol/L (22-30) L 11/19/18 05:31 Anion Gap 27 mmol/L 11/19/18 05:31 BUN 62 mg/dL (9-20) H 11/19/18 05:31 Creatinine 8.5 mg/dL (0.8-1.5) H 11/19/18 05:31 Estimated GFR 8 ml/min 11/19/18 05:31 BUN/Creatinine Ratio 7 % 11/19/18 05:31 Glucose 129 mg/dL (75-100) H 11/19/18 05:31 POC Glucose 134 (70-105) H 11/20/18 19:49 Osmolality 338 Mosm/kg 10/11/18 17:35 Lactic Acid 1.80 mmol/L (0.7-2.0) 10/12/18 05:59 Uric Acid 13.4 mg/dL (3.5-7.6) H 10/11/18 17:36 Calcium 8.9 mg/dL (8.4-10.2) 11/19/18 05:31 Phosphorus 8.30 mg/dL (2.5-4.5) H 10/25/18 10:00 Magnesium 3.10 mg/dL (1.7-2.3) H 10/18/18 05:03 Iron 147 ug/dL (49-181) 10/11/18 17:36 TIBC 236 mcg/dL (250-450) L 10/11/18 17:36 Ferritin 35052.0 ng/mL (13.0-400.0) H 10/11/18 17:35 Total Bilirubin 0.30 mg/dL (0.1-1.2) 11/19/18 05:31 Direct Bilirubin 0.2 mg/dL (0-0.2) 10/16/18 04:07 Indirect Bilirubin 0.3 mg/dL 10/16/18 04:07 AST 26 units/L (5-40) 11/19/18 05:31 ALT 11 units/L (7-56) 11/19/18 05:31 Alkaline Phosphatase 74 units/L (35-129) 11/19/18 05:31 Ammonia 25.0 umol/L (25-60) 10/17/18 14:59 Lactate Dehydrogenase 925 units/L (91-180) H 10/22/18 05:51 Troponin T 0.357 ng/mL (0.00-0.029) H* 11/06/18 05:54 NT-Pro-B Natriuret Pep 41290 pg/mL (0-450) H 10/10/18 15:42 Total Protein 7.6 g/dL (6.3-8.2) 11/19/18 05:31 Albumin 2.6 g/dL (3.9-5) L 11/19/18 05:31 Albumin/Globulin Ratio 0.5 % 11/19/18 05:31 Triglycerides 306 mg/dL (2-149) H 11/05/18 11:29 Cholesterol 145 mg/dL (50-199) 11/05/18 11:29 LDL Cholesterol Direct 89 mg/dL (50-130) 11/05/18 11:29 HDL Cholesterol 25 mg/dL (40-59) L 11/05/18 11:29 Cholesterol/HDL Ratio 5.80 % 11/05/18 11:29 Serotonin Release Assay See scanned result 10/25/18 05:59 Vitamin B12 912.3 pg/mL (211-911) H 10/14/18 08:51 Folate 8.32 ng/mL (7.3-26.0) 10/14/18 08:51 PTH Intact 388.7 pg/mL (15-65) H 10/25/18 10:00 Urine Creatinine 30.8 mg/dL (0.1-20.0) H 10/13/18 04:43 Urine Sodium 106 mmol/L 10/13/18 04:43 Urine Total Protein 75 mg/dL (5-11.8) H 10/13/18 04:43 CSF Appearance Clear 10/16/18 15:00 CSF Color Colorless 10/16/18 15:00 CSF WBC 4 /mm3 (1-10) 10/16/18 15:00 CSF RBC 113 /mm3 (0-0) 10/16/18 15:00 CSF Seg Neutrophils 8.0 % (0-6) 10/16/18 15:00 CSF Lymphocytes % 76.0 % (40-80) 10/16/18 15:00 CSF Reactive Lymphs 2.0 % 10/16/18 15:00 CSF Monocytes % 14.0 % (15-45) 10/16/18 15:00 CSF Eosinophils % 0 % 10/16/18 15:00 CSF Basophils 0 % 10/16/18 15:00 CSF Pathologist Review C 10/16/18 15:00 CSF Glucose 73 mg/dL 10/16/18 15:00 CSF Total Protein 55 mg/dL 10/16/18 15:00 CSF VDRL Nonreactive (Nonreactive) 10/16/18 15:00 Random Vancomycin 21.1 ug/mL (0-40.0) 11/20/18 06:15 Immunofix Electrophor see below 10/11/18 17:36 RENO Screen Negative (Negative) 10/21/18 15:07 Proteinase 3 (PR3) Ab <1.0 AI (<1.0) 10/21/18 15:07 Myeloperoxidase Ab <1.0 AI (<1.0) 10/21/18 15:07 Heparin-induced Plt Ab Negative (Negative) 10/25/18 05:59 UF Heparin High Dose 0 % Release 10/25/18 05:59 VJ UFH Low Dose 0.1 0 % Release 10/25/18 05:59 VJ UFH Low Dose 0.5 14 % Release 10/25/18 05:59 Lymph Enumerat CD4/CD8 0.01 (0.86-5.00) L 10/11/18 17:36 % CD3 Cells 85 % (57-85) 10/11/18 17:36 Absolute CD3 Count 226 cells/uL (840-3060) L 10/11/18 17:36 % CD4 Cells 1 % (30-61) L 10/11/18 17:36 Absolute CD4 Count 3 cells/uL (490-1740) L 10/11/18 17:36 % CD8 Cells 82 % (12-42) H 10/11/18 17:36 Absolute CD8 Count 228 cells/uL (180-1170) 10/11/18 17:36 % CD19 Cells 6 % (6-29) 10/11/18 17:36 Absolute CD19 Count 16 cells/uL (110-660) L 10/11/18 17:36 RPR Titer 1:32 10/11/18 17:37 RPR Reactive (Nonreactive) 10/11/18 17:37 T.pallidum Ab (FTA-ABS) Reactive (Nonreactive) H 10/12/18 Unknown 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 See scanned result 10/24/18 17:47 Hepatitis A IgM Ab Non-reactive (NonReactive) 11/21/18 09:58 Hep Bs Antigen Non-reactive (Negative) 11/21/18 09:58 Hep B Core IgM Ab Non-reactive (NonReactive) 11/21/18 09:58 Hepatitis C Antibody Non-reactive (NonReactive) 11/21/18 09:58 HIV-1 RNA PCR copies/ml [id number] Copies/mL H 10/11/18 17:36 HIV-1 RNA (PCR) log 5.51 Log cps/mL H 10/11/18 17:36 HIV-1 Genotyping See scanned results 10/29/18 19:48 Toxoplasma IgG Ab <7.20 IU/mL (<7.20) 10/13/18 07:54 Miscellaneous Test Flexitest 1 10/31/18 06:43 Blood Type A POSITIVE 11/08/18 11:28 Antibody Screen Negative 11/08/18 11:28 Crossmatch See Detail 11/08/18 11:28 Active Medications - Current Medications Current Medications: Generic Name Dose Route Start Last Admin Trade Name Freq PRN Reason Stop Dose Admin Acetaminophen 500 mg 10/16/18 10:02 11/17/18 00:29 Tylenol PO 500 mg Q6H PRN Administration Fever >101 Albumin Human 25 gm 11/04/18 16:14 Alburx 25% (Albumin) IV CHON PRN Hypotension Albuterol 2.5 mg 11/21/18 07:24 Proventil IH Q4HRT PRN Shortness Of Breath Lipase/Protease/Amylase 1 each 10/11/18 12:[address] 10,500 Unit FEEDTUBE PRN PRN For Clogged Feeding Tube Atovaquone 1,500 mg 11/14/18 10:00 11/20/18 09:36 Mepron PO 1,500 mg QDAY RUBI Administration Darunavir 800 mg 10/30/18 18:00 11/20/18 09:35 Prezista PO 800 mg QDAY RUBI Administration Emtricitabine 200 mg 11/01/18 10:00 11/19/18 12:50 Emtriva PO Not Given Q48HR RUBI Epoetin Dany 20,000 unit 11/12/18 15:00 11/19/18 16:27 Procrit IV 20,000 unit .MWF RUBI Administration Heparin Sodium (Porcine) 5,000 unit 11/04/18 16:15 Heparin IV CHON PRN hemodialysis Heparin Sodium (Porcine) 5,000 unit 11/07/18 22:00 11/21/18 05:13 Heparin SUB-Q 5,000 unit Q8HR RUBI Administration Hydrophilic Ointment 1 applic 10/10/18 17:53 Vaseline Lip Therapy TP Q2HR PRN Dry Lips Sodium Chloride 100 mls @ 999 mls/hr 11/12/18 09:51 Nacl 0.9% IV CHON PRN Hypotension Cefepime HCl 1 gm in 100 mls @ 200 mls/hr 11/13/18 18:00 11/20/18 19:39 Maxipime/Ns 1 Gm/100 Ml IV 200 mls/hr QPM RUBI Administration Protocol Metronidazole 500 mg in 100 mls @ 100 mls/hr 11/15/18 16:00 11/21/18 05:13 Flagyl 500 Mg/100 Ml IV 100 mls/hr Q8HR RUBI Administration Protocol Vancomycin HCl 750 mg/ Sodium 265 mls @ 166.667 mls/hr 11/21/18 18:00 Chloride IV [id number] RUBI Ipratropium Fries 0.5 mg 11/20/18 22:07 Atrovent IH Q4HRT PRN Shortness Of Breath Lansoprazole 30 mg 10/15/18 10:00 11/21/18 12:28 Prevacid Solutab FEEDTUBE Not Given BID RUBI Metoprolol Tartrate 5 mg 10/18/18 14:05 11/21/18 03:02 Lopressor IV 5 mg Q6HR PRN Administration Tachyarrhythmias Metoprolol Tartrate 25 mg 11/20/18 13:31 11/21/18 13:41 Lopressor PO Not Given Q6H [facility] Multi-Ingred Cream/Lotion/Oil/Oint 1 applic 10/10/18 17:53 Artificial Tears Ophth Oint OU Q4HR PRN Dry Eye(s) Multivitamins 1 each 10/11/18 10:00 11/20/18 09:35 Theragran Tab PO 1 each DAILY RUBI Administration Nystatin 100,000 unit 11/17/18 14:00 11/21/18 10:19 Nystatin PO 11/24/18 13:59 100,000 unit TID RUBI Administration Ondansetron HCl 4 mg 11/12/18 15:05 Zofran IV Q8H PRN N/V unrelieved by Buddy Faye Hydrophilic Mucilloid 1 each 11/08/18 18:00 11/21/18 12:29 Metamucil PO Not Given QDAY RUBI Ritonavir 100 mg 10/30/18 18:00 11/20/18 09:36 Norvir PO 100 mg QDAY RUBI Administration Sertraline HCl 25 mg 11/20/18 12:00 11/20/18 14:01 Zoloft PO 25 mg QDAY RUBI Administration Simple Syrup 15 ml 10/11/18 12:58 Simple Syrup FEEDTUBE PRN PRN Hypoglycemia Simple Syrup 30 ml 10/11/18 12:58 Simple Syrup FEEDTUBE PRN PRN Hypoglycemia Sodium Bicarbonate 325 mg 10/11/18 12:58 Sodium Bicarbonate FEEDTUBE PRN PRN For Clogged Feeding Tube Sodium Chloride 10 ml 10/10/18 22:00 11/21/18 12:29 Sodium Chloride Flush Syringe 10 Ml IV 10 ml BID RUBI Administration Sodium Chloride 10 ml 10/10/18 18:12 Sodium Chloride Flush Syringe 10 Ml IV PRN PRN LINE FLUSH Tenofovir Disoproxil Fumarate 300 mg 10/30/18 17:45 11/19/18 18:56 Viread PO 300 mg Q96H RUBI Administration Nutrition/Malnutrition Assess - Dietary Evaluation Nutrition/Malnutrition Findings: Nutrition Notes Start: 10/11/18 11:14 Freq: Status: Active Protocol: Document 11/19/18 15:53 RM (Rec: 11/19/18 16:00 RM [id number]) Nutrition Notes Initial or Follow up Reassessment Current Diagnosis Acute Kidney Injury,CKD(stage I-IV),Hypertension,Heart Failure,Stroke Other Pertinent Diagnosis Depression,Dysphagia,on HD, Acute encephalopathy,HIV/AIDS, Syphilis Current Diet Pureed w/nectar thick liquid and Nepro 1 daily Labs/Tests Reviewed Pertinent Medications Reviewed Height 5 ft 9 in Weight 52 kg [place] Body Weight (kg) 72.72 BMI 16.9 Subjective/Other Information Pt being transported at time of visit. Recorded PO intake 52% X 2 days. Per tech pt did not drink Nepro today. Percent of energy/protein needs met: 55%/63% Burn Absent Trauma Absent #2 Nutrition Diagnosis Malnutrition Diagnosis Progress(for reassessment Continues documentation) #1 Nutrition Diagnosis Inadequate oral intake Diagnosis Progress(for reassessment Continues documentation) Is patient on ventilator? No Is Patient Ambulatory and/or Out of Bed No REE-([facility]-confined to bed) 1695.864 Kcal/Kg value to use for calculation 40 Approximate Energy Requirements Using 2080 kcal/Kg Calculation Used for Recommendations Kcal/kg Additional Notes Pro needs 1.2-1.5g/k-79g/ day Fluid needs 1ml/kcal Nutrition Intervention Change Diet Order: Continue current Add Supplement/Snack (indicate name/kcal Nepro 1 daily /protein ) Provides kCal: 425 Provides Protein (gm) 19 Goal #1 Meet at least 75% of calorie and protein needs via PO and ONS intakes Anticipated Discharge Needs: Pureed, Renal diet Follow-Up By: 11/22/18 Additional Comments Follow for PO and ONS intakes
--- NOTE | 2018-11-21 15:24 | Progress Note ---
Subjective - Reason for Consult Consult date: 11/21/18 Reason for consult: Psychiatric Follow-up Evaluation - Chief Complaint Chief complaint: "Good." Patient is a 43 year old male who presented to the emergency room with altered mental status and difficulty speaking. Today the patient is calm during the assessment. He continues to be guarded/withdrawn. Speech is minimal. He rated his depression 2/10, with 10 being the worse by holding up two fingers. He denies SI/HI's, AVH's, and delusions. Patient compliant with Zoloft. Mental Status Exam - Vital signs Last Vital Signs Temp 98.0 F 11/21/18 12:15 Pulse 131 H 11/21/18 14:45 Resp 16 11/21/18 12:15 BP 127/71 11/21/18 14:45 Pulse Ox 99 11/21/18 12:03 - Exam Narrative exam: Mental Status Exam Appearance: calm Behavior: regular eye contact Speech: slow rate and low tone Mood:: "good" Affect: flat Thought Process: somewhat circumstantial Thought Content: denies SI/HI's, AVH's, and delusions Motor Activity: sitting up in bed Cognition: A/O x3 Insight: variable Judgment: fair Assessment and Plan Impression: MDD. Today the patient is calm during the assessment. He continues to be guarded/withdrawn. He denies SI/HI's, A/VH's, and delusions. Recommendation/Plan: 1. Will reassess in 24 hours. 2. Increase Zoloft 50 mg PO daily for depression. Discussed possible suicidality/medication induced george with the patient reference Zoloft. Follow up with the patient in 24 hours. Disposition: The patient can follow up with [facility] for outpatient psy services. Will staff with Dr. Prema Mendez.
[2018-11-21] MEDS: MEPRON PO SCH (17:48)
[2018-11-21] MEDS: EMTRIVA PO SCH (17:49)
[2018-11-21] MEDS: PREZISTA PO SCH (17:49)
[2018-11-21] MEDS: ZOLOFT PO SCH (17:49)
[2018-11-21] MEDS: NORVIR PO SCH (17:49)
--- NOTE | 2018-11-21 17:49 | Event Note ---
Date: 11/21/18 Asked to evaluate pt for conversion from vas cath to permacath in prep for d/c from the hospital. Pt made NPO in prep for possible procedure today. 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 We will therefore resume his diet. The procedural schedule is unlikely to be able to accommodate this case tomorrow, so I will schedule it for Monday morning. The pt currently has HD access an therefore is non-emergent, but will attempt to convert to the perma- cath as quickly as possible. Discussed the procedure with the pt's mother, Amos, via the telephone. The R,B,and A were discussed in great detail. She states understanding and agrees.
[2018-11-21] MEDS: THERAGRAN Tab PO SCH (17:50)
[2018-11-21] MEDS: TIVICAY PO SCH (17:51)
[2018-11-21] MEDS ORDERED: VANCOMYCIN 750 MG in NACL 0.9% 250ML 250 ML IV SCH (18:00)
[2018-11-21] MEDS: MAXIPIME/NS 1 GM/100 ML 1 GM/100 ML BAG IV SCH (19:31)
[2018-11-21] MEDS ORDERED: NACL 0.9 (PRIMING MACHINE ONLY DIALYSIS) MC ONE (19:43)
[2018-11-22] MEDS: LOPRESSOR PO SCH ×4 (02:29→18:30)
[2018-11-22] MEDS: FLAGYL 500 MG/100 ML 500 MG/100 ML BAG IV SCH ×3 (06:51→20:56)
[2018-11-22] MEDS: HEPARIN SUB-Q SCH ×3 (06:51→20:57)
[2018-11-22] MEDS: SODIUM CHLORIDE FLUSH SYRINGE 10 ML IV SCH ×3 (07:03→20:58)
[2018-11-22] MEDS: NYSTATIN PO SCH ×3 (08:45→20:56)
--- NOTE | 2018-11-22 10:33 | Progress Note ---
Assessment and Plan Cultures: Blood culture 10/10/2018 no growth. Sputum culture 10/10/2018 Ana Paula albicans. Crypto Ag 10/10/2018 neg. Urine culture 10/13/2018 no growth. Blood culture 10/17/2018 no growth. Blood culture 10/20/2018: no growth Stool Occult Blood 10/23/18: positive Blood culture 10/29/18: negative Urine culture 10/31/18: Ana Paula Blood culture 11/05/18: No growth Blood culture 11/14/18: no growth >72 hours Assessment: 43 y/o male with history of HIV (unknown CD4/VL/ART intake), HTN, CVA 6 months ago at [place], Nicotine Dependence, Malnutrition; admitted on 10/10/2018 due to AMS (confusion/lethargy) and slurred speech for 24 h: 1) SIRS versus sepsis: Resolved. Etiology unknown. Could be related to decubiti, seems to be responding to abx - CXR neg - BNP 70K - Troponin 0.2 - LDH 2242 -chest CT :Patchy airspace disease in the right lower lobe compatible with pneumonia. No evidence of pleural effusion. -repeat CXR : clear lungs and normal bony and soft tissue structures. Patchy airspace disease in the right lower lobe has resolved since 11/07/18 2) Acute hypoxemic respiratory failure: for airway protection +/- ? pneumonia. Repeat CXR no consolidations. Ana Paula in tracha sp likely a colonizer. Extubated 10/15. Continues on atovaquone as prophylaxis. Patient has sulfa allergy. 3) Acute encephalopathy: Improved.; multifactorial ?from hypertensive urgency +/- brain opportunistic infection. DDx: Neurosyphilis, VZV/CMV encephalitis versus [employer] lymphoma versus less likely PML v/s ischemic CVA (seems more likely) - CT head showed bilateral chronic ischemic changes. - Brain MRI showed areas of edema in the basal ganglia and thalami bilaterally, within the jamari and in the cerebral hemispheres bilaterally in the subcortical and deep white matter and in portions of the cortex, areas of encephalomalacia in the basal ganglia bilaterally with evidence of previous hemorrhage or mineral deposition and numerous small foci of acute infarct in the basal ganglia bilaterally, subinsular regions bilaterally and medial temporal lobes bilaterally and possibly in the occipital cortex bilaterally. - Brain MRA showed possible dissection versus artifact at the basilar artery. Luminal irregularity at the anterior, middle, and posterior cerebral arteries as well as the carotid siphons may represent mild to moderate atherosclerotic disease. More notable narrowing at the distal right A1 segment. Differential diagnosis includes motion artifact and vasculitis. Vertebral arteries are not clearly visualized. - CSF wbc 4, rbc 113, Seg 8%, Lymph 76%, protein 55, glucose 73 which is not c/w meningitis - RPR reactive 1:32 / FTA ABs reactive, treated with penicillin and ceftriaxone but CSF VDRL Non reactive. - Toxoplasma IgG negative, CSF Toxoplasma PCR: negative - Blood CMV DNA VL=1,370, 3.1 log on ganciclovir - likely reactivation - Repeat CMV DNA PCR 10/24/2018: <200. Off ganciclovir. - Glucan Assay: negative 4) Anemia/thrombocytopenia: improving. 5) Acute on CKD or SHRUTHI ? unclear etiology: on HD. 6) DM: uncontrolled. 7) HIV/AIDS: VL 320,000 / CD4=3 on 10/11/2018. 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 Started HIV treatment on 10/30/2018. Continue HIV therapy,renally adjusted TDF, FTC along with dolutegravir and ritonavir boosted darunavir. 8) Decubitus Ulcers: Left buttocks wound measures 9.0 x 2.5, Sacral wound measures 3.5 x 3.5, 80 % necrotic tissue, Right buttocks wound measures 5.0 x 3.0 per wound care. Recommendations: -continue atovaquone 750 mg BID -continue HIV therapy: renally adjusted TDF, FTC along with dolutegravir and ritonavir boosted darunavir -Continue Cefepime 1 gm Q PM and Vancomycin PK dose D10 - last dose today Continue Flagyl 500 mg IV every 8 hours, D10- last dose today -continue wound care -Permacath placement scheduled for Monday [facility] M: [phone] O:[phone] Subjective Date of service: 11/22/18 Principal diagnosis: anemia Interval history: Patient seen and examined. Reports generalized weakness, no pain. no Fevers. Objective - Exam Narrative Exam: General appearance: Awake, Alert, No acute distress Eyes: anicteric sclerae, moist conjunctivae; no lid-lag; PERRLA HENT: Atraumatic; oropharynx limited Neck: Trachea midline; supple, no thyromegaly or lymphadenopathy Lungs: CTA, with normal respiratory effort CV: tachycardic Abdomen: Soft, non-tender;+SP cath Extremities: No peripheral edema , + contractures bilateral lower extremities Skin: Normal temperature, turgor and texture; no rash, ulcers or subcutaneous nodules Psych: affect: Flat Neuro: Improved, following simple commands - Constitutional Vitals: Vital Signs Temp Pulse Resp BP Pulse Ox 98.2 F 123 H 24 136/95 100 11/22/18 05:17 11/22/18 08:45 11/22/18 05:17 11/22/18 08:45 11/22/18 05:17 Temperature -Last 24 Hours Temperature 98.2 F Temperature 98.2 F Temperature 98.1 F Temperature 98.1 F Temperature 98.0 F Temperature 98.0 F Temperature 99.8 F - Labs CBC & Chem 7: 11/21/18 01:00 11/19/18 05:31
--- NOTE | 2018-11-22 10:53 | Progress Note ---
Subjective - Reason for Consult Consult date: 11/22/18 Reason for consult: Psychiatry Follow-up - Chief Complaint Chief complaint: "I am okay today" 43 year old male who presented to the emergency room with altered mental status and difficulty speaking. Today the patient is calm and cooperative during the assessment. He stated that he is feeling "okay." He rate his depression 1/10, with 10 being the worse. He denies SI/HI's and AVH's. He denies any side effects of his medication. Mental Status Exam - Vital signs Last Vital Signs Temp 98.2 F 11/22/18 05:17 Pulse 123 H 11/22/18 08:45 Resp 24 11/22/18 05:17 BP 136/95 11/22/18 08:45 Pulse Ox 100 11/22/18 05:17 - Exam Narrative exam: MSE: Appearance: calm, cooperative Behavior: regular eye contact Speech: regular rate and low tone Mood:: "okay" Affect: congruent to mood Thought Process: circumstantial Thought Content: denies SI/HI's and AVH's Motor Activity: sitting up in bed Cognition: A/O x3 Insight: fair Judgment: fair Assessment and Plan Impression: MDD. Today the patient is calm during the assessment. Recommendation/Plan: Continue Zoloft 50 mg PO daily for depression. Discussed possible suicidality/medication induced george with the patient reference Zoloft. Psy sign off. Dispo: The patient can follow up with [facility] for outpatient psy services. Will staff with Dr Prema Mendez.
[2018-11-22] MEDS: NORVIR PO SCH (11:44)
[2018-11-22] MEDS: PREZISTA PO SCH (11:44)
[2018-11-22] MEDS: ZOLOFT PO SCH (11:45)
[2018-11-22] MEDS: PREVACID SOLUTAB FEEDTUBE SCH ×2 (11:45→20:57)
[2018-11-22] MEDS: THERAGRAN Tab PO SCH (11:45)
[2018-11-22] MEDS: MEPRON PO SCH (11:45)
[2018-11-22] MEDS: TIVICAY PO SCH (11:47)
[2018-11-22] MEDS: METAMUCIL PO SCH (11:48)
--- NOTE | 2018-11-22 12:40 | Progress Note ---
Assessment and Plan Impression * ESRD * Respiratory failure * Encephalopathy * Sepsis * cardiomyopathy--ef 35% * Anemia * Thrombocytopenia * tachycardia * HIV disease Recommendations * Patient remains oliguric. No evidence of renal recovery at this time * renal diet * HD q MWF * follow up lytes daily * He most likely has ATN * Avoid nephrotoxins * Adjust meds for GFR less than 10 * Monitor fluid status and electrolytes closely * Consultants notes appreciated * outpatient hd placement for hd * patient is still with a Vas-Cath. He will require PermCath. Discussed with v ascular surgery. Not safe to discharge patient with Vas-Cath. Once discharge arrangements have been made Subjective Date of service: 11/22/18 Principal diagnosis: anemia Interval history: resting well in bed today Objective - Exam Narrative Exam: HEENT: Oral mucosa moist no pallor or icterus Neck: Supple no JVD Chest: Clear to auscultation anteriorly CVS: Regular rate and rhythm S1 and S2 heard Abdomen: Soft nontender no suprapubic masses no organomegaly appreciable Extremity: Dry skin less than 1+ peripheral edema Musculoskeletal: No joint effusion noted in knees and ankle Neurological: Alert awake Dermatology: No petechial rashes Psychiatry: No evidence of any agitation and aggression noted - Vital Signs Vital signs: Vital Signs - 12hr 11/22/18 11/22/18 11/22/18 02:13 05:17 08:45 Temperature 98.2 F 98.2 F Pulse Rate 118 H 117 H 123 H Respiratory 20 24 Rate Blood Pressure 130/92 120/84 136/95 O2 Sat by Pulse 100 100 Oximetry - Lab 11/21/18 01:00 11/19/18 05:31 Most recent lab results Calcium 8.9 mg/dL (8.4-10.2) 11/19/18 05:31 Phosphorus 8.30 mg/dL (2.5-4.5) H 10/25/18 10:00 Magnesium 3.10 mg/dL (1.7-2.3) H 10/18/18 05:03 Urine Creatinine 30.8 mg/dL (0.1-20.0) H 10/13/18 04:43 Urine Sodium 106 mmol/L 10/13/18 04:43 Urine Total Protein 75 mg/dL (5-11.8) H 10/13/18 04:43 Medications & Allergies - Medications Allergies/Adverse Reactions: Allergies Sulfa (Sulfonamide Antibiotics) Allergy (Verified 10/10/18 16:54) Unknown Home Medications: Home Medications Medication Instructions Recorded Confirmed Last Taken Type Acetaminophen [Tylenol] 1,000 mg PO Q6HR 10/10/18 10/10/18 Unknown History Amlodipine Besylate [Norvasc] 10 mg PO QDAY 10/10/18 10/10/18 Unknown History Aspirin [Adult Aspirin] 81 mg PO DAILY 10/10/18 10/10/18 Unknown History Atorvastatin [Lipitor Tab] 80 mg PO DAILY 10/10/18 10/10/18 Unknown History Losartan [Cozaar] 100 mg PO QDAY 10/10/18 10/10/18 Unknown History Multivitamin [Multiple Vitamins] 1 each PO DAILY 10/10/18 10/10/18 Unknown History hydroCHLOROthiazide [HCTZ] 25 mg PO QDAY 10/10/18 10/10/18 Unknown History Active Medications: Generic Name Dose Route Start Last Admin Trade Name Freq PRN Reason Stop Dose Admin Acetaminophen 500 mg 10/16/18 10:02 11/17/18 00:29 Tylenol PO 500 mg Q6H PRN Administration Fever >101 Albumin Human 25 gm 11/04/18 16:14 Alburx 25% (Albumin) IV CHON PRN Hypotension Albuterol 2.5 mg 11/21/18 07:24 Proventil IH Q4HRT PRN Shortness Of Breath Lipase/Protease/Amylase 1 each 10/11/18 12:58 Pancreazkarlos Reed 10,500 Unit FEEDTUBE PRN PRN For Clogged Feeding Tube Atovaquone 1,500 mg 11/14/18 10:00 11/22/18 11:45 Mepron PO 1,500 mg QDAY RUBI Administration Darunavir 800 mg 10/30/18 18:00 11/22/18 11:44 Prezista PO 800 mg QDAY RUBI Administration Emtricitabine 200 mg 11/01/18 10:00 11/21/18 17:49 Emtriva PO 200 mg Q48HR RUBI Administration Epoetin Dany 20,000 unit 11/12/18 15:00 11/19/18 16:27 Procrit IV 20,000 unit .MWF RUBI Administration Heparin Sodium (Porcine) 5,000 unit 11/04/18 16:15 Heparin IV CHON PRN hemodialysis Heparin Sodium (Porcine) 5,000 unit 11/07/18 22:00 11/22/18 06:51 Heparin SUB-Q 5,000 unit Q8HR RUBI Administration Hydrophilic Ointment 1 applic 10/10/18 17:53 Vaseline Lip Therapy TP Q2HR PRN Dry Lips Sodium Chloride 100 mls @ 999 mls/hr 11/12/18 09:51 Nacl 0.9% IV CHON PRN Hypotension Cefepime HCl 1 gm in 100 mls @ 200 mls/hr 11/13/18 18:00 11/21/18 19:31 Maxipime/Ns 1 Gm/100 Ml IV 200 mls/hr QPM RUBI Administration Protocol Metronidazole 500 mg in 100 mls @ 100 mls/hr 11/15/18 16:00 11/22/18 06:51 Flagyl 500 Mg/100 Ml IV 100 mls/hr Q8HR RUBI Administration Protocol Vancomycin HCl 750 mg/ Sodium 265 mls @ 166.667 mls/hr 11/21/18 18:00 11/21/18 17:48 Chloride IV 166.667 mls/hr [email or web address] RUBI Administration Ipratropium Media 0.5 mg 11/20/18 22:07 Atrovent IH Q4HRT PRN Shortness Of Breath Lansoprazole 30 mg 10/15/18 10:00 11/22/18 11:45 Prevacid Solutab FEEDTUBE 30 mg BID RUBI Administration Metoprolol Tartrate 5 mg 10/18/18 14:05 11/21/18 21:32 Lopressor IV 5 mg Q6HR PRN Administration Tachyarrhythmias Metoprolol Tartrate 25 mg 11/20/18 13:31 11/22/18 08:45 Lopressor PO 25 mg Q6H RUBI Administration Multi-Ingred Cream/Lotion/Oil/Oint 1 applic 10/10/18 17:53 Artificial Tears Ophth Oint OU Q4HR PRN Dry Eye(s) Multivitamins 1 each 10/11/18 10:00 11/22/18 11:45 Theragran Tab PO 1 each DAILY RUBI Administration Nystatin 100,000 unit 11/17/18 14:00 11/22/18 08:45 Nystatin PO 11/24/18 13:59 100,000 unit TID RUBI Administration Ondansetron HCl 4 mg 11/12/18 15:05 Zofran IV Q8H PRN N/V unrelieved by Buddy Psyllium Hydrophilic Mucilloid 1 each 11/08/18 18:00 11/22/18 11:48 Metamucil PO 1 each QDAY RUBI Administration Ritonavir 100 mg 10/30/18 18:00 11/22/18 11:44 Norvir PO 100 mg QDAY RUBI Administration Sertraline HCl 50 mg 11/21/18 19:52 11/22/18 11:45 Zoloft PO 50 mg QDAY RUBI Administration Simple Syrup 15 ml 10/11/18 12:58 Simple Syrup FEEDTUBE PRN PRN Hypoglycemia Simple Syrup 30 ml 10/11/18 12:58 Simple Syrup FEEDTUBE PRN PRN Hypoglycemia Sodium Bicarbonate 325 mg 10/11/18 12:58 Sodium Bicarbonate FEEDTUBE PRN PRN For Clogged Feeding Tube Sodium Chloride 10 ml 10/10/18 22:00 11/22/18 11:48 Sodium Chloride Flush Syringe 10 Ml IV 10 ml BID RUBI Administration Sodium Chloride 10 ml 10/10/18 18:12 Sodium Chloride Flush Syringe 10 Ml IV PRN PRN LINE FLUSH Tenofovir Disoproxil Fumarate 300 mg 10/30/18 17:45 11/19/18 18:56 Viread PO 300 mg Q96H RUBI Administration
[2018-11-22] MEDS: MAXIPIME/NS 1 GM/100 ML 1 GM/100 ML BAG IV SCH (18:50)
--- NOTE | 2018-11-23 00:05 | Progress Note ---
Assessment and Plan Assessment and plan: patient is 43 YO Male with HIV, hypertension, previous stroke, Nicotine Dependence, presents to ED for evaluation. Patient was confused and lethargic and unable to provide history. He was seen and evaluated in ED and found to be in distress and unable to protect his airway and was therefore intubated, placed on ventilator in ER then admitted MR brain 10/11 1. Study somewhat degraded by motion artifact. 2 Areas of edema in the basal ganglia and thalami bilaterally, within the jamari and in the cerebral hemispheres bilaterally in the subcortical and deep white matter and in portions of the cortex. 3. Areas of encephalomalacia in the basal ganglia bilaterally with evidence of previous hemorrhage or mineral deposition. 4. Numerous small foci of acute infarct in the basal ganglia bilaterally, subinsular regions bilaterally and medial temporal lobes bilaterally and possibly in the occipital cortex bilaterally. The above findings may be secondary to an infectious or noninfectious etiology with a component of vasculopathy or vasculitis resulting in infarcts. Viral encephalopathies and lymphoma would need to be considered in this patient with history of HIV. Neuro ams acute metabolic encephalopathy improving /Acute CVA with Bilateral infarcts with edema Consulted Neurology, he was evaluated by DR. Valentine. mentation is improved, and this is likely his new baseline Dysphagia/ moderate malnutrition -MBS 10/23, recommended pureed with nectar thickened liquids, continue this diet -refrigerating engineer consulted Hematology Anemia- stable, thrombocytopenia, leukocytosis, coagulopathy; now resolved -Status post platelet (3 units) and prbc (6 units ) transfusion, the patient had only few schistocytes on smear, ADAMS13 91% activity , plt count has recovered ID HIV/AIDS, CD4 count 3, HIV viral load 320,000 acute bacterial PNA, CMV viremia toxo neg, CSF neg ,Whole blood cmv PCR was positive at 1374 abx and anti- antiviral per ID,continues to have fever on and off -he was put back on HAART, he likely has component of IRIS causing fevers and sob -most recent cxr 11/12 show no infiltrate, dw ID oral thrus, nystatin swish and spit ordered x 7 days FEN/Renal SHRUTHI- ATN, no signs of renal recovery, now ESRD, Hyperkalemia, urinary retention Severe protein calorie malnutrition sp SPC on 10/12 cont HD per nephrology, no signs of renal recovery -now afebrile, spoke to vas sx about PC placement -dietitican consult Pulm acute hypoxic resp failure on MV> 96 hours self extubated 10/16, continue supplemental oxygen prn CTA neg for PE on 11/06 CVS /Hypertensive urgency and acute systolic CHF He was treated with Cardene drip which was weaned off. Optimize medications for CHF on coreg, no mik due to high K, fluid removal by dialysis Skin Stage 2 sacral wound decub, and bilat buttock wounds left buttocks area. The wound is measured at 9.0x2.5. 25% slough noticed to the wound sacral area. The wound is measured at 3.5x3.5.80% necrotic tissue noticed to the wound right buttocks area. The wound is measured at 5.0x3.0. no evidence of infection, but wounds are necrotic, cont wound care Depression MH input appreciated, he is improving Severe debility; he was previously refusing PT and not participating, I spoke to the patient . He agrees to be more complaints of physical therapy. he is now participating with PT, contractures are improving DVT ppx- heparin sq Dispo: Needs HD and home health set up before he can be dc History Interval history: Patient continues to have weakness of his voice, Review of systems Constitutional: ,overall malaise, improved appetite CVS: No chest pain, no orthopnea, no dyspnea on exertion, no pedal edema GI: No abdominal pain, no diarrhea, no vomiting, no constipation Respiratory: sob improved, no wheezing, denies cough Hospitalist Physical - Physical exam Narrative exam: General.: Appears chronically ill, weak voice, cachectic HEENT: Moist mucous membranes, extraocular muscles intact, no lymphadenopathy Neck: supple Cardiac: S1-S2 heard Lungs: rales Abdomen: soft , nontender, nondistended, bowel sounds positive Extremities: no edema Skin: decub on bilat buttock and sacrum Neurologic: no gross focal deficits, generalized weakness Psych: calm, and cooperative, flat affect - Constitutional Vitals: Temp Pulse Resp BP Pulse Ox 98.4 F 118 H 18 124/84 99 11/22/18 17:47 11/22/18 17:47 11/22/18 17:47 11/22/18 17:47 11/22/18 17:47 General appearance: Present: no acute distress Results - Labs CBC & Chem 7: 11/21/18 01:00 11/19/18 05:31 Labs: Laboratory Last Values WBC 9.5 K/mm3 (4.5-11.0) 11/21/18 01:00 RBC 2.80 M/mm3 (3.65-5.03) L 11/21/18 01:00 Hgb 7.9 gm/dl (11.8-15.2) L 11/21/18 01:00 Hct 25.5 % (35.5-45.6) L 11/21/18 01:00 MCV 91 fl (84-94) 11/21/18 01:00 MCH 28 pg (28-32) 11/21/18 01:00 MCHC 31 % (32-34) L 11/21/18 01:00 RDW 19.6 % (13.2-15.2) H 11/21/18 01:00 Plt Count 206 K/mm3 (140-440) 11/21/18 01:00 Lymph % (Auto) Clinical Trial Associate 11/21/18 01:00 Cuming % (Auto) Clinical Trial Associate 11/21/18 01:00 Eos % (Auto) Clinical Trial Associate 11/21/18 01:00 Baso % (Auto) Clinical Trial Associate 11/21/18 01:00 Lymph # Clinical Trial Associate 11/21/18 01:00 Cuming # Clinical Trial Associate 11/21/18 01:00 Eos # Clinical Trial Associate 11/21/18 01:00 Baso # Clinical Trial Associate 11/21/18 01:00 Add Manual Diff Complete 11/21/18 01:00 Total Counted 100 11/21/18 01:00 Seg Neutrophils % Clinical Trial Associate 11/21/18 01:00 Seg Neuts % (Manual) 73.0 % (40.0-70.0) H 11/21/18 01:00 Band Neutrophils % 0 % 11/21/18 01:00 Lymphocytes % (Manual) 11.0 % (13.4-35.0) L 11/21/18 01:00 Reactive Lymphs % (Man) 0 % 11/21/18 01:00 Monocytes % (Manual) 10.0 % (0.0-7.3) H 11/21/18 01:00 Eosinophils % (Manual) 3.0 % (0.0-4.3) 11/21/18 01:00 Basophils % (Manual) 3.0 % (0.0-1.8) H 11/21/18 01:00 Metamyelocytes % 0 % 11/21/18 01:00 Myelocytes % 0 % 11/21/18 01:00 Promyelocytes % 0 % 11/21/18 01:00 Blast Cells % 0 % 11/21/18 01:00 Nucleated RBC % Not Reportable 11/21/18 01:00 Seg Neutrophils # Clinical Trial Associate 11/21/18 01:00 Seg Neutrophils # Man 6.9 K/mm3 (1.8-7.7) 11/21/18 01:00 Band Neutrophils # 0.0 K/mm3 11/21/18 01:00 Abs Lymphs (Manual) 267 cells/uL (850-3900) L 10/11/18 17:36 Lymphocytes # (Manual) 1.0 K/mm3 (1.2-5.4) L 11/21/18 01:00 Abs React Lymphs (Man) 0.0 K/mm3 11/21/18 01:00 Monocytes # (Manual) 1.0 K/mm3 (0.0-0.8) H 11/21/18 01:00 Eosinophils # (Manual) 0.3 K/mm3 (0.0-0.4) 11/21/18 01:00 Basophils # (Manual) 0.3 K/mm3 (0.0-0.1) H 11/21/18 01:00 Metamyelocytes # 0.0 K/mm3 11/21/18 01:00 Myelocytes # 0.0 K/mm3 11/21/18 01:00 Promyelocytes # 0.0 K/mm3 11/21/18 01:00 Blast Cells # 0.0 K/mm3 11/21/18 01:00 Pathologist Review 10/15/18 03:14 WBC Morphology Not Reportable 11/21/18 01:00 Hypersegmented Neuts Not Reportable 11/21/18 01:00 Hyposegmented Neuts Not Reportable 11/21/18 01:00 Hypogranular Neuts Not Reportable 11/21/18 01:00 Smudge Cells Not Reportable 11/21/18 01:00 Toxic Granulation Not Reportable 11/21/18 01:00 Toxic Vacuolation Not Reportable 11/21/18 01:00 Dohle Bodies Not Reportable 11/21/18 01:00 Pelger-Huet Anomaly Not Reportable 11/21/18 01:00 Kartik Rods Not Reportable 11/21/18 01:00 Platelet Estimate Not Reportable 11/21/18 01:00 Clumped Platelets Not Reportable 11/21/18 01:00 Plt Clumps, EDTA Not Reportable 11/21/18 01:00 Large Platelets Not Reportable 11/21/18 01:00 Giant Platelets Not Reportable 11/21/18 01:00 Platelet Satelliting Not Reportable 11/21/18 01:00 Plt Morphology Comment Not Reportable 11/21/18 01:00 RBC Morphology Normal 11/21/18 01:00 Dimorphic RBCs Not Reportable 11/21/18 01:00 Polychromasia Not Reportable 11/21/18 01:00 Hypochromasia Not Reportable 11/21/18 01:00 Poikilocytosis Not Reportable 11/21/18 01:00 Anisocytosis Not Reportable 11/21/18 01:00 Microcytosis Not Reportable 11/21/18 01:00 Macrocytosis Not Reportable 11/21/18 01:00 Spherocytes Not Reportable 11/21/18 01:00 Pappenheimer Bodies Not Reportable 11/21/18 01:00 Sickle Cells Not Reportable 11/21/18 01:00 Target Cells Not Reportable 11/21/18 01:00 Tear Drop Cells Not Reportable 11/21/18 01:00 Ovalocytes Not Reportable 11/21/18 01:00 Stomatocytes Few 11/10/18 06:54 Helmet Cells Not Reportable 11/21/18 01:00 [place] Bodies Not Reportable 11/21/18 01:00 [place] Rings Not Reportable 11/21/18 01:00 Pinole Cells Not Reportable 11/21/18 01:00 Bite Cells Not Reportable 11/21/18 01:00 Crenated Cell Not Reportable 11/21/18 01:00 Elliptocytes Not Reportable 11/21/18 01:00 Acanthocytes (Spur) Not Reportable 11/21/18 01:00 Rouleaux Not Reportable 11/21/18 01:00 Hemoglobin C Crystals Not Reportable 11/21/18 01:00 Schistocytes Not Reportable 11/21/18 01:00 Malaria parasites Not Reportable 11/21/18 01:00 Jv Bodies Not Reportable 11/21/18 01:00 Hem Pathologist Commnt No 11/21/18 01:00 PT 17.7 Sec. (12.2-14.9) H 11/06/18 13:18 INR 1.36 (0.87-1.13) H 11/06/18 13:18 APTT 30.6 Sec. (24.2-36.6) 11/06/18 13:18 Thrombin Time 16.9 Sec. (15.1-19.6) 10/10/18 15:02 Heparin Anti-Xa Level < 0.10 U.I./ml (0.3-0.7) L 11/07/18 21:31 Heparin Anti-Xa, Unfract Negative (Negative) 10/25/18 05:59 POC ABG pH 7.514 (7.35-7.45) H 11/03/18 16:12 POC ABG pCO2 32.0 (35-45) L 10/21/18 09:49 POC ABG pO2 62 (80-105) L 11/03/18 16:12 POC ABG HCO3 23.2 (22-26 mml/L) 11/03/18 16:12 POC ABG Total CO2 24 (23-27mmol/L) 11/03/18 16:12 POC ABG O2 Sat 94 11/03/18 16:12 POC ABG Base Excess 0 ((-2) - (+3)mmol/L) 11/03/18 16:12 FiO2 4 % 11/03/18 16:12 Sodium 141 mmol/L (137-145) 11/19/18 05:31 Potassium 4.6 mmol/L (3.6-5.0) 11/19/18 05:31 Chloride 98.1 mmol/L (98-107) 11/19/18 05:31 Carbon Dioxide 21 mmol/L (22-30) L 11/19/18 05:31 Anion Gap 27 mmol/L 11/19/18 05:31 BUN 62 mg/dL (9-20) H 11/19/18 05:31 Creatinine 8.5 mg/dL (0.8-1.5) H 11/19/18 05:31 Estimated GFR 8 ml/min 11/19/18 05:31 BUN/Creatinine Ratio 7 % 11/19/18 05:31 Glucose 129 mg/dL (75-100) H 11/19/18 05:31 POC Glucose 134 (70-105) H 11/20/18 19:49 Osmolality 338 Mosm/kg 10/11/18 17:35 Lactic Acid 1.80 mmol/L (0.7-2.0) 10/12/18 05:59 Uric Acid 13.4 mg/dL (3.5-7.6) H 10/11/18 17:36 Calcium 8.9 mg/dL (8.4-10.2) 11/19/18 05:31 Phosphorus 8.30 mg/dL (2.5-4.5) H 10/25/18 10:00 Magnesium 3.10 mg/dL (1.7-2.3) H 10/18/18 05:03 Iron 147 ug/dL (49-181) 10/11/18 17:36 TIBC 236 mcg/dL (250-450) L 10/11/18 17:36 Ferritin 93766.0 ng/mL (13.0-400.0) H 10/11/18 17:35 Total Bilirubin 0.30 mg/dL (0.1-1.2) 11/19/18 05:31 Direct Bilirubin 0.2 mg/dL (0-0.2) 10/16/18 04:07 Indirect Bilirubin 0.3 mg/dL 10/16/18 04:07 AST 26 units/L (5-40) 11/19/18 05:31 ALT 11 units/L (7-56) 11/19/18 05:31 Alkaline Phosphatase 74 units/L (35-129) 11/19/18 05:31 Ammonia 25.0 umol/L (25-60) 10/17/18 14:59 Lactate Dehydrogenase 925 units/L (91-180) H 10/22/18 05:51 Troponin T 0.357 ng/mL (0.00-0.029) H* 11/06/18 05:54 NT-Pro-B Natriuret Pep 64444 pg/mL (0-450) H 10/10/18 15:42 Total Protein 7.6 g/dL (6.3-8.2) 11/19/18 05:31 Albumin 2.6 g/dL (3.9-5) L 11/19/18 05:31 Albumin/Globulin Ratio 0.5 % 11/19/18 05:31 Triglycerides 306 mg/dL (2-149) H 11/05/18 11:29 Cholesterol 145 mg/dL (50-199) 11/05/18 11:29 LDL Cholesterol Direct 89 mg/dL (50-130) 11/05/18 11:29 HDL Cholesterol 25 mg/dL (40-59) L 11/05/18 11:29 Cholesterol/HDL Ratio 5.80 % 11/05/18 11:29 Serotonin Release Assay See scanned result 10/25/18 05:59 Vitamin B12 912.3 pg/mL (211-911) H 10/14/18 08:51 Folate 8.32 ng/mL (7.3-26.0) 10/14/18 08:51 PTH Intact 388.7 pg/mL (15-65) H 10/25/18 10:00 Urine Creatinine 30.8 mg/dL (0.1-20.0) H 10/13/18 04:43 Urine Sodium 106 mmol/L 10/13/18 04:43 Urine Total Protein 75 mg/dL (5-11.8) H 10/13/18 04:43 CSF Appearance Clear 10/16/18 15:00 CSF Color Colorless 10/16/18 15:00 CSF WBC 4 /mm3 (1-10) 10/16/18 15:00 CSF RBC 113 /mm3 (0-0) 10/16/18 15:00 CSF Seg Neutrophils 8.0 % (0-6) 10/16/18 15:00 CSF Lymphocytes % 76.0 % (40-80) 10/16/18 15:00 CSF Reactive Lymphs 2.0 % 10/16/18 15:00 CSF Monocytes % 14.0 % (15-45) 10/16/18 15:00 CSF Eosinophils % 0 % 10/16/18 15:00 CSF Basophils 0 % 10/16/18 15:00 CSF Pathologist Review C 10/16/18 15:00 CSF Glucose 73 mg/dL 10/16/18 15:00 CSF Total Protein 55 mg/dL 10/16/18 15:00 CSF VDRL Nonreactive (Nonreactive) 10/16/18 15:00 Random Vancomycin 21.1 ug/mL (0-40.0) 11/20/18 06:15 Immunofix Electrophor see below 10/11/18 17:36 RENO Screen Negative (Negative) 10/21/18 15:07 Proteinase 3 (PR3) Ab <1.0 AI (<1.0) 10/21/18 15:07 Myeloperoxidase Ab <1.0 AI (<1.0) 10/21/18 15:07 Heparin-induced Plt Ab Negative (Negative) 10/25/18 05:59 UF Heparin High Dose 0 % Release 10/25/18 05:59 VJ UFH Low Dose 0.1 0 % Release 10/25/18 05:59 VJ UFH Low Dose 0.5 14 % Release 10/25/18 05:59 Lymph Enumerat CD4/CD8 0.01 (0.86-5.00) L 10/11/18 17:36 % CD3 Cells 85 % (57-85) 10/11/18 17:36 Absolute CD3 Count 226 cells/uL (840-3060) L 10/11/18 17:36 % CD4 Cells 1 % (30-61) L 10/11/18 17:36 Absolute CD4 Count 3 cells/uL (490-1740) L 10/11/18 17:36 % CD8 Cells 82 % (12-42) H 10/11/18 17:36 Absolute CD8 Count 228 cells/uL (180-1170) 10/11/18 17:36 % CD19 Cells 6 % (6-29) 10/11/18 17:36 Absolute CD19 Count 16 cells/uL (110-660) L 10/11/18 17:36 RPR Titer 1:32 10/11/18 17:37 RPR Reactive (Nonreactive) 10/11/18 17:37 T.pallidum Ab (FTA-ABS) Reactive (Nonreactive) H 10/12/18 Unknown CMV DNA PCR log picture copyist/mL See scanned result 10/24/18 17:47 Hepatitis A IgM Ab Non-reactive (NonReactive) 11/21/18 09:58 Hep Bs Antigen Non-reactive (Negative) 11/21/18 09:58 Hep B Core IgM Ab Non-reactive (NonReactive) 11/21/18 09:58 Hepatitis C Antibody Non-reactive (NonReactive) 11/21/18 09:58 HIV-1 RNA PCR copies/ml [id number] Copies/mL H 10/11/18 17:36 HIV-1 RNA (PCR) log 5.51 Log cps/mL H 10/11/18 17:36 HIV-1 Genotyping See scanned results 10/29/18 19:48 Toxoplasma IgG Ab <7.20 IU/mL (<7.20) 10/13/18 07:54 Miscellaneous Test Flexitest 1 10/31/18 06:43 Blood Type A POSITIVE 11/08/18 11:28 Antibody Screen Negative 11/08/18 11:28 Crossmatch See Detail 11/08/18 11:28 Active Medications - Current Medications Current Medications: Generic Name Dose Route Start Last Admin Trade Name Freq PRN Reason Stop Dose Admin Acetaminophen 500 mg 10/16/18 10:02 11/17/18 00:29 Tylenol PO 500 mg Q6H PRN Administration Fever >101 Albumin Human 25 gm 11/04/18 16:14 Alburx 25% (Albumin) IV CHON PRN Hypotension Albuterol 2.5 mg 11/21/18 07:24 Proventil IH Q4HRT PRN Shortness Of Breath Lipase/Protease/Amylase 1 each 10/11/18 12:[address] 10,500 Unit FEEDTUBE PRN PRN For Clogged Feeding Tube Atovaquone 1,500 mg 11/14/18 10:00 11/22/18 11:45 Mepron PO 1,500 mg QDAY RUBI Administration Darunavir 800 mg 10/30/18 18:00 11/22/18 11:44 Prezista PO 800 mg QDAY RUBI Administration Emtricitabine 200 mg 11/01/18 10:00 11/21/18 17:49 Emtriva PO 200 mg Q48HR RUBI Administration Epoetin Dany 20,000 unit 11/12/18 15:00 11/19/18 16:27 Procrit IV 20,000 unit .MWF RUBI Administration Heparin Sodium (Porcine) 5,000 unit 11/04/18 16:15 Heparin IV CHON PRN hemodialysis Heparin Sodium (Porcine) 5,000 unit 11/07/18 22:00 11/22/18 20:57 Heparin SUB-Q 5,000 unit Q8HR RUBI Administration Hydrophilic Ointment 1 applic 10/10/18 17:53 Vaseline Lip Therapy TP Q2HR PRN Dry Lips Sodium Chloride 100 mls @ 999 mls/hr 11/12/18 09:51 Nacl 0.9% IV CHON PRN Hypotension Cefepime HCl 1 gm in 100 mls @ 200 mls/hr 11/13/18 18:00 11/22/18 18:50 Maxipime/Ns 1 Gm/100 Ml IV 200 mls/hr QPM RUBI Administration Protocol Metronidazole 500 mg in 100 mls @ 100 mls/hr 11/15/18 16:00 11/22/18 20:56 Flagyl 500 Mg/100 Ml IV 100 mls/hr Q8HR RUBI Administration Protocol Vancomycin HCl 750 mg/ Sodium 265 mls @ 166.667 mls/hr 11/21/18 18:00 11/21/18 17:48 Chloride IV 166.667 mls/hr [id number] RUBI Administration Ipratropium [place] 0.5 mg 11/20/18 22:07 Atrovent IH Q4HRT PRN Shortness Of Breath Lansoprazole 30 mg 10/15/18 10:00 11/22/18 20:57 Prevacid Solutab FEEDTUBE 30 mg BID RUBI Administration Metoprolol Tartrate 5 mg 10/18/18 14:05 11/21/18 21:32 Lopressor IV 5 mg Q6HR PRN Administration Tachyarrhythmias Metoprolol Tartrate 25 mg 11/20/18 13:31 11/22/18 18:30 Lopressor PO 25 mg Q6H RUBI Administration Multi-Ingred Cream/Lotion/Oil/Oint 1 applic 10/10/18 17:53 Artificial Tears Ophth Oint OU Q4HR PRN Dry Eye(s) Multivitamins 1 each 10/11/18 10:00 11/22/18 11:45 Theragran Tab PO 1 each DAILY RUBI Administration Nystatin 100,000 unit 11/17/18 14:00 11/22/18 20:56 Nystatin PO 11/24/18 13:59 100,000 unit TID RUBI Administration Ondansetron HCl 4 mg 11/12/18 15:05 Zofran IV Q8H PRN N/V unrelieved by Buddy Faye Hydrophilic Mucilloid 1 each 11/08/18 18:00 11/22/18 11:48 Metamucil PO 1 each QDAY RUBI Administration Ritonavir 100 mg 10/30/18 18:00 11/22/18 11:44 Norvir PO 100 mg QDAY RUBI Administration Sertraline HCl 50 mg 11/21/18 19:52 11/22/18 11:45 Zoloft PO 50 mg QDAY RUBI Administration Simple Syrup 15 ml 10/11/18 12:58 Simple Syrup FEEDTUBE PRN PRN Hypoglycemia Simple Syrup 30 ml 10/11/18 12:58 Simple Syrup FEEDTUBE PRN PRN Hypoglycemia Sodium Bicarbonate 325 mg 10/11/18 12:58 Sodium Bicarbonate FEEDTUBE PRN PRN For Clogged Feeding Tube Sodium Chloride 10 ml 10/10/18 22:00 11/22/18 20:58 Sodium Chloride Flush Syringe 10 Ml IV 10 ml BID RUBI Administration Sodium Chloride 10 ml 10/10/18 18:12 Sodium Chloride Flush Syringe 10 Ml IV PRN PRN LINE FLUSH Tenofovir Disoproxil Fumarate 300 mg 10/30/18 17:45 11/19/18 18:56 Viread PO 300 mg Q96H RUBI Administration Nutrition/Malnutrition Assess - Dietary Evaluation Nutrition/Malnutrition Findings: Nutrition Notes Start: 10/11/18 11:14 Freq: Status: Active Protocol: Document 11/22/18 10:24 LM (Rec: 11/22/18 10:34 LM [id number]) Co-Sign 11/22/18 10:24 LP Nutrition Notes Initial or Follow up Reassessment Current Diagnosis Acute Kidney Injury,CKD(stage I-IV),Hypertension,Heart Failure,Stroke Other Pertinent Diagnosis Depression,Dysphagia,on HD, Acute encephalopathy,HIV/AIDS, Syphilis Current Diet NPO Labs/Tests Reviewed Pertinent Medications Reviewed Height 5 ft 9 in Weight 47.9 kg [place] Body Weight (kg) 72.72 BMI 15.5 Subjective/Other Information Pt did not receive breakfast this morning due to being made NPO yesterday for procedure. Procedure did not happen and is scheduled for tomorrow. Pureed diet ordered for dinner tonight. Pt stated he feels hungry. Percent of energy/protein needs met: 0%/0% Burn Absent Trauma Absent #2 Nutrition Diagnosis Malnutrition Diagnosis Progress(for reassessment Continues documentation) #1 Nutrition Diagnosis Inadequate oral intake Diagnosis Progress(for reassessment Continues documentation) Is patient on ventilator? No Is Patient Ambulatory and/or Out of Bed No REE-([place]-confined to bed) 1646.712 Kcal/Kg value to use for calculation 40 Approximate Energy Requirements Using 1916 kcal/Kg Calculation Used for Recommendations Kcal/kg Additional Notes Pro needs 1.2-1.5g/k-72g/ day Fluid needs 1ml/kcal Nutrition Intervention Change Diet Order: Pureed diet Add Supplement/Snack (indicate name/kcal Nepro 1 daily /protein ) Provides kCal: 425 Provides Protein (gm) 19 Goal #1 Meet at least 75% of calorie and protein needs via PO and ONS intakes Anticipated Discharge Needs: Pureed, Renal diet Follow-Up By: 11/26/18 Additional Comments F/U fro PO and ONS intakes, add ONS back to diet
[2018-11-23] MEDS: LOPRESSOR PO SCH ×4 (02:14→22:36)
[2018-11-23] MEDS: FLAGYL 500 MG/100 ML 500 MG/100 ML BAG IV SCH ×2 (05:21→09:32)
[2018-11-23] MEDS: HEPARIN SUB-Q SCH ×4 (05:22→22:13)
[2018-11-23] MEDS ORDERED: VERSED ONE (08:15)
[2018-11-23] MEDS ORDERED: SUBLIMAZE ONE (08:16)
[2018-11-23] MEDS ORDERED: HEPARIN/NS 5000 UNIT/500ML(CATH LAB) 500 ML IR ONE (08:16)
[2018-11-23] MEDS ORDERED: NACL 0.9% 250ML 250 ML ONE (08:17)
[2018-11-23] MEDS ORDERED: ANCEF/STERILE WATER 2 GM/20 ML 2 GM/20 ML SYRINGE IV ONE (08:17)
[2018-11-23] MEDS ORDERED: XYLOCAINE 2% INFILTRATI ONE (08:37)
[2018-11-23] MEDS: HEPARIN 10,000 UNITS/10 ML ONE ×2 (08:44→08:47)
--- NOTE | 2018-11-23 08:58 | Operative Report ---
Operative Report Operative Report: Date of procedure: 11/23/2018 Pre-operative diagnosis: ESRD Post-operative diagnosis: same Procedure name(s): Placement of right internal jugular vein glidepath 23 cm catheter via wire access through the existing right internal jugular Vas-Cath Surgeon: Shane Paez MD, FACS Reheat Furnace Operator: none Anesthesia: local with sedation; Sedation start: 837 Sedation end: 08 Total sedation time: 18 minutes or 2 sedation units EBL: minimal Operative indication: Patient is a 43 yo and who requires long-term hemodialysis access. Findings: Good flow from both ports. Catheter located at the cavoatrial junction. Procedure: The patient was placed on the table in the supine position. The area over the r ight neck and chest was prepped with ChloraPrep solution and draped in usual sterile fashion. 2% lidocaine was used for local anesthesia. A tunnel was made over the anterior chest using the tunneling device in the kit. The catheter was then tunneled between the 2 incisions. The existing Vas-Cath was removed over an Amplatz stiff wire. Using a series of dilators, the track into the jugular vein was dilated. The introducer sheath was then placed. The catheter was placed through the introducer sheath which was then removed. The catheter tip was placed at the cavoatrial junction. The catheters were aspirated with excellent flow from both ports. Both ports flushed easily. They were then filled to their stated volume with 1000 unit per milliliter heparin. Closure at the insertion site was done with 4-0 subcuticular PDS. The catheter was sewn to the skin with 2-0 Proline. Sterile dressings were applied. The patient tolerated the procedure well.
--- NOTE | 2018-11-23 09:27 | Progress Note ---
Assessment and Plan Assessment and plan: patient is 43 YO Male with HIV, hypertension, previous stroke, Nicotine Dependence, presents to ED for evaluation. Patient was confused and lethargic and unable to provide history. He was seen and evaluated in ED and found to be in distress and unable to protect his airway and was therefore intubated, placed on ventilator in ER then admitted MR brain 10/11 1. Study somewhat degraded by motion artifact. 2 Areas of edema in the basal ganglia and thalami bilaterally, within the jamari and in the cerebral hemispheres bilaterally in the subcortical and deep white matter and in portions of the cortex. 3. Areas of encephalomalacia in the basal ganglia bilaterally with evidence of previous hemorrhage or mineral deposition. 4. Numerous small foci of acute infarct in the basal ganglia bilaterally, subinsular regions bilaterally and medial temporal lobes bilaterally and possibly in the occipital cortex bilaterally. The above findings may be secondary to an infectious or noninfectious etiology with a component of vasculopathy or vasculitis resulting in infarcts. Viral encephalopathies and lymphoma would need to be considered in this patient with history of HIV. Neuro ams acute metabolic encephalopathy improving /Acute CVA with Bilateral infarcts with edema Consulted Neurology, he was evaluated by DR. Valentine. mentation is improved, and this is likely his new baseline Dysphagia/ moderate malnutrition -MBS 10/23, recommended pureed with nectar thickened liquids, continue this diet -spot sprayer consulted Hematology Anemia- stable, thrombocytopenia, leukocytosis, coagulopathy; now resolved -Status post platelet (3 units) and prbc (6 units ) transfusion, the patient had only few schistocytes on smear, ADAMS13 91% activity , plt count has recovered ID HIV/AIDS, CD4 count 3, HIV viral load 320,000 acute bacterial PNA, CMV viremia toxo neg, CSF neg ,Whole blood cmv PCR was positive at 1374 abx and anti- antiviral per ID,continues to have fever on and off -he was put back on HAART, he likely has component of IRIS causing fevers and sob -most recent cxr 11/12 show no infiltrate, dw ID oral thrus, nystatin swish and spit ordered x 7 days FEN/Renal SHRUTHI- ATN, no signs of renal recovery, now ESRD, Hyperkalemia, urinary retention Severe protein calorie malnutrition sp SPC on 10/12 cont HD per nephrology, no signs of renal recovery -now afebrile, spoke to vas sx about PC placement -dietitican consult Pulm acute hypoxic resp failure on MV> 96 hours self extubated 10/16, continue supplemental oxygen prn CTA neg for PE on 11/06 CVS /Hypertensive urgency and acute systolic CHF He was treated with Cardene drip which was weaned off. Optimize medications for CHF on coreg, no mik due to high K, fluid removal by dialysis Skin Stage 2 sacral wound decub, and bilat buttock wounds left buttocks area. The wound is measured at 9.0x2.5. 25% slough noticed to the wound sacral area. The wound is measured at 3.5x3.5.80% necrotic tissue noticed to the wound right buttocks area. The wound is measured at 5.0x3.0. no evidence of infection, but wounds are necrotic, cont wound care Depression MH input appreciated, he is improving Severe debility; he was previously refusing PT and not participating, I spoke to the patient . He agrees to be more complaints of physical therapy. he is now participating with PT, contractures are improving DVT ppx- heparin sq Dispo: Needs HD and home health set up before he can be dc History Interval history: Patient continues to have weakness of his voice, Review of systems Constitutional: ,overall malaise, improved appetite CVS: No chest pain, no orthopnea, no dyspnea on exertion, no pedal edema GI: No abdominal pain, no diarrhea, no vomiting, no constipation Respiratory: sob improved, no wheezing, denies cough Hospitalist Physical - Physical exam Narrative exam: General.: Appears chronically ill, weak voice, cachectic HEENT: Moist mucous membranes, extraocular muscles intact, no lymphadenopathy Neck: supple Cardiac: S1-S2 heard Lungs: rales Abdomen: soft , nontender, nondistended, bowel sounds positive Extremities: no edema Skin: decub on bilat buttock and sacrum Neurologic: no gross focal deficits, generalized weakness Psych: calm, and cooperative, flat affect - Constitutional Vitals: Temp Pulse Resp BP Pulse Ox 99.0 F 119 H 16 125/84 100 11/23/18 05:53 11/23/18 05:53 11/23/18 05:53 11/23/18 05:53 11/23/18 05:53 General appearance: Present: no acute distress Results - Labs CBC & Chem 7: 11/21/18 01:00 11/19/18 05:31 Labs: Laboratory Last Values WBC 9.5 K/mm3 (4.5-11.0) 11/21/18 01:00 RBC 2.80 M/mm3 (3.65-5.03) L 11/21/18 01:00 Hgb 7.9 gm/dl (11.8-15.2) L 11/21/18 01:00 Hct 25.5 % (35.5-45.6) L 11/21/18 01:00 MCV 91 fl (84-94) 11/21/18 01:00 MCH 28 pg (28-32) 11/21/18 01:00 MCHC 31 % (32-34) L 11/21/18 01:00 RDW 19.6 % (13.2-15.2) H 11/21/18 01:00 Plt Count 206 K/mm3 (140-440) 11/21/18 01:00 Lymph % (Auto) [place] 11/21/18 01:00 [place] % (Auto) [place] 11/21/18 01:00 Eos % (Auto) [place] 11/21/18 01:00 Baso % (Auto) [place] 11/21/18 01:00 Lymph # [place] 11/21/18 01:00 [place] # [place] 11/21/18 01:00 Eos # [place] 11/21/18 01:00 Baso # [place] 11/21/18 01:00 Add Manual Diff Complete 11/21/18 01:00 Total Counted 100 11/21/18 01:00 Seg Neutrophils % [place] 11/21/18 01:00 Seg Neuts % (Manual) 73.0 % (40.0-70.0) H 11/21/18 01:00 Band Neutrophils % 0 % 11/21/18 01:00 Lymphocytes % (Manual) 11.0 % (13.4-35.0) L 11/21/18 01:00 Reactive Lymphs % (Man) 0 % 11/21/18 01:00 Monocytes % (Manual) 10.0 % (0.0-7.3) H 11/21/18 01:00 Eosinophils % (Manual) 3.0 % (0.0-4.3) 11/21/18 01:00 Basophils % (Manual) 3.0 % (0.0-1.8) H 11/21/18 01:00 Metamyelocytes % 0 % 11/21/18 01:00 Myelocytes % 0 % 11/21/18 01:00 Promyelocytes % 0 % 11/21/18 01:00 Blast Cells % 0 % 11/21/18 01:00 Nucleated RBC % Not Reportable 11/21/18 01:00 Seg Neutrophils # [place] 11/21/18 01:00 Seg Neutrophils # Man 6.9 K/mm3 (1.8-7.7) 11/21/18 01:00 Band Neutrophils # 0.0 K/mm3 11/21/18 01:00 Abs Lymphs (Manual) 267 cells/uL (850-3900) L 10/11/18 17:36 Lymphocytes # (Manual) 1.0 K/mm3 (1.2-5.4) L 11/21/18 01:00 Abs React Lymphs (Man) 0.0 K/mm3 11/21/18 01:00 Monocytes # (Manual) 1.0 K/mm3 (0.0-0.8) H 11/21/18 01:00 Eosinophils # (Manual) 0.3 K/mm3 (0.0-0.4) 11/21/18 01:00 Basophils # (Manual) 0.3 K/mm3 (0.0-0.1) H 11/21/18 01:00 Metamyelocytes # 0.0 K/mm3 11/21/18 01:00 Myelocytes # 0.0 K/mm3 11/21/18 01:00 Promyelocytes # 0.0 K/mm3 11/21/18 01:00 Blast Cells # 0.0 K/mm3 11/21/18 01:00 Pathologist Review 10/15/18 03:14 WBC Morphology Not Reportable 11/21/18 01:00 Hypersegmented Neuts Not Reportable 11/21/18 01:00 Hyposegmented Neuts Not Reportable 11/21/18 01:00 Hypogranular Neuts Not Reportable 11/21/18 01:00 Smudge Cells Not Reportable 11/21/18 01:00 Toxic Granulation Not Reportable 11/21/18 01:00 Toxic Vacuolation Not Reportable 11/21/18 01:00 Dohle Bodies Not Reportable 11/21/18 01:00 Pelger-Huet Anomaly Not Reportable 11/21/18 01:00 Kartik Rods Not Reportable 11/21/18 01:00 Platelet Estimate Not Reportable 11/21/18 01:00 Clumped Platelets Not Reportable 11/21/18 01:00 Plt Clumps, EDTA Not Reportable 11/21/18 01:00 Large Platelets Not Reportable 11/21/18 01:00 Giant Platelets Not Reportable 11/21/18 01:00 Platelet Satelliting Not Reportable 11/21/18 01:00 Plt Morphology Comment Not Reportable 11/21/18 01:00 RBC Morphology Normal 11/21/18 01:00 Dimorphic RBCs Not Reportable 11/21/18 01:00 Polychromasia Not Reportable 11/21/18 01:00 Hypochromasia Not Reportable 11/21/18 01:00 Poikilocytosis Not Reportable 11/21/18 01:00 Anisocytosis Not Reportable 11/21/18 01:00 Microcytosis Not Reportable 11/21/18 01:00 Macrocytosis Not Reportable 11/21/18 01:00 Spherocytes Not Reportable 11/21/18 01:00 Pappenheimer Bodies Not Reportable 11/21/18 01:00 Sickle Cells Not Reportable 11/21/18 01:00 Target Cells Not Reportable 11/21/18 01:00 Tear Drop Cells Not Reportable 11/21/18 01:00 Ovalocytes Not Reportable 11/21/18 01:00 Stomatocytes Few 11/10/18 06:54 Helmet Cells Not Reportable 11/21/18 01:00 [place] Bodies Not Reportable 11/21/18 01:00 [place] Rings Not Reportable 11/21/18 01:00 Jani Cells Not Reportable 11/21/18 01:00 Bite Cells Not Reportable 11/21/18 01:00 Crenated Cell Not Reportable 11/21/18 01:00 Elliptocytes Not Reportable 11/21/18 01:00 Acanthocytes (Spur) Not Reportable 11/21/18 01:00 Rouleaux Not Reportable 11/21/18 01:00 Hemoglobin C Crystals Not Reportable 11/21/18 01:00 Schistocytes Not Reportable 11/21/18 01:00 Malaria parasites Not Reportable 11/21/18 01:00 Jv Bodies Not Reportable 11/21/18 01:00 Hem Pathologist Commnt No 11/21/18 01:00 PT 17.7 Sec. (12.2-14.9) H 11/06/18 13:18 INR 1.36 (0.87-1.13) H 11/06/18 13:18 APTT 30.6 Sec. (24.2-36.6) 11/06/18 13:18 Thrombin Time 16.9 Sec. (15.1-19.6) 10/10/18 15:02 Heparin Anti-Xa Level < 0.10 U.I./ml (0.3-0.7) L 11/07/18 21:31 Heparin Anti-Xa, Unfract Negative (Negative) 10/25/18 05:59 POC ABG pH 7.514 (7.35-7.45) H 11/03/18 16:12 POC ABG pCO2 32.0 (35-45) L 10/21/18 09:49 POC ABG pO2 62 (80-105) L 11/03/18 16:12 POC ABG HCO3 23.2 (22-26 mml/L) 11/03/18 16:12 POC ABG Total CO2 24 (23-27mmol/L) 11/03/18 16:12 POC ABG O2 Sat 94 11/03/18 16:12 POC ABG Base Excess 0 ((-2) - (+3)mmol/L) 11/03/18 16:12 FiO2 4 % 11/03/18 16:12 Sodium 141 mmol/L (137-145) 11/19/18 05:31 Potassium 4.6 mmol/L (3.6-5.0) 11/19/18 05:31 Chloride 98.1 mmol/L (98-107) 11/19/18 05:31 Carbon Dioxide 21 mmol/L (22-30) L 11/19/18 05:31 Anion Gap 27 mmol/L 11/19/18 05:31 BUN 62 mg/dL (9-20) H 11/19/18 05:31 Creatinine 8.5 mg/dL (0.8-1.5) H 11/19/18 05:31 Estimated GFR 8 ml/min 11/19/18 05:31 BUN/Creatinine Ratio 7 % 11/19/18 05:31 Glucose 129 mg/dL (75-100) H 11/19/18 05:31 POC Glucose 126 (70-105) H 11/23/18 00:08 Osmolality 338 Mosm/kg 10/11/18 17:35 Lactic Acid 1.80 mmol/L (0.7-2.0) 10/12/18 05:59 Uric Acid 13.4 mg/dL (3.5-7.6) H 10/11/18 17:36 Calcium 8.9 mg/dL (8.4-10.2) 11/19/18 05:31 Phosphorus 8.30 mg/dL (2.5-4.5) H 10/25/18 10:00 Magnesium 3.10 mg/dL (1.7-2.3) H 10/18/18 05:03 Iron 147 ug/dL (49-181) 10/11/18 17:36 TIBC 236 mcg/dL (250-450) L 10/11/18 17:36 Ferritin 19173.0 ng/mL (13.0-400.0) H 10/11/18 17:35 Total Bilirubin 0.30 mg/dL (0.1-1.2) 11/19/18 05:31 Direct Bilirubin 0.2 mg/dL (0-0.2) 10/16/18 04:07 Indirect Bilirubin 0.3 mg/dL 10/16/18 04:07 AST 26 units/L (5-40) 11/19/18 05:31 ALT 11 units/L (7-56) 11/19/18 05:31 Alkaline Phosphatase 74 units/L (35-129) 11/19/18 05:31 Ammonia 25.0 umol/L (25-60) 10/17/18 14:59 Lactate Dehydrogenase 925 units/L (91-180) H 10/22/18 05:51 Troponin T 0.357 ng/mL (0.00-0.029) H* 11/06/18 05:54 NT-Pro-B Natriuret Pep 25073 pg/mL (0-450) H 10/10/18 15:42 Total Protein 7.6 g/dL (6.3-8.2) 11/19/18 05:31 Albumin 2.6 g/dL (3.9-5) L 11/19/18 05:31 Albumin/Globulin Ratio 0.5 % 11/19/18 05:31 Triglycerides 306 mg/dL (2-149) H 11/05/18 11:29 Cholesterol 145 mg/dL (50-199) 11/05/18 11:29 LDL Cholesterol Direct 89 mg/dL (50-130) 11/05/18 11:29 HDL Cholesterol 25 mg/dL (40-59) L 11/05/18 11:29 Cholesterol/HDL Ratio 5.80 % 11/05/18 11:29 Serotonin Release Assay See scanned result 10/25/18 05:59 Vitamin B12 912.3 pg/mL (211-911) H 10/14/18 08:51 Folate 8.32 ng/mL (7.3-26.0) 10/14/18 08:51 PTH Intact 388.7 pg/mL (15-65) H 10/25/18 10:00 Urine Creatinine 30.8 mg/dL (0.1-20.0) H 10/13/18 04:43 Urine Sodium 106 mmol/L 10/13/18 04:43 Urine Total Protein 75 mg/dL (5-11.8) H 10/13/18 04:43 CSF Appearance Clear 10/16/18 15:00 CSF Color Colorless 10/16/18 15:00 CSF WBC 4 /mm3 (1-10) 10/16/18 15:00 CSF RBC 113 /mm3 (0-0) 10/16/18 15:00 CSF Seg Neutrophils 8.0 % (0-6) 10/16/18 15:00 CSF Lymphocytes % 76.0 % (40-80) 10/16/18 15:00 CSF Reactive Lymphs 2.0 % 10/16/18 15:00 CSF Monocytes % 14.0 % (15-45) 10/16/18 15:00 CSF Eosinophils % 0 % 10/16/18 15:00 CSF Basophils 0 % 10/16/18 15:00 CSF Pathologist Review C 10/16/18 15:00 CSF Glucose 73 mg/dL 10/16/18 15:00 CSF Total Protein 55 mg/dL 10/16/18 15:00 CSF VDRL Nonreactive (Nonreactive) 10/16/18 15:00 Random Vancomycin 21.1 ug/mL (0-40.0) 11/20/18 06:15 Immunofix Electrophor see below 10/11/18 17:36 RENO Screen Negative (Negative) 10/21/18 15:07 Proteinase 3 (PR3) Ab <1.0 AI (<1.0) 10/21/18 15:07 Myeloperoxidase Ab <1.0 AI (<1.0) 10/21/18 15:07 Heparin-induced Plt Ab Negative (Negative) 10/25/18 05:59 UF Heparin High Dose 0 % Release 10/25/18 05:59 VJ UFH Low Dose 0.1 0 % Release 10/25/18 05:59 VJ UFH Low Dose 0.5 14 % Release 10/25/18 05:59 Lymph Enumerat CD4/CD8 0.01 (0.86-5.00) L 10/11/18 17:36 % CD3 Cells 85 % (57-85) 10/11/18 17:36 Absolute CD3 Count 226 cells/uL (840-3060) L 10/11/18 17:36 % CD4 Cells 1 % (30-61) L 10/11/18 17:36 Absolute CD4 Count 3 cells/uL (490-1740) L 10/11/18 17:36 % CD8 Cells 82 % (12-42) H 10/11/18 17:36 Absolute CD8 Count 228 cells/uL (180-1170) 10/11/18 17:36 % CD19 Cells 6 % (6-29) 10/11/18 17:36 Absolute CD19 Count 16 cells/uL (110-660) L 10/11/18 17:36 RPR Titer 1:32 10/11/18 17:37 RPR Reactive (Nonreactive) 10/11/18 17:37 T.pallidum Ab (FTA-ABS) Reactive (Nonreactive) H 10/12/18 Unknown CMV DNA PCR log copy holder/mL See scanned result 10/24/18 17:47 Hepatitis A IgM Ab Non-reactive (NonReactive) 11/21/18 09:58 Hep Bs Antigen Non-reactive (Negative) 11/21/18 09:58 Hep B Core IgM Ab Non-reactive (NonReactive) 11/21/18 09:58 Hepatitis C Antibody Non-reactive (NonReactive) 11/21/18 09:58 HIV-1 RNA PCR copies/ml 141174 Copies/mL H 10/11/18 17:36 HIV-1 RNA (PCR) log 5.51 Log cps/mL H 10/11/18 17:36 HIV-1 Genotyping See scanned results 10/29/18 19:48 Toxoplasma IgG Ab <7.20 IU/mL (<7.20) 10/13/18 07:54 Miscellaneous Test Flexitest 1 10/31/18 06:43 Blood Type A POSITIVE 11/08/18 11:28 Antibody Screen Negative 11/08/18 11:28 Crossmatch See Detail 11/08/18 11:28 Active Medications - Current Medications Current Medications: Generic Name Dose Route Start Last Admin Trade Name Freq PRN Reason Stop Dose Admin Acetaminophen 500 mg 10/16/18 10:02 11/17/18 00:29 Tylenol PO 500 mg Q6H PRN Administration Fever >101 Albumin Human 25 gm 11/04/18 16:14 Alburx 25% (Albumin) IV CHON PRN Hypotension Albuterol 2.5 mg 11/21/18 07:24 Proventil IH Q4HRT PRN Shortness Of Breath Lipase/Protease/Amylase 1 each 10/11/18 12:[address] 10,500 Unit FEEDTUBE PRN PRN For Clogged Feeding Tube Atovaquone 1,500 mg 11/14/18 10:00 11/22/18 11:45 Mepron PO 1,500 mg QDAY RUBI Administration Darunavir 800 mg 10/30/18 18:00 11/22/18 11:44 Prezista PO 800 mg QDAY RUBI Administration Emtricitabine 200 mg 11/01/18 10:00 11/21/18 17:49 Emtriva PO 200 mg Q48HR RUBI Administration Epoetin Dany 20,000 unit 11/12/18 15:00 11/19/18 16:27 Procrit IV 20,000 unit .MWF RUBI Administration Heparin Sodium (Porcine) 5,000 unit 11/04/18 16:15 Heparin IV CHON PRN hemodialysis Heparin Sodium (Porcine) 5,000 unit 11/07/18 22:00 11/23/18 05:22 Heparin SUB-Q 5,000 unit Q8HR RUBI Administration Hydrophilic Ointment 1 applic 10/10/18 17:53 Vaseline Lip Therapy TP Q2HR PRN Dry Lips Sodium Chloride 100 mls @ 999 mls/hr 11/12/18 09:51 Nacl 0.9% IV CHON PRN Hypotension Cefepime HCl 1 gm in 100 mls @ 200 mls/hr 11/13/18 18:00 11/22/18 18:50 Maxipime/Ns 1 Gm/100 Ml IV 200 mls/hr QPM RUBI Administration Protocol Metronidazole 500 mg in 100 mls @ 100 mls/hr 11/15/18 16:00 11/23/18 05:21 Flagyl 500 Mg/100 Ml IV 100 mls/hr Q8HR RUBI Administration Protocol Vancomycin HCl 750 mg/ Sodium 265 mls @ 166.667 mls/hr 11/21/18 18:00 11/21/18 17:48 Chloride IV 166.667 mls/hr [email or web address] RUBI Administration Ipratropium Sealy 0.5 mg 11/20/18 22:07 Atrovent IH Q4HRT PRN Shortness Of Breath Lansoprazole 30 mg 10/15/18 10:00 11/22/18 20:57 Prevacid Solutab FEEDTUBE 30 mg BID RUBI Administration Metoprolol Tartrate 5 mg 10/18/18 14:05 11/21/18 21:32 Lopressor IV 5 mg Q6HR PRN Administration Tachyarrhythmias Metoprolol Tartrate 25 mg 11/20/18 13:31 11/23/18 02:14 Lopressor PO Not Given Q6H [facility] Multi-Ingred Cream/Lotion/Oil/Oint 1 applic 10/10/18 17:53 Artificial Tears Ophth Oint OU Q4HR PRN Dry Eye(s) Multivitamins 1 each 10/11/18 10:00 11/22/18 11:45 Theragran Tab PO 1 each DAILY RUBI Administration Nystatin 100,000 unit 11/17/18 14:00 11/22/18 20:56 Nystatin PO 11/24/18 13:59 100,000 unit TID RUBI Administration Ondansetron HCl 4 mg 11/12/18 15:05 Zofran IV Q8H PRN N/V unrelieved by Buddy Faye Hydrophilic Mucilloid 1 each 11/08/18 18:00 11/22/18 11:48 Metamucil PO 1 each QDAY RUBI Administration Ritonavir 100 mg 10/30/18 18:00 11/22/18 11:44 Norvir PO 100 mg QDAY RUBI Administration Sertraline HCl 50 mg 11/21/18 19:52 11/22/18 11:45 Zoloft PO 50 mg QDAY RUBI Administration Simple Syrup 15 ml 10/11/18 12:58 Simple Syrup FEEDTUBE PRN PRN Hypoglycemia Simple Syrup 30 ml 10/11/18 12:58 Simple Syrup FEEDTUBE PRN PRN Hypoglycemia Sodium Bicarbonate 325 mg 10/11/18 12:58 Sodium Bicarbonate FEEDTUBE PRN PRN For Clogged Feeding Tube Sodium Chloride 10 ml 10/10/18 22:00 11/22/18 20:58 Sodium Chloride Flush Syringe 10 Ml IV 10 ml BID RUBI Administration Sodium Chloride 10 ml 10/10/18 18:12 Sodium Chloride Flush Syringe 10 Ml IV PRN PRN LINE FLUSH Tenofovir Disoproxil Fumarate 300 mg 10/30/18 17:45 11/19/18 18:56 Viread PO 300 mg Q96H RUBI Administration Nutrition/Malnutrition Assess - Dietary Evaluation Nutrition/Malnutrition Findings: Nutrition Notes Start: 10/11/18 11:14 Freq: Status: Active Protocol: Document 11/22/18 10:24 LM (Rec: 11/22/18 10:34 LM [id number]) Co-Sign 11/22/18 10:24 LP Nutrition Notes Initial or Follow up Reassessment Current Diagnosis Acute Kidney Injury,CKD(stage I-IV),Hypertension,Heart Failure,Stroke Other Pertinent Diagnosis Depression,Dysphagia,on HD, Acute encephalopathy,HIV/AIDS, Syphilis Current Diet NPO Labs/Tests Reviewed Pertinent Medications Reviewed Height 5 ft 9 in Weight 47.9 kg [place] Body Weight (kg) 72.72 BMI 15.5 Subjective/Other Information Pt did not receive breakfast this morning due to being made NPO yesterday for procedure. Procedure did not happen and is scheduled for tomorrow. Pureed diet ordered for dinner tonight. Pt stated he feels hungry. Percent of energy/protein needs met: 0%/0% Burn Absent Trauma Absent #2 Nutrition Diagnosis Malnutrition Diagnosis Progress(for reassessment Continues documentation) #1 Nutrition Diagnosis Inadequate oral intake Diagnosis Progress(for reassessment Continues documentation) Is patient on ventilator? No Is Patient Ambulatory and/or Out of Bed No REE-([facility]-confined to bed) 1646.712 Kcal/Kg value to use for calculation 40 Approximate Energy Requirements Using 1916 kcal/Kg Calculation Used for Recommendations Kcal/kg Additional Notes Pro needs 1.2-1.5g/k-72g/ day Fluid needs 1ml/kcal Nutrition Intervention Change Diet Order: Pureed diet Add Supplement/Snack (indicate name/kcal Nepro 1 daily /protein ) Provides kCal: 425 Provides Protein (gm) 19 Goal #1 Meet at least 75% of calorie and protein needs via PO and ONS intakes Anticipated Discharge Needs: Pureed, Renal diet Follow-Up By: 11/26/18 Additional Comments F/U fro PO and ONS intakes, add ONS back to diet
[2018-11-23] MEDS: PREVACID SOLUTAB FEEDTUBE SCH ×3 (09:32→22:13)
[2018-11-23] MEDS: NYSTATIN PO SCH ×3 (09:33→22:12)
[2018-11-23] MEDS: SODIUM CHLORIDE FLUSH SYRINGE 10 ML IV SCH ×3 (09:34→22:20)
--- NOTE | 2018-11-23 10:16 | Progress Note ---
Assessment and Plan Cultures: Blood culture 10/10/2018 no growth. Sputum culture 10/10/2018 Ana Paula albicans. Crypto Ag 10/10/2018 neg. Urine culture 10/13/2018 no growth. Blood culture 10/17/2018 no growth. Blood culture 10/20/2018: no growth Stool Occult Blood 10/23/18: positive Blood culture 10/29/18: negative Urine culture 10/31/18: Anap Aula Blood culture 11/05/18: No growth Blood culture 11/14/18: no growth Assessment: 43 y/o male with history of HIV (unknown CD4/VL/ART intake), HTN, CVA 6 months ago at [facility], Nicotine Dependence, Malnutrition; admitted on 10/10/2018 due to AMS (confusion/lethargy) and slurred speech for 24 h: 1) SIRS versus sepsis: Resolved. Etiology unknown. Could be related to decubiti, seems to be responding to abx - CXR neg - BNP 70K - Troponin 0.2 - LDH 2242 -chest CT :Patchy airspace disease in the right lower lobe compatible with pneumonia. No evidence of pleural effusion. -repeat CXR : clear lungs and normal bony and soft tissue structures. Patchy airspace disease in the right lower lobe has resolved since 11/07/18 2) Acute hypoxemic respiratory failure: for airway protection +/- ? pneumonia. Repeat CXR no consolidations. Ana Paula in tracha sp likely a colonizer. Extubated 10/15. Continues on atovaquone as prophylaxis. Patient has sulfa allergy. 3) Acute encephalopathy: Improved.; multifactorial ?from hypertensive urgency +/- brain opportunistic infection. DDx: Neurosyphilis, VZV/CMV encephalitis versus DRY CHARGE PROCESS ATTENDANT lymphoma versus less likely PML v/s ischemic CVA (seems more likely) - CT head showed bilateral chronic ischemic changes. - Brain MRI showed areas of edema in the basal ganglia and thalami bilaterally, within the jamari and in the cerebral hemispheres bilaterally in the subcortical and deep white matter and in portions of the cortex, areas of encephalomalacia in the basal ganglia bilaterally with evidence of previous hemorrhage or mineral deposition and numerous small foci of acute infarct in the basal ganglia bilaterally, subinsular regions bilaterally and medial temporal lobes bilaterally and possibly in the occipital cortex bilaterally. - Brain MRA showed possible dissection versus artifact at the basilar artery. Luminal irregularity at the anterior, middle, and posterior cerebral arteries as well as the carotid siphons may represent mild to moderate atherosclerotic disease. More notable narrowing at the distal right A1 segment. Differential diagnosis includes motion artifact and vasculitis. Vertebral arteries are not clearly visualized. - CSF wbc 4, rbc 113, Seg 8%, Lymph 76%, protein 55, glucose 73 which is not c/w meningitis - RPR reactive 1:32 / FTA ABs reactive, treated with penicillin and cef triaxone but CSF VDRL Non reactive. - Toxoplasma IgG negative, CSF Toxoplasma PCR: negative - Blood CMV DNA VL=1,370, 3.1 log on ganciclovir - likely reactivation - Repeat CMV DNA PCR 10/24/2018: <200. Off ganciclovir. - Glucan Assay: negative 4) Anemia/thrombocytopenia: improving. 5) Acute on CKD or SHRUTHI ? unclear etiology: on HD. RIJ permacath placement today. 6) DM: uncontrolled. 7) HIV/AIDS: VL 320,000 / CD4=3 on 10/11/2018. 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 Started HIV treatment on 10/30/2018. Continue HIV therapy,renally adjusted TDF, FTC along with dolutegravir and ritonavir boosted darunavir. 8) Decubitus Ulcers: Left buttocks wound measures 9.0 x 2.5, Sacral wound measu res 3.5 x 3.5, 80 % necrotic tissue, Right buttocks wound measures 5.0 x 3.0 per wound care. Recommendations: -continue atovaquone 750 mg BID -continue HIV therapy: renally adjusted TDF, FTC along with dolutegravir and ritonavir boosted darunavir Discontinue Cefepime, Vancomycin and Flagyl Monitor off antibiotics -continue wound care -CBC ordered for tomorrow [facility] M: [phone] O:[phone] Subjective Date of service: 11/23/18 Principal diagnosis: anemia Interval history: Patient seen and examined. Reports generalized weakness, no pain. no Fevers. Objective - Exam Narrative Exam: General appearance: Awake, Alert, No acute distress Eyes: anicteric sclerae, moist conjunctivae; no lid-lag; PERRLA HENT: Atraumatic; oropharynx limited Neck: Trachea midline; supple, no thyromegaly or lymphadenopathy Lungs: CTA, with normal respiratory effort CV: tachycardic Abdomen: Soft, non-tender;+SP cath Extremities: No peripheral edema , + contractures bilateral lower extremities Skin: Normal temperature, turgor and texture; no rash, ulcers or subcutaneous nodules Psych: affect: Flat Neuro: Improved, following simple commands - Constitutional Vitals: Vital Signs Temp Pulse Resp BP Pulse Ox 99.0 F 119 H 16 125/84 100 11/23/18 05:53 11/23/18 05:53 11/23/18 05:53 11/23/18 05:53 11/23/18 05:53 Temperature -Last 24 Hours Temperature 99.0 F Temperature 97.6 F Temperature 98.4 F Temperature 99.3 F - Labs CBC & Chem 7: 11/21/18 01:00 11/19/18 05:31 Labs: Abnormal lab results 11/20/18 11/23/18 Range/Units 00:43 00:08 POC Glucose 127 H 126 H (70-105)
--- NOTE | 2018-11-23 10:48 | Progress Note ---
Assessment and Plan Impression * ESRD * Respiratory failure * Encephalopathy * Sepsis * cardiomyopathy--ef 35% * Anemia * Thrombocytopenia * tachycardia * HIV disease Recommendations * Patient remains oliguric. No evidence of renal recovery at this time * renal diet * HD q MWF * follow up lytes daily * He most likely has ATN * Avoid nephrotoxins * Adjust meds for GFR less than 10 * Monitor fluid status and electrolytes closely * Consultants notes appreciated * outpatient hd placement for hd * patient is still with a Vas-Cath. He will require PermCath. Discussed with v ascular surgery. Not safe to discharge patient with Vas-Cath. Once discharge arrangements have been made Subjective Date of service: 11/23/18 Principal diagnosis: anemia Interval history: resting well in bed today Objective - Exam Narrative Exam: HEENT: Oral mucosa moist no pallor or icterus Neck: Supple no JVD Chest: Clear to auscultation anteriorly CVS: Regular rate and rhythm S1 and S2 heard Abdomen: Soft nontender no suprapubic masses no organomegaly appreciable Extremity: Dry skin less than 1+ peripheral edema Musculoskeletal: No joint effusion noted in knees and ankle Neurological: Alert awake Dermatology: No petechial rashes Psychiatry: No evidence of any agitation and aggression noted - Vital Signs Vital signs: Vital Signs - 12hr 11/23/18 11/23/18 00:01 05:53 Temperature 97.6 F 99.0 F Pulse Rate 115 H 119 H Respiratory 18 16 Rate Blood Pressure 122/87 125/84 O2 Sat by Pulse 90 100 Oximetry - Lab 11/21/18 01:00 11/19/18 05:31 Most recent lab results Calcium 8.9 mg/dL (8.4-10.2) 11/19/18 05:31 Phosphorus 8.30 mg/dL (2.5-4.5) H 10/25/18 10:00 Magnesium 3.10 mg/dL (1.7-2.3) H 10/18/18 05:03 Urine Creatinine 30.8 mg/dL (0.1-20.0) H 10/13/18 04:43 Urine Sodium 106 mmol/L 10/13/18 04:43 Urine Total Protein 75 mg/dL (5-11.8) H 10/13/18 04:43 Medications & Allergies - Medications Allergies/Adverse Reactions: Allergies Sulfa (Sulfonamide Antibiotics) Allergy (Verified 10/10/18 16:54) Unknown Home Medications: Home Medications Medication Instructions Recorded Confirmed Last Taken Type Acetaminophen [Tylenol] 1,000 mg PO Q6HR 10/10/18 10/10/18 Unknown History Amlodipine Besylate [Norvasc] 10 mg PO QDAY 10/10/18 10/10/18 Unknown History Aspirin [Adult Aspirin] 81 mg PO DAILY 10/10/18 10/10/18 Unknown History Atorvastatin [Lipitor Tab] 80 mg PO DAILY 10/10/18 10/10/18 Unknown History Losartan [Cozaar] 100 mg PO QDAY 10/10/18 10/10/18 Unknown History Multivitamin [Multiple Vitamins] 1 each PO DAILY 10/10/18 10/10/18 Unknown His tory hydroCHLOROthiazide [HCTZ] 25 mg PO QDAY 10/10/18 10/10/18 Unknown History Active Medications: Generic Name Dose Route Start Last Admin Trade Name Freq PRN Reason Stop Dose Admin Acetaminophen 500 mg 10/16/18 10:02 11/17/18 00:29 Tylenol PO 500 mg Q6H PRN Administration Fever >101 Albumin Human 25 gm 11/04/18 16:14 Alburx 25% (Albumin) IV CHON PRN Hypotension Albuterol 2.5 mg 11/21/18 07:24 Proventil IH Q4HRT PRN Shortness Of Breath Lipase/Protease/Amylase 1 each 10/11/18 12:[address] 10,500 Unit FEEDTUBE PRN PRN For Clogged Feeding Tube Atovaquone 1,500 mg 11/14/18 10:00 11/22/18 11:45 Mepron PO 1,500 mg QDAY RUBI Administration Darunavir 800 mg 10/30/18 18:00 11/22/18 11:44 Prezista PO 800 mg QDAY RUBI Administration Emtricitabine 200 mg 11/01/18 10:00 11/21/18 17:49 Emtriva PO 200 mg Q48HR RUBI Administration Epoetin Dany 20,000 unit 11/12/18 15:00 11/19/18 16:27 Procrit IV 20,000 unit .MWF RUBI Administration Heparin Sodium (Porcine) 5,000 unit 11/04/18 16:15 Heparin IV CHON PRN hemodialysis Heparin Sodium (Porcine) 5,000 unit 11/07/18 22:00 11/23/18 09:33 Heparin SUB-Q Not Given Q8HR RUBI Hydrophilic Ointment 1 applic 10/10/18 17:53 Vaseline Lip Therapy TP Q2HR PRN Dry Lips Sodium Chloride 100 mls @ 999 mls/hr 11/12/18 09:51 Nacl 0.9% IV CHON PRN Hypotension Ipratropium [place] 0.5 mg 11/20/18 22:07 Atrovent IH Q4HRT PRN Shortness Of Breath Lansoprazole 30 mg 10/15/18 10:00 11/23/18 09:32 Prevacid Solutab FEEDTUBE Not Given BID RUBI Metoprolol Tartrate 5 mg 10/18/18 14:05 11/21/18 21:32 Lopressor IV 5 mg Q6HR PRN Administration Tachyarrhythmias Metoprolol Tartrate 25 mg 11/20/18 13:31 11/23/18 09:33 Lopressor PO Not Given Q6H RUBI Multi-Ingred Cream/Lotion/Oil/Oint 1 applic 10/10/18 17:53 Artificial Tears Ophth Oint OU Q4HR PRN Dry Eye(s) Multivitamins 1 each 10/11/18 10:00 11/22/18 11:45 Theragran Tab PO 1 each DAILY RUBI Administration Nystatin 100,000 unit 11/17/18 14:00 11/23/18 09:33 Nystatin PO 11/24/18 13:59 Not Given TID RUBI Ondansetron HCl 4 mg 11/12/18 15:05 Zofran IV Q8H PRN N/V unrelieved by Buddy Faye Hydrophilic Mucilloid 1 each 11/08/18 18:00 11/22/18 11:48 Metamucil PO 1 each QDAY RUBI Administration Ritonavir 100 mg 10/30/18 18:00 11/22/18 11:44 Norvir PO 100 mg QDAY RUBI Administration Sertraline HCl 50 mg 11/21/18 19:52 11/22/18 11:45 Zoloft PO 50 mg QDAY RUBI Administration Simple Syrup 15 ml 10/11/18 12:58 Simple Syrup FEEDTUBE PRN PRN Hypoglycemia Simple Syrup 30 ml 10/11/18 12:58 Simple Syrup FEEDTUBE PRN PRN Hypoglycemia Sodium Bicarbonate 325 mg 10/11/18 12:58 Sodium Bicarbonate FEEDTUBE PRN PRN For Clogged Feeding Tube Sodium Chloride 10 ml 10/10/18 22:00 11/23/18 09:34 Sodium Chloride Flush Syringe 10 Ml IV Not Given BID RUBI Sodium Chloride 10 ml 10/10/18 18:12 Sodium Chloride Flush Syringe 10 Ml IV PRN PRN LINE FLUSH Tenofovir Disoproxil Fumarate 300 mg 10/30/18 17:45 11/19/18 18:56 Viread PO 300 mg Q96H RUBI Administration
[2018-11-23] MEDS: TIVICAY PO SCH (15:18)
[2018-11-23] MEDS: MEPRON PO SCH (15:19)
[2018-11-23] MEDS: NORVIR PO SCH (15:19)
[2018-11-23] MEDS: PREZISTA PO SCH (15:19)
[2018-11-23] MEDS: EMTRIVA PO SCH (15:19)
[2018-11-23] MEDS: ZOLOFT PO SCH (15:19)
[2018-11-23] MEDS: METAMUCIL PO SCH (15:20)
[2018-11-23] MEDS: VIREAD PO SCH ×2 (15:20→17:06)
[2018-11-23] MEDS: THERAGRAN Tab PO SCH (15:21)
[2018-11-23] MEDS: PROCRIT IV SCH (17:10)
[2018-11-23] MEDS ORDERED: NACL 0.9 (PRIMING MACHINE ONLY DIALYSIS) MC ONE (23:24)
[2018-11-24 01:08] LABS: Hematocrit 23.5 % (35.5-45.6); Hemoglobin 7.4 gm/dl (11.8-15.2); Mean Corpuscular HGB Conc 32 % (32-34); Mean Corpuscular Volume 92 fl (84-94); Platelet Count 206 K/mm3 (140-440); Red Blood Count 2.54 M/mm3 (3.65-5.03)
[2018-11-24 01:17] LABS: Red Cell Distribution Width 20.2 % (13.2-15.2)
[2018-11-24] MEDS: LOPRESSOR PO SCH ×4 (03:03→17:31)
[2018-11-24 03:15] LABS: Band Neutrophils # (Manual) 0.5 K/mm3; Basophils % (Manual) 0 % (0.0-1.8); Total Cells Counted 100
[2018-11-24 03:16] LABS: Anisocytosis 1+; Target Cells Few
[2018-11-24 03:17] LABS: Hypochromasia 1+
[2018-11-24] MEDS: NYSTATIN PO SCH (08:08)
[2018-11-24] MEDS: HEPARIN SUB-Q SCH ×3 (08:09→22:40)
[2018-11-24] MEDS: MEPRON PO SCH (09:30)
--- NOTE | 2018-11-24 09:33 | Progress Note ---
Assessment and Plan Assessment and plan: Patient is 43 YO Male with HIV, hypertension, previous stroke, Nicotine Dependence, presents to ED for evaluation. Patient was confused and lethargic and unable to provide history. He was seen and evaluated in ED and found to be in distress and unable to protect his airway and was therefore intubated, placed on ventilator in ER then admitted Neuro ams acute metabolic encephalopathy improving /Acute CVA with Bilateral infarcts with edema Consulted Neurology, he was evaluated by DR. Valentine. mentation is improved, and this is likely his new baseline Dysphagia/ moderate malnutrition -MBS 10/23, recommended pureed with nectar thickened liquids, continue this diet -contact center analyst consulted Hematology Anemia- stable, thrombocytopenia, leukocytosis, coagulopathy; now resolved -Status post platelet (3 units) and prbc (6 units ) transfusion, the patient had only few schistocytes on smear, ADAMS13 91% activity , plt count has recovered ID HIV/AIDS, CD4 count 3, HIV viral load 320,000 acute bacterial PNA, CMV viremia toxo neg, CSF neg ,Whole blood cmv PCR was positive at 1374 abx and anti- antiviral per ID,continues to have fever on and off -he was put back on HAART, he likely has component of IRIS causing fevers and sob -most recent cxr 11/12 show no infiltrate, dw ID oral thrus, nystatin swish and spit ordered x 7 days FEN/Renal SHRUTHI- ATN, no signs of renal recovery, now ESRD, Hyperkalemia, urinary retention Severe protein calorie malnutrition sp SPC on 10/12 cont HD per nephrology, no signs of renal recovery -now afebrile, spoke to vas sx about PC placement -dietitican consult Pulm acute hypoxic resp failure on MV> 96 hours self extubated 10/16, continue supplemental oxygen prn CTA neg for PE on 11/06 CVS /Hypertensive urgency and acute systolic CHF He was treated with Cardene drip which was weaned off. Optimize medications for CHF on coreg, no mik due to high K, fluid removal by dialysis Skin Stage 2 sacral wound decub, and bilat buttock wounds left buttocks area. The wound is measured at 9.0x2.5. 25% slough noticed to the wound sacral area. The wound is measured at 3.5x3.5.80% necrotic tissue noticed to the wound right buttocks area. The wound is measured at 5.0x3.0. no evidence of infection, but wounds are necrotic, cont wound care Depression MH input appreciated, he is improving Severe debility; he was previously refusing PT and not participating, I spoke to the patient . He agrees to be more complaints of physical therapy. he is now participating with PT, contractures are improving DVT ppx- heparin sq Dispo: Needs HD and home health set up before he can be dc History Interval history: No chest pain No SOB currently Hospitalist Physical - Physical exam Narrative exam: Gen: Not in acute distress, ill looking, lying in bed,malnourished HEENT: Normocephalic, atraumatic Neck:Supple, no JVD Heart: S1 and S2 reg, no murmurs, rubs or gallop Lungs: Clear no crackles Abd: soft, non tender, non distended, normal BS Ext: No edema, no clubbing, no cyanosis Neuro: Awake, no focal signs, moves all ex - Constitutional Vitals: Temp Pulse Resp BP Pulse Ox 98.8 F 105 H 17 121/84 100 11/24/18 05:36 11/24/18 05:36 11/24/18 05:36 11/24/18 05:36 11/24/18 05:36 General appearance: Present: no acute distress Results - Labs CBC & Chem 7: 11/24/18 00:09 11/19/18 05:31 Labs: Laboratory Last Values WBC 8.1 K/mm3 (4.5-11.0) 11/24/18 00:09 RBC 2.54 M/mm3 (3.65-5.03) L 11/24/18 00:09 Hgb 7.4 gm/dl (11.8-15.2) L 11/24/18 00:09 Hct 23.5 % (35.5-45.6) L 11/24/18 00:09 MCV 92 fl (84-94) 11/24/18 00:09 MCH 29 pg (28-32) 11/24/18 00:09 MCHC 32 % (32-34) 11/24/18 00:09 RDW 20.2 % (13.2-15.2) H 11/24/18 00:09 Plt Count 206 K/mm3 (140-440) 11/24/18 00:09 Lymph % (Auto) Sales [employer] Support [employer] Agent 11/24/18 00:09 Gu[place]upe % (Auto) Sales And Support [employer] Agent 11/24/18 00:09 Eos % (Auto) Sales And Support [employer] Agent 11/24/18 00:09 Baso % (Auto) Sales And Support [employer] Agent 11/24/18 00:09 Lymph # Sales And Support [employer] Agent 11/24/18 00:09 Gu[place]upe # Sales And Support [employer] Agent 11/24/18 00:09 Eos # Sales And Support [employer] Agent 11/24/18 00:09 Baso # Sales And Support [employer] Agent 11/24/18 00:09 Add Manual Diff Complete 11/24/18 00:09 Total Counted 100 11/24/18 00:09 Seg Neutrophils % Sales [employer] Support [employer] Agent 11/24/18 00:09 Seg Neuts % (Manual) 71.0 % (40.0-70.0) H 11/24/18 00:09 Band Neutrophils % 6.0 % 11/24/18 00:09 Lymphocytes % (Manual) 8.0 % (13.4-35.0) L 11/24/18 00:09 Reactive Lymphs % (Man) 0 % 11/24/18 00:09 Monocytes % (Manual) 10.0 % (0.0-7.3) H 11/24/18 00:09 Eosinophils % (Manual) 5.0 % (0.0-4.3) H 11/24/18 00:09 Basophils % (Manual) 0 % (0.0-1.8) 11/24/18 00:09 Metamyelocytes % 0 % 11/24/18 00:09 Myelocytes % 0 % 11/24/18 00:09 Promyelocytes % 0 % 11/24/18 00:09 Blast Cells % 0 % 11/24/18 00:09 Nucleated RBC % 25.0 % (0.0-0.9) H 11/24/18 00:09 Seg Neutrophils # Sales And Support Center Agent 11/24/18 00:09 Seg Neutrophils # Man 5.8 K/mm3 (1.8-7.7) 11/24/18 00:09 Band Neutrophils # 0.5 K/mm3 11/24/18 00:09 Abs Lymphs (Manual) 267 cells/uL (850-3900) L 10/11/18 17:36 Lymphocytes # (Manual) 0.6 K/mm3 (1.2-5.4) L 11/24/18 00:09 Abs React Lymphs (Man) 0.0 K/mm3 11/24/18 00:09 Monocytes # (Manual) 0.8 K/mm3 (0.0-0.8) 11/24/18 00:09 Eosinophils # (Manual) 0.4 K/mm3 (0.0-0.4) 11/24/18 00:09 Basophils # (Manual) 0.0 K/mm3 (0.0-0.1) 11/24/18 00:09 Metamyelocytes # 0.0 K/mm3 11/24/18 00:09 Myelocytes # 0.0 K/mm3 11/24/18 00:09 Promyelocytes # 0.0 K/mm3 11/24/18 00:09 Blast Cells # 0.0 K/mm3 11/24/18 00:09 Pathologist Review 10/15/18 03:14 WBC Morphology Not Reportable 11/24/18 00:09 Hypersegmented Neuts Not Reportable 11/24/18 00:09 Hyposegmented Neuts Not Reportable 11/24/18 00:09 Hypogranular Neuts Not Reportable 11/24/18 00:09 Smudge Cells Not Reportable 11/24/18 00:09 Toxic Granulation Not Reportable 11/24/18 00:09 Toxic Vacuolation Not Reportable 11/24/18 00:09 Dohle Bodies Not Reportable 11/24/18 00:09 Pelger-Huet Anomaly Not Reportable 11/24/18 00:09 Kartik Rods Not Reportable 11/24/18 00:09 Platelet Estimate Appears normal 11/24/18 00:09 Clumped Platelets Not Reportable 11/24/18 00:09 Plt Clumps, EDTA Not Reportable 11/24/18 00:09 Large Platelets Not Reportable 11/24/18 00:09 Giant Platelets Not Reportable 11/24/18 00:09 Platelet Satelliting Not Reportable 11/24/18 00:09 Plt Morphology Comment Not Reportable 11/24/18 00:09 RBC Morphology Not Reportable 11/24/18 00:09 Dimorphic RBCs Not Reportable 11/24/18 00:09 Polychromasia Few 11/24/18 00:09 Hypochromasia 1+ 11/24/18 00:09 Poikilocytosis Not Reportable 11/24/18 00:09 Anisocytosis 1+ 11/24/18 00:09 Microcytosis Rare 11/24/18 00:09 Macrocytosis Not Reportable 11/24/18 00:09 Spherocytes Not Reportable 11/24/18 00:09 Pappenheimer Bodies Not Reportable 11/24/18 00:09 Sickle Cells Not Reportable 11/24/18 00:09 Target Cells Few 11/24/18 00:09 Tear Drop Cells Not Reportable 11/24/18 00:09 Ovalocytes Not Reportable 11/24/18 00:09 Stomatocytes Few 11/10/18 06:54 Helmet Cells Not Reportable 11/24/18 00:09 Smith-[place] Bodies Not Reportable 11/24/18 00:09 Coleridge Rings Not Reportable 11/24/18 00:09 [place] Cells Not Reportable 11/24/18 00:09 Bite Cells Not Reportable 11/24/18 00:09 Crenated Cell Not Reportable 11/24/18 00:09 Elliptocytes Not Reportable 11/24/18 00:09 Acanthocytes (Spur) Not Reportable 11/24/18 00:09 Rouleaux Not Reportable 11/24/18 00:09 Hemoglobin C Crystals Not Reportable 11/24/18 00:09 Schistocytes Not Reportable 11/24/18 00:09 Malaria parasites Not Reportable 11/24/18 00:09 Jv Bodies Not Reportable 11/24/18 00:09 Hem Pathologist Commnt No 11/24/18 00:09 PT 17.7 Sec. (12.2-14.9) H 11/06/18 13:18 INR 1.36 (0.87-1.13) H 11/06/18 13:18 APTT 30.6 Sec. (24.2-36.6) 11/06/18 13:18 Thrombin Time 16.9 Sec. (15.1-19.6) 10/10/18 15:02 Heparin Anti-Xa Level < 0.10 U.I./ml (0.3-0.7) L 11/07/18 21:31 Heparin Anti-Xa, Unfract Negative (Negative) 10/25/18 05:59 POC ABG pH 7.455 (7.35-7.45) H 11/23/18 13:46 POC ABG pCO2 32.0 (35-45) L 10/21/18 09:49 POC ABG pO2 111 (80-105) H 11/23/18 13:46 POC ABG HCO3 17.3 (22-26 mml/L) 11/23/18 13:46 POC ABG Total CO2 18 (23-27mmol/L) 11/23/18 13:46 POC ABG O2 Sat 99 11/23/18 13:46 POC ABG Base Excess -7 ((-2) - (+3)mmol/L) 11/23/18 13:46 FiO2 21 % 11/23/18 13:46 Sodium 141 mmol/L (137-145) 11/19/18 05:31 Potassium 4.6 mmol/L (3.6-5.0) 11/19/18 05:31 Chloride 98.1 mmol/L (98-107) 11/19/18 05:31 Carbon Dioxide 21 mmol/L (22-30) L 11/19/18 05:31 Anion Gap 27 mmol/L 11/19/18 05:31 BUN 62 mg/dL (9-20) H 11/19/18 05:31 Creatinine 8.5 mg/dL (0.8-1.5) H 11/19/18 05:31 Estimated GFR 8 ml/min 11/19/18 05:31 BUN/Creatinine Ratio 7 % 11/19/18 05:31 Glucose 129 mg/dL (75-100) H 11/19/18 05:31 POC Glucose 110 (70-105) H 11/23/18 13:35 Osmolality 338 Mosm/kg 10/11/18 17:35 Lactic Acid 1.80 mmol/L (0.7-2.0) 10/12/18 05:59 Uric Acid 13.4 mg/dL (3.5-7.6) H 10/11/18 17:36 Calcium 8.9 mg/dL (8.4-10.2) 11/19/18 05:31 Phosphorus 8.30 mg/dL (2.5-4.5) H 10/25/18 10:00 Magnesium 3.10 mg/dL (1.7-2.3) H 10/18/18 05:03 Iron 147 ug/dL (49-181) 10/11/18 17:36 TIBC 236 mcg/dL (250-450) L 10/11/18 17:36 Ferritin 77001.0 ng/mL (13.0-400.0) H 10/11/18 17:35 Total Bilirubin 0.30 mg/dL (0.1-1.2) 11/19/18 05:31 Direct Bilirubin 0.2 mg/dL (0-0.2) 10/16/18 04:07 Indirect Bilirubin 0.3 mg/dL 10/16/18 04:07 AST 26 units/L (5-40) 11/19/18 05:31 ALT 11 units/L (7-56) 11/19/18 05:31 Alkaline Phosphatase 74 units/L (35-129) 11/19/18 05:31 Ammonia 25.0 umol/L (25-60) 10/17/18 14:59 Lactate Dehydrogenase 925 units/L (91-180) H 10/22/18 05:51 Troponin T 0.357 ng/mL (0.00-0.029) H* 11/06/18 05:54 NT-Pro-B Natriuret Pep 52951 pg/mL (0-450) H 10/10/18 15:42 Total Protein 7.6 g/dL (6.3-8.2) 11/19/18 05:31 Albumin 2.6 g/dL (3.9-5) L 11/19/18 05:31 Albumin/Globulin Ratio 0.5 % 11/19/18 05:31 Triglycerides 306 mg/dL (2-149) H 11/05/18 11:29 Cholesterol 145 mg/dL (50-199) 11/05/18 11:29 LDL Cholesterol Direct 89 mg/dL (50-130) 11/05/18 11:29 HDL Cholesterol 25 mg/dL (40-59) L 11/05/18 11:29 Cholesterol/HDL Ratio 5.80 % 11/05/18 11:29 Serotonin Release Assay See scanned result 10/25/18 05:59 Vitamin B12 912.3 pg/mL (211-911) H 10/14/18 08:51 Folate 8.32 ng/mL (7.3-26.0) 10/14/18 08:51 PTH Intact 388.7 pg/mL (15-65) H 10/25/18 10:00 Urine Creatinine 30.8 mg/dL (0.1-20.0) H 10/13/18 04:43 Urine Sodium 106 mmol/L 10/13/18 04:43 Urine Total Protein 75 mg/dL (5-11.8) H 10/13/18 04:43 CSF Appearance Clear 10/16/18 15:00 CSF Color Colorless 10/16/18 15:00 CSF WBC 4 /mm3 (1-10) 10/16/18 15:00 CSF RBC 113 /mm3 (0-0) 10/16/18 15:00 CSF Seg Neutrophils 8.0 % (0-6) 10/16/18 15:00 CSF Lymphocytes % 76.0 % (40-80) 10/16/18 15:00 CSF Reactive Lymphs 2.0 % 10/16/18 15:00 CSF Monocytes % 14.0 % (15-45) 10/16/18 15:00 CSF Eosinophils % 0 % 10/16/18 15:00 CSF Basophils 0 % 10/16/18 15:00 CSF Pathologist Review C 10/16/18 15:00 CSF Glucose 73 mg/dL 10/16/18 15:00 CSF Total Protein 55 mg/dL 10/16/18 15:00 CSF VDRL Nonreactive (Nonreactive) 10/16/18 15:00 Random Vancomycin 21.1 ug/mL (0-40.0) 11/20/18 06:15 Immunofix Electrophor see below 10/11/18 17:36 RENO Screen Negative (Negative) 10/21/18 15:07 Proteinase 3 (PR3) Ab <1.0 AI (<1.0) 10/21/18 15:07 Myeloperoxidase Ab <1.0 AI (<1.0) 10/21/18 15:07 Heparin-induced Plt Ab Negative (Negative) 10/25/18 05:59 UF Heparin High Dose 0 % Release 10/25/18 05:59 VJ UFH Low Dose 0.1 0 % Release 10/25/18 05:59 VJ UFH Low Dose 0.5 14 % Release 10/25/18 05:59 Lymph Enumerat CD4/CD8 0.01 (0.86-5.00) L 10/11/18 17:36 % CD3 Cells 85 % (57-85) 10/11/18 17:36 Absolute CD3 Count 226 cells/uL (840-3060) L 10/11/18 17:36 % CD4 Cells 1 % (30-61) L 10/11/18 17:36 Absolute CD4 Count 3 cells/uL (490-1740) L 10/11/18 17:36 % CD8 Cells 82 % (12-42) H 10/11/18 17:36 Absolute CD8 Count 228 cells/uL (180-1170) 10/11/18 17:36 % CD19 Cells 6 % (6-29) 10/11/18 17:36 Absolute CD19 Count 16 cells/uL (110-660) L 10/11/18 17:36 RPR Titer 1:32 10/11/18 17:37 RPR Reactive (Nonreactive) 10/11/18 17:37 T.pallidum Ab (FTA-ABS) Reactive (Nonreactive) H 10/12/18 Unknown CMV DNA PCR log endoscopic technician/mL See scanned result 10/24/18 17:47 Hepatitis A IgM Ab Non-reactive (NonReactive) 11/21/18 09:58 Hep Bs Antigen Non-reactive (Negative) 11/21/18 09:58 Hep B Core IgM Ab Non-reactive (NonReactive) 11/21/18 09:58 Hepatitis C Antibody Non-reactive (NonReactive) 11/21/18 09:58 HIV-1 RNA PCR copies/ml [id number] Copies/mL H 10/11/18 17:36 HIV-1 RNA (PCR) log 5.51 Log cps/mL H 10/11/18 17:36 HIV-1 Genotyping See scanned results 10/29/18 19:48 Toxoplasma IgG Ab <7.20 IU/mL (<7.20) 10/13/18 07:54 Miscellaneous Test Flexitest 1 10/31/18 06:43 Blood Type A POSITIVE 11/08/18 11:28 Antibody Screen Negative 11/08/18 11:28 Crossmatch See Detail 11/08/18 11:28 Active Medications - Current Medications Current Medications: Generic Name Dose Route Start Last Admin Trade Name Freq PRN Reason Stop Dose Admin Acetaminophen 500 mg 10/16/18 10:02 11/17/18 00:29 Tylenol PO 500 mg Q6H PRN Administration Fever >101 Albumin Human 25 gm 11/04/18 16:14 Alburx 25% (Albumin) IV CHON PRN Hypotension Albuterol 2.5 mg 11/21/18 07:24 Proventil IH Q4HRT PRN Shortness Of Breath Lipase/Protease/Amylase 1 each 10/11/18 12:58 Pancreaze 10,500 Unit FEEDTUBE PRN PRN For Clogged Feeding Tube Atovaquone 1,500 mg 11/14/18 10:00 11/23/18 15:19 Mepron PO 1,500 mg QDAY RUBI Administration Darunavir 800 mg 10/30/18 18:00 11/23/18 15:19 Prezista PO 800 mg QDAY RUBI Administration Emtricitabine 200 mg 11/01/18 10:00 11/23/18 15:19 Emtriva PO 200 mg Q48HR RUBI Administration Epoetin Dany 20,000 unit 11/12/18 15:00 11/23/18 17:10 Procrit IV 20,000 unit .MWF RUBI Administration Heparin Sodium (Porcine) 5,000 unit 11/04/18 16:15 Heparin IV CHON PRN hemodialysis Heparin Sodium (Porcine) 5,000 unit 11/07/18 22:00 11/24/18 08:09 Heparin SUB-Q 5,000 unit Q8HR RUBI Administration Hydrophilic Ointment 1 applic 10/10/18 17:53 Vaseline Lip Therapy TP Q2HR PRN Dry Lips Sodium Chloride 100 mls @ 999 mls/hr 11/12/18 09:51 Nacl 0.9% IV CHON PRN Hypotension Ipratropium Coral 0.5 mg 11/20/18 22:07 Atrovent IH Q4HRT PRN Shortness Of Breath Lansoprazole 30 mg 10/15/18 10:00 11/23/18 22:13 Prevacid Solutab FEEDTUBE 30 mg BID RUBI Administration Metoprolol Tartrate 5 mg 10/18/18 14:05 11/21/18 21:32 Lopressor IV 5 mg Q6HR PRN Administration Tachyarrhythmias Metoprolol Tartrate 25 mg 11/20/18 13:31 11/24/18 08:08 Lopressor PO 25 mg Q6H RUBI Administration Multi-Ingred Cream/Lotion/Oil/Oint 1 applic 10/10/18 17:53 Artificial Tears Ophth Oint OU Q4HR PRN Dry Eye(s) Multivitamins 1 each 10/11/18 10:00 11/23/18 15:21 Theragran Tab PO 1 each DAILY RUBI Administration Nystatin 100,000 unit 11/17/18 14:00 11/24/18 08:08 Nystatin PO 11/24/18 13:59 100,000 unit TID RUBI Administration Ondansetron HCl 4 mg 11/12/18 15:05 Zofran IV Q8H PRN N/V unrelieved by Buddy Faye Hydrophilic Mucilloid 1 each 11/08/18 18:00 11/23/18 15:20 Metamucil PO 1 each QDAY RUBI Administration Ritonavir 100 mg 10/30/18 18:00 11/23/18 15:19 Norvir PO 100 mg QDAY RUBI Administration Sertraline HCl 50 mg 11/21/18 19:52 11/23/18 15:19 Zoloft PO 50 mg QDAY RUBI Administration Simple Syrup 15 ml 10/11/18 12:58 Simple Syrup FEEDTUBE PRN PRN Hypoglycemia Simple Syrup 30 ml 10/11/18 12:58 Simple Syrup FEEDTUBE PRN PRN Hypoglycemia Sodium Bicarbonate 325 mg 10/11/18 12:58 Sodium Bicarbonate FEEDTUBE PRN PRN For Clogged Feeding Tube Sodium Chloride 10 ml 10/10/18 22:00 11/23/18 22:20 Sodium Chloride Flush Syringe 10 Ml IV 10 ml BID RUBI Administration Sodium Chloride 10 ml 10/10/18 18:12 Sodium Chloride Flush Syringe 10 Ml IV PRN PRN LINE FLUSH Tenofovir Disoproxil Fumarate 300 mg 10/30/18 17:45 11/23/18 17:06 Viread PO Not Given Q96H [facility] Nutrition/Malnutrition Assess - Dietary Evaluation Nutrition/Malnutrition Findings: Nutrition Notes Start: 10/11/18 11:14 Freq: Status: Active Protocol: Document 11/22/18 10:24 LM (Rec: 11/22/18 10:34 LM [id number]) Co-Sign 11/22/18 10:24 LP Nutrition Notes Initial or Follow up Reassessment Current Diagnosis Acute Kidney Injury,CKD(stage I-IV),Hypertension,Heart Failure,Stroke Other Pertinent Diagnosis Depression,Dysphagia,on HD, Acute encephalopathy,HIV/AIDS, Syphilis Current Diet NPO Labs/Tests Reviewed Pertinent Medications Reviewed Height 5 ft 9 in Weight 47.9 kg [place] Body Weight (kg) 72.72 BMI 15.5 Subjective/Other Information Pt did not receive breakfast this morning due to being made NPO yesterday for procedure. Procedure did not happen and is scheduled for tomorrow. Pureed diet ordered for dinner tonight. Pt stated he feels hungry. Percent of energy/protein needs met: 0%/0% Burn Absent Trauma Absent #2 Nutrition Diagnosis Malnutrition Diagnosis Progress(for reassessment Continues documentation) #1 Nutrition Diagnosis Inadequate oral intake Diagnosis Progress(for reassessment Continues documentation) Is patient on ventilator? No Is Patient Ambulatory and/or Out of Bed No REE-([facility]-confined to bed) 1646.712 Kcal/Kg value to use for calculation 40 Approximate Energy Requirements Using 1916 kcal/Kg Calculation Used for Recommendations Kcal/kg Additional Notes Pro needs 1.2-1.5g/k-72g/ day Fluid needs 1ml/kcal Nutrition Intervention Change Diet Order: Pureed diet Add Supplement/Snack (indicate name/kcal Nepro 1 daily /protein ) Provides kCal: 425 Provides Protein (gm) 19 Goal #1 Meet at least 75% of calorie and protein needs via PO and ONS intakes Anticipated Discharge Needs: Pureed, Renal diet Follow-Up By: 11/26/18 Additional Comments F/U fro PO and ONS intakes, add ONS back to diet
[2018-11-24] MEDS: PREZISTA PO SCH (09:36)
[2018-11-24] MEDS: THERAGRAN Tab PO SCH (09:37)
[2018-11-24] MEDS: TIVICAY PO SCH (09:39)
[2018-11-24] MEDS: ZOLOFT PO SCH (09:39)
[2018-11-24] MEDS: NORVIR PO SCH (09:48)
[2018-11-24] MEDS: METAMUCIL PO SCH (09:48)
[2018-11-24] MEDS: SODIUM CHLORIDE FLUSH SYRINGE 10 ML IV SCH ×2 (09:53→22:40)
--- NOTE | 2018-11-24 10:48 | Progress Note ---
Subjective Principal diagnosis: anemia Interval history: Patient was seen today for follow-up on multiple renal related issues Events of this hospitalization noted Patient has had a permacath placed Patient denies having any chest pain pressure or shortness of breath Vitals labs intake output medications were reviewed Social history: Reviewed Allergies: Reviewed Family history: Reviewed Physical examination HEENT: Oral mucosa moist no pallor or icterus Neck: Supple no JVD Permacath site unremarkable Chest: Clear to auscultation anteriorly CVS: Regular rate and rhythm S1 and S2 heard Abdomen: Soft nontender no suprapubic masses no organomegaly appreciable Extremity: Dry skin less than 1+ peripheral edema Musculoskeletal: No joint effusion noted in knees and ankle Neurological: Alert awake Dermatology: No petechial rashes Psychiatry: No evidence of any agitation and aggression noted Assessment and plan End-stage renal disease patient is currently on maintenance hemodialysis continue with hemodialysis treatment on Monday vested Monday schedule Etiology of renal failure has been felt to be due to acute tumor necrosis resulting from multifactorial etiology Cardiomyopathy ejection fraction 35% Multiple other comorbidities including thrombocytopenia HIV etc. patient does require permanent vascular access, possibly should also be considered for fistula or graft at some point Anemia in end-stage renal disease current hemoglobin around 7.4 Patient will need follow-up labs which will be ordered We'll continue to follow and make recommendation from renal standpoint Objective - Vital Signs Vital signs: Vital Signs - 12hr 11/23/18 11/24/18 11/24/18 23:38 03:03 05:36 Temperature 98.7 F 98.8 F Pulse Rate 112 H 107 H 105 H Respiratory 17 17 Rate Blood Pressure 139/91 138/82 121/84 O2 Sat by Pulse 100 100 Oximetry - Lab 11/24/18 00:09 11/19/18 05:31 Most recent lab results Calcium 8.9 mg/dL (8.4-10.2) 11/19/18 05:31 Phosphorus 8.30 mg/dL (2.5-4.5) H 10/25/18 10:00 Magnesium 3.10 mg/dL (1.7-2.3) H 10/18/18 05:03 Urine Creatinine 30.8 mg/dL (0.1-20.0) H 10/13/18 04:43 Urine Sodium 106 mmol/L 10/13/18 04:43 Urine Total Protein 75 mg/dL (5-11.8) H 10/13/18 04:43 Medications & Allergies - Medications Allergies/Adverse Reactions: Allergies Sulfa (Sulfonamide Antibiotics) Allergy (Verified 10/10/18 16:54) Unknown Home Medications: Home Medications Medication Instructions Recorded Confirmed Last Taken Type Acetaminophen [Tylenol] 1,000 mg PO Q6HR 10/10/18 10/10/18 Unknown History Amlodipine Besylate [Norvasc] 10 mg PO QDAY 10/10/18 10/10/18 Unknown History Aspirin [Adult Aspirin] 81 mg PO DAILY 10/10/18 10/10/18 Unknown History Atorvastatin [Lipitor Tab] 80 mg PO DAILY 10/10/18 10/10/18 Unknown History Losartan [Cozaar] 100 mg PO QDAY 10/10/18 10/10/18 Unknown History Multivitamin [Multiple Vitamins] 1 each PO DAILY 10/10/18 10/10/18 Unknown History hydroCHLOROthiazide [HCTZ] 25 mg PO QDAY 10/10/18 10/10/18 Unknown History Active Medications: Generic Name Dose Route Start Last Admin Trade Name Freq PRN Reason Stop Dose Admin Acetaminophen 500 mg 10/16/18 10:02 11/17/18 00:29 Tylenol PO 500 mg Q6H PRN Administration Fever >101 Albumin Human 25 gm 11/04/18 16:14 Alburx 25% (Albumin) IV CHON PRN Hypotension Albuterol 2.5 mg 11/21/18 07:24 Proventil IH Q4HRT PRN Shortness Of Breath Lipase/Protease/Amylase 1 each 10/11/18 12:58 Pancrebecka Reed 10,500 Unit FEEDTUBE PRN PRN For Clogged Feeding Tube Atovaquone 1,500 mg 11/14/18 10:00 11/24/18 09:30 Mepron PO 1,500 mg QDAY RUBI Administration Darunavir 800 mg 10/30/18 18:00 11/24/18 09:36 Prezista PO 800 mg QDAY RUBI Administration Emtricitabine 200 mg 11/01/18 10:00 11/23/18 15:19 Emtriva PO 200 mg Q48HR RUBI Administration Epoetin Dany 20,000 unit 11/12/18 15:00 11/23/18 17:10 Procrit IV 20,000 unit .MWF RUBI Administration Heparin Sodium (Porcine) 5,000 unit 11/04/18 16:15 Heparin IV CHON PRN hemodialysis Heparin Sodium (Porcine) 5,000 unit 11/07/18 22:00 11/24/18 08:09 Heparin SUB-Q 5,000 unit Q8HR RUBI Administration Hydrophilic Ointment 1 applic 10/10/18 17:53 Vaseline Lip Therapy TP Q2HR PRN Dry Lips Sodium Chloride 100 mls @ 999 mls/hr 11/12/18 09:51 Nacl 0.9% IV CHON PRN Hypotension Ipratropium [place] 0.5 mg 11/20/18 22:07 Atrovent IH Q4HRT PRN Shortness Of Breath Lansoprazole 30 mg 10/15/18 10:00 11/23/18 22:13 Prevacid Solutab FEEDTUBE 30 mg BID RUBI Administration Metoprolol Tartrate 5 mg 10/18/18 14:05 11/21/18 21:32 Lopressor IV 5 mg Q6HR PRN Administration Tachyarrhythmias Metoprolol Tartrate 25 mg 11/20/18 13:31 11/24/18 08:08 Lopressor PO 25 mg Q6H RUBI Administration Multi-Ingred Cream/Lotion/Oil/Oint 1 applic 10/10/18 17:53 Artificial Tears Ophth Oint OU Q4HR PRN Dry Eye(s) Multivitamins 1 each 10/11/18 10:00 11/24/18 09:37 Theragran Tab PO 1 each DAILY RUBI Administration Nystatin 100,000 unit 11/17/18 14:00 11/24/18 08:08 Nystatin PO 11/24/18 13:59 100,000 unit TID RUBI Administration Ondansetron HCl 4 mg 11/12/18 15:05 Zofran IV Q8H PRN N/V unrelieved by Buddy Faye Hydrophilic Mucilloid 1 each 11/08/18 18:00 11/24/18 09:48 Metamucil PO 1 each QDAY RUBI Administration Ritonavir 100 mg 10/30/18 18:00 11/24/18 09:48 Norvir PO 100 mg QDAY RUBI Administration Sertraline HCl 50 mg 11/21/18 19:52 11/24/18 09:39 Zoloft PO 50 mg QDAY RUBI Administration Simple Syrup 15 ml 10/11/18 12:58 Simple Syrup FEEDTUBE PRN PRN Hypoglycemia Simple Syrup 30 ml 10/11/18 12:58 Simple Syrup FEEDTUBE PRN PRN Hypoglycemia Sodium Bicarbonate 325 mg 10/11/18 12:58 Sodium Bicarbonate FEEDTUBE PRN PRN For Clogged Feeding Tube Sodium Chloride 10 ml 10/10/18 22:00 11/24/18 09:53 Sodium Chloride Flush Syringe 10 Ml IV 10 ml BID RUBI Administration Sodium Chloride 10 ml 10/10/18 18:12 Sodium Chloride Flush Syringe 10 Ml IV PRN PRN LINE FLUSH Tenofovir Disoproxil Fumarate 300 mg 10/30/18 17:45 11/23/18 17:06 Viread PO Not Given Q96H RUBI
[2018-11-24] MEDS: PREVACID SOLUTAB FEEDTUBE SCH ×2 (11:19→22:40)
[2018-11-25] MEDS: LOPRESSOR PO SCH ×4 (00:32→17:44)
[2018-11-25] MEDS: HEPARIN SUB-Q SCH ×3 (06:23→23:09)
[2018-11-25] MEDS: EMTRIVA PO SCH (09:23)
[2018-11-25] MEDS: ZOLOFT PO SCH (09:23)
[2018-11-25] MEDS: PREVACID SOLUTAB FEEDTUBE SCH ×2 (09:23→23:09)
[2018-11-25] MEDS: PREZISTA PO SCH (09:23)
[2018-11-25] MEDS: TIVICAY PO SCH (09:23)
[2018-11-25] MEDS: THERAGRAN Tab PO SCH (09:23)
[2018-11-25] MEDS: SODIUM CHLORIDE FLUSH SYRINGE 10 ML IV SCH ×2 (09:24→23:10)
[2018-11-25] MEDS: NORVIR PO SCH (09:24)
[2018-11-25] MEDS: MEPRON PO SCH (09:24)
[2018-11-25] MEDS: METAMUCIL PO SCH (09:24)
--- NOTE | 2018-11-25 09:41 | Progress Note ---
Assessment and Plan Assessment and plan: Patient is 43 YO Male with HIV, hypertension, previous stroke, Nicotine Dependence, presents to ED for evaluation. Patient was confused and lethargic and unable to provide history. He was seen and evaluated in ED and found to be in distress and unable to protect his airway and was therefore intubated, placed on ventilator in ER then admitted Neuro ams acute metabolic encephalopathy improving /Acute CVA with Bilateral infarcts with edema Consulted Neurology, he was evaluated by DR. Valentine. mentation is improved, and this is likely his new baseline Dysphagia/ moderate malnutrition -MBS 10/23, recommended pureed with nectar thickened liquids, continue this diet -rn family practice consulted Hematology Anemia- stable, thrombocytopenia, leukocytosis, coagulopathy; now resolved -Status post platelet (3 units) and prbc (6 units ) transfusion, the patient had only few schistocytes on smear, ADAMS13 91% activity , plt count has recovered ID HIV/AIDS, CD4 count 3, HIV viral load 320,000 acute bacterial PNA, CMV viremia toxo neg, CSF neg ,Whole blood cmv PCR was positive at 1374 abx and anti- antiviral per ID,continues to have fever on and off -he was put back on HAART, he likely has component of IRIS causing fevers and sob -most recent cxr 11/12 show no infiltrate, dw ID oral thrus, nystatin swish and spit ordered x 7 days FEN/Renal SHRUTHI- ATN, no signs of renal recovery, now ESRD, Hyperkalemia, urinary retention Severe protein calorie malnutrition sp SPC on 10/12 cont HD per nephrology, no signs of renal recovery -now afebrile, spoke to vas sx about PC placement -dietitican consult Pulm acute hypoxic resp failure on MV> 96 hours self extubated 10/16, continue supplemental oxygen prn CTA neg for PE on 11/06 CVS /Hypertensive urgency and acute systolic CHF He was treated with Cardene drip which was weaned off. Optimize medications for CHF on coreg, no mik due to high K, fluid removal by dialysis Skin Stage 2 sacral wound decub, and bilat buttock wounds left buttocks area. The wound is measured at 9.0x2.5. 25% slough noticed to the wound sacral area. The wound is measured at 3.5x3.5.80% necrotic tissue noticed to the wound right buttocks area. The wound is measured at 5.0x3.0. no evidence of infection, but wounds are necrotic, cont wound care Depression MH input appreciated, he is improving Severe debility; he was previously refusing PT and not participating, I spoke to the patient . He agrees to be more complaints of physical therapy. he is now participating with PT, contractures are improving DVT ppx- heparin sq Dispo: Needs HD and home health set up before he can be dc History Interval history: No chest pain No SOB currently Hospitalist Physical - Physical exam Narrative exam: Gen: Not in acute distress, very ill looking, lying in bed, cachetic HEENT: Normocephalic, atraumatic Neck:Supple, no JVD Heart: S1 and S2 reg, no murmurs, rubs or gallop Lungs: Clear no crackles Abd: soft, non tender, non distended, normal BS Ext: No edema, no clubbing, no cyanosis Neuro: Awake, no focal signs, moves all extremities - Constitutional Vitals: Temp Pulse Resp BP Pulse Ox 97.8 F 103 H 17 134/92 100 11/25/18 04:38 11/25/18 06:22 11/25/18 06:00 11/25/18 06:22 11/25/18 04:38 General appearance: Present: no acute distress Results - Labs CBC & Chem 7: 11/24/18 00:09 11/24/18 10:53 Labs: Laboratory Last Values WBC 8.1 K/mm3 (4.5-11.0) 11/24/18 00:09 RBC 2.54 M/mm3 (3.65-5.03) L 11/24/18 00:09 Hgb 7.4 gm/dl (11.8-15.2) L 11/24/18 00:09 Hct 23.5 % (35.5-45.6) L 11/24/18 00:09 MCV 92 fl (84-94) 11/24/18 00:09 MCH 29 pg (28-32) 11/24/18 00:09 MCHC 32 % (32-34) 11/24/18 00:09 RDW 20.2 % (13.2-15.2) H 11/24/18 00:09 Plt Count 206 K/mm3 (140-440) 11/24/18 00:09 Lymph % (Auto) Grain [employer]or 11/24/18 00:09 Emmet % (Auto) [employer]rain [employer]or 11/24/18 00:09 Eos % (Auto) [employer]or 11/24/18 00:09 Baso % (Auto) [employer] 11/24/18 00:09 Lymph # [employer]rain [employer]or 11/24/18 00:09 Emmet # Grain [employer]or 11/24/18 00:09 Eos # Grain [employer]or 11/24/18 00:09 Baso # Grain Processor 11/24/18 00:09 Add Manual Diff Complete 11/24/18 00:09 Total Counted 100 11/24/18 00:09 Seg Neutrophils % Grain [employer]or 11/24/18 00:09 Seg Neuts % (Manual) 71.0 % (40.0-70.0) H 11/24/18 00:09 Band Neutrophils % 6.0 % 11/24/18 00:09 Lymphocytes % (Manual) 8.0 % (13.4-35.0) L 11/24/18 00:09 Reactive Lymphs % (Man) 0 % 11/24/18 00:09 Monocytes % (Manual) 10.0 % (0.0-7.3) H 11/24/18 00:09 Eosinophils % (Manual) 5.0 % (0.0-4.3) H 11/24/18 00:09 Basophils % (Manual) 0 % (0.0-1.8) 11/24/18 00:09 Metamyelocytes % 0 % 11/24/18 00:09 Myelocytes % 0 % 11/24/18 00:09 Promyelocytes % 0 % 11/24/18 00:09 Blast Cells % 0 % 11/24/18 00:09 Nucleated RBC % 25.0 % (0.0-0.9) H 11/24/18 00:09 Seg Neutrophils # Grain Processor 11/24/18 00:09 Seg Neutrophils # Man 5.8 K/mm3 (1.8-7.7) 11/24/18 00:09 Band Neutrophils # 0.5 K/mm3 11/24/18 00:09 Abs Lymphs (Manual) 267 cells/uL (850-3900) L 10/11/18 17:36 Lymphocytes # (Manual) 0.6 K/mm3 (1.2-5.4) L 11/24/18 00:09 Abs React Lymphs (Man) 0.0 K/mm3 11/24/18 00:09 Monocytes # (Manual) 0.8 K/mm3 (0.0-0.8) 11/24/18 00:09 Eosinophils # (Manual) 0.4 K/mm3 (0.0-0.4) 11/24/18 00:09 Basophils # (Manual) 0.0 K/mm3 (0.0-0.1) 11/24/18 00:09 Metamyelocytes # 0.0 K/mm3 11/24/18 00:09 Myelocytes # 0.0 K/mm3 11/24/18 00:09 Promyelocytes # 0.0 K/mm3 11/24/18 00:09 Blast Cells # 0.0 K/mm3 11/24/18 00:09 Pathologist Review 10/15/18 03:14 WBC Morphology Not Reportable 11/24/18 00:09 Hypersegmented Neuts Not Reportable 11/24/18 00:09 Hyposegmented Neuts Not Reportable 11/24/18 00:09 Hypogranular Neuts Not Reportable 11/24/18 00:09 Smudge Cells Not Reportable 11/24/18 00:09 Toxic Granulation Not Reportable 11/24/18 00:09 Toxic Vacuolation Not Reportable 11/24/18 00:09 Dohle Bodies Not Reportable 11/24/18 00:09 Pelger-Huet Anomaly Not Reportable 11/24/18 00:09 Kartik Rods Not Reportable 11/24/18 00:09 Platelet Estimate Appears normal 11/24/18 00:09 Clumped Platelets Not Reportable 11/24/18 00:09 Plt Clumps, EDTA Not Reportable 11/24/18 00:09 Large Platelets Not Reportable 11/24/18 00:09 Giant Platelets Not Reportable 11/24/18 00:09 Platelet Satelliting Not Reportable 11/24/18 00:09 Plt Morphology Comment Not Reportable 11/24/18 00:09 RBC Morphology Not Reportable 11/24/18 00:09 Dimorphic RBCs Not Reportable 11/24/18 00:09 Polychromasia Few 11/24/18 00:09 Hypochromasia 1+ 11/24/18 00:09 Poikilocytosis Not Reportable 11/24/18 00:09 Anisocytosis 1+ 11/24/18 00:09 Microcytosis Rare 11/24/18 00:09 Macrocytosis Not Reportable 11/24/18 00:09 Spherocytes Not Reportable 11/24/18 00:09 Pappenheimer Bodies Not Reportable 11/24/18 00:09 Sickle Cells Not Reportable 11/24/18 00:09 Target Cells Few 11/24/18 00:09 Tear Drop Cells Not Reportable 11/24/18 00:09 Ovalocytes Not Reportable 11/24/18 00:09 Stomatocytes Few 11/10/18 06:54 Helmet Cells Not Reportable 11/24/18 00:09 [place] Bodies Not Reportable 11/24/18 00:09 [place] Rings Not Reportable 11/24/18 00:09 Jani Cells Not Reportable 11/24/18 00:09 Bite Cells Not Reportable 11/24/18 00:09 Crenated Cell Not Reportable 11/24/18 00:09 Elliptocytes Not Reportable 11/24/18 00:09 Acanthocytes (Spur) Not Reportable 11/24/18 00:09 Rouleaux Not Reportable 11/24/18 00:09 Hemoglobin C Crystals Not Reportable 11/24/18 00:09 Schistocytes Not Reportable 11/24/18 00:09 Malaria parasites Not Reportable 11/24/18 00:09 Jv Bodies Not Reportable 11/24/18 00:09 Hem Pathologist Commnt No 11/24/18 00:09 PT 17.7 Sec. (12.2-14.9) H 11/06/18 13:18 INR 1.36 (0.87-1.13) H 11/06/18 13:18 APTT 30.6 Sec. (24.2-36.6) 11/06/18 13:18 Thrombin Time 16.9 Sec. (15.1-19.6) 10/10/18 15:02 Heparin Anti-Xa Level < 0.10 U.I./ml (0.3-0.7) L 11/07/18 21:31 Heparin Anti-Xa, Unfract Negative (Negative) 10/25/18 05:59 POC ABG pH 7.455 (7.35-7.45) H 11/23/18 13:46 POC ABG pCO2 32.0 (35-45) L 10/21/18 09:49 POC ABG pO2 111 (80-105) H 11/23/18 13:46 POC ABG HCO3 17.3 (22-26 mml/L) 11/23/18 13:46 POC ABG Total CO2 18 (23-27mmol/L) 11/23/18 13:46 POC ABG O2 Sat 99 11/23/18 13:46 POC ABG Base Excess -7 ((-2) - (+3)mmol/L) 11/23/18 13:46 FiO2 21 % 11/23/18 13:46 Sodium 139 mmol/L (137-145) 11/24/18 10:53 Potassium 3.6 mmol/L (3.6-5.0) 11/24/18 10:53 Chloride 97.4 mmol/L (98-107) L 11/24/18 10:53 Carbon Dioxide 17 mmol/L (22-30) L 11/24/18 10:53 Anion Gap 28 mmol/L 11/24/18 10:53 BUN 34 mg/dL (9-20) H 11/24/18 10:53 Creatinine 5.7 mg/dL (0.8-1.5) H 11/24/18 10:53 Estimated GFR 13 ml/min 11/24/18 10:53 BUN/Creatinine Ratio 6 % 11/24/18 10:53 Glucose 177 mg/dL (75-100) H 11/24/18 10:53 POC Glucose 110 (70-105) H 11/23/18 13:35 Osmolality 338 Mosm/kg 10/11/18 17:35 Lactic Acid 1.80 mmol/L (0.7-2.0) 10/12/18 05:59 Uric Acid 13.4 mg/dL (3.5-7.6) H 10/11/18 17:36 Calcium 8.0 mg/dL (8.4-10.2) L 11/24/18 10:53 Phosphorus 6.50 mg/dL (2.5-4.5) H 11/24/18 10:53 Magnesium 3.10 mg/dL (1.7-2.3) H 10/18/18 05:03 Iron 147 ug/dL (49-181) 10/11/18 17:36 TIBC 236 mcg/dL (250-450) L 10/11/18 17:36 Ferritin 49839.0 ng/mL (13.0-400.0) H 10/11/18 17:35 Total Bilirubin 0.30 mg/dL (0.1-1.2) 11/19/18 05:31 Direct Bilirubin 0.2 mg/dL (0-0.2) 10/16/18 04:07 Indirect Bilirubin 0.3 mg/dL 10/16/18 04:07 AST 26 units/L (5-40) 11/19/18 05:31 ALT 11 units/L (7-56) 11/19/18 05:31 Alkaline Phosphatase 74 units/L (35-129) 11/19/18 05:31 Ammonia 25.0 umol/L (25-60) 10/17/18 14:59 Lactate Dehydrogenase 925 units/L (91-180) H 10/22/18 05:51 Troponin T 0.357 ng/mL (0.00-0.029) H* 11/06/18 05:54 NT-Pro-B Natriuret Pep 35416 pg/mL (0-450) H 10/10/18 15:42 Total Protein 7.6 g/dL (6.3-8.2) 11/19/18 05:31 Albumin 2.6 g/dL (3.9-5) L 11/19/18 05:31 Albumin/Globulin Ratio 0.5 % 11/19/18 05:31 Triglycerides 306 mg/dL (2-149) H 11/05/18 11:29 Cholesterol 145 mg/dL (50-199) 11/05/18 11:29 LDL Cholesterol Direct 89 mg/dL (50-130) 11/05/18 11:29 HDL Cholesterol 25 mg/dL (40-59) L 11/05/18 11:29 Cholesterol/HDL Ratio 5.80 % 11/05/18 11:29 Serotonin Release Assay See scanned result 10/25/18 05:59 Vitamin B12 912.3 pg/mL (211-911) H 10/14/18 08:51 Folate 8.32 ng/mL (7.3-26.0) 10/14/18 08:51 PTH Intact 118.0 pg/mL (15-65) H 11/24/18 10:53 Urine Creatinine 30.8 mg/dL (0.1-20.0) H 10/13/18 04:43 Urine Sodium 106 mmol/L 10/13/18 04:43 Urine Total Protein 75 mg/dL (5-11.8) H 10/13/18 04:43 CSF Appearance Clear 10/16/18 15:00 CSF Color Colorless 10/16/18 15:00 CSF WBC 4 /mm3 (1-10) 10/16/18 15:00 CSF RBC 113 /mm3 (0-0) 10/16/18 15:00 CSF Seg Neutrophils 8.0 % (0-6) 10/16/18 15:00 CSF Lymphocytes % 76.0 % (40-80) 10/16/18 15:00 CSF Reactive Lymphs 2.0 % 10/16/18 15:00 CSF Monocytes % 14.0 % (15-45) 10/16/18 15:00 CSF Eosinophils % 0 % 10/16/18 15:00 CSF Basophils 0 % 10/16/18 15:00 CSF Pathologist Review C 10/16/18 15:00 CSF Glucose 73 mg/dL 10/16/18 15:00 CSF Total Protein 55 mg/dL 10/16/18 15:00 CSF VDRL Nonreactive (Nonreactive) 10/16/18 15:00 Random Vancomycin 21.1 ug/mL (0-40.0) 11/20/18 06:15 Immunofix Electrophor see below 10/11/18 17:36 RENO Screen Negative (Negative) 10/21/18 15:07 Proteinase 3 (PR3) Ab <1.0 AI (<1.0) 10/21/18 15:07 Myeloperoxidase Ab <1.0 AI (<1.0) 10/21/18 15:07 Heparin-induced Plt Ab Negative (Negative) 10/25/18 05:59 UF Heparin High Dose 0 % Release 10/25/18 05:59 VJ UFH Low Dose 0.1 0 % Release 10/25/18 05:59 VJ UFH Low Dose 0.5 14 % Release 10/25/18 05:59 Lymph Enumerat CD4/CD8 0.01 (0.86-5.00) L 10/11/18 17:36 % CD3 Cells 85 % (57-85) 10/11/18 17:36 Absolute CD3 Count 226 cells/uL (840-3060) L 10/11/18 17:36 % CD4 Cells 1 % (30-61) L 10/11/18 17:36 Absolute CD4 Count 3 cells/uL (490-1740) L 10/11/18 17:36 % CD8 Cells 82 % (12-42) H 10/11/18 17:36 Absolute CD8 Count 228 cells/uL (180-1170) 10/11/18 17:36 % CD19 Cells 6 % (6-29) 10/11/18 17:36 Absolute CD19 Count 16 cells/uL (110-660) L 10/11/18 17:36 RPR Titer 1:32 10/11/18 17:37 RPR Reactive (Nonreactive) 10/11/18 17:37 T.pallidum Ab (FTA-ABS) Reactive (Nonreactive) H 10/12/18 Unknown 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 See scanned result 10/24/18 17:47 Hepatitis A IgM Ab Non-reactive (NonReactive) 11/21/18 09:58 Hep Bs Antigen Non-reactive (Negative) 11/21/18 09:58 Hep B Core IgM Ab Non-reactive (NonReactive) 11/21/18 09:58 Hepatitis C Antibody Non-reactive (NonReactive) 11/21/18 09:58 HIV-1 RNA PCR copies/ml [id number] Copies/mL H 10/11/18 17:36 HIV-1 RNA (PCR) log 5.51 Log cps/mL H 10/11/18 17:36 HIV-1 Genotyping See scanned results 10/29/18 19:48 Toxoplasma IgG Ab <7.20 IU/mL (<7.20) 10/13/18 07:54 Miscellaneous Test Flexitest 1 10/31/18 06:43 Blood Type A POSITIVE 11/08/18 11:28 Antibody Screen Negative 11/08/18 11:28 Crossmatch See Detail 11/08/18 11:28 Active Medications - Current Medications Current Medications: Generic Name Dose Route Start Last Admin Trade Name Freq PRN Reason Stop Dose Admin Acetaminophen 500 mg 10/16/18 10:02 11/17/18 00:29 Tylenol PO 500 mg Q6H PRN Administration Fever >101 Albumin Human 25 gm 11/04/18 16:14 Alburx 25% (Albumin) IV CHON PRN Hypotension Albuterol 2.5 mg 11/21/18 07:24 Proventil IH Q4HRT PRN Shortness Of Breath Lipase/Protease/Amylase 1 each 10/11/18 12:58 Pancreaze 10,500 Unit FEEDTUBE PRN PRN For Clogged Feeding Tube Atovaquone 1,500 mg 11/14/18 10:00 11/25/18 09:24 Mepron PO 1,500 mg QDAY RUBI Administration Darunavir 800 mg 10/30/18 18:00 11/25/18 09:23 Prezista PO 800 mg QDAY RUBI Administration Emtricitabine 200 mg 11/01/18 10:00 11/25/18 09:23 Emtriva PO 200 mg Q48HR RUBI Administration Epoetin Dany 20,000 unit 11/12/18 15:00 11/23/18 17:10 Procrit IV 20,000 unit .MWF RUBI Administration Heparin Sodium (Porcine) 5,000 unit 11/04/18 16:15 Heparin IV CHON PRN hemodialysis Heparin Sodium (Porcine) 5,000 unit 11/07/18 22:00 11/25/18 06:23 Heparin SUB-Q 5,000 unit Q8HR RUBI Administration Hydrophilic Ointment 1 applic 10/10/18 17:53 Vaseline Lip Therapy TP Q2HR PRN Dry Lips Sodium Chloride 100 mls @ 999 mls/hr 11/12/18 09:51 Nacl 0.9% IV CHON PRN Hypotension Ipratropium [place] 0.5 mg 11/20/18 22:07 Atrovent IH Q4HRT PRN Shortness Of Breath Lansoprazole 30 mg 10/15/18 10:00 11/25/18 09:23 Prevacid Solutab FEEDTUBE 30 mg BID RUBI Administration Metoprolol Tartrate 5 mg 10/18/18 14:05 11/21/18 21:32 Lopressor IV 5 mg Q6HR PRN Administration Tachyarrhythmias Metoprolol Tartrate 25 mg 11/24/18 13:00 11/25/18 06:22 Lopressor PO 25 mg Q6HR RUBI Administration Multi-Ingred Cream/Lotion/Oil/Oint 1 applic 10/10/18 17:53 Artificial Tears Ophth Oint OU Q4HR PRN Dry Eye(s) Multivitamins 1 each 10/11/18 10:00 11/25/18 09:23 Theragran Tab PO 1 each DAILY RUBI Administration Ondansetron HCl 4 mg 11/12/18 15:05 Zofran IV Q8H PRN N/V unrelieved by Buddy Faye Hydrophilic Mucilloid 1 each 11/08/18 18:00 11/25/18 09:24 Metamucil PO 1 each QDAY RUBI Administration Ritonavir 100 mg 10/30/18 18:00 11/25/18 09:24 Norvir PO 100 mg QDAY RUBI Administration Sertraline HCl 50 mg 11/21/18 19:52 11/25/18 09:23 Zoloft PO 50 mg QDAY RUBI Administration Simple Syrup 15 ml 10/11/18 12:58 Simple Syrup FEEDTUBE PRN PRN Hypoglycemia Simple Syrup 30 ml 10/11/18 12:58 Simple Syrup FEEDTUBE PRN PRN Hypoglycemia Sodium Bicarbonate 325 mg 10/11/18 12:58 Sodium Bicarbonate FEEDTUBE PRN PRN For Clogged Feeding Tube Sodium Chloride 10 ml 10/10/18 22:00 11/25/18 09:24 Sodium Chloride Flush Syringe 10 Ml IV 10 ml BID RUBI Administration Sodium Chloride 10 ml 10/10/18 18:12 Sodium Chloride Flush Syringe 10 Ml IV PRN PRN LINE FLUSH Tenofovir Disoproxil Fumarate 300 mg 10/30/18 17:45 11/23/18 17:06 Viread PO Not Given Q96H RUBI Nutrition/Malnutrition Assess - Dietary Evaluation Nutrition/Malnutrition Findings: Nutrition Notes Start: 10/11/18 11:14 Freq: Status: Active Protocol: Document 11/22/18 10:24 LM (Rec: 11/22/18 10:34 LM [id number]) Co-Sign 11/22/18 10:24 LP Nutrition Notes Initial or Follow up Reassessment Current Diagnosis Acute Kidney Injury,CKD(stage I-IV),Hypertension,Heart Failure,Stroke Other Pertinent Diagnosis Depression,Dysphagia,on HD, Acute encephalopathy,HIV/AIDS, Syphilis Current Diet NPO Labs/Tests Reviewed Pertinent Medications Reviewed Height 5 ft 9 in Weight 47.9 kg Rex Body Weight (kg) 72.72 BMI 15.5 Subjective/Other Information Pt did not receive breakfast this morning due to being made NPO yesterday for procedure. Procedure did not happen and is scheduled for tomorrow. Pureed diet ordered for dinner tonight. Pt stated he feels hungry. Percent of energy/protein needs met: 0%/0% Burn Absent Trauma Absent #2 Nutrition Diagnosis Malnutrition Diagnosis Progress(for reassessment Continues documentation) #1 Nutrition Diagnosis Inadequate oral intake Diagnosis Progress(for reassessment Continues documentation) Is patient on ventilator? No Is Patient Ambulatory and/or Out of Bed No REE-([place]-confined to bed) 1646.712 Kcal/Kg value to use for calculation 40 Approximate Energy Requirements Using 1916 kcal/Kg Calculation Used for Recommendations Kcal/kg Additional Notes Pro needs 1.2-1.5g/k-72g/ day Fluid needs 1ml/kcal Nutrition Intervention Change Diet Order: Pureed diet Add Supplement/Snack (indicate name/kcal Nepro 1 daily /protein ) Provides kCal: 425 Provides Protein (gm) 19 Goal #1 Meet at least 75% of calorie and protein needs via PO and ONS intakes Anticipated Discharge Needs: Pureed, Renal diet Follow-Up By: 11/26/18 Additional Comments F/U fro PO and ONS intakes, add ONS back to diet
--- NOTE | 2018-11-25 17:28 | Progress Note ---
Subjective Principal diagnosis: anemia Objective - Vital Signs Vital signs: Vital Signs - 12hr 11/25/18 11/25/18 11/25/18 06:00 06:22 11:03 Temperature 98.0 F Pulse Rate 103 H 109 H Respiratory 12 Rate Respiratory 17 Rate [Bilateral Leg] Blood Pressure 134/92 123/85 O2 Sat by Pulse 100 Oximetry 11/25/18 11/25/18 12:44 16:20 Temperature 97.8 F Pulse Rate 109 H 101 H Respiratory 14 Rate Respiratory Rate [Bilateral Leg] Blood Pressure 123/85 129/89 O2 Sat by Pulse 100 Oximetry - Lab 11/24/18 00:09 11/24/18 10:53 Most recent lab results Calcium 8.0 mg/dL (8.4-10.2) L 11/24/18 10:53 Phosphorus 6.50 mg/dL (2.5-4.5) H 11/24/18 10:53 Magnesium 3.10 mg/dL (1.7-2.3) H 10/18/18 05:03 Urine Creatinine 30.8 mg/dL (0.1-20.0) H 10/13/18 04:43 Urine Sodium 106 mmol/L 10/13/18 04:43 Urine Total Protein 75 mg/dL (5-11.8) H 10/13/18 04:43 Medications & Allergies - Medications Allergies/Adverse Reactions: Allergies Sulfa (Sulfonamide Antibiotics) Allergy (Verified 10/10/18 16:54) Unknown Home Medications: Home Medications Medication Instructions Recorded Confirmed Last Taken Type Acetaminophen [Tylenol] 1,000 mg PO Q6HR 10/10/18 10/10/18 Unknown History Amlodipine Besylate [Norvasc] 10 mg PO QDAY 10/10/18 10/10/18 Unknown History Aspirin [Adult Aspirin] 81 mg PO DAILY 10/10/18 10/10/18 Unknown History Atorvastatin [Lipitor Tab] 80 mg PO DAILY 10/10/18 10/10/18 Unknown History Losartan [Cozaar] 100 mg PO QDAY 10/10/18 10/10/18 Unknown History Multivitamin [Multiple Vitamins] 1 each PO DAILY 10/10/18 10/10/18 Unknown History hydroCHLOROthiazide [HCTZ] 25 mg PO QDAY 10/10/18 10/10/18 Unknown History Active Medications: Generic Name Dose Route Start Last Admin Trade Name Freq PRN Reason Stop Dose Admin Acetaminophen 500 mg 10/16/18 10:02 11/17/18 00:29 Tylenol PO 500 mg Q6H PRN Administration Fever >101 Albumin Human 25 gm 11/04/18 16:14 Alburx 25% (Albumin) IV CHON PRN Hypotension Albuterol 2.5 mg 11/21/18 07:24 Proventil IH Q4HRT PRN Shortness Of Breath Lipase/Protease/Amylase 1 each 10/11/18 12:[address] 10,500 Unit FEEDTUBE PRN PRN For Clogged Feeding Tube Atovaquone 1,500 mg 11/14/18 10:00 11/25/18 09:24 Mepron PO 1,500 mg QDAY RUBI Administration Darunavir 800 mg 10/30/18 18:00 11/25/18 09:23 Prezista PO 800 mg QDAY RUBI Administration Emtricitabine 200 mg 11/01/18 10:00 11/25/18 09:23 Emtriva PO 200 mg Q48HR RUBI Administration Epoetin Dany 20,000 unit 11/12/18 15:00 11/23/18 17:10 Procrit IV 20,000 unit .MWF RUBI Administration Heparin Sodium (Porcine) 5,000 unit 11/04/18 16:15 Heparin IV CHON PRN hemodialysis Heparin Sodium (Porcine) 5,000 unit 11/07/18 22:00 11/25/18 14:41 Heparin SUB-Q 5,000 unit Q8HR RUBI Administration Hydrophilic Ointment 1 applic 10/10/18 17:53 Vaseline Lip Therapy TP Q2HR PRN Dry Lips Sodium Chloride 100 mls @ 999 mls/hr 11/12/18 09:51 Nacl 0.9% IV CHON PRN Hypotension Ipratropium [place] 0.5 mg 11/20/18 22:07 Atrovent IH Q4HRT PRN Shortness Of Breath Lansoprazole 30 mg 10/15/18 10:00 11/25/18 09:23 Prevacid Solutab FEEDTUBE 30 mg BID RUBI Administration Metoprolol Tartrate 5 mg 10/18/18 14:05 11/21/18 21:32 Lopressor IV 5 mg Q6HR PRN Administration Tachyarrhythmias Metoprolol Tartrate 25 mg 11/24/18 13:00 11/25/18 12:44 Lopressor PO 25 mg Q6HR RUBI Administration Multi-Ingred Cream/Lotion/Oil/Oint 1 applic 10/10/18 17:53 Artificial Tears Ophth Oint OU Q4HR PRN Dry Eye(s) Multivitamins 1 each 10/11/18 10:00 11/25/18 09:23 Theragran Tab PO 1 each DAILY RUBI Administration Ondansetron HCl 4 mg 11/12/18 15:05 Zofran IV Q8H PRN N/V unrelieved by Buddy Faye Hydrophilic Mucilloid 1 each 11/08/18 18:00 11/25/18 09:24 Metamucil PO 1 each QDAY RUBI Administration Ritonavir 100 mg 10/30/18 18:00 11/25/18 09:24 Norvir PO 100 mg QDAY RUBI Administration Sertraline HCl 50 mg 11/21/18 19:52 11/25/18 09:23 Zoloft PO 50 mg QDAY RUBI Administration Simple Syrup 15 ml 10/11/18 12:58 Simple Syrup FEEDTUBE PRN PRN Hypoglycemia Simple Syrup 30 ml 10/11/18 12:58 Simple Syrup FEEDTUBE PRN PRN Hypoglycemia Sodium Bicarbonate 325 mg 10/11/18 12:58 Sodium Bicarbonate FEEDTUBE PRN PRN For Clogged Feeding Tube Sodium Chloride 10 ml 10/10/18 22:00 11/25/18 09:24 Sodium Chloride Flush Syringe 10 Ml IV 10 ml BID RUBI Administration Sodium Chloride 10 ml 10/10/18 18:12 Sodium Chloride Flush Syringe 10 Ml IV PRN PRN LINE FLUSH Tenofovir Disoproxil Fumarate 300 mg 10/30/18 17:45 11/23/18 17:06 Viread PO Not Given Q96H RUBI
[2018-11-26] MEDS: LOPRESSOR PO SCH ×4 (01:00→20:29)
[2018-11-26] MEDS: HEPARIN SUB-Q SCH ×3 (05:59→22:17)
[2018-11-26 06:49] LABS: Hematocrit 25.4 % (35.5-45.6); Hemoglobin 7.9 gm/dl (11.8-15.2); Mean Corpuscular HGB Conc 31 % (32-34); Mean Corpuscular Volume 90 fl (84-94); Platelet Count 211 K/mm3 (140-440); Red Blood Count 2.81 M/mm3 (3.65-5.03)
[2018-11-26 07:05] LABS: Calcium 8.6 mg/dL (8.4-10.2)
--- NOTE | 2018-11-26 07:59 | Hem/Onc Progress Note ---
Assessment and Plan 1. Anemia. At admission, hemoglobin was 8.1, later low and s/p Transfusion support. 11/21 - hb 7.9 2. Platelets at admission was 20. 4/10 - plt normal 3. White cell count was elevated. 11/21 - wbc normal 4. PT/INR h/o slightly elevated. 5. Renal failure. nephrology following 6. ALT elevated. 7. The patient has multiple medical issues. HIV - Id following 10/13 - plt better - s/p transfusion d/w dr rain and dr carrillo 10/14 - low plt - rasta ctive bleed suprapubic catheter 10/15 - plt were rising and again going down' pt had got plt transfusion LDH high - [id number] ordered smear - ordererd LDH may be high in other causes too - renal etc 10/16 - d/w path - not many schistocytes on smear - ADAMTS 13 ordered extubated 10/17 - plt low - path review ordered d/w armin monsalve 10/18 - path report pending plt low - but no active bleeding 10/19 - pt more alert - follows commands no bleeding 10/20 pt SOB - d/w Dr Monsalve and RN plt low - but no bleeding NGT+ more awake 10/21 - pt in [facility] plt >100 - more awake 10/22 - clinically better - moves all 4 limbs 10/23 - clinically stable - prbc suport 10/24 - as per RN -pt passed barium - for thickened diet pt has suprapubic got PRBC plt improving 10/25 - clinically better no active bleeding 10/26 - moving all extremity -communicating repeat cbc 10/27 - labs better - clinically improving 10/28 - plt now normal - hb better - s/p PRBC recent CKD may have a role 10/29 - pt clinically stable - telesales specialist abn - electrolyte abn 10/30 - cbc improving - pt had question reg rectal tube - he will d/w other MDs 10/31 - plt better - hb better - OP follow up an option 11/01 - labs follow up 11/02 anemia d/w rn - rectal tube - decubiti suprapubic HD cath change planned 11/03/2018 pt getting HD rectal tube present 11/04- on o2 will follow labs gets HD 11/05 anemia slight SOB - on o2 HD cath 11/06 - d/w dr Shen reg pt anemia HD cath fever issues 11/07 CT shows pneumonia hb better 11/08 - anemia - d/w dr brewster - PRBC and follow 11/09 - pt less SOB s/p prbc d/w RN 11/10 hb better still has rectal tube 11/12 pt hb better gets HD - plt normal HIv - Id following 11/13 anemia - multifactorial low plt - resolved renal failure - HD pneumonia HIV 11/14 anemia d/w dr Brewster - Physical therapy off rectal tube HD - procrit 11/19 clinically stable hb 7.7 wbc and plt normal HIV ID CKD - nephrology 11/21 hb better wbc and plt normal SHRUTHI - nephrology following OP follow up - placement eval placement being looked into 11/26 clinically stable anemia - likely HIV - CKD related wbc and plt normal no bleeding ID following HIV OP follow up an option will follow PRN to see that the labs remain stable - Patient Problems (1) Thrombocytopenia associated with AIDS Current Visit: Yes Status: Acute (2) Anemia Current Visit: Yes Status: Acute Qualifiers: Anemia type: due to chronic kidney disease Chronic kidney disease stage: unspecified stage Qualified Code(s): N18.9 - Chronic kidney disease, unspecified; D63.1 - Anemia in chronic kidney disease Subjective Date of service: 11/26/18 Principal diagnosis: anemia - HIV Interval history: no bleeding Objective - Constitutional Vitals: Last Vital Signs Temp 98.8 F 11/26/18 05:06 Pulse 106 H 11/26/18 05:06 Resp 18 11/26/18 05:06 BP 132/92 11/26/18 05:06 Pulse Ox 100 11/26/18 05:06 Pain Intensity (0-10): denies any pain General appearance: no acute distress, cachectic Performance status: 3-limited selfcare - EENT Eyes: EOM intact ENT: hearing intact Lymph node exam: negative cervical - Neck Neck: normal ROM - Respiratory Respiratory effort: Positive: normal Respiratory: bilateral: diminished (poor effort) - Cardiovascular Heart Sounds: Present: S1 & S2 Extremities: No edema - Gastrointestinal General gastrointestinal: Present: soft, non-tender Rectal Exam: deferred - Genitourinary Male genitourinary: Present: deferred - Integumentary Integumentary: warm - Musculoskeletal Musculoskeletal: generalized weakness - Neurologic Neurologic: moves all extremities - Labs Lab Results: Laboratory Results - last 24 hr 10/11/18 11/26/18 11/26/18 17:25 06:26 06:33 WBC 5.7 RBC 2.81 L Hgb 7.9 L Hct 25.4 L MCV 90 MCH 28 MCHC 31 L RDW 21.0 H Plt Count 211 Sodium 139 Potassium 4.0 Chloride 96.5 L Carbon Dioxide 20 L Anion Gap 27 BUN 51 H Creatinine 8.6 H D Estimated GFR 8 BUN/Creatinine Ratio 6 Glucose 110 H Calcium 8.6 Miscellaneous Test see below Medications & Allergies - Medications Allergies/Adverse Reactions: Allergies Sulfa (Sulfonamide Antibiotics) Allergy (Verified 10/10/18 16:54) Unknown Home Medications: Home Medications Medication Instructions Recorded Confirmed Last Taken Type Acetaminophen [Tylenol] 1,000 mg PO Q6HR 10/10/18 10/10/18 Unknown History Amlodipine Besylate [Norvasc] 10 mg PO QDAY 10/10/18 10/10/18 Unknown History Aspirin [Adult Aspirin] 81 mg PO DAILY 10/10/18 10/10/18 Unknown History Atorvastatin [Lipitor Tab] 80 mg PO DAILY 10/10/18 10/10/18 Unknown History Losartan [Cozaar] 100 mg PO QDAY 10/10/18 10/10/18 Unknown History Multivitamin [Multiple Vitamins] 1 each PO DAILY 10/10/18 10/10/18 Unknown History hydroCHLOROthiazide [HCTZ] 25 mg PO QDAY 10/10/18 10/10/18 Unknown History Active Medications: Generic Name Dose Route Start Last Admin Trade Name Freq PRN Reason Stop Dose Admin Acetaminophen 500 mg 10/16/18 10:02 11/17/18 00:29 Tylenol PO 500 mg Q6H PRN Administration Fever >101 Albumin Human 25 gm 11/04/18 16:14 Alburx 25% (Albumin) IV CHON PRN Hypotension Albuterol 2.5 mg 11/21/18 07:24 Proventil IH Q4HRT PRN Shortness Of Breath Lipase/Protease/Amylase 1 each 10/11/18 12:58 Pancrebecka Reed 10,500 Unit FEEDTUBE PRN PRN For Clogged Feeding Tube Atovaquone 1,500 mg 11/14/18 10:00 11/25/18 09:24 Mepron PO 1,500 mg QDAY RUBI Administration Darunavir 800 mg 10/30/18 18:00 11/25/18 09:23 Prezista PO 800 mg QDAY RUBI Administration Emtricitabine 200 mg 11/01/18 10:00 11/25/18 09:23 Emtriva PO 200 mg Q48HR RUBI Administration Epoetin Dany 20,000 unit 11/12/18 15:00 11/23/18 17:10 Procrit IV 20,000 unit .MWF RUBI Administration Heparin Sodium (Porcine) 5,000 unit 11/04/18 16:15 Heparin IV CHON PRN hemodialysis Heparin Sodium (Porcine) 5,000 unit 11/07/18 22:00 11/26/18 05:59 Heparin SUB-Q 5,000 unit Q8HR [facility] Administration Hydrophilic Ointment 1 applic 10/10/18 17:53 Vaseline Lip Therapy TP Q2HR PRN Dry Lips Sodium Chloride 100 mls @ 999 mls/hr 11/12/18 09:51 Nacl 0.9% IV CHON PRN Hypotension Ipratropium [place] 0.5 mg 11/20/18 22:07 Atrovent IH Q4HRT PRN Shortness Of Breath Lansoprazole 30 mg 10/15/18 10:00 11/25/18 23:09 Prevacid Solutab FEEDTUBE 30 mg BID [facility] Administration Metoprolol Tartrate 5 mg 10/18/18 14:05 11/21/18 21:32 Lopressor IV 5 mg Q6HR PRN Administration Tachyarrhythmias Metoprolol Tartrate 25 mg 11/24/18 13:00 11/26/18 05:08 Lopressor PO Not Given Q6HR [facility] Multi-Ingred Cream/Lotion/Oil/Oint 1 applic 10/10/18 17:53 Artificial Tears Ophth Oint OU Q4HR PRN Dry Eye(s) Multivitamins 1 each 10/11/18 10:00 11/25/18 09:23 Theragran Tab PO 1 each DAILY [facility] Administration Ondansetron HCl 4 mg 11/12/18 15:05 Zofran IV Q8H PRN N/V unrelieved by Buddy Faye Hydrophilic Mucilloid 1 each 11/08/18 18:00 11/25/18 09:24 Metamucil PO 1 each QDAY [facility] Administration Ritonavir 100 mg 10/30/18 18:00 11/25/18 09:24 Norvir PO 100 mg QDAY RUBI Administration Sertraline HCl 50 mg 11/21/18 19:52 11/25/18 09:23 Zoloft PO 50 mg QDAY RUBI Administration Simple Syrup 15 ml 10/11/18 12:58 Simple Syrup FEEDTUBE PRN PRN Hypoglycemia Simple Syrup 30 ml 10/11/18 12:58 Simple Syrup FEEDTUBE PRN PRN Hypoglycemia Sodium Bicarbonate 325 mg 10/11/18 12:58 Sodium Bicarbonate FEEDTUBE PRN PRN For Clogged Feeding Tube Sodium Chloride 10 ml 10/10/18 22:00 11/25/18 23:10 Sodium Chloride Flush Syringe 10 Ml IV 10 ml BID RUBI Administration Sodium Chloride 10 ml 10/10/18 18:12 Sodium Chloride Flush Syringe 10 Ml IV PRN PRN LINE FLUSH Tenofovir Disoproxil Fumarate 300 mg 10/30/18 17:45 11/23/18 17:06 Viread PO Not Given Q96H RUBI
--- NOTE | 2018-11-26 10:09 | Progress Note ---
Assessment and Plan Assessment: * ESRD --Permcath insertion 11/23 * HIV/AIDS * Acute encephalopathy * Acute hypoxic respiratory failure s/p mechanical ventilation * Hx of urinary retention * Anemia * Hyperkalemia - resolved Plan: * Continue HD qMWF schedule * UF as tolerated * Abx per primary team/ID * ID recommendations reviewed - antiretroviral treatment started 10/30 * Epogen TIW prn * Continue antiHTN medications * Note PT recommendation for SHANDRA * Outpatient HD clinic placement in progress * PT notes reviewed; patient is not ambulatory . Subjective Date of service: 11/26/18 Principal diagnosis: anemia Interval history: Patient reports inability to walk. Appetite is poor. Objective - Vital Signs Vital signs: Vital Signs - 12hr 11/25/18 11/26/18 11/26/18 23:25 01:00 05:06 Temperature 98.3 F 98.8 F Pulse Rate 106 H 106 H 106 H Respiratory 18 18 Rate Blood Pressure 119/82 119/82 132/92 O2 Sat by Pulse 100 100 Oximetry - General Appearance General appearance: cachectic, chronically ill, frail EENT: ATNC Respiratory: Present: Clear to Ascultation Cardiology: regular, S1S2 Gastrointestinal: normal, no tenderness, no distended Integumentary: no rash Musculoskeletal: other (no edema) Psychiatric: cooperative - Lab 11/26/18 06:33 11/26/18 06:26 Most recent lab results Calcium 8.6 mg/dL (8.4-10.2) 11/26/18 06:26 Phosphorus 6.50 mg/dL (2.5-4.5) H 11/24/18 10:53 Magnesium 3.10 mg/dL (1.7-2.3) H 10/18/18 05:03 Urine Creatinine 30.8 mg/dL (0.1-20.0) H 10/13/18 04:43 Urine Sodium 106 mmol/L 10/13/18 04:43 Urine Total Protein 75 mg/dL (5-11.8) H 10/13/18 04:43 Medications & Allergies - Medications Allergies/Adverse Reactions: Allergies Sulfa (Sulfonamide Antibiotics) Allergy (Verified 10/10/18 16:54) Unknown Home Medications: Home Medications Medication Instructions Recorded Confirmed Last Taken Type Acetaminophen [Tylenol] 1,000 mg PO Q6HR 10/10/18 10/10/18 Unknown History Amlodipine Besylate [Norvasc] 10 mg PO QDAY 10/10/18 10/10/18 Unknown History Aspirin [Adult Aspirin] 81 mg PO DAILY 10/10/18 10/10/18 Unknown History Atorvastatin [Lipitor Tab] 80 mg PO DAILY 10/10/18 10/10/18 Unknown History Losartan [Cozaar] 100 mg PO QDAY 10/10/18 10/10/18 Unknown History Multivitamin [Multiple Vitamins] 1 each PO DAILY 10/10/18 10/10/18 Unknown History hydroCHLOROthiazide [HCTZ] 25 mg PO QDAY 10/10/18 10/10/18 Unknown History Active Medications: Generic Name Dose Route Start Last Admin Trade Name Freq PRN Reason Stop Dose Admin Acetaminophen 500 mg 10/16/18 10:02 11/17/18 00:29 Tylenol PO 500 mg Q6H PRN Administration Fever >101 Albumin Human 25 gm 11/04/18 16:14 Alburx 25% (Albumin) IV CHON PRN Hypotension Albuterol 2.5 mg 11/21/18 07:24 Proventil IH Q4HRT PRN Shortness Of Breath Lipase/Protease/Amylase 1 each 10/11/18 12:[address] 10,500 Unit FEEDTUBE PRN PRN For Clogged Feeding Tube Atovaquone 1,500 mg 11/14/18 10:00 11/25/18 09:24 Mepron PO 1,500 mg QDAY RUBI Administration Darunavir 800 mg 10/30/18 18:00 11/25/18 09:23 Prezista PO 800 mg QDAY RUBI Administration Emtricitabine 200 mg 11/01/18 10:00 11/25/18 09:23 Emtriva PO 200 mg Q48HR RUBI Administration Epoetin Dany 20,000 unit 11/12/18 15:00 11/23/18 17:10 Procrit IV 20,000 unit .MWF RUBI Administration Heparin Sodium (Porcine) 5,000 unit 11/04/18 16:15 Heparin IV CHON PRN hemodialysis Heparin Sodium (Porcine) 5,000 unit 11/07/18 22:00 11/26/18 05:59 Heparin SUB-Q 5,000 unit Q8HR RUBI Administration Hydrophilic Ointment 1 applic 10/10/18 17:53 Vaseline Lip Therapy TP Q2HR PRN Dry Lips Sodium Chloride 100 mls @ 999 mls/hr 11/12/18 09:51 Nacl 0.9% IV CHON PRN Hypotension Ipratropium [place] 0.5 mg 11/20/18 22:07 Atrovent IH Q4HRT PRN Shortness Of Breath Lansoprazole 30 mg 10/15/18 10:00 11/25/18 23:09 Prevacid Solutab FEEDTUBE 30 mg BID RUBI Administration Metoprolol Tartrate 5 mg 10/18/18 14:05 11/21/18 21:32 Lopressor IV 5 mg Q6HR PRN Administration Tachyarrhythmias Metoprolol Tartrate 25 mg 11/24/18 13:00 11/26/18 05:08 Lopressor PO Not Given Q6HR RUBI Multi-Ingred Cream/Lotion/Oil/Oint 1 applic 10/10/18 17:53 Artificial Tears Ophth Oint OU Q4HR PRN Dry Eye(s) Multivitamins 1 each 10/11/18 10:00 11/25/18 09:23 Theragran Tab PO 1 each DAILY RUBI Administration Ondansetron HCl 4 mg 11/12/18 15:05 Zofran IV Q8H PRN N/V unrelieved by Buddy Psboo Hydrophilic Mucilloid 1 each 11/08/18 18:00 11/25/18 09:24 Metamucil PO 1 each QDAY RUBI Administration Ritonavir 100 mg 10/30/18 18:00 11/25/18 09:24 Norvir PO 100 mg QDAY RUBI Administration Sertraline HCl 50 mg 11/21/18 19:52 11/25/18 09:23 Zoloft PO 50 mg QDAY RUBI Administration Simple Syrup 15 ml 10/11/18 12:58 Simple Syrup FEEDTUBE PRN PRN Hypoglycemia Simple Syrup 30 ml 10/11/18 12:58 Simple Syrup FEEDTUBE PRN PRN Hypoglycemia Sodium Bicarbonate 325 mg 10/11/18 12:58 Sodium Bicarbonate FEEDTUBE PRN PRN For Clogged Feeding Tube Sodium Chloride 10 ml 10/10/18 22:00 11/25/18 23:10 Sodium Chloride Flush Syringe 10 Ml IV 10 ml BID RUBI Administration Sodium Chloride 10 ml 10/10/18 18:12 Sodium Chloride Flush Syringe 10 Ml IV PRN PRN LINE FLUSH Tenofovir Disoproxil Fumarate 300 mg 10/30/18 17:45 11/23/18 17:06 Viread PO Not Given Q96H RUBI
--- NOTE | 2018-11-26 11:36 | Progress Note ---
Assessment and Plan Cultures: Blood culture 10/10/2018 no growth. Sputum culture 10/10/2018 Ana Paula albicans. Crypto Ag 10/10/2018 neg. Urine culture 10/13/2018 no growth. Blood culture 10/17/2018 no growth. Blood culture 10/20/2018: no growth Stool Occult Blood 10/23/18: positive Blood culture 10/29/18: negative Urine culture 10/31/18: Ana Paula Blood culture 11/05/18: No growth Blood culture 11/14/18: no growth Assessment: 43 y/o male with history of HIV (unknown CD4/VL/ART intake), HTN, CVA 6 months ago at [place], Nicotine Dependence, Malnutrition; admitted on 10/10/2018 due to AMS (confusion/lethargy) and slurred speech for 24 h: 1) SIRS versus sepsis: Resolved. Etiology unknown. Could be related to decubiti, seems to be responding to abx - CXR neg - BNP 70K - Troponin 0.2 - LDH 2242 -chest CT :Patchy airspace disease in the right lower lobe compatible with pneumonia. No evidence of pleural effusion. -repeat CXR : clear lungs and normal bony and soft tissue structures. Patchy airspace disease in the right lower lobe has resolved since 11/07/18 2) Acute hypoxemic respiratory failure: for airway protection +/- ? pneumonia. Repeat CXR no consolidations. Ana Paula in tracha sp likely a colonizer. Extubated 10/15. Continues on atovaquone as prophylaxis. Patient has sulfa allergy. 3) Acute encephalopathy: Improved.; multifactorial ?from hypertensive urgency +/- brain opportunistic infection. DDx: Neurosyphilis, VZV/CMV encephalitis versus DIPLOMA MAKER lymphoma versus less likely PML v/s ischemic CVA (seems more likely) - CT head showed bilateral chronic ischemic changes. - Brain MRI showed areas of edema in the basal ganglia and thalami bilaterally, within the jamari and in the cerebral hemispheres bilaterally in the subcortical and deep white matter and in portions of the cortex, areas of encephalomalacia in the basal ganglia bilaterally with evidence of previous hemorrhage or mineral deposition and numerous small foci of acute infarct in the basal ganglia bilaterally, subinsular regions bilaterally and medial temporal lobes bilaterally and possibly in the occipital cortex bilaterally. - Brain MRA showed possible dissection versus artifact at the basilar artery. Luminal irregularity at the anterior, middle, and posterior cerebral arteries as well as the carotid siphons may represent mild to moderate atherosclerotic disease. More notable narrowing at the distal right A1 segment. Differential diagnosis includes motion artifact and vasculitis. Vertebral arteries are not clearly visualized. - CSF wbc 4, rbc 113, Seg 8%, Lymph 76%, protein 55, glucose 73 which is not c/w meningitis - RPR reactive 1:32 / FTA ABs reactive, treated with penicillin and cef triaxone but CSF VDRL Non reactive. - Toxoplasma IgG negative, CSF Toxoplasma PCR: negative - Blood CMV DNA VL=1,370, 3.1 log on ganciclovir - likely reactivation - Repeat CMV DNA PCR 10/24/2018: <200. Off ganciclovir. - Glucan Assay: negative 4) Anemia/thrombocytopenia: improving. 5) Acute on CKD or SHRUTHI ? unclear etiology: on HD. RIJ permacath placement today. 6) DM: uncontrolled. 7) HIV/AIDS: VL 320,000 / CD4=3 on 10/11/2018. 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 Started HIV treatment on 10/30/2018. Continue HIV therapy,renally adjusted TDF, FTC along with dolutegravir and ritonavir boosted darunavir. 8) Decubitus Ulcers: Left buttocks wound measures 9.0 x 2.5, Sacral wound measu res 3.5 x 3.5, 80 % necrotic tissue, Right buttocks wound measures 5.0 x 3.0 per wound care. Recommendations: -continue atovaquone 750 mg BID -continue HIV therapy: renally adjusted TDF, FTC along with dolutegravir and ritonavir boosted darunavir Monitor off antibiotics -continue wound care [facility] M: [phone] O:[phone] Subjective Date of service: 11/26/18 Principal diagnosis: anemia Interval history: Patient seen and examined. Reports generalized weakness, no pain. no Fevers. Objective - Exam Narrative Exam: General appearance: Awake, Alert, No acute distress Eyes: anicteric sclerae, moist conjunctivae; no lid-lag; PERRLA HENT: Atraumatic; oropharynx limited Neck: Trachea midline; supple, no thyromegaly or lymphadenopathy Lungs: CTA, with normal respiratory effort CV: tachycardic Abdomen: Soft, non-tender;+SP cath Extremities: No peripheral edema , + contractures bilateral lower extremities Skin: Normal temperature, turgor and texture; no rash, ulcers or subcutaneous nodules Psych: affect: Flat Neuro: Improved, following simple commands - Constitutional Vitals: Vital Signs Temp Pulse Resp BP Pulse Ox 98.8 F 106 H 18 132/92 100 11/26/18 05:06 11/26/18 05:06 11/26/18 05:06 11/26/18 05:06 11/26/18 05:06 Temperature -Last 24 Hours Temperature 98.8 F Temperature 98.3 F Temperature 97.8 F - Labs CBC & Chem 7: 11/26/18 06:33 11/26/18 06:26 Labs: Abnormal lab results 11/26/18 11/26/18 Range/Units 06:26 06:33 RBC 2.81 L (3.65-5.03) M/mm3 Hgb 7.9 L (11.8-15.2) gm/dl Hct 25.4 L (35.5-45.6) % MCHC 31 L (32-34) % RDW 21.0 H (13.2-15.2) % Chloride 96.5 L (98-107) mmol/L Carbon Dioxide 20 L (22-30) mmol/L BUN 51 H (9-20) mg/dL Creatinine 8.6 H D (0.8-1.5) mg/dL Glucose 110 H (75-100) mg/dL
[2018-11-26] MEDS: MEPRON PO SCH (11:47)
[2018-11-26] MEDS: PREVACID SOLUTAB FEEDTUBE SCH ×2 (11:48→22:18)
[2018-11-26] MEDS: METAMUCIL PO SCH (11:48)
[2018-11-26] MEDS: PREZISTA PO SCH (11:48)
[2018-11-26] MEDS: NORVIR PO SCH (11:48)
[2018-11-26] MEDS: THERAGRAN Tab PO SCH (11:49)
[2018-11-26] MEDS: ZOLOFT PO SCH (11:50)
[2018-11-26] MEDS: TIVICAY PO SCH (11:50)
--- NOTE | 2018-11-26 12:42 | Progress Note ---
Assessment and Plan Assessment and plan: Patient is 43 YO Male with HIV, hypertension, previous stroke, Nicotine Dependence, presents to ED for evaluation. Patient was confused and lethargic and unable to provide history. He was seen and evaluated in ED and found to be in distress and unable to protect his airway and was therefore intubated, placed on ventilator and admitted to ICU. Patient diagnosed with acute resp failure, renal failure(acute vs acute on chronic) , Encephalopathy, Acidosis. He is followed by ID Physician for HIV/AIDS. His renal failure worsened therefore started on hemodialysis for SHRUTHI due to ATN, now ESRD. He has had a prolonged course, diagnosed with acute resp failure, sepsis , toxic metabolic encephalopathy. He is on HAART. he is now stable for discharge. Awaiting family preservation caseworker to arrange dialysis outpatient and home health. Neuro ams acute metabolic encephalopathy improving /Acute CVA with Bilateral infarcts with edema Consulted Neurology, he was evaluated by DR. Valentine. mentation is improved, and this is likely his new baseline Dysphagia/ moderate malnutrition -MBS 10/23, recommended pureed with nectar thickened liquids, continue this diet -assistant paralegal consulted Hematology Anemia- stable, thrombocytopenia, leukocytosis, coagulopathy; now resolved -Status post platelet (3 units) and prbc (6 units ) transfusion, the patient had only few schistocytes on smear, ADAMS13 91% activity , plt count has recovered ID HIV/AIDS, CD4 count 3, HIV viral load 320,000 acute bacterial PNA, CMV viremia toxo neg, CSF neg ,Whole blood cmv PCR was positive at 1374 abx and anti- antiviral per ID,continues to have fever on and off -he was put back on HAART, he likely has component of IRIS causing fevers and sob -most recent cxr 11/12 show no infiltrate, dw ID oral thrus, nystatin swish and spit ordered x 7 days FEN/Renal SHRUTHI- ATN, no signs of renal recovery, now ESRD, Hyperkalemia, urinary retention Severe protein calorie malnutrition sp SPC on 10/12 cont HD per nephrology, no signs of renal recovery -now afebrile, spoke to vas sx about PC placement -dietitican consult Pulm acute hypoxic resp failure on MV> 96 hours self extubated 10/16, continue supplemental oxygen prn CTA neg for PE on 11/06 CVS /Hypertensive urgency and acute systolic CHF He was treated with Cardene drip which was weaned off. Optimize medications for CHF on coreg, no mik due to high K, fluid removal by dialysis Skin Stage 2 sacral wound decub, and bilat buttock wounds left buttocks area. The wound is measured at 9.0x2.5. 25% slough noticed to the wound sacral area. The wound is measured at 3.5x3.5.80% necrotic tissue noticed to the wound right buttocks area. The wound is measured at 5.0x3.0. no evidence of infection, but wounds are necrotic, cont wound care Depression MH input appreciated, he is improving Severe debility; he was previously refusing PT and not participating. He agrees to be more complaints of physical therapy. he is now participating with PT, contractures are improving DVT ppx- heparin sq Dispo: Needs HD and home health set up before he can be dc History Interval history: No chest pain No SOB currently Hospitalist Physical - Physical exam Narrative exam: Gen: Not in acute distress, very ill looking, lying in bed, malnourished, cachetic HEENT: Normocephalic, atraumatic Neck:Supple, no JVD Heart: S1 and S2 reg, no murmurs, rubs or gallop Lungs: Clear no crackles Abd: soft, non tender, non distended, normal BS Ext: No edema, no clubbing, no cyanosis Neuro: Awake, no focal signs, moves all extremities - Constitutional Vitals: Temp Pulse Resp BP Pulse Ox 99.1 F 118 H 20 135/96 99 11/26/18 11:37 11/26/18 11:37 11/26/18 11:37 11/26/18 11:37 11/26/18 11:37 General appearance: Present: no acute distress Results - Labs CBC & Chem 7: 11/26/18 06:33 11/26/18 06:26 Labs: Laboratory Last Values WBC 5.7 K/mm3 (4.5-11.0) 11/26/18 06:33 RBC 2.81 M/mm3 (3.65-5.03) L 11/26/18 06:33 Hgb 7.9 gm/dl (11.8-15.2) L 11/26/18 06:33 Hct 25.4 % (35.5-45.6) L 11/26/18 06:33 MCV 90 fl (84-94) 11/26/18 06:33 MCH 28 pg (28-32) 11/26/18 06:33 MCHC 31 % (32-34) L 11/26/18 06:33 RDW 21.0 % (13.2-15.2) H 11/26/18 06:33 Plt Count 211 K/mm3 (140-440) 11/26/18 06:33 Lymph % (Auto) Senior Medical Transcriptionist 11/24/18 00:09 [place] % (Auto) Senior Medical Transcriptionist 11/24/18 00:09 Eos % (Auto) Senior Medical Transcriptionist 11/24/18 00:09 Baso % (Auto) Senior Medical Transcriptionist 11/24/18 00:09 Lymph # Senior Medical Transcriptionist 11/24/18 00:09 [place] # Senior Medical Transcriptionist 11/24/18 00:09 Eos # Senior Medical Transcriptionist 11/24/18 00:09 Baso # Senior Medical Transcriptionist 11/24/18 00:09 Add Manual Diff Complete 11/24/18 00:09 Total Counted 100 11/24/18 00:09 Seg Neutrophils % Senior Medical Transcriptionist 11/24/18 00:09 Seg Neuts % (Manual) 71.0 % (40.0-70.0) H 11/24/18 00:09 Band Neutrophils % 6.0 % 11/24/18 00:09 Lymphocytes % (Manual) 8.0 % (13.4-35.0) L 11/24/18 00:09 Reactive Lymphs % (Man) 0 % 11/24/18 00:09 Monocytes % (Manual) 10.0 % (0.0-7.3) H 11/24/18 00:09 Eosinophils % (Manual) 5.0 % (0.0-4.3) H 11/24/18 00:09 Basophils % (Manual) 0 % (0.0-1.8) 11/24/18 00:09 Metamyelocytes % 0 % 11/24/18 00:09 Myelocytes % 0 % 11/24/18 00:09 Promyelocytes % 0 % 11/24/18 00:09 Blast Cells % 0 % 11/24/18 00:09 Nucleated RBC % 25.0 % (0.0-0.9) H 11/24/18 00:09 Seg Neutrophils # Senior Medical Transcriptionist 11/24/18 00:09 Seg Neutrophils # Man 5.8 K/mm3 (1.8-7.7) 11/24/18 00:09 Band Neutrophils # 0.5 K/mm3 11/24/18 00:09 Abs Lymphs (Manual) 267 cells/uL (850-3900) L 10/11/18 17:36 Lymphocytes # (Manual) 0.6 K/mm3 (1.2-5.4) L 11/24/18 00:09 Abs React Lymphs (Man) 0.0 K/mm3 11/24/18 00:09 Monocytes # (Manual) 0.8 K/mm3 (0.0-0.8) 11/24/18 00:09 Eosinophils # (Manual) 0.4 K/mm3 (0.0-0.4) 11/24/18 00:09 Basophils # (Manual) 0.0 K/mm3 (0.0-0.1) 11/24/18 00:09 Metamyelocytes # 0.0 K/mm3 11/24/18 00:09 Myelocytes # 0.0 K/mm3 11/24/18 00:09 Promyelocytes # 0.0 K/mm3 11/24/18 00:09 Blast Cells # 0.0 K/mm3 11/24/18 00:09 Pathologist Review 10/15/18 03:14 WBC Morphology Not Reportable 11/24/18 00:09 Hypersegmented Neuts Not Reportable 11/24/18 00:09 Hyposegmented Neuts Not Reportable 11/24/18 00:09 Hypogranular Neuts Not Reportable 11/24/18 00:09 Smudge Cells Not Reportable 11/24/18 00:09 Toxic Granulation Not Reportable 11/24/18 00:09 Toxic Vacuolation Not Reportable 11/24/18 00:09 Dohle Bodies Not Reportable 11/24/18 00:09 Pelger-Huet Anomaly Not Reportable 11/24/18 00:09 Kartik Rods Not Reportable 11/24/18 00:09 Platelet Estimate Appears normal 11/24/18 00:09 Clumped Platelets Not Reportable 11/24/18 00:09 Plt Clumps, EDTA Not Reportable 11/24/18 00:09 Large Platelets Not Reportable 11/24/18 00:09 Giant Platelets Not Reportable 11/24/18 00:09 Platelet Satelliting Not Reportable 11/24/18 00:09 Plt Morphology Comment Not Reportable 11/24/18 00:09 RBC Morphology Not Reportable 11/24/18 00:09 Dimorphic RBCs Not Reportable 11/24/18 00:09 Polychromasia Few 11/24/18 00:09 Hypochromasia 1+ 11/24/18 00:09 Poikilocytosis Not Reportable 11/24/18 00:09 Anisocytosis 1+ 11/24/18 00:09 Microcytosis Rare 11/24/18 00:09 Macrocytosis Not Reportable 11/24/18 00:09 Spherocytes Not Reportable 11/24/18 00:09 Pappenheimer Bodies Not Reportable 11/24/18 00:09 Sickle Cells Not Reportable 11/24/18 00:09 Target Cells Few 11/24/18 00:09 Tear Drop Cells Not Reportable 11/24/18 00:09 Ovalocytes Not Reportable 11/24/18 00:09 Stomatocytes Few 11/10/18 06:54 Helmet Cells Not Reportable 11/24/18 00:09 [place] Bodies Not Reportable 11/24/18 00:09 [place] Rings Not Reportable 11/24/18 00:09 [place] Cells Not Reportable 11/24/18 00:09 Bite Cells Not Reportable 11/24/18 00:09 Crenated Cell Not Reportable 11/24/18 00:09 Elliptocytes Not Reportable 11/24/18 00:09 Acanthocytes (Spur) Not Reportable 11/24/18 00:09 Rouleaux Not Reportable 11/24/18 00:09 Hemoglobin C Crystals Not Reportable 11/24/18 00:09 Schistocytes Not Reportable 11/24/18 00:09 Malaria parasites Not Reportable 11/24/18 00:09 Jv Bodies Not Reportable 11/24/18 00:09 Hem Pathologist Commnt No 11/24/18 00:09 PT 17.7 Sec. (12.2-14.9) H 11/06/18 13:18 INR 1.36 (0.87-1.13) H 11/06/18 13:18 APTT 30.6 Sec. (24.2-36.6) 11/06/18 13:18 Thrombin Time 16.9 Sec. (15.1-19.6) 10/10/18 15:02 Heparin Anti-Xa Level < 0.10 U.I./ml (0.3-0.7) L 11/07/18 21:31 Heparin Anti-Xa, Unfract Negative (Negative) 10/25/18 05:59 POC ABG pH 7.455 (7.35-7.45) H 11/23/18 13:46 POC ABG pCO2 32.0 (35-45) L 10/21/18 09:49 POC ABG pO2 111 (80-105) H 11/23/18 13:46 POC ABG HCO3 17.3 (22-26 mml/L) 11/23/18 13:46 POC ABG Total CO2 18 (23-27mmol/L) 11/23/18 13:46 POC ABG O2 Sat 99 11/23/18 13:46 POC ABG Base Excess -7 ((-2) - (+3)mmol/L) 11/23/18 13:46 FiO2 21 % 11/23/18 13:46 Sodium 139 mmol/L (137-145) 11/26/18 06:26 Potassium 4.0 mmol/L (3.6-5.0) 11/26/18 06:26 Chloride 96.5 mmol/L (98-107) L 11/26/18 06:26 Carbon Dioxide 20 mmol/L (22-30) L 11/26/18 06:26 Anion Gap 27 mmol/L 11/26/18 06:26 BUN 51 mg/dL (9-20) H 11/26/18 06:26 Creatinine 8.6 mg/dL (0.8-1.5) H D 11/26/18 06:26 Estimated GFR 8 ml/min 11/26/18 06:26 BUN/Creatinine Ratio 6 % 11/26/18 06:26 Glucose 110 mg/dL (75-100) H 11/26/18 06:26 POC Glucose 110 (70-105) H 11/23/18 13:35 Osmolality 338 Mosm/kg 10/11/18 17:35 Lactic Acid 1.80 mmol/L (0.7-2.0) 10/12/18 05:59 Uric Acid 13.4 mg/dL (3.5-7.6) H 10/11/18 17:36 Calcium 8.6 mg/dL (8.4-10.2) 11/26/18 06:26 Phosphorus 6.50 mg/dL (2.5-4.5) H 11/24/18 10:53 Magnesium 3.10 mg/dL (1.7-2.3) H 10/18/18 05:03 Iron 147 ug/dL (49-181) 10/11/18 17:36 TIBC 236 mcg/dL (250-450) L 10/11/18 17:36 Ferritin 61325.0 ng/mL (13.0-400.0) H 10/11/18 17:35 Total Bilirubin 0.30 mg/dL (0.1-1.2) 11/19/18 05:31 Direct Bilirubin 0.2 mg/dL (0-0.2) 10/16/18 04:07 Indirect Bilirubin 0.3 mg/dL 10/16/18 04:07 AST 26 units/L (5-40) 11/19/18 05:31 ALT 11 units/L (7-56) 11/19/18 05:31 Alkaline Phosphatase 74 units/L (35-129) 11/19/18 05:31 Ammonia 25.0 umol/L (25-60) 10/17/18 14:59 Lactate Dehydrogenase 925 units/L (91-180) H 10/22/18 05:51 Troponin T 0.357 ng/mL (0.00-0.029) H* 11/06/18 05:54 NT-Pro-B Natriuret Pep 87094 pg/mL (0-450) H 10/10/18 15:42 Total Protein 7.6 g/dL (6.3-8.2) 11/19/18 05:31 Albumin 2.6 g/dL (3.9-5) L 11/19/18 05:31 Albumin/Globulin Ratio 0.5 % 11/19/18 05:31 Triglycerides 306 mg/dL (2-149) H 11/05/18 11:29 Cholesterol 145 mg/dL (50-199) 11/05/18 11:29 LDL Cholesterol Direct 89 mg/dL (50-130) 11/05/18 11:29 HDL Cholesterol 25 mg/dL (40-59) L 11/05/18 11:29 Cholesterol/HDL Ratio 5.80 % 11/05/18 11:29 Serotonin Release Assay See scanned result 10/25/18 05:59 Vitamin B12 912.3 pg/mL (211-911) H 10/14/18 08:51 Folate 8.32 ng/mL (7.3-26.0) 10/14/18 08:51 PTH Intact 118.0 pg/mL (15-65) H 11/24/18 10:53 Urine Creatinine 30.8 mg/dL (0.1-20.0) H 10/13/18 04:43 Urine Sodium 106 mmol/L 10/13/18 04:43 Urine Total Protein 75 mg/dL (5-11.8) H 10/13/18 04:43 CSF Appearance Clear 10/16/18 15:00 CSF Color Colorless 10/16/18 15:00 CSF WBC 4 /mm3 (1-10) 10/16/18 15:00 CSF RBC 113 /mm3 (0-0) 10/16/18 15:00 CSF Seg Neutrophils 8.0 % (0-6) 10/16/18 15:00 CSF Lymphocytes % 76.0 % (40-80) 10/16/18 15:00 CSF Reactive Lymphs 2.0 % 10/16/18 15:00 CSF Monocytes % 14.0 % (15-45) 10/16/18 15:00 CSF Eosinophils % 0 % 10/16/18 15:00 CSF Basophils 0 % 10/16/18 15:00 CSF Pathologist Review C 10/16/18 15:00 CSF Glucose 73 mg/dL 10/16/18 15:00 CSF Total Protein 55 mg/dL 10/16/18 15:00 CSF VDRL Nonreactive (Nonreactive) 10/16/18 15:00 Random Vancomycin 21.1 ug/mL (0-40.0) 11/20/18 06:15 Immunofix Electrophor see below 10/11/18 17:36 RENO Screen Negative (Negative) 10/21/18 15:07 Proteinase 3 (PR3) Ab <1.0 AI (<1.0) 10/21/18 15:07 Myeloperoxidase Ab <1.0 AI (<1.0) 10/21/18 15:07 Heparin-induced Plt Ab Negative (Negative) 10/25/18 05:59 UF Heparin High Dose 0 % Release 10/25/18 05:59 VJ UFH Low Dose 0.1 0 % Release 10/25/18 05:59 VJ UFH Low Dose 0.5 14 % Release 10/25/18 05:59 Lymph Enumerat CD4/CD8 0.01 (0.86-5.00) L 10/11/18 17:36 % CD3 Cells 85 % (57-85) 10/11/18 17:36 Absolute CD3 Count 226 cells/uL (840-3060) L 10/11/18 17:36 % CD4 Cells 1 % (30-61) L 10/11/18 17:36 Absolute CD4 Count 3 cells/uL (490-1740) L 10/11/18 17:36 % CD8 Cells 82 % (12-42) H 10/11/18 17:36 Absolute CD8 Count 228 cells/uL (180-1170) 10/11/18 17:36 % CD19 Cells 6 % (6-29) 10/11/18 17:36 Absolute CD19 Count 16 cells/uL (110-660) L 10/11/18 17:36 RPR Titer 1:32 10/11/18 17:37 RPR Reactive (Nonreactive) 10/11/18 17:37 T.pallidum Ab (FTA-ABS) Reactive (Nonreactive) H 10/12/18 Unknown CMV DNA PCR log hat copyist/mL See scanned result 10/24/18 17:47 Hepatitis A IgM Ab Non-reactive (NonReactive) 11/21/18 09:58 Hep Bs Antigen Non-reactive (Negative) 11/21/18 09:58 Hep B Core IgM Ab Non-reactive (NonReactive) 11/21/18 09:58 Hepatitis C Antibody Non-reactive (NonReactive) 11/21/18 09:58 HIV-1 RNA PCR copies/ml 015824 Copies/mL H 10/11/18 17:36 HIV-1 RNA (PCR) log 5.51 Log cps/mL H 10/11/18 17:36 HIV-1 Genotyping See scanned results 10/29/18 19:48 Toxoplasma IgG Ab <7.20 IU/mL (<7.20) 10/13/18 07:54 Miscellaneous Test Flexitest 1 10/31/18 06:43 Blood Type A POSITIVE 11/08/18 11:28 Antibody Screen Negative 11/08/18 11:28 Crossmatch See Detail 11/08/18 11:28 Active Medications - Current Medications Current Medications: Generic Name Dose Route Start Last Admin Trade Name Freq PRN Reason Stop Dose Admin Acetaminophen 500 mg 10/16/18 10:02 11/17/18 00:29 Tylenol PO 500 mg Q6H PRN Administration Fever >101 Albumin Human 25 gm 11/04/18 16:14 Alburx 25% (Albumin) IV CHON PRN Hypotension Albuterol 2.5 mg 11/21/18 07:24 Proventil IH Q4HRT PRN Shortness Of Breath Lipase/Protease/Amylase 1 each 10/11/18 12:[address] 10,500 Unit FEEDTUBE PRN PRN For Clogged Feeding Tube Atovaquone 1,500 mg 11/14/18 10:00 11/26/18 11:47 Mepron PO Not Given QDAY [facility] Darunavir 800 mg 10/30/18 18:00 11/26/18 11:48 Prezista PO Not Given QDAY [facility] Emtricitabine 200 mg 11/01/18 10:00 11/25/18 09:23 Emtriva PO 200 mg Q48HR RUBI Administration Epoetin Dany 20,000 unit 11/12/18 15:00 11/23/18 17:10 Procrit IV 20,000 unit .MWF RUBI Administration Heparin Sodium (Porcine) 5,000 unit 11/04/18 16:15 Heparin IV CHON PRN hemodialysis Heparin Sodium (Porcine) 5,000 unit 11/07/18 22:00 11/26/18 05:59 Heparin SUB-Q 5,000 unit Q8HR RUBI Administration Hydrophilic Ointment 1 applic 10/10/18 17:53 Vaseline Lip Therapy TP Q2HR PRN Dry Lips Sodium Chloride 100 mls @ 999 mls/hr 11/12/18 09:51 Nacl 0.9% IV CHON PRN Hypotension Ipratropium [place] 0.5 mg 11/20/18 22:07 Atrovent IH Q4HRT PRN Shortness Of Breath Lansoprazole 30 mg 10/15/18 10:00 11/26/18 11:48 Prevacid Solutab FEEDTUBE Not Given BID [facility] Metoprolol Tartrate 5 mg 10/18/18 14:05 11/21/18 21:32 Lopressor IV 5 mg Q6HR PRN Administration Tachyarrhythmias Metoprolol Tartrate 25 mg 11/24/18 13:00 11/26/18 05:08 Lopressor PO Not Given Q6HR [facility] Multi-Ingred Cream/Lotion/Oil/Oint 1 applic 10/10/18 17:53 Artificial Tears Ophth Oint OU Q4HR PRN Dry Eye(s) Multivitamins 1 each 10/11/18 10:00 11/26/18 11:49 Theragran Tab PO Not Given DAILY [facility] Ondansetron HCl 4 mg 11/12/18 15:05 Zofran IV Q8H PRN N/V unrelieved by Buddy Psboo Hydrophilic Mucilloid 1 each 11/08/18 18:00 11/26/18 11:48 Metamucil PO Not Given QDAY [facility] Ritonavir 100 mg 10/30/18 18:00 11/26/18 11:48 Norvir PO Not Given QDAY [facility] Sertraline HCl 50 mg 11/21/18 19:52 11/26/18 11:50 Zoloft PO Not Given QDAY RUBI Simple Syrup 15 ml 10/11/18 12:58 Simple Syrup FEEDTUBE PRN PRN Hypoglycemia Simple Syrup 30 ml 10/11/18 12:58 Simple Syrup FEEDTUBE PRN PRN Hypoglycemia Sodium Bicarbonate 325 mg 10/11/18 12:58 Sodium Bicarbonate FEEDTUBE PRN PRN For Clogged Feeding Tube Sodium Chloride 10 ml 10/10/18 22:00 11/25/18 23:10 Sodium Chloride Flush Syringe 10 Ml IV 10 ml BID RUBI Administration Sodium Chloride 10 ml 10/10/18 18:12 Sodium Chloride Flush Syringe 10 Ml IV PRN PRN LINE FLUSH Tenofovir Disoproxil Fumarate 300 mg 10/30/18 17:45 11/23/18 17:06 Viread PO Not Given Q96H [facility] Nutrition/Malnutrition Assess - Dietary Evaluation Nutrition/Malnutrition Findings: Nutrition Notes Start: 10/11/18 11:14 Freq: Status: Active Protocol: Document 11/22/18 10:24 LM (Rec: 11/22/18 10:34 LM [id number]) Co-Sign 11/22/18 10:24 LP Nutrition Notes Initial or Follow up Reassessment Current Diagnosis Acute Kidney Injury,CKD(stage I-IV),Hypertension,Heart Failure,Stroke Other Pertinent Diagnosis Depression,Dysphagia,on HD, Acute encephalopathy,HIV/AIDS, Syphilis Current Diet NPO Labs/Tests Reviewed Pertinent Medications Reviewed Height 5 ft 9 in Weight 47.9 kg [place] Body Weight (kg) 72.72 BMI 15.5 Subjective/Other Information Pt did not receive breakfast this morning due to being made NPO yesterday for procedure. Procedure did not happen and is scheduled for tomorrow. Pureed diet ordered for dinner tonight. Pt stated he feels hungry. Percent of energy/protein needs met: 0%/0% Burn Absent Trauma Absent #2 Nutrition Diagnosis Malnutrition Diagnosis Progress(for reassessment Continues documentation) #1 Nutrition Diagnosis Inadequate oral intake Diagnosis Progress(for reassessment Continues documentation) Is patient on ventilator? No Is Patient Ambulatory and/or Out of Bed No [facility] 1646.712 Kcal/Kg value to use for calculation 40 Approximate Energy Requirements Using 1916 kcal/Kg Calculation Used for Recommendations Kcal/kg Additional Notes Pro needs 1.2-1.5g/k-72g/ day Fluid needs 1ml/kcal Nutrition Intervention Change Diet Order: Pureed diet Add Supplement/Snack (indicate name/kcal Nepro 1 daily /protein ) Provides kCal: 425 Provides Protein (gm) 19 Goal #1 Meet at least 75% of calorie and protein needs via PO and ONS intakes Anticipated Discharge Needs: Pureed, Renal diet Follow-Up By: 11/26/18 Additional Comments F/U fro PO and ONS intakes, add ONS back to diet - Attestation Statement I have reviewed and agreed w/ Malnutrition eval & tx plan: Yes
[2018-11-26] MEDS ORDERED: NACL 0.9 (PRIMING MACHINE ONLY DIALYSIS) MC ONE (17:09)
[2018-11-26] MEDS: PROCRIT IV SCH (18:15)
[2018-11-26] MEDS: SODIUM CHLORIDE FLUSH SYRINGE 10 ML IV SCH ×2 (20:11→22:19)
[2018-11-26] MEDS: TYLENOL PO PRN (20:30)
[2018-11-27] MEDS: LOPRESSOR PO SCH ×5 (00:22→23:58)
[2018-11-27] MEDS: HEPARIN SUB-Q SCH ×3 (05:38→21:35)
[2018-11-27 06:18] LABS: Hematocrit 27.1 % (35.5-45.6); Hemoglobin 8.6 gm/dl (11.8-15.2); Mean Corpuscular HGB Conc 32 % (32-34); Mean Corpuscular Volume 90 fl (84-94); Red Blood Count 3.02 M/mm3 (3.65-5.03)
[2018-11-27 06:38] LABS: Calcium 9.3 mg/dL (8.4-10.2); Platelet Count 196 K/mm3 (140-440); Red Cell Distribution Width 20.5 % (13.2-15.2)
--- NOTE | 2018-11-27 09:12 | Progress Note ---
Assessment and Plan Assessment: * ESRD --Permcath insertion 11/23 * HIV/AIDS * Acute encephalopathy * Acute hypoxic respiratory failure s/p mechanical ventilation * Hx of urinary retention * Anemia * Hyperkalemia - resolved Plan: * Continue HD qMWF schedule * UF as tolerated * Abx per primary team/ID * ID recommendations reviewed - antiretroviral treatment started 10/30 * Epogen TIW prn * Continue antiHTN medications * Note PT recommendation for SHANDRA * Outpatient HD clinic placement in progress * PT notes reviewed; patient is not ambulatory, "max assistance, max fall risk" . Subjective Date of service: 11/27/18 Principal diagnosis: anemia - HIV Interval history: Patient has no complaints today Objective - Vital Signs Vital signs: Vital Signs - 12hr 11/27/18 11/27/18 11/27/18 00:17 00:22 05:39 Temperature 99.0 F Pulse Rate 107 H 107 H 103 H Respiratory 20 Rate Blood Pressure 161/112 161/112 131/98 O2 Sat by Pulse 99 Oximetry - General Appearance General appearance: cachectic, frail EENT: ATNC Respiratory: Present: Clear to Ascultation Cardiology: regular, S1S2 Gastrointestinal: no tenderness, no distended Integumentary: warm and dry Musculoskeletal: other (no edema) Psychiatric: cooperative - Lab 11/27/18 05:27 11/27/18 05:27 Most recent lab results Calcium 9.3 mg/dL (8.4-10.2) 11/27/18 05:27 Phosphorus 6.50 mg/dL (2.5-4.5) H 11/24/18 10:53 Magnesium 3.10 mg/dL (1.7-2.3) H 10/18/18 05:03 Urine Creatinine 30.8 mg/dL (0.1-20.0) H 10/13/18 04:43 Urine Sodium 106 mmol/L 10/13/18 04:43 Urine Total Protein 75 mg/dL (5-11.8) H 10/13/18 04:43 Medications & Allergies - Medications Allergies/Adverse Reactions: Allergies Sulfa (Sulfonamide Antibiotics) Allergy (Verified 10/10/18 16:54) Unknown Home Medications: Home Medications Medication Instructions Recorded Confirmed Last Taken Type Acetaminophen [Tylenol] 1,000 mg PO Q6HR 10/10/18 10/10/18 Unknown History Amlodipine Besylate [Norvasc] 10 mg PO QDAY 10/10/18 10/10/18 Unknown History Aspirin [Adult Aspirin] 81 mg PO DAILY 10/10/18 10/10/18 Unknown History Atorvastatin [Lipitor Tab] 80 mg PO DAILY 10/10/18 10/10/18 Unknown History Losartan [Cozaar] 100 mg PO QDAY 10/10/18 10/10/18 Unknown History Multivitamin [Multiple Vitamins] 1 each PO DAILY 10/10/18 10/10/18 Unknown History hydroCHLOROthiazide [HCTZ] 25 mg PO QDAY 10/10/18 10/10/18 Unknown History Active Medications: Generic Name Dose Route Start Last Admin Trade Name Freq PRN Reason Stop Dose Admin Acetaminophen 500 mg 10/16/18 10:02 11/26/18 20:30 Tylenol PO 500 mg Q6H PRN Administration Fever >101 Albumin Human 25 gm 11/04/18 16:14 Alburx 25% (Albumin) IV CHON PRN Hypotension Albuterol 2.5 mg 11/21/18 07:24 Proventil IH Q4HRT PRN Shortness Of Breath Lipase/Protease/Amylase 1 each 10/11/18 12:[address] 10,500 Unit FEEDTUBE PRN PRN For Clogged Feeding Tube Atovaquone 1,500 mg 11/14/18 10:00 11/26/18 11:47 Mepron PO Not Given QDAY [facility]S [facility] BEDS AT [facility] Darunavir 800 mg 10/30/18 18:00 11/26/18 11:48 Prezista PO Not Given QDAY COUNTS INCLUDE 234 BEDS AT [facility] Emtricitabine 200 mg 11/01/18 10:00 11/25/18 09:23 Emtriva PO 200 mg Q48HR COUNTS INCLUDE 234 BEDS AT [facility] Administration Epoetin Dany 20,000 unit 11/12/18 15:00 11/26/18 18:15 Procrit IV 20,000 unit .MWF RUBI Administration Heparin Sodium (Porcine) 5,000 unit 11/04/18 16:15 Heparin IV CHON PRN hemodialysis Heparin Sodium (Porcine) 5,000 unit 11/07/18 22:00 11/27/18 05:38 Heparin SUB-Q 5,000 unit Q8HR RUBI Administration Hydrophilic Ointment 1 applic 10/10/18 17:53 Vaseline Lip Therapy TP Q2HR PRN Dry Lips Sodium Chloride 100 mls @ 999 mls/hr 11/12/18 09:51 Nacl 0.9% IV CHON PRN Hypotension Ipratropium [place] 0.5 mg 11/20/18 22:07 Atrovent IH Q4HRT PRN Shortness Of Breath Lansoprazole 30 mg 10/15/18 10:00 11/26/18 22:18 Prevacid Solutab FEEDTUBE 30 mg BID RUBI Administration Metoprolol Tartrate 5 mg 10/18/18 14:05 11/21/18 21:32 Lopressor IV 5 mg Q6HR PRN Administration Tachyarrhythmias Metoprolol Tartrate 25 mg 11/24/18 13:00 11/27/18 05:39 Lopressor PO 25 mg Q6HR RUBI Administration Multi-Ingred Cream/Lotion/Oil/Oint 1 applic 10/10/18 17:53 Artificial Tears Ophth Oint OU Q4HR PRN Dry Eye(s) Multivitamins 1 each 10/11/18 10:00 11/26/18 11:49 Theragran Tab PO Not Given DAILY [facility] Ondansetron HCl 4 mg 11/12/18 15:05 Zofran IV Q8H PRN N/V unrelieved by Buddy Faye Hydrophilic Mucilloid 1 each 11/08/18 18:00 11/26/18 11:48 Metamucil PO Not Given QDAY RUBI Ritonavir 100 mg 10/30/18 18:00 11/26/18 11:48 Norvir PO Not Given QDAY RUBI Sertraline HCl 50 mg 11/21/18 19:52 11/26/18 11:50 Zoloft PO Not Given QDAY RUBI Simple Syrup 15 ml 10/11/18 12:58 Simple Syrup FEEDTUBE PRN PRN Hypoglycemia Simple Syrup 30 ml 10/11/18 12:58 Simple Syrup FEEDTUBE PRN PRN Hypoglycemia Sodium Bicarbonate 325 mg 10/11/18 12:58 Sodium Bicarbonate FEEDTUBE PRN PRN For Clogged Feeding Tube Sodium Chloride 10 ml 10/10/18 22:00 11/26/18 22:19 Sodium Chloride Flush Syringe 10 Ml IV 10 ml BID RUBI Administration Sodium Chloride 10 ml 10/10/18 18:12 Sodium Chloride Flush Syringe 10 Ml IV PRN PRN LINE FLUSH Tenofovir Disoproxil Fumarate 300 mg 10/30/18 17:45 11/23/18 17:06 Viread PO Not Given Q96H RUBI
--- NOTE | 2018-11-27 09:39 | Progress Note ---
Assessment and Plan Cultures: Blood culture 10/10/2018 no growth. Sputum culture 10/10/2018 Ana Paula albicans. Crypto Ag 10/10/2018 neg. Urine culture 10/13/2018 no growth. Blood culture 10/17/2018 no growth. Blood culture 10/20/2018: no growth Stool Occult Blood 10/23/18: positive Blood culture 10/29/18: negative Urine culture 10/31/18: Ana Paula Blood culture 11/05/18: No growth Blood culture 11/14/18: no growth Assessment: 43 y/o male with history of HIV (unknown CD4/VL/ART intake), HTN, CVA 6 months ago at [place], Nicotine Dependence, Malnutrition; admitted on 10/10/2018 due to AMS (confusion/lethargy) and slurred speech for 24 h: 1) SIRS versus sepsis: Resolved. Low grade temp noted. Etiology unknown. Could be related to decubiti, seems to be responding to abx - CXR neg - BNP 70K - Troponin 0.2 - LDH 2242 -chest CT :Patchy airspace disease in the right lower lobe compatible with pneumonia. No evidence of pleural effusion. -repeat CXR : clear lungs and normal bony and soft tissue structures. Patchy airspace disease in the right lower lobe has resolved since 11/07/18 2) Acute hypoxemic respiratory failure: for airway protection +/- ? pneumonia. Repeat CXR no consolidations. Naa Paula in tracha sp likely a colonizer. Extubated 10/15. Continues on atovaquone as prophylaxis. Patient has sulfa allergy. 3) Acute encephalopathy: Improved.; multifactorial ?from hypertensive urgency +/- brain opportunistic infection. DDx: Neurosyphilis, VZV/CMV encephalitis versus [employer] lymphoma versus less likely PML v/s ischemic CVA (seems more likely) - CT head showed bilateral chronic ischemic changes. - Brain MRI showed areas of edema in the basal ganglia and thalami bilaterally, within the jamari and in the cerebral hemispheres bilaterally in the subcortical and deep white matter and in portions of the cortex, areas of encephalomalacia in the basal ganglia bilaterally with evidence of previous hemorrhage or mineral deposition and numerous small foci of acute infarct in the basal ganglia bilaterally, subinsular regions bilaterally and medial temporal lobes bilaterally and possibly in the occipital cortex bilaterally. - Brain MRA showed possible dissection versus artifact at the basilar artery. Luminal irregularity at the anterior, middle, and posterior cerebral arteries as well as the carotid siphons may represent mild to moderate atherosclerotic disease. More notable narrowing at the distal right A1 segment. Differential diagnosis includes motion artifact and vasculitis. Vertebral arteries are not clearly visualized. - CSF wbc 4, rbc 113, Seg 8%, Lymph 76%, protein 55, glucose 73 which is not c/w meningitis - RPR reactive 1:32 / FTA ABs reactive, treated with penicillin and ceftriaxone but CSF VDRL Non reactive. - Toxoplasma IgG negative, CSF Toxoplasma PCR: negative - Blood CMV DNA VL=1,370, 3.1 log on ganciclovir - likely reactivation - Repeat CMV DNA PCR 10/24/2018: <200. Off ganciclovir. - Glucan Assay: negative 4) Anemia/thrombocytopenia: improving. 5) Acute on CKD or SHRUTHI ? unclear etiology: on HD. RIJ permacath placement today. 6) DM: uncontrolled. 7) HIV/AIDS: VL 320,000 / CD4=3 on 10/11/2018. 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 Started HIV treatment on 10/30/2018. Continue HIV therapy,renally adjusted TDF, FTC along with doluteg ravir and ritonavir boosted darunavir. 8) Decubitus Ulcers: Left buttocks wound measures 9.0 x 2.5, Sacral wound measures 3.5 x 3.5, 80 % necrotic tissue, Right buttocks wound measures 5.0 x 3.0 per wound care.. Bedside debridement scheduled tomorrow with Dr. Go, . Recommendations: -continue atovaquone 750 mg BID -continue HIV therapy: renally adjusted TDF, FTC along with dolutegravir and ritonavir boosted darunavir Monitor off antibiotics -continue wound care -Repeat CD4 and HIV RNA ordered, antiretroviral treatment started 10/30/18 [facility] M: [phone] O:[phone] Subjective Date of service: 11/27/18 Principal diagnosis: anemia - HIV Interval history: Patient seen and examined. Reports generalized weakness, no pain. Low grade fever. Objective - Exam Narrative Exam: General appearance: Awake, Alert, No acute distress Eyes: anicteric sclerae, moist conjunctivae; no lid-lag; PERRLA HENT: Atraumatic; oropharynx limited Neck: Trachea midline; supple, no thyromegaly or lymphadenopathy Lungs: CTA, with normal respiratory effort CV: tachycardic Abdomen: Soft, non-tender;+SP cath Extremities: No peripheral edema , + contractures bilateral lower extremities Skin: Normal temperature, turgor and texture; no rash, ulcers or subcutaneous nodules Psych: affect: Flat Neuro: Improved, following simple commands - Constitutional Vitals: Vital Signs Temp Pulse Resp BP Pulse Ox 99.0 F 103 H 20 131/98 99 11/27/18 00:17 11/27/18 05:39 11/27/18 00:17 11/27/18 05:39 11/27/18 00:17 Temperature -Last 24 Hours Temperature 99.0 F Temperature 100.1 F Temperature 99.8 F Temperature 99.1 F - Labs CBC & Chem 7: 11/27/18 05:27 11/27/18 05:27 Labs: Abnormal lab results 11/27/18 11/27/18 Range/Units 05:27 05:27 RBC 3.02 L (3.65-5.03) M/mm3 Hgb 8.6 L (11.8-15.2) gm/dl Hct 27.1 L (35.5-45.6) % RDW 20.5 H (13.2-15.2) % Potassium 3.5 L (3.6-5.0) mmol/L Chloride 91.8 L (98-107) mmol/L Creatinine 3.6 H D (0.8-1.5) mg/dL Glucose 101 H (75-100) mg/dL
--- NOTE | 2018-11-27 11:31 | Progress Note ---
Assessment and Plan Assessment and plan: Acute encephalopathy multifactorial ?from hypertensive urgency +/- brain opportunistic infection. DDx: Neurosyphilis, VZV/CMV encephalitis versus [employer] lymphoma versus less likely PML v/s ischemic CVA (seems more likely) improving - CT head showed bilateral chronic ischemic changes. - Brain MRI showed areas of edema in the basal ganglia and thalami bilaterally, within the jamari and in the cerebral hemispheres bilaterally in the subcortical and deep white matter and in portions of the cortex, areas of encephalomalacia in the basal ganglia bilaterally with evidence of previous hemorrhage or mineral deposition and numerous small foci of acute infarct in the basal ganglia bilaterally, subinsular regions bilaterally and medial temporal lobes bilaterally and possibly in the occipital cortex bilaterally. - Brain MRA showed possible dissection versus artifact at the basilar artery. Luminal irregularity at the anterior, middle, and posterior cerebral arteries as well as the carotid siphons may represent mild to moderate atherosclerotic disease. More notable narrowing at the distal right A1 segment. Differential diagnosis includes motion artifact and vasculitis. Vertebral arteries are not clearly visualized. - CSF wbc 4, rbc 113, Seg 8%, Lymph 76%, protein 55, glucose 73 which is not c/w meningitis - RPR reactive 1:32 / FTA ABs reactive, treated with penicillin and ceftriaxone but CSF VDRL Non reactive. - Toxoplasma IgG negative, CSF Toxoplasma PCR: negative - Blood CMV DNA VL=1,370, 3.1 log on ganciclovir - likely reactivation - Repeat CMV DNA PCR 10/24/2018: <200. Off ganciclovir. - Glucan Assay: negative Consulted Neurology, he was evaluated by DR. Valentine. 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 No evidence of pleural effusion. -repeat CXR : clear lungs and normal bony and soft tissue structures. Patchy airspace disease in the right lower lobe has resolved since 11/07/18 Continues on atovaquone as prophylaxis. Patient has sulfa allergy. Oral candidiasis, nystatin swish and spit ordered x 7 days SHRUTHI/ATN now ESRD Continue hemodialysis per nephrology. Hyperkalemia, resolved Severe protein calorie malnutrition -dietitican consult Acute hypoxic resp failure on MV> 96 hours self extubated 10/16, continue supplemental oxygen prn CTA neg for PE on 11/06 Acute on chronic systolic CHF He was treated with Cardene drip which was weaned off. Optimize medications for CHF on coreg, no mik due to high K, fluid removal by dialysis Stage 2 sacral wound decub, and bilat buttock wounds left buttocks area. The wound is measured at 9.0x2.5. 25% slough noticed to the wound sacral area. The wound is measured at 3.5x3.5.80% necrotic tissue noticed to the wound right buttocks area. The wound is measured at 5.0x3.0. no evidence of infection, but wounds are necrotic, cont wound care Depression MH input appreciated, he is improving Severe debility; he was previously refusing PT and not participating. He agrees to be more complaints of physical therapy. he is now participating with PT, contractures are improving DVT ppx- heparin sq Disposition: Needs HD and home health set up before he can be dc History Interval history: Patient is 43 YO Male with HIV, hypertension, previous stroke, Nicotine Depe ndence, presents to ED for evaluation. Patient was confused and lethargic and unable to provide history. He was seen and evaluated in ED and found to be in distress and unable to protect his airway and was therefore intubated, placed on ventilator and admitted to ICU. Patient diagnosed with acute resp failure, renal failure(acute vs acute on chronic) , Encephalopathy, Acidosis. He is followed by ID Physician for HIV/AIDS. His renal failure worsened therefore started on hemodialysis for SHRUTHI due to ATN, now ESRD. He has had a prolonged course, diagnosed with acute resp failure, sepsis , toxic metabolic encephalopathy. He is on HAART. he is now stable for discharge. Awaiting egg caser to arrange dialysis outpatient and home health. Hospitalist Physical - Constitutional Vitals: Temp Pulse Resp BP Pulse Ox 99.0 F 103 H 20 131/98 99 11/27/18 00:17 11/27/18 05:39 11/27/18 00:17 11/27/18 05:39 11/27/18 00:17 General appearance: Present: no acute distress - EENT Eyes: Present: PERRL, EOM intact ENT: hearing intact, clear oral mucosa, dentition normal - Neck Neck: Present: supple, normal ROM - Respiratory Respiratory effort: normal Respiratory: bilateral: CTA - Cardiovascular Rhythm: regular Heart Sounds: Present: S1 & S2. Absent: gallop, rub - Extremities Extremities: no ischemia, No edema, Full ROM - Abdominal General gastrointestinal: soft, non-tender, non-distended, normal bowel sounds - Integumentary Integumentary: Present: clear, warm, dry - Neurologic Neurologic: CNII-XII intact, moves all extremities Results - Labs CBC & Chem 7: 11/27/18 05:27 11/27/18 05:27 Labs: Laboratory Last Values WBC 6.0 K/mm3 (4.5-11.0) 11/27/18 05:27 RBC 3.02 M/mm3 (3.65-5.03) L 11/27/18 05:27 Hgb 8.6 gm/dl (11.8-15.2) L 11/27/18 05:27 Hct 27.1 % (35.5-45.6) L 11/27/18 05:27 MCV 90 fl (84-94) 11/27/18 05:27 MCH 28 pg (28-32) 11/27/18 05:27 MCHC 32 % (32-34) 11/27/18 05:27 RDW 20.5 % (13.2-15.2) H 11/27/18 05:27 Plt Count 196 K/mm3 (140-440) 11/27/18 05:27 Lymph % (Auto) Spindle Plumber 11/24/18 00:09 [place] % (Auto) Spindle Plumber 11/24/18 00:09 Eos % (Auto) Spindle Plumber 11/24/18 00:09 Baso % (Auto) Spindle Plumber 11/24/18 00:09 Lymph # Spindle Plumber 11/24/18 00:09 [place] # Spindle Plumber 11/24/18 00:09 Eos # Spindle Plumber 11/24/18 00:09 Baso # Spindle Plumber 11/24/18 00:09 Add Manual Diff Complete 11/24/18 00:09 Total Counted 100 11/24/18 00:09 Seg Neutrophils % Spindle Plumber 11/24/18 00:09 Seg Neuts % (Manual) 71.0 % (40.0-70.0) H 11/24/18 00:09 Band Neutrophils % 6.0 % 11/24/18 00:09 Lymphocytes % (Manual) 8.0 % (13.4-35.0) L 11/24/18 00:09 Reactive Lymphs % (Man) 0 % 11/24/18 00:09 Monocytes % (Manual) 10.0 % (0.0-7.3) H 11/24/18 00:09 Eosinophils % (Manual) 5.0 % (0.0-4.3) H 11/24/18 00:09 Basophils % (Manual) 0 % (0.0-1.8) 11/24/18 00:09 Metamyelocytes % 0 % 11/24/18 00:09 Myelocytes % 0 % 11/24/18 00:09 Promyelocytes % 0 % 11/24/18 00:09 Blast Cells % 0 % 11/24/18 00:09 Nucleated RBC % 25.0 % (0.0-0.9) H 11/24/18 00:09 Seg Neutrophils # Spindle Plumber 11/24/18 00:09 Seg Neutrophils # Man 5.8 K/mm3 (1.8-7.7) 11/24/18 00:09 Band Neutrophils # 0.5 K/mm3 11/24/18 00:09 Abs Lymphs (Manual) 267 cells/uL (850-3900) L 10/11/18 17:36 Lymphocytes # (Manual) 0.6 K/mm3 (1.2-5.4) L 11/24/18 00:09 Abs React Lymphs (Man) 0.0 K/mm3 11/24/18 00:09 Monocytes # (Manual) 0.8 K/mm3 (0.0-0.8) 11/24/18 00:09 Eosinophils # (Manual) 0.4 K/mm3 (0.0-0.4) 11/24/18 00:09 Basophils # (Manual) 0.0 K/mm3 (0.0-0.1) 11/24/18 00:09 Metamyelocytes # 0.0 K/mm3 11/24/18 00:09 Myelocytes # 0.0 K/mm3 11/24/18 00:09 Promyelocytes # 0.0 K/mm3 11/24/18 00:09 Blast Cells # 0.0 K/mm3 11/24/18 00:09 Pathologist Review 10/15/18 03:14 WBC Morphology Not Reportable 11/24/18 00:09 Hypersegmented Neuts Not Reportable 11/24/18 00:09 Hyposegmented Neuts Not Reportable 11/24/18 00:09 Hypogranular Neuts Not Reportable 11/24/18 00:09 Smudge Cells Not Reportable 11/24/18 00:09 Toxic Granulation Not Reportable 11/24/18 00:09 Toxic Vacuolation Not Reportable 11/24/18 00:09 Dohle Bodies Not Reportable 11/24/18 00:09 Pelger-Huet Anomaly Not Reportable 11/24/18 00:09 Kartik Rods Not Reportable 11/24/18 00:09 Platelet Estimate Appears normal 11/24/18 00:09 Clumped Platelets Not Reportable 11/24/18 00:09 Plt Clumps, EDTA Not Reportable 11/24/18 00:09 Large Platelets Not Reportable 11/24/18 00:09 Giant Platelets Not Reportable 11/24/18 00:09 Platelet Satelliting Not Reportable 11/24/18 00:09 Plt Morphology Comment Not Reportable 11/24/18 00:09 RBC Morphology Not Reportable 11/24/18 00:09 Dimorphic RBCs Not Reportable 11/24/18 00:09 Polychromasia Few 11/24/18 00:09 Hypochromasia 1+ 11/24/18 00:09 Poikilocytosis Not Reportable 11/24/18 00:09 Anisocytosis 1+ 11/24/18 00:09 Microcytosis Rare 11/24/18 00:09 Macrocytosis Not Reportable 11/24/18 00:09 Spherocytes Not Reportable 11/24/18 00:09 Pappenheimer Bodies Not Reportable 11/24/18 00:09 Sickle Cells Not Reportable 11/24/18 00:09 Target Cells Few 11/24/18 00:09 Tear Drop Cells Not Reportable 11/24/18 00:09 Ovalocytes Not Reportable 11/24/18 00:09 Stomatocytes Few 11/10/18 06:54 Helmet Cells Not Reportable 11/24/18 00:09 Smith-Vista Bodies Not Reportable 11/24/18 00:09 [place] Rings Not Reportable 11/24/18 00:09 Jani Cells Not Reportable 11/24/18 00:09 Bite Cells Not Reportable 11/24/18 00:09 Crenated Cell Not Reportable 11/24/18 00:09 Elliptocytes Not Reportable 11/24/18 00:09 Acanthocytes (Spur) Not Reportable 11/24/18 00:09 Rouleaux Not Reportable 11/24/18 00:09 Hemoglobin C Crystals Not Reportable 11/24/18 00:09 Schistocytes Not Reportable 11/24/18 00:09 Malaria parasites Not Reportable 11/24/18 00:09 Jv Bodies Not Reportable 11/24/18 00:09 Hem Pathologist Commnt No 11/24/18 00:09 PT 17.7 Sec. (12.2-14.9) H 11/06/18 13:18 INR 1.36 (0.87-1.13) H 11/06/18 13:18 APTT 30.6 Sec. (24.2-36.6) 11/06/18 13:18 Thrombin Time 16.9 Sec. (15.1-19.6) 10/10/18 15:02 Heparin Anti-Xa Level < 0.10 U.I./ml (0.3-0.7) L 11/07/18 21:31 Heparin Anti-Xa, Unfract Negative (Negative) 10/25/18 05:59 POC ABG pH 7.455 (7.35-7.45) H 11/23/18 13:46 POC ABG pCO2 32.0 (35-45) L 10/21/18 09:49 POC ABG pO2 111 (80-105) H 11/23/18 13:46 POC ABG HCO3 17.3 (22-26 mml/L) 11/23/18 13:46 POC ABG Total CO2 18 (23-27mmol/L) 11/23/18 13:46 POC ABG O2 Sat 99 11/23/18 13:46 POC ABG Base Excess -7 ((-2) - (+3)mmol/L) 11/23/18 13:46 FiO2 21 % 11/23/18 13:46 Sodium 137 mmol/L (137-145) 11/27/18 05:27 Potassium 3.5 mmol/L (3.6-5.0) L 11/27/18 05:27 Chloride 91.8 mmol/L (98-107) L 11/27/18 05:27 Carbon Dioxide 26 mmol/L (22-30) 11/27/18 05:27 Anion Gap 23 mmol/L 11/27/18 05:27 BUN 15 mg/dL (9-20) 11/27/18 05:27 Creatinine 3.6 mg/dL (0.8-1.5) H D 11/27/18 05:27 Estimated GFR 23 ml/min 11/27/18 05:27 BUN/Creatinine Ratio 4 % 11/27/18 05:27 Glucose 101 mg/dL (75-100) H 11/27/18 05:27 POC Glucose 110 (70-105) H 11/23/18 13:35 Osmolality 338 Mosm/kg 10/11/18 17:35 Lactic Acid 1.80 mmol/L (0.7-2.0) 10/12/18 05:59 Uric Acid 13.4 mg/dL (3.5-7.6) H 10/11/18 17:36 Calcium 9.3 mg/dL (8.4-10.2) 11/27/18 05:27 Phosphorus 6.50 mg/dL (2.5-4.5) H 11/24/18 10:53 Magnesium 3.10 mg/dL (1.7-2.3) H 10/18/18 05:03 Iron 147 ug/dL (49-181) 10/11/18 17:36 TIBC 236 mcg/dL (250-450) L 10/11/18 17:36 Ferritin 07364.0 ng/mL (13.0-400.0) H 10/11/18 17:35 Total Bilirubin 0.30 mg/dL (0.1-1.2) 11/19/18 05:31 Direct Bilirubin 0.2 mg/dL (0-0.2) 10/16/18 04:07 Indirect Bilirubin 0.3 mg/dL 10/16/18 04:07 AST 26 units/L (5-40) 11/19/18 05:31 ALT 11 units/L (7-56) 11/19/18 05:31 Alkaline Phosphatase 74 units/L (35-129) 11/19/18 05:31 Ammonia 25.0 umol/L (25-60) 10/17/18 14:59 Lactate Dehydrogenase 925 units/L (91-180) H 10/22/18 05:51 Troponin T 0.357 ng/mL (0.00-0.029) H* 11/06/18 05:54 NT-Pro-B Natriuret Pep 67299 pg/mL (0-450) H 10/10/18 15:42 Total Protein 7.6 g/dL (6.3-8.2) 11/19/18 05:31 Albumin 2.6 g/dL (3.9-5) L 11/19/18 05:31 Albumin/Globulin Ratio 0.5 % 11/19/18 05:31 Triglycerides 306 mg/dL (2-149) H 11/05/18 11:29 Cholesterol 145 mg/dL (50-199) 11/05/18 11:29 LDL Cholesterol Direct 89 mg/dL (50-130) 11/05/18 11:29 HDL Cholesterol 25 mg/dL (40-59) L 11/05/18 11:29 Cholesterol/HDL Ratio 5.80 % 11/05/18 11:29 Serotonin Release Assay See scanned result 10/25/18 05:59 Vitamin B12 912.3 pg/mL (211-911) H 10/14/18 08:51 Folate 8.32 ng/mL (7.3-26.0) 10/14/18 08:51 PTH Intact 118.0 pg/mL (15-65) H 11/24/18 10:53 Urine Creatinine 30.8 mg/dL (0.1-20.0) H 10/13/18 04:43 Urine Sodium 106 mmol/L 10/13/18 04:43 Urine Total Protein 75 mg/dL (5-11.8) H 10/13/18 04:43 CSF Appearance Clear 10/16/18 15:00 CSF Color Colorless 10/16/18 15:00 CSF WBC 4 /mm3 (1-10) 10/16/18 15:00 CSF RBC 113 /mm3 (0-0) 10/16/18 15:00 CSF Seg Neutrophils 8.0 % (0-6) 10/16/18 15:00 CSF Lymphocytes % 76.0 % (40-80) 10/16/18 15:00 CSF Reactive Lymphs 2.0 % 10/16/18 15:00 CSF Monocytes % 14.0 % (15-45) 10/16/18 15:00 CSF Eosinophils % 0 % 10/16/18 15:00 CSF Basophils 0 % 10/16/18 15:00 CSF Pathologist Review C 10/16/18 15:00 CSF Glucose 73 mg/dL 10/16/18 15:00 CSF Total Protein 55 mg/dL 10/16/18 15:00 CSF VDRL Nonreactive (Nonreactive) 10/16/18 15:00 Random Vancomycin 21.1 ug/mL (0-40.0) 11/20/18 06:15 Immunofix Electrophor see below 10/11/18 17:36 RENO Screen Negative (Negative) 10/21/18 15:07 Proteinase 3 (PR3) Ab <1.0 AI (<1.0) 10/21/18 15:07 Myeloperoxidase Ab <1.0 AI (<1.0) 10/21/18 15:07 Heparin-induced Plt Ab Negative (Negative) 10/25/18 05:59 UF Heparin High Dose 0 % Release 10/25/18 05:59 VJ UFH Low Dose 0.1 0 % Release 10/25/18 05:59 VJ UFH Low Dose 0.5 14 % Release 10/25/18 05:59 Lymph Enumerat CD4/CD8 0.01 (0.86-5.00) L 10/11/18 17:36 % CD3 Cells 85 % (57-85) 10/11/18 17:36 Absolute CD3 Count 226 cells/uL (840-3060) L 10/11/18 17:36 % CD4 Cells 1 % (30-61) L 10/11/18 17:36 Absolute CD4 Count 3 cells/uL (490-1740) L 10/11/18 17:36 % CD8 Cells 82 % (12-42) H 10/11/18 17:36 Absolute CD8 Count 228 cells/uL (180-1170) 10/11/18 17:36 % CD19 Cells 6 % (6-29) 10/11/18 17:36 Absolute CD19 Count 16 cells/uL (110-660) L 10/11/18 17:36 RPR Titer 1:32 10/11/18 17:37 RPR Reactive (Nonreactive) 10/11/18 17:37 T.pallidum Ab (FTA-ABS) Reactive (Nonreactive) H 10/12/18 Unknown CMV DNA PCR log copy messenger/mL See scanned result 10/24/18 17:47 Hepatitis A IgM Ab Non-reactive (NonReactive) 11/21/18 09:58 Hep Bs Antigen Non-reactive (Negative) 11/21/18 09:58 Hep B Core IgM Ab Non-reactive (NonReactive) 11/21/18 09:58 Hepatitis C Antibody Non-reactive (NonReactive) 11/21/18 09:58 HIV-1 RNA PCR copies/ml 214905 Copies/mL H 10/11/18 17:36 HIV-1 RNA (PCR) log 5.51 Log cps/mL H 10/11/18 17:36 HIV-1 Genotyping See scanned results 10/29/18 19:48 Toxoplasma IgG Ab <7.20 IU/mL (<7.20) 10/13/18 07:54 Miscellaneous Test Flexitest 1 10/31/18 06:43 Blood Type A POSITIVE 11/08/18 11:28 Antibody Screen Negative 11/08/18 11:28 Crossmatch See Detail 11/08/18 11:28 Active Medications - Current Medications Current Medications: Generic Name Dose Route Start Last Admin Trade Name Freq PRN Reason Stop Dose Admin Acetaminophen 500 mg 10/16/18 10:02 11/26/18 20:30 Tylenol PO 500 mg Q6H PRN Administration Fever >101 Albumin Human 25 gm 11/04/18 16:14 Alburx 25% (Albumin) IV CHON PRN Hypotension Albuterol 2.5 mg 11/21/18 07:24 Proventil IH Q4HRT PRN Shortness Of Breath Lipase/Protease/Amylase 1 each 10/11/18 12:58 Pancreaze 10,500 Unit FEEDTUBE PRN PRN For Clogged Feeding Tube Atovaquone 1,500 mg 11/14/18 10:00 11/26/18 11:47 Mepron PO Not Given QDAY RUBI Darunavir 800 mg 10/30/18 18:00 11/26/18 11:48 Prezista PO Not Given QDAY [facility] Emtricitabine 200 mg 11/01/18 10:00 11/25/18 09:23 Emtriva PO 200 mg Q48HR RUBI Administration Epoetin Dany 20,000 unit 11/12/18 15:00 11/26/18 18:15 Procrit IV 20,000 unit .MWF RUBI Administration Heparin Sodium (Porcine) 5,000 unit 11/04/18 16:15 Heparin IV CHON PRN hemodialysis Heparin Sodium (Porcine) 5,000 unit 11/07/18 22:00 11/27/18 05:38 Heparin SUB-Q 5,000 unit Q8HR [facility] Administration Hydrophilic Ointment 1 applic 10/10/18 17:53 Vaseline Lip Therapy TP Q2HR PRN Dry Lips Sodium Chloride 100 mls @ 999 mls/hr 11/12/18 09:51 Nacl 0.9% IV CHON PRN Hypotension Ipratropium [place] 0.5 mg 11/20/18 22:07 Atrovent IH Q4HRT PRN Shortness Of Breath Lansoprazole 30 mg 10/15/18 10:00 11/26/18 22:18 Prevacid Solutab FEEDTUBE 30 mg BID [facility] Administration Metoprolol Tartrate 5 mg 10/18/18 14:05 11/21/18 21:32 Lopressor IV 5 mg Q6HR PRN Administration Tachyarrhythmias Metoprolol Tartrate 25 mg 11/24/18 13:00 11/27/18 05:39 Lopressor PO 25 mg Q6HR RUBI Administration Multi-Ingred Cream/Lotion/Oil/Oint 1 applic 10/10/18 17:53 Artificial Tears Ophth Oint OU Q4HR PRN Dry Eye(s) Multivitamins 1 each 10/11/18 10:00 11/26/18 11:49 Theragran Tab PO Not Given DAILY [facility] Ondansetron HCl 4 mg 11/12/18 15:05 Zofran IV Q8H PRN N/V unrelieved by Buddy Faye Hydrophilic Mucilloid 1 each 11/08/18 18:00 11/26/18 11:48 Metamucil PO Not Given QDAY [facility] Ritonavir 100 mg 10/30/18 18:00 11/26/18 11:48 Norvir PO Not Given QDAY RUBI Sertraline HCl 50 mg 11/21/18 19:52 11/26/18 11:50 Zoloft PO Not Given QDAY RUBI Simple Syrup 15 ml 10/11/18 12:58 Simple Syrup FEEDTUBE PRN PRN Hypoglycemia Simple Syrup 30 ml 10/11/18 12:58 Simple Syrup FEEDTUBE PRN PRN Hypoglycemia Sodium Bicarbonate 325 mg 10/11/18 12:58 Sodium Bicarbonate FEEDTUBE PRN PRN For Clogged Feeding Tube Sodium Chloride 10 ml 10/10/18 22:00 11/26/18 22:19 Sodium Chloride Flush Syringe 10 Ml IV 10 ml BID RUBI Administration Sodium Chloride 10 ml 10/10/18 18:12 Sodium Chloride Flush Syringe 10 Ml IV PRN PRN LINE FLUSH Tenofovir Disoproxil Fumarate 300 mg 10/30/18 17:45 11/23/18 17:06 Viread PO Not Given Q96H RUBI Nutrition/Malnutrition Assess - Dietary Evaluation Nutrition/Malnutrition Findings: Nutrition Notes Start: 10/11/18 11:14 Freq: Status: Active Protocol: Document 11/26/18 14:28 RM (Rec: 11/26/18 14:34 RM [id number]) Nutrition Notes Initial or Follow up Reassessment Current Diagnosis Acute Kidney Injury,CKD(stage I-IV),Hypertension,Heart Failure,Stroke Other Pertinent Diagnosis Depression,Dysphagia,on HD, Acute encephalopathy,HIV/AIDS, Syphilis Current Diet Pureed Labs/Tests Reviewed Pertinent Medications Reviewed Height 5 ft 9 in Weight 51 kg [place] Body Weight (kg) 72.72 BMI 16.6 Subjective/Other Information Pt confused at time of visit. Pt tech stated that pt eats 25 % of his meals. Unsure of whether pt has had any Nepro. Percent of energy/protein needs met: 43%/66% Burn Absent Trauma Absent #2 Nutrition Diagnosis Malnutrition Diagnosis Progress(for reassessment Continues documentation) #1 Nutrition Diagnosis Inadequate oral intake Diagnosis Progress(for reassessment Continues documentation) Is patient on ventilator? No Is Patient Ambulatory and/or Out of Bed No REE-([facility]-confined to bed) 1683.876 Kcal/Kg value to use for calculation 40 Approximate Energy Requirements Using 2040 kcal/Kg Calculation Used for Recommendations Kcal/kg Additional Notes Pro needs 1.2-1.5g/k-72g/ day Fluid needs 1ml/kcal Nutrition Intervention Change Diet Order: Pureed diet Add Supplement/Snack (indicate name/kcal Nepro 1 daily /protein ) Provides kCal: 425 Provides Protein (gm) 19 Goal #1 Meet at least 75% of calorie and protein needs via PO and ONS intakes Anticipated Discharge Needs: Pureed, Renal diet Follow-Up By: 12/05/18 Additional Comments Follow for PO and ONS intakes
[2018-11-27] MEDS: PREVACID SOLUTAB FEEDTUBE SCH ×2 (11:43→21:35)
[2018-11-27] MEDS: THERAGRAN Tab PO SCH (11:44)
[2018-11-27] MEDS: PREZISTA PO SCH (11:44)
[2018-11-27] MEDS: ZOLOFT PO SCH (11:45)
[2018-11-27] MEDS: MEPRON PO SCH (11:47)
[2018-11-27] MEDS: NORVIR PO SCH (11:49)
[2018-11-27] MEDS: EMTRIVA PO SCH (11:49)
[2018-11-27] MEDS: SODIUM CHLORIDE FLUSH SYRINGE 10 ML IV SCH ×2 (11:50→21:35)
[2018-11-27] MEDS: METAMUCIL PO SCH (11:58)
[2018-11-27] MEDS: TIVICAY PO SCH (11:59)
--- NOTE | 2018-11-27 14:26 | Consultation ---
History of Present Illness Consult date: 11/27/18 Chief complaint: Sacral pressure ulcer - History of present illness History of present illness: 43 yo male admitted with AMS, AIDS, CVA and sacral pressure ulcer. Past History Past Medical History: HIV/AIDS, hypertension, stroke Past Surgical History: No surgical history, Other (reviewed) Social history: single, smoking. denies: alcohol abuse, prescription drug abuse Family history: hypertension Medications and Allergies Allergies Allergy/AdvReac Type Severity Reaction Status Date / Time Sulfa (Sulfonamide Allergy Unknown Verified 10/10/18 16:54 Antibiotics) Home Medications Medication Instructions Recorded Confirmed Last Taken Type Acetaminophen [Tylenol] 1,000 mg PO Q6HR 10/10/18 10/10/18 Unknown History Amlodipine Besylate [Norvasc] 10 mg PO QDAY 10/10/18 10/10/18 Unknown History Aspirin [Adult Aspirin] 81 mg PO DAILY 10/10/18 10/10/18 Unknown History Atorvastatin [Lipitor Tab] 80 mg PO DAILY 10/10/18 10/10/18 Unknown History Losartan [Cozaar] 100 mg PO QDAY 10/10/18 10/10/18 Unknown History Multivitamin [Multiple Vitamins] 1 each PO DAILY 10/10/18 10/10/18 Unknown History hydroCHLOROthiazide [HCTZ] 25 mg PO QDAY 10/10/18 10/10/18 Unknown History Active Meds: Active Medications Acetaminophen (Tylenol) 500 mg PO Q6H PRN PRN Reason: Fever >101 Last Admin: 11/26/18 20:30 Dose: 500 mg Documented by: Albumin Human (Alburx 25% (Albumin)) 25 gm IV CHON PRN PRN Reason: Hypotension Albuterol (Proventil) 2.5 mg IH Q4HRT PRN PRN Reason: Shortness Of Breath Lipase/Protease/Amylase (Pancreaze Dr 10,500 Unit) 1 each FEEDTUBE PRN PRN PRN Reason: For Clogged Feeding Tube Atovaquone (Mepron) 1,500 mg PO QDAY [facility] Last Admin: 11/27/18 11:47 Dose: 1,500 mg Documented by: Darunavir (Prezista) 800 mg PO QDAY [facility] Last Admin: 11/27/18 11:44 Dose: 800 mg Documented by: Emtricitabine (Emtriva) 200 mg PO Q48HR [facility] Last Admin: 11/27/18 11:49 Dose: 200 mg Documented by: Epoetin Dany (Procrit) 20,000 unit IV .MWF [facility] Last Admin: 11/26/18 18:15 Dose: 20,000 unit Documented by: Heparin Sodium (Porcine) (Heparin) 5,000 unit IV CHON PRN PRN Reason: hemodialysis Heparin Sodium (Porcine) (Heparin) 5,000 unit SUB-Q Q8HR [facility] Last Admin: 11/27/18 05:38 Dose: 5,000 unit Documented by: Hydrophilic Ointment (Vaseline Lip Therapy) 1 applic TP Q2HR PRN PRN Reason: Dry Lips Sodium Chloride (Nacl 0.9%) 100 mls @ 999 mls/hr IV CHON PRN PRN Reason: Hypotension Ipratropium [place] (Atrovent) 0.5 mg IH Q4HRT PRN PRN Reason: Shortness Of Breath Lansoprazole (Prevacid Solutab) 30 mg FEEDTUBE BID [facility] Last Admin: 11/27/18 11:43 Dose: 30 mg Documented by: Metoprolol Tartrate (Lopressor) 5 mg IV Q6HR PRN PRN Reason: Tachyarrhythmias Last Admin: 11/21/18 21:32 Dose: 5 mg Documented by: Metoprolol Tartrate (Lopressor) 25 mg PO Q6HR [facility] Last Admin: 11/27/18 11:43 Dose: 25 mg Documented by: Multi-Ingred Cream/Lotion/Oil/Oint (Artificial Tears Ophth Oint) 1 applic OU Q4HR PRN PRN Reason: Dry Eye(s) Multivitamins (Theragran Tab) 1 each PO DAILY [facility] Last Admin: 11/27/18 11:44 Dose: 1 each Documented by: Ondansetron HCl (Zofran) 4 mg IV Q8H PRN PRN Reason: N/V unrelieved by Buddy Faye Hydrophilic Mucilloid (Metamucil) 1 each PO QDAY [facility] Last Admin: 11/27/18 11:58 Dose: 1 each Documented by: Ritonavir (Norvir) 100 mg PO QDAY [facility] Last Admin: 11/27/18 11:49 Dose: 100 mg Documented by: Sertraline HCl (Zoloft) 50 mg PO QDAY [facility] Last Admin: 11/27/18 11:45 Dose: 50 mg Documented by: Simple Syrup (Simple Syrup) 15 ml FEEDTUBE PRN PRN PRN Reason: Hypoglycemia Simple Syrup (Simple Syrup) 30 ml FEEDTUBE PRN PRN PRN Reason: Hypoglycemia Sodium Bicarbonate (Sodium Bicarbonate) 325 mg FEEDTUBE PRN PRN PRN Reason: For Clogged Feeding Tube Sodium Chloride (Sodium Chloride Flush Syringe 10 Ml) 10 ml IV BID [facility] Last Admin: 11/27/18 11:50 Dose: 10 ml Documented by: Sodium Chloride (Sodium Chloride Flush Syringe 10 Ml) 10 ml IV PRN PRN PRN Reason: LINE FLUSH Tenofovir Disoproxil Fumarate (Viread) 300 mg PO Q96H [facility] Last Admin: 11/23/18 17:06 Dose: Not Given Documented by: Review of Systems All systems: negative (none) Exam Vital Signs Pulse BP Pulse Ox 138 H 236/167 100 10/10/18 15:06 10/10/18 15:06 10/10/18 15:06 - General physical appearance Positive: cathetic, chronically ill - Eyes Positive: PERRL, normal occular movement - ENT Positive: normal pinna, normal nares, normal mucosa, no hearing loss, no congestion - Neck Positive: no masses, no bruits, trachea midline, no venous distension - Respiratory Positive: normal expansion, normal respiratory effort, clear to auscultation - Cardiovascular Rhythm: regular Heart Sounds: Present: S1 & S2. Absent: rub, click - Extremities Extremities: no ischemia, pulses symmetrical, No edema - Breasts Breasts: deferred - Abdomen Abdomen: Present: soft, bowel sounds normal. Absent: tender, distended Hernia: none - Genitourinary Male Genitourinary: deferred - Integumentary other (There is a 5 X 6 X ? cm unstageable sacral pressure ulcer and two 1.5 X 1.5 X 0.2 cm right hip stage 2 right hip ulcers.) - Neurologic Neurologic: alert and oriented to time, place and person, motor strength and sensation are grossly intact - Musculoskeletal normal gait, normal posture - Psychiatric Psychiatric: appropriate mood/affect, intact judgment & insight Results - Labs 11/27/18 05:27 11/27/18 05:27 Abnormal lab results 11/27/18 11/27/18 Range/Units 05:27 05:27 RBC 3.02 L (3.65-5.03) M/mm3 Hgb 8.6 L (11.8-15.2) gm/dl Hct 27.1 L (35.5-45.6) % RDW 20.5 H (13.2-15.2) % Potassium 3.5 L (3.6-5.0) mmol/L Chloride 91.8 L (98-107) mmol/L Creatinine 3.6 H D (0.8-1.5) mg/dL Glucose 101 H (75-100) mg/dL Diabetes panel 11/27/18 Range/Units 05:27 Sodium 137 (137-145) mmol/L Potassium 3.5 L (3.6-5.0) mmol/L Chloride 91.8 L (98-107) mmol/L Carbon Dioxide 26 (22-30) mmol/L BUN 15 (9-20) mg/dL Creatinine 3.6 H D (0.8-1.5) mg/dL Glucose 101 H (75-100) mg/dL Calcium 9.3 (8.4-10.2) mg/dL Calcium panel 11/27/18 Range/Units 05:27 Calcium 9.3 (8.4-10.2) mg/dL Pituitary panel 11/27/18 Range/Units 05:27 Sodium 137 (137-145) mmol/L Potassium 3.5 L (3.6-5.0) mmol/L Chloride 91.8 L (98-107) mmol/L Carbon Dioxide 26 (22-30) mmol/L BUN 15 (9-20) mg/dL Creatinine 3.6 H D (0.8-1.5) mg/dL Glucose 101 H (75-100) mg/dL Calcium 9.3 (8.4-10.2) mg/dL Adrenal panel 11/27/18 Range/Units 05:27 Sodium 137 (137-145) mmol/L Potassium 3.5 L (3.6-5.0) mmol/L Chloride 91.8 L (98-107) mmol/L Carbon Dioxide 26 (22-30) mmol/L BUN 15 (9-20) mg/dL Creatinine 3.6 H D (0.8-1.5) mg/dL Glucose 101 H (75-100) mg/dL Calcium 9.3 (8.4-10.2) mg/dL Assessment and Plan - Patient Problems (1) Unstageable pressure ulcer of sacral region Current Visit: Yes Status: Acute Plan to address problem: 1) Off-loading 2) Intense nutritional support 3) I will debride his ulcerations at the bedside tomorrow. 4) F/u in Wound Clinic
[2018-11-27] MEDS: VIREAD PO SCH (18:27)
[2018-11-28] MEDS: HEPARIN SUB-Q SCH ×3 (05:58→21:53)
[2018-11-28] MEDS: LOPRESSOR PO SCH ×3 (05:58→18:00)
[2018-11-28 07:27] LABS: Hematocrit 25.7 % (35.5-45.6); Hemoglobin 8.2 gm/dl (11.8-15.2); Mean Corpuscular HGB Conc 32 % (32-34); Mean Corpuscular Volume 89 fl (84-94); Platelet Count 251 K/mm3 (140-440); Red Blood Count 2.88 M/mm3 (3.65-5.03); Red Cell Distribution Width 20.7 % (13.2-15.2)
[2018-11-28 07:46] LABS: Calcium 8.6 mg/dL (8.4-10.2)
[2018-11-28 08:59] LABS: Anisocytosis 1+; Band Neutrophils # (Manual) 0.2 K/mm3; Basophils % (Manual) 0 % (0.0-1.8); Eosinophils % (Manual) 0 % (0.0-4.3); Large Platelets 1+; Poikilocytosis 2+; Total Cells Counted 100
[2018-11-28 09:00] LABS: Macrocytosis 1+; Target Cells 2+
[2018-11-28 09:01] LABS: Platelet Estimate Consistent w Auto
--- NOTE | 2018-11-28 10:03 | Progress Note ---
Assessment and Plan Cultures: Blood culture 10/10/2018 no growth. Sputum culture 10/10/2018 Ana Paula albicans. Crypto Ag 10/10/2018 neg. Urine culture 10/13/2018 no growth. Blood culture 10/17/2018 no growth. Blood culture 10/20/2018: no growth Stool Occult Blood 10/23/18: positive Blood culture 10/29/18: negative Urine culture 10/31/18: Ana Paula Blood culture 11/05/18: No growth Blood culture 11/14/18: no growth Assessment: 43 y/o male with history of HIV (unknown CD4/VL/ART intake), HTN, CVA 6 months ago at [place], Nicotine Dependence, Malnutrition; admitted on 10/10/2018 due to AMS (confusion/lethargy) and slurred speech for 24 h: 1) SIRS versus sepsis: Etiology unknown. Could be related to decubiti, seems to be responding to abx - CXR neg - BNP 70K - Troponin 0.2 - LDH 2242 -chest CT :Patchy airspace disease in the right lower lobe compatible with pneumonia. No evidence of pleural effusion. -repeat CXR : clear lungs and normal bony and soft tissue structures. Patchy airspace disease in the right lower lobe has resolved since 11/07/18 2) Acute hypoxemic respiratory failure: for airway protection +/- ? pneumonia. Repeat CXR no consolidations. Ana Paula in tracha sp likely a colonizer. Extubated 10/15. Continues on atovaquone as prophylaxis. Patient has sulfa allergy. 3) Acute encephalopathy: Improved.; multifactorial ?from hypertensive urgency +/- brain opportunistic infection. DDx: Neurosyphilis, VZV/CMV encephalitis versus [employer]YSOM[employer]IC TECH[employer]OLOGIST lymphoma versus less likely PML v/s ischemic CVA (seems more likely) - CT head showed bilateral chronic ischemic changes. - Brain MRI showed areas of edema in the basal ganglia and thalami bilaterally, within the jamari and in the cerebral hemispheres bilaterally in the subcortical and deep white matter and in portions of the cortex, areas of enceph alomalacia in the basal ganglia bilaterally with evidence of previous hemorrhage or mineral deposition and numerous small foci of acute infarct in the basal ganglia bilaterally, subinsular regions bilaterally and medial temporal lobes bilaterally and possibly in the occipital cortex bilaterally. - Brain MRA showed possible dissection versus artifact at the basilar artery. Luminal irregularity at the anterior, middle, and posterior cerebral arteries as well as the carotid siphons may represent mild to moderate atherosclerotic disease. More notable narrowing at the distal right A1 segment. Differential diagnosis includes motion artifact and vasculitis. Vertebral arteries are not clearly visualized. - CSF wbc 4, rbc 113, Seg 8%, Lymph 76%, protein 55, glucose 73 which is not c/w meningitis - RPR reactive 1:32 / FTA ABs reactive, treated with penicillin and ceftriaxone but CSF VDRL Non reactive. - Toxoplasma IgG negative, CSF Toxoplasma PCR: negative - Blood CMV DNA VL=1,370, 3.1 log on ganciclovir - likely reactivation - Repeat CMV DNA PCR 10/24/2018: <200. Off ganciclovir. - Glucan Assay: negative 4) Anemia/thrombocytopenia: improving. 5) Acute on CKD or SHRUTHI ? unclear etiology: on HD. RIJ permacath placement today. 6) DM: uncontrolled. 7) HIV/AIDS: VL 320,000 / CD4=3 on 10/11/2018. 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 Started HIV treatment on 10/30/2018. Continue HIV therapy,renally adjusted TDF, FTC along with dolutegravir and ritonavir boosted darunavir. 8) Decubitus Ulcers: Left buttocks wound measures 9.0 x 2.5, Sacral wound measures 3.5 x 3.5, 80 % necrotic tissue, Right buttocks wound measures 5.0 x 3.[address] Go to perform bedside debridement of sacral pressure ulcer 11/29/18. Recommendations: continue atovaquone 750 mg BID continue HIV therapy: renally adjusted TDF, FTC along with dolutegravir and ritonavir boosted darunavir Monitor off antibiotics continue wound care f/u CD4 and HIV RNA [facility] M: [phone] O:[phone] Subjective Date of service: 11/28/18 Principal diagnosis: anemia - HIV Objective - Constitutional Vitals: Vital Signs Temp Pulse Resp BP Pulse Ox 98.3 F 110 H 24 138/99 100 11/28/18 05:18 11/28/18 05:18 11/28/18 05:18 11/28/18 05:18 11/28/18 05:18 Temperature -Last 24 Hours Temperature 98.3 F Temperature 98.3 F Temperature 99.7 F Temperature 99.8 F - Labs CBC & Chem 7: 11/28/18 06:46 11/28/18 06:46 Labs: Abnormal lab results 11/28/18 11/28/18 Range/Units 06:46 06:46 RBC 2.88 L (3.65-5.03) M/mm3 Hgb 8.2 L (11.8-15.2) gm/dl Hct 25.7 L (35.5-45.6) % RDW 20.7 H (13.2-15.2) % Seg Neuts % (Manual) 84.0 H (40.0-70.0) % Lymphocytes % (Manual) 5.0 L (13.4-35.0) % Monocytes % (Manual) 9.0 H (0.0-7.3) % Nucleated RBC % 2.0 H (0.0-0.9) % Lymphocytes # (Manual) 0.4 L (1.2-5.4) K/mm3 Sodium 136 L (137-145) mmol/L Potassium 3.5 L (3.6-5.0) mmol/L Chloride 93.9 L (98-107) mmol/L BUN 31 H (9-20) mg/dL Creatinine 5.8 H D (0.8-1.5) mg/dL Glucose 111 H (75-100) mg/dL
[2018-11-28] MEDS: MEPRON PO SCH (11:15)
[2018-11-28] MEDS: PREVACID SOLUTAB FEEDTUBE SCH ×2 (11:15→21:53)
[2018-11-28] MEDS: PREZISTA PO SCH (11:16)
[2018-11-28] MEDS: SODIUM CHLORIDE FLUSH SYRINGE 10 ML IV SCH ×2 (11:16→21:54)
[2018-11-28] MEDS: THERAGRAN Tab PO SCH (11:16)
[2018-11-28] MEDS: NORVIR PO SCH (11:16)
[2018-11-28] MEDS: METAMUCIL PO SCH (11:17)
[2018-11-28] MEDS: ZOLOFT PO SCH (11:18)
--- NOTE | 2018-11-28 11:18 | Progress Note ---
Assessment and Plan Assessment: * ESRD --Permcath insertion 11/23 * HIV/AIDS * Acute encephalopathy * Acute hypoxic respiratory failure s/p mechanical ventilation * Hx of urinary retention * Anemia * Hyperkalemia - resolved Plan: * Continue HD qMWF schedule * UF as tolerated * ID following * Surgery recommendations noted * Epogen TIW prn * Continue antiHTN medications * Note PT recommendation for SHANDRA * Outpatient HD clinic placement in progress * PT notes reviewed; patient is not ambulatory, "max assistance, max fall risk" . Subjective Date of service: 11/28/18 Principal diagnosis: anemia - HIV Objective - Vital Signs Vital signs: Vital Signs - 12hr 11/28/18 05:18 Temperature 98.3 F Pulse Rate 110 H Respiratory 24 Rate Blood Pressure 138/99 O2 Sat by Pulse 100 Oximetry - Lab 11/28/18 06:46 11/28/18 06:46 Most recent lab results Calcium 8.6 mg/dL (8.4-10.2) 11/28/18 06:46 Phosphorus 6.50 mg/dL (2.5-4.5) H 11/24/18 10:53 Magnesium 3.10 mg/dL (1.7-2.3) H 10/18/18 05:03 Urine Creatinine 30.8 mg/dL (0.1-20.0) H 10/13/18 04:43 Urine Sodium 106 mmol/L 10/13/18 04:43 Urine Total Protein 75 mg/dL (5-11.8) H 10/13/18 04:43 Medications & Allergies - Medications Allergies/Adverse Reactions: Allergies Sulfa (Sulfonamide Antibiotics) Allergy (Verified 10/10/18 16:54) Unknown Home Medications: Home Medications Medication Instructions Recorded Confirmed Last Taken Type Acetaminophen [Tylenol] 1,000 mg PO Q6HR 10/10/18 10/10/18 Unknown History Amlodipine Besylate [Norvasc] 10 mg PO QDAY 10/10/18 10/10/18 Unknown History Aspirin [Adult Aspirin] 81 mg PO DAILY 10/10/18 10/10/18 Unknown History Atorvastatin [Lipitor Tab] 80 mg PO DAILY 10/10/18 10/10/18 Unknown History Losartan [Cozaar] 100 mg PO QDAY 10/10/18 10/10/18 Unknown History Multivitamin [Multiple Vitamins] 1 each PO DAILY 10/10/18 10/10/18 Unknown History hydroCHLOROthiazide [HCTZ] 25 mg PO QDAY 10/10/18 10/10/18 Unknown History Active Medications: Generic Name Dose Route Start Last Admin Trade Name Freq PRN Reason Stop Dose Admin Acetaminophen 500 mg 10/16/18 10:02 11/26/18 20:30 Tylenol PO 500 mg Q6H PRN Administration Fever >101 Albumin Human 25 gm 11/04/18 16:14 Alburx 25% (Albumin) IV COHN PRN Hypotension Albuterol 2.5 mg 11/21/18 07:24 Proventil IH Q4HRT PRN Shortness Of Breath Lipase/Protease/Amylase 1 each 10/11/18 12:58 Pancreaze 10,500 Unit FEEDTUBE PRN PRN For Clogged Feeding Tube Atovaquone 1,500 mg 11/14/18 10:00 11/27/18 11:47 Mepron PO 1,500 mg QDAY [facility] Administration Darunavir 800 mg 10/30/18 18:00 11/27/18 11:44 Prezista PO 800 mg QDAY [facility] Administration Emtricitabine 200 mg 11/01/18 10:00 11/27/18 11:49 Emtriva PO 200 mg Q48HR [facility] Administration Epoetin Dany 20,000 unit 11/12/18 15:00 11/26/18 18:15 Procrit IV 20,000 unit .MWF [facility] Administration Heparin Sodium (Porcine) 5,000 unit 11/04/18 16:15 Heparin IV CHON PRN hemodialysis Heparin Sodium (Porcine) 5,000 unit 11/07/18 22:00 11/28/18 05:58 Heparin SUB-Q 5,000 unit Q8HR [facility] Administration Hydrophilic Ointment 1 applic 10/10/18 17:53 Vaseline Lip Therapy TP Q2HR PRN Dry Lips Sodium Chloride 100 mls @ 999 mls/hr 11/12/18 09:51 Nacl 0.9% IV CHON PRN Hypotension Ipratropium [place] 0.5 mg 11/20/18 22:07 Atrovent IH Q4HRT PRN Shortness Of Breath Lansoprazole 30 mg 10/15/18 10:00 11/27/18 21:35 Prevacid Solutab FEEDTUBE 30 mg BID RU[facility] Administration Metoprolol Tartrate 5 mg 10/18/18 14:05 11/21/18 21:32 Lopressor IV 5 mg Q6HR PRN Administration Tachyarrhythmias Metoprolol Tartrate 25 mg 11/24/18 13:00 11/28/18 05:58 Lopressor PO 25 mg Q6HR [facility] Administration Multi-Ingred Cream/Lotion/Oil/Oint 1 applic 10/10/18 17:53 Artificial Tears Ophth Oint OU Q4HR PRN Dry Eye(s) Multivitamins 1 each 10/11/18 10:00 11/27/18 11:44 Theragran Tab PO 1 each DAILY [facility] Administration Ondansetron HCl 4 mg 11/12/18 15:05 Zofran IV Q8H PRN N/V unrelieved by Buddy Faye Hydrophilic Mucilloid 1 each 11/08/18 18:00 11/27/18 11:58 Metamucil PO 1 each QDAY [facility] Administration Ritonavir 100 mg 10/30/18 18:00 11/27/18 11:49 Norvir PO 100 mg QDAY [facility] Administration Sertraline HCl 50 mg 11/21/18 19:52 11/27/18 11:45 Zoloft PO 50 mg QDAY RU[facility] Administration Simple Syrup 15 ml 10/11/18 12:58 Simple Syrup FEEDTUBE PRN PRN Hypoglycemia Simple Syrup 30 ml 10/11/18 12:58 Simple Syrup FEEDTUBE PRN PRN Hypoglycemia Sodium Bicarbonate 325 mg 10/11/18 12:58 Sodium Bicarbonate FEEDTUBE PRN PRN For Clogged Feeding Tube Sodium Chloride 10 ml 10/10/18 22:00 11/27/18 21:35 Sodium Chloride Flush Syringe 10 Ml IV 10 ml BID RUBI Administration Sodium Chloride 10 ml 10/10/18 18:12 Sodium Chloride Flush Syringe 10 Ml IV PRN PRN LINE FLUSH Tenofovir Disoproxil Fumarate 300 mg 10/30/18 17:45 11/27/18 18:27 Viread PO 300 mg Q96H [facility] Administration
[2018-11-28] MEDS: TIVICAY PO SCH (11:20)
--- NOTE | 2018-11-28 12:08 | Progress Note ---
Assessment and Plan Assessment and plan: Acute encephalopathy multifactorial ?from hypertensive urgency +/- brain opportunistic infection. DDx: Neurosyphilis, VZV/CMV encephalitis versus RADAR OPERATOR lymphoma versus less likely PML v/s ischemic CVA (seems more likely) improving - CT head showed bilateral chronic ischemic changes. - Brain MRI showed areas of edema in the basal ganglia and thalami bilaterally, within the jamari and in the cerebral hemispheres bilaterally in the subcortical and deep white matter and in portions of the cortex, areas of encephalomalacia in the basal ganglia bilaterally with evidence of previous hemorrhage or mineral deposition and numerous small foci of acute infarct in the basal ganglia bilaterally, subinsular regions bilaterally and medial temporal lobes bilaterally and possibly in the occipital cortex bilaterally. - Brain MRA showed possible dissection versus artifact at the basilar artery. Luminal irregularity at the anterior, middle, and posterior cerebral arteries as well as the carotid siphons may represent mild to moderate atherosclerotic disease. More notable narrowing at the distal right A1 segment. Differential diagnosis includes motion artifact and vasculitis. Vertebral arteries are not clearly visualized. - CSF wbc 4, rbc 113, Seg 8%, Lymph 76%, protein 55, glucose 73 which is not c/w meningitis - RPR reactive 1:32 / FTA ABs reactive, treated with penicillin and ceftriaxone but CSF VDRL Non reactive. - Toxoplasma IgG negative, CSF Toxoplasma PCR: negative - Blood CMV DNA VL=1,370, 3.1 log on ganciclovir - likely reactivation - Repeat CMV DNA PCR 10/24/2018: <200. Off ganciclovir. - Glucan Assay: negative Consulted Neurology, he was evaluated by DR. Valentine. mentation is improved, and this is likely his new baseline Dysphagia/ moderate malnutrition -[facility] [place] 10/23, recommended pureed with nectar thickened liquids, continue this diet -wood flooring specialist consulted Anemia/thrombocytopenia, leukocytosis, coagulopathy; now resolved -Status post platelet (3 units) and prbc (6 units ) transfusion, the patient had only few schistocytes on smear, ADAMS13 91% activity plt count has recovered HIV/AIDS, CD4 count 3, HIV viral load 320,000 Sepsis acute bacterial PNA, CMV viremia toxo neg, CSF neg ,Whole blood cmv PCR was positive at 1374 abx and anti- antiviral per ID,continues to have fever on and off chest CT :Patchy airspace disease in the right lower lobe compatible with pneumonia. No evidence of pleural effusion. -repeat CXR : clear lungs and normal bony and soft tissue structures. Patchy airspace disease in the right lower lobe has resolved since 11/07/18 Continues on atovaquone as prophylaxis. Patient has sulfa allergy. Oral candidiasis, nystatin swish and spit ordered x 7 days SHRUTHI/ATN now ESRD Continue hemodialysis per nephrology. Hyperkalemia, resolved Severe protein calorie malnutrition -dietitican consult Acute hypoxic resp failure on MV> 96 hours self extubated 10/16, continue supplemental oxygen prn CTA neg for PE on 11/06 Acute on chronic systolic CHF He was treated with Cardene drip which was weaned off. Optimize medications for CHF on coreg, no mik due to high K, fluid removal by dialysis Stage 2 sacral wound decub, and bilat buttock wounds left buttocks area. The wound is measured at 9.0x2.5. 25% slough noticed to the wound sacral area. The wound is measured at 3.5x3.5.80% necrotic tissue noticed to the wound right buttocks area. The wound is measured at 5.0x3.0. no evidence of infection, but wounds are necrotic, cont wound care Depression MH input appreciated, he is improving Severe debility; he was previously refusing PT and not participating. He agrees to be more complaints of physical therapy. he is now participating with PT, contractures are improving DVT ppx- heparin sq Disposition: Needs HD and home health set up before he can be dc History Interval history: Patient is 43 YO Male with HIV, hypertension, previous stroke, Nicotine Depe ndence, presents to ED for evaluation. Patient was confused and lethargic and unable to provide history. He was seen and evaluated in ED and found to be in distress and unable to protect his airway and was therefore intubated, placed on ventilator and admitted to ICU. Patient diagnosed with acute resp failure, renal failure(acute vs acute on chronic) , Encephalopathy, Acidosis. He is followed by ID Physician for HIV/AIDS. His renal failure worsened therefore started on hemodialysis for SHRUTHI due to ATN, now ESRD. He has had a prolonged course, diagnosed with acute resp failure, sepsis , toxic metabolic encephalopathy. He is on HAART. he is now stable for discharge. Awaiting ed case manager to arrange dialysis outpatient and home health. Hospitalist Physical - Constitutional Vitals: Temp Pulse Resp BP Pulse Ox 98.3 F 110 H 24 138/90 100 11/28/18 05:18 11/28/18 11:17 11/28/18 05:18 11/28/18 11:17 11/28/18 05:18 General appearance: Present: no acute distress - EENT Eyes: Present: PERRL, EOM intact ENT: hearing intact, clear oral mucosa, dentition normal - Neck Neck: Present: supple, normal ROM - Respiratory Respiratory effort: normal Respiratory: bilateral: CTA - Cardiovascular Rhythm: regular Heart Sounds: Present: S1 & S2. Absent: gallop, rub - Extremities Extremities: no ischemia, No edema, Full ROM - Abdominal General gastrointestinal: soft, non-tender, non-distended, normal bowel sounds - Integumentary Integumentary: Present: clear, warm, dry - Neurologic Neurologic: CNII-XII intact, moves all extremities Results - Labs CBC & Chem 7: 11/28/18 06:46 11/28/18 06:46 Labs: Laboratory Last Values WBC 7.7 K/mm3 (4.5-11.0) 11/28/18 06:46 RBC 2.88 M/mm3 (3.65-5.03) L 11/28/18 06:46 Hgb 8.2 gm/dl (11.8-15.2) L 11/28/18 06:46 Hct 25.7 % (35.5-45.6) L 11/28/18 06:46 MCV 89 fl (84-94) 11/28/18 06:46 MCH 29 pg (28-32) 11/28/18 06:46 MCHC 32 % (32-34) 11/28/18 06:46 RDW 20.7 % (13.2-15.2) H 11/28/18 06:46 Plt Count 251 K/mm3 (140-440) 11/28/18 06:46 Lymph % (Auto) Machine Shop Specialist 11/24/18 00:09 [place] % (Auto) Machine Shop Specialist 11/24/18 00:09 Eos % (Auto) Machine Shop Specialist 11/24/18 00:09 Baso % (Auto) Machine Shop Specialist 11/24/18 00:09 Lymph # Machine Shop Specialist 11/24/18 00:09 [place] # Machine Shop Specialist 11/24/18 00:09 Eos # Machine Shop Specialist 11/24/18 00:09 Baso # Machine Shop Specialist 11/24/18 00:09 Add Manual Diff Complete 11/28/18 06:46 Total Counted 100 11/28/18 06:46 Seg Neutrophils % Machine Shop Specialist 11/24/18 00:09 Seg Neuts % (Manual) 84.0 % (40.0-70.0) H 11/28/18 06:46 Band Neutrophils % 2.0 % 11/28/18 06:46 Lymphocytes % (Manual) 5.0 % (13.4-35.0) L 11/28/18 06:46 Reactive Lymphs % (Man) 0 % 11/28/18 06:46 Monocytes % (Manual) 9.0 % (0.0-7.3) H 11/28/18 06:46 Eosinophils % (Manual) 0 % (0.0-4.3) 11/28/18 06:46 Basophils % (Manual) 0 % (0.0-1.8) 11/28/18 06:46 Metamyelocytes % 0 % 11/28/18 06:46 Myelocytes % 0 % 11/28/18 06:46 Promyelocytes % 0 % 11/28/18 06:46 Blast Cells % 0 % 11/28/18 06:46 Nucleated RBC % 2.0 % (0.0-0.9) H 11/28/18 06:46 Seg Neutrophils # Machine Shop Specialist 11/24/18 00:09 Seg Neutrophils # Man 6.5 K/mm3 (1.8-7.7) 11/28/18 06:46 Band Neutrophils # 0.2 K/mm3 11/28/18 06:46 Abs Lymphs (Manual) 267 cells/uL (850-3900) L 10/11/18 17:36 Lymphocytes # (Manual) 0.4 K/mm3 (1.2-5.4) L 11/28/18 06:46 Abs React Lymphs (Man) 0.0 K/mm3 11/28/18 06:46 Monocytes # (Manual) 0.7 K/mm3 (0.0-0.8) 11/28/18 06:46 Eosinophils # (Manual) 0.0 K/mm3 (0.0-0.4) 11/28/18 06:46 Basophils # (Manual) 0.0 K/mm3 (0.0-0.1) 11/28/18 06:46 Metamyelocytes # 0.0 K/mm3 11/28/18 06:46 Myelocytes # 0.0 K/mm3 11/28/18 06:46 Promyelocytes # 0.0 K/mm3 11/28/18 06:46 Blast Cells # 0.0 K/mm3 11/28/18 06:46 Pathologist Review 10/15/18 03:14 WBC Morphology Not Reportable 11/28/18 06:46 Hypersegmented Neuts Not Reportable 11/28/18 06:46 Hyposegmented Neuts Not Reportable 11/28/18 06:46 Hypogranular Neuts Not Reportable 11/28/18 06:46 Smudge Cells Not Reportable 11/28/18 06:46 Toxic Granulation Not Reportable 11/28/18 06:46 Toxic Vacuolation Not Reportable 11/28/18 06:46 Dohle Bodies Not Reportable 11/28/18 06:46 Pelger-Huet Anomaly Not Reportable 11/28/18 06:46 Kartik Rods Not Reportable 11/28/18 06:46 Platelet Estimate Consistent w auto 11/28/18 06:46 Clumped Platelets Not Reportable 11/28/18 06:46 Plt Clumps, EDTA Not Reportable 11/28/18 06:46 Large Platelets 1+ 11/28/18 06:46 Giant Platelets Not Reportable 11/28/18 06:46 Platelet Satelliting Not Reportable 11/28/18 06:46 Plt Morphology Comment Not Reportable 11/28/18 06:46 RBC Morphology Not Reportable 11/28/18 06:46 Dimorphic RBCs Not Reportable 11/28/18 06:46 Polychromasia Not Reportable 11/28/18 06:46 Hypochromasia Not Reportable 11/28/18 06:46 Poikilocytosis 2+ 11/28/18 06:46 Anisocytosis 1+ 11/28/18 06:46 Microcytosis Not Reportable 11/28/18 06:46 Macrocytosis 1+ 11/28/18 06:46 Spherocytes Not Reportable 11/28/18 06:46 Pappenheimer Bodies Not Reportable 11/28/18 06:46 Sickle Cells Not Reportable 11/28/18 06:46 Target Cells 2+ 11/28/18 06:46 Tear Drop Cells Not Reportable 11/28/18 06:46 Ovalocytes Not Reportable 11/28/18 06:46 Stomatocytes Few 11/10/18 06:54 Helmet Cells Not Reportable 11/28/18 06:46 [place] Bodies Not Reportable 11/28/18 06:46 [place] Rings Not Reportable 11/28/18 06:46 Jani Cells Not Reportable 11/28/18 06:46 Bite Cells Not Reportable 11/28/18 06:46 Crenated Cell Not Reportable 11/28/18 06:46 Elliptocytes Not Reportable 11/28/18 06:46 Acanthocytes (Spur) Not Reportable 11/28/18 06:46 Rouleaux Not Reportable 11/28/18 06:46 Hemoglobin C Crystals Not Reportable 11/28/18 06:46 Schistocytes Not Reportable 11/28/18 06:46 Malaria parasites Not Reportable 11/28/18 06:46 Jv Bodies Not Reportable 11/28/18 06:46 Hem Pathologist Commnt No 11/28/18 06:46 PT 17.7 Sec. (12.2-14.9) H 11/06/18 13:18 INR 1.36 (0.87-1.13) H 11/06/18 13:18 APTT 30.6 Sec. (24.2-36.6) 11/06/18 13:18 Thrombin Time 16.9 Sec. (15.1-19.6) 10/10/18 15:02 Heparin Anti-Xa Level < 0.10 U.I./ml (0.3-0.7) L 11/07/18 21:31 Heparin Anti-Xa, Unfract Negative (Negative) 10/25/18 05:59 POC ABG pH 7.455 (7.35-7.45) H 11/23/18 13:46 POC ABG pCO2 32.0 (35-45) L 10/21/18 09:49 POC ABG pO2 111 (80-105) H 11/23/18 13:46 POC ABG HCO3 17.3 (22-26 mml/L) 11/23/18 13:46 POC ABG Total CO2 18 (23-27mmol/L) 11/23/18 13:46 POC ABG O2 Sat 99 11/23/18 13:46 POC ABG Base Excess -7 ((-2) - (+3)mmol/L) 11/23/18 13:46 FiO2 21 % 11/23/18 13:46 Sodium 136 mmol/L (137-145) L 11/28/18 06:46 Potassium 3.5 mmol/L (3.6-5.0) L 11/28/18 06:46 Chloride 93.9 mmol/L (98-107) L 11/28/18 06:46 Carbon Dioxide 26 mmol/L (22-30) 11/28/18 06:46 Anion Gap 20 mmol/L 11/28/18 06:46 BUN 31 mg/dL (9-20) H 11/28/18 06:46 Creatinine 5.8 mg/dL (0.8-1.5) H D 11/28/18 06:46 Estimated GFR 13 ml/min 11/28/18 06:46 BUN/Creatinine Ratio 5 % 11/28/18 06:46 Glucose 111 mg/dL (75-100) H 11/28/18 06:46 POC Glucose 110 (70-105) H 11/23/18 13:35 Osmolality 338 Mosm/kg 10/11/18 17:35 Lactic Acid 1.80 mmol/L (0.7-2.0) 10/12/18 05:59 Uric Acid 13.4 mg/dL (3.5-7.6) H 10/11/18 17:36 Calcium 8.6 mg/dL (8.4-10.2) 11/28/18 06:46 Phosphorus 6.50 mg/dL (2.5-4.5) H 11/24/18 10:53 Magnesium 3.10 mg/dL (1.7-2.3) H 10/18/18 05:03 Iron 147 ug/dL (49-181) 10/11/18 17:36 TIBC 236 mcg/dL (250-450) L 10/11/18 17:36 Ferritin 88016.0 ng/mL (13.0-400.0) H 10/11/18 17:35 Total Bilirubin 0.30 mg/dL (0.1-1.2) 11/19/18 05:31 Direct Bilirubin 0.2 mg/dL (0-0.2) 10/16/18 04:07 Indirect Bilirubin 0.3 mg/dL 10/16/18 04:07 AST 26 units/L (5-40) 11/19/18 05:31 ALT 11 units/L (7-56) 11/19/18 05:31 Alkaline Phosphatase 74 units/L (35-129) 11/19/18 05:31 Ammonia 25.0 umol/L (25-60) 10/17/18 14:59 Lactate Dehydrogenase 925 units/L (91-180) H 10/22/18 05:51 Troponin T 0.357 ng/mL (0.00-0.029) H* 11/06/18 05:54 NT-Pro-B Natriuret Pep 64670 pg/mL (0-450) H 10/10/18 15:42 Total Protein 7.6 g/dL (6.3-8.2) 11/19/18 05:31 Albumin 2.6 g/dL (3.9-5) L 11/19/18 05:31 Albumin/Globulin Ratio 0.5 % 11/19/18 05:31 Triglycerides 306 mg/dL (2-149) H 11/05/18 11:29 Cholesterol 145 mg/dL (50-199) 11/05/18 11:29 LDL Cholesterol Direct 89 mg/dL (50-130) 11/05/18 11:29 HDL Cholesterol 25 mg/dL (40-59) L 11/05/18 11:29 Cholesterol/HDL Ratio 5.80 % 11/05/18 11:29 Serotonin Release Assay See scanned result 10/25/18 05:59 Vitamin B12 912.3 pg/mL (211-911) H 10/14/18 08:51 Folate 8.32 ng/mL (7.3-26.0) 10/14/18 08:51 PTH Intact 118.0 pg/mL (15-65) H 11/24/18 10:53 Urine Creatinine 30.8 mg/dL (0.1-20.0) H 10/13/18 04:43 Urine Sodium 106 mmol/L 10/13/18 04:43 Urine Total Protein 75 mg/dL (5-11.8) H 10/13/18 04:43 CSF Appearance Clear 10/16/18 15:00 CSF Color Colorless 10/16/18 15:00 CSF WBC 4 /mm3 (1-10) 10/16/18 15:00 CSF RBC 113 /mm3 (0-0) 10/16/18 15:00 CSF Seg Neutrophils 8.0 % (0-6) 10/16/18 15:00 CSF Lymphocytes % 76.0 % (40-80) 10/16/18 15:00 CSF Reactive Lymphs 2.0 % 10/16/18 15:00 CSF Monocytes % 14.0 % (15-45) 10/16/18 15:00 CSF Eosinophils % 0 % 10/16/18 15:00 CSF Basophils 0 % 10/16/18 15:00 CSF Pathologist Review C 10/16/18 15:00 CSF Glucose 73 mg/dL 10/16/18 15:00 CSF Total Protein 55 mg/dL 10/16/18 15:00 CSF VDRL Nonreactive (Nonreactive) 10/16/18 15:00 Random Vancomycin 21.1 ug/mL (0-40.0) 11/20/18 06:15 Immunofix Electrophor see below 10/11/18 17:36 RENO Screen Negative (Negative) 10/21/18 15:07 Proteinase 3 (PR3) Ab <1.0 AI (<1.0) 10/21/18 15:07 Myeloperoxidase Ab <1.0 AI (<1.0) 10/21/18 15:07 Heparin-induced Plt Ab Negative (Negative) 10/25/18 05:59 UF Heparin High Dose 0 % Release 10/25/18 05:59 VJ UFH Low Dose 0.1 0 % Release 10/25/18 05:59 VJ UFH Low Dose 0.5 14 % Release 10/25/18 05:59 Lymph Enumerat CD4/CD8 0.01 (0.86-5.00) L 10/11/18 17:36 % CD3 Cells 85 % (57-85) 10/11/18 17:36 Absolute CD3 Count 226 cells/uL (840-3060) L 10/11/18 17:36 % CD4 Cells 1 % (30-61) L 10/11/18 17:36 Absolute CD4 Count 3 cells/uL (490-1740) L 10/11/18 17:36 % CD8 Cells 82 % (12-42) H 10/11/18 17:36 Absolute CD8 Count 228 cells/uL (180-1170) 10/11/18 17:36 % CD19 Cells 6 % (6-29) 10/11/18 17:36 Absolute CD19 Count 16 cells/uL (110-660) L 10/11/18 17:36 RPR Titer 1:32 10/11/18 17:37 RPR Reactive (Nonreactive) 10/11/18 17:37 T.pallidum Ab (FTA-ABS) Reactive (Nonreactive) H 10/12/18 Unknown CMV DNA PCR log epic kaleidoscope analyst/mL See scanned result 10/24/18 17:47 Hepatitis A IgM Ab Non-reactive (NonReactive) 11/21/18 09:58 Hep Bs Antigen Non-reactive (Negative) 11/21/18 09:58 Hep B Core IgM Ab Non-reactive (NonReactive) 11/21/18 09:58 Hepatitis C Antibody Non-reactive (NonReactive) 11/21/18 09:58 HIV-1 RNA PCR copies/ml [id number] Copies/mL H 10/11/18 17:36 HIV-1 RNA (PCR) log 5.51 Log cps/mL H 10/11/18 17:36 HIV-1 Genotyping See scanned results 10/29/18 19:48 Toxoplasma IgG Ab <7.20 IU/mL (<7.20) 10/13/18 07:54 Miscellaneous Test Flexitest 1 10/31/18 06:43 Blood Type A POSITIVE 11/08/18 11:28 Antibody Screen Negative 11/08/18 11:28 Crossmatch See Detail 11/08/18 11:28 Active Medications - Current Medications Current Medications: Generic Name Dose Route Start Last Admin Trade Name Freq PRN Reason Stop Dose Admin Acetaminophen 500 mg 10/16/18 10:02 11/26/18 20:30 Tylenol PO 500 mg Q6H PRN Administration Fever >101 Albumin Human 25 gm 11/04/18 16:14 Alburx 25% (Albumin) IV CHON PRN Hypotension Albuterol 2.5 mg 11/21/18 07:24 Proventil IH Q4HRT PRN Shortness Of Breath Lipase/Protease/Amylase 1 each 10/11/18 12:58 Pancrebecka Reed 10,500 Unit FEEDTUBE PRN PRN For Clogged Feeding Tube Atovaquone 1,500 mg 11/14/18 10:00 11/28/18 11:15 Mepron PO 1,500 mg QDAY RUBI Administration Darunavir 800 mg 10/30/18 18:00 11/28/18 11:16 Prezista PO 800 mg QDAY RUBI Administration Emtricitabine 200 mg 11/01/18 10:00 11/27/18 11:49 Emtriva PO 200 mg Q48HR RUBI Administration Epoetin Dany 20,000 unit 11/12/18 15:00 11/26/18 18:15 Procrit IV 20,000 unit .MWF RUBI Administration Heparin Sodium (Porcine) 5,000 unit 11/04/18 16:15 Heparin IV CHON PRN hemodialysis Heparin Sodium (Porcine) 5,000 unit 11/07/18 22:00 11/28/18 05:58 Heparin SUB-Q 5,000 unit Q8HR RUBI Administration Hydrophilic Ointment 1 applic 10/10/18 17:53 Vaseline Lip Therapy TP Q2HR PRN Dry Lips Sodium Chloride 100 mls @ 999 mls/hr 11/12/18 09:51 Nacl 0.9% IV CHON PRN Hypotension Ipratropium [place] 0.5 mg 11/20/18 22:07 Atrovent IH Q4HRT PRN Shortness Of Breath Lansoprazole 30 mg 10/15/18 10:00 11/28/18 11:15 Prevacid Solutab FEEDTUBE 30 mg BID RUBI Administration Metoprolol Tartrate 5 mg 10/18/18 14:05 11/21/18 21:32 Lopressor IV 5 mg Q6HR PRN Administration Tachyarrhythmias Metoprolol Tartrate 25 mg 11/24/18 13:00 11/28/18 11:17 Lopressor PO 25 mg Q6HR RUBI Administration Multi-Ingred Cream/Lotion/Oil/Oint 1 applic 10/10/18 17:53 Artificial Tears Ophth Oint OU Q4HR PRN Dry Eye(s) Multivitamins 1 each 10/11/18 10:00 11/28/18 11:16 Theragran Tab PO 1 each DAILY RUBI Administration Ondansetron HCl 4 mg 11/12/18 15:05 Zofran IV Q8H PRN N/V unrelieved by Buddy Faye Hydrophilic Mucilloid 1 each 11/08/18 18:00 11/28/18 11:17 Metamucil PO 1 each QDAY RUBI Administration Ritonavir 100 mg 10/30/18 18:00 11/28/18 11:16 Norvir PO 100 mg QDAY RUBI Administration Sertraline HCl 50 mg 11/21/18 19:52 11/28/18 11:18 Zoloft PO 50 mg QDAY RUBI Administration Simple Syrup 15 ml 10/11/18 12:58 Simple Syrup FEEDTUBE PRN PRN Hypoglycemia Simple Syrup 30 ml 10/11/18 12:58 Simple Syrup FEEDTUBE PRN PRN Hypoglycemia Sodium Bicarbonate 325 mg 10/11/18 12:58 Sodium Bicarbonate FEEDTUBE PRN PRN For Clogged Feeding Tube Sodium Chloride 10 ml 10/10/18 22:00 11/28/18 11:16 Sodium Chloride Flush Syringe 10 Ml IV 10 ml BID RUBI Administration Sodium Chloride 10 ml 10/10/18 18:12 Sodium Chloride Flush Syringe 10 Ml IV PRN PRN LINE FLUSH Tenofovir Disoproxil Fumarate 300 mg 10/30/18 17:45 11/27/18 18:27 Viread PO 300 mg Q96H RUBI Administration Nutrition/Malnutrition Assess - Dietary Evaluation Nutrition/Malnutrition Findings: Nutrition Notes Start: 10/11/18 11:14 Freq: Status: Active Protocol: Document 11/26/18 14:28 RM (Rec: 11/26/18 14:34 [email or web address]) Nutrition Notes Initial or Follow up Reassessment Current Diagnosis Acute Kidney Injury,CKD(stage I-IV),Hypertension,Heart Failure,Stroke Other Pertinent Diagnosis Depression,Dysphagia,on HD, Acute encephalopathy,HIV/AIDS, Syphilis Current Diet Pureed Labs/Tests Reviewed Pertinent Medications Reviewed Height 5 ft 9 in Weight 51 kg [place] Body Weight (kg) 72.72 BMI 16.6 Subjective/Other Information Pt confused at time of visit. Pt tech stated that pt eats 25 % of his meals. Unsure of whether pt has had any Nepro. Percent of energy/protein needs met: 43%/66% Burn Absent Trauma Absent #2 Nutrition Diagnosis Malnutrition Diagnosis Progress(for reassessment Continues documentation) #1 Nutrition Diagnosis Inadequate oral intake Diagnosis Progress(for reassessment Continues documentation) Is patient on ventilator? No Is Patient Ambulatory and/or Out of Bed No REE-([facility]-confined to bed) 1683.876 Kcal/Kg value to use for calculation 40 Approximate Energy Requirements Using 2040 kcal/Kg Calculation Used for Recommendations Kcal/kg Additional Notes Pro needs 1.2-1.5g/k-72g/ day Fluid needs 1ml/kcal Nutrition Intervention Change Diet Order: Pureed diet Add Supplement/Snack (indicate name/kcal Nepro 1 daily /protein ) Provides kCal: 425 Provides Protein (gm) 19 Goal #1 Meet at least 75% of calorie and protein needs via PO and ONS intakes Anticipated Discharge Needs: Pureed, Renal diet Follow-Up By: 12/05/18 Additional Comments Follow for PO and ONS intakes
--- NOTE | 2018-11-28 14:26 | Progress Note ---
Assessment and Plan - Patient Problems (1) Unstageable pressure ulcer of sacral region Current Visit: Yes Status: Acute Plan to address problem: 1) Will debride sacral pressure ulcer at pt's bedside tomorrow. 2) Continue off loading 3) High protein diet 4) Continue local wound care Subjective Date of service: 11/28/18 Patient Reports: Positive: other (Receiving HD.) Objective Vital Signs - 12hr 11/28/18 11/28/18 11/28/18 05:18 11:17 11:27 Temperature 98.3 F 98.0 F Pulse Rate 110 H 110 H 110 H Respiratory 24 18 Rate Blood Pressure 138/99 138/90 134/94 O2 Sat by Pulse 100 100 Oximetry - Integumentary other (Sacral wound was not re-examined.) - Labs 11/28/18 06:46 11/28/18 06:46 Diabetes panel 11/28/18 Range/Units 06:46 Sodium 136 L (137-145) mmol/L Potassium 3.5 L (3.6-5.0) mmol/L Chloride 93.9 L (98-107) mmol/L Carbon Dioxide 26 (22-30) mmol/L BUN 31 H (9-20) mg/dL Creatinine 5.8 H D (0.8-1.5) mg/dL Glucose 111 H (75-100) mg/dL Calcium 8.6 (8.4-10.2) mg/dL Calcium panel 11/28/18 Range/Units 06:46 Calcium 8.6 (8.4-10.2) mg/dL Pituitary panel 11/28/18 Range/Units 06:46 Sodium 136 L (137-145) mmol/L Potassium 3.5 L (3.6-5.0) mmol/L Chloride 93.9 L (98-107) mmol/L Carbon Dioxide 26 (22-30) mmol/L BUN 31 H (9-20) mg/dL Creatinine 5.8 H D (0.8-1.5) mg/dL Glucose 111 H (75-100) mg/dL Calcium 8.6 (8.4-10.2) mg/dL Adrenal panel 11/28/18 Range/Units 06:46 Sodium 136 L (137-145) mmol/L Potassium 3.5 L (3.6-5.0) mmol/L Chloride 93.9 L (98-107) mmol/L Carbon Dioxide 26 (22-30) mmol/L BUN 31 H (9-20) mg/dL Creatinine 5.8 H D (0.8-1.5) mg/dL Glucose 111 H (75-100) mg/dL Calcium 8.6 (8.4-10.2) mg/dL
[2018-11-28] MEDS: PROCRIT IV SCH (15:52)
[2018-11-28] MEDS: HEPARIN IV PRN (18:22)
[2018-11-29] MEDS: LOPRESSOR PO SCH ×5 (01:56→23:28)
[2018-11-29 05:41] LABS: Hematocrit 24.6 % (35.5-45.6); Hemoglobin 7.7 gm/dl (11.8-15.2); Mean Corpuscular HGB Conc 31 % (32-34); Mean Corpuscular Volume 91 fl (84-94); Platelet Count 223 K/mm3 (140-440)
[2018-11-29 05:45] LABS: Red Cell Distribution Width 21.3 % (13.2-15.2)
[2018-11-29 06:46] LABS: Calcium 8.7 mg/dL (8.4-10.2)
[2018-11-29] MEDS: HEPARIN SUB-Q SCH ×3 (06:48→21:32)
[2018-11-29 07:28] LABS: Total Cells Counted 100
[2018-11-29 07:30] LABS: Anisocytosis 1+; Macrocytosis 1+; Ovalocytes Few; Poikilocytosis 1+
[2018-11-29 07:31] LABS: Large Platelets 1+; Platelet Estimate Consistent w Auto
--- NOTE | 2018-11-29 09:36 | Progress Note ---
Assessment and Plan Assessment: * ESRD --Permcath insertion 11/23 * HIV/AIDS * Acute encephalopathy * Acute hypoxic respiratory failure s/p mechanical ventilation * Hx of urinary retention * Anemia * Hyperkalemia - resolved Plan: * Continue HD qMWF schedule * UF as tolerated * ID following * Surgery recommendations noted * Epogen TIW prn * Continue antiHTN medications * Note PT recommendation for SHANDRA * Outpatient HD clinic placement in progress * PT notes reviewed; patient is not ambulatory, "max assistance, max fall risk" . Subjective Date of service: 11/29/18 Principal diagnosis: anemia - HIV Objective - Vital Signs Vital signs: Vital Signs - 12hr 11/28/18 11/29/18 11/29/18 23:31 01:56 05:30 Temperature 97.9 F 98.2 F Pulse Rate 119 H 109 H Respiratory 24 24 Rate Blood Pressure 147/101 140/103 138/99 O2 Sat by Pulse 100 Oximetry 11/29/18 06:48 Temperature Pulse Rate 109 H Respiratory Rate Blood Pressure 138/99 O2 Sat by Pulse Oximetry - Lab 11/29/18 05:15 11/29/18 05:15 Most recent lab results Calcium 8.7 mg/dL (8.4-10.2) 11/29/18 05:15 Phosphorus 6.50 mg/dL (2.5-4.5) H 11/24/18 10:53 Magnesium 3.10 mg/dL (1.7-2.3) H 10/18/18 05:03 Urine Creatinine 30.8 mg/dL (0.1-20.0) H 10/13/18 04:43 Urine Sodium 106 mmol/L 10/13/18 04:43 Urine Total Protein 75 mg/dL (5-11.8) H 10/13/18 04:43 Medications & Allergies - Medications Allergies/Adverse Reactions: Allergies Sulfa (Sulfonamide Antibiotics) Allergy (Verified 10/10/18 16:54) Unknown Home Medications: Home Medications Medication Instructions Recorded Confirmed Last Taken Type Acetaminophen [Tylenol] 1,000 mg PO Q6HR 10/10/18 10/10/18 Unknown History Amlodipine Besylate [Norvasc] 10 mg PO QDAY 10/10/18 10/10/18 Unknown History Aspirin [Adult Aspirin] 81 mg PO DAILY 10/10/18 10/10/18 Unknown History Atorvastatin [Lipitor Tab] 80 mg PO DAILY 10/10/18 10/10/18 Unknown History Losartan [Cozaar] 100 mg PO QDAY 10/10/18 10/10/18 Unknown History Multivitamin [Multiple Vitamins] 1 each PO DAILY 10/10/18 10/10/18 Unknown History hydroCHLOROthiazide [HCTZ] 25 mg PO QDAY 10/10/18 10/10/18 Unknown History Active Medications: Generic Name Dose Route Start Last Admin Trade Name Freq PRN Reason Stop Dose Admin Acetaminophen 500 mg 10/16/18 10:02 11/26/18 20:30 Tylenol PO 500 mg Q6H PRN Administration Fever >101 Albumin Human 25 gm 11/04/18 16:14 Alburx 25% (Albumin) IV CHON PRN Hypotension Albuterol 2.5 mg 11/21/18 07:24 Proventil IH Q4HRT PRN Shortness Of Breath Lipase/Protease/Amylase 1 each 10/11/18 12:[address] 10,500 Unit FEEDTUBE PRN PRN For Clogged Feeding Tube Atovaquone 1,500 mg 11/14/18 10:00 11/28/18 11:15 Mepron PO 1,500 mg QDAY RUBI Administration Darunavir 800 mg 10/30/18 18:00 11/28/18 11:16 Prezista PO 800 mg QDAY RUBI Administration Emtricitabine 200 mg 11/01/18 10:00 11/27/18 11:49 Emtriva PO 200 mg Q48HR RUBI Administration Epoetin Dany 20,000 unit 11/12/18 15:00 11/28/18 15:52 Procrit IV 20,000 unit .MWF RUBI Administration Heparin Sodium (Porcine) 5,000 unit 11/04/18 16:15 11/28/18 18:22 Heparin IV 5,000 unit CHON PRN Administration hemodialysis Heparin Sodium (Porcine) 5,000 unit 11/07/18 22:00 11/29/18 06:48 Heparin SUB-Q 5,000 unit Q8HR RUBI Administration Hydrophilic Ointment 1 applic 10/10/18 17:53 Vaseline Lip Therapy TP Q2HR PRN Dry Lips Sodium Chloride 100 mls @ 999 mls/hr 11/12/18 09:51 Nacl 0.9% IV CHON PRN Hypotension Ipratropium [place] 0.5 mg 11/20/18 22:07 Atrovent IH Q4HRT PRN Shortness Of Breath Lansoprazole 30 mg 10/15/18 10:00 11/28/18 21:53 Prevacid Solutab FEEDTUBE 30 mg BID RUBI Administration Metoprolol Tartrate 5 mg 10/18/18 14:05 11/21/18 21:32 Lopressor IV 5 mg Q6HR PRN Administration Tachyarrhythmias Metoprolol Tartrate 25 mg 11/24/18 13:00 11/29/18 06:48 Lopressor PO 25 mg Q6HR RUBI Administration Multi-Ingred Cream/Lotion/Oil/Oint 1 applic 10/10/18 17:53 Artificial Tears Ophth Oint OU Q4HR PRN Dry Eye(s) Multivitamins 1 each 10/11/18 10:00 11/28/18 11:16 Theragran Tab PO 1 each DAILY RUBI Administration Ondansetron HCl 4 mg 11/12/18 15:05 Zofran IV Q8H PRN N/V unrelieved by Buddy Faye Hydrophilic Mucilloid 1 each 11/08/18 18:00 11/28/18 11:17 Metamucil PO 1 each QDAY RUBI Administration Ritonavir 100 mg 10/30/18 18:00 11/28/18 11:16 Norvir PO 100 mg QDAY RUBI Administration Sertraline HCl 50 mg 11/21/18 19:52 11/28/18 11:18 Zoloft PO 50 mg QDAY RUBI Administration Simple Syrup 15 ml 10/11/18 12:58 Simple Syrup FEEDTUBE PRN PRN Hypoglycemia Simple Syrup 30 ml 10/11/18 12:58 Simple Syrup FEEDTUBE PRN PRN Hypoglycemia Sodium Bicarbonate 325 mg 10/11/18 12:58 Sodium Bicarbonate FEEDTUBE PRN PRN For Clogged Feeding Tube Sodium Chloride 10 ml 10/10/18 22:00 11/28/18 21:54 Sodium Chloride Flush Syringe 10 Ml IV 10 ml BID RUBI Administration Sodium Chloride 10 ml 10/10/18 18:12 Sodium Chloride Flush Syringe 10 Ml IV PRN PRN LINE FLUSH Tenofovir Disoproxil Fumarate 300 mg 10/30/18 17:45 11/27/18 18:27 Viread PO 300 mg Q96H RUBI Administration
[2018-11-29] MEDS: ZOLOFT PO SCH (10:02)
[2018-11-29] MEDS: EMTRIVA PO SCH (10:02)
[2018-11-29] MEDS: NORVIR PO SCH (10:03)
[2018-11-29] MEDS: PREVACID SOLUTAB FEEDTUBE SCH ×2 (10:03→21:33)
[2018-11-29] MEDS: PREZISTA PO SCH (10:03)
[2018-11-29] MEDS: MEPRON PO SCH (10:04)
[2018-11-29] MEDS: SODIUM CHLORIDE FLUSH SYRINGE 10 ML IV SCH ×2 (10:05→21:33)
[2018-11-29] MEDS: METAMUCIL PO SCH (10:05)
[2018-11-29] MEDS: THERAGRAN Tab PO SCH (10:05)
[2018-11-29] MEDS: TIVICAY PO SCH (10:10)
--- NOTE | 2018-11-29 10:31 | Progress Note ---
Assessment and Plan Cultures: Blood culture 10/10/2018 no growth. Sputum culture 10/10/2018 Ana Paula albicans. Crypto Ag 10/10/2018 neg. Urine culture 10/13/2018 no growth. Blood culture 10/17/2018 no growth. Blood culture 10/20/2018: no growth Stool Occult Blood 10/23/18: positive Blood culture 10/29/18: negative Urine culture 10/31/18: Ana Paula Blood culture 11/05/18: No growth Blood culture 11/14/18: no growth Assessment: 43 y/o male with history of HIV (unknown CD4/VL/ART intake), HTN, CVA 6 months ago at [place], Nicotine Dependence, Malnutrition; admitted on 10/10/2018 due to AMS (confusion/lethargy) and slurred speech for 24 h: 1) SIRS versus sepsis: Etiology unknown. Could be related to decubiti, seems to be responding to abx - CXR neg - BNP 70K - Troponin 0.2 - LDH 2242 -chest CT :Patchy airspace disease in the right lower lobe compatible with pneumonia. No evidence of pleural effusion. -repeat CXR : clear lungs and normal bony and soft tissue structures. Patchy airspace disease in the right lower lobe has resolved since 11/07/18 2) Acute hypoxemic respiratory failure: for airway protection +/- ? pneumonia. Repeat CXR no consolidations. Ana Paula in tracha sp likely a colonizer. Extubated 10/15. Continues on atovaquone as prophylaxis. Patient has sulfa allergy. 3) Acute encephalopathy: Improved.; multifactorial ?from hypertensive urgency +/- brain opportunistic infection. DDx: Neurosyphilis, VZV/CMV encephalitis versus [employer] lymphoma versus less likely PML v/s ischemic CVA (seems more likely) - CT head showed bilateral chronic ischemic changes. - Brain MRI showed areas of edema in the basal ganglia and thalami bilaterally, within the jamari and in the cerebral hemispheres bilaterally in the subcortical and deep white matter and in portions of the cortex, areas of enceph alomalacia in the basal ganglia bilaterally with evidence of previous hemorrhage or mineral deposition and numerous small foci of acute infarct in the basal ganglia bilaterally, subinsular regions bilaterally and medial temporal lobes bilaterally and possibly in the occipital cortex bilaterally. - Brain MRA showed possible dissection versus artifact at the basilar artery. Luminal irregularity at the anterior, middle, and posterior cerebral arteries as well as the carotid siphons may represent mild to moderate atherosclerotic disease. More notable narrowing at the distal right A1 segment. Differential diagnosis includes motion artifact and vasculitis. Vertebral arteries are not clearly visualized. - CSF wbc 4, rbc 113, Seg 8%, Lymph 76%, protein 55, glucose 73 which is not c/w meningitis - RPR reactive 1:32 / FTA ABs reactive, treated with penicillin and ceftriaxone but CSF VDRL Non reactive. - Toxoplasma IgG negative, CSF Toxoplasma PCR: negative - Blood CMV DNA VL=1,370, 3.1 log on ganciclovir - likely reactivation - Repeat CMV DNA PCR 10/24/2018: <200. Off ganciclovir. - Glucan Assay: negative 4) Anemia/thrombocytopenia: improving. 5) Acute on CKD or SHRUTHI ? unclear etiology: on HD. RIJ permacath placement today. 6) DM: uncontrolled. 7) HIV/AIDS: VL 320,000 / CD4=3 on 10/11/2018. 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 Started HIV treatment on 10/30/2018. Continue HIV therapy,renally adjusted TDF, FTC along with dolutegravir and ritonavir boosted darunavir. 8) Decubitus Ulcers: Left buttocks wound measures 9.0 x 2.5, Sacral wound measures 3.5 x 3.5, 80 % necrotic tissue, Right buttocks wound measures 5.0 x 3.[address] Go to perform bedside debridement of sacral pressure ulcer 11/29/18. Recommendations: continue atovaquone 750 mg BID continue HIV therapy: renally adjusted TDF, FTC along with dolutegravir and ritonavir boosted darunavir Monitor off antibiotics continue wound care f/u CD4 and HIV RNA [facility] M: [phone] O:[phone] Subjective Date of service: 11/29/18 Principal diagnosis: anemia - HIV Interval history: Patient seen and examined. Reports generalized weakness, no pain. No fevers. Objective - Exam Narrative Exam: General appearance: Awake, Alert, No acute distress Eyes: anicteric sclerae, moist conjunctivae; no lid-lag; PERRLA HENT: Atraumatic; oropharynx limited Neck: Trachea midline; supple, no thyromegaly or lymphadenopathy Lungs: CTA, with normal respiratory effort CV: tachycardic Abdomen: Soft, non-tender;+SP cath Extremities: No peripheral edema , + contractures bilateral lower extremities Skin: Normal temperature, turgor and texture; no rash, ulcers or subcutaneous nodules Psych: affect: Flat Neuro: Improved, following simple commands - Constitutional Vitals: Vital Signs Temp Pulse Resp BP Pulse Ox 98.2 F 109 H 24 138/99 100 11/29/18 05:30 11/29/18 06:48 11/29/18 05:30 11/29/18 06:48 11/29/18 05:30 Temperature -Last 24 Hours Temperature 98.2 F Temperature 97.9 F Temperature 98.2 F Temperature 98.8 F Temperature 98.0 F - Labs CBC & Chem 7: 11/29/18 05:15 11/29/18 05:15 Labs: Abnormal lab results 11/29/18 11/29/18 Range/Units 05:15 05:15 RBC 2.70 L (3.65-5.03) M/mm3 Hgb 7.7 L (11.8-15.2) gm/dl Hct 24.6 L (35.5-45.6) % MCHC 31 L (32-34) % RDW 21.3 H (13.2-15.2) % Seg Neuts % (Manual) 87.0 H (40.0-70.0) % Lymphocytes % (Manual) 3.0 L (13.4-35.0) % Basophils % (Manual) 2.0 H (0.0-1.8) % Nucleated RBC % 1.0 H (0.0-0.9) % Lymphocytes # (Manual) 0.2 L (1.2-5.4) K/mm3 Potassium 3.3 L (3.6-5.0) mmol/L Chloride 93.7 L (98-107) mmol/L Creatinine 3.4 H (0.8-1.5) mg/dL Glucose 115 H (75-100) mg/dL
--- NOTE | 2018-11-29 11:59 | Procedure Note ---
Date of procedure: 11/29/18 Pre-op diagnosis: Unstageable sacral pressure ulcer Post-op diagnosis: other (Stage 3 sacral pressure ulcer) Procedure: Debridement of sacral pressure ulcer Description of procedure: Pt was placed in a left lateral position. An excisional/surgical debridement of necrotic skin, SQ tissue and muscle was performed with forceps and scissors. No anesthesia was necessary. Bleeding was minimal and was controlled with pressure. Final wound measurements were: 6 X 4.5 X 1.5 cm. Pt tolerated the procedure well. Wound was dressed with dry 4 X 4's, an ABD and tape. Anesthesia: none Surgeon: SHERRELL VEGAS Estimated blood loss: minimal Pathology: none Specimen disposition: discarded Condition: stable Disposition: no change
--- NOTE | 2018-11-29 12:00 | Progress Note ---
Assessment and Plan Assessment and plan: Acute encephalopathy multifactorial ?from hypertensive urgency +/- brain opportunistic infection. DDx: Neurosyphilis, VZV/CMV encephalitis versus [employer] lymphoma versus less likely PML v/s ischemic CVA (seems more likely) improving - CT head showed bilateral chronic ischemic changes. - Brain MRI showed areas of edema in the basal ganglia and thalami bilaterally, within the jamari and in the cerebral hemispheres bilaterally in the subcortical and deep white matter and in portions of the cortex, areas of encephalomalacia in the basal ganglia bilaterally with evidence of previous hemorrhage or mineral deposition and numerous small foci of acute infarct in the basal ganglia bilaterally, subinsular regions bilaterally and medial temporal lobes bilaterally and possibly in the occipital cortex bilaterally. - Brain MRA showed possible dissection versus artifact at the basilar artery. Luminal irregularity at the anterior, middle, and posterior cerebral arteries as well as the carotid siphons may represent mild to moderate atherosclerotic disease. More notable narrowing at the distal right A1 segment. Differential diagnosis includes motion artifact and vasculitis. Vertebral arteries are not clearly visualized. - CSF wbc 4, rbc 113, Seg 8%, Lymph 76%, protein 55, glucose 73 which is not c/w meningitis - RPR reactive 1:32 / FTA ABs reactive, treated with penicillin and ceftriaxone but CSF VDRL Non reactive. - Toxoplasma IgG negative, CSF Toxoplasma PCR: negative - Blood CMV DNA VL=1,370, 3.1 log on ganciclovir - likely reactivation - Repeat CMV DNA PCR 10/24/2018: <200. Off ganciclovir. - Glucan Assay: negative Consulted Neurology, he was evaluated by DR. Valentine. mentation is improved, and this is likely his new baseline Dysphagia/ moderate [place] [place] recommended pureed with nectar thickened liquids, continue this diet -middle school assistant principal consulted Anemia/thrombocytopenia, leukocytosis, coagulopathy; now resolved -Status post platelet (3 units) and prbc (6 units ) transfusion, the patient had only few schistocytes on smear, ADAMS13 91% activity plt count has recovered HIV/AIDS, CD4 count 3, HIV viral load 320,000 Sepsis acute bacterial PNA, CMV viremia toxo neg, CSF neg ,Whole blood cmv PCR was positive at 1374 abx and anti- antiviral per ID,continues to have fever on and off chest CT :Patchy airspace disease in the right lower lobe compatible with pneumonia. No evidence of pleural effusion. -repeat CXR : clear lungs and normal bony and soft tissue structures. Patchy airspace disease in the right lower lobe has resolved since 11/07/18 Continues on atovaquone as prophylaxis. Patient has sulfa allergy. Oral candidiasis, nystatin swish and spit ordered x 7 days SHRUTHI/ATN now ESRD Continue hemodialysis per nephrology. Hyperkalemia, resolved Severe protein calorie malnutrition -dietitican consult Acute hypoxic resp failure on MV> 96 hours self extubated 10/16, continue supplemental oxygen prn CTA neg for PE on 11/06 Acute on chronic systolic CHF He was treated with Cardene drip which was weaned off. Optimize medications for CHF on coreg, no mik due to high K, fluid removal by dialysis Stage 2 sacral wound decub, and bilat buttock wounds left buttocks area. The wound is measured at 9.0x2.5. 25% slough noticed to the wound sacral area. The wound is measured at 3.5x3.5.80% necrotic tissue noticed to the wound right buttocks area. The wound is measured at 5.0x3.0. no evidence of infection, but wounds are necrotic, cont wound care Depression MH input appreciated, he is improving Severe debility; he was previously refusing PT and not participating. He agrees to be more complaints of physical therapy. he is now participating with PT, contractures are improving DVT ppx- heparin sq Disposition: Awaiting outpatient HD and home health set up before he can be dc History Interval history: Patient is 43 YO Male with HIV, hypertension, previous stroke, Nicotine Dependence, presents to ED for evaluation. Patient was confused and lethargic and unable to provide history. He was seen and evaluated in ED and found to be in distress and unable to protect his airway and was therefore intubated, placed on ventilator and admitted to ICU. Patient diagnosed with acute resp failure, renal failure(acute vs acute on chronic) , Encephalopathy, Acidosis. He is followed by ID Physician for HIV/AIDS. His renal failure worsened therefore started on hemodialysis for SHRUTHI due to ATN, now ESRD. He has had a prolonged course, diagnosed with acute resp failure, sepsis , toxic metabolic encephalopathy. He is on HAART. he is now stable for discharge. Awaiting shoe parts caser to arrange dialysis outpatient and home health. Hospitalist Physical - Constitutional Vitals: Temp Pulse Resp BP Pulse Ox 98.2 F 109 H 24 138/99 100 11/29/18 05:30 11/29/18 06:48 11/29/18 05:30 11/29/18 06:48 11/29/18 05:30 General appearance: Present: no acute distress - EENT Eyes: Present: PERRL, EOM intact ENT: hearing intact, clear oral mucosa, dentition normal - Neck Neck: Present: supple, normal ROM - Respiratory Respiratory effort: normal Respiratory: bilateral: CTA - Cardiovascular Rhythm: regular Heart Sounds: Present: S1 & S2. Absent: gallop, rub - Extremities Extremities: no ischemia, No edema, Full ROM - Abdominal General gastrointestinal: soft, non-tender, non-distended, normal bowel sounds - Integumentary Integumentary: Present: clear, warm, dry - Neurologic Neurologic: CNII-XII intact, moves all extremities Results - Labs CBC & Chem 7: 11/29/18 05:15 11/29/18 05:15 Labs: Laboratory Last Values WBC 7.0 K/mm3 (4.5-11.0) 11/29/18 05:15 RBC 2.70 M/mm3 (3.65-5.03) L 11/29/18 05:15 Hgb 7.7 gm/dl (11.8-15.2) L 11/29/18 05:15 Hct 24.6 % (35.5-45.6) L 11/29/18 05:15 MCV 91 fl (84-94) 11/29/18 05:15 MCH 29 pg (28-32) 11/29/18 05:15 MCHC 31 % (32-34) L 11/29/18 05:15 RDW 21.3 % (13.2-15.2) H 11/29/18 05:15 Plt Count 223 K/mm3 (140-440) 11/29/18 05:15 Lymph % (Auto) Mobile Nurse 11/24/18 00:09 [place] % (Auto) Mobile Nurse 11/24/18 00:09 Eos % (Auto) Mobile Nurse 11/24/18 00:09 Baso % (Auto) Mobile Nurse 11/24/18 00:09 Lymph # Mobile Nurse 11/24/18 00:09 [place] # Mobile Nurse 11/24/18 00:09 Eos # Mobile Nurse 11/24/18 00:09 Baso # Mobile Nurse 11/24/18 00:09 Add Manual Diff Complete 11/29/18 05:15 Total Counted 100 11/29/18 05:15 Seg Neutrophils % Mobile Nurse 11/24/18 00:09 Seg Neuts % (Manual) 87.0 % (40.0-70.0) H 11/29/18 05:15 Band Neutrophils % 0 % 11/29/18 05:15 Lymphocytes % (Manual) 3.0 % (13.4-35.0) L 11/29/18 05:15 Reactive Lymphs % (Man) 2.0 % 11/29/18 05:15 Monocytes % (Manual) 4.0 % (0.0-7.3) 11/29/18 05:15 Eosinophils % (Manual) 1.0 % (0.0-4.3) 11/29/18 05:15 Basophils % (Manual) 2.0 % (0.0-1.8) H 11/29/18 05:15 Metamyelocytes % 1.0 % 11/29/18 05:15 Myelocytes % 0 % 11/29/18 05:15 Promyelocytes % 0 % 11/29/18 05:15 Blast Cells % 0 % 11/29/18 05:15 Nucleated RBC % 1.0 % (0.0-0.9) H 11/29/18 05:15 Seg Neutrophils # Mobile Nurse 11/24/18 00:09 Seg Neutrophils # Man 6.1 K/mm3 (1.8-7.7) 11/29/18 05:15 Band Neutrophils # 0.0 K/mm3 11/29/18 05:15 Abs Lymphs (Manual) 267 cells/uL (850-3900) L 10/11/18 17:36 Lymphocytes # (Manual) 0.2 K/mm3 (1.2-5.4) L 11/29/18 05:15 Abs React Lymphs (Man) 0.1 K/mm3 11/29/18 05:15 Monocytes # (Manual) 0.3 K/mm3 (0.0-0.8) 11/29/18 05:15 Eosinophils # (Manual) 0.1 K/mm3 (0.0-0.4) 11/29/18 05:15 Basophils # (Manual) 0.1 K/mm3 (0.0-0.1) 11/29/18 05:15 Metamyelocytes # 0.1 K/mm3 11/29/18 05:15 Myelocytes # 0.0 K/mm3 11/29/18 05:15 Promyelocytes # 0.0 K/mm3 11/29/18 05:15 Blast Cells # 0.0 K/mm3 11/29/18 05:15 Pathologist Review 10/15/18 03:14 WBC Morphology Not Reportable 11/29/18 05:15 Hypersegmented Neuts Not Reportable 11/29/18 05:15 Hyposegmented Neuts Not Reportable 11/29/18 05:15 Hypogranular Neuts Not Reportable 11/29/18 05:15 Smudge Cells Not Reportable 11/29/18 05:15 Toxic Granulation Not Reportable 11/29/18 05:15 Toxic Vacuolation Not Reportable 11/29/18 05:15 Dohle Bodies Not Reportable 11/29/18 05:15 Pelger-Huet Anomaly Not Reportable 11/29/18 05:15 Kartik Rods Not Reportable 11/29/18 05:15 Platelet Estimate Consistent w auto 11/29/18 05:15 Clumped Platelets Not Reportable 11/29/18 05:15 Plt Clumps, EDTA Not Reportable 11/29/18 05:15 Large Platelets 1+ 11/29/18 05:15 Giant Platelets Not Reportable 11/29/18 05:15 Platelet Satelliting Not Reportable 11/29/18 05:15 Plt Morphology Comment Not Reportable 11/29/18 05:15 RBC Morphology Not Reportable 11/29/18 05:15 Dimorphic RBCs Not Reportable 11/29/18 05:15 Polychromasia Not Reportable 11/29/18 05:15 Hypochromasia Not Reportable 11/29/18 05:15 Poikilocytosis 1+ 11/29/18 05:15 Anisocytosis 1+ 11/29/18 05:15 Microcytosis Not Reportable 11/29/18 05:15 Macrocytosis 1+ 11/29/18 05:15 Spherocytes Not Reportable 11/29/18 05:15 Pappenheimer Bodies Not Reportable 11/29/18 05:15 Sickle Cells Not Reportable 11/29/18 05:15 Target Cells Not Reportable 11/29/18 05:15 Tear Drop Cells Not Reportable 11/29/18 05:15 Ovalocytes Few 11/29/18 05:15 Stomatocytes Few 11/10/18 06:54 Helmet Cells Not Reportable 11/29/18 05:15 [place] Bodies Not Reportable 11/29/18 05:15 [place] Rings Not Reportable 11/29/18 05:15 [place] Cells Not Reportable 11/29/18 05:15 Bite Cells Not Reportable 11/29/18 05:15 Crenated Cell Not Reportable 11/29/18 05:15 Elliptocytes 1+ 11/29/18 05:15 Acanthocytes (Spur) Not Reportable 11/29/18 05:15 Rouleaux Not Reportable 11/29/18 05:15 Hemoglobin C Crystals Not Reportable 11/29/18 05:15 Schistocytes Not Reportable 11/29/18 05:15 Malaria parasites Not Reportable 11/29/18 05:15 Jv Bodies Not Reportable 11/29/18 05:15 Hem Pathologist Commnt No 11/29/18 05:15 PT 17.7 Sec. (12.2-14.9) H 11/06/18 13:18 INR 1.36 (0.87-1.13) H 11/06/18 13:18 APTT 30.6 Sec. (24.2-36.6) 11/06/18 13:18 Thrombin Time 16.9 Sec. (15.1-19.6) 10/10/18 15:02 Heparin Anti-Xa Level < 0.10 U.I./ml (0.3-0.7) L 11/07/18 21:31 Heparin Anti-Xa, Unfract Negative (Negative) 10/25/18 05:59 POC ABG pH 7.455 (7.35-7.45) H 11/23/18 13:46 POC ABG pCO2 32.0 (35-45) L 10/21/18 09:49 POC ABG pO2 111 (80-105) H 11/23/18 13:46 POC ABG HCO3 17.3 (22-26 mml/L) 11/23/18 13:46 POC ABG Total CO2 18 (23-27mmol/L) 11/23/18 13:46 POC ABG O2 Sat 99 11/23/18 13:46 POC ABG Base Excess -7 ((-2) - (+3)mmol/L) 11/23/18 13:46 FiO2 21 % 11/23/18 13:46 Sodium 137 mmol/L (137-145) 11/29/18 05:15 Potassium 3.3 mmol/L (3.6-5.0) L 11/29/18 05:15 Chloride 93.7 mmol/L (98-107) L 11/29/18 05:15 Carbon Dioxide 27 mmol/L (22-30) 11/29/18 05:15 Anion Gap 20 mmol/L 11/29/18 05:15 BUN 14 mg/dL (9-20) 11/29/18 05:15 Creatinine 3.4 mg/dL (0.8-1.5) H 11/29/18 05:15 Estimated GFR 24 ml/min 11/29/18 05:15 BUN/Creatinine Ratio 4 % 11/29/18 05:15 Glucose 115 mg/dL (75-100) H 11/29/18 05:15 POC Glucose 110 (70-105) H 11/23/18 13:35 Osmolality 338 Mosm/kg 10/11/18 17:35 Lactic Acid 1.80 mmol/L (0.7-2.0) 10/12/18 05:59 Uric Acid 13.4 mg/dL (3.5-7.6) H 10/11/18 17:36 Calcium 8.7 mg/dL (8.4-10.2) 11/29/18 05:15 Phosphorus 6.50 mg/dL (2.5-4.5) H 11/24/18 10:53 Magnesium 3.10 mg/dL (1.7-2.3) H 10/18/18 05:03 Iron 147 ug/dL (49-181) 10/11/18 17:36 TIBC 236 mcg/dL (250-450) L 10/11/18 17:36 Ferritin 77087.0 ng/mL (13.0-400.0) H 10/11/18 17:35 Total Bilirubin 0.30 mg/dL (0.1-1.2) 11/19/18 05:31 Direct Bilirubin 0.2 mg/dL (0-0.2) 10/16/18 04:07 Indirect Bilirubin 0.3 mg/dL 10/16/18 04:07 AST 26 units/L (5-40) 11/19/18 05:31 ALT 11 units/L (7-56) 11/19/18 05:31 Alkaline Phosphatase 74 units/L (35-129) 11/19/18 05:31 Ammonia 25.0 umol/L (25-60) 10/17/18 14:59 Lactate Dehydrogenase 925 units/L (91-180) H 10/22/18 05:51 Troponin T 0.357 ng/mL (0.00-0.029) H* 11/06/18 05:54 NT-Pro-B Natriuret Pep 53590 pg/mL (0-450) H 10/10/18 15:42 Total Protein 7.6 g/dL (6.3-8.2) 11/19/18 05:31 Albumin 2.6 g/dL (3.9-5) L 11/19/18 05:31 Albumin/Globulin Ratio 0.5 % 11/19/18 05:31 Triglycerides 306 mg/dL (2-149) H 11/05/18 11:29 Cholesterol 145 mg/dL (50-199) 11/05/18 11:29 LDL Cholesterol Direct 89 mg/dL (50-130) 11/05/18 11:29 HDL Cholesterol 25 mg/dL (40-59) L 11/05/18 11:29 Cholesterol/HDL Ratio 5.80 % 11/05/18 11:29 Serotonin Release Assay See scanned result 10/25/18 05:59 Vitamin B12 912.3 pg/mL (211-911) H 10/14/18 08:51 Folate 8.32 ng/mL (7.3-26.0) 10/14/18 08:51 PTH Intact 118.0 pg/mL (15-65) H 11/24/18 10:53 Urine Creatinine 30.8 mg/dL (0.1-20.0) H 10/13/18 04:43 Urine Sodium 106 mmol/L 10/13/18 04:43 Urine Total Protein 75 mg/dL (5-11.8) H 10/13/18 04:43 CSF Appearance Clear 10/16/18 15:00 CSF Color Colorless 10/16/18 15:00 CSF WBC 4 /mm3 (1-10) 10/16/18 15:00 CSF RBC 113 /mm3 (0-0) 10/16/18 15:00 CSF Seg Neutrophils 8.0 % (0-6) 10/16/18 15:00 CSF Lymphocytes % 76.0 % (40-80) 10/16/18 15:00 CSF Reactive Lymphs 2.0 % 10/16/18 15:00 CSF Monocytes % 14.0 % (15-45) 10/16/18 15:00 CSF Eosinophils % 0 % 10/16/18 15:00 CSF Basophils 0 % 10/16/18 15:00 CSF Pathologist Review C 10/16/18 15:00 CSF Glucose 73 mg/dL 10/16/18 15:00 CSF Total Protein 55 mg/dL 10/16/18 15:00 CSF VDRL Nonreactive (Nonreactive) 10/16/18 15:00 Random Vancomycin 21.1 ug/mL (0-40.0) 11/20/18 06:15 Immunofix Electrophor see below 10/11/18 17:36 RENO Screen Negative (Negative) 10/21/18 15:07 Proteinase 3 (PR3) Ab <1.0 AI (<1.0) 10/21/18 15:07 Myeloperoxidase Ab <1.0 AI (<1.0) 10/21/18 15:07 Heparin-induced Plt Ab Negative (Negative) 10/25/18 05:59 UF Heparin High Dose 0 % Release 10/25/18 05:59 VJ UFH Low Dose 0.1 0 % Release 10/25/18 05:59 VJ UFH Low Dose 0.5 14 % Release 10/25/18 05:59 Lymph Enumerat CD4/CD8 0.01 (0.86-5.00) L 10/11/18 17:36 % CD3 Cells 85 % (57-85) 10/11/18 17:36 Absolute CD3 Count 226 cells/uL (840-3060) L 10/11/18 17:36 % CD4 Cells 1 % (30-61) L 10/11/18 17:36 Absolute CD4 Count 3 cells/uL (490-1740) L 10/11/18 17:36 % CD8 Cells 82 % (12-42) H 10/11/18 17:36 Absolute CD8 Count 228 cells/uL (180-1170) 10/11/18 17:36 % CD19 Cells 6 % (6-29) 10/11/18 17:36 Absolute CD19 Count 16 cells/uL (110-660) L 10/11/18 17:36 RPR Titer 1:32 10/11/18 17:37 RPR Reactive (Nonreactive) 10/11/18 17:37 T.pallidum Ab (FTA-ABS) Reactive (Nonreactive) H 10/12/18 Unknown CMV DNA PCR log coppersmith helper/mL See scanned result 10/24/18 17:47 Hepatitis A IgM Ab Non-reactive (NonReactive) 11/21/18 09:58 Hep Bs Antigen Non-reactive (Negative) 11/21/18 09:58 Hep B Core IgM Ab Non-reactive (NonReactive) 11/21/18 09:58 Hepatitis C Antibody Non-reactive (NonReactive) 11/21/18 09:58 HIV-1 RNA PCR copies/ml [id number] Copies/mL H 10/11/18 17:36 HIV-1 RNA (PCR) log 5.51 Log cps/mL H 10/11/18 17:36 HIV-1 Genotyping See scanned results 10/29/18 19:48 Toxoplasma IgG Ab <7.20 IU/mL (<7.20) 10/13/18 07:54 Miscellaneous Test Flexitest 1 10/31/18 06:43 Blood Type A POSITIVE 11/08/18 11:28 Antibody Screen Negative 11/08/18 11:28 Crossmatch See Detail 11/08/18 11:28 Active Medications - Current Medications Current Medications: Generic Name Dose Route Start Last Admin Trade Name Freq PRN Reason Stop Dose Admin Acetaminophen 500 mg 10/16/18 10:02 11/26/18 20:30 Tylenol PO 500 mg Q6H PRN Administration Fever >101 Albumin Human 25 gm 11/04/18 16:14 Alburx 25% (Albumin) IV CHON PRN Hypotension Albuterol 2.5 mg 11/21/18 07:24 Proventil IH Q4HRT PRN Shortness Of Breath Lipase/Protease/Amylase 1 each 10/11/18 12:58 Pancrebecka Reed 10,500 Unit FEEDTUBE PRN PRN For Clogged Feeding Tube Atovaquone 1,500 mg 11/14/18 10:00 11/29/18 10:04 Mepron PO 1,500 mg QDAY RUBI Administration Darunavir 800 mg 10/30/18 18:00 11/29/18 10:03 Prezista PO 800 mg QDAY RUBI Administration Emtricitabine 200 mg 11/01/18 10:00 11/29/18 10:02 Emtriva PO 200 mg Q48HR RUBI Administration Epoetin Dany 20,000 unit 11/12/18 15:00 11/28/18 15:52 Procrit IV 20,000 unit .MWF RUBI Administration Heparin Sodium (Porcine) 5,000 unit 11/04/18 16:15 11/28/18 18:22 Heparin IV 5,000 unit CHON PRN Administration hemodialysis Heparin Sodium (Porcine) 5,000 unit 11/07/18 22:00 11/29/18 06:48 Heparin SUB-Q 5,000 unit Q8HR RUBI Administration Hydrophilic Ointment 1 applic 10/10/18 17:53 Vaseline Lip Therapy TP Q2HR PRN Dry Lips Sodium Chloride 100 mls @ 999 mls/hr 11/12/18 09:51 Nacl 0.9% IV CHON PRN Hypotension Ipratropium [place] 0.5 mg 11/20/18 22:07 Atrovent IH Q4HRT PRN Shortness Of Breath Lansoprazole 30 mg 10/15/18 10:00 11/29/18 10:03 Prevacid Solutab FEEDTUBE 30 mg BID RUBI Administration Metoprolol Tartrate 5 mg 10/18/18 14:05 11/21/18 21:32 Lopressor IV 5 mg Q6HR PRN Administration Tachyarrhythmias Metoprolol Tartrate 25 mg 11/24/18 13:00 11/29/18 06:48 Lopressor PO 25 mg Q6HR RUBI Administration Multi-Ingred Cream/Lotion/Oil/Oint 1 applic 10/10/18 17:53 Artificial Tears Ophth Oint OU Q4HR PRN Dry Eye(s) Multivitamins 1 each 10/11/18 10:00 11/29/18 10:05 Theragran Tab PO 1 each DAILY RUBI Administration Ondansetron HCl 4 mg 11/12/18 15:05 Zofran IV Q8H PRN N/V unrelieved by Buddy Faye Hydrophilic Mucilloid 1 each 11/08/18 18:00 11/29/18 10:05 Metamucil PO 1 each QDAY RUBI Administration Ritonavir 100 mg 10/30/18 18:00 11/29/18 10:03 Norvir PO 100 mg QDAY RUBI Administration Sertraline HCl 50 mg 11/21/18 19:52 11/29/18 10:02 Zoloft PO 50 mg QDAY RUBI Administration Simple Syrup 15 ml 10/11/18 12:58 Simple Syrup FEEDTUBE PRN PRN Hypoglycemia Simple Syrup 30 ml 10/11/18 12:58 Simple Syrup FEEDTUBE PRN PRN Hypoglycemia Sodium Bicarbonate 325 mg 10/11/18 12:58 Sodium Bicarbonate FEEDTUBE PRN PRN For Clogged Feeding Tube Sodium Chloride 10 ml 10/10/18 22:00 11/29/18 10:05 Sodium Chloride Flush Syringe 10 Ml IV 10 ml BID RUBI Administration Sodium Chloride 10 ml 10/10/18 18:12 Sodium Chloride Flush Syringe 10 Ml IV PRN PRN LINE FLUSH Tenofovir Disoproxil Fumarate 300 mg 10/30/18 17:45 11/27/18 18:27 Viread PO 300 mg Q96H RUBI Administration Nutrition/Malnutrition Assess - Dietary Evaluation Nutrition/Malnutrition Findings: Nutrition Notes Start: 10/11/18 11:14 Freq: Status: Active Protocol: Document 11/26/18 14:28 RM (Rec: 11/26/18 14:34 RM [id number]) Nutrition Notes Initial or Follow up Reassessment Current Diagnosis Acute Kidney Injury,CKD(stage I-IV),Hypertension,Heart Failure,Stroke Other Pertinent Diagnosis Depression,Dysphagia,on HD, Acute encephalopathy,HIV/AIDS, Syphilis Current Diet Pureed Labs/Tests Reviewed Pertinent Medications Reviewed Height 5 ft 9 in Weight 51 kg [place] Body Weight (kg) 72.72 BMI 16.6 Subjective/Other Information Pt confused at time of visit. Pt tech stated that pt eats 25 % of his meals. Unsure of whether pt has had any Nepro. Percent of energy/protein needs met: 43%/66% Burn Absent Trauma Absent #2 Nutrition Diagnosis Malnutrition Diagnosis Progress(for reassessment Continues documentation) #1 Nutrition Diagnosis Inadequate oral intake Diagnosis Progress(for reassessment Continues documentation) Is patient on ventilator? No Is Patient Ambulatory and/or Out of Bed No REE-([facility]-confined to bed) 1683.876 Kcal/Kg value to use for calculation 40 Approximate Energy Requirements Using 2040 kcal/Kg Calculation Used for Recommendations Kcal/kg Additional Notes Pro needs 1.2-1.5g/k-72g/ day Fluid needs 1ml/kcal Nutrition Intervention Change Diet Order: Pureed diet Add Supplement/Snack (indicate name/kcal Nepro 1 daily /protein ) Provides kCal: 425 Provides Protein (gm) 19 Goal #1 Meet at least 75% of calorie and protein needs via PO and ONS intakes Anticipated Discharge Needs: Pureed, Renal diet Follow-Up By: 12/05/18 Additional Comments Follow for PO and ONS intakes
--- NOTE | 2018-11-29 12:04 | Event Note ---
Date: 11/29/18 Pt was debrided in his room today. [facility]. I will see him while he is in house on a weekly basis.
[2018-11-30] MEDS: LOPRESSOR PO SCH ×3 (05:48→18:00)
[2018-11-30] MEDS: HEPARIN SUB-Q SCH ×3 (05:48→22:06)
--- NOTE | 2018-11-30 09:37 | Progress Note ---
Assessment and Plan Cultures: Blood culture 10/10/2018 no growth. Sputum culture 10/10/2018 Ana Paula albicans. Crypto Ag 10/10/2018 neg. Urine culture 10/13/2018 no growth. Blood culture 10/17/2018 no growth. Blood culture 10/20/2018: no growth Stool Occult Blood 10/23/18: positive Blood culture 10/29/18: negative Urine culture 10/31/18: Ana Paula Blood culture 11/05/18: No growth Blood culture 11/14/18: no growth Assessment: 43 y/o male with history of HIV (unknown CD4/VL/ART intake), HTN, CVA 6 months ago at [place], Nicotine Dependence, Malnutrition; admitted on 10/10/2018 due to AMS (confusion/lethargy) and slurred speech for 24 h: 1) SIRS versus sepsis: Etiology unknown. Could be related to decubiti, seems to be responding to abx - CXR neg - BNP 70K - Troponin 0.2 - LDH 2242 -chest CT :Patchy airspace disease in the right lower lobe compatible with pneumonia. No evidence of pleural effusion. -repeat CXR : clear lungs and normal bony and soft tissue structures. Patchy airspace disease in the right lower lobe has resolved since 11/07/18 2) Acute hypoxemic respiratory failure: for airway protection +/- ? pneumonia. Repeat CXR no consolidations. Ana Paula in tracha sp likely a colonizer. Extubated 10/15. Continues on atovaquone as prophylaxis. Patient has sulfa allergy. 3) Acute encephalopathy: Improved.; multifactorial ?from hypertensive urgency +/- brain opportunistic infection. DDx: Neurosyphilis, VZV/CMV encephalitis versus [employer] lymphoma versus less likely PML v/s ischemic CVA (seems more likely) - CT head showed bilateral chronic ischemic changes. - Brain MRI showed areas of edema in the basal ganglia and thalami bilaterally, within the jamari and in the cerebral hemispheres bilaterally in the subcortical and deep white matter and in portions of the cortex, areas of enceph alomalacia in the basal ganglia bilaterally with evidence of previous hemorrhage or mineral deposition and numerous small foci of acute infarct in the basal ganglia bilaterally, subinsular regions bilaterally and medial temporal lobes bilaterally and possibly in the occipital cortex bilaterally. - Brain MRA showed possible dissection versus artifact at the basilar artery. Luminal irregularity at the anterior, middle, and posterior cerebral arteries as well as the carotid siphons may represent mild to moderate atherosclerotic disease. More notable narrowing at the distal right A1 segment. Differential diagnosis includes motion artifact and vasculitis. Vertebral arteries are not clearly visualized. - CSF wbc 4, rbc 113, Seg 8%, Lymph 76%, protein 55, glucose 73 which is not c/w meningitis - RPR reactive 1:32 / FTA ABs reactive, treated with penicillin and ceftriaxone but CSF VDRL Non reactive. - Toxoplasma IgG negative, CSF Toxoplasma PCR: negative - Blood CMV DNA VL=1,370, 3.1 log on ganciclovir - likely reactivation - Repeat CMV DNA PCR 10/24/2018: <200. Off ganciclovir. - Glucan Assay: negative 4) Anemia/thrombocytopenia: improving. 5) Acute on CKD or SHRUTHI ? unclear etiology: on HD. RIJ permacath placement today. 6) DM: uncontrolled. 7) HIV/AIDS: VL 320,000 / CD4=3 on 10/11/2018. 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 Started HIV treatment on 10/30/2018. Continue HIV therapy,renally adjusted TDF, FTC along with dolutegravir and ritonavir boosted darunavir. 8) Decubitus Ulcers: Left buttocks wound measures 9.0 x 2.5, Sacral wound measures 3.5 x 3.5, 80 % necrotic tissue, Right buttocks wound measures 5.0 x 3.[address] Go to perform bedside debridement of sacral pressure ulcer 11/29/18. Recommendations: continue atovaquone 750 mg BID continue HIV therapy: renally adjusted TDF, FTC along with dolutegravir and ritonavir boosted darunavir Monitor off antibiotics continue wound care f/u CD4 and HIV RNA Dr. Arreguin is home restoration service cleaner this weekend [phone], please call for questions. [facility] M: [phone] O:[phone] Subjective Date of service: 11/30/18 Principal diagnosis: anemia - HIV Interval history: Patient seen and examined. Awake, alert. Denies generalized pain or SOB. No fevers. Objective - Exam Narrative Exam: General appearance: Awake, Alert, No acute distress Eyes: anicteric sclerae, moist conjunctivae; no lid-lag; PERRLA HENT: Atraumatic; oropharynx limited Neck: Trachea midline; supple, no thyromegaly or lymphadenopathy Lungs: CTA, with normal respiratory effort CV: tachycardic Abdomen: Soft, non-tender;+SP cath Extremities: No peripheral edema , + contractures bilateral lower extremities Skin: Normal temperature, turgor and texture; no rash, ulcers or subcutaneous nodules Psych: affect: Flat Neuro: Improved, following simple commands - Constitutional Vitals: Vital Signs Temp Pulse Resp BP Pulse Ox 97.5 F L 108 H 18 137/95 100 11/30/18 05:42 11/30/18 05:42 11/30/18 05:42 11/30/18 05:42 11/30/18 05:42 Temperature -Last 24 Hours Temperature 97.5 F Temperature 97.8 F Temperature 99.5 F Temperature 98.6 F - Labs CBC & Chem 7: 11/29/18 05:15 11/29/18 05:15
--- NOTE | 2018-11-30 10:23 | Progress Note ---
Assessment and Plan Assessment: * ESRD --Permcath insertion 11/23 * HIV/AIDS * Acute encephalopathy * Acute hypoxic respiratory failure s/p mechanical ventilation * Hx of urinary retention * Anemia * Hyperkalemia - resolved * Decubitus ulcer s/p debridement Plan: * Continue HD qMWF schedule * UF as tolerated * ID following * Surgery recommendations noted * Epogen TIW prn * Continue antiHTN medications * Note PT recommendation for SHANDRA * Outpatient HD clinic placement in progress * PT notes reviewed; patient is not ambulatory, "max assistance, max fall risk" . Subjective Date of service: 11/30/18 Principal diagnosis: anemia - HIV Interval history: Patient has no complaint today Objective - Vital Signs Vital signs: Vital Signs - 12hr 11/29/18 11/30/18 22:36 05:42 Temperature 97.8 F 97.5 F L Pulse Rate 111 H 108 H Respiratory 16 18 Rate Blood Pressure 121/79 137/95 O2 Sat by Pulse 100 100 Oximetry - General Appearance General appearance: cachectic, frail EENT: ATNC Respiratory: Present: Clear to Ascultation Cardiology: regular, S1S2 Gastrointestinal: normal Musculoskeletal: other (no edema) Psychiatric: cooperative - Lab 11/29/18 05:15 11/29/18 05:15 Most recent lab results Calcium 8.7 mg/dL (8.4-10.2) 11/29/18 05:15 Phosphorus 6.50 mg/dL (2.5-4.5) H 11/24/18 10:53 Magnesium 3.10 mg/dL (1.7-2.3) H 10/18/18 05:03 Urine Creatinine 30.8 mg/dL (0.1-20.0) H 10/13/18 04:43 Urine Sodium 106 mmol/L 10/13/18 04:43 Urine Total Protein 75 mg/dL (5-11.8) H 10/13/18 04:43 Medications & Allergies - Medications Allergies/Adverse Reactions: Allergies Sulfa (Sulfonamide Antibiotics) Allergy (Verified 10/10/18 16:54) Unknown Home Medications: Home Medications Medication Instructions Recorded Confirmed Last Taken Type Acetaminophen [Tylenol] 1,000 mg PO Q6HR 10/10/18 10/10/18 Unknown History Amlodipine Besylate [Norvasc] 10 mg PO QDAY 10/10/18 10/10/18 Unknown History Aspirin [Adult Aspirin] 81 mg PO DAILY 10/10/18 10/10/18 Unknown History Atorvastatin [Lipitor Tab] 80 mg PO DAILY 10/10/18 10/10/18 Unknown History Losartan [Cozaar] 100 mg PO QDAY 10/10/18 10/10/18 Unknown History Multivitamin [Multiple Vitamins] 1 each PO DAILY 10/10/18 10/10/18 Unknown History hydroCHLOROthiazide [HCTZ] 25 mg PO QDAY 10/10/18 10/10/18 Unknown History Active Medications: Generic Name Dose Route Start Last Admin Trade Name Freq PRN Reason Stop Dose Admin Acetaminophen 500 mg 10/16/18 10:02 11/26/18 20:30 Tylenol PO 500 mg Q6H PRN Administration Fever >101 Albumin Human 25 gm 11/04/18 16:14 Alburx 25% (Albumin) IV CHON PRN Hypotension Albuterol 2.5 mg 11/21/18 07:24 Proventil IH Q4HRT PRN Shortness Of Breath Lipase/Protease/Amylase 1 each 10/11/18 12:[address] 10,500 Unit FEEDTUBE PRN PRN For Clogged Feeding Tube Atovaquone 1,500 mg 11/14/18 10:00 11/29/18 10:04 Mepron PO 1,500 mg QDAY RUBI Administration Darunavir 800 mg 10/30/18 18:00 11/29/18 10:03 Prezista PO 800 mg QDAY RUBI Administration Emtricitabine 200 mg 11/01/18 10:00 11/29/18 10:02 Emtriva PO 200 mg Q48HR RUBI Administration Epoetin Dany 20,000 unit 11/12/18 15:00 11/28/18 15:52 Procrit IV 20,000 unit .MWF RUBI Administration Heparin Sodium (Porcine) 5,000 unit 11/04/18 16:15 11/28/18 18:22 Heparin IV 5,000 unit CHON PRN Administration hemodialysis Heparin Sodium (Porcine) 5,000 unit 11/07/18 22:00 11/30/18 05:48 Heparin SUB-Q 5,000 unit Q8HR RUBI Administration Hydrophilic Ointment 1 applic 10/10/18 17:53 Vaseline Lip Therapy TP Q2HR PRN Dry Lips Sodium Chloride 100 mls @ 999 mls/hr 11/12/18 09:51 Nacl 0.9% IV CHON PRN Hypotension Ipratropium Hammond 0.5 mg 11/20/18 22:07 Atrovent IH Q4HRT PRN Shortness Of Breath Lansoprazole 30 mg 10/15/18 10:00 11/29/18 21:33 Prevacid Solutab FEEDTUBE 30 mg BID RUBI Administration Metoprolol Tartrate 5 mg 10/18/18 14:05 11/21/18 21:32 Lopressor IV 5 mg Q6HR PRN Administration Tachyarrhythmias Metoprolol Tartrate 25 mg 11/24/18 13:00 11/30/18 05:48 Lopressor PO 25 mg Q6HR RUBI Administration Multi-Ingred Cream/Lotion/Oil/Oint 1 applic 10/10/18 17:53 Artificial Tears Ophth Oint OU Q4HR PRN Dry Eye(s) Multivitamins 1 each 10/11/18 10:00 11/29/18 10:05 Theragran Tab PO 1 each DAILY RUBI Administration Ondansetron HCl 4 mg 11/12/18 15:05 Zofran IV Q8H PRN N/V unrelieved by Buddy Faye Hydrophilic Mucilloid 1 each 11/08/18 18:00 11/29/18 10:05 Metamucil PO 1 each QDAY RUBI Administration Ritonavir 100 mg 10/30/18 18:00 11/29/18 10:03 Norvir PO 100 mg QDAY RUBI Administration Sertraline HCl 50 mg 11/21/18 19:52 11/29/18 10:02 Zoloft PO 50 mg QDAY RUBI Administration Simple Syrup 15 ml 10/11/18 12:58 Simple Syrup FEEDTUBE PRN PRN Hypoglycemia Simple Syrup 30 ml 10/11/18 12:58 Simple Syrup FEEDTUBE PRN PRN Hypoglycemia Sodium Bicarbonate 325 mg 10/11/18 12:58 Sodium Bicarbonate FEEDTUBE PRN PRN For Clogged Feeding Tube Sodium Chloride 10 ml 10/10/18 22:00 11/29/18 21:33 Sodium Chloride Flush Syringe 10 Ml IV 10 ml BID RUBI Administration Sodium Chloride 10 ml 10/10/18 18:12 Sodium Chloride Flush Syringe 10 Ml IV PRN PRN LINE FLUSH Tenofovir Disoproxil Fumarate 300 mg 10/30/18 17:45 11/27/18 18:27 Viread PO 300 mg Q96H RUBI Administration
[2018-11-30] MEDS: MEPRON PO SCH (11:22)
[2018-11-30] MEDS: NORVIR PO SCH (11:23)
[2018-11-30] MEDS: THERAGRAN Tab PO SCH (11:23)
[2018-11-30] MEDS: PREVACID SOLUTAB FEEDTUBE SCH ×2 (11:23→22:06)
[2018-11-30] MEDS: PREZISTA PO SCH (11:24)
[2018-11-30] MEDS: ZOLOFT PO SCH (11:24)
[2018-11-30] MEDS: TIVICAY PO SCH (11:25)
[2018-11-30] MEDS: SODIUM CHLORIDE FLUSH SYRINGE 10 ML IV SCH ×2 (11:25→22:07)
[2018-11-30] MEDS: METAMUCIL PO SCH (11:26)
--- NOTE | 2018-11-30 11:34 | Progress Note ---
Assessment and Plan Assessment and plan: Acute encephalopathy multifactorial ?from hypertensive urgency +/- brain opportunistic infection. DDx: Neurosyphilis, VZV/CMV encephalitis versus HIMS CLERK lymphoma versus less likely PML v/s ischemic CVA (seems more likely) improving - CT head showed bilateral chronic ischemic changes. - Brain MRI showed areas of edema in the basal ganglia and thalami bilaterally, within the jamari and in the cerebral hemispheres bilaterally in the subcortical and deep white matter and in portions of the cortex, areas of encephalomalacia in the basal ganglia bilaterally with evidence of previous hemorrhage or mineral deposition and numerous small foci of acute infarct in the basal ganglia bilaterally, subinsular regions bilaterally and medial temporal lobes bilaterally and possibly in the occipital cortex bilaterally. - Brain MRA showed possible dissection versus artifact at the basilar artery. Luminal irregularity at the anterior, middle, and posterior cerebral arteries as well as the carotid siphons may represent mild to moderate atherosclerotic disease. More notable narrowing at the distal right A1 segment. Differential diagnosis includes motion artifact and vasculitis. Vertebral arteries are not clearly visualized. - CSF wbc 4, rbc 113, Seg 8%, Lymph 76%, protein 55, glucose 73 which is not c/w meningitis - RPR reactive 1:32 / FTA ABs reactive, treated with penicillin and ceftriaxone but CSF VDRL Non reactive. - Toxoplasma IgG negative, CSF Toxoplasma PCR: negative - Blood CMV DNA VL=1,370, 3.1 log on ganciclovir - likely reactivation - Repeat CMV DNA PCR 10/24/2018: <200. Off ganciclovir. - Glucan Assay: negative Consulted Neurology, he was evaluated by DR. Valentine. mentation is improved, and this is likely his new baseline Dysphagia/ moderate [place] [place] recommended pureed with nectar thickened liquids, continue this diet -gastroenterology technician consulted Anemia/thrombocytopenia, leukocytosis, coagulopathy; now resolved -Status post platelet (3 units) and prbc (6 units ) transfusion, the patient had only few schistocytes on smear, ADAMS13 91% activity plt count has recovered HIV/AIDS, CD4 count 3, HIV viral load 320,000 Sepsis acute bacterial PNA, CMV viremia toxo neg, CSF neg ,Whole blood cmv PCR was positive at 1374 abx and anti- antiviral per ID,continues to have fever on and off chest CT :Patchy airspace disease in the right lower lobe compatible with pneumonia. No evidence of pleural effusion. -repeat CXR : clear lungs and normal bony and soft tissue structures. Patchy airspace disease in the right lower lobe has resolved since 11/07/18 Continues on atovaquone as prophylaxis. Patient has sulfa allergy. Oral candidiasis, nystatin swish and spit ordered x 7 days SHRUTHI/ATN now ESRD Continue hemodialysis per nephrology. Hyperkalemia, resolved Severe protein calorie malnutrition -dietitican consult Acute hypoxic resp failure on MV> 96 hours self extubated 10/16, continue supplemental oxygen prn CTA neg for PE on 11/06 Acute on chronic systolic CHF He was treated with Cardene drip which was weaned off. Optimize medications for CHF on coreg, no mik due to high K, fluid removal by dialysis Stage 2 sacral wound decub, and bilat buttock wounds left buttocks area. The wound is measured at 9.0x2.5. 25% slough noticed to the wound sacral area. The wound is measured at 3.5x3.5.80% necrotic tissue noticed to the wound right buttocks area. The wound is measured at 5.0x3.0. no evidence of infection, but wounds are necrotic, cont wound care Depression MH input appreciated, he is improving Severe debility; he was previously refusing PT and not participating. He agrees to be more complaints of physical therapy. he is now participating with PT, contractures are improving DVT ppx- heparin sq Disposition: Physical therapy reports high fall risk and the need for maximal assist. I asked the patient about help at home particularly pertaining to his partner as informed to me by case management. However, patient was extremely evasive and did not answer my questions. He did give me a number for his mother at [phone]. He stated that she will be coming down to take care of him from [place]. I will attempt to discuss with mother discharge planning. History Interval history: Patient is 43 YO Male with HIV, hypertension, previous stroke, Nicotine Dep endence, presents to ED for evaluation. Patient was confused and lethargic and unable to provide history. He was seen and evaluated in ED and found to be in distress and unable to protect his airway and was therefore intubated, placed on ventilator and admitted to ICU. Patient diagnosed with acute resp failure, renal failure(acute vs acute on chronic) , Encephalopathy, Acidosis. He is followed by ID Physician for HIV/AIDS. His renal failure worsened therefore started on hemodialysis for SHRUTHI due to ATN, now ESRD. He has had a prolonged course, diagnosed with acute resp failure, sepsis , toxic metabolic encephalopathy. He is on HAART. Physical therapy reports high fall risk and the need for maximal assist. I asked the patient about help at home particularly pertaining to his partner is informed to me by case management. However, patient was extremely evasive and did not answer my questions. He did give me a number for his mother at [phone]. He stated that she will be coming down to take care of him from [place]. Hospitalist Physical - Constitutional Vitals: Temp Pulse Resp BP Pulse Ox 97.5 F L 108 H 18 137/95 100 11/30/18 05:42 11/30/18 05:42 11/30/18 05:42 11/30/18 05:42 11/30/18 05:42 General appearance: Present: no acute distress, cachectic - EENT Eyes: Present: PERRL, EOM intact ENT: hearing intact, clear oral mucosa, dentition normal - Neck Neck: Present: supple, normal ROM - Respiratory Respiratory effort: normal Respiratory: bilateral: CTA - Cardiovascular Rhythm: regular Heart Sounds: Present: S1 & S2. Absent: gallop, rub - Extremities Extremities: no ischemia, No edema, Full ROM - Abdominal General gastrointestinal: soft, non-tender, non-distended, normal bowel sounds - Integumentary Integumentary: Present: clear, warm, dry - Neurologic Neurologic: CNII-XII intact, moves all extremities Results - Labs CBC & Chem 7: 11/29/18 05:15 11/29/18 05:15 Labs: Laboratory Last Values WBC 7.0 K/mm3 (4.5-11.0) 11/29/18 05:15 RBC 2.70 M/mm3 (3.65-5.03) L 11/29/18 05:15 Hgb 7.7 gm/dl (11.8-15.2) L 11/29/18 05:15 Hct 24.6 % (35.5-45.6) L 11/29/18 05:15 MCV 91 fl (84-94) 11/29/18 05:15 MCH 29 pg (28-32) 11/29/18 05:15 MCHC 31 % (32-34) L 11/29/18 05:15 RDW 21.3 % (13.2-15.2) H 11/29/18 05:15 Plt Count 223 K/mm3 (140-440) 11/29/18 05:15 Lymph % (Auto) Appian Developer 11/24/18 00:09 Louisa % (Auto) Appian Developer 11/24/18 00:09 Eos % (Auto) Appian Developer 11/24/18 00:09 Baso % (Auto) Appian Developer 11/24/18 00:09 Lymph # Appian Developer 11/24/18 00:09 Louisa # Appian Developer 11/24/18 00:09 Eos # Appian Developer 11/24/18 00:09 Baso # Appian Developer 11/24/18 00:09 Add Manual Diff Complete 11/29/18 05:15 Total Counted 100 11/29/18 05:15 Seg Neutrophils % Appian Developer 11/24/18 00:09 Seg Neuts % (Manual) 87.0 % (40.0-70.0) H 11/29/18 05:15 Band Neutrophils % 0 % 11/29/18 05:15 Lymphocytes % (Manual) 3.0 % (13.4-35.0) L 11/29/18 05:15 Reactive Lymphs % (Man) 2.0 % 11/29/18 05:15 Monocytes % (Manual) 4.0 % (0.0-7.3) 11/29/18 05:15 Eosinophils % (Manual) 1.0 % (0.0-4.3) 11/29/18 05:15 Basophils % (Manual) 2.0 % (0.0-1.8) H 11/29/18 05:15 Metamyelocytes % 1.0 % 11/29/18 05:15 Myelocytes % 0 % 11/29/18 05:15 Promyelocytes % 0 % 11/29/18 05:15 Blast Cells % 0 % 11/29/18 05:15 Nucleated RBC % 1.0 % (0.0-0.9) H 11/29/18 05:15 Seg Neutrophils # Appian Developer 11/24/18 00:09 Seg Neutrophils # Man 6.1 K/mm3 (1.8-7.7) 11/29/18 05:15 Band Neutrophils # 0.0 K/mm3 11/29/18 05:15 Abs Lymphs (Manual) 267 cells/uL (850-3900) L 10/11/18 17:36 Lymphocytes # (Manual) 0.2 K/mm3 (1.2-5.4) L 11/29/18 05:15 Abs React Lymphs (Man) 0.1 K/mm3 11/29/18 05:15 Monocytes # (Manual) 0.3 K/mm3 (0.0-0.8) 11/29/18 05:15 Eosinophils # (Manual) 0.1 K/mm3 (0.0-0.4) 11/29/18 05:15 Basophils # (Manual) 0.1 K/mm3 (0.0-0.1) 11/29/18 05:15 Metamyelocytes # 0.1 K/mm3 11/29/18 05:15 Myelocytes # 0.0 K/mm3 11/29/18 05:15 Promyelocytes # 0.0 K/mm3 11/29/18 05:15 Blast Cells # 0.0 K/mm3 11/29/18 05:15 Pathologist Review 10/15/18 03:14 WBC Morphology Not Reportable 11/29/18 05:15 Hypersegmented Neuts Not Reportable 11/29/18 05:15 Hyposegmented Neuts Not Reportable 11/29/18 05:15 Hypogranular Neuts Not Reportable 11/29/18 05:15 Smudge Cells Not Reportable 11/29/18 05:15 Toxic Granulation Not Reportable 11/29/18 05:15 Toxic Vacuolation Not Reportable 11/29/18 05:15 Dohle Bodies Not Reportable 11/29/18 05:15 Pelger-Huet Anomaly Not Reportable 11/29/18 05:15 Kartik Rods Not Reportable 11/29/18 05:15 Platelet Estimate Consistent w auto 11/29/18 05:15 Clumped Platelets Not Reportable 11/29/18 05:15 Plt Clumps, EDTA Not Reportable 11/29/18 05:15 Large Platelets 1+ 11/29/18 05:15 Giant Platelets Not Reportable 11/29/18 05:15 Platelet Satelliting Not Reportable 11/29/18 05:15 Plt Morphology Comment Not Reportable 11/29/18 05:15 RBC Morphology Not Reportable 11/29/18 05:15 Dimorphic RBCs Not Reportable 11/29/18 05:15 Polychromasia Not Reportable 11/29/18 05:15 Hypochromasia Not Reportable 11/29/18 05:15 Poikilocytosis 1+ 11/29/18 05:15 Anisocytosis 1+ 11/29/18 05:15 Microcytosis Not Reportable 11/29/18 05:15 Macrocytosis 1+ 11/29/18 05:15 Spherocytes Not Reportable 11/29/18 05:15 Pappenheimer Bodies Not Reportable 11/29/18 05:15 Sickle Cells Not Reportable 11/29/18 05:15 Target Cells Not Reportable 11/29/18 05:15 Tear Drop Cells Not Reportable 11/29/18 05:15 Ovalocytes Few 11/29/18 05:15 Stomatocytes Few 11/10/18 06:54 Helmet Cells Not Reportable 11/29/18 05:15 Smith-Dumont Bodies Not Reportable 11/29/18 05:15 [place] Rings Not Reportable 11/29/18 05:15 Jani Cells Not Reportable 11/29/18 05:15 Bite Cells Not Reportable 11/29/18 05:15 Crenated Cell Not Reportable 11/29/18 05:15 Elliptocytes 1+ 11/29/18 05:15 Acanthocytes (Spur) Not Reportable 11/29/18 05:15 Rouleaux Not Reportable 11/29/18 05:15 Hemoglobin C Crystals Not Reportable 11/29/18 05:15 Schistocytes Not Reportable 11/29/18 05:15 Malaria parasites Not Reportable 11/29/18 05:15 Jv Bodies Not Reportable 11/29/18 05:15 Hem Pathologist Commnt No 11/29/18 05:15 PT 17.7 Sec. (12.2-14.9) H 11/06/18 13:18 INR 1.36 (0.87-1.13) H 11/06/18 13:18 APTT 30.6 Sec. (24.2-36.6) 11/06/18 13:18 Thrombin Time 16.9 Sec. (15.1-19.6) 10/10/18 15:02 Heparin Anti-Xa Level < 0.10 U.I./ml (0.3-0.7) L 11/07/18 21:31 Heparin Anti-Xa, Unfract Negative (Negative) 10/25/18 05:59 POC ABG pH 7.455 (7.35-7.45) H 11/23/18 13:46 POC ABG pCO2 32.0 (35-45) L 10/21/18 09:49 POC ABG pO2 111 (80-105) H 11/23/18 13:46 POC ABG HCO3 17.3 (22-26 mml/L) 11/23/18 13:46 POC ABG Total CO2 18 (23-27mmol/L) 11/23/18 13:46 POC ABG O2 Sat 99 11/23/18 13:46 POC ABG Base Excess -7 ((-2) - (+3)mmol/L) 11/23/18 13:46 FiO2 21 % 11/23/18 13:46 Sodium 137 mmol/L (137-145) 11/29/18 05:15 Potassium 3.3 mmol/L (3.6-5.0) L 11/29/18 05:15 Chloride 93.7 mmol/L (98-107) L 11/29/18 05:15 Carbon Dioxide 27 mmol/L (22-30) 11/29/18 05:15 Anion Gap 20 mmol/L 11/29/18 05:15 BUN 14 mg/dL (9-20) 11/29/18 05:15 Creatinine 3.4 mg/dL (0.8-1.5) H 11/29/18 05:15 Estimated GFR 24 ml/min 11/29/18 05:15 BUN/Creatinine Ratio 4 % 11/29/18 05:15 Glucose 115 mg/dL (75-100) H 11/29/18 05:15 POC Glucose 110 (70-105) H 11/23/18 13:35 Osmolality 338 Mosm/kg 10/11/18 17:35 Lactic Acid 1.80 mmol/L (0.7-2.0) 10/12/18 05:59 Uric Acid 13.4 mg/dL (3.5-7.6) H 10/11/18 17:36 Calcium 8.7 mg/dL (8.4-10.2) 11/29/18 05:15 Phosphorus 6.50 mg/dL (2.5-4.5) H 11/24/18 10:53 Magnesium 3.10 mg/dL (1.7-2.3) H 10/18/18 05:03 Iron 147 ug/dL (49-181) 10/11/18 17:36 TIBC 236 mcg/dL (250-450) L 10/11/18 17:36 Ferritin 73287.0 ng/mL (13.0-400.0) H 10/11/18 17:35 Total Bilirubin 0.30 mg/dL (0.1-1.2) 11/19/18 05:31 Direct Bilirubin 0.2 mg/dL (0-0.2) 10/16/18 04:07 Indirect Bilirubin 0.3 mg/dL 10/16/18 04:07 AST 26 units/L (5-40) 11/19/18 05:31 ALT 11 units/L (7-56) 11/19/18 05:31 Alkaline Phosphatase 74 units/L (35-129) 11/19/18 05:31 Ammonia 25.0 umol/L (25-60) 10/17/18 14:59 Lactate Dehydrogenase 925 units/L (91-180) H 10/22/18 05:51 Troponin T 0.357 ng/mL (0.00-0.029) H* 11/06/18 05:54 NT-Pro-B Natriuret Pep 48225 pg/mL (0-450) H 10/10/18 15:42 Total Protein 7.6 g/dL (6.3-8.2) 11/19/18 05:31 Albumin 2.6 g/dL (3.9-5) L 11/19/18 05:31 Albumin/Globulin Ratio 0.5 % 11/19/18 05:31 Triglycerides 306 mg/dL (2-149) H 11/05/18 11:29 Cholesterol 145 mg/dL (50-199) 11/05/18 11:29 LDL Cholesterol Direct 89 mg/dL (50-130) 11/05/18 11:29 HDL Cholesterol 25 mg/dL (40-59) L 11/05/18 11:29 Cholesterol/HDL Ratio 5.80 % 11/05/18 11:29 Serotonin Release Assay See scanned result 10/25/18 05:59 Vitamin B12 912.3 pg/mL (211-911) H 10/14/18 08:51 Folate 8.32 ng/mL (7.3-26.0) 10/14/18 08:51 PTH Intact 118.0 pg/mL (15-65) H 11/24/18 10:53 Urine Creatinine 30.8 mg/dL (0.1-20.0) H 10/13/18 04:43 Urine Sodium 106 mmol/L 10/13/18 04:43 Urine Total Protein 75 mg/dL (5-11.8) H 10/13/18 04:43 CSF Appearance Clear 10/16/18 15:00 CSF Color Colorless 10/16/18 15:00 CSF WBC 4 /mm3 (1-10) 10/16/18 15:00 CSF RBC 113 /mm3 (0-0) 10/16/18 15:00 CSF Seg Neutrophils 8.0 % (0-6) 10/16/18 15:00 CSF Lymphocytes % 76.0 % (40-80) 10/16/18 15:00 CSF Reactive Lymphs 2.0 % 10/16/18 15:00 CSF Monocytes % 14.0 % (15-45) 10/16/18 15:00 CSF Eosinophils % 0 % 10/16/18 15:00 CSF Basophils 0 % 10/16/18 15:00 CSF Pathologist Review C 10/16/18 15:00 CSF Glucose 73 mg/dL 10/16/18 15:00 CSF Total Protein 55 mg/dL 10/16/18 15:00 CSF VDRL Nonreactive (Nonreactive) 10/16/18 15:00 Random Vancomycin 21.1 ug/mL (0-40.0) 11/20/18 06:15 Immunofix Electrophor see below 10/11/18 17:36 RENO Screen Negative (Negative) 10/21/18 15:07 Proteinase 3 (PR3) Ab <1.0 AI (<1.0) 10/21/18 15:07 Myeloperoxidase Ab <1.0 AI (<1.0) 10/21/18 15:07 Heparin-induced Plt Ab Negative (Negative) 10/25/18 05:59 UF Heparin High Dose 0 % Release 10/25/18 05:59 VJ UFH Low Dose 0.1 0 % Release 10/25/18 05:59 VJ UFH Low Dose 0.5 14 % Release 10/25/18 05:59 Lymph Enumerat CD4/CD8 0.01 (0.86-5.00) L 10/11/18 17:36 % CD3 Cells 85 % (57-85) 10/11/18 17:36 Absolute CD3 Count 226 cells/uL (840-3060) L 10/11/18 17:36 % CD4 Cells 1 % (30-61) L 10/11/18 17:36 Absolute CD4 Count 3 cells/uL (490-1740) L 10/11/18 17:36 % CD8 Cells 82 % (12-42) H 10/11/18 17:36 Absolute CD8 Count 228 cells/uL (180-1170) 10/11/18 17:36 % CD19 Cells 6 % (6-29) 10/11/18 17:36 Absolute CD19 Count 16 cells/uL (110-660) L 10/11/18 17:36 RPR Titer 1:32 10/11/18 17:37 RPR Reactive (Nonreactive) 10/11/18 17:37 T.pallidum Ab (FTA-ABS) Reactive (Nonreactive) 10/12/18 Unknown CMV DNA PCR log classified 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 See scanned result 10/24/18 17:47 Hepatitis A IgM Ab Non-reactive (NonReactive) 11/21/18 09:58 Hep Bs Antigen Non-reactive (Negative) 11/21/18 09:58 Hep B Core IgM Ab Non-reactive (NonReactive) 11/21/18 09:58 Hepatitis C Antibody Non-reactive (NonReactive) 11/21/18 09:58 HIV-1 RNA PCR copies/ml [id number] Copies/mL H 10/11/18 17:36 HIV-1 RNA (PCR) log 5.51 Log cps/mL H 10/11/18 17:36 HIV-1 Genotyping See scanned results 10/29/18 19:48 Toxoplasma IgG Ab <7.20 IU/mL (<7.20) 10/13/18 07:54 Miscellaneous Test Flexitest 1 10/31/18 06:43 Blood Type A POSITIVE 11/08/18 11:28 Antibody Screen Negative 11/08/18 11:28 Crossmatch See Detail 11/08/18 11:28 Active Medications - Current Medications Current Medications: Generic Name Dose Route Start Last Admin Trade Name Freq PRN Reason Stop Dose Admin Acetaminophen 500 mg 10/16/18 10:02 04/15/19 20:30 Tylenol PO 500 mg Q6H PRN Administration Fever >101 Albumin Human 25 gm 11/04/18 16:14 Alburx 25% (Albumin) IV CHON PRN Hypotension Albuterol 2.5 mg 11/21/18 07:24 Proventil IH Q4HRT PRN Shortness Of Breath Lipase/Protease/Amylase 1 each 10/11/18 12:[address] 10,500 Unit FEEDTUBE PRN PRN For Clogged Feeding Tube Atovaquone 1,500 mg 11/14/18 10:00 11/30/18 11:22 Mepron PO 1,500 mg QDAY RUBI Administration Darunavir 800 mg 10/30/18 18:00 11/30/18 11:24 Prezista PO 800 mg QDAY RUBI Administration Emtricitabine 200 mg 11/01/18 10:00 11/29/18 10:02 Emtriva PO 200 mg Q48HR RUBI Administration Epoetin Dany 20,000 unit 11/12/18 15:00 11/28/18 15:52 Procrit IV 20,000 unit .MWF RUBI Administration Heparin Sodium (Porcine) 5,000 unit 11/04/18 16:15 11/28/18 18:22 Heparin IV 5,000 unit CHON PRN Administration hemodialysis Heparin Sodium (Porcine) 5,000 unit 11/07/18 22:00 11/30/18 05:48 Heparin SUB-Q 5,000 unit Q8HR RUBI Administration Hydrophilic Ointment 1 applic 10/10/18 17:53 Vaseline Lip Therapy TP Q2HR PRN Dry Lips Sodium Chloride 100 mls @ 999 mls/hr 11/12/18 09:51 Nacl 0.9% IV CHON PRN Hypotension Ipratropium [place] 0.5 mg 11/20/18 22:07 Atrovent IH Q4HRT PRN Shortness Of Breath Lansoprazole 30 mg 10/15/18 10:00 11/30/18 11:23 Prevacid Solutab FEEDTUBE 30 mg BID RUBI Administration Metoprolol Tartrate 5 mg 10/18/18 14:05 11/21/18 21:32 Lopressor IV 5 mg Q6HR PRN Administration Tachyarrhythmias Metoprolol Tartrate 25 mg 11/24/18 13:00 11/30/18 05:48 Lopressor PO 25 mg Q6HR RUBI Administration Multi-Ingred Cream/Lotion/Oil/Oint 1 applic 10/10/18 17:53 Artificial Tears Ophth Oint OU Q4HR PRN Dry Eye(s) Multivitamins 1 each 10/11/18 10:00 11/30/18 11:23 Theragran Tab PO 1 each DAILY RUBI Administration Ondansetron HCl 4 mg 11/12/18 15:05 Zofran IV Q8H PRN N/V unrelieved by Buddy Faye Hydrophilic Mucilloid 1 each 11/08/18 18:00 11/30/18 11:26 Metamucil PO Not Given QDAY RUBI Ritonavir 100 mg 10/30/18 18:00 11/30/18 11:23 Norvir PO 100 mg QDAY RUBI Administration Sertraline HCl 50 mg 11/21/18 19:52 11/30/18 11:24 Zoloft PO 50 mg QDAY RUBI Administration Simple Syrup 15 ml 10/11/18 12:58 Simple Syrup FEEDTUBE PRN PRN Hypoglycemia Simple Syrup 30 ml 10/11/18 12:58 Simple Syrup FEEDTUBE PRN PRN Hypoglycemia Sodium Bicarbonate 325 mg 10/11/18 12:58 Sodium Bicarbonate FEEDTUBE PRN PRN For Clogged Feeding Tube Sodium Chloride 10 ml 10/10/18 22:00 11/30/18 11:25 Sodium Chloride Flush Syringe 10 Ml IV 10 ml BID RUBI Administration Sodium Chloride 10 ml 10/10/18 18:12 Sodium Chloride Flush Syringe 10 Ml IV PRN PRN LINE FLUSH Tenofovir Disoproxil Fumarate 300 mg 10/30/18 17:45 11/27/18 18:27 Viread PO 300 mg Q96H RUBI Administration Nutrition/Malnutrition Assess - Dietary Evaluation Nutrition/Malnutrition Findings: Nutrition Notes Start: 10/11/18 11:14 Freq: Status: Active Protocol: Document 11/26/18 14:28 RM (Rec: 11/26/18 14:34 RM [id number]) Nutrition Notes Initial or Follow up Reassessment Current Diagnosis Acute Kidney Injury,CKD(stage I-IV),Hypertension,Heart Failure,Stroke Other Pertinent Diagnosis Depression,Dysphagia,on HD, Acute encephalopathy,HIV/AIDS, Syphilis Current Diet Pureed Labs/Tests Reviewed Pertinent Medications Reviewed Height 5 ft 9 in Weight 51 kg [place] Body Weight (kg) 72.72 BMI 16.6 Subjective/Other Information Pt confused at time of visit. Pt tech stated that pt eats 25 % of his meals. Unsure of whether pt has had any Nepro. Percent of energy/protein needs met: 43%/66% Burn Absent Trauma Absent #2 Nutrition Diagnosis Malnutrition Diagnosis Progress(for reassessment Continues documentation) #1 Nutrition Diagnosis Inadequate oral intake Diagnosis Progress(for reassessment Continues documentation) Is patient on ventilator? No Is Patient Ambulatory and/or Out of Bed No [facility]EE[facility]) 1683.876 Kcal/Kg value to use for calculation 40 Approximate Energy Requirements Using 2040 kcal/Kg Calculation Used for Recommendations Kcal/kg Additional Notes Pro needs 1.2-1.5g/k-72g/ day Fluid needs 1ml/kcal Nutrition Intervention Change Diet Order: Pureed diet Add Supplement/Snack (indicate name/kcal Nepro 1 daily /protein ) Provides kCal: 425 Provides Protein (gm) 19 Goal #1 Meet at least 75% of calorie and protein needs via PO and ONS intakes Anticipated Discharge Needs: Pureed, Renal diet Follow-Up By: 12/05/18 Additional Comments Follow for PO and ONS intakes
[2018-11-30 20:29] LABS: HIV-1 RNA QN PCR 1.67 Log cps/mL
[2018-12-01] MEDS: LOPRESSOR PO SCH ×4 (01:56→18:00)
[2018-12-01] MEDS: HEPARIN SUB-Q SCH ×3 (06:09→21:33)
[2018-12-01] MEDS: THERAGRAN Tab PO SCH (10:15)
[2018-12-01] MEDS: MEPRON PO SCH (10:15)
[2018-12-01] MEDS: PREVACID SOLUTAB FEEDTUBE SCH ×2 (10:15→21:32)
[2018-12-01] MEDS: TIVICAY PO SCH (10:16)
[2018-12-01] MEDS: METAMUCIL PO SCH (10:16)
[2018-12-01] MEDS: NORVIR PO SCH (10:16)
[2018-12-01] MEDS: EMTRIVA PO SCH (10:16)
[2018-12-01] MEDS: ZOLOFT PO SCH (10:17)
[2018-12-01] MEDS: SODIUM CHLORIDE FLUSH SYRINGE 10 ML IV SCH ×2 (10:17→21:32)
[2018-12-01] MEDS: PREZISTA PO SCH (10:17)
--- NOTE | 2018-12-01 10:53 | Progress Note ---
Assessment and Plan Assessment: * ESRD --Permcath insertion 11/23 * HIV/AIDS * Acute encephalopathy * Acute hypoxic respiratory failure s/p mechanical ventilation * Hx of urinary retention * Anemia * Hyperkalemia - resolved * Decubitus ulcer s/p debridement Plan: * Continue HD qMWF schedule * UF as tolerated * ID following * Surgery recommendations noted * Epogen TIW prn * Continue antiHTN medications * Note PT recommendation for SHANDRA * Outpatient HD clinic placement in progress * PT notes reviewed; patient is not ambulatory, "max assistance, max fall risk" Subjective Date of service: 12/01/18 Principal diagnosis: anemia - HIV Interval history: resting well in bed today Objective - Exam Narrative Exam: HEENT: Oral mucosa moist no pallor or icterus Neck: Supple no JVD Chest: Clear to auscultation anteriorly CVS: Regular rate and rhythm S1 and S2 heard Abdomen: Soft nontender no suprapubic masses no organomegaly appreciable Extremity: Dry skin less than 1+ peripheral edema Musculoskeletal: No joint effusion noted in knees and ankle Neurological: Alert awake Dermatology: No petechial rashes Psychiatry: No evidence of any agitation and aggression noted - Vital Signs Vital signs: Vital Signs - 12hr 12/01/18 12/01/18 12/01/18 01:56 04:46 06:09 Temperature 98.4 F Pulse Rate 129 H 125 H 125 H Respiratory 20 Rate Blood Pressure 155/112 149/105 149/105 O2 Sat by Pulse 100 Oximetry - Lab 11/29/18 05:15 11/29/18 05:15 Most recent lab results Calcium 8.7 mg/dL (8.4-10.2) 11/29/18 05:15 Phosphorus 6.50 mg/dL (2.5-4.5) H 11/24/18 10:53 Magnesium 3.10 mg/dL (1.7-2.3) H 10/18/18 05:03 Urine Creatinine 30.8 mg/dL (0.1-20.0) H 10/13/18 04:43 Urine Sodium 106 mmol/L 10/13/18 04:43 Urine Total Protein 75 mg/dL (5-11.8) H 10/13/18 04:43 Medications & Allergies - Medications Allergies/Adverse Reactions: Allergies Sulfa (Sulfonamide Antibiotics) Allergy (Verified 10/10/18 16:54) Unknown Home Medications: Home Medications Medication Instructions Recorded Confirmed Last Taken Type Acetaminophen [Tylenol] 1,000 mg PO Q6HR 10/10/18 10/10/18 Unknown History Amlodipine Besylate [Norvasc] 10 mg PO QDAY 10/10/18 10/10/18 Unknown History Aspirin [Adult Aspirin] 81 mg PO DAILY 10/10/18 10/10/18 Unknown History Atorvastatin [Lipitor Tab] 80 mg PO DAILY 10/10/18 10/10/18 Unknown History Losartan [Cozaar] 100 mg PO QDAY 10/10/18 10/10/18 Unknown History Multivitamin [Multiple Vitamins] 1 each PO DAILY 10/10/18 10/10/18 Unknown History hydroCHLOROthiazide [HCTZ] 25 mg PO QDAY 10/10/18 10/10/18 Unknown History Active Medications: Generic Name Dose Route Start Last Admin Trade Name Freq PRN Reason Stop Dose Admin Acetaminophen 500 mg 10/16/18 10:02 11/26/18 20:30 Tylenol PO 500 mg Q6H PRN Administration Fever >101 Albumin Human 25 gm 11/04/18 16:14 Alburx 25% (Albumin) IV CHON PRN Hypotension Albuterol 2.5 mg 11/21/18 07:24 Proventil IH Q4HRT PRN Shortness Of Breath Lipase/Protease/Amylase 1 each 10/11/18 12:58 Pancreaze 10,500 Unit FEEDTUBE PRN PRN For Clogged Feeding Tube Atovaquone 1,500 mg 11/14/18 10:00 12/01/18 10:15 Mepron PO 1,500 mg QDAY RUBI Administration Darunavir 800 mg 10/30/18 18:00 12/01/18 10:17 Prezista PO 800 mg QDAY RUBI Administration Emtricitabine 200 mg 11/01/18 10:00 12/01/18 10:16 Emtriva PO 200 mg Q48HR RUBI Administration Epoetin Dany 20,000 unit 11/12/18 15:00 11/28/18 15:52 Procrit IV 20,000 unit .MWF RUBI Administration Heparin Sodium (Porcine) 5,000 unit 11/04/18 16:15 11/28/18 18:22 Heparin IV 5,000 unit CHON PRN Administration hemodialysis Heparin Sodium (Porcine) 5,000 unit 11/07/18 22:00 04/20/19 06:09 Heparin SUB-Q 5,000 unit Q8HR RUBI Administration Hydrophilic Ointment 1 applic 10/10/18 17:53 Vaseline Lip Therapy TP Q2HR PRN Dry Lips Sodium Chloride 100 mls @ 999 mls/hr 11/12/18 09:51 Nacl 0.9% IV CHON PRN Hypotension Ipratropium [place] 0.5 mg 11/20/18 22:07 Atrovent IH Q4HRT PRN Shortness Of Breath Lansoprazole 30 mg 10/15/18 10:00 12/01/18 10:15 Prevacid Solutab FEEDTUBE 30 mg BID RUBI Administration Metoprolol Tartrate 5 mg 10/18/18 14:05 11/21/18 21:32 Lopressor IV 5 mg Q6HR PRN Administration Tachyarrhythmias Metoprolol Tartrate 25 mg 11/24/18 13:00 12/01/18 06:09 Lopressor PO 25 mg Q6HR RUBI Administration Multi-Ingred Cream/Lotion/Oil/Oint 1 applic 10/10/18 17:53 Artificial Tears Ophth Oint OU Q4HR PRN Dry Eye(s) Multivitamins 1 each 10/11/18 10:00 12/01/18 10:15 Theragran Tab PO 1 each DAILY RUBI Administration Ondansetron HCl 4 mg 11/12/18 15:05 Zofran IV Q8H PRN N/V unrelieved by Buddy Faye Hydrophilic Mucilloid 1 each 11/08/18 18:00 12/01/18 10:16 Metamucil PO 1 each QDAY RUBI Administration Ritonavir 100 mg 10/30/18 18:00 12/01/18 10:16 Norvir PO 100 mg QDAY RUBI Administration Sertraline HCl 50 mg 11/21/18 19:52 12/01/18 10:17 Zoloft PO 50 mg QDAY RUBI Administration Simple Syrup 15 ml 10/11/18 12:58 Simple Syrup FEEDTUBE PRN PRN Hypoglycemia Simple Syrup 30 ml 10/11/18 12:58 Simple Syrup FEEDTUBE PRN PRN Hypoglycemia Sodium Bicarbonate 325 mg 10/11/18 12:58 Sodium Bicarbonate FEEDTUBE PRN PRN For Clogged Feeding Tube Sodium Chloride 10 ml 10/10/18 22:00 12/01/18 10:17 Sodium Chloride Flush Syringe 10 Ml IV 10 ml BID RUBI Administration Sodium Chloride 10 ml 10/10/18 18:12 Sodium Chloride Flush Syringe 10 Ml IV PRN PRN LINE FLUSH Tenofovir Disoproxil Fumarate 300 mg 10/30/18 17:45 11/27/18 18:27 Viread PO 300 mg Q96H RUBI Administration
[2018-12-01 10:55] LABS: CD4/CD8 Ratio 0.01 (0.86-5.00)
--- NOTE | 2018-12-01 11:04 | Progress Note ---
Assessment and Plan Assessment and plan: Acute encephalopathy multifactorial ?from hypertensive urgency +/- brain opportunistic infection. DDx: Neurosyphilis, VZV/CMV encephalitis versus CUSTOMER DEVELOPMENT MANAGER lymphoma versus less likely PML v/s ischemic CVA (seems more likely) improving - CT head showed bilateral chronic ischemic changes. - Brain MRI showed areas of edema in the basal ganglia and thalami bilaterally, within the jamari and in the cerebral hemispheres bilaterally in the subcortical and deep white matter and in portions of the cortex, areas of encephalomalacia in the basal ganglia bilaterally with evidence of previous hemorrhage or mineral deposition and numerous small foci of acute infarct in the basal ganglia bilaterally, subinsular regions bilaterally and medial temporal lobes bilaterally and possibly in the occipital cortex bilaterally. - Brain MRA showed possible dissection versus artifact at the basilar artery. Luminal irregularity at the anterior, middle, and posterior cerebral arteries as well as the carotid siphons may represent mild to moderate atherosclerotic disease. More notable narrowing at the distal right A1 segment. Differential diagnosis includes motion artifact and vasculitis. Vertebral arteries are not clearly visualized. - CSF wbc 4, rbc 113, Seg 8%, Lymph 76%, protein 55, glucose 73 which is not c/w meningitis - RPR reactive 1:32 / FTA ABs reactive, treated with penicillin and ceftriaxone but CSF VDRL Non reactive. - Toxoplasma IgG negative, CSF Toxoplasma PCR: negative - Blood CMV DNA VL=1,370, 3.1 log on ganciclovir - likely reactivation - Repeat CMV DNA PCR 10/24/2018: <200. Off ganciclovir. - Glucan Assay: negative Consulted Neurology, he was evaluated by DR. Valentine. mentation is improved, and this is likely his new baseline Dysphagia/ moderate malnutrition -[facility] 10/23, recommended pureed with nectar thickened liquids, continue this diet -superintendent automotive consulted Anemia/thrombocytopenia, leukocytosis, coagulopathy; now resolved -Status post platelet (3 units) and prbc (6 units ) transfusion, the patient had only few schistocytes on smear, ADAMS13 91% activity plt count has recovered HIV/AIDS, CD4 count 3, HIV viral load 320,000 Sepsis acute bacterial PNA, CMV viremia toxo neg, CSF neg ,Whole blood cmv PCR was positive at 1374 abx and anti- antiviral per ID,continues to have fever on and off chest CT :Patchy airspace disease in the right lower lobe compatible with pneumonia. No evidence of pleural effusion. -repeat CXR : clear lungs and normal bony and soft tissue structures. Patchy airspace disease in the right lower lobe has resolved since 11/07/18 Continues on atovaquone as prophylaxis. Patient has sulfa allergy. Oral candidiasis, nystatin swish and spit ordered x 7 days SHRUTHI/ATN now ESRD Continue hemodialysis per nephrology. Hyperkalemia, resolved Severe protein calorie malnutrition -dietitican consult Acute hypoxic resp failure on MV> 96 hours self extubated 10/16, continue supplemental oxygen prn CTA neg for PE on 11/06 Acute on chronic systolic CHF He was treated with Cardene drip which was weaned off. Optimize medications for CHF on coreg, no mik due to high K, fluid removal by dialysis Stage 2 sacral wound decub, and bilat buttock wounds left buttocks area. The wound is measured at 9.0x2.5. 25% slough noticed to the wound sacral area. The wound is measured at 3.5x3.5.80% necrotic tissue noticed to the wound right buttocks area. The wound is measured at 5.0x3.0. no evidence of infection, but wounds are necrotic, cont wound care Depression MH input appreciated, he is improving Severe debility; he was previously refusing PT and not participating. He agrees to be more complaints of physical therapy. he is now participating with PT, contractures are improving DVT ppx- heparin sq Disposition: Physical therapy reports high fall risk and the need for maximal assist. I asked the patient about help at home particularly pertaining to his partner as informed to me by case management. However, patient was extremely evasive and did not answer my questions. He did give me a number for his mother at [phone]. He stated that she will be coming down to take care of him from [place]. I will attempt to discuss with mother discharge planning. I called the number listed and left a message. History Interval history: Patient is 43 YO Male with HIV, hypertension, previous stroke, Nicotine Dependence, presents to ED for evaluation. Patient was confused and lethargic and unable to provide history. He was seen and evaluated in ED and found to be in distress and unable to protect his airway and was therefore intubated, placed on ventilator and admitted to ICU. Patient diagnosed with acute resp failure, renal failure(acute vs acute on chronic) , Encephalopathy, Acidosis. He is followed by ID Physician for HIV/AIDS. His renal failure worsened therefore started on hemodialysis for SHRUTHI due to ATN, now ESRD. He has had a prolonged course, diagnosed with acute resp failure, sepsis , toxic metabolic encephalopathy. He is on HAART. Physical therapy reports high fall risk and the need for maximal assist. I asked the patient about help at home particularly pertaining to his partner is informed to me by case management. However, patient was extremely evasive and did not answer my questions. He did give me a number for his mother at [phone]. He stated that she will be coming down to take care of him from [place]. Hospitalist Physical - Constitutional Vitals: Temp Pulse Resp BP Pulse Ox 98.4 F 125 H 20 149/105 100 12/01/18 04:46 12/01/18 06:09 12/01/18 04:46 12/01/18 06:09 12/01/18 04:46 General appearance: Present: no acute distress, cachectic - EENT Eyes: Present: PERRL, EOM intact ENT: hearing intact, clear oral mucosa, dentition normal - Neck Neck: Present: supple, normal ROM - Respiratory Respiratory effort: normal Respiratory: bilateral: CTA - Cardiovascular Rhythm: regular Heart Sounds: Present: S1 & S2. Absent: gallop, rub - Extremities Extremities: no ischemia, No edema, Full ROM - Abdominal General gastrointestinal: soft, non-tender, non-distended, normal bowel sounds - Integumentary Integumentary: Present: clear, warm, dry - Neurologic Neurologic: CNII-XII intact, moves all extremities Results - Labs CBC & Chem 7: 11/29/18 05:15 11/29/18 05:15 Labs: Laboratory Last Values WBC 7.0 K/mm3 (4.5-11.0) 11/29/18 05:15 RBC 2.70 M/mm3 (3.65-5.03) L 11/29/18 05:15 Hgb 7.7 gm/dl (11.8-15.2) L 11/29/18 05:15 Hct 24.6 % (35.5-45.6) L 11/29/18 05:15 MCV 91 fl (84-94) 11/29/18 05:15 MCH 29 pg (28-32) 11/29/18 05:15 MCHC 31 % (32-34) L 11/29/18 05:15 RDW 21.3 % (13.2-15.2) H 11/29/18 05:15 Plt Count 223 K/mm3 (140-440) 11/29/18 05:15 Lymph % (Auto) Pipe Coverer Helper 11/24/18 00:09 [place] % (Auto) Pipe Coverer Helper 11/24/18 00:09 Eos % (Auto) Pipe Coverer Helper 11/24/18 00:09 Baso % (Auto) Pipe Coverer Helper 11/24/18 00:09 Lymph # Pipe Coverer Helper 11/24/18 00:09 [place] # Pipe Coverer Helper 11/24/18 00:09 Eos # Pipe Coverer Helper 11/24/18 00:09 Baso # Pipe Coverer Helper 11/24/18 00:09 Add Manual Diff Complete 11/29/18 05:15 Total Counted 100 11/29/18 05:15 Seg Neutrophils % Pipe Coverer Helper 11/24/18 00:09 Seg Neuts % (Manual) 87.0 % (40.0-70.0) H 11/29/18 05:15 Band Neutrophils % 0 % 11/29/18 05:15 Lymphocytes % (Manual) 3.0 % (13.4-35.0) L 11/29/18 05:15 Reactive Lymphs % (Man) 2.0 % 11/29/18 05:15 Monocytes % (Manual) 4.0 % (0.0-7.3) 11/29/18 05:15 Eosinophils % (Manual) 1.0 % (0.0-4.3) 11/29/18 05:15 Basophils % (Manual) 2.0 % (0.0-1.8) H 11/29/18 05:15 Metamyelocytes % 1.0 % 11/29/18 05:15 Myelocytes % 0 % 11/29/18 05:15 Promyelocytes % 0 % 11/29/18 05:15 Blast Cells % 0 % 11/29/18 05:15 Nucleated RBC % 1.0 % (0.0-0.9) H 11/29/18 05:15 Seg Neutrophils # Pipe Coverer Helper 11/24/18 00:09 Seg Neutrophils # Man 6.1 K/mm3 (1.8-7.7) 11/29/18 05:15 Band Neutrophils # 0.0 K/mm3 11/29/18 05:15 Abs Lymphs (Manual) 519 cells/uL (850-3900) L 11/28/18 06:46 Lymphocytes # (Manual) 0.2 K/mm3 (1.2-5.4) L 11/29/18 05:15 Abs React Lymphs (Man) 0.1 K/mm3 11/29/18 05:15 Monocytes # (Manual) 0.3 K/mm3 (0.0-0.8) 11/29/18 05:15 Eosinophils # (Manual) 0.1 K/mm3 (0.0-0.4) 11/29/18 05:15 Basophils # (Manual) 0.1 K/mm3 (0.0-0.1) 11/29/18 05:15 Metamyelocytes # 0.1 K/mm3 11/29/18 05:15 Myelocytes # 0.0 K/mm3 11/29/18 05:15 Promyelocytes # 0.0 K/mm3 11/29/18 05:15 Blast Cells # 0.0 K/mm3 11/29/18 05:15 Pathologist Review 10/15/18 03:14 WBC Morphology Not Reportable 11/29/18 05:15 Hypersegmented Neuts Not Reportable 11/29/18 05:15 Hyposegmented Neuts Not Reportable 11/29/18 05:15 Hypogranular Neuts Not Reportable 11/29/18 05:15 Smudge Cells Not Reportable 11/29/18 05:15 Toxic Granulation Not Reportable 11/29/18 05:15 Toxic Vacuolation Not Reportable 11/29/18 05:15 Dohle Bodies Not Reportable 11/29/18 05:15 Pelger-Huet Anomaly Not Reportable 11/29/18 05:15 Kartik Rods Not Reportable 11/29/18 05:15 Platelet Estimate Consistent w auto 11/29/18 05:15 Clumped Platelets Not Reportable 11/29/18 05:15 Plt Clumps, EDTA Not Reportable 11/29/18 05:15 Large Platelets 1+ 11/29/18 05:15 Giant Platelets Not Reportable 11/29/18 05:15 Platelet Satelliting Not Reportable 11/29/18 05:15 Plt Morphology Comment Not Reportable 11/29/18 05:15 RBC Morphology Not Reportable 11/29/18 05:15 Dimorphic RBCs Not Reportable 11/29/18 05:15 Polychromasia Not Reportable 11/29/18 05:15 Hypochromasia Not Reportable 11/29/18 05:15 Poikilocytosis 1+ 11/29/18 05:15 Anisocytosis 1+ 11/29/18 05:15 Microcytosis Not Reportable 11/29/18 05:15 Macrocytosis 1+ 11/29/18 05:15 Spherocytes Not Reportable 11/29/18 05:15 Pappenheimer Bodies Not Reportable 11/29/18 05:15 Sickle Cells Not Reportable 11/29/18 05:15 Target Cells Not Reportable 11/29/18 05:15 Tear Drop Cells Not Reportable 11/29/18 05:15 Ovalocytes Few 11/29/18 05:15 Stomatocytes Few 11/10/18 06:54 Helmet Cells Not Reportable 11/29/18 05:15 [place] Bodies Not Reportable 11/29/18 05:15 [place] Rings Not Reportable 11/29/18 05:15 Jani Cells Not Reportable 11/29/18 05:15 Bite Cells Not Reportable 11/29/18 05:15 Crenated Cell Not Reportable 11/29/18 05:15 Elliptocytes 1+ 11/29/18 05:15 Acanthocytes (Spur) Not Reportable 11/29/18 05:15 Rouleaux Not Reportable 11/29/18 05:15 Hemoglobin C Crystals Not Reportable 11/29/18 05:15 Schistocytes Not Reportable 11/29/18 05:15 Malaria parasites Not Reportable 11/29/18 05:15 Jv Bodies Not Reportable 11/29/18 05:15 Hem Pathologist Commnt No 11/29/18 05:15 PT 17.7 Sec. (12.2-14.9) H 11/06/18 13:18 INR 1.36 (0.87-1.13) H 11/06/18 13:18 APTT 30.6 Sec. (24.2-36.6) 11/06/18 13:18 Thrombin Time 16.9 Sec. (15.1-19.6) 10/10/18 15:02 Heparin Anti-Xa Level < 0.10 U.I./ml (0.3-0.7) L 11/07/18 21:31 Heparin Anti-Xa, Unfract Negative (Negative) 10/25/18 05:59 POC ABG pH 7.455 (7.35-7.45) H 11/23/18 13:46 POC ABG pCO2 32.0 (35-45) L 10/21/18 09:49 POC ABG pO2 111 (80-105) H 11/23/18 13:46 POC ABG HCO3 17.3 (22-26 mml/L) 11/23/18 13:46 POC ABG Total CO2 18 (23-27mmol/L) 11/23/18 13:46 POC ABG O2 Sat 99 11/23/18 13:46 POC ABG Base Excess -7 ((-2) - (+3)mmol/L) 11/23/18 13:46 FiO2 21 % 11/23/18 13:46 Sodium 137 mmol/L (137-145) 11/29/18 05:15 Potassium 3.3 mmol/L (3.6-5.0) L 11/29/18 05:15 Chloride 93.7 mmol/L (98-107) L 11/29/18 05:15 Carbon Dioxide 27 mmol/L (22-30) 11/29/18 05:15 Anion Gap 20 mmol/L 11/29/18 05:15 BUN 14 mg/dL (9-20) 11/29/18 05:15 Creatinine 3.4 mg/dL (0.8-1.5) H 11/29/18 05:15 Estimated GFR 24 ml/min 11/29/18 05:15 BUN/Creatinine Ratio 4 % 11/29/18 05:15 Glucose 115 mg/dL (75-100) H 11/29/18 05:15 POC Glucose 110 (70-105) H 11/23/18 13:35 Osmolality 338 Mosm/kg 10/11/18 17:35 Lactic Acid 1.80 mmol/L (0.7-2.0) 10/12/18 05:59 Uric Acid 13.4 mg/dL (3.5-7.6) H 10/11/18 17:36 Calcium 8.7 mg/dL (8.4-10.2) 11/29/18 05:15 Phosphorus 6.50 mg/dL (2.5-4.5) H 11/24/18 10:53 Magnesium 3.10 mg/dL (1.7-2.3) H 10/18/18 05:03 Iron 147 ug/dL (49-181) 10/11/18 17:36 TIBC 236 mcg/dL (250-450) L 10/11/18 17:36 Ferritin 33633.0 ng/mL (13.0-400.0) H 10/11/18 17:35 Total Bilirubin 0.30 mg/dL (0.1-1.2) 11/19/18 05:31 Direct Bilirubin 0.2 mg/dL (0-0.2) 10/16/18 04:07 Indirect Bilirubin 0.3 mg/dL 10/16/18 04:07 AST 26 units/L (5-40) 11/19/18 05:31 ALT 11 units/L (7-56) 11/19/18 05:31 Alkaline Phosphatase 74 units/L (35-129) 11/19/18 05:31 Ammonia 25.0 umol/L (25-60) 10/17/18 14:59 Lactate Dehydrogenase 925 units/L (91-180) H 10/22/18 05:51 Troponin T 0.357 ng/mL (0.00-0.029) H* 11/06/18 05:54 NT-Pro-B Natriuret Pep 77650 pg/mL (0-450) H 10/10/18 15:42 Total Protein 7.6 g/dL (6.3-8.2) 11/19/18 05:31 Albumin 2.6 g/dL (3.9-5) L 11/19/18 05:31 Albumin/Globulin Ratio 0.5 % 11/19/18 05:31 Triglycerides 306 mg/dL (2-149) H 11/05/18 11:29 Cholesterol 145 mg/dL (50-199) 11/05/18 11:29 LDL Cholesterol Direct 89 mg/dL (50-130) 11/05/18 11:29 HDL Cholesterol 25 mg/dL (40-59) L 11/05/18 11:29 Cholesterol/HDL Ratio 5.80 % 11/05/18 11:29 Serotonin Release Assay See scanned result 10/25/18 05:59 Vitamin B12 912.3 pg/mL (211-911) H 10/14/18 08:51 Folate 8.32 ng/mL (7.3-26.0) 10/14/18 08:51 PTH Intact 118.0 pg/mL (15-65) H 11/24/18 10:53 Urine Creatinine 30.8 mg/dL (0.1-20.0) H 10/13/18 04:43 Urine Sodium 106 mmol/L 10/13/18 04:43 Urine Total Protein 75 mg/dL (5-11.8) H 10/13/18 04:43 CSF Appearance Clear 10/16/18 15:00 CSF Color Colorless 10/16/18 15:00 CSF WBC 4 /mm3 (1-10) 10/16/18 15:00 CSF RBC 113 /mm3 (0-0) 10/16/18 15:00 CSF Seg Neutrophils 8.0 % (0-6) 10/16/18 15:00 CSF Lymphocytes % 76.0 % (40-80) 10/16/18 15:00 CSF Reactive Lymphs 2.0 % 10/16/18 15:00 CSF Monocytes % 14.0 % (15-45) 10/16/18 15:00 CSF Eosinophils % 0 % 10/16/18 15:00 CSF Basophils 0 % 10/16/18 15:00 CSF Pathologist Review C 10/16/18 15:00 CSF Glucose 73 mg/dL 10/16/18 15:00 CSF Total Protein 55 mg/dL 10/16/18 15:00 CSF VDRL Nonreactive (Nonreactive) 10/16/18 15:00 Random Vancomycin 21.1 ug/mL (0-40.0) 11/20/18 06:15 Immunofix Electrophor see below 10/11/18 17:36 RENO Screen Negative (Negative) 10/21/18 15:07 Proteinase 3 (PR3) Ab <1.0 AI (<1.0) 10/21/18 15:07 Myeloperoxidase Ab <1.0 AI (<1.0) 10/21/18 15:07 Heparin-induced Plt Ab Negative (Negative) 10/25/18 05:59 UF Heparin High Dose 0 % Release 10/25/18 05:59 VJ UFH Low Dose 0.1 0 % Release 10/25/18 05:59 VJ UFH Low Dose 0.5 14 % Release 10/25/18 05:59 Lymph Enumerat CD4/CD8 0.01 (0.86-5.00) L 11/28/18 06:46 % CD3 Cells 71 % (57-85) 11/28/18 06:46 Absolute CD3 Count 370 cells/uL (840-3060) L 11/28/18 06:46 % CD4 Cells 1 % (30-61) L 11/28/18 06:46 Absolute CD4 Count 6 cells/uL (490-1740) L 11/28/18 06:46 % CD8 Cells 67 % (12-42) H 11/28/18 06:46 Absolute CD8 Count 352 cells/uL (180-1170) 11/28/18 06:46 % CD19 Cells 4 % (6-29) L 11/28/18 06:46 Absolute CD19 Count 23 cells/uL (110-660) L 11/28/18 06:46 RPR Titer 1:32 10/11/18 17:37 RPR Reactive (Nonreactive) 10/11/18 17:37 T.pallidum Ab (FTA-ABS) Reactive (Nonreactive) 10/12/18 Unknown CMV DNA PCR log copper 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/mL See scanned result 10/24/18 17:47 Hepatitis A IgM Ab Non-reactive (NonReactive) 11/21/18 09:58 Hep Bs Antigen Non-reactive (Negative) 11/21/18 09:58 Hep B Core IgM Ab Non-reactive (NonReactive) 11/21/18 09:58 Hepatitis C Antibody Non-reactive (NonReactive) 11/21/18 09:58 HIV-1 RNA PCR copies/ml 47 Copies/mL H 11/28/18 06:46 HIV-1 RNA (PCR) log 1.67 Log cps/mL H 11/28/18 06:46 HIV-1 Genotyping See scanned results 10/29/18 19:48 Toxoplasma IgG Ab <7.20 IU/mL (<7.20) 10/13/18 07:54 Miscellaneous Test Flexitest 1 10/31/18 06:43 Blood Type A POSITIVE 11/08/18 11:28 Antibody Screen Negative 11/08/18 11:28 Crossmatch See Detail 11/08/18 11:28 Active Medications - Current Medications Current Medications: Generic Name Dose Route Start Last Admin Trade Name Freq PRN Reason Stop Dose Admin Acetaminophen 500 mg 10/16/18 10:02 11/26/18 20:30 Tylenol PO 500 mg Q6H PRN Administration Fever >101 Albumin Human 25 gm 11/04/18 16:14 Alburx 25% (Albumin) IV CHON PRN Hypotension Albuterol 2.5 mg 11/21/18 07:24 Proventil IH Q4HRT PRN Shortness Of Breath Lipase/Protease/Amylase 1 each 10/11/18 12:[address] 10,500 Unit FEEDTUBE PRN PRN For Clogged Feeding Tube Atovaquone 1,500 mg 11/14/18 10:00 12/01/18 10:15 Mepron PO 1,500 mg QDAY RUBI Administration Darunavir 800 mg 10/30/18 18:00 12/01/18 10:17 Prezista PO 800 mg QDAY RUBI Administration Emtricitabine 200 mg 11/01/18 10:00 12/01/18 10:16 Emtriva PO 200 mg Q48HR RUBI Administration Epoetin Dany 20,000 unit 11/12/18 15:00 11/28/18 15:52 Procrit IV 20,000 unit .MWF RUBI Administration Heparin Sodium (Porcine) 5,000 unit 11/04/18 16:15 11/28/18 18:22 Heparin IV 5,000 unit CHON PRN Administration hemodialysis Heparin Sodium (Porcine) 5,000 unit 11/07/18 22:00 12/01/18 06:09 Heparin SUB-Q 5,000 unit Q8HR RUBI Administration Hydrophilic Ointment 1 applic 10/10/18 17:53 Vaseline Lip Therapy TP Q2HR PRN Dry Lips Sodium Chloride 100 mls @ 999 mls/hr 11/12/18 09:51 Nacl 0.9% IV CHON PRN Hypotension Ipratropium [place] 0.5 mg 11/20/18 22:07 Atrovent IH Q4HRT PRN Shortness Of Breath Lansoprazole 30 mg 10/15/18 10:00 12/01/18 10:15 Prevacid Solutab FEEDTUBE 30 mg BID RUBI Administration Metoprolol Tartrate 5 mg 10/18/18 14:05 11/21/18 21:32 Lopressor IV 5 mg Q6HR PRN Administration Tachyarrhythmias Metoprolol Tartrate 25 mg 11/24/18 13:00 12/01/18 06:09 Lopressor PO 25 mg Q6HR RUBI Administration Multi-Ingred Cream/Lotion/Oil/Oint 1 applic 10/10/18 17:53 Artificial Tears Ophth Oint OU Q4HR PRN Dry Eye(s) Multivitamins 1 each 10/11/18 10:00 12/01/18 10:15 Theragran Tab PO 1 each DAILY RUBI Administration Ondansetron HCl 4 mg 11/12/18 15:05 Zofran IV Q8H PRN N/V unrelieved by Buddy Faye Hydrophilic Mucilloid 1 each 11/08/18 18:00 12/01/18 10:16 Metamucil PO 1 each QDAY RUBI Administration Ritonavir 100 mg 10/30/18 18:00 12/01/18 10:16 Norvir PO 100 mg QDAY RUBI Administration Sertraline HCl 50 mg 11/21/18 19:52 12/01/18 10:17 Zoloft PO 50 mg QDAY RUBI Administration Simple Syrup 15 ml 10/11/18 12:58 Simple Syrup FEEDTUBE PRN PRN Hypoglycemia Simple Syrup 30 ml 10/11/18 12:58 Simple Syrup FEEDTUBE PRN PRN Hypoglycemia Sodium Bicarbonate 325 mg 10/11/18 12:58 Sodium Bicarbonate FEEDTUBE PRN PRN For Clogged Feeding Tube Sodium Chloride 10 ml 10/10/18 22:00 12/01/18 10:17 Sodium Chloride Flush Syringe 10 Ml IV 10 ml BID RUBI Administration Sodium Chloride 10 ml 10/10/18 18:12 Sodium Chloride Flush Syringe 10 Ml IV PRN PRN LINE FLUSH Tenofovir Disoproxil Fumarate 300 mg 10/30/18 17:45 11/27/18 18:27 Viread PO 300 mg Q96H RUBI Administration Nutrition/Malnutrition Assess - Dietary Evaluation Nutrition/Malnutrition Findings: Nutrition Notes Start: 10/11/18 11:14 Freq: Status: Active Protocol: Document 11/26/18 14:28 RM (Rec: 11/26/18 14:34 RM [email or web address]) Nutrition Notes Initial or Follow up Reassessment Current Diagnosis Acute Kidney Injury,CKD(stage I-IV),Hypertension,Heart Failure,Stroke Other Pertinent Diagnosis Depression,Dysphagia,on HD, Acute encephalopathy,HIV/AIDS, Syphilis Current Diet Pureed Labs/Tests Reviewed Pertinent Medications Reviewed Height 5 ft 9 in Weight 51 kg [place] Body Weight (kg) 72.72 BMI 16.6 Subjective/Other Information Pt confused at time of visit. Pt tech stated that pt eats 25 % of his meals. Unsure of whether pt has had any Nepro. Percent of energy/protein needs met: 43%/66% Burn Absent Trauma Absent #2 Nutrition Diagnosis Malnutrition Diagnosis Progress(for reassessment Continues documentation) #1 Nutrition Diagnosis Inadequate oral intake Diagnosis Progress(for reassessment Continues documentation) Is patient on ventilator? No Is Patient Ambulatory and/or Out of Bed No REE-([facility]-confined to bed) 1683.876 Kcal/Kg value to use for calculation 40 Approximate Energy Requirements Using 0 kcal/Kg Calculation Used for Recommendations Kcal/kg Additional Notes Pro needs 1.2-1.5g/k-72g/ day Fluid needs 1ml/kcal Nutrition Intervention Change Diet Order: Pureed diet Add Supplement/Snack (indicate name/kcal Nepro 1 daily /protein ) Provides kCal: 425 Provides Protein (gm) 19 Goal #1 Meet at least 75% of calorie and protein needs via PO and ONS intakes Anticipated Discharge Needs: Pureed, Renal diet Follow-Up By: 12/05/18 Additional Comments Follow for PO and ONS intakes
[2018-12-01] MEDS: VIREAD PO SCH (19:36)
[2018-12-02] MEDS: LOPRESSOR IV PRN (05:47)
[2018-12-02] MEDS: HEPARIN SUB-Q SCH ×3 (06:17→21:49)
[2018-12-02] MEDS: LOPRESSOR PO SCH ×4 (06:58→17:38)
--- NOTE | 2018-12-02 08:37 | Progress Note ---
Assessment and Plan Assessment and plan: Acute encephalopathy multifactorial ?from hypertensive urgency +/- brain opportunistic infection. DDx: Neurosyphilis, VZV/CMV encephalitis versus YARD SWITCH OPERATOR lymphoma versus less likely PML v/s ischemic CVA (seems more likely) improving - CT head showed bilateral chronic ischemic changes. - Brain MRI showed areas of edema in the basal ganglia and thalami bilaterally, within the jamari and in the cerebral hemispheres bilaterally in the subcortical and deep white matter and in portions of the cortex, areas of encephalomalacia in the basal ganglia bilaterally with evidence of previous hemorrhage or mineral deposition and numerous small foci of acute infarct in the basal ganglia bilaterally, subinsular regions bilaterally and medial temporal lobes bilaterally and possibly in the occipital cortex bilaterally. - Brain MRA showed possible dissection versus artifact at the basilar artery. Luminal irregularity at the anterior, middle, and posterior cerebral arteries as well as the carotid siphons may represent mild to moderate atherosclerotic disease. More notable narrowing at the distal right A1 segment. Differential diagnosis includes motion artifact and vasculitis. Vertebral arteries are not clearly visualized. - CSF wbc 4, rbc 113, Seg 8%, Lymph 76%, protein 55, glucose 73 which is not c/w meningitis - RPR reactive 1:32 / FTA ABs reactive, treated with penicillin and ceftriaxone but CSF VDRL Non reactive. - Toxoplasma IgG negative, CSF Toxoplasma PCR: negative - Blood CMV DNA VL=1,370, 3.1 log on ganciclovir - likely reactivation - Repeat CMV DNA PCR 10/24/2018: <200. Off ganciclovir. - Glucan Assay: negative Consulted Neurology, he was evaluated by DR. Valentine. mentation is improved, and this is likely his new baseline Dysphagia/ moderate malnutrition -[facility] 10/23, recommended pureed with nectar thickened liquids, continue this diet -herb counselor consulted Anemia/thrombocytopenia, leukocytosis, coagulopathy; now resolved -Status post platelet (3 units) and prbc (6 units ) transfusion, the patient had only few schistocytes on smear, ADAMS13 91% activity plt count has recovered HIV/AIDS, CD4 count 3, HIV viral load 320,000 Sepsis acute bacterial PNA, CMV viremia toxo neg, CSF neg ,Whole blood cmv PCR was positive at 1374 abx and anti- antiviral per ID,continues to have fever on and off chest CT :Patchy airspace disease in the right lower lobe compatible with pneumonia. No evidence of pleural effusion. -repeat CXR : clear lungs and normal bony and soft tissue structures. Patchy airspace disease in the right lower lobe has resolved since 11/07/18 Continues on atovaquone as prophylaxis. Patient has sulfa allergy. Oral candidiasis, nystatin swish and spit ordered x 7 days SHRUTHI/ATN now ESRD Continue hemodialysis per nephrology. Hyperkalemia, resolved Severe protein calorie malnutrition -dietitican consult Acute hypoxic resp failure on MV> 96 hours self extubated 10/16, continue supplemental oxygen prn CTA neg for PE on 11/06 Acute on chronic systolic CHF He was treated with Cardene drip which was weaned off. Optimize medications for CHF on coreg, no mik due to high K, fluid removal by dialysis Stage 2 sacral wound decub, and bilat buttock wounds left buttocks area. The wound is measured at 9.0x2.5. 25% slough noticed to the wound sacral area. The wound is measured at 3.5x3.5.80% necrotic tissue noticed to the wound right buttocks area. The wound is measured at 5.0x3.0. no evidence of infection, but wounds are necrotic, cont wound care Depression MH input appreciated, he is improving Severe debility; he was previously refusing PT and not participating. He agrees to be more complaints of physical therapy. he is now participating with PT, contractures are improving DVT ppx- heparin sq Disposition: Physical therapy reports high fall risk and the need for maximal assist. I asked the patient about help at home particularly pertaining to his partner as informed to me by case management. However, patient was extremely evasive and did not answer my questions. He did give me a number for his mother at [phone]. He stated that she will be coming down to take care of him from [place]. I will attempt to discuss with mother discharge planning. I called the number listed and left a message. History Interval history: Patient is 43 YO Male with HIV, hypertension, previous stroke, Nicotine Dependence, presents to ED for evaluation. Patient was confused and lethargic and unable to provide history. He was seen and evaluated in ED and found to be in distress and unable to protect his airway and was therefore intubated, placed on ventilator and admitted to ICU. Patient diagnosed with acute resp failure, renal failure(acute vs acute on chronic) , Encephalopathy, Acidosis. He is followed by ID Physician for HIV/AIDS. His renal failure worsened therefore started on hemodialysis for SHRUTHI due to ATN, now ESRD. He has had a prolonged course, diagnosed with acute resp failure, sepsis , toxic metabolic encephalopathy. He is on HAART. Physical therapy reports high fall risk and the need for maximal assist. I asked the patient about help at home particularly pertaining to his partner is informed to me by case management. However, patient was extremely evasive and did not answer my questions. He did give me a number for his mother at [phone]. He stated that she will be coming down to take care of him from [place]. Hospitalist Physical - Constitutional Vitals: Temp Pulse Resp BP Pulse Ox 98.7 F 127 H 20 126/89 100 12/02/18 05:20 12/02/18 05:47 12/02/18 05:20 12/02/18 06:58 12/02/18 05:20 General appearance: Present: no acute distress, cachectic - EENT Eyes: Present: PERRL, EOM intact ENT: hearing intact, clear oral mucosa, dentition normal - Neck Neck: Present: supple, normal ROM - Respiratory Respiratory effort: normal Respiratory: bilateral: CTA - Cardiovascular Rhythm: regular Heart Sounds: Present: S1 & S2. Absent: gallop, rub - Extremities Extremities: no ischemia, No edema, Full ROM - Abdominal General gastrointestinal: soft, non-tender, non-distended, normal bowel sounds - Integumentary Integumentary: Present: clear, warm, dry - Neurologic Neurologic: CNII-XII intact, moves all extremities Results - Labs CBC & Chem 7: 11/29/18 05:15 11/29/18 05:15 Labs: Laboratory Last Values WBC 7.0 K/mm3 (4.5-11.0) 11/29/18 05:15 RBC 2.70 M/mm3 (3.65-5.03) L 11/29/18 05:15 Hgb 7.7 gm/dl (11.8-15.2) L 11/29/18 05:15 Hct 24.6 % (35.5-45.6) L 11/29/18 05:15 MCV 91 fl (84-94) 11/29/18 05:15 MCH 29 pg (28-32) 11/29/18 05:15 MCHC 31 % (32-34) L 11/29/18 05:15 RDW 21.3 % (13.2-15.2) H 11/29/18 05:15 Plt Count 223 K/mm3 (140-440) 11/29/18 05:15 Lymph % (Auto) Surgical Coder 11/24/18 00:09 [place] % (Auto) Surgical Coder 11/24/18 00:09 Eos % (Auto) Surgical Coder 11/24/18 00:09 Baso % (Auto) Surgical Coder 11/24/18 00:09 Lymph # Surgical Coder 11/24/18 00:09 [place] # Surgical Coder 11/24/18 00:09 Eos # Surgical Coder 11/24/18 00:09 Baso # Surgical Coder 11/24/18 00:09 Add Manual Diff Complete 11/29/18 05:15 Total Counted 100 11/29/18 05:15 Seg Neutrophils % Surgical Coder 11/24/18 00:09 Seg Neuts % (Manual) 87.0 % (40.0-70.0) H 11/29/18 05:15 Band Neutrophils % 0 % 11/29/18 05:15 Lymphocytes % (Manual) 3.0 % (13.4-35.0) L 11/29/18 05:15 Reactive Lymphs % (Man) 2.0 % 11/29/18 05:15 Monocytes % (Manual) 4.0 % (0.0-7.3) 11/29/18 05:15 Eosinophils % (Manual) 1.0 % (0.0-4.3) 11/29/18 05:15 Basophils % (Manual) 2.0 % (0.0-1.8) H 11/29/18 05:15 Metamyelocytes % 1.0 % 11/29/18 05:15 Myelocytes % 0 % 11/29/18 05:15 Promyelocytes % 0 % 11/29/18 05:15 Blast Cells % 0 % 11/29/18 05:15 Nucleated RBC % 1.0 % (0.0-0.9) H 11/29/18 05:15 Seg Neutrophils # Surgical Coder 11/24/18 00:09 Seg Neutrophils # Man 6.1 K/mm3 (1.8-7.7) 11/29/18 05:15 Band Neutrophils # 0.0 K/mm3 11/29/18 05:15 Abs Lymphs (Manual) 519 cells/uL (850-3900) L 11/28/18 06:46 Lymphocytes # (Manual) 0.2 K/mm3 (1.2-5.4) L 11/29/18 05:15 Abs React Lymphs (Man) 0.1 K/mm3 11/29/18 05:15 Monocytes # (Manual) 0.3 K/mm3 (0.0-0.8) 11/29/18 05:15 Eosinophils # (Manual) 0.1 K/mm3 (0.0-0.4) 11/29/18 05:15 Basophils # (Manual) 0.1 K/mm3 (0.0-0.1) 11/29/18 05:15 Metamyelocytes # 0.1 K/mm3 11/29/18 05:15 Myelocytes # 0.0 K/mm3 11/29/18 05:15 Promyelocytes # 0.0 K/mm3 11/29/18 05:15 Blast Cells # 0.0 K/mm3 11/29/18 05:15 Pathologist Review 10/15/18 03:14 WBC Morphology Not Reportable 11/29/18 05:15 Hypersegmented Neuts Not Reportable 11/29/18 05:15 Hyposegmented Neuts Not Reportable 11/29/18 05:15 Hypogranular Neuts Not Reportable 11/29/18 05:15 Smudge Cells Not Reportable 11/29/18 05:15 Toxic Granulation Not Reportable 11/29/18 05:15 Toxic Vacuolation Not Reportable 11/29/18 05:15 Dohle Bodies Not Reportable 11/29/18 05:15 Pelger-Huet Anomaly Not Reportable 11/29/18 05:15 Kartik Rods Not Reportable 11/29/18 05:15 Platelet Estimate Consistent w auto 11/29/18 05:15 Clumped Platelets Not Reportable 11/29/18 05:15 Plt Clumps, EDTA Not Reportable 11/29/18 05:15 Large Platelets 1+ 11/29/18 05:15 Giant Platelets Not Reportable 11/29/18 05:15 Platelet Satelliting Not Reportable 11/29/18 05:15 Plt Morphology Comment Not Reportable 11/29/18 05:15 RBC Morphology Not Reportable 11/29/18 05:15 Dimorphic RBCs Not Reportable 11/29/18 05:15 Polychromasia Not Reportable 11/29/18 05:15 Hypochromasia Not Reportable 11/29/18 05:15 Poikilocytosis 1+ 11/29/18 05:15 Anisocytosis 1+ 11/29/18 05:15 Microcytosis Not Reportable 11/29/18 05:15 Macrocytosis 1+ 11/29/18 05:15 Spherocytes Not Reportable 11/29/18 05:15 Pappenheimer Bodies Not Reportable 11/29/18 05:15 Sickle Cells Not Reportable 11/29/18 05:15 Target Cells Not Reportable 11/29/18 05:15 Tear Drop Cells Not Reportable 11/29/18 05:15 Ovalocytes Few 11/29/18 05:15 Stomatocytes Few 11/10/18 06:54 Helmet Cells Not Reportable 11/29/18 05:15 [place] Bodies Not Reportable 11/29/18 05:15 [place] Rings Not Reportable 11/29/18 05:15 [place] Cells Not Reportable 11/29/18 05:15 Bite Cells Not Reportable 11/29/18 05:15 Crenated Cell Not Reportable 11/29/18 05:15 Elliptocytes 1+ 11/29/18 05:15 Acanthocytes (Spur) Not Reportable 11/29/18 05:15 Rouleaux Not Reportable 11/29/18 05:15 Hemoglobin C Crystals Not Reportable 11/29/18 05:15 Schistocytes Not Reportable 11/29/18 05:15 Malaria parasites Not Reportable 11/29/18 05:15 Jv Bodies Not Reportable 11/29/18 05:15 Hem Pathologist Commnt No 11/29/18 05:15 PT 17.7 Sec. (12.2-14.9) H 11/06/18 13:18 INR 1.36 (0.87-1.13) H 11/06/18 13:18 APTT 30.6 Sec. (24.2-36.6) 11/06/18 13:18 Thrombin Time 16.9 Sec. (15.1-19.6) 10/10/18 15:02 Heparin Anti-Xa Level < 0.10 U.I./ml (0.3-0.7) L 11/07/18 21:31 Heparin Anti-Xa, Unfract Negative (Negative) 10/25/18 05:59 POC ABG pH 7.455 (7.35-7.45) H 11/23/18 13:46 POC ABG pCO2 32.0 (35-45) L 10/21/18 09:49 POC ABG pO2 111 (80-105) H 11/23/18 13:46 POC ABG HCO3 17.3 (22-26 mml/L) 11/23/18 13:46 POC ABG Total CO2 18 (23-27mmol/L) 11/23/18 13:46 POC ABG O2 Sat 99 11/23/18 13:46 POC ABG Base Excess -7 ((-2) - (+3)mmol/L) 11/23/18 13:46 FiO2 21 % 11/23/18 13:46 Sodium 137 mmol/L (137-145) 11/29/18 05:15 Potassium 3.3 mmol/L (3.6-5.0) L 11/29/18 05:15 Chloride 93.7 mmol/L (98-107) L 11/29/18 05:15 Carbon Dioxide 27 mmol/L (22-30) 11/29/18 05:15 Anion Gap 20 mmol/L 11/29/18 05:15 BUN 14 mg/dL (9-20) 11/29/18 05:15 Creatinine 3.4 mg/dL (0.8-1.5) H 11/29/18 05:15 Estimated GFR 24 ml/min 11/29/18 05:15 BUN/Creatinine Ratio 4 % 11/29/18 05:15 Glucose 115 mg/dL (75-100) H 11/29/18 05:15 POC Glucose 110 (70-105) H 11/23/18 13:35 Osmolality 338 Mosm/kg 10/11/18 17:35 Lactic Acid 1.80 mmol/L (0.7-2.0) 10/12/18 05:59 Uric Acid 13.4 mg/dL (3.5-7.6) H 10/11/18 17:36 Calcium 8.7 mg/dL (8.4-10.2) 11/29/18 05:15 Phosphorus 6.50 mg/dL (2.5-4.5) H 11/24/18 10:53 Magnesium 3.10 mg/dL (1.7-2.3) H 10/18/18 05:03 Iron 147 ug/dL (49-181) 10/11/18 17:36 TIBC 236 mcg/dL (250-450) L 10/11/18 17:36 Ferritin 77434.0 ng/mL (13.0-400.0) H 10/11/18 17:35 Total Bilirubin 0.30 mg/dL (0.1-1.2) 11/19/18 05:31 Direct Bilirubin 0.2 mg/dL (0-0.2) 10/16/18 04:07 Indirect Bilirubin 0.3 mg/dL 10/16/18 04:07 AST 26 units/L (5-40) 11/19/18 05:31 ALT 11 units/L (7-56) 11/19/18 05:31 Alkaline Phosphatase 74 units/L (35-129) 11/19/18 05:31 Ammonia 25.0 umol/L (25-60) 10/17/18 14:59 Lactate Dehydrogenase 925 units/L (91-180) H 10/22/18 05:51 Troponin T 0.357 ng/mL (0.00-0.029) H* 11/06/18 05:54 NT-Pro-B Natriuret Pep 09980 pg/mL (0-450) H 10/10/18 15:42 Total Protein 7.6 g/dL (6.3-8.2) 11/19/18 05:31 Albumin 2.6 g/dL (3.9-5) L 11/19/18 05:31 Albumin/Globulin Ratio 0.5 % 11/19/18 05:31 Triglycerides 306 mg/dL (2-149) H 11/05/18 11:29 Cholesterol 145 mg/dL (50-199) 11/05/18 11:29 LDL Cholesterol Direct 89 mg/dL (50-130) 11/05/18 11:29 HDL Cholesterol 25 mg/dL (40-59) L 11/05/18 11:29 Cholesterol/HDL Ratio 5.80 % 11/05/18 11:29 Serotonin Release Assay See scanned result 10/25/18 05:59 Vitamin B12 912.3 pg/mL (211-911) H 10/14/18 08:51 Folate 8.32 ng/mL (7.3-26.0) 10/14/18 08:51 PTH Intact 118.0 pg/mL (15-65) H 11/24/18 10:53 Urine Creatinine 30.8 mg/dL (0.1-20.0) H 10/13/18 04:43 Urine Sodium 106 mmol/L 10/13/18 04:43 Urine Total Protein 75 mg/dL (5-11.8) H 10/13/18 04:43 CSF Appearance Clear 10/16/18 15:00 CSF Color Colorless 10/16/18 15:00 CSF WBC 4 /mm3 (1-10) 10/16/18 15:00 CSF RBC 113 /mm3 (0-0) 10/16/18 15:00 CSF Seg Neutrophils 8.0 % (0-6) 10/16/18 15:00 CSF Lymphocytes % 76.0 % (40-80) 10/16/18 15:00 CSF Reactive Lymphs 2.0 % 10/16/18 15:00 CSF Monocytes % 14.0 % (15-45) 10/16/18 15:00 CSF Eosinophils % 0 % 10/16/18 15:00 CSF Basophils 0 % 10/16/18 15:00 CSF Pathologist Review C 10/16/18 15:00 CSF Glucose 73 mg/dL 10/16/18 15:00 CSF Total Protein 55 mg/dL 10/16/18 15:00 CSF VDRL Nonreactive (Nonreactive) 10/16/18 15:00 Random Vancomycin 21.1 ug/mL (0-40.0) 11/20/18 06:15 Immunofix Electrophor see below 10/11/18 17:36 RENO Screen Negative (Negative) 10/21/18 15:07 Proteinase 3 (PR3) Ab <1.0 AI (<1.0) 10/21/18 15:07 Myeloperoxidase Ab <1.0 AI (<1.0) 10/21/18 15:07 Heparin-induced Plt Ab Negative (Negative) 10/25/18 05:59 UF Heparin High Dose 0 % Release 10/25/18 05:59 VJ UFH Low Dose 0.1 0 % Release 10/25/18 05:59 VJ UFH Low Dose 0.5 14 % Release 10/25/18 05:59 Lymph Enumerat CD4/CD8 0.01 (0.86-5.00) L 11/28/18 06:46 % CD3 Cells 71 % (57-85) 11/28/18 06:46 Absolute CD3 Count 370 cells/uL (840-3060) L 11/28/18 06:46 % CD4 Cells 1 % (30-61) L 11/28/18 06:46 Absolute CD4 Count 6 cells/uL (490-1740) L 11/28/18 06:46 % CD8 Cells 67 % (12-42) H 11/28/18 06:46 Absolute CD8 Count 352 cells/uL (180-1170) 11/28/18 06:46 % CD19 Cells 4 % (6-29) L 11/28/18 06:46 Absolute CD19 Count 23 cells/uL (110-660) L 11/28/18 06:46 RPR Titer 1:32 10/11/18 17:37 RPR Reactive (Nonreactive) 10/11/18 17:37 T.pallidum Ab (FTA-ABS) Reactive (Nonreactive) 10/12/18 Unknown CMV DNA PCR log nuclear spectroscopist/mL See scanned result 10/24/18 17:47 Hepatitis A IgM Ab Non-reactive (NonReactive) 11/21/18 09:58 Hep Bs Antigen Non-reactive (Negative) 11/21/18 09:58 Hep B Core IgM Ab Non-reactive (NonReactive) 11/21/18 09:58 Hepatitis C Antibody Non-reactive (NonReactive) 11/21/18 09:58 HIV-1 RNA PCR copies/ml 47 Copies/mL H 11/28/18 06:46 HIV-1 RNA (PCR) log 1.67 Log cps/mL H 11/28/18 06:46 HIV-1 Genotyping See scanned results 10/29/18 19:48 Toxoplasma IgG Ab <7.20 IU/mL (<7.20) 10/13/18 07:54 Miscellaneous Test Flexitest 1 10/31/18 06:43 Blood Type A POSITIVE 11/08/18 11:28 Antibody Screen Negative 11/08/18 11:28 Crossmatch See Detail 11/08/18 11:28 Active Medications - Current Medications Current Medications: Generic Name Dose Route Start Last Admin Trade Name Freq PRN Reason Stop Dose Admin Acetaminophen 500 mg 10/16/18 10:02 11/26/18 20:30 Tylenol PO 500 mg Q6H PRN Administration Fever >101 Albumin Human 25 gm 11/04/18 16:14 Alburx 25% (Albumin) IV CHON PRN Hypotension Albuterol 2.5 mg 11/21/18 07:24 Proventil IH Q4HRT PRN Shortness Of Breath Lipase/Protease/Amylase 1 each 10/11/18 12:[address] 10,500 Unit FEEDTUBE PRN PRN For Clogged Feeding Tube Atovaquone 1,500 mg 11/14/18 10:00 12/01/18 10:15 Mepron PO 1,500 mg QDAY RUBI Administration Darunavir 800 mg 10/30/18 18:00 12/01/18 10:17 Prezista PO 800 mg QDAY RUBI Administration Emtricitabine 200 mg 11/01/18 10:00 12/01/18 10:16 Emtriva PO 200 mg Q48HR RUBI Administration Epoetin [place] 20,000 unit 11/12/18 15:00 11/28/18 15:52 Procrit IV 20,000 unit .MWF RUBI Administration Heparin Sodium (Porcine) 5,000 unit 11/04/18 16:15 11/28/18 18:22 Heparin IV 5,000 unit CHON PRN Administration hemodialysis Heparin Sodium (Porcine) 5,000 unit 11/07/18 22:00 12/02/18 06:17 Heparin SUB-Q 5,000 unit Q8HR RUBI Administration Hydrophilic Ointment 1 applic 10/10/18 17:53 Vaseline Lip Therapy TP Q2HR PRN Dry Lips Sodium Chloride 100 mls @ 999 mls/hr 11/12/18 09:51 Nacl 0.9% IV CHON PRN Hypotension Ipratropium [place] 0.5 mg 11/20/18 22:07 Atrovent IH Q4HRT PRN Shortness Of Breath Lansoprazole 30 mg 10/15/18 10:00 12/01/18 21:32 Prevacid Solutab FEEDTUBE 30 mg BID RUBI Administration Metoprolol Tartrate 5 mg 10/18/18 14:05 12/02/18 05:47 Lopressor IV 5 mg Q6HR PRN Administration Tachyarrhythmias Metoprolol Tartrate 25 mg 11/24/18 13:00 12/02/18 06:58 Lopressor PO Not Given Q6HR RUBI Multi-Ingred Cream/Lotion/Oil/Oint 1 applic 10/10/18 17:53 Artificial Tears Ophth Oint OU Q4HR PRN Dry Eye(s) Multivitamins 1 each 10/11/18 10:00 12/01/18 10:15 Theragran Tab PO 1 each DAILY RUBI Administration Ondansetron HCl 4 mg 11/12/18 15:05 Zofran IV Q8H PRN N/V unrelieved by Buddy Faye Hydrophilic Mucilloid 1 each 11/08/18 18:00 12/01/18 10:16 Metamucil PO 1 each QDAY URBI Administration Ritonavir 100 mg 10/30/18 18:00 12/01/18 10:16 Norvir PO 100 mg QDAY RUBI Administration Sertraline HCl 50 mg 11/21/18 19:52 12/01/18 10:17 Zoloft PO 50 mg QDAY RUBI Administration Simple Syrup 15 ml 10/11/18 12:58 Simple Syrup FEEDTUBE PRN PRN Hypoglycemia Simple Syrup 30 ml 10/11/18 12:58 Simple Syrup FEEDTUBE PRN PRN Hypoglycemia Sodium Bicarbonate 325 mg 10/11/18 12:58 Sodium Bicarbonate FEEDTUBE PRN PRN For Clogged Feeding Tube Sodium Chloride 10 ml 10/10/18 22:00 12/01/18 21:32 Sodium Chloride Flush Syringe 10 Ml IV 10 ml BID RUBI Administration Sodium Chloride 10 ml 10/10/18 18:12 Sodium Chloride Flush Syringe 10 Ml IV PRN PRN LINE FLUSH Tenofovir Disoproxil Fumarate 300 mg 10/30/18 17:45 12/01/18 19:36 Viread PO 300 mg Q96H RUBI Administration Nutrition/Malnutrition Assess - Dietary Evaluation Nutrition/Malnutrition Findings: Nutrition Notes Start: 10/11/18 11:14 Freq: Status: Active Protocol: Document 11/26/18 14:28 RM (Rec: 11/26/18 14:34 [email or web address]) Nutrition Notes Initial or Follow up Reassessment Current Diagnosis Acute Kidney Injury,CKD(stage I-IV),Hypertension,Heart Failure,Stroke Other Pertinent Diagnosis Depression,Dysphagia,on HD, Acute encephalopathy,HIV/AIDS, Syphilis Current Diet Pureed Labs/Tests Reviewed Pertinent Medications Reviewed Height 5 ft 9 in Weight 51 kg [place] Body Weight (kg) 72.72 BMI 16.6 Subjective/Other Information Pt confused at time of visit. Pt tech stated that pt eats 25 % of his meals. Unsure of whether pt has had any Nepro. Percent of energy/protein needs met: 43%/66% Burn Absent Trauma Absent #2 Nutrition Diagnosis Malnutrition Diagnosis Progress(for reassessment Continues documentation) #1 Nutrition Diagnosis Inadequate oral intake Diagnosis Progress(for reassessment Continues documentation) Is patient on ventilator? No Is Patient Ambulatory and/or Out of Bed No REE-([place]-confined to bed) [phone] Kcal/Kg value to use for calculation 40 Approximate Energy Requirements Using 0 kcal/Kg Calculation Used for Recommendations Kcal/kg Additional Notes Pro needs 1.2-1.5g/k-72g/ day Fluid needs 1ml/kcal Nutrition Intervention Change Diet Order: Pureed diet Add Supplement/Snack (indicate name/kcal Nepro 1 daily /protein ) Provides kCal: 425 Provides Protein (gm) 19 Goal #1 Meet at least 75% of calorie and protein needs via PO and ONS intakes Anticipated Discharge Needs: Pureed, Renal diet Follow-Up By: 12/05/18 Additional Comments Follow for PO and ONS intakes
[2018-12-02] MEDS: MEPRON PO SCH (11:19)
[2018-12-02] MEDS: THERAGRAN Tab PO SCH (11:19)
[2018-12-02] MEDS: NORVIR PO SCH (11:20)
[2018-12-02] MEDS: ZOLOFT PO SCH (11:20)
[2018-12-02] MEDS: PREVACID SOLUTAB FEEDTUBE SCH ×2 (11:21→21:51)
[2018-12-02] MEDS: PREZISTA PO SCH (11:22)
[2018-12-02] MEDS: SODIUM CHLORIDE FLUSH SYRINGE 10 ML IV SCH ×2 (11:24→21:52)
[2018-12-02] MEDS: METAMUCIL PO SCH (11:29)
[2018-12-02] MEDS: TIVICAY PO SCH (11:30)
--- NOTE | 2018-12-02 14:00 | Progress Note ---
Assessment and Plan Assessment: * ESRD --Permcath insertion 11/23 * HIV/AIDS * Acute encephalopathy * Acute hypoxic respiratory failure s/p mechanical ventilation * Hx of urinary retention * Anemia * Hyperkalemia - resolved * Decubitus ulcer s/p debridement Plan: * Continue HD qMWF schedule * UF as tolerated * ID following * Surgery recommendations noted * Epogen TIW prn * Continue antiHTN medications * Note PT recommendation for SHANDRA * Outpatient HD clinic placement in progress * PT notes reviewed; patient is not ambulatory, "max assistance, max fall risk" Subjective Date of service: 12/02/18 Principal diagnosis: anemia - HIV Interval history: resting well in bed today Objective - Exam Narrative Exam: HEENT: Oral mucosa moist no pallor or icterus Neck: Supple no JVD Chest: Clear to auscultation anteriorly CVS: Regular rate and rhythm S1 and S2 heard Abdomen: Soft nontender no suprapubic masses no organomegaly appreciable Extremity: Dry skin less than 1+ peripheral edema Musculoskeletal: No joint effusion noted in knees and ankle Neurological: Alert awake Dermatology: No petechial rashes Psychiatry: No evidence of any agitation and aggression noted - Vital Signs Vital signs: Vital Signs - 12hr 12/02/18 12/02/18 12/02/18 05:20 05:47 06:56 Temperature 98.7 F Pulse Rate 127 H 127 H Respiratory 20 Rate Blood Pressure 151/108 151/108 126/89 O2 Sat by Pulse 100 Oximetry 12/02/18 12/02/18 12/02/18 06:58 11:21 11:45 Temperature 100.7 F H Pulse Rate 120 H 122 H Respiratory 16 Rate Blood Pressure 126/89 128/89 127/91 O2 Sat by Pulse 100 Oximetry - Lab 11/29/18 05:15 11/29/18 05:15 Most recent lab results Calcium 8.7 mg/dL (8.4-10.2) 11/29/18 05:15 Phosphorus 6.50 mg/dL (2.5-4.5) H 11/24/18 10:53 Magnesium 3.10 mg/dL (1.7-2.3) H 10/18/18 05:03 Urine Creatinine 30.8 mg/dL (0.1-20.0) H 10/13/18 04:43 Urine Sodium 106 mmol/L 10/13/18 04:43 Urine Total Protein 75 mg/dL (5-11.8) H 10/13/18 04:43 Medications & Allergies - Medications Allergies/Adverse Reactions: Allergies Sulfa (Sulfonamide Antibiotics) Allergy (Verified 10/10/18 16:54) Unknown Home Medications: Home Medications Medication Instructions Recorded Confirmed Last Taken Type Acetaminophen [Tylenol] 1,000 mg PO Q6HR 10/10/18 10/10/18 Unknown History Amlodipine Besylate [Norvasc] 10 mg PO QDAY 10/10/18 10/10/18 Unknown History Aspirin [Adult Aspirin] 81 mg PO DAILY 10/10/18 10/10/18 Unknown History Atorvastatin [Lipitor Tab] 80 mg PO DAILY 10/10/18 10/10/18 Unknown History Losartan [Cozaar] 100 mg PO QDAY 10/10/18 10/10/18 Unknown History Multivitamin [Multiple Vitamins] 1 each PO DAILY 10/10/18 10/10/18 Unknown History hydroCHLOROthiazide [HCTZ] 25 mg PO QDAY 10/10/18 10/10/18 Unknown History Active Medications: Generic Name Dose Route Start Last Admin Trade Name Freq PRN Reason Stop Dose Admin Acetaminophen 500 mg 10/16/18 10:02 11/26/18 20:30 Tylenol PO 500 mg Q6H PRN Administration Fever >101 Albumin Human 25 gm 11/04/18 16:14 Alburx 25% (Albumin) IV CHON PRN Hypotension Albuterol 2.5 mg 11/21/18 07:24 Proventil IH Q4HRT PRN Shortness Of Breath Lipase/Protease/Amylase 1 each 10/11/18 12:58 Pancreaze 10,500 Unit FEEDTUBE PRN PRN For Clogged Feeding Tube Atovaquone 1,500 mg 11/14/18 10:00 12/02/18 11:19 Mepron PO 1,500 mg QDAY RUBI Administration Darunavir 800 mg 10/30/18 18:00 12/02/18 11:22 Prezista PO 800 mg QDAY RUBI Administration Emtricitabine 200 mg 11/01/18 10:00 12/01/18 10:16 Emtriva PO 200 mg Q48HR RUBI Administration Epoetin [place] 20,000 unit 11/12/18 15:00 11/28/18 15:52 Procrit IV 20,000 unit .MWF RUBI Administration Heparin Sodium (Porcine) 5,000 unit 11/04/18 16:15 11/28/18 18:22 Heparin IV 5,000 unit CHON PRN Administration hemodialysis Heparin Sodium (Porcine) 5,000 unit 11/07/18 22:00 12/02/18 06:17 Heparin SUB-Q 5,000 unit Q8HR RUBI Administration Hydrophilic Ointment 1 applic 10/10/18 17:53 Vaseline Lip Therapy TP Q2HR PRN Dry Lips Sodium Chloride 100 mls @ 999 mls/hr 11/12/18 09:51 Nacl 0.9% IV CHON PRN Hypotension Ipratropium [place] 0.5 mg 11/20/18 22:07 Atrovent IH Q4HRT PRN Shortness Of Breath Lansoprazole 30 mg 10/15/18 10:00 12/02/18 11:21 Prevacid Solutab FEEDTUBE 30 mg BID RUBI Administration Metoprolol Tartrate 5 mg 10/18/18 14:05 12/02/18 05:47 Lopressor IV 5 mg Q6HR PRN Administration Tachyarrhythmias Metoprolol Tartrate 25 mg 11/24/18 13:00 12/02/18 11:21 Lopressor PO 25 mg Q6HR RUBI Administration Multi-Ingred Cream/Lotion/Oil/Oint 1 applic 10/10/18 17:53 Artificial Tears Ophth Oint OU Q4HR PRN Dry Eye(s) Multivitamins 1 each 10/11/18 10:00 12/02/18 11:19 Theragran Tab PO 1 each DAILY RUBI Administration Ondansetron HCl 4 mg 11/12/18 15:05 Zofran IV Q8H PRN N/V unrelieved by Buddy Faye Hydrophilic Mucilloid 1 each 11/08/18 18:00 12/02/18 11:29 Metamucil PO 1 each QDAY RUBI Administration Ritonavir 100 mg 10/30/18 18:00 12/02/18 11:20 Norvir PO 100 mg QDAY RUBI Administration Sertraline HCl 50 mg 11/21/18 19:52 12/02/18 11:20 Zoloft PO 50 mg QDAY RUBI Administration Simple Syrup 15 ml 10/11/18 12:58 Simple Syrup FEEDTUBE PRN PRN Hypoglycemia Simple Syrup 30 ml 10/11/18 12:58 Simple Syrup FEEDTUBE PRN PRN Hypoglycemia Sodium Bicarbonate 325 mg 10/11/18 12:58 Sodium Bicarbonate FEEDTUBE PRN PRN For Clogged Feeding Tube Sodium Chloride 10 ml 10/10/18 22:00 12/02/18 11:24 Sodium Chloride Flush Syringe 10 Ml IV Not Given BID RUBI Sodium Chloride 10 ml 10/10/18 18:12 Sodium Chloride Flush Syringe 10 Ml IV PRN PRN LINE FLUSH Tenofovir Disoproxil Fumarate 300 mg 10/30/18 17:45 12/01/18 19:36 Viread PO 300 mg Q96H RUBI Administration
[2018-12-02] MEDS: TYLENOL PO PRN (17:38)
[2018-12-03] MEDS: LOPRESSOR PO SCH ×4 (00:27→19:54)
[2018-12-03] MEDS: HEPARIN SUB-Q SCH ×3 (05:11→21:41)
--- NOTE | 2018-12-03 07:27 | Hem/Onc Progress Note ---
Assessment and Plan 1. Anemia. At admission, hemoglobin was 8.1, later low and s/p multiple Transfusion support. b12 - folate normal - high ferritin. 2. h/o Platelets at admission was 20. now resolved - HIT antibodies negative - no schistocytes as per path 3. White cell count was elevated. 4. PT/INR h/o slightly elevated. 5. Renal failure. nephrology following - Dialysis 6. ALT elevated. 7. The patient has multiple medical issues. 8. HIV - Id following 9 - pt was on vent and then extubated 10 -pt had NGT - later removed 11 - h/o skin changes - decubiti - rectal tube 12/03 - plt good anemia - CKD may have a role will follow pt - Patient Problems (1) Thrombocytopenia associated with AIDS Current Visit: Yes Status: Acute (2) Anemia Current Visit: Yes Status: Acute Qualifiers: Anemia type: due to chronic kidney disease Chronic kidney disease stage: unspecified stage Qualified Code(s): N18.9 - Chronic kidney disease, unspecified; D63.1 - Anemia in chronic kidney disease Subjective Date of service: 12/03/18 Principal diagnosis: anemia Interval history: no bleeding Objective - Constitutional Vitals: Last Vital Signs Temp 98.9 F 12/03/18 05:08 Pulse 111 H 12/03/18 05:11 Resp 20 12/03/18 05:08 BP 128/87 12/03/18 05:11 Pulse Ox 97 12/03/18 05:08 Pain Intensity (0-10): denies any pain General appearance: no acute distress Performance status: 4-completely disabled - EENT Eyes: EOM intact ENT: clear oral mucosa Lymph node exam: negative cervical - Neck Neck: normal ROM - Respiratory Respiratory effort: Positive: normal Respiratory: bilateral: CTA - Cardiovascular Heart Sounds: Present: S1 & S2 Extremities: No edema - Gastrointestinal General gastrointestinal: Present: soft, non-tender Rectal Exam: deferred - Genitourinary Male genitourinary: Present: deferred - Integumentary Integumentary: warm - Musculoskeletal Musculoskeletal: generalized weakness - Neurologic Neurologic: moves all extremities Medications & Allergies - Medications Allergies/Adverse Reactions: Allergies Sulfa (Sulfonamide Antibiotics) Allergy (Verified 10/10/18 16:54) Unknown Home Medications: Home Medications Medication Instructions Recorded Confirmed Last Taken Type Acetaminophen [Tylenol] 1,000 mg PO Q6HR 10/10/18 10/10/18 Unknown History Amlodipine Besylate [Norvasc] 10 mg PO QDAY 10/10/18 10/10/18 Unknown History Aspirin [Adult Aspirin] 81 mg PO DAILY 10/10/18 10/10/18 Unknown History Atorvastatin [Lipitor Tab] 80 mg PO DAILY 10/10/18 10/10/18 Unknown History Losartan [Cozaar] 100 mg PO QDAY 10/10/18 10/10/18 Unknown History Multivitamin [Multiple Vitamins] 1 each PO DAILY 10/10/18 10/10/18 Unknown History hydroCHLOROthiazide [HCTZ] 25 mg PO QDAY 10/10/18 10/10/18 Unknown History Active Medications: Generic Name Dose Route Start Last Admin Trade Name Freq PRN Reason Stop Dose Admin Acetaminophen 500 mg 10/16/18 10:02 12/02/18 17:38 Tylenol PO 500 mg Q6H PRN Administration Fever >101 Albumin Human 25 gm 11/04/18 16:14 Alburx 25% (Albumin) IV CHON PRN Hypotension Albuterol 2.5 mg 11/21/18 07:24 Proventil IH Q4HRT PRN Shortness Of Breath Lipase/Protease/Amylase 1 each 10/11/18 12:[address] 10,500 Unit FEEDTUBE PRN PRN For Clogged Feeding Tube Atovaquone 1,500 mg 11/14/18 10:00 12/02/18 11:19 Mepron PO 1,500 mg QDAY RUBI Administration Darunavir 800 mg 10/30/18 18:00 12/02/18 11:22 Prezista PO 800 mg QDAY RUBI Administration Emtricitabine 200 mg 11/01/18 10:00 12/01/18 10:16 Emtriva PO 200 mg Q48HR RUBI Administration Epoetin D[place] 20,000 unit 11/12/18 15:00 11/28/18 15:52 Procrit IV 20,000 unit .MWF RUBI Administration Heparin Sodium (Porcine) 5,000 unit 11/04/18 16:15 11/28/18 18:22 Heparin IV 5,000 unit CHON PRN Administration hemodialysis Heparin Sodium (Porcine) 5,000 unit 11/07/18 22:00 12/03/18 05:11 Heparin SUB-Q 5,000 unit Q8HR RUBI Administration Hydrophilic Ointment 1 applic 10/10/18 17:53 Vaseline Lip Therapy TP Q2HR PRN Dry Lips Sodium Chloride 100 mls @ 999 mls/hr 11/12/18 09:51 Nacl 0.9% IV CHON PRN Hypotension Ipratropium [place] 0.5 mg 11/20/18 22:07 Atrovent IH Q4HRT PRN Shortness Of Breath Metoprolol Tartrate 5 mg 10/18/18 14:05 12/02/18 05:47 Lopressor IV 5 mg Q6HR PRN Administration Tachyarrhythmias Metoprolol Tartrate 25 mg 11/24/18 13:00 12/03/18 05:11 Lopressor PO 25 mg Q6HR RUBI Administration Multi-Ingred Cream/Lotion/Oil/Oint 1 applic 10/10/18 17:53 Artificial Tears Ophth Oint OU Q4HR PRN Dry Eye(s) Multivitamins 1 each 10/11/18 10:00 12/02/18 11:19 Theragran Tab PO 1 each DAILY RUBI Administration Ondansetron HCl 4 mg 11/12/18 15:05 Zofran IV Q8H PRN N/V unrelieved by Regbertha Pantoprazole Sodium 40 mg 12/03/18 10:00 Protonix PO DAILY RUBI Psyllium Hydrophilic Mucilloid 1 each 11/08/18 18:00 12/02/18 11:29 Metamucil PO 1 each QDAY RUBI Administration Ritonavir 100 mg 10/30/18 18:00 12/02/18 11:20 Norvir PO 100 mg QDAY RUBI Administration Sertraline HCl 50 mg 11/21/18 19:52 12/02/18 11:20 Zoloft PO 50 mg QDAY RUBI Administration Simple Syrup 15 ml 10/11/18 12:58 Simple Syrup FEEDTUBE PRN PRN Hypoglycemia Simple Syrup 30 ml 10/11/18 12:58 Simple Syrup FEEDTUBE PRN PRN Hypoglycemia Sodium Bicarbonate 325 mg 10/11/18 12:58 Sodium Bicarbonate FEEDTUBE PRN PRN For Clogged Feeding Tube Sodium Chloride 10 ml 10/10/18 22:00 12/02/18 21:52 Sodium Chloride Flush Syringe 10 Ml IV 10 ml BID RUBI Administration Sodium Chloride 10 ml 10/10/18 18:12 Sodium Chloride Flush Syringe 10 Ml IV PRN PRN LINE FLUSH Tenofovir Disoproxil Fumarate 300 mg 10/30/18 17:45 12/01/18 19:36 Viread PO 300 mg Q96H RUBI Administration
[2018-12-03] MEDS: ZOLOFT PO SCH (09:12)
[2018-12-03] MEDS: MEPRON PO SCH (09:13)
[2018-12-03] MEDS: EMTRIVA PO SCH (09:13)
[2018-12-03] MEDS: NORVIR PO SCH (09:13)
[2018-12-03] MEDS: PROTONIX PO SCH (09:14)
[2018-12-03] MEDS: THERAGRAN Tab PO SCH (09:14)
[2018-12-03] MEDS: PREZISTA PO SCH (09:14)
[2018-12-03] MEDS: TIVICAY PO SCH (09:14)
[2018-12-03] MEDS: SODIUM CHLORIDE FLUSH SYRINGE 10 ML IV SCH ×2 (09:16→21:42)
[2018-12-03] MEDS: METAMUCIL PO SCH (09:20)
--- NOTE | 2018-12-03 10:27 | Progress Note ---
Assessment and Plan Assessment and plan: Acute encephalopathy multifactorial ?from hypertensive urgency +/- brain opportunistic infection. DDx: Neurosyphilis, VZV/CMV encephalitis versus MAILROOM ASSOCIATE lymphoma versus less likely PML v/s ischemic CVA (seems more likely) improving - CT head showed bilateral chronic ischemic changes. - Brain MRI showed areas of edema in the basal ganglia and thalami bilaterally, within the jamari and in the cerebral hemispheres bilaterally in the subcortical and deep white matter and in portions of the cortex, areas of encephalomalacia in the basal ganglia bilaterally with evidence of previous hemorrhage or mineral deposition and numerous small foci of acute infarct in the basal ganglia bilaterally, subinsular regions bilaterally and medial temporal lobes bilaterally and possibly in the occipital cortex bilaterally. - Brain MRA showed possible dissection versus artifact at the basilar artery. Luminal irregularity at the anterior, middle, and posterior cerebral arteries as well as the carotid siphons may represent mild to moderate atherosclerotic disease. More notable narrowing at the distal right A1 segment. Differential diagnosis includes motion artifact and vasculitis. Vertebral arteries are not clearly visualized. - CSF wbc 4, rbc 113, Seg 8%, Lymph 76%, protein 55, glucose 73 which is not c/w meningitis - RPR reactive 1:32 / FTA ABs reactive, treated with penicillin and ceftriaxone but CSF VDRL Non reactive. - Toxoplasma IgG negative, CSF Toxoplasma PCR: negative - Blood CMV DNA VL=1,370, 3.1 log on ganciclovir - likely reactivation - Repeat CMV DNA PCR 10/24/2018: <200. Off ganciclovir. - Glucan Assay: negative Consulted Neurology, he was evaluated by DR. Valentine. mentation is improved, and this is likely his new baseline Dysphagia/ moderate malnutrition -[facility] 10/23, recommended pureed with nectar thickened liquids, continue this diet -missile pad mechanic consulted Anemia/thrombocytopenia, leukocytosis, coagulopathy; now resolved -Status post platelet (3 units) and prbc (6 units ) transfusion, the patient had only few schistocytes on smear, ADAMS13 91% activity plt count has recovered HIV/AIDS, CD4 count 3, HIV viral load 320,000 Sepsis acute bacterial PNA, CMV viremia toxo neg, CSF neg ,Whole blood cmv PCR was positive at 1374 abx and anti- antiviral per ID,continues to have fever on and off chest CT :Patchy airspace disease in the right lower lobe compatible with pneumonia. No evidence of pleural effusion. -repeat CXR : clear lungs and normal bony and soft tissue structures. Patchy airspace disease in the right lower lobe has resolved since 11/07/18 Continues on atovaquone as prophylaxis. Patient has sulfa allergy. Oral candidiasis, nystatin swish and spit ordered x 7 days SHRUTHI/ATN now ESRD Continue hemodialysis per nephrology. Hyperkalemia, resolved Severe protein calorie malnutrition -dietitican consulted Acute hypoxic resp failure on MV> 96 hours self extubated 10/16, continue supplemental oxygen prn CTA neg for PE on 11/06 Acute on chronic systolic CHF He was treated with Cardene drip which was weaned off. Optimize medications for CHF on coreg, no mik due to high K, fluid removal by dialysis Stage 2 sacral wound decub, and bilat buttock wounds left buttocks area. The wound is measured at 9.0x2.5. 25% slough noticed to the wound sacral area. The wound is measured at 3.5x3.5.80% necrotic tissue noticed to the wound right buttocks area. The wound is measured at 5.0x3.0. no evidence of infection, but wounds are necrotic, cont wound care Depression MH input appreciated, he is improving Severe debility; he was previously refusing PT and not participating. He agrees to be more complaints of physical therapy. he is now participating with PT, contractures are improving DVT ppx- heparin sq Disposition: Physical therapy reports high fall risk and the need for maximal assist. I asked the patient about help at home particularly pertaining to his partner as informed to me by case management. However, patient was extremely evasive and did not answer my questions. He did give me a number for his mother at [phone]. He stated that she will be coming down to take care of him from [place]. I will attempt to discuss with mother discharge planning. I called the number listed and left a message over the weekend. I will attempt to call the mother again today. History Interval history: Patient is 43 YO Male with HIV, hypertension, previous stroke, Nicotine Dependence, presents to ED for evaluation. Patient was confused and lethargic and unable to provide history. He was seen and evaluated in ED and found to be in distress and unable to protect his airway and was therefore intubated, placed on ventilator and admitted to ICU. Patient diagnosed with acute resp failure, renal failure(acute vs acute on chronic) , Encephalopathy, Acidosis. He is followed by ID Physician for HIV/AIDS. His renal failure worsened therefore started on hemodialysis for SHRUTHI due to ATN, now ESRD. He has had a prolonged course, diagnosed with acute resp failure, sepsis , toxic metabolic encephalopathy. He is on HAART. Physical therapy reports high fall risk and the need for maximal assist. I asked the patient about help at home particularly pertaining to his partner is informed to me by case management. However, patient was extremely evasive and did not answer my questions. He did give me a number for his mother at [phone]. He stated that she will be coming down to take care of him from [place]. Hospitalist Physical - Constitutional Vitals: Temp Pulse Resp BP Pulse Ox 98.9 F 111 H 20 128/87 97 12/03/18 05:08 12/03/18 05:11 12/03/18 05:08 12/03/18 05:11 12/03/18 05:08 General appearance: Present: no acute distress, cachectic - EENT Eyes: Present: PERRL, EOM intact ENT: hearing intact, clear oral mucosa, dentition normal - Neck Neck: Present: supple, normal ROM - Respiratory Respiratory effort: normal Respiratory: bilateral: CTA - Cardiovascular Rhythm: regular Heart Sounds: Present: S1 & S2. Absent: gallop, rub - Extremities Extremities: no ischemia, No edema, Full ROM - Abdominal General gastrointestinal: soft, non-tender, non-distended, normal bowel sounds - Integumentary Integumentary: Present: clear, warm, dry - Neurologic Neurologic: CNII-XII intact, moves all extremities Results - Labs CBC & Chem 7: 11/29/18 05:15 11/29/18 05:15 Labs: Laboratory Last Values WBC 7.0 K/mm3 (4.5-11.0) 11/29/18 05:15 RBC 2.70 M/mm3 (3.65-5.03) L 11/29/18 05:15 Hgb 7.7 gm/dl (11.8-15.2) L 11/29/18 05:15 Hct 24.6 % (35.5-45.6) L 11/29/18 05:15 MCV 91 fl (84-94) 11/29/18 05:15 MCH 29 pg (28-32) 11/29/18 05:15 MCHC 31 % (32-34) L 11/29/18 05:15 RDW 21.3 % (13.2-15.2) H 11/29/18 05:15 Plt Count 223 K/mm3 (140-440) 11/29/18 05:15 Lymph % (Auto) Charge Entry Specialist 11/24/18 00:09 Gregory % (Auto) Charge Entry Specialist 11/24/18 00:09 Eos % (Auto) Charge Entry Specialist 11/24/18 00:09 Baso % (Auto) Charge Entry Specialist 11/24/18 00:09 Lymph # Charge Entry Specialist 11/24/18 00:09 Gregory # Charge Entry Specialist 11/24/18 00:09 Eos # Charge Entry Specialist 11/24/18 00:09 Baso # Charge Entry Specialist 11/24/18 00:09 Add Manual Diff Complete 11/29/18 05:15 Total Counted 100 11/29/18 05:15 Seg Neutrophils % Charge Entry Specialist 11/24/18 00:09 Seg Neuts % (Manual) 87.0 % (40.0-70.0) H 11/29/18 05:15 Band Neutrophils % 0 % 11/29/18 05:15 Lymphocytes % (Manual) 3.0 % (13.4-35.0) L 11/29/18 05:15 Reactive Lymphs % (Man) 2.0 % 11/29/18 05:15 Monocytes % (Manual) 4.0 % (0.0-7.3) 11/29/18 05:15 Eosinophils % (Manual) 1.0 % (0.0-4.3) 11/29/18 05:15 Basophils % (Manual) 2.0 % (0.0-1.8) H 11/29/18 05:15 Metamyelocytes % 1.0 % 11/29/18 05:15 Myelocytes % 0 % 11/29/18 05:15 Promyelocytes % 0 % 11/29/18 05:15 Blast Cells % 0 % 11/29/18 05:15 Nucleated RBC % 1.0 % (0.0-0.9) H 11/29/18 05:15 Seg Neutrophils # Charge Entry Specialist 11/24/18 00:09 Seg Neutrophils # Man 6.1 K/mm3 (1.8-7.7) 11/29/18 05:15 Band Neutrophils # 0.0 K/mm3 11/29/18 05:15 Abs Lymphs (Manual) 519 cells/uL (850-3900) L 11/28/18 06:46 Lymphocytes # (Manual) 0.2 K/mm3 (1.2-5.4) L 11/29/18 05:15 Abs React Lymphs (Man) 0.1 K/mm3 11/29/18 05:15 Monocytes # (Manual) 0.3 K/mm3 (0.0-0.8) 11/29/18 05:15 Eosinophils # (Manual) 0.1 K/mm3 (0.0-0.4) 11/29/18 05:15 Basophils # (Manual) 0.1 K/mm3 (0.0-0.1) 11/29/18 05:15 Metamyelocytes # 0.1 K/mm3 11/29/18 05:15 Myelocytes # 0.0 K/mm3 11/29/18 05:15 Promyelocytes # 0.0 K/mm3 11/29/18 05:15 Blast Cells # 0.0 K/mm3 11/29/18 05:15 Pathologist Review 10/15/18 03:14 WBC Morphology Not Reportable 11/29/18 05:15 Hypersegmented Neuts Not Reportable 11/29/18 05:15 Hyposegmented Neuts Not Reportable 11/29/18 05:15 Hypogranular Neuts Not Reportable 11/29/18 05:15 Smudge Cells Not Reportable 11/29/18 05:15 Toxic Granulation Not Reportable 11/29/18 05:15 Toxic Vacuolation Not Reportable 11/29/18 05:15 Dohle Bodies Not Reportable 11/29/18 05:15 Pelger-Huet Anomaly Not Reportable 11/29/18 05:15 Kartik Rods Not Reportable 11/29/18 05:15 Platelet Estimate Consistent w auto 11/29/18 05:15 Clumped Platelets Not Reportable 11/29/18 05:15 Plt Clumps, EDTA Not Reportable 11/29/18 05:15 Large Platelets 1+ 11/29/18 05:15 Giant Platelets Not Reportable 11/29/18 05:15 Platelet Satelliting Not Reportable 11/29/18 05:15 Plt Morphology Comment Not Reportable 11/29/18 05:15 RBC Morphology Not Reportable 11/29/18 05:15 Dimorphic RBCs Not Reportable 11/29/18 05:15 Polychromasia Not Reportable 11/29/18 05:15 Hypochromasia Not Reportable 11/29/18 05:15 Poikilocytosis 1+ 11/29/18 05:15 Anisocytosis 1+ 11/29/18 05:15 Microcytosis Not Reportable 11/29/18 05:15 Macrocytosis 1+ 11/29/18 05:15 Spherocytes Not Reportable 11/29/18 05:15 Pappenheimer Bodies Not Reportable 11/29/18 05:15 Sickle Cells Not Reportable 11/29/18 05:15 Target Cells Not Reportable 11/29/18 05:15 Tear Drop Cells Not Reportable 11/29/18 05:15 Ovalocytes Few 11/29/18 05:15 Stomatocytes Few 11/10/18 06:54 Helmet Cells Not Reportable 11/29/18 05:15 [place] Bodies Not Reportable 11/29/18 05:15 [place] Rings Not Reportable 11/29/18 05:15 [place] Cells Not Reportable 11/29/18 05:15 Bite Cells Not Reportable 11/29/18 05:15 Crenated Cell Not Reportable 11/29/18 05:15 Elliptocytes 1+ 11/29/18 05:15 Acanthocytes (Spur) Not Reportable 11/29/18 05:15 Rouleaux Not Reportable 11/29/18 05:15 Hemoglobin C Crystals Not Reportable 11/29/18 05:15 Schistocytes Not Reportable 11/29/18 05:15 Malaria parasites Not Reportable 11/29/18 05:15 Jv Bodies Not Reportable 11/29/18 05:15 Hem Pathologist Commnt No 11/29/18 05:15 PT 17.7 Sec. (12.2-14.9) H 11/06/18 13:18 INR 1.36 (0.87-1.13) H 11/06/18 13:18 APTT 30.6 Sec. (24.2-36.6) 11/06/18 13:18 Thrombin Time 16.9 Sec. (15.1-19.6) 10/10/18 15:02 Heparin Anti-Xa Level < 0.10 U.I./ml (0.3-0.7) L 11/07/18 21:31 Heparin Anti-Xa, Unfract Negative (Negative) 10/25/18 05:59 POC ABG pH 7.455 (7.35-7.45) H 11/23/18 13:46 POC ABG pCO2 32.0 (35-45) L 10/21/18 09:49 POC ABG pO2 111 (80-105) H 11/23/18 13:46 POC ABG HCO3 17.3 (22-26 mml/L) 11/23/18 13:46 POC ABG Total CO2 18 (23-27mmol/L) 11/23/18 13:46 POC ABG O2 Sat 99 11/23/18 13:46 POC ABG Base Excess -7 ((-2) - (+3)mmol/L) 11/23/18 13:46 FiO2 21 % 11/23/18 13:46 Sodium 137 mmol/L (137-145) 11/29/18 05:15 Potassium 3.3 mmol/L (3.6-5.0) L 11/29/18 05:15 Chloride 93.7 mmol/L (98-107) L 11/29/18 05:15 Carbon Dioxide 27 mmol/L (22-30) 11/29/18 05:15 Anion Gap 20 mmol/L 11/29/18 05:15 BUN 14 mg/dL (9-20) 11/29/18 05:15 Creatinine 3.4 mg/dL (0.8-1.5) H 11/29/18 05:15 Estimated GFR 24 ml/min 11/29/18 05:15 BUN/Creatinine Ratio 4 % 11/29/18 05:15 Glucose 115 mg/dL (75-100) H 11/29/18 05:15 POC Glucose 110 (70-105) H 11/23/18 13:35 Osmolality 338 Mosm/kg 10/11/18 17:35 Lactic Acid 1.80 mmol/L (0.7-2.0) 10/12/18 05:59 Uric Acid 13.4 mg/dL (3.5-7.6) H 10/11/18 17:36 Calcium 8.7 mg/dL (8.4-10.2) 11/29/18 05:15 Phosphorus 6.50 mg/dL (2.5-4.5) H 11/24/18 10:53 Magnesium 3.10 mg/dL (1.7-2.3) H 10/18/18 05:03 Iron 147 ug/dL (49-181) 10/11/18 17:36 TIBC 236 mcg/dL (250-450) L 10/11/18 17:36 Ferritin 01632.0 ng/mL (13.0-400.0) H 10/11/18 17:35 Total Bilirubin 0.30 mg/dL (0.1-1.2) 11/19/18 05:31 Direct Bilirubin 0.2 mg/dL (0-0.2) 10/16/18 04:07 Indirect Bilirubin 0.3 mg/dL 10/16/18 04:07 AST 26 units/L (5-40) 11/19/18 05:31 ALT 11 units/L (7-56) 11/19/18 05:31 Alkaline Phosphatase 74 units/L (35-129) 11/19/18 05:31 Ammonia 25.0 umol/L (25-60) 10/17/18 14:59 Lactate Dehydrogenase 925 units/L (91-180) H 10/22/18 05:51 Troponin T 0.357 ng/mL (0.00-0.029) H* 11/06/18 05:54 NT-Pro-B Natriuret Pep 74703 pg/mL (0-450) H 10/10/18 15:42 Total Protein 7.6 g/dL (6.3-8.2) 11/19/18 05:31 Albumin 2.6 g/dL (3.9-5) L 11/19/18 05:31 Albumin/Globulin Ratio 0.5 % 11/19/18 05:31 Triglycerides 306 mg/dL (2-149) H 11/05/18 11:29 Cholesterol 145 mg/dL (50-199) 11/05/18 11:29 LDL Cholesterol Direct 89 mg/dL (50-130) 11/05/18 11:29 HDL Cholesterol 25 mg/dL (40-59) L 11/05/18 11:29 Cholesterol/HDL Ratio 5.80 % 11/05/18 11:29 Serotonin Release Assay See scanned result 10/25/18 05:59 Vitamin B12 912.3 pg/mL (211-911) H 10/14/18 08:51 Folate 8.32 ng/mL (7.3-26.0) 10/14/18 08:51 PTH Intact 118.0 pg/mL (15-65) H 11/24/18 10:53 Urine Creatinine 30.8 mg/dL (0.1-20.0) H 10/13/18 04:43 Urine Sodium 106 mmol/L 10/13/18 04:43 Urine Total Protein 75 mg/dL (5-11.8) H 10/13/18 04:43 CSF Appearance Clear 10/16/18 15:00 CSF Color Colorless 10/16/18 15:00 CSF WBC 4 /mm3 (1-10) 10/16/18 15:00 CSF RBC 113 /mm3 (0-0) 10/16/18 15:00 CSF Seg Neutrophils 8.0 % (0-6) 10/16/18 15:00 CSF Lymphocytes % 76.0 % (40-80) 10/16/18 15:00 CSF Reactive Lymphs 2.0 % 10/16/18 15:00 CSF Monocytes % 14.0 % (15-45) 10/16/18 15:00 CSF Eosinophils % 0 % 10/16/18 15:00 CSF Basophils 0 % 10/16/18 15:00 CSF Pathologist Review C 10/16/18 15:00 CSF Glucose 73 mg/dL 10/16/18 15:00 CSF Total Protein 55 mg/dL 10/16/18 15:00 CSF VDRL Nonreactive (Nonreactive) 10/16/18 15:00 Random Vancomycin 21.1 ug/mL (0-40.0) 11/20/18 06:15 Immunofix Electrophor see below 10/11/18 17:36 RENO Screen Negative (Negative) 10/21/18 15:07 Proteinase 3 (PR3) Ab <1.0 AI (<1.0) 10/21/18 15:07 Myeloperoxidase Ab <1.0 AI (<1.0) 10/21/18 15:07 Heparin-induced Plt Ab Negative (Negative) 10/25/18 05:59 UF Heparin High Dose 0 % Release 10/25/18 05:59 VJ UFH Low Dose 0.1 0 % Release 10/25/18 05:59 VJ UFH Low Dose 0.5 14 % Release 10/25/18 05:59 Lymph Enumerat CD4/CD8 0.01 (0.86-5.00) L 11/28/18 06:46 % CD3 Cells 71 % (57-85) 11/28/18 06:46 Absolute CD3 Count 370 cells/uL (840-3060) L 11/28/18 06:46 % CD4 Cells 1 % (30-61) L 11/28/18 06:46 Absolute CD4 Count 6 cells/uL (490-1740) L 11/28/18 06:46 % CD8 Cells 67 % (12-42) H 11/28/18 06:46 Absolute CD8 Count 352 cells/uL (180-1170) 11/28/18 06:46 % CD19 Cells 4 % (6-29) L 11/28/18 06:46 Absolute CD19 Count 23 cells/uL (110-660) L 11/28/18 06:46 RPR Titer 1:32 10/11/18 17:37 RPR Reactive (Nonreactive) 10/11/18 17:37 T.pallidum Ab (FTA-ABS) Reactive (Nonreactive) H 10/12/18 Unknown 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 See scanned result 10/24/18 17:47 Hepatitis A IgM Ab Non-reactive (NonReactive) 11/21/18 09:58 Hep Bs Antigen Non-reactive (Negative) 11/21/18 09:58 Hep B Core IgM Ab Non-reactive (NonReactive) 11/21/18 09:58 Hepatitis C Antibody Non-reactive (NonReactive) 11/21/18 09:58 HIV-1 RNA PCR copies/ml 47 Copies/mL H 11/28/18 06:46 HIV-1 RNA (PCR) log 1.67 Log cps/mL H 11/28/18 06:46 HIV-1 Genotyping See scanned results 10/29/18 19:48 Toxoplasma IgG Ab <7.20 IU/mL (<7.20) 10/13/18 07:54 Miscellaneous Test Flexitest 1 10/31/18 06:43 Blood Type A POSITIVE 11/08/18 11:28 Antibody Screen Negative 11/08/18 11:28 Crossmatch See Detail 11/08/18 11:28 Active Medications - Current Medications Current Medications: Generic Name Dose Route Start Last Admin Trade Name Freq PRN Reason Stop Dose Admin Acetaminophen 500 mg 10/16/18 10:02 12/02/18 17:38 Tylenol PO 500 mg Q6H PRN Administration Fever >101 Albumin Human 25 gm 11/04/18 16:14 Alburx 25% (Albumin) IV CHON PRN Hypotension Albuterol 2.5 mg 11/21/18 07:24 Proventil IH Q4HRT PRN Shortness Of Breath Lipase/Protease/Amylase 1 each 10/11/18 12:[address] 10,500 Unit FEEDTUBE PRN PRN For Clogged Feeding Tube Atovaquone 1,500 mg 11/14/18 10:00 12/03/18 09:13 Mepron PO 1,500 mg QDAY RUBI Administration Darunavir 800 mg 10/30/18 18:00 12/03/18 09:14 Prezista PO 800 mg QDAY RUBI Administration Emtricitabine 200 mg 11/01/18 10:00 12/03/18 09:13 Emtriva PO 200 mg Q48HR RUBI Administration Epoetin [place] 20,000 unit 11/12/18 15:00 11/28/18 15:52 Procrit IV 20,000 unit .MWF RUBI Administration Heparin Sodium (Porcine) 5,000 unit 11/04/18 16:15 11/28/18 18:22 Heparin IV 5,000 unit CHON PRN Administration hemodialysis Heparin Sodium (Porcine) 5,000 unit 11/07/18 22:00 12/03/18 05:11 Heparin SUB-Q 5,000 unit Q8HR RUBI Administration Hydrophilic Ointment 1 applic 10/10/18 17:53 Vaseline Lip Therapy TP Q2HR PRN Dry Lips Sodium Chloride 100 mls @ 999 mls/hr 11/12/18 09:51 Nacl 0.9% IV CHON PRN Hypotension Ipratropium [place] 0.5 mg 11/20/18 22:07 Atrovent IH Q4HRT PRN Shortness Of Breath Metoprolol Tartrate 5 mg 10/18/18 14:05 12/02/18 05:47 Lopressor IV 5 mg Q6HR PRN Administration Tachyarrhythmias Metoprolol Tartrate 25 mg 11/24/18 13:00 12/03/18 05:11 Lopressor PO 25 mg Q6HR RUBI Administration Multi-Ingred Cream/Lotion/Oil/Oint 1 applic 10/10/18 17:53 Artificial Tears Ophth Oint OU Q4HR PRN Dry Eye(s) Multivitamins 1 each 10/11/18 10:00 12/03/18 09:14 Theragran Tab PO 1 each DAILY RUBI Administration Ondansetron HCl 4 mg 11/12/18 15:05 Zofran IV Q8H PRN N/V unrelieved by Buddy Pantoprazole Sodium 40 mg 12/03/18 10:00 12/03/18 09:14 Protonix PO 40 mg DAILY RUBI Administration Psyllium Hydrophilic Mucilloid 1 each 11/08/18 18:00 12/03/18 09:20 Metamucil PO Not Given QDAY RUBI Ritonavir 100 mg 10/30/18 18:00 12/03/18 09:13 Norvir PO 100 mg QDAY RUBI Administration Sertraline HCl 50 mg 11/21/18 19:52 12/03/18 09:12 Zoloft PO 50 mg QDAY RUBI Administration Simple Syrup 15 ml 10/11/18 12:58 Simple Syrup FEEDTUBE PRN PRN Hypoglycemia Simple Syrup 30 ml 10/11/18 12:58 Simple Syrup FEEDTUBE PRN PRN Hypoglycemia Sodium Bicarbonate 325 mg 10/11/18 12:58 Sodium Bicarbonate FEEDTUBE PRN PRN For Clogged Feeding Tube Sodium Chloride 10 ml 10/10/18 22:00 12/03/18 09:16 Sodium Chloride Flush Syringe 10 Ml IV 10 ml BID RUBI Administration Sodium Chloride 10 ml 10/10/18 18:12 Sodium Chloride Flush Syringe 10 Ml IV PRN PRN LINE FLUSH Tenofovir Disoproxil Fumarate 300 mg 10/30/18 17:45 12/01/18 19:36 Viread PO 300 mg Q96H RUBI Administration Nutrition/Malnutrition Assess - Dietary Evaluation Nutrition/Malnutrition Findings: Nutrition Notes Start: 10/11/18 11:14 Freq: Status: Active Protocol: Document 11/26/18 14:28 RM (Rec: 11/26/18 14:34 RM [email or web address]) Nutrition Notes Initial or Follow up Reassessment Current Diagnosis Acute Kidney Injury,CKD(stage I-IV),Hypertension,Heart Failure,Stroke Other Pertinent Diagnosis Depression,Dysphagia,on HD, Acute encephalopathy,HIV/AIDS, Syphilis Current Diet Pureed Labs/Tests Reviewed Pertinent Medications Reviewed Height 5 ft 9 in Weight 51 kg [place] Body Weight (kg) 72.72 BMI 16.6 Subjective/Other Information Pt confused at time of visit. Pt tech stated that pt eats 25 % of his meals. Unsure of whether pt has had any Nepro. Percent of energy/protein needs met: 43%/66% Burn Absent Trauma Absent #2 Nutrition Diagnosis Malnutrition Diagnosis Progress(for reassessment Continues documentation) #1 Nutrition Diagnosis Inadequate oral intake Diagnosis Progress(for reassessment Continues documentation) Is patient on ventilator? No Is Patient Ambulatory and/or Out of Bed No REE-([facility]-confined to bed) 1683.876 Kcal/Kg value to use for calculation 40 Approximate Energy Requirements Using 2040 kcal/Kg Calculation Used for Recommendations Kcal/kg Additional Notes Pro needs 1.2-1.5g/k-72g/ day Fluid needs 1ml/kcal Nutrition Intervention Change Diet Order: Pureed diet Add Supplement/Snack (indicate name/kcal Nepro 1 daily /protein ) Provides kCal: 425 Provides Protein (gm) 19 Goal #1 Meet at least 75% of calorie and protein needs via PO and ONS intakes Anticipated Discharge Needs: Pureed, Renal diet Follow-Up By: 12/05/18 Additional Comments Follow for PO and ONS intakes
--- NOTE | 2018-12-03 10:57 | Progress Note ---
Assessment and Plan - Patient Problems (1) Acute kidney injury Current Visit: Yes Status: Acute Plan to address problem: Acute kidney injury : severe Now dialysis dependent. I reviewed renal Ultrasound with 10.1cm and 10.8cm kidneys bilateral echogenic Possible aetiologies of Acute kidney injury is likely 2/2 acute tubular injury ,possible underlying HIV associated nephropathy cannot be excluded . He is currently oliguric currently dialysis dependent. Currently has tunneled dialysis catheter appreciate Vascular surgery assistance. Avoid Nephrotoxic medications. 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 Hb: 7.7g/dl Epogen 20,000 units Monitor CBC. (3) HIV (human immunodeficiency virus infection) Current Visit: Yes Status: Acute Qualifiers: HIV symptom status: symptomatic Qualified Code(s): B20 - Human immunodeficiency virus [HIV] disease Plan to address problem: HIV/ AIDS - has been treated for infection Still spiking fevers 101F - infectious disease on board . (4) Tachycardia Current Visit: Yes Status: Acute Plan to address problem: Past Persistent febrile episodes EKG reviewed sinus tachycardia Subjective Principal diagnosis: anemia Interval history: 43 year old gentleman with medical history significant for HIV admitted with Sepsis , acute hypoxemic respiratory failure , Encephalopathy , transaminitis and worsening renal failure . Patient seen this morning Denies any ongoing diarrhea Has a right IJ tunneled dialysis catheter I attest I saw the patient on hemodialysis at 4 PM Objective - Vital Signs Vital signs: Vital Signs - 12hr 12/02/18 12/03/18 12/03/18 23:20 00:27 04:43 Temperature 98.8 F 98.1 F Pulse Rate 113 H 113 H 111 H Respiratory 18 18 Rate Blood Pressure 129/89 128/87 Blood Pressure 129/89 [Left] O2 Sat by Pulse 100 100 Oximetry 12/03/18 12/03/18 05:08 05:11 Temperature 98.9 F Pulse Rate 73 111 H Respiratory 20 Rate Blood Pressure 132/64 128/87 Blood Pressure [Left] O2 Sat by Pulse 97 Oximetry - General Appearance General appearance: cachectic, chronically ill, frail EENT: ATNC, PERRL Neck: no JVD Respiratory: Present: Decreased Breath Sounds Cardiology: regular, tachycardia, S1S2 Gastrointestinal: normal, normoactive bowel sounds Integumentary: no rash Neurologic: other (awake,alert ) Musculoskeletal: deferred Psychiatric: depressed - Lab 11/29/18 05:15 11/29/18 05:15 Most recent lab results Calcium 8.7 mg/dL (8.4-10.2) 11/29/18 05:15 Phosphorus 6.50 mg/dL (2.5-4.5) H 11/24/18 10:53 Magnesium 3.10 mg/dL (1.7-2.3) H 10/18/18 05:03 Urine Creatinine 30.8 mg/dL (0.1-20.0) H 10/13/18 04:43 Urine Sodium 106 mmol/L 10/13/18 04:43 Urine Total Protein 75 mg/dL (5-11.8) H 10/13/18 04:43 - Imaging Chest x-ray: image reviewed (IV chest x-ray some hazy opacities noted) Medications & Allergies - Medications Allergies/Adverse Reactions: Allergies Sulfa (Sulfonamide Antibiotics) Allergy (Verified 10/10/18 16:54) Unknown Home Medications: Home Medications Medication Instructions Recorded Confirmed Last Taken Type Acetaminophen [Tylenol] 1,000 mg PO Q6HR 10/10/18 10/10/18 Unknown History Amlodipine Besylate [Norvasc] 10 mg PO QDAY 10/10/18 10/10/18 Unknown History Aspirin [Adult Aspirin] 81 mg PO DAILY 10/10/18 10/10/18 Unknown History Atorvastatin [Lipitor Tab] 80 mg PO DAILY 10/10/18 10/10/18 Unknown History Losartan [Cozaar] 100 mg PO QDAY 10/10/18 10/10/18 Unknown History Multivitamin [Multiple Vitamins] 1 each PO DAILY 10/10/18 10/10/18 Unknown History hydroCHLOROthiazide [HCTZ] 25 mg PO QDAY 10/10/18 10/10/18 Unknown History Active Medications: Generic Name Dose Route Start Last Admin Trade Name Freq PRN Reason Stop Dose Admin Acetaminophen 500 mg 10/16/18 10:02 12/02/18 17:38 Tylenol PO 500 mg Q6H PRN Administration Fever >101 Albumin Human 25 gm 11/04/18 16:14 Alburx 25% (Albumin) IV CHON PRN Hypotension Albuterol 2.5 mg 11/21/18 07:24 Proventil IH Q4HRT PRN Shortness Of Breath Lipase/Protease/Amylase 1 each 10/11/18 12:58 Pancreaze 10,500 Unit FEEDTUBE PRN PRN For Clogged Feeding Tube Atovaquone 1,500 mg 11/14/18 10:00 12/03/18 09:13 Mepron PO 1,500 mg QDAY RUBI Administration Darunavir 800 mg 10/30/18 18:00 12/03/18 09:14 Prezista PO 800 mg QDAY RUBI Administration Emtricitabine 200 mg 11/01/18 10:00 12/03/18 09:13 Emtriva PO 200 mg Q48HR RUBI Administration Epoetin Dany 20,000 unit 11/12/18 15:00 11/28/18 15:52 Procrit IV 20,000 unit .MWF RUBI Administration Heparin Sodium (Porcine) 5,000 unit 11/04/18 16:15 11/28/18 18:22 Heparin IV 5,000 unit CHON PRN Administration hemodialysis Heparin Sodium (Porcine) 5,000 unit 11/07/18 22:00 12/03/18 05:11 Heparin SUB-Q 5,000 unit Q8HR RUBI Administration Hydrophilic Ointment 1 applic 10/10/18 17:53 Vaseline Lip Therapy TP Q2HR PRN Dry Lips Sodium Chloride 100 mls @ 999 mls/hr 11/12/18 09:51 Nacl 0.9% IV CHON PRN Hypotension Ipratropium [place] 0.5 mg 11/20/18 22:07 Atrovent IH Q4HRT PRN Shortness Of Breath Metoprolol Tartrate 5 mg 10/18/18 14:05 12/02/18 05:47 Lopressor IV 5 mg Q6HR PRN Administration Tachyarrhythmias Metoprolol Tartrate 25 mg 11/24/18 13:00 12/03/18 05:11 Lopressor PO 25 mg Q6HR RUBI Administration Multi-Ingred Cream/Lotion/Oil/Oint 1 applic 10/10/18 17:53 Artificial Tears Ophth Oint OU Q4HR PRN Dry Eye(s) Multivitamins 1 each 10/11/18 10:00 12/03/18 09:14 Theragran Tab PO 1 each DAILY RUBI Administration Ondansetron HCl 4 mg 11/12/18 15:05 Zofran IV Q8H PRN N/V unrelieved by Buddy Pantoprazole Sodium 40 mg 12/03/18 10:00 12/03/18 09:14 Protonix PO 40 mg DAILY RUBI Administration Psyllium Hydrophilic Mucilloid 1 each 11/08/18 18:00 12/03/18 09:20 Metamucil PO Not Given QDAY RUBI Ritonavir 100 mg 10/30/18 18:00 12/03/18 09:13 Norvir PO 100 mg QDAY RUBI Administration Sertraline HCl 50 mg 11/21/18 19:52 12/03/18 09:12 Zoloft PO 50 mg QDAY RUBI Administration Simple Syrup 15 ml 10/11/18 12:58 Simple Syrup FEEDTUBE PRN PRN Hypoglycemia Simple Syrup 30 ml 10/11/18 12:58 Simple Syrup FEEDTUBE PRN PRN Hypoglycemia Sodium Bicarbonate 325 mg 10/11/18 12:58 Sodium Bicarbonate FEEDTUBE PRN PRN For Clogged Feeding Tube Sodium Chloride 10 ml 10/10/18 22:00 12/03/18 09:16 Sodium Chloride Flush Syringe 10 Ml IV 10 ml BID RUBI Administration Sodium Chloride 10 ml 10/10/18 18:12 Sodium Chloride Flush Syringe 10 Ml IV PRN PRN LINE FLUSH Tenofovir Disoproxil Fumarate 300 mg 10/30/18 17:45 12/01/18 19:36 Viread PO 300 mg Q96H RUBI Administration
[2018-12-03] MEDS ORDERED: NACL 0.9 (PRIMING MACHINE ONLY DIALYSIS) MC ONE (14:45)
--- NOTE | 2018-12-03 16:44 | Progress Note ---
Assessment and Plan Cultures: Blood culture 10/10/2018 no growth. Sputum culture 10/10/2018 Ana Paula albicans. Crypto Ag 10/10/2018 neg. Urine culture 10/13/2018 no growth. Blood culture 10/17/2018 no growth. Blood culture 10/20/2018: no growth Stool Occult Blood 10/23/18: positive Blood culture 10/29/18: negative Urine culture 10/31/18: Ana Paula Blood culture 11/05/18: No growth Blood culture 11/14/18: no growth Assessment: 43 y/o male with history of HIV (unknown CD4/VL/ART intake), HTN, CVA 6 months ago at [place], Nicotine Dependence, Malnutrition; admitted on 10/10/2018 due to AMS (confusion/lethargy) and slurred speech for 24 h: 1) SIRS versus sepsis: with new fever 101.1 unclear etiology - CXR neg - BNP 70K - Troponin 0.2 - LDH 2242 -chest CT :Patchy airspace disease in the right lower lobe compatible with pneumonia. No evidence of pleural effusion. -repeat CXR : clear lungs and normal bony and soft tissue structures. Patchy airspace disease in the right lower lobe has resolved since 11/07/18 2) Acute hypoxemic respiratory failure:resolved 3) Acute encephalopathy: Improved.; multifactorial ?from hypertensive urgency +/- brain opportunistic infection. DDx: Neurosyphilis, VZV/CMV encephalitis versus BASE BRANDER lymphoma versus less likely PML v/s ischemic CVA (seems more likely) - CT head showed bilateral chronic ischemic changes. - Brain MRI showed areas of edema in the basal ganglia and thalami bilaterally, within the jamari and in the cerebral hemispheres bilaterally in the subcortical and deep white matter and in portions of the cortex, areas of encephalomalacia in the basal ganglia bilaterally with evidence of previous hemorrhage or mineral deposition and numerous small foci of acute infarct in the basal ganglia bilaterally, subinsular regions bilaterally and medial temporal lobes bilaterally and possibly in the occipital cortex bilaterally. - Brain MRA showed possible dissection versus artifact at the basilar artery. Luminal irregularity at the anterior, middle, and posterior cerebral arteries as well as the carotid siphons may represent mild to moderate atherosclerotic disease. More notable narrowing at the distal right A1 segment. Differential diagnosis includes motion artifact and vasculitis. Vertebral arteries are not clearly visualized. - CSF wbc 4, rbc 113, Seg 8%, Lymph 76%, protein 55, glucose 73 which is not c/w meningitis - RPR reactive 1:32 / FTA ABs reactive, treated with penicillin and ceftriaxone but CSF VDRL Non reactive. - Toxoplasma IgG negative, CSF Toxoplasma PCR: negative - Blood CMV DNA VL=1,370, 3.1 log on ganciclovir - likely reactivation - Repeat CMV DNA PCR 10/24/2018: <200. Off ganciclovir. - Glucan Assay: negative 4) Anemia/thrombocytopenia: improving. 5) Acute on CKD or SHRUTHI ? unclear etiology: on HD. RIJ permacath placement 6) DM: uncontrolled. 7) HIV/AIDS: VL 320,000 / CD4=3 on 10/11/2018 --> VL=47 / CD4=6 on 11/28/2018. 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 Started HIV treatment on 10/30/2018. Continue HIV therapy,renally adjusted TDF, FTC along with dolutegravir and ritonavir boosted darunavir. 8) Decubitus Ulcers: Left buttocks wound measures 9.0 x 2.5, Sacral wound measur es 3.5 x 3.5, 80 % necrotic tissue, Right buttocks wound measures 5.0 x 3.[address] Go to perform bedside debridement of sacral pressure ulcer 11/29/18. Recommendations: obtain repeat blood culture and CXR due to new fever monitor fever continue atovaquone 750 mg BID continue HIV therapy: renally adjusted TDF, FTC along with dolutegravir and ritonavir boosted darunavir continue wound care Will follow Praveena Colunga MD Infectious Diseases [employer] [facility] M [phone] O [phone] Subjective Date of service: 12/03/18 Principal diagnosis: anemia Interval history: Patient is alert follows commands noted fever 101.1 and tachycardia, denies cough, SOB, N/D/V Review of Systems: unable to obtain Objective - Exam Narrative Exam: General appearance: alert in NAD, follows commands on HD Eyes: anicteric sclerae, moist conjunctivae; no lid-lag; PERRLA HENT: Atraumatic; oropharynx limited Neck: Trachea midline; supple, no thyromegaly or lymphadenopathy Lungs: CTA, with normal respiratory effort and no intercostal retractions CV: tachycardic Abdomen: Soft, non-tender;+SP cath Extremities: No peripheral edema or extremity lymphadenopathy Skin: Normal temperature, turgor and texture; no rash, ulcers or subcutaneous nodules Psych: alert no agitated Neuro: alert follows commands Right IJ HD - Constitutional Vitals: Vital Signs Temp Pulse Resp BP Pulse Ox 98.8 F 127 H 18 116/93 99 12/03/18 13:30 12/03/18 16:15 12/03/18 13:30 12/03/18 16:15 12/03/18 11:38 Temperature -Last 24 Hours Temperature 98.8 F Temperature 99.2 F Temperature 98.9 F Temperature 98.1 F Temperature 98.8 F Temperature 101.1 F - Labs CBC & Chem 7: 11/29/18 05:15 11/29/18 05:15
[2018-12-03] MEDS: HEPARIN IV PRN (17:23)
[2018-12-03 19:06] LABS: Bacteria,Urine 4+ /HPF (Negative); Bilirubin,Urine NEG (Negative); Blood,Urine SM (Negative); Color,Urine Yellow (Yellow); Urobilinogen,Urine < 2.0 mg/dL (<2.0)
[2018-12-03 19:07] LABS: RBC,Urine > 182.0 /HPF (0.0-6.0); WBC,Urine > 182.0 /HPF (0.0-6.0)
--- NOTE | 2018-12-03 23:44 | XRay Report ---
PROCEDURE: XR CHEST ROUTINE 2V TECHNIQUE: 2 view chest HISTORY: fever eval for pneumonia COMPARISONS: Chest x-ray November 04, 2018 FINDINGS: Right internal jugular line with tip cavoatrial junction. No pneumothorax. No sizable effusion. No ac laurie airspace disease. Markings remain prominent. No acute bony abnormality. IMPRESSION: Interval placement right central line. Adequate position. No pneumothorax. No acute airspace disease. This document is electronically signed by Abel Wise MD., December 03 2018 11:43:11 PM ET
[2018-12-04] MEDS: LOPRESSOR PO SCH ×4 (00:06→17:53)
[2018-12-04] MEDS: HEPARIN SUB-Q SCH ×3 (05:50→22:05)
[2018-12-04 07:59] LABS: Calcium 9.1 mg/dL (8.4-10.2)
--- NOTE | 2018-12-04 09:27 | Progress Note ---
Assessment and Plan Cultures: Blood culture 10/10/2018 no growth. Sputum culture 10/10/2018 Ana Paula albicans. Crypto Ag 10/10/2018 neg. Urine culture 10/13/2018 no growth. Blood culture 10/17/2018 no growth. Blood culture 10/20/2018: no growth Stool Occult Blood 10/23/18: positive Blood culture 10/29/18: negative Urine culture 10/31/18: Ana Paula Blood culture 11/05/18: No growth Blood culture 11/14/18: no growth Blood culture 12/03/18: in progress Urine cuture 12/03/18 : 10- 100,000 CFU/ml of normal skin eric Assessment: 43 y/o male with history of HIV (unknown CD4/VL/ART intake), HTN, CVA 6 months ago at [place], Nicotine Dependence, Malnutrition; admitted on 10/10/2018 due to AMS (confusion/lethargy) and slurred speech for 24 h: 1) SIRS versus sepsis :Fever trending down, 100.4, likely from UTI. - CXR neg - BNP 70K - Troponin 0.2 - LDH 2242 -chest CT :Patchy airspace disease in the right lower lobe compatible with pneumonia. No evidence of pleural effusion. -repeat CXR : clear lungs and normal bony and soft tissue structures. Patchy airspace disease in the right lower lobe has resolved since 11/07/18 2) Acute hypoxemic respiratory failure:resolved 3) Acute encephalopathy: Improved.; multifactorial ?from hypertensive urgency +/- brain opportunistic infection. DDx: Neurosyphilis, VZV/CMV encephalitis versus BUFFING WHEEL PRESSER lymphoma versus less likely PML v/s ischemic CVA (seems more likely) - CT head showed bilateral chronic ischemic changes. - Brain MRI showed areas of edema in the basal ganglia and thalami bilaterally, within the jamari and in the cerebral hemispheres bilaterally in the subcortical and deep white matter and in portions of the cortex, areas of encephalomalacia in the basal ganglia bilaterally with evidence of previous hemorrhage or mineral deposition and numerous small foci of acute infarct in the basal ganglia bilaterally, subinsular regions bilaterally and medial temporal lobes bilaterally and possibly in the occipital cortex bilaterally. - Brain MRA showed possible dissection versus artifact at the basilar artery. Luminal irregularity at the anterior, middle, and posterior cerebral arteries as well as the carotid siphons may represent mild to moderate atherosclerotic disease. More notable narrowing at the distal right A1 segment. Differential diagnosis includes motion artifact and vasculitis. Vertebral arteries are not clearly visualized. - CSF wbc 4, rbc 113, Seg 8%, Lymph 76%, protein 55, glucose 73 which is not c/w meningitis - RPR reactive 1:32 / FTA ABs reactive, treated with penicillin and ceftriaxone but CSF VDRL Non reactive. - Toxoplasma IgG negative, CSF Toxoplasma PCR: negative - Blood CMV DNA VL=1,370, 3.1 log on ganciclovir - likely reactivation - Repeat CMV DNA PCR 10/24/2018: <200. Off ganciclovir. - Glucan Assay: negative 4) Anemia/thrombocytopenia: improving. 5) Acute on CKD or SHRUTHI ? unclear etiology: on HD. RIJ permacath placement 6) DM: uncontrolled. 7) HIV/AIDS: VL 320,000 / CD4=3 on 10/11/2018 --> VL=47 / CD4=6 on 11/28/2018. 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 Started HIV treatment on 10/30/2018. Continue HIV therapy,renally adjusted TDF, FTC along with dolutegravir and ritonavir boosted darunavir. 8) Decubitus Ulcers: Left buttocks wound measures 9.0 x 2.5, Sacral wound measures 3.5 x 3.5, 80 % necrotic tissue, Right buttocks wound measures 5.0 x 3.[address] Go to perform bedside debridement of sacral pressure ulcer 11/29/18. 9) UTI: with a SP catheter/regan placed 10/12/18, needs to be exchanged. Urine culture growing 10- 100,000 of normal skin eric. U/A with pyuria WBC >182, Moderate LE. Recommendations: Urology consult due to UTI Suprapubic catheter/regan. SP cath placed on 10/12/18 needs to be exchanged f/u repeat blood culture and CXR continue to monitor fever continue atovaquone 750 mg BID continue HIV therapy: renally adjusted TDF, FTC along with dolutegravir and ritonavir boosted darunavir continue wound care Start ceftriaxone 1 gm every 24 for UTI [facility] M: [phone] O:[phone] Subjective Date of service: 12/04/18 Principal diagnosis: anemia Interval history: Patient seen and examined. Awake, alert. Non-conversant today, but answers questions by nodding his head. Low grade fevers. Objective - Exam Narrative Exam: General appearance: Awake, Alert, No acute distress Eyes: anicteric sclerae, moist conjunctivae; no lid-lag; PERRLA HENT: Atraumatic; oropharynx limited Neck: Trachea midline; supple, no thyromegaly or lymphadenopathy Lungs: CTA, with normal respiratory effort CV: tachycardic Abdomen: Soft, non-tender;+SP cath Extremities: No peripheral edema , + contractures bilateral lower extremities Skin: Normal temperature, turgor and texture; no rash, ulcers or subcutaneous nodules Psych: affect: Flat Neuro: Improved, following simple commands - Constitutional Vitals: Vital Signs Temp Pulse Resp BP Pulse Ox 100.4 F H 120 H 16 134/95 100 12/04/18 05:45 12/04/18 05:50 12/04/18 06:00 12/04/18 05:50 12/04/18 05:45 Temperature -Last 24 Hours Temperature 100.4 F Temperature 98.9 F Temperature 98.9 F Temperature 98.9 F Temperature 98.8 F Temperature 99.2 F - Labs CBC & Chem 7: 11/29/18 05:15 12/04/18 06:15 Labs: Abnormal lab results 12/03/18 12/04/18 Range/Units 18:33 06:15 Chloride 93.6 L (98-107) mmol/L Creatinine 3.3 H (0.8-1.5) mg/dL Glucose 118 H (75-100) mg/dL Urine WBC (Auto) > 182.0 H (0.0-6.0) /HPF
[2018-12-04] MEDS: ZOLOFT PO SCH (11:09)
[2018-12-04] MEDS: NORVIR PO SCH (11:09)
[2018-12-04] MEDS: THERAGRAN Tab PO SCH (11:09)
[2018-12-04] MEDS: PROTONIX PO SCH (11:09)
[2018-12-04] MEDS: PREZISTA PO SCH (11:10)
[2018-12-04] MEDS: TIVICAY PO SCH (11:10)
[2018-12-04] MEDS: MEPRON PO SCH (11:10)
[2018-12-04] MEDS: SODIUM CHLORIDE FLUSH SYRINGE 10 ML IV SCH ×2 (11:11→22:52)
[2018-12-04] MEDS: METAMUCIL PO SCH (11:12)
--- NOTE | 2018-12-04 13:11 | Progress Note ---
Assessment and Plan - Patient Problems (1) Acute kidney injury Current Visit: Yes Status: Acute Plan to address problem: Acute kidney injury : severe Now dialysis dependent. I reviewed renal Ultrasound with 10.1cm and 10.8cm kidneys bilateral echogenic Possible aetiologies of Acute kidney injury is likely 2/2 acute tubular injury ,possible underlying HIV associated nephropathy cannot be excluded . He is currently oliguric currently dialysis dependent. Currently has tunneled dialysis catheter appreciate Vascular surgery assistance. Avoid Nephrotoxic medications. 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 Hb: 7.7g/dl Epogen 20,000 units Monitor CBC. (3) HIV (human immunodeficiency virus infection) Current Visit: Yes Status: Acute Qualifiers: HIV symptom status: symptomatic Qualified Code(s): B20 - Human immunodeficiency virus [HIV] disease Plan to address problem: HIV/ AIDS - has been treated for infection Still spiking fevers 100.4F today. - infectious disease on board . (4) Tachycardia Current Visit: Yes Status: Acute Plan to address problem: Past Persistent febrile episodes EKG reviewed sinus tachycardia Subjective Principal diagnosis: anemia Interval history: 43 year old gentleman with medical history significant for HIV admitted with Sepsis , acute hypoxemic respiratory failure , Encephalopathy , transaminitis and worsening renal failure . Patient seen this morning Denies any ongoing diarrhea Has a right IJ tunneled dialysis catheter has a regan catheter . Still with low grade temperature Objective - Vital Signs Vital signs: Vital Signs - 12hr 12/04/18 12/04/18 12/04/18 05:45 05:50 06:00 Temperature 100.4 F H Pulse Rate 120 H 120 H Respiratory 20 Rate Respiratory 16 Rate [Bilateral Leg] Blood Pressure 134/95 134/95 O2 Sat by Pulse 100 Oximetry 12/04/18 12:47 Temperature 99.4 F Pulse Rate 118 H Respiratory 16 Rate Respiratory Rate [Bilateral Leg] Blood Pressure 130/87 O2 Sat by Pulse 100 Oximetry - General Appearance General appearance: cachectic, chronically ill, frail EENT: ATNC, PERRL Neck: no JVD Respiratory: Present: Clear to Ascultation Cardiology: S1S2 Gastrointestinal: normal, normoactive bowel sounds Neurologic: CN 3-12 intact, other (awake and alert. ) Psychiatric: mood/affect appropriate - Lab 11/29/18 05:15 12/04/18 06:15 Most recent lab results Calcium 9.1 mg/dL (8.4-10.2) 12/04/18 06:15 Phosphorus 6.50 mg/dL (2.5-4.5) H 11/24/18 10:53 Magnesium 3.10 mg/dL (1.7-2.3) H 10/18/18 05:03 Urine Creatinine 30.8 mg/dL (0.1-20.0) H 10/13/18 04:43 Urine Sodium 106 mmol/L 10/13/18 04:43 Urine Total Protein 75 mg/dL (5-11.8) H 10/13/18 04:43 - Imaging Chest x-ray: image reviewed (I reviewed CXR with hazy opacities. ) Medications & Allergies - Medications Allergies/Adverse Reactions: Allergies Sulfa (Sulfonamide Antibiotics) Allergy (Verified 10/10/18 16:54) Unknown Home Medications: Home Medications Medication Instructions Recorded Confirmed Last Taken Type Acetaminophen [Tylenol] 1,000 mg PO Q6HR 10/10/18 10/10/18 Unknown History Amlodipine Besylate [Norvasc] 10 mg PO QDAY 10/10/18 10/10/18 Unknown History Aspirin [Adult Aspirin] 81 mg PO DAILY 10/10/18 10/10/18 Unknown History Atorvastatin [Lipitor Tab] 80 mg PO DAILY 10/10/18 10/10/18 Unknown History Losartan [Cozaar] 100 mg PO QDAY 10/10/18 10/10/18 Unknown History Multivitamin [Multiple Vitamins] 1 each PO DAILY 10/10/18 10/10/18 Unknown History hydroCHLOROthiazide [HCTZ] 25 mg PO QDAY 10/10/18 10/10/18 Unknown History Active Medications: Generic Name Dose Route Start Last Admin Trade Name Freq PRN Reason Stop Dose Admin Acetaminophen 500 mg 10/16/18 10:02 12/02/18 17:38 Tylenol PO 500 mg Q6H PRN Administration Fever >101 Albumin Human 25 gm 11/04/18 16:14 Alburx 25% (Albumin) IV CHON PRN Hypotension Albuterol 2.5 mg 11/21/18 07:24 Proventil IH Q4HRT PRN Shortness Of Breath Lipase/Protease/Amylase 1 each 10/11/18 12:58 Pancreaze 10,500 Unit FEEDTUBE PRN PRN For Clogged Feeding Tube Atovaquone 1,500 mg 11/14/18 10:00 12/04/18 11:10 Mepron PO 1,500 mg QDAY RUBI Administration Darunavir 800 mg 10/30/18 18:00 12/04/18 11:10 Prezista PO 800 mg QDAY RUBI Administration Emtricitabine 200 mg 11/01/18 10:00 12/03/18 09:13 Emtriva PO 200 mg Q48HR RUBI Administration Epoetin Dany 20,000 unit 11/12/18 15:00 11/28/18 15:52 Procrit IV 20,000 unit .MWF RUBI Administration Heparin Sodium (Porcine) 5,000 unit 11/04/18 16:15 12/03/18 17:23 Heparin IV 5,000 unit CHON PRN Administration hemodialysis Heparin Sodium (Porcine) 5,000 unit 11/07/18 22:00 12/04/18 05:50 Heparin SUB-Q 5,000 unit Q8HR RUBI Administration Hydrophilic Ointment 1 applic 10/10/18 17:53 Vaseline Lip Therapy TP Q2HR PRN Dry Lips Sodium Chloride 100 mls @ 999 mls/hr 11/12/18 09:51 Nacl 0.9% IV CHON PRN Hypotension Ipratropium Gay 0.5 mg 11/20/18 22:07 Atrovent IH Q4HRT PRN Shortness Of Breath Metoprolol Tartrate 5 mg 10/18/18 14:05 12/02/18 05:47 Lopressor IV 5 mg Q6HR PRN Administration Tachyarrhythmias Metoprolol Tartrate 25 mg 11/24/18 13:00 12/04/18 11:11 Lopressor PO 25 mg Q6HR RUBI Administration Multi-Ingred Cream/Lotion/Oil/Oint 1 applic 10/10/18 17:53 Artificial Tears Ophth Oint OU Q4HR PRN Dry Eye(s) Multivitamins 1 each 10/11/18 10:00 04/23/19 11:09 Theragran Tab PO 1 each DAILY RUBI Administration Ondansetron HCl 4 mg 11/12/18 15:05 Zofran IV Q8H PRN N/V unrelieved by Buddy Pantoprazole Sodium 40 mg 12/03/18 10:00 12/04/18 11:09 Protonix PO 40 mg DAILY RUBI Administration Psyllium Hydrophilic Mucilloid 1 each 11/08/18 18:00 12/04/18 11:12 Metamucil PO Not Given QDAY RUBI Ritonavir 100 mg 10/30/18 18:00 12/04/18 11:09 Norvir PO 100 mg QDAY RUBI Administration Sertraline HCl 50 mg 11/21/18 19:52 12/04/18 11:09 Zoloft PO 50 mg QDAY RUBI Administration Simple Syrup 15 ml 10/11/18 12:58 Simple Syrup FEEDTUBE PRN PRN Hypoglycemia Simple Syrup 30 ml 10/11/18 12:58 Simple Syrup FEEDTUBE PRN PRN Hypoglycemia Sodium Bicarbonate 325 mg 10/11/18 12:58 Sodium Bicarbonate FEEDTUBE PRN PRN For Clogged Feeding Tube Sodium Chloride 10 ml 10/10/18 22:00 12/04/18 11:11 Sodium Chloride Flush Syringe 10 Ml IV 10 ml BID RUBI Administration Sodium Chloride 10 ml 10/10/18 18:12 Sodium Chloride Flush Syringe 10 Ml IV PRN PRN LINE FLUSH Tenofovir Disoproxil Fumarate 300 mg 10/30/18 17:45 12/01/18 19:36 Viread PO 300 mg Q96H RUBI Administration
[2018-12-04] MEDS: ROCEPHIN/NS 1 GM/50 ML 1 GM/50 ML BAG IV SCH (16:31)
--- NOTE | 2018-12-04 17:04 | Progress Note ---
Assessment and Plan Assessment and plan: Patient is 43 YO Male with HIV, hypertension, previous stroke, Nicotine Dependence, presents to ED for evaluation. Patient was confused and lethargic and unable to provide history. He was seen and evaluated in ED and found to be in distress and unable to protect his airway and was therefore intubated, placed on ventilator and admitted to ICU. Patient diagnosed with acute resp failure, renal failure(acute vs acute on chronic) , Encephalopathy, Acidosis. He is followed by ID Physician for HIV/AIDS. His renal failure worsened therefore started on hemodialysis for SHRUTHI due to ATN, now ESRD. He has had a prolonged course, diagnosed with acute resp failure, sepsis , toxic metabolic encephalopathy. He is on HAART. Physical therapy reports high fall risk and the need for maximal assist. patient is currently extubated. Acute encephalopathy multifactorial ?from hypertensive urgency +/- brain opportunistic infection. DDx: Neurosyphilis, VZV/CMV encephalitis versus MINE CAPTAIN lymphoma versus less likely PML v/s ischemic CVA (seems more likely) improving - CT head showed bilateral chronic ischemic changes. - Brain MRI showed areas of edema in the basal ganglia and thalami bilaterally, within the jamari and in the cerebral hemispheres bilaterally in the subcortical and deep white matter and in portions of the cortex, areas of encephalomalacia in the basal ganglia bilaterally with evidence of previous hemorrhage or mineral deposition and numerous small foci of acute infarct in the basal ganglia bilaterally, subinsular regions bilaterally and medial temporal lobes bilaterally and possibly in the occipital cortex bilaterally. - Brain MRA showed possible dissection versus artifact at the basilar artery. Luminal irregularity at the anterior, middle, and posterior cerebral arteries as well as the carotid siphons may represent mild to moderate atherosclerotic disease. More notable narrowing at the distal right A1 segment. Differential diagnosis includes motion artifact and vasculitis. Vertebral arteries are not clearly visualized. - CSF wbc 4, rbc 113, Seg 8%, Lymph 76%, protein 55, glucose 73 which is not c/w meningitis - RPR reactive 1:32 / FTA ABs reactive, treated with penicillin and ceftriaxone but CSF VDRL Non reactive. - Toxoplasma IgG negative, CSF Toxoplasma PCR: negative - Blood CMV DNA VL=1,370, 3.1 log on ganciclovir - likely reactivation - Repeat CMV DNA PCR 10/24/2018: <200. Off ganciclovir. - Glucan Assay: negative Consulted Neurology, he was evaluated by DR. Valentine. mentation is improved, and this is likely his new baseline Dysphagia/ moderate malnutrition -MBS 10/23, recommended pureed with nectar thickened liquids, continue this diet -housing inspectors consulted Anemia/thrombocytopenia, leukocytosis, coagulopathy; now resolved -Status post platelet (3 units) and prbc (6 units ) transfusion, the patient had only few schistocytes on smear, ADAMS13 91% activity plt count has recovered HIV/AIDS, CD4 count 3, HIV viral load 320,000 Sepsis acute bacterial PNA, CMV viremia toxo neg, CSF neg ,Whole blood cmv PCR was positive at 1374 abx and anti- antiviral per ID,continues to have fever on and off chest CT :Patchy airspace disease in the right lower lobe compatible with pneumonia. No evidence of pleural effusion. -repeat CXR : clear lungs and normal bony and soft tissue structures. Patchy airspace disease in the right lower lobe has resolved since 11/07/18 Continues on atovaquone as prophylaxis. Patient has sulfa allergy. Oral candidiasis, nystatin swish and spit ordered x 7 days SHRUTHI/ATN now ESRD Continue hemodialysis per nephrology. Hyperkalemia, resolved Severe protein calorie malnutrition -dietitican consulted Acute hypoxic resp failure on MV> 96 hours self extubated 10/16, continue supplemental oxygen prn CTA neg for PE on 11/06 Acute on chronic systolic CHF He was treated with Cardene drip which was weaned off. Optimize medications for CHF on coreg, no mik due to high K, fluid removal by dialysis Stage 2 sacral wound decub, and bilat buttock wounds left buttocks area. The wound is measured at 9.0x2.5. 25% slough noticed to the wound sacral area. The wound is measured at 3.5x3.5.80% necrotic tissue noticed to the wound right buttocks area. The wound is measured at 5.0x3.0. no evidence of infection, but wounds are necrotic, cont wound care Depression input appreciated, he is improving Severe debility; he was previously refusing PT and not participating. He agrees to be more complaints of physical therapy. he is now participating with PT, contractures are improving DVT ppx- heparin sq Disposition: Physical therapy reports high fall risk and the need for maximal assist. His partner didn't answer calls. I called his mother at [phone] and she said she is not able to help him because she is taking care of her 86 year old dad. She said his partner will be back with in 2-3 days History Interval history: Patient was seen and evaluated at the bedside, patient is very weak and answer questions very slowly. Hospitalist Physical - Physical exam Narrative exam: Not in cardiopulmonary distress. The patient is emaciated. Vital signs as documented. Head exam is unremarkable. No scleral icterus . Neck is without jugular venous distension, thyromegaly, or carotid bruits. Lungs are clear to auscultation. Cardiac exam reveals regular rate and Rhythm. Abdominal exam reveals normal bowel sounds. Extremities are nonedematous. MINE CAPTAIN: Alert and oriented 3. No focal weakness. - Constitutional Vitals: Temp Pulse Resp BP Pulse Ox 99.4 F 118 H 16 130/87 100 12/04/18 12:47 12/04/18 12:47 12/04/18 12:47 12/04/18 12:47 12/04/18 12:47 General appearance: Present: no acute distress, cachectic Results - Labs CBC & Chem 7: 11/29/18 05:15 12/04/18 06:15 Labs: Laboratory Last Values WBC 7.0 K/mm3 (4.5-11.0) 11/29/18 05:15 RBC 2.70 M/mm3 (3.65-5.03) L 11/29/18 05:15 Hgb 7.7 gm/dl (11.8-15.2) L 11/29/18 05:15 Hct 24.6 % (35.5-45.6) L 11/29/18 05:15 MCV 91 fl (84-94) 11/29/18 05:15 MCH 29 pg (28-32) 11/29/18 05:15 MCHC 31 % (32-34) L 11/29/18 05:15 RDW 21.3 % (13.2-15.2) H 11/29/18 05:15 Plt Count 223 K/mm3 (140-440) 11/29/18 05:15 Lymph % (Auto) [employer] 11/24/18 00:09 [place] % (Auto) [employer] 11/24/18 00:09 Eos % (Auto) [employer] 11/24/18 00:09 Baso % (Auto) [employer] 11/24/18 00:09 Lymph # [employer] 11/24/18 00:09 [place] # [employer] 11/24/18 00:09 Eos # [employer] 11/24/18 00:09 Baso # [employer] 11/24/18 00:09 Add Manual Diff Complete 11/29/18 05:15 Total Counted 100 11/29/18 05:15 Seg Neutrophils % [employer] 11/24/18 00:09 Seg Neuts % (Manual) 87.0 % (40.0-70.0) H 11/29/18 05:15 Band Neutrophils % 0 % 11/29/18 05:15 Lymphocytes % (Manual) 3.0 % (13.4-35.0) L 11/29/18 05:15 Reactive Lymphs % (Man) 2.0 % 11/29/18 05:15 Monocytes % (Manual) 4.0 % (0.0-7.3) 11/29/18 05:15 Eosinophils % (Manual) 1.0 % (0.0-4.3) 11/29/18 05:15 Basophils % (Manual) 2.0 % (0.0-1.8) H 11/29/18 05:15 Metamyelocytes % 1.0 % 11/29/18 05:15 Myelocytes % 0 % 11/29/18 05:15 Promyelocytes % 0 % 11/29/18 05:15 Blast Cells % 0 % 11/29/18 05:15 Nucleated RBC % 1.0 % (0.0-0.9) H 11/29/18 05:15 Seg Neutrophils # [employer] 11/24/18 00:09 Seg Neutrophils # Man 6.1 K/mm3 (1.8-7.7) 11/29/18 05:15 Band Neutrophils # 0.0 K/mm3 11/29/18 05:15 Abs Lymphs (Manual) 519 cells/uL (850-3900) L 11/28/18 06:46 Lymphocytes # (Manual) 0.2 K/mm3 (1.2-5.4) L 11/29/18 05:15 Abs React Lymphs (Man) 0.1 K/mm3 11/29/18 05:15 Monocytes # (Manual) 0.3 K/mm3 (0.0-0.8) 11/29/18 05:15 Eosinophils # (Manual) 0.1 K/mm3 (0.0-0.4) 11/29/18 05:15 Basophils # (Manual) 0.1 K/mm3 (0.0-0.1) 11/29/18 05:15 Metamyelocytes # 0.1 K/mm3 11/29/18 05:15 Myelocytes # 0.0 K/mm3 11/29/18 05:15 Promyelocytes # 0.0 K/mm3 11/29/18 05:15 Blast Cells # 0.0 K/mm3 11/29/18 05:15 Pathologist Review 10/15/18 03:14 WBC Morphology Not Reportable 11/29/18 05:15 Hypersegmented Neuts Not Reportable 11/29/18 05:15 Hyposegmented Neuts Not Reportable 11/29/18 05:15 Hypogranular Neuts Not Reportable 11/29/18 05:15 Smudge Cells Not Reportable 11/29/18 05:15 Toxic Granulation Not Reportable 11/29/18 05:15 Toxic Vacuolation Not Reportable 11/29/18 05:15 Dohle Bodies Not Reportable 11/29/18 05:15 Pelger-Huet Anomaly Not Reportable 11/29/18 05:15 Kartik Rods Not Reportable 11/29/18 05:15 Platelet Estimate Consistent w auto 11/29/18 05:15 Clumped Platelets Not Reportable 11/29/18 05:15 Plt Clumps, EDTA Not Reportable 11/29/18 05:15 Large Platelets 1+ 11/29/18 05:15 Giant Platelets Not Reportable 11/29/18 05:15 Platelet Satelliting Not Reportable 11/29/18 05:15 Plt Morphology Comment Not Reportable 11/29/18 05:15 RBC Morphology Not Reportable 11/29/18 05:15 Dimorphic RBCs Not Reportable 11/29/18 05:15 Polychromasia Not Reportable 11/29/18 05:15 Hypochromasia Not Reportable 11/29/18 05:15 Poikilocytosis 1+ 11/29/18 05:15 Anisocytosis 1+ 11/29/18 05:15 Microcytosis Not Reportable 11/29/18 05:15 Macrocytosis 1+ 11/29/18 05:15 Spherocytes Not Reportable 11/29/18 05:15 Pappenheimer Bodies Not Reportable 11/29/18 05:15 Sickle Cells Not Reportable 11/29/18 05:15 Target Cells Not Reportable 11/29/18 05:15 Tear Drop Cells Not Reportable 11/29/18 05:15 Ovalocytes Few 11/29/18 05:15 Stomatocytes Few 11/10/18 06:54 Helmet Cells Not Reportable 11/29/18 05:15 [place] Bodies Not Reportable 11/29/18 05:15 [place] Rings Not Reportable 11/29/18 05:15 Jani Cells Not Reportable 11/29/18 05:15 Bite Cells Not Reportable 11/29/18 05:15 Crenated Cell Not Reportable 11/29/18 05:15 Elliptocytes 1+ 11/29/18 05:15 Acanthocytes (Spur) Not Reportable 11/29/18 05:15 Rouleaux Not Reportable 11/29/18 05:15 Hemoglobin C Crystals Not Reportable 11/29/18 05:15 Schistocytes Not Reportable 11/29/18 05:15 Malaria parasites Not Reportable 11/29/18 05:15 Jv Bodies Not Reportable 11/29/18 05:15 Hem Pathologist Commnt No 11/29/18 05:15 PT 17.7 Sec. (12.2-14.9) H 11/06/18 13:18 INR 1.36 (0.87-1.13) H 11/06/18 13:18 APTT 30.6 Sec. (24.2-36.6) 11/06/18 13:18 Thrombin Time 16.9 Sec. (15.1-19.6) 10/10/18 15:02 Heparin Anti-Xa Level < 0.10 U.I./ml (0.3-0.7) L 11/07/18 21:31 Heparin Anti-Xa, Unfract Negative (Negative) 10/25/18 05:59 POC ABG pH 7.455 (7.35-7.45) H 11/23/18 13:46 POC ABG pCO2 32.0 (35-45) L 10/21/18 09:49 POC ABG pO2 111 (80-105) H 11/23/18 13:46 POC ABG HCO3 17.3 (22-26 mml/L) 11/23/18 13:46 POC ABG Total CO2 18 (23-27mmol/L) 11/23/18 13:46 POC ABG O2 Sat 99 11/23/18 13:46 POC ABG Base Excess -7 ((-2) - (+3)mmol/L) 11/23/18 13:46 FiO2 21 % 11/23/18 13:46 Sodium 138 mmol/L (137-145) 12/04/18 06:15 Potassium 3.9 mmol/L (3.6-5.0) 12/04/18 06:15 Chloride 93.6 mmol/L (98-107) L 12/04/18 06:15 Carbon Dioxide 26 mmol/L (22-30) 12/04/18 06:15 Anion Gap 22 mmol/L 12/04/18 06:15 BUN 18 mg/dL (9-20) 12/04/18 06:15 Creatinine 3.3 mg/dL (0.8-1.5) H 12/04/18 06:15 Estimated GFR 25 ml/min 12/04/18 06:15 BUN/Creatinine Ratio 5 % 12/04/18 06:15 Glucose 118 mg/dL (75-100) H 12/04/18 06:15 POC Glucose 110 (70-105) H 11/23/18 13:35 Osmolality 338 Mosm/kg 10/11/18 17:35 Lactic Acid 1.80 mmol/L (0.7-2.0) 10/12/18 05:59 Uric Acid 13.4 mg/dL (3.5-7.6) H 10/11/18 17:36 Calcium 9.1 mg/dL (8.4-10.2) 12/04/18 06:15 Phosphorus 6.50 mg/dL (2.5-4.5) H 11/24/18 10:53 Magnesium 3.10 mg/dL (1.7-2.3) H 10/18/18 05:03 Iron 147 ug/dL (49-181) 10/11/18 17:36 TIBC 236 mcg/dL (250-450) L 10/11/18 17:36 Ferritin 98335.0 ng/mL (13.0-400.0) H 10/11/18 17:35 Total Bilirubin 0.30 mg/dL (0.1-1.2) 11/19/18 05:31 Direct Bilirubin 0.2 mg/dL (0-0.2) 10/16/18 04:07 Indirect Bilirubin 0.3 mg/dL 10/16/18 04:07 AST 26 units/L (5-40) 11/19/18 05:31 ALT 11 units/L (7-56) 11/19/18 05:31 Alkaline Phosphatase 74 units/L (35-129) 11/19/18 05:31 Ammonia 25.0 umol/L (25-60) 10/17/18 14:59 Lactate Dehydrogenase 925 units/L (91-180) H 10/22/18 05:51 Troponin T 0.357 ng/mL (0.00-0.029) H* 11/06/18 05:54 NT-Pro-B Natriuret Pep 91771 pg/mL (0-450) H 10/10/18 15:42 Total Protein 7.6 g/dL (6.3-8.2) 11/19/18 05:31 Albumin 2.6 g/dL (3.9-5) L 11/19/18 05:31 Albumin/Globulin Ratio 0.5 % 11/19/18 05:31 Triglycerides 306 mg/dL (2-149) H 11/05/18 11:29 Cholesterol 145 mg/dL (50-199) 11/05/18 11:29 LDL Cholesterol Direct 89 mg/dL (50-130) 11/05/18 11:29 HDL Cholesterol 25 mg/dL (40-59) L 11/05/18 11:29 Cholesterol/HDL Ratio 5.80 % 11/05/18 11:29 Serotonin Release Assay See scanned result 10/25/18 05:59 Vitamin B12 912.3 pg/mL (211-911) H 10/14/18 08:51 Folate 8.32 ng/mL (7.3-26.0) 10/14/18 08:51 PTH Intact 118.0 pg/mL (15-65) H 11/24/18 10:53 Urine Color Yellow (Yellow) 12/03/18 18:33 Urine Turbidity Turbid (Clear) 12/03/18 18:33 Urine pH 7.0 (5.0-7.0) 12/03/18 18:33 Ur Specific [place] 1.021 (1.003-1.030) 12/03/18 18:33 Urine Protein 100 mg/dl mg/dL (Negative) 12/03/18 18:33 Urine Glucose (UA) Neg mg/dL (Negative) 12/03/18 18:33 Urine Ketones Neg mg/dL (Negative) 12/03/18 18:33 Urine Blood Sm (Negative) 12/03/18 18:33 Urine Nitrite Neg (Negative) 12/03/18 18:33 Urine Bilirubin Neg (Negative) 12/03/18 18:33 Urine Urobilinogen < 2.0 mg/dL (<2.0) 12/03/18 18:33 Ur Leukocyte Esterase Mod (Negative) 12/03/18 18:33 Urine WBC (Auto) > 182.0 /HPF (0.0-6.0) H 12/03/18 18:33 Urine RBC (Auto) > 182.0 /HPF (0.0-6.0) 12/03/18 18:33 Urine Bacteria (Auto) 4+ /HPF (Negative) 12/03/18 18:33 Urine WBC Clumps 3+ /HPF 12/03/18 18:33 Ur Yeast w Hyphae 1+ /HPF 12/03/18 18:33 Urine Yeast (Budding) 3+ /HPF 12/03/18 18:33 Urine Creatinine 30.8 mg/dL (0.1-20.0) H 10/13/18 04:43 Urine Sodium 106 mmol/L 10/13/18 04:43 Urine Total Protein 75 mg/dL (5-11.8) H 10/13/18 04:43 CSF Appearance Clear 10/16/18 15:00 CSF Color Colorless 10/16/18 15:00 CSF WBC 4 /mm3 (1-10) 10/16/18 15:00 CSF RBC 113 /mm3 (0-0) 10/16/18 15:00 CSF Seg Neutrophils 8.0 % (0-6) 10/16/18 15:00 CSF Lymphocytes % 76.0 % (40-80) 10/16/18 15:00 CSF Reactive Lymphs 2.0 % 10/16/18 15:00 CSF Monocytes % 14.0 % (15-45) 10/16/18 15:00 CSF Eosinophils % 0 % 10/16/18 15:00 CSF Basophils 0 % 10/16/18 15:00 CSF Pathologist Review C 10/16/18 15:00 CSF Glucose 73 mg/dL 10/16/18 15:00 CSF Total Protein 55 mg/dL 10/16/18 15:00 CSF VDRL Nonreactive (Nonreactive) 10/16/18 15:00 Random Vancomycin 21.1 ug/mL (0-40.0) 11/20/18 06:15 Immunofix Electrophor see below 10/11/18 17:36 RENO Screen Negative (Negative) 10/21/18 15:07 Proteinase 3 (PR3) Ab <1.0 AI (<1.0) 10/21/18 15:07 Myeloperoxidase Ab <1.0 AI (<1.0) 10/21/18 15:07 Heparin-induced Plt Ab Negative (Negative) 10/25/18 05:59 UF Heparin High Dose 0 % Release 10/25/18 05:59 VJ UFH Low Dose 0.1 0 % Release 10/25/18 05:59 VJ UFH Low Dose 0.5 14 % Release 10/25/18 05:59 Lymph Enumerat CD4/CD8 0.01 (0.86-5.00) L 11/28/18 06:46 % CD3 Cells 71 % (57-85) 11/28/18 06:46 Absolute CD3 Count 370 cells/uL (840-3060) L 11/28/18 06:46 % CD4 Cells 1 % (30-61) L 11/28/18 06:46 Absolute CD4 Count 6 cells/uL (490-1740) L 11/28/18 06:46 % CD8 Cells 67 % (12-42) H 11/28/18 06:46 Absolute CD8 Count 352 cells/uL (180-1170) 11/28/18 06:46 % CD19 Cells 4 % (6-29) L 11/28/18 06:46 Absolute CD19 Count 23 cells/uL (110-660) L 11/28/18 06:46 RPR Titer 1:32 10/11/18 17:37 RPR Reactive (Nonreactive) 10/11/18 17:37 T.pallidum Ab (FTA-ABS) Reactive (Nonreactive) H 10/12/18 Unknown CMV DNA PCR log endoscopy technican/mL See scanned result 10/24/18 17:47 Hepatitis A IgM Ab Non-reactive (NonReactive) 11/21/18 09:58 Hep Bs Antigen Non-reactive (Negative) 11/21/18 09:58 Hep B Core IgM Ab Non-reactive (NonReactive) 11/21/18 09:58 Hepatitis C Antibody Non-reactive (NonReactive) 11/21/18 09:58 HIV-1 RNA PCR copies/ml 47 Copies/mL H 11/28/18 06:46 HIV-1 RNA (PCR) log 1.67 Log cps/mL H 11/28/18 06:46 HIV-1 Genotyping See scanned results 10/29/18 19:48 Toxoplasma IgG Ab <7.20 IU/mL (<7.20) 10/13/18 07:54 Miscellaneous Test Flexitest 1 10/31/18 06:43 Blood Type A POSITIVE 11/08/18 11:28 Antibody Screen Negative 11/08/18 11:28 Crossmatch See Detail 11/08/18 11:28 Active Medications - Current Medications Current Medications: Generic Name Dose Route Start Last Admin Trade Name Freq PRN Reason Stop Dose Admin Acetaminophen 500 mg 10/16/18 10:02 12/02/18 17:38 Tylenol PO 500 mg Q6H PRN Administration Fever >101 Albumin Human 25 gm 11/04/18 16:14 Alburx 25% (Albumin) IV CHON PRN Hypotension Albuterol 2.5 mg 11/21/18 07:24 Proventil IH Q4HRT PRN Shortness Of Breath Lipase/Protease/Amylase 1 each 10/11/18 12:[address] 10,500 Unit FEEDTUBE PRN PRN For Clogged Feeding Tube Atovaquone 1,500 mg 11/14/18 10:00 12/04/18 11:10 Mepron PO 1,500 mg QDAY RUBI Administration Darunavir 800 mg 10/30/18 18:00 12/04/18 11:10 Prezista PO 800 mg QDAY RUBI Administration Emtricitabine 200 mg 11/01/18 10:00 12/03/18 09:13 Emtriva PO 200 mg Q48HR RUBI Administration Epoetin Dany 20,000 unit 11/12/18 15:00 11/28/18 15:52 Procrit IV 20,000 unit .MWF RUBI Administration Heparin Sodium (Porcine) 5,000 unit 11/04/18 16:15 12/03/18 17:23 Heparin IV 5,000 unit CHON PRN Administration hemodialysis Heparin Sodium (Porcine) 5,000 unit 11/07/18 22:00 12/04/18 14:43 Heparin SUB-Q 5,000 unit Q8HR RUBI Administration Hydrophilic Ointment 1 applic 10/10/18 17:53 Vaseline Lip Therapy TP Q2HR PRN Dry Lips Sodium Chloride 100 mls @ 999 mls/hr 11/12/18 09:51 Nacl 0.9% IV CHON PRN Hypotension Ceftriaxone Sodium 1 gm in 50 mls @ 100 mls/hr 12/04/18 14:00 12/04/18 16:31 Rocephin/Ns 1 Gm/50 Ml IV 100 mls/hr Q24HR RUBI Administration Protocol Ipratropium [place] 0.5 mg 11/20/18 22:07 Atrovent IH Q4HRT PRN Shortness Of Breath Metoprolol Tartrate 5 mg 10/18/18 14:05 12/02/18 05:47 Lopressor IV 5 mg Q6HR PRN Administration Tachyarrhythmias Metoprolol Tartrate 25 mg 11/24/18 13:00 12/04/18 11:11 Lopressor PO 25 mg Q6HR RUBI Administration Multi-Ingred Cream/Lotion/Oil/Oint 1 applic 10/10/18 17:53 Artificial Tears Ophth Oint OU Q4HR PRN Dry Eye(s) Multivitamins 1 each 10/11/18 10:00 12/04/18 11:09 Theragran Tab PO 1 each DAILY RUBI Administration Ondansetron HCl 4 mg 11/12/18 15:05 Zofran IV Q8H PRN N/V unrelieved by Buddy Pantoprazole Sodium 40 mg 12/03/18 10:00 12/04/18 11:09 Protonix PO 40 mg DAILY RUBI Administration Psyllium Hydrophilic Mucilloid 1 each 11/08/18 18:00 12/04/18 11:12 Metamucil PO Not Given QDAY RUBI Ritonavir 100 mg 10/30/18 18:00 12/04/18 11:09 Norvir PO 100 mg QDAY RUBI Administration Sertraline HCl 50 mg 11/21/18 19:52 12/04/18 11:09 Zoloft PO 50 mg QDAY RUBI Administration Simple Syrup 15 ml 10/11/18 12:58 Simple Syrup FEEDTUBE PRN PRN Hypoglycemia Simple Syrup 30 ml 10/11/18 12:58 Simple Syrup FEEDTUBE PRN PRN Hypoglycemia Sodium Bicarbonate 325 mg 10/11/18 12:58 Sodium Bicarbonate FEEDTUBE PRN PRN For Clogged Feeding Tube Sodium Chloride 10 ml 10/10/18 22:00 12/04/18 11:11 Sodium Chloride Flush Syringe 10 Ml IV 10 ml BID RUBI Administration Sodium Chloride 10 ml 10/10/18 18:12 Sodium Chloride Flush Syringe 10 Ml IV PRN PRN LINE FLUSH Tenofovir Disoproxil Fumarate 300 mg 10/30/18 17:45 12/01/18 19:36 Viread PO 300 mg Q96H RUBI Administration Nutrition/Malnutrition Assess - Dietary Evaluation Nutrition/Malnutrition Findings: Nutrition Notes Start: 10/11/18 11:14 Freq: Status: Active Protocol: Document 11/26/18 14:28 RM (Rec: 11/26/18 14:34 RM [id number]) Nutrition Notes Initial or Follow up Reassessment Current Diagnosis Acute Kidney Injury,CKD(stage I-IV),Hypertension,Heart Failure,Stroke Other Pertinent Diagnosis Depression,Dysphagia,on HD, Acute encephalopathy,HIV/AIDS, Syphilis Current Diet Pureed Labs/Tests Reviewed Pertinent Medications Reviewed Height 5 ft 9 in Weight 51 kg [place] Body Weight (kg) 72.72 BMI 16.6 Subjective/Other Information Pt confused at time of visit. Pt tech stated that pt eats 25 % of his meals. Unsure of whether pt has had any Nepro. Percent of energy/protein needs met: 43%/66% Burn Absent Trauma Absent #2 Nutrition Diagnosis Malnutrition Diagnosis Progress(for reassessment Continues documentation) #1 Nutrition Diagnosis Inadequate oral intake Diagnosis Progress(for reassessment Continues documentation) Is patient on ventilator? No Is Patient Ambulatory and/or Out of Bed No REE-([facility]-confined to bed) 1683.876 Kcal/Kg value to use for calculation 40 Approximate Energy Requirements Using 2040 kcal/Kg Calculation Used for Recommendations Kcal/kg Additional Notes Pro needs 1.2-1.5g/k-72g/ day Fluid needs 1ml/kcal Nutrition Intervention Change Diet Order: Pureed diet Add Supplement/Snack (indicate name/kcal Nepro 1 daily /protein ) Provides kCal: 425 Provides Protein (gm) 19 Goal #1 Meet at least 75% of calorie and protein needs via PO and ONS intakes Anticipated Discharge Needs: [place], Renal diet Follow-Up By: 12/05/18 Additional Comments Follow for PO and ONS intakes
[2018-12-04] MEDS: TYLENOL PO PRN (18:08)
[2018-12-05 00:54] LABS: Hemoglobin 6.7 gm/dl (11.8-15.2); Mean Corpuscular HGB Conc 31 % (32-34); Mean Corpuscular Volume 93 fl (84-94); Platelet Count 199 K/mm3 (140-440); Red Blood Count 2.36 M/mm3 (3.65-5.03); Red Cell Distribution Width 21.4 % (13.2-15.2)
[2018-12-05 02:06] LABS: Eosinophils % (Manual) 0 % (0.0-4.3); Total Cells Counted 100
[2018-12-05 02:07] LABS: Anisocytosis 1+; Hypochromasia 1+; Large Platelets 1+; Platelet Estimate Consistent w Auto; Poikilocytosis 1+
[2018-12-05] MEDS: LOPRESSOR PO SCH ×4 (03:30→17:40)
[2018-12-05] MEDS: HEPARIN SUB-Q SCH ×3 (05:44→21:22)
--- NOTE | 2018-12-05 07:30 | Hem/Onc Progress Note ---
Assessment and Plan 1. Anemia. At admission, hemoglobin was 8.1, later low and s/p multiple Transfusion support. b12 - folate normal - high ferritin. 2. h/o Platelets at admission was 20. now resolved - HIT antibodies negative - no schistocytes as per path 3. White cell count was elevated. 4. PT/INR h/o slightly elevated. 5. Renal failure. nephrology following - Dialysis 6. h/o ALT elevated. 7. The patient has multiple medical issues. 8. HIV - Id following 9 - pt was on vent and then extubated 10 -pt had NGT - later removed 11 - h/o skin changes - decubiti - rectal tube 12/05 - plt good anemia - CKD may have a role hb today 6.7 - PRBC had fever issues - ID following - Patient Problems (1) Thrombocytopenia associated with AIDS Current Visit: Yes Status: Acute (2) Anemia Current Visit: Yes Status: Acute Qualifiers: Anemia type: due to chronic kidney disease Chronic kidney disease stage: unspecified stage Qualified Code(s): N18.9 - Chronic kidney disease, unspecified; D63.1 - Anemia in chronic kidney disease Subjective Date of service: 12/05/18 Principal diagnosis: anemia Interval history: hb low today had fever recently Objective - Constitutional Vitals: Last Vital Signs Temp 98.8 F 12/05/18 04:52 Pulse 118 H 12/05/18 04:52 Resp 20 12/05/18 04:52 BP 141/98 12/05/18 04:52 Pulse Ox 100 12/05/18 04:52 Pain Intensity (0-10): denies any pain General appearance: no acute distress Performance status: 4-completely disabled - EENT Eyes: EOM intact ENT: hearing intact - Neck Neck: normal ROM - Respiratory Respiratory effort: Positive: normal Respiratory: bilateral: diminished - Cardiovascular Heart Sounds: Present: S1 & S2 Extremities: No edema - Gastrointestinal General gastrointestinal: Present: soft Rectal Exam: deferred - Genitourinary Male genitourinary: Present: deferred - Integumentary Integumentary: warm - Musculoskeletal Musculoskeletal: generalized weakness - Neurologic Neurologic: moves all extremities - Labs Lab Results: Laboratory Results - last 24 hr 12/04/18 12/05/18 06:15 00:18 WBC 11.3 H RBC 2.36 L Hgb 6.7 L Hct 22.0 L MCV 93 MCH 28 MCHC 31 L RDW 21.4 H Plt Count 199 Lymph % (Auto) [place] % (Auto) [place] Eos % (Auto) [place] Baso % (Auto) [place] Lymph # [place] Stone # [place] Eos # [place] Baso # [place] Add Manual Diff Complete Total Counted 100 Seg Neutrophils % [place] Seg Neuts % (Manual) 87.0 H Band Neutrophils % 0 Lymphocytes % (Manual) 5.0 L Reactive Lymphs % (Man) 0 Monocytes % (Manual) 7.0 Eosinophils % (Manual) 0 Basophils % (Manual) 1.0 Metamyelocytes % 0 Myelocytes % 0 Promyelocytes % 0 Blast Cells % 0 Nucleated RBC % Not Reportable Seg Neutrophils # [place] Seg Neutrophils # Man 9.8 H Band Neutrophils # 0.0 Lymphocytes # (Manual) 0.6 L Abs React Lymphs (Man) 0.0 Monocytes # (Manual) 0.8 Eosinophils # (Manual) 0.0 Basophils # (Manual) 0.1 Metamyelocytes # 0.0 Myelocytes # 0.0 Promyelocytes # 0.0 Blast Cells # 0.0 WBC Morphology Not Reportable Hypersegmented Neuts Not Reportable Hyposegmented Neuts Not Reportable Hypogranular Neuts Not Reportable Smudge Cells Not Reportable Toxic Granulation Not Reportable Toxic Vacuolation Not Reportable Dohle Bodies Not Reportable Pelger-Huet Anomaly Not Reportable Kartik Rods Not Reportable Platelet Estimate Consistent w auto Clumped Platelets Not Reportable Plt Clumps, EDTA Not Reportable Large Platelets 1+ Giant Platelets Not Reportable Platelet Satelliting Not Reportable Plt Morphology Comment Not Reportable RBC Morphology Not Reportable Dimorphic RBCs Not Reportable Polychromasia Not Reportable Hypochromasia 1+ Poikilocytosis 1+ Anisocytosis 1+ Microcytosis Not Reportable Macrocytosis Not Reportable Spherocytes Not Reportable Pappenheimer Bodies Not Reportable Sickle Cells Not Reportable Target Cells Not Reportable Tear Drop Cells Not Reportable Ovalocytes Not Reportable Helmet Cells Not Reportable Smith-[place] Bodies Not Reportable Norco Rings Not Reportable Jani Cells Not Reportable Bite Cells Not Reportable Crenated Cell Not Reportable Elliptocytes Not Reportable Acanthocytes (Spur) Not Reportable Rouleaux Not Reportable Hemoglobin C Crystals Not Reportable Schistocytes Not Reportable Malaria parasites Not Reportable Jv Bodies Not Reportable Hem Pathologist Commnt No Sodium 138 Potassium 3.9 Chloride 93.6 L Carbon Dioxide 26 Anion Gap 22 BUN 18 Creatinine 3.3 H Estimated GFR 25 BUN/Creatinine Ratio 5 Glucose 118 H Calcium 9.1 Medications & Allergies - Medications Allergies/Adverse Reactions: Allergies Sulfa (Sulfonamide Antibiotics) Allergy (Verified 10/10/18 16:54) Unknown Home Medications: Home Medications Medication Instructions Recorded Confirmed Last Taken Type Acetaminophen [Tylenol] 1,000 mg PO Q6HR 10/10/18 10/10/18 Unknown History Amlodipine Besylate [Norvasc] 10 mg PO QDAY 10/10/18 10/10/18 Unknown History Aspirin [Adult Aspirin] 81 mg PO DAILY 10/10/18 10/10/18 Unknown History Atorvastatin [Lipitor Tab] 80 mg PO DAILY 10/10/18 10/10/18 Unknown History Losartan [Cozaar] 100 mg PO QDAY 10/10/18 10/10/18 Unknown History Multivitamin [Multiple Vitamins] 1 each PO DAILY 10/10/18 10/10/18 Unknown History hydroCHLOROthiazide [HCTZ] 25 mg PO QDAY 10/10/18 10/10/18 Unknown History Active Medications: Generic Name Dose Route Start Last Admin Trade Name Freq PRN Reason Stop Dose Admin Acetaminophen 500 mg 10/16/18 10:02 12/04/18 18:08 Tylenol PO 500 mg Q6H PRN Administration Fever >101 Albumin Human 25 gm 11/04/18 16:14 Alburx 25% (Albumin) IV CHON PRN Hypotension Albuterol 2.5 mg 11/21/18 07:24 Proventil IH Q4HRT PRN Shortness Of Breath Lipase/Protease/Amylase 1 each 10/11/18 12:[address] 10,500 Unit FEEDTUBE PRN PRN For Clogged Feeding Tube Atovaquone 1,500 mg 11/14/18 10:00 12/04/18 11:10 Mepron PO 1,500 mg QDAY RUBI Administration Darunavir 800 mg 10/30/18 18:00 12/04/18 11:10 Prezista PO 800 mg QDAY RUBI Administration Emtricitabine 200 mg 11/01/18 10:00 12/03/18 09:13 Emtriva PO 200 mg Q48HR RUBI Administration Epoetin Dany 20,000 unit 11/12/18 15:00 11/28/18 15:52 Procrit IV 20,000 unit .MWF RUBI Administration Heparin Sodium (Porcine) 5,000 unit 11/04/18 16:15 12/03/18 17:23 Heparin IV 5,000 unit CHON PRN Administration hemodialysis Heparin Sodium (Porcine) 5,000 unit 11/07/18 22:00 12/05/18 05:44 Heparin SUB-Q 5,000 unit Q8HR RUBI Administration Hydrophilic Ointment 1 applic 10/10/18 17:53 Vaseline Lip Therapy TP Q2HR PRN Dry Lips Sodium Chloride 100 mls @ 999 mls/hr 11/12/18 09:51 Nacl 0.9% IV CHON PRN Hypotension Ceftriaxone Sodium 1 gm in 50 mls @ 100 mls/hr 12/04/18 14:00 12/04/18 16:31 Rocephin/Ns 1 Gm/50 Ml IV 100 mls/hr Q24HR RUBI Administration Protocol Ipratropium [place] 0.5 mg 11/20/18 22:07 Atrovent IH Q4HRT PRN Shortness Of Breath Metoprolol Tartrate 5 mg 10/18/18 14:05 12/02/18 05:47 Lopressor IV 5 mg Q6HR PRN Administration Tachyarrhythmias Metoprolol Tartrate 25 mg 11/24/18 13:00 12/05/18 05:37 Lopressor PO Not Given Q6HR [facility] Multi-Ingred Cream/Lotion/Oil/Oint 1 applic 10/10/18 17:53 Artificial Tears Ophth Oint OU Q4HR PRN Dry Eye(s) Multivitamins 1 each 10/11/18 10:00 12/04/18 11:09 Theragran Tab PO 1 each DAILY RUBI Administration Ondansetron HCl 4 mg 11/12/18 15:05 Zofran IV Q8H PRN N/V unrelieved by Buddy Pantoprazole Sodium 40 mg 12/03/18 10:00 12/04/18 11:09 Protonix PO 40 mg DAILY RUBI Administration Psyllium Hydrophilic Mucilloid 1 each 11/08/18 18:00 12/04/18 11:12 Metamucil PO Not Given QDAY [facility] Ritonavir 100 mg 10/30/18 18:00 12/04/18 11:09 Norvir PO 100 mg QDAY RUBI Administration Sertraline HCl 50 mg 11/21/18 19:52 12/04/18 11:09 Zoloft PO 50 mg QDAY RUBI Administration Simple Syrup 15 ml 10/11/18 12:58 Simple Syrup FEEDTUBE PRN PRN Hypoglycemia Simple Syrup 30 ml 10/11/18 12:58 Simple Syrup FEEDTUBE PRN PRN Hypoglycemia Sodium Bicarbonate 325 mg 10/11/18 12:58 Sodium Bicarbonate FEEDTUBE PRN PRN For Clogged Feeding Tube Sodium Chloride 10 ml 10/10/18 22:00 12/04/18 22:52 Sodium Chloride Flush Syringe 10 Ml IV 10 ml BID RUBI Administration Sodium Chloride 10 ml 10/10/18 18:12 Sodium Chloride Flush Syringe 10 Ml IV PRN PRN LINE FLUSH Tenofovir Disoproxil Fumarate 300 mg 10/30/18 17:45 12/01/18 19:36 Viread PO 300 mg Q96H RUBI Administration
[2018-12-05] MEDS ORDERED: NACL 0.9% 500 ML 500 ML IV NR (07:51)
--- NOTE | 2018-12-05 09:45 | Progress Note ---
Assessment and Plan Cultures: Blood culture 10/10/2018 no growth. Sputum culture 10/10/2018 [place] albicans. Crypto Ag 10/10/2018 neg. Urine culture 10/13/2018 no growth. Blood culture 10/17/2018 no growth. Blood culture 10/20/2018: no growth Stool Occult Blood 10/23/18: positive Blood culture 10/29/18: negative Urine culture 10/31/18: [place] Blood culture 11/05/18: No growth Blood culture 11/14/18: no growth Blood culture 12/03/18: in progress Urine culture 12/03/18 : 10- 100,000 CFU/ml of normal skin eric Assessment: 43 y/o male with history of HIV (unknown CD4/VL/ART intake), HTN, CVA 6 months ago at [place], Nicotine Dependence, Malnutrition; admitted on 10/10/2018 due to AMS (confusion/lethargy) and slurred speech for 24 h: 1) SIRS versus sepsis: Spiking temperatures, noted fever 101.0. likely from [place] I. - CXR neg - BNP 70K - Troponin 0.2 - LDH 2242 -chest CT :Patchy airspace disease in the right lower lobe compatible with pneumonia. No evidence of pleural effusion. -repeat CXR : clear lungs and normal bony and soft tissue structures. Patchy airspace disease in the right lower lobe has resolved since 11/07/18 2) Acute hypoxemic respiratory failure:resolved 3) Acute encephalopathy: Improved.; multifactorial ?from hypertensive urgency +/- brain opportunistic infection. DDx: Neurosyphilis, VZV/CMV encephalitis versus [employer] GEN[employer]IC[employer] lymphoma versus less likely PML v/s ischemic CVA (seems more likely) - CT head showed bilateral chronic ischemic changes. - Brain MRI showed areas of edema in the basal ganglia and thalami bilaterally, within the jamari and in the cerebral hemispheres bilaterally in the subcortical and deep white matter and in portions of the cortex, areas of en cephalomalacia in the basal ganglia bilaterally with evidence of previous hemorrhage or mineral deposition and numerous small foci of acute infarct in the basal ganglia bilaterally, subinsular regions bilaterally and medial temporal lobes bilaterally and possibly in the occipital cortex bilaterally. - Brain MRA showed possible dissection versus artifact at the basilar artery. Luminal irregularity at the anterior, middle, and posterior cerebral arteries as well as the carotid siphons may represent mild to moderate atherosclerotic disease. More notable narrowing at the distal right A1 segment. Differential diagnosis includes motion artifact and vasculitis. Vertebral arteries are not clearly visualized. - CSF wbc 4, rbc 113, Seg 8%, Lymph 76%, protein 55, glucose 73 which is not c/w meningitis - RPR reactive 1:32 / FTA ABs reactive, treated with penicillin and ceftriaxo ne but CSF VDRL Non reactive. - Toxoplasma IgG negative, CSF Toxoplasma PCR: negative - Blood CMV DNA VL=1,370, 3.1 log on ganciclovir - likely reactivation - Repeat CMV DNA PCR 10/24/2018: <200. Off ganciclovir. - Glucan Assay: negative 4) Anemia/thrombocytopenia: improving. 5) Acute on CKD or SHRUTHI ? unclear etiology: on HD. RIJ permacath placement 6) DM: uncontrolled. 7) HIV/AIDS: VL 320,000 / CD4=3 on 10/11/2018 --> VL=47 / CD4=6 on 11/28/2018. 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 Started HIV treatment on 10/30/2018. Continue HIV therapy,renally adjusted TDF, FTC along with dolutegravir and ritonavir boosted darunavir. 8) Decubitus Ulcers: Left buttocks wound measures 9.0 x 2.5, Sacral wound measures 3.5 x 3.5, 80 % necrotic tissue, Right buttocks wound measures 5.0 x [address] Go to perform bedside debridement of sacral pressure ulcer 11/29/18. 9) UTI: with a SP catheter 10/12/18, exchange scheduled for 12/06/18 per urology. Urine culture growing 10- 100,000 of normal skin eric. U/A with pyuria WBC >182, Moderate LE. Recommendations: f/u Urology consult for SP catheter exchange.-Scheduled for tomorrow f/u repeat blood culture f/u CXR- Report pending continue to monitor fever continue atovaquone 750 mg BID continue HIV therapy: renally adjusted TDF, FTC along with dolutegravir and ritonavir boosted darunavir continue wound care continue ceftriaxone 1 gm every 24 h, D2 [facility] M: [phone] O:[phone] Subjective Date of service: 12/05/18 Principal diagnosis: anemia Interval history: Patient seen and examined in HD, No acute distress observed. no current fever. Objective - Exam Narrative Exam: General appearance: Awake, Alert, No acute distress Eyes: anicteric sclerae, moist conjunctivae; no lid-lag; PERRLA HENT: Atraumatic; oropharynx limited Neck: Trachea midline; supple, no thyromegaly or lymphadenopathy Lungs: CTA, with normal respiratory effort CV: tachycardic Abdomen: Soft, non-tender;+SP cath Extremities: No peripheral edema , + contractures bilateral lower extremities Skin: Normal temperature, turgor and texture; no rash, ulcers or subcutaneous nodules Psych: affect: Flat Neuro: Improved, following simple commands - Constitutional Vitals: Vital Signs Temp Pulse Resp BP Pulse Ox 98.6 F 128 H 20 134/101 100 12/05/18 08:40 12/05/18 09:00 12/05/18 08:40 12/05/18 09:00 12/05/18 04:52 Temperature -Last 24 Hours Temperature 98.6 F Temperature 98.8 F Temperature 98.0 F Temperature 101.0 F Temperature 99.4 F - Labs CBC & Chem 7: 12/05/18 00:18 12/05/18 Unknown Labs: Abnormal lab results 12/05/18 Range/Units 00:18 WBC 11.3 H (4.5-11.0) K/mm3 RBC 2.36 L (3.65-5.03) M/mm3 Hgb 6.7 L (11.8-15.2) gm/dl Hct 22.0 L (35.5-45.6) % MCHC 31 L (32-34) % RDW 21.4 H (13.2-15.2) % Seg Neuts % (Manual) 87.0 H (40.0-70.0) % Lymphocytes % (Manual) 5.0 L (13.4-35.0) % Seg Neutrophils # Man 9.8 H (1.8-7.7) K/mm3 Lymphocytes # (Manual) 0.6 L (1.2-5.4) K/mm3
[2018-12-05] MEDS: METAMUCIL PO SCH (10:00)
[2018-12-05 10:59] LABS: Calcium 10.2 mg/dL (8.4-10.2)
[2018-12-05] MEDS: PROCRIT IV SCH (12:32)
[2018-12-05] MEDS ORDERED: NACL 0.9 (PRIMING MACHINE ONLY DIALYSIS) MC ONE (14:07)
--- NOTE | 2018-12-05 15:24 | Progress Note ---
Assessment and Plan Assessment and plan: Patient is 43 YO Male with HIV, hypertension, previous stroke, Nicotine Dependence, presents to ED for evaluation. Patient was confused and lethargic and unable to provide history. He was seen and evaluated in ED and found to be in distress and unable to protect his airway and was therefore intubated, placed on ventilator and admitted to ICU. Patient diagnosed with acute resp failure, renal failure(acute vs acute on chronic) , Encephalopathy, Acidosis. He is followed by ID Physician for HIV/AIDS. His renal failure worsened therefore started on hemodialysis for SHRUTHI due to ATN, now ESRD. He has had a prolonged course, diagnosed with acute resp failure, sepsis , toxic metabolic encephalopathy. He is on HAART. Physical therapy reports high fall risk and the need for maximal assist. patient is currently extubated. Acute encephalopathy multifactorial ?from hypertensive urgency +/- brain opportunistic infection. DDx: Neurosyphilis, VZV/CMV encephalitis versus OUTSOLE FLEXER lymphoma versus less likely PML v/s ischemic CVA (seems more likely) improving - CT head showed bilateral chronic ischemic changes. - Brain MRI showed areas of edema in the basal ganglia and thalami bilaterally, within the jamari and in the cerebral hemispheres bilaterally in the subcortical and deep white matter and in portions of the cortex, areas of encephalomalacia in the basal ganglia bilaterally with evidence of previous hemorrhage or mineral deposition and numerous small foci of acute infarct in the basal ganglia bilaterally, subinsular regions bilaterally and medial temporal lobes bilaterally and possibly in the occipital cortex bilaterally. - Brain MRA showed possible dissection versus artifact at the basilar artery. Luminal irregularity at the anterior, middle, and posterior cerebral arteries as well as the carotid siphons may represent mild to moderate atherosclerotic disease. More notable narrowing at the distal right A1 segment. Differential diagnosis includes motion artifact and vasculitis. Vertebral arteries are not clearly visualized. - CSF wbc 4, rbc 113, Seg 8%, Lymph 76%, protein 55, glucose 73 which is not c/w meningitis - RPR reactive 1:32 / FTA ABs reactive, treated with penicillin and ceftriaxone but CSF VDRL Non reactive. - Toxoplasma IgG negative, CSF Toxoplasma PCR: negative - Blood CMV DNA VL=1,370, 3.1 log on ganciclovir - likely reactivation - Repeat CMV DNA PCR 10/24/2018: <200. Off ganciclovir. - Glucan Assay: negative Consulted Neurology, he was evaluated by DR. Valentine. mentation is improved, and this is likely his new baseline Dysphagia/ moderate malnutrition -MBS 10/23, recommended pureed with nectar thickened liquids, continue this diet -assembler production line consulted Anemia/thrombocytopenia, leukocytosis, coagulopathy; now resolved -Status post platelet (3 units) and prbc (6 units ) transfusion, the patient had only few schistocytes on smear, ADAMS13 91% activity plt count has recovered HIV/AIDS, CD4 count 3, HIV viral load 320,000 Sepsis acute bacterial PNA, CMV viremia toxo neg, CSF neg ,Whole blood cmv PCR was positive at 1374 abx and anti- antiviral per ID,continues to have fever on and off chest CT :Patchy airspace disease in the right lower lobe compatible with pneumonia. No evidence of pleural effusion. -repeat CXR : clear lungs and normal bony and soft tissue structures. Patchy airspace disease in the right lower lobe has resolved since 11/07/18 Continues on atovaquone as prophylaxis. Patient has sulfa allergy. Oral candidiasis, nystatin swish and spit ordered x 7 days SHRUTHI/ATN now ESRD Continue hemodialysis per nephrology. Hyperkalemia, resolved Severe protein calorie malnutrition -dietitican consulted Acute hypoxic resp failure on MV> 96 hours self extubated 10/16, continue supplemental oxygen prn CTA neg for PE on 11/06 Acute on chronic systolic CHF He was treated with Cardene drip which was weaned off. Optimize medications for CHF on coreg, no mik due to high K, fluid removal by dialysis Stage 2 sacral wound decub, and bilat buttock wounds left buttocks area. The wound is measured at 9.0x2.5. 25% slough noticed to the wound sacral area. The wound is measured at 3.5x3.5.80% necrotic tissue noticed to the wound right buttocks area. The wound is measured at 5.0x3.0. no evidence of infection, but wounds are necrotic, cont wound care Depression input appreciated, he is improving Severe debility; he was previously refusing PT and not participating. He agrees to be more complaints of physical therapy. he is now participating with PT, contractures are improving DVT ppx- heparin sq Disposition: Physical therapy reports high fall risk and the need for maximal assist. His partner didn't answer calls. I called his mother at [phone] and she said she is not able to help him because she is taking care of her 86 year old dad. She said his partner will be back with in 2-3 days 12/05; patient's hemoglobin this morning was 6.7 and was transfused with 1 unit of PRBC during dialysis. will check post transfusion H/H. History Interval history: Patient was seen and evaluated at the bedside, patient is very weak and answer questions very slowly. Hospitalist Physical - Physical exam Narrative exam: Not in cardiopulmonary distress. The patient is emaciated. Vital signs as documented. Head exam is unremarkable. No scleral icterus . Neck is without jugular venous distension, thyromegaly, or carotid bruits. Lungs are clear to auscultation. Cardiac exam reveals regular rate and Rhythm. Abdominal exam reveals normal bowel sounds. Extremities are nonedematous. OUTSOLE FLEXER: Alert and oriented 3. No focal weakness. - Constitutional Vitals: Temp Pulse Resp BP Pulse Ox 97.6 F 120 H 16 143/91 100 12/05/18 12:45 12/05/18 12:45 12/05/18 12:45 12/05/18 12:45 12/05/18 04:52 General appearance: Present: no acute distress, cachectic Results - Labs CBC & Chem 7: 12/05/18 00:18 12/05/18 Unknown Labs: Laboratory Last Values WBC 11.3 K/mm3 (4.5-11.0) H 12/05/18 00:18 RBC 2.36 M/mm3 (3.65-5.03) L 12/05/18 00:18 Hgb 6.7 gm/dl (11.8-15.2) L 12/05/18 00:18 Hct 22.0 % (35.5-45.6) L 12/05/18 00:18 MCV 93 fl (84-94) 12/05/18 00:18 MCH 28 pg (28-32) 12/05/18 00:18 MCHC 31 % (32-34) L 12/05/18 00:18 RDW 21.4 % (13.2-15.2) H 12/05/18 00:18 Plt Count 199 K/mm3 (140-440) 12/05/18 00:18 Lymph % (Auto) Bill Distributor 12/05/18 00:18 [place] % (Auto) Bill Distributor 12/05/18 00:18 Eos % (Auto) Bill Distributor 12/05/18 00:18 Baso % (Auto) Bill Distributor 12/05/18 00:18 Lymph # Bill Distributor 12/05/18 00:18 [place] # Bill Distributor 12/05/18 00:18 Eos # Bill Distributor 12/05/18 00:18 Baso # Bill Distributor 12/05/18 00:18 Add Manual Diff Complete 12/05/18 00:18 Total Counted 100 12/05/18 00:18 Seg Neutrophils % Bill Distributor 12/05/18 00:18 Seg Neuts % (Manual) 87.0 % (40.0-70.0) H 12/05/18 00:18 Band Neutrophils % 0 % 12/05/18 00:18 Lymphocytes % (Manual) 5.0 % (13.4-35.0) L 12/05/18 00:18 Reactive Lymphs % (Man) 0 % 12/05/18 00:18 Monocytes % (Manual) 7.0 % (0.0-7.3) 12/05/18 00:18 Eosinophils % (Manual) 0 % (0.0-4.3) 12/05/18 00:18 Basophils % (Manual) 1.0 % (0.0-1.8) 12/05/18 00:18 Metamyelocytes % 0 % 12/05/18 00:18 Myelocytes % 0 % 12/05/18 00:18 Promyelocytes % 0 % 12/05/18 00:18 Blast Cells % 0 % 12/05/18 00:18 Nucleated RBC % Not Reportable 12/05/18 00:18 Seg Neutrophils # Bill Distributor 12/05/18 00:18 Seg Neutrophils # Man 9.8 K/mm3 (1.8-7.7) H 12/05/18 00:18 Band Neutrophils # 0.0 K/mm3 12/05/18 00:18 Abs Lymphs (Manual) 519 cells/uL (850-3900) L 11/28/18 06:46 Lymphocytes # (Manual) 0.6 K/mm3 (1.2-5.4) L 12/05/18 00:18 Abs React Lymphs (Man) 0.0 K/mm3 12/05/18 00:18 Monocytes # (Manual) 0.8 K/mm3 (0.0-0.8) 12/05/18 00:18 Eosinophils # (Manual) 0.0 K/mm3 (0.0-0.4) 12/05/18 00:18 Basophils # (Manual) 0.1 K/mm3 (0.0-0.1) 12/05/18 00:18 Metamyelocytes # 0.0 K/mm3 12/05/18 00:18 Myelocytes # 0.0 K/mm3 12/05/18 00:18 Promyelocytes # 0.0 K/mm3 12/05/18 00:18 Blast Cells # 0.0 K/mm3 12/05/18 00:18 Pathologist Review 10/15/18 03:14 WBC Morphology Not Reportable 12/05/18 00:18 Hypersegmented Neuts Not Reportable 12/05/18 00:18 Hyposegmented Neuts Not Reportable 12/05/18 00:18 Hypogranular Neuts Not Reportable 12/05/18 00:18 Smudge Cells Not Reportable 12/05/18 00:18 Toxic Granulation Not Reportable 12/05/18 00:18 Toxic Vacuolation Not Reportable 12/05/18 00:18 Dohle Bodies Not Reportable 12/05/18 00:18 Pelger-Huet Anomaly Not Reportable 12/05/18 00:18 Kartik Rods Not Reportable 12/05/18 00:18 Platelet Estimate Consistent w auto 12/05/18 00:18 Clumped Platelets Not Reportable 12/05/18 00:18 Plt Clumps, EDTA Not Reportable 12/05/18 00:18 Large Platelets 1+ 12/05/18 00:18 Giant Platelets Not Reportable 12/05/18 00:18 Platelet Satelliting Not Reportable 12/05/18 00:18 Plt Morphology Comment Not Reportable 12/05/18 00:18 RBC Morphology Not Reportable 12/05/18 00:18 Dimorphic RBCs Not Reportable 12/05/18 00:18 Polychromasia Not Reportable 12/05/18 00:18 Hypochromasia 1+ 12/05/18 00:18 Poikilocytosis 1+ 12/05/18 00:18 Anisocytosis 1+ 12/05/18 00:18 Microcytosis Not Reportable 12/05/18 00:18 Macrocytosis Not Reportable 12/05/18 00:18 Spherocytes Not Reportable 12/05/18 00:18 Pappenheimer Bodies Not Reportable 12/05/18 00:18 Sickle Cells Not Reportable 12/05/18 00:18 Target Cells Not Reportable 12/05/18 00:18 Tear Drop Cells Not Reportable 12/05/18 00:18 Ovalocytes Not Reportable 12/05/18 00:18 Stomatocytes Few 11/10/18 06:54 Helmet Cells Not Reportable 12/05/18 00:18 [place] Level Bodies Not Reportable 12/05/18 00:18 [place] Rings Not Reportable 12/05/18 00:18 [place] Cells Not Reportable 12/05/18 00:18 Bite Cells Not Reportable 12/05/18 00:18 Crenated Cell Not Reportable 12/05/18 00:18 Elliptocytes Not Reportable 12/05/18 00:18 Acanthocytes (Spur) Not Reportable 12/05/18 00:18 Rouleaux Not Reportable 12/05/18 00:18 Hemoglobin C Crystals Not Reportable 12/05/18 00:18 Schistocytes Not Reportable 12/05/18 00:18 Malaria parasites Not Reportable 12/05/18 00:18 Jv Bodies Not Reportable 12/05/18 00:18 Hem Pathologist Commnt No 12/05/18 00:18 PT 17.7 Sec. (12.2-14.9) H 11/06/18 13:18 INR 1.36 (0.87-1.13) H 11/06/18 13:18 APTT 30.6 Sec. (24.2-36.6) 11/06/18 13:18 Thrombin Time 16.9 Sec. (15.1-19.6) 10/10/18 15:02 Heparin Anti-Xa Level < 0.10 U.I./ml (0.3-0.7) L 11/07/18 21:31 Heparin Anti-Xa, Unfract Negative (Negative) 10/25/18 05:59 POC ABG pH 7.455 (7.35-7.45) H 11/23/18 13:46 POC ABG pCO2 32.0 (35-45) L 10/21/18 09:49 POC ABG pO2 111 (80-105) H 11/23/18 13:46 POC ABG HCO3 17.3 (22-26 mml/L) 11/23/18 13:46 POC ABG Total CO2 18 (23-27mmol/L) 11/23/18 13:46 POC ABG O2 Sat 99 11/23/18 13:46 POC ABG Base Excess -7 ((-2) - (+3)mmol/L) 11/23/18 13:46 FiO2 21 % 11/23/18 13:46 Sodium 139 mmol/L (137-145) 12/05/18 Unknown Potassium 4.5 mmol/L (3.6-5.0) 12/05/18 Unknown Chloride 97.2 mmol/L (98-107) L 12/05/18 Unknown Carbon Dioxide 28 mmol/L (22-30) 12/05/18 Unknown Anion Gap 18 mmol/L 12/05/18 Unknown BUN 13 mg/dL (9-20) 12/05/18 Unknown Creatinine 2.1 mg/dL (0.8-1.5) H 12/05/18 Unknown Estimated GFR 42 ml/min 12/05/18 Unknown BUN/Creatinine Ratio 6 % 12/05/18 Unknown Glucose 153 mg/dL (75-100) H 12/05/18 Unknown POC Glucose 110 (70-105) H 11/23/18 13:35 Osmolality 338 Mosm/kg 10/11/18 17:35 Lactic Acid 1.80 mmol/L (0.7-2.0) 10/12/18 05:59 Uric Acid 13.4 mg/dL (3.5-7.6) H 10/11/18 17:36 Calcium 10.2 mg/dL (8.4-10.2) 12/05/18 Unknown Phosphorus 6.50 mg/dL (2.5-4.5) H 11/24/18 10:53 Magnesium 3.10 mg/dL (1.7-2.3) H 10/18/18 05:03 Iron 147 ug/dL (49-181) 10/11/18 17:36 TIBC 236 mcg/dL (250-450) L 10/11/18 17:36 Ferritin 84745.0 ng/mL (13.0-400.0) H 10/11/18 17:35 Total Bilirubin 0.30 mg/dL (0.1-1.2) 11/19/18 05:31 Direct Bilirubin 0.2 mg/dL (0-0.2) 10/16/18 04:07 Indirect Bilirubin 0.3 mg/dL 10/16/18 04:07 AST 26 units/L (5-40) 11/19/18 05:31 ALT 11 units/L (7-56) 11/19/18 05:31 Alkaline Phosphatase 74 units/L (35-129) 11/19/18 05:31 Ammonia 25.0 umol/L (25-60) 10/17/18 14:59 Lactate Dehydrogenase 925 units/L (91-180) H 10/22/18 05:51 Troponin T 0.357 ng/mL (0.00-0.029) H* 11/06/18 05:54 NT-Pro-B Natriuret Pep 18933 pg/mL (0-450) H 10/10/18 15:42 Total Protein 7.6 g/dL (6.3-8.2) 11/19/18 05:31 Albumin 2.6 g/dL (3.9-5) L 11/19/18 05:31 Albumin/Globulin Ratio 0.5 % 11/19/18 05:31 Triglycerides 306 mg/dL (2-149) H 11/05/18 11:29 Cholesterol 145 mg/dL (50-199) 11/05/18 11:29 LDL Cholesterol Direct 89 mg/dL (50-130) 11/05/18 11:29 HDL Cholesterol 25 mg/dL (40-59) L 11/05/18 11:29 Cholesterol/HDL Ratio 5.80 % 11/05/18 11:29 Serotonin Release Assay See scanned result 10/25/18 05:59 Vitamin B12 912.3 pg/mL (211-911) H 10/14/18 08:51 Folate 8.32 ng/mL (7.3-26.0) 10/14/18 08:51 PTH Intact 118.0 pg/mL (15-65) H 11/24/18 10:53 Urine Color Yellow (Yellow) 12/03/18 18:33 Urine Turbidity Turbid (Clear) 12/03/18 18:33 Urine pH 7.0 (5.0-7.0) 12/03/18 18:33 Ur Specific [place] 1.021 (1.003-1.030) 12/03/18 18:33 Urine Protein 100 mg/dl mg/dL (Negative) 12/03/18 18:33 Urine Glucose (UA) Neg mg/dL (Negative) 12/03/18 18:33 Urine Ketones Neg mg/dL (Negative) 12/03/18 18:33 Urine Blood Sm (Negative) 12/03/18 18:33 Urine Nitrite Neg (Negative) 12/03/18 18:33 Urine Bilirubin Neg (Negative) 12/03/18 18:33 Urine Urobilinogen < 2.0 mg/dL (<2.0) 12/03/18 18:33 Ur Leukocyte Esterase Mod (Negative) 12/03/18 18:33 Urine WBC (Auto) > 182.0 /HPF (0.0-6.0) H 12/03/18 18:33 Urine RBC (Auto) > 182.0 /HPF (0.0-6.0) 12/03/18 18:33 Urine Bacteria (Auto) 4+ /HPF (Negative) 12/03/18 18:33 Urine WBC Clumps 3+ /HPF 12/03/18 18:33 Ur Yeast w Hyphae 1+ /HPF 12/03/18 18:33 Urine Yeast (Budding) 3+ /HPF 12/03/18 18:33 Urine Creatinine 30.8 mg/dL (0.1-20.0) H 10/13/18 04:43 Urine Sodium 106 mmol/L 10/13/18 04:43 Urine Total Protein 75 mg/dL (5-11.8) H 10/13/18 04:43 CSF Appearance Clear 10/16/18 15:00 CSF Color Colorless 10/16/18 15:00 CSF WBC 4 /mm3 (1-10) 10/16/18 15:00 CSF RBC 113 /mm3 (0-0) 10/16/18 15:00 CSF Seg Neutrophils 8.0 % (0-6) 10/16/18 15:00 CSF Lymphocytes % 76.0 % (40-80) 10/16/18 15:00 CSF Reactive Lymphs 2.0 % 10/16/18 15:00 CSF Monocytes % 14.0 % (15-45) 10/16/18 15:00 CSF Eosinophils % 0 % 10/16/18 15:00 CSF Basophils 0 % 10/16/18 15:00 CSF Pathologist Review C 10/16/18 15:00 CSF Glucose 73 mg/dL 10/16/18 15:00 CSF Total Protein 55 mg/dL 10/16/18 15:00 CSF VDRL Nonreactive (Nonreactive) 10/16/18 15:00 Random Vancomycin 21.1 ug/mL (0-40.0) 11/20/18 06:15 Immunofix Electrophor see below 10/11/18 17:36 RENO Screen Negative (Negative) 10/21/18 15:07 Proteinase 3 (PR3) Ab <1.0 AI (<1.0) 10/21/18 15:07 Myeloperoxidase Ab <1.0 AI (<1.0) 10/21/18 15:07 Heparin-induced Plt Ab Negative (Negative) 10/25/18 05:59 UF Heparin High Dose 0 % Release 10/25/18 05:59 VJ UFH Low Dose 0.1 0 % Release 10/25/18 05:59 VJ UFH Low Dose 0.5 14 % Release 10/25/18 05:59 Lymph Enumerat CD4/CD8 0.01 (0.86-5.00) L 11/28/18 06:46 % CD3 Cells 71 % (57-85) 11/28/18 06:46 Absolute CD3 Count 370 cells/uL (840-3060) L 11/28/18 06:46 % CD4 Cells 1 % (30-61) L 11/28/18 06:46 Absolute CD4 Count 6 cells/uL (490-1740) L 11/28/18 06:46 % CD8 Cells 67 % (12-42) H 11/28/18 06:46 Absolute CD8 Count 352 cells/uL (180-1170) 11/28/18 06:46 % CD19 Cells 4 % (6-29) L 11/28/18 06:46 Absolute CD19 Count 23 cells/uL (110-660) L 11/28/18 06:46 RPR Titer 1:32 10/11/18 17:37 RPR Reactive (Nonreactive) 10/11/18 17:37 T.pallidum Ab (FTA-ABS) Reactive (Nonreactive) H 10/12/18 Unknown CMV DNA PCR log mass spectroscopist/mL See scanned result 10/24/18 17:47 Hepatitis A IgM Ab Non-reactive (NonReactive) 11/21/18 09:58 Hep Bs Antigen Non-reactive (Negative) 11/21/18 09:58 Hep B Core IgM Ab Non-reactive (NonReactive) 11/21/18 09:58 Hepatitis C Antibody Non-reactive (NonReactive) 11/21/18 09:58 HIV-1 RNA PCR copies/ml 47 Copies/mL H 11/28/18 06:46 HIV-1 RNA (PCR) log 1.67 Log cps/mL H 11/28/18 06:46 HIV-1 Genotyping See scanned results 10/29/18 19:48 Toxoplasma IgG Ab <7.20 IU/mL (<7.20) 10/13/18 07:54 Miscellaneous Test Flexitest 1 10/31/18 06:43 Blood Type A POSITIVE 12/05/18 10:05 Antibody Screen Negative 12/05/18 10:05 Crossmatch See Detail 12/05/18 10:05 Active Medications - Current Medications Current Medications: Generic Name Dose Route Start Last Admin Trade Name Freq PRN Reason Stop Dose Admin Acetaminophen 500 mg 10/16/18 10:02 12/04/18 18:08 Tylenol PO 500 mg Q6H PRN Administration Fever >101 Albumin Human 25 gm 11/04/18 16:14 Alburx 25% (Albumin) IV CHON PRN Hypotension Albuterol 2.5 mg 11/21/18 07:24 Proventil IH Q4HRT PRN Shortness Of Breath Lipase/Protease/Amylase 1 each 10/11/18 12:[address] 10,500 Unit FEEDTUBE PRN PRN For Clogged Feeding Tube Atovaquone 1,500 mg 11/14/18 10:00 12/04/18 11:10 Mepron PO 1,500 mg QDAY RUBI Administration Darunavir 800 mg 10/30/18 18:00 12/04/18 11:10 Prezista PO 800 mg QDAY RUBI Administration Emtricitabine 200 mg 11/01/18 10:00 12/03/18 09:13 Emtriva PO 200 mg Q48HR RUBI Administration Epoetin Dany 20,000 unit 11/12/18 15:00 12/05/18 12:32 Procrit IV 20,000 unit .MWF RUBI Administration Heparin Sodium (Porcine) 5,000 unit 11/04/18 16:15 12/03/18 17:23 Heparin IV 5,000 unit CHON PRN Administration hemodialysis Heparin Sodium (Porcine) 5,000 unit 11/07/18 22:00 12/05/18 05:44 Heparin SUB-Q 5,000 unit Q8HR RUBI Administration Hydrophilic Ointment 1 applic 10/10/18 17:53 Vaseline Lip Therapy TP Q2HR PRN Dry Lips Sodium Chloride 100 mls @ 999 mls/hr 11/12/18 09:51 Nacl 0.9% IV CHON PRN Hypotension Ceftriaxone Sodium 1 gm in 50 mls @ 100 mls/hr 12/04/18 14:00 12/04/18 16:31 Rocephin/Ns 1 Gm/50 Ml IV 100 mls/hr Q24HR RUBI Administration Protocol Sodium Chloride 500 mls @ 0 mls/hr 12/05/18 07:51 Nacl 0.9% 500 Ml IV 12/06/18 07:50 ONCE NR As Directed Ipratropium [place] 0.5 mg 11/20/18 22:07 Atrovent IH Q4HRT PRN Shortness Of Breath Metoprolol Tartrate 5 mg 10/18/18 14:05 12/02/18 05:47 Lopressor IV 5 mg Q6HR PRN Administration Tachyarrhythmias Metoprolol Tartrate 25 mg 11/24/18 13:00 12/05/18 05:37 Lopressor PO Not Given Q6HR RUBI Multi-Ingred Cream/Lotion/Oil/Oint 1 applic 10/10/18 17:53 Artificial Tears Ophth Oint OU Q4HR PRN Dry Eye(s) Multivitamins 1 each 10/11/18 10:00 12/04/18 11:09 Theragran Tab PO 1 each DAILY RUBI Administration Ondansetron HCl 4 mg 11/12/18 15:05 Zofran IV Q8H PRN N/V unrelieved by Buddy Pantoprazole Sodium 40 mg 12/03/18 10:00 12/04/18 11:09 Protonix PO 40 mg DAILY RUBI Administration Psyllium Hydrophilic Mucilloid 1 each 11/08/18 18:00 12/04/18 11:12 Metamucil PO Not Given QDAY RUBI Ritonavir 100 mg 10/30/18 18:00 12/04/18 11:09 Norvir PO 100 mg QDAY RUBI Administration Sertraline HCl 50 mg 11/21/18 19:52 12/04/18 11:09 Zoloft PO 50 mg QDAY RUBI Administration Simple Syrup 15 ml 10/11/18 12:58 Simple Syrup FEEDTUBE PRN PRN Hypoglycemia Simple Syrup 30 ml 10/11/18 12:58 Simple Syrup FEEDTUBE PRN PRN Hypoglycemia Sodium Bicarbonate 325 mg 10/11/18 12:58 Sodium Bicarbonate FEEDTUBE PRN PRN For Clogged Feeding Tube Sodium Chloride 10 ml 10/10/18 22:00 12/04/18 22:52 Sodium Chloride Flush Syringe 10 Ml IV 10 ml BID RUBI Administration Sodium Chloride 10 ml 10/10/18 18:12 Sodium Chloride Flush Syringe 10 Ml IV PRN PRN LINE FLUSH Tenofovir Disoproxil Fumarate 300 mg 10/30/18 17:45 12/01/18 19:36 Viread PO 300 mg Q96H RUBI Administration Nutrition/Malnutrition Assess - Dietary Evaluation Nutrition/Malnutrition Findings: Nutrition Notes Start: 10/11/18 11:14 Freq: Status: Active Protocol: Document 12/05/18 13:52 RM (Rec: 12/05/18 13:56 RM [id number]) Nutrition Notes Initial or Follow up Reassessment Current Diagnosis Acute Kidney Injury,CKD(stage I-IV),Decubitus(Pressure Ulcer ),Hypertension,Heart Failure, Stroke Other Pertinent Diagnosis Sacral & R hip PU, Dysphagia, on HD,Acute encephalopathy,HIV /AIDS,Syphilis Current Diet Pureed Labs/Tests Reviewed Pertinent Medications Reviewed Height 5 ft 9 in Weight 50 kg [place] Body Weight (kg) 72.72 BMI 16.2 Subjective/Other Information Per tech pt was NPO earlier so did not have chance to eat breakfast. Recorded PO intake 29% X 4 days. Tech stated pt drank half of nepro today. Percent of energy/protein needs met: 37%/54% Burn Absent Trauma Absent #2 Nutrition Diagnosis Malnutrition Diagnosis Progress(for reassessment Continues documentation) #1 Nutrition Diagnosis Inadequate oral intake Diagnosis Progress(for reassessment Continues documentation) Is patient on ventilator? No Is Patient Ambulatory and/or Out of Bed No REE-([place]-confined to bed) 1671.888 Kcal/Kg value to use for calculation 40 Approximate Energy Requirements Using 2000 kcal/Kg Calculation Used for Recommendations Kcal/kg Additional Notes Pro needs 1.2-1.5g/k-72g/ day Fluid needs 1ml/kcal Nutrition Intervention Change Diet Order: Pureed diet Add Supplement/Snack (indicate name/kcal Nepro BID /protein ) Provides kCal: 850 Provides Protein (gm) 38 Goal #1 Meet at least 75% of calorie and protein needs via PO and ONS intakes Anticipated Discharge Needs: Pureed, Renal diet Follow-Up By: 12/07/18 Additional Comments Follow for PO and ONS intakes
[2018-12-05] MEDS: PROTONIX PO SCH (16:06)
[2018-12-05] MEDS: EMTRIVA PO SCH (16:06)
[2018-12-05] MEDS: THERAGRAN Tab PO SCH (16:06)
[2018-12-05] MEDS: NORVIR PO SCH (16:06)
[2018-12-05] MEDS: ROCEPHIN/NS 1 GM/50 ML 1 GM/50 ML BAG IV SCH (16:06)
[2018-12-05] MEDS: MEPRON PO SCH (16:06)
[2018-12-05] MEDS: ZOLOFT PO SCH (16:07)
[2018-12-05] MEDS: TIVICAY PO SCH (16:07)
[2018-12-05] MEDS: PREZISTA PO SCH (16:08)
[2018-12-05] MEDS: SODIUM CHLORIDE FLUSH SYRINGE 10 ML IV SCH ×2 (16:13→23:25)
[2018-12-05 17:09] LABS: Hematocrit 27.9 % (35.5-45.6); Hemoglobin 8.4 gm/dl (11.8-15.2)
--- NOTE | 2018-12-05 17:39 | Progress Note ---
Assessment and Plan - Patient Problems (1) Acute kidney injury Current Visit: Yes Status: Acute Plan to address problem: Acute kidney injury : severe Now dialysis dependent. I reviewed renal Ultrasound with 10.1cm and 10.8cm kidneys bilateral echogenic Possible aetiologies of Acute kidney injury is likely 2/2 acute tubular injury ,possible underlying HIV associated nephropathy cannot be excluded . He is currently oliguric currently dialysis dependent. Currently has tunneled dialysis catheter appreciate Vascular surgery assistance. Avoid Nephrotoxic medications. 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 (2) Anemia Current Visit: Yes Status: Acute Qualifiers: Anemia type: due to chronic kidney disease Chronic kidney disease stage: unspecified stage Qualified Code(s): N18.9 - Chronic kidney disease, unspecified; D63.1 - Anemia in chronic kidney disease Plan to address problem: Moderate severe anemia 2/2 CKD and ongoing inflammation transfuse as needed. Hb: 7.7g/dl Epogen 20,000 units Monitor CBC. (3) HIV (human immunodeficiency virus infection) Current Visit: Yes Status: Acute Qualifiers: HIV symptom status: symptomatic Qualified Code(s): B20 - Human immunodeficiency virus [HIV] disease Plan to address problem: HIV/ AIDS - has been treated for infection Still spiking fevers 100.4F today. - infectious disease on board . (4) Tachycardia Current Visit: Yes Status: Acute Plan to address problem: Past Persistent febrile episodes EKG reviewed sinus tachycardia Subjective Principal diagnosis: anemia Interval history: 43 year old gentleman with medical history significant for HIV admitted with Sepsis , acute hypoxemic respiratory failure , Encephalopathy , transaminitis and worsening renal failure . Patient seen this morning I attest I saw the patient on hemodialysis. Has a right IJ tunneled dialysis catheter has a regan catheter . Objective - Vital Signs Vital signs: Vital Signs - 12hr 12/05/18 12/05/18 12/05/18 08:40 08:45 09:00 Temperature 98.6 F Pulse Rate 122 H 125 H 128 H Respiratory 20 Rate Blood Pressure 143/101 142/106 134/101 12/05/18 12/05/18 12/05/18 09:15 09:30 09:45 Temperature Pulse Rate 130 H 113 H 135 H Respiratory Rate Blood Pressure 126/94 138/103 114/91 12/05/18 12/05/18 12/05/18 10:00 10:15 10:30 Temperature Pulse Rate 135 H 132 H 135 H Respiratory Rate Blood Pressure 121/96 104/80 89/45 12/05/18 12/05/18 12/05/18 10:40 10:45 11:00 Temperature Pulse Rate 130 H 127 H 69 Respiratory Rate Blood Pressure 95/51 101/68 91/42 12/05/18 12/05/18 12/05/18 11:05 11:15 11:30 Temperature Pulse Rate 136 H 131 H 131 H Respiratory Rate Blood Pressure 95/58 109/57 110/78 12/05/18 12/05/18 12/05/18 11:45 12:00 12:15 Temperature Pulse Rate 130 H 126 H 130 H Respiratory Rate Blood Pressure 123/73 109/72 112/76 12/05/18 12/05/18 12:30 12:45 Temperature 97.6 F Pulse Rate 125 H 120 H Respiratory 16 Rate Blood Pressure 120/80 143/91 - General Appearance General appearance: chronically ill, frail, anxious EENT: ATNC, PERRL Neck: no JVD, JVD Respiratory: Present: Clear to Ascultation Cardiology: regular, S1S2 Gastrointestinal: normal, normoactive bowel sounds Integumentary: no rash Neurologic: no focal deficit, CN 3-12 intact Musculoskeletal: deferred, deformities Psychiatric: depressed - Lab 12/05/18 16:35 12/05/18 Unknown Most recent lab results Calcium 10.2 mg/dL (8.4-10.2) 12/05/18 Unknown Phosphorus 6.50 mg/dL (2.5-4.5) H 11/24/18 10:53 Magnesium 3.10 mg/dL (1.7-2.3) H 10/18/18 05:03 Urine Creatinine 30.8 mg/dL (0.1-20.0) H 10/13/18 04:43 Urine Sodium 106 mmol/L 10/13/18 04:43 Urine Total Protein 75 mg/dL (5-11.8) H 10/13/18 04:43 - Imaging Chest x-ray: image reviewed (I reviewed CXR with patchy opacities. ) Medications & Allergies - Medications Allergies/Adverse Reactions: Allergies Sulfa (Sulfonamide Antibiotics) Allergy (Verified 10/10/18 16:54) Unknown Home Medications: Home Medications Medication Instructions Recorded Confirmed Last Taken Type Acetaminophen [Tylenol] 1,000 mg PO Q6HR 10/10/18 10/10/18 Unknown History Amlodipine Besylate [Norvasc] 10 mg PO QDAY 10/10/18 10/10/18 Unknown History Aspirin [Adult Aspirin] 81 mg PO DAILY 10/10/18 10/10/18 Unknown History Atorvastatin [Lipitor Tab] 80 mg PO DAILY 10/10/18 10/10/18 Unknown History Losartan [Cozaar] 100 mg PO QDAY 10/10/18 10/10/18 Unknown History Multivitamin [Multiple Vitamins] 1 each PO DAILY 10/10/18 10/10/18 Unknown History hydroCHLOROthiazide [HCTZ] 25 mg PO QDAY 10/10/18 10/10/18 Unknown History Active Medications: Generic Name Dose Route Start Last Admin Trade Name Freq PRN Reason Stop Dose Admin Acetaminophen 500 mg 10/16/18 10:02 12/04/18 18:08 Tylenol PO 500 mg Q6H PRN Administration Fever >101 Albumin Human 25 gm 11/04/18 16:14 Alburx 25% (Albumin) IV CHON PRN Hypotension Albuterol 2.5 mg 11/21/18 07:24 Proventil IH Q4HRT PRN Shortness Of Breath Lipase/Protease/Amylase 1 each 10/11/18 12:58 Pancreazkarlos Reed 10,500 Unit FEEDTUBE PRN PRN For Clogged Feeding Tube Atovaquone 1,500 mg 11/14/18 10:00 12/05/18 16:06 Mepron PO 1,500 mg QDAY RUBI Administration Darunavir 800 mg 10/30/18 18:00 12/05/18 16:08 Prezista PO 800 mg QDAY RUBI Administration Emtricitabine 200 mg 11/01/18 10:00 12/05/18 16:06 Emtriva PO 200 mg Q48HR RUBI Administration Epoetin Dany 20,000 unit 11/12/18 15:00 12/05/18 12:32 Procrit IV 20,000 unit .MWF RUBI Administration Heparin Sodium (Porcine) 5,000 unit 11/04/18 16:15 12/03/18 17:23 Heparin IV 5,000 unit CHON PRN Administration hemodialysis Heparin Sodium (Porcine) 5,000 unit 11/07/18 22:00 12/05/18 05:44 Heparin SUB-Q 5,000 unit Q8HR RUBI Administration Hydrophilic Ointment 1 applic 10/10/18 17:53 Vaseline Lip Therapy TP Q2HR PRN Dry Lips Sodium Chloride 100 mls @ 999 mls/hr 11/12/18 09:51 Nacl 0.9% IV CHON PRN Hypotension Ceftriaxone Sodium 1 gm in 50 mls @ 100 mls/hr 12/04/18 14:00 12/05/18 16:06 Rocephin/Ns 1 Gm/50 Ml IV 100 mls/hr Q24HR RUBI Administration Protocol Sodium Chloride 500 mls @ 0 mls/hr 12/05/18 07:51 Nacl 0.9% 500 Ml IV 12/06/18 07:50 ONCE NR As Directed Ipratropium Harmony 0.5 mg 11/20/18 22:07 Atrovent IH Q4HRT PRN Shortness Of Breath Metoprolol Tartrate 5 mg 10/18/18 14:05 12/02/18 05:47 Lopressor IV 5 mg Q6HR PRN Administration Tachyarrhythmias Metoprolol Tartrate 25 mg 11/24/18 13:00 12/05/18 12:00 Lopressor PO Not Given Q6HR RUBI Multi-Ingred Cream/Lotion/Oil/Oint 1 applic 10/10/18 17:53 Artificial Tears Ophth Oint OU Q4HR PRN Dry Eye(s) Multivitamins 1 each 10/11/18 10:00 12/05/18 16:06 Theragran Tab PO 1 each DAILY RUBI Administration Ondansetron HCl 4 mg 11/12/18 15:05 Zofran IV Q8H PRN N/V unrelieved by Buddy Pantoprazole Sodium 40 mg 12/03/18 10:00 12/05/18 16:06 Protonix PO 40 mg DAILY RUBI Administration Psyllium Hydrophilic Mucilloid 1 each 11/08/18 18:00 12/04/18 11:12 Metamucil PO Not Given QDAY RUBI Ritonavir 100 mg 10/30/18 18:00 12/05/18 16:06 Norvir PO 100 mg QDAY RUBI Administration Sertraline HCl 50 mg 11/21/18 19:52 12/05/18 16:07 Zoloft PO 50 mg QDAY RUBI Administration Simple Syrup 15 ml 10/11/18 12:58 Simple Syrup FEEDTUBE PRN PRN Hypoglycemia Simple Syrup 30 ml 10/11/18 12:58 Simple Syrup FEEDTUBE PRN PRN Hypoglycemia Sodium Bicarbonate 325 mg 10/11/18 12:58 Sodium Bicarbonate FEEDTUBE PRN PRN For Clogged Feeding Tube Sodium Chloride 10 ml 10/10/18 22:00 12/05/18 16:13 Sodium Chloride Flush Syringe 10 Ml IV 10 ml BID RUBI Administration Sodium Chloride 10 ml 10/10/18 18:12 Sodium Chloride Flush Syringe 10 Ml IV PRN PRN LINE FLUSH Tenofovir Disoproxil Fumarate 300 mg 10/30/18 17:45 12/01/18 19:36 Viread PO 300 mg Q96H RUBI Administration
[2018-12-05] MEDS: VIREAD PO SCH (17:41)
--- NOTE | 2018-12-05 17:47 | Progress Note ---
Subjective Date of service: 12/05/18 Principal diagnosis: anemia Interval history: 43 YO Male with HIV, HTN, CVA, Nicotine Dependence, Malnutrition presents to ED for evaluation. Pt is confused/lethargic and unable to provide history. Pt history taken from ED staff, as well as family. Pt reported to have increased confusion this morning. Pt transported to [facility] for further care and evaluation. Pt seen and evaluated in ED and found to be in distress and unable to protect his airway. Pt intubated at time of my exam. Pt found to have Acute Respiratory Failure, Encephalopathy, Acidosis. Pt initiated on Sepsis protocol and admitted to ICU. Pulmonary team consulted in ED. NO reports of feve,r chills, CP, palpitations, NVD, Syncope, Trauma. pt transferred to regular floor large well healed midline scar changed 12F spt today - no problem A/P urethral stricture continue spt - change q 4-6 weeks Objective - Constitutional Vitals: Vital Signs - 12hr 12/05/18 12/05/18 12/05/18 08:40 08:45 09:00 Temperature 98.6 F Pulse Rate 122 H 125 H 128 H Respiratory 20 Rate Blood Pressure 143/101 142/106 134/101 12/05/18 12/05/18 12/05/18 09:15 09:30 09:45 Temperature Pulse Rate 130 H 113 H 135 H Respiratory Rate Blood Pressure 126/94 138/103 114/91 12/05/18 12/05/18 12/05/18 10:00 10:15 10:30 Temperature Pulse Rate 135 H 132 H 135 H Respiratory Rate Blood Pressure 121/96 104/80 89/45 12/05/18 12/05/18 12/05/18 10:40 10:45 11:00 Temperature Pulse Rate 130 H 127 H 69 Respiratory Rate Blood Pressure 95/51 101/68 91/42 12/05/18 12/05/18 12/05/18 11:05 11:15 11:30 Temperature Pulse Rate 136 H 131 H 131 H Respiratory Rate Blood Pressure 95/58 109/57 110/78 12/05/18 12/05/18 12/05/18 11:45 12:00 12:15 Temperature Pulse Rate 130 H 126 H 130 H Respiratory Rate Blood Pressure 123/73 109/72 112/76 12/05/18 12/05/18 12:30 12:45 Temperature 97.6 F Pulse Rate 125 H 120 H Respiratory 16 Rate Blood Pressure 120/80 143/91 - Labs CBC & Chem 7: 12/05/18 16:35 12/05/18 Unknown Labs: Abnormal lab results 12/05/18 12/05/18 12/05/18 Range/Units 00:18 10:05 16:35 WBC 11.3 H (4.5-11.0) K/mm3 RBC 2.36 L (3.65-5.03) M/mm3 Hgb 6.7 L 8.4 L (11.8-15.2) gm/dl Hct 22.0 L 27.9 L (35.5-45.6) % MCHC 31 L (32-34) % RDW 21.4 H (13.2-15.2) % Seg Neuts % (Manual) 87.0 H (40.0-70.0) % Lymphocytes % (Manual) 5.0 L (13.4-35.0) % Seg Neutrophils # Man 9.8 H (1.8-7.7) K/mm3 Lymphocytes # (Manual) 0.6 L (1.2-5.4) K/mm3 Chloride (98-107) mmol/L Creatinine (0.8-1.5) mg/dL Glucose (75-100) mg/dL Crossmatch See Detail 12/05/18 Range/Units Unknown WBC (4.5-11.0) K/mm3 RBC (3.65-5.03) M/mm3 Hgb (11.8-15.2) gm/dl Hct (35.5-45.6) % MCHC (32-34) % RDW (13.2-15.2) % Seg Neuts % (Manual) (40.0-70.0) % Lymphocytes % (Manual) (13.4-35.0) % Seg Neutrophils # Man (1.8-7.7) K/mm3 Lymphocytes # (Manual) (1.2-5.4) K/mm3 Chloride 97.2 L (98-107) mmol/L Creatinine 2.1 H (0.8-1.5) mg/dL Glucose 153 H (75-100) mg/dL Crossmatch Medications & Allergies - Medications Allergies/Adverse Reactions: Allergies Sulfa (Sulfonamide Antibiotics) Allergy (Verified 10/10/18 16:54) Unknown Home Medications: Home Medications Medication Instructions Recorded Confirmed Last Taken Type Acetaminophen [Tylenol] 1,000 mg PO Q6HR 10/10/18 10/10/18 Unknown History Amlodipine Besylate [Norvasc] 10 mg PO QDAY 10/10/18 10/10/18 Unknown History Aspirin [Adult Aspirin] 81 mg PO DAILY 10/10/18 10/10/18 Unknown History Atorvastatin [Lipitor Tab] 80 mg PO DAILY 10/10/18 10/10/18 Unknown History Losartan [Cozaar] 100 mg PO QDAY 10/10/18 10/10/18 Unknown History Multivitamin [Multiple Vitamins] 1 each PO DAILY 10/10/18 10/10/18 Unknown History hydroCHLOROthiazide [HCTZ] 25 mg PO QDAY 10/10/18 10/10/18 Unknown History Active Medications: Generic Name Dose Route Start Last Admin Trade Name Freq PRN Reason Stop Dose Admin Acetaminophen 500 mg 10/16/18 10:02 12/04/18 18:08 Tylenol PO 500 mg Q6H PRN Administration Fever >101 Albumin Human 25 gm 11/04/18 16:14 Alburx 25% (Albumin) IV CHON PRN Hypotension Albuterol 2.5 mg 11/21/18 07:24 Proventil IH Q4HRT PRN Shortness Of Breath Lipase/Protease/Amylase 1 each 10/11/18 12:[address] 10,500 Unit FEEDTUBE PRN PRN For Clogged Feeding Tube Atovaquone 1,500 mg 11/14/18 10:00 12/05/18 16:06 Mepron PO 1,500 mg QDAY RUBI Administration Darunavir 800 mg 10/30/18 18:00 12/05/18 16:08 Prezista PO 800 mg QDAY RUBI Administration Emtricitabine 200 mg 11/01/18 10:00 12/05/18 16:06 Emtriva PO 200 mg Q48HR RUBI Administration Epoetin Dany 20,000 unit 11/12/18 15:00 12/05/18 12:32 Procrit IV 20,000 unit .MWF RUBI Administration Heparin Sodium (Porcine) 5,000 unit 11/04/18 16:15 12/03/18 17:23 Heparin IV 5,000 unit CHON PRN Administration hemodialysis Heparin Sodium (Porcine) 5,000 unit 11/07/18 22:00 12/05/18 05:44 Heparin SUB-Q 5,000 unit Q8HR RUBI Administration Hydrophilic Ointment 1 applic 10/10/18 17:53 Vaseline Lip Therapy TP Q2HR PRN Dry Lips Sodium Chloride 100 mls @ 999 mls/hr 11/12/18 09:51 Nacl 0.9% IV CHON PRN Hypotension Ceftriaxone Sodium 1 gm in 50 mls @ 100 mls/hr 12/04/18 14:00 12/05/18 16:06 Rocephin/Ns 1 Gm/50 Ml IV 100 mls/hr Q24HR RUBI Administration Protocol Sodium Chloride 500 mls @ 0 mls/hr 12/05/18 07:51 Nacl 0.9% 500 Ml IV 12/06/18 07:50 ONCE NR As Directed Ipratropium Robinson 0.5 mg 11/20/18 22:07 Atrovent IH Q4HRT PRN Shortness Of Breath Metoprolol Tartrate 5 mg 10/18/18 14:05 12/02/18 05:47 Lopressor IV 5 mg Q6HR PRN Administration Tachyarrhythmias Metoprolol Tartrate 25 mg 11/24/18 13:00 12/05/18 17:40 Lopressor PO 25 mg Q6HR RUBI Administration Multi-Ingred Cream/Lotion/Oil/Oint 1 applic 10/10/18 17:53 Artificial Tears Ophth Oint OU Q4HR PRN Dry Eye(s) Multivitamins 1 each 10/11/18 10:00 12/05/18 16:06 Theragran Tab PO 1 each DAILY RUBI Administration Ondansetron HCl 4 mg 11/12/18 15:05 Zofran IV Q8H PRN N/V unrelieved by Buddy Pantoprazole Sodium 40 mg 12/03/18 10:00 12/05/18 16:06 Protonix PO 40 mg DAILY RUBI Administration Psyllium Hydrophilic Mucilloid 1 each 11/08/18 18:00 12/04/18 11:12 Metamucil PO Not Given QDAY RUBI Ritonavir 100 mg 10/30/18 18:00 12/05/18 16:06 Norvir PO 100 mg QDAY RUBI Administration Sertraline HCl 50 mg 11/21/18 19:52 12/05/18 16:07 Zoloft PO 50 mg QDAY RUBI Administration Simple Syrup 15 ml 10/11/18 12:58 Simple Syrup FEEDTUBE PRN PRN Hypoglycemia Simple Syrup 30 ml 10/11/18 12:58 Simple Syrup FEEDTUBE PRN PRN Hypoglycemia Sodium Bicarbonate 325 mg 10/11/18 12:58 Sodium Bicarbonate FEEDTUBE PRN PRN For Clogged Feeding Tube Sodium Chloride 10 ml 10/10/18 22:00 12/05/18 16:13 Sodium Chloride Flush Syringe 10 Ml IV 10 ml BID RUBI Administration Sodium Chloride 10 ml 10/10/18 18:12 Sodium Chloride Flush Syringe 10 Ml IV PRN PRN LINE FLUSH Tenofovir Disoproxil Fumarate 300 mg 10/30/18 17:45 12/05/18 17:41 Viread PO 300 mg Q96H RUBI Administration
[2018-12-06] MEDS: LOPRESSOR PO SCH ×3 (00:33→11:59)
[2018-12-06] MEDS: HEPARIN SUB-Q SCH ×3 (05:46→21:40)
--- NOTE | 2018-12-06 09:41 | Hem/Onc Progress Note ---
Assessment and Plan 1. Anemia. At admission, hemoglobin was 8.1, later low and s/p multiple Transfusion support. b12 - folate normal - high ferritin. 2. h/o Platelets at admission was 20. now resolved - HIT antibodies negative - no schistocytes as per path 3. White cell count was elevated. 4. PT/INR h/o slightly elevated. 5. Renal failure. nephrology following - Dialysis 6. h/o ALT elevated. 7. The patient has multiple medical issues. 8. HIV - Id following 9 pt was on vent and then extubated 10 pt had NGT - later removed 11 h/o skin changes - decubiti - h/o rectal tube 12/06 - plt good anemia - CKD may have a role s/p PRBC ID following - Patient Problems (1) Thrombocytopenia associated with AIDS Current Visit: Yes Status: Acute (2) Anemia Current Visit: Yes Status: Acute Qualifiers: Anemia type: due to chronic kidney disease Chronic kidney disease stage: unspecified stage Qualified Code(s): N18.9 - Chronic kidney disease, unspecified; D63.1 - Anemia in chronic kidney disease Subjective Date of service: 12/06/18 Principal diagnosis: anemia Interval history: no bleeding Objective - Constitutional Vitals: Last Vital Signs Temp 99.1 F 12/06/18 05:03 Pulse 122 H 12/06/18 05:03 Resp 20 12/06/18 05:03 BP 130/90 12/06/18 05:46 Pulse Ox 99 12/06/18 05:03 Pain Intensity (0-10): denies any pain General appearance: no acute distress Performance status: 4-completely disabled - EENT Eyes: EOM intact ENT: hearing intact Lymph node exam: negative cervical - Neck Neck: normal ROM - Respiratory Respiratory effort: Positive: normal Respiratory: negative: CTA - Cardiovascular Heart Sounds: Present: S1 & S2 Extremities: No edema - Gastrointestinal General gastrointestinal: Present: soft, non-tender Localized Gastrointestinal: tender: LLQ Rectal Exam: deferred - Genitourinary Male genitourinary: Present: deferred - Integumentary Integumentary: warm - Musculoskeletal Musculoskeletal: generalized weakness - Neurologic Neurologic: moves all extremities - Labs Lab Results: Laboratory Results - last 24 hr 12/05/18 12/05/18 12/05/18 10:05 16:35 Unknown Hgb 8.4 L Hct 27.9 L Sodium 139 Potassium 4.5 Chloride 97.2 L Carbon Dioxide 28 Anion Gap 18 BUN 13 Creatinine 2.1 H Estimated GFR 42 BUN/Creatinine Ratio 6 Glucose 153 H Calcium 10.2 Blood Type A POSITIVE Antibody Screen Negative Crossmatch See Detail Medications & Allergies - Medications Allergies/Adverse Reactions: Allergies Sulfa (Sulfonamide Antibiotics) Allergy (Verified 10/10/18 16:54) Unknown Home Medications: Home Medications Medication Instructions Recorded Confirmed Last Taken Type Acetaminophen [Tylenol] 1,000 mg PO Q6HR 10/10/18 10/10/18 Unknown History Amlodipine Besylate [Norvasc] 10 mg PO QDAY 10/10/18 10/10/18 Unknown History Aspirin [Adult Aspirin] 81 mg PO DAILY 10/10/18 10/10/18 Unknown History Atorvastatin [Lipitor Tab] 80 mg PO DAILY 10/10/18 10/10/18 Unknown History Losartan [Cozaar] 100 mg PO QDAY 10/10/18 10/10/18 Unknown History Multivitamin [Multiple Vitamins] 1 each PO DAILY 10/10/18 10/10/18 Unknown History hydroCHLOROthiazide [HCTZ] 25 mg PO QDAY 10/10/18 10/10/18 Unknown History Active Medications: Generic Name Dose Route Start Last Admin Trade Name Freq PRN Reason Stop Dose Admin Acetaminophen 500 mg 10/16/18 10:02 12/04/18 18:08 Tylenol PO 500 mg Q6H PRN Administration Fever >101 Albumin Human 25 gm 11/04/18 16:14 Alburx 25% (Albumin) IV CHON PRN Hypotension Albuterol 2.5 mg 11/21/18 07:24 Proventil IH Q4HRT PRN Shortness Of Breath Lipase/Protease/Amylase 1 each 10/11/18 12:58 Pancrebecka Reed 10,500 Unit FEEDTUBE PRN PRN For Clogged Feeding Tube Atovaquone 1,500 mg 11/14/18 10:00 12/05/18 16:06 Mepron PO 1,500 mg QDAY URBI Administration Darunavir 800 mg 10/30/18 18:00 12/05/18 16:08 Prezista PO 800 mg QDAY RUBI Administration Emtricitabine 200 mg 11/01/18 10:00 12/05/18 16:06 Emtriva PO 200 mg Q48HR RUBI Administration Epoetin Dany 20,000 unit 11/12/18 15:00 12/05/18 12:32 Procrit IV 20,000 unit .MWF RUBI Administration Heparin Sodium (Porcine) 5,000 unit 11/04/18 16:15 12/03/18 17:23 Heparin IV 5,000 unit CHON PRN Administration hemodialysis Heparin Sodium (Porcine) 5,000 unit 11/07/18 22:00 12/06/18 05:46 Heparin SUB-Q 5,000 unit Q8HR RUBI Administration Hydrophilic Ointment 1 applic 10/10/18 17:53 Vaseline Lip Therapy TP Q2HR PRN Dry Lips Sodium Chloride 100 mls @ 999 mls/hr 11/12/18 09:51 Nacl 0.9% IV CHON PRN Hypotension Ceftriaxone Sodium 1 gm in 50 mls @ 100 mls/hr 12/04/18 14:00 12/05/18 16:06 Rocephin/Ns 1 Gm/50 Ml IV 100 mls/hr Q24HR RUBI Administration Protocol Ipratropium Drifting 0.5 mg 11/20/18 22:07 Atrovent IH Q4HRT PRN Shortness Of Breath Metoprolol Tartrate 5 mg 10/18/18 14:05 12/02/18 05:47 Lopressor IV 5 mg Q6HR PRN Administration Tachyarrhythmias Metoprolol Tartrate 25 mg 11/24/18 13:00 12/06/18 05:46 Lopressor PO 25 mg Q6HR RUBI Administration Multi-Ingred Cream/Lotion/Oil/Oint 1 applic 10/10/18 17:53 Artificial Tears Ophth Oint OU Q4HR PRN Dry Eye(s) Multivitamins 1 each 10/11/18 10:00 12/05/18 16:06 Theragran Tab PO 1 each DAILY RUBI Administration Ondansetron HCl 4 mg 11/12/18 15:05 Zofran IV Q8H PRN N/V unrelieved by Buddy Pantoprazole Sodium 40 mg 12/03/18 10:00 12/05/18 16:06 Protonix PO 40 mg DAILY RUBI Administration Psyllium Hydrophilic Mucilloid 1 each 11/08/18 18:00 12/05/18 10:00 Metamucil PO Not Given QDAY [facility] Ritonavir 100 mg 10/30/18 18:00 12/05/18 16:06 Norvir PO 100 mg QDAY RUBI Administration Sertraline HCl 50 mg 11/21/18 19:52 12/05/18 16:07 Zoloft PO 50 mg QDAY RUBI Administration Simple Syrup 15 ml 10/11/18 12:58 Simple Syrup FEEDTUBE PRN PRN Hypoglycemia Simple Syrup 30 ml 10/11/18 12:58 Simple Syrup FEEDTUBE PRN PRN Hypoglycemia Sodium Bicarbonate 325 mg 10/11/18 12:58 Sodium Bicarbonate FEEDTUBE PRN PRN For Clogged Feeding Tube Sodium Chloride 10 ml 10/10/18 22:00 12/05/18 23:25 Sodium Chloride Flush Syringe 10 Ml IV 10 ml BID RUBI Administration Sodium Chloride 10 ml 10/10/18 18:12 Sodium Chloride Flush Syringe 10 Ml IV PRN PRN LINE FLUSH Tenofovir Disoproxil Fumarate 300 mg 10/30/18 17:45 12/05/18 17:41 Viread PO 300 mg Q96H RUBI Administration
--- NOTE | 2018-12-06 10:36 | Progress Note ---
Assessment and Plan - Patient Problems (1) Acute kidney injury Current Visit: Yes Status: Acute Plan to address problem: Acute kidney injury : severe Now dialysis dependent. I reviewed renal Ultrasound with 10.1cm and 10.8cm kidneys bilateral echogenic Possible aetiologies of Acute kidney injury is likely 2/2 acute tubular injury ,possible underlying HIV associated nephropathy cannot be excluded . He is currently oliguric currently dialysis dependent. Currently has tunneled dialysis catheter appreciate Vascular surgery assistance. Avoid Nephrotoxic medications. 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 Hb: 7.7g/dl Epogen 20,000 units Monitor CBC. (3) HIV (human immunodeficiency virus infection) Current Visit: Yes Status: Acute Qualifiers: HIV symptom status: symptomatic Qualified Code(s): B20 - Human immunodeficiency virus [HIV] disease Plan to address problem: HIV/ AIDS - has been treated for infection Still spiking fevers 100.7F today. ?UTI - infectious disease on board . (4) Tachycardia Current Visit: Yes Status: Acute Plan to address problem: Past Persistent febrile episodes EKG reviewed sinus tachycardia Subjective Principal diagnosis: anemia Interval history: 43 year old gentleman with medical history significant for HIV admitted with Sepsis , acute hypoxemic respiratory failure , Encephalopathy , transaminitis and worsening renal failure . Patient seen this morning denies any diarrhoea had some hypotension on dialysis yesterday. Has a right IJ tunneled dialysis catheter has a regan catheter . Objective - Vital Signs Vital signs: Vital Signs - 12hr 12/06/18 12/06/18 05:03 05:46 Temperature 99.1 F Pulse Rate 122 H Respiratory 20 Rate Blood Pressure 135/94 Blood Pressure 130/90 [Left] O2 Sat by Pulse 99 Oximetry - General Appearance General appearance: chronically ill, frail EENT: ATNC, PERRL, mucous membranes dry Neck: no JVD Respiratory: Present: Decreased Breath Sounds Cardiology: regular, tachycardia, S1S2 Gastrointestinal: normal, normoactive bowel sounds Integumentary: no rash Neurologic: no focal deficit Psychiatric: mood/affect appropriate, depressed - Lab 12/05/18 16:35 12/05/18 Unknown Most recent lab results Calcium 10.2 mg/dL (8.4-10.2) 12/05/18 Unknown Phosphorus 6.50 mg/dL (2.5-4.5) H 11/24/18 10:53 Magnesium 3.10 mg/dL (1.7-2.3) H 10/18/18 05:03 Urine Creatinine 30.8 mg/dL (0.1-20.0) H 10/13/18 04:43 Urine Sodium 106 mmol/L 10/13/18 04:43 Urine Total Protein 75 mg/dL (5-11.8) H 10/13/18 04:43 - Imaging Chest x-ray: image reviewed (i reviewed CXR with hazy opacities. ) Medications & Allergies - Medications Allergies/Adverse Reactions: Allergies Sulfa (Sulfonamide Antibiotics) Allergy (Verified 10/10/18 16:54) Unknown Home Medications: Home Medications Medication Instructions Recorded Confirmed Last Taken Type Acetaminophen [Tylenol] 1,000 mg PO Q6HR 10/10/18 10/10/18 Unknown History Amlodipine Besylate [Norvasc] 10 mg PO QDAY 10/10/18 10/10/18 Unknown History Aspirin [Adult Aspirin] 81 mg PO DAILY 10/10/18 10/10/18 Unknown History Atorvastatin [Lipitor Tab] 80 mg PO DAILY 10/10/18 10/10/18 Unknown History Losartan [Cozaar] 100 mg PO QDAY 10/10/18 10/10/18 Unknown History Multivitamin [Multiple Vitamins] 1 each PO DAILY 10/10/18 10/10/18 Unknown History hydroCHLOROthiazide [HCTZ] 25 mg PO QDAY 10/10/18 10/10/18 Unknown History Active Medications: Generic Name Dose Route Start Last Admin Trade Name Freq PRN Reason Stop Dose Admin Acetaminophen 500 mg 10/16/18 10:02 12/04/18 18:08 Tylenol PO 500 mg Q6H PRN Administration Fever >101 Albumin Human 25 gm 11/04/18 16:14 Alburx 25% (Albumin) IV CHON PRN Hypotension Albuterol 2.5 mg 11/21/18 07:24 Proventil IH Q4HRT PRN Shortness Of Breath Lipase/Protease/Amylase 1 each 10/11/18 12:[address] 10,500 Unit FEEDTUBE PRN PRN For Clogged Feeding Tube Atovaquone 1,500 mg 11/14/18 10:00 12/05/18 16:06 Mepron PO 1,500 mg QDAY RUBI Administration Darunavir 800 mg 10/30/18 18:00 12/05/18 16:08 Prezista PO 800 mg QDAY RUBI Administration Emtricitabine 200 mg 11/01/18 10:00 12/05/18 16:06 Emtriva PO 200 mg Q48HR RUBI Administration Epoetin Dany 20,000 unit 11/12/18 15:00 12/05/18 12:32 Procrit IV 20,000 unit .MWF RUBI Administration Heparin Sodium (Porcine) 5,000 unit 11/04/18 16:15 12/03/18 17:23 Heparin IV 5,000 unit CHON PRN Administration hemodialysis Heparin Sodium (Porcine) 5,000 unit 11/07/18 22:00 12/06/18 05:46 Heparin SUB-Q 5,000 unit Q8HR RUBI Administration Hydrophilic Ointment 1 applic 10/10/18 17:53 Vaseline Lip Therapy TP Q2HR PRN Dry Lips Sodium Chloride 100 mls @ 999 mls/hr 11/12/18 09:51 Nacl 0.9% IV CHON PRN Hypotension Ceftriaxone Sodium 1 gm in 50 mls @ 100 mls/hr 12/04/18 14:00 12/05/18 16:06 Rocephin/Ns 1 Gm/50 Ml IV 100 mls/hr Q24HR RUBI Administration Protocol Ipratropium [place] 0.5 mg 11/20/18 22:07 Atrovent IH Q4HRT PRN Shortness Of Breath Metoprolol Tartrate 5 mg 10/18/18 14:05 12/02/18 05:47 Lopressor IV 5 mg Q6HR PRN Administration Tachyarrhythmias Metoprolol Tartrate 25 mg 11/24/18 13:00 12/06/18 05:46 Lopressor PO 25 mg Q6HR RUBI Administration Multi-Ingred Cream/Lotion/Oil/Oint 1 applic 10/10/18 17:53 Artificial Tears Ophth Oint OU Q4HR PRN Dry Eye(s) Multivitamins 1 each 10/11/18 10:00 12/05/18 16:06 Theragran Tab PO 1 each DAILY RUBI Administration Ondansetron HCl 4 mg 11/12/18 15:05 Zofran IV Q8H PRN N/V unrelieved by Buddy Pantoprazole Sodium 40 mg 12/03/18 10:00 12/05/18 16:06 Protonix PO 40 mg DAILY RUBI Administration Psyllium Hydrophilic Mucilloid 1 each 11/08/18 18:00 12/05/18 10:00 Metamucil PO Not Given QDAY RUBI Ritonavir 100 mg 10/30/18 18:00 12/05/18 16:06 Norvir PO 100 mg QDAY RUBI Administration Sertraline HCl 50 mg 11/21/18 19:52 12/05/18 16:07 Zoloft PO 50 mg QDAY RUBI Administration Simple Syrup 15 ml 10/11/18 12:58 Simple Syrup FEEDTUBE PRN PRN Hypoglycemia Simple Syrup 30 ml 10/11/18 12:58 Simple Syrup FEEDTUBE PRN PRN Hypoglycemia Sodium Bicarbonate 325 mg 10/11/18 12:58 Sodium Bicarbonate FEEDTUBE PRN PRN For Clogged Feeding Tube Sodium Chloride 10 ml 10/10/18 22:00 12/05/18 23:25 Sodium Chloride Flush Syringe 10 Ml IV 10 ml BID RUBI Administration Sodium Chloride 10 ml 10/10/18 18:12 Sodium Chloride Flush Syringe 10 Ml IV PRN PRN LINE FLUSH Tenofovir Disoproxil Fumarate 300 mg 10/30/18 17:45 12/05/18 17:41 Viread PO 300 mg Q96H RUBI Administration
--- NOTE | 2018-12-06 10:57 | Progress Note ---
Assessment and Plan Cultures: Blood culture 10/10/2018 no growth. Sputum culture 10/10/2018 Ana Paula albicans. Crypto Ag 10/10/2018 neg. Urine culture 10/13/2018 no growth. Blood culture 10/17/2018 no growth. Blood culture 10/20/2018: no growth Stool Occult Blood 10/23/18: positive Blood culture 10/29/18: negative Urine culture 10/31/18: Ana Paula Blood culture 11/05/18: No growth Blood culture 11/14/18: no growth Blood culture 12/03/18: in progress Urine culture 12/03/18 : 10- 100,000 CFU/ml of normal skin eric Assessment: 43 y/o male with history of HIV (unknown CD4/VL/ART intake), HTN, CVA 6 months ago at [facility], Nicotine Dependence, Malnutrition; admitted on 10/10/2018 due to AMS (confusion/lethargy) and slurred speech for 24 h: 1) SIRS versus sepsis: Fevers continuing. likely from UTI. - CXR neg - BNP 70K - Troponin 0.2 - LDH 2242 -chest CT :Patchy airspace disease in the right lower lobe compatible with pneumonia. No evidence of pleural effusion. -repeat CXR : clear lungs and normal bony and soft tissue structures. Patchy airspace disease in the right lower lobe has resolved since 11/07/18 2) Acute hypoxemic respiratory failure:resolved 3) Acute encephalopathy: Improved.; multifactorial ?from hypertensive urgency +/- brain opportunistic infection. DDx: Neurosyphilis, VZV/CMV encephalitis versus [employer] lymphoma versus less likely PML v/s ischemic CVA (seems more likely) - CT head showed bilateral chronic ischemic changes. - Brain MRI showed areas of edema in the basal ganglia and thalami bilaterally, within the jamari and in the cerebral hemispheres bilaterally in the subcortical and deep white matter and in portions of the cortex, areas of encephalomalacia in the basal ganglia bilaterally with evidence of previous hemorrhage or mineral deposition and numerous small foci of acute infarct in the basal ganglia bilaterally, subinsular regions bilaterally and medial temporal lobes bilaterally and possibly in the occipital cortex bilaterally. - Brain MRA showed possible dissection versus artifact at the basilar artery. Luminal irregularity at the anterior, middle, and posterior cerebral arteries as well as the carotid siphons may represent mild to moderate atherosclerotic disease. More notable narrowing at the distal right A1 segment. Differential diagnosis includes motion artifact and vasculitis. Vertebral arteries are not clearly visualized. - CSF wbc 4, rbc 113, Seg 8%, Lymph 76%, protein 55, glucose 73 which is not c/w meningitis - RPR reactive 1:32 / FTA ABs reactive, treated with penicillin and ceftriaxone but CSF VDRL Non reactive. - Toxoplasma IgG negative, CSF Toxoplasma PCR: negative - Blood CMV DNA VL=1,370, 3.1 log on ganciclovir - likely reactivation - Repeat CMV DNA PCR 10/24/2018: <200. Off ganciclovir. - Glucan Assay: negative 4) Anemia/thrombocytopenia: improving. 5) Acute on CKD or SHRUTHI ? unclear etiology: on HD. RIJ permacath placement 6) DM: uncontrolled. 7) HIV/AIDS: VL 320,000 / CD4=3 on 10/11/2018 --> VL=47 / CD4=6 on 11/28/2018. 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 Started HIV treatment on 10/30/2018. Continue HIV therapy,renally adjusted TDF, FTC along with dolutegravir and ritonavir boosted darunavir. 8) Decubitus Ulcers: Left buttocks wound measures 9.0 x 2.5, Sacral wound measures 3.5 x 3.5, 80 % necrotic tissue, Right buttocks wound measures 5.0 x 3.[address] Go to perform bedside debridement of sacral pressure ulcer 11/29/18. 9) UTI: with a SP catheter 10/12/18, S/p catheter exchange on 12/06/[address] Paula. Urine culture growing 10- 100,000 of normal skin eric. U/A with pyuria WBC >182, Moderate LE. Recommendations: f/u repeat blood culture f/u CXR- Report pending continue to monitor fever- if fevers continue will order repeat blood cultures continue atovaquone 750 mg BID continue HIV therapy: renally adjusted TDF, FTC along with dolutegravir and ritonavir boosted darunavir continue wound care continue ceftriaxone 1 gm every 24 h, D3 [facility] M: [phone] O:[phone] Subjective Date of service: 12/06/18 Principal diagnosis: anemia Interval history: Patient seen and examined in HD, No acute distress observed. SP catheter switched out yesterday. Objective - Exam Narrative Exam: General appearance: Awake, Alert, No acute distress Eyes: anicteric sclerae, moist conjunctivae; no lid-lag; PERRLA HENT: Atraumatic; oropharynx limited Neck: Trachea midline; supple, no thyromegaly or lymphadenopathy Lungs: CTA, with normal respiratory effort CV: tachycardic Abdomen: Soft, non-tender;+SP cath exchanged Extremities: No peripheral edema , + contractures bilateral lower extremities Skin: Normal temperature, turgor and texture; no rash, ulcers or subcutaneous nodules Psych: affect: Flat Neuro: Improved, following simple commands - Constitutional Vitals: Vital Signs Temp Pulse Resp BP Pulse Ox 99.1 F 122 H 20 130/90 99 12/06/18 05:03 12/06/18 05:03 12/06/18 05:03 12/06/18 05:46 12/06/18 05:03 Temperature -Last 24 Hours Temperature 99.1 F Temperature 99.2 F Temperature 100.5 F Temperature 97.6 F - Labs CBC & Chem 7: 12/05/18 16:35 12/05/18 Unknown Labs: Abnormal lab results 12/05/18 12/05/18 12/05/18 Range/Units 10:05 16:35 Unknown Hgb 8.4 L (11.8-15.2) gm/dl Hct 27.9 L (35.5-45.6) % Chloride 97.2 L (98-107) mmol/L Creatinine 2.1 H (0.8-1.5) mg/dL Glucose 153 H (75-100) mg/dL Crossmatch See Detail
[2018-12-06] MEDS: NORVIR PO SCH (11:58)
[2018-12-06] MEDS: THERAGRAN Tab PO SCH (12:01)
[2018-12-06] MEDS: MEPRON PO SCH (12:02)
[2018-12-06] MEDS: METAMUCIL PO SCH (12:03)
[2018-12-06] MEDS: PROTONIX PO SCH (12:03)
[2018-12-06] MEDS: TIVICAY PO SCH (12:06)
[2018-12-06] MEDS: SODIUM CHLORIDE FLUSH SYRINGE 10 ML IV SCH ×2 (12:09→23:02)
[2018-12-06] MEDS: ROCEPHIN/NS 1 GM/50 ML 1 GM/50 ML BAG IV SCH (12:12)
--- NOTE | 2018-12-06 14:40 | Progress Note ---
Assessment and Plan Assessment and plan: Patient is 43 YO Male with HIV, hypertension, previous stroke, Nicotine Dependence, presents to ED for evaluation. Patient was confused and lethargic and unable to provide history. He was seen and evaluated in ED and found to be in distress and unable to protect his airway and was therefore intubated, placed on ventilator and admitted to ICU. Patient diagnosed with acute resp failure, renal failure(acute vs acute on chronic) , Encephalopathy, Acidosis. He is followed by ID Physician for HIV/AIDS. His renal failure worsened therefore started on hemodialysis for SHRUTHI due to ATN, now ESRD. He has had a prolonged course, diagnosed with acute resp failure, sepsis , toxic metabolic encephalopathy. He is on HAART. Physical therapy reports high fall risk and the need for maximal assist. patient is currently extubated. Acute encephalopathy multifactorial ?from hypertensive urgency +/- brain opportunistic infection. 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 - Brain MRI showed areas of edema in the basal ganglia and thalami bilaterally, within the jamari and in the cerebral hemispheres bilaterally in the subcortical and deep white matter and in portions of the cortex, areas of encephalomalacia in the basal ganglia bilaterally with evidence of previous hemorrhage or mineral deposition and numerous small foci of acute infarct in the basal ganglia bilaterally, subinsular regions bilaterally and medial temporal lobes bilaterally and possibly in the occipital cortex bilaterally. - Brain MRA showed possible dissection versus artifact at the basilar artery. Luminal irregularity at the anterior, middle, and posterior cerebral arteries as well as the carotid siphons may represent mild to moderate atherosclerotic disease. More notable narrowing at the distal right A1 segment. Differential diagnosis includes motion artifact and vasculitis. Vertebral arteries are not clearly visualized. - CSF wbc 4, rbc 113, Seg 8%, Lymph 76%, protein 55, glucose 73 which is not c/w meningitis - RPR reactive 1:32 / FTA ABs reactive, treated with penicillin and ceftriaxone but CSF VDRL Non reactive. - Toxoplasma IgG negative, CSF Toxoplasma PCR: negative - Blood CMV DNA VL=1,370, 3.1 log on ganciclovir - likely reactivation - Repeat CMV DNA PCR 10/24/2018: <200. Off ganciclovir. - Glucan Assay: negative Consulted Neurology, he was evaluated by DR. Valentine. mentation is improved, and this is likely his new baseline Dysphagia/ moderate malnutrition -MBS 10/23, recommended pureed with nectar thickened liquids, continue this diet -mobility specialist consulted Anemia/thrombocytopenia, leukocytosis, coagulopathy; now resolved -Status post platelet (3 units) and prbc (6 units ) transfusion, the patient had only few schistocytes on smear, ADAMS13 91% activity plt count has recovered HIV/AIDS, CD4 count 3, HIV viral load 320,000 Sepsis acute bacterial PNA, CMV viremia toxo neg, CSF neg ,Whole blood cmv PCR was positive at 1374 abx and anti- antiviral per ID,continues to have fever on and off chest CT :Patchy airspace disease in the right lower lobe compatible with pneumonia. No evidence of pleural effusion. -repeat CXR : clear lungs and normal bony and soft tissue structures. Patchy airspace disease in the right lower lobe has resolved since 11/07/18 Continues on atovaquone as prophylaxis. Patient has sulfa allergy. Oral candidiasis, nystatin swish and spit ordered x 7 days SHRUTHI/ATN now ESRD Continue hemodialysis per nephrology. Hyperkalemia, resolved Severe protein calorie malnutrition -dietitican consulted Acute hypoxic resp failure on MV> 96 hours self extubated 10/16, continue supplemental oxygen prn CTA neg for PE on 11/06 Acute on chronic systolic CHF He was treated with Cardene drip which was weaned off. Optimize medications for CHF on coreg, no mik due to high K, fluid removal by dialysis Stage 2 sacral wound decub, and bilat buttock wounds left buttocks area. The wound is measured at 9.0x2.5. 25% slough noticed to the wound sacral area. The wound is measured at 3.5x3.5.80% necrotic tissue noticed to the wound right buttocks area. The wound is measured at 5.0x3.0. no evidence of infection, but wounds are necrotic, cont wound care Depression input appreciated, he is improving Severe debility; he was previously refusing PT and not participating. He agrees to be more complaints of physical therapy. he is now participating with PT, contractures are improving DVT ppx- heparin sq Disposition: Physical therapy reports high fall risk and the need for maximal assist. His partner didn't answer calls. I called his mother at [phone] and she said she is not able to help him because she is taking care of her 86 year old dad. She said his partner will be back with in 2-3 days 12/05; patient's hemoglobin this morning was 6.7 and was transfused with 1 unit of PRBC during dialysis. will check post transfusion H/H. 12/06 H/H stable She has family wants him to be in hospice care. I didn't recommend hospice care, his AIDS may get better. ID didn't recommend either. Patient needs HIV medicati ons and Dialysis. I explained the situation to the family and they are considering about it. If the patient is going to hospice with out his HIV meds/Dialysis the patient may . History Interval history: Patient was seen and evaluated at the bedside, patient is very weak and answer questions very slowly. Have discussed the management plan with his father and cousin and they want the patient to be on hospice care. Hospitalist Physical - Physical exam Narrative exam: Not in cardiopulmonary distress. The patient is emaciated. Vital signs as documented. Head exam is unremarkable. No scleral icterus . Neck is without jugular venous distension, thyromegaly, or carotid bruits. Lungs are clear to auscultation. Cardiac exam reveals regular rate and Rhythm. Abdominal exam reveals normal bowel sounds. Extremities are nonedematous. OFFICE MACHINE PUNCH OPERATOR: Alert and oriented 3. No focal weakness. - Constitutional Vitals: Temp Pulse Resp BP Pulse Ox 100.7 F H 107 H 20 125/88 100 12/06/18 13:46 12/06/18 13:46 12/06/18 13:46 12/06/18 13:46 12/06/18 13:46 General appearance: Present: no acute distress, cachectic Results - Labs CBC & Chem 7: 12/05/18 16:35 12/05/18 Unknown Labs: Laboratory Last Values WBC 11.3 K/mm3 (4.5-11.0) H 12/05/18 00:18 RBC 2.36 M/mm3 (3.65-5.03) L 12/05/18 00:18 Hgb 8.4 gm/dl (11.8-15.2) L 12/05/18 16:35 Hct 27.9 % (35.5-45.6) L 12/05/18 16:35 MCV 93 fl (84-94) 12/05/18 00:18 MCH 28 pg (28-32) 12/05/18 00:18 MCHC 31 % (32-34) L 12/05/18 00:18 RDW 21.4 % (13.2-15.2) H 12/05/18 00:18 Plt Count 199 K/mm3 (140-440) 12/05/18 00:18 Lymph % (Auto) Suede Cleaner 12/05/18 00:18 [place] % (Auto) Suede Cleaner 12/05/18 00:18 Eos % (Auto) Suede Cleaner 12/05/18 00:18 Baso % (Auto) Suede Cleaner 12/05/18 00:18 Lymph # Suede Cleaner 12/05/18 00:18 Crawford # Suede Cleaner 12/05/18 00:18 Eos # Suede Cleaner 12/05/18 00:18 Baso # Suede Cleaner 12/05/18 00:18 Add Manual Diff Complete 12/05/18 00:18 Total Counted 100 12/05/18 00:18 Seg Neutrophils % Suede Cleaner 12/05/18 00:18 Seg Neuts % (Manual) 87.0 % (40.0-70.0) H 12/05/18 00:18 Band Neutrophils % 0 % 12/05/18 00:18 Lymphocytes % (Manual) 5.0 % (13.4-35.0) L 12/05/18 00:18 Reactive Lymphs % (Man) 0 % 12/05/18 00:18 Monocytes % (Manual) 7.0 % (0.0-7.3) 12/05/18 00:18 Eosinophils % (Manual) 0 % (0.0-4.3) 12/05/18 00:18 Basophils % (Manual) 1.0 % (0.0-1.8) 12/05/18 00:18 Metamyelocytes % 0 % 12/05/18 00:18 Myelocytes % 0 % 12/05/18 00:18 Promyelocytes % 0 % 12/05/18 00:18 Blast Cells % 0 % 12/05/18 00:18 Nucleated RBC % Not Reportable 12/05/18 00:18 Seg Neutrophils # Suede Cleaner 12/05/18 00:18 Seg Neutrophils # Man 9.8 K/mm3 (1.8-7.7) H 12/05/18 00:18 Band Neutrophils # 0.0 K/mm3 12/05/18 00:18 Abs Lymphs (Manual) 519 cells/uL (850-3900) L 11/28/18 06:46 Lymphocytes # (Manual) 0.6 K/mm3 (1.2-5.4) L 12/05/18 00:18 Abs React Lymphs (Man) 0.0 K/mm3 12/05/18 00:18 Monocytes # (Manual) 0.8 K/mm3 (0.0-0.8) 12/05/18 00:18 Eosinophils # (Manual) 0.0 K/mm3 (0.0-0.4) 12/05/18 00:18 Basophils # (Manual) 0.1 K/mm3 (0.0-0.1) 12/05/18 00:18 Metamyelocytes # 0.0 K/mm3 12/05/18 00:18 Myelocytes # 0.0 K/mm3 12/05/18 00:18 Promyelocytes # 0.0 K/mm3 12/05/18 00:18 Blast Cells # 0.0 K/mm3 12/05/18 00:18 Pathologist Review 10/15/18 03:14 WBC Morphology Not Reportable 12/05/18 00:18 Hypersegmented Neuts Not Reportable 12/05/18 00:18 Hyposegmented Neuts Not Reportable 12/05/18 00:18 Hypogranular Neuts Not Reportable 12/05/18 00:18 Smudge Cells Not Reportable 12/05/18 00:18 Toxic Granulation Not Reportable 12/05/18 00:18 Toxic Vacuolation Not Reportable 12/05/18 00:18 Dohle Bodies Not Reportable 12/05/18 00:18 Pelger-Huet Anomaly Not Reportable 12/05/18 00:18 Kartik Rods Not Reportable 12/05/18 00:18 Platelet Estimate Consistent w auto 12/05/18 00:18 Clumped Platelets Not Reportable 12/05/18 00:18 Plt Clumps, EDTA Not Reportable 12/05/18 00:18 Large Platelets 1+ 12/05/18 00:18 Giant Platelets Not Reportable 12/05/18 00:18 Platelet Satelliting Not Reportable 12/05/18 00:18 Plt Morphology Comment Not Reportable 12/05/18 00:18 RBC Morphology Not Reportable 12/05/18 00:18 Dimorphic RBCs Not Reportable 12/05/18 00:18 Polychromasia Not Reportable 12/05/18 00:18 Hypochromasia 1+ 12/05/18 00:18 Poikilocytosis 1+ 12/05/18 00:18 Anisocytosis 1+ 12/05/18 00:18 Microcytosis Not Reportable 12/05/18 00:18 Macrocytosis Not Reportable 12/05/18 00:18 Spherocytes Not Reportable 12/05/18 00:18 Pappenheimer Bodies Not Reportable 12/05/18 00:18 Sickle Cells Not Reportable 12/05/18 00:18 Target Cells Not Reportable 12/05/18 00:18 Tear Drop Cells Not Reportable 12/05/18 00:18 Ovalocytes Not Reportable 12/05/18 00:18 Stomatocytes Few 11/10/18 06:54 Helmet Cells Not Reportable 12/05/18 00:18 [place] Bodies Not Reportable 12/05/18 00:18 [place] Rings Not Reportable 12/05/18 00:18 [place] Cells Not Reportable 12/05/18 00:18 Bite Cells Not Reportable 12/05/18 00:18 Crenated Cell Not Reportable 12/05/18 00:18 Elliptocytes Not Reportable 12/05/18 00:18 Acanthocytes (Spur) Not Reportable 12/05/18 00:18 Rouleaux Not Reportable 12/05/18 00:18 Hemoglobin C Crystals Not Reportable 12/05/18 00:18 Schistocytes Not Reportable 12/05/18 00:18 Malaria parasites Not Reportable 12/05/18 00:18 Jv Bodies Not Reportable 12/05/18 00:18 Hem Pathologist Commnt No 12/05/18 00:18 PT 17.7 Sec. (12.2-14.9) H 11/06/18 13:18 INR 1.36 (0.87-1.13) H 11/06/18 13:18 APTT 30.6 Sec. (24.2-36.6) 11/06/18 13:18 Thrombin Time 16.9 Sec. (15.1-19.6) 10/10/18 15:02 Heparin Anti-Xa Level < 0.10 U.I./ml (0.3-0.7) L 11/07/18 21:31 Heparin Anti-Xa, Unfract Negative (Negative) 10/25/18 05:59 POC ABG pH 7.455 (7.35-7.45) H 11/23/18 13:46 POC ABG pCO2 32.0 (35-45) L 10/21/18 09:49 POC ABG pO2 111 (80-105) H 11/23/18 13:46 POC ABG HCO3 17.3 (22-26 mml/L) 11/23/18 13:46 POC ABG Total CO2 18 (23-27mmol/L) 11/23/18 13:46 POC ABG O2 Sat 99 11/23/18 13:46 POC ABG Base Excess -7 ((-2) - (+3)mmol/L) 11/23/18 13:46 FiO2 21 % 11/23/18 13:46 Sodium 139 mmol/L (137-145) 12/05/18 Unknown Potassium 4.5 mmol/L (3.6-5.0) 12/05/18 Unknown Chloride 97.2 mmol/L (98-107) L 12/05/18 Unknown Carbon Dioxide 28 mmol/L (22-30) 12/05/18 Unknown Anion Gap 18 mmol/L 12/05/18 Unknown BUN 13 mg/dL (9-20) 12/05/18 Unknown Creatinine 2.1 mg/dL (0.8-1.5) H 12/05/18 Unknown Estimated GFR 42 ml/min 12/05/18 Unknown BUN/Creatinine Ratio 6 % 12/05/18 Unknown Glucose 153 mg/dL (75-100) H 12/05/18 Unknown POC Glucose 110 (70-105) H 11/23/18 13:35 Osmolality 338 Mosm/kg 10/11/18 17:35 Lactic Acid 1.80 mmol/L (0.7-2.0) 10/12/18 05:59 Uric Acid 13.4 mg/dL (3.5-7.6) H 10/11/18 17:36 Calcium 10.2 mg/dL (8.4-10.2) 12/05/18 Unknown Phosphorus 6.50 mg/dL (2.5-4.5) H 11/24/18 10:53 Magnesium 3.10 mg/dL (1.7-2.3) H 10/18/18 05:03 Iron 147 ug/dL (49-181) 10/11/18 17:36 TIBC 236 mcg/dL (250-450) L 10/11/18 17:36 Ferritin 93159.0 ng/mL (13.0-400.0) H 10/11/18 17:35 Total Bilirubin 0.30 mg/dL (0.1-1.2) 11/19/18 05:31 Direct Bilirubin 0.2 mg/dL (0-0.2) 10/16/18 04:07 Indirect Bilirubin 0.3 mg/dL 10/16/18 04:07 AST 26 units/L (5-40) 11/19/18 05:31 ALT 11 units/L (7-56) 11/19/18 05:31 Alkaline Phosphatase 74 units/L (35-129) 11/19/18 05:31 Ammonia 25.0 umol/L (25-60) 10/17/18 14:59 Lactate Dehydrogenase 925 units/L (91-180) H 10/22/18 05:51 Troponin T 0.357 ng/mL (0.00-0.029) H* 11/06/18 05:54 NT-Pro-B Natriuret Pep 50713 pg/mL (0-450) H 10/10/18 15:42 Total Protein 7.6 g/dL (6.3-8.2) 11/19/18 05:31 Albumin 2.6 g/dL (3.9-5) L 11/19/18 05:31 Albumin/Globulin Ratio 0.5 % 11/19/18 05:31 Triglycerides 306 mg/dL (2-149) H 11/05/18 11:29 Cholesterol 145 mg/dL (50-199) 11/05/18 11:29 LDL Cholesterol Direct 89 mg/dL (50-130) 11/05/18 11:29 HDL Cholesterol 25 mg/dL (40-59) L 11/05/18 11:29 Cholesterol/HDL Ratio 5.80 % 11/05/18 11:29 Serotonin Release Assay See scanned result 10/25/18 05:59 Vitamin B12 912.3 pg/mL (211-911) H 10/14/18 08:51 Folate 8.32 ng/mL (7.3-26.0) 10/14/18 08:51 PTH Intact 118.0 pg/mL (15-65) H 11/24/18 10:53 Urine Color Yellow (Yellow) 12/03/18 18:33 Urine Turbidity Turbid (Clear) 12/03/18 18:33 Urine pH 7.0 (5.0-7.0) 12/03/18 18:33 Ur Specific [place] 1.021 (1.003-1.030) 12/03/18 18:33 Urine Protein 100 mg/dl mg/dL (Negative) 12/03/18 18:33 Urine Glucose (UA) Neg mg/dL (Negative) 12/03/18 18:33 Urine Ketones Neg mg/dL (Negative) 12/03/18 18:33 Urine Blood Sm (Negative) 12/03/18 18:33 Urine Nitrite Neg (Negative) 12/03/18 18:33 Urine Bilirubin Neg (Negative) 12/03/18 18:33 Urine Urobilinogen < 2.0 mg/dL (<2.0) 12/03/18 18:33 Ur Leukocyte Esterase Mod (Negative) 12/03/18 18:33 Urine WBC (Auto) > 182.0 /HPF (0.0-6.0) H 12/03/18 18:33 Urine RBC (Auto) > 182.0 /HPF (0.0-6.0) 12/03/18 18:33 Urine Bacteria (Auto) 4+ /HPF (Negative) 12/03/18 18:33 Urine WBC Clumps 3+ /HPF 12/03/18 18:33 Ur Yeast w Hyphae 1+ /HPF 12/03/18 18:33 Urine Yeast (Budding) 3+ /HPF 12/03/18 18:33 Urine Creatinine 30.8 mg/dL (0.1-20.0) H 10/13/18 04:43 Urine Sodium 106 mmol/L 10/13/18 04:43 Urine Total Protein 75 mg/dL (5-11.8) H 10/13/18 04:43 CSF Appearance Clear 10/16/18 15:00 CSF Color Colorless 10/16/18 15:00 CSF WBC 4 /mm3 (1-10) 10/16/18 15:00 CSF RBC 113 /mm3 (0-0) 10/16/18 15:00 CSF Seg Neutrophils 8.0 % (0-6) 10/16/18 15:00 CSF Lymphocytes % 76.0 % (40-80) 10/16/18 15:00 CSF Reactive Lymphs 2.0 % 10/16/18 15:00 CSF Monocytes % 14.0 % (15-45) 10/16/18 15:00 CSF Eosinophils % 0 % 10/16/18 15:00 CSF Basophils 0 % 10/16/18 15:00 CSF Pathologist Review C 10/16/18 15:00 CSF Glucose 73 mg/dL 10/16/18 15:00 CSF Total Protein 55 mg/dL 10/16/18 15:00 CSF VDRL Nonreactive (Nonreactive) 10/16/18 15:00 Random Vancomycin 21.1 ug/mL (0-40.0) 11/20/18 06:15 Immunofix Electrophor see below 10/11/18 17:36 RENO Screen Negative (Negative) 10/21/18 15:07 Proteinase 3 (PR3) Ab <1.0 AI (<1.0) 10/21/18 15:07 Myeloperoxidase Ab <1.0 AI (<1.0) 10/21/18 15:07 Heparin-induced Plt Ab Negative (Negative) 10/25/18 05:59 UF Heparin High Dose 0 % Release 10/25/18 05:59 VJ UFH Low Dose 0.1 0 % Release 10/25/18 05:59 VJ UFH Low Dose 0.5 14 % Release 10/25/18 05:59 Lymph Enumerat CD4/CD8 0.01 (0.86-5.00) L 11/28/18 06:46 % CD3 Cells 71 % (57-85) 11/28/18 06:46 Absolute CD3 Count 370 cells/uL (840-3060) L 11/28/18 06:46 % CD4 Cells 1 % (30-61) L 11/28/18 06:46 Absolute CD4 Count 6 cells/uL (490-1740) L 11/28/18 06:46 % CD8 Cells 67 % (12-42) H 11/28/18 06:46 Absolute CD8 Count 352 cells/uL (180-1170) 11/28/18 06:46 % CD19 Cells 4 % (6-29) L 11/28/18 06:46 Absolute CD19 Count 23 cells/uL (110-660) L 11/28/18 06:46 RPR Titer 1:32 10/11/18 17:37 RPR Reactive (Nonreactive) 10/11/18 17:37 T.pallidum Ab (FTA-ABS) Reactive (Nonreactive) H 10/12/18 Unknown CMV DNA PCR log cop breaker/mL See scanned result 10/24/18 17:47 Hepatitis A IgM Ab Non-reactive (NonReactive) 11/21/18 09:58 Hep Bs Antigen Non-reactive (Negative) 11/21/18 09:58 Hep B Core IgM Ab Non-reactive (NonReactive) 11/21/18 09:58 Hepatitis C Antibody Non-reactive (NonReactive) 11/21/18 09:58 HIV-1 RNA PCR copies/ml 47 Copies/mL H 11/28/18 06:46 HIV-1 RNA (PCR) log 1.67 Log cps/mL H 11/28/18 06:46 HIV-1 Genotyping See scanned results 10/29/18 19:48 Toxoplasma IgG Ab <7.20 IU/mL (<7.20) 10/13/18 07:54 Miscellaneous Test Flexitest 1 10/31/18 06:43 Blood Type A POSITIVE 12/05/18 10:05 Antibody Screen Negative 12/05/18 10:05 Crossmatch See Detail 12/05/18 10:05 Active Medications - Current Medications Current Medications: Generic Name Dose Route Start Last Admin Trade Name Freq PRN Reason Stop Dose Admin Acetaminophen 500 mg 10/16/18 10:02 12/04/18 18:08 Tylenol PO 500 mg Q6H PRN Administration Fever >101 Albumin Human 25 gm 11/04/18 16:14 Alburx 25% (Albumin) IV CHON PRN Hypotension Albuterol 2.5 mg 11/21/18 07:24 Proventil IH Q4HRT PRN Shortness Of Breath Lipase/Protease/Amylase 1 each 10/11/18 12:58 Pancrebecka Reed 10,500 Unit FEEDTUBE PRN PRN For Clogged Feeding Tube Atovaquone 1,500 mg 11/14/18 10:00 12/06/18 12:02 Mepron PO 1,500 mg QDAY RUBI Administration Darunavir 800 mg 10/30/18 18:00 12/05/18 16:08 Prezista PO 800 mg QDAY RUBI Administration Emtricitabine 200 mg 11/01/18 10:00 12/05/18 16:06 Emtriva PO 200 mg Q48HR RUBI Administration Epoetin Dany 20,000 unit 11/12/18 15:00 12/05/18 12:32 Procrit IV 20,000 unit .MWF RUBI Administration Heparin Sodium (Porcine) 5,000 unit 11/04/18 16:15 12/03/18 17:23 Heparin IV 5,000 unit COHN PRN Administration hemodialysis Heparin Sodium (Porcine) 5,000 unit 11/07/18 22:00 12/06/18 05:46 Heparin SUB-Q 5,000 unit Q8HR RUBI Administration Hydrophilic Ointment 1 applic 10/10/18 17:53 Vaseline Lip Therapy TP Q2HR PRN Dry Lips Sodium Chloride 100 mls @ 999 mls/hr 11/12/18 09:51 Nacl 0.9% IV CHON PRN Hypotension Ceftriaxone Sodium 1 gm in 50 mls @ 100 mls/hr 12/04/18 14:00 12/06/18 12:12 Rocephin/Ns 1 Gm/50 Ml IV 100 mls/hr Q24HR RUBI Administration Protocol Ipratropium [place] 0.5 mg 11/20/18 22:07 Atrovent IH Q4HRT PRN Shortness Of Breath Metoprolol Tartrate 5 mg 10/18/18 14:05 12/02/18 05:47 Lopressor IV 5 mg Q6HR PRN Administration Tachyarrhythmias Metoprolol Tartrate 25 mg 11/24/18 13:00 12/06/18 11:59 Lopressor PO 25 mg Q6HR RUBI Administration Multi-Ingred Cream/Lotion/Oil/Oint 1 applic 10/10/18 17:53 Artificial Tears Ophth Oint OU Q4HR PRN Dry Eye(s) Multivitamins 1 each 10/11/18 10:00 12/06/18 12:01 Theragran Tab PO 1 each DAILY RUBI Administration Ondansetron HCl 4 mg 11/12/18 15:05 Zofran IV Q8H PRN N/V unrelieved by Buddy Pantoprazole Sodium 40 mg 12/03/18 10:00 12/06/18 12:03 Protonix PO 40 mg DAILY RUBI Administration Psyllium Hydrophilic Mucilloid 1 each 11/08/18 18:00 12/06/18 12:03 Metamucil PO 1 each QDAY RUBI Administration Ritonavir 100 mg 10/30/18 18:00 12/06/18 11:58 Norvir PO 100 mg QDAY RUBI Administration Sertraline HCl 50 mg 12/06/18 13:00 Zoloft PO QDAY RUBI Simple Syrup 15 ml 10/11/18 12:58 Simple Syrup FEEDTUBE PRN PRN Hypoglycemia Simple Syrup 30 ml 10/11/18 12:58 Simple Syrup FEEDTUBE PRN PRN Hypoglycemia Sodium Bicarbonate 325 mg 10/11/18 12:58 Sodium Bicarbonate FEEDTUBE PRN PRN For Clogged Feeding Tube Sodium Chloride 10 ml 10/10/18 22:00 12/06/18 12:09 Sodium Chloride Flush Syringe 10 Ml IV 10 ml BID RUBI Administration Sodium Chloride 10 ml 10/10/18 18:12 Sodium Chloride Flush Syringe 10 Ml IV PRN PRN LINE FLUSH Tenofovir Disoproxil Fumarate 300 mg 10/30/18 17:45 12/05/18 17:41 Viread PO 300 mg Q96H RUBI Administration Nutrition/Malnutrition Assess - Dietary Evaluation Nutrition/Malnutrition Findings: Nutrition Notes Start: 10/11/18 11:14 Freq: Status: Active Protocol: Document 12/05/18 13:52 RM (Rec: 12/05/18 13:56 RM [id number]) Nutrition Notes Initial or Follow up Reassessment Current Diagnosis Acute Kidney Injury,CKD(stage I-IV),Decubitus(Pressure Ulcer ),Hypertension,Heart Failure, Stroke Other Pertinent Diagnosis Sacral & R hip PU, Dysphagia, on HD,Acute encephalopathy,HIV /AIDS,Syphilis Current Diet Pureed Labs/Tests Reviewed Pertinent Medications Reviewed Height 5 ft 9 in Weight 50 kg [place] Body Weight (kg) 72.72 BMI 16.2 Subjective/Other Information Per tech pt was NPO earlier so did not have chance to eat breakfast. Recorded PO intake 29% X 4 days. Tech stated pt drank half of nepro today. Percent of energy/protein needs met: 37%/54% Burn Absent Trauma Absent #2 Nutrition Diagnosis Malnutrition Diagnosis Progress(for reassessment Continues documentation) #1 Nutrition Diagnosis Inadequate oral intake Diagnosis Progress(for reassessment Continues documentation) Is patient on ventilator? No Is Patient Ambulatory and/or Out of Bed No REE-([facility]-confined to bed) 1671.888 Kcal/Kg value to use for calculation 40 Approximate Energy Requirements Using 2000 kcal/Kg Calculation Used for Recommendations Kcal/kg Additional Notes Pro needs 1.2-1.5g/k-72g/ day Fluid needs 1ml/kcal Nutrition Intervention Change Diet Order: Pureed diet Add Supplement/Snack (indicate name/kcal Nepro BID /protein ) Provides kCal: 850 Provides Protein (gm) 38 Goal #1 Meet at least 75% of calorie and protein needs via PO and ONS intakes Anticipated Discharge Needs: Pureed, Renal diet Follow-Up By: 12/07/18 Additional Comments Follow for PO and ONS intakes
[2018-12-06] MEDS: ZOLOFT PO SCH ×2 (15:44→15:53)
[2018-12-06] MEDS: PREZISTA PO SCH (15:45)
[2018-12-06] MEDS: TYLENOL PO PRN (15:46)
--- NOTE | 2018-12-06 15:57 | Discharge Summary ---
Providers - Providers Date of Admission: 10/10/18 18:12 Date of discharge: 12/07/18 Attending physician: MICHAEL MACHADO MD 10/10/18 16:51 Speech Therapy Evaluation and Treat [CONS] Routine Reason For Exam: pt delayed swallowing with swallowing eval 10/11/18 08:46 Consult to Physician [CONS] Routine Comment: Consulting Provider: ODELL COREAS Physician Instructions: Reason For Exam: Altered mental status, HIV, 10/11/18 09:13 Consult to Physician [CONS] Routine Comment: Consulting Provider: KLARISSA FOOTE Physician Instructions: Reason For Exam: SHRUTHI 10/11/18 10:21 Consult to Dietitian/Nutrition [CONS] Routine Physician Instructions: Reason For Exam: Reason for Consult: Write/Manage Tube Feeding 10/12/18 07:14 Consult to Physician [CONS] Routine Comment: Consulting Provider: ARIA SOL Physician Instructions: Reason For Exam: Anemia, Thrombocytopenia, HIV 10/12/18 07:16 Consult to Physician [CONS] Routine Comment: Consulting Provider: YULIET CAVANAUGH Physician Instructions: Reason For Exam: severe anemia, Hemoglobin drop, HIV/AIDS 10/12/18 08:31 Consult to Physician [CONS] Routine Comment: Consulting Provider: BERNIE SANCHEZ Physician Instructions: Reason For Exam: Acute bilateral stroke 10/12/18 11:06 Consult to Physician [CONS] Routine Comment: Consulting Provider: CARLOS URENA Physician Instructions: Reason For Exam: Acute renal failure, unable to place regan 10/16/18 12:19 Speech Therapy Evaluation and Treat [CONS] Stat Reason For Exam: s/p intubation 10/19/18 12:55 Speech Therapy Evaluation and Treat [CONS] Routine Reason For Exam: aspiration/dysphagia 10/19/18 12:56 Physical Therapy Evaluation and Treat [CONS] Routine Comment: Reason For Exam: placement 10/28/18 12:24 Consult to Case Management [CONS] Routine Services Needed at Discharge: Other Notified:: kathia Additional Physician Instructions: outpatient dialysis placement 10/29/18 08:00 Consult to Wound/ET Nurse [CONS] Routine Reason For Exam: wound eval, sacrum 11/01/18 10:55 Physical Therapy Evaluation and Treat [CONS] Routine Comment: Reason For Exam: Eval & Treat 11/02/18 17:27 Physical Therapy Evaluation and Treat [CONS] Routine Comment: Reason For Exam: ataxia 11/05/18 11:04 Consult to Physician [CONS] Routine Comment: Consulting Provider: NATALIYA BARBOSA Physician Instructions: Reason For Exam: chest pain 11/05/18 19:00 Speech Therapy Evaluation and Treat [CONS] Routine Reason For Exam: dysphagia 11/07/18 17:04 Consult to Wound/ET Nurse [CONS] Routine Reason For Exam: wound eval 11/14/18 14:24 Consult to Dietitian/Nutrition [CONS] Routine Physician Instructions: Reason For Exam: Reason for Consult: Malnutrition 11/14/18 15:33 Consult to Mental Health [CONS] Routine Reason For Exam: depression Place consult to:: [facility] Notified:: Phone number called:: [phone] Was contact made?: Yes If yes, spoke with:: mercedez Time called:: 17:09 11/16/18 17:59 Physical Therapy Evaluation and Treat [CONS] Routine Comment: Reason For Exam: ataxia 11/27/18 13:05 Consult to Physician [CONS] Routine Comment: Consulting Provider: SHERRELL VEGAS Physician Instructions: Reason For Exam: sacral and right hip decubitus 12/04/18 12:33 Consult to Physician [CONS] Routine Comment: Consulting Provider: ROSE TAN Physician Instructions: Reason For Exam: SP catheter exchange [facility] Reason for admission: AIDS, contractures, UTI, anemia Condition: Stable Hospital course: Patient is 43 YO Male with HIV, hypertension, previous stroke, Nicotine Dependence, presents to ED for evaluation. Patient was confused and lethargic and unable to provide history. He was seen and evaluated in ED and found to be in distress and unable to protect his airway and was therefore intubated, placed on ventilator and admitted to ICU. Patient diagnosed with acute resp failure, renal failure(acute vs acute on chronic) , Encephalopathy, Acidosis. He is followed by ID Physician for HIV/AIDS. His renal failure worsened therefore started on hemodialysis for SHRUTHI due to ATN, now ESRD. He has had a prolonged course, diagnosed with acute resp failure, sepsis , toxic metabolic encephalopathy. He is on HAART. Physical therapy reports high fall risk and the need for maximal assist. patient was extubated on 10/16. Acute encephalopathy Multifactorial ?from hypertensive urgency +/- brain opportunistic infection. DDx: Neurosyphilis, VZV/CMV encephalitis versus SNOW TECHNICIAN lymphoma versus less likely PML v/s ischemic CVA (seems more likely) improving - CT head showed bilateral chronic ischemic changes; Brain MRI showed areas of edema in the basal ganglia and thalami bilaterally, within the jamari and in the cerebral hemispheres bilaterally in the subcortical and deep white matter and in portions of the cortex, areas of encephalomalacia in the basal ganglia bilaterally with evidence of previous hemorrhage or mineral deposition and numerous small foci of acute infarct in the basal ganglia bilaterally, subinsular regions bilaterally and medial temporal lobes bilaterally and possibly in the occipital cortex bilaterally. Brain MRA showed possible dissection versus artifact at the basilar artery. Luminal irregularity at the anterior, middle, and posterior cerebral arteries as well as the carotid siphons may represent mild to moderate atherosclerotic disease. More notable narrowing at the distal right A1 segment. Differential diagnosis includes motion artifact and vasculitis. Vertebral arteries are not clearly visualized. - CSF wbc 4, rbc 113, Seg 8%, Lymph 76%, protein 55, glucose 73 which is not c/w meningitis - RPR reactive 1:32 / FTA ABs reactive, treated with penicillin and ceftriaxone but CSF VDRL Non reactive. - Toxoplasma IgG negative, CSF Toxoplasma PCR: negative - Blood CMV DNA VL=1,370, 3.1 log on ganciclovir - likely reactivation - Repeat CMV DNA PCR 10/24/2018: <200. Off ganciclovir. - Glucan Assay: negative Neurologic consult appreciated mentation improved, and this is likely his new baseline Dysphagia/ moderate malnutrition -MBS 10/23, recommended pureed with nectar thickened liquids Anemia/thrombocytopenia, leukocytosis, coagulopathy; now resolved -Status post platelet (3 units) and prbc (7 units ) transfusion, the patient had only few schistocytes on smear, ADAMS13 91% activity plt count has recovered. Hematology consult appreciated HIV/AIDS, CD4 count 3, HIV viral load 320,000 Sepsis acute bacterial PNA, CMV viremia toxo neg, CSF neg ,Whole blood cmv PCR was positive at 1374 abx and anti- antiviral per ID,continues to have fever on and off chest CT :Patchy airspace disease in the right lower lobe compatible with pneumonia. No evidence of pleural effusion. -repeat CXR : clear lungs and normal bony and soft tissue structures. Patchy airspace disease in the right lower lobe has resolved since 11/07/18 Continues on atovaquone as prophylaxis. Patient has sulfa allergy. Oral candidiasis, nystatin swish and spit ordered x 7 days SHRUTHI/ATN now ESRD; Continue hemodialysis per nephrology. Hyperkalemia, resolved Severe protein calorie malnutrition Acute hypoxic resp failure on MV> 96 hours self extubated 10/16, continue supplemental oxygen prn CTA neg for PE on 11/06 Acute on chronic systolic CHF Stage 2 sacral wound decub, and bilat buttock wounds left buttocks area. The wound is measured at 9.0x2.5. 25% slough noticed to the wound sacral area. The wound is measured at 3.5x3.5.80% necrotic tissue noticed to the wound right buttocks area. The wound is measured at 5.0x3.0. No evidence of infection, but wounds are necrotic, cont wound care Depression MH input appreciated, he is improving Severe debility; PT/OT evaluated him and recommend SNF; but the patient isunfunded 12/05; patient's hemoglobin this morning was 6.7 and was transfused with 1 unit of PRBC during dialysis. will check post transfusion H/H. 12/06 H/H stable 7.8 Discussed with his cousin Keaton Maguire [phone] Father Mike Oconnell [phone] Mother said she will not come to help him and she refused all the plans we proposed and she doesn't have any plan. Patient discharged to hospice care. patient declined Dialysis and HAART. Patient prognosis was poor. Disposition: DC-50 TO HOSPICE (HOME) Time spent for discharge: 45 minutes - Discharge Diagnoses (1) Acute renal failure on dialysis Status: Acute (2) Acute kidney injury Status: Acute (3) Acute respiratory failure Status: Acute Qualifiers: Respiratory failure complication: hypoxia Qualified Code(s): J96.01 - Acute respiratory failure with hypoxia (4) Anemia Status: Acute Qualifiers: Anemia type: due to chronic kidney disease Chronic kidney disease stage: unspecified stage Qualified Code(s): N18.9 - Chronic kidney disease, unspecified; D63.1 - Anemia in chronic kidney disease (5) Elevated LFTs Status: Acute (6) HIV (human immunodeficiency virus infection) Status: Acute Qualifiers: HIV symptom status: symptomatic Qualified Code(s): B20 - Human immunodeficiency virus [HIV] disease (7) History of CVA (cerebrovascular accident) Status: Acute (8) Hyperkalemia, diminished renal excretion Status: Acute (9) Hypertensive emergency Status: Acute (10) Hypokalemia Status: Acute (11) Hyponatremia Status: Acute (12) Lactic acidosis Status: Acute (13) Occult blood positive stool Status: Acute (14) Sepsis Status: Acute Qualifiers: Sepsis type: sepsis due to unspecified organism Qualified Code(s): A41.9 - Sepsis, unspecified organism (15) Thrombocytopenia associated with AIDS Status: Chronic (16) Unstageable pressure ulcer of sacral region Status: Chronic (17) Elevated LFTs Status: Acute Core Measure Documentation - Palliative Care Palliative Care/ Comfort Measures: Hospice Care - Core Measures Any of the following diagnoses?: none Exam - Physical Exam Narrative exam: Not in cardiopulmonary distress. The patient is emaciated. Vital signs as documented. Head exam is unremarkable. Mouth oral trush. No scleral icterus . Neck is without jugular venous distension, thyromegaly, or carotid bruits. Lungs are clear to auscultation. Cardiac exam reveals regular rate and Rhythm. Abdominal exam reveals normal bowel sounds. Extremities contracted. SNOW TECHNICIAN: Alert and very weak, he understand and answers questions nodding head. He whispers but difficult to understand. - Constitutional Vitals: Temp Pulse Resp BP Pulse Ox 100.7 F H 107 H 20 125/88 100 12/06/18 13:46 12/06/18 13:46 12/06/18 13:46 12/06/18 13:46 12/06/18 13:46 Plan Activity: advance as tolerated Weight Bearing Status: Weight Bear as Tolerated Diet: advance as tolerated Follow up with: ISAURA BORDEN MD [Primary Care Provider] - 7 Days
[2018-12-07] MEDS: TYLENOL PO PRN (00:32)
[2018-12-07] MEDS: LOPRESSOR PO SCH ×4 (00:32→16:51)
[2018-12-07 01:03] LABS: Hematocrit 24.9 % (35.5-45.6); Hemoglobin 7.8 gm/dl (11.8-15.2); Mean Corpuscular HGB Conc 31 % (32-34); Mean Corpuscular Volume 92 fl (84-94); Platelet Count 197 K/mm3 (140-440); Red Blood Count 2.71 M/mm3 (3.65-5.03); Red Cell Distribution Width 21.4 % (13.2-15.2)
[2018-12-07 03:38] LABS: Band Neutrophils # (Manual) 0.9 K/mm3; Basophils % (Manual) 0 % (0.0-1.8); Eosinophils % (Manual) 0 % (0.0-4.3); Total Cells Counted 100
[2018-12-07 03:39] LABS: Macrocytosis 1+; Target Cells Few
[2018-12-07 03:40] LABS: Large Platelets 1+; Platelet Estimate Consistent w Auto
[2018-12-07] MEDS: HEPARIN SUB-Q SCH ×2 (06:23→16:14)
[2018-12-07] MEDS: EMTRIVA PO SCH ×2 (11:01→16:11)
[2018-12-07] MEDS: MEPRON PO SCH ×2 (11:01→16:11)
[2018-12-07] MEDS: NORVIR PO SCH ×2 (11:02→16:11)
[2018-12-07] MEDS: TIVICAY PO SCH ×3 (11:02→16:12)
[2018-12-07] MEDS: METAMUCIL PO SCH (11:02)
[2018-12-07] MEDS: PROTONIX PO SCH (11:02)
[2018-12-07] MEDS: ZOLOFT PO SCH (11:02)
[2018-12-07] MEDS: PREZISTA PO SCH ×2 (11:02→16:13)
[2018-12-07] MEDS: PROCRIT IV SCH (12:28)
[2018-12-07] MEDS ORDERED: NACL 0.9 (PRIMING MACHINE ONLY DIALYSIS) MC ONE (12:35)
[2018-12-07 13:42] VITALS: BP 149/108
--- NOTE | 2018-12-07 14:41 | Progress Note ---
Assessment and Plan Cultures: Cultures: Blood culture 10/10/2018 no growth. Sputum culture 10/10/2018 Ana Paula albicans. Crypto Ag 10/10/2018 neg. Urine culture 10/13/2018 no growth. Blood culture 10/17/2018 no growth. Blood culture 10/20/2018: no growth Stool Occult Blood 10/23/18: positive Blood culture 10/29/18: negative Urine culture 10/31/18: Ana Paula Blood culture 11/05/18: No growth Blood culture 11/14/18: no growth Blood culture 12/03/18: no growth Urine culture 12/03/18 : 10- 100,000 CFU/ml of normal skin eric Assessment: 43 y/o male with history of HIV (unknown CD4/VL/ART intake), HTN, CVA 6 months ago at [facility], Nicotine Dependence, Malnutrition; admitted on 10/10/2018 due to AMS (confusion/lethargy) and slurred speech for 24 h: 1) SIRS versus sepsis: Fevers continuing. likely from UTI. Remains tachycardic. Had severe anemia s/p transfusion. - CXR neg - BNP 70K - Troponin 0.2 - LDH 2242 -chest CT :Patchy airspace disease in the right lower lobe compatible with p neumonia. No evidence of pleural effusion. -repeat CXR : clear lungs and normal bony and soft tissue structures. Patchy airspace disease in the right lower lobe has resolved since 11/07/18 2) Acute hypoxemic respiratory failure:resolved 3) Acute encephalopathy: Improved.; multifactorial ?from hypertensive urgency +/- brain opportunistic infection. DDx: Neurosyphilis, VZV/CMV encephalitis scott dannielle OCEANOGRAPHY PROFESSOR lymphoma versus less likely PML v/s ischemic CVA (seems more likely) - CT head showed bilateral chronic ischemic changes. - Brain MRI showed areas of edema in the basal ganglia and thalami bilaterally, within the jamari and in the cerebral hemispheres bilaterally in the subcortical and deep white matter and in portions of the cortex, areas of encephalomalacia in the basal ganglia bilaterally with evidence of previous hemorrhage or mineral deposition and numerous small foci of acute infarct in the basal ganglia bilaterally, subinsular regions bilaterally and medial temporal lobes bilaterally and possibly in the occipital cortex bilaterally. - Brain MRA showed possible dissection versus artifact at the basilar artery. Luminal irregularity at the anterior, middle, and posterior cerebral arteries as well as the carotid siphons may represent mild to moderate atherosclerotic dise ase. More notable narrowing at the distal right A1 segment. Differential diagnosis includes motion artifact and vasculitis. Vertebral arteries are not clearly visualized. - CSF wbc 4, rbc 113, Seg 8%, Lymph 76%, protein 55, glucose 73 which is not c/w meningitis - RPR reactive 1:32 / FTA ABs reactive, treated with penicillin and ceftriaxone but CSF VDRL Non reactive. - Toxoplasma IgG negative, CSF Toxoplasma PCR: negative - Blood CMV DNA VL=1,370, 3.1 log on ganciclovir - likely reactivation - Repeat CMV DNA PCR 10/24/2018: <200. Off ganciclovir. - Glucan Assay: negative 4) Anemia/thrombocytopenia: improving. 5) Acute on CKD or SHRUTHI ? unclear etiology: on HD. RIJ permacath placement 6) DM: uncontrolled. 7) HIV/AIDS: VL 320,000 / CD4=3 on 10/11/2018 --> VL=47 / CD4=6 on 11/28/2018. 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 Started HIV treatment on 10/30/2018. Continue HIV therapy,renally adjusted TDF, FTC along with dolutegravir and ritonavir boosted darunavir. 8) Decubitus Ulcers: Left buttocks wound measures 9.0 x 2.5, Sacral wound measures 3.5 x 3.5, 80 % necrotic tissue, Right buttocks wound measures 5.0 x 3.[address] Go to perform bedside debridement of sacral pressure ulcer 11/29/18. 9) UTI: with a SP catheter 10/12/18, S/p catheter exchange on 12/06/[address] Paula. Urine culture growing 10- 100,000 of normal skin eric. U/A with pyuria WBC >182, Moderate LE. Recommendations: Internal medicine to w/o persistent tachycardia not better after transfusion f/u repeat blood culture continue atovaquone 750 mg BID continue HIV therapy: renally adjusted TDF, FTC along with dolutegravir and ritonavir boosted darunavir continue wound care continue ceftriaxone 1 gm every 24 h, D4 of 5 Will follow Praveena Colunga MD Infectious Diseases Senior Solutions Engineer [facility] M [phone] O [phone] Subjective Date of service: 12/07/18 Principal diagnosis: anemia Interval history: Patient is alert follows commands no fever, denies cough, SOB, N/D/V Review of Systems: unable to obtain Objective - Exam Narrative Exam: General appearance: alert in NAD, follows commands on HD Eyes: anicteric sclerae, moist conjunctivae; no lid-lag; PERRLA HENT: Atraumatic; oropharynx limited Neck: Trachea midline; supple, no thyromegaly or lymphadenopathy Lungs: CTA, with normal respiratory effort and no intercostal retractions CV: tachycardic Abdomen: Soft, non-tender;+SP cath Extremities: No peripheral edema or extremity lymphadenopathy Skin: Normal temperature, turgor and texture; no rash, ulcers or subcutaneous nodules Psych: alert no agitated Neuro: alert follows commands Right IJ HD - Constitutional Vitals: Vital Signs Temp Pulse Resp BP Pulse Ox 98.7 F 145 H 22 149/108 99 12/07/18 13:19 12/07/18 13:19 12/07/18 13:19 12/07/18 13:19 12/07/18 13:19 Temperature -Last 24 Hours Temperature 98.7 F Temperature 98.2 F Temperature 98.2 F Temperature 98.2 F Temperature 98.0 F Temperature 98.1 F Temperature 98.1 F Temperature 99.8 F Temperature 99.8 F - Labs CBC & Chem 7: 12/07/18 00:25 12/05/18 Unknown Labs: Abnormal lab results 11/08/18 12/05/18 12/07/18 Range/Units 11:28 10:05 00:25 RBC 2.71 L (3.65-5.03) M/mm3 Hgb 7.8 L (11.8-15.2) gm/dl Hct 24.9 L (35.5-45.6) % MCHC 31 L (32-34) % RDW 21.4 H (13.2-15.2) % Seg Neuts % (Manual) 76.0 H (40.0-70.0) % Lymphocytes % (Manual) 9.0 L (13.4-35.0) % Nucleated RBC % 9.0 H (0.0-0.9) % Lymphocytes # (Manual) 0.8 L (1.2-5.4) K/mm3 Crossmatch See Detail See Detail
--- NOTE | 2018-12-07 16:22 | Progress Note ---
Assessment and Plan - Patient Problems (1) Acute kidney injury Current Visit: Yes Status: Acute Plan to address problem: Acute kidney injury : severe Now dialysis dependent. I reviewed renal Ultrasound with 10.1cm and 10.8cm kidneys bilateral echogenic Possible aetiologies of Acute kidney injury is likely 2/2 acute tubular injury ,possible underlying HIV associated nephropathy cannot be excluded . He is currently oliguric currently dialysis dependent. Currently has tunneled dialysis catheter appreciate Vascular surgery assistance. Avoid Nephrotoxic medications. He has decided to go home on hospice without dialysis health and social care teacher has made arrangements Discussed with health and social care teacher who is in contact with the patient's family Discussed without dialysis he would he wants to proceed with hospice without dialysis (2) Anemia Current Visit: Yes Status: Acute Qualifiers: Anemia type: due to chronic kidney disease Chronic kidney disease stage: unspecified stage Qualified Code(s): N18.9 - Chronic kidney disease, unspecified; D63.1 - Anemia in chronic kidney disease Plan to address problem: Moderate severe anemia 2/2 CKD and ongoing inflammation transfuse as needed. Hb: 7.7g/dl Epogen 20,000 units Monitor CBC. (3) HIV (human immunodeficiency virus infection) Current Visit: Yes Status: Acute Qualifiers: HIV symptom status: symptomatic Qualified Code(s): B20 - Human immunodeficiency virus [HIV] disease Plan to address problem: HIV/ AIDS - has been treated for infection Still spiking fevers 100.7F past 24 hours ?UTI - infectious disease on board . (4) Tachycardia Current Visit: Yes Status: Acute Plan to address problem: Past Persistent febrile episodes EKG reviewed sinus tachycardia Subjective Principal diagnosis: anemia Interval history: 43 year old gentleman with medical history significant for HIV/AIDS admitted with Sepsis , acute hypoxemic respiratory failure , Encephalopathy , transaminitis and worsening renal failure . Patient seen this morning Plan for transfusion by primary team. Has a right IJ tunneled dialysis catheter has a regan catheter . I attest I saw the patient on dialysis I had an extensive discussion with the patient today I have previously spoken to social work has arranged for patient to go home on hospice without dialysis I discussed with the patient's regarding the need for dialysis to preserve life and the fact that without dialysis he would he tells me he understands this He answers in the affirmative that he would like to discontinue dialysis on discharge from the hospital he is currently has full-blown AIDS and given his significant comorbidities this is understandable decision Objective - Vital Signs Vital signs: Vital Signs - 12hr 12/07/18 12/07/18 12/07/18 05:43 06:29 08:06 Temperature 98.1 F Pulse Rate 125 H 119 H Respiratory 20 Rate Blood Pressure 153/107 Blood Pressure 160/90 [Left] O2 Sat by Pulse 100 Oximetry 12/07/18 12/07/18 12/07/18 08:30 09:00 09:06 Temperature 98.1 F 98.0 F Pulse Rate 126 H 127 H 127 H Respiratory 20 20 Rate Blood Pressure 146/107 152/121 152/121 Blood Pressure [Left] O2 Sat by Pulse 100 100 Oximetry 12/07/18 12/07/18 12/07/18 09:15 09:30 09:45 Temperature 98.2 F Pulse Rate 125 H 126 H 128 H Respiratory 20 Rate Blood Pressure 147/114 145/110 152/112 Blood Pressure [Left] O2 Sat by Pulse 100 Oximetry 12/07/18 12/07/18 12/07/18 10:00 10:15 10:30 Temperature Pulse Rate 130 H 132 H 132 H Respiratory Rate Blood Pressure 141/110 154/109 139/101 Blood Pressure [Left] O2 Sat by Pulse Oximetry 12/07/18 12/07/18 12/07/18 10:45 11:00 11:06 Temperature 98.2 F Pulse Rate 133 H 138 H 120 H Respiratory 20 Rate Blood Pressure 142/101 132/95 149/111 Blood Pressure [Left] O2 Sat by Pulse Oximetry 12/07/18 12/07/18 12/07/18 11:15 11:30 12:15 Temperature 98.2 F Pulse Rate 133 H 133 H 132 H Respiratory 20 Rate Blood Pressure 142/110 143/107 149/115 Blood Pressure [Left] O2 Sat by Pulse Oximetry 12/07/18 13:19 Temperature 98.7 F Pulse Rate 145 H Respiratory 22 Rate Blood Pressure 149/108 Blood Pressure [Left] O2 Sat by Pulse 99 Oximetry - General Appearance General appearance: cachectic, chronically ill, frail EENT: mucous membranes dry Neck: no JVD Respiratory: Present: Decreased Breath Sounds Cardiology: regular, S1S2 Gastrointestinal: normal, normoactive bowel sounds Integumentary: no rash Neurologic: no focal deficit, other (awake and alert) Psychiatric: mood/affect appropriate - Lab 12/07/18 00:25 12/05/18 Unknown Most recent lab results Calcium 10.2 mg/dL (8.4-10.2) 12/05/18 Unknown Phosphorus 6.50 mg/dL (2.5-4.5) H 11/24/18 10:53 Magnesium 3.10 mg/dL (1.7-2.3) H 10/18/18 05:03 Urine Creatinine 30.8 mg/dL (0.1-20.0) H 10/13/18 04:43 Urine Sodium 106 mmol/L 10/13/18 04:43 Urine Total Protein 75 mg/dL (5-11.8) H 10/13/18 04:43 Medications & Allergies - Medications Allergies/Adverse Reactions: Allergies Sulfa (Sulfonamide Antibiotics) Allergy (Verified 10/10/18 16:54) Unknown Home Medications: Home Medications Medication Instructions Recorded Confirmed Last Taken Type Acetaminophen [Tylenol] 1,000 mg PO Q6HR 10/10/18 10/10/18 Unknown History Amlodipine Besylate [Norvasc] 10 mg PO QDAY 10/10/18 10/10/18 Unknown History Aspirin [Adult Aspirin] 81 mg PO DAILY 10/10/18 10/10/18 Unknown History Atorvastatin [Lipitor Tab] 80 mg PO DAILY 10/10/18 10/10/18 Unknown History Losartan [Cozaar] 100 mg PO QDAY 10/10/18 10/10/18 Unknown History Multivitamin [Multiple Vitamins] 1 each PO DAILY 10/10/18 10/10/18 Unknown History hydroCHLOROthiazide [HCTZ] 25 mg PO QDAY 10/10/18 10/10/18 Unknown History Active Medications: Generic Name Dose Route Start Last Admin Trade Name Freq PRN Reason Stop Dose Admin Acetaminophen 500 mg 10/16/18 10:02 12/07/18 00:32 Tylenol PO 500 mg Q6H PRN Administration Fever >101 Albumin Human 25 gm 11/04/18 16:14 Alburx 25% (Albumin) IV CHON PRN Hypotension Albuterol 2.5 mg 11/21/18 07:24 Proventil IH Q4HRT PRN Shortness Of Breath Lipase/Protease/Amylase 1 each 10/11/18 12:[address] 10,500 Unit FEEDTUBE PRN PRN For Clogged Feeding Tube Atovaquone 1,500 mg 11/14/18 10:00 12/07/18 16:11 Mepron PO 1,500 mg QDAY RUBI Administration Darunavir 800 mg 10/30/18 18:00 12/07/18 16:13 Prezista PO 800 mg QDAY RUBI Administration Emtricitabine 200 mg 11/01/18 10:00 12/07/18 16:11 Emtriva PO 200 mg Q48HR RUBI Administration Epoetin Dany 20,000 unit 11/12/18 15:00 12/07/18 12:28 Procrit IV 20,000 unit .MWF RUBI Administration Heparin Sodium (Porcine) 5,000 unit 11/04/18 16:15 12/03/18 17:23 Heparin IV 5,000 unit CHON PRN Administration hemodialysis Heparin Sodium (Porcine) 5,000 unit 11/07/18 22:00 12/07/18 16:14 Heparin SUB-Q 5,000 unit Q8HR RUBI Administration Hydrophilic Ointment 1 applic 10/10/18 17:53 Vaseline Lip Therapy TP Q2HR PRN Dry Lips Sodium Chloride 100 mls @ 999 mls/hr 11/12/18 09:51 Nacl 0.9% IV CHON PRN Hypotension Ceftriaxone Sodium 1 gm in 50 mls @ 100 mls/hr 12/04/18 14:00 12/06/18 12:12 Rocephin/Ns 1 Gm/50 Ml IV 100 mls/hr Q24HR RUBI Administration Protocol Ipratropium Comfort 0.5 mg 11/20/18 22:07 Atrovent IH Q4HRT PRN Shortness Of Breath Metoprolol Tartrate 5 mg 10/18/18 14:05 12/02/18 05:47 Lopressor IV 5 mg Q6HR PRN Administration Tachyarrhythmias Metoprolol Tartrate 25 mg 11/24/18 13:00 12/07/18 06:22 Lopressor PO 25 mg Q6HR RUBI Administration Multi-Ingred Cream/Lotion/Oil/Oint 1 applic 10/10/18 17:53 Artificial Tears Ophth Oint OU Q4HR PRN Dry Eye(s) Multivitamins 1 each 10/11/18 10:00 12/06/18 12:01 Theragran Tab PO 1 each DAILY RUBI Administration Ondansetron HCl 4 mg 11/12/18 15:05 Zofran IV Q8H PRN N/V unrelieved by Buddy Pantoprazole Sodium 40 mg 12/03/18 10:00 12/07/18 11:02 Protonix PO Not Given DAILY RUBI Psyllium Hydrophilic Mucilloid 1 each 11/08/18 18:00 12/07/18 11:02 Metamucil PO Not Given QDAY RUBI Ritonavir 100 mg 10/30/18 18:00 12/07/18 16:11 Norvir PO 100 mg QDAY RUBI Administration Sertraline HCl 50 mg 12/06/18 13:00 12/07/18 11:02 Zoloft PO Not Given QDAY RUBI Simple Syrup 15 ml 10/11/18 12:58 Simple Syrup FEEDTUBE PRN PRN Hypoglycemia Simple Syrup 30 ml 10/11/18 12:58 Simple Syrup FEEDTUBE PRN PRN Hypoglycemia Sodium Bicarbonate 325 mg 10/11/18 12:58 Sodium Bicarbonate FEEDTUBE PRN PRN For Clogged Feeding Tube Sodium Chloride 10 ml 10/10/18 22:00 12/06/18 23:02 Sodium Chloride Flush Syringe 10 Ml IV 10 ml BID RUBI Administration Sodium Chloride 10 ml 10/10/18 18:12 Sodium Chloride Flush Syringe 10 Ml IV PRN PRN LINE FLUSH Tenofovir Disoproxil Fumarate 300 mg 10/30/18 17:45 12/05/18 17:41 Viread PO 300 mg Q96H RUBI Administration
[2018-12-07] MEDS: ROCEPHIN/NS 1 GM/50 ML 1 GM/50 ML BAG IV SCH (16:49)
[2018-12-07] MEDS: THERAGRAN Tab PO SCH (16:50)
== END 2018-12-07 17:19 | disposition hospice, home (50) | DRG 969 ==
LOC: ED 14:46 → CC1 18:12 → IMCU 10-18 17:59 → 4A 10-20 00:04 → IMCU 10-20 17:30 → 3A 10-24 21:25
PROVIDERS: ADMIT Internal Medicine; ATTEND Internal Medicine
PROC: 4A033R1 Measurement of Arterial Saturation, Peripheral, Percutaneous Approach (ICD-10-PCS; 2018-10-10)
PROC: 5A1955Z Respiratory Ventilation, Greater than 96 Consecutive Hours (ICD-10-PCS; 2018-10-10)
PROC: 0BH17EZ Insertion of Endotracheal Airway into Trachea, Via Natural or Artificial Opening (ICD-10-PCS; 2018-10-10)
PROC: 06HM33Z Insertion of Infusion Device into Right Femoral Vein, Percutaneous Approach (ICD-10-PCS; principal; 2018-10-12)
PROC: B54BZZA Ultrasonography of Right Lower Extremity Veins, Guidance (ICD-10-PCS; 2018-10-12)
PROC: 0T9B30Z Drainage of Bladder with Drainage Device, Percutaneous Approach (ICD-10-PCS; 2018-10-12)
PROC: 30233N1 Transfusion of Nonautologous Red Blood Cells into Peripheral Vein, Percutaneous Approach (ICD-10-PCS; 2018-10-12)
PROC: 30233R1 Transfusion of Nonautologous Platelets into Peripheral Vein, Percutaneous Approach (ICD-10-PCS; 2018-10-12)
PROC: 009U3ZZ Drainage of Spinal Canal, Percutaneous Approach (ICD-10-PCS; 2018-10-18)
PROC: B01B1ZZ Fluoroscopy of Spinal Cord using Low Osmolar Contrast (ICD-10-PCS; 2018-10-18)
PROC: 02HV33Z Insertion of Infusion Device into Superior Vena Cava, Percutaneous Approach (ICD-10-PCS; 2018-11-23)
PROC: 0KBP0ZZ Excision of Left Hip Muscle, Open Approach (ICD-10-PCS; 2018-11-29)
PROC: 5A1D70Z Performance of Urinary Filtration, Intermittent, Less than 6 Hours Per Day (ICD-10-PCS; 2018-12-03)
PROC: 5A1D70Z Performance of Urinary Filtration, Intermittent, Less than 6 Hours Per Day (ICD-10-PCS; 2018-12-05)
PROC: 5A1D70Z Performance of Urinary Filtration, Intermittent, Less than 6 Hours Per Day (ICD-10-PCS; 2018-12-07)
DX: A41.9 Sepsis, unspecified organism (principal); L89.153 Pressure ulcer of sacral region, stage 3; B20 Human immunodeficiency virus [HIV] disease; J96.01 Acute respiratory failure with hypoxia; N17.0 Acute kidney failure with tubular necrosis; I63.9 Cerebral infarction, unspecified; E43 Unspecified severe protein-calorie malnutrition; J15.9 Unspecified bacterial pneumonia; G93.41 Metabolic encephalopathy; N18.6 End stage renal disease; I50.23 Acute on chronic systolic (congestive) heart failure; I16.1 Hypertensive emergency; N39.0 Urinary tract infection, site not specified; I13.2 Hypertensive heart and chronic kidney disease with heart failure and with stage 5 chronic kidney disease, or end stage renal disease; F17.210 Nicotine dependence, cigarettes, uncomplicated; D69.6 Thrombocytopenia, unspecified; E87.5 Hyperkalemia; E78.5 Hyperlipidemia, unspecified; I16.0 Hypertensive urgency; R33.9 Retention of urine, unspecified; D63.1 Anemia in chronic kidney disease; Z51.5 Encounter for palliative care; N35.919 Unspecified urethral stricture, male, unspecified site; R13.10 Dysphagia, unspecified; R65.20 Severe sepsis without septic shock; F17.200 Nicotine dependence, unspecified, uncomplicated; E11.22 Type 2 diabetes mellitus with diabetic chronic kidney disease; F32.9 Major depressive disorder, single episode, unspecified; Z99.2 Dependence on renal dialysis; Z91.19 Patient's noncompliance with other medical treatment and regimen; Z82.49 Family history of ischemic heart disease and other diseases of the circulatory system; Z86.73 Personal history of transient ischemic attack (TIA), and cerebral infarction without residual deficits; Z88.2 Allergy status to sulfonamides
CPT/HCPCS: 36415; 36556; 36558; 36600; 62270; 70450; 70544; 70551; 71045; 71046; 71275; 74018; 74176; 74230; 76700; 76770; 77001; 77003; 80048; 80053; 80061; 80074; 80076; 80202; 81001; 82024; 82140; 82270; 82570; 82607; 82728; 82747; 82803; 82947; 82962; 83550; 83615; 83735; 83880; 83930; 83970; 84100; 84132; 84156; 84160; 84300; 84484; 84550; 85007; 85014; 85018; 85025; 85027; 85049; 85520; 85610; 85670; 85730; 86021; 86022; 86038; 86334; 86403; 86592; 86593; 86777; 86780; 86850; 86900; 86901; 86920; 87040; 87070; 87086; 87205; 87207; 87497; 87536; 87901; 89051; 93005; 93010; 93306; 93312; 93320; 93325; 94002; 94003; 94640; 94660; 94760; 95819; 96361; 96374; 96375; G0378; A9270-GY; C1750; C1752; C1769; C9113; J0133; J0360; J0690; J0692; J0696; J0885; J1450; J1570; J1630; J1644; J1940; J1956; J2060; J2250; J2540; J2543; J2704; J3010; J3370; J7030; J7040; J7050; J7060; J7070; J7131; P9016; P9035; P9047; Q9967